=== PATIENT | female | born 1945 | race Caucasian/White ===

== ENCOUNTER 2016-03-03 | Inpatient (IN) | END 2017-03-02 23:59 | disposition other institution (70) | DRG 189 | DX: J96.10 Chronic respiratory failure, unspecified whether with hypoxia or hypercapnia (principal); G93.40 Encephalopathy, unspecified; R53.2 Functional quadriplegia; D68.59 Other primary thrombophilia; G20 Parkinson's disease; N39.0 Urinary tract infection, site not specified; D45 Polycythemia vera; Z93.0 Tracheostomy status; G93.81 Temporal sclerosis; I69.90 Unspecified sequelae of unspecified cerebrovascular disease; Z93.1 Gastrostomy status; M06.9 Rheumatoid arthritis, unspecified; E03.9 Hypothyroidism, unspecified; K21.9 Gastro-esophageal reflux disease without esophagitis; D63.8 Anemia in other chronic diseases classified elsewhere; Z86.11 Personal history of tuberculosis; Z90.89 Acquired absence of other organs; M81.0 Age-related osteoporosis without current pathological fracture; M65.30 Trigger finger, unspecified finger; E78.1 Pure hyperglyceridemia ==

== ENCOUNTER 2017-03-03 | Inpatient (IN) | END 2018-03-02 23:59 | disposition still patient (30) | DRG 189 | DX: J96.11 Chronic respiratory failure with hypoxia (principal); R53.2 Functional quadriplegia; J18.9 Pneumonia, unspecified organism; G93.40 Encephalopathy, unspecified; D68.59 Other primary thrombophilia; N39.0 Urinary tract infection, site not specified; G20 Parkinson's disease; D45 Polycythemia vera; Z93.0 Tracheostomy status; G93.81 Temporal sclerosis; Z93.1 Gastrostomy status; M06.9 Rheumatoid arthritis, unspecified; E03.9 Hypothyroidism, unspecified; K21.9 Gastro-esophageal reflux disease without esophagitis; D63.8 Anemia in other chronic diseases classified elsewhere; Z86.11 Personal history of tuberculosis; Z90.89 Acquired absence of other organs; Z51.5 Encounter for palliative care; M81.0 Age-related osteoporosis without current pathological fracture; M65.30 Trigger finger, unspecified finger; E78.1 Pure hyperglyceridemia; E11.9 Type 2 diabetes mellitus without complications; F09 Unspecified mental disorder due to known physiological condition; G89.4 Chronic pain syndrome; I27.20 Pulmonary hypertension, unspecified; I69.398 Other sequelae of cerebral infarction; K52.9 Noninfective gastroenteritis and colitis, unspecified; K80.20 Calculus of gallbladder without cholecystitis without obstruction; R47.02 Dysphasia; R13.10 Dysphagia, unspecified ==

== ENCOUNTER → 2017-12-10 | Outpatient (CLI) | payer OTHER ==
[~2017-12-10] MED LIST: ACET-2154 GT; ACID1TAB13 GT; ALBU2.5V13 NEB; ALEN70TA47 GT; AMIN30LI2 GT; ASCO500T10 GT; CALC-11 GT; CARB-93 GT; COD28PAS TP; DIPH12.56 GT; DIPH30CR2 TP; ENOX40DI SQ; FAMO20TA8 GT; IPRA0.2S6 NEB; LEVO50TA8 GT; MERO500V IV; MULT-1141 GT; NUT.237L30 GT; NYST15CR38 TP; OMEG1CAP GT; PETR368J TP; POLY15DR57 OP; TRIA15CR2 TP
== END | disposition home or self-care (01) ==
LOC: CT 10:24
PROVIDERS: ATTEND Nurse Practitioner Acute Care
DX: K80.20 Calculus of gallbladder without cholecystitis without obstruction (principal); I70.0 Atherosclerosis of aorta; K52.9 Noninfective gastroenteritis and colitis, unspecified; Z93.1 Gastrostomy status

== ENCOUNTER 2018-03-03 | Inpatient (IN) | END 2019-03-02 23:59 | disposition still patient (30) | DRG 189 | DX: J96.11 Chronic respiratory failure with hypoxia (principal); R53.2 Functional quadriplegia; G93.40 Encephalopathy, unspecified; D68.59 Other primary thrombophilia; G93.1 Anoxic brain damage, not elsewhere classified; G20 Parkinson's disease; D45 Polycythemia vera; Z93.0 Tracheostomy status; G93.81 Temporal sclerosis; Z93.1 Gastrostomy status; M06.9 Rheumatoid arthritis, unspecified; E03.9 Hypothyroidism, unspecified; K21.9 Gastro-esophageal reflux disease without esophagitis; D63.8 Anemia in other chronic diseases classified elsewhere; Z86.11 Personal history of tuberculosis; Z90.89 Acquired absence of other organs; Z51.5 Encounter for palliative care; M81.0 Age-related osteoporosis without current pathological fracture; M65.30 Trigger finger, unspecified finger; E78.1 Pure hyperglyceridemia; E11.9 Type 2 diabetes mellitus without complications; F09 Unspecified mental disorder due to known physiological condition; G89.4 Chronic pain syndrome; I27.20 Pulmonary hypertension, unspecified; I69.398 Other sequelae of cerebral infarction; R47.02 Dysphasia; R13.10 Dysphagia, unspecified; K52.9 Noninfective gastroenteritis and colitis, unspecified; K80.20 Calculus of gallbladder without cholecystitis without obstruction; R21 Rash and other nonspecific skin eruption; Z86.61 Personal history of infections of the central nervous system ==

== ENCOUNTER 2019-09-30 11:45 | Day surgery (SDC) | payer OTHER ==
[~2019-09-30 11:45] MED LIST changes: -ALEN70TA47 GT; +ALEN70TA78 GT; -MERO500V IV; +MERO500V21 IV; +POLY15DR31 OP; -POLY15DR57 OP
[2019-09-30] MEDS ORDERED: ETOMIDATE 20 MG/10 ML VIAL IV ONE (11:46)
[2019-09-30] MEDS ORDERED: ESMOLOL HCL 100 MG/10 ML VIAL IV ONE (11:46)
[2019-09-30] MEDS ORDERED: IV NORMAL SALINE 1000 ML BAG IV ONE (11:46)
== END 2019-09-30 14:05 | disposition still patient (30) ==
LOC: DS 11:45
PROVIDERS: ATTEND Internal Medicine
DX: Z43.1 Encounter for attention to gastrostomy (principal); I50.9 Heart failure, unspecified; F32.9 Major depressive disorder, single episode, unspecified; E11.9 Type 2 diabetes mellitus without complications; M10.9 Gout, unspecified; M06.9 Rheumatoid arthritis, unspecified; Z79.899 Other long term (current) drug therapy; Z87.440 Personal history of urinary (tract) infections; Z98.890 Other specified postprocedural states; Z88.1 Allergy status to other antibiotic agents; Z88.8 Allergy status to other drugs, medicaments and biological substances
CPT/HCPCS: 43246; J3490 ×2; 43761; A4217; J7030

== ENCOUNTER → 2020-03-02 23:59 | Inpatient (IN) | payer OTHER ==
[2019-03-04 08:00] VITALS: BP 138/50
--- NOTE | 2019-03-04 11:27 | NUR ---
SW notified patient's daughter Kimberlee and son Adalberto via email that the next IDT meeting for the patient has been scheduled for 03/09/2019 at 11am.
[2019-03-04] MEDS: diphenhydrAMINE 25 MG/10 ML UDC NG PRN (14:23)
--- NOTE | 2019-03-04 16:43 | NUR ---
SW sent patient's daughter Kimberlee and son Adalberto an email asking them to let this SW know when they can come in to meet with this SW in order to sign patient's annual admission paperwork. SW will wait to hear from them, and if not will follow-up again.
[2019-03-04] MEDS: POLYVINYL ALCOHOL OPHT DROPS 15 ML BOTTLE EACHEYE SCH ×2 (16:52→21:44)
[2019-03-04] MEDS: ALBUTEROL SULFATE 2.5 MG/3 ML NEBU NEB SCH (19:36)
[2019-03-04] MEDS: IPRATROPIUM BROMIDE 0.5 MG/2.5 ML NEBU NEB SCH (19:36)
[2019-03-04 20:00] VITALS: BP 123/58
[2019-03-04] MEDS: HYDROGEN PEROXIDE 3% 118 ML BOTTLE TP SCH (21:04)
[2019-03-04] MEDS: MINERAL OIL/PETROLAT OPHT OINT 3.5 GM TUBE EACHEYE SCH (21:44)
[2019-03-04] MEDS: SACCHAROMYCES BOULARDII GT SCH (21:45)
[2019-03-04] MEDS: COD LIVER OIL/ZINC OXIDE OINT 113 GM TUBE TP SCH (21:45)
[2019-03-04] MEDS: PROTEIN SUPPLEMENT (PROSTAT) 30 ML LIQUID GT SCH (21:45)
[2019-03-04] MEDS: CARBIDOPA/LEVODOPA 25-100MG TABLET GT SCH (21:45)
[2019-03-04] MEDS: CALCIUM CARB/VITAMIN D 600-400 MG TABLET GT SCH (21:56)
[2019-03-05] MEDS: POLYVINYL ALCOHOL OPHT DROPS 15 ML BOTTLE EACHEYE SCH ×6 (01:00→21:04)
[2019-03-05] MEDS: IPRATROPIUM BROMIDE 0.5 MG/2.5 ML NEBU NEB SCH ×4 (01:27→19:43)
[2019-03-05] MEDS: ALBUTEROL SULFATE 2.5 MG/3 ML NEBU NEB SCH ×4 (01:27→19:43)
[2019-03-05] MEDS: OSMOLITE 1.2 CAL 1,000 ML LIQUID GT PRN (01:45)
[2019-03-05] MEDS: LEVOTHYROXINE SODIUM 50 MCG TABLET GT SCH (05:19)
[2019-03-05] MEDS: CARBIDOPA/LEVODOPA 25-100MG TABLET GT SCH ×3 (05:19→21:04)
[2019-03-05] MEDS: FAMOTIDINE 20 MG TABLET GT SCH (06:34)
[2019-03-05 08:05] VITALS: BP 118/56
[2019-03-05] MEDS: CALCIUM CARB/VITAMIN D 600-400 MG TABLET GT SCH ×2 (08:27→21:04)
[2019-03-05] MEDS: COD LIVER OIL/ZINC OXIDE OINT 113 GM TUBE TP SCH ×2 (08:30→21:04)
[2019-03-05] MEDS: ENOXAPARIN SODIUM 30 MG/0.3 ML DISP.SYRIN SUBCUT SCH (08:30)
[2019-03-05] MEDS: HYDROGEN PEROXIDE 3% 118 ML BOTTLE TP SCH ×2 (09:54→20:18)
[2019-03-05 20:00] VITALS: BP 124/56
[2019-03-05] MEDS: MINERAL OIL/PETROLAT OPHT OINT 3.5 GM TUBE EACHEYE SCH (21:04)
[2019-03-05] MEDS: PROTEIN SUPPLEMENT (PROSTAT) 30 ML LIQUID GT SCH (21:04)
[2019-03-05] MEDS: SACCHAROMYCES BOULARDII GT SCH (21:04)
[2019-03-06] MEDS: POLYVINYL ALCOHOL OPHT DROPS 15 ML BOTTLE EACHEYE SCH ×6 (01:00→21:14)
[2019-03-06] MEDS: IPRATROPIUM BROMIDE 0.5 MG/2.5 ML NEBU NEB SCH ×4 (01:38→20:01)
[2019-03-06] MEDS: ALBUTEROL SULFATE 2.5 MG/3 ML NEBU NEB SCH ×4 (01:38→20:01)
[2019-03-06] MEDS: OSMOLITE 1.2 CAL 1,000 ML LIQUID GT PRN (03:00)
[2019-03-06] MEDS: CARBIDOPA/LEVODOPA 25-100MG TABLET GT SCH ×3 (05:10→21:15)
[2019-03-06] MEDS: LEVOTHYROXINE SODIUM 50 MCG TABLET GT SCH (05:10)
[2019-03-06] MEDS: FAMOTIDINE 20 MG TABLET GT SCH (06:31)
[2019-03-06] MEDS: CALCIUM CARB/VITAMIN D 600-400 MG TABLET GT SCH ×2 (08:04→21:14)
[2019-03-06] MEDS: COD LIVER OIL/ZINC OXIDE OINT 113 GM TUBE TP SCH ×2 (08:05→21:15)
[2019-03-06] MEDS: ENOXAPARIN SODIUM 30 MG/0.3 ML DISP.SYRIN SUBCUT SCH (08:05)
[2019-03-06 08:06] VITALS: BP 127/58
[2019-03-06] MEDS: HYDROGEN PEROXIDE 3% 118 ML BOTTLE TP SCH ×2 (09:00→20:01)
[2019-03-06 20:12] VITALS: BP 118/59
[2019-03-06] MEDS: MINERAL OIL/PETROLAT OPHT OINT 3.5 GM TUBE EACHEYE SCH (21:14)
[2019-03-06] MEDS: PROTEIN SUPPLEMENT (PROSTAT) 30 ML LIQUID GT SCH (21:14)
[2019-03-06] MEDS: SACCHAROMYCES BOULARDII GT SCH (21:14)
[2019-03-07] MEDS: POLYVINYL ALCOHOL OPHT DROPS 15 ML BOTTLE EACHEYE SCH ×6 (01:00→20:50)
[2019-03-07] MEDS: IPRATROPIUM BROMIDE 0.5 MG/2.5 ML NEBU NEB SCH ×4 (01:25→19:34)
[2019-03-07] MEDS: ALBUTEROL SULFATE 2.5 MG/3 ML NEBU NEB SCH ×4 (01:25→19:34)
[2019-03-07] MEDS: OSMOLITE 1.2 CAL 1,000 ML LIQUID GT PRN (02:30)
[2019-03-07] MEDS: CARBIDOPA/LEVODOPA 25-100MG TABLET GT SCH ×3 (05:59→22:11)
[2019-03-07] MEDS: LEVOTHYROXINE SODIUM 50 MCG TABLET GT SCH (05:59)
[2019-03-07] MEDS: FAMOTIDINE 20 MG TABLET GT SCH (05:59)
[2019-03-07 08:06] VITALS: BP 114/64
[2019-03-07] MEDS: HYDROGEN PEROXIDE 3% 118 ML BOTTLE TP SCH ×2 (09:00→20:05)
[2019-03-07] MEDS: COD LIVER OIL/ZINC OXIDE OINT 113 GM TUBE TP SCH ×2 (09:23→20:52)
[2019-03-07] MEDS: CALCIUM CARB/VITAMIN D 600-400 MG TABLET GT SCH ×2 (09:23→20:50)
[2019-03-07] MEDS: ENOXAPARIN SODIUM 30 MG/0.3 ML DISP.SYRIN SUBCUT SCH (09:23)
[2019-03-07 20:35] VITALS: BP 130/51
[2019-03-07] MEDS: MINERAL OIL/PETROLAT OPHT OINT 3.5 GM TUBE EACHEYE SCH (20:50)
[2019-03-07] MEDS: SACCHAROMYCES BOULARDII GT SCH (20:51)
[2019-03-07] MEDS: PROTEIN SUPPLEMENT (PROSTAT) 30 ML LIQUID GT SCH (20:52)
[2019-03-08] MEDS: POLYVINYL ALCOHOL OPHT DROPS 15 ML BOTTLE EACHEYE SCH ×6 (01:11→20:31)
[2019-03-08] MEDS: OSMOLITE 1.2 CAL 1,000 ML LIQUID GT PRN (01:12)
[2019-03-08] MEDS: ALBUTEROL SULFATE 2.5 MG/3 ML NEBU NEB SCH ×4 (01:21→19:12)
[2019-03-08] MEDS: IPRATROPIUM BROMIDE 0.5 MG/2.5 ML NEBU NEB SCH ×4 (01:21→19:12)
[2019-03-08] MEDS: FAMOTIDINE 20 MG TABLET GT SCH (05:49)
[2019-03-08] MEDS: LEVOTHYROXINE SODIUM 50 MCG TABLET GT SCH (05:49)
[2019-03-08] MEDS: CARBIDOPA/LEVODOPA 25-100MG TABLET GT SCH ×3 (05:49→21:00)
[2019-03-08 08:00] VITALS: BP 127/80
[2019-03-08] MEDS: CALCIUM CARB/VITAMIN D 600-400 MG TABLET GT SCH ×2 (08:22→20:31)
[2019-03-08] MEDS: COD LIVER OIL/ZINC OXIDE OINT 113 GM TUBE TP SCH ×2 (08:24→20:33)
[2019-03-08] MEDS: ENOXAPARIN SODIUM 30 MG/0.3 ML DISP.SYRIN SUBCUT SCH (08:24)
[2019-03-08] MEDS: HYDROGEN PEROXIDE 3% 118 ML BOTTLE TP SCH ×2 (08:54→21:21)
[2019-03-08 20:29] VITALS: BP 126/56
[2019-03-08] MEDS: MINERAL OIL/PETROLAT OPHT OINT 3.5 GM TUBE EACHEYE SCH (20:31)
[2019-03-08] MEDS: PROTEIN SUPPLEMENT (PROSTAT) 30 ML LIQUID GT SCH (20:33)
[2019-03-08] MEDS: SACCHAROMYCES BOULARDII GT SCH (20:33)
[2019-03-09] MEDS: POLYVINYL ALCOHOL OPHT DROPS 15 ML BOTTLE EACHEYE SCH ×6 (01:00→21:15)
[2019-03-09] MEDS: IPRATROPIUM BROMIDE 0.5 MG/2.5 ML NEBU NEB SCH ×4 (01:10→18:20)
[2019-03-09] MEDS: ALBUTEROL SULFATE 2.5 MG/3 ML NEBU NEB SCH ×4 (01:10→18:20)
[2019-03-09] MEDS: OSMOLITE 1.2 CAL 1,000 ML LIQUID GT PRN (03:30)
[2019-03-09] MEDS: FAMOTIDINE 20 MG TABLET GT SCH (05:35)
[2019-03-09] MEDS: CARBIDOPA/LEVODOPA 25-100MG TABLET GT SCH ×3 (05:35→21:10)
[2019-03-09] MEDS: LEVOTHYROXINE SODIUM 50 MCG TABLET GT SCH (05:35)
[2019-03-09 08:13] VITALS: BP 135/61
[2019-03-09] MEDS: CALCIUM CARB/VITAMIN D 600-400 MG TABLET GT SCH ×2 (08:54→21:15)
[2019-03-09] MEDS: ENOXAPARIN SODIUM 30 MG/0.3 ML DISP.SYRIN SUBCUT SCH (08:55)
[2019-03-09] MEDS: COD LIVER OIL/ZINC OXIDE OINT 113 GM TUBE TP SCH ×2 (08:55→21:10)
[2019-03-09] MEDS: HYDROGEN PEROXIDE 3% 118 ML BOTTLE TP SCH ×2 (09:25→20:25)
--- NOTE | 2019-03-09 13:45 | NUR ---
Pharmacy Update from Today's 03/09/19 IDT Meeting: VS: Temp 97.4 BP 135/61 HR 79 LABS: (from 01/18/19, no new labs) Wbc 6.5 H/H 14.4/43.5 Plt 193 Na 141 K 4.4 Cl 105 CO2 29 BUN/SCr 16/0.6 BS 98 Ca 8.7 MEDICATION USE REVIEWED: > Pt not on any anti-psych or anti-seizure medications > Lovenox 30mg daily for DVT Prophylaxis. No bleeding episodes reported. Last plt 172 > On Synthroid 50mcg daily, last TSH 2.215 (0.358-3.740) on 01/18/19. > Pt on famotidine 20mg daily since 04/07/18, ok per renal function > Pt on Binosto 70mg weekly for osteoporosis since 04/15/18. > PRN MED USAGE: (Dec) Tylenol for pain used x 1 Tylenol for temp used x 0 Artificial Tears used x0 (per Md, not to d/c despite lack of use as requested by pt family) Imodium used x 0 Benadryl used x 8 NEW ORDERS NOTED: > NA Pt was reviewed and discussed in depth, no medication issues at this time and all changes noted per staff. No further recs per rx at this time, remains stable on current regimen. Will continue to monitor.
--- NOTE | 2019-03-09 16:16 | NUR ---
INTERDISCIPLINARY PLAN OF CARE CONFERENCE was held today. Patient's son Adalberto stated he would attend the meeting, but was unable to attend. Dr. Yu and the Interdisciplinary Team reviewed the current plan of care in detail. RN reported on patient's current medical condition and current oral treatment. No major changes were reported at this time. See RN IDT conference notes. See also all other disciplines IDT notes and physician's progress notes for additional details.
--- NOTE | 2019-03-09 16:18 | NUR ---
12:15pm: Patient's son Adalberto arrived to the hospital, and met with this SW. SW reviewed all annual admission forms with Adalberto and obtained signatures on all the admission paperwork for patient's new chart. The paperwork included: Conditions of Admission, Patient Rights Acknowledgement, An Important Message from Medicare about your Rights, Documentation of Preferred Intensity of Care, Voluntary Prior Express Consent Form, Race and Ethnicity Patient Self-Identification, and the [facility] Agreement. MARINO offered Adalberto a copy of the signed forms, and Adalberto declined stating that they have copies from previous signing. For assessment/quarterly information, see patient's previous chart #[id number].
[2019-03-09 20:00] VITALS: BP 119/53
[2019-03-09] MEDS: PROTEIN SUPPLEMENT (PROSTAT) 30 ML LIQUID GT SCH (21:10)
[2019-03-09] MEDS: SACCHAROMYCES BOULARDII GT SCH (21:15)
[2019-03-09] MEDS: MINERAL OIL/PETROLAT OPHT OINT 3.5 GM TUBE EACHEYE SCH (21:15)
[2019-03-10] MEDS: POLYVINYL ALCOHOL OPHT DROPS 15 ML BOTTLE EACHEYE SCH ×6 (01:19→21:15)
[2019-03-10] MEDS: ALBUTEROL SULFATE 2.5 MG/3 ML NEBU NEB SCH ×4 (01:48→18:53)
[2019-03-10] MEDS: IPRATROPIUM BROMIDE 0.5 MG/2.5 ML NEBU NEB SCH ×4 (01:48→18:53)
[2019-03-10] MEDS: OSMOLITE 1.2 CAL 1,000 ML LIQUID GT PRN (02:30)
[2019-03-10] MEDS: FAMOTIDINE 20 MG TABLET GT SCH (05:11)
[2019-03-10] MEDS: LEVOTHYROXINE SODIUM 50 MCG TABLET GT SCH (05:11)
[2019-03-10] MEDS: ALENDRONATE GT SCH (05:11)
[2019-03-10] MEDS: CARBIDOPA/LEVODOPA 25-100MG TABLET GT SCH ×3 (05:11→21:17)
[2019-03-10 08:00] VITALS: BP 122/44
[2019-03-10] MEDS: CALCIUM CARB/VITAMIN D 600-400 MG TABLET GT SCH ×2 (08:13→21:15)
[2019-03-10] MEDS: COD LIVER OIL/ZINC OXIDE OINT 113 GM TUBE TP SCH ×2 (08:14→21:16)
[2019-03-10] MEDS: ENOXAPARIN SODIUM 30 MG/0.3 ML DISP.SYRIN SUBCUT SCH (08:14)
[2019-03-10] MEDS: HYDROGEN PEROXIDE 3% 118 ML BOTTLE TP SCH ×2 (09:00→18:53)
--- NOTE | 2019-03-10 14:58 | NUR ---
Seen and examined by Josi Rodriguez ,no new orders noted.
[2019-03-10] MEDS: MINERAL OIL/PETROLAT OPHT OINT 3.5 GM TUBE EACHEYE SCH (21:15)
[2019-03-10] MEDS: SACCHAROMYCES BOULARDII GT SCH (21:15)
[2019-03-10] MEDS: PROTEIN SUPPLEMENT (PROSTAT) 30 ML LIQUID GT SCH (21:16)
[2019-03-10] MEDS: diphenhydrAMINE 25 MG/10 ML UDC NG PRN (21:28)
[2019-03-10 22:58] VITALS: BP 121/60
[2019-03-11] MEDS: ALBUTEROL SULFATE 2.5 MG/3 ML NEBU NEB SCH ×4 (00:36→19:34)
[2019-03-11] MEDS: IPRATROPIUM BROMIDE 0.5 MG/2.5 ML NEBU NEB SCH ×4 (00:36→19:34)
[2019-03-11] MEDS: POLYVINYL ALCOHOL OPHT DROPS 15 ML BOTTLE EACHEYE SCH ×6 (00:56→20:41)
[2019-03-11] MEDS: OSMOLITE 1.2 CAL 1,000 ML LIQUID GT PRN (04:45)
[2019-03-11] MEDS: FAMOTIDINE 20 MG TABLET GT SCH (05:01)
[2019-03-11] MEDS: CARBIDOPA/LEVODOPA 25-100MG TABLET GT SCH ×3 (05:01→21:34)
[2019-03-11] MEDS: LEVOTHYROXINE SODIUM 50 MCG TABLET GT SCH (05:01)
[2019-03-11 08:00] VITALS: BP 129/60
[2019-03-11] MEDS: HYDROGEN PEROXIDE 3% 118 ML BOTTLE TP SCH ×2 (08:05→20:22)
[2019-03-11] MEDS: ENOXAPARIN SODIUM 30 MG/0.3 ML DISP.SYRIN SUBCUT SCH (08:20)
[2019-03-11] MEDS: COD LIVER OIL/ZINC OXIDE OINT 113 GM TUBE TP SCH ×2 (08:20→20:41)
[2019-03-11] MEDS: CALCIUM CARB/VITAMIN D 600-400 MG TABLET GT SCH ×2 (08:20→20:41)
--- NOTE | 2019-03-11 16:00 | NUR ---
SEEN AND EXAMINED BY DR. ZARATE AND WITH NNO.
[2019-03-11] MEDS: MINERAL OIL/PETROLAT OPHT OINT 3.5 GM TUBE EACHEYE SCH (20:41)
[2019-03-11] MEDS: SACCHAROMYCES BOULARDII GT SCH (20:41)
[2019-03-11] MEDS: PROTEIN SUPPLEMENT (PROSTAT) 30 ML LIQUID GT SCH (20:41)
[2019-03-11 22:23] VITALS: BP 119/64
[2019-03-12] MEDS: POLYVINYL ALCOHOL OPHT DROPS 15 ML BOTTLE EACHEYE SCH ×6 (01:07→20:41)
[2019-03-12] MEDS: IPRATROPIUM BROMIDE 0.5 MG/2.5 ML NEBU NEB SCH ×4 (01:22→20:25)
[2019-03-12] MEDS: ALBUTEROL SULFATE 2.5 MG/3 ML NEBU NEB SCH ×4 (01:22→20:25)
[2019-03-12] MEDS: OSMOLITE 1.2 CAL 1,000 ML LIQUID GT PRN (02:13)
[2019-03-12] MEDS: CARBIDOPA/LEVODOPA 25-100MG TABLET GT SCH ×3 (05:06→21:30)
[2019-03-12] MEDS: LEVOTHYROXINE SODIUM 50 MCG TABLET GT SCH (05:06)
[2019-03-12] MEDS: FAMOTIDINE 20 MG TABLET GT SCH (06:16)
[2019-03-12] MEDS: HYDROGEN PEROXIDE 3% 118 ML BOTTLE TP SCH ×2 (09:30→20:25)
[2019-03-12] MEDS: ENOXAPARIN SODIUM 30 MG/0.3 ML DISP.SYRIN SUBCUT SCH (09:49)
[2019-03-12] MEDS: CALCIUM CARB/VITAMIN D 600-400 MG TABLET GT SCH ×2 (09:49→20:41)
[2019-03-12] MEDS: COD LIVER OIL/ZINC OXIDE OINT 113 GM TUBE TP SCH ×2 (09:49→20:42)
[2019-03-12 11:11] VITALS: BP 119/53
[2019-03-12] MEDS: SACCHAROMYCES BOULARDII GT SCH (20:41)
[2019-03-12] MEDS: MINERAL OIL/PETROLAT OPHT OINT 3.5 GM TUBE EACHEYE SCH (20:41)
[2019-03-12] MEDS: PROTEIN SUPPLEMENT (PROSTAT) 30 ML LIQUID GT SCH (20:42)
[2019-03-12 22:08] VITALS: BP 121/54
[2019-03-13] MEDS: ALBUTEROL SULFATE 2.5 MG/3 ML NEBU NEB SCH ×4 (00:44→19:20)
[2019-03-13] MEDS: IPRATROPIUM BROMIDE 0.5 MG/2.5 ML NEBU NEB SCH ×4 (00:44→19:20)
[2019-03-13] MEDS: POLYVINYL ALCOHOL OPHT DROPS 15 ML BOTTLE EACHEYE SCH ×6 (01:06→21:00)
[2019-03-13] MEDS: OSMOLITE 1.2 CAL 1,000 ML LIQUID GT PRN (01:07)
[2019-03-13] MEDS: CARBIDOPA/LEVODOPA 25-100MG TABLET GT SCH ×3 (05:56→22:06)
[2019-03-13] MEDS: FAMOTIDINE 20 MG TABLET GT SCH (05:56)
[2019-03-13] MEDS: LEVOTHYROXINE SODIUM 50 MCG TABLET GT SCH (05:56)
[2019-03-13] MEDS: HYDROGEN PEROXIDE 3% 118 ML BOTTLE TP SCH ×2 (08:06→21:12)
[2019-03-13] MEDS: CALCIUM CARB/VITAMIN D 600-400 MG TABLET GT SCH ×2 (08:57→21:00)
[2019-03-13] MEDS: COD LIVER OIL/ZINC OXIDE OINT 113 GM TUBE TP SCH ×2 (08:57→21:00)
[2019-03-13] MEDS: ENOXAPARIN SODIUM 30 MG/0.3 ML DISP.SYRIN SUBCUT SCH (08:58)
--- NOTE | 2019-03-13 09:45 | NUR ---
SEEN BY DR. FLORES AND WITH NNO.
[2019-03-13 11:03] VITALS: BP 137/74
[2019-03-13] MEDS: PROTEIN SUPPLEMENT (PROSTAT) 30 ML LIQUID GT SCH (21:00)
[2019-03-13] MEDS: MINERAL OIL/PETROLAT OPHT OINT 3.5 GM TUBE EACHEYE SCH (21:00)
[2019-03-13] MEDS: SACCHAROMYCES BOULARDII GT SCH (21:00)
[2019-03-13 22:46] VITALS: BP 121/60
[2019-03-14] MEDS: OSMOLITE 1.2 CAL 1,000 ML LIQUID GT PRN (00:16)
[2019-03-14] MEDS: POLYVINYL ALCOHOL OPHT DROPS 15 ML BOTTLE EACHEYE SCH ×6 (00:16→21:19)
[2019-03-14] MEDS: ALBUTEROL SULFATE 2.5 MG/3 ML NEBU NEB SCH ×4 (00:53→19:48)
[2019-03-14] MEDS: IPRATROPIUM BROMIDE 0.5 MG/2.5 ML NEBU NEB SCH ×4 (00:53→19:48)
[2019-03-14] MEDS: FAMOTIDINE 20 MG TABLET GT SCH (05:30)
[2019-03-14] MEDS: LEVOTHYROXINE SODIUM 50 MCG TABLET GT SCH (05:30)
[2019-03-14] MEDS: CARBIDOPA/LEVODOPA 25-100MG TABLET GT SCH ×3 (05:30→21:22)
[2019-03-14 08:00] VITALS: BP 121/86
[2019-03-14] MEDS: HYDROGEN PEROXIDE 3% 118 ML BOTTLE TP SCH ×2 (09:00→20:29)
[2019-03-14] MEDS: CALCIUM CARB/VITAMIN D 600-400 MG TABLET GT SCH ×2 (09:15→21:20)
[2019-03-14] MEDS: COD LIVER OIL/ZINC OXIDE OINT 113 GM TUBE TP SCH ×2 (09:15→21:22)
[2019-03-14] MEDS: ENOXAPARIN SODIUM 30 MG/0.3 ML DISP.SYRIN SUBCUT SCH (09:16)
[2019-03-14] MEDS: MINERAL OIL/PETROLAT OPHT OINT 3.5 GM TUBE EACHEYE SCH (21:19)
[2019-03-14] MEDS: PROTEIN SUPPLEMENT (PROSTAT) 30 ML LIQUID GT SCH (21:22)
[2019-03-14] MEDS: SACCHAROMYCES BOULARDII GT SCH (21:23)
[2019-03-14 22:50] VITALS: BP 124/52
[2019-03-15] MEDS: POLYVINYL ALCOHOL OPHT DROPS 15 ML BOTTLE EACHEYE SCH ×6 (00:26→20:34)
[2019-03-15] MEDS: IPRATROPIUM BROMIDE 0.5 MG/2.5 ML NEBU NEB SCH ×4 (01:24→19:50)
[2019-03-15] MEDS: ALBUTEROL SULFATE 2.5 MG/3 ML NEBU NEB SCH ×4 (01:24→19:50)
[2019-03-15] MEDS: LEVOTHYROXINE SODIUM 50 MCG TABLET GT SCH (06:11)
[2019-03-15] MEDS: CARBIDOPA/LEVODOPA 25-100MG TABLET GT SCH ×3 (06:11→22:09)
[2019-03-15] MEDS: FAMOTIDINE 20 MG TABLET GT SCH (06:12)
[2019-03-15 08:00] VITALS: BP 125/56
[2019-03-15] MEDS: HYDROGEN PEROXIDE 3% 118 ML BOTTLE TP SCH ×2 (08:19→21:12)
[2019-03-15] MEDS: CALCIUM CARB/VITAMIN D 600-400 MG TABLET GT SCH ×2 (08:57→20:34)
[2019-03-15] MEDS: ENOXAPARIN SODIUM 30 MG/0.3 ML DISP.SYRIN SUBCUT SCH (08:57)
[2019-03-15] MEDS: COD LIVER OIL/ZINC OXIDE OINT 113 GM TUBE TP SCH ×2 (08:58→20:37)
[2019-03-15] MEDS: OSMOLITE 1.2 CAL 1,000 ML LIQUID GT PRN (18:07)
[2019-03-15] MEDS: MINERAL OIL/PETROLAT OPHT OINT 3.5 GM TUBE EACHEYE SCH (20:34)
[2019-03-15] MEDS: SACCHAROMYCES BOULARDII GT SCH (20:36)
[2019-03-15] MEDS: PROTEIN SUPPLEMENT (PROSTAT) 30 ML LIQUID GT SCH (20:36)
[2019-03-15 20:46] VITALS: BP 104/37
[2019-03-16] MEDS: POLYVINYL ALCOHOL OPHT DROPS 15 ML BOTTLE EACHEYE SCH ×6 (01:00→20:54)
[2019-03-16] MEDS: ALBUTEROL SULFATE 2.5 MG/3 ML NEBU NEB SCH ×4 (01:26→19:06)
[2019-03-16] MEDS: IPRATROPIUM BROMIDE 0.5 MG/2.5 ML NEBU NEB SCH ×4 (01:26→19:06)
[2019-03-16] MEDS: CARBIDOPA/LEVODOPA 25-100MG TABLET GT SCH ×3 (05:12→22:11)
[2019-03-16] MEDS: LEVOTHYROXINE SODIUM 50 MCG TABLET GT SCH (05:12)
[2019-03-16] MEDS: FAMOTIDINE 20 MG TABLET GT SCH (05:38)
[2019-03-16 08:00] VITALS: BP 148/58
[2019-03-16] MEDS: CALCIUM CARB/VITAMIN D 600-400 MG TABLET GT SCH ×2 (08:55→20:55)
[2019-03-16] MEDS: ENOXAPARIN SODIUM 30 MG/0.3 ML DISP.SYRIN SUBCUT SCH (08:56)
[2019-03-16] MEDS: COD LIVER OIL/ZINC OXIDE OINT 113 GM TUBE TP SCH ×2 (08:57→20:55)
[2019-03-16] MEDS: HYDROGEN PEROXIDE 3% 118 ML BOTTLE TP SCH ×2 (09:00→21:21)
[2019-03-16] MEDS: OSMOLITE 1.2 CAL 1,000 ML LIQUID GT PRN (14:20)
--- NOTE | 2019-03-16 14:41 | NUR ---
Seen and examined by Josi Rodriguez,no new orders noted.
[2019-03-16] MEDS: diphenhydrAMINE 25 MG/10 ML UDC NG PRN (15:05)
[2019-03-16 20:00] VITALS: BP 124/63
[2019-03-16] MEDS: MINERAL OIL/PETROLAT OPHT OINT 3.5 GM TUBE EACHEYE SCH (20:54)
[2019-03-16] MEDS: PROTEIN SUPPLEMENT (PROSTAT) 30 ML LIQUID GT SCH (20:55)
[2019-03-16] MEDS: SACCHAROMYCES BOULARDII GT SCH (20:55)
[2019-03-17] MEDS: ALBUTEROL SULFATE 2.5 MG/3 ML NEBU NEB SCH ×4 (00:49→19:47)
[2019-03-17] MEDS: IPRATROPIUM BROMIDE 0.5 MG/2.5 ML NEBU NEB SCH ×4 (00:49→19:47)
[2019-03-17] MEDS: POLYVINYL ALCOHOL OPHT DROPS 15 ML BOTTLE EACHEYE SCH ×6 (01:00→21:12)
[2019-03-17] MEDS: ALENDRONATE GT SCH (06:24)
[2019-03-17] MEDS: CARBIDOPA/LEVODOPA 25-100MG TABLET GT SCH ×3 (06:24→21:14)
[2019-03-17] MEDS: LEVOTHYROXINE SODIUM 50 MCG TABLET GT SCH (06:24)
[2019-03-17] MEDS: FAMOTIDINE 20 MG TABLET GT SCH (06:25)
[2019-03-17 08:00] VITALS: BP 125/55
[2019-03-17] MEDS: CALCIUM CARB/VITAMIN D 600-400 MG TABLET GT SCH ×2 (08:14→21:13)
[2019-03-17] MEDS: COD LIVER OIL/ZINC OXIDE OINT 113 GM TUBE TP SCH ×2 (08:15→21:14)
[2019-03-17] MEDS: ENOXAPARIN SODIUM 30 MG/0.3 ML DISP.SYRIN SUBCUT SCH (08:15)
[2019-03-17] MEDS: HYDROGEN PEROXIDE 3% 118 ML BOTTLE TP SCH ×2 (09:00→21:13)
[2019-03-17 20:00] VITALS: BP 98/65
[2019-03-17] MEDS: MINERAL OIL/PETROLAT OPHT OINT 3.5 GM TUBE EACHEYE SCH (21:13)
[2019-03-17] MEDS: PROTEIN SUPPLEMENT (PROSTAT) 30 ML LIQUID GT SCH (21:14)
[2019-03-17] MEDS: SACCHAROMYCES BOULARDII GT SCH (21:14)
[2019-03-18] MEDS: POLYVINYL ALCOHOL OPHT DROPS 15 ML BOTTLE EACHEYE SCH ×6 (01:00→20:35)
[2019-03-18] MEDS: IPRATROPIUM BROMIDE 0.5 MG/2.5 ML NEBU NEB SCH ×4 (01:24→19:48)
[2019-03-18] MEDS: ALBUTEROL SULFATE 2.5 MG/3 ML NEBU NEB SCH ×4 (01:24→19:49)
[2019-03-18] MEDS: FAMOTIDINE 20 MG TABLET GT SCH (05:34)
[2019-03-18] MEDS: CARBIDOPA/LEVODOPA 25-100MG TABLET GT SCH ×3 (05:34→21:00)
[2019-03-18] MEDS: LEVOTHYROXINE SODIUM 50 MCG TABLET GT SCH (05:34)
[2019-03-18] MEDS: OSMOLITE 1.2 CAL 1,000 ML LIQUID GT PRN (06:38)
[2019-03-18] MEDS: HYDROGEN PEROXIDE 3% 118 ML BOTTLE TP SCH ×2 (07:21→21:18)
[2019-03-18 08:30] VITALS: BP 111/43
[2019-03-18] MEDS: CALCIUM CARB/VITAMIN D 600-400 MG TABLET GT SCH ×2 (09:06→20:35)
[2019-03-18] MEDS: ENOXAPARIN SODIUM 30 MG/0.3 ML DISP.SYRIN SUBCUT SCH (09:08)
[2019-03-18] MEDS: COD LIVER OIL/ZINC OXIDE OINT 113 GM TUBE TP SCH ×2 (09:08→20:36)
[2019-03-18 20:00] VITALS: BP 125/64
[2019-03-18] MEDS: MINERAL OIL/PETROLAT OPHT OINT 3.5 GM TUBE EACHEYE SCH (20:35)
[2019-03-18] MEDS: SACCHAROMYCES BOULARDII GT SCH (20:35)
[2019-03-18] MEDS: PROTEIN SUPPLEMENT (PROSTAT) 30 ML LIQUID GT SCH (20:35)
[2019-03-19] MEDS: POLYVINYL ALCOHOL OPHT DROPS 15 ML BOTTLE EACHEYE SCH ×6 (01:00→20:42)
[2019-03-19] MEDS: IPRATROPIUM BROMIDE 0.5 MG/2.5 ML NEBU NEB SCH ×4 (01:24→19:02)
[2019-03-19] MEDS: ALBUTEROL SULFATE 2.5 MG/3 ML NEBU NEB SCH ×4 (01:24→19:02)
[2019-03-19] MEDS: OSMOLITE 1.2 CAL 1,000 ML LIQUID GT PRN ×2 (02:30→23:07)
[2019-03-19] MEDS: CARBIDOPA/LEVODOPA 25-100MG TABLET GT SCH ×3 (05:01→21:11)
[2019-03-19] MEDS: LEVOTHYROXINE SODIUM 50 MCG TABLET GT SCH (05:01)
[2019-03-19] MEDS: FAMOTIDINE 20 MG TABLET GT SCH (06:18)
[2019-03-19] MEDS: HYDROGEN PEROXIDE 3% 118 ML BOTTLE TP SCH ×2 (07:34→19:02)
[2019-03-19 08:30] VITALS: BP 139/57
[2019-03-19] MEDS: CALCIUM CARB/VITAMIN D 600-400 MG TABLET GT SCH ×2 (09:12→20:42)
[2019-03-19] MEDS: ENOXAPARIN SODIUM 30 MG/0.3 ML DISP.SYRIN SUBCUT SCH (09:14)
[2019-03-19] MEDS: COD LIVER OIL/ZINC OXIDE OINT 113 GM TUBE TP SCH ×2 (09:14→20:42)
[2019-03-19] MEDS: PROTEIN SUPPLEMENT (PROSTAT) 30 ML LIQUID GT SCH (20:42)
[2019-03-19] MEDS: SACCHAROMYCES BOULARDII GT SCH (20:42)
[2019-03-19] MEDS: MINERAL OIL/PETROLAT OPHT OINT 3.5 GM TUBE EACHEYE SCH (21:11)
[2019-03-19 22:23] VITALS: BP 123/58
[2019-03-20] MEDS: POLYVINYL ALCOHOL OPHT DROPS 15 ML BOTTLE EACHEYE SCH ×6 (00:10→20:41)
[2019-03-20] MEDS: IPRATROPIUM BROMIDE 0.5 MG/2.5 ML NEBU NEB SCH ×4 (00:33→19:40)
[2019-03-20] MEDS: ALBUTEROL SULFATE 2.5 MG/3 ML NEBU NEB SCH ×4 (00:33→19:40)
[2019-03-20] MEDS: CARBIDOPA/LEVODOPA 25-100MG TABLET GT SCH ×3 (05:49→21:19)
[2019-03-20] MEDS: LEVOTHYROXINE SODIUM 50 MCG TABLET GT SCH (05:49)
[2019-03-20] MEDS: FAMOTIDINE 20 MG TABLET GT SCH (05:49)
[2019-03-20 08:05] VITALS: BP 128/89
[2019-03-20] MEDS: ENOXAPARIN SODIUM 30 MG/0.3 ML DISP.SYRIN SUBCUT SCH (09:15)
[2019-03-20] MEDS: CALCIUM CARB/VITAMIN D 600-400 MG TABLET GT SCH ×2 (09:15→20:41)
[2019-03-20] MEDS: COD LIVER OIL/ZINC OXIDE OINT 113 GM TUBE TP SCH ×2 (09:16→20:41)
[2019-03-20] MEDS: HYDROGEN PEROXIDE 3% 118 ML BOTTLE TP SCH ×2 (09:20→20:50)
[2019-03-20] MEDS: SACCHAROMYCES BOULARDII GT SCH (20:41)
[2019-03-20] MEDS: PROTEIN SUPPLEMENT (PROSTAT) 30 ML LIQUID GT SCH (20:41)
[2019-03-20] MEDS: MINERAL OIL/PETROLAT OPHT OINT 3.5 GM TUBE EACHEYE SCH (21:19)
[2019-03-20 22:16] VITALS: BP 119/59
[2019-03-21] MEDS: POLYVINYL ALCOHOL OPHT DROPS 15 ML BOTTLE EACHEYE SCH ×6 (01:05→20:42)
[2019-03-21] MEDS: ALBUTEROL SULFATE 2.5 MG/3 ML NEBU NEB SCH ×4 (01:25→19:37)
[2019-03-21] MEDS: IPRATROPIUM BROMIDE 0.5 MG/2.5 ML NEBU NEB SCH ×4 (01:25→19:37)
[2019-03-21] MEDS: FAMOTIDINE 20 MG TABLET GT SCH (05:31)
[2019-03-21] MEDS: CARBIDOPA/LEVODOPA 25-100MG TABLET GT SCH ×3 (05:31→21:05)
[2019-03-21] MEDS: LEVOTHYROXINE SODIUM 50 MCG TABLET GT SCH (05:31)
[2019-03-21] MEDS: HYDROGEN PEROXIDE 3% 118 ML BOTTLE TP SCH ×2 (08:04→21:11)
[2019-03-21 08:05] VITALS: BP 134/52
[2019-03-21] MEDS: CALCIUM CARB/VITAMIN D 600-400 MG TABLET GT SCH ×2 (08:45→20:42)
[2019-03-21] MEDS: COD LIVER OIL/ZINC OXIDE OINT 113 GM TUBE TP SCH ×2 (08:46→20:42)
[2019-03-21] MEDS: ENOXAPARIN SODIUM 30 MG/0.3 ML DISP.SYRIN SUBCUT SCH (08:46)
[2019-03-21] MEDS: PROTEIN SUPPLEMENT (PROSTAT) 30 ML LIQUID GT SCH (20:42)
[2019-03-21] MEDS: SACCHAROMYCES BOULARDII GT SCH (20:42)
[2019-03-21] MEDS: MINERAL OIL/PETROLAT OPHT OINT 3.5 GM TUBE EACHEYE SCH (21:05)
[2019-03-21 22:57] VITALS: BP 122/61
[2019-03-22] MEDS: POLYVINYL ALCOHOL OPHT DROPS 15 ML BOTTLE EACHEYE SCH ×6 (01:08→20:27)
[2019-03-22] MEDS: IPRATROPIUM BROMIDE 0.5 MG/2.5 ML NEBU NEB SCH ×4 (01:25→19:03)
[2019-03-22] MEDS: ALBUTEROL SULFATE 2.5 MG/3 ML NEBU NEB SCH ×4 (01:25→19:03)
[2019-03-22] MEDS: CARBIDOPA/LEVODOPA 25-100MG TABLET GT SCH ×3 (05:30→21:49)
[2019-03-22] MEDS: LEVOTHYROXINE SODIUM 50 MCG TABLET GT SCH (05:30)
[2019-03-22] MEDS: FAMOTIDINE 20 MG TABLET GT SCH (05:30)
[2019-03-22 08:05] VITALS: BP 122/60
[2019-03-22] MEDS: CALCIUM CARB/VITAMIN D 600-400 MG TABLET GT SCH ×2 (08:22→20:27)
[2019-03-22] MEDS: ENOXAPARIN SODIUM 30 MG/0.3 ML DISP.SYRIN SUBCUT SCH (08:23)
[2019-03-22] MEDS: COD LIVER OIL/ZINC OXIDE OINT 113 GM TUBE TP SCH ×2 (08:23→20:27)
[2019-03-22] MEDS: HYDROGEN PEROXIDE 3% 118 ML BOTTLE TP SCH ×2 (09:30→19:03)
--- NOTE | 2019-03-22 11:17 | NUR ---
SEEN BY TORSTEN FERNANDEZ WITH NO NEW ORDER.
[2019-03-22] MEDS: OSMOLITE 1.2 CAL 1,000 ML LIQUID GT PRN (16:49)
[2019-03-22 20:26] VITALS: BP 119/64
[2019-03-22] MEDS: PROTEIN SUPPLEMENT (PROSTAT) 30 ML LIQUID GT SCH (20:27)
[2019-03-22] MEDS: SACCHAROMYCES BOULARDII GT SCH (20:27)
[2019-03-22] MEDS: MINERAL OIL/PETROLAT OPHT OINT 3.5 GM TUBE EACHEYE SCH (20:27)
[2019-03-23] MEDS: POLYVINYL ALCOHOL OPHT DROPS 15 ML BOTTLE EACHEYE SCH ×6 (00:07→21:11)
[2019-03-23] MEDS: ALBUTEROL SULFATE 2.5 MG/3 ML NEBU NEB SCH ×4 (00:37→19:38)
[2019-03-23] MEDS: IPRATROPIUM BROMIDE 0.5 MG/2.5 ML NEBU NEB SCH ×4 (00:37→19:38)
[2019-03-23] MEDS: LEVOTHYROXINE SODIUM 50 MCG TABLET GT SCH (05:25)
[2019-03-23] MEDS: CARBIDOPA/LEVODOPA 25-100MG TABLET GT SCH ×3 (05:25→21:15)
[2019-03-23] MEDS: FAMOTIDINE 20 MG TABLET GT SCH (05:35)
[2019-03-23 08:29] VITALS: BP 119/59
[2019-03-23] MEDS: CALCIUM CARB/VITAMIN D 600-400 MG TABLET GT SCH ×2 (08:39→21:12)
[2019-03-23] MEDS: ENOXAPARIN SODIUM 30 MG/0.3 ML DISP.SYRIN SUBCUT SCH (08:40)
[2019-03-23] MEDS: COD LIVER OIL/ZINC OXIDE OINT 113 GM TUBE TP SCH ×2 (08:53→21:15)
[2019-03-23] MEDS: HYDROGEN PEROXIDE 3% 118 ML BOTTLE TP SCH ×2 (09:14→21:02)
[2019-03-23] MEDS: OSMOLITE 1.2 CAL 1,000 ML LIQUID GT PRN (16:40)
[2019-03-23 20:00] VITALS: BP 90/68
[2019-03-23] MEDS: MINERAL OIL/PETROLAT OPHT OINT 3.5 GM TUBE EACHEYE SCH (21:12)
[2019-03-23] MEDS: PROTEIN SUPPLEMENT (PROSTAT) 30 ML LIQUID GT SCH (21:15)
[2019-03-23] MEDS: SACCHAROMYCES BOULARDII GT SCH (21:15)
[2019-03-24] MEDS: POLYVINYL ALCOHOL OPHT DROPS 15 ML BOTTLE EACHEYE SCH ×6 (01:00→21:18)
[2019-03-24] MEDS: ALBUTEROL SULFATE 2.5 MG/3 ML NEBU NEB SCH ×4 (01:24→18:46)
[2019-03-24] MEDS: IPRATROPIUM BROMIDE 0.5 MG/2.5 ML NEBU NEB SCH ×4 (01:24→18:45)
[2019-03-24] MEDS: LEVOTHYROXINE SODIUM 50 MCG TABLET GT SCH (06:07)
[2019-03-24] MEDS: FAMOTIDINE 20 MG TABLET GT SCH (06:07)
[2019-03-24] MEDS: CARBIDOPA/LEVODOPA 25-100MG TABLET GT SCH ×3 (06:07→21:19)
[2019-03-24] MEDS: ALENDRONATE GT SCH (06:07)
[2019-03-24 08:00] VITALS: BP 137/56
[2019-03-24] MEDS: HYDROGEN PEROXIDE 3% 118 ML BOTTLE TP SCH ×2 (09:00→18:46)
[2019-03-24] MEDS: COD LIVER OIL/ZINC OXIDE OINT 113 GM TUBE TP SCH ×2 (09:07→21:19)
[2019-03-24] MEDS: CALCIUM CARB/VITAMIN D 600-400 MG TABLET GT SCH ×2 (09:07→21:19)
[2019-03-24] MEDS: ENOXAPARIN SODIUM 30 MG/0.3 ML DISP.SYRIN SUBCUT SCH (09:09)
[2019-03-24] MEDS: OSMOLITE 1.2 CAL 1,000 ML LIQUID GT PRN (15:51)
[2019-03-24 20:50] VITALS: BP 124/56
[2019-03-24] MEDS: MINERAL OIL/PETROLAT OPHT OINT 3.5 GM TUBE EACHEYE SCH (21:18)
[2019-03-24] MEDS: SACCHAROMYCES BOULARDII GT SCH (21:19)
[2019-03-24] MEDS: PROTEIN SUPPLEMENT (PROSTAT) 30 ML LIQUID GT SCH (21:19)
[2019-03-25] MEDS: ALBUTEROL SULFATE 2.5 MG/3 ML NEBU NEB SCH ×4 (00:33→18:48)
[2019-03-25] MEDS: IPRATROPIUM BROMIDE 0.5 MG/2.5 ML NEBU NEB SCH ×4 (00:33→18:48)
[2019-03-25] MEDS: POLYVINYL ALCOHOL OPHT DROPS 15 ML BOTTLE EACHEYE SCH ×6 (01:00→20:57)
[2019-03-25] MEDS: LEVOTHYROXINE SODIUM 50 MCG TABLET GT SCH (06:03)
[2019-03-25] MEDS: CARBIDOPA/LEVODOPA 25-100MG TABLET GT SCH ×3 (06:03→21:01)
[2019-03-25] MEDS: FAMOTIDINE 20 MG TABLET GT SCH (06:04)
[2019-03-25] MEDS: HYDROGEN PEROXIDE 3% 118 ML BOTTLE TP SCH ×2 (07:38→21:00)
[2019-03-25 08:00] VITALS: BP 129/63
[2019-03-25] MEDS: CALCIUM CARB/VITAMIN D 600-400 MG TABLET GT SCH ×2 (08:53→20:57)
[2019-03-25] MEDS: COD LIVER OIL/ZINC OXIDE OINT 113 GM TUBE TP SCH ×2 (08:55→20:58)
[2019-03-25] MEDS: ENOXAPARIN SODIUM 30 MG/0.3 ML DISP.SYRIN SUBCUT SCH (08:55)
[2019-03-25] MEDS: OSMOLITE 1.2 CAL 1,000 ML LIQUID GT PRN (12:22)
[2019-03-25] MEDS: diphenhydrAMINE 25 MG/10 ML UDC NG PRN (15:19)
[2019-03-25 20:51] VITALS: BP 113/56
[2019-03-25] MEDS: SACCHAROMYCES BOULARDII GT SCH (20:57)
[2019-03-25] MEDS: MINERAL OIL/PETROLAT OPHT OINT 3.5 GM TUBE EACHEYE SCH (20:57)
[2019-03-25] MEDS: PROTEIN SUPPLEMENT (PROSTAT) 30 ML LIQUID GT SCH (20:58)
[2019-03-26] MEDS: ALBUTEROL SULFATE 2.5 MG/3 ML NEBU NEB SCH ×4 (00:40→19:29)
[2019-03-26] MEDS: IPRATROPIUM BROMIDE 0.5 MG/2.5 ML NEBU NEB SCH ×4 (00:41→19:29)
[2019-03-26] MEDS: POLYVINYL ALCOHOL OPHT DROPS 15 ML BOTTLE EACHEYE SCH ×6 (01:00→20:37)
[2019-03-26] MEDS: CARBIDOPA/LEVODOPA 25-100MG TABLET GT SCH ×3 (06:01→22:04)
[2019-03-26] MEDS: LEVOTHYROXINE SODIUM 50 MCG TABLET GT SCH (06:01)
[2019-03-26] MEDS: FAMOTIDINE 20 MG TABLET GT SCH (06:01)
[2019-03-26 08:00] VITALS: BP 135/53
[2019-03-26] MEDS: COD LIVER OIL/ZINC OXIDE OINT 113 GM TUBE TP SCH ×2 (08:33→20:37)
[2019-03-26] MEDS: CALCIUM CARB/VITAMIN D 600-400 MG TABLET GT SCH ×2 (08:33→20:37)
[2019-03-26] MEDS: ENOXAPARIN SODIUM 30 MG/0.3 ML DISP.SYRIN SUBCUT SCH (08:34)
[2019-03-26] MEDS: HYDROGEN PEROXIDE 3% 118 ML BOTTLE TP SCH ×2 (09:00→21:09)
[2019-03-26] MEDS: SACCHAROMYCES BOULARDII GT SCH (20:37)
[2019-03-26] MEDS: MINERAL OIL/PETROLAT OPHT OINT 3.5 GM TUBE EACHEYE SCH (20:37)
[2019-03-26] MEDS: PROTEIN SUPPLEMENT (PROSTAT) 30 ML LIQUID GT SCH (20:37)
[2019-03-27] MEDS: POLYVINYL ALCOHOL OPHT DROPS 15 ML BOTTLE EACHEYE SCH ×6 (01:00→21:16)
[2019-03-27] MEDS: ALBUTEROL SULFATE 2.5 MG/3 ML NEBU NEB SCH ×5 (01:40→19:08)
[2019-03-27] MEDS: IPRATROPIUM BROMIDE 0.5 MG/2.5 ML NEBU NEB SCH ×5 (01:40→19:08)
[2019-03-27 02:33] VITALS: BP 119/50
[2019-03-27] MEDS: OSMOLITE 1.2 CAL 1,000 ML LIQUID GT PRN (04:36)
[2019-03-27] MEDS: LEVOTHYROXINE SODIUM 50 MCG TABLET GT SCH (05:54)
[2019-03-27] MEDS: FAMOTIDINE 20 MG TABLET GT SCH (05:54)
[2019-03-27] MEDS: CARBIDOPA/LEVODOPA 25-100MG TABLET GT SCH ×3 (05:54→21:18)
[2019-03-27 08:00] VITALS: BP 130/62
[2019-03-27] MEDS: CALCIUM CARB/VITAMIN D 600-400 MG TABLET GT SCH ×2 (08:14→21:17)
[2019-03-27] MEDS: ENOXAPARIN SODIUM 30 MG/0.3 ML DISP.SYRIN SUBCUT SCH (08:15)
[2019-03-27] MEDS: COD LIVER OIL/ZINC OXIDE OINT 113 GM TUBE TP SCH ×2 (08:16→21:17)
[2019-03-27] MEDS: HYDROGEN PEROXIDE 3% 118 ML BOTTLE TP SCH ×2 (09:00→21:46)
[2019-03-27 20:21] VITALS: BP 132/59
[2019-03-27] MEDS: PROTEIN SUPPLEMENT (PROSTAT) 30 ML LIQUID GT SCH (21:17)
[2019-03-27] MEDS: SACCHAROMYCES BOULARDII GT SCH (21:17)
[2019-03-27] MEDS: MINERAL OIL/PETROLAT OPHT OINT 3.5 GM TUBE EACHEYE SCH (21:17)
[2019-03-28] MEDS: POLYVINYL ALCOHOL OPHT DROPS 15 ML BOTTLE EACHEYE SCH ×6 (01:00→20:48)
[2019-03-28] MEDS: ALBUTEROL SULFATE 2.5 MG/3 ML NEBU NEB SCH ×4 (01:40→19:57)
[2019-03-28] MEDS: IPRATROPIUM BROMIDE 0.5 MG/2.5 ML NEBU NEB SCH ×4 (01:40→19:57)
[2019-03-28] MEDS: LEVOTHYROXINE SODIUM 50 MCG TABLET GT SCH (06:04)
[2019-03-28] MEDS: CARBIDOPA/LEVODOPA 25-100MG TABLET GT SCH ×3 (06:04→22:01)
[2019-03-28] MEDS: FAMOTIDINE 20 MG TABLET GT SCH (06:04)
[2019-03-28 08:00] VITALS: BP 151/55
[2019-03-28] MEDS: ENOXAPARIN SODIUM 30 MG/0.3 ML DISP.SYRIN SUBCUT SCH (08:08)
[2019-03-28] MEDS: CALCIUM CARB/VITAMIN D 600-400 MG TABLET GT SCH ×2 (08:09→20:48)
[2019-03-28] MEDS: COD LIVER OIL/ZINC OXIDE OINT 113 GM TUBE TP SCH ×2 (08:09→20:48)
[2019-03-28] MEDS: HYDROGEN PEROXIDE 3% 118 ML BOTTLE TP SCH ×2 (08:48→20:48)
[2019-03-28] MEDS: diphenhydrAMINE 25 MG/10 ML UDC NG PRN ×2 (09:47→22:02)
[2019-03-28 20:23] VITALS: BP 127/71
[2019-03-28] MEDS: SACCHAROMYCES BOULARDII GT SCH (20:48)
[2019-03-28] MEDS: MINERAL OIL/PETROLAT OPHT OINT 3.5 GM TUBE EACHEYE SCH (20:48)
[2019-03-28] MEDS: PROTEIN SUPPLEMENT (PROSTAT) 30 ML LIQUID GT SCH (20:48)
[2019-03-29] MEDS: ALBUTEROL SULFATE 2.5 MG/3 ML NEBU NEB SCH ×4 (01:19→19:51)
[2019-03-29] MEDS: IPRATROPIUM BROMIDE 0.5 MG/2.5 ML NEBU NEB SCH ×4 (01:19→19:51)
[2019-03-29] MEDS: POLYVINYL ALCOHOL OPHT DROPS 15 ML BOTTLE EACHEYE SCH ×6 (01:32→21:19)
[2019-03-29] MEDS: LEVOTHYROXINE SODIUM 50 MCG TABLET GT SCH (05:19)
[2019-03-29] MEDS: CARBIDOPA/LEVODOPA 25-100MG TABLET GT SCH ×3 (05:19→21:22)
[2019-03-29] MEDS: FAMOTIDINE 20 MG TABLET GT SCH (05:19)
[2019-03-29] MEDS: OSMOLITE 1.2 CAL 1,000 ML LIQUID GT PRN (06:18)
[2019-03-29 08:00] VITALS: BP 104/58
[2019-03-29] MEDS: HYDROGEN PEROXIDE 3% 118 ML BOTTLE TP SCH ×2 (08:11→21:15)
[2019-03-29] MEDS: COD LIVER OIL/ZINC OXIDE OINT 113 GM TUBE TP SCH ×2 (08:29→21:22)
[2019-03-29] MEDS: CALCIUM CARB/VITAMIN D 600-400 MG TABLET GT SCH ×2 (08:29→21:19)
[2019-03-29] MEDS: ENOXAPARIN SODIUM 30 MG/0.3 ML DISP.SYRIN SUBCUT SCH (08:31)
--- NOTE | 2019-03-29 11:00 | NUR ---
SEEN BY DANNIE Bailey AND WITH NNO.
[2019-03-29 20:51] VITALS: BP 135/77
[2019-03-29] MEDS: MINERAL OIL/PETROLAT OPHT OINT 3.5 GM TUBE EACHEYE SCH (21:19)
[2019-03-29] MEDS: SACCHAROMYCES BOULARDII GT SCH (21:22)
[2019-03-29] MEDS: PROTEIN SUPPLEMENT (PROSTAT) 30 ML LIQUID GT SCH (21:22)
--- NOTE | 2019-03-29 23:13 | NUR ---
Seen and examined by Dr. Mayer with new orders for CBC, BMP, Mg and Po4 in am.
[2019-03-30] MEDS: POLYVINYL ALCOHOL OPHT DROPS 15 ML BOTTLE EACHEYE SCH ×6 (01:00→20:56)
[2019-03-30] MEDS: IPRATROPIUM BROMIDE 0.5 MG/2.5 ML NEBU NEB SCH ×4 (01:03→20:40)
[2019-03-30] MEDS: ALBUTEROL SULFATE 2.5 MG/3 ML NEBU NEB SCH ×4 (01:03→20:40)
[2019-03-30] MEDS: CARBIDOPA/LEVODOPA 25-100MG TABLET GT SCH ×3 (06:44→22:00)
[2019-03-30] MEDS: FAMOTIDINE 20 MG TABLET GT SCH (06:44)
[2019-03-30] MEDS: LEVOTHYROXINE SODIUM 50 MCG TABLET GT SCH (06:44)
[2019-03-30] MEDS: OSMOLITE 1.2 CAL 1,000 ML LIQUID GT PRN (07:28)
[2019-03-30 08:00] VITALS: BP 135/61
[2019-03-30 08:46] LABS: BASOPHILS % (AUTO) 0.8 % (0.0-2.0); EOSINOPHILS # (AUTO) 0.2 K/uL (0.0-0.7); EOSINOPHILS % (AUTO) 2.9 % (0.0-7.0); HEMOGLOBIN 14.4 g/dL (10.9-14.3); LYMPHOCYTES # (AUTO) 2.1 K/uL (20.0-40.0); LYMPHOCYTES % (AUTO) 33.2 % (20.5-51.5); MEAN CORPUSCULAR HEMOGLOBIN 30.5 uug (24.7-32.8); MEAN CORPUSCULAR HGB CONC 34 g/dL (32.3-35.6); MEAN CORPUSCULAR VOLUME 90.9 fL (75.5-95.3); MONOCYTES # (AUTO) 0.6 K/uL (2.0-10.0); MONOCYTES % (AUTO) 8.7 % (0.0-11.0); NEUTROPHILS # (AUTO) 3.5 K/uL (1.8-8.9); NEUTROPHILS % (AUTO) 54.4 % (38.5-71.5); PLATELET COUNT (AUTO) 185 K/uL (179-408); RED BLOOD CELL COUNT(AUTO) 4.73 MIL/uL (3.63-4.92); WHITE BLOOD COUNT (AUTO) 6.4 K/uL (3.8-11.8)
[2019-03-30] MEDS: CALCIUM CARB/VITAMIN D 600-400 MG TABLET GT SCH ×2 (08:47→20:58)
[2019-03-30] MEDS: COD LIVER OIL/ZINC OXIDE OINT 113 GM TUBE TP SCH ×2 (08:48→21:04)
[2019-03-30 08:54] LABS: CREATININE 0.7 mg/dL (0.6-1.3); MAGNESIUM 1.9 mg/dL (1.8-2.4); PHOSPHOROUS 3.7 mg/dL (2.5-4.9); POTASSIUM 4.2 mmol/L (3.5-5.1)
[2019-03-30] MEDS: ENOXAPARIN SODIUM 30 MG/0.3 ML DISP.SYRIN SUBCUT SCH (09:00)
[2019-03-30] MEDS: HYDROGEN PEROXIDE 3% 118 ML BOTTLE TP SCH ×2 (09:00→21:33)
--- NOTE | 2019-03-30 11:00 | NUR ---
Seen and examined by Josi Rodriguez,no new orders.
--- NOTE | 2019-03-30 11:15 | NUR ---
SW notified patient's daughter Kimberlee and son Adalberto via email that the next IDT meeting for the patient has been scheduled for 04/06/2019 at 11am.
[2019-03-30 20:19] VITALS: BP 121/70
[2019-03-30] MEDS: SACCHAROMYCES BOULARDII GT SCH (20:58)
[2019-03-30] MEDS: PROTEIN SUPPLEMENT (PROSTAT) 30 ML LIQUID GT SCH (20:58)
[2019-03-30] MEDS: MINERAL OIL/PETROLAT OPHT OINT 3.5 GM TUBE EACHEYE SCH (20:58)
[2019-03-31] MEDS: IPRATROPIUM BROMIDE 0.5 MG/2.5 ML NEBU NEB SCH ×4 (01:12→19:38)
[2019-03-31] MEDS: ALBUTEROL SULFATE 2.5 MG/3 ML NEBU NEB SCH ×4 (01:13→19:38)
[2019-03-31] MEDS: POLYVINYL ALCOHOL OPHT DROPS 15 ML BOTTLE EACHEYE SCH ×6 (01:33→20:43)
[2019-03-31] MEDS: OSMOLITE 1.2 CAL 1,000 ML LIQUID GT PRN (04:30)
[2019-03-31] MEDS: ALENDRONATE GT SCH (06:07)
[2019-03-31] MEDS: LEVOTHYROXINE SODIUM 50 MCG TABLET GT SCH (06:07)
[2019-03-31] MEDS: FAMOTIDINE 20 MG TABLET GT SCH (06:07)
[2019-03-31] MEDS: CARBIDOPA/LEVODOPA 25-100MG TABLET GT SCH ×3 (06:07→22:16)
[2019-03-31 08:00] VITALS: BP 125/62
[2019-03-31] MEDS: COD LIVER OIL/ZINC OXIDE OINT 113 GM TUBE TP SCH ×2 (09:00→20:46)
[2019-03-31] MEDS: HYDROGEN PEROXIDE 3% 118 ML BOTTLE TP SCH ×2 (09:00→21:51)
[2019-03-31] MEDS: CALCIUM CARB/VITAMIN D 600-400 MG TABLET GT SCH ×2 (09:00→20:43)
[2019-03-31] MEDS: ENOXAPARIN SODIUM 30 MG/0.3 ML DISP.SYRIN SUBCUT SCH (09:00)
--- NOTE | 2019-03-31 19:25 | NUR ---
Seen and examined by Dr Yu,no new orders noted.
[2019-03-31] MEDS: MINERAL OIL/PETROLAT OPHT OINT 3.5 GM TUBE EACHEYE SCH (20:43)
[2019-03-31] MEDS: SACCHAROMYCES BOULARDII GT SCH (20:46)
[2019-03-31] MEDS: PROTEIN SUPPLEMENT (PROSTAT) 30 ML LIQUID GT SCH (20:46)
[2019-04-01] MEDS: POLYVINYL ALCOHOL OPHT DROPS 15 ML BOTTLE EACHEYE SCH ×6 (01:00→20:45)
[2019-04-01] MEDS: IPRATROPIUM BROMIDE 0.5 MG/2.5 ML NEBU NEB SCH ×4 (01:15→19:31)
[2019-04-01] MEDS: ALBUTEROL SULFATE 2.5 MG/3 ML NEBU NEB SCH ×4 (01:15→19:31)
[2019-04-01] MEDS: OSMOLITE 1.2 CAL 1,000 ML LIQUID GT PRN (03:37)
[2019-04-01] MEDS: CARBIDOPA/LEVODOPA 25-100MG TABLET GT SCH ×3 (05:18→22:26)
[2019-04-01] MEDS: LEVOTHYROXINE SODIUM 50 MCG TABLET GT SCH (05:18)
[2019-04-01] MEDS: FAMOTIDINE 20 MG TABLET GT SCH (05:56)
[2019-04-01] MEDS: HYDROGEN PEROXIDE 3% 118 ML BOTTLE TP SCH ×2 (07:32→21:14)
[2019-04-01 08:00] VITALS: BP 129/49
[2019-04-01] MEDS: CALCIUM CARB/VITAMIN D 600-400 MG TABLET GT SCH ×2 (09:13→20:45)
[2019-04-01] MEDS: COD LIVER OIL/ZINC OXIDE OINT 113 GM TUBE TP SCH ×2 (09:14→20:46)
[2019-04-01] MEDS: ENOXAPARIN SODIUM 30 MG/0.3 ML DISP.SYRIN SUBCUT SCH (09:14)
[2019-04-01] MEDS: diphenhydrAMINE 25 MG/10 ML UDC NG PRN (17:38)
[2019-04-01 20:00] VITALS: BP 134/62
[2019-04-01] MEDS: MINERAL OIL/PETROLAT OPHT OINT 3.5 GM TUBE EACHEYE SCH (20:45)
[2019-04-01] MEDS: SACCHAROMYCES BOULARDII GT SCH (20:45)
[2019-04-01] MEDS: PROTEIN SUPPLEMENT (PROSTAT) 30 ML LIQUID GT SCH (20:45)
[2019-04-02] MEDS: POLYVINYL ALCOHOL OPHT DROPS 15 ML BOTTLE EACHEYE SCH ×6 (01:00→20:39)
[2019-04-02] MEDS: IPRATROPIUM BROMIDE 0.5 MG/2.5 ML NEBU NEB SCH ×4 (01:41→19:03)
[2019-04-02] MEDS: ALBUTEROL SULFATE 2.5 MG/3 ML NEBU NEB SCH ×4 (01:41→19:03)
[2019-04-02] MEDS: OSMOLITE 1.2 CAL 1,000 ML LIQUID GT PRN (03:48)
[2019-04-02] MEDS: LEVOTHYROXINE SODIUM 50 MCG TABLET GT SCH (05:51)
[2019-04-02] MEDS: CARBIDOPA/LEVODOPA 25-100MG TABLET GT SCH ×3 (05:51→21:02)
[2019-04-02] MEDS: FAMOTIDINE 20 MG TABLET GT SCH (05:51)
[2019-04-02] MEDS: ENOXAPARIN SODIUM 30 MG/0.3 ML DISP.SYRIN SUBCUT SCH (08:04)
[2019-04-02] MEDS: CALCIUM CARB/VITAMIN D 600-400 MG TABLET GT SCH ×2 (08:04→20:39)
[2019-04-02] MEDS: COD LIVER OIL/ZINC OXIDE OINT 113 GM TUBE TP SCH ×2 (08:05→20:39)
[2019-04-02] MEDS: HYDROGEN PEROXIDE 3% 118 ML BOTTLE TP SCH ×2 (09:00→19:03)
[2019-04-02 11:39] VITALS: BP 100/53
[2019-04-02 20:00] VITALS: BP 119/61
[2019-04-02] MEDS: SACCHAROMYCES BOULARDII GT SCH (20:39)
[2019-04-02] MEDS: PROTEIN SUPPLEMENT (PROSTAT) 30 ML LIQUID GT SCH (20:39)
[2019-04-02] MEDS: MINERAL OIL/PETROLAT OPHT OINT 3.5 GM TUBE EACHEYE SCH (21:02)
[2019-04-03] MEDS: IPRATROPIUM BROMIDE 0.5 MG/2.5 ML NEBU NEB SCH ×4 (00:35→21:13)
[2019-04-03] MEDS: ALBUTEROL SULFATE 2.5 MG/3 ML NEBU NEB SCH ×4 (00:35→21:13)
[2019-04-03] MEDS: POLYVINYL ALCOHOL OPHT DROPS 15 ML BOTTLE EACHEYE SCH ×6 (01:00→20:45)
[2019-04-03] MEDS: OSMOLITE 1.2 CAL 1,000 ML LIQUID GT PRN ×2 (01:38→21:11)
[2019-04-03] MEDS: CARBIDOPA/LEVODOPA 25-100MG TABLET GT SCH ×3 (05:31→21:05)
[2019-04-03] MEDS: FAMOTIDINE 20 MG TABLET GT SCH (05:31)
[2019-04-03] MEDS: LEVOTHYROXINE SODIUM 50 MCG TABLET GT SCH (05:31)
[2019-04-03] MEDS: COD LIVER OIL/ZINC OXIDE OINT 113 GM TUBE TP SCH ×2 (09:00→20:45)
[2019-04-03] MEDS: HYDROGEN PEROXIDE 3% 118 ML BOTTLE TP SCH ×2 (09:20→21:00)
[2019-04-03] MEDS: CALCIUM CARB/VITAMIN D 600-400 MG TABLET GT SCH ×2 (09:32→20:45)
[2019-04-03] MEDS: ENOXAPARIN SODIUM 30 MG/0.3 ML DISP.SYRIN SUBCUT SCH (09:33)
[2019-04-03 12:32] VITALS: BP 132/62
[2019-04-03 20:12] VITALS: BP 112/55
[2019-04-03] MEDS: SACCHAROMYCES BOULARDII GT SCH (20:45)
[2019-04-03] MEDS: PROTEIN SUPPLEMENT (PROSTAT) 30 ML LIQUID GT SCH (20:45)
[2019-04-03] MEDS: MINERAL OIL/PETROLAT OPHT OINT 3.5 GM TUBE EACHEYE SCH (21:11)
[2019-04-04] MEDS: POLYVINYL ALCOHOL OPHT DROPS 15 ML BOTTLE EACHEYE SCH ×6 (00:39→20:30)
[2019-04-04] MEDS: ALBUTEROL SULFATE 2.5 MG/3 ML NEBU NEB SCH ×4 (02:11→18:48)
[2019-04-04] MEDS: IPRATROPIUM BROMIDE 0.5 MG/2.5 ML NEBU NEB SCH ×4 (02:11→18:48)
[2019-04-04] MEDS: LEVOTHYROXINE SODIUM 50 MCG TABLET GT SCH (05:43)
[2019-04-04] MEDS: CARBIDOPA/LEVODOPA 25-100MG TABLET GT SCH ×3 (05:43→21:18)
[2019-04-04] MEDS: FAMOTIDINE 20 MG TABLET GT SCH (05:43)
[2019-04-04] MEDS: ENOXAPARIN SODIUM 30 MG/0.3 ML DISP.SYRIN SUBCUT SCH (08:07)
[2019-04-04] MEDS: CALCIUM CARB/VITAMIN D 600-400 MG TABLET GT SCH ×2 (08:07→20:30)
[2019-04-04] MEDS: COD LIVER OIL/ZINC OXIDE OINT 113 GM TUBE TP SCH ×2 (08:07→20:30)
[2019-04-04 08:09] VITALS: BP 105/66
[2019-04-04] MEDS: HYDROGEN PEROXIDE 3% 118 ML BOTTLE TP SCH ×2 (09:30→18:48)
[2019-04-04] MEDS: PROTEIN SUPPLEMENT (PROSTAT) 30 ML LIQUID GT SCH (20:30)
[2019-04-04] MEDS: SACCHAROMYCES BOULARDII GT SCH (20:30)
[2019-04-04 20:56] VITALS: BP 125/89
[2019-04-04] MEDS: MINERAL OIL/PETROLAT OPHT OINT 3.5 GM TUBE EACHEYE SCH (21:18)
[2019-04-04] MEDS: OSMOLITE 1.2 CAL 1,000 ML LIQUID GT PRN (21:58)
[2019-04-05] MEDS: IPRATROPIUM BROMIDE 0.5 MG/2.5 ML NEBU NEB SCH ×4 (00:33→19:43)
[2019-04-05] MEDS: ALBUTEROL SULFATE 2.5 MG/3 ML NEBU NEB SCH ×4 (00:33→19:43)
[2019-04-05] MEDS: POLYVINYL ALCOHOL OPHT DROPS 15 ML BOTTLE EACHEYE SCH ×6 (00:35→20:23)
[2019-04-05] MEDS: LEVOTHYROXINE SODIUM 50 MCG TABLET GT SCH (05:39)
[2019-04-05] MEDS: FAMOTIDINE 20 MG TABLET GT SCH (05:39)
[2019-04-05] MEDS: CARBIDOPA/LEVODOPA 25-100MG TABLET GT SCH ×3 (05:39→21:20)
[2019-04-05 08:00] VITALS: BP 135/54
[2019-04-05] MEDS: CALCIUM CARB/VITAMIN D 600-400 MG TABLET GT SCH ×2 (08:19→20:23)
[2019-04-05] MEDS: ENOXAPARIN SODIUM 30 MG/0.3 ML DISP.SYRIN SUBCUT SCH (08:20)
[2019-04-05] MEDS: COD LIVER OIL/ZINC OXIDE OINT 113 GM TUBE TP SCH ×2 (08:20→20:23)
[2019-04-05] MEDS: HYDROGEN PEROXIDE 3% 118 ML BOTTLE TP SCH ×2 (08:38→19:30)
[2019-04-05 20:19] VITALS: BP 129/63
[2019-04-05] MEDS: MINERAL OIL/PETROLAT OPHT OINT 3.5 GM TUBE EACHEYE SCH (20:23)
[2019-04-05] MEDS: PROTEIN SUPPLEMENT (PROSTAT) 30 ML LIQUID GT SCH (20:23)
[2019-04-05] MEDS: SACCHAROMYCES BOULARDII GT SCH (20:31)
[2019-04-06] MEDS: POLYVINYL ALCOHOL OPHT DROPS 15 ML BOTTLE EACHEYE SCH ×6 (00:34→20:54)
[2019-04-06] MEDS: OSMOLITE 1.2 CAL 1,000 ML LIQUID GT PRN ×2 (00:34→22:20)
[2019-04-06] MEDS: ALBUTEROL SULFATE 2.5 MG/3 ML NEBU NEB SCH ×4 (01:17→20:01)
[2019-04-06] MEDS: IPRATROPIUM BROMIDE 0.5 MG/2.5 ML NEBU NEB SCH ×4 (01:17→20:01)
[2019-04-06] MEDS: FAMOTIDINE 20 MG TABLET GT SCH (05:39)
[2019-04-06] MEDS: LEVOTHYROXINE SODIUM 50 MCG TABLET GT SCH (05:39)
[2019-04-06] MEDS: CARBIDOPA/LEVODOPA 25-100MG TABLET GT SCH ×3 (05:39→22:37)
[2019-04-06 08:00] VITALS: BP 143/50
[2019-04-06] MEDS: CALCIUM CARB/VITAMIN D 600-400 MG TABLET GT SCH ×2 (09:01→20:55)
[2019-04-06] MEDS: ENOXAPARIN SODIUM 30 MG/0.3 ML DISP.SYRIN SUBCUT SCH (09:02)
[2019-04-06] MEDS: COD LIVER OIL/ZINC OXIDE OINT 113 GM TUBE TP SCH ×2 (09:06→20:56)
[2019-04-06] MEDS: HYDROGEN PEROXIDE 3% 118 ML BOTTLE TP SCH ×2 (09:56→20:01)
[2019-04-06] MEDS: diphenhydrAMINE 25 MG/10 ML UDC NG PRN (13:23)
--- NOTE | 2019-04-06 14:40 | NUR ---
INTERDISCIPLINARY PLAN OF CARE CONFERENCE was held today. Patient's son Adalberto was present at the meeting. Dr. Yu and the Interdisciplinary Team reviewed the current plan of care in detail. RN reported on patient's medical condition. See RN IDT conference notes. No major changes in condition were reported. See also all other disciplines IDT notes and physician's progress notes for additional details. Adalberto's questions were addressed by the IDT team, and Adalberto expressed not having any concerns at this time.
--- NOTE | 2019-04-06 15:40 | NUR ---
Pharmacy Update from Today's 04/06/19 IDT Meeting: VS: Temp 98 BP 129/63 HR 87 LABS: (from 03/30/19) Wbc 6.4 H/H 14.4/43.0 Plt 185 Na 140 K 4.2 Cl 105 CO2 29 BUN/SCr 21/0.7 BS 112 Ca 8.7 phos 3.7 Mg 1.9 MEDICATION USE REVIEWED: > Pt not on any anti-psych or anti-seizure medications > Lovenox 30mg daily for DVT Prophylaxis. No bleeding episodes reported. Last plt 185 > On Synthroid 50mcg daily, last TSH 2.215 (0.358-3.740) on 01/18/19. > Pt on famotidine 20mg daily since 04/07/18, ok per renal function > Pt on Binosto 70mg weekly for osteoporosis since 04/15/18. > PRN MED USAGE: (Mar) Tylenol for pain used x 0 Tylenol for temp used x 0 Artificial Tears used x 1 (per Md, not to d/c despite lack of use as requested by pt family) Imodium used x 0 Benadryl used x 6 NEW ORDERS NOTED: > NA Pt was reviewed and discussed in depth, no medication issues at this time and all changes noted per staff. No further recs per rx at this time, remains stable on current regimen. Will continue to monitor.
[2019-04-06 20:31] VITALS: BP 140/67
[2019-04-06] MEDS: MINERAL OIL/PETROLAT OPHT OINT 3.5 GM TUBE EACHEYE SCH (20:54)
[2019-04-06] MEDS: SACCHAROMYCES BOULARDII GT SCH (20:55)
[2019-04-06] MEDS: PROTEIN SUPPLEMENT (PROSTAT) 30 ML LIQUID GT SCH (20:56)
[2019-04-07] MEDS: POLYVINYL ALCOHOL OPHT DROPS 15 ML BOTTLE EACHEYE SCH ×6 (01:00→20:50)
[2019-04-07] MEDS: ALBUTEROL SULFATE 2.5 MG/3 ML NEBU NEB SCH ×4 (01:01→18:48)
[2019-04-07] MEDS: IPRATROPIUM BROMIDE 0.5 MG/2.5 ML NEBU NEB SCH ×4 (01:01→18:48)
[2019-04-07] MEDS: LEVOTHYROXINE SODIUM 50 MCG TABLET GT SCH (05:29)
[2019-04-07] MEDS: FAMOTIDINE 20 MG TABLET GT SCH (05:29)
[2019-04-07] MEDS: CARBIDOPA/LEVODOPA 25-100MG TABLET GT SCH ×3 (05:29→22:56)
[2019-04-07] MEDS: ALENDRONATE GT SCH (05:29)
[2019-04-07] MEDS: CALCIUM CARB/VITAMIN D 600-400 MG TABLET GT SCH ×2 (08:10→20:50)
[2019-04-07] MEDS: COD LIVER OIL/ZINC OXIDE OINT 113 GM TUBE TP SCH ×2 (08:10→20:50)
[2019-04-07] MEDS: ENOXAPARIN SODIUM 30 MG/0.3 ML DISP.SYRIN SUBCUT SCH (08:11)
[2019-04-07] MEDS: HYDROGEN PEROXIDE 3% 118 ML BOTTLE TP SCH ×2 (09:25→18:48)
[2019-04-07] MEDS: PROTEIN SUPPLEMENT (PROSTAT) 30 ML LIQUID GT SCH (20:50)
[2019-04-07] MEDS: MINERAL OIL/PETROLAT OPHT OINT 3.5 GM TUBE EACHEYE SCH (20:50)
[2019-04-07] MEDS: SACCHAROMYCES BOULARDII GT SCH (20:50)
[2019-04-07 22:46] VITALS: BP 124/60
[2019-04-08] MEDS: IPRATROPIUM BROMIDE 0.5 MG/2.5 ML NEBU NEB SCH ×4 (00:33→19:30)
[2019-04-08] MEDS: ALBUTEROL SULFATE 2.5 MG/3 ML NEBU NEB SCH ×4 (00:33→19:30)
[2019-04-08] MEDS: OSMOLITE 1.2 CAL 1,000 ML LIQUID GT PRN (01:00)
[2019-04-08] MEDS: POLYVINYL ALCOHOL OPHT DROPS 15 ML BOTTLE EACHEYE SCH ×6 (01:59→21:09)
[2019-04-08] MEDS: CARBIDOPA/LEVODOPA 25-100MG TABLET GT SCH ×3 (06:07→21:09)
[2019-04-08] MEDS: LEVOTHYROXINE SODIUM 50 MCG TABLET GT SCH (06:07)
[2019-04-08] MEDS: FAMOTIDINE 20 MG TABLET GT SCH (06:07)
[2019-04-08] MEDS: HYDROGEN PEROXIDE 3% 118 ML BOTTLE TP SCH ×2 (07:30→21:09)
[2019-04-08 08:02] VITALS: BP 125/56
[2019-04-08] MEDS: CALCIUM CARB/VITAMIN D 600-400 MG TABLET GT SCH ×2 (09:08→21:09)
[2019-04-08] MEDS: ENOXAPARIN SODIUM 30 MG/0.3 ML DISP.SYRIN SUBCUT SCH (09:09)
[2019-04-08] MEDS: COD LIVER OIL/ZINC OXIDE OINT 113 GM TUBE TP SCH ×2 (09:10→21:09)
[2019-04-08 20:14] VITALS: BP 126/58
[2019-04-08] MEDS: SACCHAROMYCES BOULARDII GT SCH (21:09)
[2019-04-08] MEDS: PROTEIN SUPPLEMENT (PROSTAT) 30 ML LIQUID GT SCH (21:09)
[2019-04-08] MEDS: MINERAL OIL/PETROLAT OPHT OINT 3.5 GM TUBE EACHEYE SCH (21:09)
[2019-04-09] MEDS: POLYVINYL ALCOHOL OPHT DROPS 15 ML BOTTLE EACHEYE SCH ×6 (00:03→21:42)
[2019-04-09] MEDS: IPRATROPIUM BROMIDE 0.5 MG/2.5 ML NEBU NEB SCH ×4 (00:44→19:37)
[2019-04-09] MEDS: ALBUTEROL SULFATE 2.5 MG/3 ML NEBU NEB SCH ×4 (00:44→19:37)
[2019-04-09] MEDS: OSMOLITE 1.2 CAL 1,000 ML LIQUID GT PRN ×2 (03:00→22:44)
[2019-04-09] MEDS: LEVOTHYROXINE SODIUM 50 MCG TABLET GT SCH (06:21)
[2019-04-09] MEDS: FAMOTIDINE 20 MG TABLET GT SCH (06:21)
[2019-04-09] MEDS: CARBIDOPA/LEVODOPA 25-100MG TABLET GT SCH ×3 (06:21→21:45)
[2019-04-09 08:03] VITALS: BP 137/48
[2019-04-09] MEDS: CALCIUM CARB/VITAMIN D 600-400 MG TABLET GT SCH ×2 (08:36→21:43)
[2019-04-09] MEDS: COD LIVER OIL/ZINC OXIDE OINT 113 GM TUBE TP SCH ×2 (08:37→21:44)
[2019-04-09] MEDS: ENOXAPARIN SODIUM 30 MG/0.3 ML DISP.SYRIN SUBCUT SCH (08:37)
[2019-04-09] MEDS: HYDROGEN PEROXIDE 3% 118 ML BOTTLE TP SCH ×2 (09:00→21:31)
[2019-04-09] MEDS: MINERAL OIL/PETROLAT OPHT OINT 3.5 GM TUBE EACHEYE SCH (21:42)
[2019-04-09] MEDS: SACCHAROMYCES BOULARDII GT SCH (21:44)
[2019-04-09] MEDS: PROTEIN SUPPLEMENT (PROSTAT) 30 ML LIQUID GT SCH (21:44)
[2019-04-09 22:48] VITALS: BP 122/50
[2019-04-10] MEDS: POLYVINYL ALCOHOL OPHT DROPS 15 ML BOTTLE EACHEYE SCH ×6 (00:02→20:48)
[2019-04-10] MEDS: IPRATROPIUM BROMIDE 0.5 MG/2.5 ML NEBU NEB SCH ×4 (01:42→19:49)
[2019-04-10] MEDS: ALBUTEROL SULFATE 2.5 MG/3 ML NEBU NEB SCH ×4 (01:42→19:49)
[2019-04-10] MEDS: CARBIDOPA/LEVODOPA 25-100MG TABLET GT SCH ×3 (06:08→22:09)
[2019-04-10] MEDS: FAMOTIDINE 20 MG TABLET GT SCH (06:09)
[2019-04-10] MEDS: LEVOTHYROXINE SODIUM 50 MCG TABLET GT SCH (06:09)
[2019-04-10] MEDS: diphenhydrAMINE 25 MG/10 ML UDC NG PRN (06:47)
[2019-04-10] MEDS: HYDROGEN PEROXIDE 3% 118 ML BOTTLE TP SCH ×2 (08:52→21:14)
[2019-04-10] MEDS: CALCIUM CARB/VITAMIN D 600-400 MG TABLET GT SCH ×2 (09:27→20:48)
[2019-04-10] MEDS: COD LIVER OIL/ZINC OXIDE OINT 113 GM TUBE TP SCH ×2 (09:27→20:48)
[2019-04-10] MEDS: ENOXAPARIN SODIUM 30 MG/0.3 ML DISP.SYRIN SUBCUT SCH (09:28)
[2019-04-10 11:23] VITALS: BP 132/79
[2019-04-10] MEDS: SACCHAROMYCES BOULARDII GT SCH (20:48)
[2019-04-10] MEDS: MINERAL OIL/PETROLAT OPHT OINT 3.5 GM TUBE EACHEYE SCH (20:48)
[2019-04-10] MEDS: PROTEIN SUPPLEMENT (PROSTAT) 30 ML LIQUID GT SCH (20:48)
[2019-04-10 23:11] VITALS: BP 132/58
[2019-04-10] MEDS: OSMOLITE 1.2 CAL 1,000 ML LIQUID GT PRN (23:16)
[2019-04-11] MEDS: IPRATROPIUM BROMIDE 0.5 MG/2.5 ML NEBU NEB SCH ×4 (00:57→19:07)
[2019-04-11] MEDS: ALBUTEROL SULFATE 2.5 MG/3 ML NEBU NEB SCH ×4 (00:57→19:07)
[2019-04-11] MEDS: POLYVINYL ALCOHOL OPHT DROPS 15 ML BOTTLE EACHEYE SCH ×6 (01:07→20:50)
[2019-04-11] MEDS: FAMOTIDINE 20 MG TABLET GT SCH (05:55)
[2019-04-11] MEDS: CARBIDOPA/LEVODOPA 25-100MG TABLET GT SCH ×3 (05:55→22:13)
[2019-04-11] MEDS: LEVOTHYROXINE SODIUM 50 MCG TABLET GT SCH (05:55)
[2019-04-11 08:00] VITALS: BP 141/85
[2019-04-11] MEDS: HYDROGEN PEROXIDE 3% 118 ML BOTTLE TP SCH ×2 (08:29→20:59)
[2019-04-11] MEDS: CALCIUM CARB/VITAMIN D 600-400 MG TABLET GT SCH ×2 (09:18→20:51)
[2019-04-11] MEDS: COD LIVER OIL/ZINC OXIDE OINT 113 GM TUBE TP SCH ×2 (09:19→20:52)
[2019-04-11] MEDS: ENOXAPARIN SODIUM 30 MG/0.3 ML DISP.SYRIN SUBCUT SCH (09:24)
[2019-04-11] MEDS: MINERAL OIL/PETROLAT OPHT OINT 3.5 GM TUBE EACHEYE SCH (20:51)
[2019-04-11] MEDS: PROTEIN SUPPLEMENT (PROSTAT) 30 ML LIQUID GT SCH (20:52)
[2019-04-11] MEDS: SACCHAROMYCES BOULARDII GT SCH (20:52)
[2019-04-11 23:00] VITALS: BP 130/56
[2019-04-12] MEDS: POLYVINYL ALCOHOL OPHT DROPS 15 ML BOTTLE EACHEYE SCH ×6 (01:19→21:40)
[2019-04-12] MEDS: IPRATROPIUM BROMIDE 0.5 MG/2.5 ML NEBU NEB SCH ×4 (01:35→19:36)
[2019-04-12] MEDS: ALBUTEROL SULFATE 2.5 MG/3 ML NEBU NEB SCH ×4 (01:35→19:36)
[2019-04-12] MEDS: OSMOLITE 1.2 CAL 1,000 ML LIQUID GT PRN (01:39)
[2019-04-12] MEDS: CARBIDOPA/LEVODOPA 25-100MG TABLET GT SCH ×3 (05:15→21:41)
[2019-04-12] MEDS: LEVOTHYROXINE SODIUM 50 MCG TABLET GT SCH (05:16)
[2019-04-12] MEDS: FAMOTIDINE 20 MG TABLET GT SCH (06:30)
[2019-04-12] MEDS: HYDROGEN PEROXIDE 3% 118 ML BOTTLE TP SCH ×2 (08:16→20:55)
[2019-04-12] MEDS: COD LIVER OIL/ZINC OXIDE OINT 113 GM TUBE TP SCH ×2 (08:41→21:41)
[2019-04-12] MEDS: CALCIUM CARB/VITAMIN D 600-400 MG TABLET GT SCH ×2 (08:41→21:41)
[2019-04-12] MEDS: ENOXAPARIN SODIUM 30 MG/0.3 ML DISP.SYRIN SUBCUT SCH (08:42)
[2019-04-12 09:12] VITALS: BP 134/63
[2019-04-12 20:24] VITALS: BP 118/52
[2019-04-12] MEDS: MINERAL OIL/PETROLAT OPHT OINT 3.5 GM TUBE EACHEYE SCH (21:41)
[2019-04-12] MEDS: SACCHAROMYCES BOULARDII GT SCH (21:41)
[2019-04-12] MEDS: PROTEIN SUPPLEMENT (PROSTAT) 30 ML LIQUID GT SCH (21:41)
[2019-04-13] MEDS: POLYVINYL ALCOHOL OPHT DROPS 15 ML BOTTLE EACHEYE SCH ×6 (01:00→21:11)
[2019-04-13] MEDS: IPRATROPIUM BROMIDE 0.5 MG/2.5 ML NEBU NEB SCH ×4 (01:15→19:28)
[2019-04-13] MEDS: ALBUTEROL SULFATE 2.5 MG/3 ML NEBU NEB SCH ×4 (01:15→19:28)
[2019-04-13] MEDS: LEVOTHYROXINE SODIUM 50 MCG TABLET GT SCH (05:07)
[2019-04-13] MEDS: CARBIDOPA/LEVODOPA 25-100MG TABLET GT SCH ×3 (05:07→21:15)
[2019-04-13] MEDS: FAMOTIDINE 20 MG TABLET GT SCH (05:58)
[2019-04-13] MEDS: OSMOLITE 1.2 CAL 1,000 ML LIQUID GT PRN (07:07)
[2019-04-13] MEDS: HYDROGEN PEROXIDE 3% 118 ML BOTTLE TP SCH ×2 (09:25→21:09)
[2019-04-13] MEDS: CALCIUM CARB/VITAMIN D 600-400 MG TABLET GT SCH ×2 (09:26→21:11)
[2019-04-13] MEDS: COD LIVER OIL/ZINC OXIDE OINT 113 GM TUBE TP SCH ×2 (09:26→21:15)
[2019-04-13] MEDS: ENOXAPARIN SODIUM 30 MG/0.3 ML DISP.SYRIN SUBCUT SCH (09:27)
[2019-04-13 10:54] VITALS: BP 111/61
[2019-04-13 20:48] VITALS: BP 136/63
[2019-04-13] MEDS: MINERAL OIL/PETROLAT OPHT OINT 3.5 GM TUBE EACHEYE SCH (21:11)
[2019-04-13] MEDS: PROTEIN SUPPLEMENT (PROSTAT) 30 ML LIQUID GT SCH (21:14)
[2019-04-13] MEDS: SACCHAROMYCES BOULARDII GT SCH (21:15)
[2019-04-14] MEDS: ALBUTEROL SULFATE 2.5 MG/3 ML NEBU NEB SCH ×4 (00:50→20:04)
[2019-04-14] MEDS: IPRATROPIUM BROMIDE 0.5 MG/2.5 ML NEBU NEB SCH ×4 (00:50→20:04)
[2019-04-14] MEDS: POLYVINYL ALCOHOL OPHT DROPS 15 ML BOTTLE EACHEYE SCH ×6 (01:13→21:00)
[2019-04-14] MEDS: FAMOTIDINE 20 MG TABLET GT SCH (05:51)
[2019-04-14] MEDS: ALENDRONATE GT SCH (05:51)
[2019-04-14] MEDS: LEVOTHYROXINE SODIUM 50 MCG TABLET GT SCH (05:51)
[2019-04-14] MEDS: CARBIDOPA/LEVODOPA 25-100MG TABLET GT SCH ×3 (05:51→22:28)
[2019-04-14] MEDS: OSMOLITE 1.2 CAL 1,000 ML LIQUID GT PRN (07:06)
[2019-04-14] MEDS: CALCIUM CARB/VITAMIN D 600-400 MG TABLET GT SCH ×2 (08:36→21:00)
[2019-04-14] MEDS: COD LIVER OIL/ZINC OXIDE OINT 113 GM TUBE TP SCH ×2 (08:36→21:00)
[2019-04-14] MEDS: ENOXAPARIN SODIUM 30 MG/0.3 ML DISP.SYRIN SUBCUT SCH (08:37)
[2019-04-14] MEDS: HYDROGEN PEROXIDE 3% 118 ML BOTTLE TP SCH ×2 (09:47→21:42)
[2019-04-14 11:30] VITALS: BP 131/53
--- NOTE | 2019-04-14 20:00 | NUR ---
VSS 97.5-71-16 BP 141/54. SATS 98%. PATIENT TRACHED TO 28% MIST MASK. COLOR GOOD. PATIENT ALERT. LOOKS AT NURSE AND SEEMS TO MAKE EYE TO EYE CONTACT. ABDOMEN SOFT WITH INTACT AND PATENT GTUBE FOR OSMOLITE 1.2 @ 55CC/HOUR--RESIDUAL <10CC--FEEDING CONTINUES WITHOUT INTERRUPTION. REDNESS TO INTACT SACRUM AND PROTECTIVE MEPILEX IN PLACE. NO SIGNS OF ACUTE CARDIAC/RESPIRATORY DISTRESS OR SUPPRESSION.
[2019-04-14 20:55] VITALS: BP 141/54
[2019-04-14] MEDS: MINERAL OIL/PETROLAT OPHT OINT 3.5 GM TUBE EACHEYE SCH (21:00)
[2019-04-14] MEDS: SACCHAROMYCES BOULARDII GT SCH (21:00)
[2019-04-14] MEDS: PROTEIN SUPPLEMENT (PROSTAT) 30 ML LIQUID GT SCH (21:00)
[2019-04-15] MEDS: ALBUTEROL SULFATE 2.5 MG/3 ML NEBU NEB SCH ×4 (00:43→19:20)
[2019-04-15] MEDS: IPRATROPIUM BROMIDE 0.5 MG/2.5 ML NEBU NEB SCH ×4 (00:43→19:20)
[2019-04-15] MEDS: POLYVINYL ALCOHOL OPHT DROPS 15 ML BOTTLE EACHEYE SCH ×6 (01:13→20:40)
[2019-04-15] MEDS: CARBIDOPA/LEVODOPA 25-100MG TABLET GT SCH ×3 (06:47→22:03)
[2019-04-15] MEDS: FAMOTIDINE 20 MG TABLET GT SCH (06:49)
[2019-04-15] MEDS: LEVOTHYROXINE SODIUM 50 MCG TABLET GT SCH (06:49)
[2019-04-15] MEDS: CALCIUM CARB/VITAMIN D 600-400 MG TABLET GT SCH ×2 (08:13→20:40)
[2019-04-15] MEDS: COD LIVER OIL/ZINC OXIDE OINT 113 GM TUBE TP SCH ×2 (08:16→20:40)
[2019-04-15] MEDS: ENOXAPARIN SODIUM 30 MG/0.3 ML DISP.SYRIN SUBCUT SCH (08:16)
[2019-04-15 08:30] VITALS: BP 147/55
[2019-04-15] MEDS: HYDROGEN PEROXIDE 3% 118 ML BOTTLE TP SCH ×2 (09:54→21:14)
[2019-04-15 20:17] VITALS: BP 108/59
[2019-04-15] MEDS: PROTEIN SUPPLEMENT (PROSTAT) 30 ML LIQUID GT SCH (20:40)
[2019-04-15] MEDS: MINERAL OIL/PETROLAT OPHT OINT 3.5 GM TUBE EACHEYE SCH (20:40)
[2019-04-15] MEDS: SACCHAROMYCES BOULARDII GT SCH (20:40)
[2019-04-16] MEDS: ALBUTEROL SULFATE 2.5 MG/3 ML NEBU NEB SCH ×4 (00:55→19:38)
[2019-04-16] MEDS: IPRATROPIUM BROMIDE 0.5 MG/2.5 ML NEBU NEB SCH ×4 (00:55→19:38)
[2019-04-16] MEDS: POLYVINYL ALCOHOL OPHT DROPS 15 ML BOTTLE EACHEYE SCH ×6 (01:00→20:41)
[2019-04-16] MEDS: OSMOLITE 1.2 CAL 1,000 ML LIQUID GT PRN (04:11)
[2019-04-16] MEDS: FAMOTIDINE 20 MG TABLET GT SCH (05:44)
[2019-04-16] MEDS: CARBIDOPA/LEVODOPA 25-100MG TABLET GT SCH ×3 (05:44→22:00)
[2019-04-16] MEDS: LEVOTHYROXINE SODIUM 50 MCG TABLET GT SCH (05:44)
[2019-04-16 08:00] VITALS: BP 122/54
[2019-04-16] MEDS: HYDROGEN PEROXIDE 3% 118 ML BOTTLE TP SCH ×2 (08:09→21:00)
[2019-04-16] MEDS: ENOXAPARIN SODIUM 30 MG/0.3 ML DISP.SYRIN SUBCUT SCH (09:40)
[2019-04-16] MEDS: COD LIVER OIL/ZINC OXIDE OINT 113 GM TUBE TP SCH ×2 (09:40→20:41)
[2019-04-16] MEDS: CALCIUM CARB/VITAMIN D 600-400 MG TABLET GT SCH ×2 (09:40→20:41)
[2019-04-16 20:19] VITALS: BP 124/58
[2019-04-16] MEDS: SACCHAROMYCES BOULARDII GT SCH (20:41)
[2019-04-16] MEDS: MINERAL OIL/PETROLAT OPHT OINT 3.5 GM TUBE EACHEYE SCH (20:41)
[2019-04-16] MEDS: PROTEIN SUPPLEMENT (PROSTAT) 30 ML LIQUID GT SCH (20:41)
[2019-04-17] MEDS: POLYVINYL ALCOHOL OPHT DROPS 15 ML BOTTLE EACHEYE SCH ×6 (00:05→20:09)
[2019-04-17] MEDS: ALBUTEROL SULFATE 2.5 MG/3 ML NEBU NEB SCH ×4 (00:59→19:25)
[2019-04-17] MEDS: IPRATROPIUM BROMIDE 0.5 MG/2.5 ML NEBU NEB SCH ×4 (00:59→19:25)
[2019-04-17] MEDS: OSMOLITE 1.2 CAL 1,000 ML LIQUID GT PRN (04:13)
[2019-04-17] MEDS: CARBIDOPA/LEVODOPA 25-100MG TABLET GT SCH ×3 (05:15→21:31)
[2019-04-17] MEDS: LEVOTHYROXINE SODIUM 50 MCG TABLET GT SCH (05:15)
[2019-04-17] MEDS: FAMOTIDINE 20 MG TABLET GT SCH (06:16)
[2019-04-17] MEDS: HYDROGEN PEROXIDE 3% 118 ML BOTTLE TP SCH ×2 (07:39→21:16)
[2019-04-17 08:05] VITALS: BP 128/74
[2019-04-17] MEDS: CALCIUM CARB/VITAMIN D 600-400 MG TABLET GT SCH ×2 (08:08→20:09)
[2019-04-17] MEDS: COD LIVER OIL/ZINC OXIDE OINT 113 GM TUBE TP SCH ×2 (08:09→20:10)
[2019-04-17] MEDS: ENOXAPARIN SODIUM 30 MG/0.3 ML DISP.SYRIN SUBCUT SCH (08:09)
[2019-04-17] MEDS: diphenhydrAMINE 25 MG/10 ML UDC NG PRN (12:56)
[2019-04-17] MEDS: SACCHAROMYCES BOULARDII GT SCH (20:09)
[2019-04-17] MEDS: MINERAL OIL/PETROLAT OPHT OINT 3.5 GM TUBE EACHEYE SCH (20:09)
[2019-04-17] MEDS: PROTEIN SUPPLEMENT (PROSTAT) 30 ML LIQUID GT SCH (20:09)
[2019-04-17 20:25] VITALS: BP 138/69
[2019-04-18] MEDS: POLYVINYL ALCOHOL OPHT DROPS 15 ML BOTTLE EACHEYE SCH ×6 (00:34→20:24)
[2019-04-18] MEDS: ALBUTEROL SULFATE 2.5 MG/3 ML NEBU NEB SCH ×4 (01:20→18:57)
[2019-04-18] MEDS: IPRATROPIUM BROMIDE 0.5 MG/2.5 ML NEBU NEB SCH ×4 (01:20→18:57)
[2019-04-18] MEDS: OSMOLITE 1.2 CAL 1,000 ML LIQUID GT PRN (02:20)
[2019-04-18] MEDS: LEVOTHYROXINE SODIUM 50 MCG TABLET GT SCH (05:09)
[2019-04-18] MEDS: CARBIDOPA/LEVODOPA 25-100MG TABLET GT SCH ×3 (05:09→22:00)
[2019-04-18] MEDS: FAMOTIDINE 20 MG TABLET GT SCH (05:52)
[2019-04-18] MEDS: HYDROGEN PEROXIDE 3% 118 ML BOTTLE TP SCH ×2 (07:43→18:57)
[2019-04-18 08:05] VITALS: BP 114/58
[2019-04-18] MEDS: CALCIUM CARB/VITAMIN D 600-400 MG TABLET GT SCH ×2 (09:43→20:25)
[2019-04-18] MEDS: ENOXAPARIN SODIUM 30 MG/0.3 ML DISP.SYRIN SUBCUT SCH (09:44)
[2019-04-18] MEDS: COD LIVER OIL/ZINC OXIDE OINT 113 GM TUBE TP SCH ×2 (09:44→20:28)
[2019-04-18] MEDS: MINERAL OIL/PETROLAT OPHT OINT 3.5 GM TUBE EACHEYE SCH (20:25)
[2019-04-18] MEDS: SACCHAROMYCES BOULARDII GT SCH (20:26)
[2019-04-18] MEDS: PROTEIN SUPPLEMENT (PROSTAT) 30 ML LIQUID GT SCH (20:28)
[2019-04-18 20:49] VITALS: BP 127/64
[2019-04-19] MEDS: POLYVINYL ALCOHOL OPHT DROPS 15 ML BOTTLE EACHEYE SCH ×6 (01:25→20:49)
[2019-04-19] MEDS: IPRATROPIUM BROMIDE 0.5 MG/2.5 ML NEBU NEB SCH ×4 (02:01→19:26)
[2019-04-19] MEDS: ALBUTEROL SULFATE 2.5 MG/3 ML NEBU NEB SCH ×4 (02:01→19:26)
[2019-04-19] MEDS: CARBIDOPA/LEVODOPA 25-100MG TABLET GT SCH ×3 (05:24→22:00)
[2019-04-19] MEDS: LEVOTHYROXINE SODIUM 50 MCG TABLET GT SCH (05:24)
[2019-04-19] MEDS: OSMOLITE 1.2 CAL 1,000 ML LIQUID GT PRN (05:24)
[2019-04-19] MEDS: FAMOTIDINE 20 MG TABLET GT SCH (05:50)
[2019-04-19] MEDS: CALCIUM CARB/VITAMIN D 600-400 MG TABLET GT SCH ×2 (08:57→20:49)
[2019-04-19] MEDS: ENOXAPARIN SODIUM 30 MG/0.3 ML DISP.SYRIN SUBCUT SCH (08:58)
[2019-04-19] MEDS: COD LIVER OIL/ZINC OXIDE OINT 113 GM TUBE TP SCH ×2 (08:58→20:50)
[2019-04-19 09:15] VITALS: BP 129/78
[2019-04-19] MEDS: HYDROGEN PEROXIDE 3% 118 ML BOTTLE TP SCH ×2 (09:48→20:24)
[2019-04-19] MEDS: LOPERAMIDE HCL 2 MG/15 ML GT PRN (11:05)
[2019-04-19 19:50] VITALS: BP 131/55
[2019-04-19] MEDS: MINERAL OIL/PETROLAT OPHT OINT 3.5 GM TUBE EACHEYE SCH (20:49)
[2019-04-19] MEDS: SACCHAROMYCES BOULARDII GT SCH (20:49)
[2019-04-19] MEDS: PROTEIN SUPPLEMENT (PROSTAT) 30 ML LIQUID GT SCH (20:49)
[2019-04-20] MEDS: POLYVINYL ALCOHOL OPHT DROPS 15 ML BOTTLE EACHEYE SCH ×6 (01:15→20:38)
[2019-04-20] MEDS: ALBUTEROL SULFATE 2.5 MG/3 ML NEBU NEB SCH ×4 (01:18→19:04)
[2019-04-20] MEDS: IPRATROPIUM BROMIDE 0.5 MG/2.5 ML NEBU NEB SCH ×4 (01:18→19:04)
[2019-04-20] MEDS: LEVOTHYROXINE SODIUM 50 MCG TABLET GT SCH (05:46)
[2019-04-20] MEDS: CARBIDOPA/LEVODOPA 25-100MG TABLET GT SCH ×3 (05:46→22:12)
[2019-04-20] MEDS: OSMOLITE 1.2 CAL 1,000 ML LIQUID GT PRN (05:46)
[2019-04-20] MEDS: FAMOTIDINE 20 MG TABLET GT SCH (05:46)
[2019-04-20] MEDS: CALCIUM CARB/VITAMIN D 600-400 MG TABLET GT SCH ×2 (08:40→20:39)
[2019-04-20] MEDS: ENOXAPARIN SODIUM 30 MG/0.3 ML DISP.SYRIN SUBCUT SCH (08:41)
[2019-04-20] MEDS: COD LIVER OIL/ZINC OXIDE OINT 113 GM TUBE TP SCH ×2 (08:42→20:43)
[2019-04-20] MEDS: HYDROGEN PEROXIDE 3% 118 ML BOTTLE TP SCH ×2 (09:00→21:07)
[2019-04-20 09:03] VITALS: BP 120/68
[2019-04-20 19:56] VITALS: BP 131/65
[2019-04-20] MEDS: MINERAL OIL/PETROLAT OPHT OINT 3.5 GM TUBE EACHEYE SCH (20:38)
[2019-04-20] MEDS: SACCHAROMYCES BOULARDII GT SCH (20:39)
[2019-04-20] MEDS: PROTEIN SUPPLEMENT (PROSTAT) 30 ML LIQUID GT SCH (20:43)
[2019-04-21] MEDS: ALBUTEROL SULFATE 2.5 MG/3 ML NEBU NEB SCH ×4 (00:37→18:53)
[2019-04-21] MEDS: IPRATROPIUM BROMIDE 0.5 MG/2.5 ML NEBU NEB SCH ×4 (00:37→18:53)
[2019-04-21] MEDS: OSMOLITE 1.2 CAL 1,000 ML LIQUID GT PRN (00:55)
[2019-04-21] MEDS: POLYVINYL ALCOHOL OPHT DROPS 15 ML BOTTLE EACHEYE SCH ×6 (01:04→20:42)
[2019-04-21] MEDS: LEVOTHYROXINE SODIUM 50 MCG TABLET GT SCH (05:15)
[2019-04-21] MEDS: CARBIDOPA/LEVODOPA 25-100MG TABLET GT SCH ×3 (05:15→22:40)
[2019-04-21] MEDS: ALENDRONATE GT SCH (05:15)
[2019-04-21] MEDS: FAMOTIDINE 20 MG TABLET GT SCH (06:30)
[2019-04-21] MEDS: HYDROGEN PEROXIDE 3% 118 ML BOTTLE TP SCH ×2 (08:21→18:53)
[2019-04-21] MEDS: COD LIVER OIL/ZINC OXIDE OINT 113 GM TUBE TP SCH ×2 (08:48→20:45)
[2019-04-21] MEDS: CALCIUM CARB/VITAMIN D 600-400 MG TABLET GT SCH ×2 (08:49→20:42)
[2019-04-21] MEDS: ENOXAPARIN SODIUM 30 MG/0.3 ML DISP.SYRIN SUBCUT SCH (08:55)
[2019-04-21 11:08] VITALS: BP 130/50
[2019-04-21] MEDS: diphenhydrAMINE 25 MG/10 ML UDC NG PRN (14:40)
[2019-04-21 19:45] VITALS: BP 118/63
[2019-04-21] MEDS: MINERAL OIL/PETROLAT OPHT OINT 3.5 GM TUBE EACHEYE SCH (20:42)
[2019-04-21] MEDS: SACCHAROMYCES BOULARDII GT SCH (20:42)
[2019-04-21] MEDS: PROTEIN SUPPLEMENT (PROSTAT) 30 ML LIQUID GT SCH (20:44)
[2019-04-22] MEDS: ALBUTEROL SULFATE 2.5 MG/3 ML NEBU NEB SCH ×4 (00:33→19:37)
[2019-04-22] MEDS: IPRATROPIUM BROMIDE 0.5 MG/2.5 ML NEBU NEB SCH ×4 (00:33→19:37)
[2019-04-22] MEDS: POLYVINYL ALCOHOL OPHT DROPS 15 ML BOTTLE EACHEYE SCH ×6 (01:00→21:10)
[2019-04-22] MEDS: OSMOLITE 1.2 CAL 1,000 ML LIQUID GT PRN (04:51)
[2019-04-22] MEDS: CARBIDOPA/LEVODOPA 25-100MG TABLET GT SCH ×3 (06:03→22:11)
[2019-04-22] MEDS: LEVOTHYROXINE SODIUM 50 MCG TABLET GT SCH (06:03)
[2019-04-22] MEDS: FAMOTIDINE 20 MG TABLET GT SCH (06:03)
[2019-04-22 08:30] VITALS: BP 113/74
[2019-04-22] MEDS: CALCIUM CARB/VITAMIN D 600-400 MG TABLET GT SCH ×2 (08:53→21:11)
[2019-04-22] MEDS: COD LIVER OIL/ZINC OXIDE OINT 113 GM TUBE TP SCH ×2 (08:54→21:13)
[2019-04-22] MEDS: ENOXAPARIN SODIUM 30 MG/0.3 ML DISP.SYRIN SUBCUT SCH (08:54)
[2019-04-22] MEDS: HYDROGEN PEROXIDE 3% 118 ML BOTTLE TP SCH ×2 (09:47→21:04)
[2019-04-22 20:52] VITALS: BP 120/61
[2019-04-22] MEDS: MINERAL OIL/PETROLAT OPHT OINT 3.5 GM TUBE EACHEYE SCH (21:11)
[2019-04-22] MEDS: SACCHAROMYCES BOULARDII GT SCH (21:13)
[2019-04-22] MEDS: PROTEIN SUPPLEMENT (PROSTAT) 30 ML LIQUID GT SCH (21:13)
[2019-04-23] MEDS: POLYVINYL ALCOHOL OPHT DROPS 15 ML BOTTLE EACHEYE SCH ×6 (01:13→20:33)
[2019-04-23] MEDS: IPRATROPIUM BROMIDE 0.5 MG/2.5 ML NEBU NEB SCH ×4 (01:15→19:38)
[2019-04-23] MEDS: ALBUTEROL SULFATE 2.5 MG/3 ML NEBU NEB SCH ×4 (01:15→19:38)
[2019-04-23] MEDS: OSMOLITE 1.2 CAL 1,000 ML LIQUID GT PRN ×2 (01:23→22:46)
[2019-04-23] MEDS: CARBIDOPA/LEVODOPA 25-100MG TABLET GT SCH ×3 (06:07→21:03)
[2019-04-23] MEDS: FAMOTIDINE 20 MG TABLET GT SCH (06:07)
[2019-04-23] MEDS: LEVOTHYROXINE SODIUM 50 MCG TABLET GT SCH (06:07)
[2019-04-23 08:00] VITALS: BP 124/83
[2019-04-23] MEDS: HYDROGEN PEROXIDE 3% 118 ML BOTTLE TP SCH ×2 (08:05→21:32)
[2019-04-23] MEDS: CALCIUM CARB/VITAMIN D 600-400 MG TABLET GT SCH ×2 (08:53→20:33)
[2019-04-23] MEDS: COD LIVER OIL/ZINC OXIDE OINT 113 GM TUBE TP SCH ×2 (08:54→20:33)
[2019-04-23] MEDS: ENOXAPARIN SODIUM 30 MG/0.3 ML DISP.SYRIN SUBCUT SCH (08:54)
[2019-04-23] MEDS: diphenhydrAMINE 25 MG/10 ML UDC NG PRN (08:55)
[2019-04-23] MEDS: diphenhydrAMINE 1% CREAM 28.3 GM TUBE TP PRN (08:55)
[2019-04-23] MEDS: PROTEIN SUPPLEMENT (PROSTAT) 30 ML LIQUID GT SCH (20:33)
[2019-04-23] MEDS: SACCHAROMYCES BOULARDII GT SCH (20:33)
[2019-04-23 20:45] VITALS: BP 129/59
[2019-04-23] MEDS: MINERAL OIL/PETROLAT OPHT OINT 3.5 GM TUBE EACHEYE SCH (21:03)
[2019-04-24] MEDS: POLYVINYL ALCOHOL OPHT DROPS 15 ML BOTTLE EACHEYE SCH ×6 (01:14→20:40)
[2019-04-24] MEDS: IPRATROPIUM BROMIDE 0.5 MG/2.5 ML NEBU NEB SCH ×4 (01:24→19:16)
[2019-04-24] MEDS: ALBUTEROL SULFATE 2.5 MG/3 ML NEBU NEB SCH ×4 (01:24→19:17)
[2019-04-24] MEDS: LEVOTHYROXINE SODIUM 50 MCG TABLET GT SCH (05:53)
[2019-04-24] MEDS: FAMOTIDINE 20 MG TABLET GT SCH (05:53)
[2019-04-24] MEDS: CARBIDOPA/LEVODOPA 25-100MG TABLET GT SCH ×3 (05:53→21:20)
[2019-04-24 08:00] VITALS: BP 105/69
[2019-04-24] MEDS: HYDROGEN PEROXIDE 3% 118 ML BOTTLE TP SCH ×2 (09:00→20:59)
[2019-04-24] MEDS: CALCIUM CARB/VITAMIN D 600-400 MG TABLET GT SCH ×2 (09:47→20:40)
[2019-04-24] MEDS: ENOXAPARIN SODIUM 30 MG/0.3 ML DISP.SYRIN SUBCUT SCH (09:48)
[2019-04-24] MEDS: COD LIVER OIL/ZINC OXIDE OINT 113 GM TUBE TP SCH ×2 (09:48→20:40)
[2019-04-24] MEDS: PROTEIN SUPPLEMENT (PROSTAT) 30 ML LIQUID GT SCH (20:40)
[2019-04-24] MEDS: SACCHAROMYCES BOULARDII GT SCH (20:40)
[2019-04-24 20:53] VITALS: BP 123/63
[2019-04-24] MEDS: MINERAL OIL/PETROLAT OPHT OINT 3.5 GM TUBE EACHEYE SCH (21:20)
[2019-04-25] MEDS: POLYVINYL ALCOHOL OPHT DROPS 15 ML BOTTLE EACHEYE SCH ×6 (00:34→20:15)
[2019-04-25] MEDS: IPRATROPIUM BROMIDE 0.5 MG/2.5 ML NEBU NEB SCH ×4 (00:47→19:40)
[2019-04-25] MEDS: ALBUTEROL SULFATE 2.5 MG/3 ML NEBU NEB SCH ×4 (00:47→19:40)
[2019-04-25] MEDS: FAMOTIDINE 20 MG TABLET GT SCH (05:36)
[2019-04-25] MEDS: LEVOTHYROXINE SODIUM 50 MCG TABLET GT SCH (05:36)
[2019-04-25] MEDS: CARBIDOPA/LEVODOPA 25-100MG TABLET GT SCH ×3 (05:36→21:13)
[2019-04-25 08:00] VITALS: BP 135/53
[2019-04-25] MEDS: ENOXAPARIN SODIUM 30 MG/0.3 ML DISP.SYRIN SUBCUT SCH (08:55)
[2019-04-25] MEDS: CALCIUM CARB/VITAMIN D 600-400 MG TABLET GT SCH ×2 (08:55→20:15)
[2019-04-25] MEDS: COD LIVER OIL/ZINC OXIDE OINT 113 GM TUBE TP SCH ×2 (08:56→20:15)
[2019-04-25] MEDS: HYDROGEN PEROXIDE 3% 118 ML BOTTLE TP SCH ×2 (09:00→21:41)
[2019-04-25] MEDS: OSMOLITE 1.2 CAL 1,000 ML LIQUID GT PRN (16:45)
[2019-04-25] MEDS: SACCHAROMYCES BOULARDII GT SCH (20:15)
[2019-04-25] MEDS: PROTEIN SUPPLEMENT (PROSTAT) 30 ML LIQUID GT SCH (20:15)
[2019-04-25 20:37] VITALS: BP 132/44
[2019-04-25] MEDS: MINERAL OIL/PETROLAT OPHT OINT 3.5 GM TUBE EACHEYE SCH (20:51)
[2019-04-26] MEDS: POLYVINYL ALCOHOL OPHT DROPS 15 ML BOTTLE EACHEYE SCH ×6 (00:25→21:13)
[2019-04-26] MEDS: ALBUTEROL SULFATE 2.5 MG/3 ML NEBU NEB SCH ×4 (01:30→19:47)
[2019-04-26] MEDS: IPRATROPIUM BROMIDE 0.5 MG/2.5 ML NEBU NEB SCH ×4 (01:30→19:47)
[2019-04-26] MEDS: LEVOTHYROXINE SODIUM 50 MCG TABLET GT SCH (05:35)
[2019-04-26] MEDS: CARBIDOPA/LEVODOPA 25-100MG TABLET GT SCH ×3 (05:35→21:14)
[2019-04-26] MEDS: FAMOTIDINE 20 MG TABLET GT SCH (05:35)
[2019-04-26 07:35] VITALS: BP 127/68
[2019-04-26] MEDS: CALCIUM CARB/VITAMIN D 600-400 MG TABLET GT SCH ×2 (08:18→21:14)
[2019-04-26] MEDS: COD LIVER OIL/ZINC OXIDE OINT 113 GM TUBE TP SCH ×2 (08:19→21:14)
[2019-04-26] MEDS: ENOXAPARIN SODIUM 30 MG/0.3 ML DISP.SYRIN SUBCUT SCH (08:19)
[2019-04-26] MEDS: HYDROGEN PEROXIDE 3% 118 ML BOTTLE TP SCH ×2 (09:47→21:14)
--- NOTE | 2019-04-26 15:57 | NUR ---
SEEN AND EXAMINED BY DANNIE ALVA.
[2019-04-26 20:26] VITALS: BP 105/81
[2019-04-26] MEDS: MINERAL OIL/PETROLAT OPHT OINT 3.5 GM TUBE EACHEYE SCH (21:14)
[2019-04-26] MEDS: PROTEIN SUPPLEMENT (PROSTAT) 30 ML LIQUID GT SCH (21:14)
[2019-04-26] MEDS: SACCHAROMYCES BOULARDII GT SCH (21:14)
[2019-04-26] MEDS: OSMOLITE 1.2 CAL 1,000 ML LIQUID GT PRN (21:54)
--- NOTE | 2019-04-27 01:00 | NUR ---
Patient temp was at 99.9. Cooling measures started and tylenol given. Will continue to monitor.
[2019-04-27] MEDS: POLYVINYL ALCOHOL OPHT DROPS 15 ML BOTTLE EACHEYE SCH ×6 (01:02→21:10)
[2019-04-27] MEDS: ALBUTEROL SULFATE 2.5 MG/3 ML NEBU NEB SCH ×4 (01:29→19:16)
[2019-04-27] MEDS: IPRATROPIUM BROMIDE 0.5 MG/2.5 ML NEBU NEB SCH ×4 (01:29→19:16)
--- NOTE | 2019-04-27 02:22 | NUR ---
Temp is not 97.8. Will continue to monitor.
[2019-04-27] MEDS: CARBIDOPA/LEVODOPA 25-100MG TABLET GT SCH ×3 (05:41→21:12)
[2019-04-27] MEDS: FAMOTIDINE 20 MG TABLET GT SCH (05:41)
[2019-04-27] MEDS: LEVOTHYROXINE SODIUM 50 MCG TABLET GT SCH (05:41)
--- NOTE | 2019-04-27 07:30 | NUR ---
Seen and examined by Josi SARMIENTO ,with new orders noted.
[2019-04-27] MEDS: ENOXAPARIN SODIUM 30 MG/0.3 ML DISP.SYRIN SUBCUT SCH (08:54)
[2019-04-27] MEDS: CALCIUM CARB/VITAMIN D 600-400 MG TABLET GT SCH ×2 (08:54→21:11)
[2019-04-27] MEDS: COD LIVER OIL/ZINC OXIDE OINT 113 GM TUBE TP SCH ×2 (08:55→21:12)
[2019-04-27] MEDS: HYDROGEN PEROXIDE 3% 118 ML BOTTLE TP SCH ×2 (09:20→21:08)
[2019-04-27 09:32] LABS: BASOPHILS # (AUTO) 0.1 K/uL (0.0-8.0); BASOPHILS % (AUTO) 0.6 % (0.0-2.0); EOSINOPHILS # (AUTO) 0.1 K/uL (0.0-0.7); EOSINOPHILS % (AUTO) 1.1 % (0.0-7.0); HEMATOCRIT 43.4 % (31.2-41.9); HEMOGLOBIN 14.5 g/dL (10.9-14.3); LYMPHOCYTES # (AUTO) 2.4 K/uL (20.0-40.0); LYMPHOCYTES % (AUTO) 24.8 % (20.5-51.5); MEAN CORPUSCULAR HGB CONC 33 g/dL (32.3-35.6); MEAN CORPUSCULAR VOLUME 89.9 fL (75.5-95.3); MONOCYTES # (AUTO) 0.8 K/uL (2.0-10.0); MONOCYTES % (AUTO) 8.5 % (0.0-11.0); NEUTROPHILS # (AUTO) 6.2 K/uL (1.8-8.9); PLATELET COUNT (AUTO) 195 K/uL (179-408); RED BLOOD CELL COUNT(AUTO) 4.83 MIL/uL (3.63-4.92); WHITE BLOOD COUNT (AUTO) 9.6 K/uL (3.8-11.8)
[2019-04-27 09:39] LABS: CARBON DIOXIDE 29 mmol/L (21-32); CHLORIDE 106 mmol/L (98-107); CREATININE 0.6 mg/dL (0.6-1.3); GLUCOSE 123 mg/dL (74-106); POTASSIUM 3.9 mmol/L (3.5-5.1); UREA NITROGEN, BLOOD 20 mg/dL (7-18)
[2019-04-27 10:51] VITALS: BP 125/61
--- NOTE | 2019-04-27 12:21 | NUR ---
MARINO sent patient's daughter Venita an email informing them that the next IDT meeting for the patient has been scheduled for 05/04/2019 at 10am.
[2019-04-27] MEDS: OSMOLITE 1.2 CAL 1,000 ML LIQUID GT PRN (16:36)
[2019-04-27] MEDS: diphenhydrAMINE 25 MG/10 ML UDC NG PRN (17:00)
[2019-04-27 20:00] VITALS: BP 131/50
[2019-04-27] MEDS: PROTEIN SUPPLEMENT (PROSTAT) 30 ML LIQUID GT SCH (21:11)
[2019-04-27] MEDS: MINERAL OIL/PETROLAT OPHT OINT 3.5 GM TUBE EACHEYE SCH (21:11)
[2019-04-27] MEDS: SACCHAROMYCES BOULARDII GT SCH (21:11)
[2019-04-28] MEDS: IPRATROPIUM BROMIDE 0.5 MG/2.5 ML NEBU NEB SCH ×4 (00:31→19:50)
[2019-04-28] MEDS: ALBUTEROL SULFATE 2.5 MG/3 ML NEBU NEB SCH ×4 (00:31→19:50)
[2019-04-28] MEDS: POLYVINYL ALCOHOL OPHT DROPS 15 ML BOTTLE EACHEYE SCH ×6 (01:00→21:00)
[2019-04-28] MEDS: ALENDRONATE GT SCH (06:28)
[2019-04-28] MEDS: CARBIDOPA/LEVODOPA 25-100MG TABLET GT SCH ×3 (06:28→21:00)
[2019-04-28] MEDS: FAMOTIDINE 20 MG TABLET GT SCH (06:28)
[2019-04-28] MEDS: LEVOTHYROXINE SODIUM 50 MCG TABLET GT SCH (06:28)
[2019-04-28] MEDS: COD LIVER OIL/ZINC OXIDE OINT 113 GM TUBE TP SCH ×2 (08:23→21:00)
[2019-04-28] MEDS: ENOXAPARIN SODIUM 30 MG/0.3 ML DISP.SYRIN SUBCUT SCH (08:23)
[2019-04-28] MEDS: CALCIUM CARB/VITAMIN D 600-400 MG TABLET GT SCH ×2 (08:23→21:00)
[2019-04-28] MEDS: HYDROGEN PEROXIDE 3% 118 ML BOTTLE TP SCH ×2 (09:54→21:27)
[2019-04-28 10:46] VITALS: BP 121/74
[2019-04-28 10:49] VITALS: BP 97/55
--- NOTE | 2019-04-28 12:16 | NUR ---
SW received an email response back from patient's son Adalberto, who stated he would be attending the IDT meeting on 05/04/2019.
[2019-04-28 20:00] VITALS: BP 114/50
[2019-04-28] MEDS: SACCHAROMYCES BOULARDII GT SCH (21:00)
[2019-04-28] MEDS: PROTEIN SUPPLEMENT (PROSTAT) 30 ML LIQUID GT SCH (21:00)
[2019-04-28] MEDS: MINERAL OIL/PETROLAT OPHT OINT 3.5 GM TUBE EACHEYE SCH (21:00)
[2019-04-29] MEDS: POLYVINYL ALCOHOL OPHT DROPS 15 ML BOTTLE EACHEYE SCH ×6 (01:00→20:49)
[2019-04-29] MEDS: IPRATROPIUM BROMIDE 0.5 MG/2.5 ML NEBU NEB SCH ×4 (01:42→19:17)
[2019-04-29] MEDS: ALBUTEROL SULFATE 2.5 MG/3 ML NEBU NEB SCH ×4 (01:42→19:17)
[2019-04-29] MEDS: LEVOTHYROXINE SODIUM 50 MCG TABLET GT SCH (06:12)
[2019-04-29] MEDS: CARBIDOPA/LEVODOPA 25-100MG TABLET GT SCH ×3 (06:12→22:21)
[2019-04-29] MEDS: FAMOTIDINE 20 MG TABLET GT SCH (06:12)
[2019-04-29] MEDS: HYDROGEN PEROXIDE 3% 118 ML BOTTLE TP SCH ×2 (07:21→21:00)
[2019-04-29] MEDS: CALCIUM CARB/VITAMIN D 600-400 MG TABLET GT SCH ×2 (09:01→20:50)
[2019-04-29] MEDS: COD LIVER OIL/ZINC OXIDE OINT 113 GM TUBE TP SCH ×2 (09:01→20:50)
[2019-04-29] MEDS: ENOXAPARIN SODIUM 30 MG/0.3 ML DISP.SYRIN SUBCUT SCH (09:10)
[2019-04-29 11:46] VITALS: BP 115/51
--- NOTE | 2019-04-29 19:00 | NUR ---
SEEN BY DR. FLORES WITH NNO.
[2019-04-29 20:00] VITALS: BP 128/87
[2019-04-29] MEDS: PROTEIN SUPPLEMENT (PROSTAT) 30 ML LIQUID GT SCH (20:50)
[2019-04-29] MEDS: MINERAL OIL/PETROLAT OPHT OINT 3.5 GM TUBE EACHEYE SCH (20:50)
[2019-04-29] MEDS: SACCHAROMYCES BOULARDII GT SCH (20:50)
[2019-04-29] MEDS: diphenhydrAMINE 25 MG/10 ML UDC NG PRN (21:30)
[2019-04-30] MEDS: POLYVINYL ALCOHOL OPHT DROPS 15 ML BOTTLE EACHEYE SCH ×6 (01:00→20:40)
[2019-04-30] MEDS: IPRATROPIUM BROMIDE 0.5 MG/2.5 ML NEBU NEB SCH ×4 (01:03→19:48)
[2019-04-30] MEDS: ALBUTEROL SULFATE 2.5 MG/3 ML NEBU NEB SCH ×4 (01:03→19:48)
[2019-04-30] MEDS: FAMOTIDINE 20 MG TABLET GT SCH (06:12)
[2019-04-30] MEDS: LEVOTHYROXINE SODIUM 50 MCG TABLET GT SCH (06:12)
[2019-04-30] MEDS: CARBIDOPA/LEVODOPA 25-100MG TABLET GT SCH ×3 (06:12→22:08)
[2019-04-30] MEDS: CALCIUM CARB/VITAMIN D 600-400 MG TABLET GT SCH ×2 (09:04→20:40)
[2019-04-30] MEDS: ENOXAPARIN SODIUM 30 MG/0.3 ML DISP.SYRIN SUBCUT SCH (09:05)
[2019-04-30] MEDS: COD LIVER OIL/ZINC OXIDE OINT 113 GM TUBE TP SCH ×2 (09:05→20:40)
[2019-04-30] MEDS: HYDROGEN PEROXIDE 3% 118 ML BOTTLE TP SCH ×2 (09:25→21:39)
[2019-04-30 10:28] VITALS: BP 119/66
[2019-04-30 10:29] VITALS: BP 111/69
[2019-04-30 20:06] VITALS: BP 123/62
[2019-04-30] MEDS: SACCHAROMYCES BOULARDII GT SCH (20:40)
[2019-04-30] MEDS: MINERAL OIL/PETROLAT OPHT OINT 3.5 GM TUBE EACHEYE SCH (20:40)
[2019-04-30] MEDS: PROTEIN SUPPLEMENT (PROSTAT) 30 ML LIQUID GT SCH (20:40)
[2019-05-01] MEDS: ALBUTEROL SULFATE 2.5 MG/3 ML NEBU NEB SCH ×4 (00:41→19:03)
[2019-05-01] MEDS: IPRATROPIUM BROMIDE 0.5 MG/2.5 ML NEBU NEB SCH ×4 (00:41→19:03)
[2019-05-01] MEDS: POLYVINYL ALCOHOL OPHT DROPS 15 ML BOTTLE EACHEYE SCH ×6 (01:01→20:58)
[2019-05-01] MEDS: LEVOTHYROXINE SODIUM 50 MCG TABLET GT SCH (05:12)
[2019-05-01] MEDS: CARBIDOPA/LEVODOPA 25-100MG TABLET GT SCH ×3 (05:12→22:23)
[2019-05-01] MEDS: FAMOTIDINE 20 MG TABLET GT SCH (05:38)
[2019-05-01] MEDS: OSMOLITE 1.2 CAL 1,000 ML LIQUID GT PRN (05:39)
[2019-05-01 08:06] VITALS: BP 118/59
[2019-05-01] MEDS: CALCIUM CARB/VITAMIN D 600-400 MG TABLET GT SCH ×2 (08:34→20:58)
[2019-05-01] MEDS: COD LIVER OIL/ZINC OXIDE OINT 113 GM TUBE TP SCH ×2 (08:34→20:58)
[2019-05-01] MEDS: ENOXAPARIN SODIUM 30 MG/0.3 ML DISP.SYRIN SUBCUT SCH (08:37)
[2019-05-01] MEDS: HYDROGEN PEROXIDE 3% 118 ML BOTTLE TP SCH ×2 (09:45→19:03)
[2019-05-01 20:49] VITALS: BP 112/54
[2019-05-01] MEDS: SACCHAROMYCES BOULARDII GT SCH (20:58)
[2019-05-01] MEDS: PROTEIN SUPPLEMENT (PROSTAT) 30 ML LIQUID GT SCH (20:58)
[2019-05-01] MEDS: MINERAL OIL/PETROLAT OPHT OINT 3.5 GM TUBE EACHEYE SCH (20:58)
[2019-05-02] MEDS: POLYVINYL ALCOHOL OPHT DROPS 15 ML BOTTLE EACHEYE SCH ×6 (00:13→20:49)
[2019-05-02] MEDS: OSMOLITE 1.2 CAL 1,000 ML LIQUID GT PRN (00:13)
[2019-05-02] MEDS: ALBUTEROL SULFATE 2.5 MG/3 ML NEBU NEB SCH ×4 (00:33→19:38)
[2019-05-02] MEDS: IPRATROPIUM BROMIDE 0.5 MG/2.5 ML NEBU NEB SCH ×4 (00:33→19:38)
[2019-05-02] MEDS: CARBIDOPA/LEVODOPA 25-100MG TABLET GT SCH ×3 (05:02→22:04)
[2019-05-02] MEDS: LEVOTHYROXINE SODIUM 50 MCG TABLET GT SCH (05:03)
[2019-05-02] MEDS: FAMOTIDINE 20 MG TABLET GT SCH (05:58)
[2019-05-02 08:06] VITALS: BP 112/62
[2019-05-02] MEDS: CALCIUM CARB/VITAMIN D 600-400 MG TABLET GT SCH ×2 (08:53→20:49)
[2019-05-02] MEDS: COD LIVER OIL/ZINC OXIDE OINT 113 GM TUBE TP SCH ×2 (08:54→20:52)
[2019-05-02] MEDS: ENOXAPARIN SODIUM 30 MG/0.3 ML DISP.SYRIN SUBCUT SCH (08:54)
[2019-05-02] MEDS: HYDROGEN PEROXIDE 3% 118 ML BOTTLE TP SCH ×2 (09:17→21:11)
[2019-05-02] MEDS: MINERAL OIL/PETROLAT OPHT OINT 3.5 GM TUBE EACHEYE SCH (20:49)
[2019-05-02] MEDS: SACCHAROMYCES BOULARDII GT SCH (20:49)
[2019-05-02] MEDS: PROTEIN SUPPLEMENT (PROSTAT) 30 ML LIQUID GT SCH (20:51)
[2019-05-02 21:01] VITALS: BP 132/57
[2019-05-03] MEDS: POLYVINYL ALCOHOL OPHT DROPS 15 ML BOTTLE EACHEYE SCH ×6 (01:10→20:48)
[2019-05-03] MEDS: IPRATROPIUM BROMIDE 0.5 MG/2.5 ML NEBU NEB SCH ×4 (01:16→18:55)
[2019-05-03] MEDS: ALBUTEROL SULFATE 2.5 MG/3 ML NEBU NEB SCH ×4 (01:16→18:55)
[2019-05-03] MEDS: LEVOTHYROXINE SODIUM 50 MCG TABLET GT SCH (05:29)
[2019-05-03] MEDS: CARBIDOPA/LEVODOPA 25-100MG TABLET GT SCH ×3 (05:29→21:42)
[2019-05-03] MEDS: FAMOTIDINE 20 MG TABLET GT SCH (05:30)
[2019-05-03] MEDS: CALCIUM CARB/VITAMIN D 600-400 MG TABLET GT SCH ×2 (08:11→20:48)
[2019-05-03] MEDS: COD LIVER OIL/ZINC OXIDE OINT 113 GM TUBE TP SCH ×2 (08:12→20:50)
[2019-05-03] MEDS: ENOXAPARIN SODIUM 30 MG/0.3 ML DISP.SYRIN SUBCUT SCH (08:12)
[2019-05-03 09:16] VITALS: BP 126/60
[2019-05-03] MEDS: HYDROGEN PEROXIDE 3% 118 ML BOTTLE TP SCH ×2 (09:56→21:54)
[2019-05-03 20:40] VITALS: BP 120/57
[2019-05-03] MEDS: MINERAL OIL/PETROLAT OPHT OINT 3.5 GM TUBE EACHEYE SCH (20:48)
[2019-05-03] MEDS: SACCHAROMYCES BOULARDII GT SCH (20:50)
[2019-05-03] MEDS: PROTEIN SUPPLEMENT (PROSTAT) 30 ML LIQUID GT SCH (20:50)
[2019-05-04] MEDS: POLYVINYL ALCOHOL OPHT DROPS 15 ML BOTTLE EACHEYE SCH ×6 (01:10→20:25)
[2019-05-04] MEDS: ALBUTEROL SULFATE 2.5 MG/3 ML NEBU NEB SCH ×4 (01:39→19:21)
[2019-05-04] MEDS: IPRATROPIUM BROMIDE 0.5 MG/2.5 ML NEBU NEB SCH ×4 (01:39→19:21)
[2019-05-04] MEDS: FAMOTIDINE 20 MG TABLET GT SCH (05:46)
[2019-05-04] MEDS: LEVOTHYROXINE SODIUM 50 MCG TABLET GT SCH (05:46)
[2019-05-04] MEDS: CARBIDOPA/LEVODOPA 25-100MG TABLET GT SCH ×3 (05:46→21:59)
[2019-05-04] MEDS: OSMOLITE 1.2 CAL 1,000 ML LIQUID GT PRN (07:02)
[2019-05-04] MEDS: CALCIUM CARB/VITAMIN D 600-400 MG TABLET GT SCH ×2 (08:26→20:25)
[2019-05-04] MEDS: COD LIVER OIL/ZINC OXIDE OINT 113 GM TUBE TP SCH ×2 (08:27→20:26)
[2019-05-04] MEDS: ENOXAPARIN SODIUM 30 MG/0.3 ML DISP.SYRIN SUBCUT SCH (08:27)
[2019-05-04] MEDS: HYDROGEN PEROXIDE 3% 118 ML BOTTLE TP SCH ×2 (09:25→21:16)
[2019-05-04 10:22] VITALS: BP 128/71
--- NOTE | 2019-05-04 15:02 | NUR ---
INTERDISCIPLINARY PLAN OF CARE CONFERENCE was held today. Patient's son Adalberto was present at the meeting. Dr. Yu and the Interdisciplinary Team reviewed the current plan of care in detail. RN reported on patient's medical condition. See RN IDT conference notes. No major changes in condition were reported. See all disciplines IDT notes and physician's progress notes for additional details. Adalberto's questions were addressed by the interdisciplinary team and Adalberto expressed being content with the current plan of care.
--- NOTE | 2019-05-04 16:12 | NUR ---
Pharmacy Update from Today's 05/04/19 IDT Meeting: VS: Temp 97.7 BP 120/57 HR 80 LABS: (from 04/27/19) Wbc 9.6 H/H 14.5/43.4 Plt 195 Na 141 K 3.9 Cl 106 CO2 29 BUN/SCr 20/0.6 BS 123 Ca 8.6 MEDICATION USE REVIEWED: > Pt not on any anti-psych or anti-seizure medications > Lovenox 30mg daily for DVT Prophylaxis. No bleeding episodes reported. Last plt 195 > On Synthroid 50mcg daily, last TSH 2.215 (0.358-3.740) on 01/18/19. > Pt on famotidine 20mg daily since 04/07/18, ok per renal function > Pt on Binosto 70mg weekly for osteoporosis since 04/15/18. > PRN MED USAGE: (Apr) Tylenol for pain used x 0 Tylenol for temp used x 1 Artificial Tears used x 1 (per Md, not to d/c despite lack of use as requested by pt family) Imodium used x 1 Benadryl used x 5 NEW ORDERS NOTED: > NA Pt was reviewed and discussed in depth, no medication issues at this time and all changes noted per staff. Family in attendance with no issues as well. No further recs per rx at this time, remains stable on current regimen. Will continue to monitor.
[2019-05-04] MEDS: MINERAL OIL/PETROLAT OPHT OINT 3.5 GM TUBE EACHEYE SCH (20:25)
[2019-05-04] MEDS: SACCHAROMYCES BOULARDII GT SCH (20:25)
[2019-05-04] MEDS: PROTEIN SUPPLEMENT (PROSTAT) 30 ML LIQUID GT SCH (20:26)
[2019-05-04 21:23] VITALS: BP 132/60
[2019-05-05] MEDS: ALBUTEROL SULFATE 2.5 MG/3 ML NEBU NEB SCH ×4 (00:34→19:32)
[2019-05-05] MEDS: IPRATROPIUM BROMIDE 0.5 MG/2.5 ML NEBU NEB SCH ×4 (00:34→19:32)
[2019-05-05] MEDS: POLYVINYL ALCOHOL OPHT DROPS 15 ML BOTTLE EACHEYE SCH ×7 (01:00→21:21)
[2019-05-05] MEDS: OSMOLITE 1.2 CAL 1,000 ML LIQUID GT PRN (04:40)
[2019-05-05] MEDS: ALENDRONATE GT SCH (05:20)
[2019-05-05] MEDS: LEVOTHYROXINE SODIUM 50 MCG TABLET GT SCH (05:20)
[2019-05-05] MEDS: CARBIDOPA/LEVODOPA 25-100MG TABLET GT SCH ×3 (05:20→21:21)
[2019-05-05] MEDS: FAMOTIDINE 20 MG TABLET GT SCH (05:48)
[2019-05-05] MEDS: CALCIUM CARB/VITAMIN D 600-400 MG TABLET GT SCH ×2 (08:59→20:51)
[2019-05-05] MEDS: COD LIVER OIL/ZINC OXIDE OINT 113 GM TUBE TP SCH ×2 (08:59→20:53)
[2019-05-05] MEDS: ENOXAPARIN SODIUM 30 MG/0.3 ML DISP.SYRIN SUBCUT SCH (09:02)
[2019-05-05] MEDS: HYDROGEN PEROXIDE 3% 118 ML BOTTLE TP SCH ×2 (09:11→20:43)
[2019-05-05 10:50] VITALS: BP 141/61
[2019-05-05] MEDS: diphenhydrAMINE 25 MG/10 ML UDC NG PRN (18:09)
[2019-05-05 20:00] VITALS: BP 132/60
[2019-05-05] MEDS: MINERAL OIL/PETROLAT OPHT OINT 3.5 GM TUBE EACHEYE SCH (20:51)
[2019-05-05] MEDS: SACCHAROMYCES BOULARDII GT SCH (20:52)
[2019-05-05] MEDS: PROTEIN SUPPLEMENT (PROSTAT) 30 ML LIQUID GT SCH (20:53)
[2019-05-06] MEDS: IPRATROPIUM BROMIDE 0.5 MG/2.5 ML NEBU NEB SCH ×4 (01:49→19:10)
[2019-05-06] MEDS: ALBUTEROL SULFATE 2.5 MG/3 ML NEBU NEB SCH ×4 (01:50→19:10)
[2019-05-06] MEDS: LEVOTHYROXINE SODIUM 50 MCG TABLET GT SCH (05:11)
[2019-05-06] MEDS: POLYVINYL ALCOHOL OPHT DROPS 15 ML BOTTLE EACHEYE SCH ×5 (05:11→20:23)
[2019-05-06] MEDS: CARBIDOPA/LEVODOPA 25-100MG TABLET GT SCH ×3 (05:11→21:46)
[2019-05-06] MEDS: OSMOLITE 1.2 CAL 1,000 ML LIQUID GT PRN (05:12)
[2019-05-06] MEDS: FAMOTIDINE 20 MG TABLET GT SCH (05:36)
[2019-05-06 08:00] VITALS: BP 114/59
[2019-05-06] MEDS: CALCIUM CARB/VITAMIN D 600-400 MG TABLET GT SCH ×2 (09:11→20:23)
[2019-05-06] MEDS: COD LIVER OIL/ZINC OXIDE OINT 113 GM TUBE TP SCH ×2 (09:12→20:24)
[2019-05-06] MEDS: ENOXAPARIN SODIUM 30 MG/0.3 ML DISP.SYRIN SUBCUT SCH (09:14)
[2019-05-06] MEDS: HYDROGEN PEROXIDE 3% 118 ML BOTTLE TP SCH ×2 (09:48→21:00)
--- NOTE | 2019-05-06 14:17 | NUR ---
SEEN BY DR. VALDEZ AND WITH NNO.
[2019-05-06 20:00] VITALS: BP 125/64
[2019-05-06] MEDS: PROTEIN SUPPLEMENT (PROSTAT) 30 ML LIQUID GT SCH (20:23)
[2019-05-06] MEDS: SACCHAROMYCES BOULARDII GT SCH (20:23)
[2019-05-06] MEDS: MINERAL OIL/PETROLAT OPHT OINT 3.5 GM TUBE EACHEYE SCH (20:23)
[2019-05-07] MEDS: POLYVINYL ALCOHOL OPHT DROPS 15 ML BOTTLE EACHEYE SCH ×6 (01:13→20:35)
[2019-05-07] MEDS: ALBUTEROL SULFATE 2.5 MG/3 ML NEBU NEB SCH ×4 (01:16→19:26)
[2019-05-07] MEDS: IPRATROPIUM BROMIDE 0.5 MG/2.5 ML NEBU NEB SCH ×4 (01:16→19:26)
[2019-05-07] MEDS: OSMOLITE 1.2 CAL 1,000 ML LIQUID GT PRN (01:55)
[2019-05-07] MEDS: LEVOTHYROXINE SODIUM 50 MCG TABLET GT SCH (05:19)
[2019-05-07] MEDS: CARBIDOPA/LEVODOPA 25-100MG TABLET GT SCH ×3 (05:19→21:53)
[2019-05-07] MEDS: FAMOTIDINE 20 MG TABLET GT SCH (05:31)
[2019-05-07 08:00] VITALS: BP 110/64
[2019-05-07] MEDS: HYDROGEN PEROXIDE 3% 118 ML BOTTLE TP SCH ×2 (09:00→21:02)
[2019-05-07] MEDS: CALCIUM CARB/VITAMIN D 600-400 MG TABLET GT SCH ×2 (09:16→20:35)
[2019-05-07] MEDS: COD LIVER OIL/ZINC OXIDE OINT 113 GM TUBE TP SCH ×2 (09:16→20:35)
[2019-05-07] MEDS: ENOXAPARIN SODIUM 30 MG/0.3 ML DISP.SYRIN SUBCUT SCH (09:16)
[2019-05-07] MEDS: diphenhydrAMINE 25 MG/10 ML UDC NG PRN (19:13)
[2019-05-07 20:00] VITALS: BP 126/55
[2019-05-07] MEDS: PROTEIN SUPPLEMENT (PROSTAT) 30 ML LIQUID GT SCH (20:35)
[2019-05-07] MEDS: SACCHAROMYCES BOULARDII GT SCH (20:35)
[2019-05-07] MEDS: MINERAL OIL/PETROLAT OPHT OINT 3.5 GM TUBE EACHEYE SCH (20:35)
[2019-05-08] MEDS: ALBUTEROL SULFATE 2.5 MG/3 ML NEBU NEB SCH ×4 (01:00→19:50)
[2019-05-08] MEDS: IPRATROPIUM BROMIDE 0.5 MG/2.5 ML NEBU NEB SCH ×4 (01:00→19:50)
[2019-05-08] MEDS: POLYVINYL ALCOHOL OPHT DROPS 15 ML BOTTLE EACHEYE SCH ×6 (01:05→20:05)
[2019-05-08] MEDS: OSMOLITE 1.2 CAL 1,000 ML LIQUID GT PRN (01:46)
[2019-05-08] MEDS: LEVOTHYROXINE SODIUM 50 MCG TABLET GT SCH (05:18)
[2019-05-08] MEDS: CARBIDOPA/LEVODOPA 25-100MG TABLET GT SCH ×3 (05:18→21:33)
[2019-05-08] MEDS: FAMOTIDINE 20 MG TABLET GT SCH (05:32)
[2019-05-08 08:09] VITALS: BP 117/55
[2019-05-08] MEDS: HYDROGEN PEROXIDE 3% 118 ML BOTTLE TP SCH ×2 (09:00→21:43)
[2019-05-08] MEDS: CALCIUM CARB/VITAMIN D 600-400 MG TABLET GT SCH ×2 (09:37→20:05)
[2019-05-08] MEDS: ENOXAPARIN SODIUM 30 MG/0.3 ML DISP.SYRIN SUBCUT SCH (09:39)
[2019-05-08] MEDS: COD LIVER OIL/ZINC OXIDE OINT 113 GM TUBE TP SCH ×2 (09:39→20:05)
[2019-05-08] MEDS: SACCHAROMYCES BOULARDII GT SCH (20:05)
[2019-05-08] MEDS: PROTEIN SUPPLEMENT (PROSTAT) 30 ML LIQUID GT SCH (20:05)
[2019-05-08] MEDS: MINERAL OIL/PETROLAT OPHT OINT 3.5 GM TUBE EACHEYE SCH (20:05)
[2019-05-08 20:26] VITALS: BP 117/55
[2019-05-09] MEDS: POLYVINYL ALCOHOL OPHT DROPS 15 ML BOTTLE EACHEYE SCH ×6 (01:06→20:16)
[2019-05-09] MEDS: IPRATROPIUM BROMIDE 0.5 MG/2.5 ML NEBU NEB SCH ×4 (01:06→19:34)
[2019-05-09] MEDS: ALBUTEROL SULFATE 2.5 MG/3 ML NEBU NEB SCH ×4 (01:06→19:34)
[2019-05-09] MEDS: OSMOLITE 1.2 CAL 1,000 ML LIQUID GT PRN (04:35)
[2019-05-09] MEDS: CARBIDOPA/LEVODOPA 25-100MG TABLET GT SCH ×3 (05:33→21:18)
[2019-05-09] MEDS: LEVOTHYROXINE SODIUM 50 MCG TABLET GT SCH (05:33)
[2019-05-09] MEDS: FAMOTIDINE 20 MG TABLET GT SCH (05:33)
[2019-05-09] MEDS: HYDROGEN PEROXIDE 3% 118 ML BOTTLE TP SCH ×2 (07:47→20:38)
[2019-05-09 08:00] VITALS: BP 125/52
[2019-05-09] MEDS: CALCIUM CARB/VITAMIN D 600-400 MG TABLET GT SCH ×2 (09:10→20:17)
[2019-05-09] MEDS: COD LIVER OIL/ZINC OXIDE OINT 113 GM TUBE TP SCH ×2 (09:10→20:17)
[2019-05-09] MEDS: ENOXAPARIN SODIUM 30 MG/0.3 ML DISP.SYRIN SUBCUT SCH (09:13)
[2019-05-09 20:10] VITALS: BP 132/59
[2019-05-09] MEDS: MINERAL OIL/PETROLAT OPHT OINT 3.5 GM TUBE EACHEYE SCH (20:17)
[2019-05-09] MEDS: SACCHAROMYCES BOULARDII GT SCH (20:17)
[2019-05-09] MEDS: PROTEIN SUPPLEMENT (PROSTAT) 30 ML LIQUID GT SCH (20:17)
[2019-05-10] MEDS: ALBUTEROL SULFATE 2.5 MG/3 ML NEBU NEB SCH ×4 (01:17→19:35)
[2019-05-10] MEDS: IPRATROPIUM BROMIDE 0.5 MG/2.5 ML NEBU NEB SCH ×4 (01:17→19:35)
[2019-05-10] MEDS: POLYVINYL ALCOHOL OPHT DROPS 15 ML BOTTLE EACHEYE SCH ×6 (01:24→20:51)
[2019-05-10] MEDS: LEVOTHYROXINE SODIUM 50 MCG TABLET GT SCH (05:12)
[2019-05-10] MEDS: CARBIDOPA/LEVODOPA 25-100MG TABLET GT SCH ×3 (05:12→21:43)
[2019-05-10] MEDS: FAMOTIDINE 20 MG TABLET GT SCH (05:46)
[2019-05-10 08:30] VITALS: BP 111/57
[2019-05-10] MEDS: HYDROGEN PEROXIDE 3% 118 ML BOTTLE TP SCH ×2 (09:00→21:19)
[2019-05-10] MEDS: COD LIVER OIL/ZINC OXIDE OINT 113 GM TUBE TP SCH ×2 (09:32→20:51)
[2019-05-10] MEDS: CALCIUM CARB/VITAMIN D 600-400 MG TABLET GT SCH ×2 (09:32→20:51)
[2019-05-10] MEDS: ENOXAPARIN SODIUM 30 MG/0.3 ML DISP.SYRIN SUBCUT SCH (09:32)
--- NOTE | 2019-05-10 11:35 | NUR ---
SEEN BY DANNIE Bailey AND O.
[2019-05-10 20:18] VITALS: BP 123/97
[2019-05-10] MEDS: MINERAL OIL/PETROLAT OPHT OINT 3.5 GM TUBE EACHEYE SCH (20:51)
[2019-05-10] MEDS: SACCHAROMYCES BOULARDII GT SCH (20:51)
[2019-05-10] MEDS: PROTEIN SUPPLEMENT (PROSTAT) 30 ML LIQUID GT SCH (20:51)
[2019-05-11] MEDS: POLYVINYL ALCOHOL OPHT DROPS 15 ML BOTTLE EACHEYE SCH ×6 (01:00→21:46)
[2019-05-11] MEDS: ALBUTEROL SULFATE 2.5 MG/3 ML NEBU NEB SCH ×4 (01:29→19:12)
[2019-05-11] MEDS: IPRATROPIUM BROMIDE 0.5 MG/2.5 ML NEBU NEB SCH ×4 (01:29→19:12)
[2019-05-11] MEDS: LEVOTHYROXINE SODIUM 50 MCG TABLET GT SCH (05:23)
[2019-05-11] MEDS: CARBIDOPA/LEVODOPA 25-100MG TABLET GT SCH ×3 (05:23→21:45)
[2019-05-11] MEDS: OSMOLITE 1.2 CAL 1,000 ML LIQUID GT PRN ×2 (05:24→05:39)
[2019-05-11] MEDS: FAMOTIDINE 20 MG TABLET GT SCH (05:39)
[2019-05-11] MEDS: HYDROGEN PEROXIDE 3% 118 ML BOTTLE TP SCH ×2 (09:00→20:37)
[2019-05-11] MEDS: CALCIUM CARB/VITAMIN D 600-400 MG TABLET GT SCH ×2 (09:26→21:42)
[2019-05-11] MEDS: ENOXAPARIN SODIUM 30 MG/0.3 ML DISP.SYRIN SUBCUT SCH (09:27)
[2019-05-11] MEDS: COD LIVER OIL/ZINC OXIDE OINT 113 GM TUBE TP SCH ×2 (09:27→21:45)
[2019-05-11 10:56] VITALS: BP 114/44
[2019-05-11 20:00] VITALS: BP 110/66
[2019-05-11] MEDS: MINERAL OIL/PETROLAT OPHT OINT 3.5 GM TUBE EACHEYE SCH (21:42)
[2019-05-11] MEDS: SACCHAROMYCES BOULARDII GT SCH (21:42)
[2019-05-11] MEDS: PROTEIN SUPPLEMENT (PROSTAT) 30 ML LIQUID GT SCH (21:45)
[2019-05-12] MEDS: ALBUTEROL SULFATE 2.5 MG/3 ML NEBU NEB SCH ×4 (00:32→19:30)
[2019-05-12] MEDS: IPRATROPIUM BROMIDE 0.5 MG/2.5 ML NEBU NEB SCH ×4 (00:32→19:30)
[2019-05-12] MEDS: POLYVINYL ALCOHOL OPHT DROPS 15 ML BOTTLE EACHEYE SCH ×6 (01:00→21:25)
[2019-05-12] MEDS: OSMOLITE 1.2 CAL 1,000 ML LIQUID GT PRN (05:08)
[2019-05-12] MEDS: ALENDRONATE GT SCH (06:00)
[2019-05-12] MEDS: CARBIDOPA/LEVODOPA 25-100MG TABLET GT SCH ×3 (06:00→21:25)
[2019-05-12] MEDS: LEVOTHYROXINE SODIUM 50 MCG TABLET GT SCH (06:00)
[2019-05-12] MEDS: FAMOTIDINE 20 MG TABLET GT SCH (06:00)
[2019-05-12 08:00] VITALS: BP 110/64
[2019-05-12] MEDS: CALCIUM CARB/VITAMIN D 600-400 MG TABLET GT SCH ×2 (08:28→21:25)
[2019-05-12] MEDS: ENOXAPARIN SODIUM 30 MG/0.3 ML DISP.SYRIN SUBCUT SCH (08:30)
[2019-05-12] MEDS: COD LIVER OIL/ZINC OXIDE OINT 113 GM TUBE TP SCH ×2 (08:32→21:25)
[2019-05-12] MEDS: HYDROGEN PEROXIDE 3% 118 ML BOTTLE TP SCH ×2 (09:23→20:40)
[2019-05-12 20:00] VITALS: BP 125/50
[2019-05-12] MEDS: MINERAL OIL/PETROLAT OPHT OINT 3.5 GM TUBE EACHEYE SCH (21:25)
[2019-05-12] MEDS: PROTEIN SUPPLEMENT (PROSTAT) 30 ML LIQUID GT SCH (21:25)
[2019-05-12] MEDS: SACCHAROMYCES BOULARDII GT SCH (21:25)
[2019-05-13] MEDS: POLYVINYL ALCOHOL OPHT DROPS 15 ML BOTTLE EACHEYE SCH ×6 (01:00→20:24)
[2019-05-13] MEDS: ALBUTEROL SULFATE 2.5 MG/3 ML NEBU NEB SCH ×4 (01:26→19:37)
[2019-05-13] MEDS: IPRATROPIUM BROMIDE 0.5 MG/2.5 ML NEBU NEB SCH ×4 (01:26→19:37)
[2019-05-13] MEDS: OSMOLITE 1.2 CAL 1,000 ML LIQUID GT PRN (04:43)
[2019-05-13] MEDS: FAMOTIDINE 20 MG TABLET GT SCH (05:41)
[2019-05-13] MEDS: LEVOTHYROXINE SODIUM 50 MCG TABLET GT SCH (05:41)
[2019-05-13] MEDS: CARBIDOPA/LEVODOPA 25-100MG TABLET GT SCH ×3 (05:41→22:21)
[2019-05-13 08:00] VITALS: BP 120/60
[2019-05-13] MEDS: CALCIUM CARB/VITAMIN D 600-400 MG TABLET GT SCH ×2 (08:44→20:24)
[2019-05-13] MEDS: ENOXAPARIN SODIUM 30 MG/0.3 ML DISP.SYRIN SUBCUT SCH (08:46)
[2019-05-13] MEDS: COD LIVER OIL/ZINC OXIDE OINT 113 GM TUBE TP SCH ×2 (08:47→20:24)
[2019-05-13] MEDS: HYDROGEN PEROXIDE 3% 118 ML BOTTLE TP SCH ×2 (09:00→21:03)
[2019-05-13] MEDS: SACCHAROMYCES BOULARDII GT SCH (20:24)
[2019-05-13] MEDS: MINERAL OIL/PETROLAT OPHT OINT 3.5 GM TUBE EACHEYE SCH (20:24)
[2019-05-13] MEDS: PROTEIN SUPPLEMENT (PROSTAT) 30 ML LIQUID GT SCH (20:24)
[2019-05-13 20:44] VITALS: BP 126/57
[2019-05-14] MEDS: POLYVINYL ALCOHOL OPHT DROPS 15 ML BOTTLE EACHEYE SCH ×6 (01:00→20:33)
[2019-05-14] MEDS: IPRATROPIUM BROMIDE 0.5 MG/2.5 ML NEBU NEB SCH ×4 (02:02→19:39)
[2019-05-14] MEDS: ALBUTEROL SULFATE 2.5 MG/3 ML NEBU NEB SCH ×4 (02:02→19:39)
[2019-05-14] MEDS: OSMOLITE 1.2 CAL 1,000 ML LIQUID GT PRN (04:49)
[2019-05-14] MEDS: LEVOTHYROXINE SODIUM 50 MCG TABLET GT SCH (06:14)
[2019-05-14] MEDS: CARBIDOPA/LEVODOPA 25-100MG TABLET GT SCH ×3 (06:14→21:08)
[2019-05-14] MEDS: FAMOTIDINE 20 MG TABLET GT SCH (06:14)
[2019-05-14 08:01] VITALS: BP 128/57
[2019-05-14] MEDS: ENOXAPARIN SODIUM 30 MG/0.3 ML DISP.SYRIN SUBCUT SCH (09:00)
[2019-05-14] MEDS: COD LIVER OIL/ZINC OXIDE OINT 113 GM TUBE TP SCH ×2 (09:00→20:33)
[2019-05-14] MEDS: CALCIUM CARB/VITAMIN D 600-400 MG TABLET GT SCH ×2 (09:00→20:33)
[2019-05-14] MEDS: HYDROGEN PEROXIDE 3% 118 ML BOTTLE TP SCH ×2 (09:28→22:12)
--- NOTE | 2019-05-14 18:58 | NUR ---
This SW spoke with patient's daughter Kimberlee [phone] and informed him that per CDC and [facility] decision to minimize the risk of subacute residents becoming sick with the COVID-19 virus, visitation to [facility] will be suspended, effective immediately, and until further notice. Kimberlee expressed understanding.
[2019-05-14] MEDS: PROTEIN SUPPLEMENT (PROSTAT) 30 ML LIQUID GT SCH (20:33)
[2019-05-14] MEDS: SACCHAROMYCES BOULARDII GT SCH (20:33)
[2019-05-14 21:01] VITALS: BP 109/58
[2019-05-14] MEDS: MINERAL OIL/PETROLAT OPHT OINT 3.5 GM TUBE EACHEYE SCH (21:08)
[2019-05-15] MEDS: POLYVINYL ALCOHOL OPHT DROPS 15 ML BOTTLE EACHEYE SCH ×6 (00:03→20:37)
[2019-05-15] MEDS: ALBUTEROL SULFATE 2.5 MG/3 ML NEBU NEB SCH ×4 (01:47→19:08)
[2019-05-15] MEDS: IPRATROPIUM BROMIDE 0.5 MG/2.5 ML NEBU NEB SCH ×4 (01:47→19:08)
[2019-05-15] MEDS: OSMOLITE 1.2 CAL 1,000 ML LIQUID GT PRN ×2 (02:22→22:49)
[2019-05-15] MEDS: CARBIDOPA/LEVODOPA 25-100MG TABLET GT SCH ×3 (05:40→21:04)
[2019-05-15] MEDS: FAMOTIDINE 20 MG TABLET GT SCH (05:40)
[2019-05-15] MEDS: LEVOTHYROXINE SODIUM 50 MCG TABLET GT SCH (05:40)
[2019-05-15 08:00] VITALS: BP 118/60
--- NOTE | 2019-05-15 08:00 | NUR ---
Pt received awake,afebrile temp 97 and o2 sat 99%,no respiratory distress,no discomfort noted.
[2019-05-15] MEDS: CALCIUM CARB/VITAMIN D 600-400 MG TABLET GT SCH ×2 (08:03→20:37)
[2019-05-15] MEDS: ENOXAPARIN SODIUM 30 MG/0.3 ML DISP.SYRIN SUBCUT SCH (08:04)
[2019-05-15] MEDS: COD LIVER OIL/ZINC OXIDE OINT 113 GM TUBE TP SCH ×2 (08:04→20:37)
[2019-05-15] MEDS: HYDROGEN PEROXIDE 3% 118 ML BOTTLE TP SCH ×2 (09:02→19:08)
[2019-05-15] MEDS: SACCHAROMYCES BOULARDII GT SCH (20:37)
[2019-05-15] MEDS: PROTEIN SUPPLEMENT (PROSTAT) 30 ML LIQUID GT SCH (20:37)
[2019-05-15 20:47] VITALS: BP 113/60
[2019-05-15] MEDS: MINERAL OIL/PETROLAT OPHT OINT 3.5 GM TUBE EACHEYE SCH (21:04)
--- NOTE | 2019-05-15 21:35 | NUR ---
Temperature is 97.4 Fahrenheit, 02 sat is 98%, suctioned with pale yellow secretions,no respiratory distress noted, HOB elevated, kept clean and comfortable.
[2019-05-16] MEDS: ALBUTEROL SULFATE 2.5 MG/3 ML NEBU NEB SCH ×4 (00:35→19:00)
[2019-05-16] MEDS: IPRATROPIUM BROMIDE 0.5 MG/2.5 ML NEBU NEB SCH ×4 (00:35→19:00)
[2019-05-16] MEDS: POLYVINYL ALCOHOL OPHT DROPS 15 ML BOTTLE EACHEYE SCH ×6 (01:16→20:41)
[2019-05-16] MEDS: CARBIDOPA/LEVODOPA 25-100MG TABLET GT SCH ×3 (06:04→21:12)
[2019-05-16] MEDS: FAMOTIDINE 20 MG TABLET GT SCH (06:04)
[2019-05-16] MEDS: LEVOTHYROXINE SODIUM 50 MCG TABLET GT SCH (06:04)
[2019-05-16 08:00] VITALS: BP 104/41
[2019-05-16] MEDS: CALCIUM CARB/VITAMIN D 600-400 MG TABLET GT SCH ×2 (08:28→20:41)
[2019-05-16] MEDS: COD LIVER OIL/ZINC OXIDE OINT 113 GM TUBE TP SCH ×2 (08:29→20:41)
[2019-05-16] MEDS: ENOXAPARIN SODIUM 30 MG/0.3 ML DISP.SYRIN SUBCUT SCH (08:29)
[2019-05-16] MEDS: HYDROGEN PEROXIDE 3% 118 ML BOTTLE TP SCH ×2 (09:00→19:00)
[2019-05-16 09:33] VITALS: BP 127/49
--- NOTE | 2019-05-16 16:47 | NUR ---
Afebrile temperature 97.6,no respiratory distress noted suctioned as needed,enteral feeding tolerated well,no gastric residual.
[2019-05-16 20:41] VITALS: BP 122/62
[2019-05-16] MEDS: PROTEIN SUPPLEMENT (PROSTAT) 30 ML LIQUID GT SCH (20:41)
[2019-05-16] MEDS: SACCHAROMYCES BOULARDII GT SCH (20:41)
[2019-05-16] MEDS: MINERAL OIL/PETROLAT OPHT OINT 3.5 GM TUBE EACHEYE SCH (21:12)
--- NOTE | 2019-05-16 22:00 | NUR ---
Afebrile, temperature is 97.5 Fahrenheit, trach is intact and patent, 02 sat is 97% on 28% fi02, no respiratory distress noted, turned and repositioned, kept clean and comfortable.
[2019-05-17] MEDS: POLYVINYL ALCOHOL OPHT DROPS 15 ML BOTTLE EACHEYE SCH ×6 (00:06→20:50)
[2019-05-17] MEDS: IPRATROPIUM BROMIDE 0.5 MG/2.5 ML NEBU NEB SCH ×4 (00:30→19:50)
[2019-05-17] MEDS: ALBUTEROL SULFATE 2.5 MG/3 ML NEBU NEB SCH ×4 (00:30→19:50)
[2019-05-17] MEDS: CARBIDOPA/LEVODOPA 25-100MG TABLET GT SCH ×3 (05:30→21:02)
[2019-05-17] MEDS: LEVOTHYROXINE SODIUM 50 MCG TABLET GT SCH (05:31)
[2019-05-17] MEDS: FAMOTIDINE 20 MG TABLET GT SCH (05:31)
[2019-05-17 08:00] VITALS: BP 137/57
[2019-05-17] MEDS: CALCIUM CARB/VITAMIN D 600-400 MG TABLET GT SCH ×2 (08:38→20:50)
[2019-05-17] MEDS: ENOXAPARIN SODIUM 30 MG/0.3 ML DISP.SYRIN SUBCUT SCH (08:39)
[2019-05-17] MEDS: COD LIVER OIL/ZINC OXIDE OINT 113 GM TUBE TP SCH ×2 (08:39→20:54)
[2019-05-17] MEDS: HYDROGEN PEROXIDE 3% 118 ML BOTTLE TP SCH ×2 (09:00→20:44)
--- NOTE | 2019-05-17 14:39 | NUR ---
Patient stable, no acute respiratory distress noted, repositioned q2hrs for comfort.
[2019-05-17] MEDS: MINERAL OIL/PETROLAT OPHT OINT 3.5 GM TUBE EACHEYE SCH (20:50)
[2019-05-17] MEDS: SACCHAROMYCES BOULARDII GT SCH (20:51)
[2019-05-17] MEDS: PROTEIN SUPPLEMENT (PROSTAT) 30 ML LIQUID GT SCH (20:54)
[2019-05-17 21:05] VITALS: BP 116/60
--- NOTE | 2019-05-17 21:39 | NUR ---
Temperature is 97.7, no SOB, no signs of any respiratory distress noted,02 sat is 97% on 28%fi02, patient is stable, turned and repositioned, kept clean and comfortable.
[2019-05-17] MEDS: OSMOLITE 1.2 CAL 1,000 ML LIQUID GT PRN (22:15)
[2019-05-18] MEDS: POLYVINYL ALCOHOL OPHT DROPS 15 ML BOTTLE EACHEYE SCH ×6 (01:00→20:47)
[2019-05-18] MEDS: ALBUTEROL SULFATE 2.5 MG/3 ML NEBU NEB SCH ×4 (01:32→19:51)
[2019-05-18] MEDS: IPRATROPIUM BROMIDE 0.5 MG/2.5 ML NEBU NEB SCH ×4 (01:32→19:51)
[2019-05-18] MEDS: diphenhydrAMINE 25 MG/10 ML UDC NG PRN (02:39)
[2019-05-18] MEDS: CARBIDOPA/LEVODOPA 25-100MG TABLET GT SCH ×3 (05:59→22:04)
[2019-05-18] MEDS: FAMOTIDINE 20 MG TABLET GT SCH (05:59)
[2019-05-18] MEDS: LEVOTHYROXINE SODIUM 50 MCG TABLET GT SCH (05:59)
[2019-05-18 08:00] VITALS: BP 134/55
[2019-05-18] MEDS: CALCIUM CARB/VITAMIN D 600-400 MG TABLET GT SCH ×2 (08:31→20:48)
[2019-05-18] MEDS: ENOXAPARIN SODIUM 30 MG/0.3 ML DISP.SYRIN SUBCUT SCH (08:32)
[2019-05-18] MEDS: COD LIVER OIL/ZINC OXIDE OINT 113 GM TUBE TP SCH ×2 (08:32→20:49)
[2019-05-18] MEDS: HYDROGEN PEROXIDE 3% 118 ML BOTTLE TP SCH ×2 (09:56→21:01)
--- NOTE | 2019-05-18 18:17 | NUR ---
No acute respiratory distress ,no increase secretions,trach to p mist 28%,afebrile ,temperature 97.8.
[2019-05-18] MEDS: MINERAL OIL/PETROLAT OPHT OINT 3.5 GM TUBE EACHEYE SCH (20:48)
[2019-05-18] MEDS: PROTEIN SUPPLEMENT (PROSTAT) 30 ML LIQUID GT SCH (20:49)
[2019-05-18] MEDS: SACCHAROMYCES BOULARDII GT SCH (20:49)
[2019-05-18 20:51] VITALS: BP 117/97
[2019-05-19] MEDS: diphenhydrAMINE 25 MG/10 ML UDC NG PRN (01:00)
[2019-05-19] MEDS: POLYVINYL ALCOHOL OPHT DROPS 15 ML BOTTLE EACHEYE SCH ×6 (01:00→21:09)
[2019-05-19] MEDS: ALBUTEROL SULFATE 2.5 MG/3 ML NEBU NEB SCH ×4 (01:06→19:48)
[2019-05-19] MEDS: IPRATROPIUM BROMIDE 0.5 MG/2.5 ML NEBU NEB SCH ×4 (01:06→19:48)
[2019-05-19] MEDS: LEVOTHYROXINE SODIUM 50 MCG TABLET GT SCH (05:43)
[2019-05-19] MEDS: FAMOTIDINE 20 MG TABLET GT SCH (05:43)
[2019-05-19] MEDS: ALENDRONATE GT SCH (05:43)
[2019-05-19] MEDS: CARBIDOPA/LEVODOPA 25-100MG TABLET GT SCH ×3 (05:43→21:10)
[2019-05-19] MEDS: HYDROGEN PEROXIDE 3% 118 ML BOTTLE TP SCH ×2 (07:51→19:48)
[2019-05-19] MEDS: CALCIUM CARB/VITAMIN D 600-400 MG TABLET GT SCH ×2 (09:05→21:09)
[2019-05-19] MEDS: ENOXAPARIN SODIUM 30 MG/0.3 ML DISP.SYRIN SUBCUT SCH (09:06)
[2019-05-19] MEDS: COD LIVER OIL/ZINC OXIDE OINT 113 GM TUBE TP SCH ×2 (09:06→21:10)
[2019-05-19 09:13] VITALS: BP 137/57
--- NOTE | 2019-05-19 18:21 | NUR ---
In stable condition,no respiratory distress,trach connected to p mist ,afebrile temp 98.8.
[2019-05-19] MEDS: MINERAL OIL/PETROLAT OPHT OINT 3.5 GM TUBE EACHEYE SCH (21:09)
[2019-05-19] MEDS: PROTEIN SUPPLEMENT (PROSTAT) 30 ML LIQUID GT SCH (21:09)
[2019-05-19] MEDS: SACCHAROMYCES BOULARDII GT SCH (21:09)
[2019-05-19 23:27] VITALS: BP 128/65
[2019-05-20] MEDS: IPRATROPIUM BROMIDE 0.5 MG/2.5 ML NEBU NEB SCH ×4 (00:37→19:29)
[2019-05-20] MEDS: ALBUTEROL SULFATE 2.5 MG/3 ML NEBU NEB SCH ×4 (00:37→19:29)
[2019-05-20] MEDS: POLYVINYL ALCOHOL OPHT DROPS 15 ML BOTTLE EACHEYE SCH ×6 (01:00→20:48)
[2019-05-20] MEDS: OSMOLITE 1.2 CAL 1,000 ML LIQUID GT PRN (03:30)
[2019-05-20] MEDS: FAMOTIDINE 20 MG TABLET GT SCH (06:10)
[2019-05-20] MEDS: LEVOTHYROXINE SODIUM 50 MCG TABLET GT SCH (06:10)
[2019-05-20] MEDS: CARBIDOPA/LEVODOPA 25-100MG TABLET GT SCH ×3 (06:10→21:00)
[2019-05-20] MEDS: COD LIVER OIL/ZINC OXIDE OINT 113 GM TUBE TP SCH ×2 (08:16→20:48)
[2019-05-20] MEDS: CALCIUM CARB/VITAMIN D 600-400 MG TABLET GT SCH ×2 (08:16→20:48)
[2019-05-20] MEDS: ENOXAPARIN SODIUM 30 MG/0.3 ML DISP.SYRIN SUBCUT SCH (08:17)
[2019-05-20] MEDS: HYDROGEN PEROXIDE 3% 118 ML BOTTLE TP SCH ×2 (09:34→20:49)
[2019-05-20 11:28] VITALS: BP 138/78
[2019-05-20 20:20] VITALS: BP 133/89
[2019-05-20] MEDS: SACCHAROMYCES BOULARDII GT SCH (20:48)
[2019-05-20] MEDS: MINERAL OIL/PETROLAT OPHT OINT 3.5 GM TUBE EACHEYE SCH (20:48)
[2019-05-20] MEDS: PROTEIN SUPPLEMENT (PROSTAT) 30 ML LIQUID GT SCH (20:48)
[2019-05-21] MEDS: ALBUTEROL SULFATE 2.5 MG/3 ML NEBU NEB SCH ×4 (00:45→19:31)
[2019-05-21] MEDS: IPRATROPIUM BROMIDE 0.5 MG/2.5 ML NEBU NEB SCH ×4 (00:45→19:31)
[2019-05-21] MEDS: POLYVINYL ALCOHOL OPHT DROPS 15 ML BOTTLE EACHEYE SCH ×6 (01:00→20:48)
[2019-05-21] MEDS: OSMOLITE 1.2 CAL 1,000 ML LIQUID GT PRN (03:34)
[2019-05-21] MEDS: LEVOTHYROXINE SODIUM 50 MCG TABLET GT SCH (05:58)
[2019-05-21] MEDS: CARBIDOPA/LEVODOPA 25-100MG TABLET GT SCH ×3 (05:58→21:08)
[2019-05-21] MEDS: FAMOTIDINE 20 MG TABLET GT SCH (05:59)
[2019-05-21] MEDS: CALCIUM CARB/VITAMIN D 600-400 MG TABLET GT SCH ×2 (08:41→20:49)
[2019-05-21] MEDS: COD LIVER OIL/ZINC OXIDE OINT 113 GM TUBE TP SCH ×2 (08:41→20:48)
[2019-05-21] MEDS: ENOXAPARIN SODIUM 30 MG/0.3 ML DISP.SYRIN SUBCUT SCH (08:42)
[2019-05-21] MEDS: HYDROGEN PEROXIDE 3% 118 ML BOTTLE TP SCH ×2 (09:02→20:48)
[2019-05-21 10:39] VITALS: BP 103/61
[2019-05-21 20:38] VITALS: BP 137/62
[2019-05-21] MEDS: PROTEIN SUPPLEMENT (PROSTAT) 30 ML LIQUID GT SCH (20:48)
[2019-05-21] MEDS: MINERAL OIL/PETROLAT OPHT OINT 3.5 GM TUBE EACHEYE SCH (20:48)
[2019-05-21] MEDS: SACCHAROMYCES BOULARDII GT SCH (20:50)
[2019-05-22] MEDS: IPRATROPIUM BROMIDE 0.5 MG/2.5 ML NEBU NEB SCH ×4 (00:40→19:39)
[2019-05-22] MEDS: ALBUTEROL SULFATE 2.5 MG/3 ML NEBU NEB SCH ×4 (00:40→19:39)
[2019-05-22] MEDS: POLYVINYL ALCOHOL OPHT DROPS 15 ML BOTTLE EACHEYE SCH ×6 (01:00→20:57)
[2019-05-22] MEDS: OSMOLITE 1.2 CAL 1,000 ML LIQUID GT PRN ×3 (03:49→21:42)
[2019-05-22] MEDS: CARBIDOPA/LEVODOPA 25-100MG TABLET GT SCH ×3 (05:35→21:24)
[2019-05-22] MEDS: FAMOTIDINE 20 MG TABLET GT SCH (05:35)
[2019-05-22] MEDS: LEVOTHYROXINE SODIUM 50 MCG TABLET GT SCH (05:35)
[2019-05-22 08:00] VITALS: BP 111/61
[2019-05-22] MEDS: CALCIUM CARB/VITAMIN D 600-400 MG TABLET GT SCH ×2 (08:46→20:57)
[2019-05-22] MEDS: COD LIVER OIL/ZINC OXIDE OINT 113 GM TUBE TP SCH ×2 (08:46→20:57)
[2019-05-22] MEDS: ENOXAPARIN SODIUM 30 MG/0.3 ML DISP.SYRIN SUBCUT SCH (08:47)
[2019-05-22] MEDS: HYDROGEN PEROXIDE 3% 118 ML BOTTLE TP SCH ×2 (09:20→21:23)
[2019-05-22 20:16] VITALS: BP 116/53
[2019-05-22] MEDS: PROTEIN SUPPLEMENT (PROSTAT) 30 ML LIQUID GT SCH (20:57)
[2019-05-22] MEDS: SACCHAROMYCES BOULARDII GT SCH (20:57)
[2019-05-22] MEDS: MINERAL OIL/PETROLAT OPHT OINT 3.5 GM TUBE EACHEYE SCH (21:24)
[2019-05-23] MEDS: ALBUTEROL SULFATE 2.5 MG/3 ML NEBU NEB SCH ×4 (01:09→19:27)
[2019-05-23] MEDS: IPRATROPIUM BROMIDE 0.5 MG/2.5 ML NEBU NEB SCH ×4 (01:09→19:27)
[2019-05-23] MEDS: POLYVINYL ALCOHOL OPHT DROPS 15 ML BOTTLE EACHEYE SCH ×6 (01:15→20:51)
[2019-05-23] MEDS: FAMOTIDINE 20 MG TABLET GT SCH (05:34)
[2019-05-23] MEDS: LEVOTHYROXINE SODIUM 50 MCG TABLET GT SCH (05:34)
[2019-05-23] MEDS: CARBIDOPA/LEVODOPA 25-100MG TABLET GT SCH ×3 (05:34→21:12)
[2019-05-23 08:00] VITALS: BP 122/58
[2019-05-23] MEDS: HYDROGEN PEROXIDE 3% 118 ML BOTTLE TP SCH ×2 (09:00→21:38)
[2019-05-23] MEDS: CALCIUM CARB/VITAMIN D 600-400 MG TABLET GT SCH ×2 (09:08→20:51)
[2019-05-23] MEDS: ENOXAPARIN SODIUM 30 MG/0.3 ML DISP.SYRIN SUBCUT SCH (09:10)
[2019-05-23] MEDS: COD LIVER OIL/ZINC OXIDE OINT 113 GM TUBE TP SCH ×2 (09:10→20:51)
[2019-05-23] MEDS: PROTEIN SUPPLEMENT (PROSTAT) 30 ML LIQUID GT SCH (20:51)
[2019-05-23] MEDS: SACCHAROMYCES BOULARDII GT SCH (20:51)
[2019-05-23 21:01] VITALS: BP 123/64
[2019-05-23] MEDS: MINERAL OIL/PETROLAT OPHT OINT 3.5 GM TUBE EACHEYE SCH (21:12)
[2019-05-23] MEDS: OSMOLITE 1.2 CAL 1,000 ML LIQUID GT PRN (23:22)
[2019-05-24] MEDS: POLYVINYL ALCOHOL OPHT DROPS 15 ML BOTTLE EACHEYE SCH ×6 (00:15→20:46)
[2019-05-24] MEDS: ALBUTEROL SULFATE 2.5 MG/3 ML NEBU NEB SCH ×4 (00:39→19:30)
[2019-05-24] MEDS: IPRATROPIUM BROMIDE 0.5 MG/2.5 ML NEBU NEB SCH ×4 (00:39→19:30)
[2019-05-24] MEDS: FAMOTIDINE 20 MG TABLET GT SCH (05:33)
[2019-05-24] MEDS: LEVOTHYROXINE SODIUM 50 MCG TABLET GT SCH (05:33)
[2019-05-24] MEDS: CARBIDOPA/LEVODOPA 25-100MG TABLET GT SCH ×3 (05:33→21:01)
[2019-05-24] MEDS: HYDROGEN PEROXIDE 3% 118 ML BOTTLE TP SCH ×2 (07:58→20:46)
[2019-05-24 08:00] VITALS: BP 144/47
[2019-05-24] MEDS: CALCIUM CARB/VITAMIN D 600-400 MG TABLET GT SCH ×2 (09:43→20:46)
[2019-05-24] MEDS: ENOXAPARIN SODIUM 30 MG/0.3 ML DISP.SYRIN SUBCUT SCH (09:44)
[2019-05-24] MEDS: COD LIVER OIL/ZINC OXIDE OINT 113 GM TUBE TP SCH ×2 (09:44→20:46)
[2019-05-24] MEDS: diphenhydrAMINE 25 MG/10 ML UDC NG PRN (09:45)
[2019-05-24] MEDS: diphenhydrAMINE 1% CREAM 28.3 GM TUBE TP PRN (09:45)
[2019-05-24 20:18] VITALS: BP 122/79
[2019-05-24] MEDS: PROTEIN SUPPLEMENT (PROSTAT) 30 ML LIQUID GT SCH (20:46)
[2019-05-24] MEDS: MINERAL OIL/PETROLAT OPHT OINT 3.5 GM TUBE EACHEYE SCH (20:46)
[2019-05-24] MEDS: SACCHAROMYCES BOULARDII GT SCH (20:52)
[2019-05-25] MEDS: IPRATROPIUM BROMIDE 0.5 MG/2.5 ML NEBU NEB SCH ×4 (00:45→19:25)
[2019-05-25] MEDS: ALBUTEROL SULFATE 2.5 MG/3 ML NEBU NEB SCH ×4 (00:45→19:25)
[2019-05-25] MEDS: POLYVINYL ALCOHOL OPHT DROPS 15 ML BOTTLE EACHEYE SCH ×6 (01:06→21:06)
[2019-05-25] MEDS: OSMOLITE 1.2 CAL 1,000 ML LIQUID GT PRN (01:06)
[2019-05-25] MEDS: LEVOTHYROXINE SODIUM 50 MCG TABLET GT SCH (05:20)
[2019-05-25] MEDS: CARBIDOPA/LEVODOPA 25-100MG TABLET GT SCH ×3 (05:20→21:06)
[2019-05-25] MEDS: FAMOTIDINE 20 MG TABLET GT SCH (05:34)
[2019-05-25 08:00] VITALS: BP 127/64
[2019-05-25] MEDS: ENOXAPARIN SODIUM 30 MG/0.3 ML DISP.SYRIN SUBCUT SCH (08:21)
[2019-05-25] MEDS: CALCIUM CARB/VITAMIN D 600-400 MG TABLET GT SCH ×2 (08:21→21:06)
[2019-05-25] MEDS: COD LIVER OIL/ZINC OXIDE OINT 113 GM TUBE TP SCH ×2 (08:22→21:06)
[2019-05-25] MEDS: HYDROGEN PEROXIDE 3% 118 ML BOTTLE TP SCH ×2 (08:42→21:01)
[2019-05-25 20:00] VITALS: BP 115/56
[2019-05-25] MEDS: SACCHAROMYCES BOULARDII GT SCH (21:06)
[2019-05-25] MEDS: MINERAL OIL/PETROLAT OPHT OINT 3.5 GM TUBE EACHEYE SCH (21:06)
[2019-05-25] MEDS: PROTEIN SUPPLEMENT (PROSTAT) 30 ML LIQUID GT SCH (21:06)
[2019-05-26] MEDS: OSMOLITE 1.2 CAL 1,000 ML LIQUID GT PRN (01:27)
[2019-05-26] MEDS: POLYVINYL ALCOHOL OPHT DROPS 15 ML BOTTLE EACHEYE SCH ×6 (01:27→21:08)
[2019-05-26] MEDS: ALBUTEROL SULFATE 2.5 MG/3 ML NEBU NEB SCH ×4 (01:55→19:09)
[2019-05-26] MEDS: IPRATROPIUM BROMIDE 0.5 MG/2.5 ML NEBU NEB SCH ×4 (01:55→19:09)
[2019-05-26] MEDS: LEVOTHYROXINE SODIUM 50 MCG TABLET GT SCH (06:03)
[2019-05-26] MEDS: ALENDRONATE GT SCH (06:03)
[2019-05-26] MEDS: CARBIDOPA/LEVODOPA 25-100MG TABLET GT SCH ×3 (06:03→22:33)
[2019-05-26] MEDS: FAMOTIDINE 20 MG TABLET GT SCH (06:03)
[2019-05-26] MEDS: COD LIVER OIL/ZINC OXIDE OINT 113 GM TUBE TP SCH ×2 (08:11→21:15)
[2019-05-26] MEDS: CALCIUM CARB/VITAMIN D 600-400 MG TABLET GT SCH ×2 (08:11→21:09)
[2019-05-26] MEDS: ENOXAPARIN SODIUM 30 MG/0.3 ML DISP.SYRIN SUBCUT SCH (08:13)
[2019-05-26 08:30] VITALS: BP 104/54
[2019-05-26] MEDS: HYDROGEN PEROXIDE 3% 118 ML BOTTLE TP SCH ×2 (09:40→19:09)
--- NOTE | 2019-05-26 18:45 | NUR ---
Face time done with patient's son Adalberto at this time.
[2019-05-26 20:00] VITALS: BP 122/48
[2019-05-26] MEDS: MINERAL OIL/PETROLAT OPHT OINT 3.5 GM TUBE EACHEYE SCH (21:09)
[2019-05-26] MEDS: SACCHAROMYCES BOULARDII GT SCH (21:15)
[2019-05-26] MEDS: PROTEIN SUPPLEMENT (PROSTAT) 30 ML LIQUID GT SCH (21:15)
[2019-05-27] MEDS: ALBUTEROL SULFATE 2.5 MG/3 ML NEBU NEB SCH ×4 (00:35→19:49)
[2019-05-27] MEDS: IPRATROPIUM BROMIDE 0.5 MG/2.5 ML NEBU NEB SCH ×4 (00:35→19:49)
[2019-05-27] MEDS: OSMOLITE 1.2 CAL 1,000 ML LIQUID GT PRN (00:49)
[2019-05-27] MEDS: POLYVINYL ALCOHOL OPHT DROPS 15 ML BOTTLE EACHEYE SCH ×6 (01:28→21:18)
[2019-05-27] MEDS: diphenhydrAMINE 25 MG/10 ML UDC NG PRN (01:28)
[2019-05-27] MEDS: FAMOTIDINE 20 MG TABLET GT SCH (05:50)
[2019-05-27] MEDS: CARBIDOPA/LEVODOPA 25-100MG TABLET GT SCH ×3 (05:50→21:20)
[2019-05-27] MEDS: LEVOTHYROXINE SODIUM 50 MCG TABLET GT SCH (05:50)
[2019-05-27 08:30] VITALS: BP 125/62
[2019-05-27] MEDS: COD LIVER OIL/ZINC OXIDE OINT 113 GM TUBE TP SCH ×2 (08:44→21:20)
[2019-05-27] MEDS: ENOXAPARIN SODIUM 30 MG/0.3 ML DISP.SYRIN SUBCUT SCH (08:44)
[2019-05-27] MEDS: CALCIUM CARB/VITAMIN D 600-400 MG TABLET GT SCH ×2 (08:44→21:18)
[2019-05-27] MEDS: HYDROGEN PEROXIDE 3% 118 ML BOTTLE TP SCH ×2 (09:00→21:28)
[2019-05-27 20:47] VITALS: BP 108/53
[2019-05-27] MEDS: MINERAL OIL/PETROLAT OPHT OINT 3.5 GM TUBE EACHEYE SCH (21:18)
[2019-05-27] MEDS: SACCHAROMYCES BOULARDII GT SCH (21:18)
[2019-05-27] MEDS: PROTEIN SUPPLEMENT (PROSTAT) 30 ML LIQUID GT SCH (21:20)
[2019-05-28] MEDS: ALBUTEROL SULFATE 2.5 MG/3 ML NEBU NEB SCH ×4 (01:14→19:29)
[2019-05-28] MEDS: IPRATROPIUM BROMIDE 0.5 MG/2.5 ML NEBU NEB SCH ×4 (01:14→19:29)
[2019-05-28] MEDS: POLYVINYL ALCOHOL OPHT DROPS 15 ML BOTTLE EACHEYE SCH ×6 (01:17→21:01)
[2019-05-28] MEDS: OSMOLITE 1.2 CAL 1,000 ML LIQUID GT PRN ×2 (02:04→23:56)
[2019-05-28] MEDS: LEVOTHYROXINE SODIUM 50 MCG TABLET GT SCH (06:06)
[2019-05-28] MEDS: CARBIDOPA/LEVODOPA 25-100MG TABLET GT SCH ×3 (06:06→21:01)
[2019-05-28] MEDS: FAMOTIDINE 20 MG TABLET GT SCH (06:06)
[2019-05-28 08:00] VITALS: BP 114/57
[2019-05-28] MEDS: ENOXAPARIN SODIUM 30 MG/0.3 ML DISP.SYRIN SUBCUT SCH (08:41)
[2019-05-28] MEDS: COD LIVER OIL/ZINC OXIDE OINT 113 GM TUBE TP SCH ×2 (08:41→21:01)
[2019-05-28] MEDS: CALCIUM CARB/VITAMIN D 600-400 MG TABLET GT SCH ×2 (08:41→21:01)
[2019-05-28] MEDS: HYDROGEN PEROXIDE 3% 118 ML BOTTLE TP SCH ×2 (09:00→20:56)
--- NOTE | 2019-05-28 16:14 | NUR ---
This and Subacute Deck Scaler Bala Mane provided an update to patient's daughter Kimberlee and son Adalberto via email that per advisement from [facility], [facility], and CDC, visitation restrictions will continue to remain in place for all game manager care facilities in order to protect the health and safety of residents and staff. Therefore [facility] will continue to restrict all visitations, until further notice.
[2019-05-28] MEDS: diphenhydrAMINE 25 MG/10 ML UDC NG PRN (17:45)
[2019-05-28 20:51] VITALS: BP 126/68
[2019-05-28] MEDS: MINERAL OIL/PETROLAT OPHT OINT 3.5 GM TUBE EACHEYE SCH (21:01)
[2019-05-28] MEDS: SACCHAROMYCES BOULARDII GT SCH (21:01)
[2019-05-28] MEDS: PROTEIN SUPPLEMENT (PROSTAT) 30 ML LIQUID GT SCH (21:01)
[2019-05-29] MEDS: IPRATROPIUM BROMIDE 0.5 MG/2.5 ML NEBU NEB SCH ×4 (00:41→18:52)
[2019-05-29] MEDS: ALBUTEROL SULFATE 2.5 MG/3 ML NEBU NEB SCH ×4 (00:41→18:52)
[2019-05-29] MEDS: POLYVINYL ALCOHOL OPHT DROPS 15 ML BOTTLE EACHEYE SCH ×6 (01:08→20:33)
[2019-05-29] MEDS: CARBIDOPA/LEVODOPA 25-100MG TABLET GT SCH ×3 (05:17→21:51)
[2019-05-29] MEDS: LEVOTHYROXINE SODIUM 50 MCG TABLET GT SCH (05:17)
[2019-05-29] MEDS: FAMOTIDINE 20 MG TABLET GT SCH (06:00)
[2019-05-29] MEDS: HYDROGEN PEROXIDE 3% 118 ML BOTTLE TP SCH ×2 (08:29→18:52)
[2019-05-29] MEDS: CALCIUM CARB/VITAMIN D 600-400 MG TABLET GT SCH ×2 (09:00→20:33)
[2019-05-29] MEDS: ENOXAPARIN SODIUM 30 MG/0.3 ML DISP.SYRIN SUBCUT SCH (09:02)
[2019-05-29] MEDS: COD LIVER OIL/ZINC OXIDE OINT 113 GM TUBE TP SCH ×2 (09:02→20:33)
[2019-05-29 11:46] VITALS: BP 105/50
[2019-05-29] MEDS: SACCHAROMYCES BOULARDII GT SCH (20:33)
[2019-05-29] MEDS: MINERAL OIL/PETROLAT OPHT OINT 3.5 GM TUBE EACHEYE SCH (20:33)
[2019-05-29] MEDS: PROTEIN SUPPLEMENT (PROSTAT) 30 ML LIQUID GT SCH (20:33)
[2019-05-29 20:59] VITALS: BP 112/53
[2019-05-30] MEDS: IPRATROPIUM BROMIDE 0.5 MG/2.5 ML NEBU NEB SCH ×4 (00:33→19:56)
[2019-05-30] MEDS: ALBUTEROL SULFATE 2.5 MG/3 ML NEBU NEB SCH ×4 (00:33→19:56)
[2019-05-30] MEDS: OSMOLITE 1.2 CAL 1,000 ML LIQUID GT PRN (00:38)
[2019-05-30] MEDS: POLYVINYL ALCOHOL OPHT DROPS 15 ML BOTTLE EACHEYE SCH ×6 (00:38→21:34)
[2019-05-30] MEDS: CARBIDOPA/LEVODOPA 25-100MG TABLET GT SCH ×3 (05:47→21:35)
[2019-05-30] MEDS: FAMOTIDINE 20 MG TABLET GT SCH (05:47)
[2019-05-30] MEDS: LEVOTHYROXINE SODIUM 50 MCG TABLET GT SCH (05:47)
[2019-05-30 08:30] VITALS: BP 123/57
[2019-05-30] MEDS: CALCIUM CARB/VITAMIN D 600-400 MG TABLET GT SCH ×2 (08:50→21:34)
[2019-05-30] MEDS: COD LIVER OIL/ZINC OXIDE OINT 113 GM TUBE TP SCH ×2 (08:52→21:34)
[2019-05-30] MEDS: ENOXAPARIN SODIUM 30 MG/0.3 ML DISP.SYRIN SUBCUT SCH (08:52)
[2019-05-30] MEDS: HYDROGEN PEROXIDE 3% 118 ML BOTTLE TP SCH ×2 (09:00→21:52)
[2019-05-30 21:10] VITALS: BP 134/48
[2019-05-30] MEDS: PROTEIN SUPPLEMENT (PROSTAT) 30 ML LIQUID GT SCH (21:34)
[2019-05-30] MEDS: MINERAL OIL/PETROLAT OPHT OINT 3.5 GM TUBE EACHEYE SCH (21:34)
[2019-05-30] MEDS: SACCHAROMYCES BOULARDII GT SCH (21:34)
[2019-05-31] MEDS: POLYVINYL ALCOHOL OPHT DROPS 15 ML BOTTLE EACHEYE SCH ×6 (01:00→21:09)
[2019-05-31] MEDS: IPRATROPIUM BROMIDE 0.5 MG/2.5 ML NEBU NEB SCH ×4 (01:26→19:55)
[2019-05-31] MEDS: ALBUTEROL SULFATE 2.5 MG/3 ML NEBU NEB SCH ×4 (01:26→19:55)
[2019-05-31] MEDS: OSMOLITE 1.2 CAL 1,000 ML LIQUID GT PRN (02:58)
[2019-05-31] MEDS: CARBIDOPA/LEVODOPA 25-100MG TABLET GT SCH ×3 (05:39→21:12)
[2019-05-31] MEDS: FAMOTIDINE 20 MG TABLET GT SCH (05:50)
[2019-05-31] MEDS: LEVOTHYROXINE SODIUM 50 MCG TABLET GT SCH (05:50)
[2019-05-31 08:00] VITALS: BP 137/59
[2019-05-31] MEDS: ENOXAPARIN SODIUM 30 MG/0.3 ML DISP.SYRIN SUBCUT SCH (08:04)
[2019-05-31] MEDS: CALCIUM CARB/VITAMIN D 600-400 MG TABLET GT SCH ×2 (08:05→21:10)
[2019-05-31] MEDS: COD LIVER OIL/ZINC OXIDE OINT 113 GM TUBE TP SCH ×2 (08:05→21:12)
[2019-05-31] MEDS: HYDROGEN PEROXIDE 3% 118 ML BOTTLE TP SCH ×2 (09:00→21:28)
[2019-05-31] MEDS: MINERAL OIL/PETROLAT OPHT OINT 3.5 GM TUBE EACHEYE SCH (21:10)
[2019-05-31] MEDS: SACCHAROMYCES BOULARDII GT SCH (21:12)
[2019-05-31] MEDS: PROTEIN SUPPLEMENT (PROSTAT) 30 ML LIQUID GT SCH (21:12)
[2019-05-31 21:30] VITALS: BP_SYST 130; BP_SYST 138; BP_DIAS 60; BP_DIAS 89
[2019-06-01] MEDS: POLYVINYL ALCOHOL OPHT DROPS 15 ML BOTTLE EACHEYE SCH ×6 (01:00→21:07)
[2019-06-01] MEDS: ALBUTEROL SULFATE 2.5 MG/3 ML NEBU NEB SCH ×4 (01:29→19:14)
[2019-06-01] MEDS: IPRATROPIUM BROMIDE 0.5 MG/2.5 ML NEBU NEB SCH ×4 (01:29→19:14)
[2019-06-01] MEDS: CARBIDOPA/LEVODOPA 25-100MG TABLET GT SCH ×3 (05:57→21:07)
[2019-06-01] MEDS: FAMOTIDINE 20 MG TABLET GT SCH (05:57)
[2019-06-01] MEDS: LEVOTHYROXINE SODIUM 50 MCG TABLET GT SCH (05:57)
[2019-06-01] MEDS: OSMOLITE 1.2 CAL 1,000 ML LIQUID GT PRN (07:02)
[2019-06-01 08:00] VITALS: BP 134/48
[2019-06-01] MEDS: HYDROGEN PEROXIDE 3% 118 ML BOTTLE TP SCH ×2 (08:15→21:00)
[2019-06-01] MEDS: CALCIUM CARB/VITAMIN D 600-400 MG TABLET GT SCH ×2 (09:06→21:07)
[2019-06-01] MEDS: COD LIVER OIL/ZINC OXIDE OINT 113 GM TUBE TP SCH ×2 (09:08→21:07)
[2019-06-01] MEDS: ENOXAPARIN SODIUM 30 MG/0.3 ML DISP.SYRIN SUBCUT SCH (09:08)
[2019-06-01] MEDS: diphenhydrAMINE 25 MG/10 ML UDC GT PRN (15:44)
[2019-06-01 20:47] VITALS: BP 128/84
[2019-06-01] MEDS: SACCHAROMYCES BOULARDII GT SCH (21:07)
[2019-06-01] MEDS: MINERAL OIL/PETROLAT OPHT OINT 3.5 GM TUBE EACHEYE SCH (21:07)
[2019-06-01] MEDS: PROTEIN SUPPLEMENT (PROSTAT) 30 ML LIQUID GT SCH (21:07)
[2019-06-02] MEDS: ALBUTEROL SULFATE 2.5 MG/3 ML NEBU NEB SCH ×4 (00:58→19:36)
[2019-06-02] MEDS: IPRATROPIUM BROMIDE 0.5 MG/2.5 ML NEBU NEB SCH ×4 (00:58→19:36)
[2019-06-02] MEDS: POLYVINYL ALCOHOL OPHT DROPS 15 ML BOTTLE EACHEYE SCH ×6 (01:43→20:38)
[2019-06-02] MEDS: OSMOLITE 1.2 CAL 1,000 ML LIQUID GT PRN (04:01)
[2019-06-02] MEDS: FAMOTIDINE 20 MG TABLET GT SCH (05:51)
[2019-06-02] MEDS: CARBIDOPA/LEVODOPA 25-100MG TABLET GT SCH ×3 (05:51→22:04)
[2019-06-02] MEDS: ALENDRONATE GT SCH (05:51)
[2019-06-02] MEDS: LEVOTHYROXINE SODIUM 50 MCG TABLET GT SCH (05:51)
[2019-06-02 08:06] VITALS: BP 129/57
[2019-06-02] MEDS: CALCIUM CARB/VITAMIN D 600-400 MG TABLET GT SCH ×2 (08:07→20:36)
[2019-06-02] MEDS: COD LIVER OIL/ZINC OXIDE OINT 113 GM TUBE TP SCH ×2 (08:08→20:39)
[2019-06-02] MEDS: ENOXAPARIN SODIUM 30 MG/0.3 ML DISP.SYRIN SUBCUT SCH (08:08)
[2019-06-02] MEDS: HYDROGEN PEROXIDE 3% 118 ML BOTTLE TP SCH ×2 (09:41→21:36)
--- NOTE | 2019-06-02 14:00 | NUR ---
Rag Baler care done by Dr Dickerson.
[2019-06-02 20:00] VITALS: BP 116/60
[2019-06-02] MEDS: PROTEIN SUPPLEMENT (PROSTAT) 30 ML LIQUID GT SCH (20:39)
[2019-06-02] MEDS: MINERAL OIL/PETROLAT OPHT OINT 3.5 GM TUBE EACHEYE SCH (20:39)
[2019-06-02] MEDS: SACCHAROMYCES BOULARDII GT SCH (20:39)
[2019-06-03] MEDS: POLYVINYL ALCOHOL OPHT DROPS 15 ML BOTTLE EACHEYE SCH ×6 (01:17→20:45)
[2019-06-03] MEDS: ALBUTEROL SULFATE 2.5 MG/3 ML NEBU NEB SCH ×4 (01:32→19:40)
[2019-06-03] MEDS: IPRATROPIUM BROMIDE 0.5 MG/2.5 ML NEBU NEB SCH ×4 (01:32→19:40)
[2019-06-03] MEDS: CARBIDOPA/LEVODOPA 25-100MG TABLET GT SCH ×3 (05:51→22:16)
[2019-06-03] MEDS: FAMOTIDINE 20 MG TABLET GT SCH (05:51)
[2019-06-03] MEDS: LEVOTHYROXINE SODIUM 50 MCG TABLET GT SCH (05:51)
[2019-06-03 08:30] VITALS: BP 128/66
[2019-06-03] MEDS: HYDROGEN PEROXIDE 3% 118 ML BOTTLE TP SCH ×2 (09:12→21:26)
[2019-06-03] MEDS: COD LIVER OIL/ZINC OXIDE OINT 113 GM TUBE TP SCH ×2 (09:50→20:46)
[2019-06-03] MEDS: CALCIUM CARB/VITAMIN D 600-400 MG TABLET GT SCH ×2 (09:50→20:46)
[2019-06-03] MEDS: ENOXAPARIN SODIUM 30 MG/0.3 ML DISP.SYRIN SUBCUT SCH (09:50)
--- NOTE | 2019-06-03 13:57 | NUR ---
10:33am: This SW and Caul Fat Puller Bala Mane called patient's daughter Kimberlee [phone] to discuss a questions Kimberlee had asked this SW and Bala, via email. Unable to connect with Kimberlee, and therefore this SW left a voicemail message asking Kimberlee to call back. SW also emailed Kimberlee stated that an attempt was made to contact her via telephone, but a voicemail message was left. SW also asked Kimberlee via email to call this SW back.
--- NOTE | 2019-06-03 14:37 | NUR ---
SW notified patient's daughter Kimberlee and son Adalberto via email that the next IDT meeting for the patient has been scheduled for 06/08/2019 at 11am, and asked them to let this SW know if either one of them want to participate in meeting via speaker phone.
--- NOTE | 2019-06-03 16:56 | NUR ---
3:20pm: This SW and Accounts Receivable Specialist Bala Mane called patient's daughter Kimberlee back, , after SW received a voicemail message from patient's daughter Kimberlee, in response to the voicemail message this SW had left Kimberlee earlier today. Kimberlee wanted to discuss the option of patient's caregiver Armenta having some phone time (1 x week) with the patient, so patient can continue to have some cognitive stimulation in her [place] tongue ([place]ian) during this time of visitation restrictions. Accounts Receivable Specialist Bala and this SW were in agreement, and asked Kimberlee to maybe schedule a specific day during the week for Kathi to call that would not interfere with Kimberlee's and Adalberto's days that they want to FaceTime with the patient. Kimberlee expressed understanding and agreement, and stated she would coordinate a schedule and let this SW know. Kimberlee also stated that she received this SW's email regarding the IDT meeting for 06/07, and Kimberlee stated that she would like to be on speaker phone during the meeting. MARINO provided instructions to Kimberlee, stating for Kimberlee to be available between the hours of 11am--12pm on 06/07, in order to receive SW's call during the meeting. Kimberlee expressed understanding and agreement.
[2019-06-03] MEDS: diphenhydrAMINE 25 MG/10 ML UDC GT PRN (18:34)
[2019-06-03 20:00] VITALS: BP 128/90
[2019-06-03] MEDS: MINERAL OIL/PETROLAT OPHT OINT 3.5 GM TUBE EACHEYE SCH (20:46)
[2019-06-03] MEDS: PROTEIN SUPPLEMENT (PROSTAT) 30 ML LIQUID GT SCH (20:46)
[2019-06-03] MEDS: SACCHAROMYCES BOULARDII GT SCH (20:46)
[2019-06-04] MEDS: POLYVINYL ALCOHOL OPHT DROPS 15 ML BOTTLE EACHEYE SCH ×6 (01:13→20:01)
[2019-06-04] MEDS: IPRATROPIUM BROMIDE 0.5 MG/2.5 ML NEBU NEB SCH ×4 (01:21→19:23)
[2019-06-04] MEDS: ALBUTEROL SULFATE 2.5 MG/3 ML NEBU NEB SCH ×4 (01:21→19:23)
[2019-06-04] MEDS: OSMOLITE 1.2 CAL 1,000 ML LIQUID GT PRN (03:07)
[2019-06-04] MEDS: FAMOTIDINE 20 MG TABLET GT SCH (06:04)
[2019-06-04] MEDS: CARBIDOPA/LEVODOPA 25-100MG TABLET GT SCH ×3 (06:04→21:35)
[2019-06-04] MEDS: LEVOTHYROXINE SODIUM 50 MCG TABLET GT SCH (06:04)
[2019-06-04] MEDS: CALCIUM CARB/VITAMIN D 600-400 MG TABLET GT SCH ×2 (08:13→20:01)
[2019-06-04] MEDS: ENOXAPARIN SODIUM 30 MG/0.3 ML DISP.SYRIN SUBCUT SCH (08:14)
[2019-06-04] MEDS: COD LIVER OIL/ZINC OXIDE OINT 113 GM TUBE TP SCH ×2 (08:14→20:01)
[2019-06-04] MEDS: HYDROGEN PEROXIDE 3% 118 ML BOTTLE TP SCH ×2 (09:14→21:27)
[2019-06-04 11:14] VITALS: BP 127/61
[2019-06-04 20:00] VITALS: BP 118/61
[2019-06-04] MEDS: SACCHAROMYCES BOULARDII GT SCH (20:01)
[2019-06-04] MEDS: PROTEIN SUPPLEMENT (PROSTAT) 30 ML LIQUID GT SCH (20:01)
[2019-06-04] MEDS: MINERAL OIL/PETROLAT OPHT OINT 3.5 GM TUBE EACHEYE SCH (20:01)
[2019-06-05] MEDS: ALBUTEROL SULFATE 2.5 MG/3 ML NEBU NEB SCH ×4 (00:42→19:27)
[2019-06-05] MEDS: IPRATROPIUM BROMIDE 0.5 MG/2.5 ML NEBU NEB SCH ×4 (00:42→19:27)
[2019-06-05] MEDS: POLYVINYL ALCOHOL OPHT DROPS 15 ML BOTTLE EACHEYE SCH ×6 (01:09→21:00)
[2019-06-05] MEDS: OSMOLITE 1.2 CAL 1,000 ML LIQUID GT PRN (03:57)
[2019-06-05] MEDS: CARBIDOPA/LEVODOPA 25-100MG TABLET GT SCH ×3 (05:41→22:16)
[2019-06-05] MEDS: LEVOTHYROXINE SODIUM 50 MCG TABLET GT SCH (05:41)
[2019-06-05] MEDS: FAMOTIDINE 20 MG TABLET GT SCH (05:41)
[2019-06-05] MEDS: HYDROGEN PEROXIDE 3% 118 ML BOTTLE TP SCH ×2 (08:27→21:35)
[2019-06-05] MEDS: CALCIUM CARB/VITAMIN D 600-400 MG TABLET GT SCH ×2 (08:49→21:00)
[2019-06-05] MEDS: COD LIVER OIL/ZINC OXIDE OINT 113 GM TUBE TP SCH ×2 (08:50→21:00)
[2019-06-05] MEDS: ENOXAPARIN SODIUM 30 MG/0.3 ML DISP.SYRIN SUBCUT SCH (08:50)
[2019-06-05 11:34] VITALS: BP 125/72
[2019-06-05 20:49] VITALS: BP 123/50
[2019-06-05] MEDS: PROTEIN SUPPLEMENT (PROSTAT) 30 ML LIQUID GT SCH (21:00)
[2019-06-05] MEDS: MINERAL OIL/PETROLAT OPHT OINT 3.5 GM TUBE EACHEYE SCH (21:00)
[2019-06-05] MEDS: SACCHAROMYCES BOULARDII GT SCH (21:00)
[2019-06-06] MEDS: IPRATROPIUM BROMIDE 0.5 MG/2.5 ML NEBU NEB SCH ×4 (00:35→20:00)
[2019-06-06] MEDS: ALBUTEROL SULFATE 2.5 MG/3 ML NEBU NEB SCH ×4 (00:35→20:00)
[2019-06-06] MEDS: POLYVINYL ALCOHOL OPHT DROPS 15 ML BOTTLE EACHEYE SCH ×6 (01:05→21:51)
[2019-06-06] MEDS: OSMOLITE 1.2 CAL 1,000 ML LIQUID GT PRN (03:11)
[2019-06-06] MEDS: LEVOTHYROXINE SODIUM 50 MCG TABLET GT SCH (05:11)
[2019-06-06] MEDS: CARBIDOPA/LEVODOPA 25-100MG TABLET GT SCH ×3 (05:11→21:53)
[2019-06-06] MEDS: FAMOTIDINE 20 MG TABLET GT SCH (05:46)
[2019-06-06] MEDS: COD LIVER OIL/ZINC OXIDE OINT 113 GM TUBE TP SCH ×2 (09:04→21:53)
[2019-06-06] MEDS: CALCIUM CARB/VITAMIN D 600-400 MG TABLET GT SCH ×2 (09:04→21:53)
[2019-06-06] MEDS: ENOXAPARIN SODIUM 30 MG/0.3 ML DISP.SYRIN SUBCUT SCH (09:05)
[2019-06-06] MEDS: HYDROGEN PEROXIDE 3% 118 ML BOTTLE TP SCH ×2 (09:30→20:00)
[2019-06-06 10:08] VITALS: BP 127/49
[2019-06-06 21:13] VITALS: BP 113/49
[2019-06-06] MEDS: MINERAL OIL/PETROLAT OPHT OINT 3.5 GM TUBE EACHEYE SCH (21:51)
[2019-06-06] MEDS: SACCHAROMYCES BOULARDII GT SCH (21:53)
[2019-06-06] MEDS: PROTEIN SUPPLEMENT (PROSTAT) 30 ML LIQUID GT SCH (21:53)
[2019-06-07] MEDS: POLYVINYL ALCOHOL OPHT DROPS 15 ML BOTTLE EACHEYE SCH ×6 (01:51→20:35)
[2019-06-07] MEDS: IPRATROPIUM BROMIDE 0.5 MG/2.5 ML NEBU NEB SCH ×4 (02:08→19:36)
[2019-06-07] MEDS: ALBUTEROL SULFATE 2.5 MG/3 ML NEBU NEB SCH ×4 (02:08→19:36)
[2019-06-07] MEDS: diphenhydrAMINE 25 MG/10 ML UDC GT PRN (03:00)
[2019-06-07] MEDS: LEVOTHYROXINE SODIUM 50 MCG TABLET GT SCH (05:29)
[2019-06-07] MEDS: CARBIDOPA/LEVODOPA 25-100MG TABLET GT SCH ×3 (05:29→22:07)
[2019-06-07] MEDS: FAMOTIDINE 20 MG TABLET GT SCH (05:30)
[2019-06-07 08:00] VITALS: BP 128/51
[2019-06-07] MEDS: HYDROGEN PEROXIDE 3% 118 ML BOTTLE TP SCH ×2 (09:07→20:38)
[2019-06-07] MEDS: CALCIUM CARB/VITAMIN D 600-400 MG TABLET GT SCH ×2 (09:26→20:36)
[2019-06-07] MEDS: ENOXAPARIN SODIUM 30 MG/0.3 ML DISP.SYRIN SUBCUT SCH (09:27)
[2019-06-07] MEDS: COD LIVER OIL/ZINC OXIDE OINT 113 GM TUBE TP SCH ×2 (09:28→20:38)
[2019-06-07] MEDS: OSMOLITE 1.2 CAL 1,000 ML LIQUID GT PRN (09:38)
--- NOTE | 2019-06-07 12:45 | NUR ---
SEEN BY DANNIE Bailey AND WITH NNO.
[2019-06-07] MEDS: MINERAL OIL/PETROLAT OPHT OINT 3.5 GM TUBE EACHEYE SCH (20:35)
[2019-06-07] MEDS: SACCHAROMYCES BOULARDII GT SCH (20:37)
[2019-06-07] MEDS: PROTEIN SUPPLEMENT (PROSTAT) 30 ML LIQUID GT SCH (20:38)
[2019-06-07 22:05] VITALS: BP 119/64
[2019-06-08] MEDS: POLYVINYL ALCOHOL OPHT DROPS 15 ML BOTTLE EACHEYE SCH ×6 (00:07→21:30)
[2019-06-08] MEDS: ALBUTEROL SULFATE 2.5 MG/3 ML NEBU NEB SCH ×4 (01:31→19:22)
[2019-06-08] MEDS: IPRATROPIUM BROMIDE 0.5 MG/2.5 ML NEBU NEB SCH ×4 (01:31→19:22)
[2019-06-08] MEDS: FAMOTIDINE 20 MG TABLET GT SCH (04:22)
[2019-06-08] MEDS: LEVOTHYROXINE SODIUM 50 MCG TABLET GT SCH (04:22)
[2019-06-08] MEDS: CARBIDOPA/LEVODOPA 25-100MG TABLET GT SCH ×3 (04:22→21:41)
[2019-06-08] MEDS: OSMOLITE 1.2 CAL 1,000 ML LIQUID GT PRN (04:28)
[2019-06-08 07:54] VITALS: BP 144/61
[2019-06-08] MEDS: COD LIVER OIL/ZINC OXIDE OINT 113 GM TUBE TP SCH ×2 (09:00→21:33)
[2019-06-08] MEDS: CALCIUM CARB/VITAMIN D 600-400 MG TABLET GT SCH ×2 (09:00→21:30)
[2019-06-08] MEDS: ENOXAPARIN SODIUM 30 MG/0.3 ML DISP.SYRIN SUBCUT SCH (09:00)
[2019-06-08] MEDS: HYDROGEN PEROXIDE 3% 118 ML BOTTLE TP SCH ×2 (09:46→20:54)
--- NOTE | 2019-06-08 13:08 | NUR ---
Pharmacy Update from Today's 06/08/19 IDT Meeting: VS: Temp 97.6 BP 144/61 HR 72 LABS: (from 04/27/19, no new labs) Wbc 9.6 H/H 14.5/43.4 Plt 195 Na 141 K 3.9 Cl 106 CO2 29 BUN/SCr 20/0.6 BS 123 Ca 8.6 MEDICATION USE REVIEWED: > Pt not on any anti-psych or anti-seizure medications > Lovenox 30mg daily for DVT Prophylaxis. No bleeding episodes reported. Last plt 195 > On Synthroid 50mcg daily, last TSH 2.215 (0.358-3.740) on 01/18/19. > Pt on famotidine 20mg daily since 04/07/18, ok per renal function > Pt on Binosto 70mg weekly for osteoporosis since 04/15/18. > PRN MED USAGE: (May) Tylenol for pain used x 0 Tylenol for temp used x 0 Artificial Tears used x 0 (per Md, not to d/c despite lack of use as requested by pt family) Imodium used x 0 Benadryl used x 0 NEW ORDERS NOTED: > NA Pt was reviewed and discussed in depth, no medication issues at this time and all changes noted per staff. Family in attendance via phone conference (d/t current covid regulations). No medication concerns noted per family at this time as well. No further recs, will continue to monitor
--- NOTE | 2019-06-08 16:04 | NUR ---
INTERDISCIPLINARY PLAN OF CARE CONFERENCE was held today. Patient's daughter Kimberlee participated in the meeting via speaker phone. Dr. Yu and the Interdisciplinary Team reviewed the current plan of care in detail. RN reported on patient's current medical condition and skin condition. See RN IDT conference notes. No major changes in condition were reported. See all disciplines IDT notes and physician's progress notes for additional details. Kimberlee's questions were addressed by Dr. Yu and the IDT team, and Kimberlee expressed being content with the current plan of care.
[2019-06-08 21:29] VITALS: BP 120/60
[2019-06-08] MEDS: MINERAL OIL/PETROLAT OPHT OINT 3.5 GM TUBE EACHEYE SCH (21:30)
[2019-06-08] MEDS: SACCHAROMYCES BOULARDII GT SCH (21:31)
[2019-06-08] MEDS: PROTEIN SUPPLEMENT (PROSTAT) 30 ML LIQUID GT SCH (21:33)
[2019-06-09] MEDS: ALBUTEROL SULFATE 2.5 MG/3 ML NEBU NEB SCH ×4 (00:37→19:30)
[2019-06-09] MEDS: IPRATROPIUM BROMIDE 0.5 MG/2.5 ML NEBU NEB SCH ×4 (00:37→19:30)
[2019-06-09] MEDS: POLYVINYL ALCOHOL OPHT DROPS 15 ML BOTTLE EACHEYE SCH ×6 (01:00→21:41)
[2019-06-09] MEDS: CARBIDOPA/LEVODOPA 25-100MG TABLET GT SCH ×3 (06:09→21:45)
[2019-06-09] MEDS: ALENDRONATE GT SCH (06:09)
[2019-06-09] MEDS: LEVOTHYROXINE SODIUM 50 MCG TABLET GT SCH (06:09)
[2019-06-09] MEDS: FAMOTIDINE 20 MG TABLET GT SCH (06:10)
[2019-06-09] MEDS: HYDROGEN PEROXIDE 3% 118 ML BOTTLE TP SCH ×2 (08:20→21:21)
[2019-06-09] MEDS: CALCIUM CARB/VITAMIN D 600-400 MG TABLET GT SCH ×2 (09:14→21:41)
[2019-06-09] MEDS: COD LIVER OIL/ZINC OXIDE OINT 113 GM TUBE TP SCH ×2 (09:15→21:45)
[2019-06-09] MEDS: ENOXAPARIN SODIUM 30 MG/0.3 ML DISP.SYRIN SUBCUT SCH (09:17)
[2019-06-09 10:21] VITALS: BP 130/89
[2019-06-09] MEDS: OSMOLITE 1.2 CAL 1,000 ML LIQUID GT PRN (11:47)
[2019-06-09 20:00] VITALS: BP 119/54
[2019-06-09] MEDS: MINERAL OIL/PETROLAT OPHT OINT 3.5 GM TUBE EACHEYE SCH (21:41)
[2019-06-09] MEDS: PROTEIN SUPPLEMENT (PROSTAT) 30 ML LIQUID GT SCH (21:44)
[2019-06-09] MEDS: SACCHAROMYCES BOULARDII GT SCH (21:44)
[2019-06-10] MEDS: IPRATROPIUM BROMIDE 0.5 MG/2.5 ML NEBU NEB SCH ×4 (00:36→19:40)
[2019-06-10] MEDS: ALBUTEROL SULFATE 2.5 MG/3 ML NEBU NEB SCH ×4 (00:36→19:40)
[2019-06-10] MEDS: POLYVINYL ALCOHOL OPHT DROPS 15 ML BOTTLE EACHEYE SCH ×6 (01:13→21:30)
[2019-06-10] MEDS: FAMOTIDINE 20 MG TABLET GT SCH (05:59)
[2019-06-10] MEDS: LEVOTHYROXINE SODIUM 50 MCG TABLET GT SCH (05:59)
[2019-06-10] MEDS: CARBIDOPA/LEVODOPA 25-100MG TABLET GT SCH ×3 (05:59→21:31)
[2019-06-10] MEDS: CALCIUM CARB/VITAMIN D 600-400 MG TABLET GT SCH ×2 (09:09→21:30)
[2019-06-10] MEDS: HYDROGEN PEROXIDE 3% 118 ML BOTTLE TP SCH ×2 (09:12→20:36)
[2019-06-10] MEDS: COD LIVER OIL/ZINC OXIDE OINT 113 GM TUBE TP SCH ×2 (09:12→21:31)
[2019-06-10] MEDS: ENOXAPARIN SODIUM 30 MG/0.3 ML DISP.SYRIN SUBCUT SCH (09:12)
[2019-06-10 13:34] VITALS: BP 139/62
[2019-06-10] MEDS: diphenhydrAMINE 25 MG/10 ML UDC GT PRN (14:14)
[2019-06-10 20:17] VITALS: BP 123/61
[2019-06-10] MEDS: MINERAL OIL/PETROLAT OPHT OINT 3.5 GM TUBE EACHEYE SCH (21:30)
[2019-06-10] MEDS: SACCHAROMYCES BOULARDII GT SCH (21:31)
[2019-06-10] MEDS: PROTEIN SUPPLEMENT (PROSTAT) 30 ML LIQUID GT SCH (21:31)
[2019-06-11] MEDS: ALBUTEROL SULFATE 2.5 MG/3 ML NEBU NEB SCH ×4 (01:12→19:45)
[2019-06-11] MEDS: IPRATROPIUM BROMIDE 0.5 MG/2.5 ML NEBU NEB SCH ×4 (01:12→19:45)
[2019-06-11] MEDS: POLYVINYL ALCOHOL OPHT DROPS 15 ML BOTTLE EACHEYE SCH ×6 (01:15→20:31)
[2019-06-11] MEDS: FAMOTIDINE 20 MG TABLET GT SCH (06:14)
[2019-06-11] MEDS: LEVOTHYROXINE SODIUM 50 MCG TABLET GT SCH (06:14)
[2019-06-11] MEDS: CARBIDOPA/LEVODOPA 25-100MG TABLET GT SCH ×3 (06:14→21:12)
[2019-06-11] MEDS: HYDROGEN PEROXIDE 3% 118 ML BOTTLE TP SCH ×2 (09:39→21:31)
[2019-06-11] MEDS: COD LIVER OIL/ZINC OXIDE OINT 113 GM TUBE TP SCH ×2 (09:52→20:31)
[2019-06-11] MEDS: ENOXAPARIN SODIUM 30 MG/0.3 ML DISP.SYRIN SUBCUT SCH (09:52)
[2019-06-11] MEDS: CALCIUM CARB/VITAMIN D 600-400 MG TABLET GT SCH ×2 (09:52→20:31)
[2019-06-11 10:52] VITALS: BP 119/93
[2019-06-11] MEDS: OSMOLITE 1.2 CAL 1,000 ML LIQUID GT PRN (13:28)
[2019-06-11] MEDS: PROTEIN SUPPLEMENT (PROSTAT) 30 ML LIQUID GT SCH (20:31)
[2019-06-11] MEDS: SACCHAROMYCES BOULARDII GT SCH (20:31)
[2019-06-11 20:34] VITALS: BP 140/60
[2019-06-11] MEDS: MINERAL OIL/PETROLAT OPHT OINT 3.5 GM TUBE EACHEYE SCH (21:12)
[2019-06-12] MEDS: POLYVINYL ALCOHOL OPHT DROPS 15 ML BOTTLE EACHEYE SCH ×6 (00:04→20:23)
[2019-06-12] MEDS: ALBUTEROL SULFATE 2.5 MG/3 ML NEBU NEB SCH ×4 (01:17→19:27)
[2019-06-12] MEDS: IPRATROPIUM BROMIDE 0.5 MG/2.5 ML NEBU NEB SCH ×4 (01:17→19:27)
[2019-06-12] MEDS: LEVOTHYROXINE SODIUM 50 MCG TABLET GT SCH (05:45)
[2019-06-12] MEDS: CARBIDOPA/LEVODOPA 25-100MG TABLET GT SCH ×3 (05:45→21:09)
[2019-06-12] MEDS: FAMOTIDINE 20 MG TABLET GT SCH (05:45)
[2019-06-12 08:00] VITALS: BP 120/62
[2019-06-12] MEDS: HYDROGEN PEROXIDE 3% 118 ML BOTTLE TP SCH ×2 (08:18→20:35)
[2019-06-12] MEDS: CALCIUM CARB/VITAMIN D 600-400 MG TABLET GT SCH ×2 (08:59→20:23)
[2019-06-12] MEDS: COD LIVER OIL/ZINC OXIDE OINT 113 GM TUBE TP SCH ×2 (09:00→20:23)
[2019-06-12] MEDS: ENOXAPARIN SODIUM 30 MG/0.3 ML DISP.SYRIN SUBCUT SCH (09:00)
[2019-06-12 20:12] VITALS: BP 112/48
[2019-06-12] MEDS: SACCHAROMYCES BOULARDII GT SCH (20:23)
[2019-06-12] MEDS: PROTEIN SUPPLEMENT (PROSTAT) 30 ML LIQUID GT SCH (20:23)
[2019-06-12] MEDS: MINERAL OIL/PETROLAT OPHT OINT 3.5 GM TUBE EACHEYE SCH (21:09)
[2019-06-13] MEDS: POLYVINYL ALCOHOL OPHT DROPS 15 ML BOTTLE EACHEYE SCH ×6 (01:15→20:20)
[2019-06-13] MEDS: IPRATROPIUM BROMIDE 0.5 MG/2.5 ML NEBU NEB SCH ×4 (01:22→19:37)
[2019-06-13] MEDS: ALBUTEROL SULFATE 2.5 MG/3 ML NEBU NEB SCH ×4 (01:22→19:37)
[2019-06-13] MEDS: LEVOTHYROXINE SODIUM 50 MCG TABLET GT SCH (05:33)
[2019-06-13] MEDS: CARBIDOPA/LEVODOPA 25-100MG TABLET GT SCH ×3 (05:33→21:18)
[2019-06-13] MEDS: FAMOTIDINE 20 MG TABLET GT SCH (05:33)
[2019-06-13] MEDS: HYDROGEN PEROXIDE 3% 118 ML BOTTLE TP SCH ×2 (07:30→21:26)
[2019-06-13] MEDS: CALCIUM CARB/VITAMIN D 600-400 MG TABLET GT SCH ×2 (08:06→20:20)
[2019-06-13] MEDS: COD LIVER OIL/ZINC OXIDE OINT 113 GM TUBE TP SCH ×2 (08:07→20:21)
[2019-06-13] MEDS: ENOXAPARIN SODIUM 30 MG/0.3 ML DISP.SYRIN SUBCUT SCH (08:07)
[2019-06-13 08:30] VITALS: BP 141/58
[2019-06-13] MEDS: OSMOLITE 1.2 CAL 1,000 ML LIQUID GT PRN (13:07)
--- NOTE | 2019-06-13 14:00 | NUR ---
Seen and examined by Dr Vizcarra,no new orders noted.
[2019-06-13] MEDS: SACCHAROMYCES BOULARDII GT SCH (20:20)
[2019-06-13] MEDS: PROTEIN SUPPLEMENT (PROSTAT) 30 ML LIQUID GT SCH (20:20)
[2019-06-13 20:45] VITALS: BP 110/45
[2019-06-13] MEDS: MINERAL OIL/PETROLAT OPHT OINT 3.5 GM TUBE EACHEYE SCH (21:18)
[2019-06-14] MEDS: ALBUTEROL SULFATE 2.5 MG/3 ML NEBU NEB SCH ×4 (00:41→20:12)
[2019-06-14] MEDS: IPRATROPIUM BROMIDE 0.5 MG/2.5 ML NEBU NEB SCH ×4 (00:41→20:12)
[2019-06-14] MEDS: POLYVINYL ALCOHOL OPHT DROPS 15 ML BOTTLE EACHEYE SCH ×6 (01:11→21:20)
[2019-06-14] MEDS: CARBIDOPA/LEVODOPA 25-100MG TABLET GT SCH ×3 (05:30→21:44)
[2019-06-14] MEDS: LEVOTHYROXINE SODIUM 50 MCG TABLET GT SCH (05:30)
[2019-06-14] MEDS: FAMOTIDINE 20 MG TABLET GT SCH (05:30)
[2019-06-14] MEDS: HYDROGEN PEROXIDE 3% 118 ML BOTTLE TP SCH ×2 (08:18→20:12)
[2019-06-14 08:30] VITALS: BP 130/51
[2019-06-14] MEDS: CALCIUM CARB/VITAMIN D 600-400 MG TABLET GT SCH ×2 (09:18→21:21)
[2019-06-14] MEDS: ENOXAPARIN SODIUM 30 MG/0.3 ML DISP.SYRIN SUBCUT SCH (09:19)
[2019-06-14] MEDS: COD LIVER OIL/ZINC OXIDE OINT 113 GM TUBE TP SCH ×2 (09:20→21:23)
--- NOTE | 2019-06-14 11:00 | NUR ---
FaceTime done with daughter, Kimberlee.
[2019-06-14] MEDS: OSMOLITE 1.2 CAL 1,000 ML LIQUID GT PRN (12:08)
[2019-06-14 20:15] VITALS: BP 127/74
[2019-06-14] MEDS: MINERAL OIL/PETROLAT OPHT OINT 3.5 GM TUBE EACHEYE SCH (21:21)
[2019-06-14] MEDS: PROTEIN SUPPLEMENT (PROSTAT) 30 ML LIQUID GT SCH (21:23)
[2019-06-14] MEDS: SACCHAROMYCES BOULARDII GT SCH (21:23)
[2019-06-15] MEDS: POLYVINYL ALCOHOL OPHT DROPS 15 ML BOTTLE EACHEYE SCH ×6 (00:13→21:29)
[2019-06-15] MEDS: IPRATROPIUM BROMIDE 0.5 MG/2.5 ML NEBU NEB SCH ×4 (01:19→19:38)
[2019-06-15] MEDS: ALBUTEROL SULFATE 2.5 MG/3 ML NEBU NEB SCH ×4 (01:19→19:38)
[2019-06-15] MEDS: FAMOTIDINE 20 MG TABLET GT SCH (05:24)
[2019-06-15] MEDS: CARBIDOPA/LEVODOPA 25-100MG TABLET GT SCH ×3 (05:24→21:31)
[2019-06-15] MEDS: LEVOTHYROXINE SODIUM 50 MCG TABLET GT SCH (05:24)
[2019-06-15 08:00] VITALS: BP 114/60
[2019-06-15] MEDS: HYDROGEN PEROXIDE 3% 118 ML BOTTLE TP SCH ×2 (08:32→20:52)
[2019-06-15] MEDS: COD LIVER OIL/ZINC OXIDE OINT 113 GM TUBE TP SCH ×2 (08:44→21:31)
[2019-06-15] MEDS: CALCIUM CARB/VITAMIN D 600-400 MG TABLET GT SCH ×2 (08:44→21:29)
[2019-06-15] MEDS: ENOXAPARIN SODIUM 30 MG/0.3 ML DISP.SYRIN SUBCUT SCH (08:45)
[2019-06-15] MEDS: OSMOLITE 1.2 CAL 1,000 ML LIQUID GT PRN (12:20)
--- NOTE | 2019-06-15 19:10 | NUR ---
Seen and examined by Josi SARMIENTO ,no new orders noted.
[2019-06-15] MEDS: MINERAL OIL/PETROLAT OPHT OINT 3.5 GM TUBE EACHEYE SCH (21:29)
[2019-06-15] MEDS: SACCHAROMYCES BOULARDII GT SCH (21:30)
[2019-06-15] MEDS: PROTEIN SUPPLEMENT (PROSTAT) 30 ML LIQUID GT SCH (21:31)
[2019-06-16] MEDS: POLYVINYL ALCOHOL OPHT DROPS 15 ML BOTTLE EACHEYE SCH ×6 (01:16→21:15)
[2019-06-16] MEDS: ALBUTEROL SULFATE 2.5 MG/3 ML NEBU NEB SCH ×4 (01:19→20:55)
[2019-06-16] MEDS: IPRATROPIUM BROMIDE 0.5 MG/2.5 ML NEBU NEB SCH ×4 (01:19→20:55)
[2019-06-16] MEDS: ALENDRONATE GT SCH (05:05)
[2019-06-16] MEDS: LEVOTHYROXINE SODIUM 50 MCG TABLET GT SCH (05:06)
[2019-06-16] MEDS: CARBIDOPA/LEVODOPA 25-100MG TABLET GT SCH ×3 (05:06→21:16)
[2019-06-16] MEDS: FAMOTIDINE 20 MG TABLET GT SCH (06:03)
[2019-06-16] MEDS: ENOXAPARIN SODIUM 30 MG/0.3 ML DISP.SYRIN SUBCUT SCH (08:03)
[2019-06-16] MEDS: CALCIUM CARB/VITAMIN D 600-400 MG TABLET GT SCH ×2 (08:04→21:15)
[2019-06-16] MEDS: HYDROGEN PEROXIDE 3% 118 ML BOTTLE TP SCH ×2 (08:08→21:00)
[2019-06-16] MEDS: COD LIVER OIL/ZINC OXIDE OINT 113 GM TUBE TP SCH ×2 (08:08→21:16)
[2019-06-16 08:30] VITALS: BP 137/54
[2019-06-16 20:17] VITALS: BP 127/69
[2019-06-16] MEDS: MINERAL OIL/PETROLAT OPHT OINT 3.5 GM TUBE EACHEYE SCH (21:15)
[2019-06-16] MEDS: SACCHAROMYCES BOULARDII GT SCH (21:16)
[2019-06-16] MEDS: PROTEIN SUPPLEMENT (PROSTAT) 30 ML LIQUID GT SCH (21:16)
[2019-06-17] MEDS: POLYVINYL ALCOHOL OPHT DROPS 15 ML BOTTLE EACHEYE SCH ×6 (01:00→21:56)
[2019-06-17] MEDS: IPRATROPIUM BROMIDE 0.5 MG/2.5 ML NEBU NEB SCH ×4 (01:09→21:00)
[2019-06-17] MEDS: ALBUTEROL SULFATE 2.5 MG/3 ML NEBU NEB SCH ×4 (01:09→21:00)
[2019-06-17] MEDS: FAMOTIDINE 20 MG TABLET GT SCH (06:01)
[2019-06-17] MEDS: LEVOTHYROXINE SODIUM 50 MCG TABLET GT SCH (06:01)
[2019-06-17] MEDS: CARBIDOPA/LEVODOPA 25-100MG TABLET GT SCH ×3 (06:01→21:57)
[2019-06-17] MEDS: HYDROGEN PEROXIDE 3% 118 ML BOTTLE TP SCH ×2 (09:00→21:33)
[2019-06-17] MEDS: CALCIUM CARB/VITAMIN D 600-400 MG TABLET GT SCH ×2 (09:17→21:57)
[2019-06-17] MEDS: COD LIVER OIL/ZINC OXIDE OINT 113 GM TUBE TP SCH ×2 (09:18→21:57)
[2019-06-17] MEDS: ENOXAPARIN SODIUM 30 MG/0.3 ML DISP.SYRIN SUBCUT SCH (09:18)
[2019-06-17 11:11] VITALS: BP 117/69
[2019-06-17] MEDS: SACCHAROMYCES BOULARDII GT SCH (21:57)
[2019-06-17] MEDS: PROTEIN SUPPLEMENT (PROSTAT) 30 ML LIQUID GT SCH (21:57)
[2019-06-17] MEDS: MINERAL OIL/PETROLAT OPHT OINT 3.5 GM TUBE EACHEYE SCH (21:57)
[2019-06-17 23:30] VITALS: BP 117/63
[2019-06-18] MEDS: POLYVINYL ALCOHOL OPHT DROPS 15 ML BOTTLE EACHEYE SCH ×6 (01:00→20:35)
[2019-06-18] MEDS: ALBUTEROL SULFATE 2.5 MG/3 ML NEBU NEB SCH ×4 (01:08→19:30)
[2019-06-18] MEDS: IPRATROPIUM BROMIDE 0.5 MG/2.5 ML NEBU NEB SCH ×4 (01:08→19:30)
[2019-06-18] MEDS: CARBIDOPA/LEVODOPA 25-100MG TABLET GT SCH ×3 (05:15→21:29)
[2019-06-18] MEDS: LEVOTHYROXINE SODIUM 50 MCG TABLET GT SCH (05:16)
[2019-06-18] MEDS: FAMOTIDINE 20 MG TABLET GT SCH (06:02)
[2019-06-18] MEDS: CALCIUM CARB/VITAMIN D 600-400 MG TABLET GT SCH ×2 (08:49→20:36)
[2019-06-18] MEDS: ENOXAPARIN SODIUM 30 MG/0.3 ML DISP.SYRIN SUBCUT SCH (08:50)
[2019-06-18] MEDS: COD LIVER OIL/ZINC OXIDE OINT 113 GM TUBE TP SCH ×2 (08:50→20:39)
[2019-06-18] MEDS: HYDROGEN PEROXIDE 3% 118 ML BOTTLE TP SCH ×2 (09:58→21:16)
[2019-06-18 11:33] VITALS: BP 117/69
[2019-06-18] MEDS: MINERAL OIL/PETROLAT OPHT OINT 3.5 GM TUBE EACHEYE SCH (20:35)
[2019-06-18] MEDS: SACCHAROMYCES BOULARDII GT SCH (20:38)
[2019-06-18] MEDS: PROTEIN SUPPLEMENT (PROSTAT) 30 ML LIQUID GT SCH (20:39)
[2019-06-18 22:13] VITALS: BP 129/63
[2019-06-19] MEDS: IPRATROPIUM BROMIDE 0.5 MG/2.5 ML NEBU NEB SCH ×4 (00:38→19:25)
[2019-06-19] MEDS: ALBUTEROL SULFATE 2.5 MG/3 ML NEBU NEB SCH ×4 (00:38→19:25)
[2019-06-19] MEDS: POLYVINYL ALCOHOL OPHT DROPS 15 ML BOTTLE EACHEYE SCH ×6 (01:11→21:03)
[2019-06-19] MEDS: LEVOTHYROXINE SODIUM 50 MCG TABLET GT SCH (05:20)
[2019-06-19] MEDS: CARBIDOPA/LEVODOPA 25-100MG TABLET GT SCH ×3 (05:21→22:00)
[2019-06-19] MEDS: FAMOTIDINE 20 MG TABLET GT SCH (05:34)
[2019-06-19] MEDS: CALCIUM CARB/VITAMIN D 600-400 MG TABLET GT SCH ×2 (08:29→21:03)
[2019-06-19] MEDS: ENOXAPARIN SODIUM 30 MG/0.3 ML DISP.SYRIN SUBCUT SCH (08:30)
[2019-06-19] MEDS: COD LIVER OIL/ZINC OXIDE OINT 113 GM TUBE TP SCH ×2 (08:30→21:03)
[2019-06-19] MEDS: HYDROGEN PEROXIDE 3% 118 ML BOTTLE TP SCH ×2 (09:00→20:19)
[2019-06-19 10:56] VITALS: BP 101/53
[2019-06-19 20:13] VITALS: BP 123/68
[2019-06-19] MEDS: SACCHAROMYCES BOULARDII GT SCH (21:03)
[2019-06-19] MEDS: MINERAL OIL/PETROLAT OPHT OINT 3.5 GM TUBE EACHEYE SCH (21:03)
[2019-06-19] MEDS: PROTEIN SUPPLEMENT (PROSTAT) 30 ML LIQUID GT SCH (21:03)
[2019-06-20] MEDS: IPRATROPIUM BROMIDE 0.5 MG/2.5 ML NEBU NEB SCH ×4 (01:06→19:13)
[2019-06-20] MEDS: ALBUTEROL SULFATE 2.5 MG/3 ML NEBU NEB SCH ×4 (01:06→19:13)
[2019-06-20] MEDS: POLYVINYL ALCOHOL OPHT DROPS 15 ML BOTTLE EACHEYE SCH ×6 (01:24→20:59)
[2019-06-20] MEDS: OSMOLITE 1.2 CAL 1,000 ML LIQUID GT PRN (02:44)
[2019-06-20] MEDS: FAMOTIDINE 20 MG TABLET GT SCH (05:31)
[2019-06-20] MEDS: LEVOTHYROXINE SODIUM 50 MCG TABLET GT SCH (05:31)
[2019-06-20] MEDS: CARBIDOPA/LEVODOPA 25-100MG TABLET GT SCH ×3 (05:31→21:00)
[2019-06-20 08:00] VITALS: BP 159/56
[2019-06-20] MEDS: HYDROGEN PEROXIDE 3% 118 ML BOTTLE TP SCH ×2 (08:33→20:49)
[2019-06-20] MEDS: CALCIUM CARB/VITAMIN D 600-400 MG TABLET GT SCH ×2 (08:56→20:59)
[2019-06-20] MEDS: COD LIVER OIL/ZINC OXIDE OINT 113 GM TUBE TP SCH ×2 (08:57→20:59)
[2019-06-20] MEDS: ENOXAPARIN SODIUM 30 MG/0.3 ML DISP.SYRIN SUBCUT SCH (08:59)
--- NOTE | 2019-06-20 16:22 | NUR ---
Daughter, Kimberlee requested to call pt to her phone at bedside and assisted. Elevated bed to sitting positioned, suctioned pt small amt of clear secretions with PMV in-place. Kimberlee concerned because mother is not able to make a sounds. Noticed pt able to follow commands tried several events by moving mouth and face gesture but unable make sounds or hear voice. Nurse in Charge aware will follow up with MD for speech eval.
[2019-06-20] MEDS: diphenhydrAMINE 25 MG/10 ML UDC GT PRN (18:07)
[2019-06-20 20:12] VITALS: BP 133/55
[2019-06-20] MEDS: SACCHAROMYCES BOULARDII GT SCH (20:59)
[2019-06-20] MEDS: MINERAL OIL/PETROLAT OPHT OINT 3.5 GM TUBE EACHEYE SCH (20:59)
[2019-06-20] MEDS: PROTEIN SUPPLEMENT (PROSTAT) 30 ML LIQUID GT SCH (20:59)
[2019-06-21] MEDS: ALBUTEROL SULFATE 2.5 MG/3 ML NEBU NEB SCH ×4 (00:30→19:25)
[2019-06-21] MEDS: IPRATROPIUM BROMIDE 0.5 MG/2.5 ML NEBU NEB SCH ×4 (00:30→19:25)
[2019-06-21] MEDS: POLYVINYL ALCOHOL OPHT DROPS 15 ML BOTTLE EACHEYE SCH ×6 (00:41→21:32)
[2019-06-21] MEDS: OSMOLITE 1.2 CAL 1,000 ML LIQUID GT PRN (01:30)
[2019-06-21] MEDS: CARBIDOPA/LEVODOPA 25-100MG TABLET GT SCH ×3 (05:12→21:33)
[2019-06-21] MEDS: LEVOTHYROXINE SODIUM 50 MCG TABLET GT SCH (05:12)
[2019-06-21] MEDS: FAMOTIDINE 20 MG TABLET GT SCH (05:34)
[2019-06-21 08:30] VITALS: BP 137/41
[2019-06-21] MEDS: CALCIUM CARB/VITAMIN D 600-400 MG TABLET GT SCH ×2 (09:15→21:32)
[2019-06-21] MEDS: ENOXAPARIN SODIUM 30 MG/0.3 ML DISP.SYRIN SUBCUT SCH (09:17)
[2019-06-21] MEDS: COD LIVER OIL/ZINC OXIDE OINT 113 GM TUBE TP SCH ×2 (09:17→21:32)
[2019-06-21] MEDS: diphenhydrAMINE 1% CREAM 28.3 GM TUBE TP PRN (09:27)
[2019-06-21] MEDS: HYDROGEN PEROXIDE 3% 118 ML BOTTLE TP SCH ×2 (09:40→21:34)
[2019-06-21] MEDS: diphenhydrAMINE 25 MG/10 ML UDC GT PRN ×2 (13:41→23:00)
[2019-06-21] MEDS: MINERAL OIL/PETROLAT OPHT OINT 3.5 GM TUBE EACHEYE SCH (21:32)
[2019-06-21] MEDS: SACCHAROMYCES BOULARDII GT SCH (21:32)
[2019-06-21] MEDS: PROTEIN SUPPLEMENT (PROSTAT) 30 ML LIQUID GT SCH (21:32)
[2019-06-21 21:35] VITALS: BP 121/59
[2019-06-22] MEDS: POLYVINYL ALCOHOL OPHT DROPS 15 ML BOTTLE EACHEYE SCH ×6 (01:00→21:07)
[2019-06-22] MEDS: IPRATROPIUM BROMIDE 0.5 MG/2.5 ML NEBU NEB SCH ×4 (01:32→20:52)
[2019-06-22] MEDS: ALBUTEROL SULFATE 2.5 MG/3 ML NEBU NEB SCH ×4 (01:32→20:52)
[2019-06-22] MEDS: OSMOLITE 1.2 CAL 1,000 ML LIQUID GT PRN (05:00)
[2019-06-22] MEDS: CARBIDOPA/LEVODOPA 25-100MG TABLET GT SCH ×3 (05:46→21:10)
[2019-06-22] MEDS: LEVOTHYROXINE SODIUM 50 MCG TABLET GT SCH (05:46)
[2019-06-22] MEDS: FAMOTIDINE 20 MG TABLET GT SCH (05:47)
[2019-06-22 07:45] VITALS: BP 122/58
[2019-06-22] MEDS: HYDROGEN PEROXIDE 3% 118 ML BOTTLE TP SCH ×2 (09:03→21:00)
[2019-06-22] MEDS: COD LIVER OIL/ZINC OXIDE OINT 113 GM TUBE TP SCH ×2 (09:09→21:10)
[2019-06-22] MEDS: CALCIUM CARB/VITAMIN D 600-400 MG TABLET GT SCH ×2 (09:09→21:08)
[2019-06-22] MEDS: ENOXAPARIN SODIUM 30 MG/0.3 ML DISP.SYRIN SUBCUT SCH (09:11)
[2019-06-22 20:00] VITALS: BP 128/60
[2019-06-22] MEDS: MINERAL OIL/PETROLAT OPHT OINT 3.5 GM TUBE EACHEYE SCH (21:08)
[2019-06-22] MEDS: SACCHAROMYCES BOULARDII GT SCH (21:08)
[2019-06-22] MEDS: PROTEIN SUPPLEMENT (PROSTAT) 30 ML LIQUID GT SCH (21:10)
[2019-06-23] MEDS: POLYVINYL ALCOHOL OPHT DROPS 15 ML BOTTLE EACHEYE SCH ×6 (00:52→21:15)
[2019-06-23] MEDS: IPRATROPIUM BROMIDE 0.5 MG/2.5 ML NEBU NEB SCH ×4 (01:20→19:52)
[2019-06-23] MEDS: ALBUTEROL SULFATE 2.5 MG/3 ML NEBU NEB SCH ×4 (01:20→19:52)
[2019-06-23] MEDS: OSMOLITE 1.2 CAL 1,000 ML LIQUID GT PRN (04:52)
[2019-06-23] MEDS: ALENDRONATE GT SCH (06:15)
[2019-06-23] MEDS: FAMOTIDINE 20 MG TABLET GT SCH (06:15)
[2019-06-23] MEDS: LEVOTHYROXINE SODIUM 50 MCG TABLET GT SCH (06:15)
[2019-06-23] MEDS: CARBIDOPA/LEVODOPA 25-100MG TABLET GT SCH ×3 (06:15→21:18)
[2019-06-23 08:30] VITALS: BP 135/55
[2019-06-23] MEDS: COD LIVER OIL/ZINC OXIDE OINT 113 GM TUBE TP SCH ×2 (08:47→21:18)
[2019-06-23] MEDS: CALCIUM CARB/VITAMIN D 600-400 MG TABLET GT SCH ×2 (08:47→21:15)
[2019-06-23] MEDS: ENOXAPARIN SODIUM 30 MG/0.3 ML DISP.SYRIN SUBCUT SCH (08:49)
[2019-06-23] MEDS: HYDROGEN PEROXIDE 3% 118 ML BOTTLE TP SCH ×2 (09:00→21:50)
[2019-06-23 20:00] VITALS: BP 122/58
[2019-06-23] MEDS: MINERAL OIL/PETROLAT OPHT OINT 3.5 GM TUBE EACHEYE SCH (21:15)
[2019-06-23] MEDS: SACCHAROMYCES BOULARDII GT SCH (21:15)
[2019-06-23] MEDS: PROTEIN SUPPLEMENT (PROSTAT) 30 ML LIQUID GT SCH (21:18)
[2019-06-24] MEDS: POLYVINYL ALCOHOL OPHT DROPS 15 ML BOTTLE EACHEYE SCH ×6 (01:00→21:18)
[2019-06-24] MEDS: ALBUTEROL SULFATE 2.5 MG/3 ML NEBU NEB SCH ×4 (01:50→19:46)
[2019-06-24] MEDS: IPRATROPIUM BROMIDE 0.5 MG/2.5 ML NEBU NEB SCH ×4 (01:50→19:45)
[2019-06-24] MEDS: OSMOLITE 1.2 CAL 1,000 ML LIQUID GT PRN (04:42)
[2019-06-24] MEDS: LEVOTHYROXINE SODIUM 50 MCG TABLET GT SCH (05:58)
[2019-06-24] MEDS: FAMOTIDINE 20 MG TABLET GT SCH (05:58)
[2019-06-24] MEDS: CARBIDOPA/LEVODOPA 25-100MG TABLET GT SCH ×3 (05:58→21:22)
[2019-06-24 08:00] VITALS: BP 147/61
[2019-06-24] MEDS: CALCIUM CARB/VITAMIN D 600-400 MG TABLET GT SCH ×2 (09:17→21:18)
[2019-06-24] MEDS: COD LIVER OIL/ZINC OXIDE OINT 113 GM TUBE TP SCH ×2 (09:18→21:20)
[2019-06-24] MEDS: ENOXAPARIN SODIUM 30 MG/0.3 ML DISP.SYRIN SUBCUT SCH (09:22)
[2019-06-24] MEDS: diphenhydrAMINE 25 MG/10 ML UDC GT PRN (09:24)
[2019-06-24] MEDS: HYDROGEN PEROXIDE 3% 118 ML BOTTLE TP SCH ×2 (09:48→20:59)
--- NOTE | 2019-06-24 18:25 | NUR ---
EOS: No significant changes during this shift. Pt. remain non-verbal but responsive to tactile stimuli. Pt. remain stable with no acute distress. Skin care rendered. Pt. afebrile, no chills noted. Oral care rendered. Benadryl given as pt. scratching herself and effective. Safety measures in place. Will endorse to oncoming shift accordingly.
[2019-06-24 20:00] VITALS: BP 131/51
[2019-06-24] MEDS: MINERAL OIL/PETROLAT OPHT OINT 3.5 GM TUBE EACHEYE SCH (21:18)
[2019-06-24] MEDS: PROTEIN SUPPLEMENT (PROSTAT) 30 ML LIQUID GT SCH (21:20)
[2019-06-24] MEDS: SACCHAROMYCES BOULARDII GT SCH (21:20)
[2019-06-25] MEDS: POLYVINYL ALCOHOL OPHT DROPS 15 ML BOTTLE EACHEYE SCH ×6 (01:00→20:24)
[2019-06-25] MEDS: ALBUTEROL SULFATE 2.5 MG/3 ML NEBU NEB SCH ×4 (02:01→20:10)
[2019-06-25] MEDS: IPRATROPIUM BROMIDE 0.5 MG/2.5 ML NEBU NEB SCH ×4 (02:01→20:10)
[2019-06-25] MEDS: OSMOLITE 1.2 CAL 1,000 ML LIQUID GT PRN ×2 (04:43→21:35)
[2019-06-25] MEDS: LEVOTHYROXINE SODIUM 50 MCG TABLET GT SCH (06:01)
[2019-06-25] MEDS: CARBIDOPA/LEVODOPA 25-100MG TABLET GT SCH ×3 (06:01→21:10)
[2019-06-25] MEDS: FAMOTIDINE 20 MG TABLET GT SCH (06:01)
[2019-06-25] MEDS: HYDROGEN PEROXIDE 3% 118 ML BOTTLE TP SCH ×2 (07:28→21:37)
[2019-06-25 08:00] VITALS: BP 117/60
[2019-06-25] MEDS: ENOXAPARIN SODIUM 30 MG/0.3 ML DISP.SYRIN SUBCUT SCH (08:43)
[2019-06-25] MEDS: CALCIUM CARB/VITAMIN D 600-400 MG TABLET GT SCH ×2 (08:43→20:24)
[2019-06-25] MEDS: COD LIVER OIL/ZINC OXIDE OINT 113 GM TUBE TP SCH ×2 (08:44→20:24)
[2019-06-25] MEDS: SACCHAROMYCES BOULARDII GT SCH (20:24)
[2019-06-25] MEDS: PROTEIN SUPPLEMENT (PROSTAT) 30 ML LIQUID GT SCH (20:24)
[2019-06-25 20:25] VITALS: BP 123/69
[2019-06-25] MEDS: MINERAL OIL/PETROLAT OPHT OINT 3.5 GM TUBE EACHEYE SCH (21:10)
[2019-06-26] MEDS: POLYVINYL ALCOHOL OPHT DROPS 15 ML BOTTLE EACHEYE SCH ×6 (01:13→20:30)
[2019-06-26] MEDS: IPRATROPIUM BROMIDE 0.5 MG/2.5 ML NEBU NEB SCH ×4 (01:20→20:12)
[2019-06-26] MEDS: ALBUTEROL SULFATE 2.5 MG/3 ML NEBU NEB SCH ×4 (01:20→20:12)
[2019-06-26] MEDS: LEVOTHYROXINE SODIUM 50 MCG TABLET GT SCH (05:45)
[2019-06-26] MEDS: CARBIDOPA/LEVODOPA 25-100MG TABLET GT SCH ×3 (05:45→21:35)
[2019-06-26] MEDS: FAMOTIDINE 20 MG TABLET GT SCH (05:45)
[2019-06-26] MEDS: CALCIUM CARB/VITAMIN D 600-400 MG TABLET GT SCH ×2 (08:33→20:30)
[2019-06-26] MEDS: ENOXAPARIN SODIUM 30 MG/0.3 ML DISP.SYRIN SUBCUT SCH (08:35)
[2019-06-26] MEDS: COD LIVER OIL/ZINC OXIDE OINT 113 GM TUBE TP SCH ×2 (08:35→20:30)
[2019-06-26] MEDS: HYDROGEN PEROXIDE 3% 118 ML BOTTLE TP SCH ×2 (09:05→21:00)
[2019-06-26 14:56] VITALS: BP 125/52
[2019-06-26] MEDS: OSMOLITE 1.2 CAL 1,000 ML LIQUID GT PRN (19:31)
[2019-06-26 20:00] VITALS: BP_SYST 113; BP_DIAS 46; BP_DIAS 56
[2019-06-26] MEDS: PROTEIN SUPPLEMENT (PROSTAT) 30 ML LIQUID GT SCH (20:30)
[2019-06-26] MEDS: SACCHAROMYCES BOULARDII GT SCH (20:30)
[2019-06-26] MEDS: MINERAL OIL/PETROLAT OPHT OINT 3.5 GM TUBE EACHEYE SCH (21:35)
[2019-06-27] MEDS: POLYVINYL ALCOHOL OPHT DROPS 15 ML BOTTLE EACHEYE SCH ×6 (01:09→20:24)
[2019-06-27] MEDS: IPRATROPIUM BROMIDE 0.5 MG/2.5 ML NEBU NEB SCH ×4 (01:20→19:38)
[2019-06-27] MEDS: ALBUTEROL SULFATE 2.5 MG/3 ML NEBU NEB SCH ×4 (01:20→19:38)
[2019-06-27] MEDS: FAMOTIDINE 20 MG TABLET GT SCH (05:44)
[2019-06-27] MEDS: CARBIDOPA/LEVODOPA 25-100MG TABLET GT SCH ×3 (05:44→21:24)
[2019-06-27] MEDS: LEVOTHYROXINE SODIUM 50 MCG TABLET GT SCH (05:44)
[2019-06-27] MEDS: CALCIUM CARB/VITAMIN D 600-400 MG TABLET GT SCH ×2 (08:09→20:24)
[2019-06-27] MEDS: ENOXAPARIN SODIUM 30 MG/0.3 ML DISP.SYRIN SUBCUT SCH (08:09)
[2019-06-27] MEDS: COD LIVER OIL/ZINC OXIDE OINT 113 GM TUBE TP SCH ×2 (08:10→20:24)
[2019-06-27 08:30] VITALS: BP 144/59
[2019-06-27] MEDS: HYDROGEN PEROXIDE 3% 118 ML BOTTLE TP SCH ×2 (08:49→21:02)
[2019-06-27] MEDS: OSMOLITE 1.2 CAL 1,000 ML LIQUID GT PRN (19:53)
[2019-06-27 20:00] VITALS: BP 120/58
[2019-06-27] MEDS: SACCHAROMYCES BOULARDII GT SCH (20:24)
[2019-06-27] MEDS: PROTEIN SUPPLEMENT (PROSTAT) 30 ML LIQUID GT SCH (20:24)
[2019-06-27] MEDS: MINERAL OIL/PETROLAT OPHT OINT 3.5 GM TUBE EACHEYE SCH (21:24)
[2019-06-28] MEDS: POLYVINYL ALCOHOL OPHT DROPS 15 ML BOTTLE EACHEYE SCH ×6 (00:22→21:25)
[2019-06-28] MEDS: ALBUTEROL SULFATE 2.5 MG/3 ML NEBU NEB SCH ×4 (01:27→19:32)
[2019-06-28] MEDS: IPRATROPIUM BROMIDE 0.5 MG/2.5 ML NEBU NEB SCH ×4 (01:27→19:32)
[2019-06-28] MEDS: CARBIDOPA/LEVODOPA 25-100MG TABLET GT SCH ×3 (05:44→21:57)
[2019-06-28] MEDS: LEVOTHYROXINE SODIUM 50 MCG TABLET GT SCH (05:44)
[2019-06-28] MEDS: FAMOTIDINE 20 MG TABLET GT SCH (05:44)
[2019-06-28] MEDS: HYDROGEN PEROXIDE 3% 118 ML BOTTLE TP SCH ×2 (07:28→21:26)
[2019-06-28 08:00] VITALS: BP 125/52
[2019-06-28] MEDS: ENOXAPARIN SODIUM 30 MG/0.3 ML DISP.SYRIN SUBCUT SCH (09:43)
[2019-06-28] MEDS: COD LIVER OIL/ZINC OXIDE OINT 113 GM TUBE TP SCH ×2 (09:43→21:26)
[2019-06-28] MEDS: CALCIUM CARB/VITAMIN D 600-400 MG TABLET GT SCH ×2 (09:43→21:26)
[2019-06-28 20:15] VITALS: BP 124/67
[2019-06-28] MEDS: MINERAL OIL/PETROLAT OPHT OINT 3.5 GM TUBE EACHEYE SCH (21:24)
[2019-06-28] MEDS: SACCHAROMYCES BOULARDII GT SCH (21:26)
[2019-06-28] MEDS: PROTEIN SUPPLEMENT (PROSTAT) 30 ML LIQUID GT SCH (21:26)
[2019-06-28] MEDS: OSMOLITE 1.2 CAL 1,000 ML LIQUID GT PRN (21:34)
[2019-06-29] MEDS: ALBUTEROL SULFATE 2.5 MG/3 ML NEBU NEB SCH ×4 (00:35→20:09)
[2019-06-29] MEDS: IPRATROPIUM BROMIDE 0.5 MG/2.5 ML NEBU NEB SCH ×4 (00:35→20:09)
[2019-06-29] MEDS: POLYVINYL ALCOHOL OPHT DROPS 15 ML BOTTLE EACHEYE SCH ×6 (01:22→20:35)
[2019-06-29] MEDS: LEVOTHYROXINE SODIUM 50 MCG TABLET GT SCH (04:49)
[2019-06-29] MEDS: CARBIDOPA/LEVODOPA 25-100MG TABLET GT SCH ×3 (04:49→22:04)
[2019-06-29] MEDS: FAMOTIDINE 20 MG TABLET GT SCH (04:49)
[2019-06-29] MEDS: HYDROGEN PEROXIDE 3% 118 ML BOTTLE TP SCH ×2 (09:00→20:09)
[2019-06-29] MEDS: CALCIUM CARB/VITAMIN D 600-400 MG TABLET GT SCH ×2 (09:02→20:35)
[2019-06-29] MEDS: COD LIVER OIL/ZINC OXIDE OINT 113 GM TUBE TP SCH ×2 (09:02→20:35)
[2019-06-29] MEDS: ENOXAPARIN SODIUM 30 MG/0.3 ML DISP.SYRIN SUBCUT SCH (09:05)
[2019-06-29] MEDS: OSMOLITE 1.2 CAL 1,000 ML LIQUID GT PRN (17:44)
[2019-06-29 20:14] VITALS: BP 139/58
[2019-06-29] MEDS: PROTEIN SUPPLEMENT (PROSTAT) 30 ML LIQUID GT SCH (20:35)
[2019-06-29] MEDS: SACCHAROMYCES BOULARDII GT SCH (20:35)
[2019-06-29] MEDS: MINERAL OIL/PETROLAT OPHT OINT 3.5 GM TUBE EACHEYE SCH (20:35)
[2019-06-30] MEDS: POLYVINYL ALCOHOL OPHT DROPS 15 ML BOTTLE EACHEYE SCH ×6 (01:00→20:45)
[2019-06-30] MEDS: IPRATROPIUM BROMIDE 0.5 MG/2.5 ML NEBU NEB SCH ×4 (02:16→20:46)
[2019-06-30] MEDS: ALBUTEROL SULFATE 2.5 MG/3 ML NEBU NEB SCH ×4 (02:16→20:46)
[2019-06-30] MEDS: ALENDRONATE GT SCH (05:21)
[2019-06-30] MEDS: LEVOTHYROXINE SODIUM 50 MCG TABLET GT SCH (05:21)
[2019-06-30] MEDS: CARBIDOPA/LEVODOPA 25-100MG TABLET GT SCH ×3 (05:21→22:00)
[2019-06-30] MEDS: FAMOTIDINE 20 MG TABLET GT SCH (06:23)
[2019-06-30 08:00] VITALS: BP 124/67
[2019-06-30] MEDS: CALCIUM CARB/VITAMIN D 600-400 MG TABLET GT SCH ×2 (08:57→20:45)
[2019-06-30] MEDS: COD LIVER OIL/ZINC OXIDE OINT 113 GM TUBE TP SCH ×2 (09:00→20:47)
[2019-06-30] MEDS: HYDROGEN PEROXIDE 3% 118 ML BOTTLE TP SCH ×2 (09:01→21:00)
[2019-06-30] MEDS: ENOXAPARIN SODIUM 30 MG/0.3 ML DISP.SYRIN SUBCUT SCH (09:10)
--- NOTE | 2019-06-30 12:37 | NUR ---
MARINO sent patient's daughter Kimberlee and son Adalberto an email, notifying them that the next IDT meeting for the patient has been scheduled for 07/06/19 at 11am. In the same email, MARINO asked for Kimberlee and/or Adalberto to respond to this SW letting her know if either one of them wanted to participate in the meeting via speaker phone. SW waiting to hear back from Kimberlee and/or Adalberto.
[2019-06-30 19:56] VITALS: BP 130/82
[2019-06-30] MEDS: MINERAL OIL/PETROLAT OPHT OINT 3.5 GM TUBE EACHEYE SCH (20:45)
[2019-06-30] MEDS: SACCHAROMYCES BOULARDII GT SCH (20:46)
[2019-06-30] MEDS: PROTEIN SUPPLEMENT (PROSTAT) 30 ML LIQUID GT SCH (20:46)
[2019-07-01] MEDS: POLYVINYL ALCOHOL OPHT DROPS 15 ML BOTTLE EACHEYE SCH ×6 (01:00→20:55)
[2019-07-01] MEDS: ALBUTEROL SULFATE 2.5 MG/3 ML NEBU NEB SCH ×4 (02:05→20:06)
[2019-07-01] MEDS: IPRATROPIUM BROMIDE 0.5 MG/2.5 ML NEBU NEB SCH ×4 (02:05→20:06)
[2019-07-01] MEDS: LEVOTHYROXINE SODIUM 50 MCG TABLET GT SCH (06:16)
[2019-07-01] MEDS: CARBIDOPA/LEVODOPA 25-100MG TABLET GT SCH ×3 (06:16→21:00)
[2019-07-01] MEDS: FAMOTIDINE 20 MG TABLET GT SCH (06:16)
[2019-07-01 07:47] VITALS: BP 120/60
[2019-07-01] MEDS: ENOXAPARIN SODIUM 30 MG/0.3 ML DISP.SYRIN SUBCUT SCH (08:39)
[2019-07-01] MEDS: CALCIUM CARB/VITAMIN D 600-400 MG TABLET GT SCH ×2 (08:39→20:57)
[2019-07-01] MEDS: COD LIVER OIL/ZINC OXIDE OINT 113 GM TUBE TP SCH ×2 (08:40→20:59)
[2019-07-01] MEDS: HYDROGEN PEROXIDE 3% 118 ML BOTTLE TP SCH ×2 (09:00→21:26)
--- NOTE | 2019-07-01 11:45 | NUR ---
PROVIDED FACETIME FOR PATIENT WITH DAUGHTER MAURI. PATIENT IN STABLE CONDITION, WILL CONTINUE TO MONITOR.
--- NOTE | 2019-07-01 12:25 | NUR ---
Patient's daughter Kimberlee confirmed via email that she would like to participate in the IDT meeting on 07/06/19, via speaker phone. SW will call Kimberlee during the meeting.
[2019-07-01] MEDS: OSMOLITE 1.2 CAL 1,000 ML LIQUID GT PRN (18:34)
[2019-07-01 20:18] VITALS: BP 119/65
[2019-07-01] MEDS: MINERAL OIL/PETROLAT OPHT OINT 3.5 GM TUBE EACHEYE SCH (20:55)
[2019-07-01] MEDS: PROTEIN SUPPLEMENT (PROSTAT) 30 ML LIQUID GT SCH (20:59)
[2019-07-01] MEDS: SACCHAROMYCES BOULARDII GT SCH (20:59)
[2019-07-02] MEDS: POLYVINYL ALCOHOL OPHT DROPS 15 ML BOTTLE EACHEYE SCH ×6 (01:00→21:15)
[2019-07-02] MEDS: ALBUTEROL SULFATE 2.5 MG/3 ML NEBU NEB SCH ×4 (01:18→19:57)
[2019-07-02] MEDS: IPRATROPIUM BROMIDE 0.5 MG/2.5 ML NEBU NEB SCH ×4 (01:18→19:57)
[2019-07-02] MEDS: LEVOTHYROXINE SODIUM 50 MCG TABLET GT SCH (05:12)
[2019-07-02] MEDS: CARBIDOPA/LEVODOPA 25-100MG TABLET GT SCH ×3 (05:12→21:18)
[2019-07-02] MEDS: FAMOTIDINE 20 MG TABLET GT SCH (05:56)
[2019-07-02] MEDS: CALCIUM CARB/VITAMIN D 600-400 MG TABLET GT SCH ×2 (08:02→21:19)
[2019-07-02] MEDS: ENOXAPARIN SODIUM 30 MG/0.3 ML DISP.SYRIN SUBCUT SCH (08:02)
[2019-07-02] MEDS: COD LIVER OIL/ZINC OXIDE OINT 113 GM TUBE TP SCH ×2 (08:03→21:18)
[2019-07-02] MEDS: HYDROGEN PEROXIDE 3% 118 ML BOTTLE TP SCH ×2 (09:52→21:18)
[2019-07-02] MEDS: OSMOLITE 1.2 CAL 1,000 ML LIQUID GT PRN (17:05)
[2019-07-02 20:00] VITALS: BP 121/62
[2019-07-02] MEDS: MINERAL OIL/PETROLAT OPHT OINT 3.5 GM TUBE EACHEYE SCH (21:15)
[2019-07-02] MEDS: SACCHAROMYCES BOULARDII GT SCH (21:18)
[2019-07-02] MEDS: PROTEIN SUPPLEMENT (PROSTAT) 30 ML LIQUID GT SCH (21:18)
[2019-07-03] MEDS: POLYVINYL ALCOHOL OPHT DROPS 15 ML BOTTLE EACHEYE SCH ×6 (00:42→20:45)
[2019-07-03] MEDS: ALBUTEROL SULFATE 2.5 MG/3 ML NEBU NEB SCH ×4 (00:50→20:10)
[2019-07-03] MEDS: IPRATROPIUM BROMIDE 0.5 MG/2.5 ML NEBU NEB SCH ×4 (00:50→20:10)
[2019-07-03] MEDS: LEVOTHYROXINE SODIUM 50 MCG TABLET GT SCH (06:03)
[2019-07-03] MEDS: CARBIDOPA/LEVODOPA 25-100MG TABLET GT SCH ×3 (06:03→21:46)
[2019-07-03] MEDS: FAMOTIDINE 20 MG TABLET GT SCH (06:04)
[2019-07-03 07:48] VITALS: BP 110/63
[2019-07-03] MEDS: CALCIUM CARB/VITAMIN D 600-400 MG TABLET GT SCH ×2 (08:38→20:48)
[2019-07-03] MEDS: HYDROGEN PEROXIDE 3% 118 ML BOTTLE TP SCH ×2 (08:39→20:10)
[2019-07-03] MEDS: ENOXAPARIN SODIUM 30 MG/0.3 ML DISP.SYRIN SUBCUT SCH (08:41)
[2019-07-03] MEDS: COD LIVER OIL/ZINC OXIDE OINT 113 GM TUBE TP SCH ×2 (08:41→20:50)
[2019-07-03] MEDS: OSMOLITE 1.2 CAL 1,000 ML LIQUID GT PRN (15:59)
[2019-07-03 20:05] VITALS: BP 132/68
[2019-07-03] MEDS: MINERAL OIL/PETROLAT OPHT OINT 3.5 GM TUBE EACHEYE SCH (20:48)
[2019-07-03] MEDS: SACCHAROMYCES BOULARDII GT SCH (20:49)
[2019-07-03] MEDS: PROTEIN SUPPLEMENT (PROSTAT) 30 ML LIQUID GT SCH (20:50)
[2019-07-04] MEDS: POLYVINYL ALCOHOL OPHT DROPS 15 ML BOTTLE EACHEYE SCH ×6 (01:19→20:32)
[2019-07-04] MEDS: ALBUTEROL SULFATE 2.5 MG/3 ML NEBU NEB SCH ×4 (02:00→19:30)
[2019-07-04] MEDS: IPRATROPIUM BROMIDE 0.5 MG/2.5 ML NEBU NEB SCH ×4 (02:00→19:30)
[2019-07-04] MEDS: CARBIDOPA/LEVODOPA 25-100MG TABLET GT SCH ×3 (05:17→21:22)
[2019-07-04] MEDS: LEVOTHYROXINE SODIUM 50 MCG TABLET GT SCH (05:17)
[2019-07-04] MEDS: FAMOTIDINE 20 MG TABLET GT SCH (05:42)
[2019-07-04] MEDS: HYDROGEN PEROXIDE 3% 118 ML BOTTLE TP SCH ×2 (07:30→21:07)
[2019-07-04 08:02] VITALS: BP 137/45
[2019-07-04] MEDS: COD LIVER OIL/ZINC OXIDE OINT 113 GM TUBE TP SCH ×2 (09:13→20:32)
[2019-07-04] MEDS: CALCIUM CARB/VITAMIN D 600-400 MG TABLET GT SCH ×2 (09:13→20:32)
[2019-07-04] MEDS: ENOXAPARIN SODIUM 30 MG/0.3 ML DISP.SYRIN SUBCUT SCH (09:14)
[2019-07-04] MEDS: OSMOLITE 1.2 CAL 1,000 ML LIQUID GT PRN (18:12)
[2019-07-04 20:27] VITALS: BP 128/57
[2019-07-04] MEDS: MINERAL OIL/PETROLAT OPHT OINT 3.5 GM TUBE EACHEYE SCH (20:32)
[2019-07-04] MEDS: PROTEIN SUPPLEMENT (PROSTAT) 30 ML LIQUID GT SCH (20:32)
[2019-07-04] MEDS: SACCHAROMYCES BOULARDII GT SCH (20:32)
[2019-07-05] MEDS: ALBUTEROL SULFATE 2.5 MG/3 ML NEBU NEB SCH ×4 (00:37→19:40)
[2019-07-05] MEDS: IPRATROPIUM BROMIDE 0.5 MG/2.5 ML NEBU NEB SCH ×4 (00:37→19:40)
[2019-07-05] MEDS: POLYVINYL ALCOHOL OPHT DROPS 15 ML BOTTLE EACHEYE SCH ×6 (01:55→21:00)
[2019-07-05] MEDS: CARBIDOPA/LEVODOPA 25-100MG TABLET GT SCH ×3 (05:28→22:40)
[2019-07-05] MEDS: LEVOTHYROXINE SODIUM 50 MCG TABLET GT SCH (05:28)
[2019-07-05] MEDS: FAMOTIDINE 20 MG TABLET GT SCH (05:30)
[2019-07-05 07:58] VITALS: BP 106/50
[2019-07-05] MEDS: HYDROGEN PEROXIDE 3% 118 ML BOTTLE TP SCH ×2 (09:19→21:38)
[2019-07-05] MEDS: CALCIUM CARB/VITAMIN D 600-400 MG TABLET GT SCH ×2 (09:36→21:00)
[2019-07-05] MEDS: COD LIVER OIL/ZINC OXIDE OINT 113 GM TUBE TP SCH ×2 (09:36→21:00)
[2019-07-05] MEDS: ENOXAPARIN SODIUM 30 MG/0.3 ML DISP.SYRIN SUBCUT SCH (09:37)
[2019-07-05 20:41] VITALS: BP 127/62
[2019-07-05] MEDS: MINERAL OIL/PETROLAT OPHT OINT 3.5 GM TUBE EACHEYE SCH (21:00)
[2019-07-05] MEDS: SACCHAROMYCES BOULARDII GT SCH (21:00)
[2019-07-05] MEDS: PROTEIN SUPPLEMENT (PROSTAT) 30 ML LIQUID GT SCH (21:00)
[2019-07-05] MEDS: OSMOLITE 1.2 CAL 1,000 ML LIQUID GT PRN (23:00)
[2019-07-06] MEDS: POLYVINYL ALCOHOL OPHT DROPS 15 ML BOTTLE EACHEYE SCH ×6 (01:19→21:17)
[2019-07-06] MEDS: ALBUTEROL SULFATE 2.5 MG/3 ML NEBU NEB SCH ×4 (01:30→19:18)
[2019-07-06] MEDS: IPRATROPIUM BROMIDE 0.5 MG/2.5 ML NEBU NEB SCH ×4 (01:30→19:18)
[2019-07-06] MEDS: CARBIDOPA/LEVODOPA 25-100MG TABLET GT SCH ×3 (06:11→21:18)
[2019-07-06] MEDS: LEVOTHYROXINE SODIUM 50 MCG TABLET GT SCH (06:11)
[2019-07-06] MEDS: FAMOTIDINE 20 MG TABLET GT SCH (06:12)
[2019-07-06 07:26] VITALS: BP 105/54
[2019-07-06] MEDS: HYDROGEN PEROXIDE 3% 118 ML BOTTLE TP SCH ×2 (09:00→20:40)
[2019-07-06] MEDS: CALCIUM CARB/VITAMIN D 600-400 MG TABLET GT SCH ×2 (09:10→21:17)
[2019-07-06] MEDS: COD LIVER OIL/ZINC OXIDE OINT 113 GM TUBE TP SCH ×2 (09:10→21:18)
[2019-07-06] MEDS: ENOXAPARIN SODIUM 30 MG/0.3 ML DISP.SYRIN SUBCUT SCH (09:11)
--- NOTE | 2019-07-06 14:09 | NUR ---
INTERDISCIPLINARY PLAN OF CARE CONFERENCE was held today. Patient's daughter Kimberlee participated in the meeting thru speaker phone. Dr. Yu and the Interdisciplinary Team reviewed the current plan of care in detail. RN reported on patient's medical condition and recent ST evaluation. No major changes in condition were reported. See RN IDT conference notes. RD discussed patient's current feeding formula and the possibility of adjustments, and it was agreed by Dr. Yu, RN, and RD that patient's protein levels would be checked before making any changes. RN to follow-up on labs. See all disciplines IDT notes and physician's progress notes for additional details. Kimberlee's questions were addressed by Dr. Yu and the IDT team, and Kimberlee expressed agreement with the current plan of care.
--- NOTE | 2019-07-06 14:20 | NUR ---
Pharmacy Update from Today's 07/06/19 IDT Meeting: VS: Temp 98.3 BP 105/54 HR 69 LABS: (from 04/27/19, no new labs) Wbc 9.6 H/H 14.5/43.4 Plt 195 Na 141 K 3.9 Cl 106 CO2 29 BUN/SCr 20/0.6 BS 123 Ca 8.6 MEDICATION USE REVIEWED: > Pt not on any anti-psych or anti-seizure medications > Lovenox 30mg daily for DVT Prophylaxis. No bleeding episodes reported. Last plt 195 > On Synthroid 50mcg daily, last TSH 2.215 (0.358-3.740) on 01/18/19. > Pt on famotidine 20mg daily since 04/07/18, ok per renal function > Pt on Binosto 70mg weekly for osteoporosis since 04/15/18. > PRN MED USAGE: (June) Tylenol for pain used x 0 Tylenol for temp used x 0 Artificial Tears used x 0 (per Md, not to d/c despite lack of use as requested by pt family) Imodium used x 0 Benadryl used x 7 NEW ORDERS NOTED: > NA Pt was reviewed and discussed in depth, no medication issues at this time and all changes noted per staff. Family in attendance via phone conference (d/t current covid regulations). No medication concerns noted per family at this time as well, requested to start OTC supplement with MD approval. No further recs at this time, will continue to monitor
[2019-07-06 19:43] VITALS: BP 129/90
[2019-07-06] MEDS: MINERAL OIL/PETROLAT OPHT OINT 3.5 GM TUBE EACHEYE SCH (21:17)
[2019-07-06] MEDS: PROTEIN SUPPLEMENT (PROSTAT) 30 ML LIQUID GT SCH (21:17)
[2019-07-06] MEDS: SACCHAROMYCES BOULARDII GT SCH (21:17)
[2019-07-07] MEDS: IPRATROPIUM BROMIDE 0.5 MG/2.5 ML NEBU NEB SCH ×4 (00:36→20:00)
[2019-07-07] MEDS: ALBUTEROL SULFATE 2.5 MG/3 ML NEBU NEB SCH ×4 (00:37→20:00)
[2019-07-07] MEDS: POLYVINYL ALCOHOL OPHT DROPS 15 ML BOTTLE EACHEYE SCH ×6 (01:00→21:13)
[2019-07-07] MEDS: OSMOLITE 1.2 CAL 1,000 ML LIQUID GT PRN (02:15)
[2019-07-07] MEDS: LEVOTHYROXINE SODIUM 50 MCG TABLET GT SCH (06:11)
[2019-07-07] MEDS: ALENDRONATE GT SCH (06:11)
[2019-07-07] MEDS: FAMOTIDINE 20 MG TABLET GT SCH (06:11)
[2019-07-07] MEDS: CARBIDOPA/LEVODOPA 25-100MG TABLET GT SCH ×3 (06:11→21:16)
[2019-07-07] MEDS: COD LIVER OIL/ZINC OXIDE OINT 113 GM TUBE TP SCH ×2 (08:22→21:16)
[2019-07-07] MEDS: ENOXAPARIN SODIUM 30 MG/0.3 ML DISP.SYRIN SUBCUT SCH (08:22)
[2019-07-07] MEDS: CALCIUM CARB/VITAMIN D 600-400 MG TABLET GT SCH ×2 (08:22→21:13)
[2019-07-07] MEDS: HYDROGEN PEROXIDE 3% 118 ML BOTTLE TP SCH ×2 (09:00→20:00)
[2019-07-07 19:58] VITALS: BP 120/84
[2019-07-07] MEDS: MINERAL OIL/PETROLAT OPHT OINT 3.5 GM TUBE EACHEYE SCH (21:13)
[2019-07-07] MEDS: PROTEIN SUPPLEMENT (PROSTAT) 30 ML LIQUID GT SCH (21:16)
[2019-07-07] MEDS: SACCHAROMYCES BOULARDII GT SCH (21:16)
[2019-07-08] MEDS: POLYVINYL ALCOHOL OPHT DROPS 15 ML BOTTLE EACHEYE SCH ×6 (01:00→21:15)
[2019-07-08] MEDS: IPRATROPIUM BROMIDE 0.5 MG/2.5 ML NEBU NEB SCH ×4 (01:50→19:35)
[2019-07-08] MEDS: ALBUTEROL SULFATE 2.5 MG/3 ML NEBU NEB SCH ×4 (01:50→19:35)
[2019-07-08] MEDS: OSMOLITE 1.2 CAL 1,000 ML LIQUID GT PRN (01:50)
[2019-07-08] MEDS: CARBIDOPA/LEVODOPA 25-100MG TABLET GT SCH ×3 (05:40→21:15)
[2019-07-08] MEDS: FAMOTIDINE 20 MG TABLET GT SCH (05:40)
[2019-07-08] MEDS: LEVOTHYROXINE SODIUM 50 MCG TABLET GT SCH (05:40)
[2019-07-08 07:25] VITALS: BP 101/72
[2019-07-08] MEDS: CALCIUM CARB/VITAMIN D 600-400 MG TABLET GT SCH ×2 (08:57→21:15)
[2019-07-08] MEDS: COD LIVER OIL/ZINC OXIDE OINT 113 GM TUBE TP SCH ×2 (08:57→21:15)
[2019-07-08] MEDS: ENOXAPARIN SODIUM 30 MG/0.3 ML DISP.SYRIN SUBCUT SCH (08:58)
[2019-07-08] MEDS: HYDROGEN PEROXIDE 3% 118 ML BOTTLE TP SCH ×2 (09:00→21:24)
[2019-07-08 20:00] VITALS: BP 103/58
[2019-07-08] MEDS: MINERAL OIL/PETROLAT OPHT OINT 3.5 GM TUBE EACHEYE SCH (21:15)
[2019-07-08] MEDS: PROTEIN SUPPLEMENT (PROSTAT) 30 ML LIQUID GT SCH (21:15)
[2019-07-08] MEDS: SACCHAROMYCES BOULARDII GT SCH (21:15)
[2019-07-09] MEDS: POLYVINYL ALCOHOL OPHT DROPS 15 ML BOTTLE EACHEYE SCH ×6 (01:00→20:27)
[2019-07-09] MEDS: ALBUTEROL SULFATE 2.5 MG/3 ML NEBU NEB SCH ×4 (01:18→20:25)
[2019-07-09] MEDS: IPRATROPIUM BROMIDE 0.5 MG/2.5 ML NEBU NEB SCH ×4 (01:18→20:25)
[2019-07-09] MEDS: OSMOLITE 1.2 CAL 1,000 ML LIQUID GT PRN ×2 (04:31→22:30)
[2019-07-09] MEDS: FAMOTIDINE 20 MG TABLET GT SCH (06:00)
[2019-07-09] MEDS: LEVOTHYROXINE SODIUM 50 MCG TABLET GT SCH (06:00)
[2019-07-09] MEDS: CARBIDOPA/LEVODOPA 25-100MG TABLET GT SCH ×3 (06:00→21:09)
[2019-07-09 07:30] VITALS: BP 132/52
[2019-07-09] MEDS: HYDROGEN PEROXIDE 3% 118 ML BOTTLE TP SCH ×2 (08:16→21:00)
[2019-07-09] MEDS: CALCIUM CARB/VITAMIN D 600-400 MG TABLET GT SCH ×2 (08:51→20:27)
[2019-07-09] MEDS: COD LIVER OIL/ZINC OXIDE OINT 113 GM TUBE TP SCH ×2 (08:56→20:27)
[2019-07-09] MEDS: ENOXAPARIN SODIUM 30 MG/0.3 ML DISP.SYRIN SUBCUT SCH (08:56)
--- NOTE | 2019-07-09 11:50 | NUR ---
Positive Printer Operator Lucy [facility]. Spoke with Son Adalberto, per family request on Turmeric 3 capsules via gt daily.
--- NOTE | 2019-07-09 18:32 | NUR ---
Daughter requested to do FaceTime with mother. Nurse was able to provide time. Patient was happy.
[2019-07-09 20:00] VITALS: BP 108/59
[2019-07-09] MEDS: PROTEIN SUPPLEMENT (PROSTAT) 30 ML LIQUID GT SCH (20:27)
[2019-07-09] MEDS: SACCHAROMYCES BOULARDII GT SCH (20:27)
[2019-07-09] MEDS: MINERAL OIL/PETROLAT OPHT OINT 3.5 GM TUBE EACHEYE SCH (20:57)
[2019-07-10] MEDS: POLYVINYL ALCOHOL OPHT DROPS 15 ML BOTTLE EACHEYE SCH ×6 (01:12→20:13)
[2019-07-10] MEDS: ALBUTEROL SULFATE 2.5 MG/3 ML NEBU NEB SCH ×4 (01:25→19:29)
[2019-07-10] MEDS: IPRATROPIUM BROMIDE 0.5 MG/2.5 ML NEBU NEB SCH ×4 (01:25→19:29)
[2019-07-10] MEDS: CARBIDOPA/LEVODOPA 25-100MG TABLET GT SCH ×3 (05:42→21:07)
[2019-07-10] MEDS: FAMOTIDINE 20 MG TABLET GT SCH (05:42)
[2019-07-10] MEDS: LEVOTHYROXINE SODIUM 50 MCG TABLET GT SCH (05:42)
[2019-07-10 07:47] VITALS: BP 126/57
[2019-07-10] MEDS: CALCIUM CARB/VITAMIN D 600-400 MG TABLET GT SCH ×2 (08:52→20:13)
[2019-07-10] MEDS: COD LIVER OIL/ZINC OXIDE OINT 113 GM TUBE TP SCH ×2 (08:54→20:14)
[2019-07-10] MEDS: ENOXAPARIN SODIUM 30 MG/0.3 ML DISP.SYRIN SUBCUT SCH (08:54)
[2019-07-10] MEDS: HYDROGEN PEROXIDE 3% 118 ML BOTTLE TP SCH ×2 (09:00→19:29)
[2019-07-10 20:02] VITALS: BP 133/65
[2019-07-10] MEDS: SACCHAROMYCES BOULARDII GT SCH (20:13)
[2019-07-10] MEDS: [UNRECOGNIZED DRUG - OTHER] GT SCH (20:13)
[2019-07-10] MEDS: PROTEIN SUPPLEMENT (PROSTAT) 30 ML LIQUID GT SCH (20:14)
[2019-07-10] MEDS: OSMOLITE 1.2 CAL 1,000 ML LIQUID GT PRN (21:07)
[2019-07-10] MEDS: MINERAL OIL/PETROLAT OPHT OINT 3.5 GM TUBE EACHEYE SCH (21:07)
[2019-07-11] MEDS: POLYVINYL ALCOHOL OPHT DROPS 15 ML BOTTLE EACHEYE SCH ×6 (00:15→20:28)
[2019-07-11] MEDS: IPRATROPIUM BROMIDE 0.5 MG/2.5 ML NEBU NEB SCH ×4 (00:42→19:37)
[2019-07-11] MEDS: ALBUTEROL SULFATE 2.5 MG/3 ML NEBU NEB SCH ×4 (00:42→19:37)
[2019-07-11] MEDS: LEVOTHYROXINE SODIUM 50 MCG TABLET GT SCH (05:41)
[2019-07-11] MEDS: FAMOTIDINE 20 MG TABLET GT SCH (05:41)
[2019-07-11] MEDS: CARBIDOPA/LEVODOPA 25-100MG TABLET GT SCH ×3 (05:41→21:04)
[2019-07-11 07:53] VITALS: BP 125/56
[2019-07-11] MEDS: ENOXAPARIN SODIUM 30 MG/0.3 ML DISP.SYRIN SUBCUT SCH (08:15)
[2019-07-11] MEDS: CALCIUM CARB/VITAMIN D 600-400 MG TABLET GT SCH ×2 (08:15→20:28)
[2019-07-11] MEDS: COD LIVER OIL/ZINC OXIDE OINT 113 GM TUBE TP SCH ×2 (08:16→20:28)
[2019-07-11] MEDS: HYDROGEN PEROXIDE 3% 118 ML BOTTLE TP SCH ×2 (09:19→21:09)
[2019-07-11 20:18] VITALS: BP 134/58
[2019-07-11] MEDS: SACCHAROMYCES BOULARDII GT SCH (20:28)
[2019-07-11] MEDS: PROTEIN SUPPLEMENT (PROSTAT) 30 ML LIQUID GT SCH (20:28)
[2019-07-11] MEDS: [UNRECOGNIZED DRUG - OTHER] GT SCH (20:28)
[2019-07-11] MEDS: MINERAL OIL/PETROLAT OPHT OINT 3.5 GM TUBE EACHEYE SCH (20:49)
[2019-07-11] MEDS: OSMOLITE 1.2 CAL 1,000 ML LIQUID GT PRN (21:33)
[2019-07-12] MEDS: IPRATROPIUM BROMIDE 0.5 MG/2.5 ML NEBU NEB SCH ×4 (01:18→19:25)
[2019-07-12] MEDS: ALBUTEROL SULFATE 2.5 MG/3 ML NEBU NEB SCH ×4 (01:18→19:25)
[2019-07-12] MEDS: POLYVINYL ALCOHOL OPHT DROPS 15 ML BOTTLE EACHEYE SCH ×6 (01:34→21:04)
[2019-07-12] MEDS: CARBIDOPA/LEVODOPA 25-100MG TABLET GT SCH ×3 (05:36→21:11)
[2019-07-12] MEDS: FAMOTIDINE 20 MG TABLET GT SCH (05:36)
[2019-07-12] MEDS: LEVOTHYROXINE SODIUM 50 MCG TABLET GT SCH (05:36)
[2019-07-12 07:26] VITALS: BP 129/66
[2019-07-12] MEDS: HYDROGEN PEROXIDE 3% 118 ML BOTTLE TP SCH ×2 (08:57→21:34)
[2019-07-12] MEDS: COD LIVER OIL/ZINC OXIDE OINT 113 GM TUBE TP SCH ×2 (09:22→21:09)
[2019-07-12] MEDS: CALCIUM CARB/VITAMIN D 600-400 MG TABLET GT SCH ×2 (09:22→21:04)
[2019-07-12] MEDS: ENOXAPARIN SODIUM 30 MG/0.3 ML DISP.SYRIN SUBCUT SCH (09:23)
--- NOTE | 2019-07-12 11:30 | NUR ---
Seen by Josi DOWNING with no new order.
[2019-07-12 20:21] VITALS: BP 144/72
[2019-07-12] MEDS: MINERAL OIL/PETROLAT OPHT OINT 3.5 GM TUBE EACHEYE SCH (21:04)
[2019-07-12] MEDS: [UNRECOGNIZED DRUG - OTHER] GT SCH (21:06)
[2019-07-12] MEDS: SACCHAROMYCES BOULARDII GT SCH (21:06)
[2019-07-12] MEDS: PROTEIN SUPPLEMENT (PROSTAT) 30 ML LIQUID GT SCH (21:09)
[2019-07-13] MEDS: POLYVINYL ALCOHOL OPHT DROPS 15 ML BOTTLE EACHEYE SCH ×6 (01:00→20:37)
[2019-07-13] MEDS: IPRATROPIUM BROMIDE 0.5 MG/2.5 ML NEBU NEB SCH ×4 (01:05→19:26)
[2019-07-13] MEDS: ALBUTEROL SULFATE 2.5 MG/3 ML NEBU NEB SCH ×4 (01:05→19:26)
[2019-07-13] MEDS: CARBIDOPA/LEVODOPA 25-100MG TABLET GT SCH ×3 (05:26→21:58)
[2019-07-13] MEDS: LEVOTHYROXINE SODIUM 50 MCG TABLET GT SCH (05:27)
[2019-07-13] MEDS: FAMOTIDINE 20 MG TABLET GT SCH (05:44)
[2019-07-13 07:12] VITALS: BP 93/51
[2019-07-13] MEDS: HYDROGEN PEROXIDE 3% 118 ML BOTTLE TP SCH ×2 (08:28→21:10)
[2019-07-13] MEDS: ENOXAPARIN SODIUM 30 MG/0.3 ML DISP.SYRIN SUBCUT SCH (08:41)
[2019-07-13] MEDS: CALCIUM CARB/VITAMIN D 600-400 MG TABLET GT SCH ×2 (08:42→20:37)
[2019-07-13] MEDS: COD LIVER OIL/ZINC OXIDE OINT 113 GM TUBE TP SCH ×2 (08:42→20:44)
--- NOTE | 2019-07-13 11:15 | NUR ---
New orders noted to change turmeric to 1 caps via Gt daily at 2100,family will provide.
[2019-07-13 20:32] VITALS: BP 119/60
[2019-07-13] MEDS: MINERAL OIL/PETROLAT OPHT OINT 3.5 GM TUBE EACHEYE SCH (20:37)
[2019-07-13] MEDS: SACCHAROMYCES BOULARDII GT SCH (20:43)
[2019-07-13] MEDS: PROTEIN SUPPLEMENT (PROSTAT) 30 ML LIQUID GT SCH (20:43)
[2019-07-13] MEDS: [UNRECOGNIZED DRUG - OTHER] GT SCH (20:43)
[2019-07-14] MEDS: POLYVINYL ALCOHOL OPHT DROPS 15 ML BOTTLE EACHEYE SCH ×6 (01:00→20:51)
[2019-07-14] MEDS: IPRATROPIUM BROMIDE 0.5 MG/2.5 ML NEBU NEB SCH ×4 (01:15→19:04)
[2019-07-14] MEDS: ALBUTEROL SULFATE 2.5 MG/3 ML NEBU NEB SCH ×4 (01:15→19:04)
[2019-07-14] MEDS: ALENDRONATE GT SCH (05:23)
[2019-07-14] MEDS: CARBIDOPA/LEVODOPA 25-100MG TABLET GT SCH ×3 (05:23→21:16)
[2019-07-14] MEDS: LEVOTHYROXINE SODIUM 50 MCG TABLET GT SCH (05:23)
[2019-07-14] MEDS: FAMOTIDINE 20 MG TABLET GT SCH (06:18)
[2019-07-14 07:30] VITALS: BP 120/50
[2019-07-14] MEDS: HYDROGEN PEROXIDE 3% 118 ML BOTTLE TP SCH ×2 (07:30→19:04)
[2019-07-14] MEDS: CALCIUM CARB/VITAMIN D 600-400 MG TABLET GT SCH ×2 (08:49→20:51)
[2019-07-14] MEDS: ENOXAPARIN SODIUM 30 MG/0.3 ML DISP.SYRIN SUBCUT SCH (08:50)
[2019-07-14] MEDS: COD LIVER OIL/ZINC OXIDE OINT 113 GM TUBE TP SCH ×2 (08:50→20:52)
[2019-07-14 20:38] VITALS: BP 124/69
[2019-07-14] MEDS: PROTEIN SUPPLEMENT (PROSTAT) 30 ML LIQUID GT SCH (20:51)
[2019-07-14] MEDS: SACCHAROMYCES BOULARDII GT SCH (20:51)
[2019-07-14] MEDS: MINERAL OIL/PETROLAT OPHT OINT 3.5 GM TUBE EACHEYE SCH (20:51)
[2019-07-14] MEDS: [UNRECOGNIZED DRUG - OTHER] GT SCH (20:51)
[2019-07-15] MEDS: ALBUTEROL SULFATE 2.5 MG/3 ML NEBU NEB SCH ×4 (00:33→18:56)
[2019-07-15] MEDS: IPRATROPIUM BROMIDE 0.5 MG/2.5 ML NEBU NEB SCH ×4 (00:33→18:56)
[2019-07-15] MEDS: POLYVINYL ALCOHOL OPHT DROPS 15 ML BOTTLE EACHEYE SCH ×6 (01:00→20:43)
[2019-07-15] MEDS: LEVOTHYROXINE SODIUM 50 MCG TABLET GT SCH (05:51)
[2019-07-15] MEDS: FAMOTIDINE 20 MG TABLET GT SCH (05:51)
[2019-07-15] MEDS: CARBIDOPA/LEVODOPA 25-100MG TABLET GT SCH ×3 (05:51→22:16)
[2019-07-15 07:24] VITALS: BP 127/74
[2019-07-15] MEDS: COD LIVER OIL/ZINC OXIDE OINT 113 GM TUBE TP SCH ×2 (08:40→20:48)
[2019-07-15] MEDS: CALCIUM CARB/VITAMIN D 600-400 MG TABLET GT SCH ×2 (08:40→20:47)
[2019-07-15] MEDS: ENOXAPARIN SODIUM 30 MG/0.3 ML DISP.SYRIN SUBCUT SCH (08:40)
[2019-07-15] MEDS: HYDROGEN PEROXIDE 3% 118 ML BOTTLE TP SCH ×2 (09:30→18:56)
[2019-07-15] MEDS: OSMOLITE 1.2 CAL 1,000 ML LIQUID GT PRN (12:15)
--- NOTE | 2019-07-15 14:28 | NUR ---
MARINO sent patient's daughter Kimberlee and son Adalberto an email informing them that effective July 15, video chats with the patient will be done through [employer].
--- NOTE | 2019-07-15 15:15 | NUR ---
PT's son requested for FaceTime. PT was resting, calm and no distress. Son was content.
--- NOTE | 2019-07-15 18:49 | NUR ---
SEEN BY DR. FLORES WITH NEW ORDERS CARRIED OUT ALREADY DISCUSSED BETWEEN DAPHNE DICKENS PHARMACIST ,DR. FLORES AND PT'S STANLEYRRandall URRUTIA.
[2019-07-15 20:36] VITALS: BP 137/63
[2019-07-15] MEDS: MINERAL OIL/PETROLAT OPHT OINT 3.5 GM TUBE EACHEYE SCH (20:47)
[2019-07-15] MEDS: SACCHAROMYCES BOULARDII GT SCH (20:48)
[2019-07-15] MEDS: PROTEIN SUPPLEMENT (PROSTAT) 30 ML LIQUID GT SCH (20:48)
[2019-07-16] MEDS: ALBUTEROL SULFATE 2.5 MG/3 ML NEBU NEB SCH ×4 (00:35→18:57)
[2019-07-16] MEDS: IPRATROPIUM BROMIDE 0.5 MG/2.5 ML NEBU NEB SCH ×4 (00:35→18:57)
[2019-07-16] MEDS: POLYVINYL ALCOHOL OPHT DROPS 15 ML BOTTLE EACHEYE SCH ×6 (01:00→20:59)
[2019-07-16] MEDS: CARBIDOPA/LEVODOPA 25-100MG TABLET GT SCH ×3 (05:28→21:51)
[2019-07-16] MEDS: LEVOTHYROXINE SODIUM 50 MCG TABLET GT SCH (05:28)
[2019-07-16 07:27] VITALS: BP 122/56
[2019-07-16] MEDS: HYDROGEN PEROXIDE 3% 118 ML BOTTLE TP SCH ×2 (07:50→18:57)
[2019-07-16] MEDS: CALCIUM CARB/VITAMIN D 600-400 MG TABLET GT SCH ×2 (09:45→20:59)
[2019-07-16] MEDS: [UNRECOGNIZED DRUG - OTHER] GT SCH (09:46)
[2019-07-16] MEDS: [UNRECOGNIZED DRUG - OTHER] GT SCH (09:50)
[2019-07-16] MEDS: ENOXAPARIN SODIUM 30 MG/0.3 ML DISP.SYRIN SUBCUT SCH (09:51)
[2019-07-16] MEDS: COD LIVER OIL/ZINC OXIDE OINT 113 GM TUBE TP SCH ×2 (09:51→20:59)
[2019-07-16] MEDS: OSMOLITE 1.2 CAL 1,000 ML LIQUID GT PRN (13:47)
[2019-07-16] MEDS: MINERAL OIL/PETROLAT OPHT OINT 3.5 GM TUBE EACHEYE SCH (20:59)
[2019-07-16] MEDS: SACCHAROMYCES BOULARDII GT SCH (20:59)
[2019-07-16] MEDS: PROTEIN SUPPLEMENT (PROSTAT) 30 ML LIQUID GT SCH (20:59)
[2019-07-16 22:45] VITALS: BP 136/62
[2019-07-16 22:52] VITALS: BP 136/62
[2019-07-17] MEDS: ALBUTEROL SULFATE 2.5 MG/3 ML NEBU NEB SCH ×4 (01:05→19:23)
[2019-07-17] MEDS: IPRATROPIUM BROMIDE 0.5 MG/2.5 ML NEBU NEB SCH ×4 (01:05→19:23)
[2019-07-17] MEDS: POLYVINYL ALCOHOL OPHT DROPS 15 ML BOTTLE EACHEYE SCH ×6 (01:54→21:20)
[2019-07-17] MEDS: LEVOTHYROXINE SODIUM 50 MCG TABLET GT SCH (05:19)
[2019-07-17] MEDS: CARBIDOPA/LEVODOPA 25-100MG TABLET GT SCH ×3 (05:19→21:23)
[2019-07-17] MEDS: FAMOTIDINE 20 MG TABLET GT SCH (06:19)
[2019-07-17] MEDS: HYDROGEN PEROXIDE 3% 118 ML BOTTLE TP SCH ×2 (07:26→21:14)
[2019-07-17 07:48] VITALS: BP 126/55
[2019-07-17] MEDS: CALCIUM CARB/VITAMIN D 600-400 MG TABLET GT SCH ×2 (09:18→21:21)
[2019-07-17] MEDS: [UNRECOGNIZED DRUG - OTHER] GT SCH (09:19)
[2019-07-17] MEDS: [UNRECOGNIZED DRUG - OTHER] GT SCH (09:19)
[2019-07-17] MEDS: COD LIVER OIL/ZINC OXIDE OINT 113 GM TUBE TP SCH ×2 (09:20→21:23)
[2019-07-17] MEDS: ENOXAPARIN SODIUM 30 MG/0.3 ML DISP.SYRIN SUBCUT SCH (09:20)
[2019-07-17] MEDS: SACCHAROMYCES BOULARDII GT SCH (21:22)
[2019-07-17] MEDS: MINERAL OIL/PETROLAT OPHT OINT 3.5 GM TUBE EACHEYE SCH (21:22)
[2019-07-17] MEDS: PROTEIN SUPPLEMENT (PROSTAT) 30 ML LIQUID GT SCH (21:23)
[2019-07-17 22:09] VITALS: BP 132/62
[2019-07-18] MEDS: IPRATROPIUM BROMIDE 0.5 MG/2.5 ML NEBU NEB SCH ×4 (00:38→19:32)
[2019-07-18] MEDS: ALBUTEROL SULFATE 2.5 MG/3 ML NEBU NEB SCH ×4 (00:38→19:32)
[2019-07-18] MEDS: POLYVINYL ALCOHOL OPHT DROPS 15 ML BOTTLE EACHEYE SCH ×6 (00:41→20:52)
[2019-07-18] MEDS: CARBIDOPA/LEVODOPA 25-100MG TABLET GT SCH ×3 (05:37→21:11)
[2019-07-18] MEDS: FAMOTIDINE 20 MG TABLET GT SCH (05:37)
[2019-07-18] MEDS: LEVOTHYROXINE SODIUM 50 MCG TABLET GT SCH (05:37)
[2019-07-18] MEDS: OSMOLITE 1.2 CAL 1,000 ML LIQUID GT PRN (06:05)
[2019-07-18 07:45] VITALS: BP 127/61
[2019-07-18] MEDS: ENOXAPARIN SODIUM 30 MG/0.3 ML DISP.SYRIN SUBCUT SCH (08:18)
[2019-07-18] MEDS: CALCIUM CARB/VITAMIN D 600-400 MG TABLET GT SCH ×2 (08:22→20:53)
[2019-07-18] MEDS: [UNRECOGNIZED DRUG - OTHER] GT SCH (08:24)
[2019-07-18] MEDS: [UNRECOGNIZED DRUG - OTHER] GT SCH (08:24)
[2019-07-18] MEDS: COD LIVER OIL/ZINC OXIDE OINT 113 GM TUBE TP SCH ×2 (08:24→20:53)
[2019-07-18] MEDS: HYDROGEN PEROXIDE 3% 118 ML BOTTLE TP SCH ×2 (09:50→21:37)
--- NOTE | 2019-07-18 19:59 | NUR ---
Seen notes from Dr. Mayer with no new orders.
[2019-07-18] MEDS: PROTEIN SUPPLEMENT (PROSTAT) 30 ML LIQUID GT SCH (20:53)
[2019-07-18] MEDS: MINERAL OIL/PETROLAT OPHT OINT 3.5 GM TUBE EACHEYE SCH (20:53)
[2019-07-18] MEDS: SACCHAROMYCES BOULARDII GT SCH (20:53)
[2019-07-18 22:44] VITALS: BP 130/60
[2019-07-19] MEDS: ALBUTEROL SULFATE 2.5 MG/3 ML NEBU NEB SCH ×4 (01:12→19:09)
[2019-07-19] MEDS: IPRATROPIUM BROMIDE 0.5 MG/2.5 ML NEBU NEB SCH ×4 (01:12→19:09)
[2019-07-19] MEDS: POLYVINYL ALCOHOL OPHT DROPS 15 ML BOTTLE EACHEYE SCH ×6 (01:39→21:51)
[2019-07-19] MEDS: CARBIDOPA/LEVODOPA 25-100MG TABLET GT SCH ×3 (05:14→21:51)
[2019-07-19] MEDS: LEVOTHYROXINE SODIUM 50 MCG TABLET GT SCH (05:14)
[2019-07-19] MEDS: FAMOTIDINE 20 MG TABLET GT SCH (05:33)
[2019-07-19 07:57] VITALS: BP 139/51
[2019-07-19] MEDS: HYDROGEN PEROXIDE 3% 118 ML BOTTLE TP SCH ×2 (09:00→20:54)
[2019-07-19] MEDS: COD LIVER OIL/ZINC OXIDE OINT 113 GM TUBE TP SCH ×2 (09:27→21:51)
[2019-07-19] MEDS: [UNRECOGNIZED DRUG - OTHER] GT SCH (09:29)
[2019-07-19] MEDS: CALCIUM CARB/VITAMIN D 600-400 MG TABLET GT SCH ×2 (09:30→21:51)
[2019-07-19] MEDS: [UNRECOGNIZED DRUG - OTHER] GT SCH (09:31)
[2019-07-19] MEDS: ENOXAPARIN SODIUM 30 MG/0.3 ML DISP.SYRIN SUBCUT SCH (09:37)
--- NOTE | 2019-07-19 12:00 | NUR ---
Seen by Kristen sinclair and with nno.
--- NOTE | 2019-07-19 16:00 | NUR ---
MESSAGE LEFT TO PT'S DTR. RE:QUESTION ABOUT PROBIOTICS JUST DELIVERED TO [facility] AND AWAITING FOR CALL BACK.
[2019-07-19 20:00] VITALS: BP 143/98
[2019-07-19] MEDS: MINERAL OIL/PETROLAT OPHT OINT 3.5 GM TUBE EACHEYE SCH (21:51)
[2019-07-19] MEDS: PROTEIN SUPPLEMENT (PROSTAT) 30 ML LIQUID GT SCH (21:51)
[2019-07-19] MEDS: SACCHAROMYCES BOULARDII GT SCH (21:51)
[2019-07-20] MEDS: IPRATROPIUM BROMIDE 0.5 MG/2.5 ML NEBU NEB SCH ×4 (00:44→19:16)
[2019-07-20] MEDS: ALBUTEROL SULFATE 2.5 MG/3 ML NEBU NEB SCH ×4 (00:44→19:16)
[2019-07-20] MEDS: POLYVINYL ALCOHOL OPHT DROPS 15 ML BOTTLE EACHEYE SCH ×6 (01:16→21:06)
[2019-07-20] MEDS: CARBIDOPA/LEVODOPA 25-100MG TABLET GT SCH ×3 (05:18→21:07)
[2019-07-20] MEDS: LEVOTHYROXINE SODIUM 50 MCG TABLET GT SCH (05:18)
[2019-07-20] MEDS: FAMOTIDINE 20 MG TABLET GT SCH (05:50)
[2019-07-20] MEDS: OSMOLITE 1.2 CAL 1,000 ML LIQUID GT PRN (07:02)
[2019-07-20 07:28] VITALS: BP 108/51
[2019-07-20 07:30] VITALS: BP 131/53
[2019-07-20] MEDS: HYDROGEN PEROXIDE 3% 118 ML BOTTLE TP SCH ×2 (09:04→20:39)
[2019-07-20] MEDS: CALCIUM CARB/VITAMIN D 600-400 MG TABLET GT SCH ×2 (09:16→21:07)
[2019-07-20] MEDS: [UNRECOGNIZED DRUG - OTHER] GT SCH (09:17)
[2019-07-20] MEDS: COD LIVER OIL/ZINC OXIDE OINT 113 GM TUBE TP SCH ×2 (09:18→21:07)
[2019-07-20] MEDS: ENOXAPARIN SODIUM 30 MG/0.3 ML DISP.SYRIN SUBCUT SCH (09:26)
[2019-07-20] MEDS: [UNRECOGNIZED DRUG - OTHER] GT SCH (09:32)
[2019-07-20] MEDS: diphenhydrAMINE 1% CREAM 28.3 GM TUBE TP PRN (12:28)
--- NOTE | 2019-07-20 16:00 | NUR ---
VIDEO CHAT DONE WITH PT'S DAUGHTER MAURI.
[2019-07-20 20:00] VITALS: BP_SYST 106; BP_SYST 130; BP_DIAS 65
[2019-07-20] MEDS: PROTEIN SUPPLEMENT (PROSTAT) 30 ML LIQUID GT SCH (21:07)
[2019-07-20] MEDS: MINERAL OIL/PETROLAT OPHT OINT 3.5 GM TUBE EACHEYE SCH (21:07)
[2019-07-20] MEDS: SACCHAROMYCES BOULARDII GT SCH (21:07)
[2019-07-21] MEDS: IPRATROPIUM BROMIDE 0.5 MG/2.5 ML NEBU NEB SCH ×4 (00:37→19:48)
[2019-07-21] MEDS: ALBUTEROL SULFATE 2.5 MG/3 ML NEBU NEB SCH ×4 (00:37→19:48)
[2019-07-21] MEDS: POLYVINYL ALCOHOL OPHT DROPS 15 ML BOTTLE EACHEYE SCH ×6 (01:14→21:31)
[2019-07-21] MEDS: OSMOLITE 1.2 CAL 1,000 ML LIQUID GT PRN (01:52)
[2019-07-21] MEDS: FAMOTIDINE 20 MG TABLET GT SCH (05:45)
[2019-07-21] MEDS: CARBIDOPA/LEVODOPA 25-100MG TABLET GT SCH ×3 (05:45→21:36)
[2019-07-21] MEDS: ALENDRONATE GT SCH (05:45)
[2019-07-21] MEDS: LEVOTHYROXINE SODIUM 50 MCG TABLET GT SCH (05:45)
[2019-07-21 07:59] VITALS: BP 134/51
[2019-07-21] MEDS: HYDROGEN PEROXIDE 3% 118 ML BOTTLE TP SCH ×2 (08:17→21:35)
[2019-07-21] MEDS: ENOXAPARIN SODIUM 30 MG/0.3 ML DISP.SYRIN SUBCUT SCH (08:53)
[2019-07-21] MEDS: [UNRECOGNIZED DRUG - OTHER] GT SCH (08:54)
[2019-07-21] MEDS: COD LIVER OIL/ZINC OXIDE OINT 113 GM TUBE TP SCH ×2 (08:54→21:35)
[2019-07-21] MEDS: CALCIUM CARB/VITAMIN D 600-400 MG TABLET GT SCH ×2 (08:54→21:34)
[2019-07-21] MEDS: [UNRECOGNIZED DRUG - OTHER] GT SCH (08:54)
[2019-07-21] MEDS: diphenhydrAMINE 25 MG/10 ML UDC GT PRN (14:00)
[2019-07-21 20:00] VITALS: BP 119/81
[2019-07-21] MEDS: MINERAL OIL/PETROLAT OPHT OINT 3.5 GM TUBE EACHEYE SCH (21:34)
[2019-07-21] MEDS: PROTEIN SUPPLEMENT (PROSTAT) 30 ML LIQUID GT SCH (21:35)
[2019-07-21] MEDS: SACCHAROMYCES BOULARDII GT SCH (21:40)
[2019-07-22] MEDS: POLYVINYL ALCOHOL OPHT DROPS 15 ML BOTTLE EACHEYE SCH ×6 (00:13→20:54)
[2019-07-22] MEDS: ALBUTEROL SULFATE 2.5 MG/3 ML NEBU NEB SCH ×4 (02:02→19:26)
[2019-07-22] MEDS: IPRATROPIUM BROMIDE 0.5 MG/2.5 ML NEBU NEB SCH ×4 (02:02→19:26)
[2019-07-22] MEDS: LEVOTHYROXINE SODIUM 50 MCG TABLET GT SCH (06:31)
[2019-07-22] MEDS: FAMOTIDINE 20 MG TABLET GT SCH (06:31)
[2019-07-22] MEDS: CARBIDOPA/LEVODOPA 25-100MG TABLET GT SCH ×3 (06:31→21:03)
[2019-07-22 07:38] VITALS: BP 130/55
[2019-07-22] MEDS: CALCIUM CARB/VITAMIN D 600-400 MG TABLET GT SCH ×2 (08:56→20:54)
[2019-07-22] MEDS: COD LIVER OIL/ZINC OXIDE OINT 113 GM TUBE TP SCH ×2 (09:04→20:54)
[2019-07-22] MEDS: [UNRECOGNIZED DRUG - OTHER] GT SCH (09:04)
[2019-07-22] MEDS: ENOXAPARIN SODIUM 30 MG/0.3 ML DISP.SYRIN SUBCUT SCH (09:04)
[2019-07-22] MEDS: [UNRECOGNIZED DRUG - OTHER] GT SCH (09:04)
[2019-07-22] MEDS: OSMOLITE 1.2 CAL 1,000 ML LIQUID GT PRN (09:07)
[2019-07-22] MEDS: HYDROGEN PEROXIDE 3% 118 ML BOTTLE TP SCH ×2 (09:22→21:30)
[2019-07-22 20:05] VITALS: BP 137/72
[2019-07-22] MEDS: MINERAL OIL/PETROLAT OPHT OINT 3.5 GM TUBE EACHEYE SCH (20:54)
[2019-07-22] MEDS: PROTEIN SUPPLEMENT (PROSTAT) 30 ML LIQUID GT SCH (20:54)
[2019-07-22] MEDS: SACCHAROMYCES BOULARDII GT SCH (20:54)
[2019-07-23] MEDS: POLYVINYL ALCOHOL OPHT DROPS 15 ML BOTTLE EACHEYE SCH ×6 (01:13→21:01)
[2019-07-23] MEDS: ALBUTEROL SULFATE 2.5 MG/3 ML NEBU NEB SCH ×4 (01:14→19:18)
[2019-07-23] MEDS: IPRATROPIUM BROMIDE 0.5 MG/2.5 ML NEBU NEB SCH ×4 (01:14→19:18)
[2019-07-23] MEDS: LEVOTHYROXINE SODIUM 50 MCG TABLET GT SCH (05:11)
[2019-07-23] MEDS: CARBIDOPA/LEVODOPA 25-100MG TABLET GT SCH ×3 (05:11→21:12)
[2019-07-23] MEDS: FAMOTIDINE 20 MG TABLET GT SCH (06:30)
[2019-07-23 07:56] VITALS: BP 139/45
[2019-07-23] MEDS: HYDROGEN PEROXIDE 3% 118 ML BOTTLE TP SCH ×2 (09:00→21:06)
[2019-07-23] MEDS: [UNRECOGNIZED DRUG - OTHER] GT SCH (09:17)
[2019-07-23] MEDS: ENOXAPARIN SODIUM 30 MG/0.3 ML DISP.SYRIN SUBCUT SCH (09:17)
[2019-07-23] MEDS: CALCIUM CARB/VITAMIN D 600-400 MG TABLET GT SCH ×2 (09:17→21:01)
[2019-07-23] MEDS: [UNRECOGNIZED DRUG - OTHER] GT SCH (09:17)
[2019-07-23] MEDS: COD LIVER OIL/ZINC OXIDE OINT 113 GM TUBE TP SCH ×2 (09:18→21:01)
[2019-07-23] MEDS: OSMOLITE 1.2 CAL 1,000 ML LIQUID GT PRN (12:17)
[2019-07-23 20:17] VITALS: BP 130/62
[2019-07-23] MEDS: SACCHAROMYCES BOULARDII GT SCH (21:01)
[2019-07-23] MEDS: PROTEIN SUPPLEMENT (PROSTAT) 30 ML LIQUID GT SCH (21:01)
[2019-07-23] MEDS: MINERAL OIL/PETROLAT OPHT OINT 3.5 GM TUBE EACHEYE SCH (21:01)
[2019-07-24] MEDS: IPRATROPIUM BROMIDE 0.5 MG/2.5 ML NEBU NEB SCH ×4 (01:24→19:40)
[2019-07-24] MEDS: ALBUTEROL SULFATE 2.5 MG/3 ML NEBU NEB SCH ×4 (01:24→19:40)
[2019-07-24] MEDS: POLYVINYL ALCOHOL OPHT DROPS 15 ML BOTTLE EACHEYE SCH ×6 (01:26→20:54)
[2019-07-24] MEDS: CARBIDOPA/LEVODOPA 25-100MG TABLET GT SCH ×3 (05:15→22:08)
[2019-07-24] MEDS: LEVOTHYROXINE SODIUM 50 MCG TABLET GT SCH (05:15)
[2019-07-24] MEDS: FAMOTIDINE 20 MG TABLET GT SCH (05:36)
[2019-07-24] MEDS: HYDROGEN PEROXIDE 3% 118 ML BOTTLE TP SCH ×2 (07:13→21:29)
[2019-07-24 07:59] VITALS: BP 128/58
[2019-07-24] MEDS: [UNRECOGNIZED DRUG - OTHER] GT SCH (09:13)
[2019-07-24] MEDS: CALCIUM CARB/VITAMIN D 600-400 MG TABLET GT SCH ×2 (09:13→20:54)
[2019-07-24] MEDS: [UNRECOGNIZED DRUG - OTHER] GT SCH (09:13)
[2019-07-24] MEDS: ENOXAPARIN SODIUM 30 MG/0.3 ML DISP.SYRIN SUBCUT SCH (09:14)
[2019-07-24] MEDS: COD LIVER OIL/ZINC OXIDE OINT 113 GM TUBE TP SCH ×2 (09:14→20:55)
[2019-07-24] MEDS: OSMOLITE 1.2 CAL 1,000 ML LIQUID GT PRN (12:16)
[2019-07-24 19:44] VITALS: BP 138/66
[2019-07-24] MEDS: MINERAL OIL/PETROLAT OPHT OINT 3.5 GM TUBE EACHEYE SCH (20:54)
[2019-07-24] MEDS: SACCHAROMYCES BOULARDII GT SCH (20:54)
[2019-07-24] MEDS: PROTEIN SUPPLEMENT (PROSTAT) 30 ML LIQUID GT SCH (20:54)
[2019-07-25] MEDS: POLYVINYL ALCOHOL OPHT DROPS 15 ML BOTTLE EACHEYE SCH ×6 (00:56→21:29)
[2019-07-25] MEDS: IPRATROPIUM BROMIDE 0.5 MG/2.5 ML NEBU NEB SCH ×4 (01:21→19:32)
[2019-07-25] MEDS: ALBUTEROL SULFATE 2.5 MG/3 ML NEBU NEB SCH ×4 (01:21→19:32)
[2019-07-25] MEDS: LEVOTHYROXINE SODIUM 50 MCG TABLET GT SCH (05:11)
[2019-07-25] MEDS: CARBIDOPA/LEVODOPA 25-100MG TABLET GT SCH ×3 (05:11→21:30)
[2019-07-25] MEDS: FAMOTIDINE 20 MG TABLET GT SCH (05:42)
[2019-07-25 08:08] VITALS: BP 126/50
[2019-07-25] MEDS: CALCIUM CARB/VITAMIN D 600-400 MG TABLET GT SCH ×2 (08:40→21:30)
[2019-07-25] MEDS: COD LIVER OIL/ZINC OXIDE OINT 113 GM TUBE TP SCH ×2 (08:40→21:30)
[2019-07-25] MEDS: ENOXAPARIN SODIUM 30 MG/0.3 ML DISP.SYRIN SUBCUT SCH (08:40)
[2019-07-25] MEDS: [UNRECOGNIZED DRUG - OTHER] GT SCH (08:40)
[2019-07-25] MEDS: [UNRECOGNIZED DRUG - OTHER] GT SCH ×2 (08:40→21:30)
[2019-07-25] MEDS: HYDROGEN PEROXIDE 3% 118 ML BOTTLE TP SCH ×2 (09:20→21:05)
[2019-07-25] MEDS: OSMOLITE 1.2 CAL 1,000 ML LIQUID GT PRN (13:55)
[2019-07-25 20:11] VITALS: BP 130/53
[2019-07-25] MEDS: SACCHAROMYCES BOULARDII GT SCH (21:30)
[2019-07-25] MEDS: MINERAL OIL/PETROLAT OPHT OINT 3.5 GM TUBE EACHEYE SCH (21:30)
[2019-07-25] MEDS: PROTEIN SUPPLEMENT (PROSTAT) 30 ML LIQUID GT SCH (21:30)
[2019-07-26] MEDS: ALBUTEROL SULFATE 2.5 MG/3 ML NEBU NEB SCH ×4 (01:06→19:37)
[2019-07-26] MEDS: POLYVINYL ALCOHOL OPHT DROPS 15 ML BOTTLE EACHEYE SCH ×6 (01:06→21:11)
[2019-07-26] MEDS: IPRATROPIUM BROMIDE 0.5 MG/2.5 ML NEBU NEB SCH ×4 (01:06→19:37)
[2019-07-26] MEDS: CARBIDOPA/LEVODOPA 25-100MG TABLET GT SCH ×3 (05:52→21:12)
[2019-07-26] MEDS: LEVOTHYROXINE SODIUM 50 MCG TABLET GT SCH (05:52)
[2019-07-26] MEDS: FAMOTIDINE 20 MG TABLET GT SCH (05:52)
[2019-07-26 07:49] VITALS: BP 141/52
[2019-07-26] MEDS: HYDROGEN PEROXIDE 3% 118 ML BOTTLE TP SCH ×2 (08:25→21:43)
[2019-07-26] MEDS: ENOXAPARIN SODIUM 30 MG/0.3 ML DISP.SYRIN SUBCUT SCH (08:36)
[2019-07-26] MEDS: COD LIVER OIL/ZINC OXIDE OINT 113 GM TUBE TP SCH ×2 (08:36→21:12)
[2019-07-26] MEDS: CALCIUM CARB/VITAMIN D 600-400 MG TABLET GT SCH ×2 (08:36→21:11)
[2019-07-26] MEDS: [UNRECOGNIZED DRUG - OTHER] GT SCH (08:36)
[2019-07-26 20:01] VITALS: BP 132/63
[2019-07-26] MEDS: MINERAL OIL/PETROLAT OPHT OINT 3.5 GM TUBE EACHEYE SCH (21:11)
[2019-07-26] MEDS: SACCHAROMYCES BOULARDII GT SCH (21:11)
[2019-07-26] MEDS: [UNRECOGNIZED DRUG - OTHER] GT SCH (21:12)
[2019-07-26] MEDS: PROTEIN SUPPLEMENT (PROSTAT) 30 ML LIQUID GT SCH (21:12)
[2019-07-27] MEDS: POLYVINYL ALCOHOL OPHT DROPS 15 ML BOTTLE EACHEYE SCH ×6 (01:10→21:03)
[2019-07-27] MEDS: IPRATROPIUM BROMIDE 0.5 MG/2.5 ML NEBU NEB SCH ×4 (01:53→19:25)
[2019-07-27] MEDS: ALBUTEROL SULFATE 2.5 MG/3 ML NEBU NEB SCH ×4 (01:53→19:25)
[2019-07-27] MEDS: FAMOTIDINE 20 MG TABLET GT SCH (05:45)
[2019-07-27] MEDS: CARBIDOPA/LEVODOPA 25-100MG TABLET GT SCH ×3 (05:45→21:08)
[2019-07-27] MEDS: LEVOTHYROXINE SODIUM 50 MCG TABLET GT SCH (05:45)
[2019-07-27 07:44] VITALS: BP 131/50
[2019-07-27] MEDS: HYDROGEN PEROXIDE 3% 118 ML BOTTLE TP SCH ×2 (08:46→21:04)
[2019-07-27] MEDS: ENOXAPARIN SODIUM 30 MG/0.3 ML DISP.SYRIN SUBCUT SCH (09:17)
[2019-07-27] MEDS: CALCIUM CARB/VITAMIN D 600-400 MG TABLET GT SCH ×2 (09:18→21:03)
[2019-07-27] MEDS: [UNRECOGNIZED DRUG - OTHER] GT SCH (09:19)
[2019-07-27] MEDS: COD LIVER OIL/ZINC OXIDE OINT 113 GM TUBE TP SCH ×2 (09:19→21:08)
--- NOTE | 2019-07-27 12:30 | NUR ---
Assisted video chat with pt's son at this time.
[2019-07-27] MEDS: OSMOLITE 1.2 CAL 1,000 ML LIQUID GT PRN (12:48)
[2019-07-27 19:53] VITALS: BP 109/61
[2019-07-27] MEDS: MINERAL OIL/PETROLAT OPHT OINT 3.5 GM TUBE EACHEYE SCH (21:03)
[2019-07-27] MEDS: [UNRECOGNIZED DRUG - OTHER] GT SCH (21:05)
[2019-07-27] MEDS: [UNRECOGNIZED DRUG - OTHER] GT SCH (21:07)
[2019-07-27] MEDS: PROTEIN SUPPLEMENT (PROSTAT) 30 ML LIQUID GT SCH (21:08)
[2019-07-28] MEDS: IPRATROPIUM BROMIDE 0.5 MG/2.5 ML NEBU NEB SCH ×4 (00:40→19:39)
[2019-07-28] MEDS: ALBUTEROL SULFATE 2.5 MG/3 ML NEBU NEB SCH ×4 (00:40→19:39)
[2019-07-28] MEDS: POLYVINYL ALCOHOL OPHT DROPS 15 ML BOTTLE EACHEYE SCH ×6 (01:12→20:54)
[2019-07-28] MEDS: LEVOTHYROXINE SODIUM 50 MCG TABLET GT SCH (05:45)
[2019-07-28] MEDS: CARBIDOPA/LEVODOPA 25-100MG TABLET GT SCH ×3 (05:45→21:00)
[2019-07-28] MEDS: ALENDRONATE GT SCH (05:45)
[2019-07-28] MEDS: FAMOTIDINE 20 MG TABLET GT SCH (05:46)
[2019-07-28 08:00] VITALS: BP 102/35
[2019-07-28] MEDS: HYDROGEN PEROXIDE 3% 118 ML BOTTLE TP SCH ×2 (09:16→21:20)
[2019-07-28] MEDS: CALCIUM CARB/VITAMIN D 600-400 MG TABLET GT SCH ×2 (09:24→20:54)
[2019-07-28] MEDS: COD LIVER OIL/ZINC OXIDE OINT 113 GM TUBE TP SCH ×2 (09:25→20:59)
[2019-07-28] MEDS: [UNRECOGNIZED DRUG - OTHER] GT SCH (09:25)
[2019-07-28] MEDS: ENOXAPARIN SODIUM 30 MG/0.3 ML DISP.SYRIN SUBCUT SCH (09:27)
[2019-07-28] MEDS: OSMOLITE 1.2 CAL 1,000 ML LIQUID GT PRN (14:36)
--- NOTE | 2019-07-28 17:08 | NUR ---
New orders to do the Baseline [facility] Covid 19 test requirement.
[2019-07-28] MEDS: diphenhydrAMINE 1% CREAM 28.3 GM TUBE TP PRN (17:58)
[2019-07-28] MEDS: diphenhydrAMINE 25 MG/10 ML UDC GT PRN (17:58)
[2019-07-28 19:51] VITALS: BP 131/52
[2019-07-28] MEDS: MINERAL OIL/PETROLAT OPHT OINT 3.5 GM TUBE EACHEYE SCH (20:54)
[2019-07-28] MEDS: [UNRECOGNIZED DRUG - OTHER] GT SCH (20:54)
[2019-07-28] MEDS: [UNRECOGNIZED DRUG - OTHER] GT SCH (20:58)
[2019-07-28] MEDS: PROTEIN SUPPLEMENT (PROSTAT) 30 ML LIQUID GT SCH (20:59)
[2019-07-29] MEDS: POLYVINYL ALCOHOL OPHT DROPS 15 ML BOTTLE EACHEYE SCH ×6 (01:54→20:54)
[2019-07-29] MEDS: ALBUTEROL SULFATE 2.5 MG/3 ML NEBU NEB SCH ×4 (01:55→20:18)
[2019-07-29] MEDS: IPRATROPIUM BROMIDE 0.5 MG/2.5 ML NEBU NEB SCH ×4 (01:55→20:18)
[2019-07-29] MEDS: LEVOTHYROXINE SODIUM 50 MCG TABLET GT SCH (05:51)
[2019-07-29] MEDS: FAMOTIDINE 20 MG TABLET GT SCH (05:51)
[2019-07-29] MEDS: CARBIDOPA/LEVODOPA 25-100MG TABLET GT SCH ×3 (05:51→22:21)
[2019-07-29] MEDS: HYDROGEN PEROXIDE 3% 118 ML BOTTLE TP SCH ×2 (07:12→21:21)
[2019-07-29 07:39] VITALS: BP 123/74
[2019-07-29] MEDS: CALCIUM CARB/VITAMIN D 600-400 MG TABLET GT SCH ×2 (08:05→20:54)
[2019-07-29] MEDS: [UNRECOGNIZED DRUG - OTHER] GT SCH (08:05)
[2019-07-29] MEDS: COD LIVER OIL/ZINC OXIDE OINT 113 GM TUBE TP SCH ×2 (08:06→20:54)
[2019-07-29] MEDS: ENOXAPARIN SODIUM 30 MG/0.3 ML DISP.SYRIN SUBCUT SCH (08:06)
--- NOTE | 2019-07-29 10:08 | NUR ---
SEEN AND EXAMINED BY DR. GRIFFIN AND WITH NNO.
[2019-07-29] MEDS: OSMOLITE 1.2 CAL 1,000 ML LIQUID GT PRN (12:12)
[2019-07-29 20:00] VITALS: BP 117/57
[2019-07-29] MEDS: MINERAL OIL/PETROLAT OPHT OINT 3.5 GM TUBE EACHEYE SCH (20:54)
[2019-07-29] MEDS: [UNRECOGNIZED DRUG - OTHER] GT SCH (20:54)
[2019-07-29] MEDS: PROTEIN SUPPLEMENT (PROSTAT) 30 ML LIQUID GT SCH (20:54)
[2019-07-29] MEDS: [UNRECOGNIZED DRUG - OTHER] GT SCH (20:54)
[2019-07-30] MEDS: POLYVINYL ALCOHOL OPHT DROPS 15 ML BOTTLE EACHEYE SCH ×6 (01:00→20:37)
[2019-07-30] MEDS: ALBUTEROL SULFATE 2.5 MG/3 ML NEBU NEB SCH ×4 (01:51→19:37)
[2019-07-30] MEDS: IPRATROPIUM BROMIDE 0.5 MG/2.5 ML NEBU NEB SCH ×4 (01:51→19:37)
[2019-07-30] MEDS: CARBIDOPA/LEVODOPA 25-100MG TABLET GT SCH ×3 (05:56→21:32)
[2019-07-30] MEDS: LEVOTHYROXINE SODIUM 50 MCG TABLET GT SCH (05:56)
[2019-07-30] MEDS: FAMOTIDINE 20 MG TABLET GT SCH (05:56)
[2019-07-30 07:55] VITALS: BP 117/74
[2019-07-30] MEDS: ENOXAPARIN SODIUM 30 MG/0.3 ML DISP.SYRIN SUBCUT SCH (08:03)
[2019-07-30] MEDS: COD LIVER OIL/ZINC OXIDE OINT 113 GM TUBE TP SCH ×2 (08:03→20:37)
[2019-07-30] MEDS: CALCIUM CARB/VITAMIN D 600-400 MG TABLET GT SCH ×2 (08:03→20:37)
[2019-07-30] MEDS: [UNRECOGNIZED DRUG - OTHER] GT SCH (08:03)
[2019-07-30] MEDS: HYDROGEN PEROXIDE 3% 118 ML BOTTLE TP SCH ×2 (08:44→21:51)
[2019-07-30] MEDS: OSMOLITE 1.2 CAL 1,000 ML LIQUID GT PRN (12:03)
--- NOTE | 2019-07-30 18:00 | NUR ---
PT. NEGATIVE FOR COVID 19.
[2019-07-30] MEDS: diphenhydrAMINE 1% CREAM 28.3 GM TUBE TP PRN (18:03)
[2019-07-30] MEDS: [UNRECOGNIZED DRUG - OTHER] GT SCH (20:37)
[2019-07-30] MEDS: [UNRECOGNIZED DRUG - OTHER] GT SCH (20:37)
[2019-07-30] MEDS: PROTEIN SUPPLEMENT (PROSTAT) 30 ML LIQUID GT SCH (20:37)
[2019-07-30] MEDS: MINERAL OIL/PETROLAT OPHT OINT 3.5 GM TUBE EACHEYE SCH (21:32)
[2019-07-30 22:48] VITALS: BP 114/74
[2019-07-31] MEDS: POLYVINYL ALCOHOL OPHT DROPS 15 ML BOTTLE EACHEYE SCH ×6 (00:27→20:36)
[2019-07-31] MEDS: ALBUTEROL SULFATE 2.5 MG/3 ML NEBU NEB SCH ×4 (01:31→19:28)
[2019-07-31] MEDS: IPRATROPIUM BROMIDE 0.5 MG/2.5 ML NEBU NEB SCH ×4 (01:31→19:28)
[2019-07-31] MEDS: FAMOTIDINE 20 MG TABLET GT SCH (05:33)
[2019-07-31] MEDS: LEVOTHYROXINE SODIUM 50 MCG TABLET GT SCH (05:33)
[2019-07-31] MEDS: CARBIDOPA/LEVODOPA 25-100MG TABLET GT SCH ×3 (05:33→21:07)
[2019-07-31 07:42] VITALS: BP 131/71
[2019-07-31] MEDS: CALCIUM CARB/VITAMIN D 600-400 MG TABLET GT SCH ×2 (08:04→20:36)
[2019-07-31] MEDS: [UNRECOGNIZED DRUG - OTHER] GT SCH (08:04)
[2019-07-31] MEDS: ENOXAPARIN SODIUM 30 MG/0.3 ML DISP.SYRIN SUBCUT SCH (08:05)
[2019-07-31] MEDS: COD LIVER OIL/ZINC OXIDE OINT 113 GM TUBE TP SCH ×2 (08:05→20:36)
[2019-07-31] MEDS: HYDROGEN PEROXIDE 3% 118 ML BOTTLE TP SCH ×2 (09:47→21:26)
[2019-07-31] MEDS: OSMOLITE 1.2 CAL 1,000 ML LIQUID GT PRN (10:51)
[2019-07-31] MEDS: [UNRECOGNIZED DRUG - OTHER] GT SCH (20:36)
[2019-07-31] MEDS: [UNRECOGNIZED DRUG - OTHER] GT SCH (20:36)
[2019-07-31] MEDS: MINERAL OIL/PETROLAT OPHT OINT 3.5 GM TUBE EACHEYE SCH (20:36)
[2019-07-31] MEDS: PROTEIN SUPPLEMENT (PROSTAT) 30 ML LIQUID GT SCH (20:36)
[2019-07-31 22:00] VITALS: BP 126/62
[2019-08-01] MEDS: POLYVINYL ALCOHOL OPHT DROPS 15 ML BOTTLE EACHEYE SCH ×6 (01:13→20:33)
[2019-08-01] MEDS: ALBUTEROL SULFATE 2.5 MG/3 ML NEBU NEB SCH ×4 (01:42→19:16)
[2019-08-01] MEDS: IPRATROPIUM BROMIDE 0.5 MG/2.5 ML NEBU NEB SCH ×4 (01:42→19:16)
[2019-08-01] MEDS: OSMOLITE 1.2 CAL 1,000 ML LIQUID GT PRN (01:49)
[2019-08-01] MEDS: LEVOTHYROXINE SODIUM 50 MCG TABLET GT SCH (05:31)
[2019-08-01] MEDS: FAMOTIDINE 20 MG TABLET GT SCH (05:31)
[2019-08-01] MEDS: CARBIDOPA/LEVODOPA 25-100MG TABLET GT SCH ×3 (05:31→21:13)
[2019-08-01] MEDS: HYDROGEN PEROXIDE 3% 118 ML BOTTLE TP SCH ×2 (07:22→21:27)
[2019-08-01 07:49] VITALS: BP 139/67
[2019-08-01] MEDS: CALCIUM CARB/VITAMIN D 600-400 MG TABLET GT SCH ×2 (08:58→20:33)
[2019-08-01] MEDS: [UNRECOGNIZED DRUG - OTHER] GT SCH (08:58)
[2019-08-01] MEDS: ENOXAPARIN SODIUM 30 MG/0.3 ML DISP.SYRIN SUBCUT SCH (08:59)
[2019-08-01] MEDS: COD LIVER OIL/ZINC OXIDE OINT 113 GM TUBE TP SCH ×2 (08:59→20:34)
[2019-08-01] MEDS: [UNRECOGNIZED DRUG - OTHER] GT SCH (20:33)
[2019-08-01] MEDS: MINERAL OIL/PETROLAT OPHT OINT 3.5 GM TUBE EACHEYE SCH (20:33)
[2019-08-01] MEDS: [UNRECOGNIZED DRUG - OTHER] GT SCH (20:34)
[2019-08-01] MEDS: PROTEIN SUPPLEMENT (PROSTAT) 30 ML LIQUID GT SCH (20:34)
[2019-08-01 21:59] VITALS: BP 130/60
[2019-08-02] MEDS: POLYVINYL ALCOHOL OPHT DROPS 15 ML BOTTLE EACHEYE SCH ×6 (00:40→20:58)
[2019-08-02] MEDS: OSMOLITE 1.2 CAL 1,000 ML LIQUID GT PRN (01:21)
[2019-08-02] MEDS: ALBUTEROL SULFATE 2.5 MG/3 ML NEBU NEB SCH ×4 (01:40→19:36)
[2019-08-02] MEDS: IPRATROPIUM BROMIDE 0.5 MG/2.5 ML NEBU NEB SCH ×4 (01:40→19:36)
[2019-08-02] MEDS: LEVOTHYROXINE SODIUM 50 MCG TABLET GT SCH (05:31)
[2019-08-02] MEDS: FAMOTIDINE 20 MG TABLET GT SCH (05:31)
[2019-08-02] MEDS: CARBIDOPA/LEVODOPA 25-100MG TABLET GT SCH ×3 (05:31→21:00)
[2019-08-02] MEDS: HYDROGEN PEROXIDE 3% 118 ML BOTTLE TP SCH ×2 (07:11→21:43)
[2019-08-02 07:23] VITALS: BP 133/53
[2019-08-02] MEDS: CALCIUM CARB/VITAMIN D 600-400 MG TABLET GT SCH ×2 (08:11→20:58)
[2019-08-02] MEDS: [UNRECOGNIZED DRUG - OTHER] GT SCH (08:12)
[2019-08-02] MEDS: COD LIVER OIL/ZINC OXIDE OINT 113 GM TUBE TP SCH ×2 (08:12→20:59)
[2019-08-02] MEDS: ENOXAPARIN SODIUM 30 MG/0.3 ML DISP.SYRIN SUBCUT SCH (08:12)
--- NOTE | 2019-08-02 13:00 | NUR ---
SEEN BY DANNIE Bailey AND WITH NNO.
[2019-08-02 20:15] VITALS: BP 127/64
[2019-08-02] MEDS: MINERAL OIL/PETROLAT OPHT OINT 3.5 GM TUBE EACHEYE SCH (20:58)
[2019-08-02] MEDS: [UNRECOGNIZED DRUG - OTHER] GT SCH (20:59)
[2019-08-02] MEDS: [UNRECOGNIZED DRUG - OTHER] GT SCH (20:59)
[2019-08-02] MEDS: PROTEIN SUPPLEMENT (PROSTAT) 30 ML LIQUID GT SCH (20:59)
--- NOTE | 2019-08-02 23:12 | NUR ---
Seen by Dr. Foss with no new orders.
[2019-08-03] MEDS: POLYVINYL ALCOHOL OPHT DROPS 15 ML BOTTLE EACHEYE SCH ×6 (01:10→21:07)
[2019-08-03] MEDS: ALBUTEROL SULFATE 2.5 MG/3 ML NEBU NEB SCH ×4 (01:49→20:17)
[2019-08-03] MEDS: IPRATROPIUM BROMIDE 0.5 MG/2.5 ML NEBU NEB SCH ×4 (01:49→20:17)
[2019-08-03] MEDS: LEVOTHYROXINE SODIUM 50 MCG TABLET GT SCH (05:05)
[2019-08-03] MEDS: CARBIDOPA/LEVODOPA 25-100MG TABLET GT SCH ×3 (05:05→21:09)
[2019-08-03] MEDS: FAMOTIDINE 20 MG TABLET GT SCH (05:53)
[2019-08-03 08:18] VITALS: BP 112/56
[2019-08-03] MEDS: HYDROGEN PEROXIDE 3% 118 ML BOTTLE TP SCH ×2 (08:58→21:30)
[2019-08-03] MEDS: [UNRECOGNIZED DRUG - OTHER] GT SCH (09:02)
[2019-08-03] MEDS: CALCIUM CARB/VITAMIN D 600-400 MG TABLET GT SCH ×2 (09:02→21:07)
[2019-08-03] MEDS: COD LIVER OIL/ZINC OXIDE OINT 113 GM TUBE TP SCH ×2 (09:03→21:09)
[2019-08-03] MEDS: ENOXAPARIN SODIUM 30 MG/0.3 ML DISP.SYRIN SUBCUT SCH (09:04)
[2019-08-03] MEDS: OSMOLITE 1.2 CAL 1,000 ML LIQUID GT PRN (10:53)
--- NOTE | 2019-08-03 13:49 | NUR ---
MARINO sent patient's daughter Kimberlee and son Adalberto an email informing them that the next IDT meeting for the patient is scheduled for 08/10/2019 at 11am. MARINO asked Kimberlee and Adalberto to replay to this MARINO's email and let MARINO know if either one of them want to participate in the meeting via speaker phone.
--- NOTE | 2019-08-03 15:48 | NUR ---
MARINO received an email response back from patient's daughter Kimberlee stating that she would like to participate in the IDT meeting on 08/09 via speaker phone. MARINO will call Kimberlee during the meeting.
[2019-08-03] MEDS: diphenhydrAMINE 25 MG/10 ML UDC GT PRN (18:37)
[2019-08-03 20:29] VITALS: BP 106/50
[2019-08-03] MEDS: [UNRECOGNIZED DRUG - OTHER] GT SCH (21:07)
[2019-08-03] MEDS: MINERAL OIL/PETROLAT OPHT OINT 3.5 GM TUBE EACHEYE SCH (21:07)
[2019-08-03] MEDS: [UNRECOGNIZED DRUG - OTHER] GT SCH (21:08)
[2019-08-03] MEDS: PROTEIN SUPPLEMENT (PROSTAT) 30 ML LIQUID GT SCH (21:08)
[2019-08-04] MEDS: POLYVINYL ALCOHOL OPHT DROPS 15 ML BOTTLE EACHEYE SCH ×6 (01:00→21:06)
[2019-08-04] MEDS: ALBUTEROL SULFATE 2.5 MG/3 ML NEBU NEB SCH ×4 (01:25→19:31)
[2019-08-04] MEDS: IPRATROPIUM BROMIDE 0.5 MG/2.5 ML NEBU NEB SCH ×4 (01:25→19:31)
[2019-08-04] MEDS: ALENDRONATE GT SCH (06:10)
[2019-08-04] MEDS: CARBIDOPA/LEVODOPA 25-100MG TABLET GT SCH ×3 (06:10→21:07)
[2019-08-04] MEDS: LEVOTHYROXINE SODIUM 50 MCG TABLET GT SCH (06:11)
[2019-08-04] MEDS: FAMOTIDINE 20 MG TABLET GT SCH (06:11)
[2019-08-04 07:50] VITALS: BP 124/60
[2019-08-04] MEDS: HYDROGEN PEROXIDE 3% 118 ML BOTTLE TP SCH ×2 (09:00→21:47)
[2019-08-04] MEDS: CALCIUM CARB/VITAMIN D 600-400 MG TABLET GT SCH ×2 (09:10→21:06)
[2019-08-04] MEDS: ENOXAPARIN SODIUM 30 MG/0.3 ML DISP.SYRIN SUBCUT SCH (09:11)
[2019-08-04] MEDS: [UNRECOGNIZED DRUG - OTHER] GT SCH (09:11)
[2019-08-04] MEDS: COD LIVER OIL/ZINC OXIDE OINT 113 GM TUBE TP SCH ×2 (09:12→21:07)
[2019-08-04] MEDS: OSMOLITE 1.2 CAL 1,000 ML LIQUID GT PRN (12:03)
--- NOTE | 2019-08-04 16:30 | NUR ---
video chat done with Kimberlee patients daughter.
[2019-08-04 20:00] VITALS: BP 109/58
[2019-08-04] MEDS: [UNRECOGNIZED DRUG - OTHER] GT SCH (21:06)
[2019-08-04] MEDS: MINERAL OIL/PETROLAT OPHT OINT 3.5 GM TUBE EACHEYE SCH (21:06)
[2019-08-04] MEDS: [UNRECOGNIZED DRUG - OTHER] GT SCH (21:07)
[2019-08-04] MEDS: PROTEIN SUPPLEMENT (PROSTAT) 30 ML LIQUID GT SCH (21:07)
[2019-08-05] MEDS: POLYVINYL ALCOHOL OPHT DROPS 15 ML BOTTLE EACHEYE SCH ×6 (01:00→20:57)
[2019-08-05] MEDS: ALBUTEROL SULFATE 2.5 MG/3 ML NEBU NEB SCH ×4 (01:53→19:24)
[2019-08-05] MEDS: IPRATROPIUM BROMIDE 0.5 MG/2.5 ML NEBU NEB SCH ×4 (01:53→19:24)
[2019-08-05] MEDS: FAMOTIDINE 20 MG TABLET GT SCH (06:12)
[2019-08-05] MEDS: CARBIDOPA/LEVODOPA 25-100MG TABLET GT SCH ×3 (06:12→21:00)
[2019-08-05] MEDS: LEVOTHYROXINE SODIUM 50 MCG TABLET GT SCH (06:12)
[2019-08-05 07:48] VITALS: BP 137/74
[2019-08-05] MEDS: CALCIUM CARB/VITAMIN D 600-400 MG TABLET GT SCH ×2 (08:50→20:58)
[2019-08-05] MEDS: [UNRECOGNIZED DRUG - OTHER] GT SCH (08:51)
[2019-08-05] MEDS: COD LIVER OIL/ZINC OXIDE OINT 113 GM TUBE TP SCH ×2 (08:52→20:59)
[2019-08-05] MEDS: ENOXAPARIN SODIUM 30 MG/0.3 ML DISP.SYRIN SUBCUT SCH (08:52)
[2019-08-05] MEDS: HYDROGEN PEROXIDE 3% 118 ML BOTTLE TP SCH ×2 (09:00→21:17)
[2019-08-05] MEDS: OSMOLITE 1.2 CAL 1,000 ML LIQUID GT PRN (09:44)
[2019-08-05 20:10] VITALS: BP 137/53
[2019-08-05] MEDS: [UNRECOGNIZED DRUG - OTHER] GT SCH (20:58)
[2019-08-05] MEDS: MINERAL OIL/PETROLAT OPHT OINT 3.5 GM TUBE EACHEYE SCH (20:58)
[2019-08-05] MEDS: [UNRECOGNIZED DRUG - OTHER] GT SCH (20:58)
[2019-08-05] MEDS: PROTEIN SUPPLEMENT (PROSTAT) 30 ML LIQUID GT SCH (20:58)
[2019-08-06] MEDS: IPRATROPIUM BROMIDE 0.5 MG/2.5 ML NEBU NEB SCH ×4 (00:37→19:26)
[2019-08-06] MEDS: ALBUTEROL SULFATE 2.5 MG/3 ML NEBU NEB SCH ×4 (00:37→19:27)
[2019-08-06] MEDS: POLYVINYL ALCOHOL OPHT DROPS 15 ML BOTTLE EACHEYE SCH ×6 (01:00→21:25)
[2019-08-06] MEDS: OSMOLITE 1.2 CAL 1,000 ML LIQUID GT PRN (05:00)
[2019-08-06] MEDS: LEVOTHYROXINE SODIUM 50 MCG TABLET GT SCH (05:02)
[2019-08-06] MEDS: CARBIDOPA/LEVODOPA 25-100MG TABLET GT SCH ×3 (05:02→21:25)
[2019-08-06] MEDS: FAMOTIDINE 20 MG TABLET GT SCH (06:11)
[2019-08-06 07:49] VITALS: BP 120/62
[2019-08-06] MEDS: HYDROGEN PEROXIDE 3% 118 ML BOTTLE TP SCH ×2 (07:58→21:20)
[2019-08-06] MEDS: CALCIUM CARB/VITAMIN D 600-400 MG TABLET GT SCH ×2 (09:07→21:25)
[2019-08-06] MEDS: COD LIVER OIL/ZINC OXIDE OINT 113 GM TUBE TP SCH ×2 (09:08→21:25)
[2019-08-06] MEDS: ENOXAPARIN SODIUM 30 MG/0.3 ML DISP.SYRIN SUBCUT SCH (09:08)
[2019-08-06] MEDS: [UNRECOGNIZED DRUG - OTHER] GT SCH (09:08)
[2019-08-06 20:06] VITALS: BP 121/61
[2019-08-06] MEDS: MINERAL OIL/PETROLAT OPHT OINT 3.5 GM TUBE EACHEYE SCH (21:25)
[2019-08-06] MEDS: PROTEIN SUPPLEMENT (PROSTAT) 30 ML LIQUID GT SCH (21:25)
[2019-08-06] MEDS: [UNRECOGNIZED DRUG - OTHER] GT SCH (21:25)
[2019-08-06] MEDS: [UNRECOGNIZED DRUG - OTHER] GT SCH (21:25)
[2019-08-07] MEDS: ALBUTEROL SULFATE 2.5 MG/3 ML NEBU NEB SCH ×4 (00:52→20:25)
[2019-08-07] MEDS: POLYVINYL ALCOHOL OPHT DROPS 15 ML BOTTLE EACHEYE SCH ×6 (01:18→20:20)
[2019-08-07] MEDS: IPRATROPIUM BROMIDE 0.5 MG/2.5 ML NEBU NEB SCH ×4 (01:20→20:25)
[2019-08-07] MEDS: OSMOLITE 1.2 CAL 1,000 ML LIQUID GT PRN (03:29)
[2019-08-07] MEDS: CARBIDOPA/LEVODOPA 25-100MG TABLET GT SCH ×3 (05:44→21:11)
[2019-08-07] MEDS: LEVOTHYROXINE SODIUM 50 MCG TABLET GT SCH (05:44)
[2019-08-07] MEDS: FAMOTIDINE 20 MG TABLET GT SCH (05:44)
[2019-08-07 07:59] VITALS: BP 115/67
[2019-08-07] MEDS: CALCIUM CARB/VITAMIN D 600-400 MG TABLET GT SCH ×2 (09:20→20:21)
[2019-08-07] MEDS: HYDROGEN PEROXIDE 3% 118 ML BOTTLE TP SCH ×2 (09:20→21:18)
[2019-08-07] MEDS: [UNRECOGNIZED DRUG - OTHER] GT SCH (09:20)
[2019-08-07] MEDS: ENOXAPARIN SODIUM 30 MG/0.3 ML DISP.SYRIN SUBCUT SCH (09:22)
[2019-08-07] MEDS: COD LIVER OIL/ZINC OXIDE OINT 113 GM TUBE TP SCH ×2 (09:22→20:23)
[2019-08-07 19:49] VITALS: BP 115/58
[2019-08-07] MEDS: MINERAL OIL/PETROLAT OPHT OINT 3.5 GM TUBE EACHEYE SCH (20:21)
[2019-08-07] MEDS: PROTEIN SUPPLEMENT (PROSTAT) 30 ML LIQUID GT SCH (20:23)
[2019-08-07] MEDS: [UNRECOGNIZED DRUG - OTHER] GT SCH (20:23)
[2019-08-07] MEDS: [UNRECOGNIZED DRUG - OTHER] GT SCH (20:23)
[2019-08-08] MEDS: POLYVINYL ALCOHOL OPHT DROPS 15 ML BOTTLE EACHEYE SCH ×6 (01:00→21:13)
[2019-08-08] MEDS: IPRATROPIUM BROMIDE 0.5 MG/2.5 ML NEBU NEB SCH ×4 (01:45→20:28)
[2019-08-08] MEDS: ALBUTEROL SULFATE 2.5 MG/3 ML NEBU NEB SCH ×4 (01:45→20:28)
[2019-08-08] MEDS: OSMOLITE 1.2 CAL 1,000 ML LIQUID GT PRN (05:29)
[2019-08-08] MEDS: CARBIDOPA/LEVODOPA 25-100MG TABLET GT SCH ×3 (05:29→21:15)
[2019-08-08] MEDS: LEVOTHYROXINE SODIUM 50 MCG TABLET GT SCH (05:29)
[2019-08-08] MEDS: FAMOTIDINE 20 MG TABLET GT SCH (05:30)
[2019-08-08] MEDS: HYDROGEN PEROXIDE 3% 118 ML BOTTLE TP SCH ×2 (07:19→21:06)
[2019-08-08 07:46] VITALS: BP 130/58
[2019-08-08] MEDS: CALCIUM CARB/VITAMIN D 600-400 MG TABLET GT SCH ×2 (09:28→21:13)
[2019-08-08] MEDS: [UNRECOGNIZED DRUG - OTHER] GT SCH (09:28)
[2019-08-08] MEDS: ENOXAPARIN SODIUM 30 MG/0.3 ML DISP.SYRIN SUBCUT SCH (09:31)
[2019-08-08] MEDS: COD LIVER OIL/ZINC OXIDE OINT 113 GM TUBE TP SCH ×2 (09:31→21:15)
[2019-08-08] MEDS: diphenhydrAMINE 25 MG/10 ML UDC GT PRN (18:21)
[2019-08-08 20:01] VITALS: BP 134/60
[2019-08-08] MEDS: MINERAL OIL/PETROLAT OPHT OINT 3.5 GM TUBE EACHEYE SCH (21:13)
[2019-08-08] MEDS: [UNRECOGNIZED DRUG - OTHER] GT SCH (21:13)
[2019-08-08] MEDS: PROTEIN SUPPLEMENT (PROSTAT) 30 ML LIQUID GT SCH (21:15)
[2019-08-08] MEDS: [UNRECOGNIZED DRUG - OTHER] GT SCH (21:17)
[2019-08-09] MEDS: POLYVINYL ALCOHOL OPHT DROPS 15 ML BOTTLE EACHEYE SCH ×6 (01:19→21:45)
[2019-08-09] MEDS: ALBUTEROL SULFATE 2.5 MG/3 ML NEBU NEB SCH ×4 (01:25→19:31)
[2019-08-09] MEDS: IPRATROPIUM BROMIDE 0.5 MG/2.5 ML NEBU NEB SCH ×4 (01:25→19:31)
[2019-08-09] MEDS: LEVOTHYROXINE SODIUM 50 MCG TABLET GT SCH (05:47)
[2019-08-09] MEDS: CARBIDOPA/LEVODOPA 25-100MG TABLET GT SCH ×3 (05:47→21:47)
[2019-08-09] MEDS: FAMOTIDINE 20 MG TABLET GT SCH (05:47)
[2019-08-09 07:40] VITALS: BP 134/56
[2019-08-09] MEDS: HYDROGEN PEROXIDE 3% 118 ML BOTTLE TP SCH ×2 (08:01→21:18)
[2019-08-09] MEDS: CALCIUM CARB/VITAMIN D 600-400 MG TABLET GT SCH ×2 (08:43→21:45)
[2019-08-09] MEDS: [UNRECOGNIZED DRUG - OTHER] GT SCH (08:43)
[2019-08-09] MEDS: ENOXAPARIN SODIUM 30 MG/0.3 ML DISP.SYRIN SUBCUT SCH (08:44)
[2019-08-09] MEDS: COD LIVER OIL/ZINC OXIDE OINT 113 GM TUBE TP SCH ×2 (08:44→21:47)
[2019-08-09 20:39] VITALS: BP 115/61
[2019-08-09] MEDS: [UNRECOGNIZED DRUG - OTHER] GT SCH (21:45)
[2019-08-09] MEDS: [UNRECOGNIZED DRUG - OTHER] GT SCH (21:45)
[2019-08-09] MEDS: MINERAL OIL/PETROLAT OPHT OINT 3.5 GM TUBE EACHEYE SCH (21:45)
[2019-08-09] MEDS: PROTEIN SUPPLEMENT (PROSTAT) 30 ML LIQUID GT SCH (21:47)
[2019-08-10] MEDS: POLYVINYL ALCOHOL OPHT DROPS 15 ML BOTTLE EACHEYE SCH ×6 (01:00→20:22)
[2019-08-10] MEDS: IPRATROPIUM BROMIDE 0.5 MG/2.5 ML NEBU NEB SCH ×4 (01:51→19:35)
[2019-08-10] MEDS: ALBUTEROL SULFATE 2.5 MG/3 ML NEBU NEB SCH ×4 (01:51→19:35)
[2019-08-10] MEDS: LEVOTHYROXINE SODIUM 50 MCG TABLET GT SCH (05:04)
[2019-08-10] MEDS: CARBIDOPA/LEVODOPA 25-100MG TABLET GT SCH ×3 (05:04→21:29)
[2019-08-10] MEDS: FAMOTIDINE 20 MG TABLET GT SCH (05:55)
[2019-08-10 07:48] VITALS: BP 120/48
[2019-08-10] MEDS: CALCIUM CARB/VITAMIN D 600-400 MG TABLET GT SCH ×2 (08:34→20:22)
[2019-08-10] MEDS: ENOXAPARIN SODIUM 30 MG/0.3 ML DISP.SYRIN SUBCUT SCH (08:34)
[2019-08-10] MEDS: COD LIVER OIL/ZINC OXIDE OINT 113 GM TUBE TP SCH ×2 (08:35→20:22)
[2019-08-10] MEDS: [UNRECOGNIZED DRUG - OTHER] GT SCH (08:35)
[2019-08-10] MEDS: HYDROGEN PEROXIDE 3% 118 ML BOTTLE TP SCH ×2 (09:00→21:28)
--- NOTE | 2019-08-10 14:22 | NUR ---
INTERDISCIPLINARY PLAN OF CARE CONFERENCE was held today. Patient's daughter Kimberlee participated in the meeting through speaker phone. Dr. Yu and the Interdisciplinary Team reviewed the current plan of care in detail. RN reported on patient's medical condition. No major changes in condition were reported. See RN IDT conference notes. Pharmacy discussed patient's medications and supplements with Kimberlee. See all disciplines IDT notes and physician's progress notes for additional details. Kimberlee's questions were addressed by the IDT team and by Dr. Yu, and Kimberlee expressed understanding and contentment with the current plan of care.
--- NOTE | 2019-08-10 15:26 | NUR ---
Pharmacy Update from Today's 08/10/19 IDT Meeting: VS: Temp 98.2 BP 120/48 HR 73 LABS: (from 04/27/19, no new labs) Wbc 9.6 H/H 14.5/43.4 Plt 195 Na 141 K 3.9 Cl 106 CO2 29 BUN/SCr 20/0.6 BS 123 Ca 8.6 MEDICATION USE REVIEWED: > Pt not on any anti-psych or anti-seizure medications > Lovenox 30mg daily for DVT Prophylaxis. No bleeding episodes reported. Last plt 195 > On Synthroid 50mcg daily, last TSH 2.215 (0.358-3.740) on 01/18/19. > Pt on famotidine 20mg daily since 04/07/18, ok per renal function > Pt on Binosto 70mg weekly for osteoporosis since 04/15/18, ok per renal function. > PRN MED USAGE: (July) Tylenol for pain used x 0 Tylenol for temp used x 0 Artificial Tears used x 0 (per Md, not to d/c despite lack of use as requested by pt family) Imodium used x 0 Benadryl used x 1 NEW ORDERS NOTED: > Started pt own supplement, tumeric 1 capsule daily 07/24 > Started pt own supplement, 'Sharp Thought' supplement - 1 capsule daily 07/15 Pt was reviewed and discussed in depth, no medication issues at this time and all changes noted per staff. Family in attendance via phone conference (d/t current covCaseRev regulations). Family requested for increase of supplement Sharp Thought to twice a day dosing later down the road, possibly in another month's time. Per supplement labeling, general dosing may be up to 3 times a day as tolerated. No issues noted per staff, family will f/u when for increase next. Also requested for timing moved to morning schedule, now changed per request. No further recs per rx, pt otherwise stable and BMs continue to be formed and regular per production staff worker. Will follow
--- NOTE | 2019-08-10 15:29 | NUR ---
Gwen changed to the morning instead of assistant casino shift manager.
[2019-08-10 20:00] VITALS: BP 119/53
[2019-08-10] MEDS: PROTEIN SUPPLEMENT (PROSTAT) 30 ML LIQUID GT SCH (20:22)
[2019-08-10] MEDS: [UNRECOGNIZED DRUG - OTHER] GT SCH (20:22)
[2019-08-10] MEDS: MINERAL OIL/PETROLAT OPHT OINT 3.5 GM TUBE EACHEYE SCH (20:22)
[2019-08-10] MEDS: ACETAMINOPHEN 650 MG/20 ML UDC- SA PATIENTS-PAIN ONLY GT PRN (20:28)
[2019-08-11] MEDS: ALBUTEROL SULFATE 2.5 MG/3 ML NEBU NEB SCH ×4 (01:05→20:42)
[2019-08-11] MEDS: IPRATROPIUM BROMIDE 0.5 MG/2.5 ML NEBU NEB SCH ×4 (01:05→20:42)
[2019-08-11] MEDS: POLYVINYL ALCOHOL OPHT DROPS 15 ML BOTTLE EACHEYE SCH ×6 (01:10→20:43)
[2019-08-11] MEDS: CARBIDOPA/LEVODOPA 25-100MG TABLET GT SCH ×3 (05:11→22:59)
[2019-08-11] MEDS: LEVOTHYROXINE SODIUM 50 MCG TABLET GT SCH (05:11)
[2019-08-11] MEDS: ALENDRONATE GT SCH (05:11)
[2019-08-11] MEDS: FAMOTIDINE 20 MG TABLET GT SCH (05:31)
[2019-08-11 08:00] VITALS: BP 125/84
[2019-08-11] MEDS: CALCIUM CARB/VITAMIN D 600-400 MG TABLET GT SCH ×2 (09:16→20:44)
[2019-08-11] MEDS: [UNRECOGNIZED DRUG - OTHER] GT SCH (09:16)
[2019-08-11] MEDS: ENOXAPARIN SODIUM 30 MG/0.3 ML DISP.SYRIN SUBCUT SCH (09:18)
[2019-08-11] MEDS: [UNRECOGNIZED DRUG - OTHER] GT SCH (09:19)
[2019-08-11] MEDS: COD LIVER OIL/ZINC OXIDE OINT 113 GM TUBE TP SCH ×2 (09:19→20:44)
[2019-08-11] MEDS: HYDROGEN PEROXIDE 3% 118 ML BOTTLE TP SCH ×2 (09:20→21:34)
[2019-08-11 20:09] VITALS: BP 119/58
[2019-08-11] MEDS: PROTEIN SUPPLEMENT (PROSTAT) 30 ML LIQUID GT SCH (20:44)
[2019-08-11] MEDS: MINERAL OIL/PETROLAT OPHT OINT 3.5 GM TUBE EACHEYE SCH (20:44)
[2019-08-11] MEDS: [UNRECOGNIZED DRUG - OTHER] GT SCH (20:44)
[2019-08-11] MEDS: diphenhydrAMINE 25 MG/10 ML UDC GT PRN (21:04)
[2019-08-12] MEDS: ALBUTEROL SULFATE 2.5 MG/3 ML NEBU NEB SCH ×4 (01:27→20:35)
[2019-08-12] MEDS: IPRATROPIUM BROMIDE 0.5 MG/2.5 ML NEBU NEB SCH ×4 (01:27→20:35)
[2019-08-12] MEDS: POLYVINYL ALCOHOL OPHT DROPS 15 ML BOTTLE EACHEYE SCH ×6 (01:44→21:12)
[2019-08-12] MEDS: FAMOTIDINE 20 MG TABLET GT SCH (06:18)
[2019-08-12] MEDS: LEVOTHYROXINE SODIUM 50 MCG TABLET GT SCH (06:18)
[2019-08-12] MEDS: CARBIDOPA/LEVODOPA 25-100MG TABLET GT SCH ×3 (06:18→21:11)
[2019-08-12] MEDS: OSMOLITE 1.2 CAL 1,000 ML LIQUID GT PRN (06:41)
[2019-08-12 08:00] VITALS: BP 147/62
[2019-08-12] MEDS: [UNRECOGNIZED DRUG - OTHER] GT SCH (08:48)
[2019-08-12] MEDS: [UNRECOGNIZED DRUG - OTHER] GT SCH (08:48)
[2019-08-12] MEDS: CALCIUM CARB/VITAMIN D 600-400 MG TABLET GT SCH ×2 (08:48→21:11)
[2019-08-12] MEDS: COD LIVER OIL/ZINC OXIDE OINT 113 GM TUBE TP SCH ×2 (08:49→21:11)
[2019-08-12] MEDS: ENOXAPARIN SODIUM 30 MG/0.3 ML DISP.SYRIN SUBCUT SCH (08:50)
[2019-08-12] MEDS: HYDROGEN PEROXIDE 3% 118 ML BOTTLE TP SCH ×2 (09:47→21:15)
--- NOTE | 2019-08-12 16:00 | NUR ---
Assisted video chat with pts daughter Kimberlee, requested mother to be up on w/c as schedule on 08/14/19 for next zoom session. Nurse in charge aware.
[2019-08-12 20:15] VITALS: BP 120/65
[2019-08-12] MEDS: PROTEIN SUPPLEMENT (PROSTAT) 30 ML LIQUID GT SCH (21:11)
[2019-08-12] MEDS: MINERAL OIL/PETROLAT OPHT OINT 3.5 GM TUBE EACHEYE SCH (21:11)
[2019-08-12] MEDS: [UNRECOGNIZED DRUG - OTHER] GT SCH (21:11)
[2019-08-13] MEDS: POLYVINYL ALCOHOL OPHT DROPS 15 ML BOTTLE EACHEYE SCH ×6 (01:26→21:28)
[2019-08-13] MEDS: IPRATROPIUM BROMIDE 0.5 MG/2.5 ML NEBU NEB SCH ×4 (01:27→13:55)
[2019-08-13] MEDS: ALBUTEROL SULFATE 2.5 MG/3 ML NEBU NEB SCH ×4 (01:27→19:55)
[2019-08-13] MEDS: OSMOLITE 1.2 CAL 1,000 ML LIQUID GT PRN (04:39)
[2019-08-13] MEDS: CARBIDOPA/LEVODOPA 25-100MG TABLET GT SCH ×3 (05:29→21:28)
[2019-08-13] MEDS: LEVOTHYROXINE SODIUM 50 MCG TABLET GT SCH (05:29)
[2019-08-13] MEDS: FAMOTIDINE 20 MG TABLET GT SCH (06:30)
[2019-08-13 07:52] VITALS: BP 130/61
[2019-08-13] MEDS: HYDROGEN PEROXIDE 3% 118 ML BOTTLE TP SCH ×2 (09:00→21:25)
[2019-08-13] MEDS: CALCIUM CARB/VITAMIN D 600-400 MG TABLET GT SCH ×2 (09:27→21:28)
[2019-08-13] MEDS: [UNRECOGNIZED DRUG - OTHER] GT SCH (09:27)
[2019-08-13] MEDS: [UNRECOGNIZED DRUG - OTHER] GT SCH (09:27)
[2019-08-13] MEDS: COD LIVER OIL/ZINC OXIDE OINT 113 GM TUBE TP SCH ×2 (09:28→21:28)
[2019-08-13] MEDS: ENOXAPARIN SODIUM 30 MG/0.3 ML DISP.SYRIN SUBCUT SCH (09:28)
[2019-08-13] MEDS: diphenhydrAMINE 25 MG/10 ML UDC GT PRN (12:01)
[2019-08-13 20:02] VITALS: BP 118/40
[2019-08-13] MEDS: PROTEIN SUPPLEMENT (PROSTAT) 30 ML LIQUID GT SCH (21:28)
[2019-08-13] MEDS: [UNRECOGNIZED DRUG - OTHER] GT SCH (21:28)
[2019-08-13] MEDS: MINERAL OIL/PETROLAT OPHT OINT 3.5 GM TUBE EACHEYE SCH (21:28)
[2019-08-14] MEDS: POLYVINYL ALCOHOL OPHT DROPS 15 ML BOTTLE EACHEYE SCH ×6 (01:15→21:38)
[2019-08-14] MEDS: ALBUTEROL SULFATE 2.5 MG/3 ML NEBU NEB SCH ×4 (01:32→19:23)
[2019-08-14] MEDS: IPRATROPIUM BROMIDE 0.5 MG/2.5 ML NEBU NEB SCH ×4 (01:32→19:23)
[2019-08-14] MEDS: OSMOLITE 1.2 CAL 1,000 ML LIQUID GT PRN (01:58)
[2019-08-14] MEDS: CARBIDOPA/LEVODOPA 25-100MG TABLET GT SCH ×3 (05:41→21:39)
[2019-08-14] MEDS: LEVOTHYROXINE SODIUM 50 MCG TABLET GT SCH (05:41)
[2019-08-14] MEDS: FAMOTIDINE 20 MG TABLET GT SCH (05:41)
[2019-08-14 07:43] VITALS: BP 120/63
[2019-08-14] MEDS: HYDROGEN PEROXIDE 3% 118 ML BOTTLE TP SCH ×2 (08:44→21:36)
[2019-08-14] MEDS: COD LIVER OIL/ZINC OXIDE OINT 113 GM TUBE TP SCH ×2 (09:02→21:39)
[2019-08-14] MEDS: [UNRECOGNIZED DRUG - OTHER] GT SCH (09:02)
[2019-08-14] MEDS: ENOXAPARIN SODIUM 30 MG/0.3 ML DISP.SYRIN SUBCUT SCH (09:02)
[2019-08-14] MEDS: CALCIUM CARB/VITAMIN D 600-400 MG TABLET GT SCH ×2 (09:02→21:39)
[2019-08-14] MEDS: [UNRECOGNIZED DRUG - OTHER] GT SCH (09:02)
[2019-08-14 20:00] VITALS: BP 122/70
[2019-08-14] MEDS: [UNRECOGNIZED DRUG - OTHER] GT SCH (21:39)
[2019-08-14] MEDS: MINERAL OIL/PETROLAT OPHT OINT 3.5 GM TUBE EACHEYE SCH (21:39)
[2019-08-14] MEDS: PROTEIN SUPPLEMENT (PROSTAT) 30 ML LIQUID GT SCH (21:39)
[2019-08-15] MEDS: ALBUTEROL SULFATE 2.5 MG/3 ML NEBU NEB SCH ×4 (00:41→19:40)
[2019-08-15] MEDS: IPRATROPIUM BROMIDE 0.5 MG/2.5 ML NEBU NEB SCH ×4 (00:41→19:40)
[2019-08-15] MEDS: OSMOLITE 1.2 CAL 1,000 ML LIQUID GT PRN (00:45)
[2019-08-15] MEDS: POLYVINYL ALCOHOL OPHT DROPS 15 ML BOTTLE EACHEYE SCH ×6 (01:06→21:04)
--- NOTE | 2019-08-15 01:30 | NUR ---
Noted fungal rash which is on and off on the back of patient's neck, cleanse and kept skin clean and dry, treatment obtained and will start as soon as the medication arrives. no signs of any distress, kept clean and comfortable.
[2019-08-15] MEDS: LEVOTHYROXINE SODIUM 50 MCG TABLET GT SCH (05:36)
[2019-08-15] MEDS: FAMOTIDINE 20 MG TABLET GT SCH (05:36)
[2019-08-15] MEDS: CARBIDOPA/LEVODOPA 25-100MG TABLET GT SCH ×3 (05:36→21:04)
[2019-08-15 07:49] VITALS: BP 132/52
[2019-08-15] MEDS: [UNRECOGNIZED DRUG - OTHER] GT SCH (08:34)
[2019-08-15] MEDS: [UNRECOGNIZED DRUG - OTHER] GT SCH (08:34)
[2019-08-15] MEDS: COD LIVER OIL/ZINC OXIDE OINT 113 GM TUBE TP SCH ×2 (08:34→21:04)
[2019-08-15] MEDS: CALCIUM CARB/VITAMIN D 600-400 MG TABLET GT SCH ×2 (08:34→21:04)
[2019-08-15] MEDS: HYDROGEN PEROXIDE 3% 118 ML BOTTLE TP SCH ×2 (08:35→21:35)
[2019-08-15] MEDS: ENOXAPARIN SODIUM 30 MG/0.3 ML DISP.SYRIN SUBCUT SCH (08:35)
[2019-08-15 20:31] VITALS: BP 117/50
[2019-08-15] MEDS: MINERAL OIL/PETROLAT OPHT OINT 3.5 GM TUBE EACHEYE SCH (21:04)
[2019-08-15] MEDS: [UNRECOGNIZED DRUG - OTHER] GT SCH (21:04)
[2019-08-15] MEDS: PROTEIN SUPPLEMENT (PROSTAT) 30 ML LIQUID GT SCH (21:04)
[2019-08-15] MEDS: NYSTATIN/TRIAMCINOLONE CREAM 15 GM TUBE TOP SCH (21:04)
[2019-08-16] MEDS: IPRATROPIUM BROMIDE 0.5 MG/2.5 ML NEBU NEB SCH ×4 (00:53→19:39)
[2019-08-16] MEDS: ALBUTEROL SULFATE 2.5 MG/3 ML NEBU NEB SCH ×4 (00:53→19:39)
[2019-08-16] MEDS: POLYVINYL ALCOHOL OPHT DROPS 15 ML BOTTLE EACHEYE SCH ×6 (01:09→21:16)
[2019-08-16] MEDS: OSMOLITE 1.2 CAL 1,000 ML LIQUID GT PRN (02:03)
[2019-08-16] MEDS: diphenhydrAMINE 25 MG/10 ML UDC GT PRN (02:03)
[2019-08-16] MEDS: LEVOTHYROXINE SODIUM 50 MCG TABLET GT SCH (05:40)
[2019-08-16] MEDS: CARBIDOPA/LEVODOPA 25-100MG TABLET GT SCH ×3 (05:40→21:16)
[2019-08-16] MEDS: FAMOTIDINE 20 MG TABLET GT SCH (05:40)
[2019-08-16 07:49] VITALS: BP 132/48
[2019-08-16] MEDS: [UNRECOGNIZED DRUG - OTHER] GT SCH (08:49)
[2019-08-16] MEDS: CALCIUM CARB/VITAMIN D 600-400 MG TABLET GT SCH ×2 (08:49→21:16)
[2019-08-16] MEDS: [UNRECOGNIZED DRUG - OTHER] GT SCH (08:49)
[2019-08-16] MEDS: COD LIVER OIL/ZINC OXIDE OINT 113 GM TUBE TP SCH ×2 (08:52→21:16)
[2019-08-16] MEDS: NYSTATIN/TRIAMCINOLONE CREAM 15 GM TUBE TOP SCH ×2 (08:52→21:16)
[2019-08-16] MEDS: ENOXAPARIN SODIUM 30 MG/0.3 ML DISP.SYRIN SUBCUT SCH (08:52)
[2019-08-16] MEDS: HYDROGEN PEROXIDE 3% 118 ML BOTTLE TP SCH ×2 (09:27→21:47)
--- NOTE | 2019-08-16 18:23 | NUR ---
SEEN BY DANNIE Bailey AND WITH NNO.
[2019-08-16 20:22] VITALS: BP 132/90
[2019-08-16] MEDS: PROTEIN SUPPLEMENT (PROSTAT) 30 ML LIQUID GT SCH (21:16)
[2019-08-16] MEDS: MINERAL OIL/PETROLAT OPHT OINT 3.5 GM TUBE EACHEYE SCH (21:16)
[2019-08-16] MEDS: [UNRECOGNIZED DRUG - OTHER] GT SCH (21:16)
[2019-08-17] MEDS: POLYVINYL ALCOHOL OPHT DROPS 15 ML BOTTLE EACHEYE SCH ×6 (01:04→21:05)
[2019-08-17] MEDS: ALBUTEROL SULFATE 2.5 MG/3 ML NEBU NEB SCH ×4 (01:24→20:44)
[2019-08-17] MEDS: IPRATROPIUM BROMIDE 0.5 MG/2.5 ML NEBU NEB SCH ×4 (01:24→20:44)
[2019-08-17] MEDS: CARBIDOPA/LEVODOPA 25-100MG TABLET GT SCH ×3 (05:57→21:08)
[2019-08-17] MEDS: FAMOTIDINE 20 MG TABLET GT SCH (05:57)
[2019-08-17] MEDS: LEVOTHYROXINE SODIUM 50 MCG TABLET GT SCH (05:57)
[2019-08-17] MEDS: OSMOLITE 1.2 CAL 1,000 ML LIQUID GT PRN (06:49)
[2019-08-17 07:57] VITALS: BP 120/87
[2019-08-17] MEDS: [UNRECOGNIZED DRUG - OTHER] GT SCH (09:00)
[2019-08-17] MEDS: [UNRECOGNIZED DRUG - OTHER] GT SCH (09:00)
[2019-08-17] MEDS: CALCIUM CARB/VITAMIN D 600-400 MG TABLET GT SCH ×2 (09:00→21:06)
[2019-08-17] MEDS: COD LIVER OIL/ZINC OXIDE OINT 113 GM TUBE TP SCH ×2 (09:00→21:07)
[2019-08-17] MEDS: NYSTATIN/TRIAMCINOLONE CREAM 15 GM TUBE TOP SCH ×2 (09:00→21:07)
[2019-08-17] MEDS: ENOXAPARIN SODIUM 30 MG/0.3 ML DISP.SYRIN SUBCUT SCH (09:00)
[2019-08-17] MEDS: HYDROGEN PEROXIDE 3% 118 ML BOTTLE TP SCH ×2 (09:51→21:08)
[2019-08-17 20:21] VITALS: BP 120/62
[2019-08-17] MEDS: MINERAL OIL/PETROLAT OPHT OINT 3.5 GM TUBE EACHEYE SCH (21:06)
[2019-08-17] MEDS: PROTEIN SUPPLEMENT (PROSTAT) 30 ML LIQUID GT SCH (21:07)
[2019-08-17] MEDS: [UNRECOGNIZED DRUG - OTHER] GT SCH (21:07)
[2019-08-18] MEDS: POLYVINYL ALCOHOL OPHT DROPS 15 ML BOTTLE EACHEYE SCH ×6 (01:00→21:07)
[2019-08-18] MEDS: ALBUTEROL SULFATE 2.5 MG/3 ML NEBU NEB SCH ×4 (01:35→19:15)
[2019-08-18] MEDS: IPRATROPIUM BROMIDE 0.5 MG/2.5 ML NEBU NEB SCH ×4 (01:35→19:15)
[2019-08-18] MEDS: OSMOLITE 1.2 CAL 1,000 ML LIQUID GT PRN (05:23)
[2019-08-18] MEDS: FAMOTIDINE 20 MG TABLET GT SCH (06:25)
[2019-08-18] MEDS: CARBIDOPA/LEVODOPA 25-100MG TABLET GT SCH ×3 (06:25→21:12)
[2019-08-18] MEDS: ALENDRONATE GT SCH (06:25)
[2019-08-18] MEDS: LEVOTHYROXINE SODIUM 50 MCG TABLET GT SCH (06:25)
[2019-08-18 07:47] VITALS: BP 117/53
[2019-08-18] MEDS: COD LIVER OIL/ZINC OXIDE OINT 113 GM TUBE TP SCH ×2 (09:00→21:10)
[2019-08-18] MEDS: HYDROGEN PEROXIDE 3% 118 ML BOTTLE TP SCH ×2 (09:06→21:01)
[2019-08-18] MEDS: [UNRECOGNIZED DRUG - OTHER] GT SCH (09:50)
[2019-08-18] MEDS: CALCIUM CARB/VITAMIN D 600-400 MG TABLET GT SCH ×2 (09:50→21:07)
[2019-08-18] MEDS: [UNRECOGNIZED DRUG - OTHER] GT SCH (09:50)
[2019-08-18] MEDS: ENOXAPARIN SODIUM 30 MG/0.3 ML DISP.SYRIN SUBCUT SCH (09:51)
[2019-08-18] MEDS: NYSTATIN/TRIAMCINOLONE CREAM 15 GM TUBE TOP SCH ×2 (09:54→21:10)
[2019-08-18 20:00] VITALS: BP 118/74
[2019-08-18] MEDS: MINERAL OIL/PETROLAT OPHT OINT 3.5 GM TUBE EACHEYE SCH (21:07)
[2019-08-18] MEDS: [UNRECOGNIZED DRUG - OTHER] GT SCH (21:09)
[2019-08-18] MEDS: PROTEIN SUPPLEMENT (PROSTAT) 30 ML LIQUID GT SCH (21:10)
[2019-08-19] MEDS: IPRATROPIUM BROMIDE 0.5 MG/2.5 ML NEBU NEB SCH ×4 (00:31→19:22)
[2019-08-19] MEDS: ALBUTEROL SULFATE 2.5 MG/3 ML NEBU NEB SCH ×4 (00:32→19:22)
[2019-08-19] MEDS: POLYVINYL ALCOHOL OPHT DROPS 15 ML BOTTLE EACHEYE SCH ×6 (01:00→20:59)
[2019-08-19] MEDS: OSMOLITE 1.2 CAL 1,000 ML LIQUID GT PRN (04:24)
[2019-08-19] MEDS: FAMOTIDINE 20 MG TABLET GT SCH (05:55)
[2019-08-19] MEDS: CARBIDOPA/LEVODOPA 25-100MG TABLET GT SCH ×3 (05:55→21:01)
[2019-08-19] MEDS: LEVOTHYROXINE SODIUM 50 MCG TABLET GT SCH (05:55)
[2019-08-19 07:48] VITALS: BP 113/64
[2019-08-19] MEDS: diphenhydrAMINE 25 MG/10 ML UDC GT PRN (07:48)
[2019-08-19] MEDS: HYDROGEN PEROXIDE 3% 118 ML BOTTLE TP SCH ×2 (08:47→21:09)
[2019-08-19] MEDS: NYSTATIN/TRIAMCINOLONE CREAM 15 GM TUBE TOP SCH ×2 (08:54→21:01)
[2019-08-19] MEDS: ENOXAPARIN SODIUM 30 MG/0.3 ML DISP.SYRIN SUBCUT SCH (08:54)
[2019-08-19] MEDS: CALCIUM CARB/VITAMIN D 600-400 MG TABLET GT SCH ×2 (08:54→20:59)
[2019-08-19] MEDS: COD LIVER OIL/ZINC OXIDE OINT 113 GM TUBE TP SCH ×2 (08:54→21:01)
[2019-08-19] MEDS: [UNRECOGNIZED DRUG - OTHER] GT SCH (08:54)
[2019-08-19] MEDS: [UNRECOGNIZED DRUG - OTHER] GT SCH (08:54)
--- NOTE | 2019-08-19 12:45 | NUR ---
provided zoom for patient with daughter michael.
[2019-08-19 20:42] VITALS: BP 119/58
[2019-08-19] MEDS: MINERAL OIL/PETROLAT OPHT OINT 3.5 GM TUBE EACHEYE SCH (20:59)
[2019-08-19] MEDS: [UNRECOGNIZED DRUG - OTHER] GT SCH (21:00)
[2019-08-19] MEDS: PROTEIN SUPPLEMENT (PROSTAT) 30 ML LIQUID GT SCH (21:00)
[2019-08-20] MEDS: POLYVINYL ALCOHOL OPHT DROPS 15 ML BOTTLE EACHEYE SCH ×6 (01:00→20:40)
[2019-08-20] MEDS: IPRATROPIUM BROMIDE 0.5 MG/2.5 ML NEBU NEB SCH ×4 (01:04→20:15)
[2019-08-20] MEDS: ALBUTEROL SULFATE 2.5 MG/3 ML NEBU NEB SCH ×4 (01:04→20:15)
[2019-08-20] MEDS: CARBIDOPA/LEVODOPA 25-100MG TABLET GT SCH ×3 (06:21→21:16)
[2019-08-20] MEDS: FAMOTIDINE 20 MG TABLET GT SCH (06:21)
[2019-08-20] MEDS: LEVOTHYROXINE SODIUM 50 MCG TABLET GT SCH (06:21)
[2019-08-20 07:52] VITALS: BP 126/80
[2019-08-20] MEDS: CALCIUM CARB/VITAMIN D 600-400 MG TABLET GT SCH ×2 (08:04→20:40)
[2019-08-20] MEDS: [UNRECOGNIZED DRUG - OTHER] GT SCH (08:04)
[2019-08-20] MEDS: [UNRECOGNIZED DRUG - OTHER] GT SCH (08:04)
[2019-08-20] MEDS: ENOXAPARIN SODIUM 30 MG/0.3 ML DISP.SYRIN SUBCUT SCH (08:05)
[2019-08-20] MEDS: COD LIVER OIL/ZINC OXIDE OINT 113 GM TUBE TP SCH ×2 (08:05→20:40)
[2019-08-20] MEDS: NYSTATIN/TRIAMCINOLONE CREAM 15 GM TUBE TOP SCH ×2 (08:05→20:40)
[2019-08-20] MEDS: HYDROGEN PEROXIDE 3% 118 ML BOTTLE TP SCH ×2 (09:00→21:00)
[2019-08-20 19:56] VITALS: BP 150/66
[2019-08-20] MEDS: [UNRECOGNIZED DRUG - OTHER] GT SCH (20:40)
[2019-08-20] MEDS: PROTEIN SUPPLEMENT (PROSTAT) 30 ML LIQUID GT SCH (20:40)
[2019-08-20] MEDS: MINERAL OIL/PETROLAT OPHT OINT 3.5 GM TUBE EACHEYE SCH (21:16)
[2019-08-21] MEDS: POLYVINYL ALCOHOL OPHT DROPS 15 ML BOTTLE EACHEYE SCH ×6 (00:20→20:32)
[2019-08-21] MEDS: OSMOLITE 1.2 CAL 1,000 ML LIQUID GT PRN ×2 (01:27→21:48)
[2019-08-21] MEDS: ALBUTEROL SULFATE 2.5 MG/3 ML NEBU NEB SCH ×4 (01:44→19:19)
[2019-08-21] MEDS: IPRATROPIUM BROMIDE 0.5 MG/2.5 ML NEBU NEB SCH ×4 (01:44→19:19)
[2019-08-21] MEDS: LEVOTHYROXINE SODIUM 50 MCG TABLET GT SCH (05:37)
[2019-08-21] MEDS: FAMOTIDINE 20 MG TABLET GT SCH (05:37)
[2019-08-21] MEDS: CARBIDOPA/LEVODOPA 25-100MG TABLET GT SCH ×3 (05:37→21:13)
[2019-08-21 07:51] VITALS: BP 110/59
[2019-08-21] MEDS: CALCIUM CARB/VITAMIN D 600-400 MG TABLET GT SCH ×2 (08:23→20:32)
[2019-08-21] MEDS: [UNRECOGNIZED DRUG - OTHER] GT SCH (08:23)
[2019-08-21] MEDS: [UNRECOGNIZED DRUG - OTHER] GT SCH (08:23)
[2019-08-21] MEDS: NYSTATIN/TRIAMCINOLONE CREAM 15 GM TUBE TOP SCH ×2 (08:24→20:32)
[2019-08-21] MEDS: ENOXAPARIN SODIUM 30 MG/0.3 ML DISP.SYRIN SUBCUT SCH (08:24)
[2019-08-21] MEDS: COD LIVER OIL/ZINC OXIDE OINT 113 GM TUBE TP SCH ×2 (08:25→20:32)
[2019-08-21] MEDS: HYDROGEN PEROXIDE 3% 118 ML BOTTLE TP SCH ×2 (09:20→21:16)
[2019-08-21 20:15] VITALS: BP 121/59
[2019-08-21] MEDS: [UNRECOGNIZED DRUG - OTHER] GT SCH (20:32)
[2019-08-21] MEDS: PROTEIN SUPPLEMENT (PROSTAT) 30 ML LIQUID GT SCH (20:32)
[2019-08-21] MEDS: MINERAL OIL/PETROLAT OPHT OINT 3.5 GM TUBE EACHEYE SCH (21:13)
[2019-08-22] MEDS: ALBUTEROL SULFATE 2.5 MG/3 ML NEBU NEB SCH ×4 (00:54→20:41)
[2019-08-22] MEDS: IPRATROPIUM BROMIDE 0.5 MG/2.5 ML NEBU NEB SCH ×4 (00:54→20:41)
[2019-08-22] MEDS: POLYVINYL ALCOHOL OPHT DROPS 15 ML BOTTLE EACHEYE SCH ×6 (01:09→20:27)
[2019-08-22] MEDS: CARBIDOPA/LEVODOPA 25-100MG TABLET GT SCH ×3 (05:35→21:17)
[2019-08-22] MEDS: FAMOTIDINE 20 MG TABLET GT SCH (05:35)
[2019-08-22] MEDS: LEVOTHYROXINE SODIUM 50 MCG TABLET GT SCH (05:35)
[2019-08-22 07:36] VITALS: BP 136/62
[2019-08-22] MEDS: CALCIUM CARB/VITAMIN D 600-400 MG TABLET GT SCH ×2 (09:03→20:27)
[2019-08-22] MEDS: [UNRECOGNIZED DRUG - OTHER] GT SCH (09:04)
[2019-08-22] MEDS: [UNRECOGNIZED DRUG - OTHER] GT SCH (09:04)
[2019-08-22] MEDS: COD LIVER OIL/ZINC OXIDE OINT 113 GM TUBE TP SCH ×2 (09:05→20:27)
[2019-08-22] MEDS: NYSTATIN/TRIAMCINOLONE CREAM 15 GM TUBE TOP SCH ×2 (09:05→20:27)
[2019-08-22] MEDS: ENOXAPARIN SODIUM 30 MG/0.3 ML DISP.SYRIN SUBCUT SCH (09:05)
[2019-08-22] MEDS: HYDROGEN PEROXIDE 3% 118 ML BOTTLE TP SCH ×2 (09:29→21:30)
[2019-08-22] MEDS: PROTEIN SUPPLEMENT (PROSTAT) 30 ML LIQUID GT SCH (20:27)
[2019-08-22] MEDS: [UNRECOGNIZED DRUG - OTHER] GT SCH (20:27)
[2019-08-22 20:29] VITALS: BP 130/52
[2019-08-22] MEDS: MINERAL OIL/PETROLAT OPHT OINT 3.5 GM TUBE EACHEYE SCH (21:16)
[2019-08-22] MEDS: OSMOLITE 1.2 CAL 1,000 ML LIQUID GT PRN (22:45)
[2019-08-23] MEDS: POLYVINYL ALCOHOL OPHT DROPS 15 ML BOTTLE EACHEYE SCH ×6 (00:07→21:04)
[2019-08-23] MEDS: IPRATROPIUM BROMIDE 0.5 MG/2.5 ML NEBU NEB SCH ×4 (01:07→19:12)
[2019-08-23] MEDS: ALBUTEROL SULFATE 2.5 MG/3 ML NEBU NEB SCH ×4 (01:07→19:12)
[2019-08-23] MEDS: CARBIDOPA/LEVODOPA 25-100MG TABLET GT SCH ×3 (05:31→21:07)
[2019-08-23] MEDS: FAMOTIDINE 20 MG TABLET GT SCH (05:31)
[2019-08-23] MEDS: LEVOTHYROXINE SODIUM 50 MCG TABLET GT SCH (05:31)
[2019-08-23 07:29] VITALS: BP 130/56
[2019-08-23] MEDS: CALCIUM CARB/VITAMIN D 600-400 MG TABLET GT SCH ×2 (08:34→21:05)
[2019-08-23] MEDS: [UNRECOGNIZED DRUG - OTHER] GT SCH (08:35)
[2019-08-23] MEDS: [UNRECOGNIZED DRUG - OTHER] GT SCH (08:35)
[2019-08-23] MEDS: NYSTATIN/TRIAMCINOLONE CREAM 15 GM TUBE TOP SCH ×2 (08:37→21:06)
[2019-08-23] MEDS: COD LIVER OIL/ZINC OXIDE OINT 113 GM TUBE TP SCH ×2 (08:37→21:06)
[2019-08-23] MEDS: ENOXAPARIN SODIUM 30 MG/0.3 ML DISP.SYRIN SUBCUT SCH (08:37)
[2019-08-23] MEDS: HYDROGEN PEROXIDE 3% 118 ML BOTTLE TP SCH ×2 (09:30→20:57)
[2019-08-23 20:13] VITALS: BP 137/63
[2019-08-23] MEDS: MINERAL OIL/PETROLAT OPHT OINT 3.5 GM TUBE EACHEYE SCH (21:05)
[2019-08-23] MEDS: [UNRECOGNIZED DRUG - OTHER] GT SCH (21:06)
[2019-08-23] MEDS: PROTEIN SUPPLEMENT (PROSTAT) 30 ML LIQUID GT SCH (21:06)
[2019-08-23] MEDS: OSMOLITE 1.2 CAL 1,000 ML LIQUID GT PRN (23:40)
[2019-08-24] MEDS: IPRATROPIUM BROMIDE 0.5 MG/2.5 ML NEBU NEB SCH ×4 (00:39→19:22)
[2019-08-24] MEDS: ALBUTEROL SULFATE 2.5 MG/3 ML NEBU NEB SCH ×4 (00:39→19:22)
[2019-08-24] MEDS: POLYVINYL ALCOHOL OPHT DROPS 15 ML BOTTLE EACHEYE SCH ×6 (01:21→20:49)
[2019-08-24] MEDS: LEVOTHYROXINE SODIUM 50 MCG TABLET GT SCH (05:46)
[2019-08-24] MEDS: CARBIDOPA/LEVODOPA 25-100MG TABLET GT SCH ×3 (05:46→21:07)
[2019-08-24] MEDS: FAMOTIDINE 20 MG TABLET GT SCH (05:47)
[2019-08-24 07:47] VITALS: BP 130/48
[2019-08-24] MEDS: HYDROGEN PEROXIDE 3% 118 ML BOTTLE TP SCH ×2 (08:21→20:59)
[2019-08-24] MEDS: ENOXAPARIN SODIUM 30 MG/0.3 ML DISP.SYRIN SUBCUT SCH (08:49)
[2019-08-24] MEDS: CALCIUM CARB/VITAMIN D 600-400 MG TABLET GT SCH ×2 (08:49→20:49)
[2019-08-24] MEDS: [UNRECOGNIZED DRUG - OTHER] GT SCH (08:50)
[2019-08-24] MEDS: [UNRECOGNIZED DRUG - OTHER] GT SCH (08:50)
[2019-08-24] MEDS: NYSTATIN/TRIAMCINOLONE CREAM 15 GM TUBE TOP SCH ×2 (08:51→20:49)
[2019-08-24] MEDS: COD LIVER OIL/ZINC OXIDE OINT 113 GM TUBE TP SCH ×2 (09:18→20:50)
[2019-08-24] MEDS: diphenhydrAMINE 25 MG/10 ML UDC GT PRN (17:24)
[2019-08-24 19:55] VITALS: BP 131/59
[2019-08-24] MEDS: [UNRECOGNIZED DRUG - OTHER] GT SCH (20:49)
[2019-08-24] MEDS: MINERAL OIL/PETROLAT OPHT OINT 3.5 GM TUBE EACHEYE SCH (20:49)
[2019-08-24] MEDS: PROTEIN SUPPLEMENT (PROSTAT) 30 ML LIQUID GT SCH (20:49)
[2019-08-25] MEDS: OSMOLITE 1.2 CAL 1,000 ML LIQUID GT PRN (01:00)
[2019-08-25] MEDS: IPRATROPIUM BROMIDE 0.5 MG/2.5 ML NEBU NEB SCH ×4 (01:45→20:10)
[2019-08-25] MEDS: ALBUTEROL SULFATE 2.5 MG/3 ML NEBU NEB SCH ×4 (01:45→20:10)
[2019-08-25] MEDS: POLYVINYL ALCOHOL OPHT DROPS 15 ML BOTTLE EACHEYE SCH ×6 (01:58→20:55)
[2019-08-25] MEDS: CARBIDOPA/LEVODOPA 25-100MG TABLET GT SCH ×3 (06:11→21:02)
[2019-08-25] MEDS: FAMOTIDINE 20 MG TABLET GT SCH (06:11)
[2019-08-25] MEDS: LEVOTHYROXINE SODIUM 50 MCG TABLET GT SCH (06:11)
[2019-08-25] MEDS: ALENDRONATE GT SCH (06:11)
[2019-08-25 07:53] VITALS: BP 128/65
[2019-08-25] MEDS: CALCIUM CARB/VITAMIN D 600-400 MG TABLET GT SCH ×2 (08:54→20:55)
[2019-08-25] MEDS: ENOXAPARIN SODIUM 30 MG/0.3 ML DISP.SYRIN SUBCUT SCH (08:54)
[2019-08-25] MEDS: [UNRECOGNIZED DRUG - OTHER] GT SCH (08:56)
[2019-08-25] MEDS: NYSTATIN/TRIAMCINOLONE CREAM 15 GM TUBE TOP SCH ×2 (08:56→20:55)
[2019-08-25] MEDS: COD LIVER OIL/ZINC OXIDE OINT 113 GM TUBE TP SCH ×2 (08:56→20:55)
[2019-08-25] MEDS: [UNRECOGNIZED DRUG - OTHER] GT SCH (08:56)
[2019-08-25] MEDS: HYDROGEN PEROXIDE 3% 118 ML BOTTLE TP SCH ×2 (09:20→21:16)
[2019-08-25 20:00] VITALS: BP 127/63
[2019-08-25] MEDS: [UNRECOGNIZED DRUG - OTHER] GT SCH (20:55)
[2019-08-25] MEDS: PROTEIN SUPPLEMENT (PROSTAT) 30 ML LIQUID GT SCH (20:55)
[2019-08-25] MEDS: MINERAL OIL/PETROLAT OPHT OINT 3.5 GM TUBE EACHEYE SCH (20:55)
[2019-08-25] MEDS: diphenhydrAMINE 25 MG/10 ML UDC GT PRN (21:02)
[2019-08-25] MEDS: diphenhydrAMINE 1% CREAM 28.3 GM TUBE TP PRN (21:02)
[2019-08-26] MEDS: OSMOLITE 1.2 CAL 1,000 ML LIQUID GT PRN (01:00)
[2019-08-26] MEDS: ALBUTEROL SULFATE 2.5 MG/3 ML NEBU NEB SCH ×4 (01:03→19:07)
[2019-08-26] MEDS: IPRATROPIUM BROMIDE 0.5 MG/2.5 ML NEBU NEB SCH ×4 (01:03→19:07)
[2019-08-26] MEDS: POLYVINYL ALCOHOL OPHT DROPS 15 ML BOTTLE EACHEYE SCH ×6 (01:23→21:06)
[2019-08-26] MEDS: CARBIDOPA/LEVODOPA 25-100MG TABLET GT SCH ×3 (06:52→21:07)
[2019-08-26] MEDS: FAMOTIDINE 20 MG TABLET GT SCH (06:52)
[2019-08-26] MEDS: LEVOTHYROXINE SODIUM 50 MCG TABLET GT SCH (06:52)
[2019-08-26 08:00] VITALS: BP 108/57
[2019-08-26] MEDS: CALCIUM CARB/VITAMIN D 600-400 MG TABLET GT SCH ×2 (08:49→21:06)
[2019-08-26] MEDS: [UNRECOGNIZED DRUG - OTHER] GT SCH (08:50)
[2019-08-26] MEDS: [UNRECOGNIZED DRUG - OTHER] GT SCH (08:50)
[2019-08-26] MEDS: COD LIVER OIL/ZINC OXIDE OINT 113 GM TUBE TP SCH ×2 (08:51→21:07)
[2019-08-26] MEDS: NYSTATIN/TRIAMCINOLONE CREAM 15 GM TUBE TOP SCH ×2 (08:51→21:07)
[2019-08-26] MEDS: ENOXAPARIN SODIUM 30 MG/0.3 ML DISP.SYRIN SUBCUT SCH (08:52)
[2019-08-26] MEDS: HYDROGEN PEROXIDE 3% 118 ML BOTTLE TP SCH ×2 (09:00→21:00)
[2019-08-26 20:00] VITALS: BP 119/61
[2019-08-26] MEDS: MINERAL OIL/PETROLAT OPHT OINT 3.5 GM TUBE EACHEYE SCH (21:06)
[2019-08-26] MEDS: [UNRECOGNIZED DRUG - OTHER] GT SCH (21:07)
[2019-08-26] MEDS: PROTEIN SUPPLEMENT (PROSTAT) 30 ML LIQUID GT SCH (21:07)
[2019-08-27] MEDS: POLYVINYL ALCOHOL OPHT DROPS 15 ML BOTTLE EACHEYE SCH ×6 (01:00→21:53)
[2019-08-27] MEDS: IPRATROPIUM BROMIDE 0.5 MG/2.5 ML NEBU NEB SCH ×4 (01:04→19:10)
[2019-08-27] MEDS: ALBUTEROL SULFATE 2.5 MG/3 ML NEBU NEB SCH ×4 (01:04→19:10)
[2019-08-27] MEDS: OSMOLITE 1.2 CAL 1,000 ML LIQUID GT PRN (02:00)
[2019-08-27] MEDS: CARBIDOPA/LEVODOPA 25-100MG TABLET GT SCH ×3 (05:51→21:54)
[2019-08-27] MEDS: LEVOTHYROXINE SODIUM 50 MCG TABLET GT SCH (05:51)
[2019-08-27] MEDS: FAMOTIDINE 20 MG TABLET GT SCH (05:51)
[2019-08-27 08:06] VITALS: BP 110/62
[2019-08-27] MEDS: HYDROGEN PEROXIDE 3% 118 ML BOTTLE TP SCH ×2 (08:12→21:03)
[2019-08-27] MEDS: [UNRECOGNIZED DRUG - OTHER] GT SCH (09:24)
[2019-08-27] MEDS: CALCIUM CARB/VITAMIN D 600-400 MG TABLET GT SCH ×2 (09:24→21:53)
[2019-08-27] MEDS: [UNRECOGNIZED DRUG - OTHER] GT SCH (09:24)
[2019-08-27] MEDS: ENOXAPARIN SODIUM 30 MG/0.3 ML DISP.SYRIN SUBCUT SCH (09:25)
[2019-08-27] MEDS: NYSTATIN/TRIAMCINOLONE CREAM 15 GM TUBE TOP SCH ×2 (09:25→21:53)
[2019-08-27] MEDS: COD LIVER OIL/ZINC OXIDE OINT 113 GM TUBE TP SCH ×2 (09:25→21:54)
[2019-08-27 20:00] VITALS: BP 138/63
[2019-08-27] MEDS: [UNRECOGNIZED DRUG - OTHER] GT SCH (21:53)
[2019-08-27] MEDS: PROTEIN SUPPLEMENT (PROSTAT) 30 ML LIQUID GT SCH (21:53)
[2019-08-27] MEDS: MINERAL OIL/PETROLAT OPHT OINT 3.5 GM TUBE EACHEYE SCH (21:53)
[2019-08-28] MEDS: IPRATROPIUM BROMIDE 0.5 MG/2.5 ML NEBU NEB SCH ×4 (01:14→19:33)
[2019-08-28] MEDS: ALBUTEROL SULFATE 2.5 MG/3 ML NEBU NEB SCH ×4 (01:14→19:33)
[2019-08-28] MEDS: POLYVINYL ALCOHOL OPHT DROPS 15 ML BOTTLE EACHEYE SCH ×6 (01:43→20:40)
[2019-08-28] MEDS: OSMOLITE 1.2 CAL 1,000 ML LIQUID GT PRN (01:52)
[2019-08-28] MEDS: LEVOTHYROXINE SODIUM 50 MCG TABLET GT SCH (05:53)
[2019-08-28] MEDS: CARBIDOPA/LEVODOPA 25-100MG TABLET GT SCH ×3 (05:53→21:19)
[2019-08-28] MEDS: FAMOTIDINE 20 MG TABLET GT SCH (05:54)
[2019-08-28 07:55] VITALS: BP 123/53
[2019-08-28] MEDS: HYDROGEN PEROXIDE 3% 118 ML BOTTLE TP SCH ×2 (09:00→21:40)
[2019-08-28] MEDS: CALCIUM CARB/VITAMIN D 600-400 MG TABLET GT SCH ×2 (09:45→20:40)
[2019-08-28] MEDS: [UNRECOGNIZED DRUG - OTHER] GT SCH (09:45)
[2019-08-28] MEDS: [UNRECOGNIZED DRUG - OTHER] GT SCH (09:46)
[2019-08-28] MEDS: NYSTATIN/TRIAMCINOLONE CREAM 15 GM TUBE TOP SCH (09:51)
[2019-08-28] MEDS: ENOXAPARIN SODIUM 30 MG/0.3 ML DISP.SYRIN SUBCUT SCH (09:51)
[2019-08-28] MEDS: COD LIVER OIL/ZINC OXIDE OINT 113 GM TUBE TP SCH ×2 (09:51→20:41)
[2019-08-28] MEDS: diphenhydrAMINE 25 MG/10 ML UDC GT PRN (09:53)
[2019-08-28 20:00] VITALS: BP 125/50
[2019-08-28] MEDS: MINERAL OIL/PETROLAT OPHT OINT 3.5 GM TUBE EACHEYE SCH (20:40)
[2019-08-28] MEDS: [UNRECOGNIZED DRUG - OTHER] GT SCH (20:40)
[2019-08-28] MEDS: PROTEIN SUPPLEMENT (PROSTAT) 30 ML LIQUID GT SCH (20:41)
[2019-08-29] MEDS: POLYVINYL ALCOHOL OPHT DROPS 15 ML BOTTLE EACHEYE SCH ×6 (01:00→20:38)
[2019-08-29] MEDS: ALBUTEROL SULFATE 2.5 MG/3 ML NEBU NEB SCH ×4 (01:39→19:36)
[2019-08-29] MEDS: IPRATROPIUM BROMIDE 0.5 MG/2.5 ML NEBU NEB SCH ×4 (01:39→19:36)
[2019-08-29] MEDS: OSMOLITE 1.2 CAL 1,000 ML LIQUID GT PRN ×2 (05:26→05:37)
[2019-08-29] MEDS: CARBIDOPA/LEVODOPA 25-100MG TABLET GT SCH ×3 (05:26→22:12)
[2019-08-29] MEDS: LEVOTHYROXINE SODIUM 50 MCG TABLET GT SCH (05:26)
[2019-08-29] MEDS: FAMOTIDINE 20 MG TABLET GT SCH (05:36)
[2019-08-29 07:57] VITALS: BP 133/57
[2019-08-29] MEDS: HYDROGEN PEROXIDE 3% 118 ML BOTTLE TP SCH ×2 (09:00→21:25)
[2019-08-29] MEDS: [UNRECOGNIZED DRUG - OTHER] GT SCH (09:05)
[2019-08-29] MEDS: CALCIUM CARB/VITAMIN D 600-400 MG TABLET GT SCH ×2 (09:05→20:39)
[2019-08-29] MEDS: [UNRECOGNIZED DRUG - OTHER] GT SCH (09:05)
[2019-08-29] MEDS: COD LIVER OIL/ZINC OXIDE OINT 113 GM TUBE TP SCH ×2 (09:05→20:39)
[2019-08-29] MEDS: ENOXAPARIN SODIUM 30 MG/0.3 ML DISP.SYRIN SUBCUT SCH (09:06)
[2019-08-29 19:58] VITALS: BP 118/55
[2019-08-29] MEDS: PROTEIN SUPPLEMENT (PROSTAT) 30 ML LIQUID GT SCH (20:39)
[2019-08-29] MEDS: [UNRECOGNIZED DRUG - OTHER] GT SCH (20:39)
[2019-08-29] MEDS: MINERAL OIL/PETROLAT OPHT OINT 3.5 GM TUBE EACHEYE SCH (20:39)
[2019-08-30] MEDS: ALBUTEROL SULFATE 2.5 MG/3 ML NEBU NEB SCH ×4 (01:41→19:36)
[2019-08-30] MEDS: IPRATROPIUM BROMIDE 0.5 MG/2.5 ML NEBU NEB SCH ×4 (01:41→19:36)
[2019-08-30] MEDS: POLYVINYL ALCOHOL OPHT DROPS 15 ML BOTTLE EACHEYE SCH ×6 (01:54→20:33)
[2019-08-30] MEDS: CARBIDOPA/LEVODOPA 25-100MG TABLET GT SCH ×3 (06:10→22:29)
[2019-08-30] MEDS: FAMOTIDINE 20 MG TABLET GT SCH (06:11)
[2019-08-30] MEDS: LEVOTHYROXINE SODIUM 50 MCG TABLET GT SCH (06:11)
[2019-08-30] MEDS: OSMOLITE 1.2 CAL 1,000 ML LIQUID GT PRN (07:00)
[2019-08-30 07:43] VITALS: BP 137/62
[2019-08-30 07:55] VITALS: BP 137/62
[2019-08-30] MEDS: HYDROGEN PEROXIDE 3% 118 ML BOTTLE TP SCH ×2 (08:29→21:37)
[2019-08-30] MEDS: CALCIUM CARB/VITAMIN D 600-400 MG TABLET GT SCH ×2 (09:00→20:33)
[2019-08-30] MEDS: ENOXAPARIN SODIUM 30 MG/0.3 ML DISP.SYRIN SUBCUT SCH (09:00)
[2019-08-30] MEDS: [UNRECOGNIZED DRUG - OTHER] GT SCH (09:00)
[2019-08-30] MEDS: [UNRECOGNIZED DRUG - OTHER] GT SCH (09:00)
[2019-08-30] MEDS: COD LIVER OIL/ZINC OXIDE OINT 113 GM TUBE TP SCH ×2 (09:00→20:33)
[2019-08-30] MEDS: [UNRECOGNIZED DRUG - OTHER] GT SCH (20:33)
[2019-08-30] MEDS: MINERAL OIL/PETROLAT OPHT OINT 3.5 GM TUBE EACHEYE SCH (20:33)
[2019-08-30] MEDS: PROTEIN SUPPLEMENT (PROSTAT) 30 ML LIQUID GT SCH (20:33)
[2019-08-30 21:26] VITALS: BP 128/62
[2019-08-31] MEDS: POLYVINYL ALCOHOL OPHT DROPS 15 ML BOTTLE EACHEYE SCH ×6 (01:12→21:34)
[2019-08-31] MEDS: IPRATROPIUM BROMIDE 0.5 MG/2.5 ML NEBU NEB SCH ×4 (01:26→19:16)
[2019-08-31] MEDS: ALBUTEROL SULFATE 2.5 MG/3 ML NEBU NEB SCH ×4 (01:26→19:16)
[2019-08-31] MEDS: CARBIDOPA/LEVODOPA 25-100MG TABLET GT SCH ×3 (05:11→21:37)
[2019-08-31] MEDS: LEVOTHYROXINE SODIUM 50 MCG TABLET GT SCH (05:11)
[2019-08-31] MEDS: FAMOTIDINE 20 MG TABLET GT SCH (05:47)
[2019-08-31] MEDS: OSMOLITE 1.2 CAL 1,000 ML LIQUID GT PRN (07:00)
[2019-08-31] MEDS: [UNRECOGNIZED DRUG - OTHER] GT SCH (09:21)
[2019-08-31] MEDS: CALCIUM CARB/VITAMIN D 600-400 MG TABLET GT SCH ×2 (09:21→21:34)
[2019-08-31] MEDS: COD LIVER OIL/ZINC OXIDE OINT 113 GM TUBE TP SCH ×2 (09:22→21:37)
[2019-08-31] MEDS: [UNRECOGNIZED DRUG - OTHER] GT SCH (09:22)
[2019-08-31] MEDS: ENOXAPARIN SODIUM 30 MG/0.3 ML DISP.SYRIN SUBCUT SCH (09:23)
[2019-08-31] MEDS: HYDROGEN PEROXIDE 3% 118 ML BOTTLE TP SCH ×2 (09:54→21:22)
--- NOTE | 2019-08-31 12:00 | NUR ---
SEEN BY DANNIE Bailey AND WITH NNO.
[2019-08-31 20:08] VITALS: BP 123/60
[2019-08-31] MEDS: MINERAL OIL/PETROLAT OPHT OINT 3.5 GM TUBE EACHEYE SCH (21:34)
[2019-08-31] MEDS: [UNRECOGNIZED DRUG - OTHER] GT SCH (21:36)
[2019-08-31] MEDS: PROTEIN SUPPLEMENT (PROSTAT) 30 ML LIQUID GT SCH (21:36)
[2019-09-01] MEDS: IPRATROPIUM BROMIDE 0.5 MG/2.5 ML NEBU NEB SCH ×4 (00:41→19:28)
[2019-09-01] MEDS: ALBUTEROL SULFATE 2.5 MG/3 ML NEBU NEB SCH ×4 (00:41→19:28)
[2019-09-01] MEDS: POLYVINYL ALCOHOL OPHT DROPS 15 ML BOTTLE EACHEYE SCH ×6 (01:00→20:27)
[2019-09-01] MEDS: CARBIDOPA/LEVODOPA 25-100MG TABLET GT SCH ×3 (05:32→22:49)
[2019-09-01] MEDS: LEVOTHYROXINE SODIUM 50 MCG TABLET GT SCH (05:32)
[2019-09-01] MEDS: FAMOTIDINE 20 MG TABLET GT SCH (05:32)
[2019-09-01] MEDS: ALENDRONATE GT SCH (05:32)
[2019-09-01 07:48] VITALS: BP 113/58
[2019-09-01] MEDS: HYDROGEN PEROXIDE 3% 118 ML BOTTLE TP SCH ×2 (09:00→21:20)
[2019-09-01] MEDS: [UNRECOGNIZED DRUG - OTHER] GT SCH (09:37)
[2019-09-01] MEDS: [UNRECOGNIZED DRUG - OTHER] GT SCH (09:37)
[2019-09-01] MEDS: CALCIUM CARB/VITAMIN D 600-400 MG TABLET GT SCH ×2 (09:37→20:27)
[2019-09-01] MEDS: ENOXAPARIN SODIUM 30 MG/0.3 ML DISP.SYRIN SUBCUT SCH (09:38)
[2019-09-01] MEDS: COD LIVER OIL/ZINC OXIDE OINT 113 GM TUBE TP SCH ×2 (09:38→20:27)
--- NOTE | 2019-09-01 15:21 | NUR ---
MARINO sent patient's daughter Kimberlee and son Adalberto an email, letting them know that the next IDT meeting for the patient has been scheduled for 09/07/2019 at 11am. In this email, MARINO asked Kimberlee and Cosmo to respond to this SW and let her know if either one of them would like to participate in the IDT meeting via speaker phone.
[2019-09-01 20:04] VITALS: BP 138/73
[2019-09-01] MEDS: PROTEIN SUPPLEMENT (PROSTAT) 30 ML LIQUID GT SCH (20:27)
[2019-09-01] MEDS: MINERAL OIL/PETROLAT OPHT OINT 3.5 GM TUBE EACHEYE SCH (20:27)
[2019-09-01] MEDS: [UNRECOGNIZED DRUG - OTHER] GT SCH (20:27)
[2019-09-02] MEDS: IPRATROPIUM BROMIDE 0.5 MG/2.5 ML NEBU NEB SCH ×4 (00:47→19:35)
[2019-09-02] MEDS: ALBUTEROL SULFATE 2.5 MG/3 ML NEBU NEB SCH ×4 (00:47→19:35)
[2019-09-02] MEDS: POLYVINYL ALCOHOL OPHT DROPS 15 ML BOTTLE EACHEYE SCH ×6 (01:00→20:47)
[2019-09-02] MEDS: LEVOTHYROXINE SODIUM 50 MCG TABLET GT SCH (06:17)
[2019-09-02] MEDS: OSMOLITE 1.2 CAL 1,000 ML LIQUID GT PRN (06:17)
[2019-09-02] MEDS: CARBIDOPA/LEVODOPA 25-100MG TABLET GT SCH ×3 (06:17→22:18)
[2019-09-02] MEDS: FAMOTIDINE 20 MG TABLET GT SCH (06:17)
[2019-09-02 07:44] VITALS: BP 125/60
[2019-09-02] MEDS: [UNRECOGNIZED DRUG - OTHER] GT SCH (08:59)
[2019-09-02] MEDS: COD LIVER OIL/ZINC OXIDE OINT 113 GM TUBE TP SCH ×2 (08:59→20:49)
[2019-09-02] MEDS: ENOXAPARIN SODIUM 30 MG/0.3 ML DISP.SYRIN SUBCUT SCH (08:59)
[2019-09-02] MEDS: CALCIUM CARB/VITAMIN D 600-400 MG TABLET GT SCH ×2 (08:59→20:48)
[2019-09-02] MEDS: [UNRECOGNIZED DRUG - OTHER] GT SCH (08:59)
[2019-09-02] MEDS: HYDROGEN PEROXIDE 3% 118 ML BOTTLE TP SCH ×2 (09:25→21:59)
--- NOTE | 2019-09-02 10:15 | NUR ---
Provided video chat to pt. and her son with no problem note.Pt clean and comfortable all needs attended and anticipated.
[2019-09-02 20:21] VITALS: BP 119/72
[2019-09-02] MEDS: [UNRECOGNIZED DRUG - OTHER] GT SCH (20:48)
[2019-09-02] MEDS: MINERAL OIL/PETROLAT OPHT OINT 3.5 GM TUBE EACHEYE SCH (20:48)
[2019-09-02] MEDS: PROTEIN SUPPLEMENT (PROSTAT) 30 ML LIQUID GT SCH (20:49)
[2019-09-03] MEDS: POLYVINYL ALCOHOL OPHT DROPS 15 ML BOTTLE EACHEYE SCH ×6 (01:06→20:56)
[2019-09-03] MEDS: IPRATROPIUM BROMIDE 0.5 MG/2.5 ML NEBU NEB SCH ×4 (01:34→19:23)
[2019-09-03] MEDS: ALBUTEROL SULFATE 2.5 MG/3 ML NEBU NEB SCH ×4 (01:34→19:23)
[2019-09-03] MEDS: LEVOTHYROXINE SODIUM 50 MCG TABLET GT SCH (05:19)
[2019-09-03] MEDS: CARBIDOPA/LEVODOPA 25-100MG TABLET GT SCH ×3 (05:19→21:06)
[2019-09-03] MEDS: FAMOTIDINE 20 MG TABLET GT SCH (05:30)
[2019-09-03 07:42] VITALS: BP 116/57
[2019-09-03] MEDS: HYDROGEN PEROXIDE 3% 118 ML BOTTLE TP SCH ×2 (09:00→21:26)
[2019-09-03] MEDS: [UNRECOGNIZED DRUG - OTHER] GT SCH (09:42)
[2019-09-03] MEDS: CALCIUM CARB/VITAMIN D 600-400 MG TABLET GT SCH ×2 (09:42→20:56)
[2019-09-03] MEDS: [UNRECOGNIZED DRUG - OTHER] GT SCH (09:43)
[2019-09-03] MEDS: COD LIVER OIL/ZINC OXIDE OINT 113 GM TUBE TP SCH ×2 (09:43→20:57)
[2019-09-03] MEDS: ENOXAPARIN SODIUM 30 MG/0.3 ML DISP.SYRIN SUBCUT SCH (09:43)
[2019-09-03] MEDS: OSMOLITE 1.2 CAL 1,000 ML LIQUID GT PRN (09:54)
[2019-09-03 20:50] VITALS: BP 120/54
[2019-09-03] MEDS: [UNRECOGNIZED DRUG - OTHER] GT SCH (20:56)
[2019-09-03] MEDS: MINERAL OIL/PETROLAT OPHT OINT 3.5 GM TUBE EACHEYE SCH (20:56)
[2019-09-03] MEDS: PROTEIN SUPPLEMENT (PROSTAT) 30 ML LIQUID GT SCH (20:57)
[2019-09-04] MEDS: POLYVINYL ALCOHOL OPHT DROPS 15 ML BOTTLE EACHEYE SCH ×6 (00:05→20:36)
[2019-09-04] MEDS: IPRATROPIUM BROMIDE 0.5 MG/2.5 ML NEBU NEB SCH ×4 (00:41→19:47)
[2019-09-04] MEDS: ALBUTEROL SULFATE 2.5 MG/3 ML NEBU NEB SCH ×4 (00:41→19:47)
[2019-09-04] MEDS: CARBIDOPA/LEVODOPA 25-100MG TABLET GT SCH ×3 (06:02→21:44)
[2019-09-04] MEDS: LEVOTHYROXINE SODIUM 50 MCG TABLET GT SCH (06:03)
[2019-09-04] MEDS: FAMOTIDINE 20 MG TABLET GT SCH (06:03)
[2019-09-04 07:47] VITALS: BP 126/60
[2019-09-04] MEDS: [UNRECOGNIZED DRUG - OTHER] GT SCH (08:19)
[2019-09-04] MEDS: CALCIUM CARB/VITAMIN D 600-400 MG TABLET GT SCH ×2 (08:19→20:36)
[2019-09-04] MEDS: [UNRECOGNIZED DRUG - OTHER] GT SCH (08:19)
[2019-09-04] MEDS: COD LIVER OIL/ZINC OXIDE OINT 113 GM TUBE TP SCH ×2 (08:20→20:36)
[2019-09-04] MEDS: ENOXAPARIN SODIUM 30 MG/0.3 ML DISP.SYRIN SUBCUT SCH (08:20)
[2019-09-04] MEDS: HYDROGEN PEROXIDE 3% 118 ML BOTTLE TP SCH ×2 (09:00→21:26)
[2019-09-04 20:17] VITALS: BP 138/67
[2019-09-04] MEDS: TRIAMCINOLONE ACET 0.1% CREAM 15 GM TUBE TP SCH (20:36)
[2019-09-04] MEDS: [UNRECOGNIZED DRUG - OTHER] GT SCH (20:36)
[2019-09-04] MEDS: PROTEIN SUPPLEMENT (PROSTAT) 30 ML LIQUID GT SCH (20:36)
[2019-09-04] MEDS: NYSTATIN CREAM 30 GM TUBE TP SCH (20:36)
[2019-09-04] MEDS: MINERAL OIL/PETROLAT OPHT OINT 3.5 GM TUBE EACHEYE SCH (20:36)
[2019-09-05] MEDS: ALBUTEROL SULFATE 2.5 MG/3 ML NEBU NEB SCH ×4 (01:16→19:09)
[2019-09-05] MEDS: IPRATROPIUM BROMIDE 0.5 MG/2.5 ML NEBU NEB SCH ×4 (01:16→19:09)
[2019-09-05] MEDS: POLYVINYL ALCOHOL OPHT DROPS 15 ML BOTTLE EACHEYE SCH ×6 (01:38→20:59)
[2019-09-05] MEDS: FAMOTIDINE 20 MG TABLET GT SCH (05:49)
[2019-09-05] MEDS: CARBIDOPA/LEVODOPA 25-100MG TABLET GT SCH ×3 (05:49→21:00)
[2019-09-05] MEDS: LEVOTHYROXINE SODIUM 50 MCG TABLET GT SCH (05:49)
[2019-09-05 07:45] VITALS: BP 133/61
[2019-09-05] MEDS: CALCIUM CARB/VITAMIN D 600-400 MG TABLET GT SCH ×2 (08:29→20:59)
[2019-09-05] MEDS: [UNRECOGNIZED DRUG - OTHER] GT SCH (08:30)
[2019-09-05] MEDS: [UNRECOGNIZED DRUG - OTHER] GT SCH (08:30)
[2019-09-05] MEDS: COD LIVER OIL/ZINC OXIDE OINT 113 GM TUBE TP SCH ×2 (08:31→21:00)
[2019-09-05] MEDS: TRIAMCINOLONE ACET 0.1% CREAM 15 GM TUBE TP SCH ×2 (08:31→21:00)
[2019-09-05] MEDS: NYSTATIN CREAM 30 GM TUBE TP SCH ×2 (08:31→21:00)
[2019-09-05] MEDS: ENOXAPARIN SODIUM 30 MG/0.3 ML DISP.SYRIN SUBCUT SCH (08:33)
[2019-09-05] MEDS: HYDROGEN PEROXIDE 3% 118 ML BOTTLE TP SCH ×2 (08:58→19:09)
[2019-09-05] MEDS: OSMOLITE 1.2 CAL 1,000 ML LIQUID GT PRN (12:59)
[2019-09-05 20:36] VITALS: BP 113/63
[2019-09-05] MEDS: MINERAL OIL/PETROLAT OPHT OINT 3.5 GM TUBE EACHEYE SCH (20:59)
[2019-09-05] MEDS: [UNRECOGNIZED DRUG - OTHER] GT SCH (21:00)
[2019-09-05] MEDS: PROTEIN SUPPLEMENT (PROSTAT) 30 ML LIQUID GT SCH (21:00)
[2019-09-06] MEDS: ALBUTEROL SULFATE 2.5 MG/3 ML NEBU NEB SCH ×4 (00:34→19:44)
[2019-09-06] MEDS: IPRATROPIUM BROMIDE 0.5 MG/2.5 ML NEBU NEB SCH ×4 (00:34→19:44)
[2019-09-06] MEDS: POLYVINYL ALCOHOL OPHT DROPS 15 ML BOTTLE EACHEYE SCH ×6 (01:13→21:11)
[2019-09-06] MEDS: LEVOTHYROXINE SODIUM 50 MCG TABLET GT SCH (06:46)
[2019-09-06] MEDS: CARBIDOPA/LEVODOPA 25-100MG TABLET GT SCH ×3 (06:46→21:12)
[2019-09-06] MEDS: FAMOTIDINE 20 MG TABLET GT SCH (06:47)
[2019-09-06] MEDS: HYDROGEN PEROXIDE 3% 118 ML BOTTLE TP SCH ×2 (07:31→21:24)
[2019-09-06 08:14] VITALS: BP 139/59
[2019-09-06] MEDS: NYSTATIN CREAM 30 GM TUBE TP SCH ×2 (08:29→21:12)
[2019-09-06] MEDS: CALCIUM CARB/VITAMIN D 600-400 MG TABLET GT SCH ×2 (08:29→21:11)
[2019-09-06] MEDS: TRIAMCINOLONE ACET 0.1% CREAM 15 GM TUBE TP SCH ×2 (08:29→21:12)
[2019-09-06] MEDS: [UNRECOGNIZED DRUG - OTHER] GT SCH (08:29)
[2019-09-06] MEDS: COD LIVER OIL/ZINC OXIDE OINT 113 GM TUBE TP SCH ×2 (08:29→21:12)
[2019-09-06] MEDS: [UNRECOGNIZED DRUG - OTHER] GT SCH (08:29)
[2019-09-06] MEDS: ENOXAPARIN SODIUM 30 MG/0.3 ML DISP.SYRIN SUBCUT SCH (08:31)
--- NOTE | 2019-09-06 16:00 | NUR ---
DSD called Kimberlee Rodas (daughter) in order to address concerns e-mailed by her. Kimberlee was pleasant and grateful for the call.
[2019-09-06 20:05] VITALS: BP 130/57
[2019-09-06] MEDS: PROTEIN SUPPLEMENT (PROSTAT) 30 ML LIQUID GT SCH (21:11)
[2019-09-06] MEDS: [UNRECOGNIZED DRUG - OTHER] GT SCH (21:11)
[2019-09-06] MEDS: MINERAL OIL/PETROLAT OPHT OINT 3.5 GM TUBE EACHEYE SCH (21:11)
[2019-09-07] MEDS: IPRATROPIUM BROMIDE 0.5 MG/2.5 ML NEBU NEB SCH ×4 (00:52→19:30)
[2019-09-07] MEDS: ALBUTEROL SULFATE 2.5 MG/3 ML NEBU NEB SCH ×4 (00:52→19:30)
[2019-09-07] MEDS: POLYVINYL ALCOHOL OPHT DROPS 15 ML BOTTLE EACHEYE SCH ×6 (01:25→21:11)
[2019-09-07] MEDS: FAMOTIDINE 20 MG TABLET GT SCH (06:05)
[2019-09-07] MEDS: CARBIDOPA/LEVODOPA 25-100MG TABLET GT SCH ×3 (06:05→21:13)
[2019-09-07] MEDS: LEVOTHYROXINE SODIUM 50 MCG TABLET GT SCH (06:05)
[2019-09-07 07:28] VITALS: BP 120/51
[2019-09-07] MEDS: [UNRECOGNIZED DRUG - OTHER] GT SCH (08:23)
[2019-09-07] MEDS: [UNRECOGNIZED DRUG - OTHER] GT SCH (08:23)
[2019-09-07] MEDS: CALCIUM CARB/VITAMIN D 600-400 MG TABLET GT SCH ×2 (08:23→21:11)
[2019-09-07] MEDS: COD LIVER OIL/ZINC OXIDE OINT 113 GM TUBE TP SCH ×2 (08:24→21:13)
[2019-09-07] MEDS: TRIAMCINOLONE ACET 0.1% CREAM 15 GM TUBE TP SCH ×2 (08:24→21:13)
[2019-09-07] MEDS: ENOXAPARIN SODIUM 30 MG/0.3 ML DISP.SYRIN SUBCUT SCH (08:24)
[2019-09-07] MEDS: NYSTATIN CREAM 30 GM TUBE TP SCH ×2 (08:24→21:13)
[2019-09-07] MEDS: HYDROGEN PEROXIDE 3% 118 ML BOTTLE TP SCH ×2 (09:35→21:23)
--- NOTE | 2019-09-07 14:10 | NUR ---
INTERDISCIPLINARY PLAN OF CARE CONFERENCE was held today. Patient's daughter Kimberlee and son Adalberto participated in the meeting through speaker phone. Dr. Yu and the Interdisciplinary Team reviewed the current plan of care in detail. RN reported on patient's medical condition and ongoing skin condition and treatment. No major changes in condition were reported. See RN IDT conference notes. See also all other disciplines IDT notes and physician's progress notes for additional details. Family's questions were addressed by the IDT team, and both daughter and son expressed understanding and agreement with the current plan of care.
--- NOTE | 2019-09-07 15:00 | NUR ---
New orders noted for pt eval for w/c positioning.
[2019-09-07 20:27] VITALS: BP 119/80
[2019-09-07] MEDS: MINERAL OIL/PETROLAT OPHT OINT 3.5 GM TUBE EACHEYE SCH (21:11)
[2019-09-07] MEDS: PROTEIN SUPPLEMENT (PROSTAT) 30 ML LIQUID GT SCH (21:12)
[2019-09-07] MEDS: [UNRECOGNIZED DRUG - OTHER] GT SCH (21:14)
[2019-09-08] MEDS: POLYVINYL ALCOHOL OPHT DROPS 15 ML BOTTLE EACHEYE SCH ×6 (01:00→21:20)
[2019-09-08] MEDS: IPRATROPIUM BROMIDE 0.5 MG/2.5 ML NEBU NEB SCH ×4 (01:13→19:13)
[2019-09-08] MEDS: ALBUTEROL SULFATE 2.5 MG/3 ML NEBU NEB SCH ×4 (01:13→19:13)
[2019-09-08] MEDS: ALENDRONATE GT SCH (05:36)
[2019-09-08] MEDS: FAMOTIDINE 20 MG TABLET GT SCH (05:37)
[2019-09-08] MEDS: LEVOTHYROXINE SODIUM 50 MCG TABLET GT SCH (05:37)
[2019-09-08] MEDS: CARBIDOPA/LEVODOPA 25-100MG TABLET GT SCH ×3 (05:37→21:21)
[2019-09-08] MEDS: HYDROGEN PEROXIDE 3% 118 ML BOTTLE TP SCH ×2 (07:11→20:53)
[2019-09-08 07:27] VITALS: BP 124/47
[2019-09-08] MEDS: CALCIUM CARB/VITAMIN D 600-400 MG TABLET GT SCH ×2 (08:10→21:20)
[2019-09-08] MEDS: [UNRECOGNIZED DRUG - OTHER] GT SCH (08:13)
[2019-09-08] MEDS: COD LIVER OIL/ZINC OXIDE OINT 113 GM TUBE TP SCH ×2 (08:13→21:20)
[2019-09-08] MEDS: [UNRECOGNIZED DRUG - OTHER] GT SCH (08:13)
[2019-09-08] MEDS: NYSTATIN CREAM 30 GM TUBE TP SCH ×2 (08:14→21:21)
[2019-09-08] MEDS: TRIAMCINOLONE ACET 0.1% CREAM 15 GM TUBE TP SCH ×2 (08:14→21:21)
[2019-09-08] MEDS: ENOXAPARIN SODIUM 30 MG/0.3 ML DISP.SYRIN SUBCUT SCH (08:15)
[2019-09-08 19:58] VITALS: BP 117/75
[2019-09-08] MEDS: MINERAL OIL/PETROLAT OPHT OINT 3.5 GM TUBE EACHEYE SCH (21:20)
[2019-09-08] MEDS: [UNRECOGNIZED DRUG - OTHER] GT SCH (21:20)
[2019-09-08] MEDS: PROTEIN SUPPLEMENT (PROSTAT) 30 ML LIQUID GT SCH (21:20)
[2019-09-09] MEDS: ALBUTEROL SULFATE 2.5 MG/3 ML NEBU NEB SCH ×4 (00:37→19:02)
[2019-09-09] MEDS: IPRATROPIUM BROMIDE 0.5 MG/2.5 ML NEBU NEB SCH ×4 (00:37→19:02)
[2019-09-09] MEDS: POLYVINYL ALCOHOL OPHT DROPS 15 ML BOTTLE EACHEYE SCH ×6 (01:00→21:19)
[2019-09-09] MEDS: LEVOTHYROXINE SODIUM 50 MCG TABLET GT SCH (05:42)
[2019-09-09] MEDS: CARBIDOPA/LEVODOPA 25-100MG TABLET GT SCH ×3 (05:42→21:20)
[2019-09-09] MEDS: FAMOTIDINE 20 MG TABLET GT SCH (05:42)
[2019-09-09] MEDS: HYDROGEN PEROXIDE 3% 118 ML BOTTLE TP SCH ×2 (07:20→19:02)
[2019-09-09 07:40] VITALS: BP 109/48
[2019-09-09] MEDS: CALCIUM CARB/VITAMIN D 600-400 MG TABLET GT SCH ×2 (09:25→21:20)
[2019-09-09] MEDS: COD LIVER OIL/ZINC OXIDE OINT 113 GM TUBE TP SCH ×2 (09:26→21:20)
[2019-09-09] MEDS: [UNRECOGNIZED DRUG - OTHER] GT SCH (09:26)
[2019-09-09] MEDS: TRIAMCINOLONE ACET 0.1% CREAM 15 GM TUBE TP SCH ×2 (09:26→21:20)
[2019-09-09] MEDS: [UNRECOGNIZED DRUG - OTHER] GT SCH (09:26)
[2019-09-09] MEDS: NYSTATIN CREAM 30 GM TUBE TP SCH ×2 (09:27→21:20)
[2019-09-09] MEDS: ENOXAPARIN SODIUM 30 MG/0.3 ML DISP.SYRIN SUBCUT SCH (09:31)
--- NOTE | 2019-09-09 18:32 | NUR ---
No significant acute changes during this shift. All due medications given as ordered and tolerated well. No s/sx of respiratory distress. Skin care rendered. No new skin condition noted. Tolerating GT feeding well. Safety measures in place. Will endorse to oncoming shift accordingly.
[2019-09-09] MEDS: OSMOLITE 1.2 CAL 1,000 ML LIQUID GT PRN (18:39)
[2019-09-09 20:00] VITALS: BP 128/57
[2019-09-09] MEDS: [UNRECOGNIZED DRUG - OTHER] GT SCH (21:20)
[2019-09-09] MEDS: PROTEIN SUPPLEMENT (PROSTAT) 30 ML LIQUID GT SCH (21:20)
[2019-09-09] MEDS: MINERAL OIL/PETROLAT OPHT OINT 3.5 GM TUBE EACHEYE SCH (21:20)
[2019-09-10] MEDS: IPRATROPIUM BROMIDE 0.5 MG/2.5 ML NEBU NEB SCH ×4 (00:35→19:15)
[2019-09-10] MEDS: ALBUTEROL SULFATE 2.5 MG/3 ML NEBU NEB SCH ×4 (00:35→19:15)
[2019-09-10] MEDS: POLYVINYL ALCOHOL OPHT DROPS 15 ML BOTTLE EACHEYE SCH ×6 (01:00→20:30)
[2019-09-10] MEDS: LEVOTHYROXINE SODIUM 50 MCG TABLET GT SCH (06:17)
[2019-09-10] MEDS: FAMOTIDINE 20 MG TABLET GT SCH (06:17)
[2019-09-10] MEDS: CARBIDOPA/LEVODOPA 25-100MG TABLET GT SCH ×3 (06:17→21:11)
[2019-09-10 07:42] VITALS: BP 128/58
[2019-09-10] MEDS: HYDROGEN PEROXIDE 3% 118 ML BOTTLE TP SCH ×2 (08:11→21:21)
[2019-09-10] MEDS: CALCIUM CARB/VITAMIN D 600-400 MG TABLET GT SCH ×2 (08:26→20:30)
[2019-09-10] MEDS: [UNRECOGNIZED DRUG - OTHER] GT SCH (08:26)
[2019-09-10] MEDS: [UNRECOGNIZED DRUG - OTHER] GT SCH (08:27)
[2019-09-10] MEDS: COD LIVER OIL/ZINC OXIDE OINT 113 GM TUBE TP SCH ×2 (08:28→20:30)
[2019-09-10] MEDS: TRIAMCINOLONE ACET 0.1% CREAM 15 GM TUBE TP SCH ×2 (08:28→20:30)
[2019-09-10] MEDS: ENOXAPARIN SODIUM 30 MG/0.3 ML DISP.SYRIN SUBCUT SCH (08:28)
[2019-09-10] MEDS: NYSTATIN CREAM 30 GM TUBE TP SCH ×2 (08:28→20:30)
[2019-09-10] MEDS: OSMOLITE 1.2 CAL 1,000 ML LIQUID GT PRN (17:19)
[2019-09-10 20:00] VITALS: BP 119/59
[2019-09-10] MEDS: [UNRECOGNIZED DRUG - OTHER] GT SCH (20:30)
[2019-09-10] MEDS: PROTEIN SUPPLEMENT (PROSTAT) 30 ML LIQUID GT SCH (20:30)
[2019-09-10] MEDS: MINERAL OIL/PETROLAT OPHT OINT 3.5 GM TUBE EACHEYE SCH (21:11)
[2019-09-11] MEDS: ALBUTEROL SULFATE 2.5 MG/3 ML NEBU NEB SCH ×4 (00:39→19:32)
[2019-09-11] MEDS: IPRATROPIUM BROMIDE 0.5 MG/2.5 ML NEBU NEB SCH ×4 (00:39→19:32)
[2019-09-11] MEDS: POLYVINYL ALCOHOL OPHT DROPS 15 ML BOTTLE EACHEYE SCH ×6 (01:07→20:40)
[2019-09-11] MEDS: FAMOTIDINE 20 MG TABLET GT SCH (05:38)
[2019-09-11] MEDS: CARBIDOPA/LEVODOPA 25-100MG TABLET GT SCH ×3 (05:38→21:10)
[2019-09-11] MEDS: LEVOTHYROXINE SODIUM 50 MCG TABLET GT SCH (05:38)
[2019-09-11 07:57] VITALS: BP 120/57
[2019-09-11] MEDS: HYDROGEN PEROXIDE 3% 118 ML BOTTLE TP SCH ×2 (08:15→21:13)
[2019-09-11] MEDS: CALCIUM CARB/VITAMIN D 600-400 MG TABLET GT SCH ×2 (08:35→20:40)
[2019-09-11] MEDS: [UNRECOGNIZED DRUG - OTHER] GT SCH (08:35)
[2019-09-11] MEDS: [UNRECOGNIZED DRUG - OTHER] GT SCH (08:36)
[2019-09-11] MEDS: COD LIVER OIL/ZINC OXIDE OINT 113 GM TUBE TP SCH ×2 (08:36→20:40)
[2019-09-11] MEDS: ENOXAPARIN SODIUM 30 MG/0.3 ML DISP.SYRIN SUBCUT SCH (08:36)
[2019-09-11] MEDS: TRIAMCINOLONE ACET 0.1% CREAM 15 GM TUBE TP SCH ×2 (08:36→20:40)
[2019-09-11] MEDS: NYSTATIN CREAM 30 GM TUBE TP SCH ×2 (08:37→20:40)
[2019-09-11 20:10] VITALS: BP 121/67
[2019-09-11] MEDS: [UNRECOGNIZED DRUG - OTHER] GT SCH (20:40)
[2019-09-11] MEDS: PROTEIN SUPPLEMENT (PROSTAT) 30 ML LIQUID GT SCH (20:40)
[2019-09-11] MEDS: MINERAL OIL/PETROLAT OPHT OINT 3.5 GM TUBE EACHEYE SCH (21:10)
[2019-09-12] MEDS: POLYVINYL ALCOHOL OPHT DROPS 15 ML BOTTLE EACHEYE SCH ×6 (00:17→20:34)
[2019-09-12] MEDS: ALBUTEROL SULFATE 2.5 MG/3 ML NEBU NEB SCH ×4 (01:20→19:46)
[2019-09-12] MEDS: IPRATROPIUM BROMIDE 0.5 MG/2.5 ML NEBU NEB SCH ×4 (01:20→19:46)
[2019-09-12] MEDS: CARBIDOPA/LEVODOPA 25-100MG TABLET GT SCH ×3 (05:31→21:12)
[2019-09-12] MEDS: LEVOTHYROXINE SODIUM 50 MCG TABLET GT SCH (05:31)
[2019-09-12] MEDS: FAMOTIDINE 20 MG TABLET GT SCH (05:31)
[2019-09-12] MEDS: HYDROGEN PEROXIDE 3% 118 ML BOTTLE TP SCH ×2 (07:08→21:32)
[2019-09-12 07:55] VITALS: BP 123/54
[2019-09-12] MEDS: [UNRECOGNIZED DRUG - OTHER] GT SCH (08:37)
[2019-09-12] MEDS: [UNRECOGNIZED DRUG - OTHER] GT SCH (08:37)
[2019-09-12] MEDS: CALCIUM CARB/VITAMIN D 600-400 MG TABLET GT SCH ×2 (08:37→20:34)
[2019-09-12] MEDS: TRIAMCINOLONE ACET 0.1% CREAM 15 GM TUBE TP SCH ×2 (08:39→20:34)
[2019-09-12] MEDS: ENOXAPARIN SODIUM 30 MG/0.3 ML DISP.SYRIN SUBCUT SCH (08:39)
[2019-09-12] MEDS: COD LIVER OIL/ZINC OXIDE OINT 113 GM TUBE TP SCH ×2 (08:39→20:34)
[2019-09-12] MEDS: NYSTATIN CREAM 30 GM TUBE TP SCH ×2 (08:39→20:34)
[2019-09-12 20:33] VITALS: BP 127/60
[2019-09-12] MEDS: [UNRECOGNIZED DRUG - OTHER] GT SCH (20:34)
[2019-09-12] MEDS: PROTEIN SUPPLEMENT (PROSTAT) 30 ML LIQUID GT SCH (20:34)
[2019-09-12] MEDS: MINERAL OIL/PETROLAT OPHT OINT 3.5 GM TUBE EACHEYE SCH (21:12)
[2019-09-13] MEDS: POLYVINYL ALCOHOL OPHT DROPS 15 ML BOTTLE EACHEYE SCH ×6 (00:26→21:24)
[2019-09-13] MEDS: ALBUTEROL SULFATE 2.5 MG/3 ML NEBU NEB SCH ×4 (01:07→19:46)
[2019-09-13] MEDS: IPRATROPIUM BROMIDE 0.5 MG/2.5 ML NEBU NEB SCH ×4 (01:07→19:46)
[2019-09-13] MEDS: LEVOTHYROXINE SODIUM 50 MCG TABLET GT SCH (05:30)
[2019-09-13] MEDS: CARBIDOPA/LEVODOPA 25-100MG TABLET GT SCH ×3 (05:30→21:25)
[2019-09-13] MEDS: FAMOTIDINE 20 MG TABLET GT SCH (05:30)
[2019-09-13 07:27] VITALS: BP 130/59
[2019-09-13] MEDS: [UNRECOGNIZED DRUG - OTHER] GT SCH (08:54)
[2019-09-13] MEDS: CALCIUM CARB/VITAMIN D 600-400 MG TABLET GT SCH ×2 (08:54→21:24)
[2019-09-13] MEDS: TRIAMCINOLONE ACET 0.1% CREAM 15 GM TUBE TP SCH ×2 (08:58→21:25)
[2019-09-13] MEDS: COD LIVER OIL/ZINC OXIDE OINT 113 GM TUBE TP SCH ×2 (08:58→21:25)
[2019-09-13] MEDS: ENOXAPARIN SODIUM 30 MG/0.3 ML DISP.SYRIN SUBCUT SCH (08:58)
[2019-09-13] MEDS: NYSTATIN CREAM 30 GM TUBE TP SCH ×2 (08:58→21:25)
[2019-09-13] MEDS: [UNRECOGNIZED DRUG - OTHER] GT SCH (08:59)
[2019-09-13] MEDS: HYDROGEN PEROXIDE 3% 118 ML BOTTLE TP SCH ×2 (09:06→21:34)
[2019-09-13] MEDS: OSMOLITE 1.2 CAL 1,000 ML LIQUID GT PRN (11:49)
[2019-09-13 20:21] VITALS: BP 128/60
[2019-09-13] MEDS: MINERAL OIL/PETROLAT OPHT OINT 3.5 GM TUBE EACHEYE SCH (21:24)
[2019-09-13] MEDS: [UNRECOGNIZED DRUG - OTHER] GT SCH (21:24)
[2019-09-13] MEDS: PROTEIN SUPPLEMENT (PROSTAT) 30 ML LIQUID GT SCH (21:25)
[2019-09-14] MEDS: ALBUTEROL SULFATE 2.5 MG/3 ML NEBU NEB SCH ×4 (00:55→19:18)
[2019-09-14] MEDS: IPRATROPIUM BROMIDE 0.5 MG/2.5 ML NEBU NEB SCH ×4 (00:55→19:18)
[2019-09-14] MEDS: POLYVINYL ALCOHOL OPHT DROPS 15 ML BOTTLE EACHEYE SCH ×6 (01:00→20:59)
[2019-09-14] MEDS: CARBIDOPA/LEVODOPA 25-100MG TABLET GT SCH ×3 (06:22→21:03)
[2019-09-14] MEDS: FAMOTIDINE 20 MG TABLET GT SCH (06:22)
[2019-09-14] MEDS: LEVOTHYROXINE SODIUM 50 MCG TABLET GT SCH (06:22)
[2019-09-14 07:24] VITALS: BP 129/53
[2019-09-14] MEDS: [UNRECOGNIZED DRUG - OTHER] GT SCH (08:34)
[2019-09-14] MEDS: [UNRECOGNIZED DRUG - OTHER] GT SCH (08:35)
[2019-09-14] MEDS: ENOXAPARIN SODIUM 30 MG/0.3 ML DISP.SYRIN SUBCUT SCH (08:36)
[2019-09-14] MEDS: CALCIUM CARB/VITAMIN D 600-400 MG TABLET GT SCH ×2 (08:37→21:01)
[2019-09-14] MEDS: COD LIVER OIL/ZINC OXIDE OINT 113 GM TUBE TP SCH ×2 (08:37→21:03)
[2019-09-14] MEDS: TRIAMCINOLONE ACET 0.1% CREAM 15 GM TUBE TP SCH ×2 (08:38→21:03)
[2019-09-14] MEDS: NYSTATIN CREAM 30 GM TUBE TP SCH ×2 (08:41→21:03)
[2019-09-14] MEDS: HYDROGEN PEROXIDE 3% 118 ML BOTTLE TP SCH ×2 (09:17→21:03)
[2019-09-14] MEDS: OSMOLITE 1.2 CAL 1,000 ML LIQUID GT PRN (10:38)
--- NOTE | 2019-09-14 14:10 | NUR ---
video chat done with Kimberlee patients daughter. Patient in bed not in any distress patient clean and dry.
[2019-09-14 20:39] VITALS: BP 136/58
[2019-09-14] MEDS: MINERAL OIL/PETROLAT OPHT OINT 3.5 GM TUBE EACHEYE SCH (21:01)
[2019-09-14] MEDS: PROTEIN SUPPLEMENT (PROSTAT) 30 ML LIQUID GT SCH (21:01)
[2019-09-14] MEDS: [UNRECOGNIZED DRUG - OTHER] GT SCH (21:01)
[2019-09-15] MEDS: IPRATROPIUM BROMIDE 0.5 MG/2.5 ML NEBU NEB SCH ×4 (00:49→19:19)
[2019-09-15] MEDS: ALBUTEROL SULFATE 2.5 MG/3 ML NEBU NEB SCH ×4 (00:49→19:19)
[2019-09-15] MEDS: POLYVINYL ALCOHOL OPHT DROPS 15 ML BOTTLE EACHEYE SCH ×6 (01:47→20:53)
[2019-09-15] MEDS: FAMOTIDINE 20 MG TABLET GT SCH (05:58)
[2019-09-15] MEDS: LEVOTHYROXINE SODIUM 50 MCG TABLET GT SCH (05:58)
[2019-09-15] MEDS: CARBIDOPA/LEVODOPA 25-100MG TABLET GT SCH ×3 (05:58→22:50)
[2019-09-15] MEDS: ALENDRONATE GT SCH (05:58)
[2019-09-15 07:23] VITALS: BP 121/50
[2019-09-15] MEDS: TRIAMCINOLONE ACET 0.1% CREAM 15 GM TUBE TP SCH ×2 (09:00→20:53)
[2019-09-15] MEDS: CALCIUM CARB/VITAMIN D 600-400 MG TABLET GT SCH ×2 (09:00→20:53)
[2019-09-15] MEDS: ENOXAPARIN SODIUM 30 MG/0.3 ML DISP.SYRIN SUBCUT SCH (09:00)
[2019-09-15] MEDS: [UNRECOGNIZED DRUG - OTHER] GT SCH (09:00)
[2019-09-15] MEDS: COD LIVER OIL/ZINC OXIDE OINT 113 GM TUBE TP SCH ×2 (09:00→20:53)
[2019-09-15] MEDS: NYSTATIN CREAM 30 GM TUBE TP SCH ×2 (09:00→20:53)
[2019-09-15] MEDS: [UNRECOGNIZED DRUG - OTHER] GT SCH (09:00)
[2019-09-15] MEDS: HYDROGEN PEROXIDE 3% 118 ML BOTTLE TP SCH ×2 (09:18→21:52)
[2019-09-15] MEDS: OSMOLITE 1.2 CAL 1,000 ML LIQUID GT PRN (10:27)
[2019-09-15 19:48] VITALS: BP 113/80
[2019-09-15] MEDS: [UNRECOGNIZED DRUG - OTHER] GT SCH (20:53)
[2019-09-15] MEDS: PROTEIN SUPPLEMENT (PROSTAT) 30 ML LIQUID GT SCH (20:53)
[2019-09-15] MEDS: MINERAL OIL/PETROLAT OPHT OINT 3.5 GM TUBE EACHEYE SCH (20:53)
[2019-09-16] MEDS: IPRATROPIUM BROMIDE 0.5 MG/2.5 ML NEBU NEB SCH ×4 (00:44→19:49)
[2019-09-16] MEDS: ALBUTEROL SULFATE 2.5 MG/3 ML NEBU NEB SCH ×4 (00:44→19:49)
[2019-09-16] MEDS: POLYVINYL ALCOHOL OPHT DROPS 15 ML BOTTLE EACHEYE SCH ×6 (01:00→21:09)
[2019-09-16] MEDS: diphenhydrAMINE 25 MG/10 ML UDC GT PRN (04:53)
[2019-09-16] MEDS: OSMOLITE 1.2 CAL 1,000 ML LIQUID GT PRN (05:00)
[2019-09-16] MEDS: CARBIDOPA/LEVODOPA 25-100MG TABLET GT SCH ×3 (06:02→21:10)
[2019-09-16] MEDS: FAMOTIDINE 20 MG TABLET GT SCH (06:02)
[2019-09-16] MEDS: LEVOTHYROXINE SODIUM 50 MCG TABLET GT SCH (06:02)
[2019-09-16] MEDS: HYDROGEN PEROXIDE 3% 118 ML BOTTLE TP SCH ×2 (07:29→21:30)
[2019-09-16 07:41] VITALS: BP 121/71
[2019-09-16] MEDS: CALCIUM CARB/VITAMIN D 600-400 MG TABLET GT SCH ×2 (08:09→21:10)
[2019-09-16] MEDS: [UNRECOGNIZED DRUG - OTHER] GT SCH (08:09)
[2019-09-16] MEDS: [UNRECOGNIZED DRUG - OTHER] GT SCH (08:09)
[2019-09-16] MEDS: TRIAMCINOLONE ACET 0.1% CREAM 15 GM TUBE TP SCH ×2 (08:12→21:10)
[2019-09-16] MEDS: ENOXAPARIN SODIUM 30 MG/0.3 ML DISP.SYRIN SUBCUT SCH (08:12)
[2019-09-16] MEDS: NYSTATIN CREAM 30 GM TUBE TP SCH ×2 (08:12→21:10)
[2019-09-16] MEDS: COD LIVER OIL/ZINC OXIDE OINT 113 GM TUBE TP SCH ×2 (08:12→21:10)
[2019-09-16 20:23] VITALS: BP 119/60
--- NOTE | 2019-09-16 20:27 | NUR ---
NOTIFIED RESPONSIBLE DEMOCRAT, GHADA BARON, OF COVID-19 POSSIBLE EXPOSURE AND TESTING PLAN. RESPONSIBLE DEMOCRAT VERBALIZED UNDERSTANDING.
[2019-09-16] MEDS: PROTEIN SUPPLEMENT (PROSTAT) 30 ML LIQUID GT SCH (21:10)
[2019-09-16] MEDS: [UNRECOGNIZED DRUG - OTHER] GT SCH (21:10)
[2019-09-16] MEDS: MINERAL OIL/PETROLAT OPHT OINT 3.5 GM TUBE EACHEYE SCH (21:10)
[2019-09-17] MEDS: ALBUTEROL SULFATE 2.5 MG/3 ML NEBU NEB SCH ×4 (00:43→19:13)
[2019-09-17] MEDS: IPRATROPIUM BROMIDE 0.5 MG/2.5 ML NEBU NEB SCH ×4 (00:43→19:13)
[2019-09-17] MEDS: POLYVINYL ALCOHOL OPHT DROPS 15 ML BOTTLE EACHEYE SCH ×6 (01:00→21:18)
--- NOTE | 2019-09-17 02:00 | NUR ---
New order for COVID-19 test per [facility] COVID-19 requirement.
[2019-09-17] MEDS: OSMOLITE 1.2 CAL 1,000 ML LIQUID GT PRN (03:30)
[2019-09-17] MEDS: CARBIDOPA/LEVODOPA 25-100MG TABLET GT SCH ×3 (05:36→21:19)
[2019-09-17] MEDS: LEVOTHYROXINE SODIUM 50 MCG TABLET GT SCH (05:36)
[2019-09-17] MEDS: FAMOTIDINE 20 MG TABLET GT SCH (05:37)
[2019-09-17] MEDS: HYDROGEN PEROXIDE 3% 118 ML BOTTLE TP SCH ×2 (07:07→21:10)
[2019-09-17 07:53] VITALS: BP 138/48
[2019-09-17] MEDS: COD LIVER OIL/ZINC OXIDE OINT 113 GM TUBE TP SCH ×2 (08:56→21:19)
[2019-09-17] MEDS: [UNRECOGNIZED DRUG - OTHER] GT SCH (08:56)
[2019-09-17] MEDS: ENOXAPARIN SODIUM 30 MG/0.3 ML DISP.SYRIN SUBCUT SCH (08:56)
[2019-09-17] MEDS: TRIAMCINOLONE ACET 0.1% CREAM 15 GM TUBE TP SCH ×2 (08:56→21:19)
[2019-09-17] MEDS: CALCIUM CARB/VITAMIN D 600-400 MG TABLET GT SCH ×2 (08:56→21:18)
[2019-09-17] MEDS: [UNRECOGNIZED DRUG - OTHER] GT SCH (08:56)
[2019-09-17] MEDS: NYSTATIN CREAM 30 GM TUBE TP SCH ×2 (08:57→21:19)
[2019-09-17 19:47] VITALS: BP 125/55
[2019-09-17] MEDS: MINERAL OIL/PETROLAT OPHT OINT 3.5 GM TUBE EACHEYE SCH (21:18)
[2019-09-17] MEDS: [UNRECOGNIZED DRUG - OTHER] GT SCH (21:18)
[2019-09-17] MEDS: PROTEIN SUPPLEMENT (PROSTAT) 30 ML LIQUID GT SCH (21:19)
[2019-09-18] MEDS: ALBUTEROL SULFATE 2.5 MG/3 ML NEBU NEB SCH ×4 (00:35→19:30)
[2019-09-18] MEDS: IPRATROPIUM BROMIDE 0.5 MG/2.5 ML NEBU NEB SCH ×4 (00:35→19:30)
[2019-09-18] MEDS: POLYVINYL ALCOHOL OPHT DROPS 15 ML BOTTLE EACHEYE SCH ×6 (01:40→21:17)
[2019-09-18] MEDS: OSMOLITE 1.2 CAL 1,000 ML LIQUID GT PRN (02:49)
[2019-09-18] MEDS: FAMOTIDINE 20 MG TABLET GT SCH (05:58)
[2019-09-18] MEDS: CARBIDOPA/LEVODOPA 25-100MG TABLET GT SCH ×3 (05:58→21:24)
[2019-09-18] MEDS: LEVOTHYROXINE SODIUM 50 MCG TABLET GT SCH (05:58)
[2019-09-18 07:42] VITALS: BP 136/53
[2019-09-18] MEDS: [UNRECOGNIZED DRUG - OTHER] GT SCH (08:35)
[2019-09-18] MEDS: CALCIUM CARB/VITAMIN D 600-400 MG TABLET GT SCH ×2 (08:36→21:23)
[2019-09-18] MEDS: COD LIVER OIL/ZINC OXIDE OINT 113 GM TUBE TP SCH ×2 (08:36→21:24)
[2019-09-18] MEDS: [UNRECOGNIZED DRUG - OTHER] GT SCH (08:36)
[2019-09-18] MEDS: NYSTATIN CREAM 30 GM TUBE TP SCH ×2 (08:37→21:24)
[2019-09-18] MEDS: TRIAMCINOLONE ACET 0.1% CREAM 15 GM TUBE TP SCH ×2 (08:37→21:24)
[2019-09-18] MEDS: ENOXAPARIN SODIUM 30 MG/0.3 ML DISP.SYRIN SUBCUT SCH (08:39)
[2019-09-18] MEDS: HYDROGEN PEROXIDE 3% 118 ML BOTTLE TP SCH ×2 (09:00→21:42)
[2019-09-18 20:02] VITALS: BP 106/57
[2019-09-18] MEDS: MINERAL OIL/PETROLAT OPHT OINT 3.5 GM TUBE EACHEYE SCH (21:17)
[2019-09-18] MEDS: [UNRECOGNIZED DRUG - OTHER] GT SCH (21:23)
[2019-09-18] MEDS: PROTEIN SUPPLEMENT (PROSTAT) 30 ML LIQUID GT SCH (21:23)
[2019-09-19] MEDS: OSMOLITE 1.2 CAL 1,000 ML LIQUID GT PRN (00:45)
[2019-09-19] MEDS: ALBUTEROL SULFATE 2.5 MG/3 ML NEBU NEB SCH ×4 (00:45→19:11)
[2019-09-19] MEDS: IPRATROPIUM BROMIDE 0.5 MG/2.5 ML NEBU NEB SCH ×4 (00:45→19:11)
[2019-09-19] MEDS: POLYVINYL ALCOHOL OPHT DROPS 15 ML BOTTLE EACHEYE SCH ×6 (01:00→21:17)
[2019-09-19] MEDS: FAMOTIDINE 20 MG TABLET GT SCH (05:10)
[2019-09-19] MEDS: LEVOTHYROXINE SODIUM 50 MCG TABLET GT SCH (05:10)
[2019-09-19] MEDS: CARBIDOPA/LEVODOPA 25-100MG TABLET GT SCH ×3 (05:10→21:21)
[2019-09-19 07:58] VITALS: BP 129/54
[2019-09-19] MEDS: COD LIVER OIL/ZINC OXIDE OINT 113 GM TUBE TP SCH ×2 (08:19→21:19)
[2019-09-19] MEDS: CALCIUM CARB/VITAMIN D 600-400 MG TABLET GT SCH ×2 (08:19→21:17)
[2019-09-19] MEDS: [UNRECOGNIZED DRUG - OTHER] GT SCH (08:19)
[2019-09-19] MEDS: [UNRECOGNIZED DRUG - OTHER] GT SCH (08:19)
[2019-09-19] MEDS: TRIAMCINOLONE ACET 0.1% CREAM 15 GM TUBE TP SCH ×2 (08:21→21:24)
[2019-09-19] MEDS: NYSTATIN CREAM 30 GM TUBE TP SCH ×2 (08:21→21:21)
[2019-09-19] MEDS: ENOXAPARIN SODIUM 30 MG/0.3 ML DISP.SYRIN SUBCUT SCH (08:21)
[2019-09-19] MEDS: HYDROGEN PEROXIDE 3% 118 ML BOTTLE TP SCH ×2 (09:20→21:00)
[2019-09-19 20:45] VITALS: BP 123/60
[2019-09-19] MEDS: MINERAL OIL/PETROLAT OPHT OINT 3.5 GM TUBE EACHEYE SCH (21:17)
[2019-09-19] MEDS: [UNRECOGNIZED DRUG - OTHER] GT SCH (21:18)
[2019-09-19] MEDS: PROTEIN SUPPLEMENT (PROSTAT) 30 ML LIQUID GT SCH (21:19)
[2019-09-20] MEDS: ALBUTEROL SULFATE 2.5 MG/3 ML NEBU NEB SCH ×4 (00:40→19:33)
[2019-09-20] MEDS: IPRATROPIUM BROMIDE 0.5 MG/2.5 ML NEBU NEB SCH ×4 (00:40→19:33)
[2019-09-20] MEDS: POLYVINYL ALCOHOL OPHT DROPS 15 ML BOTTLE EACHEYE SCH ×6 (01:08→20:25)
[2019-09-20] MEDS: OSMOLITE 1.2 CAL 1,000 ML LIQUID GT PRN (01:51)
[2019-09-20] MEDS: LEVOTHYROXINE SODIUM 50 MCG TABLET GT SCH (05:01)
[2019-09-20] MEDS: [UNRECOGNIZED DRUG - OTHER] GT SCH (05:01)
[2019-09-20] MEDS: CARBIDOPA/LEVODOPA 25-100MG TABLET GT SCH ×3 (05:01→21:44)
[2019-09-20] MEDS: FAMOTIDINE 20 MG TABLET GT SCH (05:49)
[2019-09-20 07:37] VITALS: BP 130/57
[2019-09-20] MEDS: CALCIUM CARB/VITAMIN D 600-400 MG TABLET GT SCH ×2 (08:53→20:25)
[2019-09-20] MEDS: [UNRECOGNIZED DRUG - OTHER] GT SCH (08:53)
[2019-09-20] MEDS: COD LIVER OIL/ZINC OXIDE OINT 113 GM TUBE TP SCH ×2 (08:53→20:27)
[2019-09-20] MEDS: NYSTATIN CREAM 30 GM TUBE TP SCH ×2 (08:55→20:28)
[2019-09-20] MEDS: TRIAMCINOLONE ACET 0.1% CREAM 15 GM TUBE TP SCH ×2 (08:55→20:27)
[2019-09-20] MEDS: ENOXAPARIN SODIUM 30 MG/0.3 ML DISP.SYRIN SUBCUT SCH (09:00)
[2019-09-20] MEDS: HYDROGEN PEROXIDE 3% 118 ML BOTTLE TP SCH ×2 (09:30→21:18)
[2019-09-20 20:11] VITALS: BP 124/57
[2019-09-20] MEDS: MINERAL OIL/PETROLAT OPHT OINT 3.5 GM TUBE EACHEYE SCH (20:25)
[2019-09-20] MEDS: PROTEIN SUPPLEMENT (PROSTAT) 30 ML LIQUID GT SCH (20:27)
[2019-09-20] MEDS: [UNRECOGNIZED DRUG - OTHER] GT SCH (20:27)
[2019-09-21] MEDS: ALBUTEROL SULFATE 2.5 MG/3 ML NEBU NEB SCH ×4 (00:44→19:33)
[2019-09-21] MEDS: POLYVINYL ALCOHOL OPHT DROPS 15 ML BOTTLE EACHEYE SCH ×6 (00:54→21:10)
[2019-09-21] MEDS: IPRATROPIUM BROMIDE 0.5 MG/2.5 ML NEBU NEB SCH ×4 (02:17→19:33)
[2019-09-21] MEDS: [UNRECOGNIZED DRUG - OTHER] GT SCH (05:30)
[2019-09-21] MEDS: FAMOTIDINE 20 MG TABLET GT SCH (05:30)
[2019-09-21] MEDS: CARBIDOPA/LEVODOPA 25-100MG TABLET GT SCH ×3 (05:30→21:12)
[2019-09-21] MEDS: OSMOLITE 1.2 CAL 1,000 ML LIQUID GT PRN (05:30)
[2019-09-21] MEDS: LEVOTHYROXINE SODIUM 50 MCG TABLET GT SCH (05:30)
[2019-09-21] MEDS: HYDROGEN PEROXIDE 3% 118 ML BOTTLE TP SCH ×2 (07:22→21:25)
[2019-09-21 07:39] VITALS: BP 137/56
[2019-09-21] MEDS: [UNRECOGNIZED DRUG - OTHER] GT SCH (08:44)
[2019-09-21] MEDS: CALCIUM CARB/VITAMIN D 600-400 MG TABLET GT SCH ×2 (08:44→21:10)
[2019-09-21] MEDS: COD LIVER OIL/ZINC OXIDE OINT 113 GM TUBE TP SCH ×2 (08:44→21:12)
[2019-09-21] MEDS: ENOXAPARIN SODIUM 30 MG/0.3 ML DISP.SYRIN SUBCUT SCH (08:44)
[2019-09-21] MEDS: NYSTATIN CREAM 30 GM TUBE TP SCH ×2 (08:45→21:12)
[2019-09-21] MEDS: TRIAMCINOLONE ACET 0.1% CREAM 15 GM TUBE TP SCH ×2 (08:45→21:12)
[2019-09-21 20:00] VITALS: BP 135/60
[2019-09-21] MEDS: [UNRECOGNIZED DRUG - OTHER] GT SCH (21:00)
[2019-09-21] MEDS: MINERAL OIL/PETROLAT OPHT OINT 3.5 GM TUBE EACHEYE SCH (21:10)
[2019-09-21] MEDS: PROTEIN SUPPLEMENT (PROSTAT) 30 ML LIQUID GT SCH (21:12)
[2019-09-22] MEDS: IPRATROPIUM BROMIDE 0.5 MG/2.5 ML NEBU NEB SCH ×4 (00:44→19:07)
[2019-09-22] MEDS: ALBUTEROL SULFATE 2.5 MG/3 ML NEBU NEB SCH ×4 (00:44→19:07)
[2019-09-22] MEDS: OSMOLITE 1.2 CAL 1,000 ML LIQUID GT PRN (01:01)
[2019-09-22] MEDS: POLYVINYL ALCOHOL OPHT DROPS 15 ML BOTTLE EACHEYE SCH ×6 (01:18→21:54)
[2019-09-22] MEDS: ALENDRONATE GT SCH (05:42)
[2019-09-22] MEDS: LEVOTHYROXINE SODIUM 50 MCG TABLET GT SCH (05:43)
[2019-09-22] MEDS: [UNRECOGNIZED DRUG - OTHER] GT SCH (05:43)
[2019-09-22] MEDS: FAMOTIDINE 20 MG TABLET GT SCH (05:43)
[2019-09-22] MEDS: CARBIDOPA/LEVODOPA 25-100MG TABLET GT SCH ×3 (05:43→21:56)
[2019-09-22 07:43] VITALS: BP 94/53
[2019-09-22] MEDS: HYDROGEN PEROXIDE 3% 118 ML BOTTLE TP SCH ×2 (09:20→19:07)
[2019-09-22] MEDS: CALCIUM CARB/VITAMIN D 600-400 MG TABLET GT SCH ×2 (09:35→21:54)
[2019-09-22] MEDS: [UNRECOGNIZED DRUG - OTHER] GT SCH (09:37)
[2019-09-22] MEDS: NYSTATIN CREAM 30 GM TUBE TP SCH ×2 (09:38→21:56)
[2019-09-22] MEDS: TRIAMCINOLONE ACET 0.1% CREAM 15 GM TUBE TP SCH ×2 (09:38→21:55)
[2019-09-22] MEDS: COD LIVER OIL/ZINC OXIDE OINT 113 GM TUBE TP SCH ×2 (09:38→21:55)
[2019-09-22] MEDS: ENOXAPARIN SODIUM 30 MG/0.3 ML DISP.SYRIN SUBCUT SCH (09:39)
--- NOTE | 2019-09-22 12:29 | NUR ---
Informed Kimberlee Cardenas's daughter about the Covid 19 results was negative ,and we have orders to repeat Covid 19 test ([facility] requirement)
--- NOTE | 2019-09-22 16:48 | NUR ---
New order for COVID-19 test per [facility] COVID-19 requirement.
--- NOTE | 2019-09-22 17:30 | NUR ---
Seen and examined by Dr Yu no new orders.
[2019-09-22 20:00] VITALS: BP 133/65
[2019-09-22] MEDS: [UNRECOGNIZED DRUG - OTHER] GT SCH (21:00)
[2019-09-22] MEDS: MINERAL OIL/PETROLAT OPHT OINT 3.5 GM TUBE EACHEYE SCH (21:54)
[2019-09-22] MEDS: PROTEIN SUPPLEMENT (PROSTAT) 30 ML LIQUID GT SCH (21:55)
[2019-09-23] MEDS: IPRATROPIUM BROMIDE 0.5 MG/2.5 ML NEBU NEB SCH ×4 (00:38→19:12)
[2019-09-23] MEDS: ALBUTEROL SULFATE 2.5 MG/3 ML NEBU NEB SCH ×4 (00:38→19:12)
[2019-09-23] MEDS: POLYVINYL ALCOHOL OPHT DROPS 15 ML BOTTLE EACHEYE SCH ×6 (01:36→20:43)
[2019-09-23] MEDS: OSMOLITE 1.2 CAL 1,000 ML LIQUID GT PRN (02:00)
[2019-09-23] MEDS: [UNRECOGNIZED DRUG - OTHER] GT SCH (05:32)
[2019-09-23] MEDS: LEVOTHYROXINE SODIUM 50 MCG TABLET GT SCH (05:32)
[2019-09-23] MEDS: CARBIDOPA/LEVODOPA 25-100MG TABLET GT SCH ×3 (05:32→21:52)
[2019-09-23] MEDS: FAMOTIDINE 20 MG TABLET GT SCH (05:32)
[2019-09-23 07:48] VITALS: BP 113/71
[2019-09-23] MEDS: [UNRECOGNIZED DRUG - OTHER] GT SCH (08:30)
[2019-09-23] MEDS: CALCIUM CARB/VITAMIN D 600-400 MG TABLET GT SCH ×2 (08:30→20:43)
[2019-09-23] MEDS: TRIAMCINOLONE ACET 0.1% CREAM 15 GM TUBE TP SCH ×2 (08:31→20:46)
[2019-09-23] MEDS: COD LIVER OIL/ZINC OXIDE OINT 113 GM TUBE TP SCH ×2 (08:31→20:44)
[2019-09-23] MEDS: HYDROGEN PEROXIDE 3% 118 ML BOTTLE TP SCH ×2 (08:31→20:45)
[2019-09-23] MEDS: NYSTATIN CREAM 30 GM TUBE TP SCH ×2 (08:32→20:47)
[2019-09-23] MEDS: ENOXAPARIN SODIUM 30 MG/0.3 ML DISP.SYRIN SUBCUT SCH (08:33)
--- NOTE | 2019-09-23 12:00 | NUR ---
GASTROSTOMY TUBE RECEIVED WITH MISSING "Y" PORTS AND SHORTER THAN MELCHOR AND VERY OLD ,BROWN COLOR,STILL IN PLACE BUT UNABLE TO CHANGE FOR A NEW ONE D/T RESISTANCE OBSERVED WHEN ATTEMPT TO BE CHANGED. DANNIE Bailey WAS AWARE AND WITH NEW ORDER CARRIED OUT FOR GI CONSULT. DR. OGDEN(G.I) WAS CALLED TO HIS CELL PHONE AND AWARE OF CONSULT.DR. SUAREZ (G.I) NOT AVAILABLE HE WAS CALLED TO HIS CELL PHONE AND STATED TO F/U WITH DR. ODGEN BECAUSE HE WAS IN [place].
--- NOTE | 2019-09-23 18:31 | NUR ---
MESSAGE LEFT RE: COVID TESTING TOMORROW TO PT;'S DTR. GHADA.
[2019-09-23 20:00] VITALS: BP_SYST 123; BP_DIAS 65; BP_DIAS 74
[2019-09-23] MEDS: MINERAL OIL/PETROLAT OPHT OINT 3.5 GM TUBE EACHEYE SCH (20:43)
[2019-09-23] MEDS: [UNRECOGNIZED DRUG - OTHER] GT SCH (20:44)
[2019-09-23] MEDS: PROTEIN SUPPLEMENT (PROSTAT) 30 ML LIQUID GT SCH (20:44)
[2019-09-24] MEDS: IPRATROPIUM BROMIDE 0.5 MG/2.5 ML NEBU NEB SCH ×4 (00:35→19:12)
[2019-09-24] MEDS: ALBUTEROL SULFATE 2.5 MG/3 ML NEBU NEB SCH ×4 (00:36→19:12)
[2019-09-24] MEDS: POLYVINYL ALCOHOL OPHT DROPS 15 ML BOTTLE EACHEYE SCH ×6 (00:44→20:49)
[2019-09-24] MEDS: OSMOLITE 1.2 CAL 1,000 ML LIQUID GT PRN (02:54)
[2019-09-24] MEDS: [UNRECOGNIZED DRUG - OTHER] GT SCH (05:24)
[2019-09-24] MEDS: LEVOTHYROXINE SODIUM 50 MCG TABLET GT SCH (05:24)
[2019-09-24] MEDS: CARBIDOPA/LEVODOPA 25-100MG TABLET GT SCH ×3 (05:24→21:08)
[2019-09-24] MEDS: FAMOTIDINE 20 MG TABLET GT SCH (05:30)
[2019-09-24] MEDS: HYDROGEN PEROXIDE 3% 118 ML BOTTLE TP SCH ×2 (07:50→21:09)
[2019-09-24 07:59] VITALS: BP 125/63
[2019-09-24] MEDS: CALCIUM CARB/VITAMIN D 600-400 MG TABLET GT SCH ×2 (08:29→20:50)
[2019-09-24] MEDS: [UNRECOGNIZED DRUG - OTHER] GT SCH (08:29)
[2019-09-24] MEDS: ENOXAPARIN SODIUM 30 MG/0.3 ML DISP.SYRIN SUBCUT SCH (08:29)
[2019-09-24] MEDS: TRIAMCINOLONE ACET 0.1% CREAM 15 GM TUBE TP SCH ×2 (08:30→20:52)
[2019-09-24] MEDS: NYSTATIN CREAM 30 GM TUBE TP SCH ×2 (08:30→20:52)
[2019-09-24] MEDS: COD LIVER OIL/ZINC OXIDE OINT 113 GM TUBE TP SCH ×2 (08:30→20:52)
--- NOTE | 2019-09-24 16:42 | NUR ---
DR. CLEMENTS (G.I) WAS CALLED [place] MESSAGE LEFT IN HIS PERSONAL CELLPHONE RE: CONSULTATION.
[2019-09-24 20:00] VITALS: BP 127/66
[2019-09-24] MEDS: MINERAL OIL/PETROLAT OPHT OINT 3.5 GM TUBE EACHEYE SCH (20:49)
[2019-09-24] MEDS: [UNRECOGNIZED DRUG - OTHER] GT SCH (20:52)
[2019-09-24] MEDS: PROTEIN SUPPLEMENT (PROSTAT) 30 ML LIQUID GT SCH (20:52)
[2019-09-25] MEDS: ALBUTEROL SULFATE 2.5 MG/3 ML NEBU NEB SCH ×4 (00:37→19:20)
[2019-09-25] MEDS: IPRATROPIUM BROMIDE 0.5 MG/2.5 ML NEBU NEB SCH ×4 (00:37→19:20)
[2019-09-25] MEDS: POLYVINYL ALCOHOL OPHT DROPS 15 ML BOTTLE EACHEYE SCH ×6 (01:28→20:41)
[2019-09-25] MEDS: OSMOLITE 1.2 CAL 1,000 ML LIQUID GT PRN ×2 (01:30→23:17)
[2019-09-25] MEDS: CARBIDOPA/LEVODOPA 25-100MG TABLET GT SCH ×3 (05:13→21:48)
[2019-09-25] MEDS: [UNRECOGNIZED DRUG - OTHER] GT SCH (05:13)
[2019-09-25] MEDS: LEVOTHYROXINE SODIUM 50 MCG TABLET GT SCH (05:13)
[2019-09-25] MEDS: FAMOTIDINE 20 MG TABLET GT SCH (06:30)
[2019-09-25 07:37] VITALS: BP 127/69
[2019-09-25] MEDS: CALCIUM CARB/VITAMIN D 600-400 MG TABLET GT SCH ×2 (08:37→20:41)
[2019-09-25] MEDS: [UNRECOGNIZED DRUG - OTHER] GT SCH (08:37)
[2019-09-25] MEDS: ENOXAPARIN SODIUM 30 MG/0.3 ML DISP.SYRIN SUBCUT SCH (08:38)
[2019-09-25] MEDS: COD LIVER OIL/ZINC OXIDE OINT 113 GM TUBE TP SCH ×2 (08:45→20:41)
[2019-09-25] MEDS: TRIAMCINOLONE ACET 0.1% CREAM 15 GM TUBE TP SCH (08:45)
[2019-09-25] MEDS: NYSTATIN CREAM 30 GM TUBE TP SCH (08:45)
[2019-09-25] MEDS: HYDROGEN PEROXIDE 3% 118 ML BOTTLE TP SCH ×2 (08:49→21:14)
[2019-09-25] MEDS: PROTEIN SUPPLEMENT (PROSTAT) 30 ML LIQUID GT SCH (20:41)
[2019-09-25] MEDS: MINERAL OIL/PETROLAT OPHT OINT 3.5 GM TUBE EACHEYE SCH (20:41)
[2019-09-25] MEDS: [UNRECOGNIZED DRUG - OTHER] GT SCH (20:41)
[2019-09-25 22:44] VITALS: BP 128/54
[2019-09-26] MEDS: IPRATROPIUM BROMIDE 0.5 MG/2.5 ML NEBU NEB SCH ×4 (00:44→19:23)
[2019-09-26] MEDS: ALBUTEROL SULFATE 2.5 MG/3 ML NEBU NEB SCH ×4 (00:44→19:24)
[2019-09-26] MEDS: POLYVINYL ALCOHOL OPHT DROPS 15 ML BOTTLE EACHEYE SCH ×6 (01:08→20:59)
[2019-09-26] MEDS: diphenhydrAMINE 25 MG/10 ML UDC GT PRN (04:06)
[2019-09-26] MEDS: [UNRECOGNIZED DRUG - OTHER] GT SCH (05:19)
[2019-09-26] MEDS: LEVOTHYROXINE SODIUM 50 MCG TABLET GT SCH (05:19)
[2019-09-26] MEDS: CARBIDOPA/LEVODOPA 25-100MG TABLET GT SCH ×3 (05:19→21:00)
[2019-09-26] MEDS: FAMOTIDINE 20 MG TABLET GT SCH (05:56)
[2019-09-26] MEDS: HYDROGEN PEROXIDE 3% 118 ML BOTTLE TP SCH ×2 (07:23→21:17)
[2019-09-26 07:49] VITALS: BP 134/62
[2019-09-26] MEDS: CALCIUM CARB/VITAMIN D 600-400 MG TABLET GT SCH ×2 (08:19→20:59)
[2019-09-26] MEDS: [UNRECOGNIZED DRUG - OTHER] GT SCH (08:20)
[2019-09-26] MEDS: COD LIVER OIL/ZINC OXIDE OINT 113 GM TUBE TP SCH ×2 (08:23→20:59)
[2019-09-26] MEDS: ENOXAPARIN SODIUM 30 MG/0.3 ML DISP.SYRIN SUBCUT SCH (08:23)
--- NOTE | 2019-09-26 16:48 | NUR ---
PT'S DTR. GHADA WAS NOTIFIED PT. WAS NEGATIVE FOR COVID 19 TEST,AND SHE REQUESTED THATDOMINICK MurphyI COMES AND EVALUATE PT'S GT, TO PLS. LET HIM KNOW THAT SHE WANTS TO TALK TO HER.
[2019-09-26] MEDS: OSMOLITE 1.2 CAL 1,000 ML LIQUID GT PRN (18:26)
[2019-09-26 19:51] VITALS: BP 132/67
[2019-09-26] MEDS: MINERAL OIL/PETROLAT OPHT OINT 3.5 GM TUBE EACHEYE SCH (20:59)
[2019-09-26] MEDS: [UNRECOGNIZED DRUG - OTHER] GT SCH (20:59)
[2019-09-26] MEDS: PROTEIN SUPPLEMENT (PROSTAT) 30 ML LIQUID GT SCH (20:59)
[2019-09-27] MEDS: ALBUTEROL SULFATE 2.5 MG/3 ML NEBU NEB SCH ×4 (00:45→19:20)
[2019-09-27] MEDS: IPRATROPIUM BROMIDE 0.5 MG/2.5 ML NEBU NEB SCH ×4 (00:45→19:20)
[2019-09-27] MEDS: POLYVINYL ALCOHOL OPHT DROPS 15 ML BOTTLE EACHEYE SCH ×6 (01:04→21:18)
[2019-09-27] MEDS: FAMOTIDINE 20 MG TABLET GT SCH (05:52)
[2019-09-27] MEDS: [UNRECOGNIZED DRUG - OTHER] GT SCH (05:52)
[2019-09-27] MEDS: CARBIDOPA/LEVODOPA 25-100MG TABLET GT SCH ×3 (05:52→21:19)
[2019-09-27] MEDS: LEVOTHYROXINE SODIUM 50 MCG TABLET GT SCH (05:52)
[2019-09-27 07:35] VITALS: BP 118/62
[2019-09-27] MEDS: HYDROGEN PEROXIDE 3% 118 ML BOTTLE TP SCH ×2 (08:37→21:36)
[2019-09-27] MEDS: [UNRECOGNIZED DRUG - OTHER] GT SCH (08:46)
[2019-09-27] MEDS: CALCIUM CARB/VITAMIN D 600-400 MG TABLET GT SCH ×2 (08:46→21:18)
[2019-09-27] MEDS: ENOXAPARIN SODIUM 30 MG/0.3 ML DISP.SYRIN SUBCUT SCH (08:48)
[2019-09-27] MEDS: COD LIVER OIL/ZINC OXIDE OINT 113 GM TUBE TP SCH ×2 (08:48→21:19)
--- NOTE | 2019-09-27 10:57 | NUR ---
DR. VIRAMONTES PAGED TO F/U CONSULTATION TO REBECCA BALLARD DETERIORATED GT.
--- NOTE | 2019-09-27 12:00 | NUR ---
PT. WAS SEEN BY DANNIE FABIAN WITH NNO.
[2019-09-27 20:46] VITALS: BP 121/55
[2019-09-27] MEDS: [UNRECOGNIZED DRUG - OTHER] GT SCH (21:18)
[2019-09-27] MEDS: PROTEIN SUPPLEMENT (PROSTAT) 30 ML LIQUID GT SCH (21:18)
[2019-09-27] MEDS: MINERAL OIL/PETROLAT OPHT OINT 3.5 GM TUBE EACHEYE SCH (21:18)
[2019-09-28] MEDS: IPRATROPIUM BROMIDE 0.5 MG/2.5 ML NEBU NEB SCH ×4 (00:45→19:24)
[2019-09-28] MEDS: ALBUTEROL SULFATE 2.5 MG/3 ML NEBU NEB SCH ×4 (00:45→19:24)
[2019-09-28] MEDS: POLYVINYL ALCOHOL OPHT DROPS 15 ML BOTTLE EACHEYE SCH ×6 (01:59→20:57)
[2019-09-28] MEDS: [UNRECOGNIZED DRUG - OTHER] GT SCH (05:21)
[2019-09-28] MEDS: CARBIDOPA/LEVODOPA 25-100MG TABLET GT SCH ×3 (05:22→21:00)
[2019-09-28] MEDS: LEVOTHYROXINE SODIUM 50 MCG TABLET GT SCH (05:22)
[2019-09-28] MEDS: FAMOTIDINE 20 MG TABLET GT SCH (05:46)
[2019-09-28 07:19] VITALS: BP 125/55
[2019-09-28 07:20] VITALS: BP 99/55
[2019-09-28] MEDS: [UNRECOGNIZED DRUG - OTHER] GT SCH (09:00)
[2019-09-28] MEDS: COD LIVER OIL/ZINC OXIDE OINT 113 GM TUBE TP SCH ×2 (09:00→21:00)
[2019-09-28] MEDS: ENOXAPARIN SODIUM 30 MG/0.3 ML DISP.SYRIN SUBCUT SCH (09:00)
[2019-09-28] MEDS: HYDROGEN PEROXIDE 3% 118 ML BOTTLE TP SCH ×2 (09:36→20:56)
[2019-09-28] MEDS: CALCIUM CARB/VITAMIN D 600-400 MG TABLET GT SCH ×2 (09:59→20:57)
[2019-09-28] MEDS: OSMOLITE 1.2 CAL 1,000 ML LIQUID GT PRN (13:11)
--- NOTE | 2019-09-28 15:00 | NUR ---
Spoke to Dr Gomez regarding the consult for gt replacement ,he will came in am to change it.
--- NOTE | 2019-09-28 20:00 | NUR ---
WAS CALLED AND WILL COME TO SEE PT TOMORROW FOR GT REPLACEMENT NOTED.
[2019-09-28 20:32] VITALS: BP 124/70
[2019-09-28] MEDS: MINERAL OIL/PETROLAT OPHT OINT 3.5 GM TUBE EACHEYE SCH (20:57)
[2019-09-28] MEDS: [UNRECOGNIZED DRUG - OTHER] GT SCH (20:57)
[2019-09-28] MEDS: PROTEIN SUPPLEMENT (PROSTAT) 30 ML LIQUID GT SCH (20:59)
[2019-09-29] MEDS: ALBUTEROL SULFATE 2.5 MG/3 ML NEBU NEB SCH ×4 (00:37→19:20)
[2019-09-29] MEDS: IPRATROPIUM BROMIDE 0.5 MG/2.5 ML NEBU NEB SCH ×4 (00:37→19:20)
[2019-09-29] MEDS: POLYVINYL ALCOHOL OPHT DROPS 15 ML BOTTLE EACHEYE SCH ×6 (01:00→21:34)
[2019-09-29] MEDS: [UNRECOGNIZED DRUG - OTHER] GT SCH (05:52)
[2019-09-29] MEDS: LEVOTHYROXINE SODIUM 50 MCG TABLET GT SCH (05:52)
[2019-09-29] MEDS: CARBIDOPA/LEVODOPA 25-100MG TABLET GT SCH ×3 (05:52→21:35)
[2019-09-29] MEDS: ALENDRONATE GT SCH (05:52)
[2019-09-29] MEDS: FAMOTIDINE 20 MG TABLET GT SCH (05:52)
[2019-09-29 07:24] VITALS: BP 134/59
[2019-09-29] MEDS: COD LIVER OIL/ZINC OXIDE OINT 113 GM TUBE TP SCH ×2 (08:19→21:35)
[2019-09-29] MEDS: [UNRECOGNIZED DRUG - OTHER] GT SCH (08:19)
[2019-09-29] MEDS: CALCIUM CARB/VITAMIN D 600-400 MG TABLET GT SCH ×2 (08:19→21:34)
[2019-09-29] MEDS: ENOXAPARIN SODIUM 30 MG/0.3 ML DISP.SYRIN SUBCUT SCH (08:20)
[2019-09-29] MEDS: diphenhydrAMINE 25 MG/10 ML UDC GT PRN (08:24)
[2019-09-29] MEDS: HYDROGEN PEROXIDE 3% 118 ML BOTTLE TP SCH ×2 (08:24→21:11)
[2019-09-29] MEDS: OSMOLITE 1.2 CAL 1,000 ML LIQUID GT PRN (10:45)
--- NOTE | 2019-09-29 15:49 | NUR ---
Seen and examined by Dr Gomez ,unable to replace the GT at bedside,new orders to obtain consent for EGD for Gt replacement tomorrow at 1300.NPO post MN.Called Kimberlee PT"s daughter to get the consent ,but she wants to discuss the procedure with the engineering drafter first.Dr Gomez notified .
--- NOTE | 2019-09-29 16:56 | NUR ---
Per Kimberlee Rodas she spoke to Dr Gomez but now she wants to talk to Dr Yu,regarding the procedure.I Spoke to Dr Yu ,he wll contact Kimberlee later .
--- NOTE | 2019-09-29 17:40 | NUR ---
Pt's daughter Kimberlee spoke to Dr Yu,consent for EGD and Gt replacement obtained,Dr Gomez notified.
--- NOTE | 2019-09-29 18:00 | NUR ---
Seen and examined by Dr Yu with new orders noted.
[2019-09-29 20:04] VITALS: BP 139/65
[2019-09-29] MEDS: MINERAL OIL/PETROLAT OPHT OINT 3.5 GM TUBE EACHEYE SCH (21:34)
[2019-09-29] MEDS: [UNRECOGNIZED DRUG - OTHER] GT SCH (21:34)
[2019-09-29] MEDS: PROTEIN SUPPLEMENT (PROSTAT) 30 ML LIQUID GT SCH (21:34)
[2019-09-29 23:16] LABS: *BILIRUBIN,URIN NEGATIVE (NEGATIVE); *BLOOD, URINE 3+ (NEGATIVE); *CLARITY,URINE CLOUDY (CLEAR); *COLOR,URINE YELLOW (YELLOW); *KETONES,URINE NEGATIVE (NEGATIVE); *UROBILINOGEN,URINE 0.2 E.U./dl (NORMAL); LEUKOCYTE ESTERASE ,URINE 3+ (NEGATIVE); NITRITE, URINE POSITIVE (NEGATIVE); PH,URINE 8.5 (5.0-8.0); UGLUCOSE NEGATIVE (NEGATIVE)
[2019-09-29 23:26] LABS: RBC,URINE 50-80 /HPF (0-3); WBC,URINE 20-50 /HPF (0-3)
[2019-09-29 23:27] LABS: BACTERIA,URINE MODERATE /HPF (NONE SEEN); SQUAMOUS EPITHELIAL CELL,UR FEW /HPF (NONE SEEN)
--- NOTE | 2019-09-30 | NUR ---
NPO at midnight in preparation for EGD with peg placement tomorrow. no signs of any distress at this time, will continue monitor.
[2019-09-30] MEDS: IPRATROPIUM BROMIDE 0.5 MG/2.5 ML NEBU NEB SCH ×4 (00:39→19:30)
[2019-09-30] MEDS: ALBUTEROL SULFATE 2.5 MG/3 ML NEBU NEB SCH ×4 (00:39→19:30)
[2019-09-30] MEDS: POLYVINYL ALCOHOL OPHT DROPS 15 ML BOTTLE EACHEYE SCH ×6 (01:00→21:25)
[2019-09-30] MEDS: [UNRECOGNIZED DRUG - OTHER] GT SCH (05:34)
[2019-09-30] MEDS: CARBIDOPA/LEVODOPA 25-100MG TABLET GT SCH ×3 (05:34→21:28)
[2019-09-30] MEDS: FAMOTIDINE 20 MG TABLET GT SCH (05:34)
[2019-09-30] MEDS: LEVOTHYROXINE SODIUM 50 MCG TABLET GT SCH (05:34)
[2019-09-30 06:49] LABS: BASOPHILS # (AUTO) 0.1 K/uL (0.0-8.0); BASOPHILS % (AUTO) 0.9 % (0.0-2.0); EOSINOPHILS # (AUTO) 0.2 K/uL (0.0-0.7); EOSINOPHILS % (AUTO) 2.2 % (0.0-7.0); HEMATOCRIT 42.3 % (31.2-41.9); HEMOGLOBIN 14.3 g/dL (10.9-14.3); LYMPHOCYTES # (AUTO) 2.5 K/uL (20.0-40.0); LYMPHOCYTES % (AUTO) 37.1 % (20.5-51.5); MEAN CORPUSCULAR HEMOGLOBIN 30.6 uug (24.7-32.8); MEAN CORPUSCULAR HGB CONC 34 g/dL (32.3-35.6); MEAN CORPUSCULAR VOLUME 90.5 fL (75.5-95.3); MONOCYTES # (AUTO) 0.6 K/uL (2.0-10.0); MONOCYTES % (AUTO) 9.4 % (0.0-11.0); NEUTROPHILS # (AUTO) 3.4 K/uL (1.8-8.9); NEUTROPHILS % (AUTO) 50.4 % (38.5-71.5); PLATELET COUNT (AUTO) 186 K/uL (179-408); RED BLOOD CELL COUNT(AUTO) 4.68 MIL/uL (3.63-4.92); WHITE BLOOD COUNT (AUTO) 6.8 K/uL (3.8-11.8)
[2019-09-30 06:56] LABS: CREATININE 0.9 mg/dL (0.6-1.3); POTASSIUM 4.3 mmol/L (3.5-5.1)
[2019-09-30 07:11] LABS: THYROID STIMULATING HORMONE 2.218 mIU/mL (0.358-3.740)
[2019-09-30 08:00] VITALS: BP 138/53
[2019-09-30] MEDS: HYDROGEN PEROXIDE 3% 118 ML BOTTLE TP SCH ×2 (09:00→21:34)
[2019-09-30] MEDS: [UNRECOGNIZED DRUG - OTHER] GT SCH (09:00)
[2019-09-30] MEDS: CALCIUM CARB/VITAMIN D 600-400 MG TABLET GT SCH ×2 (09:00→21:25)
[2019-09-30] MEDS: COD LIVER OIL/ZINC OXIDE OINT 113 GM TUBE TP SCH ×2 (09:55→21:28)
[2019-09-30 14:17] VITALS: BP 128/55
[2019-09-30] MEDS: OSMOLITE 1.2 CAL 1,000 ML LIQUID GT PRN (14:44)
[2019-09-30 18:00] VITALS: BP 122/58
[2019-09-30 21:06] VITALS: BP 113/60
[2019-09-30] MEDS: MINERAL OIL/PETROLAT OPHT OINT 3.5 GM TUBE EACHEYE SCH (21:25)
[2019-09-30] MEDS: [UNRECOGNIZED DRUG - OTHER] GT SCH (21:28)
[2019-09-30] MEDS: PROTEIN SUPPLEMENT (PROSTAT) 30 ML LIQUID GT SCH (21:28)
--- NOTE | 2019-09-30 22:00 | NUR ---
S/p EGD with GT placement, GT is working well, GT site is clean, GT care done. Kept clean and comfortable.
[2019-10-01] MEDS: IPRATROPIUM BROMIDE 0.5 MG/2.5 ML NEBU NEB SCH ×4 (00:40→19:16)
[2019-10-01] MEDS: ALBUTEROL SULFATE 2.5 MG/3 ML NEBU NEB SCH ×4 (00:40→19:16)
[2019-10-01] MEDS: POLYVINYL ALCOHOL OPHT DROPS 15 ML BOTTLE EACHEYE SCH ×6 (01:00→20:17)
--- NOTE | 2019-10-01 03:00 | NUR ---
Will continue Lovenox 30mg subcutaneous daily for DVT prophylaxis.
[2019-10-01] MEDS: [UNRECOGNIZED DRUG - OTHER] GT SCH (06:23)
[2019-10-01] MEDS: LEVOTHYROXINE SODIUM 50 MCG TABLET GT SCH (06:23)
[2019-10-01] MEDS: CARBIDOPA/LEVODOPA 25-100MG TABLET GT SCH ×3 (06:23→21:06)
[2019-10-01] MEDS: FAMOTIDINE 20 MG TABLET GT SCH (06:24)
[2019-10-01 07:39] VITALS: BP 119/54
[2019-10-01] MEDS: [UNRECOGNIZED DRUG - OTHER] GT SCH (08:56)
[2019-10-01] MEDS: CALCIUM CARB/VITAMIN D 600-400 MG TABLET GT SCH ×2 (08:56→20:17)
[2019-10-01] MEDS: COD LIVER OIL/ZINC OXIDE OINT 113 GM TUBE TP SCH ×2 (08:57→20:17)
[2019-10-01] MEDS: ENOXAPARIN SODIUM 30 MG/0.3 ML DISP.SYRIN SUBCUT SCH (08:57)
[2019-10-01] MEDS: HYDROGEN PEROXIDE 3% 118 ML BOTTLE TP SCH ×2 (09:25→21:16)
--- NOTE | 2019-10-01 12:00 | NUR ---
ZOOM PROVIDED TO DAUGHTER, GHADA.
[2019-10-01] MEDS: OSMOLITE 1.2 CAL 1,000 ML LIQUID GT PRN (14:47)
[2019-10-01 20:13] VITALS: BP 126/61
[2019-10-01] MEDS: [UNRECOGNIZED DRUG - OTHER] GT SCH (20:17)
[2019-10-01] MEDS: PROTEIN SUPPLEMENT (PROSTAT) 30 ML LIQUID GT SCH (20:17)
[2019-10-01] MEDS: MINERAL OIL/PETROLAT OPHT OINT 3.5 GM TUBE EACHEYE SCH (21:06)
[2019-10-02] MEDS: POLYVINYL ALCOHOL OPHT DROPS 15 ML BOTTLE EACHEYE SCH ×6 (00:14→20:20)
[2019-10-02] MEDS: IPRATROPIUM BROMIDE 0.5 MG/2.5 ML NEBU NEB SCH ×4 (00:43→19:35)
[2019-10-02] MEDS: ALBUTEROL SULFATE 2.5 MG/3 ML NEBU NEB SCH ×4 (00:43→19:35)
[2019-10-02] MEDS: LEVOTHYROXINE SODIUM 50 MCG TABLET GT SCH (05:46)
[2019-10-02] MEDS: [UNRECOGNIZED DRUG - OTHER] GT SCH (05:46)
[2019-10-02] MEDS: CARBIDOPA/LEVODOPA 25-100MG TABLET GT SCH ×3 (05:46→21:09)
[2019-10-02] MEDS: FAMOTIDINE 20 MG TABLET GT SCH (05:47)
[2019-10-02 07:47] VITALS: BP 115/60
[2019-10-02] MEDS: ENOXAPARIN SODIUM 30 MG/0.3 ML DISP.SYRIN SUBCUT SCH (08:08)
[2019-10-02] MEDS: [UNRECOGNIZED DRUG - OTHER] GT SCH (08:09)
[2019-10-02] MEDS: CALCIUM CARB/VITAMIN D 600-400 MG TABLET GT SCH ×2 (08:09→20:20)
[2019-10-02] MEDS: COD LIVER OIL/ZINC OXIDE OINT 113 GM TUBE TP SCH ×2 (08:09→20:20)
[2019-10-02] MEDS: HYDROGEN PEROXIDE 3% 118 ML BOTTLE TP SCH ×2 (09:30→21:25)
[2019-10-02] MEDS: OSMOLITE 1.2 CAL 1,000 ML LIQUID GT PRN (12:50)
[2019-10-02 20:20] VITALS: BP 109/49
[2019-10-02] MEDS: [UNRECOGNIZED DRUG - OTHER] GT SCH (20:20)
[2019-10-02] MEDS: PROTEIN SUPPLEMENT (PROSTAT) 30 ML LIQUID GT SCH (20:20)
[2019-10-02] MEDS: MINERAL OIL/PETROLAT OPHT OINT 3.5 GM TUBE EACHEYE SCH (21:08)
[2019-10-03] MEDS: POLYVINYL ALCOHOL OPHT DROPS 15 ML BOTTLE EACHEYE SCH ×6 (00:50→20:18)
[2019-10-03] MEDS: ALBUTEROL SULFATE 2.5 MG/3 ML NEBU NEB SCH ×4 (01:51→19:32)
[2019-10-03] MEDS: IPRATROPIUM BROMIDE 0.5 MG/2.5 ML NEBU NEB SCH ×4 (01:51→19:32)
[2019-10-03] MEDS: CARBIDOPA/LEVODOPA 25-100MG TABLET GT SCH ×3 (05:33→21:11)
[2019-10-03] MEDS: FAMOTIDINE 20 MG TABLET GT SCH (05:33)
[2019-10-03] MEDS: [UNRECOGNIZED DRUG - OTHER] GT SCH (05:33)
[2019-10-03] MEDS: LEVOTHYROXINE SODIUM 50 MCG TABLET GT SCH (05:33)
[2019-10-03 07:42] VITALS: BP 131/78
[2019-10-03] MEDS: HYDROGEN PEROXIDE 3% 118 ML BOTTLE TP SCH ×2 (08:10→21:22)
[2019-10-03] MEDS: [UNRECOGNIZED DRUG - OTHER] GT SCH (08:13)
[2019-10-03] MEDS: CALCIUM CARB/VITAMIN D 600-400 MG TABLET GT SCH ×2 (08:13→20:18)
[2019-10-03] MEDS: COD LIVER OIL/ZINC OXIDE OINT 113 GM TUBE TP SCH ×2 (08:14→20:18)
[2019-10-03] MEDS: ENOXAPARIN SODIUM 30 MG/0.3 ML DISP.SYRIN SUBCUT SCH (08:14)
[2019-10-03] MEDS: OSMOLITE 1.2 CAL 1,000 ML LIQUID GT PRN (12:00)
[2019-10-03 20:12] VITALS: BP 123/60
[2019-10-03] MEDS: [UNRECOGNIZED DRUG - OTHER] GT SCH (20:18)
[2019-10-03] MEDS: PROTEIN SUPPLEMENT (PROSTAT) 30 ML LIQUID GT SCH (20:18)
[2019-10-03] MEDS: MINERAL OIL/PETROLAT OPHT OINT 3.5 GM TUBE EACHEYE SCH (21:11)
[2019-10-04] MEDS: POLYVINYL ALCOHOL OPHT DROPS 15 ML BOTTLE EACHEYE SCH ×6 (00:24→20:35)
[2019-10-04] MEDS: IPRATROPIUM BROMIDE 0.5 MG/2.5 ML NEBU NEB SCH ×4 (01:49→19:20)
[2019-10-04] MEDS: ALBUTEROL SULFATE 2.5 MG/3 ML NEBU NEB SCH ×4 (01:49→19:20)
[2019-10-04] MEDS: FAMOTIDINE 20 MG TABLET GT SCH (05:32)
[2019-10-04] MEDS: LEVOTHYROXINE SODIUM 50 MCG TABLET GT SCH (05:32)
[2019-10-04] MEDS: [UNRECOGNIZED DRUG - OTHER] GT SCH (05:32)
[2019-10-04] MEDS: CARBIDOPA/LEVODOPA 25-100MG TABLET GT SCH ×3 (05:32→21:08)
[2019-10-04 07:25] VITALS: BP 129/68
[2019-10-04] MEDS: HYDROGEN PEROXIDE 3% 118 ML BOTTLE TP SCH ×2 (08:16→21:49)
[2019-10-04] MEDS: COD LIVER OIL/ZINC OXIDE OINT 113 GM TUBE TP SCH ×2 (08:44→20:37)
[2019-10-04] MEDS: [UNRECOGNIZED DRUG - OTHER] GT SCH (08:44)
[2019-10-04] MEDS: CALCIUM CARB/VITAMIN D 600-400 MG TABLET GT SCH ×2 (08:44→20:35)
[2019-10-04] MEDS: ENOXAPARIN SODIUM 30 MG/0.3 ML DISP.SYRIN SUBCUT SCH (08:45)
--- NOTE | 2019-10-04 14:57 | NUR ---
Patient's daughter, Kimberlee, is aware of the COVID testing to be administered. Charge nurse aware.
--- NOTE | 2019-10-04 18:13 | NUR ---
Zoom provided to patient's daughter. Patient is calm, comfortable, and no signs of distress.
[2019-10-04 20:04] VITALS: BP 134/60
[2019-10-04] MEDS: MINERAL OIL/PETROLAT OPHT OINT 3.5 GM TUBE EACHEYE SCH (20:35)
[2019-10-04] MEDS: [UNRECOGNIZED DRUG - OTHER] GT SCH (20:37)
[2019-10-04] MEDS: PROTEIN SUPPLEMENT (PROSTAT) 30 ML LIQUID GT SCH (20:37)
[2019-10-05] MEDS: IPRATROPIUM BROMIDE 0.5 MG/2.5 ML NEBU NEB SCH ×4 (00:40→19:14)
[2019-10-05] MEDS: ALBUTEROL SULFATE 2.5 MG/3 ML NEBU NEB SCH ×4 (00:40→19:14)
[2019-10-05] MEDS: POLYVINYL ALCOHOL OPHT DROPS 15 ML BOTTLE EACHEYE SCH ×6 (01:03→20:40)
[2019-10-05] MEDS: CARBIDOPA/LEVODOPA 25-100MG TABLET GT SCH ×3 (05:16→22:05)
[2019-10-05] MEDS: LEVOTHYROXINE SODIUM 50 MCG TABLET GT SCH (05:16)
[2019-10-05] MEDS: [UNRECOGNIZED DRUG - OTHER] GT SCH (05:16)
[2019-10-05] MEDS: FAMOTIDINE 20 MG TABLET GT SCH (06:37)
[2019-10-05 07:38] VITALS: BP 123/60
[2019-10-05] MEDS: HYDROGEN PEROXIDE 3% 118 ML BOTTLE TP SCH ×2 (09:12→19:15)
[2019-10-05] MEDS: [UNRECOGNIZED DRUG - OTHER] GT SCH (09:13)
[2019-10-05] MEDS: CALCIUM CARB/VITAMIN D 600-400 MG TABLET GT SCH ×2 (09:13→20:41)
[2019-10-05] MEDS: COD LIVER OIL/ZINC OXIDE OINT 113 GM TUBE TP SCH ×2 (09:14→20:41)
[2019-10-05] MEDS: ENOXAPARIN SODIUM 30 MG/0.3 ML DISP.SYRIN SUBCUT SCH (09:15)
[2019-10-05] MEDS: OSMOLITE 1.2 CAL 1,000 ML LIQUID GT PRN (13:28)
[2019-10-05 19:57] VITALS: BP 129/60
[2019-10-05] MEDS: MINERAL OIL/PETROLAT OPHT OINT 3.5 GM TUBE EACHEYE SCH (20:40)
[2019-10-05] MEDS: PROTEIN SUPPLEMENT (PROSTAT) 30 ML LIQUID GT SCH (20:41)
[2019-10-05] MEDS: [UNRECOGNIZED DRUG - OTHER] GT SCH (20:41)
[2019-10-06] MEDS: ALBUTEROL SULFATE 2.5 MG/3 ML NEBU NEB SCH ×4 (00:27→19:29)
[2019-10-06] MEDS: IPRATROPIUM BROMIDE 0.5 MG/2.5 ML NEBU NEB SCH ×4 (00:27→19:29)
[2019-10-06] MEDS: POLYVINYL ALCOHOL OPHT DROPS 15 ML BOTTLE EACHEYE SCH ×6 (01:00→21:01)
[2019-10-06] MEDS: diphenhydrAMINE 25 MG/10 ML UDC GT PRN (04:00)
[2019-10-06] MEDS: ALENDRONATE GT SCH (05:34)
[2019-10-06] MEDS: [UNRECOGNIZED DRUG - OTHER] GT SCH (05:35)
[2019-10-06] MEDS: CARBIDOPA/LEVODOPA 25-100MG TABLET GT SCH ×3 (05:35→21:02)
[2019-10-06] MEDS: FAMOTIDINE 20 MG TABLET GT SCH (05:35)
[2019-10-06] MEDS: LEVOTHYROXINE SODIUM 50 MCG TABLET GT SCH (05:35)
[2019-10-06 07:32] VITALS: BP 110/63
[2019-10-06] MEDS: HYDROGEN PEROXIDE 3% 118 ML BOTTLE TP SCH ×2 (07:35→21:29)
[2019-10-06] MEDS: CALCIUM CARB/VITAMIN D 600-400 MG TABLET GT SCH ×2 (09:04→21:02)
[2019-10-06] MEDS: [UNRECOGNIZED DRUG - OTHER] GT SCH (09:04)
[2019-10-06] MEDS: COD LIVER OIL/ZINC OXIDE OINT 113 GM TUBE TP SCH ×2 (09:06→21:02)
[2019-10-06] MEDS: ENOXAPARIN SODIUM 30 MG/0.3 ML DISP.SYRIN SUBCUT SCH (09:06)
--- NOTE | 2019-10-06 14:31 | NUR ---
SW sent patient's daughter Kimberlee and son Adalberto an email, notifying them that the next IDT meeting for the patient is scheduled for 10/12/2019. In this email, MARINO asked Kimberlee and Adalberto to let this SW know if either one of them wanted to participate in the meeting through speaker phone.
[2019-10-06 19:56] VITALS: BP 134/60
[2019-10-06] MEDS: MINERAL OIL/PETROLAT OPHT OINT 3.5 GM TUBE EACHEYE SCH (21:01)
[2019-10-06] MEDS: [UNRECOGNIZED DRUG - OTHER] GT SCH (21:02)
[2019-10-06] MEDS: PROTEIN SUPPLEMENT (PROSTAT) 30 ML LIQUID GT SCH (21:02)
[2019-10-07] MEDS: POLYVINYL ALCOHOL OPHT DROPS 15 ML BOTTLE EACHEYE SCH ×6 (01:00→20:46)
[2019-10-07] MEDS: IPRATROPIUM BROMIDE 0.5 MG/2.5 ML NEBU NEB SCH ×4 (01:48→19:27)
[2019-10-07] MEDS: ALBUTEROL SULFATE 2.5 MG/3 ML NEBU NEB SCH ×4 (01:48→19:27)
[2019-10-07] MEDS: OSMOLITE 1.2 CAL 1,000 ML LIQUID GT PRN (05:00)
[2019-10-07] MEDS: FAMOTIDINE 20 MG TABLET GT SCH (06:08)
[2019-10-07] MEDS: LEVOTHYROXINE SODIUM 50 MCG TABLET GT SCH (06:08)
[2019-10-07] MEDS: CARBIDOPA/LEVODOPA 25-100MG TABLET GT SCH ×3 (06:08→21:07)
[2019-10-07] MEDS: [UNRECOGNIZED DRUG - OTHER] GT SCH (06:08)
[2019-10-07 07:41] VITALS: BP 117/74
[2019-10-07] MEDS: [UNRECOGNIZED DRUG - OTHER] GT SCH (08:48)
[2019-10-07] MEDS: CALCIUM CARB/VITAMIN D 600-400 MG TABLET GT SCH ×2 (08:48→20:47)
[2019-10-07] MEDS: COD LIVER OIL/ZINC OXIDE OINT 113 GM TUBE TP SCH ×2 (08:49→20:47)
[2019-10-07] MEDS: ENOXAPARIN SODIUM 30 MG/0.3 ML DISP.SYRIN SUBCUT SCH (08:50)
[2019-10-07] MEDS: HYDROGEN PEROXIDE 3% 118 ML BOTTLE TP SCH ×2 (09:34→21:40)
--- NOTE | 2019-10-07 11:21 | NUR ---
MARINO received an email back from the patient's daughter Kimberlee, who stated that both she and patient's son Adalberto, would be participating in the IDT meeting on 10/11 through speaker phone. MARINO informed Kimberlee to be available between 11am-12pm on 10/11 in order to receive this MARINO's call.
[2019-10-07] MEDS: PROTEIN SUPPLEMENT (PROSTAT) 30 ML LIQUID GT SCH (20:47)
[2019-10-07] MEDS: MINERAL OIL/PETROLAT OPHT OINT 3.5 GM TUBE EACHEYE SCH (20:47)
[2019-10-07] MEDS: [UNRECOGNIZED DRUG - OTHER] GT SCH (20:47)
[2019-10-07] MEDS: diphenhydrAMINE 25 MG/10 ML UDC GT PRN (22:00)
[2019-10-07 22:16] VITALS: BP 126/70
[2019-10-08] MEDS: POLYVINYL ALCOHOL OPHT DROPS 15 ML BOTTLE EACHEYE SCH ×6 (01:00→21:00)
[2019-10-08] MEDS: OSMOLITE 1.2 CAL 1,000 ML LIQUID GT PRN (01:30)
[2019-10-08] MEDS: ALBUTEROL SULFATE 2.5 MG/3 ML NEBU NEB SCH ×4 (01:40→19:53)
[2019-10-08] MEDS: IPRATROPIUM BROMIDE 0.5 MG/2.5 ML NEBU NEB SCH ×4 (01:40→19:53)
[2019-10-08] MEDS: FAMOTIDINE 20 MG TABLET GT SCH (05:51)
[2019-10-08] MEDS: LEVOTHYROXINE SODIUM 50 MCG TABLET GT SCH (05:51)
[2019-10-08] MEDS: CARBIDOPA/LEVODOPA 25-100MG TABLET GT SCH ×3 (05:51→21:00)
[2019-10-08] MEDS: [UNRECOGNIZED DRUG - OTHER] GT SCH (05:51)
[2019-10-08 07:44] VITALS: BP 117/59
--- NOTE | 2019-10-08 08:04 | NUR ---
NOTED BACK OF NECK AND RIGHT SIDE OF NECK WITH RASHES. MD NOTIFIED WITH NEW ORDERS NOTED AND CARRIED OUT. DAUGHTER MADE AWARE.
[2019-10-08] MEDS: CALCIUM CARB/VITAMIN D 600-400 MG TABLET GT SCH ×2 (08:11→21:00)
[2019-10-08] MEDS: [UNRECOGNIZED DRUG - OTHER] GT SCH (08:14)
[2019-10-08] MEDS: COD LIVER OIL/ZINC OXIDE OINT 113 GM TUBE TP SCH ×2 (08:15→21:00)
[2019-10-08] MEDS: ENOXAPARIN SODIUM 30 MG/0.3 ML DISP.SYRIN SUBCUT SCH (08:15)
[2019-10-08] MEDS: HYDROGEN PEROXIDE 3% 118 ML BOTTLE TP SCH ×2 (09:03→21:16)
[2019-10-08] MEDS: NYSTATIN/TRIAMCINOLONE CREAM 15 GM TUBE TP SCH ×2 (13:47→21:00)
[2019-10-08] MEDS: MINERAL OIL/PETROLAT OPHT OINT 3.5 GM TUBE EACHEYE SCH (21:00)
[2019-10-08] MEDS: [UNRECOGNIZED DRUG - OTHER] GT SCH (21:00)
[2019-10-08] MEDS: PROTEIN SUPPLEMENT (PROSTAT) 30 ML LIQUID GT SCH (21:00)
[2019-10-08 23:03] VITALS: BP 126/64
--- NOTE | 2019-10-09 00:30 | NUR ---
Change previous GT site care to wash with soap and water and cover with dry dressing daily.
[2019-10-09] MEDS: POLYVINYL ALCOHOL OPHT DROPS 15 ML BOTTLE EACHEYE SCH ×6 (01:21→20:11)
[2019-10-09] MEDS: ALBUTEROL SULFATE 2.5 MG/3 ML NEBU NEB SCH ×4 (01:39→19:18)
[2019-10-09] MEDS: IPRATROPIUM BROMIDE 0.5 MG/2.5 ML NEBU NEB SCH ×4 (01:39→19:18)
[2019-10-09] MEDS: LEVOTHYROXINE SODIUM 50 MCG TABLET GT SCH (05:33)
[2019-10-09] MEDS: CARBIDOPA/LEVODOPA 25-100MG TABLET GT SCH ×3 (05:33→22:59)
[2019-10-09] MEDS: [UNRECOGNIZED DRUG - OTHER] GT SCH (05:33)
[2019-10-09] MEDS: FAMOTIDINE 20 MG TABLET GT SCH (05:34)
[2019-10-09] MEDS: OSMOLITE 1.2 CAL 1,000 ML LIQUID GT PRN (07:06)
[2019-10-09 07:40] VITALS: BP 127/57
[2019-10-09] MEDS: ENOXAPARIN SODIUM 30 MG/0.3 ML DISP.SYRIN SUBCUT SCH (08:57)
[2019-10-09] MEDS: CALCIUM CARB/VITAMIN D 600-400 MG TABLET GT SCH ×2 (08:57→20:12)
[2019-10-09] MEDS: [UNRECOGNIZED DRUG - OTHER] GT SCH (08:57)
[2019-10-09] MEDS: NYSTATIN/TRIAMCINOLONE CREAM 15 GM TUBE TP SCH ×2 (08:58→20:12)
[2019-10-09] MEDS: COD LIVER OIL/ZINC OXIDE OINT 113 GM TUBE TP SCH ×2 (08:58→20:12)
[2019-10-09] MEDS: HYDROGEN PEROXIDE 3% 118 ML BOTTLE TP SCH ×2 (09:00→21:03)
[2019-10-09] MEDS: MINERAL OIL/PETROLAT OPHT OINT 3.5 GM TUBE EACHEYE SCH (20:11)
[2019-10-09] MEDS: [UNRECOGNIZED DRUG - OTHER] GT SCH (20:12)
[2019-10-09] MEDS: PROTEIN SUPPLEMENT (PROSTAT) 30 ML LIQUID GT SCH (20:12)
[2019-10-09 22:37] VITALS: BP 134/62
[2019-10-10] MEDS: ALBUTEROL SULFATE 2.5 MG/3 ML NEBU NEB SCH ×4 (00:38→19:24)
[2019-10-10] MEDS: IPRATROPIUM BROMIDE 0.5 MG/2.5 ML NEBU NEB SCH ×4 (00:38→19:24)
[2019-10-10] MEDS: POLYVINYL ALCOHOL OPHT DROPS 15 ML BOTTLE EACHEYE SCH ×6 (01:00→20:16)
[2019-10-10] MEDS: [UNRECOGNIZED DRUG - OTHER] GT SCH (05:23)
[2019-10-10] MEDS: CARBIDOPA/LEVODOPA 25-100MG TABLET GT SCH ×3 (05:23→22:42)
[2019-10-10] MEDS: OSMOLITE 1.2 CAL 1,000 ML LIQUID GT PRN (05:23)
[2019-10-10] MEDS: LEVOTHYROXINE SODIUM 50 MCG TABLET GT SCH (05:23)
[2019-10-10] MEDS: FAMOTIDINE 20 MG TABLET GT SCH (06:10)
[2019-10-10] MEDS: HYDROGEN PEROXIDE 3% 118 ML BOTTLE TP SCH ×2 (07:40→19:24)
[2019-10-10 07:48] VITALS: BP 155/70
[2019-10-10] MEDS: CALCIUM CARB/VITAMIN D 600-400 MG TABLET GT SCH ×2 (08:48→20:16)
[2019-10-10] MEDS: [UNRECOGNIZED DRUG - OTHER] GT SCH (08:48)
[2019-10-10] MEDS: ENOXAPARIN SODIUM 30 MG/0.3 ML DISP.SYRIN SUBCUT SCH (08:49)
[2019-10-10] MEDS: NYSTATIN/TRIAMCINOLONE CREAM 15 GM TUBE TP SCH ×2 (08:49→20:17)
[2019-10-10] MEDS: COD LIVER OIL/ZINC OXIDE OINT 113 GM TUBE TP SCH ×2 (08:49→20:16)
[2019-10-10] MEDS: MINERAL OIL/PETROLAT OPHT OINT 3.5 GM TUBE EACHEYE SCH (20:16)
[2019-10-10] MEDS: PROTEIN SUPPLEMENT (PROSTAT) 30 ML LIQUID GT SCH (20:16)
[2019-10-10] MEDS: [UNRECOGNIZED DRUG - OTHER] GT SCH (20:16)
[2019-10-10 22:54] VITALS: BP 123/63
[2019-10-11] MEDS: POLYVINYL ALCOHOL OPHT DROPS 15 ML BOTTLE EACHEYE SCH ×6 (01:29→20:41)
[2019-10-11] MEDS: IPRATROPIUM BROMIDE 0.5 MG/2.5 ML NEBU NEB SCH ×4 (01:54→19:48)
[2019-10-11] MEDS: ALBUTEROL SULFATE 2.5 MG/3 ML NEBU NEB SCH ×4 (01:54→19:48)
[2019-10-11] MEDS: [UNRECOGNIZED DRUG - OTHER] GT SCH (05:55)
[2019-10-11] MEDS: CARBIDOPA/LEVODOPA 25-100MG TABLET GT SCH ×3 (05:55→22:26)
[2019-10-11] MEDS: LEVOTHYROXINE SODIUM 50 MCG TABLET GT SCH (05:55)
[2019-10-11] MEDS: FAMOTIDINE 20 MG TABLET GT SCH (05:55)
[2019-10-11 07:38] VITALS: BP 125/59
[2019-10-11] MEDS: NYSTATIN/TRIAMCINOLONE CREAM 15 GM TUBE TP SCH ×2 (08:34→20:41)
[2019-10-11] MEDS: COD LIVER OIL/ZINC OXIDE OINT 113 GM TUBE TP SCH ×2 (08:34→20:41)
[2019-10-11] MEDS: CALCIUM CARB/VITAMIN D 600-400 MG TABLET GT SCH ×2 (08:34→20:41)
[2019-10-11] MEDS: [UNRECOGNIZED DRUG - OTHER] GT SCH (08:34)
[2019-10-11] MEDS: ENOXAPARIN SODIUM 30 MG/0.3 ML DISP.SYRIN SUBCUT SCH (08:35)
[2019-10-11] MEDS: HYDROGEN PEROXIDE 3% 118 ML BOTTLE TP SCH ×2 (09:17→21:25)
--- NOTE | 2019-10-11 11:45 | NUR ---
SEEN BY DANNIE Bailey AND WITH NNO.
[2019-10-11 20:11] VITALS: BP 131/41
[2019-10-11] MEDS: [UNRECOGNIZED DRUG - OTHER] GT SCH (20:41)
[2019-10-11] MEDS: PROTEIN SUPPLEMENT (PROSTAT) 30 ML LIQUID GT SCH (20:41)
[2019-10-11] MEDS: MINERAL OIL/PETROLAT OPHT OINT 3.5 GM TUBE EACHEYE SCH (20:41)
[2019-10-12] MEDS: POLYVINYL ALCOHOL OPHT DROPS 15 ML BOTTLE EACHEYE SCH ×6 (01:26→20:12)
[2019-10-12] MEDS: ALBUTEROL SULFATE 2.5 MG/3 ML NEBU NEB SCH ×4 (01:30→19:34)
[2019-10-12] MEDS: IPRATROPIUM BROMIDE 0.5 MG/2.5 ML NEBU NEB SCH ×4 (01:30→19:34)
[2019-10-12] MEDS: LEVOTHYROXINE SODIUM 50 MCG TABLET GT SCH (05:01)
[2019-10-12] MEDS: CARBIDOPA/LEVODOPA 25-100MG TABLET GT SCH ×3 (05:01→21:50)
[2019-10-12] MEDS: [UNRECOGNIZED DRUG - OTHER] GT SCH (05:01)
[2019-10-12] MEDS: FAMOTIDINE 20 MG TABLET GT SCH (05:43)
[2019-10-12 07:45] VITALS: BP 124/48
[2019-10-12] MEDS: ENOXAPARIN SODIUM 30 MG/0.3 ML DISP.SYRIN SUBCUT SCH (08:02)
[2019-10-12] MEDS: [UNRECOGNIZED DRUG - OTHER] GT SCH (08:05)
[2019-10-12] MEDS: COD LIVER OIL/ZINC OXIDE OINT 113 GM TUBE TP SCH ×2 (08:05→20:12)
[2019-10-12] MEDS: CALCIUM CARB/VITAMIN D 600-400 MG TABLET GT SCH ×2 (08:05→20:12)
[2019-10-12] MEDS: NYSTATIN/TRIAMCINOLONE CREAM 15 GM TUBE TP SCH ×2 (08:07→20:12)
[2019-10-12] MEDS: HYDROGEN PEROXIDE 3% 118 ML BOTTLE TP SCH ×2 (08:08→21:43)
[2019-10-12] MEDS: OSMOLITE 1.2 CAL 1,000 ML LIQUID GT PRN (15:24)
--- NOTE | 2019-10-12 16:19 | NUR ---
INTERDISCIPLINARY PLAN OF CARE CONFERENCE was held today. Patient's daughter Kimberlee and son Adalberto participated in the meeting by speaker phone. Dr. Yu and the Interdisciplinary Team reviewed the current plan of care in detail. RN reported on patient's medical condition, and findings of recent labs. See RN IDT conference notes. PT reported on patient's current treatment plan. No major changes in medical condition were reported by nursing or by the other disciplines. See all disciplines IDT notes and physician's progress notes for additional details. Kimberlee's and Adalberto's questions were addressed by the IDT team, and they both expressed understanding and being in content with the current plan of care.
[2019-10-12] MEDS: [UNRECOGNIZED DRUG - OTHER] GT SCH (20:12)
[2019-10-12] MEDS: PROTEIN SUPPLEMENT (PROSTAT) 30 ML LIQUID GT SCH (20:12)
[2019-10-12 20:18] VITALS: BP 116/69
[2019-10-12] MEDS: MINERAL OIL/PETROLAT OPHT OINT 3.5 GM TUBE EACHEYE SCH (21:50)
[2019-10-13] MEDS: ALBUTEROL SULFATE 2.5 MG/3 ML NEBU NEB SCH ×4 (00:45→19:44)
[2019-10-13] MEDS: IPRATROPIUM BROMIDE 0.5 MG/2.5 ML NEBU NEB SCH ×4 (00:45→19:44)
[2019-10-13] MEDS: POLYVINYL ALCOHOL OPHT DROPS 15 ML BOTTLE EACHEYE SCH ×6 (01:30→21:02)
[2019-10-13] MEDS: ALENDRONATE GT SCH (05:47)
[2019-10-13] MEDS: LEVOTHYROXINE SODIUM 50 MCG TABLET GT SCH (05:47)
[2019-10-13] MEDS: CARBIDOPA/LEVODOPA 25-100MG TABLET GT SCH ×3 (05:47→21:06)
[2019-10-13] MEDS: [UNRECOGNIZED DRUG - OTHER] GT SCH (05:47)
[2019-10-13] MEDS: FAMOTIDINE 20 MG TABLET GT SCH (05:47)
[2019-10-13 07:48] VITALS: BP 127/52
[2019-10-13] MEDS: HYDROGEN PEROXIDE 3% 118 ML BOTTLE TP SCH ×2 (08:06→21:06)
[2019-10-13] MEDS: COD LIVER OIL/ZINC OXIDE OINT 113 GM TUBE TP SCH ×2 (09:05→21:06)
[2019-10-13] MEDS: NYSTATIN/TRIAMCINOLONE CREAM 15 GM TUBE TP SCH ×2 (09:05→21:06)
[2019-10-13] MEDS: ENOXAPARIN SODIUM 30 MG/0.3 ML DISP.SYRIN SUBCUT SCH (09:07)
[2019-10-13] MEDS: [UNRECOGNIZED DRUG - OTHER] GT SCH (09:09)
[2019-10-13] MEDS: CALCIUM CARB/VITAMIN D 600-400 MG TABLET GT SCH ×2 (09:10→21:02)
[2019-10-13] MEDS: OSMOLITE 1.2 CAL 1,000 ML LIQUID GT PRN (12:56)
[2019-10-13 19:52] VITALS: BP 132/52
[2019-10-13] MEDS: MINERAL OIL/PETROLAT OPHT OINT 3.5 GM TUBE EACHEYE SCH (21:02)
[2019-10-13] MEDS: [UNRECOGNIZED DRUG - OTHER] GT SCH (21:06)
[2019-10-13] MEDS: PROTEIN SUPPLEMENT (PROSTAT) 30 ML LIQUID GT SCH (21:06)
[2019-10-14] MEDS: POLYVINYL ALCOHOL OPHT DROPS 15 ML BOTTLE EACHEYE SCH ×6 (00:01→20:27)
[2019-10-14] MEDS: ALBUTEROL SULFATE 2.5 MG/3 ML NEBU NEB SCH ×4 (00:47→19:30)
[2019-10-14] MEDS: IPRATROPIUM BROMIDE 0.5 MG/2.5 ML NEBU NEB SCH ×4 (00:47→19:30)
[2019-10-14] MEDS: CARBIDOPA/LEVODOPA 25-100MG TABLET GT SCH ×3 (05:02→22:11)
[2019-10-14] MEDS: LEVOTHYROXINE SODIUM 50 MCG TABLET GT SCH (05:02)
[2019-10-14] MEDS: [UNRECOGNIZED DRUG - OTHER] GT SCH (05:02)
[2019-10-14] MEDS: FAMOTIDINE 20 MG TABLET GT SCH (05:42)
[2019-10-14] MEDS: HYDROGEN PEROXIDE 3% 118 ML BOTTLE TP SCH ×2 (07:21→21:35)
[2019-10-14 07:53] VITALS: BP 104/77
[2019-10-14] MEDS: CALCIUM CARB/VITAMIN D 600-400 MG TABLET GT SCH ×2 (08:02→20:27)
[2019-10-14] MEDS: ENOXAPARIN SODIUM 30 MG/0.3 ML DISP.SYRIN SUBCUT SCH (08:02)
[2019-10-14] MEDS: [UNRECOGNIZED DRUG - OTHER] GT SCH (08:02)
[2019-10-14] MEDS: COD LIVER OIL/ZINC OXIDE OINT 113 GM TUBE TP SCH ×2 (08:02→20:27)
[2019-10-14] MEDS: NYSTATIN/TRIAMCINOLONE CREAM 15 GM TUBE TP SCH ×2 (08:03→20:28)
[2019-10-14] MEDS: OSMOLITE 1.2 CAL 1,000 ML LIQUID GT PRN (08:09)
--- NOTE | 2019-10-14 10:00 | NUR ---
nursing note: spoke to Carol Rodas (daughter) regarding need for another bottle of patients supplement Maureen Thought, daughter said she has ordered it and is waiting for it to be delivered so she can bring it in.
[2019-10-14 19:53] VITALS: BP 110/54
[2019-10-14 19:54] VITALS: BP 126/57
[2019-10-14 20:00] VITALS: BP 120/60
[2019-10-14] MEDS: [UNRECOGNIZED DRUG - OTHER] GT SCH (20:27)
[2019-10-14] MEDS: MINERAL OIL/PETROLAT OPHT OINT 3.5 GM TUBE EACHEYE SCH (20:27)
[2019-10-14] MEDS: PROTEIN SUPPLEMENT (PROSTAT) 30 ML LIQUID GT SCH (20:27)
[2019-10-15] MEDS: POLYVINYL ALCOHOL OPHT DROPS 15 ML BOTTLE EACHEYE SCH ×6 (00:39→20:31)
[2019-10-15] MEDS: ALBUTEROL SULFATE 2.5 MG/3 ML NEBU NEB SCH ×4 (01:43→19:21)
[2019-10-15] MEDS: IPRATROPIUM BROMIDE 0.5 MG/2.5 ML NEBU NEB SCH ×4 (01:43→19:21)
[2019-10-15] MEDS: OSMOLITE 1.2 CAL 1,000 ML LIQUID GT PRN ×2 (03:37→18:19)
[2019-10-15] MEDS: [UNRECOGNIZED DRUG - OTHER] GT SCH (05:29)
[2019-10-15] MEDS: CARBIDOPA/LEVODOPA 25-100MG TABLET GT SCH ×3 (05:29→21:48)
[2019-10-15] MEDS: LEVOTHYROXINE SODIUM 50 MCG TABLET GT SCH (05:29)
[2019-10-15] MEDS: FAMOTIDINE 20 MG TABLET GT SCH (05:31)
[2019-10-15 07:43] VITALS: BP 138/57
[2019-10-15] MEDS: CALCIUM CARB/VITAMIN D 600-400 MG TABLET GT SCH ×2 (08:45→20:31)
[2019-10-15] MEDS: [UNRECOGNIZED DRUG - OTHER] GT SCH (08:46)
[2019-10-15] MEDS: NYSTATIN/TRIAMCINOLONE CREAM 15 GM TUBE TP SCH ×2 (08:52→21:48)
[2019-10-15] MEDS: ENOXAPARIN SODIUM 30 MG/0.3 ML DISP.SYRIN SUBCUT SCH (08:52)
[2019-10-15] MEDS: COD LIVER OIL/ZINC OXIDE OINT 113 GM TUBE TP SCH ×2 (08:52→20:32)
[2019-10-15] MEDS: HYDROGEN PEROXIDE 3% 118 ML BOTTLE TP SCH ×2 (09:00→21:05)
[2019-10-15] MEDS: MINERAL OIL/PETROLAT OPHT OINT 3.5 GM TUBE EACHEYE SCH (20:31)
[2019-10-15] MEDS: [UNRECOGNIZED DRUG - OTHER] GT SCH (20:31)
[2019-10-15] MEDS: PROTEIN SUPPLEMENT (PROSTAT) 30 ML LIQUID GT SCH (20:32)
[2019-10-15 22:05] VITALS: BP 117/67
[2019-10-16] MEDS: IPRATROPIUM BROMIDE 0.5 MG/2.5 ML NEBU NEB SCH ×4 (00:39→19:20)
[2019-10-16] MEDS: ALBUTEROL SULFATE 2.5 MG/3 ML NEBU NEB SCH ×4 (00:39→19:20)
[2019-10-16] MEDS: POLYVINYL ALCOHOL OPHT DROPS 15 ML BOTTLE EACHEYE SCH ×6 (01:06→20:31)
[2019-10-16] MEDS: [UNRECOGNIZED DRUG - OTHER] GT SCH (05:23)
[2019-10-16] MEDS: LEVOTHYROXINE SODIUM 50 MCG TABLET GT SCH (05:23)
[2019-10-16] MEDS: CARBIDOPA/LEVODOPA 25-100MG TABLET GT SCH ×3 (05:23→22:00)
[2019-10-16] MEDS: FAMOTIDINE 20 MG TABLET GT SCH (05:31)
[2019-10-16 08:00] VITALS: BP 150/54
[2019-10-16] MEDS: CALCIUM CARB/VITAMIN D 600-400 MG TABLET GT SCH ×2 (08:35→20:32)
[2019-10-16] MEDS: [UNRECOGNIZED DRUG - OTHER] GT SCH (08:35)
[2019-10-16] MEDS: ENOXAPARIN SODIUM 30 MG/0.3 ML DISP.SYRIN SUBCUT SCH (08:36)
[2019-10-16] MEDS: NYSTATIN/TRIAMCINOLONE CREAM 15 GM TUBE TP SCH ×2 (09:31→20:32)
[2019-10-16] MEDS: COD LIVER OIL/ZINC OXIDE OINT 113 GM TUBE TP SCH ×2 (09:31→20:32)
[2019-10-16] MEDS: HYDROGEN PEROXIDE 3% 118 ML BOTTLE TP SCH ×2 (09:54→19:20)
[2019-10-16] MEDS: OSMOLITE 1.2 CAL 1,000 ML LIQUID GT PRN (18:13)
[2019-10-16 19:54] VITALS: BP 113/56
[2019-10-16] MEDS: MINERAL OIL/PETROLAT OPHT OINT 3.5 GM TUBE EACHEYE SCH (20:31)
[2019-10-16] MEDS: PROTEIN SUPPLEMENT (PROSTAT) 30 ML LIQUID GT SCH (20:32)
[2019-10-16] MEDS: [UNRECOGNIZED DRUG - OTHER] GT SCH (20:32)
[2019-10-17] MEDS: ALBUTEROL SULFATE 2.5 MG/3 ML NEBU NEB SCH ×4 (00:36→19:01)
[2019-10-17] MEDS: IPRATROPIUM BROMIDE 0.5 MG/2.5 ML NEBU NEB SCH ×4 (00:36→19:01)
[2019-10-17] MEDS: POLYVINYL ALCOHOL OPHT DROPS 15 ML BOTTLE EACHEYE SCH ×6 (01:35→21:02)
[2019-10-17] MEDS: [UNRECOGNIZED DRUG - OTHER] GT SCH (05:45)
[2019-10-17] MEDS: LEVOTHYROXINE SODIUM 50 MCG TABLET GT SCH (05:45)
[2019-10-17] MEDS: CARBIDOPA/LEVODOPA 25-100MG TABLET GT SCH ×3 (05:45→21:02)
[2019-10-17] MEDS: FAMOTIDINE 20 MG TABLET GT SCH (05:45)
[2019-10-17 07:46] VITALS: BP 141/60
[2019-10-17] MEDS: CALCIUM CARB/VITAMIN D 600-400 MG TABLET GT SCH ×2 (08:55→21:02)
[2019-10-17] MEDS: ENOXAPARIN SODIUM 30 MG/0.3 ML DISP.SYRIN SUBCUT SCH (08:55)
[2019-10-17] MEDS: [UNRECOGNIZED DRUG - OTHER] GT SCH (08:55)
[2019-10-17] MEDS: NYSTATIN/TRIAMCINOLONE CREAM 15 GM TUBE TP SCH ×2 (09:02→21:02)
[2019-10-17] MEDS: COD LIVER OIL/ZINC OXIDE OINT 113 GM TUBE TP SCH ×2 (09:10→21:02)
[2019-10-17] MEDS: HYDROGEN PEROXIDE 3% 118 ML BOTTLE TP SCH ×2 (09:35→19:01)
--- NOTE | 2019-10-17 16:24 | NUR ---
Covid19 test done.
[2019-10-17] MEDS: OSMOLITE 1.2 CAL 1,000 ML LIQUID GT PRN (17:26)
[2019-10-17 19:57] VITALS: BP 131/63
[2019-10-17] MEDS: PROTEIN SUPPLEMENT (PROSTAT) 30 ML LIQUID GT SCH (21:02)
[2019-10-17] MEDS: [UNRECOGNIZED DRUG - OTHER] GT SCH (21:02)
[2019-10-17] MEDS: MINERAL OIL/PETROLAT OPHT OINT 3.5 GM TUBE EACHEYE SCH (21:02)
[2019-10-18] MEDS: ALBUTEROL SULFATE 2.5 MG/3 ML NEBU NEB SCH ×4 (00:35→19:25)
[2019-10-18] MEDS: IPRATROPIUM BROMIDE 0.5 MG/2.5 ML NEBU NEB SCH ×4 (00:35→19:25)
[2019-10-18] MEDS: POLYVINYL ALCOHOL OPHT DROPS 15 ML BOTTLE EACHEYE SCH ×6 (01:28→21:10)
[2019-10-18] MEDS: LEVOTHYROXINE SODIUM 50 MCG TABLET GT SCH (06:52)
[2019-10-18] MEDS: FAMOTIDINE 20 MG TABLET GT SCH (06:52)
[2019-10-18] MEDS: [UNRECOGNIZED DRUG - OTHER] GT SCH (06:52)
[2019-10-18] MEDS: CARBIDOPA/LEVODOPA 25-100MG TABLET GT SCH ×3 (06:52→21:11)
[2019-10-18 07:50] VITALS: BP 130/52
[2019-10-18] MEDS: COD LIVER OIL/ZINC OXIDE OINT 113 GM TUBE TP SCH ×2 (08:38→21:11)
[2019-10-18] MEDS: diphenhydrAMINE 25 MG/10 ML UDC GT PRN (08:40)
[2019-10-18] MEDS: NYSTATIN/TRIAMCINOLONE CREAM 15 GM TUBE TP SCH ×2 (08:40→21:11)
[2019-10-18] MEDS: CALCIUM CARB/VITAMIN D 600-400 MG TABLET GT SCH ×2 (08:45→21:10)
[2019-10-18] MEDS: ENOXAPARIN SODIUM 30 MG/0.3 ML DISP.SYRIN SUBCUT SCH (08:46)
[2019-10-18] MEDS: [UNRECOGNIZED DRUG - OTHER] GT SCH (08:47)
[2019-10-18] MEDS: HYDROGEN PEROXIDE 3% 118 ML BOTTLE TP SCH ×2 (09:14→21:18)
--- NOTE | 2019-10-18 15:37 | NUR ---
NOTIFIED RESPONSIBLE LIBERTARIAN, GHADA BARON OF POSSIBLE COVID 19 EXPOSURE, AND TESTING PLAN FOR CURRENT AND NEXT WEEK MANDATED. RESPONSIBLE LIBERTARIAN VERBALIZED GOOD UNDERSTANDING.
[2019-10-18] MEDS: OSMOLITE 1.2 CAL 1,000 ML LIQUID GT PRN (15:58)
[2019-10-18 20:52] VITALS: BP 128/60
[2019-10-18] MEDS: [UNRECOGNIZED DRUG - OTHER] GT SCH (21:10)
[2019-10-18] MEDS: MINERAL OIL/PETROLAT OPHT OINT 3.5 GM TUBE EACHEYE SCH (21:10)
[2019-10-18] MEDS: PROTEIN SUPPLEMENT (PROSTAT) 30 ML LIQUID GT SCH (21:10)
[2019-10-19] MEDS: ALBUTEROL SULFATE 2.5 MG/3 ML NEBU NEB SCH ×4 (01:01→19:26)
[2019-10-19] MEDS: IPRATROPIUM BROMIDE 0.5 MG/2.5 ML NEBU NEB SCH ×4 (01:01→19:26)
[2019-10-19] MEDS: POLYVINYL ALCOHOL OPHT DROPS 15 ML BOTTLE EACHEYE SCH ×6 (01:53→21:07)
[2019-10-19] MEDS: [UNRECOGNIZED DRUG - OTHER] GT SCH (06:20)
[2019-10-19] MEDS: CARBIDOPA/LEVODOPA 25-100MG TABLET GT SCH ×3 (06:20→21:08)
[2019-10-19] MEDS: LEVOTHYROXINE SODIUM 50 MCG TABLET GT SCH (06:21)
[2019-10-19] MEDS: FAMOTIDINE 20 MG TABLET GT SCH (06:21)
[2019-10-19 07:28] VITALS: BP 130/65
[2019-10-19] MEDS: CALCIUM CARB/VITAMIN D 600-400 MG TABLET GT SCH ×2 (08:30→21:07)
[2019-10-19] MEDS: [UNRECOGNIZED DRUG - OTHER] GT SCH (08:31)
[2019-10-19] MEDS: ENOXAPARIN SODIUM 30 MG/0.3 ML DISP.SYRIN SUBCUT SCH (08:32)
[2019-10-19] MEDS: COD LIVER OIL/ZINC OXIDE OINT 113 GM TUBE TP SCH ×2 (08:34→21:08)
[2019-10-19] MEDS: NYSTATIN/TRIAMCINOLONE CREAM 15 GM TUBE TP SCH ×2 (08:36→21:07)
[2019-10-19] MEDS: HYDROGEN PEROXIDE 3% 118 ML BOTTLE TP SCH ×2 (09:35→21:44)
[2019-10-19] MEDS: OSMOLITE 1.2 CAL 1,000 ML LIQUID GT PRN (11:32)
[2019-10-19 20:25] VITALS: BP 106/59
[2019-10-19] MEDS: [UNRECOGNIZED DRUG - OTHER] GT SCH (21:07)
[2019-10-19] MEDS: MINERAL OIL/PETROLAT OPHT OINT 3.5 GM TUBE EACHEYE SCH (21:07)
[2019-10-19] MEDS: PROTEIN SUPPLEMENT (PROSTAT) 30 ML LIQUID GT SCH (21:08)
[2019-10-20] MEDS: POLYVINYL ALCOHOL OPHT DROPS 15 ML BOTTLE EACHEYE SCH ×6 (01:03→21:03)
[2019-10-20] MEDS: ALBUTEROL SULFATE 2.5 MG/3 ML NEBU NEB SCH ×4 (01:40→19:00)
[2019-10-20] MEDS: IPRATROPIUM BROMIDE 0.5 MG/2.5 ML NEBU NEB SCH ×4 (01:40→19:00)
[2019-10-20] MEDS: CARBIDOPA/LEVODOPA 25-100MG TABLET GT SCH ×3 (05:52→21:06)
[2019-10-20] MEDS: [UNRECOGNIZED DRUG - OTHER] GT SCH (05:52)
[2019-10-20] MEDS: LEVOTHYROXINE SODIUM 50 MCG TABLET GT SCH (05:52)
[2019-10-20] MEDS: FAMOTIDINE 20 MG TABLET GT SCH (05:52)
[2019-10-20] MEDS: ALENDRONATE GT SCH (05:52)
[2019-10-20 07:43] VITALS: BP 137/65
[2019-10-20] MEDS: [UNRECOGNIZED DRUG - OTHER] GT SCH (09:11)
[2019-10-20] MEDS: COD LIVER OIL/ZINC OXIDE OINT 113 GM TUBE TP SCH ×2 (09:11→21:05)
[2019-10-20] MEDS: NYSTATIN/TRIAMCINOLONE CREAM 15 GM TUBE TP SCH ×2 (09:11→21:06)
[2019-10-20] MEDS: CALCIUM CARB/VITAMIN D 600-400 MG TABLET GT SCH ×2 (09:11→21:03)
[2019-10-20] MEDS: ENOXAPARIN SODIUM 30 MG/0.3 ML DISP.SYRIN SUBCUT SCH (09:12)
[2019-10-20] MEDS: HYDROGEN PEROXIDE 3% 118 ML BOTTLE TP SCH ×2 (09:19→19:00)
[2019-10-20 20:00] VITALS: BP 124/69
[2019-10-20] MEDS: MINERAL OIL/PETROLAT OPHT OINT 3.5 GM TUBE EACHEYE SCH (21:03)
[2019-10-20] MEDS: [UNRECOGNIZED DRUG - OTHER] GT SCH (21:04)
[2019-10-20] MEDS: PROTEIN SUPPLEMENT (PROSTAT) 30 ML LIQUID GT SCH (21:05)
[2019-10-21] MEDS: IPRATROPIUM BROMIDE 0.5 MG/2.5 ML NEBU NEB SCH ×4 (00:35→18:55)
[2019-10-21] MEDS: ALBUTEROL SULFATE 2.5 MG/3 ML NEBU NEB SCH ×4 (00:35→18:55)
[2019-10-21] MEDS: POLYVINYL ALCOHOL OPHT DROPS 15 ML BOTTLE EACHEYE SCH ×6 (01:40→21:35)
[2019-10-21] MEDS: OSMOLITE 1.2 CAL 1,000 ML LIQUID GT PRN (04:18)
[2019-10-21] MEDS: CARBIDOPA/LEVODOPA 25-100MG TABLET GT SCH ×3 (05:15→21:35)
[2019-10-21] MEDS: [UNRECOGNIZED DRUG - OTHER] GT SCH (05:15)
[2019-10-21] MEDS: LEVOTHYROXINE SODIUM 50 MCG TABLET GT SCH (05:15)
[2019-10-21] MEDS: FAMOTIDINE 20 MG TABLET GT SCH (05:38)
[2019-10-21 07:47] VITALS: BP 126/54
[2019-10-21] MEDS: CALCIUM CARB/VITAMIN D 600-400 MG TABLET GT SCH ×2 (08:20→21:35)
[2019-10-21] MEDS: COD LIVER OIL/ZINC OXIDE OINT 113 GM TUBE TP SCH ×2 (08:21→21:35)
[2019-10-21] MEDS: [UNRECOGNIZED DRUG - OTHER] GT SCH (08:21)
[2019-10-21] MEDS: NYSTATIN/TRIAMCINOLONE CREAM 15 GM TUBE TP SCH ×2 (08:21→21:35)
[2019-10-21] MEDS: ENOXAPARIN SODIUM 30 MG/0.3 ML DISP.SYRIN SUBCUT SCH (08:27)
[2019-10-21] MEDS: HYDROGEN PEROXIDE 3% 118 ML BOTTLE TP SCH ×2 (09:30→18:55)
[2019-10-21 20:00] VITALS: BP 124/61
[2019-10-21] MEDS: PROTEIN SUPPLEMENT (PROSTAT) 30 ML LIQUID GT SCH (21:35)
[2019-10-21] MEDS: MINERAL OIL/PETROLAT OPHT OINT 3.5 GM TUBE EACHEYE SCH (21:35)
[2019-10-21] MEDS: [UNRECOGNIZED DRUG - OTHER] GT SCH (21:35)
[2019-10-22] MEDS: IPRATROPIUM BROMIDE 0.5 MG/2.5 ML NEBU NEB SCH ×4 (00:35→19:19)
[2019-10-22] MEDS: ALBUTEROL SULFATE 2.5 MG/3 ML NEBU NEB SCH ×4 (00:35→19:19)
[2019-10-22] MEDS: POLYVINYL ALCOHOL OPHT DROPS 15 ML BOTTLE EACHEYE SCH ×6 (01:00→20:13)
[2019-10-22] MEDS: OSMOLITE 1.2 CAL 1,000 ML LIQUID GT PRN ×2 (03:14→22:40)
[2019-10-22] MEDS: LEVOTHYROXINE SODIUM 50 MCG TABLET GT SCH (06:13)
[2019-10-22] MEDS: CARBIDOPA/LEVODOPA 25-100MG TABLET GT SCH ×3 (06:13→21:10)
[2019-10-22] MEDS: [UNRECOGNIZED DRUG - OTHER] GT SCH (06:13)
[2019-10-22] MEDS: FAMOTIDINE 20 MG TABLET GT SCH (06:13)
[2019-10-22 07:32] VITALS: BP 121/74
[2019-10-22] MEDS: CALCIUM CARB/VITAMIN D 600-400 MG TABLET GT SCH ×2 (08:48→20:13)
[2019-10-22] MEDS: [UNRECOGNIZED DRUG - OTHER] GT SCH (08:49)
[2019-10-22] MEDS: COD LIVER OIL/ZINC OXIDE OINT 113 GM TUBE TP SCH ×2 (08:49→20:13)
[2019-10-22] MEDS: ENOXAPARIN SODIUM 30 MG/0.3 ML DISP.SYRIN SUBCUT SCH (08:50)
[2019-10-22] MEDS: NYSTATIN/TRIAMCINOLONE CREAM 15 GM TUBE TP SCH ×2 (09:00→20:14)
[2019-10-22] MEDS: HYDROGEN PEROXIDE 3% 118 ML BOTTLE TP SCH ×2 (09:20→21:18)
[2019-10-22 20:00] VITALS: BP 128/66
[2019-10-22] MEDS: PROTEIN SUPPLEMENT (PROSTAT) 30 ML LIQUID GT SCH (20:13)
[2019-10-22] MEDS: [UNRECOGNIZED DRUG - OTHER] GT SCH (20:13)
[2019-10-22] MEDS: MINERAL OIL/PETROLAT OPHT OINT 3.5 GM TUBE EACHEYE SCH (21:09)
[2019-10-23] MEDS: POLYVINYL ALCOHOL OPHT DROPS 15 ML BOTTLE EACHEYE SCH ×6 (00:43→20:25)
[2019-10-23] MEDS: IPRATROPIUM BROMIDE 0.5 MG/2.5 ML NEBU NEB SCH ×4 (00:58→19:25)
[2019-10-23] MEDS: ALBUTEROL SULFATE 2.5 MG/3 ML NEBU NEB SCH ×4 (00:58→19:25)
[2019-10-23] MEDS: LEVOTHYROXINE SODIUM 50 MCG TABLET GT SCH (05:32)
[2019-10-23] MEDS: FAMOTIDINE 20 MG TABLET GT SCH (05:32)
[2019-10-23] MEDS: CARBIDOPA/LEVODOPA 25-100MG TABLET GT SCH ×3 (05:32→21:13)
[2019-10-23] MEDS: [UNRECOGNIZED DRUG - OTHER] GT SCH (05:32)
[2019-10-23 07:43] VITALS: BP 131/74
[2019-10-23] MEDS: HYDROGEN PEROXIDE 3% 118 ML BOTTLE TP SCH ×2 (08:36→21:40)
[2019-10-23] MEDS: CALCIUM CARB/VITAMIN D 600-400 MG TABLET GT SCH ×2 (08:55→20:25)
[2019-10-23] MEDS: [UNRECOGNIZED DRUG - OTHER] GT SCH (08:57)
[2019-10-23] MEDS: ENOXAPARIN SODIUM 30 MG/0.3 ML DISP.SYRIN SUBCUT SCH (08:58)
[2019-10-23] MEDS: COD LIVER OIL/ZINC OXIDE OINT 113 GM TUBE TP SCH ×2 (08:58→20:25)
[2019-10-23] MEDS: NYSTATIN/TRIAMCINOLONE CREAM 15 GM TUBE TP SCH ×2 (09:00→20:25)
--- NOTE | 2019-10-23 16:27 | NUR ---
Zoom meeting provided with daughter, Kimberlee.
[2019-10-23 20:15] VITALS: BP 127/64
[2019-10-23] MEDS: PROTEIN SUPPLEMENT (PROSTAT) 30 ML LIQUID GT SCH (20:25)
[2019-10-23] MEDS: [UNRECOGNIZED DRUG - OTHER] GT SCH (20:25)
[2019-10-23] MEDS: MINERAL OIL/PETROLAT OPHT OINT 3.5 GM TUBE EACHEYE SCH (21:13)
[2019-10-24] MEDS: POLYVINYL ALCOHOL OPHT DROPS 15 ML BOTTLE EACHEYE SCH ×6 (00:37→20:20)
[2019-10-24] MEDS: ALBUTEROL SULFATE 2.5 MG/3 ML NEBU NEB SCH ×4 (01:10→19:25)
[2019-10-24] MEDS: IPRATROPIUM BROMIDE 0.5 MG/2.5 ML NEBU NEB SCH ×4 (01:10→19:25)
[2019-10-24] MEDS: LEVOTHYROXINE SODIUM 50 MCG TABLET GT SCH (05:31)
[2019-10-24] MEDS: [UNRECOGNIZED DRUG - OTHER] GT SCH (05:31)
[2019-10-24] MEDS: FAMOTIDINE 20 MG TABLET GT SCH (05:31)
[2019-10-24] MEDS: CARBIDOPA/LEVODOPA 25-100MG TABLET GT SCH ×3 (05:31→21:05)
[2019-10-24 07:42] VITALS: BP 123/60
[2019-10-24] MEDS: HYDROGEN PEROXIDE 3% 118 ML BOTTLE TP SCH ×2 (08:45→20:29)
[2019-10-24] MEDS: CALCIUM CARB/VITAMIN D 600-400 MG TABLET GT SCH ×2 (08:54→20:20)
[2019-10-24] MEDS: [UNRECOGNIZED DRUG - OTHER] GT SCH (08:54)
[2019-10-24] MEDS: COD LIVER OIL/ZINC OXIDE OINT 113 GM TUBE TP SCH ×2 (08:57→20:20)
[2019-10-24] MEDS: ENOXAPARIN SODIUM 30 MG/0.3 ML DISP.SYRIN SUBCUT SCH (08:57)
[2019-10-24] MEDS: NYSTATIN/TRIAMCINOLONE CREAM 15 GM TUBE TP SCH ×2 (09:00→20:20)
[2019-10-24] MEDS: OSMOLITE 1.2 CAL 1,000 ML LIQUID GT PRN (17:46)
[2019-10-24 20:14] VITALS: BP 134/56
[2019-10-24] MEDS: PROTEIN SUPPLEMENT (PROSTAT) 30 ML LIQUID GT SCH (20:20)
[2019-10-24] MEDS: [UNRECOGNIZED DRUG - OTHER] GT SCH (20:20)
[2019-10-24] MEDS: MINERAL OIL/PETROLAT OPHT OINT 3.5 GM TUBE EACHEYE SCH (20:35)
[2019-10-25] MEDS: POLYVINYL ALCOHOL OPHT DROPS 15 ML BOTTLE EACHEYE SCH ×6 (00:05→21:21)
[2019-10-25] MEDS: ALBUTEROL SULFATE 2.5 MG/3 ML NEBU NEB SCH ×4 (01:08→19:19)
[2019-10-25] MEDS: IPRATROPIUM BROMIDE 0.5 MG/2.5 ML NEBU NEB SCH ×4 (01:08→19:19)
[2019-10-25] MEDS: LEVOTHYROXINE SODIUM 50 MCG TABLET GT SCH (05:34)
[2019-10-25] MEDS: [UNRECOGNIZED DRUG - OTHER] GT SCH (05:34)
[2019-10-25] MEDS: CARBIDOPA/LEVODOPA 25-100MG TABLET GT SCH ×3 (05:34→21:21)
[2019-10-25] MEDS: FAMOTIDINE 20 MG TABLET GT SCH (05:34)
[2019-10-25 07:55] VITALS: BP 116/59
[2019-10-25] MEDS: CALCIUM CARB/VITAMIN D 600-400 MG TABLET GT SCH ×2 (08:55→21:21)
[2019-10-25] MEDS: COD LIVER OIL/ZINC OXIDE OINT 113 GM TUBE TP SCH ×2 (08:56→21:21)
[2019-10-25] MEDS: [UNRECOGNIZED DRUG - OTHER] GT SCH (08:56)
[2019-10-25] MEDS: NYSTATIN/TRIAMCINOLONE CREAM 15 GM TUBE TP SCH ×2 (08:57→21:21)
[2019-10-25] MEDS: ENOXAPARIN SODIUM 30 MG/0.3 ML DISP.SYRIN SUBCUT SCH (09:07)
[2019-10-25] MEDS: HYDROGEN PEROXIDE 3% 118 ML BOTTLE TP SCH ×2 (09:20→19:19)
--- NOTE | 2019-10-25 09:34 | NUR ---
PT. ESCALANTE PROVIDED ROHO CUSHION FOR PTRandallTO PROTECT BOTTOM SKIN.
--- NOTE | 2019-10-25 15:30 | NUR ---
NEW ORDER FOR COVID 19 TEST CARRIED OUT.
--- NOTE | 2019-10-25 16:37 | NUR ---
Patient relative notified for covid test.
[2019-10-25 19:52] VITALS: BP 137/64
[2019-10-25] MEDS: PROTEIN SUPPLEMENT (PROSTAT) 30 ML LIQUID GT SCH (21:21)
[2019-10-25] MEDS: MINERAL OIL/PETROLAT OPHT OINT 3.5 GM TUBE EACHEYE SCH (21:21)
[2019-10-25] MEDS: [UNRECOGNIZED DRUG - OTHER] GT SCH (21:21)
[2019-10-26] MEDS: POLYVINYL ALCOHOL OPHT DROPS 15 ML BOTTLE EACHEYE SCH ×6 (01:00→21:07)
[2019-10-26] MEDS: ALBUTEROL SULFATE 2.5 MG/3 ML NEBU NEB SCH ×4 (01:30→19:15)
[2019-10-26] MEDS: IPRATROPIUM BROMIDE 0.5 MG/2.5 ML NEBU NEB SCH ×4 (01:30→19:15)
[2019-10-26] MEDS: LEVOTHYROXINE SODIUM 50 MCG TABLET GT SCH (05:55)
[2019-10-26] MEDS: CARBIDOPA/LEVODOPA 25-100MG TABLET GT SCH ×3 (05:55→21:09)
[2019-10-26] MEDS: [UNRECOGNIZED DRUG - OTHER] GT SCH (05:55)
[2019-10-26] MEDS: FAMOTIDINE 20 MG TABLET GT SCH (05:55)
[2019-10-26 07:31] VITALS: BP 124/61
[2019-10-26] MEDS: CALCIUM CARB/VITAMIN D 600-400 MG TABLET GT SCH ×2 (09:05→21:09)
[2019-10-26] MEDS: [UNRECOGNIZED DRUG - OTHER] GT SCH (09:05)
[2019-10-26] MEDS: COD LIVER OIL/ZINC OXIDE OINT 113 GM TUBE TP SCH ×2 (09:06→21:09)
[2019-10-26] MEDS: ENOXAPARIN SODIUM 30 MG/0.3 ML DISP.SYRIN SUBCUT SCH (09:06)
[2019-10-26] MEDS: NYSTATIN/TRIAMCINOLONE CREAM 15 GM TUBE TP SCH ×2 (09:06→21:09)
[2019-10-26] MEDS: HYDROGEN PEROXIDE 3% 118 ML BOTTLE TP SCH ×2 (09:36→20:57)
[2019-10-26 20:29] VITALS: BP 110/56
[2019-10-26] MEDS: [UNRECOGNIZED DRUG - OTHER] GT SCH (21:09)
[2019-10-26] MEDS: MINERAL OIL/PETROLAT OPHT OINT 3.5 GM TUBE EACHEYE SCH (21:09)
[2019-10-26] MEDS: PROTEIN SUPPLEMENT (PROSTAT) 30 ML LIQUID GT SCH (21:09)
[2019-10-27] MEDS: IPRATROPIUM BROMIDE 0.5 MG/2.5 ML NEBU NEB SCH ×4 (00:39→19:26)
[2019-10-27] MEDS: ALBUTEROL SULFATE 2.5 MG/3 ML NEBU NEB SCH ×4 (00:39→19:26)
[2019-10-27] MEDS: POLYVINYL ALCOHOL OPHT DROPS 15 ML BOTTLE EACHEYE SCH ×6 (01:00→21:41)
[2019-10-27] MEDS: ALENDRONATE GT SCH (06:18)
[2019-10-27] MEDS: [UNRECOGNIZED DRUG - OTHER] GT SCH (06:18)
[2019-10-27] MEDS: LEVOTHYROXINE SODIUM 50 MCG TABLET GT SCH (06:18)
[2019-10-27] MEDS: FAMOTIDINE 20 MG TABLET GT SCH (06:18)
[2019-10-27] MEDS: CARBIDOPA/LEVODOPA 25-100MG TABLET GT SCH ×3 (06:18→21:42)
[2019-10-27 07:30] VITALS: BP 140/59
[2019-10-27] MEDS: HYDROGEN PEROXIDE 3% 118 ML BOTTLE TP SCH ×2 (07:40→21:29)
[2019-10-27] MEDS: [UNRECOGNIZED DRUG - OTHER] GT SCH (08:34)
[2019-10-27] MEDS: CALCIUM CARB/VITAMIN D 600-400 MG TABLET GT SCH ×2 (08:34→21:42)
[2019-10-27] MEDS: NYSTATIN/TRIAMCINOLONE CREAM 15 GM TUBE TP SCH ×2 (08:34→21:42)
[2019-10-27] MEDS: COD LIVER OIL/ZINC OXIDE OINT 113 GM TUBE TP SCH ×2 (08:34→21:42)
[2019-10-27] MEDS: ENOXAPARIN SODIUM 30 MG/0.3 ML DISP.SYRIN SUBCUT SCH (08:38)
[2019-10-27] MEDS: OSMOLITE 1.2 CAL 1,000 ML LIQUID GT PRN (12:51)
--- NOTE | 2019-10-27 18:25 | NUR ---
Kimberlee Cardenas's daughter notified COVID 19 results is negative.
[2019-10-27 20:11] VITALS: BP 119/59
[2019-10-27] MEDS: MINERAL OIL/PETROLAT OPHT OINT 3.5 GM TUBE EACHEYE SCH (21:41)
[2019-10-27] MEDS: [UNRECOGNIZED DRUG - OTHER] GT SCH (21:42)
[2019-10-27] MEDS: PROTEIN SUPPLEMENT (PROSTAT) 30 ML LIQUID GT SCH (21:42)
[2019-10-28] MEDS: POLYVINYL ALCOHOL OPHT DROPS 15 ML BOTTLE EACHEYE SCH ×6 (01:00→20:45)
[2019-10-28] MEDS: IPRATROPIUM BROMIDE 0.5 MG/2.5 ML NEBU NEB SCH ×4 (01:19→19:35)
[2019-10-28] MEDS: ALBUTEROL SULFATE 2.5 MG/3 ML NEBU NEB SCH ×4 (01:19→19:35)
[2019-10-28] MEDS: FAMOTIDINE 20 MG TABLET GT SCH (06:05)
[2019-10-28] MEDS: [UNRECOGNIZED DRUG - OTHER] GT SCH (06:05)
[2019-10-28] MEDS: LEVOTHYROXINE SODIUM 50 MCG TABLET GT SCH (06:05)
[2019-10-28] MEDS: CARBIDOPA/LEVODOPA 25-100MG TABLET GT SCH ×3 (06:05→22:00)
[2019-10-28 07:48] VITALS: BP 143/65
[2019-10-28] MEDS: CALCIUM CARB/VITAMIN D 600-400 MG TABLET GT SCH ×2 (08:44→20:45)
[2019-10-28] MEDS: [UNRECOGNIZED DRUG - OTHER] GT SCH (08:44)
[2019-10-28] MEDS: COD LIVER OIL/ZINC OXIDE OINT 113 GM TUBE TP SCH ×2 (08:45→20:47)
[2019-10-28] MEDS: ENOXAPARIN SODIUM 30 MG/0.3 ML DISP.SYRIN SUBCUT SCH (08:45)
[2019-10-28] MEDS: NYSTATIN/TRIAMCINOLONE CREAM 15 GM TUBE TP SCH ×2 (08:46→20:47)
[2019-10-28] MEDS: HYDROGEN PEROXIDE 3% 118 ML BOTTLE TP SCH ×2 (09:25→20:40)
--- NOTE | 2019-10-28 13:00 | NUR ---
Zoom meeting provided to PT's daughter. PT was in bed awake, alert, calm and no signs of distress.
[2019-10-28 20:15] VITALS: BP 140/54
[2019-10-28] MEDS: [UNRECOGNIZED DRUG - OTHER] GT SCH (20:45)
[2019-10-28] MEDS: MINERAL OIL/PETROLAT OPHT OINT 3.5 GM TUBE EACHEYE SCH (20:45)
[2019-10-28] MEDS: PROTEIN SUPPLEMENT (PROSTAT) 30 ML LIQUID GT SCH (20:45)
[2019-10-29] MEDS: POLYVINYL ALCOHOL OPHT DROPS 15 ML BOTTLE EACHEYE SCH ×6 (01:00→21:16)
[2019-10-29] MEDS: ALBUTEROL SULFATE 2.5 MG/3 ML NEBU NEB SCH ×4 (01:08→19:16)
[2019-10-29] MEDS: IPRATROPIUM BROMIDE 0.5 MG/2.5 ML NEBU NEB SCH ×4 (01:08→19:16)
[2019-10-29] MEDS: CARBIDOPA/LEVODOPA 25-100MG TABLET GT SCH ×3 (06:00→21:16)
[2019-10-29] MEDS: FAMOTIDINE 20 MG TABLET GT SCH (06:00)
[2019-10-29] MEDS: [UNRECOGNIZED DRUG - OTHER] GT SCH (06:00)
[2019-10-29] MEDS: LEVOTHYROXINE SODIUM 50 MCG TABLET GT SCH (06:00)
[2019-10-29] MEDS: HYDROGEN PEROXIDE 3% 118 ML BOTTLE TP SCH ×2 (07:40→20:45)
[2019-10-29 07:55] VITALS: BP 147/50
[2019-10-29] MEDS: CALCIUM CARB/VITAMIN D 600-400 MG TABLET GT SCH ×2 (08:41→21:16)
[2019-10-29] MEDS: [UNRECOGNIZED DRUG - OTHER] GT SCH (08:41)
[2019-10-29] MEDS: COD LIVER OIL/ZINC OXIDE OINT 113 GM TUBE TP SCH ×2 (08:43→21:16)
[2019-10-29] MEDS: ENOXAPARIN SODIUM 30 MG/0.3 ML DISP.SYRIN SUBCUT SCH (08:43)
[2019-10-29 20:15] VITALS: BP 125/53
[2019-10-29] MEDS: MINERAL OIL/PETROLAT OPHT OINT 3.5 GM TUBE EACHEYE SCH (21:16)
[2019-10-29] MEDS: PROTEIN SUPPLEMENT (PROSTAT) 30 ML LIQUID GT SCH (21:16)
[2019-10-29] MEDS: [UNRECOGNIZED DRUG - OTHER] GT SCH (21:16)
[2019-10-30] MEDS: IPRATROPIUM BROMIDE 0.5 MG/2.5 ML NEBU NEB SCH ×4 (00:36→19:03)
[2019-10-30] MEDS: ALBUTEROL SULFATE 2.5 MG/3 ML NEBU NEB SCH ×4 (00:36→19:03)
[2019-10-30] MEDS: POLYVINYL ALCOHOL OPHT DROPS 15 ML BOTTLE EACHEYE SCH ×6 (01:07→20:46)
[2019-10-30] MEDS: OSMOLITE 1.2 CAL 1,000 ML LIQUID GT PRN (04:11)
[2019-10-30] MEDS: CARBIDOPA/LEVODOPA 25-100MG TABLET GT SCH ×3 (06:12→22:26)
[2019-10-30] MEDS: LEVOTHYROXINE SODIUM 50 MCG TABLET GT SCH (06:12)
[2019-10-30] MEDS: FAMOTIDINE 20 MG TABLET GT SCH (06:12)
[2019-10-30] MEDS: [UNRECOGNIZED DRUG - OTHER] GT SCH (06:12)
[2019-10-30 08:07] VITALS: BP 146/58
[2019-10-30] MEDS: HYDROGEN PEROXIDE 3% 118 ML BOTTLE TP SCH ×2 (09:02→21:03)
[2019-10-30] MEDS: ENOXAPARIN SODIUM 30 MG/0.3 ML DISP.SYRIN SUBCUT SCH (09:02)
[2019-10-30] MEDS: COD LIVER OIL/ZINC OXIDE OINT 113 GM TUBE TP SCH ×2 (09:04→20:47)
[2019-10-30] MEDS: CALCIUM CARB/VITAMIN D 600-400 MG TABLET GT SCH ×2 (09:06→20:46)
[2019-10-30] MEDS: [UNRECOGNIZED DRUG - OTHER] GT SCH (09:06)
[2019-10-30 20:00] VITALS: BP 136/60
[2019-10-30] MEDS: [UNRECOGNIZED DRUG - OTHER] GT SCH (20:46)
[2019-10-30] MEDS: MINERAL OIL/PETROLAT OPHT OINT 3.5 GM TUBE EACHEYE SCH (20:46)
[2019-10-30] MEDS: PROTEIN SUPPLEMENT (PROSTAT) 30 ML LIQUID GT SCH (20:47)
[2019-10-31] MEDS: IPRATROPIUM BROMIDE 0.5 MG/2.5 ML NEBU NEB SCH ×4 (01:06→19:35)
[2019-10-31] MEDS: ALBUTEROL SULFATE 2.5 MG/3 ML NEBU NEB SCH ×4 (01:06→19:35)
[2019-10-31] MEDS: POLYVINYL ALCOHOL OPHT DROPS 15 ML BOTTLE EACHEYE SCH ×6 (01:52→20:59)
[2019-10-31] MEDS: OSMOLITE 1.2 CAL 1,000 ML LIQUID GT PRN ×3 (03:30→23:10)
[2019-10-31] MEDS: CARBIDOPA/LEVODOPA 25-100MG TABLET GT SCH ×3 (06:33→21:01)
[2019-10-31] MEDS: LEVOTHYROXINE SODIUM 50 MCG TABLET GT SCH (06:33)
[2019-10-31] MEDS: FAMOTIDINE 20 MG TABLET GT SCH (06:33)
[2019-10-31] MEDS: [UNRECOGNIZED DRUG - OTHER] GT SCH (06:33)
[2019-10-31 08:00] VITALS: BP 139/64
[2019-10-31] MEDS: CALCIUM CARB/VITAMIN D 600-400 MG TABLET GT SCH ×2 (08:07→20:59)
[2019-10-31] MEDS: [UNRECOGNIZED DRUG - OTHER] GT SCH (08:08)
[2019-10-31] MEDS: COD LIVER OIL/ZINC OXIDE OINT 113 GM TUBE TP SCH ×2 (08:09→21:01)
[2019-10-31] MEDS: ENOXAPARIN SODIUM 30 MG/0.3 ML DISP.SYRIN SUBCUT SCH (08:09)
[2019-10-31] MEDS: HYDROGEN PEROXIDE 3% 118 ML BOTTLE TP SCH ×2 (09:22→20:17)
[2019-10-31 20:51] VITALS: BP 136/48
[2019-10-31] MEDS: MINERAL OIL/PETROLAT OPHT OINT 3.5 GM TUBE EACHEYE SCH (20:59)
[2019-10-31] MEDS: [UNRECOGNIZED DRUG - OTHER] GT SCH (21:00)
[2019-10-31] MEDS: PROTEIN SUPPLEMENT (PROSTAT) 30 ML LIQUID GT SCH (21:00)
[2019-11-01] MEDS: IPRATROPIUM BROMIDE 0.5 MG/2.5 ML NEBU NEB SCH ×4 (00:41→19:30)
[2019-11-01] MEDS: ALBUTEROL SULFATE 2.5 MG/3 ML NEBU NEB SCH ×4 (00:41→19:30)
[2019-11-01] MEDS: POLYVINYL ALCOHOL OPHT DROPS 15 ML BOTTLE EACHEYE SCH ×6 (01:57→20:50)
[2019-11-01] MEDS: LEVOTHYROXINE SODIUM 50 MCG TABLET GT SCH (05:33)
[2019-11-01] MEDS: FAMOTIDINE 20 MG TABLET GT SCH (05:33)
[2019-11-01] MEDS: [UNRECOGNIZED DRUG - OTHER] GT SCH (05:33)
[2019-11-01] MEDS: CARBIDOPA/LEVODOPA 25-100MG TABLET GT SCH ×3 (05:33→22:00)
[2019-11-01 07:54] VITALS: BP 151/80
[2019-11-01] MEDS: [UNRECOGNIZED DRUG - OTHER] GT SCH (08:13)
[2019-11-01] MEDS: CALCIUM CARB/VITAMIN D 600-400 MG TABLET GT SCH ×2 (08:13→20:50)
[2019-11-01] MEDS: ENOXAPARIN SODIUM 30 MG/0.3 ML DISP.SYRIN SUBCUT SCH (08:14)
[2019-11-01] MEDS: COD LIVER OIL/ZINC OXIDE OINT 113 GM TUBE TP SCH ×2 (08:14→20:51)
[2019-11-01] MEDS: HYDROGEN PEROXIDE 3% 118 ML BOTTLE TP SCH ×2 (09:35→20:37)
[2019-11-01] MEDS: OSMOLITE 1.2 CAL 1,000 ML LIQUID GT PRN (16:57)
[2019-11-01 20:31] VITALS: BP 133/60
[2019-11-01] MEDS: MINERAL OIL/PETROLAT OPHT OINT 3.5 GM TUBE EACHEYE SCH (20:50)
[2019-11-01] MEDS: [UNRECOGNIZED DRUG - OTHER] GT SCH (20:50)
[2019-11-01] MEDS: PROTEIN SUPPLEMENT (PROSTAT) 30 ML LIQUID GT SCH (20:50)
[2019-11-02] MEDS: POLYVINYL ALCOHOL OPHT DROPS 15 ML BOTTLE EACHEYE SCH ×6 (01:00→21:01)
[2019-11-02] MEDS: ALBUTEROL SULFATE 2.5 MG/3 ML NEBU NEB SCH ×4 (01:08→19:25)
[2019-11-02] MEDS: IPRATROPIUM BROMIDE 0.5 MG/2.5 ML NEBU NEB SCH ×4 (01:08→19:25)
[2019-11-02 05:35] LABS: BASOPHILS # (AUTO) 0.1 K/uL (0.0-8.0); EOSINOPHILS # (AUTO) 0.1 K/uL (0.0-0.7); EOSINOPHILS % (AUTO) 1.8 % (0.0-7.0); HEMATOCRIT 42.4 % (31.2-41.9); HEMOGLOBIN 14.4 g/dL (10.9-14.3); LYMPHOCYTES % (AUTO) 29.4 % (20.5-51.5); MEAN CORPUSCULAR HEMOGLOBIN 30.6 uug (24.7-32.8); MEAN CORPUSCULAR HGB CONC 34 g/dL (32.3-35.6); MEAN CORPUSCULAR VOLUME 90.3 fL (75.5-95.3); MONOCYTES # (AUTO) 0.5 K/uL (2.0-10.0); MONOCYTES % (AUTO) 7.9 % (0.0-11.0); NEUTROPHILS % (AUTO) 59.9 % (38.5-71.5); PLATELET COUNT (AUTO) 174 K/uL (179-408); WHITE BLOOD COUNT (AUTO) 6.7 K/uL (3.8-11.8)
[2019-11-02 05:53] LABS: BILIRUBIN,TOTAL 0.5 mg/dL (0.2-1.0); CREATININE 0.7 mg/dL (0.6-1.3); TOTAL PROTEIN, SERUM 7.3 g/dL (6.4-8.2)
[2019-11-02] MEDS: FAMOTIDINE 20 MG TABLET GT SCH (06:06)
[2019-11-02] MEDS: CARBIDOPA/LEVODOPA 25-100MG TABLET GT SCH ×3 (06:06→21:02)
[2019-11-02] MEDS: LEVOTHYROXINE SODIUM 50 MCG TABLET GT SCH (06:06)
[2019-11-02] MEDS: [UNRECOGNIZED DRUG - OTHER] GT SCH (06:06)
[2019-11-02 07:32] VITALS: BP 92/74
[2019-11-02] MEDS: HYDROGEN PEROXIDE 3% 118 ML BOTTLE TP SCH ×2 (07:35→21:13)
[2019-11-02] MEDS: CALCIUM CARB/VITAMIN D 600-400 MG TABLET GT SCH ×2 (09:00→21:02)
[2019-11-02] MEDS: [UNRECOGNIZED DRUG - OTHER] GT SCH (09:00)
[2019-11-02] MEDS: COD LIVER OIL/ZINC OXIDE OINT 113 GM TUBE TP SCH ×2 (09:02→21:02)
[2019-11-02] MEDS: ENOXAPARIN SODIUM 30 MG/0.3 ML DISP.SYRIN SUBCUT SCH (09:02)
--- NOTE | 2019-11-02 12:45 | NUR ---
Video chat provided with daughter Kimberlee at this time.
[2019-11-02] MEDS: diphenhydrAMINE 25 MG/10 ML UDC GT PRN (15:02)
--- NOTE | 2019-11-02 16:34 | NUR ---
Patient's daughter Kimberlee notified for covid test today.per [facility] requirements
[2019-11-02 20:15] VITALS: BP 122/83
[2019-11-02] MEDS: PROTEIN SUPPLEMENT (PROSTAT) 30 ML LIQUID GT SCH (21:02)
[2019-11-02] MEDS: [UNRECOGNIZED DRUG - OTHER] GT SCH (21:02)
[2019-11-02] MEDS: MINERAL OIL/PETROLAT OPHT OINT 3.5 GM TUBE EACHEYE SCH (21:02)
[2019-11-03] MEDS: POLYVINYL ALCOHOL OPHT DROPS 15 ML BOTTLE EACHEYE SCH ×6 (01:00→21:08)
[2019-11-03] MEDS: IPRATROPIUM BROMIDE 0.5 MG/2.5 ML NEBU NEB SCH ×4 (01:08→19:11)
[2019-11-03] MEDS: ALBUTEROL SULFATE 2.5 MG/3 ML NEBU NEB SCH ×4 (01:08→19:11)
[2019-11-03] MEDS: LEVOTHYROXINE SODIUM 50 MCG TABLET GT SCH (06:11)
[2019-11-03] MEDS: CARBIDOPA/LEVODOPA 25-100MG TABLET GT SCH ×3 (06:11→21:10)
[2019-11-03] MEDS: FAMOTIDINE 20 MG TABLET GT SCH (06:11)
[2019-11-03] MEDS: ALENDRONATE GT SCH (06:11)
[2019-11-03] MEDS: [UNRECOGNIZED DRUG - OTHER] GT SCH (06:11)
[2019-11-03 07:51] VITALS: BP 142/43
[2019-11-03] MEDS: HYDROGEN PEROXIDE 3% 118 ML BOTTLE TP SCH ×2 (08:18→20:32)
[2019-11-03] MEDS: ENOXAPARIN SODIUM 30 MG/0.3 ML DISP.SYRIN SUBCUT SCH (08:25)
[2019-11-03] MEDS: [UNRECOGNIZED DRUG - OTHER] GT SCH (08:26)
[2019-11-03] MEDS: CALCIUM CARB/VITAMIN D 600-400 MG TABLET GT SCH ×2 (08:26→21:08)
[2019-11-03] MEDS: COD LIVER OIL/ZINC OXIDE OINT 113 GM TUBE TP SCH ×2 (08:26→21:10)
--- NOTE | 2019-11-03 11:30 | NUR ---
This SW notified patient's daughter Kimberlee and son Adalberto via email that the next IDT meeting for the patient has been scheduled for 11/09/2019 at 11am. SW asked Kimberlee and Adalberto to let this SW know if they would like to participate in the meeting through speaker phone. SW waiting to hear back from patient's family.
[2019-11-03] MEDS: diphenhydrAMINE 25 MG/10 ML UDC GT PRN (15:48)
--- NOTE | 2019-11-03 19:30 | NUR ---
Patient daughter Kimberlee notified for covid 19 test results negative.
[2019-11-03 20:00] VITALS: BP 134/59
[2019-11-03] MEDS: MINERAL OIL/PETROLAT OPHT OINT 3.5 GM TUBE EACHEYE SCH (21:08)
[2019-11-03] MEDS: [UNRECOGNIZED DRUG - OTHER] GT SCH (21:09)
[2019-11-03] MEDS: PROTEIN SUPPLEMENT (PROSTAT) 30 ML LIQUID GT SCH (21:09)
[2019-11-04] MEDS: IPRATROPIUM BROMIDE 0.5 MG/2.5 ML NEBU NEB SCH ×4 (00:34→19:14)
[2019-11-04] MEDS: ALBUTEROL SULFATE 2.5 MG/3 ML NEBU NEB SCH ×4 (00:35→19:14)
[2019-11-04] MEDS: POLYVINYL ALCOHOL OPHT DROPS 15 ML BOTTLE EACHEYE SCH ×6 (01:00→20:51)
[2019-11-04] MEDS: CARBIDOPA/LEVODOPA 25-100MG TABLET GT SCH ×3 (05:14→21:09)
[2019-11-04] MEDS: LEVOTHYROXINE SODIUM 50 MCG TABLET GT SCH (05:14)
[2019-11-04] MEDS: [UNRECOGNIZED DRUG - OTHER] GT SCH (05:14)
[2019-11-04] MEDS: FAMOTIDINE 20 MG TABLET GT SCH (06:24)
[2019-11-04] MEDS: HYDROGEN PEROXIDE 3% 118 ML BOTTLE TP SCH ×2 (07:05→20:27)
[2019-11-04 07:46] VITALS: BP 132/66
[2019-11-04] MEDS: [UNRECOGNIZED DRUG - OTHER] GT SCH (08:59)
[2019-11-04] MEDS: CALCIUM CARB/VITAMIN D 600-400 MG TABLET GT SCH ×2 (08:59→20:52)
[2019-11-04] MEDS: ENOXAPARIN SODIUM 30 MG/0.3 ML DISP.SYRIN SUBCUT SCH (09:04)
[2019-11-04] MEDS: COD LIVER OIL/ZINC OXIDE OINT 113 GM TUBE TP SCH ×2 (09:05→20:53)
[2019-11-04 20:00] VITALS: BP 112/53
[2019-11-04] MEDS: PROTEIN SUPPLEMENT (PROSTAT) 30 ML LIQUID GT SCH (20:52)
[2019-11-04] MEDS: [UNRECOGNIZED DRUG - OTHER] GT SCH (20:52)
[2019-11-04] MEDS: MINERAL OIL/PETROLAT OPHT OINT 3.5 GM TUBE EACHEYE SCH (20:52)
[2019-11-05] MEDS: IPRATROPIUM BROMIDE 0.5 MG/2.5 ML NEBU NEB SCH ×4 (00:45→19:10)
[2019-11-05] MEDS: ALBUTEROL SULFATE 2.5 MG/3 ML NEBU NEB SCH ×4 (00:45→19:10)
[2019-11-05] MEDS: POLYVINYL ALCOHOL OPHT DROPS 15 ML BOTTLE EACHEYE SCH ×6 (01:00→21:22)
[2019-11-05] MEDS: OSMOLITE 1.2 CAL 1,000 ML LIQUID GT PRN (05:00)
[2019-11-05] MEDS: [UNRECOGNIZED DRUG - OTHER] GT SCH (05:13)
[2019-11-05] MEDS: CARBIDOPA/LEVODOPA 25-100MG TABLET GT SCH ×3 (05:13→21:23)
[2019-11-05] MEDS: LEVOTHYROXINE SODIUM 50 MCG TABLET GT SCH (05:13)
[2019-11-05] MEDS: FAMOTIDINE 20 MG TABLET GT SCH (06:18)
[2019-11-05] MEDS: HYDROGEN PEROXIDE 3% 118 ML BOTTLE TP SCH ×2 (07:10→20:54)
[2019-11-05 07:39] VITALS: BP 131/63
[2019-11-05] MEDS: CALCIUM CARB/VITAMIN D 600-400 MG TABLET GT SCH ×2 (09:10→21:22)
[2019-11-05] MEDS: [UNRECOGNIZED DRUG - OTHER] GT SCH (09:11)
[2019-11-05] MEDS: ENOXAPARIN SODIUM 30 MG/0.3 ML DISP.SYRIN SUBCUT SCH (09:13)
[2019-11-05] MEDS: COD LIVER OIL/ZINC OXIDE OINT 113 GM TUBE TP SCH ×2 (09:22→21:23)
[2019-11-05] MEDS: diphenhydrAMINE 25 MG/10 ML UDC GT PRN (09:25)
--- NOTE | 2019-11-05 11:26 | NUR ---
MARINO received an email from patient's daughter Kimberlee in response to this SW's email earlier this week, inviting patient's daughter and son to participate in the IDT meeting scheduled for 11/08. Kimberlee stated that she and patient's son Adalberto would like to participate in the meeting. MARINO instructed Kimberlee and Adalberto to be available on 11/08 between 11am-12pm in order to received this SW's call during the meeting.
[2019-11-05 20:00] VITALS: BP 129/67
[2019-11-05] MEDS: PROTEIN SUPPLEMENT (PROSTAT) 30 ML LIQUID GT SCH (21:22)
[2019-11-05] MEDS: [UNRECOGNIZED DRUG - OTHER] GT SCH (21:22)
[2019-11-05] MEDS: MINERAL OIL/PETROLAT OPHT OINT 3.5 GM TUBE EACHEYE SCH (21:22)
[2019-11-06] MEDS: ALBUTEROL SULFATE 2.5 MG/3 ML NEBU NEB SCH ×4 (00:41→19:25)
[2019-11-06] MEDS: IPRATROPIUM BROMIDE 0.5 MG/2.5 ML NEBU NEB SCH ×4 (00:41→19:25)
[2019-11-06] MEDS: POLYVINYL ALCOHOL OPHT DROPS 15 ML BOTTLE EACHEYE SCH ×6 (01:06→21:03)
[2019-11-06] MEDS: diphenhydrAMINE 25 MG/10 ML UDC GT PRN (04:45)
[2019-11-06] MEDS: OSMOLITE 1.2 CAL 1,000 ML LIQUID GT PRN (04:45)
[2019-11-06] MEDS: FAMOTIDINE 20 MG TABLET GT SCH (05:50)
[2019-11-06] MEDS: CARBIDOPA/LEVODOPA 25-100MG TABLET GT SCH ×3 (05:50→21:05)
[2019-11-06] MEDS: [UNRECOGNIZED DRUG - OTHER] GT SCH (05:50)
[2019-11-06] MEDS: LEVOTHYROXINE SODIUM 50 MCG TABLET GT SCH (05:50)
[2019-11-06] MEDS: HYDROGEN PEROXIDE 3% 118 ML BOTTLE TP SCH ×2 (07:30→21:31)
[2019-11-06 07:53] VITALS: BP 134/50
[2019-11-06] MEDS: [UNRECOGNIZED DRUG - OTHER] GT SCH (08:45)
[2019-11-06] MEDS: COD LIVER OIL/ZINC OXIDE OINT 113 GM TUBE TP SCH ×2 (08:45→21:04)
[2019-11-06] MEDS: CALCIUM CARB/VITAMIN D 600-400 MG TABLET GT SCH ×2 (08:45→21:09)
[2019-11-06] MEDS: ENOXAPARIN SODIUM 30 MG/0.3 ML DISP.SYRIN SUBCUT SCH (08:46)
--- NOTE | 2019-11-06 09:25 | NUR ---
SEEN BY DR. BECKETT AND WITH NNO.
[2019-11-06 20:09] VITALS: BP 134/64
[2019-11-06] MEDS: MINERAL OIL/PETROLAT OPHT OINT 3.5 GM TUBE EACHEYE SCH (21:03)
[2019-11-06] MEDS: PROTEIN SUPPLEMENT (PROSTAT) 30 ML LIQUID GT SCH (21:05)
[2019-11-06] MEDS: [UNRECOGNIZED DRUG - OTHER] GT SCH (21:09)
[2019-11-07] MEDS: IPRATROPIUM BROMIDE 0.5 MG/2.5 ML NEBU NEB SCH ×4 (01:35→19:28)
[2019-11-07] MEDS: ALBUTEROL SULFATE 2.5 MG/3 ML NEBU NEB SCH ×4 (01:35→19:28)
[2019-11-07] MEDS: OSMOLITE 1.2 CAL 1,000 ML LIQUID GT PRN ×2 (02:52→22:21)
[2019-11-07] MEDS: POLYVINYL ALCOHOL OPHT DROPS 15 ML BOTTLE EACHEYE SCH ×6 (05:37→20:42)
[2019-11-07] MEDS: [UNRECOGNIZED DRUG - OTHER] GT SCH (05:38)
[2019-11-07] MEDS: LEVOTHYROXINE SODIUM 50 MCG TABLET GT SCH (05:38)
[2019-11-07] MEDS: FAMOTIDINE 20 MG TABLET GT SCH (05:38)
[2019-11-07] MEDS: CARBIDOPA/LEVODOPA 25-100MG TABLET GT SCH ×3 (05:38→21:04)
[2019-11-07] MEDS: HYDROGEN PEROXIDE 3% 118 ML BOTTLE TP SCH ×2 (07:24→20:43)
[2019-11-07 08:00] VITALS: BP 129/51
[2019-11-07] MEDS: CALCIUM CARB/VITAMIN D 600-400 MG TABLET GT SCH ×2 (09:16→20:43)
[2019-11-07] MEDS: [UNRECOGNIZED DRUG - OTHER] GT SCH (09:16)
[2019-11-07] MEDS: COD LIVER OIL/ZINC OXIDE OINT 113 GM TUBE TP SCH ×2 (09:17→20:43)
[2019-11-07] MEDS: ENOXAPARIN SODIUM 30 MG/0.3 ML DISP.SYRIN SUBCUT SCH (09:18)
[2019-11-07 20:23] VITALS: BP 110/60
[2019-11-07] MEDS: MINERAL OIL/PETROLAT OPHT OINT 3.5 GM TUBE EACHEYE SCH (20:42)
[2019-11-07] MEDS: PROTEIN SUPPLEMENT (PROSTAT) 30 ML LIQUID GT SCH (20:43)
[2019-11-07] MEDS: [UNRECOGNIZED DRUG - OTHER] GT SCH (20:54)
--- NOTE | 2019-11-07 22:36 | NUR ---
Seen and examined by TORSTEN Seaman with No new orders.
[2019-11-08] MEDS: POLYVINYL ALCOHOL OPHT DROPS 15 ML BOTTLE EACHEYE SCH ×6 (00:49→20:47)
[2019-11-08] MEDS: ALBUTEROL SULFATE 2.5 MG/3 ML NEBU NEB SCH ×4 (01:10→19:21)
[2019-11-08] MEDS: IPRATROPIUM BROMIDE 0.5 MG/2.5 ML NEBU NEB SCH ×4 (01:10→19:21)
[2019-11-08] MEDS: [UNRECOGNIZED DRUG - OTHER] GT SCH (05:04)
[2019-11-08] MEDS: CARBIDOPA/LEVODOPA 25-100MG TABLET GT SCH ×3 (05:04→21:44)
[2019-11-08] MEDS: LEVOTHYROXINE SODIUM 50 MCG TABLET GT SCH (05:04)
[2019-11-08] MEDS: FAMOTIDINE 20 MG TABLET GT SCH (05:32)
[2019-11-08 07:46] VITALS: BP 138/55
[2019-11-08] MEDS: CALCIUM CARB/VITAMIN D 600-400 MG TABLET GT SCH ×2 (08:59→20:47)
[2019-11-08] MEDS: [UNRECOGNIZED DRUG - OTHER] GT SCH (08:59)
[2019-11-08] MEDS: COD LIVER OIL/ZINC OXIDE OINT 113 GM TUBE TP SCH ×2 (08:59→20:47)
[2019-11-08] MEDS: ENOXAPARIN SODIUM 30 MG/0.3 ML DISP.SYRIN SUBCUT SCH (09:00)
[2019-11-08] MEDS: HYDROGEN PEROXIDE 3% 118 ML BOTTLE TP SCH ×2 (09:00→21:25)
[2019-11-08 20:30] VITALS: BP 130/58
[2019-11-08] MEDS: PROTEIN SUPPLEMENT (PROSTAT) 30 ML LIQUID GT SCH (20:47)
[2019-11-08] MEDS: MINERAL OIL/PETROLAT OPHT OINT 3.5 GM TUBE EACHEYE SCH (20:47)
[2019-11-08] MEDS: [UNRECOGNIZED DRUG - OTHER] GT SCH (20:47)
[2019-11-09] MEDS: IPRATROPIUM BROMIDE 0.5 MG/2.5 ML NEBU NEB SCH ×4 (01:10→19:16)
[2019-11-09] MEDS: ALBUTEROL SULFATE 2.5 MG/3 ML NEBU NEB SCH ×4 (01:10→19:16)
[2019-11-09] MEDS: POLYVINYL ALCOHOL OPHT DROPS 15 ML BOTTLE EACHEYE SCH ×6 (01:13→21:38)
[2019-11-09] MEDS: [UNRECOGNIZED DRUG - OTHER] GT SCH (05:13)
[2019-11-09] MEDS: CARBIDOPA/LEVODOPA 25-100MG TABLET GT SCH ×3 (05:14→21:38)
[2019-11-09] MEDS: LEVOTHYROXINE SODIUM 50 MCG TABLET GT SCH (05:14)
[2019-11-09] MEDS: FAMOTIDINE 20 MG TABLET GT SCH (05:31)
[2019-11-09 07:21] VITALS: BP 110/56
[2019-11-09] MEDS: COD LIVER OIL/ZINC OXIDE OINT 113 GM TUBE TP SCH ×2 (08:59→21:38)
[2019-11-09] MEDS: CALCIUM CARB/VITAMIN D 600-400 MG TABLET GT SCH ×2 (08:59→21:38)
[2019-11-09] MEDS: [UNRECOGNIZED DRUG - OTHER] GT SCH (08:59)
[2019-11-09] MEDS: ENOXAPARIN SODIUM 30 MG/0.3 ML DISP.SYRIN SUBCUT SCH (09:00)
[2019-11-09] MEDS: HYDROGEN PEROXIDE 3% 118 ML BOTTLE TP SCH ×2 (09:43→21:03)
[2019-11-09] MEDS: OSMOLITE 1.2 CAL 1,000 ML LIQUID GT PRN (15:15)
--- NOTE | 2019-11-09 15:36 | NUR ---
INTERDISCIPLINARY PLAN OF CARE CONFERENCE was held today. Patient's daughter Kimberlee and son Adalberto were on speaker phone during today's meeting. Dr. Yu and the Interdisciplinary Team reviewed the current plan of care in detail. RN reported on patient's medical condition, findings of recent labs, and her ongoing skin condition and treatment. See RN IDT conference notes. No major changes in medical condition were reported by nursing or by other disciplines. Economics Professor informed Kimberlee and Adalberto that patient is due for her annual optometry appointment and asked Kimberlee and Adalberto if they were fine with patient receiving her annual eye exam. Both Kimberlee and Adalberto were in agreement for patient to have her annual eye exam. See all disciplines IDT notes and physician's progress notes for additional details. Kimberlee's and Adalberto's questions were addressed by the IDT team and by Dr. Yu, and both Kimberlee and Adalberto expressed being content with the current plan of care.
[2019-11-09 20:50] VITALS: BP 108/69
[2019-11-09] MEDS: MINERAL OIL/PETROLAT OPHT OINT 3.5 GM TUBE EACHEYE SCH (21:38)
[2019-11-09] MEDS: PROTEIN SUPPLEMENT (PROSTAT) 30 ML LIQUID GT SCH (21:38)
[2019-11-09] MEDS: [UNRECOGNIZED DRUG - OTHER] GT SCH (21:38)
[2019-11-10] MEDS: ALBUTEROL SULFATE 2.5 MG/3 ML NEBU NEB SCH ×4 (00:38→19:04)
[2019-11-10] MEDS: IPRATROPIUM BROMIDE 0.5 MG/2.5 ML NEBU NEB SCH ×4 (00:38→19:04)
[2019-11-10] MEDS: POLYVINYL ALCOHOL OPHT DROPS 15 ML BOTTLE EACHEYE SCH ×6 (01:06→20:45)
[2019-11-10] MEDS: LEVOTHYROXINE SODIUM 50 MCG TABLET GT SCH (05:11)
[2019-11-10] MEDS: CARBIDOPA/LEVODOPA 25-100MG TABLET GT SCH ×3 (05:11→21:21)
[2019-11-10] MEDS: [UNRECOGNIZED DRUG - OTHER] GT SCH (05:11)
[2019-11-10] MEDS: ALENDRONATE GT SCH (05:11)
[2019-11-10] MEDS: FAMOTIDINE 20 MG TABLET GT SCH (06:09)
[2019-11-10] MEDS: HYDROGEN PEROXIDE 3% 118 ML BOTTLE TP SCH ×2 (07:13→19:04)
[2019-11-10 07:44] VITALS: BP 132/60
[2019-11-10] MEDS: CALCIUM CARB/VITAMIN D 600-400 MG TABLET GT SCH ×2 (09:00→20:45)
[2019-11-10] MEDS: [UNRECOGNIZED DRUG - OTHER] GT SCH (09:01)
[2019-11-10] MEDS: COD LIVER OIL/ZINC OXIDE OINT 113 GM TUBE TP SCH ×2 (09:01→20:45)
[2019-11-10] MEDS: ENOXAPARIN SODIUM 40 MG/0.4 ML DISP.SYRIN SQ SCH (09:05)
[2019-11-10] MEDS: OSMOLITE 1.2 CAL 1,000 ML LIQUID GT PRN (12:19)
[2019-11-10 20:43] VITALS: BP 124/57
[2019-11-10] MEDS: [UNRECOGNIZED DRUG - OTHER] GT SCH (20:45)
[2019-11-10] MEDS: MINERAL OIL/PETROLAT OPHT OINT 3.5 GM TUBE EACHEYE SCH (20:45)
[2019-11-10] MEDS: PROTEIN SUPPLEMENT (PROSTAT) 30 ML LIQUID GT SCH (20:45)
[2019-11-11] MEDS: ALBUTEROL SULFATE 2.5 MG/3 ML NEBU NEB SCH ×4 (00:35→19:12)
[2019-11-11] MEDS: IPRATROPIUM BROMIDE 0.5 MG/2.5 ML NEBU NEB SCH ×4 (00:35→19:12)
[2019-11-11] MEDS: POLYVINYL ALCOHOL OPHT DROPS 15 ML BOTTLE EACHEYE SCH ×6 (01:00→20:21)
[2019-11-11] MEDS: CARBIDOPA/LEVODOPA 25-100MG TABLET GT SCH ×3 (05:10→21:48)
[2019-11-11] MEDS: [UNRECOGNIZED DRUG - OTHER] GT SCH (05:10)
[2019-11-11] MEDS: LEVOTHYROXINE SODIUM 50 MCG TABLET GT SCH (05:10)
[2019-11-11] MEDS: FAMOTIDINE 20 MG TABLET GT SCH (05:35)
[2019-11-11] MEDS: OSMOLITE 1.2 CAL 1,000 ML LIQUID GT PRN (05:36)
[2019-11-11 08:00] VITALS: BP 130/57
--- NOTE | 2019-11-11 08:15 | NUR ---
SEE RESPIRATORY PROGRESS NOTE.
[2019-11-11] MEDS: [UNRECOGNIZED DRUG - OTHER] GT SCH (09:00)
[2019-11-11] MEDS: CALCIUM CARB/VITAMIN D 600-400 MG TABLET GT SCH ×2 (09:00→20:21)
[2019-11-11] MEDS: COD LIVER OIL/ZINC OXIDE OINT 113 GM TUBE TP SCH ×2 (09:00→20:22)
[2019-11-11] MEDS: ENOXAPARIN SODIUM 40 MG/0.4 ML DISP.SYRIN SQ SCH (09:01)
[2019-11-11] MEDS: HYDROGEN PEROXIDE 3% 118 ML BOTTLE TP SCH ×2 (09:10→19:12)
[2019-11-11] MEDS: LOPERAMIDE HCL 2 MG/15 ML GT PRN (09:23)
[2019-11-11] MEDS: MINERAL OIL/PETROLAT OPHT OINT 3.5 GM TUBE EACHEYE SCH (20:21)
[2019-11-11] MEDS: PROTEIN SUPPLEMENT (PROSTAT) 30 ML LIQUID GT SCH (20:21)
[2019-11-11] MEDS: [UNRECOGNIZED DRUG - OTHER] GT SCH (20:21)
[2019-11-11 20:26] VITALS: BP 126/68
[2019-11-12] MEDS: POLYVINYL ALCOHOL OPHT DROPS 15 ML BOTTLE EACHEYE SCH ×6 (01:00→20:33)
[2019-11-12] MEDS: IPRATROPIUM BROMIDE 0.5 MG/2.5 ML NEBU NEB SCH ×4 (01:40→19:07)
[2019-11-12] MEDS: ALBUTEROL SULFATE 2.5 MG/3 ML NEBU NEB SCH ×4 (01:40→19:07)
[2019-11-12] MEDS: [UNRECOGNIZED DRUG - OTHER] GT SCH (05:14)
[2019-11-12] MEDS: OSMOLITE 1.2 CAL 1,000 ML LIQUID GT PRN ×3 (05:15→23:11)
[2019-11-12] MEDS: CARBIDOPA/LEVODOPA 25-100MG TABLET GT SCH ×3 (05:15→21:10)
[2019-11-12] MEDS: LEVOTHYROXINE SODIUM 50 MCG TABLET GT SCH (05:15)
[2019-11-12] MEDS: FAMOTIDINE 20 MG TABLET GT SCH (05:30)
[2019-11-12 07:49] VITALS: BP 127/52
[2019-11-12] MEDS: HYDROGEN PEROXIDE 3% 118 ML BOTTLE TP SCH ×2 (08:49→21:10)
[2019-11-12] MEDS: CALCIUM CARB/VITAMIN D 600-400 MG TABLET GT SCH ×2 (09:21→20:33)
[2019-11-12] MEDS: [UNRECOGNIZED DRUG - OTHER] GT SCH (09:22)
[2019-11-12] MEDS: COD LIVER OIL/ZINC OXIDE OINT 113 GM TUBE TP SCH ×2 (09:22→20:33)
[2019-11-12] MEDS: ENOXAPARIN SODIUM 40 MG/0.4 ML DISP.SYRIN SQ SCH (09:23)
[2019-11-12 20:20] VITALS: BP 136/64
[2019-11-12] MEDS: NYSTATIN CREAM 30 GM TUBE TP SCH (20:33)
[2019-11-12] MEDS: [UNRECOGNIZED DRUG - OTHER] GT SCH (20:33)
[2019-11-12] MEDS: TRIAMCINOLONE ACET 0.1% CREAM 15 GM TUBE TP SCH (20:33)
[2019-11-12] MEDS: PROTEIN SUPPLEMENT (PROSTAT) 30 ML LIQUID GT SCH (20:33)
[2019-11-12] MEDS: MINERAL OIL/PETROLAT OPHT OINT 3.5 GM TUBE EACHEYE SCH (21:10)
[2019-11-13] MEDS: POLYVINYL ALCOHOL OPHT DROPS 15 ML BOTTLE EACHEYE SCH ×6 (00:08→20:24)
[2019-11-13] MEDS: ALBUTEROL SULFATE 2.5 MG/3 ML NEBU NEB SCH ×4 (00:31→19:21)
[2019-11-13] MEDS: IPRATROPIUM BROMIDE 0.5 MG/2.5 ML NEBU NEB SCH ×4 (00:31→19:21)
[2019-11-13] MEDS: FAMOTIDINE 20 MG TABLET GT SCH (05:35)
[2019-11-13] MEDS: [UNRECOGNIZED DRUG - OTHER] GT SCH (05:35)
[2019-11-13] MEDS: CARBIDOPA/LEVODOPA 25-100MG TABLET GT SCH ×3 (05:35→21:00)
[2019-11-13] MEDS: LEVOTHYROXINE SODIUM 50 MCG TABLET GT SCH (05:35)
[2019-11-13 06:00] VITALS: BP 128/68
[2019-11-13 08:09] VITALS: BP 123/56
[2019-11-13] MEDS: ENOXAPARIN SODIUM 40 MG/0.4 ML DISP.SYRIN SQ SCH (09:00)
[2019-11-13] MEDS: HYDROGEN PEROXIDE 3% 118 ML BOTTLE TP SCH ×2 (09:33→20:51)
[2019-11-13] MEDS: CALCIUM CARB/VITAMIN D 600-400 MG TABLET GT SCH ×2 (09:40→20:24)
[2019-11-13] MEDS: [UNRECOGNIZED DRUG - OTHER] GT SCH (09:40)
[2019-11-13] MEDS: COD LIVER OIL/ZINC OXIDE OINT 113 GM TUBE TP SCH ×2 (09:42→20:24)
[2019-11-13] MEDS: NYSTATIN CREAM 30 GM TUBE TP SCH ×2 (09:43→20:24)
[2019-11-13] MEDS: TRIAMCINOLONE ACET 0.1% CREAM 15 GM TUBE TP SCH ×2 (09:43→20:24)
[2019-11-13] MEDS: OSMOLITE 1.2 CAL 1,000 ML LIQUID GT PRN (17:45)
[2019-11-13 20:20] VITALS: BP 122/56
[2019-11-13] MEDS: [UNRECOGNIZED DRUG - OTHER] GT SCH (20:24)
[2019-11-13] MEDS: PROTEIN SUPPLEMENT (PROSTAT) 30 ML LIQUID GT SCH (20:24)
[2019-11-13] MEDS: MINERAL OIL/PETROLAT OPHT OINT 3.5 GM TUBE EACHEYE SCH (20:59)
[2019-11-14] MEDS: POLYVINYL ALCOHOL OPHT DROPS 15 ML BOTTLE EACHEYE SCH ×6 (00:04→20:42)
[2019-11-14] MEDS: ALBUTEROL SULFATE 2.5 MG/3 ML NEBU NEB SCH ×4 (01:07→19:21)
[2019-11-14] MEDS: IPRATROPIUM BROMIDE 0.5 MG/2.5 ML NEBU NEB SCH ×4 (01:07→19:21)
[2019-11-14] MEDS: [UNRECOGNIZED DRUG - OTHER] GT SCH (05:31)
[2019-11-14] MEDS: CARBIDOPA/LEVODOPA 25-100MG TABLET GT SCH ×3 (05:31→21:21)
[2019-11-14] MEDS: LEVOTHYROXINE SODIUM 50 MCG TABLET GT SCH (05:31)
[2019-11-14] MEDS: FAMOTIDINE 20 MG TABLET GT SCH (05:31)
[2019-11-14] MEDS: HYDROGEN PEROXIDE 3% 118 ML BOTTLE TP SCH ×2 (07:34→21:26)
[2019-11-14 07:54] VITALS: BP 130/61
[2019-11-14] MEDS: CALCIUM CARB/VITAMIN D 600-400 MG TABLET GT SCH ×2 (09:05→20:42)
[2019-11-14] MEDS: ENOXAPARIN SODIUM 40 MG/0.4 ML DISP.SYRIN SQ SCH (09:06)
[2019-11-14] MEDS: [UNRECOGNIZED DRUG - OTHER] GT SCH (09:06)
[2019-11-14] MEDS: NYSTATIN CREAM 30 GM TUBE TP SCH ×2 (09:08→20:42)
[2019-11-14] MEDS: COD LIVER OIL/ZINC OXIDE OINT 113 GM TUBE TP SCH ×2 (09:08→20:42)
[2019-11-14] MEDS: TRIAMCINOLONE ACET 0.1% CREAM 15 GM TUBE TP SCH ×2 (09:08→20:42)
[2019-11-14] MEDS: OSMOLITE 1.2 CAL 1,000 ML LIQUID GT PRN (12:47)
[2019-11-14 20:12] VITALS: BP_SYST 101; BP_SYST 125; BP_DIAS 60; BP_DIAS 68
[2019-11-14] MEDS: PROTEIN SUPPLEMENT (PROSTAT) 30 ML LIQUID GT SCH (20:42)
[2019-11-14] MEDS: [UNRECOGNIZED DRUG - OTHER] GT SCH (20:42)
[2019-11-14] MEDS: MINERAL OIL/PETROLAT OPHT OINT 3.5 GM TUBE EACHEYE SCH (21:21)
[2019-11-15] MEDS: POLYVINYL ALCOHOL OPHT DROPS 15 ML BOTTLE EACHEYE SCH ×6 (01:08→21:45)
[2019-11-15] MEDS: IPRATROPIUM BROMIDE 0.5 MG/2.5 ML NEBU NEB SCH ×4 (01:10→19:25)
[2019-11-15] MEDS: ALBUTEROL SULFATE 2.5 MG/3 ML NEBU NEB SCH ×4 (01:10→19:25)
[2019-11-15] MEDS: LEVOTHYROXINE SODIUM 50 MCG TABLET GT SCH (05:41)
[2019-11-15] MEDS: CARBIDOPA/LEVODOPA 25-100MG TABLET GT SCH ×3 (05:41→21:48)
[2019-11-15] MEDS: [UNRECOGNIZED DRUG - OTHER] GT SCH (05:41)
[2019-11-15] MEDS: FAMOTIDINE 20 MG TABLET GT SCH (05:41)
[2019-11-15 07:36] VITALS: BP 135/54
[2019-11-15] MEDS: HYDROGEN PEROXIDE 3% 118 ML BOTTLE TP SCH ×2 (08:05→21:45)
[2019-11-15] MEDS: CALCIUM CARB/VITAMIN D 600-400 MG TABLET GT SCH ×2 (08:47→21:45)
[2019-11-15] MEDS: [UNRECOGNIZED DRUG - OTHER] GT SCH (08:48)
[2019-11-15] MEDS: COD LIVER OIL/ZINC OXIDE OINT 113 GM TUBE TP SCH ×2 (08:49→21:47)
[2019-11-15] MEDS: TRIAMCINOLONE ACET 0.1% CREAM 15 GM TUBE TP SCH ×2 (08:50→21:47)
[2019-11-15] MEDS: NYSTATIN CREAM 30 GM TUBE TP SCH ×2 (08:50→21:47)
[2019-11-15] MEDS: ENOXAPARIN SODIUM 40 MG/0.4 ML DISP.SYRIN SQ SCH (09:05)
[2019-11-15] MEDS: OSMOLITE 1.2 CAL 1,000 ML LIQUID GT PRN (10:21)
[2019-11-15 12:00] VITALS: BP 114/66
--- NOTE | 2019-11-15 15:00 | NUR ---
video chat done with pt's daughter and son.
[2019-11-15] MEDS: diphenhydrAMINE 25 MG/10 ML UDC GT PRN (15:07)
[2019-11-15 16:00] VITALS: BP 120/65
[2019-11-15 20:02] VITALS: BP 127/55
[2019-11-15] MEDS: MINERAL OIL/PETROLAT OPHT OINT 3.5 GM TUBE EACHEYE SCH (21:45)
[2019-11-15] MEDS: PROTEIN SUPPLEMENT (PROSTAT) 30 ML LIQUID GT SCH (21:47)
[2019-11-15] MEDS: [UNRECOGNIZED DRUG - OTHER] GT SCH (21:47)
[2019-11-16] MEDS: POLYVINYL ALCOHOL OPHT DROPS 15 ML BOTTLE EACHEYE SCH ×6 (01:00→20:57)
[2019-11-16] MEDS: IPRATROPIUM BROMIDE 0.5 MG/2.5 ML NEBU NEB SCH ×4 (01:10→19:10)
[2019-11-16] MEDS: ALBUTEROL SULFATE 2.5 MG/3 ML NEBU NEB SCH ×4 (01:10→19:10)
[2019-11-16] MEDS: OSMOLITE 1.2 CAL 1,000 ML LIQUID GT PRN (05:00)
[2019-11-16] MEDS: [UNRECOGNIZED DRUG - OTHER] GT SCH (05:02)
[2019-11-16] MEDS: FAMOTIDINE 20 MG TABLET GT SCH (05:03)
[2019-11-16] MEDS: LEVOTHYROXINE SODIUM 50 MCG TABLET GT SCH (05:03)
[2019-11-16] MEDS: CARBIDOPA/LEVODOPA 25-100MG TABLET GT SCH ×3 (05:03→21:01)
[2019-11-16 07:25] VITALS: BP 146/49
[2019-11-16] MEDS: HYDROGEN PEROXIDE 3% 118 ML BOTTLE TP SCH ×2 (08:37→20:55)
[2019-11-16] MEDS: CALCIUM CARB/VITAMIN D 600-400 MG TABLET GT SCH ×2 (08:52→20:59)
[2019-11-16] MEDS: [UNRECOGNIZED DRUG - OTHER] GT SCH (08:53)
[2019-11-16] MEDS: ENOXAPARIN SODIUM 40 MG/0.4 ML DISP.SYRIN SQ SCH (08:58)
[2019-11-16] MEDS: NYSTATIN CREAM 30 GM TUBE TP SCH ×2 (08:59→21:01)
[2019-11-16] MEDS: TRIAMCINOLONE ACET 0.1% CREAM 15 GM TUBE TP SCH ×2 (08:59→21:01)
[2019-11-16] MEDS: COD LIVER OIL/ZINC OXIDE OINT 113 GM TUBE TP SCH ×2 (08:59→21:01)
--- NOTE | 2019-11-16 16:43 | NUR ---
MARINO spoke with Marlyn at Dr. Raymond's office, , and scheduled patient's annual optometry appointment for 12/02/2019. MARINO informed patient's daughter Kimberlee and son Adalberto, via email, about the date for the optometry appointment.
[2019-11-16 20:10] VITALS: BP 130/59
[2019-11-16] MEDS: MINERAL OIL/PETROLAT OPHT OINT 3.5 GM TUBE EACHEYE SCH (20:59)
[2019-11-16] MEDS: PROTEIN SUPPLEMENT (PROSTAT) 30 ML LIQUID GT SCH (21:01)
[2019-11-16] MEDS: [UNRECOGNIZED DRUG - OTHER] GT SCH (21:01)
[2019-11-17] MEDS: ALBUTEROL SULFATE 2.5 MG/3 ML NEBU NEB SCH ×4 (00:44→19:15)
[2019-11-17] MEDS: IPRATROPIUM BROMIDE 0.5 MG/2.5 ML NEBU NEB SCH ×4 (00:44→19:15)
[2019-11-17] MEDS: POLYVINYL ALCOHOL OPHT DROPS 15 ML BOTTLE EACHEYE SCH ×6 (01:00→20:47)
[2019-11-17] MEDS: OSMOLITE 1.2 CAL 1,000 ML LIQUID GT PRN (04:43)
[2019-11-17] MEDS: FAMOTIDINE 20 MG TABLET GT SCH (06:09)
[2019-11-17] MEDS: LEVOTHYROXINE SODIUM 50 MCG TABLET GT SCH (06:09)
[2019-11-17] MEDS: ALENDRONATE GT SCH (06:09)
[2019-11-17] MEDS: CARBIDOPA/LEVODOPA 25-100MG TABLET GT SCH ×3 (06:09→22:12)
[2019-11-17] MEDS: [UNRECOGNIZED DRUG - OTHER] GT SCH (06:09)
[2019-11-17 07:22] VITALS: BP 122/56
[2019-11-17] MEDS: HYDROGEN PEROXIDE 3% 118 ML BOTTLE TP SCH ×2 (07:35→19:15)
[2019-11-17] MEDS: CALCIUM CARB/VITAMIN D 600-400 MG TABLET GT SCH ×2 (08:37→20:48)
[2019-11-17] MEDS: [UNRECOGNIZED DRUG - OTHER] GT SCH (08:37)
[2019-11-17] MEDS: COD LIVER OIL/ZINC OXIDE OINT 113 GM TUBE TP SCH ×2 (08:39→20:49)
[2019-11-17] MEDS: TRIAMCINOLONE ACET 0.1% CREAM 15 GM TUBE TP SCH ×2 (08:39→20:49)
[2019-11-17] MEDS: ENOXAPARIN SODIUM 40 MG/0.4 ML DISP.SYRIN SQ SCH (08:39)
[2019-11-17] MEDS: NYSTATIN CREAM 30 GM TUBE TP SCH ×2 (08:40→20:49)
[2019-11-17 20:12] VITALS: BP 127/60
[2019-11-17] MEDS: MINERAL OIL/PETROLAT OPHT OINT 3.5 GM TUBE EACHEYE SCH (20:48)
[2019-11-17] MEDS: [UNRECOGNIZED DRUG - OTHER] GT SCH (20:48)
[2019-11-17] MEDS: PROTEIN SUPPLEMENT (PROSTAT) 30 ML LIQUID GT SCH (20:48)
[2019-11-18] MEDS: IPRATROPIUM BROMIDE 0.5 MG/2.5 ML NEBU NEB SCH ×4 (00:48→19:23)
[2019-11-18] MEDS: ALBUTEROL SULFATE 2.5 MG/3 ML NEBU NEB SCH ×4 (00:48→19:23)
[2019-11-18] MEDS: POLYVINYL ALCOHOL OPHT DROPS 15 ML BOTTLE EACHEYE SCH ×6 (01:37→20:49)
[2019-11-18] MEDS: OSMOLITE 1.2 CAL 1,000 ML LIQUID GT PRN (01:50)
[2019-11-18] MEDS: FAMOTIDINE 20 MG TABLET GT SCH (05:52)
[2019-11-18] MEDS: CARBIDOPA/LEVODOPA 25-100MG TABLET GT SCH ×3 (05:52→21:09)
[2019-11-18] MEDS: [UNRECOGNIZED DRUG - OTHER] GT SCH (05:52)
[2019-11-18] MEDS: LEVOTHYROXINE SODIUM 50 MCG TABLET GT SCH (05:52)
[2019-11-18] MEDS: HYDROGEN PEROXIDE 3% 118 ML BOTTLE TP SCH ×2 (07:33→21:34)
[2019-11-18 07:36] VITALS: BP 133/64
[2019-11-18] MEDS: CALCIUM CARB/VITAMIN D 600-400 MG TABLET GT SCH ×2 (08:41→20:50)
[2019-11-18] MEDS: [UNRECOGNIZED DRUG - OTHER] GT SCH (08:41)
[2019-11-18] MEDS: COD LIVER OIL/ZINC OXIDE OINT 113 GM TUBE TP SCH ×2 (08:42→20:50)
[2019-11-18] MEDS: ENOXAPARIN SODIUM 40 MG/0.4 ML DISP.SYRIN SQ SCH (08:42)
[2019-11-18] MEDS: TRIAMCINOLONE ACET 0.1% CREAM 15 GM TUBE TP SCH ×2 (08:43→20:50)
[2019-11-18] MEDS: NYSTATIN CREAM 30 GM TUBE TP SCH ×2 (08:43→20:51)
[2019-11-18 20:11] VITALS: BP 112/65
[2019-11-18] MEDS: [UNRECOGNIZED DRUG - OTHER] GT SCH (20:50)
[2019-11-18] MEDS: MINERAL OIL/PETROLAT OPHT OINT 3.5 GM TUBE EACHEYE SCH (20:50)
[2019-11-18] MEDS: PROTEIN SUPPLEMENT (PROSTAT) 30 ML LIQUID GT SCH (20:50)
[2019-11-19] MEDS: IPRATROPIUM BROMIDE 0.5 MG/2.5 ML NEBU NEB SCH ×4 (00:38→19:41)
[2019-11-19] MEDS: ALBUTEROL SULFATE 2.5 MG/3 ML NEBU NEB SCH ×4 (00:38→19:41)
[2019-11-19] MEDS: POLYVINYL ALCOHOL OPHT DROPS 15 ML BOTTLE EACHEYE SCH ×6 (01:37→21:01)
[2019-11-19] MEDS: LEVOTHYROXINE SODIUM 50 MCG TABLET GT SCH (05:43)
[2019-11-19] MEDS: [UNRECOGNIZED DRUG - OTHER] GT SCH (05:43)
[2019-11-19] MEDS: CARBIDOPA/LEVODOPA 25-100MG TABLET GT SCH ×3 (05:43→21:02)
[2019-11-19] MEDS: FAMOTIDINE 20 MG TABLET GT SCH (05:43)
[2019-11-19 07:37] VITALS: BP 129/65
[2019-11-19] MEDS: CALCIUM CARB/VITAMIN D 600-400 MG TABLET GT SCH ×2 (08:52→21:01)
[2019-11-19] MEDS: [UNRECOGNIZED DRUG - OTHER] GT SCH (08:52)
[2019-11-19] MEDS: ENOXAPARIN SODIUM 40 MG/0.4 ML DISP.SYRIN SQ SCH (08:52)
[2019-11-19] MEDS: NYSTATIN CREAM 30 GM TUBE TP SCH ×2 (08:53→21:02)
[2019-11-19] MEDS: COD LIVER OIL/ZINC OXIDE OINT 113 GM TUBE TP SCH ×2 (08:53→21:02)
[2019-11-19] MEDS: TRIAMCINOLONE ACET 0.1% CREAM 15 GM TUBE TP SCH ×2 (08:53→21:02)
[2019-11-19] MEDS: HYDROGEN PEROXIDE 3% 118 ML BOTTLE TP SCH ×2 (09:32→21:30)
--- NOTE | 2019-11-19 16:15 | NUR ---
SW spoke with patient's daughter Kimberlee today [phone]. SW checked in with Kimberlee to see how she was feeling. Kimberlee discussed some of the psychosocial stressors she and her family were experiencing associated with the ongoing visitation restrictions and the pandemic. SW allowed time for Kimberlee to express her thoughts and feelings. SW validated Kimberlee's feelings, and provided supportive counseling along with education on the emotional impact a pandemic can have on individuals. Education was provided about coping with anxiety, stress, fear, and worry related to the pandemic. Coping strategies were explored and identified by Kimberlee. SW provided support and encouragement. SW to continue to remain available to patient and patient's family, as needed.
[2019-11-19] MEDS: MINERAL OIL/PETROLAT OPHT OINT 3.5 GM TUBE EACHEYE SCH (21:01)
[2019-11-19] MEDS: PROTEIN SUPPLEMENT (PROSTAT) 30 ML LIQUID GT SCH (21:01)
[2019-11-19] MEDS: [UNRECOGNIZED DRUG - OTHER] GT SCH (21:01)
[2019-11-19 22:24] VITALS: BP 127/61
[2019-11-20] MEDS: POLYVINYL ALCOHOL OPHT DROPS 15 ML BOTTLE EACHEYE SCH ×6 (01:10→21:12)
[2019-11-20] MEDS: ALBUTEROL SULFATE 2.5 MG/3 ML NEBU NEB SCH ×4 (01:30→19:20)
[2019-11-20] MEDS: IPRATROPIUM BROMIDE 0.5 MG/2.5 ML NEBU NEB SCH ×4 (01:30→19:20)
[2019-11-20] MEDS: LEVOTHYROXINE SODIUM 50 MCG TABLET GT SCH (06:00)
[2019-11-20] MEDS: [UNRECOGNIZED DRUG - OTHER] GT SCH (06:00)
[2019-11-20] MEDS: CARBIDOPA/LEVODOPA 25-100MG TABLET GT SCH ×3 (06:00→21:13)
[2019-11-20] MEDS: FAMOTIDINE 20 MG TABLET GT SCH (07:16)
[2019-11-20 07:37] VITALS: BP 116/64
[2019-11-20] MEDS: [UNRECOGNIZED DRUG - OTHER] GT SCH (08:47)
[2019-11-20] MEDS: CALCIUM CARB/VITAMIN D 600-400 MG TABLET GT SCH ×2 (08:47→21:13)
[2019-11-20] MEDS: TRIAMCINOLONE ACET 0.1% CREAM 15 GM TUBE TP SCH ×2 (08:48→21:13)
[2019-11-20] MEDS: NYSTATIN CREAM 30 GM TUBE TP SCH ×2 (08:48→21:13)
[2019-11-20] MEDS: ENOXAPARIN SODIUM 40 MG/0.4 ML DISP.SYRIN SQ SCH (08:48)
[2019-11-20] MEDS: COD LIVER OIL/ZINC OXIDE OINT 113 GM TUBE TP SCH ×2 (08:48→21:13)
[2019-11-20] MEDS: HYDROGEN PEROXIDE 3% 118 ML BOTTLE TP SCH ×2 (09:00→21:13)
[2019-11-20] MEDS: OSMOLITE 1.2 CAL 1,000 ML LIQUID GT PRN (18:21)
[2019-11-20] MEDS: MINERAL OIL/PETROLAT OPHT OINT 3.5 GM TUBE EACHEYE SCH (21:12)
[2019-11-20] MEDS: [UNRECOGNIZED DRUG - OTHER] GT SCH (21:13)
[2019-11-20] MEDS: PROTEIN SUPPLEMENT (PROSTAT) 30 ML LIQUID GT SCH (21:13)
[2019-11-20 22:20] VITALS: BP 120/48
[2019-11-21] MEDS: POLYVINYL ALCOHOL OPHT DROPS 15 ML BOTTLE EACHEYE SCH ×6 (01:00→21:23)
[2019-11-21] MEDS: ALBUTEROL SULFATE 2.5 MG/3 ML NEBU NEB SCH ×4 (01:10→19:20)
[2019-11-21] MEDS: IPRATROPIUM BROMIDE 0.5 MG/2.5 ML NEBU NEB SCH ×4 (01:10→19:20)
[2019-11-21] MEDS: [UNRECOGNIZED DRUG - OTHER] GT SCH (05:38)
[2019-11-21] MEDS: CARBIDOPA/LEVODOPA 25-100MG TABLET GT SCH ×3 (05:38→21:26)
[2019-11-21] MEDS: LEVOTHYROXINE SODIUM 50 MCG TABLET GT SCH (05:38)
[2019-11-21] MEDS: FAMOTIDINE 20 MG TABLET GT SCH (05:38)
[2019-11-21 07:30] VITALS: BP 138/54
[2019-11-21] MEDS: HYDROGEN PEROXIDE 3% 118 ML BOTTLE TP SCH ×2 (08:11→21:11)
[2019-11-21] MEDS: [UNRECOGNIZED DRUG - OTHER] GT SCH (08:32)
[2019-11-21] MEDS: CALCIUM CARB/VITAMIN D 600-400 MG TABLET GT SCH ×2 (08:32→21:23)
[2019-11-21] MEDS: ENOXAPARIN SODIUM 40 MG/0.4 ML DISP.SYRIN SQ SCH (08:34)
[2019-11-21] MEDS: COD LIVER OIL/ZINC OXIDE OINT 113 GM TUBE TP SCH ×2 (08:35→21:25)
[2019-11-21] MEDS: NYSTATIN CREAM 30 GM TUBE TP SCH ×2 (08:35→21:26)
[2019-11-21] MEDS: TRIAMCINOLONE ACET 0.1% CREAM 15 GM TUBE TP SCH ×2 (08:35→21:26)
[2019-11-21] MEDS: OSMOLITE 1.2 CAL 1,000 ML LIQUID GT PRN (19:35)
[2019-11-21 20:12] VITALS: BP 124/49
[2019-11-21] MEDS: MINERAL OIL/PETROLAT OPHT OINT 3.5 GM TUBE EACHEYE SCH (21:23)
[2019-11-21] MEDS: [UNRECOGNIZED DRUG - OTHER] GT SCH (21:23)
[2019-11-21] MEDS: PROTEIN SUPPLEMENT (PROSTAT) 30 ML LIQUID GT SCH (21:24)
[2019-11-22] MEDS: ALBUTEROL SULFATE 2.5 MG/3 ML NEBU NEB SCH ×4 (01:10→19:20)
[2019-11-22] MEDS: IPRATROPIUM BROMIDE 0.5 MG/2.5 ML NEBU NEB SCH ×4 (01:10→19:20)
[2019-11-22] MEDS: POLYVINYL ALCOHOL OPHT DROPS 15 ML BOTTLE EACHEYE SCH ×6 (01:20→20:54)
[2019-11-22] MEDS: FAMOTIDINE 20 MG TABLET GT SCH (05:31)
[2019-11-22] MEDS: LEVOTHYROXINE SODIUM 50 MCG TABLET GT SCH (05:31)
[2019-11-22] MEDS: [UNRECOGNIZED DRUG - OTHER] GT SCH (05:31)
[2019-11-22] MEDS: CARBIDOPA/LEVODOPA 25-100MG TABLET GT SCH ×3 (05:31→22:15)
[2019-11-22 07:40] VITALS: BP 138/58
[2019-11-22] MEDS: HYDROGEN PEROXIDE 3% 118 ML BOTTLE TP SCH ×2 (07:59→21:33)
[2019-11-22] MEDS: CALCIUM CARB/VITAMIN D 600-400 MG TABLET GT SCH ×2 (08:20→20:54)
[2019-11-22] MEDS: [UNRECOGNIZED DRUG - OTHER] GT SCH (08:21)
[2019-11-22] MEDS: ENOXAPARIN SODIUM 40 MG/0.4 ML DISP.SYRIN SQ SCH (08:21)
[2019-11-22] MEDS: COD LIVER OIL/ZINC OXIDE OINT 113 GM TUBE TP SCH ×2 (08:22→20:58)
[2019-11-22] MEDS: TRIAMCINOLONE ACET 0.1% CREAM 15 GM TUBE TP SCH ×2 (08:22→20:58)
[2019-11-22] MEDS: NYSTATIN CREAM 30 GM TUBE TP SCH ×2 (08:22→20:58)
[2019-11-22] MEDS: OSMOLITE 1.2 CAL 1,000 ML LIQUID GT PRN (17:02)
[2019-11-22 20:01] VITALS: BP 135/64
[2019-11-22 20:40] VITALS: BP 122/80
[2019-11-22] MEDS: MINERAL OIL/PETROLAT OPHT OINT 3.5 GM TUBE EACHEYE SCH (20:54)
[2019-11-22] MEDS: [UNRECOGNIZED DRUG - OTHER] GT SCH (20:58)
[2019-11-22] MEDS: PROTEIN SUPPLEMENT (PROSTAT) 30 ML LIQUID GT SCH (20:58)
[2019-11-23] MEDS: POLYVINYL ALCOHOL OPHT DROPS 15 ML BOTTLE EACHEYE SCH ×6 (01:00→21:36)
[2019-11-23] MEDS: IPRATROPIUM BROMIDE 0.5 MG/2.5 ML NEBU NEB SCH ×4 (01:10→19:37)
[2019-11-23] MEDS: ALBUTEROL SULFATE 2.5 MG/3 ML NEBU NEB SCH ×4 (01:10→19:37)
[2019-11-23] MEDS: [UNRECOGNIZED DRUG - OTHER] GT SCH (05:40)
[2019-11-23] MEDS: CARBIDOPA/LEVODOPA 25-100MG TABLET GT SCH ×3 (05:40→21:37)
[2019-11-23] MEDS: LEVOTHYROXINE SODIUM 50 MCG TABLET GT SCH (05:40)
[2019-11-23] MEDS: FAMOTIDINE 20 MG TABLET GT SCH (05:40)
[2019-11-23] MEDS: HYDROGEN PEROXIDE 3% 118 ML BOTTLE TP SCH ×2 (07:15→20:49)
[2019-11-23 07:42] VITALS: BP 135/55
[2019-11-23] MEDS: [UNRECOGNIZED DRUG - OTHER] GT SCH (09:00)
[2019-11-23] MEDS: NYSTATIN CREAM 30 GM TUBE TP SCH ×2 (09:11→21:37)
[2019-11-23] MEDS: TRIAMCINOLONE ACET 0.1% CREAM 15 GM TUBE TP SCH ×2 (09:11→21:37)
[2019-11-23] MEDS: CALCIUM CARB/VITAMIN D 600-400 MG TABLET GT SCH ×2 (09:11→21:36)
[2019-11-23] MEDS: COD LIVER OIL/ZINC OXIDE OINT 113 GM TUBE TP SCH ×2 (09:11→21:37)
[2019-11-23] MEDS: ENOXAPARIN SODIUM 40 MG/0.4 ML DISP.SYRIN SQ SCH (09:21)
[2019-11-23 20:26] VITALS: BP 131/56
[2019-11-23] MEDS: MINERAL OIL/PETROLAT OPHT OINT 3.5 GM TUBE EACHEYE SCH (21:36)
[2019-11-23] MEDS: [UNRECOGNIZED DRUG - OTHER] GT SCH (21:37)
[2019-11-23] MEDS: PROTEIN SUPPLEMENT (PROSTAT) 30 ML LIQUID GT SCH (21:37)
[2019-11-24] MEDS: IPRATROPIUM BROMIDE 0.5 MG/2.5 ML NEBU NEB SCH ×4 (00:49→19:00)
[2019-11-24] MEDS: ALBUTEROL SULFATE 2.5 MG/3 ML NEBU NEB SCH ×4 (00:49→19:00)
[2019-11-24] MEDS: POLYVINYL ALCOHOL OPHT DROPS 15 ML BOTTLE EACHEYE SCH ×6 (01:51→21:37)
[2019-11-24] MEDS: CARBIDOPA/LEVODOPA 25-100MG TABLET GT SCH ×3 (06:26→21:42)
[2019-11-24] MEDS: ALENDRONATE GT SCH (06:26)
[2019-11-24] MEDS: FAMOTIDINE 20 MG TABLET GT SCH (06:26)
[2019-11-24] MEDS: LEVOTHYROXINE SODIUM 50 MCG TABLET GT SCH (06:26)
[2019-11-24] MEDS: [UNRECOGNIZED DRUG - OTHER] GT SCH (06:26)
[2019-11-24] MEDS: OSMOLITE 1.2 CAL 1,000 ML LIQUID GT PRN (07:22)
[2019-11-24 07:26] VITALS: BP 110/64
[2019-11-24] MEDS: ENOXAPARIN SODIUM 40 MG/0.4 ML DISP.SYRIN SQ SCH (08:34)
[2019-11-24] MEDS: CALCIUM CARB/VITAMIN D 600-400 MG TABLET GT SCH ×2 (08:41→21:39)
[2019-11-24] MEDS: [UNRECOGNIZED DRUG - OTHER] GT SCH (08:41)
[2019-11-24] MEDS: COD LIVER OIL/ZINC OXIDE OINT 113 GM TUBE TP SCH ×2 (08:41→21:39)
[2019-11-24] MEDS: NYSTATIN CREAM 30 GM TUBE TP SCH ×2 (08:42→21:40)
[2019-11-24] MEDS: TRIAMCINOLONE ACET 0.1% CREAM 15 GM TUBE TP SCH ×2 (08:42→21:39)
[2019-11-24] MEDS: HYDROGEN PEROXIDE 3% 118 ML BOTTLE TP SCH ×2 (09:29→20:59)
[2019-11-24 20:00] VITALS: BP 127/58
[2019-11-24] MEDS: MINERAL OIL/PETROLAT OPHT OINT 3.5 GM TUBE EACHEYE SCH (21:37)
[2019-11-24] MEDS: PROTEIN SUPPLEMENT (PROSTAT) 30 ML LIQUID GT SCH (21:42)
[2019-11-24] MEDS: [UNRECOGNIZED DRUG - OTHER] GT SCH (21:50)
[2019-11-25] MEDS: ALBUTEROL SULFATE 2.5 MG/3 ML NEBU NEB SCH ×4 (00:30→18:59)
[2019-11-25] MEDS: IPRATROPIUM BROMIDE 0.5 MG/2.5 ML NEBU NEB SCH ×4 (00:30→18:59)
[2019-11-25] MEDS: POLYVINYL ALCOHOL OPHT DROPS 15 ML BOTTLE EACHEYE SCH ×6 (01:07→20:16)
[2019-11-25] MEDS: OSMOLITE 1.2 CAL 1,000 ML LIQUID GT PRN (03:36)
[2019-11-25] MEDS: LEVOTHYROXINE SODIUM 50 MCG TABLET GT SCH (05:15)
[2019-11-25] MEDS: [UNRECOGNIZED DRUG - OTHER] GT SCH (05:15)
[2019-11-25] MEDS: CARBIDOPA/LEVODOPA 25-100MG TABLET GT SCH ×3 (05:15→22:24)
[2019-11-25] MEDS: FAMOTIDINE 20 MG TABLET GT SCH (05:33)
[2019-11-25 07:22] VITALS: BP 110/62
[2019-11-25] MEDS: CALCIUM CARB/VITAMIN D 600-400 MG TABLET GT SCH ×2 (08:35→20:16)
[2019-11-25] MEDS: [UNRECOGNIZED DRUG - OTHER] GT SCH (08:36)
[2019-11-25] MEDS: NYSTATIN CREAM 30 GM TUBE TP SCH ×2 (08:37→21:00)
[2019-11-25] MEDS: COD LIVER OIL/ZINC OXIDE OINT 113 GM TUBE TP SCH ×2 (08:37→20:16)
[2019-11-25] MEDS: TRIAMCINOLONE ACET 0.1% CREAM 15 GM TUBE TP SCH ×2 (08:37→21:00)
[2019-11-25] MEDS: ENOXAPARIN SODIUM 40 MG/0.4 ML DISP.SYRIN SQ SCH (08:39)
[2019-11-25] MEDS: HYDROGEN PEROXIDE 3% 118 ML BOTTLE TP SCH ×2 (09:29→20:47)
[2019-11-25 20:00] VITALS: BP 123/59
[2019-11-25] MEDS: PROTEIN SUPPLEMENT (PROSTAT) 30 ML LIQUID GT SCH (20:16)
[2019-11-25] MEDS: MINERAL OIL/PETROLAT OPHT OINT 3.5 GM TUBE EACHEYE SCH (20:16)
[2019-11-25] MEDS: [UNRECOGNIZED DRUG - OTHER] GT SCH (20:16)
[2019-11-26] MEDS: OSMOLITE 1.2 CAL 1,000 ML LIQUID GT PRN ×2 (00:18→18:17)
[2019-11-26] MEDS: IPRATROPIUM BROMIDE 0.5 MG/2.5 ML NEBU NEB SCH ×4 (00:49→19:20)
[2019-11-26] MEDS: POLYVINYL ALCOHOL OPHT DROPS 15 ML BOTTLE EACHEYE SCH ×6 (00:49→21:26)
[2019-11-26] MEDS: ALBUTEROL SULFATE 2.5 MG/3 ML NEBU NEB SCH ×4 (00:49→19:20)
[2019-11-26] MEDS: [UNRECOGNIZED DRUG - OTHER] GT SCH (05:09)
[2019-11-26] MEDS: LEVOTHYROXINE SODIUM 50 MCG TABLET GT SCH (05:09)
[2019-11-26] MEDS: CARBIDOPA/LEVODOPA 25-100MG TABLET GT SCH ×3 (05:09→21:28)
[2019-11-26] MEDS: FAMOTIDINE 20 MG TABLET GT SCH (05:55)
[2019-11-26 07:27] VITALS: BP 120/62
[2019-11-26] MEDS: [UNRECOGNIZED DRUG - OTHER] GT SCH (08:24)
[2019-11-26] MEDS: CALCIUM CARB/VITAMIN D 600-400 MG TABLET GT SCH ×2 (08:24→21:27)
[2019-11-26] MEDS: NYSTATIN CREAM 30 GM TUBE TP SCH (08:29)
[2019-11-26] MEDS: TRIAMCINOLONE ACET 0.1% CREAM 15 GM TUBE TP SCH (08:29)
[2019-11-26] MEDS: COD LIVER OIL/ZINC OXIDE OINT 113 GM TUBE TP SCH ×2 (08:29→21:28)
[2019-11-26] MEDS: ENOXAPARIN SODIUM 40 MG/0.4 ML DISP.SYRIN SQ SCH (08:29)
[2019-11-26] MEDS: HYDROGEN PEROXIDE 3% 118 ML BOTTLE TP SCH ×2 (09:50→21:13)
[2019-11-26] MEDS: diphenhydrAMINE 25 MG/10 ML UDC GT PRN (15:05)
[2019-11-26 20:31] VITALS: BP 130/62
[2019-11-26] MEDS: MINERAL OIL/PETROLAT OPHT OINT 3.5 GM TUBE EACHEYE SCH (21:26)
[2019-11-26] MEDS: [UNRECOGNIZED DRUG - OTHER] GT SCH (21:27)
[2019-11-26] MEDS: PROTEIN SUPPLEMENT (PROSTAT) 30 ML LIQUID GT SCH (21:28)
[2019-11-27] MEDS: IPRATROPIUM BROMIDE 0.5 MG/2.5 ML NEBU NEB SCH ×4 (00:35→19:40)
[2019-11-27] MEDS: ALBUTEROL SULFATE 2.5 MG/3 ML NEBU NEB SCH ×4 (00:35→19:40)
[2019-11-27] MEDS: POLYVINYL ALCOHOL OPHT DROPS 15 ML BOTTLE EACHEYE SCH ×6 (01:21→20:57)
[2019-11-27] MEDS: [UNRECOGNIZED DRUG - OTHER] GT SCH (05:29)
[2019-11-27] MEDS: CARBIDOPA/LEVODOPA 25-100MG TABLET GT SCH ×3 (05:29→21:02)
[2019-11-27] MEDS: LEVOTHYROXINE SODIUM 50 MCG TABLET GT SCH (05:29)
[2019-11-27] MEDS: FAMOTIDINE 20 MG TABLET GT SCH (05:30)
[2019-11-27 08:22] VITALS: BP 140/56
[2019-11-27] MEDS: CALCIUM CARB/VITAMIN D 600-400 MG TABLET GT SCH ×2 (08:26→20:57)
[2019-11-27] MEDS: [UNRECOGNIZED DRUG - OTHER] GT SCH (08:27)
[2019-11-27] MEDS: ENOXAPARIN SODIUM 40 MG/0.4 ML DISP.SYRIN SQ SCH (08:28)
[2019-11-27] MEDS: COD LIVER OIL/ZINC OXIDE OINT 113 GM TUBE TP SCH ×2 (08:28→20:58)
[2019-11-27] MEDS: HYDROGEN PEROXIDE 3% 118 ML BOTTLE TP SCH ×2 (09:00→21:40)
[2019-11-27] MEDS: diphenhydrAMINE 25 MG/10 ML UDC GT PRN (13:38)
[2019-11-27] MEDS: OSMOLITE 1.2 CAL 1,000 ML LIQUID GT PRN (17:59)
[2019-11-27 20:10] VITALS: BP 130/54
[2019-11-27] MEDS: MINERAL OIL/PETROLAT OPHT OINT 3.5 GM TUBE EACHEYE SCH (20:57)
[2019-11-27] MEDS: PROTEIN SUPPLEMENT (PROSTAT) 30 ML LIQUID GT SCH (20:58)
[2019-11-27] MEDS: [UNRECOGNIZED DRUG - OTHER] GT SCH (20:58)
[2019-11-28] MEDS: IPRATROPIUM BROMIDE 0.5 MG/2.5 ML NEBU NEB SCH ×4 (01:10→19:20)
[2019-11-28] MEDS: ALBUTEROL SULFATE 2.5 MG/3 ML NEBU NEB SCH ×4 (01:10→19:20)
[2019-11-28] MEDS: POLYVINYL ALCOHOL OPHT DROPS 15 ML BOTTLE EACHEYE SCH ×6 (01:13→21:45)
[2019-11-28] MEDS: CARBIDOPA/LEVODOPA 25-100MG TABLET GT SCH ×3 (05:50→21:46)
[2019-11-28] MEDS: FAMOTIDINE 20 MG TABLET GT SCH (05:50)
[2019-11-28] MEDS: LEVOTHYROXINE SODIUM 50 MCG TABLET GT SCH (05:50)
[2019-11-28] MEDS: [UNRECOGNIZED DRUG - OTHER] GT SCH (05:50)
[2019-11-28 07:38] VITALS: BP 118/62
[2019-11-28 08:04] VITALS: BP 126/64
[2019-11-28] MEDS: COD LIVER OIL/ZINC OXIDE OINT 113 GM TUBE TP SCH ×2 (09:04→21:46)
[2019-11-28] MEDS: CALCIUM CARB/VITAMIN D 600-400 MG TABLET GT SCH ×2 (09:04→21:46)
[2019-11-28] MEDS: [UNRECOGNIZED DRUG - OTHER] GT SCH (09:04)
[2019-11-28] MEDS: ENOXAPARIN SODIUM 40 MG/0.4 ML DISP.SYRIN SQ SCH (09:08)
[2019-11-28] MEDS: HYDROGEN PEROXIDE 3% 118 ML BOTTLE TP SCH ×2 (09:40→21:22)
[2019-11-28] MEDS: OSMOLITE 1.2 CAL 1,000 ML LIQUID GT PRN (14:55)
[2019-11-28 20:22] VITALS: BP 125/60
[2019-11-28] MEDS: MINERAL OIL/PETROLAT OPHT OINT 3.5 GM TUBE EACHEYE SCH (21:45)
[2019-11-28] MEDS: PROTEIN SUPPLEMENT (PROSTAT) 30 ML LIQUID GT SCH (21:46)
[2019-11-28] MEDS: [UNRECOGNIZED DRUG - OTHER] GT SCH (21:46)
[2019-11-29] MEDS: IPRATROPIUM BROMIDE 0.5 MG/2.5 ML NEBU NEB SCH ×4 (01:10→19:20)
[2019-11-29] MEDS: ALBUTEROL SULFATE 2.5 MG/3 ML NEBU NEB SCH ×4 (01:10→19:20)
[2019-11-29] MEDS: POLYVINYL ALCOHOL OPHT DROPS 15 ML BOTTLE EACHEYE SCH ×6 (01:54→20:42)
--- NOTE | 2019-11-29 02:58 | NUR ---
Renewed treatment to back of neck rash X14 more days. Rash still noted at the patient's back of the neck, no bleeding , kept area clean and dry.
[2019-11-29] MEDS: CARBIDOPA/LEVODOPA 25-100MG TABLET GT SCH ×3 (05:59→21:19)
[2019-11-29] MEDS: [UNRECOGNIZED DRUG - OTHER] GT SCH (05:59)
[2019-11-29] MEDS: LEVOTHYROXINE SODIUM 50 MCG TABLET GT SCH (05:59)
[2019-11-29] MEDS: FAMOTIDINE 20 MG TABLET GT SCH (05:59)
[2019-11-29 07:37] VITALS: BP 135/53
[2019-11-29] MEDS: TRIAMCINOLONE ACET 0.1% CREAM 15 GM TUBE TP SCH ×2 (09:06→20:43)
[2019-11-29] MEDS: COD LIVER OIL/ZINC OXIDE OINT 113 GM TUBE TP SCH ×2 (09:06→20:43)
[2019-11-29] MEDS: CALCIUM CARB/VITAMIN D 600-400 MG TABLET GT SCH ×2 (09:06→20:42)
[2019-11-29] MEDS: [UNRECOGNIZED DRUG - OTHER] GT SCH (09:06)
[2019-11-29] MEDS: NYSTATIN CREAM 30 GM TUBE TOP SCH ×2 (09:06→20:43)
[2019-11-29] MEDS: ENOXAPARIN SODIUM 40 MG/0.4 ML DISP.SYRIN SQ SCH (09:07)
[2019-11-29] MEDS: HYDROGEN PEROXIDE 3% 118 ML BOTTLE TP SCH ×2 (09:15→21:39)
[2019-11-29 20:31] VITALS: BP 118/51
[2019-11-29] MEDS: MINERAL OIL/PETROLAT OPHT OINT 3.5 GM TUBE EACHEYE SCH (20:42)
[2019-11-29] MEDS: [UNRECOGNIZED DRUG - OTHER] GT SCH (20:42)
[2019-11-29] MEDS: PROTEIN SUPPLEMENT (PROSTAT) 30 ML LIQUID GT SCH (20:43)
[2019-11-30] MEDS: POLYVINYL ALCOHOL OPHT DROPS 15 ML BOTTLE EACHEYE SCH ×6 (00:38→20:49)
[2019-11-30] MEDS: ALBUTEROL SULFATE 2.5 MG/3 ML NEBU NEB SCH ×4 (01:05→19:20)
[2019-11-30] MEDS: IPRATROPIUM BROMIDE 0.5 MG/2.5 ML NEBU NEB SCH ×4 (01:05→19:20)
[2019-11-30] MEDS: OSMOLITE 1.2 CAL 1,000 ML LIQUID GT PRN (06:14)
[2019-11-30] MEDS: LEVOTHYROXINE SODIUM 50 MCG TABLET GT SCH (06:14)
[2019-11-30] MEDS: CARBIDOPA/LEVODOPA 25-100MG TABLET GT SCH ×3 (06:14→22:10)
[2019-11-30] MEDS: [UNRECOGNIZED DRUG - OTHER] GT SCH (06:14)
[2019-11-30] MEDS: FAMOTIDINE 20 MG TABLET GT SCH (06:14)
[2019-11-30 07:31] VITALS: BP 134/74
[2019-11-30] MEDS: HYDROGEN PEROXIDE 3% 118 ML BOTTLE TP SCH ×2 (08:27→21:03)
[2019-11-30] MEDS: [UNRECOGNIZED DRUG - OTHER] GT SCH (08:34)
[2019-11-30] MEDS: CALCIUM CARB/VITAMIN D 600-400 MG TABLET GT SCH ×2 (08:34→20:49)
[2019-11-30] MEDS: NYSTATIN CREAM 30 GM TUBE TOP SCH ×2 (08:40→20:50)
[2019-11-30] MEDS: ENOXAPARIN SODIUM 40 MG/0.4 ML DISP.SYRIN SQ SCH (08:40)
[2019-11-30] MEDS: COD LIVER OIL/ZINC OXIDE OINT 113 GM TUBE TP SCH ×2 (08:40→20:50)
[2019-11-30] MEDS: TRIAMCINOLONE ACET 0.1% CREAM 15 GM TUBE TP SCH ×2 (08:41→20:50)
--- NOTE | 2019-11-30 20:07 | NUR ---
Pt's Daughter Kimberlee notified Covid 19 test,was done today,Per daughter is okay to give Flu shot to her mother.
[2019-11-30] MEDS: PROTEIN SUPPLEMENT (PROSTAT) 30 ML LIQUID GT SCH (20:49)
[2019-11-30] MEDS: MINERAL OIL/PETROLAT OPHT OINT 3.5 GM TUBE EACHEYE SCH (20:49)
[2019-11-30] MEDS: [UNRECOGNIZED DRUG - OTHER] GT SCH (20:49)
[2019-11-30 20:52] VITALS: BP 142/46
[2019-12-01] MEDS: ALBUTEROL SULFATE 2.5 MG/3 ML NEBU NEB SCH ×4 (00:48→19:27)
[2019-12-01] MEDS: IPRATROPIUM BROMIDE 0.5 MG/2.5 ML NEBU NEB SCH ×4 (00:48→19:27)
[2019-12-01] MEDS: POLYVINYL ALCOHOL OPHT DROPS 15 ML BOTTLE EACHEYE SCH ×6 (01:00→20:53)
[2019-12-01] MEDS: OSMOLITE 1.2 CAL 1,000 ML LIQUID GT PRN (05:00)
[2019-12-01] MEDS: CARBIDOPA/LEVODOPA 25-100MG TABLET GT SCH ×3 (06:05→21:01)
[2019-12-01] MEDS: [UNRECOGNIZED DRUG - OTHER] GT SCH (06:05)
[2019-12-01] MEDS: ALENDRONATE GT SCH (06:05)
[2019-12-01] MEDS: LEVOTHYROXINE SODIUM 50 MCG TABLET GT SCH (06:05)
[2019-12-01] MEDS: FAMOTIDINE 20 MG TABLET GT SCH (06:05)
[2019-12-01 07:33] VITALS: BP 121/54
[2019-12-01] MEDS: HYDROGEN PEROXIDE 3% 118 ML BOTTLE TP SCH ×2 (08:40→19:27)
[2019-12-01] MEDS: CALCIUM CARB/VITAMIN D 600-400 MG TABLET GT SCH ×2 (08:44→20:59)
[2019-12-01] MEDS: NYSTATIN CREAM 30 GM TUBE TOP SCH ×2 (08:44→21:01)
[2019-12-01] MEDS: [UNRECOGNIZED DRUG - OTHER] GT SCH (08:44)
[2019-12-01] MEDS: COD LIVER OIL/ZINC OXIDE OINT 113 GM TUBE TP SCH ×2 (08:45→21:01)
[2019-12-01] MEDS: TRIAMCINOLONE ACET 0.1% CREAM 15 GM TUBE TP SCH ×2 (08:45→21:01)
[2019-12-01] MEDS: ENOXAPARIN SODIUM 40 MG/0.4 ML DISP.SYRIN SQ SCH (08:46)
--- NOTE | 2019-12-01 12:19 | NUR ---
SW emailed patient's daughter Kimberlee and son Adalberto to let them know that the next IDT meeting for the patient is scheduled for 12/07/2019 at 11am. SW asked Kimberlee and Adalberto to let this SW know if they would like to participate in the meeting through speaker phone.
--- NOTE | 2019-12-01 18:45 | NUR ---
Pt's daughter Kimberlee was notified about the result for Covid19 test was negative.
[2019-12-01 20:27] VITALS: BP 120/53
[2019-12-01] MEDS: MINERAL OIL/PETROLAT OPHT OINT 3.5 GM TUBE EACHEYE SCH (20:59)
[2019-12-01] MEDS: PROTEIN SUPPLEMENT (PROSTAT) 30 ML LIQUID GT SCH (21:01)
[2019-12-01] MEDS: [UNRECOGNIZED DRUG - OTHER] GT SCH (21:01)
[2019-12-02] MEDS: ALBUTEROL SULFATE 2.5 MG/3 ML NEBU NEB SCH ×4 (00:35→19:45)
[2019-12-02] MEDS: IPRATROPIUM BROMIDE 0.5 MG/2.5 ML NEBU NEB SCH ×4 (00:35→19:45)
[2019-12-02] MEDS: POLYVINYL ALCOHOL OPHT DROPS 15 ML BOTTLE EACHEYE SCH ×6 (01:14→21:29)
[2019-12-02] MEDS: OSMOLITE 1.2 CAL 1,000 ML LIQUID GT PRN (02:00)
[2019-12-02] MEDS: diphenhydrAMINE 25 MG/10 ML UDC GT PRN (04:00)
[2019-12-02] MEDS: [UNRECOGNIZED DRUG - OTHER] GT SCH (06:07)
[2019-12-02] MEDS: FAMOTIDINE 20 MG TABLET GT SCH (06:07)
[2019-12-02] MEDS: LEVOTHYROXINE SODIUM 50 MCG TABLET GT SCH (06:07)
[2019-12-02] MEDS: CARBIDOPA/LEVODOPA 25-100MG TABLET GT SCH ×3 (06:07→21:33)
[2019-12-02] MEDS: HYDROGEN PEROXIDE 3% 118 ML BOTTLE TP SCH ×2 (07:19→21:29)
[2019-12-02 07:39] VITALS: BP 121/61
[2019-12-02] MEDS: ENOXAPARIN SODIUM 40 MG/0.4 ML DISP.SYRIN SQ SCH (08:23)
[2019-12-02] MEDS: COD LIVER OIL/ZINC OXIDE OINT 113 GM TUBE TP SCH ×2 (08:32→21:32)
[2019-12-02] MEDS: NYSTATIN CREAM 30 GM TUBE TOP SCH ×2 (08:32→21:32)
[2019-12-02] MEDS: TRIAMCINOLONE ACET 0.1% CREAM 15 GM TUBE TP SCH ×2 (08:32→21:32)
[2019-12-02] MEDS: CALCIUM CARB/VITAMIN D 600-400 MG TABLET GT SCH ×2 (08:33→21:29)
[2019-12-02] MEDS: [UNRECOGNIZED DRUG - OTHER] GT SCH (08:33)
--- NOTE | 2019-12-02 13:34 | NUR ---
SW received an email response from patient's daughter Kimberlee regarding the IDT meeting on 12/06. Kimberlee stated that she would not be able to participate, however maybe patient's son Adalberto would be able. MARINO waiting to hear back from Adalberto.
--- NOTE | 2019-12-02 19:20 | NUR ---
NEW ORDER FROM DANNIE العلي OBTAINED FOR FLU VACCINE.
[2019-12-02 20:44] VITALS: BP 127/55
[2019-12-02] MEDS: PROTEIN SUPPLEMENT (PROSTAT) 30 ML LIQUID GT SCH (21:29)
[2019-12-02] MEDS: [UNRECOGNIZED DRUG - OTHER] GT SCH (21:29)
[2019-12-02] MEDS: MINERAL OIL/PETROLAT OPHT OINT 3.5 GM TUBE EACHEYE SCH (21:29)
[2019-12-03] MEDS: POLYVINYL ALCOHOL OPHT DROPS 15 ML BOTTLE EACHEYE SCH ×6 (01:00→20:28)
[2019-12-03] MEDS: IPRATROPIUM BROMIDE 0.5 MG/2.5 ML NEBU NEB SCH ×4 (01:11→19:12)
[2019-12-03] MEDS: ALBUTEROL SULFATE 2.5 MG/3 ML NEBU NEB SCH ×4 (01:11→19:12)
[2019-12-03] MEDS: OSMOLITE 1.2 CAL 1,000 ML LIQUID GT PRN (01:30)
[2019-12-03] MEDS: FAMOTIDINE 20 MG TABLET GT SCH (05:32)
[2019-12-03] MEDS: CARBIDOPA/LEVODOPA 25-100MG TABLET GT SCH ×3 (05:32→22:26)
[2019-12-03] MEDS: LEVOTHYROXINE SODIUM 50 MCG TABLET GT SCH (05:32)
[2019-12-03] MEDS: [UNRECOGNIZED DRUG - OTHER] GT SCH (05:32)
[2019-12-03] MEDS: ACETAMINOPHEN 650 MG/20 ML UDC- SA PATIENTS-PAIN ONLY GT PRN (05:33)
[2019-12-03 07:38] VITALS: BP 123/58
[2019-12-03] MEDS: CALCIUM CARB/VITAMIN D 600-400 MG TABLET GT SCH ×2 (08:09→20:28)
[2019-12-03] MEDS: NYSTATIN CREAM 30 GM TUBE TOP SCH ×2 (08:10→20:32)
[2019-12-03] MEDS: [UNRECOGNIZED DRUG - OTHER] GT SCH (08:10)
[2019-12-03] MEDS: ENOXAPARIN SODIUM 40 MG/0.4 ML DISP.SYRIN SQ SCH (08:10)
[2019-12-03] MEDS: HYDROGEN PEROXIDE 3% 118 ML BOTTLE TP SCH ×2 (08:11→21:09)
[2019-12-03] MEDS: COD LIVER OIL/ZINC OXIDE OINT 113 GM TUBE TP SCH ×2 (08:11→20:32)
[2019-12-03] MEDS: TRIAMCINOLONE ACET 0.1% CREAM 15 GM TUBE TP SCH ×2 (08:11→20:32)
--- NOTE | 2019-12-03 15:28 | NUR ---
Patient seen by Dr. Raymond on 12/02/2019 for her routine annual eye exam. Please see optometry notes in patient's chart for details.
--- NOTE | 2019-12-03 18:51 | NUR ---
NO A/R TO FLU VACCVINE ,AFEBRILE.
[2019-12-03] MEDS: PROTEIN SUPPLEMENT (PROSTAT) 30 ML LIQUID GT SCH (20:28)
[2019-12-03] MEDS: MINERAL OIL/PETROLAT OPHT OINT 3.5 GM TUBE EACHEYE SCH (20:28)
[2019-12-03] MEDS: [UNRECOGNIZED DRUG - OTHER] GT SCH (20:28)
[2019-12-03 20:48] VITALS: BP 121/51
--- NOTE | 2019-12-03 22:50 | NUR ---
Afebrile, no adverse reactions noted from the flu vaccine.
[2019-12-04] MEDS: IPRATROPIUM BROMIDE 0.5 MG/2.5 ML NEBU NEB SCH ×4 (00:40→19:09)
[2019-12-04] MEDS: ALBUTEROL SULFATE 2.5 MG/3 ML NEBU NEB SCH ×4 (00:40→19:09)
[2019-12-04] MEDS: POLYVINYL ALCOHOL OPHT DROPS 15 ML BOTTLE EACHEYE SCH ×6 (01:24→20:11)
[2019-12-04] MEDS: LEVOTHYROXINE SODIUM 50 MCG TABLET GT SCH (06:32)
[2019-12-04] MEDS: [UNRECOGNIZED DRUG - OTHER] GT SCH (06:32)
[2019-12-04] MEDS: FAMOTIDINE 20 MG TABLET GT SCH (06:32)
[2019-12-04] MEDS: OSMOLITE 1.2 CAL 1,000 ML LIQUID GT PRN (06:32)
[2019-12-04] MEDS: CARBIDOPA/LEVODOPA 25-100MG TABLET GT SCH ×3 (06:32→21:32)
[2019-12-04] MEDS: HYDROGEN PEROXIDE 3% 118 ML BOTTLE TP SCH ×2 (07:31→19:09)
[2019-12-04 07:47] VITALS: BP 130/61
[2019-12-04] MEDS: [UNRECOGNIZED DRUG - OTHER] GT SCH (08:20)
[2019-12-04] MEDS: CALCIUM CARB/VITAMIN D 600-400 MG TABLET GT SCH ×2 (08:20→20:12)
[2019-12-04] MEDS: ENOXAPARIN SODIUM 40 MG/0.4 ML DISP.SYRIN SQ SCH (08:24)
[2019-12-04] MEDS: COD LIVER OIL/ZINC OXIDE OINT 113 GM TUBE TP SCH ×2 (08:25→20:12)
[2019-12-04] MEDS: NYSTATIN CREAM 30 GM TUBE TOP SCH ×2 (08:25→20:12)
[2019-12-04] MEDS: TRIAMCINOLONE ACET 0.1% CREAM 15 GM TUBE TP SCH ×2 (08:25→20:12)
--- NOTE | 2019-12-04 18:16 | NUR ---
NO A/R TO FLU VACCINE ,AFEBRILE.
[2019-12-04] MEDS: PROTEIN SUPPLEMENT (PROSTAT) 30 ML LIQUID GT SCH (20:12)
[2019-12-04] MEDS: MINERAL OIL/PETROLAT OPHT OINT 3.5 GM TUBE EACHEYE SCH (20:12)
[2019-12-04] MEDS: [UNRECOGNIZED DRUG - OTHER] GT SCH (20:12)
[2019-12-04 20:53] VITALS: BP 117/65
--- NOTE | 2019-12-04 21:49 | NUR ---
Afebrile, no adverse reactions from flu vaccine, no redness on injection site.
[2019-12-05] MEDS: IPRATROPIUM BROMIDE 0.5 MG/2.5 ML NEBU NEB SCH ×4 (01:18→19:15)
[2019-12-05] MEDS: ALBUTEROL SULFATE 2.5 MG/3 ML NEBU NEB SCH ×4 (01:18→19:15)
[2019-12-05] MEDS: POLYVINYL ALCOHOL OPHT DROPS 15 ML BOTTLE EACHEYE SCH ×6 (01:47→21:24)
[2019-12-05] MEDS: LEVOTHYROXINE SODIUM 50 MCG TABLET GT SCH (05:44)
[2019-12-05] MEDS: FAMOTIDINE 20 MG TABLET GT SCH (05:44)
[2019-12-05] MEDS: [UNRECOGNIZED DRUG - OTHER] GT SCH (05:44)
[2019-12-05] MEDS: CARBIDOPA/LEVODOPA 25-100MG TABLET GT SCH ×3 (05:44→21:26)
[2019-12-05] MEDS: OSMOLITE 1.2 CAL 1,000 ML LIQUID GT PRN (05:45)
[2019-12-05 07:49] VITALS: BP 130/60
[2019-12-05] MEDS: HYDROGEN PEROXIDE 3% 118 ML BOTTLE TP SCH ×2 (07:49→21:02)
[2019-12-05] MEDS: CALCIUM CARB/VITAMIN D 600-400 MG TABLET GT SCH ×2 (09:07→21:24)
[2019-12-05] MEDS: NYSTATIN CREAM 30 GM TUBE TOP SCH ×2 (09:08→21:24)
[2019-12-05] MEDS: TRIAMCINOLONE ACET 0.1% CREAM 15 GM TUBE TP SCH ×2 (09:08→21:25)
[2019-12-05] MEDS: COD LIVER OIL/ZINC OXIDE OINT 113 GM TUBE TP SCH ×2 (09:08→21:25)
[2019-12-05] MEDS: [UNRECOGNIZED DRUG - OTHER] GT SCH (09:08)
[2019-12-05] MEDS: ENOXAPARIN SODIUM 40 MG/0.4 ML DISP.SYRIN SQ SCH (09:09)
--- NOTE | 2019-12-05 13:54 | NUR ---
NO A/R TO FLU VACCINE ,AFEBRILE.
[2019-12-05 20:26] VITALS: BP 135/55
[2019-12-05] MEDS: [UNRECOGNIZED DRUG - OTHER] GT SCH (21:24)
[2019-12-05] MEDS: MINERAL OIL/PETROLAT OPHT OINT 3.5 GM TUBE EACHEYE SCH (21:24)
[2019-12-05] MEDS: PROTEIN SUPPLEMENT (PROSTAT) 30 ML LIQUID GT SCH (21:24)
[2019-12-06] MEDS: ALBUTEROL SULFATE 2.5 MG/3 ML NEBU NEB SCH ×4 (00:37→19:30)
[2019-12-06] MEDS: IPRATROPIUM BROMIDE 0.5 MG/2.5 ML NEBU NEB SCH ×4 (00:37→19:30)
[2019-12-06] MEDS: OSMOLITE 1.2 CAL 1,000 ML LIQUID GT PRN ×2 (00:53→17:39)
[2019-12-06] MEDS: diphenhydrAMINE 25 MG/10 ML UDC GT PRN ×2 (00:53→17:39)
[2019-12-06] MEDS: POLYVINYL ALCOHOL OPHT DROPS 15 ML BOTTLE EACHEYE SCH ×6 (01:16→20:46)
[2019-12-06] MEDS: FAMOTIDINE 20 MG TABLET GT SCH (05:34)
[2019-12-06] MEDS: [UNRECOGNIZED DRUG - OTHER] GT SCH (05:34)
[2019-12-06] MEDS: LEVOTHYROXINE SODIUM 50 MCG TABLET GT SCH (05:34)
[2019-12-06] MEDS: CARBIDOPA/LEVODOPA 25-100MG TABLET GT SCH ×3 (05:34→21:46)
--- NOTE | 2019-12-06 06:57 | NUR ---
No A/R to flu vaccine, afebrile.
[2019-12-06 07:33] VITALS: BP 159/60
[2019-12-06] MEDS: CALCIUM CARB/VITAMIN D 600-400 MG TABLET GT SCH ×2 (08:58→20:46)
[2019-12-06] MEDS: [UNRECOGNIZED DRUG - OTHER] GT SCH (08:59)
[2019-12-06] MEDS: COD LIVER OIL/ZINC OXIDE OINT 113 GM TUBE TP SCH ×2 (09:00→20:46)
[2019-12-06] MEDS: ENOXAPARIN SODIUM 40 MG/0.4 ML DISP.SYRIN SQ SCH (09:00)
[2019-12-06] MEDS: NYSTATIN CREAM 30 GM TUBE TOP SCH ×2 (09:30→20:46)
[2019-12-06] MEDS: TRIAMCINOLONE ACET 0.1% CREAM 15 GM TUBE TP SCH ×2 (09:30→20:46)
[2019-12-06] MEDS: HYDROGEN PEROXIDE 3% 118 ML BOTTLE TP SCH ×2 (09:45→21:38)
--- NOTE | 2019-12-06 13:30 | NUR ---
SEEN BY DANNIE Bailey AND WITH NNO.
--- NOTE | 2019-12-06 16:00 | NUR ---
SEEN BY DR. DEMARCO AND WITH NNO.
[2019-12-06] MEDS: [UNRECOGNIZED DRUG - OTHER] GT SCH (20:46)
[2019-12-06] MEDS: MINERAL OIL/PETROLAT OPHT OINT 3.5 GM TUBE EACHEYE SCH (20:46)
[2019-12-06] MEDS: PROTEIN SUPPLEMENT (PROSTAT) 30 ML LIQUID GT SCH (20:46)
[2019-12-06 20:49] VITALS: BP 115/62
[2019-12-07] MEDS: ALBUTEROL SULFATE 2.5 MG/3 ML NEBU NEB SCH ×4 (01:10→19:20)
[2019-12-07] MEDS: IPRATROPIUM BROMIDE 0.5 MG/2.5 ML NEBU NEB SCH ×4 (01:10→19:20)
[2019-12-07] MEDS: POLYVINYL ALCOHOL OPHT DROPS 15 ML BOTTLE EACHEYE SCH ×6 (01:25→21:15)
[2019-12-07] MEDS: LEVOTHYROXINE SODIUM 50 MCG TABLET GT SCH (05:04)
[2019-12-07] MEDS: [UNRECOGNIZED DRUG - OTHER] GT SCH (05:04)
[2019-12-07] MEDS: CARBIDOPA/LEVODOPA 25-100MG TABLET GT SCH ×3 (05:04→21:19)
[2019-12-07] MEDS: FAMOTIDINE 20 MG TABLET GT SCH (05:33)
[2019-12-07 07:39] VITALS: BP 132/67
[2019-12-07] MEDS: CALCIUM CARB/VITAMIN D 600-400 MG TABLET GT SCH ×2 (08:02→21:15)
[2019-12-07] MEDS: NYSTATIN CREAM 30 GM TUBE TOP SCH ×2 (08:03→21:18)
[2019-12-07] MEDS: TRIAMCINOLONE ACET 0.1% CREAM 15 GM TUBE TP SCH ×2 (08:03→21:18)
[2019-12-07] MEDS: COD LIVER OIL/ZINC OXIDE OINT 113 GM TUBE TP SCH ×2 (08:03→21:18)
[2019-12-07] MEDS: [UNRECOGNIZED DRUG - OTHER] GT SCH (08:03)
[2019-12-07] MEDS: ENOXAPARIN SODIUM 40 MG/0.4 ML DISP.SYRIN SQ SCH (08:03)
[2019-12-07] MEDS: HYDROGEN PEROXIDE 3% 118 ML BOTTLE TP SCH ×2 (08:08→21:37)
--- NOTE | 2019-12-07 16:17 | NUR ---
INTERDISCIPLINARY PLAN OF CARE CONFERENCE was held today. Patient's daughter Kimberlee and son Adalberto participated in the meeting through speaker phone. Dr. Yu and the Interdisciplinary Team reviewed the current plan of care in detail. RN reported on patient's medical condition, and current treatment for a rash on the back of the patient's neck. See RN IDT conference notes. No major changes in medical condition were reported by nursing or by the other disciplines. See all other disciplines IDT notes and physician's progress notes for additional details. Kimberlee's and Adalberto's questions were addressed by the IDT team and by Dr. Yu, and Kimberlee and Adalberto expressed agreement with the current plan of care.
[2019-12-07 20:00] VITALS: BP 125/64
[2019-12-07] MEDS: MINERAL OIL/PETROLAT OPHT OINT 3.5 GM TUBE EACHEYE SCH (21:15)
[2019-12-07] MEDS: [UNRECOGNIZED DRUG - OTHER] GT SCH (21:16)
[2019-12-07] MEDS: PROTEIN SUPPLEMENT (PROSTAT) 30 ML LIQUID GT SCH (21:16)
[2019-12-08] MEDS: IPRATROPIUM BROMIDE 0.5 MG/2.5 ML NEBU NEB SCH ×4 (01:10→19:10)
[2019-12-08] MEDS: ALBUTEROL SULFATE 2.5 MG/3 ML NEBU NEB SCH ×4 (01:10→19:10)
[2019-12-08] MEDS: POLYVINYL ALCOHOL OPHT DROPS 15 ML BOTTLE EACHEYE SCH ×6 (01:22→20:49)
[2019-12-08] MEDS: LEVOTHYROXINE SODIUM 50 MCG TABLET GT SCH (05:55)
[2019-12-08] MEDS: ALENDRONATE GT SCH (05:55)
[2019-12-08] MEDS: CARBIDOPA/LEVODOPA 25-100MG TABLET GT SCH ×3 (05:55→22:03)
[2019-12-08] MEDS: [UNRECOGNIZED DRUG - OTHER] GT SCH (05:55)
[2019-12-08] MEDS: FAMOTIDINE 20 MG TABLET GT SCH (05:55)
[2019-12-08] MEDS: HYDROGEN PEROXIDE 3% 118 ML BOTTLE TP SCH ×2 (07:14→21:02)
[2019-12-08 07:46] VITALS: BP 130/63
[2019-12-08] MEDS: CALCIUM CARB/VITAMIN D 600-400 MG TABLET GT SCH ×2 (08:47→20:50)
[2019-12-08] MEDS: [UNRECOGNIZED DRUG - OTHER] GT SCH (08:48)
[2019-12-08] MEDS: ENOXAPARIN SODIUM 40 MG/0.4 ML DISP.SYRIN SQ SCH (08:51)
[2019-12-08] MEDS: NYSTATIN CREAM 30 GM TUBE TOP SCH ×2 (08:51→20:50)
[2019-12-08] MEDS: COD LIVER OIL/ZINC OXIDE OINT 113 GM TUBE TP SCH ×2 (08:51→20:50)
[2019-12-08] MEDS: TRIAMCINOLONE ACET 0.1% CREAM 15 GM TUBE TP SCH ×2 (08:51→20:50)
[2019-12-08] MEDS: OSMOLITE 1.2 CAL 1,000 ML LIQUID GT PRN (11:02)
--- NOTE | 2019-12-08 14:12 | NUR ---
Order for a makayla herreraion submitted to [facility], fax [phone]
--- NOTE | 2019-12-08 17:30 | NUR ---
Seen and examined by Dr Yu ,with no new orders noted.
[2019-12-08 20:10] VITALS: BP 126/51
[2019-12-08] MEDS: PROTEIN SUPPLEMENT (PROSTAT) 30 ML LIQUID GT SCH (20:50)
[2019-12-08] MEDS: MINERAL OIL/PETROLAT OPHT OINT 3.5 GM TUBE EACHEYE SCH (20:50)
[2019-12-08] MEDS: [UNRECOGNIZED DRUG - OTHER] GT SCH (20:50)
[2019-12-09] MEDS: ALBUTEROL SULFATE 2.5 MG/3 ML NEBU NEB SCH ×4 (00:50→19:10)
[2019-12-09] MEDS: IPRATROPIUM BROMIDE 0.5 MG/2.5 ML NEBU NEB SCH ×4 (00:50→19:10)
[2019-12-09] MEDS: POLYVINYL ALCOHOL OPHT DROPS 15 ML BOTTLE EACHEYE SCH ×6 (01:48→21:24)
[2019-12-09] MEDS: OSMOLITE 1.2 CAL 1,000 ML LIQUID GT PRN (04:52)
[2019-12-09] MEDS: CARBIDOPA/LEVODOPA 25-100MG TABLET GT SCH ×3 (06:09→21:30)
[2019-12-09] MEDS: FAMOTIDINE 20 MG TABLET GT SCH (06:09)
[2019-12-09] MEDS: [UNRECOGNIZED DRUG - OTHER] GT SCH (06:09)
[2019-12-09] MEDS: LEVOTHYROXINE SODIUM 50 MCG TABLET GT SCH (06:09)
[2019-12-09 07:24] VITALS: BP 133/42
[2019-12-09] MEDS: HYDROGEN PEROXIDE 3% 118 ML BOTTLE TP SCH ×2 (09:00→21:21)
[2019-12-09] MEDS: NYSTATIN CREAM 30 GM TUBE TOP SCH ×2 (09:52→21:27)
[2019-12-09] MEDS: TRIAMCINOLONE ACET 0.1% CREAM 15 GM TUBE TP SCH ×2 (09:53→21:30)
[2019-12-09] MEDS: COD LIVER OIL/ZINC OXIDE OINT 113 GM TUBE TP SCH ×2 (09:53→21:30)
[2019-12-09] MEDS: CALCIUM CARB/VITAMIN D 600-400 MG TABLET GT SCH ×2 (09:54→21:25)
[2019-12-09] MEDS: [UNRECOGNIZED DRUG - OTHER] GT SCH (09:54)
[2019-12-09] MEDS: ENOXAPARIN SODIUM 40 MG/0.4 ML DISP.SYRIN SQ SCH (09:57)
--- NOTE | 2019-12-09 15:11 | NUR ---
MARINO called patient's daughter Kimberlee [phone] and informed her of possible COVID-19 exposure on the subacute unit. MARINO also informed iKmberlee of the testing plan for the next 14 days, as mandated by [facility] regulations. MARINO stated that Kimberlee would be notified by nursing after each test result. Kimberlee expressed understanding and thanked this SW for the information provided.
[2019-12-09 20:34] VITALS: BP 105/77
[2019-12-09] MEDS: MINERAL OIL/PETROLAT OPHT OINT 3.5 GM TUBE EACHEYE SCH (21:24)
[2019-12-09] MEDS: [UNRECOGNIZED DRUG - OTHER] GT SCH (21:26)
[2019-12-09] MEDS: PROTEIN SUPPLEMENT (PROSTAT) 30 ML LIQUID GT SCH (21:26)
[2019-12-10] MEDS: IPRATROPIUM BROMIDE 0.5 MG/2.5 ML NEBU NEB SCH ×4 (00:34→21:20)
[2019-12-10] MEDS: ALBUTEROL SULFATE 2.5 MG/3 ML NEBU NEB SCH ×4 (00:34→21:20)
[2019-12-10] MEDS: POLYVINYL ALCOHOL OPHT DROPS 15 ML BOTTLE EACHEYE SCH ×6 (01:00→20:21)
--- NOTE | 2019-12-10 01:17 | NUR ---
Patient is afebrile, No respiratory distress noted, 02 sat is 100%, will continue monitor.
[2019-12-10] MEDS: OSMOLITE 1.2 CAL 1,000 ML LIQUID GT PRN ×2 (04:12→21:15)
[2019-12-10] MEDS: [UNRECOGNIZED DRUG - OTHER] GT SCH (05:55)
[2019-12-10] MEDS: CARBIDOPA/LEVODOPA 25-100MG TABLET GT SCH ×3 (05:55→21:19)
[2019-12-10] MEDS: LEVOTHYROXINE SODIUM 50 MCG TABLET GT SCH (05:56)
[2019-12-10] MEDS: FAMOTIDINE 20 MG TABLET GT SCH (05:56)
[2019-12-10 07:36] VITALS: BP 136/63
[2019-12-10] MEDS: CALCIUM CARB/VITAMIN D 600-400 MG TABLET GT SCH ×2 (08:39→20:21)
[2019-12-10] MEDS: [UNRECOGNIZED DRUG - OTHER] GT SCH (08:39)
[2019-12-10] MEDS: TRIAMCINOLONE ACET 0.1% CREAM 15 GM TUBE TP SCH ×2 (08:40→20:21)
[2019-12-10] MEDS: COD LIVER OIL/ZINC OXIDE OINT 113 GM TUBE TP SCH ×2 (08:40→20:21)
[2019-12-10] MEDS: ENOXAPARIN SODIUM 40 MG/0.4 ML DISP.SYRIN SQ SCH (08:40)
[2019-12-10] MEDS: NYSTATIN CREAM 30 GM TUBE TOP SCH ×2 (08:40→20:21)
[2019-12-10] MEDS: HYDROGEN PEROXIDE 3% 118 ML BOTTLE TP SCH ×2 (09:20→21:00)
[2019-12-10] MEDS: [UNRECOGNIZED DRUG - OTHER] GT SCH (20:21)
[2019-12-10] MEDS: PROTEIN SUPPLEMENT (PROSTAT) 30 ML LIQUID GT SCH (20:21)
[2019-12-10] MEDS: MINERAL OIL/PETROLAT OPHT OINT 3.5 GM TUBE EACHEYE SCH (21:19)
[2019-12-10 22:48] VITALS: BP 110/71
[2019-12-11] MEDS: POLYVINYL ALCOHOL OPHT DROPS 15 ML BOTTLE EACHEYE SCH ×6 (00:16→20:26)
[2019-12-11] MEDS: IPRATROPIUM BROMIDE 0.5 MG/2.5 ML NEBU NEB SCH ×4 (01:35→19:20)
[2019-12-11] MEDS: ALBUTEROL SULFATE 2.5 MG/3 ML NEBU NEB SCH ×4 (01:35→19:20)
[2019-12-11] MEDS: LEVOTHYROXINE SODIUM 50 MCG TABLET GT SCH (05:31)
[2019-12-11] MEDS: CARBIDOPA/LEVODOPA 25-100MG TABLET GT SCH ×3 (05:31→21:08)
[2019-12-11] MEDS: FAMOTIDINE 20 MG TABLET GT SCH (05:31)
[2019-12-11] MEDS: [UNRECOGNIZED DRUG - OTHER] GT SCH (05:31)
[2019-12-11] MEDS: HYDROGEN PEROXIDE 3% 118 ML BOTTLE TP SCH ×2 (07:12→21:01)
[2019-12-11 07:58] VITALS: BP 123/81
[2019-12-11] MEDS: TRIAMCINOLONE ACET 0.1% CREAM 15 GM TUBE TP SCH ×2 (08:11→20:27)
[2019-12-11] MEDS: COD LIVER OIL/ZINC OXIDE OINT 113 GM TUBE TP SCH ×2 (08:11→20:27)
[2019-12-11] MEDS: [UNRECOGNIZED DRUG - OTHER] GT SCH (08:11)
[2019-12-11] MEDS: ENOXAPARIN SODIUM 40 MG/0.4 ML DISP.SYRIN SQ SCH (08:11)
[2019-12-11] MEDS: NYSTATIN CREAM 30 GM TUBE TOP SCH ×2 (08:11→20:27)
[2019-12-11] MEDS: CALCIUM CARB/VITAMIN D 600-400 MG TABLET GT SCH ×2 (08:11→20:26)
[2019-12-11] MEDS: OSMOLITE 1.2 CAL 1,000 ML LIQUID GT PRN (17:24)
[2019-12-11] MEDS: [UNRECOGNIZED DRUG - OTHER] GT SCH (20:26)
[2019-12-11] MEDS: PROTEIN SUPPLEMENT (PROSTAT) 30 ML LIQUID GT SCH (20:27)
[2019-12-11] MEDS: MINERAL OIL/PETROLAT OPHT OINT 3.5 GM TUBE EACHEYE SCH (21:08)
[2019-12-11 23:05] VITALS: BP 122/54
[2019-12-12] MEDS: POLYVINYL ALCOHOL OPHT DROPS 15 ML BOTTLE EACHEYE SCH ×6 (00:31→20:20)
[2019-12-12] MEDS: ALBUTEROL SULFATE 2.5 MG/3 ML NEBU NEB SCH ×4 (01:05→20:20)
[2019-12-12] MEDS: IPRATROPIUM BROMIDE 0.5 MG/2.5 ML NEBU NEB SCH ×4 (01:05→20:20)
[2019-12-12] MEDS: FAMOTIDINE 20 MG TABLET GT SCH (05:32)
[2019-12-12] MEDS: CARBIDOPA/LEVODOPA 25-100MG TABLET GT SCH ×3 (05:32→21:09)
[2019-12-12] MEDS: LEVOTHYROXINE SODIUM 50 MCG TABLET GT SCH (05:32)
[2019-12-12] MEDS: [UNRECOGNIZED DRUG - OTHER] GT SCH (05:32)
[2019-12-12 07:46] VITALS: BP 125/58
[2019-12-12] MEDS: [UNRECOGNIZED DRUG - OTHER] GT SCH (08:14)
[2019-12-12] MEDS: CALCIUM CARB/VITAMIN D 600-400 MG TABLET GT SCH ×2 (08:14→20:20)
[2019-12-12] MEDS: COD LIVER OIL/ZINC OXIDE OINT 113 GM TUBE TP SCH ×2 (08:14→20:20)
[2019-12-12] MEDS: NYSTATIN CREAM 30 GM TUBE TOP SCH ×2 (08:14→20:20)
[2019-12-12] MEDS: TRIAMCINOLONE ACET 0.1% CREAM 15 GM TUBE TP SCH ×2 (08:14→20:20)
[2019-12-12] MEDS: ENOXAPARIN SODIUM 40 MG/0.4 ML DISP.SYRIN SQ SCH (08:15)
[2019-12-12] MEDS: HYDROGEN PEROXIDE 3% 118 ML BOTTLE TP SCH ×2 (09:15→21:29)
--- NOTE | 2019-12-12 11:46 | NUR ---
New orders for Covid 19 today.carried out.
[2019-12-12] MEDS: OSMOLITE 1.2 CAL 1,000 ML LIQUID GT PRN (17:39)
[2019-12-12] MEDS: PROTEIN SUPPLEMENT (PROSTAT) 30 ML LIQUID GT SCH (20:20)
[2019-12-12] MEDS: [UNRECOGNIZED DRUG - OTHER] GT SCH (20:20)
[2019-12-12] MEDS: MINERAL OIL/PETROLAT OPHT OINT 3.5 GM TUBE EACHEYE SCH (21:09)
[2019-12-12 22:48] VITALS: BP 125/58
[2019-12-13] MEDS: POLYVINYL ALCOHOL OPHT DROPS 15 ML BOTTLE EACHEYE SCH ×6 (01:12→20:31)
[2019-12-13] MEDS: IPRATROPIUM BROMIDE 0.5 MG/2.5 ML NEBU NEB SCH ×4 (01:49→19:10)
[2019-12-13] MEDS: ALBUTEROL SULFATE 2.5 MG/3 ML NEBU NEB SCH ×4 (01:49→19:10)
[2019-12-13] MEDS: LEVOTHYROXINE SODIUM 50 MCG TABLET GT SCH (05:38)
[2019-12-13] MEDS: [UNRECOGNIZED DRUG - OTHER] GT SCH (05:38)
[2019-12-13] MEDS: FAMOTIDINE 20 MG TABLET GT SCH (05:38)
[2019-12-13] MEDS: CARBIDOPA/LEVODOPA 25-100MG TABLET GT SCH ×3 (05:38→22:47)
[2019-12-13 06:28] LABS: BASOPHILS # (AUTO) 0.1 K/uL (0.0-8.0); EOSINOPHILS # (AUTO) 0.1 K/uL (0.0-0.7); EOSINOPHILS % (AUTO) 2.1 % (0.0-7.0); HEMATOCRIT 39.6 % (31.2-41.9); HEMOGLOBIN 13.3 g/dL (10.9-14.3); LYMPHOCYTES # (AUTO) 1.9 K/uL (20.0-40.0); LYMPHOCYTES % (AUTO) 34.1 % (20.5-51.5); MEAN CORPUSCULAR HEMOGLOBIN 30.3 uug (24.7-32.8); MEAN CORPUSCULAR HGB CONC 34 g/dL (32.3-35.6); MEAN CORPUSCULAR VOLUME 89.9 fL (75.5-95.3); MONOCYTES # (AUTO) 0.7 K/uL (2.0-10.0); MONOCYTES % (AUTO) 13.1 % (0.0-11.0); NEUTROPHILS # (AUTO) 2.8 K/uL (1.8-8.9); NEUTROPHILS % (AUTO) 49.7 % (38.5-71.5); PLATELET COUNT (AUTO) 213 K/uL (179-408); WHITE BLOOD COUNT (AUTO) 5.5 K/uL (3.8-11.8)
[2019-12-13 06:46] LABS: BILIRUBIN,TOTAL 0.2 mg/dL (0.2-1.0); CREATININE 0.7 mg/dL (0.6-1.3); POTASSIUM 4.2 mmol/L (3.5-5.1); TOTAL PROTEIN, SERUM 7.2 g/dL (6.4-8.2)
[2019-12-13] MEDS: HYDROGEN PEROXIDE 3% 118 ML BOTTLE TP SCH ×2 (07:31→21:26)
[2019-12-13 07:53] VITALS: BP 127/58
[2019-12-13] MEDS: CALCIUM CARB/VITAMIN D 600-400 MG TABLET GT SCH ×2 (08:41→20:31)
[2019-12-13] MEDS: [UNRECOGNIZED DRUG - OTHER] GT SCH (08:42)
[2019-12-13] MEDS: COD LIVER OIL/ZINC OXIDE OINT 113 GM TUBE TP SCH ×2 (08:43→20:32)
[2019-12-13] MEDS: ENOXAPARIN SODIUM 40 MG/0.4 ML DISP.SYRIN SQ SCH (08:43)
[2019-12-13] MEDS: diphenhydrAMINE 25 MG/10 ML UDC GT PRN (16:00)
[2019-12-13] MEDS: [UNRECOGNIZED DRUG - OTHER] GT SCH (20:31)
[2019-12-13] MEDS: MINERAL OIL/PETROLAT OPHT OINT 3.5 GM TUBE EACHEYE SCH (20:31)
[2019-12-13] MEDS: PROTEIN SUPPLEMENT (PROSTAT) 30 ML LIQUID GT SCH (20:32)
[2019-12-13] MEDS: ACETAMINOPHEN 650 MG/20 ML UDC- SA PATIENTS-PAIN ONLY GT PRN (20:33)
[2019-12-13 20:35] VITALS: BP 124/69
[2019-12-13 23:35] VITALS: BP 124/69
[2019-12-14] MEDS: IPRATROPIUM BROMIDE 0.5 MG/2.5 ML NEBU NEB SCH ×4 (00:40→19:16)
[2019-12-14] MEDS: ALBUTEROL SULFATE 2.5 MG/3 ML NEBU NEB SCH ×4 (00:40→19:16)
[2019-12-14] MEDS: POLYVINYL ALCOHOL OPHT DROPS 15 ML BOTTLE EACHEYE SCH ×6 (01:10→20:35)
[2019-12-14] MEDS: FAMOTIDINE 20 MG TABLET GT SCH (06:35)
[2019-12-14] MEDS: LEVOTHYROXINE SODIUM 50 MCG TABLET GT SCH (06:35)
[2019-12-14] MEDS: [UNRECOGNIZED DRUG - OTHER] GT SCH (06:35)
[2019-12-14] MEDS: CARBIDOPA/LEVODOPA 25-100MG TABLET GT SCH ×3 (06:35→22:34)
[2019-12-14 07:20] VITALS: BP 127/51
[2019-12-14] MEDS: HYDROGEN PEROXIDE 3% 118 ML BOTTLE TP SCH ×2 (07:45→20:53)
[2019-12-14] MEDS: [UNRECOGNIZED DRUG - OTHER] GT SCH (09:03)
[2019-12-14] MEDS: CALCIUM CARB/VITAMIN D 600-400 MG TABLET GT SCH ×2 (09:03→20:36)
[2019-12-14] MEDS: COD LIVER OIL/ZINC OXIDE OINT 113 GM TUBE TP SCH ×2 (09:03→20:37)
[2019-12-14] MEDS: ENOXAPARIN SODIUM 40 MG/0.4 ML DISP.SYRIN SQ SCH (09:08)
[2019-12-14] MEDS: OSMOLITE 1.2 CAL 1,000 ML LIQUID GT PRN (14:10)
[2019-12-14] MEDS: diphenhydrAMINE 25 MG/10 ML UDC GT PRN (17:43)
--- NOTE | 2019-12-14 18:29 | NUR ---
Adalberto garay's son notified COVID-19 test result was negative.
[2019-12-14 20:19] VITALS: BP 136/51
[2019-12-14] MEDS: [UNRECOGNIZED DRUG - OTHER] GT SCH (20:36)
[2019-12-14] MEDS: MINERAL OIL/PETROLAT OPHT OINT 3.5 GM TUBE EACHEYE SCH (20:36)
[2019-12-14] MEDS: PROTEIN SUPPLEMENT (PROSTAT) 30 ML LIQUID GT SCH (20:37)
[2019-12-15] MEDS: IPRATROPIUM BROMIDE 0.5 MG/2.5 ML NEBU NEB SCH ×4 (00:43→19:30)
[2019-12-15] MEDS: ALBUTEROL SULFATE 2.5 MG/3 ML NEBU NEB SCH ×4 (00:43→19:30)
[2019-12-15] MEDS: POLYVINYL ALCOHOL OPHT DROPS 15 ML BOTTLE EACHEYE SCH ×6 (01:00→20:43)
[2019-12-15] MEDS: FAMOTIDINE 20 MG TABLET GT SCH (06:04)
[2019-12-15] MEDS: [UNRECOGNIZED DRUG - OTHER] GT SCH (06:04)
[2019-12-15] MEDS: LEVOTHYROXINE SODIUM 50 MCG TABLET GT SCH (06:04)
[2019-12-15] MEDS: ALENDRONATE GT SCH (06:04)
[2019-12-15] MEDS: CARBIDOPA/LEVODOPA 25-100MG TABLET GT SCH ×3 (06:04→21:04)
[2019-12-15] MEDS: OSMOLITE 1.2 CAL 1,000 ML LIQUID GT PRN (06:04)
[2019-12-15 07:33] VITALS: BP 130/61
[2019-12-15] MEDS: HYDROGEN PEROXIDE 3% 118 ML BOTTLE TP SCH ×2 (07:54→21:31)
[2019-12-15] MEDS: [UNRECOGNIZED DRUG - OTHER] GT SCH (08:37)
[2019-12-15] MEDS: CALCIUM CARB/VITAMIN D 600-400 MG TABLET GT SCH ×2 (08:37→20:43)
[2019-12-15] MEDS: COD LIVER OIL/ZINC OXIDE OINT 113 GM TUBE TP SCH ×2 (08:38→20:43)
[2019-12-15] MEDS: ENOXAPARIN SODIUM 40 MG/0.4 ML DISP.SYRIN SQ SCH (08:38)
--- NOTE | 2019-12-15 18:51 | NUR ---
Seen and examined by Dr Yu,no new orders.
[2019-12-15 20:29] VITALS: BP 119/72
[2019-12-15] MEDS: [UNRECOGNIZED DRUG - OTHER] GT SCH (20:43)
[2019-12-15] MEDS: MINERAL OIL/PETROLAT OPHT OINT 3.5 GM TUBE EACHEYE SCH (20:43)
[2019-12-15] MEDS: PROTEIN SUPPLEMENT (PROSTAT) 30 ML LIQUID GT SCH (20:43)
[2019-12-15] MEDS: diphenhydrAMINE 25 MG/10 ML UDC GT PRN (20:49)
[2019-12-16] MEDS: ALBUTEROL SULFATE 2.5 MG/3 ML NEBU NEB SCH ×4 (00:55→19:20)
[2019-12-16] MEDS: IPRATROPIUM BROMIDE 0.5 MG/2.5 ML NEBU NEB SCH ×4 (00:55→19:20)
[2019-12-16] MEDS: POLYVINYL ALCOHOL OPHT DROPS 15 ML BOTTLE EACHEYE SCH ×6 (01:00→20:43)
[2019-12-16] MEDS: OSMOLITE 1.2 CAL 1,000 ML LIQUID GT PRN (02:30)
[2019-12-16] MEDS: [UNRECOGNIZED DRUG - OTHER] GT SCH (05:29)
[2019-12-16] MEDS: CARBIDOPA/LEVODOPA 25-100MG TABLET GT SCH ×3 (05:30→21:03)
[2019-12-16] MEDS: LEVOTHYROXINE SODIUM 50 MCG TABLET GT SCH (05:30)
[2019-12-16] MEDS: FAMOTIDINE 20 MG TABLET GT SCH (05:30)
[2019-12-16 07:25] VITALS: BP 120/77
[2019-12-16] MEDS: COD LIVER OIL/ZINC OXIDE OINT 113 GM TUBE TP SCH ×2 (09:01→20:44)
[2019-12-16] MEDS: [UNRECOGNIZED DRUG - OTHER] GT SCH (09:01)
[2019-12-16] MEDS: ENOXAPARIN SODIUM 40 MG/0.4 ML DISP.SYRIN SQ SCH (09:01)
[2019-12-16] MEDS: CALCIUM CARB/VITAMIN D 600-400 MG TABLET GT SCH ×2 (09:01→20:44)
[2019-12-16] MEDS: HYDROGEN PEROXIDE 3% 118 ML BOTTLE TP SCH ×2 (09:51→21:43)
[2019-12-16 20:00] VITALS: BP 123/65
[2019-12-16] MEDS: MINERAL OIL/PETROLAT OPHT OINT 3.5 GM TUBE EACHEYE SCH (20:44)
[2019-12-16] MEDS: [UNRECOGNIZED DRUG - OTHER] GT SCH (20:44)
[2019-12-16] MEDS: PROTEIN SUPPLEMENT (PROSTAT) 30 ML LIQUID GT SCH (20:44)
[2019-12-17] MEDS: OSMOLITE 1.2 CAL 1,000 ML LIQUID GT PRN (01:00)
[2019-12-17] MEDS: IPRATROPIUM BROMIDE 0.5 MG/2.5 ML NEBU NEB SCH ×4 (01:10→19:35)
[2019-12-17] MEDS: ALBUTEROL SULFATE 2.5 MG/3 ML NEBU NEB SCH ×4 (01:10→19:35)
[2019-12-17] MEDS: POLYVINYL ALCOHOL OPHT DROPS 15 ML BOTTLE EACHEYE SCH ×6 (01:21→20:40)
[2019-12-17] MEDS: [UNRECOGNIZED DRUG - OTHER] GT SCH (06:06)
[2019-12-17] MEDS: FAMOTIDINE 20 MG TABLET GT SCH (06:07)
[2019-12-17] MEDS: LEVOTHYROXINE SODIUM 50 MCG TABLET GT SCH (06:07)
[2019-12-17] MEDS: CARBIDOPA/LEVODOPA 25-100MG TABLET GT SCH ×3 (06:07→21:42)
[2019-12-17 07:41] VITALS: BP 127/53
[2019-12-17] MEDS: CALCIUM CARB/VITAMIN D 600-400 MG TABLET GT SCH ×2 (08:29→20:41)
[2019-12-17] MEDS: [UNRECOGNIZED DRUG - OTHER] GT SCH (08:29)
[2019-12-17] MEDS: COD LIVER OIL/ZINC OXIDE OINT 113 GM TUBE TP SCH ×2 (08:30→20:43)
[2019-12-17] MEDS: ENOXAPARIN SODIUM 40 MG/0.4 ML DISP.SYRIN SQ SCH (08:32)
[2019-12-17] MEDS: HYDROGEN PEROXIDE 3% 118 ML BOTTLE TP SCH ×2 (09:05→20:27)
[2019-12-17] MEDS: diphenhydrAMINE 25 MG/10 ML UDC GT PRN (17:13)
[2019-12-17 20:18] VITALS: BP 124/66
[2019-12-17] MEDS: MINERAL OIL/PETROLAT OPHT OINT 3.5 GM TUBE EACHEYE SCH (20:40)
[2019-12-17] MEDS: PROTEIN SUPPLEMENT (PROSTAT) 30 ML LIQUID GT SCH (20:41)
[2019-12-17] MEDS: [UNRECOGNIZED DRUG - OTHER] GT SCH (20:41)
[2019-12-18] MEDS: ALBUTEROL SULFATE 2.5 MG/3 ML NEBU NEB SCH ×4 (00:40→19:02)
[2019-12-18] MEDS: IPRATROPIUM BROMIDE 0.5 MG/2.5 ML NEBU NEB SCH ×4 (00:40→19:02)
[2019-12-18] MEDS: POLYVINYL ALCOHOL OPHT DROPS 15 ML BOTTLE EACHEYE SCH ×6 (01:46→20:32)
[2019-12-18] MEDS: LEVOTHYROXINE SODIUM 50 MCG TABLET GT SCH (05:05)
[2019-12-18] MEDS: OSMOLITE 1.2 CAL 1,000 ML LIQUID GT PRN ×2 (05:05→17:49)
[2019-12-18] MEDS: [UNRECOGNIZED DRUG - OTHER] GT SCH (05:05)
[2019-12-18] MEDS: CARBIDOPA/LEVODOPA 25-100MG TABLET GT SCH ×3 (05:05→21:26)
[2019-12-18] MEDS: FAMOTIDINE 20 MG TABLET GT SCH (05:54)
[2019-12-18] MEDS: HYDROGEN PEROXIDE 3% 118 ML BOTTLE TP SCH ×2 (07:35→21:47)
[2019-12-18 08:00] VITALS: BP 136/58
[2019-12-18] MEDS: [UNRECOGNIZED DRUG - OTHER] GT SCH (08:19)
[2019-12-18] MEDS: CALCIUM CARB/VITAMIN D 600-400 MG TABLET GT SCH ×2 (08:19→20:32)
[2019-12-18] MEDS: ENOXAPARIN SODIUM 40 MG/0.4 ML DISP.SYRIN SQ SCH (08:20)
[2019-12-18] MEDS: COD LIVER OIL/ZINC OXIDE OINT 113 GM TUBE TP SCH ×2 (08:21→20:33)
[2019-12-18 20:16] VITALS: BP 124/60
[2019-12-18] MEDS: MINERAL OIL/PETROLAT OPHT OINT 3.5 GM TUBE EACHEYE SCH (20:32)
[2019-12-18] MEDS: [UNRECOGNIZED DRUG - OTHER] GT SCH (20:33)
[2019-12-18] MEDS: PROTEIN SUPPLEMENT (PROSTAT) 30 ML LIQUID GT SCH (20:33)
[2019-12-19] MEDS: ALBUTEROL SULFATE 2.5 MG/3 ML NEBU NEB SCH ×4 (01:16→19:03)
[2019-12-19] MEDS: IPRATROPIUM BROMIDE 0.5 MG/2.5 ML NEBU NEB SCH ×4 (01:16→19:03)
[2019-12-19] MEDS: POLYVINYL ALCOHOL OPHT DROPS 15 ML BOTTLE EACHEYE SCH ×6 (01:30→20:34)
[2019-12-19] MEDS: CARBIDOPA/LEVODOPA 25-100MG TABLET GT SCH ×3 (05:16→22:09)
[2019-12-19] MEDS: LEVOTHYROXINE SODIUM 50 MCG TABLET GT SCH (05:16)
[2019-12-19] MEDS: [UNRECOGNIZED DRUG - OTHER] GT SCH (05:16)
[2019-12-19] MEDS: FAMOTIDINE 20 MG TABLET GT SCH (05:36)
[2019-12-19] MEDS: HYDROGEN PEROXIDE 3% 118 ML BOTTLE TP SCH ×2 (07:35→21:19)
[2019-12-19 08:06] VITALS: BP 128/56
[2019-12-19] MEDS: CALCIUM CARB/VITAMIN D 600-400 MG TABLET GT SCH ×2 (09:05→20:35)
[2019-12-19] MEDS: [UNRECOGNIZED DRUG - OTHER] GT SCH (09:05)
[2019-12-19] MEDS: ENOXAPARIN SODIUM 40 MG/0.4 ML DISP.SYRIN SQ SCH (09:06)
[2019-12-19] MEDS: COD LIVER OIL/ZINC OXIDE OINT 113 GM TUBE TP SCH ×2 (09:07→20:36)
--- NOTE | 2019-12-19 14:00 | NUR ---
VIDEO CHAT PROVIDED WITH DAUGHTER, GHADA.
[2019-12-19] MEDS: OSMOLITE 1.2 CAL 1,000 ML LIQUID GT PRN (15:08)
[2019-12-19] MEDS: diphenhydrAMINE 25 MG/10 ML UDC GT PRN (17:47)
[2019-12-19] MEDS: MINERAL OIL/PETROLAT OPHT OINT 3.5 GM TUBE EACHEYE SCH (20:34)
[2019-12-19] MEDS: [UNRECOGNIZED DRUG - OTHER] GT SCH (20:35)
[2019-12-19] MEDS: PROTEIN SUPPLEMENT (PROSTAT) 30 ML LIQUID GT SCH (20:35)
[2019-12-19 20:59] VITALS: BP 137/60
[2019-12-20] MEDS: POLYVINYL ALCOHOL OPHT DROPS 15 ML BOTTLE EACHEYE SCH ×6 (01:00→21:16)
[2019-12-20] MEDS: ALBUTEROL SULFATE 2.5 MG/3 ML NEBU NEB SCH ×4 (01:02→19:10)
[2019-12-20] MEDS: IPRATROPIUM BROMIDE 0.5 MG/2.5 ML NEBU NEB SCH ×4 (01:02→19:10)
[2019-12-20] MEDS: CARBIDOPA/LEVODOPA 25-100MG TABLET GT SCH ×3 (05:49→21:17)
[2019-12-20] MEDS: LEVOTHYROXINE SODIUM 50 MCG TABLET GT SCH (05:49)
[2019-12-20] MEDS: [UNRECOGNIZED DRUG - OTHER] GT SCH (05:49)
[2019-12-20] MEDS: FAMOTIDINE 20 MG TABLET GT SCH (05:49)
[2019-12-20 07:25] VITALS: BP 137/55
[2019-12-20] MEDS: HYDROGEN PEROXIDE 3% 118 ML BOTTLE TP SCH ×2 (09:20→21:30)
[2019-12-20] MEDS: COD LIVER OIL/ZINC OXIDE OINT 113 GM TUBE TP SCH ×2 (09:42→21:16)
[2019-12-20] MEDS: [UNRECOGNIZED DRUG - OTHER] GT SCH (09:42)
[2019-12-20] MEDS: CALCIUM CARB/VITAMIN D 600-400 MG TABLET GT SCH ×2 (09:42→21:16)
[2019-12-20] MEDS: ENOXAPARIN SODIUM 40 MG/0.4 ML DISP.SYRIN SQ SCH (09:42)
[2019-12-20] MEDS: OSMOLITE 1.2 CAL 1,000 ML LIQUID GT PRN (13:11)
--- NOTE | 2019-12-20 16:00 | NUR ---
SEEN BY DANNIE Bailey AND WITH NNO.
[2019-12-20 20:37] VITALS: BP 136/86
[2019-12-20] MEDS: [UNRECOGNIZED DRUG - OTHER] GT SCH (21:16)
[2019-12-20] MEDS: PROTEIN SUPPLEMENT (PROSTAT) 30 ML LIQUID GT SCH (21:16)
[2019-12-20] MEDS: MINERAL OIL/PETROLAT OPHT OINT 3.5 GM TUBE EACHEYE SCH (21:16)
[2019-12-21] MEDS: ALBUTEROL SULFATE 2.5 MG/3 ML NEBU NEB SCH ×4 (01:00→19:15)
[2019-12-21] MEDS: IPRATROPIUM BROMIDE 0.5 MG/2.5 ML NEBU NEB SCH ×4 (01:00→19:15)
[2019-12-21] MEDS: POLYVINYL ALCOHOL OPHT DROPS 15 ML BOTTLE EACHEYE SCH ×6 (01:43→20:46)
[2019-12-21] MEDS: FAMOTIDINE 20 MG TABLET GT SCH (06:04)
[2019-12-21] MEDS: CARBIDOPA/LEVODOPA 25-100MG TABLET GT SCH ×3 (06:04→22:04)
[2019-12-21] MEDS: LEVOTHYROXINE SODIUM 50 MCG TABLET GT SCH (06:04)
[2019-12-21] MEDS: [UNRECOGNIZED DRUG - OTHER] GT SCH (06:04)
[2019-12-21] MEDS: HYDROGEN PEROXIDE 3% 118 ML BOTTLE TP SCH ×2 (07:25→21:13)
[2019-12-21 07:58] VITALS: BP 140/84
[2019-12-21] MEDS: CALCIUM CARB/VITAMIN D 600-400 MG TABLET GT SCH ×2 (09:10→20:47)
[2019-12-21] MEDS: COD LIVER OIL/ZINC OXIDE OINT 113 GM TUBE TP SCH ×2 (09:11→20:47)
[2019-12-21] MEDS: [UNRECOGNIZED DRUG - OTHER] GT SCH (09:11)
[2019-12-21] MEDS: ENOXAPARIN SODIUM 40 MG/0.4 ML DISP.SYRIN SQ SCH (09:34)
[2019-12-21] MEDS: OSMOLITE 1.2 CAL 1,000 ML LIQUID GT PRN (11:37)
[2019-12-21 20:00] VITALS: BP 123/59
[2019-12-21] MEDS: MINERAL OIL/PETROLAT OPHT OINT 3.5 GM TUBE EACHEYE SCH (20:47)
[2019-12-21] MEDS: PROTEIN SUPPLEMENT (PROSTAT) 30 ML LIQUID GT SCH (20:47)
[2019-12-21] MEDS: [UNRECOGNIZED DRUG - OTHER] GT SCH (20:47)
[2019-12-22] MEDS: ALBUTEROL SULFATE 2.5 MG/3 ML NEBU NEB SCH ×4 (00:55→19:02)
[2019-12-22] MEDS: IPRATROPIUM BROMIDE 0.5 MG/2.5 ML NEBU NEB SCH ×4 (00:55→19:02)
[2019-12-22] MEDS: POLYVINYL ALCOHOL OPHT DROPS 15 ML BOTTLE EACHEYE SCH ×6 (01:22→20:57)
[2019-12-22] MEDS: [UNRECOGNIZED DRUG - OTHER] GT SCH (05:56)
[2019-12-22] MEDS: ALENDRONATE GT SCH (05:56)
[2019-12-22] MEDS: LEVOTHYROXINE SODIUM 50 MCG TABLET GT SCH (05:56)
[2019-12-22] MEDS: FAMOTIDINE 20 MG TABLET GT SCH (05:56)
[2019-12-22] MEDS: CARBIDOPA/LEVODOPA 25-100MG TABLET GT SCH ×3 (05:56→21:01)
[2019-12-22 07:29] VITALS: BP 145/52
[2019-12-22] MEDS: HYDROGEN PEROXIDE 3% 118 ML BOTTLE TP SCH ×2 (08:21→21:46)
[2019-12-22] MEDS: CALCIUM CARB/VITAMIN D 600-400 MG TABLET GT SCH ×2 (08:50→20:58)
[2019-12-22] MEDS: [UNRECOGNIZED DRUG - OTHER] GT SCH (08:50)
[2019-12-22] MEDS: COD LIVER OIL/ZINC OXIDE OINT 113 GM TUBE TP SCH ×2 (08:51→20:58)
[2019-12-22] MEDS: ENOXAPARIN SODIUM 40 MG/0.4 ML DISP.SYRIN SQ SCH (08:51)
--- NOTE | 2019-12-22 19:00 | NUR ---
Covid 19 results negative.
[2019-12-22 20:57] VITALS: BP 129/56
[2019-12-22] MEDS: MINERAL OIL/PETROLAT OPHT OINT 3.5 GM TUBE EACHEYE SCH (20:57)
[2019-12-22] MEDS: [UNRECOGNIZED DRUG - OTHER] GT SCH (20:58)
[2019-12-22] MEDS: PROTEIN SUPPLEMENT (PROSTAT) 30 ML LIQUID GT SCH (20:58)
[2019-12-23] MEDS: ALBUTEROL SULFATE 2.5 MG/3 ML NEBU NEB SCH ×4 (01:05→19:03)
[2019-12-23] MEDS: IPRATROPIUM BROMIDE 0.5 MG/2.5 ML NEBU NEB SCH ×4 (01:05→19:03)
[2019-12-23] MEDS: POLYVINYL ALCOHOL OPHT DROPS 15 ML BOTTLE EACHEYE SCH ×6 (01:28→21:40)
[2019-12-23] MEDS: [UNRECOGNIZED DRUG - OTHER] GT SCH (06:50)
[2019-12-23] MEDS: OSMOLITE 1.2 CAL 1,000 ML LIQUID GT PRN (06:50)
[2019-12-23] MEDS: CARBIDOPA/LEVODOPA 25-100MG TABLET GT SCH ×3 (06:50→21:41)
[2019-12-23] MEDS: LEVOTHYROXINE SODIUM 50 MCG TABLET GT SCH (06:50)
[2019-12-23] MEDS: FAMOTIDINE 20 MG TABLET GT SCH (06:50)
[2019-12-23 07:32] VITALS: BP 120/64
[2019-12-23] MEDS: CALCIUM CARB/VITAMIN D 600-400 MG TABLET GT SCH ×2 (08:56→21:40)
[2019-12-23] MEDS: ENOXAPARIN SODIUM 40 MG/0.4 ML DISP.SYRIN SQ SCH (08:56)
[2019-12-23] MEDS: COD LIVER OIL/ZINC OXIDE OINT 113 GM TUBE TP SCH ×2 (08:56→21:41)
[2019-12-23] MEDS: [UNRECOGNIZED DRUG - OTHER] GT SCH (08:56)
[2019-12-23] MEDS: HYDROGEN PEROXIDE 3% 118 ML BOTTLE TP SCH ×2 (09:16→20:53)
[2019-12-23] MEDS: MINERAL OIL/PETROLAT OPHT OINT 3.5 GM TUBE EACHEYE SCH (21:40)
[2019-12-23] MEDS: PROTEIN SUPPLEMENT (PROSTAT) 30 ML LIQUID GT SCH (21:41)
[2019-12-23] MEDS: [UNRECOGNIZED DRUG - OTHER] GT SCH (21:41)
[2019-12-23 22:18] VITALS: BP 150/64
[2019-12-24] MEDS: POLYVINYL ALCOHOL OPHT DROPS 15 ML BOTTLE EACHEYE SCH ×6 (01:01→21:46)
[2019-12-24] MEDS: IPRATROPIUM BROMIDE 0.5 MG/2.5 ML NEBU NEB SCH ×4 (01:02→19:06)
[2019-12-24] MEDS: ALBUTEROL SULFATE 2.5 MG/3 ML NEBU NEB SCH ×4 (01:02→19:06)
[2019-12-24] MEDS: OSMOLITE 1.2 CAL 1,000 ML LIQUID GT PRN (01:46)
[2019-12-24] MEDS: [UNRECOGNIZED DRUG - OTHER] GT SCH (05:17)
[2019-12-24] MEDS: LEVOTHYROXINE SODIUM 50 MCG TABLET GT SCH (05:17)
[2019-12-24] MEDS: CARBIDOPA/LEVODOPA 25-100MG TABLET GT SCH ×3 (05:17→21:47)
[2019-12-24] MEDS: FAMOTIDINE 20 MG TABLET GT SCH (05:32)
[2019-12-24 07:33] VITALS: BP 125/60
[2019-12-24] MEDS: CALCIUM CARB/VITAMIN D 600-400 MG TABLET GT SCH ×2 (08:46→21:46)
[2019-12-24] MEDS: [UNRECOGNIZED DRUG - OTHER] GT SCH (08:46)
[2019-12-24] MEDS: ENOXAPARIN SODIUM 40 MG/0.4 ML DISP.SYRIN SQ SCH (08:47)
[2019-12-24] MEDS: COD LIVER OIL/ZINC OXIDE OINT 113 GM TUBE TP SCH ×2 (08:47→21:47)
[2019-12-24] MEDS: HYDROGEN PEROXIDE 3% 118 ML BOTTLE TP SCH ×2 (09:00→21:02)
--- NOTE | 2019-12-24 14:21 | NUR ---
zoom provided to daughter.
[2019-12-24] MEDS: MINERAL OIL/PETROLAT OPHT OINT 3.5 GM TUBE EACHEYE SCH (21:46)
[2019-12-24] MEDS: [UNRECOGNIZED DRUG - OTHER] GT SCH (21:46)
[2019-12-24] MEDS: PROTEIN SUPPLEMENT (PROSTAT) 30 ML LIQUID GT SCH (21:47)
[2019-12-24 22:25] VITALS: BP 110/56
[2019-12-25] MEDS: ALBUTEROL SULFATE 2.5 MG/3 ML NEBU NEB SCH ×4 (00:32→19:10)
[2019-12-25] MEDS: IPRATROPIUM BROMIDE 0.5 MG/2.5 ML NEBU NEB SCH ×4 (00:32→19:10)
[2019-12-25] MEDS: POLYVINYL ALCOHOL OPHT DROPS 15 ML BOTTLE EACHEYE SCH ×6 (01:03→20:57)
[2019-12-25] MEDS: OSMOLITE 1.2 CAL 1,000 ML LIQUID GT PRN (01:28)
[2019-12-25] MEDS: [UNRECOGNIZED DRUG - OTHER] GT SCH (05:06)
[2019-12-25] MEDS: CARBIDOPA/LEVODOPA 25-100MG TABLET GT SCH ×3 (05:06→21:05)
[2019-12-25] MEDS: LEVOTHYROXINE SODIUM 50 MCG TABLET GT SCH (05:06)
[2019-12-25] MEDS: FAMOTIDINE 20 MG TABLET GT SCH (05:34)
[2019-12-25 07:37] VITALS: BP 131/65
[2019-12-25] MEDS: CALCIUM CARB/VITAMIN D 600-400 MG TABLET GT SCH ×2 (08:37→20:57)
[2019-12-25] MEDS: [UNRECOGNIZED DRUG - OTHER] GT SCH (08:38)
[2019-12-25] MEDS: COD LIVER OIL/ZINC OXIDE OINT 113 GM TUBE TP SCH ×2 (08:39→20:57)
[2019-12-25] MEDS: ENOXAPARIN SODIUM 40 MG/0.4 ML DISP.SYRIN SQ SCH (08:40)
[2019-12-25] MEDS: HYDROGEN PEROXIDE 3% 118 ML BOTTLE TP SCH ×2 (09:10→20:28)
[2019-12-25] MEDS: [UNRECOGNIZED DRUG - OTHER] GT SCH (20:57)
[2019-12-25] MEDS: MINERAL OIL/PETROLAT OPHT OINT 3.5 GM TUBE EACHEYE SCH (20:57)
[2019-12-25] MEDS: PROTEIN SUPPLEMENT (PROSTAT) 30 ML LIQUID GT SCH (20:57)
[2019-12-25 22:37] VITALS: BP 137/61
[2019-12-26] MEDS: OSMOLITE 1.2 CAL 1,000 ML LIQUID GT PRN (00:13)
[2019-12-26] MEDS: diphenhydrAMINE 25 MG/10 ML UDC GT PRN (00:13)
[2019-12-26] MEDS: POLYVINYL ALCOHOL OPHT DROPS 15 ML BOTTLE EACHEYE SCH ×6 (00:14→21:25)
[2019-12-26] MEDS: ALBUTEROL SULFATE 2.5 MG/3 ML NEBU NEB SCH ×4 (00:57→19:15)
[2019-12-26] MEDS: IPRATROPIUM BROMIDE 0.5 MG/2.5 ML NEBU NEB SCH ×4 (00:57→19:15)
[2019-12-26] MEDS: CARBIDOPA/LEVODOPA 25-100MG TABLET GT SCH ×3 (05:22→21:26)
[2019-12-26] MEDS: LEVOTHYROXINE SODIUM 50 MCG TABLET GT SCH (05:22)
[2019-12-26] MEDS: [UNRECOGNIZED DRUG - OTHER] GT SCH (05:22)
[2019-12-26] MEDS: FAMOTIDINE 20 MG TABLET GT SCH (05:35)
[2019-12-26 07:51] VITALS: BP 132/62
[2019-12-26] MEDS: COD LIVER OIL/ZINC OXIDE OINT 113 GM TUBE TP SCH ×2 (09:10→21:26)
[2019-12-26] MEDS: ENOXAPARIN SODIUM 40 MG/0.4 ML DISP.SYRIN SQ SCH (09:10)
[2019-12-26] MEDS: [UNRECOGNIZED DRUG - OTHER] GT SCH (09:10)
[2019-12-26] MEDS: CALCIUM CARB/VITAMIN D 600-400 MG TABLET GT SCH ×2 (09:10→21:25)
[2019-12-26] MEDS: HYDROGEN PEROXIDE 3% 118 ML BOTTLE TP SCH ×2 (09:21→21:15)
--- NOTE | 2019-12-26 13:00 | NUR ---
Seen and examined by Dr Nichols, no orders orders. Addendum: 12/26/19 at 2014 by SORAYA CABALLERO RN no new orders noted.
[2019-12-26] MEDS: [UNRECOGNIZED DRUG - OTHER] GT SCH (21:25)
[2019-12-26] MEDS: PROTEIN SUPPLEMENT (PROSTAT) 30 ML LIQUID GT SCH (21:25)
[2019-12-26] MEDS: MINERAL OIL/PETROLAT OPHT OINT 3.5 GM TUBE EACHEYE SCH (21:25)
[2019-12-26 22:57] VITALS: BP 127/62
[2019-12-27] MEDS: ALBUTEROL SULFATE 2.5 MG/3 ML NEBU NEB SCH ×4 (00:56→19:14)
[2019-12-27] MEDS: IPRATROPIUM BROMIDE 0.5 MG/2.5 ML NEBU NEB SCH ×4 (00:56→19:14)
[2019-12-27] MEDS: POLYVINYL ALCOHOL OPHT DROPS 15 ML BOTTLE EACHEYE SCH ×6 (01:08→21:36)
[2019-12-27] MEDS: OSMOLITE 1.2 CAL 1,000 ML LIQUID GT PRN (01:46)
[2019-12-27] MEDS: diphenhydrAMINE 25 MG/10 ML UDC GT PRN (01:46)
[2019-12-27] MEDS: LEVOTHYROXINE SODIUM 50 MCG TABLET GT SCH (05:49)
[2019-12-27] MEDS: FAMOTIDINE 20 MG TABLET GT SCH (05:49)
[2019-12-27] MEDS: [UNRECOGNIZED DRUG - OTHER] GT SCH (05:49)
[2019-12-27] MEDS: CARBIDOPA/LEVODOPA 25-100MG TABLET GT SCH ×3 (05:49→21:37)
[2019-12-27 07:38] VITALS: BP 139/62
--- NOTE | 2019-12-27 08:30 | NUR ---
PATIENT FAMILY WAS CALLED FOLLOWUP ON MEDICATION [facility] WILL SEND PER FAMILY
[2019-12-27] MEDS: CALCIUM CARB/VITAMIN D 600-400 MG TABLET GT SCH ×2 (08:44→21:36)
[2019-12-27] MEDS: ENOXAPARIN SODIUM 40 MG/0.4 ML DISP.SYRIN SQ SCH (08:45)
[2019-12-27] MEDS: COD LIVER OIL/ZINC OXIDE OINT 113 GM TUBE TP SCH ×2 (08:45→21:37)
[2019-12-27] MEDS: [UNRECOGNIZED DRUG - OTHER] GT SCH (09:00)
[2019-12-27] MEDS: HYDROGEN PEROXIDE 3% 118 ML BOTTLE TP SCH ×2 (09:25→21:29)
[2019-12-27 20:26] VITALS: BP 115/54
[2019-12-27] MEDS: [UNRECOGNIZED DRUG - OTHER] GT SCH (21:00)
[2019-12-27] MEDS: MINERAL OIL/PETROLAT OPHT OINT 3.5 GM TUBE EACHEYE SCH (21:36)
[2019-12-27] MEDS: PROTEIN SUPPLEMENT (PROSTAT) 30 ML LIQUID GT SCH (21:37)
[2019-12-28] MEDS: ALBUTEROL SULFATE 2.5 MG/3 ML NEBU NEB SCH ×4 (00:32→19:08)
[2019-12-28] MEDS: IPRATROPIUM BROMIDE 0.5 MG/2.5 ML NEBU NEB SCH ×4 (00:32→19:08)
[2019-12-28] MEDS: POLYVINYL ALCOHOL OPHT DROPS 15 ML BOTTLE EACHEYE SCH ×6 (01:07→21:13)
[2019-12-28] MEDS: LEVOTHYROXINE SODIUM 50 MCG TABLET GT SCH (05:20)
[2019-12-28] MEDS: [UNRECOGNIZED DRUG - OTHER] GT SCH (05:20)
[2019-12-28] MEDS: CARBIDOPA/LEVODOPA 25-100MG TABLET GT SCH ×3 (05:20→21:17)
[2019-12-28] MEDS: FAMOTIDINE 20 MG TABLET GT SCH (05:43)
[2019-12-28] MEDS: OSMOLITE 1.2 CAL 1,000 ML LIQUID GT PRN ×2 (05:44→19:20)
[2019-12-28 07:38] VITALS: BP 138/47
[2019-12-28] MEDS: CALCIUM CARB/VITAMIN D 600-400 MG TABLET GT SCH ×2 (08:23→21:13)
[2019-12-28] MEDS: COD LIVER OIL/ZINC OXIDE OINT 113 GM TUBE TP SCH ×2 (08:24→21:17)
[2019-12-28] MEDS: ENOXAPARIN SODIUM 40 MG/0.4 ML DISP.SYRIN SQ SCH (08:25)
[2019-12-28] MEDS: HYDROGEN PEROXIDE 3% 118 ML BOTTLE TP SCH ×2 (08:43→20:52)
[2019-12-28] MEDS: [UNRECOGNIZED DRUG - OTHER] GT SCH (09:00)
--- NOTE | 2019-12-28 09:00 | NUR ---
PATIENT FAMILY WAS CALLED TO FOLLOWUP ON MEDICATION [employer] WILL SEND PER DAUGHTER.
[2019-12-28 20:20] VITALS: BP 126/60
[2019-12-28] MEDS: [UNRECOGNIZED DRUG - OTHER] GT SCH (21:00)
[2019-12-28] MEDS: MINERAL OIL/PETROLAT OPHT OINT 3.5 GM TUBE EACHEYE SCH (21:13)
[2019-12-28] MEDS: PROTEIN SUPPLEMENT (PROSTAT) 30 ML LIQUID GT SCH (21:17)
[2019-12-29] MEDS: ALBUTEROL SULFATE 2.5 MG/3 ML NEBU NEB SCH ×4 (00:34→19:15)
[2019-12-29] MEDS: IPRATROPIUM BROMIDE 0.5 MG/2.5 ML NEBU NEB SCH ×4 (00:34→19:15)
[2019-12-29] MEDS: POLYVINYL ALCOHOL OPHT DROPS 15 ML BOTTLE EACHEYE SCH ×6 (01:20→21:36)
[2019-12-29] MEDS: FAMOTIDINE 20 MG TABLET GT SCH (05:55)
[2019-12-29] MEDS: CARBIDOPA/LEVODOPA 25-100MG TABLET GT SCH ×3 (05:55→21:38)
[2019-12-29] MEDS: ALENDRONATE GT SCH (05:55)
[2019-12-29] MEDS: [UNRECOGNIZED DRUG - OTHER] GT SCH (05:55)
[2019-12-29] MEDS: LEVOTHYROXINE SODIUM 50 MCG TABLET GT SCH (05:55)
[2019-12-29 07:31] VITALS: BP 132/47
[2019-12-29] MEDS: HYDROGEN PEROXIDE 3% 118 ML BOTTLE TP SCH ×2 (07:31→19:15)
[2019-12-29] MEDS: CALCIUM CARB/VITAMIN D 600-400 MG TABLET GT SCH ×2 (08:59→21:36)
[2019-12-29] MEDS: ENOXAPARIN SODIUM 40 MG/0.4 ML DISP.SYRIN SQ SCH (09:00)
[2019-12-29] MEDS: COD LIVER OIL/ZINC OXIDE OINT 113 GM TUBE TP SCH ×2 (09:00→21:37)
[2019-12-29] MEDS: [UNRECOGNIZED DRUG - OTHER] GT SCH (09:00)
--- NOTE | 2019-12-29 09:17 | NUR ---
MEDICATION NOT AVAILABLE. PATIENT FAMILY WAS CALLED TO FOLLOWUP ON MEDICATION [employer] WILL SEND PER DAUGHTER.
[2019-12-29] MEDS: OSMOLITE 1.2 CAL 1,000 ML LIQUID GT PRN (18:13)
[2019-12-29 19:57] VITALS: BP 138/68
[2019-12-29] MEDS: [UNRECOGNIZED DRUG - OTHER] GT SCH (21:00)
[2019-12-29] MEDS: MINERAL OIL/PETROLAT OPHT OINT 3.5 GM TUBE EACHEYE SCH (21:36)
[2019-12-29] MEDS: PROTEIN SUPPLEMENT (PROSTAT) 30 ML LIQUID GT SCH (21:37)
[2019-12-30] MEDS: IPRATROPIUM BROMIDE 0.5 MG/2.5 ML NEBU NEB SCH ×4 (00:59→19:10)
[2019-12-30] MEDS: ALBUTEROL SULFATE 2.5 MG/3 ML NEBU NEB SCH ×4 (01:00→19:10)
[2019-12-30] MEDS: POLYVINYL ALCOHOL OPHT DROPS 15 ML BOTTLE EACHEYE SCH ×6 (01:20→21:44)
[2019-12-30] MEDS: LEVOTHYROXINE SODIUM 50 MCG TABLET GT SCH (06:20)
[2019-12-30] MEDS: [UNRECOGNIZED DRUG - OTHER] GT SCH (06:20)
[2019-12-30] MEDS: FAMOTIDINE 20 MG TABLET GT SCH (06:20)
[2019-12-30] MEDS: CARBIDOPA/LEVODOPA 25-100MG TABLET GT SCH ×3 (06:20→21:44)
[2019-12-30] MEDS: HYDROGEN PEROXIDE 3% 118 ML BOTTLE TP SCH ×2 (07:50→21:24)
[2019-12-30] MEDS: CALCIUM CARB/VITAMIN D 600-400 MG TABLET GT SCH ×2 (08:58→21:44)
[2019-12-30] MEDS: COD LIVER OIL/ZINC OXIDE OINT 113 GM TUBE TP SCH ×2 (08:59→21:44)
[2019-12-30] MEDS: ENOXAPARIN SODIUM 40 MG/0.4 ML DISP.SYRIN SQ SCH (08:59)
[2019-12-30] MEDS: [UNRECOGNIZED DRUG - OTHER] GT SCH (09:00)
--- NOTE | 2019-12-30 09:00 | NUR ---
MEDICATION NOT AVAILABLE. PATIENT FAMILY WAS CALLED TO FOLLOWUP ON MEDICATION [employer] WILL SEND PER DAUGHTER.
[2019-12-30 16:00] VITALS: BP 142/62
[2019-12-30] MEDS: OSMOLITE 1.2 CAL 1,000 ML LIQUID GT PRN (17:34)
[2019-12-30 20:03] VITALS: BP 117/56
[2019-12-30] MEDS: [UNRECOGNIZED DRUG - OTHER] GT SCH (21:44)
[2019-12-30] MEDS: PROTEIN SUPPLEMENT (PROSTAT) 30 ML LIQUID GT SCH (21:44)
[2019-12-30] MEDS: MINERAL OIL/PETROLAT OPHT OINT 3.5 GM TUBE EACHEYE SCH (21:44)
[2019-12-31] MEDS: IPRATROPIUM BROMIDE 0.5 MG/2.5 ML NEBU NEB SCH ×4 (00:55→19:04)
[2019-12-31] MEDS: ALBUTEROL SULFATE 2.5 MG/3 ML NEBU NEB SCH ×4 (00:56→19:04)
[2019-12-31] MEDS: POLYVINYL ALCOHOL OPHT DROPS 15 ML BOTTLE EACHEYE SCH ×6 (01:00→20:06)
[2019-12-31] MEDS: [UNRECOGNIZED DRUG - OTHER] GT SCH (06:23)
[2019-12-31] MEDS: LEVOTHYROXINE SODIUM 50 MCG TABLET GT SCH (06:23)
[2019-12-31] MEDS: CARBIDOPA/LEVODOPA 25-100MG TABLET GT SCH ×3 (06:23→21:25)
[2019-12-31] MEDS: FAMOTIDINE 20 MG TABLET GT SCH (06:23)
[2019-12-31] MEDS: HYDROGEN PEROXIDE 3% 118 ML BOTTLE TP SCH ×2 (07:18→19:04)
[2019-12-31 07:29] VITALS: BP 127/64
[2019-12-31 07:32] VITALS: BP 138/62
[2019-12-31] MEDS: [UNRECOGNIZED DRUG - OTHER] GT SCH (08:41)
[2019-12-31] MEDS: CALCIUM CARB/VITAMIN D 600-400 MG TABLET GT SCH ×2 (08:41→20:07)
[2019-12-31] MEDS: ENOXAPARIN SODIUM 40 MG/0.4 ML DISP.SYRIN SQ SCH (08:41)
[2019-12-31] MEDS: COD LIVER OIL/ZINC OXIDE OINT 113 GM TUBE TP SCH ×2 (08:41→20:07)
[2019-12-31] MEDS: OSMOLITE 1.2 CAL 1,000 ML LIQUID GT PRN (12:14)
[2019-12-31] MEDS: [UNRECOGNIZED DRUG - OTHER] GT SCH (20:07)
[2019-12-31] MEDS: PROTEIN SUPPLEMENT (PROSTAT) 30 ML LIQUID GT SCH (20:07)
[2019-12-31 20:44] VITALS: BP 118/57
[2019-12-31] MEDS: MINERAL OIL/PETROLAT OPHT OINT 3.5 GM TUBE EACHEYE SCH (21:25)
[2020-01-01] MEDS: POLYVINYL ALCOHOL OPHT DROPS 15 ML BOTTLE EACHEYE SCH ×6 (00:07→20:28)
[2020-01-01] MEDS: IPRATROPIUM BROMIDE 0.5 MG/2.5 ML NEBU NEB SCH ×4 (00:35→19:10)
[2020-01-01] MEDS: ALBUTEROL SULFATE 2.5 MG/3 ML NEBU NEB SCH ×4 (00:35→19:10)
[2020-01-01] MEDS: FAMOTIDINE 20 MG TABLET GT SCH (05:47)
[2020-01-01] MEDS: LEVOTHYROXINE SODIUM 50 MCG TABLET GT SCH (05:47)
[2020-01-01] MEDS: [UNRECOGNIZED DRUG - OTHER] GT SCH (05:47)
[2020-01-01] MEDS: CARBIDOPA/LEVODOPA 25-100MG TABLET GT SCH ×3 (05:47→21:18)
[2020-01-01] MEDS: HYDROGEN PEROXIDE 3% 118 ML BOTTLE TP SCH ×2 (07:24→21:29)
[2020-01-01 07:29] VITALS: BP 141/61
[2020-01-01] MEDS: CALCIUM CARB/VITAMIN D 600-400 MG TABLET GT SCH ×2 (09:25→20:28)
[2020-01-01] MEDS: [UNRECOGNIZED DRUG - OTHER] GT SCH (09:25)
[2020-01-01] MEDS: COD LIVER OIL/ZINC OXIDE OINT 113 GM TUBE TP SCH ×2 (09:25→20:28)
[2020-01-01] MEDS: ENOXAPARIN SODIUM 40 MG/0.4 ML DISP.SYRIN SQ SCH (09:49)
[2020-01-01 20:00] VITALS: BP 102/57
[2020-01-01] MEDS: [UNRECOGNIZED DRUG - OTHER] GT SCH (20:28)
[2020-01-01] MEDS: PROTEIN SUPPLEMENT (PROSTAT) 30 ML LIQUID GT SCH (20:28)
[2020-01-01] MEDS: MINERAL OIL/PETROLAT OPHT OINT 3.5 GM TUBE EACHEYE SCH (20:28)
[2020-01-02] MEDS: POLYVINYL ALCOHOL OPHT DROPS 15 ML BOTTLE EACHEYE SCH ×6 (00:41→20:28)
[2020-01-02] MEDS: IPRATROPIUM BROMIDE 0.5 MG/2.5 ML NEBU NEB SCH ×4 (00:43→19:10)
[2020-01-02] MEDS: ALBUTEROL SULFATE 2.5 MG/3 ML NEBU NEB SCH ×4 (00:43→19:10)
[2020-01-02] MEDS: [UNRECOGNIZED DRUG - OTHER] GT SCH (05:31)
[2020-01-02] MEDS: LEVOTHYROXINE SODIUM 50 MCG TABLET GT SCH (05:31)
[2020-01-02] MEDS: FAMOTIDINE 20 MG TABLET GT SCH (05:31)
[2020-01-02] MEDS: CARBIDOPA/LEVODOPA 25-100MG TABLET GT SCH ×3 (05:31→21:10)
[2020-01-02] MEDS: HYDROGEN PEROXIDE 3% 118 ML BOTTLE TP SCH ×2 (07:22→21:22)
[2020-01-02 07:27] VITALS: BP 143/52
[2020-01-02] MEDS: CALCIUM CARB/VITAMIN D 600-400 MG TABLET GT SCH ×2 (08:40→20:28)
[2020-01-02] MEDS: [UNRECOGNIZED DRUG - OTHER] GT SCH (08:40)
[2020-01-02] MEDS: ENOXAPARIN SODIUM 40 MG/0.4 ML DISP.SYRIN SQ SCH (08:41)
[2020-01-02] MEDS: COD LIVER OIL/ZINC OXIDE OINT 113 GM TUBE TP SCH ×2 (08:41→20:28)
--- NOTE | 2020-01-02 16:07 | NUR ---
NEW ORDER WAS CARRIED OUT FROMDR. JASON FOR COVID 19 TEST PER [facility] REQUIREMENT ,PT'S DTR. GHADA IN AGREEMENT
[2020-01-02 20:27] VITALS: BP 124/60
[2020-01-02] MEDS: PROTEIN SUPPLEMENT (PROSTAT) 30 ML LIQUID GT SCH (20:28)
[2020-01-02] MEDS: [UNRECOGNIZED DRUG - OTHER] GT SCH (20:28)
[2020-01-02] MEDS: MINERAL OIL/PETROLAT OPHT OINT 3.5 GM TUBE EACHEYE SCH (21:10)
[2020-01-02] MEDS: OSMOLITE 1.2 CAL 1,000 ML LIQUID GT PRN (23:43)
[2020-01-03] MEDS: POLYVINYL ALCOHOL OPHT DROPS 15 ML BOTTLE EACHEYE SCH ×6 (00:13→20:32)
[2020-01-03] MEDS: IPRATROPIUM BROMIDE 0.5 MG/2.5 ML NEBU NEB SCH ×4 (00:34→19:10)
[2020-01-03] MEDS: ALBUTEROL SULFATE 2.5 MG/3 ML NEBU NEB SCH ×4 (00:34→19:10)
[2020-01-03] MEDS: LEVOTHYROXINE SODIUM 50 MCG TABLET GT SCH (05:36)
[2020-01-03] MEDS: [UNRECOGNIZED DRUG - OTHER] GT SCH (05:36)
[2020-01-03] MEDS: FAMOTIDINE 20 MG TABLET GT SCH (05:36)
[2020-01-03] MEDS: CARBIDOPA/LEVODOPA 25-100MG TABLET GT SCH ×3 (05:36→21:13)
[2020-01-03] MEDS: HYDROGEN PEROXIDE 3% 118 ML BOTTLE TP SCH ×2 (07:39→21:05)
[2020-01-03 07:51] VITALS: BP 142/56
[2020-01-03] MEDS: [UNRECOGNIZED DRUG - OTHER] GT SCH (08:29)
[2020-01-03] MEDS: CALCIUM CARB/VITAMIN D 600-400 MG TABLET GT SCH ×2 (08:29→20:32)
[2020-01-03] MEDS: COD LIVER OIL/ZINC OXIDE OINT 113 GM TUBE TP SCH ×2 (08:30→20:33)
[2020-01-03] MEDS: ENOXAPARIN SODIUM 40 MG/0.4 ML DISP.SYRIN SQ SCH (08:30)
--- NOTE | 2020-01-03 14:09 | NUR ---
PT'S DTR. AWARE THAT PT. IS NEGATIVE FOR COVID 19 TEST FROM YESTERDAY.
[2020-01-03] MEDS: MINERAL OIL/PETROLAT OPHT OINT 3.5 GM TUBE EACHEYE SCH (20:32)
[2020-01-03] MEDS: PROTEIN SUPPLEMENT (PROSTAT) 30 ML LIQUID GT SCH (20:33)
[2020-01-03 20:37] VITALS: BP 130/62
[2020-01-03] MEDS: [UNRECOGNIZED DRUG - OTHER] GT SCH (21:13)
[2020-01-04] MEDS: IPRATROPIUM BROMIDE 0.5 MG/2.5 ML NEBU NEB SCH ×4 (00:55→19:01)
[2020-01-04] MEDS: ALBUTEROL SULFATE 2.5 MG/3 ML NEBU NEB SCH ×4 (00:55→19:01)
[2020-01-04] MEDS: POLYVINYL ALCOHOL OPHT DROPS 15 ML BOTTLE EACHEYE SCH ×6 (01:45→21:17)
[2020-01-04] MEDS: OSMOLITE 1.2 CAL 1,000 ML LIQUID GT PRN (01:46)
[2020-01-04] MEDS: [UNRECOGNIZED DRUG - OTHER] GT SCH (05:16)
[2020-01-04] MEDS: CARBIDOPA/LEVODOPA 25-100MG TABLET GT SCH ×3 (05:16→21:17)
[2020-01-04] MEDS: LEVOTHYROXINE SODIUM 50 MCG TABLET GT SCH (05:16)
[2020-01-04] MEDS: FAMOTIDINE 20 MG TABLET GT SCH (05:32)
[2020-01-04 07:35] VITALS: BP 142/60
[2020-01-04] MEDS: HYDROGEN PEROXIDE 3% 118 ML BOTTLE TP SCH ×2 (08:24→19:01)
[2020-01-04] MEDS: [UNRECOGNIZED DRUG - OTHER] GT SCH (08:55)
[2020-01-04] MEDS: CALCIUM CARB/VITAMIN D 600-400 MG TABLET GT SCH ×2 (08:55→21:17)
[2020-01-04] MEDS: COD LIVER OIL/ZINC OXIDE OINT 113 GM TUBE TP SCH ×2 (08:56→21:17)
[2020-01-04] MEDS: ENOXAPARIN SODIUM 40 MG/0.4 ML DISP.SYRIN SQ SCH (08:56)
[2020-01-04 19:46] VITALS: BP 123/59
[2020-01-04] MEDS: MINERAL OIL/PETROLAT OPHT OINT 3.5 GM TUBE EACHEYE SCH (21:17)
[2020-01-04] MEDS: [UNRECOGNIZED DRUG - OTHER] GT SCH (21:17)
[2020-01-04] MEDS: PROTEIN SUPPLEMENT (PROSTAT) 30 ML LIQUID GT SCH (21:17)
[2020-01-05] MEDS: IPRATROPIUM BROMIDE 0.5 MG/2.5 ML NEBU NEB SCH ×4 (00:31→19:20)
[2020-01-05] MEDS: ALBUTEROL SULFATE 2.5 MG/3 ML NEBU NEB SCH ×4 (00:31→19:20)
[2020-01-05] MEDS: POLYVINYL ALCOHOL OPHT DROPS 15 ML BOTTLE EACHEYE SCH ×6 (01:38→20:37)
[2020-01-05] MEDS: [UNRECOGNIZED DRUG - OTHER] GT SCH (05:36)
[2020-01-05] MEDS: CARBIDOPA/LEVODOPA 25-100MG TABLET GT SCH ×3 (05:36→22:00)
[2020-01-05] MEDS: ALENDRONATE GT SCH (05:36)
[2020-01-05] MEDS: LEVOTHYROXINE SODIUM 50 MCG TABLET GT SCH (05:37)
[2020-01-05] MEDS: FAMOTIDINE 20 MG TABLET GT SCH (05:37)
[2020-01-05] MEDS: OSMOLITE 1.2 CAL 1,000 ML LIQUID GT PRN (05:37)
[2020-01-05 07:30] VITALS: BP 136/57
[2020-01-05] MEDS: CALCIUM CARB/VITAMIN D 600-400 MG TABLET GT SCH ×2 (08:56→20:38)
[2020-01-05] MEDS: [UNRECOGNIZED DRUG - OTHER] GT SCH (08:57)
[2020-01-05] MEDS: COD LIVER OIL/ZINC OXIDE OINT 113 GM TUBE TP SCH ×2 (08:57→20:38)
[2020-01-05] MEDS: ENOXAPARIN SODIUM 40 MG/0.4 ML DISP.SYRIN SQ SCH (08:58)
[2020-01-05] MEDS: HYDROGEN PEROXIDE 3% 118 ML BOTTLE TP SCH ×2 (09:20→21:32)
--- NOTE | 2020-01-05 17:06 | NUR ---
This SW notified patient's daughter Kimberlee and son Adalberto via email that the next IDT meeting for the patient has been scheduled for 01/11/2020 at 11am. SW asked Kimberlee and Adalberto to let this SW know if they would like to participate in the meeting through speaker phone.
[2020-01-05] MEDS: diphenhydrAMINE 25 MG/10 ML UDC GT PRN (17:41)
[2020-01-05 19:53] VITALS: BP 138/65
[2020-01-05] MEDS: [UNRECOGNIZED DRUG - OTHER] GT SCH (20:38)
[2020-01-05] MEDS: PROTEIN SUPPLEMENT (PROSTAT) 30 ML LIQUID GT SCH (20:38)
[2020-01-05] MEDS: MINERAL OIL/PETROLAT OPHT OINT 3.5 GM TUBE EACHEYE SCH (20:38)
[2020-01-06] MEDS: POLYVINYL ALCOHOL OPHT DROPS 15 ML BOTTLE EACHEYE SCH ×6 (01:00→21:00)
[2020-01-06] MEDS: ALBUTEROL SULFATE 2.5 MG/3 ML NEBU NEB SCH ×4 (02:00→19:27)
[2020-01-06] MEDS: IPRATROPIUM BROMIDE 0.5 MG/2.5 ML NEBU NEB SCH ×4 (02:00→19:27)
[2020-01-06] MEDS: LEVOTHYROXINE SODIUM 50 MCG TABLET GT SCH (05:22)
[2020-01-06] MEDS: CARBIDOPA/LEVODOPA 25-100MG TABLET GT SCH ×3 (05:22→22:07)
[2020-01-06] MEDS: [UNRECOGNIZED DRUG - OTHER] GT SCH (05:22)
[2020-01-06] MEDS: FAMOTIDINE 20 MG TABLET GT SCH (05:32)
[2020-01-06 07:27] VITALS: BP 110/61
[2020-01-06] MEDS: HYDROGEN PEROXIDE 3% 118 ML BOTTLE TP SCH ×2 (07:34→21:22)
[2020-01-06] MEDS: ENOXAPARIN SODIUM 40 MG/0.4 ML DISP.SYRIN SQ SCH (08:54)
[2020-01-06] MEDS: [UNRECOGNIZED DRUG - OTHER] GT SCH (08:54)
[2020-01-06] MEDS: CALCIUM CARB/VITAMIN D 600-400 MG TABLET GT SCH ×2 (08:54→21:00)
[2020-01-06] MEDS: COD LIVER OIL/ZINC OXIDE OINT 113 GM TUBE TP SCH ×2 (08:54→21:00)
[2020-01-06] MEDS: OSMOLITE 1.2 CAL 1,000 ML LIQUID GT PRN (10:17)
[2020-01-06 20:32] VITALS: BP 138/67
[2020-01-06] MEDS: MINERAL OIL/PETROLAT OPHT OINT 3.5 GM TUBE EACHEYE SCH (21:00)
[2020-01-06] MEDS: PROTEIN SUPPLEMENT (PROSTAT) 30 ML LIQUID GT SCH (21:00)
[2020-01-06] MEDS: [UNRECOGNIZED DRUG - OTHER] GT SCH (21:00)
[2020-01-06] MEDS: diphenhydrAMINE 25 MG/10 ML UDC GT PRN (21:30)
[2020-01-07] MEDS: IPRATROPIUM BROMIDE 0.5 MG/2.5 ML NEBU NEB SCH ×4 (00:30→19:04)
[2020-01-07] MEDS: ALBUTEROL SULFATE 2.5 MG/3 ML NEBU NEB SCH ×4 (00:30→19:04)
[2020-01-07] MEDS: POLYVINYL ALCOHOL OPHT DROPS 15 ML BOTTLE EACHEYE SCH ×6 (01:00→22:05)
[2020-01-07] MEDS: OSMOLITE 1.2 CAL 1,000 ML LIQUID GT PRN (05:00)
[2020-01-07] MEDS: LEVOTHYROXINE SODIUM 50 MCG TABLET GT SCH (05:22)
[2020-01-07] MEDS: [UNRECOGNIZED DRUG - OTHER] GT SCH (05:22)
[2020-01-07] MEDS: CARBIDOPA/LEVODOPA 25-100MG TABLET GT SCH ×3 (05:22→22:10)
[2020-01-07] MEDS: FAMOTIDINE 20 MG TABLET GT SCH (05:31)
[2020-01-07 07:32] VITALS: BP 119/51
[2020-01-07] MEDS: ENOXAPARIN SODIUM 40 MG/0.4 ML DISP.SYRIN SQ SCH (08:07)
[2020-01-07] MEDS: CALCIUM CARB/VITAMIN D 600-400 MG TABLET GT SCH ×2 (08:07→22:07)
[2020-01-07] MEDS: [UNRECOGNIZED DRUG - OTHER] GT SCH (08:07)
[2020-01-07] MEDS: COD LIVER OIL/ZINC OXIDE OINT 113 GM TUBE TP SCH ×2 (08:07→22:10)
[2020-01-07] MEDS: HYDROGEN PEROXIDE 3% 118 ML BOTTLE TP SCH ×2 (08:36→19:04)
[2020-01-07] MEDS: MINERAL OIL/PETROLAT OPHT OINT 3.5 GM TUBE EACHEYE SCH (22:05)
[2020-01-07] MEDS: PROTEIN SUPPLEMENT (PROSTAT) 30 ML LIQUID GT SCH (22:08)
[2020-01-07] MEDS: [UNRECOGNIZED DRUG - OTHER] GT SCH (22:09)
[2020-01-07 22:23] VITALS: BP 121/58
[2020-01-08] MEDS: IPRATROPIUM BROMIDE 0.5 MG/2.5 ML NEBU NEB SCH ×4 (00:36→19:20)
[2020-01-08] MEDS: ALBUTEROL SULFATE 2.5 MG/3 ML NEBU NEB SCH ×4 (00:36→19:20)
[2020-01-08] MEDS: POLYVINYL ALCOHOL OPHT DROPS 15 ML BOTTLE EACHEYE SCH ×6 (02:34→20:10)
[2020-01-08] MEDS: OSMOLITE 1.2 CAL 1,000 ML LIQUID GT PRN (02:39)
[2020-01-08] MEDS: [UNRECOGNIZED DRUG - OTHER] GT SCH (06:26)
[2020-01-08] MEDS: CARBIDOPA/LEVODOPA 25-100MG TABLET GT SCH ×3 (06:31→21:45)
[2020-01-08] MEDS: LEVOTHYROXINE SODIUM 50 MCG TABLET GT SCH (06:31)
[2020-01-08] MEDS: FAMOTIDINE 20 MG TABLET GT SCH (06:31)
[2020-01-08 07:28] VITALS: BP 120/64
[2020-01-08] MEDS: [UNRECOGNIZED DRUG - OTHER] GT SCH (08:01)
[2020-01-08] MEDS: CALCIUM CARB/VITAMIN D 600-400 MG TABLET GT SCH ×2 (08:01→20:10)
[2020-01-08] MEDS: COD LIVER OIL/ZINC OXIDE OINT 113 GM TUBE TP SCH ×2 (08:02→20:10)
[2020-01-08] MEDS: ENOXAPARIN SODIUM 40 MG/0.4 ML DISP.SYRIN SQ SCH (08:02)
[2020-01-08] MEDS: HYDROGEN PEROXIDE 3% 118 ML BOTTLE TP SCH ×2 (09:00→21:24)
[2020-01-08] MEDS: MINERAL OIL/PETROLAT OPHT OINT 3.5 GM TUBE EACHEYE SCH (20:10)
[2020-01-08] MEDS: [UNRECOGNIZED DRUG - OTHER] GT SCH (20:10)
[2020-01-08] MEDS: PROTEIN SUPPLEMENT (PROSTAT) 30 ML LIQUID GT SCH (20:10)
[2020-01-08 22:33] VITALS: BP 119/59
[2020-01-09] MEDS: IPRATROPIUM BROMIDE 0.5 MG/2.5 ML NEBU NEB SCH ×4 (00:58→19:10)
[2020-01-09] MEDS: ALBUTEROL SULFATE 2.5 MG/3 ML NEBU NEB SCH ×4 (00:58→19:10)
[2020-01-09] MEDS: POLYVINYL ALCOHOL OPHT DROPS 15 ML BOTTLE EACHEYE SCH ×6 (01:00→21:01)
[2020-01-09] MEDS: [UNRECOGNIZED DRUG - OTHER] GT SCH (05:16)
[2020-01-09] MEDS: CARBIDOPA/LEVODOPA 25-100MG TABLET GT SCH ×3 (05:16→21:04)
[2020-01-09] MEDS: LEVOTHYROXINE SODIUM 50 MCG TABLET GT SCH (05:16)
[2020-01-09 07:54] VITALS: BP 122/61
[2020-01-09] MEDS: CALCIUM CARB/VITAMIN D 600-400 MG TABLET GT SCH ×2 (08:48→21:01)
[2020-01-09] MEDS: [UNRECOGNIZED DRUG - OTHER] GT SCH (08:48)
[2020-01-09] MEDS: ENOXAPARIN SODIUM 40 MG/0.4 ML DISP.SYRIN SQ SCH (08:49)
[2020-01-09] MEDS: COD LIVER OIL/ZINC OXIDE OINT 113 GM TUBE TP SCH ×2 (08:49→21:04)
[2020-01-09] MEDS: HYDROGEN PEROXIDE 3% 118 ML BOTTLE TP SCH ×2 (09:21→21:04)
--- NOTE | 2020-01-09 18:38 | NUR ---
Covid 19 test done today.per [facility] requirement.Responsible libertarian notified.
[2020-01-09] MEDS: MINERAL OIL/PETROLAT OPHT OINT 3.5 GM TUBE EACHEYE SCH (21:01)
[2020-01-09] MEDS: PROTEIN SUPPLEMENT (PROSTAT) 30 ML LIQUID GT SCH (21:04)
[2020-01-09] MEDS: [UNRECOGNIZED DRUG - OTHER] GT SCH (21:04)
[2020-01-09 22:29] VITALS: BP 124/58
[2020-01-09] MEDS: OSMOLITE 1.2 CAL 1,000 ML LIQUID GT PRN (23:31)
[2020-01-10] MEDS: IPRATROPIUM BROMIDE 0.5 MG/2.5 ML NEBU NEB SCH ×4 (00:40→19:10)
[2020-01-10] MEDS: ALBUTEROL SULFATE 2.5 MG/3 ML NEBU NEB SCH ×4 (00:40→19:10)
[2020-01-10] MEDS: POLYVINYL ALCOHOL OPHT DROPS 15 ML BOTTLE EACHEYE SCH ×6 (01:00→20:43)
[2020-01-10] MEDS: LEVOTHYROXINE SODIUM 50 MCG TABLET GT SCH (05:45)
[2020-01-10] MEDS: CARBIDOPA/LEVODOPA 25-100MG TABLET GT SCH ×3 (05:45→22:20)
[2020-01-10] MEDS: FAMOTIDINE 20 MG TABLET GT SCH (05:45)
[2020-01-10] MEDS: [UNRECOGNIZED DRUG - OTHER] GT SCH (05:45)
[2020-01-10 07:33] VITALS: BP 149/67
[2020-01-10] MEDS: CALCIUM CARB/VITAMIN D 600-400 MG TABLET GT SCH ×2 (08:02→20:43)
[2020-01-10] MEDS: [UNRECOGNIZED DRUG - OTHER] GT SCH (08:02)
[2020-01-10] MEDS: ENOXAPARIN SODIUM 40 MG/0.4 ML DISP.SYRIN SQ SCH (08:03)
[2020-01-10] MEDS: COD LIVER OIL/ZINC OXIDE OINT 113 GM TUBE TP SCH ×2 (08:03→20:43)
[2020-01-10] MEDS: HYDROGEN PEROXIDE 3% 118 ML BOTTLE TP SCH ×2 (08:27→21:20)
--- NOTE | 2020-01-10 12:00 | NUR ---
SEEN Jeramy Bailey AND WITH NNO.
[2020-01-10 20:11] VITALS: BP 124/65
[2020-01-10] MEDS: PROTEIN SUPPLEMENT (PROSTAT) 30 ML LIQUID GT SCH (20:43)
[2020-01-10] MEDS: [UNRECOGNIZED DRUG - OTHER] GT SCH (20:43)
[2020-01-10] MEDS: MINERAL OIL/PETROLAT OPHT OINT 3.5 GM TUBE EACHEYE SCH (20:43)
[2020-01-10] MEDS: OSMOLITE 1.2 CAL 1,000 ML LIQUID GT PRN (22:22)
[2020-01-11] MEDS: ALBUTEROL SULFATE 2.5 MG/3 ML NEBU NEB SCH ×4 (00:55→19:14)
[2020-01-11] MEDS: IPRATROPIUM BROMIDE 0.5 MG/2.5 ML NEBU NEB SCH ×4 (00:55→19:14)
[2020-01-11] MEDS: POLYVINYL ALCOHOL OPHT DROPS 15 ML BOTTLE EACHEYE SCH ×6 (01:07→21:00)
[2020-01-11] MEDS: [UNRECOGNIZED DRUG - OTHER] GT SCH (05:36)
[2020-01-11] MEDS: CARBIDOPA/LEVODOPA 25-100MG TABLET GT SCH ×3 (05:36→22:34)
[2020-01-11] MEDS: FAMOTIDINE 20 MG TABLET GT SCH (05:37)
[2020-01-11] MEDS: LEVOTHYROXINE SODIUM 50 MCG TABLET GT SCH (05:37)
[2020-01-11 07:21] VITALS: BP 140/55
[2020-01-11] MEDS: HYDROGEN PEROXIDE 3% 118 ML BOTTLE TP SCH ×2 (08:37→21:12)
[2020-01-11] MEDS: [UNRECOGNIZED DRUG - OTHER] GT SCH (08:42)
[2020-01-11] MEDS: CALCIUM CARB/VITAMIN D 600-400 MG TABLET GT SCH ×2 (08:42→21:00)
[2020-01-11] MEDS: ENOXAPARIN SODIUM 40 MG/0.4 ML DISP.SYRIN SQ SCH (08:43)
[2020-01-11] MEDS: COD LIVER OIL/ZINC OXIDE OINT 113 GM TUBE TP SCH ×2 (08:43→21:00)
--- NOTE | 2020-01-11 16:33 | NUR ---
INTERDISCIPLINARY PLAN OF CARE CONFERENCE was held today. Patient's daughter and son were not available to participate in the meeting. Dr. Yu and the Interdisciplinary Team reviewed the current plan of care in detail. RN reported on patient's medical condition. See RN IDT conference notes. No major changes in medical condition were reported by nursing or by other disciplines. See all disciplines IDT notes and physician's progress notes for additional details.
[2020-01-11 20:05] VITALS: BP 126/84
[2020-01-11] MEDS: PROTEIN SUPPLEMENT (PROSTAT) 30 ML LIQUID GT SCH (21:00)
[2020-01-11] MEDS: [UNRECOGNIZED DRUG - OTHER] GT SCH (21:00)
[2020-01-11] MEDS: MINERAL OIL/PETROLAT OPHT OINT 3.5 GM TUBE EACHEYE SCH (21:00)
[2020-01-12] MEDS: OSMOLITE 1.2 CAL 1,000 ML LIQUID GT PRN (00:30)
[2020-01-12] MEDS: IPRATROPIUM BROMIDE 0.5 MG/2.5 ML NEBU NEB SCH ×4 (00:39→18:57)
[2020-01-12] MEDS: ALBUTEROL SULFATE 2.5 MG/3 ML NEBU NEB SCH ×4 (00:39→18:57)
[2020-01-12] MEDS: POLYVINYL ALCOHOL OPHT DROPS 15 ML BOTTLE EACHEYE SCH ×6 (01:00→21:13)
[2020-01-12] MEDS: LEVOTHYROXINE SODIUM 50 MCG TABLET GT SCH (05:05)
[2020-01-12] MEDS: CARBIDOPA/LEVODOPA 25-100MG TABLET GT SCH ×3 (05:05→21:16)
[2020-01-12] MEDS: [UNRECOGNIZED DRUG - OTHER] GT SCH (05:05)
[2020-01-12] MEDS: ALENDRONATE GT SCH (05:05)
[2020-01-12] MEDS: FAMOTIDINE 20 MG TABLET GT SCH (06:20)
[2020-01-12] MEDS: HYDROGEN PEROXIDE 3% 118 ML BOTTLE TP SCH ×2 (07:25→18:57)
[2020-01-12] MEDS: CALCIUM CARB/VITAMIN D 600-400 MG TABLET GT SCH ×2 (08:21→21:13)
[2020-01-12] MEDS: ENOXAPARIN SODIUM 40 MG/0.4 ML DISP.SYRIN SQ SCH (08:22)
[2020-01-12] MEDS: [UNRECOGNIZED DRUG - OTHER] GT SCH (08:22)
[2020-01-12] MEDS: COD LIVER OIL/ZINC OXIDE OINT 113 GM TUBE TP SCH ×2 (08:22→21:13)
[2020-01-12 11:00] VITALS: BP 110/60
--- NOTE | 2020-01-12 18:00 | NUR ---
Covid 19 results negative.Kimberlee pt's daughter aware.
[2020-01-12 19:51] VITALS: BP 132/59
[2020-01-12] MEDS: MINERAL OIL/PETROLAT OPHT OINT 3.5 GM TUBE EACHEYE SCH (21:13)
[2020-01-12] MEDS: [UNRECOGNIZED DRUG - OTHER] GT SCH (21:13)
[2020-01-12] MEDS: PROTEIN SUPPLEMENT (PROSTAT) 30 ML LIQUID GT SCH (21:13)
[2020-01-13] MEDS: IPRATROPIUM BROMIDE 0.5 MG/2.5 ML NEBU NEB SCH ×4 (00:31→19:01)
[2020-01-13] MEDS: ALBUTEROL SULFATE 2.5 MG/3 ML NEBU NEB SCH ×4 (00:32→19:01)
[2020-01-13] MEDS: POLYVINYL ALCOHOL OPHT DROPS 15 ML BOTTLE EACHEYE SCH ×6 (01:14→21:54)
[2020-01-13] MEDS: LEVOTHYROXINE SODIUM 50 MCG TABLET GT SCH (05:04)
[2020-01-13] MEDS: [UNRECOGNIZED DRUG - OTHER] GT SCH (05:04)
[2020-01-13] MEDS: CARBIDOPA/LEVODOPA 25-100MG TABLET GT SCH ×3 (05:04→21:55)
[2020-01-13] MEDS: FAMOTIDINE 20 MG TABLET GT SCH (06:23)
[2020-01-13] MEDS: HYDROGEN PEROXIDE 3% 118 ML BOTTLE TP SCH ×2 (07:11→19:01)
[2020-01-13 07:53] VITALS: BP 117/62
[2020-01-13] MEDS: CALCIUM CARB/VITAMIN D 600-400 MG TABLET GT SCH ×2 (08:48→21:54)
[2020-01-13] MEDS: ENOXAPARIN SODIUM 40 MG/0.4 ML DISP.SYRIN SQ SCH (08:48)
[2020-01-13] MEDS: COD LIVER OIL/ZINC OXIDE OINT 113 GM TUBE TP SCH ×2 (08:48→21:55)
[2020-01-13] MEDS: [UNRECOGNIZED DRUG - OTHER] GT SCH (08:48)
[2020-01-13] MEDS: OSMOLITE 1.2 CAL 1,000 ML LIQUID GT PRN (11:54)
[2020-01-13 19:49] VITALS: BP 122/51
[2020-01-13] MEDS: [UNRECOGNIZED DRUG - OTHER] GT SCH (21:54)
[2020-01-13] MEDS: PROTEIN SUPPLEMENT (PROSTAT) 30 ML LIQUID GT SCH (21:54)
[2020-01-13] MEDS: MINERAL OIL/PETROLAT OPHT OINT 3.5 GM TUBE EACHEYE SCH (21:54)
[2020-01-14] MEDS: IPRATROPIUM BROMIDE 0.5 MG/2.5 ML NEBU NEB SCH ×4 (00:30→19:12)
[2020-01-14] MEDS: ALBUTEROL SULFATE 2.5 MG/3 ML NEBU NEB SCH ×4 (00:30→19:12)
[2020-01-14] MEDS: POLYVINYL ALCOHOL OPHT DROPS 15 ML BOTTLE EACHEYE SCH ×6 (01:00→21:00)
[2020-01-14] MEDS: CARBIDOPA/LEVODOPA 25-100MG TABLET GT SCH ×3 (05:40→22:10)
[2020-01-14] MEDS: [UNRECOGNIZED DRUG - OTHER] GT SCH (05:40)
[2020-01-14] MEDS: FAMOTIDINE 20 MG TABLET GT SCH (05:41)
[2020-01-14] MEDS: LEVOTHYROXINE SODIUM 50 MCG TABLET GT SCH (05:41)
[2020-01-14] MEDS: OSMOLITE 1.2 CAL 1,000 ML LIQUID GT PRN (05:41)
[2020-01-14 07:34] VITALS: BP 113/74
[2020-01-14] MEDS: HYDROGEN PEROXIDE 3% 118 ML BOTTLE TP SCH ×2 (09:08→21:13)
[2020-01-14] MEDS: CALCIUM CARB/VITAMIN D 600-400 MG TABLET GT SCH ×2 (09:34→21:00)
[2020-01-14] MEDS: [UNRECOGNIZED DRUG - OTHER] GT SCH (09:34)
[2020-01-14] MEDS: ENOXAPARIN SODIUM 40 MG/0.4 ML DISP.SYRIN SQ SCH (09:35)
[2020-01-14] MEDS: COD LIVER OIL/ZINC OXIDE OINT 113 GM TUBE TP SCH ×2 (09:35→21:00)
--- NOTE | 2020-01-14 15:38 | NUR ---
SEEN BY DR. ZARATE AND WITH NNO.
[2020-01-14 20:31] VITALS: BP 123/51
[2020-01-14] MEDS: [UNRECOGNIZED DRUG - OTHER] GT SCH (21:00)
[2020-01-14] MEDS: MINERAL OIL/PETROLAT OPHT OINT 3.5 GM TUBE EACHEYE SCH (21:00)
[2020-01-14] MEDS: PROTEIN SUPPLEMENT (PROSTAT) 30 ML LIQUID GT SCH (21:00)
[2020-01-15] MEDS: ALBUTEROL SULFATE 2.5 MG/3 ML NEBU NEB SCH ×4 (00:30→19:10)
[2020-01-15] MEDS: IPRATROPIUM BROMIDE 0.5 MG/2.5 ML NEBU NEB SCH ×4 (00:30→19:10)
[2020-01-15] MEDS: POLYVINYL ALCOHOL OPHT DROPS 15 ML BOTTLE EACHEYE SCH ×6 (00:42→21:14)
[2020-01-15] MEDS: OSMOLITE 1.2 CAL 1,000 ML LIQUID GT PRN ×2 (00:43→17:40)
[2020-01-15] MEDS: [UNRECOGNIZED DRUG - OTHER] GT SCH (05:38)
[2020-01-15] MEDS: FAMOTIDINE 20 MG TABLET GT SCH (05:38)
[2020-01-15] MEDS: CARBIDOPA/LEVODOPA 25-100MG TABLET GT SCH ×3 (05:38→21:14)
[2020-01-15] MEDS: LEVOTHYROXINE SODIUM 50 MCG TABLET GT SCH (05:38)
[2020-01-15 07:36] VITALS: BP 121/64
[2020-01-15] MEDS: HYDROGEN PEROXIDE 3% 118 ML BOTTLE TP SCH ×2 (08:57→21:20)
[2020-01-15] MEDS: CALCIUM CARB/VITAMIN D 600-400 MG TABLET GT SCH ×2 (09:06→21:14)
[2020-01-15] MEDS: [UNRECOGNIZED DRUG - OTHER] GT SCH (09:06)
[2020-01-15] MEDS: COD LIVER OIL/ZINC OXIDE OINT 113 GM TUBE TP SCH ×2 (09:07→21:14)
[2020-01-15] MEDS: ENOXAPARIN SODIUM 40 MG/0.4 ML DISP.SYRIN SQ SCH (09:07)
[2020-01-15 20:32] VITALS: BP 124/52
[2020-01-15] MEDS: PROTEIN SUPPLEMENT (PROSTAT) 30 ML LIQUID GT SCH (21:14)
[2020-01-15] MEDS: [UNRECOGNIZED DRUG - OTHER] GT SCH (21:14)
[2020-01-15] MEDS: MINERAL OIL/PETROLAT OPHT OINT 3.5 GM TUBE EACHEYE SCH (21:14)
[2020-01-16] MEDS: ALBUTEROL SULFATE 2.5 MG/3 ML NEBU NEB SCH ×4 (00:54→19:15)
[2020-01-16] MEDS: IPRATROPIUM BROMIDE 0.5 MG/2.5 ML NEBU NEB SCH ×4 (00:54→19:15)
[2020-01-16] MEDS: POLYVINYL ALCOHOL OPHT DROPS 15 ML BOTTLE EACHEYE SCH ×6 (01:05→21:20)
[2020-01-16] MEDS: CARBIDOPA/LEVODOPA 25-100MG TABLET GT SCH ×3 (05:10→21:21)
[2020-01-16] MEDS: LEVOTHYROXINE SODIUM 50 MCG TABLET GT SCH (05:10)
[2020-01-16] MEDS: [UNRECOGNIZED DRUG - OTHER] GT SCH (05:10)
[2020-01-16] MEDS: FAMOTIDINE 20 MG TABLET GT SCH (05:36)
[2020-01-16] MEDS: HYDROGEN PEROXIDE 3% 118 ML BOTTLE TP SCH ×2 (07:15→20:50)
[2020-01-16 07:49] VITALS: BP 142/71
[2020-01-16] MEDS: CALCIUM CARB/VITAMIN D 600-400 MG TABLET GT SCH ×2 (08:47→21:32)
[2020-01-16] MEDS: [UNRECOGNIZED DRUG - OTHER] GT SCH (08:47)
[2020-01-16] MEDS: COD LIVER OIL/ZINC OXIDE OINT 113 GM TUBE TP SCH ×2 (08:49→21:21)
[2020-01-16] MEDS: ENOXAPARIN SODIUM 40 MG/0.4 ML DISP.SYRIN SQ SCH (08:49)
[2020-01-16 20:37] VITALS: BP 121/60
[2020-01-16] MEDS: [UNRECOGNIZED DRUG - OTHER] GT SCH (21:20)
[2020-01-16] MEDS: MINERAL OIL/PETROLAT OPHT OINT 3.5 GM TUBE EACHEYE SCH (21:20)
[2020-01-16] MEDS: PROTEIN SUPPLEMENT (PROSTAT) 30 ML LIQUID GT SCH (21:21)
[2020-01-16] MEDS: diphenhydrAMINE 25 MG/10 ML UDC GT PRN (21:32)
[2020-01-17] MEDS: IPRATROPIUM BROMIDE 0.5 MG/2.5 ML NEBU NEB SCH ×4 (00:55→19:15)
[2020-01-17] MEDS: ALBUTEROL SULFATE 2.5 MG/3 ML NEBU NEB SCH ×4 (00:55→19:15)
[2020-01-17] MEDS: POLYVINYL ALCOHOL OPHT DROPS 15 ML BOTTLE EACHEYE SCH ×6 (01:00→21:32)
[2020-01-17] MEDS: FAMOTIDINE 20 MG TABLET GT SCH (06:27)
[2020-01-17] MEDS: [UNRECOGNIZED DRUG - OTHER] GT SCH (06:27)
[2020-01-17] MEDS: LEVOTHYROXINE SODIUM 50 MCG TABLET GT SCH (06:27)
[2020-01-17] MEDS: CARBIDOPA/LEVODOPA 25-100MG TABLET GT SCH ×3 (06:27→21:33)
--- NOTE | 2020-01-17 07:03 | NUR ---
Will test patient for COVID-19 today.
[2020-01-17 07:28] VITALS: BP 136/43
[2020-01-17] MEDS: CALCIUM CARB/VITAMIN D 600-400 MG TABLET GT SCH ×2 (08:23→21:32)
[2020-01-17] MEDS: ENOXAPARIN SODIUM 40 MG/0.4 ML DISP.SYRIN SQ SCH (08:24)
[2020-01-17] MEDS: COD LIVER OIL/ZINC OXIDE OINT 113 GM TUBE TP SCH ×2 (08:24→21:33)
[2020-01-17] MEDS: [UNRECOGNIZED DRUG - OTHER] GT SCH (08:24)
[2020-01-17] MEDS: HYDROGEN PEROXIDE 3% 118 ML BOTTLE TP SCH ×2 (09:21→19:15)
--- NOTE | 2020-01-17 10:23 | NUR ---
PT'S DTR. GHADA AWARE AND IN AGREEMENT OF COVID 19 TEST TODAY.
[2020-01-17] MEDS: OSMOLITE 1.2 CAL 1,000 ML LIQUID GT PRN (11:50)
--- NOTE | 2020-01-17 12:00 | NUR ---
SEEN BY DANNIE Bailey AND WITH NNO.
[2020-01-17 20:17] VITALS: BP 129/57
[2020-01-17] MEDS: MINERAL OIL/PETROLAT OPHT OINT 3.5 GM TUBE EACHEYE SCH (21:32)
[2020-01-17] MEDS: PROTEIN SUPPLEMENT (PROSTAT) 30 ML LIQUID GT SCH (21:32)
[2020-01-17] MEDS: [UNRECOGNIZED DRUG - OTHER] GT SCH (21:32)
[2020-01-18] MEDS: IPRATROPIUM BROMIDE 0.5 MG/2.5 ML NEBU NEB SCH ×4 (01:04→19:10)
[2020-01-18] MEDS: ALBUTEROL SULFATE 2.5 MG/3 ML NEBU NEB SCH ×4 (01:04→19:10)
[2020-01-18] MEDS: POLYVINYL ALCOHOL OPHT DROPS 15 ML BOTTLE EACHEYE SCH ×6 (01:05→21:11)
[2020-01-18] MEDS: LEVOTHYROXINE SODIUM 50 MCG TABLET GT SCH (05:08)
[2020-01-18] MEDS: CARBIDOPA/LEVODOPA 25-100MG TABLET GT SCH ×3 (05:08→21:13)
[2020-01-18] MEDS: [UNRECOGNIZED DRUG - OTHER] GT SCH (05:08)
[2020-01-18] MEDS: FAMOTIDINE 20 MG TABLET GT SCH (06:25)
[2020-01-18] MEDS: HYDROGEN PEROXIDE 3% 118 ML BOTTLE TP SCH ×2 (07:23→21:11)
[2020-01-18] MEDS: OSMOLITE 1.2 CAL 1,000 ML LIQUID GT PRN (07:27)
[2020-01-18 07:36] VITALS: BP 147/60
[2020-01-18] MEDS: ENOXAPARIN SODIUM 40 MG/0.4 ML DISP.SYRIN SQ SCH (08:39)
[2020-01-18] MEDS: CALCIUM CARB/VITAMIN D 600-400 MG TABLET GT SCH ×2 (08:40→21:13)
[2020-01-18] MEDS: [UNRECOGNIZED DRUG - OTHER] GT SCH (08:40)
[2020-01-18] MEDS: COD LIVER OIL/ZINC OXIDE OINT 113 GM TUBE TP SCH ×2 (08:40→21:13)
[2020-01-18] MEDS: diphenhydrAMINE 25 MG/10 ML UDC GT PRN (16:30)
[2020-01-18 20:10] VITALS: BP 127/60
[2020-01-18] MEDS: MINERAL OIL/PETROLAT OPHT OINT 3.5 GM TUBE EACHEYE SCH (21:11)
[2020-01-18] MEDS: PROTEIN SUPPLEMENT (PROSTAT) 30 ML LIQUID GT SCH (21:13)
[2020-01-18] MEDS: [UNRECOGNIZED DRUG - OTHER] GT SCH (21:13)
--- NOTE | 2020-01-18 22:35 | NUR ---
Cipriano from Lab called and stated that patient's Covid-19 test resulted negative.
[2020-01-19] MEDS: IPRATROPIUM BROMIDE 0.5 MG/2.5 ML NEBU NEB SCH ×4 (00:32→19:11)
[2020-01-19] MEDS: ALBUTEROL SULFATE 2.5 MG/3 ML NEBU NEB SCH ×4 (00:32→19:11)
[2020-01-19] MEDS: POLYVINYL ALCOHOL OPHT DROPS 15 ML BOTTLE EACHEYE SCH ×6 (01:00→21:59)
[2020-01-19] MEDS: OSMOLITE 1.2 CAL 1,000 ML LIQUID GT PRN ×2 (01:58→22:04)
[2020-01-19] MEDS: ALENDRONATE GT SCH (06:02)
[2020-01-19] MEDS: FAMOTIDINE 20 MG TABLET GT SCH (06:02)
[2020-01-19] MEDS: LEVOTHYROXINE SODIUM 50 MCG TABLET GT SCH (06:02)
[2020-01-19] MEDS: CARBIDOPA/LEVODOPA 25-100MG TABLET GT SCH ×3 (06:02→22:00)
[2020-01-19] MEDS: [UNRECOGNIZED DRUG - OTHER] GT SCH (06:02)
[2020-01-19 07:23] VITALS: BP 135/48
[2020-01-19] MEDS: ENOXAPARIN SODIUM 40 MG/0.4 ML DISP.SYRIN SQ SCH (09:03)
[2020-01-19] MEDS: [UNRECOGNIZED DRUG - OTHER] GT SCH (09:04)
[2020-01-19] MEDS: CALCIUM CARB/VITAMIN D 600-400 MG TABLET GT SCH ×2 (09:04→21:00)
[2020-01-19] MEDS: COD LIVER OIL/ZINC OXIDE OINT 113 GM TUBE TP SCH ×2 (09:04→21:00)
[2020-01-19] MEDS: HYDROGEN PEROXIDE 3% 118 ML BOTTLE TP SCH ×2 (09:08→20:47)
--- NOTE | 2020-01-19 11:00 | NUR ---
Covid 19 results negative.Kimberlee garay's daughter notified.
[2020-01-19] MEDS: diphenhydrAMINE 25 MG/10 ML UDC GT PRN (15:56)
[2020-01-19] MEDS: [UNRECOGNIZED DRUG - OTHER] GT SCH (21:00)
[2020-01-19] MEDS: PROTEIN SUPPLEMENT (PROSTAT) 30 ML LIQUID GT SCH (21:00)
[2020-01-19] MEDS: MINERAL OIL/PETROLAT OPHT OINT 3.5 GM TUBE EACHEYE SCH (22:00)
[2020-01-19 22:29] VITALS: BP 130/56
[2020-01-20] MEDS: ALBUTEROL SULFATE 2.5 MG/3 ML NEBU NEB SCH ×4 (00:57→19:04)
[2020-01-20] MEDS: IPRATROPIUM BROMIDE 0.5 MG/2.5 ML NEBU NEB SCH ×4 (00:57→19:04)
[2020-01-20] MEDS: POLYVINYL ALCOHOL OPHT DROPS 15 ML BOTTLE EACHEYE SCH ×6 (01:00→21:19)
[2020-01-20] MEDS: [UNRECOGNIZED DRUG - OTHER] GT SCH (05:59)
[2020-01-20] MEDS: CARBIDOPA/LEVODOPA 25-100MG TABLET GT SCH ×3 (05:59→21:21)
[2020-01-20] MEDS: FAMOTIDINE 20 MG TABLET GT SCH (05:59)
[2020-01-20] MEDS: LEVOTHYROXINE SODIUM 50 MCG TABLET GT SCH (05:59)
[2020-01-20] MEDS: HYDROGEN PEROXIDE 3% 118 ML BOTTLE TP SCH ×2 (07:21→19:04)
[2020-01-20 07:28] VITALS: BP 129/57
[2020-01-20] MEDS: CALCIUM CARB/VITAMIN D 600-400 MG TABLET GT SCH ×2 (09:10→21:19)
[2020-01-20] MEDS: COD LIVER OIL/ZINC OXIDE OINT 113 GM TUBE TP SCH ×2 (09:10→21:21)
[2020-01-20] MEDS: ENOXAPARIN SODIUM 40 MG/0.4 ML DISP.SYRIN SQ SCH (09:10)
[2020-01-20] MEDS: [UNRECOGNIZED DRUG - OTHER] GT SCH (09:10)
[2020-01-20 20:06] VITALS: BP 128/65
[2020-01-20] MEDS: MINERAL OIL/PETROLAT OPHT OINT 3.5 GM TUBE EACHEYE SCH (21:19)
[2020-01-20] MEDS: PROTEIN SUPPLEMENT (PROSTAT) 30 ML LIQUID GT SCH (21:20)
[2020-01-20] MEDS: [UNRECOGNIZED DRUG - OTHER] GT SCH (21:20)
[2020-01-21] MEDS: IPRATROPIUM BROMIDE 0.5 MG/2.5 ML NEBU NEB SCH ×4 (00:30→19:19)
[2020-01-21] MEDS: ALBUTEROL SULFATE 2.5 MG/3 ML NEBU NEB SCH ×4 (00:30→19:19)
[2020-01-21] MEDS: POLYVINYL ALCOHOL OPHT DROPS 15 ML BOTTLE EACHEYE SCH ×6 (01:00→20:38)
[2020-01-21] MEDS: [UNRECOGNIZED DRUG - OTHER] GT SCH (06:21)
[2020-01-21] MEDS: CARBIDOPA/LEVODOPA 25-100MG TABLET GT SCH ×3 (06:21→21:38)
[2020-01-21] MEDS: FAMOTIDINE 20 MG TABLET GT SCH (06:21)
[2020-01-21] MEDS: LEVOTHYROXINE SODIUM 50 MCG TABLET GT SCH (06:21)
[2020-01-21 07:35] VITALS: BP 137/67
[2020-01-21] MEDS: HYDROGEN PEROXIDE 3% 118 ML BOTTLE TP SCH ×2 (08:56→21:12)
[2020-01-21] MEDS: [UNRECOGNIZED DRUG - OTHER] GT SCH (09:36)
[2020-01-21] MEDS: CALCIUM CARB/VITAMIN D 600-400 MG TABLET GT SCH ×2 (09:36→20:38)
[2020-01-21] MEDS: COD LIVER OIL/ZINC OXIDE OINT 113 GM TUBE TP SCH ×2 (09:37→20:39)
[2020-01-21] MEDS: ENOXAPARIN SODIUM 40 MG/0.4 ML DISP.SYRIN SQ SCH (09:37)
[2020-01-21 19:40] VITALS: BP 127/59
[2020-01-21] MEDS: [UNRECOGNIZED DRUG - OTHER] GT SCH (20:38)
[2020-01-21] MEDS: PROTEIN SUPPLEMENT (PROSTAT) 30 ML LIQUID GT SCH (20:38)
[2020-01-21] MEDS: MINERAL OIL/PETROLAT OPHT OINT 3.5 GM TUBE EACHEYE SCH (21:38)
[2020-01-22] MEDS: IPRATROPIUM BROMIDE 0.5 MG/2.5 ML NEBU NEB SCH ×4 (00:37→18:56)
[2020-01-22] MEDS: ALBUTEROL SULFATE 2.5 MG/3 ML NEBU NEB SCH ×4 (00:37→18:56)
[2020-01-22] MEDS: POLYVINYL ALCOHOL OPHT DROPS 15 ML BOTTLE EACHEYE SCH ×6 (01:09→20:43)
[2020-01-22] MEDS: CARBIDOPA/LEVODOPA 25-100MG TABLET GT SCH ×3 (05:37→21:39)
[2020-01-22] MEDS: [UNRECOGNIZED DRUG - OTHER] GT SCH (05:37)
[2020-01-22] MEDS: LEVOTHYROXINE SODIUM 50 MCG TABLET GT SCH (05:37)
[2020-01-22] MEDS: FAMOTIDINE 20 MG TABLET GT SCH (05:37)
[2020-01-22] MEDS: OSMOLITE 1.2 CAL 1,000 ML LIQUID GT PRN ×2 (05:37→23:01)
[2020-01-22 07:31] VITALS: BP 134/64
[2020-01-22] MEDS: ENOXAPARIN SODIUM 40 MG/0.4 ML DISP.SYRIN SQ SCH (08:31)
[2020-01-22] MEDS: [UNRECOGNIZED DRUG - OTHER] GT SCH (08:32)
[2020-01-22] MEDS: COD LIVER OIL/ZINC OXIDE OINT 113 GM TUBE TP SCH ×2 (08:32→20:43)
[2020-01-22] MEDS: CALCIUM CARB/VITAMIN D 600-400 MG TABLET GT SCH ×2 (08:32→20:43)
[2020-01-22] MEDS: HYDROGEN PEROXIDE 3% 118 ML BOTTLE TP SCH ×2 (08:58→18:56)
[2020-01-22] MEDS: diphenhydrAMINE 25 MG/10 ML UDC GT PRN (12:53)
[2020-01-22] MEDS: diphenhydrAMINE 1% CREAM 28.3 GM TUBE TP PRN (17:19)
[2020-01-22 19:38] VITALS: BP 152/70
[2020-01-22] MEDS: PROTEIN SUPPLEMENT (PROSTAT) 30 ML LIQUID GT SCH (20:43)
[2020-01-22] MEDS: [UNRECOGNIZED DRUG - OTHER] GT SCH (20:43)
[2020-01-22] MEDS: MINERAL OIL/PETROLAT OPHT OINT 3.5 GM TUBE EACHEYE SCH (21:39)
[2020-01-23] MEDS: IPRATROPIUM BROMIDE 0.5 MG/2.5 ML NEBU NEB SCH ×4 (00:30→19:12)
[2020-01-23] MEDS: ALBUTEROL SULFATE 2.5 MG/3 ML NEBU NEB SCH ×4 (00:30→19:12)
[2020-01-23] MEDS: POLYVINYL ALCOHOL OPHT DROPS 15 ML BOTTLE EACHEYE SCH ×6 (01:10→20:36)
[2020-01-23] MEDS: FAMOTIDINE 20 MG TABLET GT SCH (05:31)
[2020-01-23] MEDS: CARBIDOPA/LEVODOPA 25-100MG TABLET GT SCH ×3 (05:31→21:16)
[2020-01-23] MEDS: LEVOTHYROXINE SODIUM 50 MCG TABLET GT SCH (05:31)
[2020-01-23] MEDS: [UNRECOGNIZED DRUG - OTHER] GT SCH (05:31)
[2020-01-23 07:28] VITALS: BP 128/67
[2020-01-23] MEDS: HYDROGEN PEROXIDE 3% 118 ML BOTTLE TP SCH ×2 (09:00→20:29)
[2020-01-23] MEDS: [UNRECOGNIZED DRUG - OTHER] GT SCH (09:17)
[2020-01-23] MEDS: CALCIUM CARB/VITAMIN D 600-400 MG TABLET GT SCH ×2 (09:17→20:36)
[2020-01-23] MEDS: COD LIVER OIL/ZINC OXIDE OINT 113 GM TUBE TP SCH ×2 (09:18→20:36)
[2020-01-23] MEDS: ENOXAPARIN SODIUM 40 MG/0.4 ML DISP.SYRIN SQ SCH (09:24)
[2020-01-23] MEDS: OSMOLITE 1.2 CAL 1,000 ML LIQUID GT PRN (17:24)
[2020-01-23] MEDS: diphenhydrAMINE 25 MG/10 ML UDC GT PRN (17:31)
[2020-01-23 19:40] VITALS: BP 107/59
[2020-01-23] MEDS: [UNRECOGNIZED DRUG - OTHER] GT SCH (20:36)
[2020-01-23] MEDS: NEOMY/BACITRA/POLYMYXIN B OINT UD PACKET TP SCH (20:36)
[2020-01-23] MEDS: PROTEIN SUPPLEMENT (PROSTAT) 30 ML LIQUID GT SCH (20:36)
[2020-01-23] MEDS: MINERAL OIL/PETROLAT OPHT OINT 3.5 GM TUBE EACHEYE SCH (21:15)
[2020-01-24] MEDS: IPRATROPIUM BROMIDE 0.5 MG/2.5 ML NEBU NEB SCH ×4 (00:41→19:07)
[2020-01-24] MEDS: POLYVINYL ALCOHOL OPHT DROPS 15 ML BOTTLE EACHEYE SCH ×6 (00:41→21:03)
[2020-01-24] MEDS: ALBUTEROL SULFATE 2.5 MG/3 ML NEBU NEB SCH ×4 (00:41→19:07)
[2020-01-24] MEDS: diphenhydrAMINE 25 MG/10 ML UDC GT PRN (05:39)
[2020-01-24] MEDS: CARBIDOPA/LEVODOPA 25-100MG TABLET GT SCH ×3 (05:39→21:03)
[2020-01-24] MEDS: [UNRECOGNIZED DRUG - OTHER] GT SCH (05:39)
[2020-01-24] MEDS: FAMOTIDINE 20 MG TABLET GT SCH (05:39)
[2020-01-24] MEDS: LEVOTHYROXINE SODIUM 50 MCG TABLET GT SCH (05:39)
[2020-01-24] MEDS: HYDROGEN PEROXIDE 3% 118 ML BOTTLE TP SCH ×2 (07:14→21:11)
[2020-01-24 07:36] VITALS: BP 133/65
[2020-01-24] MEDS: NEOMY/BACITRA/POLYMYXIN B OINT UD PACKET TP SCH ×2 (09:10→21:03)
[2020-01-24] MEDS: CALCIUM CARB/VITAMIN D 600-400 MG TABLET GT SCH ×2 (09:10→21:03)
[2020-01-24] MEDS: COD LIVER OIL/ZINC OXIDE OINT 113 GM TUBE TP SCH ×2 (09:10→21:03)
[2020-01-24] MEDS: [UNRECOGNIZED DRUG - OTHER] GT SCH (09:10)
[2020-01-24] MEDS: ENOXAPARIN SODIUM 40 MG/0.4 ML DISP.SYRIN SQ SCH (09:11)
[2020-01-24] MEDS: OSMOLITE 1.2 CAL 1,000 ML LIQUID GT PRN (13:32)
[2020-01-24 20:30] VITALS: BP 127/53
[2020-01-24] MEDS: PROTEIN SUPPLEMENT (PROSTAT) 30 ML LIQUID GT SCH (21:03)
[2020-01-24] MEDS: MINERAL OIL/PETROLAT OPHT OINT 3.5 GM TUBE EACHEYE SCH (21:03)
[2020-01-24] MEDS: [UNRECOGNIZED DRUG - OTHER] GT SCH (21:03)
[2020-01-25] MEDS: ALBUTEROL SULFATE 2.5 MG/3 ML NEBU NEB SCH ×4 (00:37→19:13)
[2020-01-25] MEDS: IPRATROPIUM BROMIDE 0.5 MG/2.5 ML NEBU NEB SCH ×4 (00:37→19:13)
[2020-01-25] MEDS: POLYVINYL ALCOHOL OPHT DROPS 15 ML BOTTLE EACHEYE SCH ×6 (01:25→20:41)
[2020-01-25] MEDS: LEVOTHYROXINE SODIUM 50 MCG TABLET GT SCH (05:03)
[2020-01-25] MEDS: CARBIDOPA/LEVODOPA 25-100MG TABLET GT SCH ×3 (05:03→21:00)
[2020-01-25] MEDS: [UNRECOGNIZED DRUG - OTHER] GT SCH (05:03)
[2020-01-25] MEDS: FAMOTIDINE 20 MG TABLET GT SCH (06:05)
[2020-01-25 07:31] VITALS: BP 145/68
[2020-01-25] MEDS: CALCIUM CARB/VITAMIN D 600-400 MG TABLET GT SCH ×2 (09:27→20:41)
[2020-01-25] MEDS: [UNRECOGNIZED DRUG - OTHER] GT SCH (09:27)
[2020-01-25] MEDS: COD LIVER OIL/ZINC OXIDE OINT 113 GM TUBE TP SCH ×2 (09:28→20:43)
[2020-01-25] MEDS: NEOMY/BACITRA/POLYMYXIN B OINT UD PACKET TP SCH ×2 (09:28→20:43)
[2020-01-25] MEDS: ENOXAPARIN SODIUM 40 MG/0.4 ML DISP.SYRIN SQ SCH (09:31)
[2020-01-25] MEDS: HYDROGEN PEROXIDE 3% 118 ML BOTTLE TP SCH ×2 (09:36→20:50)
[2020-01-25] MEDS: OSMOLITE 1.2 CAL 1,000 ML LIQUID GT PRN (12:23)
[2020-01-25 20:22] VITALS: BP 99/55
[2020-01-25 20:28] VITALS: BP 138/65
[2020-01-25] MEDS: MINERAL OIL/PETROLAT OPHT OINT 3.5 GM TUBE EACHEYE SCH (20:41)
[2020-01-25] MEDS: [UNRECOGNIZED DRUG - OTHER] GT SCH (20:42)
[2020-01-25] MEDS: PROTEIN SUPPLEMENT (PROSTAT) 30 ML LIQUID GT SCH (20:43)
[2020-01-25] MEDS: diphenhydrAMINE 25 MG/10 ML UDC GT PRN (20:44)
[2020-01-26] MEDS: IPRATROPIUM BROMIDE 0.5 MG/2.5 ML NEBU NEB SCH ×4 (00:43→19:10)
[2020-01-26] MEDS: ALBUTEROL SULFATE 2.5 MG/3 ML NEBU NEB SCH ×4 (00:43→19:10)
[2020-01-26] MEDS: POLYVINYL ALCOHOL OPHT DROPS 15 ML BOTTLE EACHEYE SCH ×6 (01:00→20:54)
[2020-01-26] MEDS: LEVOTHYROXINE SODIUM 50 MCG TABLET GT SCH (05:26)
[2020-01-26] MEDS: [UNRECOGNIZED DRUG - OTHER] GT SCH (05:26)
[2020-01-26] MEDS: ALENDRONATE GT SCH (05:26)
[2020-01-26] MEDS: CARBIDOPA/LEVODOPA 25-100MG TABLET GT SCH ×3 (05:26→21:00)
[2020-01-26] MEDS: OSMOLITE 1.2 CAL 1,000 ML LIQUID GT PRN (05:27)
[2020-01-26] MEDS: FAMOTIDINE 20 MG TABLET GT SCH (05:35)
[2020-01-26 08:03] VITALS: BP 113/43
[2020-01-26] MEDS: HYDROGEN PEROXIDE 3% 118 ML BOTTLE TP SCH ×2 (08:51→21:01)
[2020-01-26] MEDS: CALCIUM CARB/VITAMIN D 600-400 MG TABLET GT SCH ×2 (09:35→20:54)
[2020-01-26] MEDS: [UNRECOGNIZED DRUG - OTHER] GT SCH (09:36)
[2020-01-26] MEDS: ENOXAPARIN SODIUM 40 MG/0.4 ML DISP.SYRIN SQ SCH (09:37)
[2020-01-26] MEDS: NEOMY/BACITRA/POLYMYXIN B OINT UD PACKET TP SCH ×2 (09:37→20:55)
[2020-01-26] MEDS: COD LIVER OIL/ZINC OXIDE OINT 113 GM TUBE TP SCH ×2 (09:37→20:55)
[2020-01-26] MEDS: MINERAL OIL/PETROLAT OPHT OINT 3.5 GM TUBE EACHEYE SCH (20:54)
[2020-01-26] MEDS: PROTEIN SUPPLEMENT (PROSTAT) 30 ML LIQUID GT SCH (20:55)
[2020-01-26] MEDS: [UNRECOGNIZED DRUG - OTHER] GT SCH (20:55)
[2020-01-26 22:48] VITALS: BP 118/58
[2020-01-27] MEDS: OSMOLITE 1.2 CAL 1,000 ML LIQUID GT PRN ×2 (00:20→22:00)
[2020-01-27] MEDS: IPRATROPIUM BROMIDE 0.5 MG/2.5 ML NEBU NEB SCH ×4 (00:33→19:10)
[2020-01-27] MEDS: ALBUTEROL SULFATE 2.5 MG/3 ML NEBU NEB SCH ×4 (00:33→19:10)
[2020-01-27] MEDS: POLYVINYL ALCOHOL OPHT DROPS 15 ML BOTTLE EACHEYE SCH ×7 (01:00→21:09)
[2020-01-27] MEDS: FAMOTIDINE 20 MG TABLET GT SCH (05:43)
[2020-01-27] MEDS: LEVOTHYROXINE SODIUM 50 MCG TABLET GT SCH (05:43)
[2020-01-27] MEDS: CARBIDOPA/LEVODOPA 25-100MG TABLET GT SCH ×3 (05:43→21:01)
[2020-01-27] MEDS: [UNRECOGNIZED DRUG - OTHER] GT SCH (05:43)
[2020-01-27] MEDS: HYDROGEN PEROXIDE 3% 118 ML BOTTLE TP SCH ×2 (07:32→20:54)
[2020-01-27 07:47] VITALS: BP 131/72
[2020-01-27] MEDS: [UNRECOGNIZED DRUG - OTHER] GT SCH (08:32)
[2020-01-27] MEDS: CALCIUM CARB/VITAMIN D 600-400 MG TABLET GT SCH ×2 (08:32→21:00)
[2020-01-27] MEDS: COD LIVER OIL/ZINC OXIDE OINT 113 GM TUBE TP SCH ×2 (08:33→21:01)
[2020-01-27] MEDS: ENOXAPARIN SODIUM 40 MG/0.4 ML DISP.SYRIN SQ SCH (08:33)
[2020-01-27] MEDS: NEOMY/BACITRA/POLYMYXIN B OINT UD PACKET TP SCH ×2 (08:33→21:01)
[2020-01-27] MEDS: diphenhydrAMINE 25 MG/10 ML UDC GT PRN (14:28)
--- NOTE | 2020-01-27 19:15 | NUR ---
SEEN AND EXAMINED BY DR. FLORES AND WITH NNO.
[2020-01-27 20:00] VITALS: BP 128/60
[2020-01-27] MEDS: MINERAL OIL/PETROLAT OPHT OINT 3.5 GM TUBE EACHEYE SCH (21:00)
[2020-01-27] MEDS: PROTEIN SUPPLEMENT (PROSTAT) 30 ML LIQUID GT SCH (21:00)
[2020-01-27] MEDS: [UNRECOGNIZED DRUG - OTHER] GT SCH (21:00)
[2020-01-27 22:00] VITALS: BP 128/60
[2020-01-28] MEDS: ALBUTEROL SULFATE 2.5 MG/3 ML NEBU NEB SCH ×4 (01:03→19:16)
[2020-01-28] MEDS: IPRATROPIUM BROMIDE 0.5 MG/2.5 ML NEBU NEB SCH ×4 (01:03→19:16)
[2020-01-28] MEDS: POLYVINYL ALCOHOL OPHT DROPS 15 ML BOTTLE EACHEYE SCH ×5 (04:39→21:00)
[2020-01-28] MEDS: CARBIDOPA/LEVODOPA 25-100MG TABLET GT SCH ×3 (05:27→22:05)
[2020-01-28] MEDS: [UNRECOGNIZED DRUG - OTHER] GT SCH (05:27)
[2020-01-28] MEDS: LEVOTHYROXINE SODIUM 50 MCG TABLET GT SCH (05:27)
[2020-01-28] MEDS: FAMOTIDINE 20 MG TABLET GT SCH (05:40)
[2020-01-28 07:50] VITALS: BP 131/72
[2020-01-28] MEDS: COD LIVER OIL/ZINC OXIDE OINT 113 GM TUBE TP SCH ×2 (08:59→21:00)
[2020-01-28] MEDS: CALCIUM CARB/VITAMIN D 600-400 MG TABLET GT SCH ×2 (08:59→21:00)
[2020-01-28] MEDS: NEOMY/BACITRA/POLYMYXIN B OINT UD PACKET TP SCH ×2 (08:59→21:00)
[2020-01-28] MEDS: [UNRECOGNIZED DRUG - OTHER] GT SCH (08:59)
[2020-01-28] MEDS: ENOXAPARIN SODIUM 40 MG/0.4 ML DISP.SYRIN SQ SCH (08:59)
[2020-01-28] MEDS: HYDROGEN PEROXIDE 3% 118 ML BOTTLE TP SCH ×2 (09:22→21:21)
--- NOTE | 2020-01-28 14:00 | NUR ---
Provided video chat to pt. and her daughter with no problem noted, pt remains comfortable all needs attended and anticipated.
[2020-01-28] MEDS: MINERAL OIL/PETROLAT OPHT OINT 3.5 GM TUBE EACHEYE SCH (21:00)
[2020-01-28] MEDS: [UNRECOGNIZED DRUG - OTHER] GT SCH (21:00)
[2020-01-28] MEDS: PROTEIN SUPPLEMENT (PROSTAT) 30 ML LIQUID GT SCH (21:00)
[2020-01-28 22:26] VITALS: BP 131/65
[2020-01-29] MEDS: IPRATROPIUM BROMIDE 0.5 MG/2.5 ML NEBU NEB SCH ×4 (00:30→19:10)
[2020-01-29] MEDS: ALBUTEROL SULFATE 2.5 MG/3 ML NEBU NEB SCH ×4 (00:30→19:10)
[2020-01-29] MEDS: POLYVINYL ALCOHOL OPHT DROPS 15 ML BOTTLE EACHEYE SCH ×6 (01:24→20:11)
[2020-01-29] MEDS: LEVOTHYROXINE SODIUM 50 MCG TABLET GT SCH (05:54)
[2020-01-29] MEDS: CARBIDOPA/LEVODOPA 25-100MG TABLET GT SCH ×3 (05:54→22:19)
[2020-01-29] MEDS: FAMOTIDINE 20 MG TABLET GT SCH (05:54)
[2020-01-29] MEDS: [UNRECOGNIZED DRUG - OTHER] GT SCH (05:54)
[2020-01-29 07:38] VITALS: BP 117/74
[2020-01-29] MEDS: CALCIUM CARB/VITAMIN D 600-400 MG TABLET GT SCH ×2 (08:37→20:11)
[2020-01-29] MEDS: [UNRECOGNIZED DRUG - OTHER] GT SCH (08:37)
[2020-01-29] MEDS: COD LIVER OIL/ZINC OXIDE OINT 113 GM TUBE TP SCH ×2 (08:37→20:12)
[2020-01-29] MEDS: NEOMY/BACITRA/POLYMYXIN B OINT UD PACKET TP SCH ×2 (08:37→20:12)
[2020-01-29] MEDS: ENOXAPARIN SODIUM 40 MG/0.4 ML DISP.SYRIN SQ SCH (08:38)
[2020-01-29] MEDS: HYDROGEN PEROXIDE 3% 118 ML BOTTLE TP SCH ×2 (09:09→20:12)
[2020-01-29] MEDS: OSMOLITE 1.2 CAL 1,000 ML LIQUID GT PRN (13:29)
[2020-01-29] MEDS: [UNRECOGNIZED DRUG - OTHER] GT SCH (20:11)
[2020-01-29] MEDS: MINERAL OIL/PETROLAT OPHT OINT 3.5 GM TUBE EACHEYE SCH (20:11)
[2020-01-29] MEDS: PROTEIN SUPPLEMENT (PROSTAT) 30 ML LIQUID GT SCH (20:12)
[2020-01-29 22:21] VITALS: BP 118/58
[2020-01-30] MEDS: POLYVINYL ALCOHOL OPHT DROPS 15 ML BOTTLE EACHEYE SCH ×6 (00:04→21:11)
[2020-01-30] MEDS: IPRATROPIUM BROMIDE 0.5 MG/2.5 ML NEBU NEB SCH ×4 (00:58→19:10)
[2020-01-30] MEDS: ALBUTEROL SULFATE 2.5 MG/3 ML NEBU NEB SCH ×4 (00:58→19:10)
[2020-01-30] MEDS: LEVOTHYROXINE SODIUM 50 MCG TABLET GT SCH (05:34)
[2020-01-30] MEDS: FAMOTIDINE 20 MG TABLET GT SCH (05:34)
[2020-01-30] MEDS: CARBIDOPA/LEVODOPA 25-100MG TABLET GT SCH ×3 (05:34→21:11)
[2020-01-30] MEDS: [UNRECOGNIZED DRUG - OTHER] GT SCH (05:34)
[2020-01-30 07:37] VITALS: BP 149/55
[2020-01-30] MEDS: HYDROGEN PEROXIDE 3% 118 ML BOTTLE TP SCH ×2 (07:50→21:14)
[2020-01-30] MEDS: [UNRECOGNIZED DRUG - OTHER] GT SCH (09:09)
[2020-01-30] MEDS: CALCIUM CARB/VITAMIN D 600-400 MG TABLET GT SCH ×2 (09:09→21:11)
[2020-01-30] MEDS: COD LIVER OIL/ZINC OXIDE OINT 113 GM TUBE TP SCH ×2 (09:10→21:11)
[2020-01-30] MEDS: ENOXAPARIN SODIUM 40 MG/0.4 ML DISP.SYRIN SQ SCH (09:10)
[2020-01-30] MEDS: NEOMY/BACITRA/POLYMYXIN B OINT UD PACKET TP SCH ×2 (09:10→21:11)
[2020-01-30] MEDS: [UNRECOGNIZED DRUG - OTHER] GT SCH (21:11)
[2020-01-30] MEDS: PROTEIN SUPPLEMENT (PROSTAT) 30 ML LIQUID GT SCH (21:11)
[2020-01-30] MEDS: MINERAL OIL/PETROLAT OPHT OINT 3.5 GM TUBE EACHEYE SCH (21:11)
[2020-01-30 21:33] VITALS: BP 136/50
[2020-01-31] MEDS: IPRATROPIUM BROMIDE 0.5 MG/2.5 ML NEBU NEB SCH ×4 (00:34→19:20)
[2020-01-31] MEDS: ALBUTEROL SULFATE 2.5 MG/3 ML NEBU NEB SCH ×4 (00:34→19:20)
[2020-01-31] MEDS: POLYVINYL ALCOHOL OPHT DROPS 15 ML BOTTLE EACHEYE SCH ×6 (01:06→21:32)
[2020-01-31] MEDS: LEVOTHYROXINE SODIUM 50 MCG TABLET GT SCH (05:22)
[2020-01-31] MEDS: [UNRECOGNIZED DRUG - OTHER] GT SCH (05:22)
[2020-01-31] MEDS: CARBIDOPA/LEVODOPA 25-100MG TABLET GT SCH ×3 (05:22→21:33)
[2020-01-31] MEDS: FAMOTIDINE 20 MG TABLET GT SCH (05:47)
[2020-01-31] MEDS: HYDROGEN PEROXIDE 3% 118 ML BOTTLE TP SCH ×2 (07:27→19:20)
[2020-01-31 07:28] VITALS: BP 150/64
[2020-01-31] MEDS: [UNRECOGNIZED DRUG - OTHER] GT SCH (08:23)
[2020-01-31] MEDS: CALCIUM CARB/VITAMIN D 600-400 MG TABLET GT SCH ×2 (08:23→21:33)
[2020-01-31] MEDS: NEOMY/BACITRA/POLYMYXIN B OINT UD PACKET TP SCH ×2 (08:24→21:33)
[2020-01-31] MEDS: COD LIVER OIL/ZINC OXIDE OINT 113 GM TUBE TP SCH ×2 (08:24→21:33)
[2020-01-31] MEDS: ENOXAPARIN SODIUM 40 MG/0.4 ML DISP.SYRIN SQ SCH (08:24)
[2020-01-31] MEDS: OSMOLITE 1.2 CAL 1,000 ML LIQUID GT PRN (12:33)
[2020-01-31 20:18] VITALS: BP 141/69
[2020-01-31] MEDS: PROTEIN SUPPLEMENT (PROSTAT) 30 ML LIQUID GT SCH (21:33)
[2020-01-31] MEDS: [UNRECOGNIZED DRUG - OTHER] GT SCH (21:33)
[2020-01-31] MEDS: MINERAL OIL/PETROLAT OPHT OINT 3.5 GM TUBE EACHEYE SCH (21:33)
[2020-02-01] MEDS: ALBUTEROL SULFATE 2.5 MG/3 ML NEBU NEB SCH ×4 (00:30→19:24)
[2020-02-01] MEDS: IPRATROPIUM BROMIDE 0.5 MG/2.5 ML NEBU NEB SCH ×4 (00:30→19:24)
[2020-02-01] MEDS: POLYVINYL ALCOHOL OPHT DROPS 15 ML BOTTLE EACHEYE SCH ×6 (01:40→21:00)
[2020-02-01] MEDS: CARBIDOPA/LEVODOPA 25-100MG TABLET GT SCH ×3 (05:36→22:03)
[2020-02-01] MEDS: FAMOTIDINE 20 MG TABLET GT SCH (05:36)
[2020-02-01] MEDS: [UNRECOGNIZED DRUG - OTHER] GT SCH (05:36)
[2020-02-01] MEDS: LEVOTHYROXINE SODIUM 50 MCG TABLET GT SCH (05:36)
[2020-02-01 07:35] VITALS: BP 135/75
[2020-02-01] MEDS: [UNRECOGNIZED DRUG - OTHER] GT SCH (09:45)
[2020-02-01] MEDS: CALCIUM CARB/VITAMIN D 600-400 MG TABLET GT SCH ×2 (09:45→21:00)
[2020-02-01] MEDS: ENOXAPARIN SODIUM 40 MG/0.4 ML DISP.SYRIN SQ SCH (09:47)
[2020-02-01] MEDS: NEOMY/BACITRA/POLYMYXIN B OINT UD PACKET TP SCH ×2 (09:47→21:00)
[2020-02-01] MEDS: COD LIVER OIL/ZINC OXIDE OINT 113 GM TUBE TP SCH ×2 (09:47→21:00)
[2020-02-01] MEDS: HYDROGEN PEROXIDE 3% 118 ML BOTTLE TP SCH ×2 (09:49→20:52)
[2020-02-01] MEDS: OSMOLITE 1.2 CAL 1,000 ML LIQUID GT PRN (10:20)
[2020-02-01] MEDS: diphenhydrAMINE 25 MG/10 ML UDC GT PRN (15:55)
[2020-02-01 20:04] VITALS: BP 134/57
[2020-02-01] MEDS: [UNRECOGNIZED DRUG - OTHER] GT SCH (21:00)
[2020-02-01] MEDS: PROTEIN SUPPLEMENT (PROSTAT) 30 ML LIQUID GT SCH (21:00)
[2020-02-01] MEDS: MINERAL OIL/PETROLAT OPHT OINT 3.5 GM TUBE EACHEYE SCH (21:00)
[2020-02-02] MEDS: IPRATROPIUM BROMIDE 0.5 MG/2.5 ML NEBU NEB SCH ×4 (00:40→19:15)
[2020-02-02] MEDS: ALBUTEROL SULFATE 2.5 MG/3 ML NEBU NEB SCH ×4 (00:40→19:15)
[2020-02-02] MEDS: POLYVINYL ALCOHOL OPHT DROPS 15 ML BOTTLE EACHEYE SCH ×6 (01:18→20:53)
[2020-02-02] MEDS: OSMOLITE 1.2 CAL 1,000 ML LIQUID GT PRN (04:42)
[2020-02-02] MEDS: [UNRECOGNIZED DRUG - OTHER] GT SCH (05:30)
[2020-02-02] MEDS: CARBIDOPA/LEVODOPA 25-100MG TABLET GT SCH ×3 (05:30→21:00)
[2020-02-02] MEDS: FAMOTIDINE 20 MG TABLET GT SCH (05:30)
[2020-02-02] MEDS: LEVOTHYROXINE SODIUM 50 MCG TABLET GT SCH (05:30)
[2020-02-02] MEDS: ALENDRONATE GT SCH (05:30)
[2020-02-02] MEDS: diphenhydrAMINE 1% CREAM 28.3 GM TUBE TP PRN (05:56)
[2020-02-02 07:25] VITALS: BP 122/61
[2020-02-02] MEDS: HYDROGEN PEROXIDE 3% 118 ML BOTTLE TP SCH ×2 (09:00→21:27)
[2020-02-02] MEDS: CALCIUM CARB/VITAMIN D 600-400 MG TABLET GT SCH ×2 (09:36→20:53)
[2020-02-02] MEDS: [UNRECOGNIZED DRUG - OTHER] GT SCH (09:37)
[2020-02-02] MEDS: ENOXAPARIN SODIUM 40 MG/0.4 ML DISP.SYRIN SQ SCH (09:38)
[2020-02-02] MEDS: COD LIVER OIL/ZINC OXIDE OINT 113 GM TUBE TP SCH ×2 (09:39→20:53)
[2020-02-02] MEDS: NEOMY/BACITRA/POLYMYXIN B OINT UD PACKET TP SCH ×2 (09:39→20:53)
[2020-02-02] MEDS: diphenhydrAMINE 25 MG/10 ML UDC GT PRN (10:20)
--- NOTE | 2020-02-02 14:17 | NUR ---
SW informed patient's daughter Kimberlee and son Adalberto, via email, that the next team meeting for the patient is scheduled for 02/08/2020 at 11am. SW asked Kimberlee and Tanya to let this SW know if they would like to participate in the meeting by speaker phone.
[2020-02-02 20:05] VITALS: BP 102/63
[2020-02-02 20:07] VITALS: BP 102/63
[2020-02-02 20:10] VITALS: BP 127/58
[2020-02-02] MEDS: PROTEIN SUPPLEMENT (PROSTAT) 30 ML LIQUID GT SCH (20:53)
[2020-02-02] MEDS: MINERAL OIL/PETROLAT OPHT OINT 3.5 GM TUBE EACHEYE SCH (20:53)
[2020-02-02] MEDS: [UNRECOGNIZED DRUG - OTHER] GT SCH (20:53)
[2020-02-03] MEDS: ALBUTEROL SULFATE 2.5 MG/3 ML NEBU NEB SCH ×4 (00:54→19:11)
[2020-02-03] MEDS: IPRATROPIUM BROMIDE 0.5 MG/2.5 ML NEBU NEB SCH ×4 (00:54→19:11)
[2020-02-03] MEDS: POLYVINYL ALCOHOL OPHT DROPS 15 ML BOTTLE EACHEYE SCH ×6 (01:27→21:00)
[2020-02-03] MEDS: FAMOTIDINE 20 MG TABLET GT SCH (05:55)
[2020-02-03] MEDS: OSMOLITE 1.2 CAL 1,000 ML LIQUID GT PRN (05:55)
[2020-02-03] MEDS: [UNRECOGNIZED DRUG - OTHER] GT SCH (05:55)
[2020-02-03] MEDS: CARBIDOPA/LEVODOPA 25-100MG TABLET GT SCH ×3 (05:55→22:22)
[2020-02-03] MEDS: LEVOTHYROXINE SODIUM 50 MCG TABLET GT SCH (05:55)
[2020-02-03 07:45] VITALS: BP 141/63
[2020-02-03] MEDS: ENOXAPARIN SODIUM 40 MG/0.4 ML DISP.SYRIN SQ SCH (08:13)
[2020-02-03] MEDS: CALCIUM CARB/VITAMIN D 600-400 MG TABLET GT SCH ×2 (08:14→21:00)
[2020-02-03] MEDS: NEOMY/BACITRA/POLYMYXIN B OINT UD PACKET TP SCH ×2 (08:14→21:00)
[2020-02-03] MEDS: [UNRECOGNIZED DRUG - OTHER] GT SCH (08:14)
[2020-02-03] MEDS: COD LIVER OIL/ZINC OXIDE OINT 113 GM TUBE TP SCH ×2 (08:14→21:00)
[2020-02-03] MEDS: HYDROGEN PEROXIDE 3% 118 ML BOTTLE TP SCH ×2 (09:00→21:07)
[2020-02-03 20:00] VITALS: BP 122/50
[2020-02-03] MEDS: [UNRECOGNIZED DRUG - OTHER] GT SCH (21:00)
[2020-02-03] MEDS: PROTEIN SUPPLEMENT (PROSTAT) 30 ML LIQUID GT SCH (21:00)
[2020-02-03] MEDS: MINERAL OIL/PETROLAT OPHT OINT 3.5 GM TUBE EACHEYE SCH (21:00)
[2020-02-04] MEDS: IPRATROPIUM BROMIDE 0.5 MG/2.5 ML NEBU NEB SCH ×4 (00:31→19:37)
[2020-02-04] MEDS: ALBUTEROL SULFATE 2.5 MG/3 ML NEBU NEB SCH ×4 (00:31→19:37)
[2020-02-04] MEDS: OSMOLITE 1.2 CAL 1,000 ML LIQUID GT PRN ×2 (00:49→21:39)
[2020-02-04] MEDS: POLYVINYL ALCOHOL OPHT DROPS 15 ML BOTTLE EACHEYE SCH ×6 (00:49→21:37)
[2020-02-04] MEDS: LEVOTHYROXINE SODIUM 50 MCG TABLET GT SCH (05:19)
[2020-02-04] MEDS: CARBIDOPA/LEVODOPA 25-100MG TABLET GT SCH ×3 (05:19→21:37)
[2020-02-04] MEDS: [UNRECOGNIZED DRUG - OTHER] GT SCH (05:19)
[2020-02-04] MEDS: FAMOTIDINE 20 MG TABLET GT SCH (05:31)
[2020-02-04 07:32] VITALS: BP 127/60
[2020-02-04] MEDS: [UNRECOGNIZED DRUG - OTHER] GT SCH (09:00)
--- NOTE | 2020-02-04 09:00 | NUR ---
MONIKA THOUGHT NOT GIVEN. MED NOT AVAILABLE. LEFT A MESSAGE TO DAUGHTER,GHADA.
[2020-02-04] MEDS: HYDROGEN PEROXIDE 3% 118 ML BOTTLE TP SCH ×2 (09:20→21:23)
[2020-02-04] MEDS: CALCIUM CARB/VITAMIN D 600-400 MG TABLET GT SCH ×2 (09:21→21:37)
[2020-02-04] MEDS: ENOXAPARIN SODIUM 40 MG/0.4 ML DISP.SYRIN SQ SCH (09:22)
[2020-02-04] MEDS: COD LIVER OIL/ZINC OXIDE OINT 113 GM TUBE TP SCH ×2 (09:22→21:37)
[2020-02-04] MEDS: NEOMY/BACITRA/POLYMYXIN B OINT UD PACKET TP SCH ×2 (09:22→21:37)
--- NOTE | 2020-02-04 09:23 | NUR ---
SW received an email from patient's daughter Kimberlee, stating that she and patient's son Adalberto would like to participate in the IDT meeting scheduled for 02/07. MARINO emailed Kimberlee and Adalberto back asking them to be available between 11am-12pm to receive the IDT team's call.
[2020-02-04 20:00] VITALS: BP 125/64
[2020-02-04] MEDS: PROTEIN SUPPLEMENT (PROSTAT) 30 ML LIQUID GT SCH (21:37)
[2020-02-04] MEDS: MINERAL OIL/PETROLAT OPHT OINT 3.5 GM TUBE EACHEYE SCH (21:37)
[2020-02-04] MEDS: [UNRECOGNIZED DRUG - OTHER] GT SCH (21:37)
[2020-02-05] MEDS: ALBUTEROL SULFATE 2.5 MG/3 ML NEBU NEB SCH ×4 (00:39→19:10)
[2020-02-05] MEDS: IPRATROPIUM BROMIDE 0.5 MG/2.5 ML NEBU NEB SCH ×4 (00:39→19:10)
[2020-02-05] MEDS: POLYVINYL ALCOHOL OPHT DROPS 15 ML BOTTLE EACHEYE SCH ×6 (01:02→20:06)
[2020-02-05] MEDS: CARBIDOPA/LEVODOPA 25-100MG TABLET GT SCH ×3 (05:16→21:57)
[2020-02-05] MEDS: [UNRECOGNIZED DRUG - OTHER] GT SCH (05:16)
[2020-02-05] MEDS: LEVOTHYROXINE SODIUM 50 MCG TABLET GT SCH (05:16)
[2020-02-05] MEDS: FAMOTIDINE 20 MG TABLET GT SCH (05:37)
[2020-02-05 07:48] VITALS: BP 129/67
[2020-02-05] MEDS: HYDROGEN PEROXIDE 3% 118 ML BOTTLE TP SCH ×2 (09:00→21:31)
[2020-02-05] MEDS: CALCIUM CARB/VITAMIN D 600-400 MG TABLET GT SCH ×2 (09:05→20:06)
[2020-02-05] MEDS: [UNRECOGNIZED DRUG - OTHER] GT SCH (09:06)
[2020-02-05] MEDS: ENOXAPARIN SODIUM 40 MG/0.4 ML DISP.SYRIN SQ SCH (09:07)
[2020-02-05] MEDS: COD LIVER OIL/ZINC OXIDE OINT 113 GM TUBE TP SCH ×2 (09:08→20:06)
[2020-02-05] MEDS: NEOMY/BACITRA/POLYMYXIN B OINT UD PACKET TP SCH ×2 (09:08→20:07)
[2020-02-05] MEDS: OSMOLITE 1.2 CAL 1,000 ML LIQUID GT PRN (19:49)
[2020-02-05] MEDS: PROTEIN SUPPLEMENT (PROSTAT) 30 ML LIQUID GT SCH (20:06)
[2020-02-05] MEDS: [UNRECOGNIZED DRUG - OTHER] GT SCH (20:06)
[2020-02-05] MEDS: MINERAL OIL/PETROLAT OPHT OINT 3.5 GM TUBE EACHEYE SCH (20:06)
[2020-02-05 22:08] VITALS: BP 136/67
[2020-02-06] MEDS: IPRATROPIUM BROMIDE 0.5 MG/2.5 ML NEBU NEB SCH ×4 (00:50→19:18)
[2020-02-06] MEDS: ALBUTEROL SULFATE 2.5 MG/3 ML NEBU NEB SCH ×4 (00:50→19:18)
[2020-02-06] MEDS: POLYVINYL ALCOHOL OPHT DROPS 15 ML BOTTLE EACHEYE SCH ×6 (01:07→20:26)
[2020-02-06] MEDS: ACETAMINOPHEN 650 MG/20 ML UDC- SA PATIENTS-PAIN ONLY GT PRN (01:12)
[2020-02-06] MEDS: [UNRECOGNIZED DRUG - OTHER] GT SCH (05:14)
[2020-02-06] MEDS: LEVOTHYROXINE SODIUM 50 MCG TABLET GT SCH (05:14)
[2020-02-06] MEDS: CARBIDOPA/LEVODOPA 25-100MG TABLET GT SCH ×3 (05:14→22:00)
[2020-02-06] MEDS: FAMOTIDINE 20 MG TABLET GT SCH (05:31)
[2020-02-06 07:36] VITALS: BP 132/65
[2020-02-06] MEDS: [UNRECOGNIZED DRUG - OTHER] GT SCH (08:41)
[2020-02-06] MEDS: CALCIUM CARB/VITAMIN D 600-400 MG TABLET GT SCH ×2 (08:41→20:26)
[2020-02-06] MEDS: ENOXAPARIN SODIUM 40 MG/0.4 ML DISP.SYRIN SQ SCH (08:42)
[2020-02-06] MEDS: NEOMY/BACITRA/POLYMYXIN B OINT UD PACKET TP SCH (08:42)
[2020-02-06] MEDS: COD LIVER OIL/ZINC OXIDE OINT 113 GM TUBE TP SCH ×2 (08:42→20:26)
[2020-02-06] MEDS: HYDROGEN PEROXIDE 3% 118 ML BOTTLE TP SCH ×2 (09:54→19:18)
[2020-02-06 20:24] VITALS: BP 116/67
[2020-02-06] MEDS: PROTEIN SUPPLEMENT (PROSTAT) 30 ML LIQUID GT SCH (20:26)
[2020-02-06] MEDS: [UNRECOGNIZED DRUG - OTHER] GT SCH (20:26)
[2020-02-06] MEDS: MINERAL OIL/PETROLAT OPHT OINT 3.5 GM TUBE EACHEYE SCH (20:26)
[2020-02-07] MEDS: IPRATROPIUM BROMIDE 0.5 MG/2.5 ML NEBU NEB SCH ×4 (00:35→19:26)
[2020-02-07] MEDS: ALBUTEROL SULFATE 2.5 MG/3 ML NEBU NEB SCH ×4 (00:35→19:26)
[2020-02-07] MEDS: POLYVINYL ALCOHOL OPHT DROPS 15 ML BOTTLE EACHEYE SCH ×6 (01:00→20:28)
[2020-02-07] MEDS: [UNRECOGNIZED DRUG - OTHER] GT SCH (05:38)
[2020-02-07] MEDS: FAMOTIDINE 20 MG TABLET GT SCH (05:38)
[2020-02-07] MEDS: OSMOLITE 1.2 CAL 1,000 ML LIQUID GT PRN (05:38)
[2020-02-07] MEDS: LEVOTHYROXINE SODIUM 50 MCG TABLET GT SCH (05:38)
[2020-02-07] MEDS: CARBIDOPA/LEVODOPA 25-100MG TABLET GT SCH ×3 (05:38→22:00)
[2020-02-07 07:43] VITALS: BP 132/70
[2020-02-07] MEDS: CALCIUM CARB/VITAMIN D 600-400 MG TABLET GT SCH ×2 (09:26→20:28)
[2020-02-07] MEDS: [UNRECOGNIZED DRUG - OTHER] GT SCH (09:26)
[2020-02-07] MEDS: COD LIVER OIL/ZINC OXIDE OINT 113 GM TUBE TP SCH ×2 (09:28→20:29)
[2020-02-07] MEDS: ENOXAPARIN SODIUM 40 MG/0.4 ML DISP.SYRIN SQ SCH (09:28)
--- NOTE | 2020-02-07 12:30 | NUR ---
Provided video chat to pt. and her son and daughter with no problem noted, pt remains comfortable with no signs of pain noted.
[2020-02-07] MEDS: HYDROGEN PEROXIDE 3% 118 ML BOTTLE TP SCH ×2 (12:49→21:59)
--- NOTE | 2020-02-07 15:12 | NUR ---
Daughter Kimberlee notified covid19 test will be done today, and in agreement.
[2020-02-07 20:19] VITALS: BP 125/58
[2020-02-07] MEDS: MINERAL OIL/PETROLAT OPHT OINT 3.5 GM TUBE EACHEYE SCH (20:28)
[2020-02-07] MEDS: [UNRECOGNIZED DRUG - OTHER] GT SCH (20:29)
[2020-02-07] MEDS: PROTEIN SUPPLEMENT (PROSTAT) 30 ML LIQUID GT SCH (20:29)
[2020-02-08] MEDS: IPRATROPIUM BROMIDE 0.5 MG/2.5 ML NEBU NEB SCH ×5 (00:39→19:51)
[2020-02-08] MEDS: ALBUTEROL SULFATE 2.5 MG/3 ML NEBU NEB SCH ×5 (00:39→19:51)
[2020-02-08] MEDS: POLYVINYL ALCOHOL OPHT DROPS 15 ML BOTTLE EACHEYE SCH ×6 (01:14→21:52)
[2020-02-08] MEDS: FAMOTIDINE 20 MG TABLET GT SCH (05:35)
[2020-02-08] MEDS: [UNRECOGNIZED DRUG - OTHER] GT SCH (05:35)
[2020-02-08] MEDS: CARBIDOPA/LEVODOPA 25-100MG TABLET GT SCH ×3 (05:35→21:53)
[2020-02-08] MEDS: LEVOTHYROXINE SODIUM 50 MCG TABLET GT SCH (05:35)
[2020-02-08 07:27] VITALS: BP 118/63
[2020-02-08] MEDS: HYDROGEN PEROXIDE 3% 118 ML BOTTLE TP SCH ×2 (07:30→21:25)
[2020-02-08] MEDS: COD LIVER OIL/ZINC OXIDE OINT 113 GM TUBE TP SCH ×2 (09:20→21:53)
[2020-02-08] MEDS: ENOXAPARIN SODIUM 40 MG/0.4 ML DISP.SYRIN SQ SCH (09:20)
[2020-02-08] MEDS: [UNRECOGNIZED DRUG - OTHER] GT SCH (09:20)
[2020-02-08] MEDS: CALCIUM CARB/VITAMIN D 600-400 MG TABLET GT SCH ×2 (09:20→21:52)
--- NOTE | 2020-02-08 15:24 | NUR ---
INTERDISCIPLINARY PLAN OF CARE CONFERENCE was held today. Patient daughter Kimberlee and son Adalberto participated in the IDT meeting through speaker phone. Dr. Yu and the Interdisciplinary Team reviewed the current plan of care in detail. Nursing reported on patient's medical condition, and current skin condition and treatment. See nursing IDT conference notes. No major changes in medical condition were reported by nursing or by other disciplines. See all other disciplines IDT notes and physician's progress notes for additional details. Kimberlee's and Adalberto's questions were addressed by the IDT team and by Dr. Yu, and both Kimberlee and Adalberto expressed being content with the current plan of care.
[2020-02-08 20:10] VITALS: BP 147/62
[2020-02-08] MEDS: [UNRECOGNIZED DRUG - OTHER] GT SCH (21:52)
[2020-02-08] MEDS: MINERAL OIL/PETROLAT OPHT OINT 3.5 GM TUBE EACHEYE SCH (21:52)
[2020-02-08] MEDS: PROTEIN SUPPLEMENT (PROSTAT) 30 ML LIQUID GT SCH (21:53)
[2020-02-09] MEDS: POLYVINYL ALCOHOL OPHT DROPS 15 ML BOTTLE EACHEYE SCH ×6 (01:00→21:54)
[2020-02-09] MEDS: IPRATROPIUM BROMIDE 0.5 MG/2.5 ML NEBU NEB SCH ×4 (01:22→19:22)
[2020-02-09] MEDS: ALBUTEROL SULFATE 2.5 MG/3 ML NEBU NEB SCH ×4 (01:22→19:22)
[2020-02-09] MEDS: OSMOLITE 1.2 CAL 1,000 ML LIQUID GT PRN (04:09)
[2020-02-09] MEDS: ALENDRONATE GT SCH (05:26)
[2020-02-09] MEDS: [UNRECOGNIZED DRUG - OTHER] GT SCH (05:26)
[2020-02-09] MEDS: CARBIDOPA/LEVODOPA 25-100MG TABLET GT SCH ×3 (05:26→21:56)
[2020-02-09] MEDS: LEVOTHYROXINE SODIUM 50 MCG TABLET GT SCH (05:27)
[2020-02-09] MEDS: FAMOTIDINE 20 MG TABLET GT SCH (06:31)
[2020-02-09 07:31] VITALS: BP 124/58
[2020-02-09] MEDS: COD LIVER OIL/ZINC OXIDE OINT 113 GM TUBE TP SCH ×2 (09:00→21:55)
[2020-02-09] MEDS: [UNRECOGNIZED DRUG - OTHER] GT SCH (09:00)
[2020-02-09] MEDS: ENOXAPARIN SODIUM 40 MG/0.4 ML DISP.SYRIN SQ SCH (09:00)
[2020-02-09] MEDS: HYDROGEN PEROXIDE 3% 118 ML BOTTLE TP SCH ×2 (09:00→20:55)
[2020-02-09] MEDS: CALCIUM CARB/VITAMIN D 600-400 MG TABLET GT SCH ×2 (09:00→21:54)
[2020-02-09 20:16] VITALS: BP 148/58
[2020-02-09] MEDS: PROTEIN SUPPLEMENT (PROSTAT) 30 ML LIQUID GT SCH (21:54)
[2020-02-09] MEDS: MINERAL OIL/PETROLAT OPHT OINT 3.5 GM TUBE EACHEYE SCH (21:54)
[2020-02-09] MEDS: [UNRECOGNIZED DRUG - OTHER] GT SCH (21:54)
--- NOTE | 2020-02-09 22:18 | NUR ---
called son,kush notified covid 19-negative.
[2020-02-10] MEDS: IPRATROPIUM BROMIDE 0.5 MG/2.5 ML NEBU NEB SCH ×4 (00:32→19:16)
[2020-02-10] MEDS: ALBUTEROL SULFATE 2.5 MG/3 ML NEBU NEB SCH ×4 (00:32→19:16)
[2020-02-10] MEDS: OSMOLITE 1.2 CAL 1,000 ML LIQUID GT PRN ×2 (01:17→22:35)
[2020-02-10] MEDS: POLYVINYL ALCOHOL OPHT DROPS 15 ML BOTTLE EACHEYE SCH ×6 (01:17→21:37)
[2020-02-10] MEDS: FAMOTIDINE 20 MG TABLET GT SCH (05:56)
[2020-02-10] MEDS: CARBIDOPA/LEVODOPA 25-100MG TABLET GT SCH ×3 (05:56→21:38)
[2020-02-10] MEDS: LEVOTHYROXINE SODIUM 50 MCG TABLET GT SCH (05:56)
[2020-02-10] MEDS: [UNRECOGNIZED DRUG - OTHER] GT SCH (05:56)
[2020-02-10] MEDS: HYDROGEN PEROXIDE 3% 118 ML BOTTLE TP SCH ×2 (07:21→21:08)
[2020-02-10 07:38] VITALS: BP 116/74
[2020-02-10] MEDS: [UNRECOGNIZED DRUG - OTHER] GT SCH (08:04)
[2020-02-10] MEDS: CALCIUM CARB/VITAMIN D 600-400 MG TABLET GT SCH ×2 (08:04→21:37)
[2020-02-10] MEDS: COD LIVER OIL/ZINC OXIDE OINT 113 GM TUBE TP SCH ×2 (08:05→21:38)
[2020-02-10] MEDS: ENOXAPARIN SODIUM 40 MG/0.4 ML DISP.SYRIN SQ SCH (08:05)
[2020-02-10] MEDS: MINERAL OIL/PETROLAT OPHT OINT 3.5 GM TUBE EACHEYE SCH (21:37)
[2020-02-10] MEDS: [UNRECOGNIZED DRUG - OTHER] GT SCH (21:38)
[2020-02-10] MEDS: PROTEIN SUPPLEMENT (PROSTAT) 30 ML LIQUID GT SCH (21:38)
[2020-02-10 22:48] VITALS: BP 108/57
[2020-02-11] MEDS: ALBUTEROL SULFATE 2.5 MG/3 ML NEBU NEB SCH ×4 (00:30→19:32)
[2020-02-11] MEDS: IPRATROPIUM BROMIDE 0.5 MG/2.5 ML NEBU NEB SCH ×4 (00:30→19:32)
[2020-02-11] MEDS: POLYVINYL ALCOHOL OPHT DROPS 15 ML BOTTLE EACHEYE SCH ×6 (01:00→20:33)
[2020-02-11] MEDS: LEVOTHYROXINE SODIUM 50 MCG TABLET GT SCH (05:38)
[2020-02-11] MEDS: CARBIDOPA/LEVODOPA 25-100MG TABLET GT SCH ×3 (05:38→21:08)
[2020-02-11] MEDS: [UNRECOGNIZED DRUG - OTHER] GT SCH (05:38)
[2020-02-11] MEDS: FAMOTIDINE 20 MG TABLET GT SCH (05:38)
[2020-02-11 07:32] VITALS: BP 111/61
[2020-02-11] MEDS: [UNRECOGNIZED DRUG - OTHER] GT SCH (08:04)
[2020-02-11] MEDS: CALCIUM CARB/VITAMIN D 600-400 MG TABLET GT SCH ×2 (08:04→20:33)
[2020-02-11] MEDS: ENOXAPARIN SODIUM 40 MG/0.4 ML DISP.SYRIN SQ SCH (08:05)
[2020-02-11] MEDS: COD LIVER OIL/ZINC OXIDE OINT 113 GM TUBE TP SCH ×2 (08:05→20:33)
[2020-02-11] MEDS: HYDROGEN PEROXIDE 3% 118 ML BOTTLE TP SCH ×2 (09:20→21:25)
[2020-02-11] MEDS: OSMOLITE 1.2 CAL 1,000 ML LIQUID GT PRN (18:10)
[2020-02-11] MEDS: PROTEIN SUPPLEMENT (PROSTAT) 30 ML LIQUID GT SCH (20:33)
[2020-02-11] MEDS: [UNRECOGNIZED DRUG - OTHER] GT SCH (20:33)
[2020-02-11] MEDS: MINERAL OIL/PETROLAT OPHT OINT 3.5 GM TUBE EACHEYE SCH (21:08)
[2020-02-11 22:13] VITALS: BP 112/58
--- NOTE | 2020-02-12 00:25 | NUR ---
For COVID-19 testing as per [facility] requirement.
[2020-02-12] MEDS: POLYVINYL ALCOHOL OPHT DROPS 15 ML BOTTLE EACHEYE SCH ×6 (00:40→20:38)
[2020-02-12] MEDS: IPRATROPIUM BROMIDE 0.5 MG/2.5 ML NEBU NEB SCH ×4 (01:29→19:31)
[2020-02-12] MEDS: ALBUTEROL SULFATE 2.5 MG/3 ML NEBU NEB SCH ×4 (01:30→19:31)
[2020-02-12] MEDS: CARBIDOPA/LEVODOPA 25-100MG TABLET GT SCH ×3 (05:33→21:25)
[2020-02-12] MEDS: FAMOTIDINE 20 MG TABLET GT SCH (05:33)
[2020-02-12] MEDS: [UNRECOGNIZED DRUG - OTHER] GT SCH (05:33)
[2020-02-12] MEDS: LEVOTHYROXINE SODIUM 50 MCG TABLET GT SCH (05:33)
[2020-02-12 07:36] VITALS: BP 113/72
[2020-02-12] MEDS: CALCIUM CARB/VITAMIN D 600-400 MG TABLET GT SCH ×2 (08:58→20:38)
[2020-02-12] MEDS: [UNRECOGNIZED DRUG - OTHER] GT SCH (08:58)
[2020-02-12] MEDS: HYDROGEN PEROXIDE 3% 118 ML BOTTLE TP SCH ×2 (08:58→21:20)
[2020-02-12] MEDS: ENOXAPARIN SODIUM 40 MG/0.4 ML DISP.SYRIN SQ SCH (08:59)
[2020-02-12] MEDS: COD LIVER OIL/ZINC OXIDE OINT 113 GM TUBE TP SCH ×2 (09:11→20:38)
--- NOTE | 2020-02-12 12:37 | NUR ---
PT'S DTR. GHADA WAS CALLED AND MESSAGE LEFT RE: COVID 19 TEST TODAY
[2020-02-12] MEDS: PROTEIN SUPPLEMENT (PROSTAT) 30 ML LIQUID GT SCH (20:38)
[2020-02-12] MEDS: [UNRECOGNIZED DRUG - OTHER] GT SCH (20:38)
[2020-02-12] MEDS: MINERAL OIL/PETROLAT OPHT OINT 3.5 GM TUBE EACHEYE SCH (21:25)
[2020-02-12 22:09] VITALS: BP 120/56
[2020-02-13] MEDS: POLYVINYL ALCOHOL OPHT DROPS 15 ML BOTTLE EACHEYE SCH ×6 (00:47→20:44)
[2020-02-13] MEDS: ALBUTEROL SULFATE 2.5 MG/3 ML NEBU NEB SCH ×4 (01:08→19:22)
[2020-02-13] MEDS: IPRATROPIUM BROMIDE 0.5 MG/2.5 ML NEBU NEB SCH ×4 (01:08→19:22)
[2020-02-13] MEDS: [UNRECOGNIZED DRUG - OTHER] GT SCH (05:39)
[2020-02-13] MEDS: LEVOTHYROXINE SODIUM 50 MCG TABLET GT SCH (05:40)
[2020-02-13] MEDS: FAMOTIDINE 20 MG TABLET GT SCH (05:40)
[2020-02-13] MEDS: CARBIDOPA/LEVODOPA 25-100MG TABLET GT SCH ×3 (05:40→21:29)
[2020-02-13 07:28] VITALS: BP 103/58
[2020-02-13] MEDS: [UNRECOGNIZED DRUG - OTHER] GT SCH (08:29)
[2020-02-13] MEDS: COD LIVER OIL/ZINC OXIDE OINT 113 GM TUBE TP SCH ×2 (08:29→20:44)
[2020-02-13] MEDS: CALCIUM CARB/VITAMIN D 600-400 MG TABLET GT SCH ×2 (08:29→20:44)
[2020-02-13] MEDS: ENOXAPARIN SODIUM 40 MG/0.4 ML DISP.SYRIN SQ SCH (08:30)
[2020-02-13] MEDS: HYDROGEN PEROXIDE 3% 118 ML BOTTLE TP SCH ×2 (08:37→21:38)
--- NOTE | 2020-02-13 18:30 | NUR ---
MESSAGE LEFT TO PT'S DTR. GHADA RE: NEGATIVE COVID 19 TEST.
[2020-02-13] MEDS: [UNRECOGNIZED DRUG - OTHER] GT SCH (20:44)
[2020-02-13] MEDS: PROTEIN SUPPLEMENT (PROSTAT) 30 ML LIQUID GT SCH (20:44)
[2020-02-13] MEDS: MINERAL OIL/PETROLAT OPHT OINT 3.5 GM TUBE EACHEYE SCH (21:29)
[2020-02-13 22:12] VITALS: BP 123/54
[2020-02-14] MEDS: POLYVINYL ALCOHOL OPHT DROPS 15 ML BOTTLE EACHEYE SCH ×6 (00:27→20:53)
[2020-02-14] MEDS: IPRATROPIUM BROMIDE 0.5 MG/2.5 ML NEBU NEB SCH ×4 (01:16→19:18)
[2020-02-14] MEDS: ALBUTEROL SULFATE 2.5 MG/3 ML NEBU NEB SCH ×4 (01:16→19:18)
[2020-02-14] MEDS: OSMOLITE 1.2 CAL 1,000 ML LIQUID GT PRN (02:08)
[2020-02-14] MEDS: [UNRECOGNIZED DRUG - OTHER] GT SCH (06:06)
[2020-02-14] MEDS: LEVOTHYROXINE SODIUM 50 MCG TABLET GT SCH (06:07)
[2020-02-14] MEDS: CARBIDOPA/LEVODOPA 25-100MG TABLET GT SCH ×3 (06:07→22:00)
[2020-02-14] MEDS: FAMOTIDINE 20 MG TABLET GT SCH (06:07)
[2020-02-14 07:35] VITALS: BP 123/61
[2020-02-14] MEDS: HYDROGEN PEROXIDE 3% 118 ML BOTTLE TP SCH ×2 (07:53→21:21)
[2020-02-14] MEDS: COD LIVER OIL/ZINC OXIDE OINT 113 GM TUBE TP SCH ×2 (08:20→20:54)
[2020-02-14] MEDS: CALCIUM CARB/VITAMIN D 600-400 MG TABLET GT SCH ×2 (08:20→20:54)
[2020-02-14] MEDS: [UNRECOGNIZED DRUG - OTHER] GT SCH (08:20)
[2020-02-14] MEDS: ENOXAPARIN SODIUM 40 MG/0.4 ML DISP.SYRIN SQ SCH (09:00)
--- NOTE | 2020-02-14 13:48 | NUR ---
SEEN AND EXAMINED BY DANNIE Bailey AND WITH BOBBYO.
[2020-02-14 20:00] VITALS: BP 126/53
[2020-02-14] MEDS: MINERAL OIL/PETROLAT OPHT OINT 3.5 GM TUBE EACHEYE SCH (20:53)
[2020-02-14] MEDS: [UNRECOGNIZED DRUG - OTHER] GT SCH (20:54)
[2020-02-14] MEDS: PROTEIN SUPPLEMENT (PROSTAT) 30 ML LIQUID GT SCH (20:54)
[2020-02-15] MEDS: IPRATROPIUM BROMIDE 0.5 MG/2.5 ML NEBU NEB SCH ×4 (00:32→19:20)
[2020-02-15] MEDS: ALBUTEROL SULFATE 2.5 MG/3 ML NEBU NEB SCH ×4 (00:32→19:20)
[2020-02-15] MEDS: POLYVINYL ALCOHOL OPHT DROPS 15 ML BOTTLE EACHEYE SCH ×6 (01:02→20:54)
[2020-02-15] MEDS: [UNRECOGNIZED DRUG - OTHER] GT SCH (06:49)
[2020-02-15] MEDS: FAMOTIDINE 20 MG TABLET GT SCH (06:49)
[2020-02-15] MEDS: CARBIDOPA/LEVODOPA 25-100MG TABLET GT SCH ×3 (06:49→21:03)
[2020-02-15] MEDS: OSMOLITE 1.2 CAL 1,000 ML LIQUID GT PRN (06:49)
[2020-02-15] MEDS: LEVOTHYROXINE SODIUM 50 MCG TABLET GT SCH (06:49)
[2020-02-15 07:27] VITALS: BP 132/60
[2020-02-15] MEDS: HYDROGEN PEROXIDE 3% 118 ML BOTTLE TP SCH ×2 (08:53→21:02)
[2020-02-15] MEDS: [UNRECOGNIZED DRUG - OTHER] GT SCH (09:14)
[2020-02-15] MEDS: CALCIUM CARB/VITAMIN D 600-400 MG TABLET GT SCH ×2 (09:14→20:54)
[2020-02-15] MEDS: ENOXAPARIN SODIUM 40 MG/0.4 ML DISP.SYRIN SQ SCH (09:17)
[2020-02-15] MEDS: COD LIVER OIL/ZINC OXIDE OINT 113 GM TUBE TP SCH ×2 (09:19→20:55)
[2020-02-15] MEDS: diphenhydrAMINE 1% CREAM 28.3 GM TUBE TP PRN (14:16)
[2020-02-15] MEDS: diphenhydrAMINE 25 MG/10 ML UDC GT PRN (14:16)
--- NOTE | 2020-02-15 14:21 | NUR ---
Seen and examined by Josi Rodriguez,no new orders.
[2020-02-15 20:00] VITALS: BP 134/59
[2020-02-15] MEDS: MINERAL OIL/PETROLAT OPHT OINT 3.5 GM TUBE EACHEYE SCH (20:54)
[2020-02-15] MEDS: [UNRECOGNIZED DRUG - OTHER] GT SCH (20:55)
[2020-02-15] MEDS: PROTEIN SUPPLEMENT (PROSTAT) 30 ML LIQUID GT SCH (20:55)
[2020-02-16] MEDS: IPRATROPIUM BROMIDE 0.5 MG/2.5 ML NEBU NEB SCH ×4 (00:32→19:15)
[2020-02-16] MEDS: ALBUTEROL SULFATE 2.5 MG/3 ML NEBU NEB SCH ×4 (00:32→19:15)
[2020-02-16] MEDS: OSMOLITE 1.2 CAL 1,000 ML LIQUID GT PRN (00:45)
[2020-02-16] MEDS: POLYVINYL ALCOHOL OPHT DROPS 15 ML BOTTLE EACHEYE SCH ×6 (01:15→20:37)
[2020-02-16] MEDS: ALENDRONATE GT SCH (06:10)
[2020-02-16] MEDS: LEVOTHYROXINE SODIUM 50 MCG TABLET GT SCH (06:10)
[2020-02-16] MEDS: [UNRECOGNIZED DRUG - OTHER] GT SCH (06:10)
[2020-02-16] MEDS: CARBIDOPA/LEVODOPA 25-100MG TABLET GT SCH ×3 (06:10→22:09)
[2020-02-16] MEDS: FAMOTIDINE 20 MG TABLET GT SCH (06:10)
[2020-02-16 07:35] VITALS: BP 120/61
[2020-02-16] MEDS: HYDROGEN PEROXIDE 3% 118 ML BOTTLE TP SCH ×2 (07:45→21:40)
[2020-02-16] MEDS: COD LIVER OIL/ZINC OXIDE OINT 113 GM TUBE TP SCH ×2 (08:23→20:37)
[2020-02-16] MEDS: ENOXAPARIN SODIUM 40 MG/0.4 ML DISP.SYRIN SQ SCH (08:23)
[2020-02-16] MEDS: CALCIUM CARB/VITAMIN D 600-400 MG TABLET GT SCH ×2 (08:31→20:37)
[2020-02-16] MEDS: [UNRECOGNIZED DRUG - OTHER] GT SCH (08:31)
[2020-02-16] MEDS: diphenhydrAMINE 25 MG/10 ML UDC GT PRN (16:00)
[2020-02-16] MEDS: diphenhydrAMINE 1% CREAM 28.3 GM TUBE TP PRN (16:40)
--- NOTE | 2020-02-16 17:14 | NUR ---
new orders for neck rashes with triamcinolone and nystatin cream x 21 days ,Kimberlee garay's daughter notified regarding the new orders.
[2020-02-16 20:00] VITALS: BP 110/61
[2020-02-16] MEDS: NYSTATIN CREAM 30 GM TUBE TOP SCH (20:37)
[2020-02-16] MEDS: PROTEIN SUPPLEMENT (PROSTAT) 30 ML LIQUID GT SCH (20:37)
[2020-02-16] MEDS: TRIAMCINOLONE ACET 0.1% CREAM 15 GM TUBE TP SCH (20:37)
[2020-02-16] MEDS: MINERAL OIL/PETROLAT OPHT OINT 3.5 GM TUBE EACHEYE SCH (20:37)
[2020-02-16] MEDS: [UNRECOGNIZED DRUG - OTHER] GT SCH (20:37)
[2020-02-17] MEDS: OSMOLITE 1.2 CAL 1,000 ML LIQUID GT PRN ×2 (00:30→17:10)
[2020-02-17] MEDS: ALBUTEROL SULFATE 2.5 MG/3 ML NEBU NEB SCH ×4 (00:47→18:30)
[2020-02-17] MEDS: IPRATROPIUM BROMIDE 0.5 MG/2.5 ML NEBU NEB SCH ×4 (00:47→18:30)
[2020-02-17] MEDS: POLYVINYL ALCOHOL OPHT DROPS 15 ML BOTTLE EACHEYE SCH ×6 (01:00→20:51)
[2020-02-17] MEDS: LEVOTHYROXINE SODIUM 50 MCG TABLET GT SCH (05:26)
[2020-02-17] MEDS: CARBIDOPA/LEVODOPA 25-100MG TABLET GT SCH ×3 (05:26→21:03)
[2020-02-17] MEDS: [UNRECOGNIZED DRUG - OTHER] GT SCH (05:26)
[2020-02-17] MEDS: FAMOTIDINE 20 MG TABLET GT SCH (05:30)
[2020-02-17 07:21] VITALS: BP 119/60
[2020-02-17] MEDS: HYDROGEN PEROXIDE 3% 118 ML BOTTLE TP SCH ×2 (07:26→21:38)
[2020-02-17] MEDS: CALCIUM CARB/VITAMIN D 600-400 MG TABLET GT SCH ×2 (08:11→20:52)
[2020-02-17] MEDS: [UNRECOGNIZED DRUG - OTHER] GT SCH (08:11)
[2020-02-17] MEDS: TRIAMCINOLONE ACET 0.1% CREAM 15 GM TUBE TP SCH ×2 (08:13→20:54)
[2020-02-17] MEDS: COD LIVER OIL/ZINC OXIDE OINT 113 GM TUBE TP SCH ×2 (08:13→20:53)
[2020-02-17] MEDS: NYSTATIN CREAM 30 GM TUBE TOP SCH ×2 (08:13→20:53)
[2020-02-17] MEDS: ENOXAPARIN SODIUM 40 MG/0.4 ML DISP.SYRIN SQ SCH (08:13)
[2020-02-17 20:00] VITALS: BP 136/60
[2020-02-17] MEDS: MINERAL OIL/PETROLAT OPHT OINT 3.5 GM TUBE EACHEYE SCH (20:52)
[2020-02-17] MEDS: PROTEIN SUPPLEMENT (PROSTAT) 30 ML LIQUID GT SCH (20:53)
[2020-02-17] MEDS: [UNRECOGNIZED DRUG - OTHER] GT SCH (20:53)
[2020-02-18] MEDS: IPRATROPIUM BROMIDE 0.5 MG/2.5 ML NEBU NEB SCH ×4 (00:30→19:27)
[2020-02-18] MEDS: ALBUTEROL SULFATE 2.5 MG/3 ML NEBU NEB SCH ×4 (00:30→19:27)
[2020-02-18] MEDS: POLYVINYL ALCOHOL OPHT DROPS 15 ML BOTTLE EACHEYE SCH ×6 (01:00→21:39)
[2020-02-18] MEDS: CARBIDOPA/LEVODOPA 25-100MG TABLET GT SCH ×3 (05:41→21:40)
[2020-02-18] MEDS: FAMOTIDINE 20 MG TABLET GT SCH (05:41)
[2020-02-18] MEDS: [UNRECOGNIZED DRUG - OTHER] GT SCH (05:41)
[2020-02-18] MEDS: LEVOTHYROXINE SODIUM 50 MCG TABLET GT SCH (05:41)
[2020-02-18 07:27] VITALS: BP 124/60
[2020-02-18] MEDS: [UNRECOGNIZED DRUG - OTHER] GT SCH (08:09)
[2020-02-18] MEDS: CALCIUM CARB/VITAMIN D 600-400 MG TABLET GT SCH ×2 (08:09→21:39)
[2020-02-18] MEDS: ENOXAPARIN SODIUM 40 MG/0.4 ML DISP.SYRIN SQ SCH (08:10)
[2020-02-18] MEDS: NYSTATIN CREAM 30 GM TUBE TOP SCH ×2 (08:11→21:40)
[2020-02-18] MEDS: COD LIVER OIL/ZINC OXIDE OINT 113 GM TUBE TP SCH ×2 (08:11→21:40)
[2020-02-18] MEDS: TRIAMCINOLONE ACET 0.1% CREAM 15 GM TUBE TP SCH ×2 (08:11→21:41)
[2020-02-18] MEDS: HYDROGEN PEROXIDE 3% 118 ML BOTTLE TP SCH ×2 (09:29→21:38)
--- NOTE | 2020-02-18 11:57 | NUR ---
Daughter Kimberlee notified covic19 test will be done later today.
[2020-02-18] MEDS: OSMOLITE 1.2 CAL 1,000 ML LIQUID GT PRN (14:26)
[2020-02-18] MEDS: diphenhydrAMINE 25 MG/10 ML UDC GT PRN (15:28)
[2020-02-18 20:00] VITALS: BP 135/57
[2020-02-18] MEDS: [UNRECOGNIZED DRUG - OTHER] GT SCH (21:39)
[2020-02-18] MEDS: PROTEIN SUPPLEMENT (PROSTAT) 30 ML LIQUID GT SCH (21:39)
[2020-02-18] MEDS: MINERAL OIL/PETROLAT OPHT OINT 3.5 GM TUBE EACHEYE SCH (21:39)
[2020-02-19] MEDS: ALBUTEROL SULFATE 2.5 MG/3 ML NEBU NEB SCH ×4 (00:30→19:39)
[2020-02-19] MEDS: IPRATROPIUM BROMIDE 0.5 MG/2.5 ML NEBU NEB SCH ×4 (00:30→19:39)
[2020-02-19] MEDS: POLYVINYL ALCOHOL OPHT DROPS 15 ML BOTTLE EACHEYE SCH ×6 (01:31→20:49)
[2020-02-19] MEDS: [UNRECOGNIZED DRUG - OTHER] GT SCH (06:05)
[2020-02-19] MEDS: LEVOTHYROXINE SODIUM 50 MCG TABLET GT SCH (06:05)
[2020-02-19] MEDS: FAMOTIDINE 20 MG TABLET GT SCH (06:05)
[2020-02-19] MEDS: CARBIDOPA/LEVODOPA 25-100MG TABLET GT SCH ×3 (06:05→22:31)
[2020-02-19 07:50] VITALS: BP 110/53
[2020-02-19] MEDS: [UNRECOGNIZED DRUG - OTHER] GT SCH (09:03)
[2020-02-19] MEDS: CALCIUM CARB/VITAMIN D 600-400 MG TABLET GT SCH ×2 (09:03→20:49)
[2020-02-19] MEDS: ENOXAPARIN SODIUM 40 MG/0.4 ML DISP.SYRIN SQ SCH (09:04)
[2020-02-19] MEDS: COD LIVER OIL/ZINC OXIDE OINT 113 GM TUBE TP SCH ×2 (09:07→20:50)
[2020-02-19] MEDS: NYSTATIN CREAM 30 GM TUBE TOP SCH ×2 (09:07→20:50)
[2020-02-19] MEDS: TRIAMCINOLONE ACET 0.1% CREAM 15 GM TUBE TP SCH ×2 (09:07→20:50)
[2020-02-19] MEDS: HYDROGEN PEROXIDE 3% 118 ML BOTTLE TP SCH ×2 (09:30→19:39)
[2020-02-19] MEDS: OSMOLITE 1.2 CAL 1,000 ML LIQUID GT PRN (15:20)
[2020-02-19 20:29] VITALS: BP 116/51
[2020-02-19] MEDS: MINERAL OIL/PETROLAT OPHT OINT 3.5 GM TUBE EACHEYE SCH (20:49)
[2020-02-19] MEDS: PROTEIN SUPPLEMENT (PROSTAT) 30 ML LIQUID GT SCH (20:50)
[2020-02-19] MEDS: [UNRECOGNIZED DRUG - OTHER] GT SCH (20:50)
[2020-02-20] MEDS: IPRATROPIUM BROMIDE 0.5 MG/2.5 ML NEBU NEB SCH ×4 (01:13→19:16)
[2020-02-20] MEDS: ALBUTEROL SULFATE 2.5 MG/3 ML NEBU NEB SCH ×4 (01:14→19:16)
[2020-02-20] MEDS: POLYVINYL ALCOHOL OPHT DROPS 15 ML BOTTLE EACHEYE SCH ×6 (01:24→21:39)
[2020-02-20] MEDS: CARBIDOPA/LEVODOPA 25-100MG TABLET GT SCH ×3 (06:05→21:41)
[2020-02-20] MEDS: [UNRECOGNIZED DRUG - OTHER] GT SCH (06:05)
[2020-02-20] MEDS: LEVOTHYROXINE SODIUM 50 MCG TABLET GT SCH (06:05)
[2020-02-20] MEDS: FAMOTIDINE 20 MG TABLET GT SCH (06:37)
[2020-02-20 07:33] VITALS: BP 122/67
[2020-02-20] MEDS: HYDROGEN PEROXIDE 3% 118 ML BOTTLE TP SCH ×2 (09:00→21:10)
[2020-02-20] MEDS: CALCIUM CARB/VITAMIN D 600-400 MG TABLET GT SCH ×2 (09:01→21:40)
[2020-02-20] MEDS: [UNRECOGNIZED DRUG - OTHER] GT SCH (09:01)
[2020-02-20] MEDS: COD LIVER OIL/ZINC OXIDE OINT 113 GM TUBE TP SCH ×2 (09:03→21:40)
[2020-02-20] MEDS: TRIAMCINOLONE ACET 0.1% CREAM 15 GM TUBE TP SCH ×2 (09:03→21:41)
[2020-02-20] MEDS: NYSTATIN CREAM 30 GM TUBE TOP SCH ×2 (09:03→21:40)
[2020-02-20] MEDS: ENOXAPARIN SODIUM 40 MG/0.4 ML DISP.SYRIN SQ SCH (09:03)
[2020-02-20] MEDS: OSMOLITE 1.2 CAL 1,000 ML LIQUID GT PRN (12:12)
[2020-02-20 20:09] VITALS: BP 125/63
[2020-02-20] MEDS: MINERAL OIL/PETROLAT OPHT OINT 3.5 GM TUBE EACHEYE SCH (21:39)
[2020-02-20] MEDS: [UNRECOGNIZED DRUG - OTHER] GT SCH (21:40)
[2020-02-20] MEDS: PROTEIN SUPPLEMENT (PROSTAT) 30 ML LIQUID GT SCH (21:40)
[2020-02-21] MEDS: ALBUTEROL SULFATE 2.5 MG/3 ML NEBU NEB SCH ×4 (00:30→19:35)
[2020-02-21] MEDS: IPRATROPIUM BROMIDE 0.5 MG/2.5 ML NEBU NEB SCH ×4 (00:30→19:35)
[2020-02-21] MEDS: POLYVINYL ALCOHOL OPHT DROPS 15 ML BOTTLE EACHEYE SCH ×6 (01:42→21:10)
[2020-02-21] MEDS: [UNRECOGNIZED DRUG - OTHER] GT SCH (05:14)
[2020-02-21] MEDS: LEVOTHYROXINE SODIUM 50 MCG TABLET GT SCH (05:14)
[2020-02-21] MEDS: OSMOLITE 1.2 CAL 1,000 ML LIQUID GT PRN ×2 (05:14→05:31)
[2020-02-21] MEDS: CARBIDOPA/LEVODOPA 25-100MG TABLET GT SCH ×3 (05:14→21:13)
[2020-02-21] MEDS: FAMOTIDINE 20 MG TABLET GT SCH (05:31)
[2020-02-21 07:35] VITALS: BP 148/59
[2020-02-21] MEDS: NYSTATIN CREAM 30 GM TUBE TOP SCH ×2 (08:58→21:12)
[2020-02-21] MEDS: TRIAMCINOLONE ACET 0.1% CREAM 15 GM TUBE TP SCH ×2 (08:58→21:13)
[2020-02-21] MEDS: CALCIUM CARB/VITAMIN D 600-400 MG TABLET GT SCH ×2 (08:58→21:08)
[2020-02-21] MEDS: [UNRECOGNIZED DRUG - OTHER] GT SCH (08:58)
[2020-02-21] MEDS: COD LIVER OIL/ZINC OXIDE OINT 113 GM TUBE TP SCH ×2 (08:58→21:13)
[2020-02-21] MEDS: ENOXAPARIN SODIUM 40 MG/0.4 ML DISP.SYRIN SQ SCH (08:59)
[2020-02-21] MEDS: HYDROGEN PEROXIDE 3% 118 ML BOTTLE TP SCH ×2 (09:11→21:30)
--- NOTE | 2020-02-21 16:43 | NUR ---
Adalberto notified latest result for covid19 test is negative, left message to daughter Kimberlee this morning to call back regarding covid19 test result.
[2020-02-21 20:24] VITALS: BP 136/60
[2020-02-21] MEDS: [UNRECOGNIZED DRUG - OTHER] GT SCH (21:10)
[2020-02-21] MEDS: MINERAL OIL/PETROLAT OPHT OINT 3.5 GM TUBE EACHEYE SCH (21:10)
[2020-02-21] MEDS: PROTEIN SUPPLEMENT (PROSTAT) 30 ML LIQUID GT SCH (21:12)
[2020-02-22] MEDS: OSMOLITE 1.2 CAL 1,000 ML LIQUID GT PRN (01:23)
[2020-02-22] MEDS: POLYVINYL ALCOHOL OPHT DROPS 15 ML BOTTLE EACHEYE SCH ×6 (01:23→20:13)
[2020-02-22] MEDS: ALBUTEROL SULFATE 2.5 MG/3 ML NEBU NEB SCH ×4 (01:37→19:10)
[2020-02-22] MEDS: IPRATROPIUM BROMIDE 0.5 MG/2.5 ML NEBU NEB SCH ×4 (01:37→19:10)
[2020-02-22] MEDS: LEVOTHYROXINE SODIUM 50 MCG TABLET GT SCH (05:49)
[2020-02-22] MEDS: [UNRECOGNIZED DRUG - OTHER] GT SCH (05:49)
[2020-02-22] MEDS: CARBIDOPA/LEVODOPA 25-100MG TABLET GT SCH ×3 (05:49→22:00)
[2020-02-22] MEDS: FAMOTIDINE 20 MG TABLET GT SCH (05:49)
[2020-02-22 07:32] VITALS: BP 117/54
[2020-02-22] MEDS: HYDROGEN PEROXIDE 3% 118 ML BOTTLE TP SCH ×2 (07:35→21:00)
[2020-02-22] MEDS: CALCIUM CARB/VITAMIN D 600-400 MG TABLET GT SCH ×2 (09:00→20:14)
[2020-02-22] MEDS: COD LIVER OIL/ZINC OXIDE OINT 113 GM TUBE TP SCH ×2 (09:00→20:15)
[2020-02-22] MEDS: [UNRECOGNIZED DRUG - OTHER] GT SCH (09:00)
[2020-02-22] MEDS: NYSTATIN CREAM 30 GM TUBE TOP SCH ×2 (09:00→20:15)
[2020-02-22] MEDS: TRIAMCINOLONE ACET 0.1% CREAM 15 GM TUBE TP SCH ×2 (09:00→20:15)
[2020-02-22] MEDS: ENOXAPARIN SODIUM 40 MG/0.4 ML DISP.SYRIN SQ SCH (09:00)
--- NOTE | 2020-02-22 13:00 | NUR ---
Seen and examined by Josi Rodriguez,no new orders noted.
[2020-02-22 20:00] VITALS: BP 111/64
[2020-02-22] MEDS: MINERAL OIL/PETROLAT OPHT OINT 3.5 GM TUBE EACHEYE SCH (20:14)
[2020-02-22] MEDS: PROTEIN SUPPLEMENT (PROSTAT) 30 ML LIQUID GT SCH (20:14)
[2020-02-22] MEDS: [UNRECOGNIZED DRUG - OTHER] GT SCH (20:14)
[2020-02-23] MEDS: IPRATROPIUM BROMIDE 0.5 MG/2.5 ML NEBU NEB SCH ×4 (00:33→19:22)
[2020-02-23] MEDS: ALBUTEROL SULFATE 2.5 MG/3 ML NEBU NEB SCH ×4 (00:33→19:22)
[2020-02-23] MEDS: POLYVINYL ALCOHOL OPHT DROPS 15 ML BOTTLE EACHEYE SCH ×6 (01:39→20:49)
[2020-02-23] MEDS: OSMOLITE 1.2 CAL 1,000 ML LIQUID GT PRN (01:40)
[2020-02-23] MEDS: [UNRECOGNIZED DRUG - OTHER] GT SCH (05:49)
[2020-02-23] MEDS: ALENDRONATE GT SCH (05:49)
[2020-02-23] MEDS: LEVOTHYROXINE SODIUM 50 MCG TABLET GT SCH (05:50)
[2020-02-23] MEDS: CARBIDOPA/LEVODOPA 25-100MG TABLET GT SCH ×3 (05:50→22:18)
[2020-02-23] MEDS: FAMOTIDINE 20 MG TABLET GT SCH (05:50)
[2020-02-23 07:36] VITALS: BP 124/61
[2020-02-23] MEDS: CALCIUM CARB/VITAMIN D 600-400 MG TABLET GT SCH ×2 (09:00→20:49)
[2020-02-23] MEDS: NYSTATIN CREAM 30 GM TUBE TOP SCH ×2 (09:00→20:50)
[2020-02-23] MEDS: TRIAMCINOLONE ACET 0.1% CREAM 15 GM TUBE TP SCH ×2 (09:00→20:50)
[2020-02-23] MEDS: [UNRECOGNIZED DRUG - OTHER] GT SCH (09:00)
[2020-02-23] MEDS: ENOXAPARIN SODIUM 40 MG/0.4 ML DISP.SYRIN SQ SCH (09:00)
[2020-02-23] MEDS: COD LIVER OIL/ZINC OXIDE OINT 113 GM TUBE TP SCH ×2 (09:00→20:50)
[2020-02-23] MEDS: HYDROGEN PEROXIDE 3% 118 ML BOTTLE TP SCH ×2 (09:32→21:23)
[2020-02-23 20:00] VITALS: BP 122/62
[2020-02-23] MEDS: PROTEIN SUPPLEMENT (PROSTAT) 30 ML LIQUID GT SCH (20:49)
[2020-02-23] MEDS: MINERAL OIL/PETROLAT OPHT OINT 3.5 GM TUBE EACHEYE SCH (20:49)
[2020-02-23] MEDS: [UNRECOGNIZED DRUG - OTHER] GT SCH (20:49)
[2020-02-24] MEDS: ALBUTEROL SULFATE 2.5 MG/3 ML NEBU NEB SCH ×4 (00:34→19:10)
[2020-02-24] MEDS: IPRATROPIUM BROMIDE 0.5 MG/2.5 ML NEBU NEB SCH ×4 (00:34→19:10)
[2020-02-24] MEDS: POLYVINYL ALCOHOL OPHT DROPS 15 ML BOTTLE EACHEYE SCH ×6 (00:52→20:29)
[2020-02-24] MEDS: OSMOLITE 1.2 CAL 1,000 ML LIQUID GT PRN ×2 (01:17→23:00)
[2020-02-24] MEDS: [UNRECOGNIZED DRUG - OTHER] GT SCH (05:24)
[2020-02-24] MEDS: CARBIDOPA/LEVODOPA 25-100MG TABLET GT SCH ×3 (05:24→22:28)
[2020-02-24] MEDS: LEVOTHYROXINE SODIUM 50 MCG TABLET GT SCH (05:24)
[2020-02-24] MEDS: FAMOTIDINE 20 MG TABLET GT SCH (06:30)
[2020-02-24 07:52] VITALS: BP 117/74
[2020-02-24] MEDS: CALCIUM CARB/VITAMIN D 600-400 MG TABLET GT SCH ×2 (08:32→20:29)
[2020-02-24] MEDS: [UNRECOGNIZED DRUG - OTHER] GT SCH (08:33)
[2020-02-24] MEDS: ENOXAPARIN SODIUM 40 MG/0.4 ML DISP.SYRIN SQ SCH (08:33)
[2020-02-24] MEDS: NYSTATIN CREAM 30 GM TUBE TOP SCH ×2 (08:34→20:30)
[2020-02-24] MEDS: COD LIVER OIL/ZINC OXIDE OINT 113 GM TUBE TP SCH ×2 (08:34→20:30)
[2020-02-24] MEDS: TRIAMCINOLONE ACET 0.1% CREAM 15 GM TUBE TP SCH ×2 (08:34→20:30)
[2020-02-24] MEDS: HYDROGEN PEROXIDE 3% 118 ML BOTTLE TP SCH ×2 (09:00→21:37)
--- NOTE | 2020-02-24 13:04 | NUR ---
SPOKE WITH RESPONSIBLE LIBERTARIAN, MAURI BARON, REGARDING COVID-19 VACCINE ADMINISTRATION. VERBAL CONSENT GIVEN BY MAURI BARON FOR PATIENT TO RECEIVE COVID-19 VACCINE.
[2020-02-24 20:00] VITALS: BP 131/60
[2020-02-24] MEDS: MINERAL OIL/PETROLAT OPHT OINT 3.5 GM TUBE EACHEYE SCH (20:29)
[2020-02-24] MEDS: PROTEIN SUPPLEMENT (PROSTAT) 30 ML LIQUID GT SCH (20:30)
[2020-02-24] MEDS: [UNRECOGNIZED DRUG - OTHER] GT SCH (20:30)
[2020-02-25] MEDS: IPRATROPIUM BROMIDE 0.5 MG/2.5 ML NEBU NEB SCH ×4 (00:40→19:11)
[2020-02-25] MEDS: ALBUTEROL SULFATE 2.5 MG/3 ML NEBU NEB SCH ×4 (00:40→19:11)
[2020-02-25] MEDS: POLYVINYL ALCOHOL OPHT DROPS 15 ML BOTTLE EACHEYE SCH ×6 (01:06→21:56)
[2020-02-25] MEDS: [UNRECOGNIZED DRUG - OTHER] GT SCH (05:04)
[2020-02-25] MEDS: CARBIDOPA/LEVODOPA 25-100MG TABLET GT SCH ×3 (05:04→21:59)
[2020-02-25] MEDS: LEVOTHYROXINE SODIUM 50 MCG TABLET GT SCH (05:04)
[2020-02-25] MEDS: FAMOTIDINE 20 MG TABLET GT SCH (05:57)
[2020-02-25 08:09] VITALS: BP 133/60
[2020-02-25] MEDS: CALCIUM CARB/VITAMIN D 600-400 MG TABLET GT SCH ×2 (08:58→21:56)
[2020-02-25] MEDS: [UNRECOGNIZED DRUG - OTHER] GT SCH (08:58)
[2020-02-25] MEDS: ENOXAPARIN SODIUM 40 MG/0.4 ML DISP.SYRIN SQ SCH (08:59)
[2020-02-25] MEDS: NYSTATIN CREAM 30 GM TUBE TOP SCH ×2 (08:59→21:58)
[2020-02-25] MEDS: TRIAMCINOLONE ACET 0.1% CREAM 15 GM TUBE TP SCH ×2 (08:59→21:58)
[2020-02-25] MEDS: COD LIVER OIL/ZINC OXIDE OINT 113 GM TUBE TP SCH ×2 (08:59→21:58)
[2020-02-25] MEDS: HYDROGEN PEROXIDE 3% 118 ML BOTTLE TP SCH ×2 (09:00→21:35)
[2020-02-25] MEDS: OSMOLITE 1.2 CAL 1,000 ML LIQUID GT PRN (18:49)
[2020-02-25 20:00] VITALS: BP 138/63
[2020-02-25] MEDS: MINERAL OIL/PETROLAT OPHT OINT 3.5 GM TUBE EACHEYE SCH (21:56)
[2020-02-25] MEDS: PROTEIN SUPPLEMENT (PROSTAT) 30 ML LIQUID GT SCH (21:57)
[2020-02-25] MEDS: [UNRECOGNIZED DRUG - OTHER] GT SCH (21:57)
[2020-02-26] MEDS: POLYVINYL ALCOHOL OPHT DROPS 15 ML BOTTLE EACHEYE SCH ×6 (00:42→21:00)
[2020-02-26] MEDS: ALBUTEROL SULFATE 2.5 MG/3 ML NEBU NEB SCH ×4 (00:52→18:07)
[2020-02-26] MEDS: IPRATROPIUM BROMIDE 0.5 MG/2.5 ML NEBU NEB SCH ×4 (00:52→18:07)
[2020-02-26] MEDS: FAMOTIDINE 20 MG TABLET GT SCH (05:41)
[2020-02-26] MEDS: CARBIDOPA/LEVODOPA 25-100MG TABLET GT SCH ×3 (05:41→22:03)
[2020-02-26] MEDS: LEVOTHYROXINE SODIUM 50 MCG TABLET GT SCH (05:41)
[2020-02-26] MEDS: [UNRECOGNIZED DRUG - OTHER] GT SCH (05:41)
[2020-02-26] MEDS: HYDROGEN PEROXIDE 3% 118 ML BOTTLE TP SCH ×2 (07:35→21:10)
[2020-02-26 08:05] VITALS: BP 143/63
[2020-02-26] MEDS: [UNRECOGNIZED DRUG - OTHER] GT SCH (08:38)
[2020-02-26] MEDS: CALCIUM CARB/VITAMIN D 600-400 MG TABLET GT SCH ×2 (08:38→21:00)
[2020-02-26] MEDS: TRIAMCINOLONE ACET 0.1% CREAM 15 GM TUBE TP SCH ×2 (08:39→21:00)
[2020-02-26] MEDS: NYSTATIN CREAM 30 GM TUBE TOP SCH ×2 (08:39→21:00)
[2020-02-26] MEDS: COD LIVER OIL/ZINC OXIDE OINT 113 GM TUBE TP SCH ×2 (08:39→21:00)
[2020-02-26] MEDS: ENOXAPARIN SODIUM 40 MG/0.4 ML DISP.SYRIN SQ SCH (08:43)
[2020-02-26] MEDS: MINERAL OIL/PETROLAT OPHT OINT 3.5 GM TUBE EACHEYE SCH (21:00)
[2020-02-26] MEDS: [UNRECOGNIZED DRUG - OTHER] GT SCH (21:00)
[2020-02-26] MEDS: PROTEIN SUPPLEMENT (PROSTAT) 30 ML LIQUID GT SCH (21:00)
[2020-02-26 22:04] VITALS: BP 127/58
[2020-02-27] MEDS: IPRATROPIUM BROMIDE 0.5 MG/2.5 ML NEBU NEB SCH ×4 (01:05→18:51)
[2020-02-27] MEDS: ALBUTEROL SULFATE 2.5 MG/3 ML NEBU NEB SCH ×4 (01:05→18:51)
[2020-02-27] MEDS: POLYVINYL ALCOHOL OPHT DROPS 15 ML BOTTLE EACHEYE SCH ×6 (01:10→21:19)
[2020-02-27] MEDS: [UNRECOGNIZED DRUG - OTHER] GT SCH (05:03)
[2020-02-27] MEDS: CARBIDOPA/LEVODOPA 25-100MG TABLET GT SCH ×3 (05:03→21:20)
[2020-02-27] MEDS: LEVOTHYROXINE SODIUM 50 MCG TABLET GT SCH (05:03)
[2020-02-27] MEDS: FAMOTIDINE 20 MG TABLET GT SCH (05:56)
[2020-02-27] MEDS: HYDROGEN PEROXIDE 3% 118 ML BOTTLE TP SCH ×2 (07:42→21:36)
[2020-02-27 07:47] VITALS: BP 138/61
[2020-02-27] MEDS: [UNRECOGNIZED DRUG - OTHER] GT SCH (09:07)
[2020-02-27] MEDS: CALCIUM CARB/VITAMIN D 600-400 MG TABLET GT SCH ×2 (09:07→21:19)
[2020-02-27] MEDS: TRIAMCINOLONE ACET 0.1% CREAM 15 GM TUBE TP SCH ×2 (09:08→21:00)
[2020-02-27] MEDS: COD LIVER OIL/ZINC OXIDE OINT 113 GM TUBE TP SCH ×2 (09:08→21:20)
[2020-02-27] MEDS: NYSTATIN CREAM 30 GM TUBE TOP SCH ×2 (09:08→21:20)
[2020-02-27] MEDS: ENOXAPARIN SODIUM 40 MG/0.4 ML DISP.SYRIN SQ SCH (09:13)
[2020-02-27] MEDS: OSMOLITE 1.2 CAL 1,000 ML LIQUID GT PRN (16:02)
--- NOTE | 2020-02-27 16:04 | NUR ---
PT'S DTR. GHADA WAS AWARE OG NEGATIVE COVID19 TEST,AND SHE ASKED CH. NURSE ABOUT MORE INFORMATION FOR COVID19 VACCINE DUE TO SHE IS INTERESTED IN GETTING IT FOR HERSELF AND SHE WAS DIRECTED TO [facility] .
[2020-02-27] MEDS: MINERAL OIL/PETROLAT OPHT OINT 3.5 GM TUBE EACHEYE SCH (21:19)
[2020-02-27] MEDS: PROTEIN SUPPLEMENT (PROSTAT) 30 ML LIQUID GT SCH (21:19)
[2020-02-27] MEDS: [UNRECOGNIZED DRUG - OTHER] GT SCH (21:19)
[2020-02-27 22:30] VITALS: BP 130/61
[2020-02-28] MEDS: IPRATROPIUM BROMIDE 0.5 MG/2.5 ML NEBU NEB SCH ×4 (00:56→19:34)
[2020-02-28] MEDS: ALBUTEROL SULFATE 2.5 MG/3 ML NEBU NEB SCH ×4 (00:56→19:35)
[2020-02-28] MEDS: POLYVINYL ALCOHOL OPHT DROPS 15 ML BOTTLE EACHEYE SCH ×6 (01:15→21:06)
[2020-02-28] MEDS: CARBIDOPA/LEVODOPA 25-100MG TABLET GT SCH ×3 (05:50→21:07)
[2020-02-28] MEDS: FAMOTIDINE 20 MG TABLET GT SCH (05:50)
[2020-02-28] MEDS: LEVOTHYROXINE SODIUM 50 MCG TABLET GT SCH (05:50)
[2020-02-28] MEDS: [UNRECOGNIZED DRUG - OTHER] GT SCH (05:50)
[2020-02-28 07:34] VITALS: BP 149/57
[2020-02-28] MEDS: [UNRECOGNIZED DRUG - OTHER] GT SCH (09:07)
[2020-02-28] MEDS: CALCIUM CARB/VITAMIN D 600-400 MG TABLET GT SCH ×2 (09:07→21:07)
[2020-02-28] MEDS: ENOXAPARIN SODIUM 40 MG/0.4 ML DISP.SYRIN SQ SCH (09:08)
[2020-02-28] MEDS: TRIAMCINOLONE ACET 0.1% CREAM 15 GM TUBE TP SCH ×2 (09:08→21:07)
[2020-02-28] MEDS: COD LIVER OIL/ZINC OXIDE OINT 113 GM TUBE TP SCH ×2 (09:08→21:07)
[2020-02-28] MEDS: NYSTATIN CREAM 30 GM TUBE TOP SCH ×2 (09:08→21:07)
[2020-02-28] MEDS: HYDROGEN PEROXIDE 3% 118 ML BOTTLE TP SCH ×2 (09:58→21:20)
--- NOTE | 2020-02-28 13:03 | NUR ---
SEEN BY DANNIE Bailey AND WITH NNO.
[2020-02-28] MEDS: OSMOLITE 1.2 CAL 1,000 ML LIQUID GT PRN (15:30)
[2020-02-28 20:50] VITALS: BP 126/61
[2020-02-28] MEDS: MINERAL OIL/PETROLAT OPHT OINT 3.5 GM TUBE EACHEYE SCH (21:06)
[2020-02-28] MEDS: [UNRECOGNIZED DRUG - OTHER] GT SCH (21:07)
[2020-02-28] MEDS: PROTEIN SUPPLEMENT (PROSTAT) 30 ML LIQUID GT SCH (21:07)
[2020-02-29] MEDS: IPRATROPIUM BROMIDE 0.5 MG/2.5 ML NEBU NEB SCH ×4 (01:05→18:51)
[2020-02-29] MEDS: ALBUTEROL SULFATE 2.5 MG/3 ML NEBU NEB SCH ×4 (01:05→18:51)
[2020-02-29] MEDS: POLYVINYL ALCOHOL OPHT DROPS 15 ML BOTTLE EACHEYE SCH ×6 (01:16→20:46)
[2020-02-29] MEDS: [UNRECOGNIZED DRUG - OTHER] GT SCH (05:52)
[2020-02-29] MEDS: LEVOTHYROXINE SODIUM 50 MCG TABLET GT SCH (05:52)
[2020-02-29] MEDS: FAMOTIDINE 20 MG TABLET GT SCH (05:52)
[2020-02-29] MEDS: CARBIDOPA/LEVODOPA 25-100MG TABLET GT SCH ×3 (05:52→21:39)
[2020-02-29] MEDS: HYDROGEN PEROXIDE 3% 118 ML BOTTLE TP SCH ×2 (07:25→21:47)
[2020-02-29 07:35] VITALS: BP 135/58
[2020-02-29] MEDS: [UNRECOGNIZED DRUG - OTHER] GT SCH (08:46)
[2020-02-29] MEDS: CALCIUM CARB/VITAMIN D 600-400 MG TABLET GT SCH ×2 (08:46→20:47)
[2020-02-29] MEDS: COD LIVER OIL/ZINC OXIDE OINT 113 GM TUBE TP SCH ×2 (08:48→20:48)
[2020-02-29] MEDS: NYSTATIN CREAM 30 GM TUBE TOP SCH ×2 (08:48→20:48)
[2020-02-29] MEDS: TRIAMCINOLONE ACET 0.1% CREAM 15 GM TUBE TP SCH ×2 (08:48→21:39)
[2020-02-29] MEDS: ENOXAPARIN SODIUM 40 MG/0.4 ML DISP.SYRIN SQ SCH (08:48)
[2020-02-29] MEDS: diphenhydrAMINE 25 MG/10 ML UDC GT PRN (08:49)
[2020-02-29] MEDS: OSMOLITE 1.2 CAL 1,000 ML LIQUID GT PRN (11:22)
[2020-02-29] MEDS: LOPERAMIDE HCL 2 MG/15 ML GT PRN (11:22)
--- NOTE | 2020-02-29 19:48 | NUR ---
New orders to Give COVID vaccine x 1 carried out.
[2020-02-29 20:33] VITALS: BP 130/66
[2020-02-29] MEDS: MINERAL OIL/PETROLAT OPHT OINT 3.5 GM TUBE EACHEYE SCH (20:47)
[2020-02-29] MEDS: [UNRECOGNIZED DRUG - OTHER] GT SCH (20:47)
[2020-02-29] MEDS: PROTEIN SUPPLEMENT (PROSTAT) 30 ML LIQUID GT SCH (20:47)
[2020-03-01] MEDS: IPRATROPIUM BROMIDE 0.5 MG/2.5 ML NEBU NEB SCH ×4 (00:53→19:01)
[2020-03-01] MEDS: ALBUTEROL SULFATE 2.5 MG/3 ML NEBU NEB SCH ×4 (00:53→19:01)
[2020-03-01] MEDS: POLYVINYL ALCOHOL OPHT DROPS 15 ML BOTTLE EACHEYE SCH ×6 (01:31→21:33)
[2020-03-01] MEDS: ALENDRONATE GT SCH (05:09)
[2020-03-01] MEDS: CARBIDOPA/LEVODOPA 25-100MG TABLET GT SCH ×3 (05:09→21:37)
[2020-03-01] MEDS: [UNRECOGNIZED DRUG - OTHER] GT SCH (05:09)
[2020-03-01] MEDS: LEVOTHYROXINE SODIUM 50 MCG TABLET GT SCH (05:09)
[2020-03-01] MEDS: FAMOTIDINE 20 MG TABLET GT SCH (06:00)
[2020-03-01] MEDS: OSMOLITE 1.2 CAL 1,000 ML LIQUID GT PRN (07:16)
[2020-03-01 07:33] VITALS: BP 138/60
[2020-03-01] MEDS: HYDROGEN PEROXIDE 3% 118 ML BOTTLE TP SCH ×2 (07:35→21:27)
[2020-03-01] MEDS: CALCIUM CARB/VITAMIN D 600-400 MG TABLET GT SCH ×2 (09:39→21:36)
[2020-03-01] MEDS: [UNRECOGNIZED DRUG - OTHER] GT SCH (09:39)
[2020-03-01] MEDS: ENOXAPARIN SODIUM 40 MG/0.4 ML DISP.SYRIN SQ SCH (09:42)
[2020-03-01] MEDS: NYSTATIN CREAM 30 GM TUBE TOP SCH ×2 (09:42→21:37)
[2020-03-01] MEDS: COD LIVER OIL/ZINC OXIDE OINT 113 GM TUBE TP SCH ×2 (09:43→21:37)
[2020-03-01] MEDS: TRIAMCINOLONE ACET 0.1% CREAM 15 GM TUBE TP SCH ×2 (09:43→21:37)
--- NOTE | 2020-03-01 18:09 | NUR ---
PT. HAD COVID 19 VACCINE ON RT. DELTOID AND HAD NO A/R ,PT'S DTR.GHADA AWARE,WILL CONT. MONITORING.
[2020-03-01 20:37] VITALS: BP 124/57
[2020-03-01] MEDS: MINERAL OIL/PETROLAT OPHT OINT 3.5 GM TUBE EACHEYE SCH (21:34)
[2020-03-01] MEDS: [UNRECOGNIZED DRUG - OTHER] GT SCH (21:36)
[2020-03-01] MEDS: PROTEIN SUPPLEMENT (PROSTAT) 30 ML LIQUID GT SCH (21:36)
[~2020-03-02] VITALS: Ht 162.6 cm; Wt 56.2 kg
[2020-03-02] MEDS: POLYVINYL ALCOHOL OPHT DROPS 15 ML BOTTLE EACHEYE SCH ×6 (01:00→21:00)
[2020-03-02] MEDS: ALBUTEROL SULFATE 2.5 MG/3 ML NEBU NEB SCH ×4 (01:28→18:04)
[2020-03-02] MEDS: IPRATROPIUM BROMIDE 0.5 MG/2.5 ML NEBU NEB SCH ×4 (01:28→18:04)
[2020-03-02] MEDS: OSMOLITE 1.2 CAL 1,000 ML LIQUID GT PRN (04:41)
[2020-03-02] MEDS: FAMOTIDINE 20 MG TABLET GT SCH (06:08)
[2020-03-02] MEDS: LEVOTHYROXINE SODIUM 50 MCG TABLET GT SCH (06:08)
[2020-03-02] MEDS: CARBIDOPA/LEVODOPA 25-100MG TABLET GT SCH ×3 (06:08→22:16)
[2020-03-02] MEDS: [UNRECOGNIZED DRUG - OTHER] GT SCH (06:08)
[2020-03-02 08:33] VITALS: BP 130/45
[2020-03-02] MEDS: CALCIUM CARB/VITAMIN D 600-400 MG TABLET GT SCH ×2 (08:53→21:00)
[2020-03-02] MEDS: [UNRECOGNIZED DRUG - OTHER] GT SCH (08:56)
[2020-03-02] MEDS: COD LIVER OIL/ZINC OXIDE OINT 113 GM TUBE TP SCH ×2 (08:59→21:00)
[2020-03-02] MEDS: ENOXAPARIN SODIUM 40 MG/0.4 ML DISP.SYRIN SQ SCH (08:59)
[2020-03-02] MEDS: NYSTATIN CREAM 30 GM TUBE TOP SCH ×2 (08:59→21:00)
[2020-03-02] MEDS: TRIAMCINOLONE ACET 0.1% CREAM 15 GM TUBE TP SCH ×2 (08:59→21:00)
[2020-03-02] MEDS: HYDROGEN PEROXIDE 3% 118 ML BOTTLE TP SCH ×2 (09:22→21:00)
--- NOTE | 2020-03-02 18:32 | NUR ---
No a/r noted from covid19 vaccine.
[2020-03-02] MEDS: [UNRECOGNIZED DRUG - OTHER] GT SCH (21:00)
[2020-03-02] MEDS: PROTEIN SUPPLEMENT (PROSTAT) 30 ML LIQUID GT SCH (21:00)
[2020-03-02] MEDS: MINERAL OIL/PETROLAT OPHT OINT 3.5 GM TUBE EACHEYE SCH (21:00)
[2020-03-02 23:01] VITALS: BP 125/60
--- NOTE | 2020-03-02 23:31 | NUR ---
Patient is afebrile, no signs of any adverse reactions noted from the COVID-19 vaccine.
[~2020-03-02 23:59] MED LIST changes: +ACETAMINOPHEN 650 MG/20 ML UDC- SA PATIENTS-FEVER ONLY GT PRN; +ALBUTEROL SULFATE 2.5 MG/3 ML NEBU NEB PRN; +COD LIVER OIL/ZINC OXIDE OINT 113 GM TUBE TP PRN; +COVID-19 VACC,MRNA(MODERNA)/PF 100 MCG/0.5 ML VIAL IM ONE; +HYDROGEN PEROXIDE 3% 118 ML BOTTLE TP PRN; +INFLUENZA VACCINE 2020-2021 0.5 ML DISP.SYRIN IM ONE; +IPRATROPIUM BROMIDE 0.5 MG/2.5 ML NEBU NEB PRN; +NYSTATIN CREAM 30 GM TUBE TP PRN; +NYSTATIN/TRIAMCINOLONE CREAM 15 GM TUBE TOP SCH; +PATIENT MAY USE OWN MED- MD OK GT PRN; +POLYVINYL ALCOHOL OPHT DROPS 15 ML BOTTLE EACHEYE PRN; +TRIAMCINOLONE ACET 0.1% CREAM 15 GM TUBE TP PRN; +[UNRECOGNIZED DRUG - OTHER] GT SCH
[2020-03-03] MEDS: IPRATROPIUM BROMIDE 0.5 MG/2.5 ML NEBU NEB SCH ×4 (00:07→19:30)
[2020-03-03] MEDS: ALBUTEROL SULFATE 2.5 MG/3 ML NEBU NEB SCH ×4 (00:07→19:30)
[2020-03-03] MEDS: POLYVINYL ALCOHOL OPHT DROPS 15 ML BOTTLE EACHEYE SCH ×6 (01:00→21:17)
[2020-03-03] MEDS: FAMOTIDINE 20 MG TABLET GT SCH (06:19)
[2020-03-03] MEDS: LEVOTHYROXINE SODIUM 50 MCG TABLET GT SCH (06:19)
[2020-03-03] MEDS: CARBIDOPA/LEVODOPA 25-100MG TABLET GT SCH ×3 (06:19→21:19)
[2020-03-03] MEDS: [UNRECOGNIZED DRUG - OTHER] GT SCH (06:19)
[2020-03-03] MEDS: HYDROGEN PEROXIDE 3% 118 ML BOTTLE TP SCH ×2 (07:31→21:30)
[2020-03-03 07:49] VITALS: BP 130/65
[2020-03-03] MEDS: COD LIVER OIL/ZINC OXIDE OINT 113 GM TUBE TP SCH ×2 (08:34→21:19)
[2020-03-03] MEDS: CALCIUM CARB/VITAMIN D 600-400 MG TABLET GT SCH ×2 (08:34→21:18)
[2020-03-03] MEDS: ENOXAPARIN SODIUM 40 MG/0.4 ML DISP.SYRIN SQ SCH (08:34)
[2020-03-03] MEDS: [UNRECOGNIZED DRUG - OTHER] GT SCH (08:34)
[2020-03-03] MEDS: TRIAMCINOLONE ACET 0.1% CREAM 15 GM TUBE TP SCH ×2 (08:34→21:19)
[2020-03-03] MEDS: NYSTATIN CREAM 30 GM TUBE TOP SCH ×2 (08:34→21:19)
--- NOTE | 2020-03-03 17:52 | NUR ---
No a/r noted from covid19 vaccine.
--- NOTE | 2020-03-03 19:00 | NUR ---
Seen by Dr. Yu with no new orders.
[2020-03-03 20:30] VITALS: BP 132/60
[2020-03-03] MEDS: MINERAL OIL/PETROLAT OPHT OINT 3.5 GM TUBE EACHEYE SCH (21:17)
[2020-03-03] MEDS: PROTEIN SUPPLEMENT (PROSTAT) 30 ML LIQUID GT SCH (21:18)
[2020-03-03] MEDS: [UNRECOGNIZED DRUG - OTHER] GT SCH (21:18)
--- NOTE | 2020-03-03 23:09 | NUR ---
Patient is afebrile, no signs of adverse effects from Covid-19 vaccine.
[2020-03-04] MEDS: ALBUTEROL SULFATE 2.5 MG/3 ML NEBU NEB SCH ×4 (01:08→19:20)
[2020-03-04] MEDS: IPRATROPIUM BROMIDE 0.5 MG/2.5 ML NEBU NEB SCH ×4 (01:08→19:20)
[2020-03-04] MEDS: POLYVINYL ALCOHOL OPHT DROPS 15 ML BOTTLE EACHEYE SCH ×6 (01:13→20:24)
[2020-03-04] MEDS: CARBIDOPA/LEVODOPA 25-100MG TABLET GT SCH ×3 (05:44→22:50)
[2020-03-04] MEDS: OSMOLITE 1.2 CAL 1,000 ML LIQUID GT PRN ×2 (05:44→19:11)
[2020-03-04] MEDS: [UNRECOGNIZED DRUG - OTHER] GT SCH (05:44)
[2020-03-04] MEDS: FAMOTIDINE 20 MG TABLET GT SCH (05:44)
[2020-03-04] MEDS: LEVOTHYROXINE SODIUM 50 MCG TABLET GT SCH (05:44)
[2020-03-04 07:43] VITALS: BP 128/61
[2020-03-04] MEDS: COD LIVER OIL/ZINC OXIDE OINT 113 GM TUBE TP SCH ×2 (09:15→20:26)
[2020-03-04] MEDS: ENOXAPARIN SODIUM 40 MG/0.4 ML DISP.SYRIN SQ SCH (09:15)
[2020-03-04] MEDS: NYSTATIN CREAM 30 GM TUBE TOP SCH ×2 (09:15→20:25)
[2020-03-04] MEDS: TRIAMCINOLONE ACET 0.1% CREAM 15 GM TUBE TP SCH ×2 (09:15→20:26)
[2020-03-04] MEDS: CALCIUM CARB/VITAMIN D 600-400 MG TABLET GT SCH ×2 (09:16→20:25)
[2020-03-04] MEDS: [UNRECOGNIZED DRUG - OTHER] GT SCH (09:16)
[2020-03-04] MEDS: HYDROGEN PEROXIDE 3% 118 ML BOTTLE TP SCH ×2 (09:30→20:35)
--- NOTE | 2020-03-04 18:10 | NUR ---
V/S STABLE, NO A/R TO COVID 19 VACCINE NOTED. WILL CONTINUE MONITORING.
[2020-03-04] MEDS: MINERAL OIL/PETROLAT OPHT OINT 3.5 GM TUBE EACHEYE SCH (20:24)
[2020-03-04] MEDS: PROTEIN SUPPLEMENT (PROSTAT) 30 ML LIQUID GT SCH (20:25)
[2020-03-04] MEDS: [UNRECOGNIZED DRUG - OTHER] GT SCH (20:25)
[2020-03-04 22:06] VITALS: BP 117/69
[2020-03-05] MEDS: IPRATROPIUM BROMIDE 0.5 MG/2.5 ML NEBU NEB SCH ×4 (01:02→19:32)
[2020-03-05] MEDS: ALBUTEROL SULFATE 2.5 MG/3 ML NEBU NEB SCH ×4 (01:02→19:32)
[2020-03-05] MEDS: POLYVINYL ALCOHOL OPHT DROPS 15 ML BOTTLE EACHEYE SCH ×6 (01:48→20:54)
[2020-03-05] MEDS: CARBIDOPA/LEVODOPA 25-100MG TABLET GT SCH ×3 (05:30→21:03)
[2020-03-05] MEDS: [UNRECOGNIZED DRUG - OTHER] GT SCH (05:30)
[2020-03-05] MEDS: FAMOTIDINE 20 MG TABLET GT SCH (05:30)
[2020-03-05] MEDS: LEVOTHYROXINE SODIUM 50 MCG TABLET GT SCH (05:30)
[2020-03-05 07:45] VITALS: BP 117/66
[2020-03-05] MEDS: HYDROGEN PEROXIDE 3% 118 ML BOTTLE TP SCH ×2 (09:00→20:39)
[2020-03-05] MEDS: [UNRECOGNIZED DRUG - OTHER] GT SCH (09:42)
[2020-03-05] MEDS: CALCIUM CARB/VITAMIN D 600-400 MG TABLET GT SCH ×2 (09:42→20:54)
[2020-03-05] MEDS: NYSTATIN CREAM 30 GM TUBE TOP SCH ×2 (09:43→20:55)
[2020-03-05] MEDS: ENOXAPARIN SODIUM 40 MG/0.4 ML DISP.SYRIN SQ SCH (09:43)
[2020-03-05] MEDS: COD LIVER OIL/ZINC OXIDE OINT 113 GM TUBE TP SCH ×2 (09:43→20:55)
[2020-03-05] MEDS: TRIAMCINOLONE ACET 0.1% CREAM 15 GM TUBE TP SCH ×2 (09:44→20:55)
[2020-03-05 20:05] VITALS: BP 133/67
[2020-03-05] MEDS: MINERAL OIL/PETROLAT OPHT OINT 3.5 GM TUBE EACHEYE SCH (20:54)
[2020-03-05] MEDS: [UNRECOGNIZED DRUG - OTHER] GT SCH (20:55)
[2020-03-05] MEDS: PROTEIN SUPPLEMENT (PROSTAT) 30 ML LIQUID GT SCH (20:55)
[2020-03-06] MEDS: POLYVINYL ALCOHOL OPHT DROPS 15 ML BOTTLE EACHEYE SCH ×2 (01:00→05:51)
[2020-03-06] MEDS: ALBUTEROL SULFATE 2.5 MG/3 ML NEBU NEB SCH (01:30)
[2020-03-06] MEDS: IPRATROPIUM BROMIDE 0.5 MG/2.5 ML NEBU NEB SCH (01:30)
[2020-03-06] MEDS: [UNRECOGNIZED DRUG - OTHER] GT SCH (05:51)
[2020-03-06] MEDS: FAMOTIDINE 20 MG TABLET GT SCH (05:51)
[2020-03-06] MEDS: CARBIDOPA/LEVODOPA 25-100MG TABLET GT SCH (05:51)
[2020-03-06] MEDS: LEVOTHYROXINE SODIUM 50 MCG TABLET GT SCH (05:51)
== END | disposition still patient (30) | DRG 189 ==
LOC: SA 03-03
PROVIDERS: ADMIT Internal Medicine; ATTEND Internal Medicine
DX: J96.11 Chronic respiratory failure with hypoxia (principal); R53.2 Functional quadriplegia; G93.40 Encephalopathy, unspecified; D68.59 Other primary thrombophilia; G93.1 Anoxic brain damage, not elsewhere classified; K94.23 Gastrostomy malfunction; G20 Parkinson's disease; D45 Polycythemia vera; Z93.0 Tracheostomy status; G93.81 Temporal sclerosis; M06.9 Rheumatoid arthritis, unspecified; E03.9 Hypothyroidism, unspecified; K21.9 Gastro-esophageal reflux disease without esophagitis; D63.8 Anemia in other chronic diseases classified elsewhere; Z86.11 Personal history of tuberculosis; Z90.89 Acquired absence of other organs; Z51.5 Encounter for palliative care; M18.0 Bilateral primary osteoarthritis of first carpometacarpal joints; M65.30 Trigger finger, unspecified finger; E78.1 Pure hyperglyceridemia; E11.9 Type 2 diabetes mellitus without complications; F09 Unspecified mental disorder due to known physiological condition; G89.4 Chronic pain syndrome; I27.20 Pulmonary hypertension, unspecified; I69.398 Other sequelae of cerebral infarction; R13.10 Dysphagia, unspecified; Z86.61 Personal history of infections of the central nervous system; M81.0 Age-related osteoporosis without current pathological fracture; Z11.59 Encounter for screening for other viral diseases
CPT/HCPCS: 36415; 71045; 83735; 84100; 84443; 84480; 85025; 85730; 87086; 90686; 94640; 94664; A4217; A4663; C1758; G0008; J1650; J3590; Q0163; U0003

== ENCOUNTER 2020-03-30 07:35 | Outpatient (CLI) | payer OTHER ==
[~2020-03-30 07:35] MED LIST changes: -ACETAMINOPHEN 650 MG/20 ML UDC- SA PATIENTS-FEVER ONLY GT PRN; -ALBUTEROL SULFATE 2.5 MG/3 ML NEBU NEB PRN; -COD LIVER OIL/ZINC OXIDE OINT 113 GM TUBE TP PRN; -COVID-19 VACC,MRNA(MODERNA)/PF 100 MCG/0.5 ML VIAL IM ONE; -HYDROGEN PEROXIDE 3% 118 ML BOTTLE TP PRN; -INFLUENZA VACCINE 2020-2021 0.5 ML DISP.SYRIN IM ONE; -IPRATROPIUM BROMIDE 0.5 MG/2.5 ML NEBU NEB PRN; -NYSTATIN CREAM 30 GM TUBE TP PRN; -NYSTATIN/TRIAMCINOLONE CREAM 15 GM TUBE TOP SCH; -PATIENT MAY USE OWN MED- MD OK GT PRN; -POLYVINYL ALCOHOL OPHT DROPS 15 ML BOTTLE EACHEYE PRN; -TRIAMCINOLONE ACET 0.1% CREAM 15 GM TUBE TP PRN; -[UNRECOGNIZED DRUG - OTHER] GT SCH
== END 2020-03-30 23:59 | disposition home or self-care (01) ==
LOC: CT 07:35
PROVIDERS: ATTEND Specialist
DX: K80.20 Calculus of gallbladder without cholecystitis without obstruction (principal); N13.2 Hydronephrosis with renal and ureteral calculous obstruction; K76.0 Fatty (change of) liver, not elsewhere classified; I70.0 Atherosclerosis of aorta; M47.816 Spondylosis without myelopathy or radiculopathy, lumbar region; M85.88 Other specified disorders of bone density and structure, other site

== ENCOUNTER 2020-10-24 15:23 | Outpatient (CLI) | payer OTHER ==
[~2020-10-24 15:23] MED LIST changes: +CARB-300 GT; -CARB-93 GT
== END 2020-10-24 23:59 | disposition home or self-care (01) ==
LOC: CT 15:23
PROVIDERS: ATTEND Internal Medicine Pulmonary Disease
DX: M19.022 Primary osteoarthritis, left elbow (principal); R60.0 Localized edema; M79.89 Other specified soft tissue disorders
CPT/HCPCS: 73200

== ENCOUNTER 2021-06-07 07:49 | Outpatient (CLI) | payer OTHER ==
[2021-06-07] MEDS ORDERED: SWABABLE VALVE TRANSFER SET EA MC ONE (10:51)
[2021-06-07] MEDS ORDERED: IOHEXOL 300MG/ML 100 ML INFUS..BTL ONE (10:51)
== END 2021-06-07 23:59 | disposition home or self-care (01) ==
LOC: CT 07:49
PROVIDERS: ATTEND Internal Medicine Pulmonary Disease
DX: N20.0 Calculus of kidney (principal); K80.20 Calculus of gallbladder without cholecystitis without obstruction; R31.9 Hematuria, unspecified; I51.7 Cardiomegaly; J98.11 Atelectasis; N13.30 Unspecified hydronephrosis; M85.88 Other specified disorders of bone density and structure, other site
CPT/HCPCS: 74178; Q9967

== ENCOUNTER 2022-03-03 | Inpatient (IN) | payer OTHER, MEDICAID ==
[~2022-03-03] VITALS: Ht 162.6 cm; Wt 52.2 kg
[2022-03-05] VITALS (8 sets, daily range): TEMP 97.5; O2SAT 98
[2022-03-05] MEDS ORDERED: ALBUTEROL SULFATE 2.5 MG/3 ML NEBU NEB PRN (07:30)
[2022-03-05] MEDS ORDERED: HYDROGEN PEROXIDE 3% 118 ML BOTTLE TP PRN (07:30)
[2022-03-05] MEDS ORDERED: POLYVINYL ALCOHOL OPHT DROPS 15 ML BOTTLE EACHEYE PRN (07:30)
[2022-03-05] MEDS ORDERED: IPRATROPIUM BROMIDE 0.5 MG/2.5 ML NEBU NEB PRN (07:30)
[2022-03-05] MEDS: POLYVINYL ALCOHOL OPHT DROPS 15 ML BOTTLE EACHEYE SCH ×4 (07:30→19:30)
[2022-03-05] MEDS: ALBUTEROL SULFATE 2.5 MG/3 ML NEBU NEB SCH ×3 (07:35→19:18)
[2022-03-05] MEDS: [UNRECOGNIZED DRUG - OTHER] GT SCH ×2 (08:52→20:53)
[2022-03-05] MEDS: COD LIVER OIL/ZINC OXIDE OINT 113 GM TUBE TP SCH ×2 (08:52→20:53)
[2022-03-05] MEDS: [UNRECOGNIZED DRUG - OTHER] GT SCH (08:52)
[2022-03-05] MEDS: VITAMINS A AND D OINT 42 GM TUBE TP SCH (08:52)
[2022-03-05] MEDS: HYDROGEN PEROXIDE 3% 118 ML BOTTLE TP SCH ×2 (09:41→21:08)
[2022-03-05] MEDS: CARBIDOPA/LEVODOPA 25-100MG TABLET GT SCH ×2 (13:22→21:51)
[2022-03-05] MEDS: CALCIUM CARB/VITAMIN D 600-400 MG TABLET GT SCH (17:42)
[2022-03-05] MEDS: OSMOLITE 1.2 CAL 1,000 ML LIQUID GT PRN (18:19)
[2022-03-05] MEDS: PROTEIN SUPPLEMENT (PROSTAT) 30 ML LIQUID GT SCH (20:53)
[2022-03-05] MEDS: MINERAL OIL/PETROLAT OPHT OINT 3.5 GM TUBE EACHEYE SCH (20:53)
[2022-03-06] VITALS (10 sets, daily range): TEMP 98.4–98.8; O2SAT 98
[2022-03-06] MEDS: POLYVINYL ALCOHOL OPHT DROPS 15 ML BOTTLE EACHEYE SCH ×7 (00:13→23:30)
[2022-03-06] MEDS: ALBUTEROL SULFATE 2.5 MG/3 ML NEBU NEB SCH ×4 (01:30→19:30)
[2022-03-06] MEDS: [UNRECOGNIZED DRUG - OTHER] GT SCH (05:38)
[2022-03-06] MEDS: ALENDRONATE SODIUM 70 MG GT SCH (05:38)
[2022-03-06] MEDS: CARBIDOPA/LEVODOPA 25-100MG TABLET GT SCH ×3 (05:38→22:28)
[2022-03-06] MEDS: LEVOTHYROXINE SODIUM 125 MCG TABLET PO SCH (05:38)
[2022-03-06] MEDS: CALCIUM CARB/VITAMIN D 600-400 MG TABLET GT SCH ×2 (05:38→17:20)
[2022-03-06] MEDS: FAMOTIDINE 20 MG TABLET GT SCH (05:38)
[2022-03-06] MEDS: HYDROGEN PEROXIDE 3% 118 ML BOTTLE TP SCH ×2 (07:37→20:38)
[2022-03-06] MEDS: [UNRECOGNIZED DRUG - OTHER] GT SCH ×2 (08:17→20:25)
[2022-03-06] MEDS: [UNRECOGNIZED DRUG - OTHER] GT SCH (08:17)
[2022-03-06] MEDS: VITAMINS A AND D OINT 42 GM TUBE TP SCH (09:00)
[2022-03-06] MEDS: COD LIVER OIL/ZINC OXIDE OINT 113 GM TUBE TP SCH ×2 (09:00→20:25)
[2022-03-06] MEDS: PROTEIN SUPPLEMENT (PROSTAT) 30 ML LIQUID GT SCH (20:25)
[2022-03-06] MEDS: MINERAL OIL/PETROLAT OPHT OINT 3.5 GM TUBE EACHEYE SCH (20:25)
[2022-03-06] MEDS: OSMOLITE 1.2 CAL 1,000 ML LIQUID GT PRN (20:27)
[2022-03-07] VITALS (8 sets, daily range): TEMP 97.1–98.2; O2SAT 98–99
[2022-03-07] MEDS: ALBUTEROL SULFATE 2.5 MG/3 ML NEBU NEB SCH ×4 (01:32→19:09)
[2022-03-07] MEDS: POLYVINYL ALCOHOL OPHT DROPS 15 ML BOTTLE EACHEYE SCH ×6 (04:17→23:59)
[2022-03-07] MEDS: CALCIUM CARB/VITAMIN D 600-400 MG TABLET GT SCH ×2 (05:42→17:49)
[2022-03-07] MEDS: CARBIDOPA/LEVODOPA 25-100MG TABLET GT SCH ×3 (05:42→21:31)
[2022-03-07] MEDS: LEVOTHYROXINE SODIUM 125 MCG TABLET PO SCH (05:42)
[2022-03-07] MEDS: [UNRECOGNIZED DRUG - OTHER] GT SCH (05:42)
[2022-03-07] MEDS: FAMOTIDINE 20 MG TABLET GT SCH (05:42)
[2022-03-07] MEDS: HYDROGEN PEROXIDE 3% 118 ML BOTTLE TP SCH ×2 (07:16→21:16)
[2022-03-07] MEDS: [UNRECOGNIZED DRUG - OTHER] GT SCH (09:49)
[2022-03-07] MEDS: VITAMINS A AND D OINT 42 GM TUBE TP SCH (09:49)
[2022-03-07] MEDS: [UNRECOGNIZED DRUG - OTHER] GT SCH ×2 (09:49→21:31)
[2022-03-07] MEDS: COD LIVER OIL/ZINC OXIDE OINT 113 GM TUBE TP SCH ×2 (09:49→21:31)
[2022-03-07] MEDS: MINERAL OIL/PETROLAT OPHT OINT 3.5 GM TUBE EACHEYE SCH (21:30)
[2022-03-07] MEDS: PROTEIN SUPPLEMENT (PROSTAT) 30 ML LIQUID GT SCH (21:31)
[2022-03-08] VITALS (8 sets, daily range): TEMP 98–98.4; O2SAT 98
[2022-03-08] MEDS: ALBUTEROL SULFATE 2.5 MG/3 ML NEBU NEB SCH ×4 (00:31→19:20)
[2022-03-08] MEDS: POLYVINYL ALCOHOL OPHT DROPS 15 ML BOTTLE EACHEYE SCH ×6 (03:30→23:30)
[2022-03-08] MEDS: CALCIUM CARB/VITAMIN D 600-400 MG TABLET GT SCH ×2 (05:52→17:26)
[2022-03-08] MEDS: [UNRECOGNIZED DRUG - OTHER] GT SCH (05:52)
[2022-03-08] MEDS: CARBIDOPA/LEVODOPA 25-100MG TABLET GT SCH ×3 (05:52→21:47)
[2022-03-08] MEDS: LEVOTHYROXINE SODIUM 125 MCG TABLET PO SCH (05:52)
[2022-03-08] MEDS: FAMOTIDINE 20 MG TABLET GT SCH (05:52)
[2022-03-08] MEDS: HYDROGEN PEROXIDE 3% 118 ML BOTTLE TP SCH ×2 (07:36→21:00)
[2022-03-08] MEDS: VITAMINS A AND D OINT 42 GM TUBE TP SCH (08:40)
[2022-03-08] MEDS: [UNRECOGNIZED DRUG - OTHER] GT SCH ×2 (08:40→21:47)
[2022-03-08] MEDS: [UNRECOGNIZED DRUG - OTHER] GT SCH (08:40)
[2022-03-08] MEDS: COD LIVER OIL/ZINC OXIDE OINT 113 GM TUBE TP SCH ×2 (08:40→21:47)
[2022-03-08] MEDS: PROTEIN SUPPLEMENT (PROSTAT) 30 ML LIQUID GT SCH (21:47)
[2022-03-08] MEDS: MINERAL OIL/PETROLAT OPHT OINT 3.5 GM TUBE EACHEYE SCH (21:47)
[2022-03-09] VITALS (9 sets, daily range): TEMP 97.6–97.8; O2SAT 98
[2022-03-09] MEDS: ALBUTEROL SULFATE 2.5 MG/3 ML NEBU NEB SCH ×2 (01:35→07:35)
[2022-03-09] MEDS: POLYVINYL ALCOHOL OPHT DROPS 15 ML BOTTLE EACHEYE SCH ×6 (04:09→23:30)
[2022-03-09] MEDS: [UNRECOGNIZED DRUG - OTHER] GT SCH (05:40)
[2022-03-09] MEDS: FAMOTIDINE 20 MG TABLET GT SCH (05:40)
[2022-03-09] MEDS: LEVOTHYROXINE SODIUM 125 MCG TABLET PO SCH (05:40)
[2022-03-09] MEDS: CARBIDOPA/LEVODOPA 25-100MG TABLET GT SCH ×3 (05:40→22:29)
[2022-03-09] MEDS: CALCIUM CARB/VITAMIN D 600-400 MG TABLET GT SCH ×2 (05:40→17:44)
[2022-03-09] MEDS: OSMOLITE 1.2 CAL 1,000 ML LIQUID GT PRN (07:17)
[2022-03-09] MEDS: HYDROGEN PEROXIDE 3% 118 ML BOTTLE TP SCH ×2 (08:38→21:10)
[2022-03-09] MEDS: [UNRECOGNIZED DRUG - OTHER] GT SCH ×2 (09:00→20:52)
[2022-03-09] MEDS: VITAMINS A AND D OINT 42 GM TUBE TP SCH (09:00)
[2022-03-09] MEDS: COD LIVER OIL/ZINC OXIDE OINT 113 GM TUBE TP SCH ×2 (09:00→20:52)
[2022-03-09] MEDS: [UNRECOGNIZED DRUG - OTHER] GT SCH (09:00)
[2022-03-09] MEDS: LOPERAMIDE HCL 2 MG/15 ML GT PRN (10:26)
[2022-03-09] MEDS: PROTEIN SUPPLEMENT (PROSTAT) 30 ML LIQUID GT SCH (20:52)
[2022-03-09] MEDS: MINERAL OIL/PETROLAT OPHT OINT 3.5 GM TUBE EACHEYE SCH (20:52)
[2022-03-10 01:35] VITALS: O2SAT 98
[2022-03-10 01:45] VITALS: O2SAT 98
[2022-03-10] MEDS: POLYVINYL ALCOHOL OPHT DROPS 15 ML BOTTLE EACHEYE SCH ×6 (03:30→23:30)
[2022-03-10] MEDS: OSMOLITE 1.2 CAL 1,000 ML LIQUID GT PRN (04:45)
[2022-03-10] MEDS: CARBIDOPA/LEVODOPA 25-100MG TABLET GT SCH ×3 (05:01→21:30)
[2022-03-10] MEDS: CALCIUM CARB/VITAMIN D 600-400 MG TABLET GT SCH ×2 (05:01→17:08)
[2022-03-10] MEDS: [UNRECOGNIZED DRUG - OTHER] GT SCH (05:01)
[2022-03-10] MEDS: FAMOTIDINE 20 MG TABLET GT SCH (05:02)
[2022-03-10] MEDS: LEVOTHYROXINE SODIUM 125 MCG TABLET PO SCH (05:02)
[2022-03-10 08:00] VITALS: TEMP 97.8
[2022-03-10] MEDS: HYDROGEN PEROXIDE 3% 118 ML BOTTLE TP SCH ×2 (08:12→21:30)
[2022-03-10] MEDS: COD LIVER OIL/ZINC OXIDE OINT 113 GM TUBE TP SCH ×2 (08:53→21:30)
[2022-03-10] MEDS: [UNRECOGNIZED DRUG - OTHER] GT SCH (08:53)
[2022-03-10] MEDS: VITAMINS A AND D OINT 42 GM TUBE TP SCH (08:54)
[2022-03-10] MEDS: [UNRECOGNIZED DRUG - OTHER] GT SCH ×2 (09:00→21:30)
[2022-03-10 15:32] VITALS: O2SAT 98
[2022-03-10 19:00] VITALS: TEMP 98.4
[2022-03-10 19:36] VITALS: O2SAT 98
[2022-03-10] MEDS: PROTEIN SUPPLEMENT (PROSTAT) 30 ML LIQUID GT SCH (21:30)
[2022-03-10] MEDS: MINERAL OIL/PETROLAT OPHT OINT 3.5 GM TUBE EACHEYE SCH (21:30)
[2022-03-11] MEDS: POLYVINYL ALCOHOL OPHT DROPS 15 ML BOTTLE EACHEYE SCH ×6 (03:30→23:45)
[2022-03-11] MEDS: FAMOTIDINE 20 MG TABLET GT SCH (05:40)
[2022-03-11] MEDS: [UNRECOGNIZED DRUG - OTHER] GT SCH (05:40)
[2022-03-11] MEDS: CALCIUM CARB/VITAMIN D 600-400 MG TABLET GT SCH ×2 (05:40→17:03)
[2022-03-11] MEDS: LEVOTHYROXINE SODIUM 125 MCG TABLET PO SCH (05:40)
[2022-03-11] MEDS: CARBIDOPA/LEVODOPA 25-100MG TABLET GT SCH ×3 (05:40→22:43)
[2022-03-11 07:29] VITALS: TEMP 98.4
[2022-03-11] MEDS: HYDROGEN PEROXIDE 3% 118 ML BOTTLE TP SCH ×2 (08:30→20:57)
[2022-03-11] MEDS: [UNRECOGNIZED DRUG - OTHER] GT SCH ×2 (09:00→21:00)
[2022-03-11] MEDS: VITAMINS A AND D OINT 42 GM TUBE TP SCH (09:41)
[2022-03-11] MEDS: [UNRECOGNIZED DRUG - OTHER] GT SCH (09:41)
[2022-03-11] MEDS: COD LIVER OIL/ZINC OXIDE OINT 113 GM TUBE TP SCH ×2 (09:41→21:00)
[2022-03-11 14:02] VITALS: O2SAT 98
[2022-03-11 20:00] VITALS: TEMP 98.4
[2022-03-11] MEDS: MINERAL OIL/PETROLAT OPHT OINT 3.5 GM TUBE EACHEYE SCH (21:00)
[2022-03-11] MEDS: PROTEIN SUPPLEMENT (PROSTAT) 30 ML LIQUID GT SCH (21:00)
[2022-03-12] MEDS: VITAMINS A AND D OINT 42 GM TUBE TP SCH (02:01)
[2022-03-12] MEDS: POLYVINYL ALCOHOL OPHT DROPS 15 ML BOTTLE EACHEYE SCH ×6 (03:55→23:30)
[2022-03-12] MEDS: LEVOTHYROXINE SODIUM 125 MCG TABLET PO SCH (05:54)
[2022-03-12] MEDS: FAMOTIDINE 20 MG TABLET GT SCH (05:54)
[2022-03-12] MEDS: [UNRECOGNIZED DRUG - OTHER] GT SCH (05:54)
[2022-03-12] MEDS: CARBIDOPA/LEVODOPA 25-100MG TABLET GT SCH ×3 (05:54→21:04)
[2022-03-12] MEDS: CALCIUM CARB/VITAMIN D 600-400 MG TABLET GT SCH ×2 (05:54→17:23)
[2022-03-12 07:24] VITALS: TEMP 98.4
[2022-03-12] MEDS: [UNRECOGNIZED DRUG - OTHER] GT SCH (08:38)
[2022-03-12] MEDS: COD LIVER OIL/ZINC OXIDE OINT 113 GM TUBE TP SCH ×2 (08:39→21:04)
[2022-03-12] MEDS: [UNRECOGNIZED DRUG - OTHER] GT SCH ×2 (09:00→21:00)
[2022-03-12] MEDS: HYDROGEN PEROXIDE 3% 118 ML BOTTLE TP SCH ×2 (09:00→21:54)
[2022-03-12 10:35] VITALS: O2SAT 98
[2022-03-12] MEDS: OSMOLITE 1.2 CAL 1,000 ML LIQUID GT PRN (12:30)
[2022-03-12 20:00] VITALS: TEMP 98.6
[2022-03-12] MEDS: PROTEIN SUPPLEMENT (PROSTAT) 30 ML LIQUID GT SCH (21:04)
[2022-03-12] MEDS: MINERAL OIL/PETROLAT OPHT OINT 3.5 GM TUBE EACHEYE SCH (21:04)
[2022-03-12 22:09] VITALS: O2SAT 98
[2022-03-13] MEDS: POLYVINYL ALCOHOL OPHT DROPS 15 ML BOTTLE EACHEYE SCH ×6 (03:30→23:16)
[2022-03-13] MEDS: CALCIUM CARB/VITAMIN D 600-400 MG TABLET GT SCH ×2 (06:22→17:23)
[2022-03-13] MEDS: FAMOTIDINE 20 MG TABLET GT SCH (06:22)
[2022-03-13] MEDS: CARBIDOPA/LEVODOPA 25-100MG TABLET GT SCH ×3 (06:22→21:57)
[2022-03-13] MEDS: [UNRECOGNIZED DRUG - OTHER] GT SCH (06:22)
[2022-03-13] MEDS: ALENDRONATE SODIUM 70 MG GT SCH (06:22)
[2022-03-13] MEDS: LEVOTHYROXINE SODIUM 125 MCG TABLET PO SCH (06:22)
[2022-03-13 08:21] VITALS: TEMP 97
[2022-03-13] MEDS: HYDROGEN PEROXIDE 3% 118 ML BOTTLE TP SCH ×2 (08:42→20:57)
[2022-03-13 09:00] VITALS: BP 138/71; O2SAT 97
[2022-03-13] MEDS: [UNRECOGNIZED DRUG - OTHER] GT SCH ×2 (09:00→20:54)
[2022-03-13] MEDS: COD LIVER OIL/ZINC OXIDE OINT 113 GM TUBE TP SCH ×2 (09:09→20:54)
[2022-03-13] MEDS: [UNRECOGNIZED DRUG - OTHER] GT SCH (09:09)
[2022-03-13] MEDS: VITAMINS A AND D OINT 42 GM TUBE TP SCH (09:10)
[2022-03-13] MEDS: LOPERAMIDE HCL 2 MG/15 ML GT PRN (09:12)
[2022-03-13] MEDS: OSMOLITE 1.2 CAL 1,000 ML LIQUID GT PRN (12:37)
[2022-03-13 15:03] VITALS: O2SAT 98
[2022-03-13 20:00] VITALS: TEMP 97.6
[2022-03-13] MEDS: PROTEIN SUPPLEMENT (PROSTAT) 30 ML LIQUID GT SCH (20:54)
[2022-03-13] MEDS: MINERAL OIL/PETROLAT OPHT OINT 3.5 GM TUBE EACHEYE SCH (20:54)
[2022-03-13 22:02] VITALS: O2SAT 98
[2022-03-14] MEDS: POLYVINYL ALCOHOL OPHT DROPS 15 ML BOTTLE EACHEYE SCH ×6 (03:30→23:18)
[2022-03-14] MEDS: [UNRECOGNIZED DRUG - OTHER] GT SCH (05:16)
[2022-03-14] MEDS: CALCIUM CARB/VITAMIN D 600-400 MG TABLET GT SCH ×2 (05:16→17:31)
[2022-03-14] MEDS: LEVOTHYROXINE SODIUM 125 MCG TABLET PO SCH (05:16)
[2022-03-14] MEDS: CARBIDOPA/LEVODOPA 25-100MG TABLET GT SCH ×3 (05:16→22:00)
[2022-03-14] MEDS: FAMOTIDINE 20 MG TABLET GT SCH (05:31)
[2022-03-14 07:48] VITALS: TEMP 97.8
[2022-03-14] MEDS: VITAMINS A AND D OINT 42 GM TUBE TP SCH (09:00)
[2022-03-14] MEDS: [UNRECOGNIZED DRUG - OTHER] GT SCH ×2 (09:00→20:50)
[2022-03-14] MEDS: [UNRECOGNIZED DRUG - OTHER] GT SCH (09:00)
[2022-03-14] MEDS: COD LIVER OIL/ZINC OXIDE OINT 113 GM TUBE TP SCH ×2 (09:00→20:50)
[2022-03-14 09:32] VITALS: O2SAT 98
[2022-03-14] MEDS: HYDROGEN PEROXIDE 3% 118 ML BOTTLE TP SCH ×2 (09:32→21:01)
[2022-03-14] MEDS: LOPERAMIDE HCL 2 MG/15 ML GT PRN (10:06)
[2022-03-14] MEDS: OSMOLITE 1.2 CAL 1,000 ML LIQUID GT PRN (13:54)
[2022-03-14 20:00] VITALS: TEMP 97.8
[2022-03-14] MEDS: MINERAL OIL/PETROLAT OPHT OINT 3.5 GM TUBE EACHEYE SCH (20:50)
[2022-03-14] MEDS: PROTEIN SUPPLEMENT (PROSTAT) 30 ML LIQUID GT SCH (20:50)
[2022-03-15] MEDS: POLYVINYL ALCOHOL OPHT DROPS 15 ML BOTTLE EACHEYE SCH ×6 (03:30→21:30)
[2022-03-15] MEDS: FAMOTIDINE 20 MG TABLET GT SCH (05:52)
[2022-03-15] MEDS: [UNRECOGNIZED DRUG - OTHER] GT SCH (05:52)
[2022-03-15] MEDS: CARBIDOPA/LEVODOPA 25-100MG TABLET GT SCH ×3 (05:52→21:30)
[2022-03-15] MEDS: LEVOTHYROXINE SODIUM 125 MCG TABLET PO SCH (05:52)
[2022-03-15] MEDS: CALCIUM CARB/VITAMIN D 600-400 MG TABLET GT SCH ×2 (05:52→17:08)
[2022-03-15 07:40] VITALS: O2SAT 98
[2022-03-15 07:42] VITALS: TEMP 98.1
[2022-03-15] MEDS: [UNRECOGNIZED DRUG - OTHER] GT SCH (09:48)
[2022-03-15] MEDS: VITAMINS A AND D OINT 42 GM TUBE TP SCH (09:48)
[2022-03-15] MEDS: diphenhydrAMINE 25 MG/10 ML UDC GT PRN (09:48)
[2022-03-15] MEDS: COD LIVER OIL/ZINC OXIDE OINT 113 GM TUBE TP SCH ×2 (09:48→21:25)
[2022-03-15] MEDS: [UNRECOGNIZED DRUG - OTHER] GT SCH ×2 (09:48→21:30)
[2022-03-15] MEDS: HYDROGEN PEROXIDE 3% 118 ML BOTTLE TP SCH ×2 (09:56→20:14)
[2022-03-15 20:30] VITALS: O2SAT 98
[2022-03-15] MEDS: MINERAL OIL/PETROLAT OPHT OINT 3.5 GM TUBE EACHEYE SCH (21:23)
[2022-03-15] MEDS: PROTEIN SUPPLEMENT (PROSTAT) 30 ML LIQUID GT SCH (21:25)
[2022-03-15 22:32] VITALS: TEMP 98.5
[2022-03-16] MEDS: POLYVINYL ALCOHOL OPHT DROPS 15 ML BOTTLE EACHEYE SCH ×6 (03:30→22:05)
[2022-03-16] MEDS: CALCIUM CARB/VITAMIN D 600-400 MG TABLET GT SCH ×2 (05:23→17:44)
[2022-03-16] MEDS: [UNRECOGNIZED DRUG - OTHER] GT SCH (05:23)
[2022-03-16] MEDS: CARBIDOPA/LEVODOPA 25-100MG TABLET GT SCH ×3 (05:30→21:04)
[2022-03-16] MEDS: LEVOTHYROXINE SODIUM 125 MCG TABLET PO SCH (05:30)
[2022-03-16] MEDS: FAMOTIDINE 20 MG TABLET GT SCH (05:30)
[2022-03-16] MEDS: HYDROGEN PEROXIDE 3% 118 ML BOTTLE TP SCH ×2 (07:45→20:32)
[2022-03-16 08:00] VITALS: TEMP 97
[2022-03-16] MEDS: [UNRECOGNIZED DRUG - OTHER] GT SCH ×2 (09:46→21:04)
[2022-03-16] MEDS: [UNRECOGNIZED DRUG - OTHER] GT SCH (09:46)
[2022-03-16] MEDS: COD LIVER OIL/ZINC OXIDE OINT 113 GM TUBE TP SCH ×2 (09:46→21:00)
[2022-03-16] MEDS: VITAMINS A AND D OINT 42 GM TUBE TP SCH (09:46)
[2022-03-16 10:40] VITALS: O2SAT 98
[2022-03-16] MEDS: OSMOLITE 1.2 CAL 1,000 ML LIQUID GT PRN (17:54)
[2022-03-16 20:30] VITALS: O2SAT 98
[2022-03-16 20:44] VITALS: TEMP 97.8
[2022-03-16] MEDS: MINERAL OIL/PETROLAT OPHT OINT 3.5 GM TUBE EACHEYE SCH (20:59)
[2022-03-16] MEDS: PROTEIN SUPPLEMENT (PROSTAT) 30 ML LIQUID GT SCH (21:00)
[2022-03-17] MEDS: POLYVINYL ALCOHOL OPHT DROPS 15 ML BOTTLE EACHEYE SCH ×6 (03:30→23:30)
[2022-03-17] MEDS: CALCIUM CARB/VITAMIN D 600-400 MG TABLET GT SCH ×2 (05:39→17:07)
[2022-03-17] MEDS: CARBIDOPA/LEVODOPA 25-100MG TABLET GT SCH ×3 (05:40→21:35)
[2022-03-17] MEDS: FAMOTIDINE 20 MG TABLET GT SCH (05:40)
[2022-03-17] MEDS: LEVOTHYROXINE SODIUM 125 MCG TABLET PO SCH (05:40)
[2022-03-17] MEDS: [UNRECOGNIZED DRUG - OTHER] GT SCH (05:40)
[2022-03-17 07:44] VITALS: TEMP 97.6
[2022-03-17 08:34] VITALS: O2SAT 98
[2022-03-17] MEDS: HYDROGEN PEROXIDE 3% 118 ML BOTTLE TP SCH ×2 (08:34→20:17)
[2022-03-17] MEDS: [UNRECOGNIZED DRUG - OTHER] GT SCH ×2 (09:32→21:35)
[2022-03-17] MEDS: VITAMINS A AND D OINT 42 GM TUBE TP SCH (09:33)
[2022-03-17] MEDS: [UNRECOGNIZED DRUG - OTHER] GT SCH (09:33)
[2022-03-17] MEDS: COD LIVER OIL/ZINC OXIDE OINT 113 GM TUBE TP SCH ×2 (09:33→21:35)
[2022-03-17] MEDS: diphenhydrAMINE 25 MG/10 ML UDC GT PRN (16:51)
[2022-03-17] MEDS: OSMOLITE 1.2 CAL 1,000 ML LIQUID GT PRN (19:14)
[2022-03-17 20:40] VITALS: O2SAT 98
[2022-03-17] MEDS: PROTEIN SUPPLEMENT (PROSTAT) 30 ML LIQUID GT SCH (21:35)
[2022-03-17] MEDS: MINERAL OIL/PETROLAT OPHT OINT 3.5 GM TUBE EACHEYE SCH (21:35)
[2022-03-17 22:30] VITALS: TEMP 98.3
[2022-03-18] MEDS: POLYVINYL ALCOHOL OPHT DROPS 15 ML BOTTLE EACHEYE SCH ×6 (03:30→23:30)
[2022-03-18] MEDS: CALCIUM CARB/VITAMIN D 600-400 MG TABLET GT SCH ×2 (05:49→17:24)
[2022-03-18] MEDS: [UNRECOGNIZED DRUG - OTHER] GT SCH (05:49)
[2022-03-18] MEDS: CARBIDOPA/LEVODOPA 25-100MG TABLET GT SCH ×3 (05:49→22:34)
[2022-03-18] MEDS: FAMOTIDINE 20 MG TABLET GT SCH (05:49)
[2022-03-18] MEDS: LEVOTHYROXINE SODIUM 125 MCG TABLET PO SCH (05:49)
[2022-03-18] MEDS: HYDROGEN PEROXIDE 3% 118 ML BOTTLE TP SCH ×2 (07:18→21:00)
[2022-03-18 07:23] VITALS: TEMP 98.9
[2022-03-18] MEDS: [UNRECOGNIZED DRUG - OTHER] GT SCH (09:25)
[2022-03-18] MEDS: COD LIVER OIL/ZINC OXIDE OINT 113 GM TUBE TP SCH ×2 (09:25→21:00)
[2022-03-18] MEDS: [UNRECOGNIZED DRUG - OTHER] GT SCH ×2 (09:25→21:00)
[2022-03-18] MEDS: VITAMINS A AND D OINT 42 GM TUBE TP SCH (09:25)
[2022-03-18 13:31] VITALS: O2SAT 98
[2022-03-18 20:00] VITALS: TEMP 98.7
[2022-03-18] MEDS: MINERAL OIL/PETROLAT OPHT OINT 3.5 GM TUBE EACHEYE SCH (21:00)
[2022-03-18] MEDS: PROTEIN SUPPLEMENT (PROSTAT) 30 ML LIQUID GT SCH (21:00)
[2022-03-19] MEDS: POLYVINYL ALCOHOL OPHT DROPS 15 ML BOTTLE EACHEYE SCH ×6 (03:37→23:30)
[2022-03-19] MEDS: CALCIUM CARB/VITAMIN D 600-400 MG TABLET GT SCH ×2 (05:26→17:17)
[2022-03-19] MEDS: LEVOTHYROXINE SODIUM 125 MCG TABLET PO SCH (05:26)
[2022-03-19] MEDS: CARBIDOPA/LEVODOPA 25-100MG TABLET GT SCH ×3 (05:26→21:50)
[2022-03-19] MEDS: [UNRECOGNIZED DRUG - OTHER] GT SCH (05:26)
[2022-03-19] MEDS: FAMOTIDINE 20 MG TABLET GT SCH (05:27)
[2022-03-19 07:23] VITALS: TEMP 98.6
[2022-03-19 07:26] VITALS: O2SAT 98
[2022-03-19] MEDS: HYDROGEN PEROXIDE 3% 118 ML BOTTLE TP SCH ×2 (07:26→20:37)
[2022-03-19] MEDS: [UNRECOGNIZED DRUG - OTHER] GT SCH ×2 (08:29→20:13)
[2022-03-19] MEDS: [UNRECOGNIZED DRUG - OTHER] GT SCH (08:30)
[2022-03-19] MEDS: COD LIVER OIL/ZINC OXIDE OINT 113 GM TUBE TP SCH ×2 (08:30→20:14)
[2022-03-19] MEDS: VITAMINS A AND D OINT 42 GM TUBE TP SCH (08:30)
[2022-03-19 13:30] VITALS: O2SAT 98
[2022-03-19] MEDS: PROTEIN SUPPLEMENT (PROSTAT) 30 ML LIQUID GT SCH (20:13)
[2022-03-19] MEDS: MINERAL OIL/PETROLAT OPHT OINT 3.5 GM TUBE EACHEYE SCH (20:13)
[2022-03-19 20:24] VITALS: TEMP 97.4
[2022-03-19 20:38] VITALS: O2SAT 98; O2SAT 99
[2022-03-20] MEDS: POLYVINYL ALCOHOL OPHT DROPS 15 ML BOTTLE EACHEYE SCH ×6 (03:53→23:30)
[2022-03-20] MEDS: OSMOLITE 1.2 CAL 1,000 ML LIQUID GT PRN (04:01)
[2022-03-20] MEDS: FAMOTIDINE 20 MG TABLET GT SCH (05:50)
[2022-03-20] MEDS: CALCIUM CARB/VITAMIN D 600-400 MG TABLET GT SCH ×2 (05:50→17:08)
[2022-03-20] MEDS: LEVOTHYROXINE SODIUM 125 MCG TABLET PO SCH (05:50)
[2022-03-20] MEDS: [UNRECOGNIZED DRUG - OTHER] GT SCH (05:50)
[2022-03-20] MEDS: ALENDRONATE SODIUM 70 MG GT SCH (05:50)
[2022-03-20] MEDS: CARBIDOPA/LEVODOPA 25-100MG TABLET GT SCH ×3 (05:50→22:01)
[2022-03-20 07:23] VITALS: O2SAT 98
[2022-03-20] MEDS: HYDROGEN PEROXIDE 3% 118 ML BOTTLE TP SCH ×2 (07:23→20:50)
[2022-03-20 07:31] VITALS: TEMP 98.2
[2022-03-20] MEDS: VITAMINS A AND D OINT 42 GM TUBE TP SCH (09:11)
[2022-03-20] MEDS: COD LIVER OIL/ZINC OXIDE OINT 113 GM TUBE TP SCH ×2 (09:11→20:46)
[2022-03-20] MEDS: [UNRECOGNIZED DRUG - OTHER] GT SCH (09:11)
[2022-03-20] MEDS: [UNRECOGNIZED DRUG - OTHER] GT SCH ×2 (09:11→20:46)
[2022-03-20 20:00] VITALS: TEMP 98
[2022-03-20] MEDS: PROTEIN SUPPLEMENT (PROSTAT) 30 ML LIQUID GT SCH (20:46)
[2022-03-20] MEDS: MINERAL OIL/PETROLAT OPHT OINT 3.5 GM TUBE EACHEYE SCH (20:46)
[2022-03-20 20:57] VITALS: O2SAT 99
[2022-03-21] MEDS: POLYVINYL ALCOHOL OPHT DROPS 15 ML BOTTLE EACHEYE SCH ×6 (03:30→23:30)
[2022-03-21] MEDS: LEVOTHYROXINE SODIUM 125 MCG TABLET PO SCH (05:01)
[2022-03-21] MEDS: CALCIUM CARB/VITAMIN D 600-400 MG TABLET GT SCH ×2 (05:01→18:37)
[2022-03-21] MEDS: [UNRECOGNIZED DRUG - OTHER] GT SCH (05:01)
[2022-03-21] MEDS: OSMOLITE 1.2 CAL 1,000 ML LIQUID GT PRN (05:01)
[2022-03-21] MEDS: CARBIDOPA/LEVODOPA 25-100MG TABLET GT SCH ×3 (05:01→21:36)
[2022-03-21] MEDS: FAMOTIDINE 20 MG TABLET GT SCH (05:51)
[2022-03-21] MEDS: HYDROGEN PEROXIDE 3% 118 ML BOTTLE TP SCH ×2 (07:33→19:20)
[2022-03-21 07:34] VITALS: O2SAT 98
[2022-03-21 07:57] VITALS: TEMP 98.3
[2022-03-21] MEDS: VITAMINS A AND D OINT 42 GM TUBE TP SCH (09:24)
[2022-03-21] MEDS: [UNRECOGNIZED DRUG - OTHER] GT SCH (09:24)
[2022-03-21] MEDS: [UNRECOGNIZED DRUG - OTHER] GT SCH ×2 (09:24→21:36)
[2022-03-21] MEDS: COD LIVER OIL/ZINC OXIDE OINT 113 GM TUBE TP SCH ×2 (09:24→21:36)
[2022-03-21 11:52] VITALS: O2SAT 98
[2022-03-21 20:00] VITALS: TEMP 98
[2022-03-21 20:20] VITALS: O2SAT 99
[2022-03-21] MEDS: PROTEIN SUPPLEMENT (PROSTAT) 30 ML LIQUID GT SCH (21:36)
[2022-03-21] MEDS: MINERAL OIL/PETROLAT OPHT OINT 3.5 GM TUBE EACHEYE SCH (21:36)
[2022-03-22] MEDS: OSMOLITE 1.2 CAL 1,000 ML LIQUID GT PRN (02:00)
[2022-03-22] MEDS: POLYVINYL ALCOHOL OPHT DROPS 15 ML BOTTLE EACHEYE SCH ×6 (03:30→23:30)
[2022-03-22] MEDS: [UNRECOGNIZED DRUG - OTHER] GT SCH (05:57)
[2022-03-22] MEDS: CARBIDOPA/LEVODOPA 25-100MG TABLET GT SCH ×3 (05:57→21:11)
[2022-03-22] MEDS: FAMOTIDINE 20 MG TABLET GT SCH (05:57)
[2022-03-22] MEDS: LEVOTHYROXINE SODIUM 125 MCG TABLET PO SCH (05:57)
[2022-03-22] MEDS: CALCIUM CARB/VITAMIN D 600-400 MG TABLET GT SCH ×2 (05:57→17:24)
[2022-03-22] MEDS: HYDROGEN PEROXIDE 3% 118 ML BOTTLE TP SCH ×2 (07:16→21:00)
[2022-03-22 07:54] VITALS: TEMP 97.5
[2022-03-22] MEDS: VITAMINS A AND D OINT 42 GM TUBE TP SCH (09:01)
[2022-03-22] MEDS: COD LIVER OIL/ZINC OXIDE OINT 113 GM TUBE TP SCH ×2 (09:01→21:11)
[2022-03-22] MEDS: [UNRECOGNIZED DRUG - OTHER] GT SCH (09:01)
[2022-03-22] MEDS: [UNRECOGNIZED DRUG - OTHER] GT SCH ×2 (09:01→21:10)
[2022-03-22 10:50] VITALS: O2SAT 98
[2022-03-22 20:39] VITALS: TEMP 97.4
[2022-03-22 20:45] VITALS: O2SAT 99
[2022-03-22] MEDS: MINERAL OIL/PETROLAT OPHT OINT 3.5 GM TUBE EACHEYE SCH (21:10)
[2022-03-22] MEDS: PROTEIN SUPPLEMENT (PROSTAT) 30 ML LIQUID GT SCH (21:11)
[2022-03-23] MEDS: POLYVINYL ALCOHOL OPHT DROPS 15 ML BOTTLE EACHEYE SCH ×6 (03:30→23:49)
[2022-03-23] MEDS: OSMOLITE 1.2 CAL 1,000 ML LIQUID GT PRN (04:33)
[2022-03-23] MEDS: CALCIUM CARB/VITAMIN D 600-400 MG TABLET GT SCH ×2 (06:21→17:01)
[2022-03-23] MEDS: CARBIDOPA/LEVODOPA 25-100MG TABLET GT SCH ×3 (06:21→21:56)
[2022-03-23] MEDS: FAMOTIDINE 20 MG TABLET GT SCH (06:21)
[2022-03-23] MEDS: LEVOTHYROXINE SODIUM 125 MCG TABLET PO SCH (06:21)
[2022-03-23] MEDS: [UNRECOGNIZED DRUG - OTHER] GT SCH (06:21)
[2022-03-23 07:37] VITALS: TEMP 97.6
[2022-03-23] MEDS: VITAMINS A AND D OINT 42 GM TUBE TP SCH (08:18)
[2022-03-23] MEDS: COD LIVER OIL/ZINC OXIDE OINT 113 GM TUBE TP SCH ×2 (08:18→21:44)
[2022-03-23] MEDS: [UNRECOGNIZED DRUG - OTHER] GT SCH ×2 (08:18→21:00)
[2022-03-23] MEDS: [UNRECOGNIZED DRUG - OTHER] GT SCH (08:18)
[2022-03-23] MEDS: HYDROGEN PEROXIDE 3% 118 ML BOTTLE TP SCH ×2 (08:22→19:15)
[2022-03-23 10:30] VITALS: O2SAT 98
[2022-03-23 19:40] VITALS: O2SAT 99
[2022-03-23 20:23] VITALS: TEMP 97.8
[2022-03-23] MEDS: MINERAL OIL/PETROLAT OPHT OINT 3.5 GM TUBE EACHEYE SCH (21:44)
[2022-03-23] MEDS: PROTEIN SUPPLEMENT (PROSTAT) 30 ML LIQUID GT SCH (21:44)
[2022-03-24] MEDS: OSMOLITE 1.2 CAL 1,000 ML LIQUID GT PRN (02:46)
[2022-03-24] MEDS: POLYVINYL ALCOHOL OPHT DROPS 15 ML BOTTLE EACHEYE SCH ×6 (02:46→23:30)
[2022-03-24] MEDS: FAMOTIDINE 20 MG TABLET GT SCH (06:06)
[2022-03-24] MEDS: CARBIDOPA/LEVODOPA 25-100MG TABLET GT SCH ×3 (06:06→22:12)
[2022-03-24] MEDS: LEVOTHYROXINE SODIUM 125 MCG TABLET PO SCH (06:06)
[2022-03-24] MEDS: [UNRECOGNIZED DRUG - OTHER] GT SCH (06:06)
[2022-03-24] MEDS: CALCIUM CARB/VITAMIN D 600-400 MG TABLET GT SCH ×2 (06:06→17:34)
[2022-03-24 07:15] VITALS: O2SAT 98
[2022-03-24 08:00] VITALS: TEMP 98.8
[2022-03-24] MEDS: [UNRECOGNIZED DRUG - OTHER] GT SCH ×2 (08:31→20:56)
[2022-03-24] MEDS: [UNRECOGNIZED DRUG - OTHER] GT SCH (08:31)
[2022-03-24] MEDS: VITAMINS A AND D OINT 42 GM TUBE TP SCH (08:31)
[2022-03-24] MEDS: COD LIVER OIL/ZINC OXIDE OINT 113 GM TUBE TP SCH ×2 (08:31→20:57)
[2022-03-24] MEDS: HYDROGEN PEROXIDE 3% 118 ML BOTTLE TP SCH ×2 (09:14→21:00)
[2022-03-24 19:30] VITALS: O2SAT 99
[2022-03-24 20:15] VITALS: TEMP 98.3
[2022-03-24] MEDS: MINERAL OIL/PETROLAT OPHT OINT 3.5 GM TUBE EACHEYE SCH (20:56)
[2022-03-24] MEDS: PROTEIN SUPPLEMENT (PROSTAT) 30 ML LIQUID GT SCH (20:57)
[2022-03-25] MEDS: POLYVINYL ALCOHOL OPHT DROPS 15 ML BOTTLE EACHEYE SCH ×6 (03:51→23:30)
[2022-03-25] MEDS: CALCIUM CARB/VITAMIN D 600-400 MG TABLET GT SCH ×2 (05:11→17:26)
[2022-03-25] MEDS: [UNRECOGNIZED DRUG - OTHER] GT SCH (05:11)
[2022-03-25] MEDS: LEVOTHYROXINE SODIUM 125 MCG TABLET PO SCH (05:11)
[2022-03-25] MEDS: CARBIDOPA/LEVODOPA 25-100MG TABLET GT SCH ×3 (05:11→21:57)
[2022-03-25] MEDS: FAMOTIDINE 20 MG TABLET GT SCH (05:42)
[2022-03-25 07:29] VITALS: TEMP 98.9
[2022-03-25] MEDS: HYDROGEN PEROXIDE 3% 118 ML BOTTLE TP SCH ×2 (08:20→21:35)
[2022-03-25] MEDS: [UNRECOGNIZED DRUG - OTHER] GT SCH ×2 (09:57→20:29)
[2022-03-25] MEDS: [UNRECOGNIZED DRUG - OTHER] GT SCH (09:58)
[2022-03-25] MEDS: COD LIVER OIL/ZINC OXIDE OINT 113 GM TUBE TP SCH ×2 (09:58→20:29)
[2022-03-25] MEDS: VITAMINS A AND D OINT 42 GM TUBE TP SCH (09:58)
[2022-03-25] MEDS: diphenhydrAMINE 25 MG/10 ML UDC GT PRN (10:01)
[2022-03-25 10:40] VITALS: O2SAT 97
[2022-03-25 19:54] VITALS: TEMP 99
[2022-03-25] MEDS: MINERAL OIL/PETROLAT OPHT OINT 3.5 GM TUBE EACHEYE SCH (20:29)
[2022-03-25] MEDS: PROTEIN SUPPLEMENT (PROSTAT) 30 ML LIQUID GT SCH (20:29)
[2022-03-25 21:35] VITALS: O2SAT 97
[2022-03-26] MEDS: POLYVINYL ALCOHOL OPHT DROPS 15 ML BOTTLE EACHEYE SCH ×6 (03:30→23:06)
[2022-03-26] MEDS: FAMOTIDINE 20 MG TABLET GT SCH (05:30)
[2022-03-26] MEDS: [UNRECOGNIZED DRUG - OTHER] GT SCH (05:30)
[2022-03-26] MEDS: CALCIUM CARB/VITAMIN D 600-400 MG TABLET GT SCH ×2 (05:30→17:14)
[2022-03-26] MEDS: CARBIDOPA/LEVODOPA 25-100MG TABLET GT SCH ×3 (05:30→21:26)
[2022-03-26] MEDS: LEVOTHYROXINE SODIUM 125 MCG TABLET PO SCH (05:30)
[2022-03-26 07:19] VITALS: TEMP 98.9
[2022-03-26 07:27] VITALS: O2SAT 98
[2022-03-26] MEDS: HYDROGEN PEROXIDE 3% 118 ML BOTTLE TP SCH ×2 (07:27→21:18)
[2022-03-26] MEDS: COD LIVER OIL/ZINC OXIDE OINT 113 GM TUBE TP SCH ×2 (09:21→20:45)
[2022-03-26] MEDS: [UNRECOGNIZED DRUG - OTHER] GT SCH ×2 (09:21→20:44)
[2022-03-26] MEDS: VITAMINS A AND D OINT 42 GM TUBE TP SCH (09:21)
[2022-03-26] MEDS: [UNRECOGNIZED DRUG - OTHER] GT SCH (09:21)
[2022-03-26] MEDS: LOPERAMIDE HCL 2 MG/15 ML GT PRN (10:32)
[2022-03-26 15:00] VITALS: O2SAT 98
[2022-03-26] MEDS: OSMOLITE 1.2 CAL 1,000 ML LIQUID GT PRN (17:18)
[2022-03-26 20:09] VITALS: TEMP 98.5
[2022-03-26] MEDS: MINERAL OIL/PETROLAT OPHT OINT 3.5 GM TUBE EACHEYE SCH (20:44)
[2022-03-26] MEDS: PROTEIN SUPPLEMENT (PROSTAT) 30 ML LIQUID GT SCH (20:45)
[2022-03-26 21:18] VITALS: O2SAT 99
[2022-03-27] MEDS: POLYVINYL ALCOHOL OPHT DROPS 15 ML BOTTLE EACHEYE SCH ×6 (03:30→23:12)
[2022-03-27] MEDS: [UNRECOGNIZED DRUG - OTHER] GT SCH (06:11)
[2022-03-27] MEDS: CARBIDOPA/LEVODOPA 25-100MG TABLET GT SCH ×3 (06:11→21:11)
[2022-03-27] MEDS: LEVOTHYROXINE SODIUM 125 MCG TABLET PO SCH (06:11)
[2022-03-27] MEDS: ALENDRONATE SODIUM 70 MG GT SCH (06:11)
[2022-03-27] MEDS: FAMOTIDINE 20 MG TABLET GT SCH (06:11)
[2022-03-27] MEDS: CALCIUM CARB/VITAMIN D 600-400 MG TABLET GT SCH ×2 (06:11→18:00)
[2022-03-27 07:34] VITALS: TEMP 97.1
[2022-03-27] MEDS: HYDROGEN PEROXIDE 3% 118 ML BOTTLE TP SCH ×2 (08:53→20:57)
[2022-03-27] MEDS: COD LIVER OIL/ZINC OXIDE OINT 113 GM TUBE TP SCH ×2 (09:22→21:11)
[2022-03-27] MEDS: [UNRECOGNIZED DRUG - OTHER] GT SCH ×2 (09:22→21:01)
[2022-03-27] MEDS: [UNRECOGNIZED DRUG - OTHER] GT SCH (09:22)
[2022-03-27] MEDS: VITAMINS A AND D OINT 42 GM TUBE TP SCH (09:22)
[2022-03-27 10:30] VITALS: O2SAT 97
[2022-03-27 19:00] VITALS: O2SAT 99
[2022-03-27 19:57] VITALS: TEMP 97.9
[2022-03-27] MEDS: MINERAL OIL/PETROLAT OPHT OINT 3.5 GM TUBE EACHEYE SCH (21:00)
[2022-03-27] MEDS: PROTEIN SUPPLEMENT (PROSTAT) 30 ML LIQUID GT SCH (21:00)
[2022-03-27] MEDS: OSMOLITE 1.2 CAL 1,000 ML LIQUID GT PRN (21:16)
[2022-03-28] MEDS: POLYVINYL ALCOHOL OPHT DROPS 15 ML BOTTLE EACHEYE SCH ×6 (03:30→23:30)
[2022-03-28] MEDS: LEVOTHYROXINE SODIUM 125 MCG TABLET PO SCH (06:02)
[2022-03-28] MEDS: CALCIUM CARB/VITAMIN D 600-400 MG TABLET GT SCH ×2 (06:02→18:28)
[2022-03-28] MEDS: [UNRECOGNIZED DRUG - OTHER] GT SCH (06:02)
[2022-03-28] MEDS: FAMOTIDINE 20 MG TABLET GT SCH (06:02)
[2022-03-28] MEDS: CARBIDOPA/LEVODOPA 25-100MG TABLET GT SCH ×3 (06:02→21:05)
[2022-03-28 07:46] VITALS: TEMP 97.9
[2022-03-28] MEDS: [UNRECOGNIZED DRUG - OTHER] GT SCH (08:49)
[2022-03-28] MEDS: [UNRECOGNIZED DRUG - OTHER] GT SCH ×2 (08:49→21:04)
[2022-03-28] MEDS: VITAMINS A AND D OINT 42 GM TUBE TP SCH (08:51)
[2022-03-28] MEDS: COD LIVER OIL/ZINC OXIDE OINT 113 GM TUBE TP SCH ×2 (08:51→21:05)
[2022-03-28] MEDS: HYDROGEN PEROXIDE 3% 118 ML BOTTLE TP SCH ×2 (09:10→20:57)
[2022-03-28 20:00] VITALS: TEMP 97.8
[2022-03-28 20:35] VITALS: O2SAT 99
[2022-03-28] MEDS: PROTEIN SUPPLEMENT (PROSTAT) 30 ML LIQUID GT SCH (21:00)
[2022-03-28] MEDS: MINERAL OIL/PETROLAT OPHT OINT 3.5 GM TUBE EACHEYE SCH (21:04)
[2022-03-29] MEDS: OSMOLITE 1.2 CAL 1,000 ML LIQUID GT PRN (01:04)
[2022-03-29] MEDS: POLYVINYL ALCOHOL OPHT DROPS 15 ML BOTTLE EACHEYE SCH ×6 (03:30→23:30)
[2022-03-29] MEDS: [UNRECOGNIZED DRUG - OTHER] GT SCH (05:31)
[2022-03-29] MEDS: LEVOTHYROXINE SODIUM 125 MCG TABLET PO SCH (05:31)
[2022-03-29] MEDS: FAMOTIDINE 20 MG TABLET GT SCH (05:31)
[2022-03-29] MEDS: CALCIUM CARB/VITAMIN D 600-400 MG TABLET GT SCH ×2 (05:31→18:22)
[2022-03-29] MEDS: CARBIDOPA/LEVODOPA 25-100MG TABLET GT SCH ×3 (05:31→21:41)
[2022-03-29 07:27] VITALS: O2SAT 98
[2022-03-29 07:38] VITALS: TEMP 97.1
[2022-03-29] MEDS: [UNRECOGNIZED DRUG - OTHER] GT SCH (08:22)
[2022-03-29] MEDS: [UNRECOGNIZED DRUG - OTHER] GT SCH ×2 (08:22→21:00)
[2022-03-29] MEDS: VITAMINS A AND D OINT 42 GM TUBE TP SCH (08:23)
[2022-03-29] MEDS: COD LIVER OIL/ZINC OXIDE OINT 113 GM TUBE TP SCH ×2 (08:23→21:00)
[2022-03-29] MEDS: HYDROGEN PEROXIDE 3% 118 ML BOTTLE TP SCH ×2 (09:19→20:43)
[2022-03-29 20:00] VITALS: TEMP 97.9
[2022-03-29 20:35] VITALS: O2SAT 99
[2022-03-29] MEDS: PROTEIN SUPPLEMENT (PROSTAT) 30 ML LIQUID GT SCH (21:00)
[2022-03-29] MEDS: MINERAL OIL/PETROLAT OPHT OINT 3.5 GM TUBE EACHEYE SCH (21:00)
[2022-03-30] MEDS: POLYVINYL ALCOHOL OPHT DROPS 15 ML BOTTLE EACHEYE SCH ×6 (03:30→23:30)
[2022-03-30] MEDS: CALCIUM CARB/VITAMIN D 600-400 MG TABLET GT SCH ×2 (05:27→18:06)
[2022-03-30] MEDS: LEVOTHYROXINE SODIUM 125 MCG TABLET PO SCH (05:27)
[2022-03-30] MEDS: CARBIDOPA/LEVODOPA 25-100MG TABLET GT SCH ×3 (05:27→21:14)
[2022-03-30] MEDS: [UNRECOGNIZED DRUG - OTHER] GT SCH (05:27)
[2022-03-30] MEDS: FAMOTIDINE 20 MG TABLET GT SCH (05:32)
[2022-03-30] MEDS: OSMOLITE 1.2 CAL 1,000 ML LIQUID GT PRN (07:24)
[2022-03-30 07:59] VITALS: TEMP 97.7
[2022-03-30 08:50] VITALS: O2SAT 99
[2022-03-30] MEDS: [UNRECOGNIZED DRUG - OTHER] GT SCH ×2 (09:03→21:14)
[2022-03-30] MEDS: [UNRECOGNIZED DRUG - OTHER] GT SCH (09:03)
[2022-03-30] MEDS: VITAMINS A AND D OINT 42 GM TUBE TP SCH (09:04)
[2022-03-30] MEDS: COD LIVER OIL/ZINC OXIDE OINT 113 GM TUBE TP SCH ×2 (09:04→21:14)
[2022-03-30] MEDS: HYDROGEN PEROXIDE 3% 118 ML BOTTLE TP SCH ×2 (09:07→19:27)
[2022-03-30 20:00] VITALS: TEMP 98.3
[2022-03-30 20:40] VITALS: O2SAT 99
[2022-03-30] MEDS: MINERAL OIL/PETROLAT OPHT OINT 3.5 GM TUBE EACHEYE SCH (21:13)
[2022-03-30] MEDS: PROTEIN SUPPLEMENT (PROSTAT) 30 ML LIQUID GT SCH (21:14)
[2022-03-31] MEDS: POLYVINYL ALCOHOL OPHT DROPS 15 ML BOTTLE EACHEYE SCH ×6 (03:30→23:30)
[2022-03-31] MEDS: CALCIUM CARB/VITAMIN D 600-400 MG TABLET GT SCH ×2 (05:41→17:16)
[2022-03-31] MEDS: LEVOTHYROXINE SODIUM 125 MCG TABLET PO SCH (05:41)
[2022-03-31] MEDS: [UNRECOGNIZED DRUG - OTHER] GT SCH (05:41)
[2022-03-31] MEDS: FAMOTIDINE 20 MG TABLET GT SCH (05:41)
[2022-03-31] MEDS: CARBIDOPA/LEVODOPA 25-100MG TABLET GT SCH ×3 (05:41→22:29)
[2022-03-31] MEDS: HYDROGEN PEROXIDE 3% 118 ML BOTTLE TP SCH ×2 (06:30→19:12)
[2022-03-31 06:35] VITALS: O2SAT 99
[2022-03-31 08:01] VITALS: TEMP 98.5
[2022-03-31] MEDS: [UNRECOGNIZED DRUG - OTHER] GT SCH (08:33)
[2022-03-31] MEDS: [UNRECOGNIZED DRUG - OTHER] GT SCH ×2 (08:33→20:39)
[2022-03-31] MEDS: COD LIVER OIL/ZINC OXIDE OINT 113 GM TUBE TP SCH ×2 (08:34→20:40)
[2022-03-31] MEDS: VITAMINS A AND D OINT 42 GM TUBE TP SCH (08:34)
[2022-03-31] MEDS: OSMOLITE 1.2 CAL 1,000 ML LIQUID GT PRN (12:26)
[2022-03-31 20:20] VITALS: TEMP 98.6; O2SAT 99
[2022-03-31] MEDS: MINERAL OIL/PETROLAT OPHT OINT 3.5 GM TUBE EACHEYE SCH (20:39)
[2022-03-31] MEDS: PROTEIN SUPPLEMENT (PROSTAT) 30 ML LIQUID GT SCH (20:39)
[2022-04-01] MEDS: POLYVINYL ALCOHOL OPHT DROPS 15 ML BOTTLE EACHEYE SCH ×6 (04:12→23:30)
[2022-04-01] MEDS: CALCIUM CARB/VITAMIN D 600-400 MG TABLET GT SCH ×2 (05:25→18:53)
[2022-04-01] MEDS: [UNRECOGNIZED DRUG - OTHER] GT SCH (05:25)
[2022-04-01] MEDS: LEVOTHYROXINE SODIUM 125 MCG TABLET PO SCH (05:25)
[2022-04-01] MEDS: CARBIDOPA/LEVODOPA 25-100MG TABLET GT SCH ×3 (05:25→21:17)
[2022-04-01] MEDS: FAMOTIDINE 20 MG TABLET GT SCH (05:33)
[2022-04-01 07:28] VITALS: TEMP 98
[2022-04-01] MEDS: [UNRECOGNIZED DRUG - OTHER] GT SCH (08:38)
[2022-04-01] MEDS: [UNRECOGNIZED DRUG - OTHER] GT SCH ×2 (08:38→21:16)
[2022-04-01] MEDS: VITAMINS A AND D OINT 42 GM TUBE TP SCH (08:38)
[2022-04-01] MEDS: COD LIVER OIL/ZINC OXIDE OINT 113 GM TUBE TP SCH ×2 (08:38→21:17)
[2022-04-01] MEDS: HYDROGEN PEROXIDE 3% 118 ML BOTTLE TP SCH ×2 (09:00→21:24)
[2022-04-01] MEDS: OSMOLITE 1.2 CAL 1,000 ML LIQUID GT PRN (09:46)
[2022-04-01 10:35] VITALS: O2SAT 97
[2022-04-01 19:59] VITALS: TEMP 97.9
[2022-04-01] MEDS: PROTEIN SUPPLEMENT (PROSTAT) 30 ML LIQUID GT SCH (21:00)
[2022-04-01 21:12] VITALS: O2SAT 99
[2022-04-01] MEDS: MINERAL OIL/PETROLAT OPHT OINT 3.5 GM TUBE EACHEYE SCH (21:16)
[2022-04-02] MEDS: POLYVINYL ALCOHOL OPHT DROPS 15 ML BOTTLE EACHEYE SCH ×6 (04:13→23:30)
[2022-04-02] MEDS: CALCIUM CARB/VITAMIN D 600-400 MG TABLET GT SCH ×2 (05:14→17:18)
[2022-04-02] MEDS: [UNRECOGNIZED DRUG - OTHER] GT SCH (05:14)
[2022-04-02] MEDS: LEVOTHYROXINE SODIUM 125 MCG TABLET PO SCH (05:15)
[2022-04-02] MEDS: CARBIDOPA/LEVODOPA 25-100MG TABLET GT SCH ×3 (05:15→22:02)
[2022-04-02] MEDS: FAMOTIDINE 20 MG TABLET GT SCH (05:52)
[2022-04-02 07:14] VITALS: TEMP 97.6
[2022-04-02 07:26] VITALS: O2SAT 98
[2022-04-02] MEDS: HYDROGEN PEROXIDE 3% 118 ML BOTTLE TP SCH ×2 (07:26→20:30)
[2022-04-02] MEDS: [UNRECOGNIZED DRUG - OTHER] GT SCH ×2 (09:35→20:34)
[2022-04-02] MEDS: VITAMINS A AND D OINT 42 GM TUBE TP SCH (09:36)
[2022-04-02] MEDS: [UNRECOGNIZED DRUG - OTHER] GT SCH (09:36)
[2022-04-02] MEDS: COD LIVER OIL/ZINC OXIDE OINT 113 GM TUBE TP SCH ×2 (09:36→20:35)
[2022-04-02] MEDS: OSMOLITE 1.2 CAL 1,000 ML LIQUID GT PRN (13:39)
[2022-04-02 15:27] VITALS: O2SAT 98
[2022-04-02] MEDS: diphenhydrAMINE 25 MG/10 ML UDC GT PRN (17:42)
[2022-04-02 19:52] VITALS: TEMP 98
[2022-04-02 20:30] VITALS: O2SAT 99
[2022-04-02] MEDS: MINERAL OIL/PETROLAT OPHT OINT 3.5 GM TUBE EACHEYE SCH (20:34)
[2022-04-02] MEDS: PROTEIN SUPPLEMENT (PROSTAT) 30 ML LIQUID GT SCH (20:35)
[2022-04-03] MEDS: POLYVINYL ALCOHOL OPHT DROPS 15 ML BOTTLE EACHEYE SCH ×6 (03:30→23:30)
[2022-04-03] MEDS: LEVOTHYROXINE SODIUM 125 MCG TABLET PO SCH (05:01)
[2022-04-03] MEDS: CARBIDOPA/LEVODOPA 25-100MG TABLET GT SCH ×3 (05:01→21:03)
[2022-04-03] MEDS: [UNRECOGNIZED DRUG - OTHER] GT SCH (05:01)
[2022-04-03] MEDS: CALCIUM CARB/VITAMIN D 600-400 MG TABLET GT SCH ×2 (05:01→18:05)
[2022-04-03] MEDS: ALENDRONATE SODIUM 70 MG GT SCH (05:57)
[2022-04-03] MEDS: FAMOTIDINE 20 MG TABLET GT SCH (05:58)
[2022-04-03 07:25] VITALS: TEMP 98.8
[2022-04-03] MEDS: [UNRECOGNIZED DRUG - OTHER] GT SCH (08:00)
[2022-04-03] MEDS: [UNRECOGNIZED DRUG - OTHER] GT SCH ×2 (08:00→21:02)
[2022-04-03] MEDS: VITAMINS A AND D OINT 42 GM TUBE TP SCH (08:01)
[2022-04-03] MEDS: COD LIVER OIL/ZINC OXIDE OINT 113 GM TUBE TP SCH ×2 (08:01→21:03)
[2022-04-03] MEDS: HYDROGEN PEROXIDE 3% 118 ML BOTTLE TP SCH ×2 (08:12→21:36)
[2022-04-03 08:13] VITALS: O2SAT 98
[2022-04-03] MEDS: LOPERAMIDE HCL 2 MG/15 ML GT PRN (09:30)
[2022-04-03 20:00] VITALS: TEMP 98.7
[2022-04-03] MEDS: MINERAL OIL/PETROLAT OPHT OINT 3.5 GM TUBE EACHEYE SCH (21:02)
[2022-04-03] MEDS: PROTEIN SUPPLEMENT (PROSTAT) 30 ML LIQUID GT SCH (21:02)
[2022-04-03 22:13] VITALS: O2SAT 99
[2022-04-04] MEDS: OSMOLITE 1.2 CAL 1,000 ML LIQUID GT PRN (02:00)
[2022-04-04] MEDS: POLYVINYL ALCOHOL OPHT DROPS 15 ML BOTTLE EACHEYE SCH ×5 (03:34→20:01)
[2022-04-04] MEDS: CARBIDOPA/LEVODOPA 25-100MG TABLET GT SCH ×3 (05:56→21:34)
[2022-04-04] MEDS: [UNRECOGNIZED DRUG - OTHER] GT SCH (05:56)
[2022-04-04] MEDS: FAMOTIDINE 20 MG TABLET GT SCH (05:56)
[2022-04-04] MEDS: LEVOTHYROXINE SODIUM 125 MCG TABLET PO SCH (05:56)
[2022-04-04] MEDS: CALCIUM CARB/VITAMIN D 600-400 MG TABLET GT SCH ×2 (05:56→17:10)
[2022-04-04 07:21] VITALS: TEMP 98.7
[2022-04-04] MEDS: HYDROGEN PEROXIDE 3% 118 ML BOTTLE TP SCH ×2 (07:36→19:47)
[2022-04-04 07:39] VITALS: O2SAT 98
[2022-04-04] MEDS: VITAMINS A AND D OINT 42 GM TUBE TP SCH (08:52)
[2022-04-04] MEDS: [UNRECOGNIZED DRUG - OTHER] GT SCH (08:52)
[2022-04-04] MEDS: [UNRECOGNIZED DRUG - OTHER] GT SCH ×2 (08:52→20:01)
[2022-04-04] MEDS: COD LIVER OIL/ZINC OXIDE OINT 113 GM TUBE TP SCH ×2 (08:52→20:02)
[2022-04-04] MEDS: LOPERAMIDE HCL 2 MG/15 ML GT PRN (08:53)
[2022-04-04 20:00] VITALS: TEMP 97.5
[2022-04-04] MEDS: MINERAL OIL/PETROLAT OPHT OINT 3.5 GM TUBE EACHEYE SCH (20:01)
[2022-04-04] MEDS: PROTEIN SUPPLEMENT (PROSTAT) 30 ML LIQUID GT SCH (20:02)
[2022-04-04 20:50] VITALS: O2SAT 99
[2022-04-05] MEDS: POLYVINYL ALCOHOL OPHT DROPS 15 ML BOTTLE EACHEYE SCH ×6 (00:27→20:16)
[2022-04-05] MEDS: OSMOLITE 1.2 CAL 1,000 ML LIQUID GT PRN (00:33)
[2022-04-05] MEDS: LEVOTHYROXINE SODIUM 125 MCG TABLET PO SCH (05:14)
[2022-04-05] MEDS: CALCIUM CARB/VITAMIN D 600-400 MG TABLET GT SCH ×2 (05:14→17:14)
[2022-04-05] MEDS: CARBIDOPA/LEVODOPA 25-100MG TABLET GT SCH ×3 (05:14→21:36)
[2022-04-05] MEDS: [UNRECOGNIZED DRUG - OTHER] GT SCH (05:14)
[2022-04-05] MEDS: FAMOTIDINE 20 MG TABLET GT SCH (05:40)
[2022-04-05 07:50] VITALS: TEMP 98.7
[2022-04-05] MEDS: [UNRECOGNIZED DRUG - OTHER] GT SCH (08:57)
[2022-04-05] MEDS: VITAMINS A AND D OINT 42 GM TUBE TP SCH (08:57)
[2022-04-05] MEDS: [UNRECOGNIZED DRUG - OTHER] GT SCH ×2 (08:57→20:16)
[2022-04-05] MEDS: LOPERAMIDE HCL 2 MG/15 ML GT PRN (08:57)
[2022-04-05] MEDS: COD LIVER OIL/ZINC OXIDE OINT 113 GM TUBE TP SCH ×2 (08:57→20:17)
[2022-04-05] MEDS: HYDROGEN PEROXIDE 3% 118 ML BOTTLE TP SCH ×2 (09:00→21:22)
[2022-04-05 14:56] VITALS: O2SAT 98
[2022-04-05 19:59] VITALS: TEMP 98.2
[2022-04-05] MEDS: MINERAL OIL/PETROLAT OPHT OINT 3.5 GM TUBE EACHEYE SCH (20:16)
[2022-04-05] MEDS: PROTEIN SUPPLEMENT (PROSTAT) 30 ML LIQUID GT SCH (20:17)
[2022-04-05 22:10] VITALS: O2SAT 99
[2022-04-06] MEDS: POLYVINYL ALCOHOL OPHT DROPS 15 ML BOTTLE EACHEYE SCH ×7 (00:24→23:46)
[2022-04-06] MEDS: OSMOLITE 1.2 CAL 1,000 ML LIQUID GT PRN (02:01)
[2022-04-06] MEDS: LEVOTHYROXINE SODIUM 125 MCG TABLET PO SCH (05:32)
[2022-04-06] MEDS: FAMOTIDINE 20 MG TABLET GT SCH (05:32)
[2022-04-06] MEDS: CALCIUM CARB/VITAMIN D 600-400 MG TABLET GT SCH ×2 (05:32→17:17)
[2022-04-06] MEDS: CARBIDOPA/LEVODOPA 25-100MG TABLET GT SCH ×3 (05:32→22:01)
[2022-04-06] MEDS: [UNRECOGNIZED DRUG - OTHER] GT SCH (05:32)
[2022-04-06 07:50] VITALS: TEMP 97.6
[2022-04-06] MEDS: [UNRECOGNIZED DRUG - OTHER] GT SCH (08:06)
[2022-04-06] MEDS: VITAMINS A AND D OINT 42 GM TUBE TP SCH (08:06)
[2022-04-06] MEDS: [UNRECOGNIZED DRUG - OTHER] GT SCH ×2 (08:06→20:10)
[2022-04-06] MEDS: COD LIVER OIL/ZINC OXIDE OINT 113 GM TUBE TP SCH ×2 (08:06→20:10)
[2022-04-06] MEDS: HYDROGEN PEROXIDE 3% 118 ML BOTTLE TP SCH ×2 (08:22→19:00)
[2022-04-06 10:30] VITALS: O2SAT 98
[2022-04-06 19:25] VITALS: O2SAT 98
[2022-04-06 20:00] VITALS: TEMP 97.9
[2022-04-06] MEDS: PROTEIN SUPPLEMENT (PROSTAT) 30 ML LIQUID GT SCH (20:10)
[2022-04-06] MEDS: MINERAL OIL/PETROLAT OPHT OINT 3.5 GM TUBE EACHEYE SCH (20:10)
[2022-04-07] MEDS: OSMOLITE 1.2 CAL 1,000 ML LIQUID GT PRN (02:57)
[2022-04-07] MEDS: POLYVINYL ALCOHOL OPHT DROPS 15 ML BOTTLE EACHEYE SCH ×6 (03:30→23:30)
[2022-04-07] MEDS: LEVOTHYROXINE SODIUM 125 MCG TABLET PO SCH (05:02)
[2022-04-07] MEDS: CARBIDOPA/LEVODOPA 25-100MG TABLET GT SCH ×3 (05:02→22:21)
[2022-04-07] MEDS: [UNRECOGNIZED DRUG - OTHER] GT SCH (05:02)
[2022-04-07] MEDS: CALCIUM CARB/VITAMIN D 600-400 MG TABLET GT SCH ×2 (05:02→17:58)
[2022-04-07] MEDS: FAMOTIDINE 20 MG TABLET GT SCH (06:11)
[2022-04-07 07:33] VITALS: TEMP 98.6
[2022-04-07] MEDS: HYDROGEN PEROXIDE 3% 118 ML BOTTLE TP SCH ×2 (08:28→21:05)
[2022-04-07] MEDS: [UNRECOGNIZED DRUG - OTHER] GT SCH ×2 (08:47→20:49)
[2022-04-07] MEDS: [UNRECOGNIZED DRUG - OTHER] GT SCH (08:47)
[2022-04-07] MEDS: COD LIVER OIL/ZINC OXIDE OINT 113 GM TUBE TP SCH ×2 (08:47→20:50)
[2022-04-07] MEDS: VITAMINS A AND D OINT 42 GM TUBE TP SCH (08:48)
[2022-04-07 14:08] VITALS: O2SAT 98
[2022-04-07 18:47] VITALS: TEMP 98.6
[2022-04-07 19:35] VITALS: O2SAT 98
[2022-04-07 19:57] VITALS: TEMP 98.7
[2022-04-07 20:00] VITALS: TEMP 97.6
[2022-04-07] MEDS: MINERAL OIL/PETROLAT OPHT OINT 3.5 GM TUBE EACHEYE SCH (20:49)
[2022-04-07] MEDS: PROTEIN SUPPLEMENT (PROSTAT) 30 ML LIQUID GT SCH (20:50)
[2022-04-08] MEDS: POLYVINYL ALCOHOL OPHT DROPS 15 ML BOTTLE EACHEYE SCH ×6 (03:36→21:59)
[2022-04-08] MEDS: LEVOTHYROXINE SODIUM 125 MCG TABLET PO SCH (05:00)
[2022-04-08] MEDS: [UNRECOGNIZED DRUG - OTHER] GT SCH (05:00)
[2022-04-08] MEDS: CALCIUM CARB/VITAMIN D 600-400 MG TABLET GT SCH ×2 (05:00→17:07)
[2022-04-08] MEDS: CARBIDOPA/LEVODOPA 25-100MG TABLET GT SCH ×3 (05:00→21:58)
[2022-04-08] MEDS: FAMOTIDINE 20 MG TABLET GT SCH (05:48)
[2022-04-08 07:26] VITALS: TEMP 98.5
[2022-04-08] MEDS: HYDROGEN PEROXIDE 3% 118 ML BOTTLE TP SCH ×2 (08:03→21:30)
[2022-04-08] MEDS: [UNRECOGNIZED DRUG - OTHER] GT SCH ×2 (08:55→21:56)
[2022-04-08] MEDS: COD LIVER OIL/ZINC OXIDE OINT 113 GM TUBE TP SCH ×2 (08:56→21:56)
[2022-04-08] MEDS: VITAMINS A AND D OINT 42 GM TUBE TP SCH (08:56)
[2022-04-08] MEDS: [UNRECOGNIZED DRUG - OTHER] GT SCH (08:56)
[2022-04-08] MEDS: OSMOLITE 1.2 CAL 1,000 ML LIQUID GT PRN (08:57)
[2022-04-08] MEDS: diphenhydrAMINE 25 MG/10 ML UDC GT PRN (08:57)
[2022-04-08 15:04] VITALS: O2SAT 98
[2022-04-08 20:00] VITALS: TEMP 97.6
[2022-04-08] MEDS: MINERAL OIL/PETROLAT OPHT OINT 3.5 GM TUBE EACHEYE SCH (21:56)
[2022-04-08] MEDS: PROTEIN SUPPLEMENT (PROSTAT) 30 ML LIQUID GT SCH (21:56)
[2022-04-08 22:00] VITALS: TEMP 97.6
[2022-04-08 23:00] VITALS: O2SAT 98
[2022-04-09 02:00] VITALS: BP 141/50; TEMP 97.6; O2SAT 99
[2022-04-09] MEDS: POLYVINYL ALCOHOL OPHT DROPS 15 ML BOTTLE EACHEYE SCH ×6 (03:30→23:34)
[2022-04-09] MEDS: LEVOTHYROXINE SODIUM 125 MCG TABLET PO SCH (05:34)
[2022-04-09] MEDS: CALCIUM CARB/VITAMIN D 600-400 MG TABLET GT SCH ×2 (05:34→18:01)
[2022-04-09] MEDS: CARBIDOPA/LEVODOPA 25-100MG TABLET GT SCH ×3 (05:34→21:40)
[2022-04-09] MEDS: FAMOTIDINE 20 MG TABLET GT SCH (05:35)
[2022-04-09] MEDS: [UNRECOGNIZED DRUG - OTHER] GT SCH (05:36)
[2022-04-09 07:27] VITALS: TEMP 98.8
[2022-04-09] MEDS: HYDROGEN PEROXIDE 3% 118 ML BOTTLE TP SCH ×2 (08:22→20:22)
[2022-04-09] MEDS: [UNRECOGNIZED DRUG - OTHER] GT SCH (09:53)
[2022-04-09] MEDS: COD LIVER OIL/ZINC OXIDE OINT 113 GM TUBE TP SCH ×2 (09:53→21:39)
[2022-04-09] MEDS: [UNRECOGNIZED DRUG - OTHER] GT SCH ×2 (09:53→21:39)
[2022-04-09] MEDS: VITAMINS A AND D OINT 42 GM TUBE TP SCH (09:53)
[2022-04-09] MEDS: OSMOLITE 1.2 CAL 1,000 ML LIQUID GT PRN (11:20)
[2022-04-09 17:48] VITALS: O2SAT 98
[2022-04-09 20:25] VITALS: TEMP 98.2
[2022-04-09 20:45] VITALS: O2SAT 98
[2022-04-09] MEDS: PROTEIN SUPPLEMENT (PROSTAT) 30 ML LIQUID GT SCH (21:00)
[2022-04-09] MEDS: MINERAL OIL/PETROLAT OPHT OINT 3.5 GM TUBE EACHEYE SCH (21:37)
[2022-04-10] MEDS: POLYVINYL ALCOHOL OPHT DROPS 15 ML BOTTLE EACHEYE SCH ×6 (03:30→23:30)
[2022-04-10] MEDS: ALENDRONATE SODIUM 70 MG GT SCH (05:29)
[2022-04-10] MEDS: CALCIUM CARB/VITAMIN D 600-400 MG TABLET GT SCH ×2 (05:29→17:09)
[2022-04-10] MEDS: CARBIDOPA/LEVODOPA 25-100MG TABLET GT SCH ×3 (05:30→21:26)
[2022-04-10] MEDS: [UNRECOGNIZED DRUG - OTHER] GT SCH (05:30)
[2022-04-10] MEDS: FAMOTIDINE 20 MG TABLET GT SCH (05:30)
[2022-04-10] MEDS: LEVOTHYROXINE SODIUM 125 MCG TABLET PO SCH (05:30)
[2022-04-10 07:10] VITALS: O2SAT 98
[2022-04-10 07:24] VITALS: TEMP 97.7
[2022-04-10] MEDS: HYDROGEN PEROXIDE 3% 118 ML BOTTLE TP SCH ×2 (07:27→19:22)
[2022-04-10] MEDS: VITAMINS A AND D OINT 42 GM TUBE TP SCH (08:47)
[2022-04-10] MEDS: [UNRECOGNIZED DRUG - OTHER] GT SCH ×2 (08:47→20:40)
[2022-04-10] MEDS: [UNRECOGNIZED DRUG - OTHER] GT SCH (08:47)
[2022-04-10] MEDS: COD LIVER OIL/ZINC OXIDE OINT 113 GM TUBE TP SCH ×2 (08:47→20:40)
[2022-04-10] MEDS: LOPERAMIDE HCL 2 MG/15 ML GT PRN (08:48)
[2022-04-10] MEDS: diphenhydrAMINE 25 MG/10 ML UDC GT PRN (13:08)
[2022-04-10] MEDS: OSMOLITE 1.2 CAL 1,000 ML LIQUID GT PRN (17:10)
[2022-04-10 19:34] VITALS: O2SAT 98
[2022-04-10 20:10] VITALS: TEMP 97.2
[2022-04-10] MEDS: PROTEIN SUPPLEMENT (PROSTAT) 30 ML LIQUID GT SCH (20:39)
[2022-04-10] MEDS: MINERAL OIL/PETROLAT OPHT OINT 3.5 GM TUBE EACHEYE SCH (20:54)
[2022-04-11] MEDS: POLYVINYL ALCOHOL OPHT DROPS 15 ML BOTTLE EACHEYE SCH ×6 (03:34→23:12)
[2022-04-11] MEDS: CALCIUM CARB/VITAMIN D 600-400 MG TABLET GT SCH ×2 (05:13→17:15)
[2022-04-11] MEDS: CARBIDOPA/LEVODOPA 25-100MG TABLET GT SCH ×3 (05:13→21:32)
[2022-04-11] MEDS: LEVOTHYROXINE SODIUM 125 MCG TABLET PO SCH (05:13)
[2022-04-11] MEDS: [UNRECOGNIZED DRUG - OTHER] GT SCH (05:13)
[2022-04-11] MEDS: FAMOTIDINE 20 MG TABLET GT SCH (06:04)
[2022-04-11 07:31] VITALS: O2SAT 98
[2022-04-11] MEDS: HYDROGEN PEROXIDE 3% 118 ML BOTTLE TP SCH ×2 (07:31→20:51)
[2022-04-11 07:39] VITALS: TEMP 97.2
[2022-04-11] MEDS: COD LIVER OIL/ZINC OXIDE OINT 113 GM TUBE TP SCH ×2 (08:51→20:24)
[2022-04-11] MEDS: VITAMINS A AND D OINT 42 GM TUBE TP SCH (08:51)
[2022-04-11] MEDS: [UNRECOGNIZED DRUG - OTHER] GT SCH (08:51)
[2022-04-11] MEDS: [UNRECOGNIZED DRUG - OTHER] GT SCH ×2 (08:51→20:24)
[2022-04-11] MEDS: OSMOLITE 1.2 CAL 1,000 ML LIQUID GT PRN (17:15)
[2022-04-11] MEDS: MINERAL OIL/PETROLAT OPHT OINT 3.5 GM TUBE EACHEYE SCH (20:24)
[2022-04-11] MEDS: PROTEIN SUPPLEMENT (PROSTAT) 30 ML LIQUID GT SCH (20:25)
[2022-04-11 20:33] VITALS: TEMP 98.2
[2022-04-11 21:01] VITALS: O2SAT 98
[2022-04-12] MEDS: POLYVINYL ALCOHOL OPHT DROPS 15 ML BOTTLE EACHEYE SCH ×6 (04:23→23:30)
[2022-04-12] MEDS: CALCIUM CARB/VITAMIN D 600-400 MG TABLET GT SCH ×2 (05:42→17:15)
[2022-04-12] MEDS: FAMOTIDINE 20 MG TABLET GT SCH (05:42)
[2022-04-12] MEDS: CARBIDOPA/LEVODOPA 25-100MG TABLET GT SCH ×3 (05:42→21:17)
[2022-04-12] MEDS: [UNRECOGNIZED DRUG - OTHER] GT SCH (05:42)
[2022-04-12] MEDS: LEVOTHYROXINE SODIUM 125 MCG TABLET PO SCH (05:42)
[2022-04-12 07:34] VITALS: TEMP 98.3
[2022-04-12] MEDS: [UNRECOGNIZED DRUG - OTHER] GT SCH ×2 (09:04→21:00)
[2022-04-12] MEDS: [UNRECOGNIZED DRUG - OTHER] GT SCH (09:05)
[2022-04-12] MEDS: COD LIVER OIL/ZINC OXIDE OINT 113 GM TUBE TP SCH ×2 (09:05→21:00)
[2022-04-12] MEDS: VITAMINS A AND D OINT 42 GM TUBE TP SCH (09:05)
[2022-04-12] MEDS: diphenhydrAMINE 25 MG/10 ML UDC GT PRN (09:05)
[2022-04-12 09:10] VITALS: O2SAT 98
[2022-04-12] MEDS: HYDROGEN PEROXIDE 3% 118 ML BOTTLE TP SCH ×2 (09:10→19:24)
[2022-04-12] MEDS: OSMOLITE 1.2 CAL 1,000 ML LIQUID GT PRN (17:15)
[2022-04-12 20:36] VITALS: TEMP 98.4
[2022-04-12 20:50] VITALS: O2SAT 98
[2022-04-12] MEDS: MINERAL OIL/PETROLAT OPHT OINT 3.5 GM TUBE EACHEYE SCH (21:00)
[2022-04-12] MEDS: PROTEIN SUPPLEMENT (PROSTAT) 30 ML LIQUID GT SCH (21:00)
[2022-04-13] MEDS: POLYVINYL ALCOHOL OPHT DROPS 15 ML BOTTLE EACHEYE SCH ×6 (03:30→23:30)
[2022-04-13] MEDS: CARBIDOPA/LEVODOPA 25-100MG TABLET GT SCH ×3 (05:07→21:37)
[2022-04-13] MEDS: LEVOTHYROXINE SODIUM 125 MCG TABLET PO SCH (05:07)
[2022-04-13] MEDS: [UNRECOGNIZED DRUG - OTHER] GT SCH (05:07)
[2022-04-13] MEDS: CALCIUM CARB/VITAMIN D 600-400 MG TABLET GT SCH ×2 (05:07→17:03)
[2022-04-13] MEDS: FAMOTIDINE 20 MG TABLET GT SCH (06:30)
[2022-04-13 07:38] VITALS: TEMP 98.5
[2022-04-13 08:30] VITALS: O2SAT 98
[2022-04-13] MEDS: [UNRECOGNIZED DRUG - OTHER] GT SCH (08:49)
[2022-04-13] MEDS: [UNRECOGNIZED DRUG - OTHER] GT SCH ×2 (08:49→21:00)
[2022-04-13] MEDS: COD LIVER OIL/ZINC OXIDE OINT 113 GM TUBE TP SCH ×2 (08:51→21:00)
[2022-04-13] MEDS: VITAMINS A AND D OINT 42 GM TUBE TP SCH (08:51)
[2022-04-13] MEDS: HYDROGEN PEROXIDE 3% 118 ML BOTTLE TP SCH ×2 (09:00→19:10)
[2022-04-13 11:00] VITALS: O2SAT 98
[2022-04-13] MEDS: OSMOLITE 1.2 CAL 1,000 ML LIQUID GT PRN (14:43)
[2022-04-13] MEDS: diphenhydrAMINE 25 MG/10 ML UDC GT PRN (14:43)
[2022-04-13 20:50] VITALS: O2SAT 98
[2022-04-13] MEDS: MINERAL OIL/PETROLAT OPHT OINT 3.5 GM TUBE EACHEYE SCH (21:00)
[2022-04-13] MEDS: PROTEIN SUPPLEMENT (PROSTAT) 30 ML LIQUID GT SCH (21:00)
[2022-04-13 22:39] VITALS: TEMP 98.7
[2022-04-14] MEDS: POLYVINYL ALCOHOL OPHT DROPS 15 ML BOTTLE EACHEYE SCH ×6 (03:30→23:27)
[2022-04-14] MEDS: CARBIDOPA/LEVODOPA 25-100MG TABLET GT SCH ×3 (05:54→22:04)
[2022-04-14] MEDS: CALCIUM CARB/VITAMIN D 600-400 MG TABLET GT SCH ×2 (05:54→17:21)
[2022-04-14] MEDS: FAMOTIDINE 20 MG TABLET GT SCH (05:54)
[2022-04-14] MEDS: LEVOTHYROXINE SODIUM 125 MCG TABLET PO SCH (05:54)
[2022-04-14] MEDS: [UNRECOGNIZED DRUG - OTHER] GT SCH (05:54)
[2022-04-14] MEDS: diphenhydrAMINE 25 MG/10 ML UDC GT PRN (06:07)
[2022-04-14 07:30] VITALS: O2SAT 98
[2022-04-14 07:59] VITALS: TEMP 98.9
[2022-04-14] MEDS: [UNRECOGNIZED DRUG - OTHER] GT SCH ×2 (08:34→21:13)
[2022-04-14] MEDS: COD LIVER OIL/ZINC OXIDE OINT 113 GM TUBE TP SCH ×2 (08:36→21:13)
[2022-04-14] MEDS: VITAMINS A AND D OINT 42 GM TUBE TP SCH (08:36)
[2022-04-14] MEDS: [UNRECOGNIZED DRUG - OTHER] GT SCH (08:36)
[2022-04-14] MEDS: HYDROGEN PEROXIDE 3% 118 ML BOTTLE TP SCH ×2 (09:35→19:17)
[2022-04-14 20:30] VITALS: O2SAT 98
[2022-04-14] MEDS: PROTEIN SUPPLEMENT (PROSTAT) 30 ML LIQUID GT SCH (21:13)
[2022-04-14] MEDS: MINERAL OIL/PETROLAT OPHT OINT 3.5 GM TUBE EACHEYE SCH (21:13)
[2022-04-14 23:27] VITALS: TEMP 98.9
[2022-04-15] MEDS: POLYVINYL ALCOHOL OPHT DROPS 15 ML BOTTLE EACHEYE SCH ×6 (03:30→23:36)
[2022-04-15] MEDS: [UNRECOGNIZED DRUG - OTHER] GT SCH (06:42)
[2022-04-15] MEDS: CALCIUM CARB/VITAMIN D 600-400 MG TABLET GT SCH ×2 (06:42→17:04)
[2022-04-15] MEDS: LEVOTHYROXINE SODIUM 125 MCG TABLET PO SCH (06:42)
[2022-04-15] MEDS: CARBIDOPA/LEVODOPA 25-100MG TABLET GT SCH ×3 (06:42→21:02)
[2022-04-15] MEDS: FAMOTIDINE 20 MG TABLET GT SCH (06:44)
[2022-04-15 07:30] VITALS: TEMP 98.5
[2022-04-15] MEDS: HYDROGEN PEROXIDE 3% 118 ML BOTTLE TP SCH ×2 (08:09→20:57)
[2022-04-15] MEDS: [UNRECOGNIZED DRUG - OTHER] GT SCH ×2 (08:21→21:02)
[2022-04-15] MEDS: [UNRECOGNIZED DRUG - OTHER] GT SCH (08:22)
[2022-04-15] MEDS: VITAMINS A AND D OINT 42 GM TUBE TP SCH (08:23)
[2022-04-15] MEDS: COD LIVER OIL/ZINC OXIDE OINT 113 GM TUBE TP SCH ×2 (08:23→21:02)
[2022-04-15 13:21] VITALS: O2SAT 98
[2022-04-15 19:35] VITALS: O2SAT 98
[2022-04-15 20:13] VITALS: TEMP 98
[2022-04-15] MEDS: PROTEIN SUPPLEMENT (PROSTAT) 30 ML LIQUID GT SCH (21:00)
[2022-04-15] MEDS: MINERAL OIL/PETROLAT OPHT OINT 3.5 GM TUBE EACHEYE SCH (21:02)
[2022-04-15] MEDS: OSMOLITE 1.2 CAL 1,000 ML LIQUID GT PRN (23:36)
[2022-04-16] MEDS: POLYVINYL ALCOHOL OPHT DROPS 15 ML BOTTLE EACHEYE SCH ×6 (04:03→23:30)
[2022-04-16] MEDS: CARBIDOPA/LEVODOPA 25-100MG TABLET GT SCH ×3 (05:18→21:04)
[2022-04-16] MEDS: CALCIUM CARB/VITAMIN D 600-400 MG TABLET GT SCH ×2 (05:18→17:10)
[2022-04-16] MEDS: [UNRECOGNIZED DRUG - OTHER] GT SCH (05:18)
[2022-04-16] MEDS: LEVOTHYROXINE SODIUM 125 MCG TABLET PO SCH (05:19)
[2022-04-16] MEDS: FAMOTIDINE 20 MG TABLET GT SCH (05:32)
[2022-04-16 07:19] VITALS: TEMP 98.9
[2022-04-16] MEDS: HYDROGEN PEROXIDE 3% 118 ML BOTTLE TP SCH ×2 (08:18→19:20)
[2022-04-16] MEDS: [UNRECOGNIZED DRUG - OTHER] GT SCH (09:00)
[2022-04-16] MEDS: COD LIVER OIL/ZINC OXIDE OINT 113 GM TUBE TP SCH ×2 (09:27→20:24)
[2022-04-16] MEDS: VITAMINS A AND D OINT 42 GM TUBE TP SCH (09:27)
[2022-04-16] MEDS: [UNRECOGNIZED DRUG - OTHER] GT SCH ×2 (09:27→20:24)
[2022-04-16 10:30] VITALS: O2SAT 98
[2022-04-16 20:03] VITALS: TEMP 99
[2022-04-16] MEDS: MINERAL OIL/PETROLAT OPHT OINT 3.5 GM TUBE EACHEYE SCH (20:24)
[2022-04-16] MEDS: PROTEIN SUPPLEMENT (PROSTAT) 30 ML LIQUID GT SCH (20:24)
[2022-04-16 20:46] VITALS: O2SAT 98
[2022-04-17] MEDS: POLYVINYL ALCOHOL OPHT DROPS 15 ML BOTTLE EACHEYE SCH ×6 (04:12→23:30)
[2022-04-17] MEDS: [UNRECOGNIZED DRUG - OTHER] GT SCH (05:15)
[2022-04-17] MEDS: LEVOTHYROXINE SODIUM 125 MCG TABLET PO SCH (05:15)
[2022-04-17] MEDS: CALCIUM CARB/VITAMIN D 600-400 MG TABLET GT SCH ×2 (05:15→17:22)
[2022-04-17] MEDS: CARBIDOPA/LEVODOPA 25-100MG TABLET GT SCH ×3 (05:15→21:02)
[2022-04-17] MEDS: ALENDRONATE SODIUM 70 MG GT SCH (05:15)
[2022-04-17] MEDS: FAMOTIDINE 20 MG TABLET GT SCH (05:36)
[2022-04-17 07:26] VITALS: TEMP 97.4
[2022-04-17] MEDS: HYDROGEN PEROXIDE 3% 118 ML BOTTLE TP SCH ×2 (08:15→20:39)
[2022-04-17 08:30] VITALS: BP 148/59; O2SAT 99
[2022-04-17] MEDS: COD LIVER OIL/ZINC OXIDE OINT 113 GM TUBE TP SCH ×2 (08:50→20:51)
[2022-04-17] MEDS: VITAMINS A AND D OINT 42 GM TUBE TP SCH (08:50)
[2022-04-17] MEDS: [UNRECOGNIZED DRUG - OTHER] GT SCH (08:50)
[2022-04-17] MEDS: [UNRECOGNIZED DRUG - OTHER] GT SCH ×2 (08:50→20:51)
[2022-04-17 12:00] VITALS: BP 116/62; O2SAT 98
[2022-04-17 17:26] VITALS: O2SAT 98
[2022-04-17 20:00] VITALS: TEMP 98.4
[2022-04-17 20:40] VITALS: O2SAT 98
[2022-04-17] MEDS: MINERAL OIL/PETROLAT OPHT OINT 3.5 GM TUBE EACHEYE SCH (20:51)
[2022-04-17] MEDS: PROTEIN SUPPLEMENT (PROSTAT) 30 ML LIQUID GT SCH (20:51)
[2022-04-17] MEDS: diphenhydrAMINE 25 MG/10 ML UDC GT PRN (20:53)
[2022-04-18] MEDS: POLYVINYL ALCOHOL OPHT DROPS 15 ML BOTTLE EACHEYE SCH ×6 (03:43→23:30)
[2022-04-18] MEDS: OSMOLITE 1.2 CAL 1,000 ML LIQUID GT PRN (06:00)
[2022-04-18] MEDS: CALCIUM CARB/VITAMIN D 600-400 MG TABLET GT SCH ×2 (06:06→17:30)
[2022-04-18] MEDS: FAMOTIDINE 20 MG TABLET GT SCH (06:06)
[2022-04-18] MEDS: [UNRECOGNIZED DRUG - OTHER] GT SCH (06:06)
[2022-04-18] MEDS: LEVOTHYROXINE SODIUM 125 MCG TABLET PO SCH (06:06)
[2022-04-18] MEDS: CARBIDOPA/LEVODOPA 25-100MG TABLET GT SCH ×3 (06:06→21:26)
[2022-04-18 07:20] VITALS: O2SAT 98
[2022-04-18] MEDS: HYDROGEN PEROXIDE 3% 118 ML BOTTLE TP SCH ×2 (07:20→19:53)
[2022-04-18 07:42] VITALS: TEMP 97.3
[2022-04-18] MEDS: VITAMINS A AND D OINT 42 GM TUBE TP SCH (08:20)
[2022-04-18] MEDS: COD LIVER OIL/ZINC OXIDE OINT 113 GM TUBE TP SCH ×2 (08:20→20:36)
[2022-04-18] MEDS: [UNRECOGNIZED DRUG - OTHER] GT SCH ×2 (08:20→20:35)
[2022-04-18] MEDS: [UNRECOGNIZED DRUG - OTHER] GT SCH (08:29)
[2022-04-18 20:13] VITALS: TEMP 97.4
[2022-04-18] MEDS: MINERAL OIL/PETROLAT OPHT OINT 3.5 GM TUBE EACHEYE SCH (20:35)
[2022-04-18] MEDS: PROTEIN SUPPLEMENT (PROSTAT) 30 ML LIQUID GT SCH (20:36)
[2022-04-18 20:50] VITALS: O2SAT 98
[2022-04-19] MEDS: OSMOLITE 1.2 CAL 1,000 ML LIQUID GT PRN (01:50)
[2022-04-19] MEDS: POLYVINYL ALCOHOL OPHT DROPS 15 ML BOTTLE EACHEYE SCH ×6 (04:05→23:30)
[2022-04-19] MEDS: CARBIDOPA/LEVODOPA 25-100MG TABLET GT SCH ×3 (05:11→21:23)
[2022-04-19] MEDS: CALCIUM CARB/VITAMIN D 600-400 MG TABLET GT SCH ×2 (05:11→17:00)
[2022-04-19] MEDS: LEVOTHYROXINE SODIUM 125 MCG TABLET PO SCH (05:11)
[2022-04-19] MEDS: [UNRECOGNIZED DRUG - OTHER] GT SCH (05:11)
[2022-04-19] MEDS: FAMOTIDINE 20 MG TABLET GT SCH (05:32)
[2022-04-19 07:36] VITALS: TEMP 98.4
[2022-04-19 07:40] VITALS: O2SAT 98
[2022-04-19] MEDS: COD LIVER OIL/ZINC OXIDE OINT 113 GM TUBE TP SCH ×2 (08:22→21:19)
[2022-04-19] MEDS: VITAMINS A AND D OINT 42 GM TUBE TP SCH (08:22)
[2022-04-19] MEDS: [UNRECOGNIZED DRUG - OTHER] GT SCH (08:22)
[2022-04-19] MEDS: [UNRECOGNIZED DRUG - OTHER] GT SCH ×2 (09:00→21:18)
[2022-04-19] MEDS: HYDROGEN PEROXIDE 3% 118 ML BOTTLE TP SCH ×2 (09:08→20:18)
[2022-04-19 20:00] VITALS: TEMP 97.2
[2022-04-19 21:00] VITALS: O2SAT 98
[2022-04-19] MEDS: PROTEIN SUPPLEMENT (PROSTAT) 30 ML LIQUID GT SCH (21:00)
[2022-04-19] MEDS: MINERAL OIL/PETROLAT OPHT OINT 3.5 GM TUBE EACHEYE SCH (21:17)
[2022-04-20] MEDS: POLYVINYL ALCOHOL OPHT DROPS 15 ML BOTTLE EACHEYE SCH ×5 (04:11→19:30)
[2022-04-20] MEDS: CALCIUM CARB/VITAMIN D 600-400 MG TABLET GT SCH ×2 (05:15→17:16)
[2022-04-20] MEDS: CARBIDOPA/LEVODOPA 25-100MG TABLET GT SCH ×3 (05:18→22:00)
[2022-04-20] MEDS: [UNRECOGNIZED DRUG - OTHER] GT SCH (05:18)
[2022-04-20] MEDS: LEVOTHYROXINE SODIUM 125 MCG TABLET PO SCH (05:18)
[2022-04-20] MEDS: FAMOTIDINE 20 MG TABLET GT SCH (06:41)
[2022-04-20 07:36] VITALS: TEMP 98.3
[2022-04-20] MEDS: HYDROGEN PEROXIDE 3% 118 ML BOTTLE TP SCH ×2 (08:18→20:50)
[2022-04-20] MEDS: [UNRECOGNIZED DRUG - OTHER] GT SCH ×2 (08:23→20:57)
[2022-04-20] MEDS: [UNRECOGNIZED DRUG - OTHER] GT SCH (08:23)
[2022-04-20] MEDS: COD LIVER OIL/ZINC OXIDE OINT 113 GM TUBE TP SCH ×2 (08:24→20:58)
[2022-04-20] MEDS: VITAMINS A AND D OINT 42 GM TUBE TP SCH (08:24)
[2022-04-20] MEDS: diphenhydrAMINE 25 MG/10 ML UDC GT PRN (08:25)
[2022-04-20 13:31] VITALS: O2SAT 98
[2022-04-20 20:00] VITALS: TEMP 97.9
[2022-04-20] MEDS: MINERAL OIL/PETROLAT OPHT OINT 3.5 GM TUBE EACHEYE SCH (20:57)
[2022-04-20] MEDS: PROTEIN SUPPLEMENT (PROSTAT) 30 ML LIQUID GT SCH (20:58)
[2022-04-20 21:30] VITALS: O2SAT 98
[2022-04-21] MEDS: POLYVINYL ALCOHOL OPHT DROPS 15 ML BOTTLE EACHEYE SCH ×7 (00:04→23:05)
[2022-04-21] MEDS: diphenhydrAMINE 25 MG/10 ML UDC GT PRN (00:07)
[2022-04-21] MEDS: OSMOLITE 1.2 CAL 1,000 ML LIQUID GT PRN (04:20)
[2022-04-21] MEDS: FAMOTIDINE 20 MG TABLET GT SCH (06:04)
[2022-04-21] MEDS: CARBIDOPA/LEVODOPA 25-100MG TABLET GT SCH ×3 (06:04→22:04)
[2022-04-21] MEDS: [UNRECOGNIZED DRUG - OTHER] GT SCH (06:04)
[2022-04-21] MEDS: CALCIUM CARB/VITAMIN D 600-400 MG TABLET GT SCH ×2 (06:04→18:21)
[2022-04-21] MEDS: LEVOTHYROXINE SODIUM 125 MCG TABLET PO SCH (06:04)
[2022-04-21 07:27] VITALS: TEMP 98.3
[2022-04-21] MEDS: HYDROGEN PEROXIDE 3% 118 ML BOTTLE TP SCH ×2 (08:24→19:15)
[2022-04-21] MEDS: [UNRECOGNIZED DRUG - OTHER] GT SCH (09:00)
[2022-04-21] MEDS: [UNRECOGNIZED DRUG - OTHER] GT SCH ×2 (09:00→21:00)
[2022-04-21] MEDS: VITAMINS A AND D OINT 42 GM TUBE TP SCH (09:37)
[2022-04-21] MEDS: COD LIVER OIL/ZINC OXIDE OINT 113 GM TUBE TP SCH ×2 (09:37→21:00)
[2022-04-21 13:31] VITALS: O2SAT 98
[2022-04-21 20:41] VITALS: TEMP 98.5
[2022-04-21] MEDS: MINERAL OIL/PETROLAT OPHT OINT 3.5 GM TUBE EACHEYE SCH (21:00)
[2022-04-21] MEDS: PROTEIN SUPPLEMENT (PROSTAT) 30 ML LIQUID GT SCH (21:00)
[2022-04-21 22:19] VITALS: O2SAT 98
[2022-04-22] MEDS: POLYVINYL ALCOHOL OPHT DROPS 15 ML BOTTLE EACHEYE SCH ×6 (03:30→22:42)
[2022-04-22] MEDS: CALCIUM CARB/VITAMIN D 600-400 MG TABLET GT SCH ×2 (06:36→17:40)
[2022-04-22] MEDS: CARBIDOPA/LEVODOPA 25-100MG TABLET GT SCH ×3 (06:36→22:41)
[2022-04-22] MEDS: [UNRECOGNIZED DRUG - OTHER] GT SCH (06:36)
[2022-04-22] MEDS: LEVOTHYROXINE SODIUM 125 MCG TABLET PO SCH (06:37)
[2022-04-22] MEDS: FAMOTIDINE 20 MG TABLET GT SCH (06:37)
[2022-04-22 07:23] VITALS: TEMP 97.4
[2022-04-22] MEDS: HYDROGEN PEROXIDE 3% 118 ML BOTTLE TP SCH ×2 (07:52→19:18)
[2022-04-22] MEDS: [UNRECOGNIZED DRUG - OTHER] GT SCH (09:00)
[2022-04-22] MEDS: [UNRECOGNIZED DRUG - OTHER] GT SCH ×2 (09:00→21:00)
[2022-04-22] MEDS: COD LIVER OIL/ZINC OXIDE OINT 113 GM TUBE TP SCH ×2 (09:37→21:00)
[2022-04-22] MEDS: VITAMINS A AND D OINT 42 GM TUBE TP SCH (09:38)
[2022-04-22 10:10] VITALS: O2SAT 98
[2022-04-22 19:52] VITALS: TEMP 98.2
[2022-04-22] MEDS: MINERAL OIL/PETROLAT OPHT OINT 3.5 GM TUBE EACHEYE SCH (21:00)
[2022-04-22 21:02] VITALS: O2SAT 98
[2022-04-23] MEDS: POLYVINYL ALCOHOL OPHT DROPS 15 ML BOTTLE EACHEYE SCH ×6 (03:30→23:30)
[2022-04-23] MEDS: CALCIUM CARB/VITAMIN D 600-400 MG TABLET GT SCH ×2 (06:11→18:06)
[2022-04-23] MEDS: [UNRECOGNIZED DRUG - OTHER] GT SCH (06:11)
[2022-04-23] MEDS: CARBIDOPA/LEVODOPA 25-100MG TABLET GT SCH ×3 (06:12→21:58)
[2022-04-23] MEDS: FAMOTIDINE 20 MG TABLET GT SCH (06:12)
[2022-04-23] MEDS: LEVOTHYROXINE SODIUM 125 MCG TABLET PO SCH (06:12)
[2022-04-23 07:21] VITALS: TEMP 97.8
[2022-04-23] MEDS: [UNRECOGNIZED DRUG - OTHER] GT SCH (09:00)
[2022-04-23] MEDS: HYDROGEN PEROXIDE 3% 118 ML BOTTLE TP SCH ×2 (09:00→19:24)
[2022-04-23] MEDS: COD LIVER OIL/ZINC OXIDE OINT 113 GM TUBE TP SCH ×2 (09:25→20:47)
[2022-04-23] MEDS: [UNRECOGNIZED DRUG - OTHER] GT SCH ×2 (09:25→20:46)
[2022-04-23] MEDS: VITAMINS A AND D OINT 42 GM TUBE TP SCH (09:25)
[2022-04-23] MEDS: OSMOLITE 1.2 CAL 1,000 ML LIQUID GT PRN (12:12)
[2022-04-23 13:43] VITALS: O2SAT 98
[2022-04-23 20:13] VITALS: TEMP 98.3
[2022-04-23 20:14] VITALS: TEMP 98.3
[2022-04-23 20:30] VITALS: O2SAT 98
[2022-04-23] MEDS: MINERAL OIL/PETROLAT OPHT OINT 3.5 GM TUBE EACHEYE SCH (20:46)
[2022-04-23] MEDS: PROTEIN SUPPLEMENT (PROSTAT) 30 ML LIQUID GT SCH (20:46)
[2022-04-24] MEDS: POLYVINYL ALCOHOL OPHT DROPS 15 ML BOTTLE EACHEYE SCH ×6 (03:30→23:10)
[2022-04-24] MEDS: [UNRECOGNIZED DRUG - OTHER] GT SCH (06:04)
[2022-04-24] MEDS: LEVOTHYROXINE SODIUM 125 MCG TABLET PO SCH (06:04)
[2022-04-24] MEDS: CARBIDOPA/LEVODOPA 25-100MG TABLET GT SCH ×3 (06:04→21:41)
[2022-04-24] MEDS: CALCIUM CARB/VITAMIN D 600-400 MG TABLET GT SCH ×2 (06:04→17:27)
[2022-04-24] MEDS: ALENDRONATE SODIUM 70 MG GT SCH (06:04)
[2022-04-24] MEDS: FAMOTIDINE 20 MG TABLET GT SCH (06:04)
[2022-04-24] MEDS: HYDROGEN PEROXIDE 3% 118 ML BOTTLE TP SCH ×2 (07:30→21:02)
[2022-04-24 08:00] VITALS: TEMP 97.4
[2022-04-24] MEDS: [UNRECOGNIZED DRUG - OTHER] GT SCH (09:00)
[2022-04-24] MEDS: [UNRECOGNIZED DRUG - OTHER] GT SCH ×2 (09:22→20:56)
[2022-04-24] MEDS: COD LIVER OIL/ZINC OXIDE OINT 113 GM TUBE TP SCH ×2 (09:24→20:56)
[2022-04-24] MEDS: VITAMINS A AND D OINT 42 GM TUBE TP SCH (09:25)
[2022-04-24 12:10] VITALS: O2SAT 98
[2022-04-24] MEDS: OSMOLITE 1.2 CAL 1,000 ML LIQUID GT PRN (16:54)
[2022-04-24] MEDS: MINERAL OIL/PETROLAT OPHT OINT 3.5 GM TUBE EACHEYE SCH (20:56)
[2022-04-24] MEDS: PROTEIN SUPPLEMENT (PROSTAT) 30 ML LIQUID GT SCH (20:56)
[2022-04-24 21:00] VITALS: O2SAT 98
[2022-04-24 21:04] VITALS: TEMP 97.6
[2022-04-25] MEDS: POLYVINYL ALCOHOL OPHT DROPS 15 ML BOTTLE EACHEYE SCH ×6 (03:30→23:32)
[2022-04-25] MEDS: CALCIUM CARB/VITAMIN D 600-400 MG TABLET GT SCH ×2 (05:27→17:59)
[2022-04-25] MEDS: LEVOTHYROXINE SODIUM 125 MCG TABLET PO SCH (05:27)
[2022-04-25] MEDS: CARBIDOPA/LEVODOPA 25-100MG TABLET GT SCH ×3 (05:27→22:45)
[2022-04-25] MEDS: [UNRECOGNIZED DRUG - OTHER] GT SCH (05:27)
[2022-04-25] MEDS: FAMOTIDINE 20 MG TABLET GT SCH (05:45)
[2022-04-25 08:00] VITALS: TEMP 97
[2022-04-25 08:05] VITALS: O2SAT 98
[2022-04-25] MEDS: [UNRECOGNIZED DRUG - OTHER] GT SCH ×2 (09:15→20:35)
[2022-04-25] MEDS: COD LIVER OIL/ZINC OXIDE OINT 113 GM TUBE TP SCH ×2 (09:16→20:36)
[2022-04-25] MEDS: [UNRECOGNIZED DRUG - OTHER] GT SCH (09:16)
[2022-04-25] MEDS: VITAMINS A AND D OINT 42 GM TUBE TP SCH (09:16)
[2022-04-25] MEDS: HYDROGEN PEROXIDE 3% 118 ML BOTTLE TP SCH ×2 (09:40→20:33)
[2022-04-25] MEDS: diphenhydrAMINE 25 MG/10 ML UDC GT PRN (14:19)
[2022-04-25 20:00] VITALS: TEMP 99.8
[2022-04-25 20:33] VITALS: O2SAT 99
[2022-04-25] MEDS: MINERAL OIL/PETROLAT OPHT OINT 3.5 GM TUBE EACHEYE SCH (20:35)
[2022-04-25] MEDS: PROTEIN SUPPLEMENT (PROSTAT) 30 ML LIQUID GT SCH (20:35)
[2022-04-25] MEDS: OSMOLITE 1.2 CAL 1,000 ML LIQUID GT PRN (23:32)
[2022-04-26] MEDS: POLYVINYL ALCOHOL OPHT DROPS 15 ML BOTTLE EACHEYE SCH ×5 (03:57→19:30)
[2022-04-26] MEDS: CALCIUM CARB/VITAMIN D 600-400 MG TABLET GT SCH ×2 (05:13→17:51)
[2022-04-26] MEDS: LEVOTHYROXINE SODIUM 125 MCG TABLET PO SCH (05:13)
[2022-04-26] MEDS: CARBIDOPA/LEVODOPA 25-100MG TABLET GT SCH ×3 (05:13→21:14)
[2022-04-26] MEDS: [UNRECOGNIZED DRUG - OTHER] GT SCH (05:13)
[2022-04-26] MEDS: FAMOTIDINE 20 MG TABLET GT SCH (06:29)
[2022-04-26 07:50] VITALS: TEMP 96.9
[2022-04-26] MEDS: [UNRECOGNIZED DRUG - OTHER] GT SCH (09:00)
[2022-04-26] MEDS: [UNRECOGNIZED DRUG - OTHER] GT SCH ×2 (09:23→21:07)
[2022-04-26] MEDS: COD LIVER OIL/ZINC OXIDE OINT 113 GM TUBE TP SCH ×2 (09:24→21:04)
[2022-04-26] MEDS: VITAMINS A AND D OINT 42 GM TUBE TP SCH (09:24)
[2022-04-26] MEDS: HYDROGEN PEROXIDE 3% 118 ML BOTTLE TP SCH ×2 (10:00→21:09)
[2022-04-26 19:50] VITALS: O2SAT 99
[2022-04-26 20:41] VITALS: TEMP 98.3
[2022-04-26] MEDS: PROTEIN SUPPLEMENT (PROSTAT) 30 ML LIQUID GT SCH (21:00)
[2022-04-26] MEDS: MINERAL OIL/PETROLAT OPHT OINT 3.5 GM TUBE EACHEYE SCH (21:04)
[2022-04-27] MEDS: POLYVINYL ALCOHOL OPHT DROPS 15 ML BOTTLE EACHEYE SCH ×7 (00:24→23:30)
[2022-04-27] MEDS: [UNRECOGNIZED DRUG - OTHER] GT SCH (05:15)
[2022-04-27] MEDS: CALCIUM CARB/VITAMIN D 600-400 MG TABLET GT SCH ×2 (05:15→17:32)
[2022-04-27] MEDS: LEVOTHYROXINE SODIUM 125 MCG TABLET PO SCH (05:15)
[2022-04-27] MEDS: CARBIDOPA/LEVODOPA 25-100MG TABLET GT SCH ×3 (05:15→21:01)
[2022-04-27] MEDS: FAMOTIDINE 20 MG TABLET GT SCH (05:16)
[2022-04-27] MEDS: OSMOLITE 1.2 CAL 1,000 ML LIQUID GT PRN (05:31)
[2022-04-27 07:39] VITALS: TEMP 97.3
[2022-04-27] MEDS: HYDROGEN PEROXIDE 3% 118 ML BOTTLE TP SCH ×2 (08:03→17:24)
[2022-04-27] MEDS: [UNRECOGNIZED DRUG - OTHER] GT SCH (08:51)
[2022-04-27] MEDS: COD LIVER OIL/ZINC OXIDE OINT 113 GM TUBE TP SCH ×2 (08:51→21:01)
[2022-04-27] MEDS: [UNRECOGNIZED DRUG - OTHER] GT SCH ×2 (08:51→21:01)
[2022-04-27] MEDS: VITAMINS A AND D OINT 42 GM TUBE TP SCH (09:28)
[2022-04-27] MEDS: diphenhydrAMINE 25 MG/10 ML UDC GT PRN (09:28)
[2022-04-27 09:45] VITALS: O2SAT 99
[2022-04-27 17:55] VITALS: O2SAT 99
[2022-04-27 20:23] VITALS: TEMP 99.1
[2022-04-27] MEDS: PROTEIN SUPPLEMENT (PROSTAT) 30 ML LIQUID GT SCH (21:00)
[2022-04-27] MEDS: MINERAL OIL/PETROLAT OPHT OINT 3.5 GM TUBE EACHEYE SCH (21:01)
[2022-04-27 23:45] VITALS: O2SAT 98
[2022-04-28] MEDS: POLYVINYL ALCOHOL OPHT DROPS 15 ML BOTTLE EACHEYE SCH ×6 (03:30→23:30)
[2022-04-28] MEDS: CALCIUM CARB/VITAMIN D 600-400 MG TABLET GT SCH ×2 (06:08→17:15)
[2022-04-28] MEDS: CARBIDOPA/LEVODOPA 25-100MG TABLET GT SCH ×3 (06:08→21:19)
[2022-04-28] MEDS: FAMOTIDINE 20 MG TABLET GT SCH (06:08)
[2022-04-28] MEDS: LEVOTHYROXINE SODIUM 125 MCG TABLET PO SCH (06:08)
[2022-04-28] MEDS: [UNRECOGNIZED DRUG - OTHER] GT SCH (06:08)
[2022-04-28 08:05] VITALS: TEMP 98.6
[2022-04-28] MEDS: HYDROGEN PEROXIDE 3% 118 ML BOTTLE TP SCH ×2 (08:10→20:46)
[2022-04-28] MEDS: [UNRECOGNIZED DRUG - OTHER] GT SCH ×2 (09:04→20:54)
[2022-04-28] MEDS: [UNRECOGNIZED DRUG - OTHER] GT SCH (09:04)
[2022-04-28] MEDS: VITAMINS A AND D OINT 42 GM TUBE TP SCH (09:05)
[2022-04-28] MEDS: COD LIVER OIL/ZINC OXIDE OINT 113 GM TUBE TP SCH ×2 (09:05→20:54)
[2022-04-28 10:35] VITALS: O2SAT 99
[2022-04-28] MEDS: OSMOLITE 1.2 CAL 1,000 ML LIQUID GT PRN (14:20)
[2022-04-28 20:00] VITALS: TEMP 97.2
[2022-04-28] MEDS: MINERAL OIL/PETROLAT OPHT OINT 3.5 GM TUBE EACHEYE SCH (20:54)
[2022-04-28] MEDS: PROTEIN SUPPLEMENT (PROSTAT) 30 ML LIQUID GT SCH (20:54)
[2022-04-29] MEDS: POLYVINYL ALCOHOL OPHT DROPS 15 ML BOTTLE EACHEYE SCH ×6 (03:30→23:30)
[2022-04-29] MEDS: CALCIUM CARB/VITAMIN D 600-400 MG TABLET GT SCH ×2 (05:05→17:12)
[2022-04-29] MEDS: LEVOTHYROXINE SODIUM 125 MCG TABLET PO SCH (05:05)
[2022-04-29] MEDS: [UNRECOGNIZED DRUG - OTHER] GT SCH (05:05)
[2022-04-29] MEDS: CARBIDOPA/LEVODOPA 25-100MG TABLET GT SCH ×3 (05:05→21:10)
[2022-04-29] MEDS: FAMOTIDINE 20 MG TABLET GT SCH (05:32)
[2022-04-29 07:33] VITALS: TEMP 98.4
[2022-04-29] MEDS: HYDROGEN PEROXIDE 3% 118 ML BOTTLE TP SCH ×2 (08:08→19:14)
[2022-04-29] MEDS: [UNRECOGNIZED DRUG - OTHER] GT SCH ×2 (08:22→21:10)
[2022-04-29] MEDS: VITAMINS A AND D OINT 42 GM TUBE TP SCH (08:22)
[2022-04-29] MEDS: diphenhydrAMINE 25 MG/10 ML UDC GT PRN (08:22)
[2022-04-29] MEDS: [UNRECOGNIZED DRUG - OTHER] GT SCH (08:22)
[2022-04-29] MEDS: COD LIVER OIL/ZINC OXIDE OINT 113 GM TUBE TP SCH ×2 (08:22→21:10)
[2022-04-29 13:25] VITALS: O2SAT 98
[2022-04-29] MEDS: OSMOLITE 1.2 CAL 1,000 ML LIQUID GT PRN (16:20)
[2022-04-29 20:21] VITALS: TEMP 98.6
[2022-04-29] MEDS: PROTEIN SUPPLEMENT (PROSTAT) 30 ML LIQUID GT SCH (21:00)
[2022-04-29] MEDS: MINERAL OIL/PETROLAT OPHT OINT 3.5 GM TUBE EACHEYE SCH (21:10)
[2022-04-30] MEDS: POLYVINYL ALCOHOL OPHT DROPS 15 ML BOTTLE EACHEYE SCH ×6 (03:30→23:26)
[2022-04-30] MEDS: LEVOTHYROXINE SODIUM 125 MCG TABLET PO SCH (05:05)
[2022-04-30] MEDS: CALCIUM CARB/VITAMIN D 600-400 MG TABLET GT SCH ×2 (05:05→17:19)
[2022-04-30] MEDS: [UNRECOGNIZED DRUG - OTHER] GT SCH (05:05)
[2022-04-30] MEDS: CARBIDOPA/LEVODOPA 25-100MG TABLET GT SCH ×3 (05:05→21:19)
[2022-04-30] MEDS: FAMOTIDINE 20 MG TABLET GT SCH (06:01)
[2022-04-30 07:27] VITALS: TEMP 98.7
[2022-04-30] MEDS: [UNRECOGNIZED DRUG - OTHER] GT SCH (08:47)
[2022-04-30] MEDS: COD LIVER OIL/ZINC OXIDE OINT 113 GM TUBE TP SCH ×2 (08:47→21:19)
[2022-04-30] MEDS: [UNRECOGNIZED DRUG - OTHER] GT SCH ×2 (08:47→21:19)
[2022-04-30] MEDS: VITAMINS A AND D OINT 42 GM TUBE TP SCH (08:47)
[2022-04-30 09:20] VITALS: O2SAT 99
[2022-04-30] MEDS: HYDROGEN PEROXIDE 3% 118 ML BOTTLE TP SCH ×2 (09:27→21:25)
[2022-04-30] MEDS: PROTEIN SUPPLEMENT (PROSTAT) 30 ML LIQUID GT SCH (21:00)
[2022-04-30 21:14] VITALS: TEMP 98.1
[2022-04-30] MEDS: OSMOLITE 1.2 CAL 1,000 ML LIQUID GT PRN (21:19)
[2022-04-30] MEDS: MINERAL OIL/PETROLAT OPHT OINT 3.5 GM TUBE EACHEYE SCH (21:19)
[2022-05-01] MEDS: POLYVINYL ALCOHOL OPHT DROPS 15 ML BOTTLE EACHEYE SCH ×6 (03:30→23:30)
[2022-05-01] MEDS: LEVOTHYROXINE SODIUM 125 MCG TABLET PO SCH ×2 (06:00→06:07)
[2022-05-01] MEDS: CALCIUM CARB/VITAMIN D 600-400 MG TABLET GT SCH ×2 (06:07→17:29)
[2022-05-01] MEDS: ALENDRONATE SODIUM 70 MG GT SCH (06:07)
[2022-05-01] MEDS: CARBIDOPA/LEVODOPA 25-100MG TABLET GT SCH ×3 (06:07→21:30)
[2022-05-01] MEDS: [UNRECOGNIZED DRUG - OTHER] GT SCH (06:07)
[2022-05-01] MEDS: FAMOTIDINE 20 MG TABLET GT SCH (06:07)
[2022-05-01 07:23] VITALS: TEMP 98.2
[2022-05-01] MEDS: HYDROGEN PEROXIDE 3% 118 ML BOTTLE TP SCH ×2 (07:25→19:21)
[2022-05-01] MEDS: [UNRECOGNIZED DRUG - OTHER] GT SCH (08:19)
[2022-05-01] MEDS: [UNRECOGNIZED DRUG - OTHER] GT SCH ×2 (08:19→21:30)
[2022-05-01] MEDS: COD LIVER OIL/ZINC OXIDE OINT 113 GM TUBE TP SCH ×2 (08:19→21:30)
[2022-05-01] MEDS: VITAMINS A AND D OINT 42 GM TUBE TP SCH (08:20)
[2022-05-01 10:15] VITALS: O2SAT 97
[2022-05-01 20:00] VITALS: TEMP 97.9
[2022-05-01 20:30] VITALS: O2SAT 97
[2022-05-01] MEDS: PROTEIN SUPPLEMENT (PROSTAT) 30 ML LIQUID GT SCH (21:00)
[2022-05-01] MEDS: MINERAL OIL/PETROLAT OPHT OINT 3.5 GM TUBE EACHEYE SCH (21:30)
[2022-05-02] MEDS: POLYVINYL ALCOHOL OPHT DROPS 15 ML BOTTLE EACHEYE SCH ×6 (03:30→23:30)
[2022-05-02] MEDS: OSMOLITE 1.2 CAL 1,000 ML LIQUID GT PRN (03:55)
[2022-05-02] MEDS: CARBIDOPA/LEVODOPA 25-100MG TABLET GT SCH ×3 (06:00→21:20)
[2022-05-02] MEDS: [UNRECOGNIZED DRUG - OTHER] GT SCH (06:00)
[2022-05-02] MEDS: LEVOTHYROXINE SODIUM 125 MCG TABLET PO SCH (06:00)
[2022-05-02] MEDS: CALCIUM CARB/VITAMIN D 600-400 MG TABLET GT SCH ×2 (06:00→17:35)
[2022-05-02] MEDS: FAMOTIDINE 20 MG TABLET GT SCH (06:00)
[2022-05-02 07:05] VITALS: O2SAT 98
[2022-05-02 07:30] VITALS: TEMP 97.6
[2022-05-02] MEDS: [UNRECOGNIZED DRUG - OTHER] GT SCH ×2 (08:39→21:19)
[2022-05-02] MEDS: [UNRECOGNIZED DRUG - OTHER] GT SCH (08:39)
[2022-05-02] MEDS: VITAMINS A AND D OINT 42 GM TUBE TP SCH (08:39)
[2022-05-02] MEDS: COD LIVER OIL/ZINC OXIDE OINT 113 GM TUBE TP SCH ×2 (08:39→21:19)
[2022-05-02] MEDS: HYDROGEN PEROXIDE 3% 118 ML BOTTLE TP SCH ×2 (09:00→19:48)
[2022-05-02 15:30] VITALS: O2SAT 98
[2022-05-02 20:12] VITALS: TEMP 99.1
[2022-05-02 20:30] VITALS: O2SAT 97
[2022-05-02] MEDS: PROTEIN SUPPLEMENT (PROSTAT) 30 ML LIQUID GT SCH (21:00)
[2022-05-02] MEDS: MINERAL OIL/PETROLAT OPHT OINT 3.5 GM TUBE EACHEYE SCH (21:19)
[2022-05-03] MEDS: POLYVINYL ALCOHOL OPHT DROPS 15 ML BOTTLE EACHEYE SCH ×6 (03:30→23:11)
[2022-05-03] MEDS: LEVOTHYROXINE SODIUM 125 MCG TABLET PO SCH (05:32)
[2022-05-03] MEDS: [UNRECOGNIZED DRUG - OTHER] GT SCH (05:32)
[2022-05-03] MEDS: CALCIUM CARB/VITAMIN D 600-400 MG TABLET GT SCH ×2 (05:32→17:11)
[2022-05-03] MEDS: CARBIDOPA/LEVODOPA 25-100MG TABLET GT SCH ×3 (05:32→21:24)
[2022-05-03] MEDS: FAMOTIDINE 20 MG TABLET GT SCH (05:33)
[2022-05-03 07:28] VITALS: O2SAT 98
[2022-05-03 07:53] VITALS: TEMP 97.8
[2022-05-03] MEDS: COD LIVER OIL/ZINC OXIDE OINT 113 GM TUBE TP SCH ×2 (08:33→21:24)
[2022-05-03] MEDS: [UNRECOGNIZED DRUG - OTHER] GT SCH (08:33)
[2022-05-03] MEDS: [UNRECOGNIZED DRUG - OTHER] GT SCH ×2 (08:33→21:24)
[2022-05-03] MEDS: VITAMINS A AND D OINT 42 GM TUBE TP SCH (08:34)
[2022-05-03] MEDS: diphenhydrAMINE 25 MG/10 ML UDC GT PRN (08:35)
[2022-05-03] MEDS: OSMOLITE 1.2 CAL 1,000 ML LIQUID GT PRN (08:40)
[2022-05-03] MEDS: HYDROGEN PEROXIDE 3% 118 ML BOTTLE TP SCH ×2 (09:09→21:00)
[2022-05-03 20:01] VITALS: TEMP 97.2
[2022-05-03] MEDS: PROTEIN SUPPLEMENT (PROSTAT) 30 ML LIQUID GT SCH (21:00)
[2022-05-03] MEDS: MINERAL OIL/PETROLAT OPHT OINT 3.5 GM TUBE EACHEYE SCH (21:24)
[2022-05-04] MEDS: POLYVINYL ALCOHOL OPHT DROPS 15 ML BOTTLE EACHEYE SCH ×6 (03:30→22:58)
[2022-05-04] MEDS: [UNRECOGNIZED DRUG - OTHER] GT SCH (05:31)
[2022-05-04] MEDS: CARBIDOPA/LEVODOPA 25-100MG TABLET GT SCH ×3 (05:31→21:46)
[2022-05-04] MEDS: CALCIUM CARB/VITAMIN D 600-400 MG TABLET GT SCH ×2 (05:31→17:26)
[2022-05-04] MEDS: LEVOTHYROXINE SODIUM 125 MCG TABLET PO SCH (05:32)
[2022-05-04] MEDS: FAMOTIDINE 20 MG TABLET GT SCH (05:32)
[2022-05-04 07:55] VITALS: TEMP 98
[2022-05-04] MEDS: HYDROGEN PEROXIDE 3% 118 ML BOTTLE TP SCH ×2 (08:04→19:16)
[2022-05-04] MEDS: OSMOLITE 1.2 CAL 1,000 ML LIQUID GT PRN ×2 (08:51→09:57)
[2022-05-04] MEDS: [UNRECOGNIZED DRUG - OTHER] GT SCH ×2 (08:51→21:46)
[2022-05-04] MEDS: COD LIVER OIL/ZINC OXIDE OINT 113 GM TUBE TP SCH ×2 (08:51→21:45)
[2022-05-04] MEDS: VITAMINS A AND D OINT 42 GM TUBE TP SCH (08:51)
[2022-05-04] MEDS: [UNRECOGNIZED DRUG - OTHER] GT SCH (08:51)
[2022-05-04 10:50] VITALS: O2SAT 97
[2022-05-04 19:48] VITALS: TEMP 97.4
[2022-05-04 21:15] VITALS: O2SAT 98
[2022-05-04] MEDS: PROTEIN SUPPLEMENT (PROSTAT) 30 ML LIQUID GT SCH (21:45)
[2022-05-04] MEDS: MINERAL OIL/PETROLAT OPHT OINT 3.5 GM TUBE EACHEYE SCH (21:45)
[2022-05-05] MEDS: POLYVINYL ALCOHOL OPHT DROPS 15 ML BOTTLE EACHEYE SCH ×6 (03:30→23:30)
[2022-05-05] MEDS: [UNRECOGNIZED DRUG - OTHER] GT SCH (05:00)
[2022-05-05] MEDS: CARBIDOPA/LEVODOPA 25-100MG TABLET GT SCH ×3 (05:00→21:38)
[2022-05-05] MEDS: LEVOTHYROXINE SODIUM 125 MCG TABLET PO SCH (05:00)
[2022-05-05] MEDS: CALCIUM CARB/VITAMIN D 600-400 MG TABLET GT SCH ×2 (05:00→18:15)
[2022-05-05] MEDS: FAMOTIDINE 20 MG TABLET GT SCH (05:17)
[2022-05-05 07:30] VITALS: TEMP 98.1
[2022-05-05] MEDS: HYDROGEN PEROXIDE 3% 118 ML BOTTLE TP SCH ×2 (08:02→21:33)
[2022-05-05] MEDS: [UNRECOGNIZED DRUG - OTHER] GT SCH ×2 (08:31→20:46)
[2022-05-05] MEDS: COD LIVER OIL/ZINC OXIDE OINT 113 GM TUBE TP SCH ×2 (08:32→20:47)
[2022-05-05] MEDS: VITAMINS A AND D OINT 42 GM TUBE TP SCH (08:32)
[2022-05-05] MEDS: [UNRECOGNIZED DRUG - OTHER] GT SCH (08:32)
[2022-05-05] MEDS: OSMOLITE 1.2 CAL 1,000 ML LIQUID GT PRN (12:53)
[2022-05-05 16:03] VITALS: O2SAT 98
[2022-05-05 19:10] VITALS: O2SAT 98
[2022-05-05 20:13] VITALS: TEMP 97.2
[2022-05-05] MEDS: MINERAL OIL/PETROLAT OPHT OINT 3.5 GM TUBE EACHEYE SCH (20:45)
[2022-05-05] MEDS: PROTEIN SUPPLEMENT (PROSTAT) 30 ML LIQUID GT SCH (20:47)
[2022-05-06] MEDS: diphenhydrAMINE 25 MG/10 ML UDC GT PRN (01:59)
[2022-05-06] MEDS: POLYVINYL ALCOHOL OPHT DROPS 15 ML BOTTLE EACHEYE SCH ×6 (03:30→23:30)
[2022-05-06] MEDS: [UNRECOGNIZED DRUG - OTHER] GT SCH (05:22)
[2022-05-06] MEDS: LEVOTHYROXINE SODIUM 125 MCG TABLET PO SCH (05:22)
[2022-05-06] MEDS: FAMOTIDINE 20 MG TABLET GT SCH (05:22)
[2022-05-06] MEDS: CALCIUM CARB/VITAMIN D 600-400 MG TABLET GT SCH ×2 (05:22→17:22)
[2022-05-06] MEDS: CARBIDOPA/LEVODOPA 25-100MG TABLET GT SCH ×3 (05:22→21:25)
[2022-05-06 07:29] VITALS: TEMP 98.5
[2022-05-06] MEDS: VITAMINS A AND D OINT 42 GM TUBE TP SCH (08:49)
[2022-05-06] MEDS: [UNRECOGNIZED DRUG - OTHER] GT SCH (08:49)
[2022-05-06] MEDS: [UNRECOGNIZED DRUG - OTHER] GT SCH ×2 (08:49→21:19)
[2022-05-06] MEDS: COD LIVER OIL/ZINC OXIDE OINT 113 GM TUBE TP SCH ×2 (08:49→21:19)
[2022-05-06] MEDS: HYDROGEN PEROXIDE 3% 118 ML BOTTLE TP SCH ×2 (09:00→19:18)
[2022-05-06 17:55] VITALS: O2SAT 98
[2022-05-06 20:00] VITALS: TEMP 98
[2022-05-06 20:50] VITALS: O2SAT 98
[2022-05-06] MEDS: PROTEIN SUPPLEMENT (PROSTAT) 30 ML LIQUID GT SCH (21:00)
[2022-05-06] MEDS: MINERAL OIL/PETROLAT OPHT OINT 3.5 GM TUBE EACHEYE SCH (21:19)
[2022-05-07] MEDS: POLYVINYL ALCOHOL OPHT DROPS 15 ML BOTTLE EACHEYE SCH ×6 (03:30→23:30)
[2022-05-07] MEDS: CARBIDOPA/LEVODOPA 25-100MG TABLET GT SCH ×3 (05:28→21:37)
[2022-05-07] MEDS: LEVOTHYROXINE SODIUM 125 MCG TABLET PO SCH (05:28)
[2022-05-07] MEDS: CALCIUM CARB/VITAMIN D 600-400 MG TABLET GT SCH ×2 (05:28→18:03)
[2022-05-07] MEDS: [UNRECOGNIZED DRUG - OTHER] GT SCH (05:28)
[2022-05-07] MEDS: FAMOTIDINE 20 MG TABLET GT SCH (06:32)
[2022-05-07 07:24] VITALS: TEMP 97.9
[2022-05-07] MEDS: [UNRECOGNIZED DRUG - OTHER] GT SCH ×2 (09:00→21:00)
[2022-05-07] MEDS: COD LIVER OIL/ZINC OXIDE OINT 113 GM TUBE TP SCH ×2 (09:00→21:37)
[2022-05-07] MEDS: VITAMINS A AND D OINT 42 GM TUBE TP SCH (09:00)
[2022-05-07] MEDS: HYDROGEN PEROXIDE 3% 118 ML BOTTLE TP SCH ×2 (09:00→19:18)
[2022-05-07 09:30] VITALS: BP 138/69; O2SAT 98
[2022-05-07] MEDS: [UNRECOGNIZED DRUG - OTHER] GT SCH (10:00)
[2022-05-07 13:22] VITALS: O2SAT 98
[2022-05-07 20:00] VITALS: TEMP 98
[2022-05-07 20:50] VITALS: O2SAT 98
[2022-05-07] MEDS: PROTEIN SUPPLEMENT (PROSTAT) 30 ML LIQUID GT SCH (21:37)
[2022-05-07] MEDS: MINERAL OIL/PETROLAT OPHT OINT 3.5 GM TUBE EACHEYE SCH (21:37)
[2022-05-07] MEDS: OSMOLITE 1.2 CAL 1,000 ML LIQUID GT PRN (21:37)
[2022-05-08] MEDS: POLYVINYL ALCOHOL OPHT DROPS 15 ML BOTTLE EACHEYE SCH ×6 (03:30→23:34)
[2022-05-08] MEDS: [UNRECOGNIZED DRUG - OTHER] GT SCH (05:22)
[2022-05-08] MEDS: LEVOTHYROXINE SODIUM 125 MCG TABLET PO SCH (05:22)
[2022-05-08] MEDS: CARBIDOPA/LEVODOPA 25-100MG TABLET GT SCH ×3 (05:22→21:48)
[2022-05-08] MEDS: CALCIUM CARB/VITAMIN D 600-400 MG TABLET GT SCH ×2 (05:22→17:39)
[2022-05-08] MEDS: ALENDRONATE SODIUM 70 MG GT SCH (05:42)
[2022-05-08] MEDS: FAMOTIDINE 20 MG TABLET GT SCH (05:42)
[2022-05-08 08:07] VITALS: TEMP 97.7
[2022-05-08] MEDS: HYDROGEN PEROXIDE 3% 118 ML BOTTLE TP SCH ×2 (09:00→19:20)
[2022-05-08] MEDS: [UNRECOGNIZED DRUG - OTHER] GT SCH ×2 (09:00→21:11)
[2022-05-08] MEDS: COD LIVER OIL/ZINC OXIDE OINT 113 GM TUBE TP SCH ×2 (09:15→21:11)
[2022-05-08] MEDS: VITAMINS A AND D OINT 42 GM TUBE TP SCH (09:15)
[2022-05-08] MEDS: [UNRECOGNIZED DRUG - OTHER] GT SCH (09:15)
[2022-05-08 11:20] VITALS: O2SAT 98
[2022-05-08 20:32] VITALS: TEMP 98.1
[2022-05-08 21:05] VITALS: O2SAT 98
[2022-05-08] MEDS: MINERAL OIL/PETROLAT OPHT OINT 3.5 GM TUBE EACHEYE SCH (21:11)
[2022-05-08] MEDS: PROTEIN SUPPLEMENT (PROSTAT) 30 ML LIQUID GT SCH (21:11)
[2022-05-08] MEDS: diphenhydrAMINE 25 MG/10 ML UDC GT PRN (21:48)
[2022-05-09] MEDS: POLYVINYL ALCOHOL OPHT DROPS 15 ML BOTTLE EACHEYE SCH ×5 (03:37→19:30)
[2022-05-09] MEDS: LEVOTHYROXINE SODIUM 125 MCG TABLET PO SCH (05:18)
[2022-05-09] MEDS: CALCIUM CARB/VITAMIN D 600-400 MG TABLET GT SCH ×2 (05:18→17:04)
[2022-05-09] MEDS: [UNRECOGNIZED DRUG - OTHER] GT SCH (05:18)
[2022-05-09] MEDS: CARBIDOPA/LEVODOPA 25-100MG TABLET GT SCH ×3 (05:18→21:48)
[2022-05-09] MEDS: FAMOTIDINE 20 MG TABLET GT SCH (07:11)
[2022-05-09 07:52] VITALS: TEMP 98.3
[2022-05-09] MEDS: HYDROGEN PEROXIDE 3% 118 ML BOTTLE TP SCH ×2 (08:38→21:09)
[2022-05-09] MEDS: [UNRECOGNIZED DRUG - OTHER] GT SCH ×2 (09:00→20:40)
[2022-05-09] MEDS: VITAMINS A AND D OINT 42 GM TUBE TP SCH (09:42)
[2022-05-09] MEDS: [UNRECOGNIZED DRUG - OTHER] GT SCH (09:42)
[2022-05-09] MEDS: COD LIVER OIL/ZINC OXIDE OINT 113 GM TUBE TP SCH ×2 (09:42→20:40)
[2022-05-09 11:13] VITALS: O2SAT 98
[2022-05-09 19:57] VITALS: TEMP 94.3
[2022-05-09 20:30] VITALS: O2SAT 98
[2022-05-09] MEDS: MINERAL OIL/PETROLAT OPHT OINT 3.5 GM TUBE EACHEYE SCH (20:40)
[2022-05-09] MEDS: PROTEIN SUPPLEMENT (PROSTAT) 30 ML LIQUID GT SCH (20:40)
[2022-05-10] MEDS: POLYVINYL ALCOHOL OPHT DROPS 15 ML BOTTLE EACHEYE SCH ×7 (00:19→23:30)
[2022-05-10] MEDS: LOPERAMIDE HCL 2 MG/15 ML GT PRN (04:57)
[2022-05-10] MEDS: CARBIDOPA/LEVODOPA 25-100MG TABLET GT SCH ×3 (05:02→22:05)
[2022-05-10] MEDS: CALCIUM CARB/VITAMIN D 600-400 MG TABLET GT SCH ×2 (05:02→17:08)
[2022-05-10] MEDS: LEVOTHYROXINE SODIUM 125 MCG TABLET PO SCH (05:02)
[2022-05-10] MEDS: [UNRECOGNIZED DRUG - OTHER] GT SCH (05:02)
[2022-05-10] MEDS: FAMOTIDINE 20 MG TABLET GT SCH (05:31)
[2022-05-10 07:52] VITALS: TEMP 97.2
[2022-05-10] MEDS: HYDROGEN PEROXIDE 3% 118 ML BOTTLE TP SCH ×2 (08:02→19:53)
[2022-05-10] MEDS: [UNRECOGNIZED DRUG - OTHER] GT SCH ×2 (08:15→20:41)
[2022-05-10] MEDS: [UNRECOGNIZED DRUG - OTHER] GT SCH (08:15)
[2022-05-10] MEDS: COD LIVER OIL/ZINC OXIDE OINT 113 GM TUBE TP SCH ×2 (08:16→20:41)
[2022-05-10] MEDS: VITAMINS A AND D OINT 42 GM TUBE TP SCH (08:16)
[2022-05-10 10:30] VITALS: O2SAT 97
[2022-05-10] MEDS: OSMOLITE 1.2 CAL 1,000 ML LIQUID GT PRN (11:55)
[2022-05-10] MEDS: diphenhydrAMINE 25 MG/10 ML UDC GT PRN (14:33)
[2022-05-10 20:17] VITALS: TEMP 97.1
[2022-05-10 20:18] VITALS: TEMP 97.4
[2022-05-10 20:35] VITALS: O2SAT 98
[2022-05-10] MEDS: MINERAL OIL/PETROLAT OPHT OINT 3.5 GM TUBE EACHEYE SCH (20:40)
[2022-05-10] MEDS: PROTEIN SUPPLEMENT (PROSTAT) 30 ML LIQUID GT SCH (20:41)
[2022-05-11] MEDS: POLYVINYL ALCOHOL OPHT DROPS 15 ML BOTTLE EACHEYE SCH ×6 (04:11→23:30)
[2022-05-11] MEDS: [UNRECOGNIZED DRUG - OTHER] GT SCH (05:15)
[2022-05-11] MEDS: CALCIUM CARB/VITAMIN D 600-400 MG TABLET GT SCH ×2 (05:15→17:49)
[2022-05-11] MEDS: LEVOTHYROXINE SODIUM 125 MCG TABLET PO SCH (05:16)
[2022-05-11] MEDS: CARBIDOPA/LEVODOPA 25-100MG TABLET GT SCH ×3 (05:16→21:15)
[2022-05-11] MEDS: FAMOTIDINE 20 MG TABLET GT SCH (05:39)
[2022-05-11 07:41] VITALS: TEMP 97.4
[2022-05-11 07:53] VITALS: O2SAT 97
[2022-05-11] MEDS: VITAMINS A AND D OINT 42 GM TUBE TP SCH (08:41)
[2022-05-11] MEDS: [UNRECOGNIZED DRUG - OTHER] GT SCH (08:41)
[2022-05-11] MEDS: COD LIVER OIL/ZINC OXIDE OINT 113 GM TUBE TP SCH ×2 (08:41→21:15)
[2022-05-11] MEDS: [UNRECOGNIZED DRUG - OTHER] GT SCH ×2 (08:41→21:00)
[2022-05-11] MEDS: HYDROGEN PEROXIDE 3% 118 ML BOTTLE TP SCH ×2 (09:38→19:26)
[2022-05-11 11:30] VITALS: O2SAT 98
[2022-05-11] MEDS: OSMOLITE 1.2 CAL 1,000 ML LIQUID GT PRN (16:42)
[2022-05-11 20:19] VITALS: TEMP 97.7
[2022-05-11 20:30] VITALS: O2SAT 98
[2022-05-11] MEDS: PROTEIN SUPPLEMENT (PROSTAT) 30 ML LIQUID GT SCH (21:15)
[2022-05-11] MEDS: MINERAL OIL/PETROLAT OPHT OINT 3.5 GM TUBE EACHEYE SCH (21:15)
[2022-05-12] MEDS: POLYVINYL ALCOHOL OPHT DROPS 15 ML BOTTLE EACHEYE SCH ×6 (03:30→23:30)
[2022-05-12] MEDS: CALCIUM CARB/VITAMIN D 600-400 MG TABLET GT SCH ×2 (05:38→17:00)
[2022-05-12] MEDS: LEVOTHYROXINE SODIUM 125 MCG TABLET PO SCH (05:38)
[2022-05-12] MEDS: FAMOTIDINE 20 MG TABLET GT SCH (05:38)
[2022-05-12] MEDS: [UNRECOGNIZED DRUG - OTHER] GT SCH (05:38)
[2022-05-12] MEDS: CARBIDOPA/LEVODOPA 25-100MG TABLET GT SCH ×3 (05:38→21:08)
[2022-05-12] MEDS: HYDROGEN PEROXIDE 3% 118 ML BOTTLE TP SCH ×2 (07:13→20:43)
[2022-05-12 07:37] VITALS: TEMP 98.8
[2022-05-12] MEDS: [UNRECOGNIZED DRUG - OTHER] GT SCH ×2 (08:30→20:56)
[2022-05-12] MEDS: [UNRECOGNIZED DRUG - OTHER] GT SCH (08:30)
[2022-05-12] MEDS: COD LIVER OIL/ZINC OXIDE OINT 113 GM TUBE TP SCH ×2 (08:31→20:56)
[2022-05-12] MEDS: VITAMINS A AND D OINT 42 GM TUBE TP SCH (08:31)
[2022-05-12 10:00] VITALS: O2SAT 97
[2022-05-12 20:15] VITALS: O2SAT 98
[2022-05-12 20:26] VITALS: TEMP 98.6
[2022-05-12] MEDS: MINERAL OIL/PETROLAT OPHT OINT 3.5 GM TUBE EACHEYE SCH (20:56)
[2022-05-12] MEDS: PROTEIN SUPPLEMENT (PROSTAT) 30 ML LIQUID GT SCH (20:56)
[2022-05-12] MEDS: OSMOLITE 1.2 CAL 1,000 ML LIQUID GT PRN (21:08)
[2022-05-13] MEDS: POLYVINYL ALCOHOL OPHT DROPS 15 ML BOTTLE EACHEYE SCH ×6 (03:38→23:30)
[2022-05-13] MEDS: CALCIUM CARB/VITAMIN D 600-400 MG TABLET GT SCH ×2 (05:12→17:06)
[2022-05-13] MEDS: [UNRECOGNIZED DRUG - OTHER] GT SCH (05:12)
[2022-05-13] MEDS: LEVOTHYROXINE SODIUM 125 MCG TABLET PO SCH (05:12)
[2022-05-13] MEDS: CARBIDOPA/LEVODOPA 25-100MG TABLET GT SCH ×3 (05:12→21:31)
[2022-05-13] MEDS: FAMOTIDINE 20 MG TABLET GT SCH (05:43)
[2022-05-13 07:24] VITALS: TEMP 98
[2022-05-13] MEDS: HYDROGEN PEROXIDE 3% 118 ML BOTTLE TP SCH ×2 (08:18→21:00)
[2022-05-13] MEDS: [UNRECOGNIZED DRUG - OTHER] GT SCH (08:31)
[2022-05-13] MEDS: COD LIVER OIL/ZINC OXIDE OINT 113 GM TUBE TP SCH ×2 (08:31→21:31)
[2022-05-13] MEDS: VITAMINS A AND D OINT 42 GM TUBE TP SCH (08:32)
[2022-05-13] MEDS: LOPERAMIDE HCL 2 MG/15 ML GT PRN (08:36)
[2022-05-13] MEDS: [UNRECOGNIZED DRUG - OTHER] GT SCH ×3 (08:36→21:31)
[2022-05-13 10:34] VITALS: O2SAT 98
[2022-05-13] MEDS: diphenhydrAMINE 25 MG/10 ML UDC GT PRN (14:34)
[2022-05-13 19:17] VITALS: O2SAT 98
[2022-05-13 19:59] VITALS: TEMP 98.3
[2022-05-13] MEDS: MINERAL OIL/PETROLAT OPHT OINT 3.5 GM TUBE EACHEYE SCH (21:30)
[2022-05-13] MEDS: PROTEIN SUPPLEMENT (PROSTAT) 30 ML LIQUID GT SCH (21:31)
[2022-05-13] MEDS: OSMOLITE 1.2 CAL 1,000 ML LIQUID GT PRN (22:00)
[2022-05-14] MEDS: POLYVINYL ALCOHOL OPHT DROPS 15 ML BOTTLE EACHEYE SCH ×6 (03:30→23:30)
[2022-05-14] MEDS: LEVOTHYROXINE SODIUM 125 MCG TABLET PO SCH (05:54)
[2022-05-14] MEDS: [UNRECOGNIZED DRUG - OTHER] GT SCH (05:54)
[2022-05-14] MEDS: FAMOTIDINE 20 MG TABLET GT SCH (05:54)
[2022-05-14] MEDS: CARBIDOPA/LEVODOPA 25-100MG TABLET GT SCH ×3 (05:54→21:10)
[2022-05-14] MEDS: CALCIUM CARB/VITAMIN D 600-400 MG TABLET GT SCH ×2 (05:54→17:02)
[2022-05-14 07:20] VITALS: TEMP 98.3
[2022-05-14] MEDS: COD LIVER OIL/ZINC OXIDE OINT 113 GM TUBE TP SCH ×2 (08:08→20:59)
[2022-05-14] MEDS: [UNRECOGNIZED DRUG - OTHER] GT SCH ×2 (08:08→20:59)
[2022-05-14] MEDS: VITAMINS A AND D OINT 42 GM TUBE TP SCH (08:08)
[2022-05-14] MEDS: [UNRECOGNIZED DRUG - OTHER] GT SCH (08:08)
[2022-05-14] MEDS: HYDROGEN PEROXIDE 3% 118 ML BOTTLE TP SCH ×2 (08:24→21:13)
[2022-05-14 10:00] VITALS: O2SAT 97
[2022-05-14] MEDS: diphenhydrAMINE 25 MG/10 ML UDC GT PRN (14:01)
[2022-05-14 19:54] VITALS: TEMP 98.4
[2022-05-14] MEDS: PROTEIN SUPPLEMENT (PROSTAT) 30 ML LIQUID GT SCH (20:59)
[2022-05-14] MEDS: MINERAL OIL/PETROLAT OPHT OINT 3.5 GM TUBE EACHEYE SCH (20:59)
[2022-05-15] MEDS: OSMOLITE 1.2 CAL 1,000 ML LIQUID GT PRN (03:42)
[2022-05-15] MEDS: POLYVINYL ALCOHOL OPHT DROPS 15 ML BOTTLE EACHEYE SCH ×6 (03:57→23:30)
[2022-05-15] MEDS: LEVOTHYROXINE SODIUM 125 MCG TABLET PO SCH (05:55)
[2022-05-15] MEDS: CALCIUM CARB/VITAMIN D 600-400 MG TABLET GT SCH ×2 (05:55→17:02)
[2022-05-15] MEDS: FAMOTIDINE 20 MG TABLET GT SCH (05:55)
[2022-05-15] MEDS: ALENDRONATE SODIUM 70 MG GT SCH (05:55)
[2022-05-15] MEDS: [UNRECOGNIZED DRUG - OTHER] GT SCH (05:55)
[2022-05-15] MEDS: CARBIDOPA/LEVODOPA 25-100MG TABLET GT SCH ×3 (05:55→21:08)
[2022-05-15 07:23] VITALS: TEMP 98
[2022-05-15] MEDS: COD LIVER OIL/ZINC OXIDE OINT 113 GM TUBE TP SCH ×2 (08:10→21:08)
[2022-05-15] MEDS: [UNRECOGNIZED DRUG - OTHER] GT SCH (08:10)
[2022-05-15] MEDS: [UNRECOGNIZED DRUG - OTHER] GT SCH ×2 (08:10→21:16)
[2022-05-15] MEDS: VITAMINS A AND D OINT 42 GM TUBE TP SCH (08:10)
[2022-05-15] MEDS: HYDROGEN PEROXIDE 3% 118 ML BOTTLE TP SCH ×2 (09:16→19:09)
[2022-05-15 13:49] VITALS: O2SAT 98
[2022-05-15 20:30] VITALS: O2SAT 98
[2022-05-15 20:56] VITALS: TEMP 97.8
[2022-05-15] MEDS: MINERAL OIL/PETROLAT OPHT OINT 3.5 GM TUBE EACHEYE SCH (21:07)
[2022-05-15] MEDS: PROTEIN SUPPLEMENT (PROSTAT) 30 ML LIQUID GT SCH (21:08)
[2022-05-15 22:00] VITALS: TEMP 97.8
[2022-05-16] MEDS: POLYVINYL ALCOHOL OPHT DROPS 15 ML BOTTLE EACHEYE SCH ×6 (03:30→23:30)
[2022-05-16] MEDS: CALCIUM CARB/VITAMIN D 600-400 MG TABLET GT SCH ×2 (05:27→17:12)
[2022-05-16] MEDS: [UNRECOGNIZED DRUG - OTHER] GT SCH (05:27)
[2022-05-16] MEDS: CARBIDOPA/LEVODOPA 25-100MG TABLET GT SCH ×3 (05:28→21:07)
[2022-05-16] MEDS: LEVOTHYROXINE SODIUM 125 MCG TABLET PO SCH (05:28)
[2022-05-16] MEDS: FAMOTIDINE 20 MG TABLET GT SCH (05:32)
[2022-05-16 07:51] VITALS: TEMP 97.6
[2022-05-16] MEDS: COD LIVER OIL/ZINC OXIDE OINT 113 GM TUBE TP SCH ×2 (08:50→21:07)
[2022-05-16] MEDS: VITAMINS A AND D OINT 42 GM TUBE TP SCH (08:50)
[2022-05-16] MEDS: [UNRECOGNIZED DRUG - OTHER] GT SCH (08:50)
[2022-05-16] MEDS: [UNRECOGNIZED DRUG - OTHER] GT SCH ×2 (08:52→21:07)
[2022-05-16] MEDS: HYDROGEN PEROXIDE 3% 118 ML BOTTLE TP SCH ×2 (09:00→20:53)
[2022-05-16 10:38] VITALS: O2SAT 98
[2022-05-16] MEDS: OSMOLITE 1.2 CAL 1,000 ML LIQUID GT PRN (13:47)
[2022-05-16 19:59] VITALS: TEMP 97.8
[2022-05-16 21:00] VITALS: O2SAT 98
[2022-05-16] MEDS: MINERAL OIL/PETROLAT OPHT OINT 3.5 GM TUBE EACHEYE SCH (21:07)
[2022-05-16] MEDS: PROTEIN SUPPLEMENT (PROSTAT) 30 ML LIQUID GT SCH (21:07)
[2022-05-17] MEDS: POLYVINYL ALCOHOL OPHT DROPS 15 ML BOTTLE EACHEYE SCH ×6 (03:30→23:30)
[2022-05-17] MEDS: LEVOTHYROXINE SODIUM 125 MCG TABLET PO SCH (05:46)
[2022-05-17] MEDS: CALCIUM CARB/VITAMIN D 600-400 MG TABLET GT SCH ×2 (05:46→17:38)
[2022-05-17] MEDS: FAMOTIDINE 20 MG TABLET GT SCH (05:46)
[2022-05-17] MEDS: [UNRECOGNIZED DRUG - OTHER] GT SCH (05:46)
[2022-05-17] MEDS: CARBIDOPA/LEVODOPA 25-100MG TABLET GT SCH ×3 (05:46→21:06)
[2022-05-17 07:12] VITALS: O2SAT 98
[2022-05-17 07:44] VITALS: TEMP 97.6
[2022-05-17] MEDS: [UNRECOGNIZED DRUG - OTHER] GT SCH (08:50)
[2022-05-17] MEDS: [UNRECOGNIZED DRUG - OTHER] GT SCH ×2 (08:50→20:55)
[2022-05-17] MEDS: COD LIVER OIL/ZINC OXIDE OINT 113 GM TUBE TP SCH ×2 (08:50→21:06)
[2022-05-17] MEDS: VITAMINS A AND D OINT 42 GM TUBE TP SCH (08:51)
[2022-05-17] MEDS: HYDROGEN PEROXIDE 3% 118 ML BOTTLE TP SCH ×2 (09:00→21:04)
[2022-05-17] MEDS: OSMOLITE 1.2 CAL 1,000 ML LIQUID GT PRN (16:18)
[2022-05-17 17:19] VITALS: O2SAT 98
[2022-05-17 20:00] VITALS: TEMP 97.9
[2022-05-17] MEDS: MINERAL OIL/PETROLAT OPHT OINT 3.5 GM TUBE EACHEYE SCH (20:55)
[2022-05-17 21:00] VITALS: O2SAT 98
[2022-05-17] MEDS: PROTEIN SUPPLEMENT (PROSTAT) 30 ML LIQUID GT SCH (21:04)
[2022-05-18] MEDS: POLYVINYL ALCOHOL OPHT DROPS 15 ML BOTTLE EACHEYE SCH ×6 (03:30→23:30)
[2022-05-18] MEDS: CALCIUM CARB/VITAMIN D 600-400 MG TABLET GT SCH ×2 (05:49→17:13)
[2022-05-18] MEDS: [UNRECOGNIZED DRUG - OTHER] GT SCH (05:50)
[2022-05-18] MEDS: CARBIDOPA/LEVODOPA 25-100MG TABLET GT SCH ×3 (05:50→21:01)
[2022-05-18] MEDS: LEVOTHYROXINE SODIUM 125 MCG TABLET PO SCH (05:50)
[2022-05-18] MEDS: FAMOTIDINE 20 MG TABLET GT SCH (05:50)
[2022-05-18 07:32] VITALS: TEMP 97.3
[2022-05-18] MEDS: HYDROGEN PEROXIDE 3% 118 ML BOTTLE TP SCH ×2 (08:37→21:03)
[2022-05-18] MEDS: [UNRECOGNIZED DRUG - OTHER] GT SCH (09:00)
[2022-05-18] MEDS: [UNRECOGNIZED DRUG - OTHER] GT SCH ×2 (09:00→21:01)
[2022-05-18] MEDS: VITAMINS A AND D OINT 42 GM TUBE TP SCH (09:00)
[2022-05-18] MEDS: COD LIVER OIL/ZINC OXIDE OINT 113 GM TUBE TP SCH ×2 (09:00→21:01)
[2022-05-18 16:10] VITALS: O2SAT 98
[2022-05-18] MEDS: OSMOLITE 1.2 CAL 1,000 ML LIQUID GT PRN (17:55)
[2022-05-18] MEDS: diphenhydrAMINE 25 MG/10 ML UDC GT PRN (18:49)
[2022-05-18 20:00] VITALS: TEMP 97.8
[2022-05-18] MEDS: MINERAL OIL/PETROLAT OPHT OINT 3.5 GM TUBE EACHEYE SCH (20:17)
[2022-05-18] MEDS: PROTEIN SUPPLEMENT (PROSTAT) 30 ML LIQUID GT SCH (21:01)
[2022-05-18 21:19] VITALS: O2SAT 98
[2022-05-19] MEDS: POLYVINYL ALCOHOL OPHT DROPS 15 ML BOTTLE EACHEYE SCH ×6 (03:30→23:30)
[2022-05-19] MEDS: CALCIUM CARB/VITAMIN D 600-400 MG TABLET GT SCH ×2 (05:36→17:15)
[2022-05-19] MEDS: FAMOTIDINE 20 MG TABLET GT SCH (05:37)
[2022-05-19] MEDS: CARBIDOPA/LEVODOPA 25-100MG TABLET GT SCH ×3 (05:37→21:37)
[2022-05-19] MEDS: [UNRECOGNIZED DRUG - OTHER] GT SCH (05:37)
[2022-05-19] MEDS: LEVOTHYROXINE SODIUM 125 MCG TABLET PO SCH (05:37)
[2022-05-19 07:29] VITALS: TEMP 98.5
[2022-05-19] MEDS: HYDROGEN PEROXIDE 3% 118 ML BOTTLE TP SCH ×2 (08:21→21:43)
[2022-05-19] MEDS: [UNRECOGNIZED DRUG - OTHER] GT SCH ×2 (09:58→20:10)
[2022-05-19] MEDS: [UNRECOGNIZED DRUG - OTHER] GT SCH (09:58)
[2022-05-19] MEDS: COD LIVER OIL/ZINC OXIDE OINT 113 GM TUBE TP SCH ×2 (09:58→20:10)
[2022-05-19] MEDS: VITAMINS A AND D OINT 42 GM TUBE TP SCH (09:58)
[2022-05-19 14:58] VITALS: O2SAT 98
[2022-05-19 19:25] VITALS: O2SAT 98
[2022-05-19 20:00] VITALS: BP 140/65; TEMP 99.3; O2SAT 96
[2022-05-19] MEDS: PROTEIN SUPPLEMENT (PROSTAT) 30 ML LIQUID GT SCH (20:10)
[2022-05-19] MEDS: MINERAL OIL/PETROLAT OPHT OINT 3.5 GM TUBE EACHEYE SCH (20:10)
[2022-05-20] MEDS: POLYVINYL ALCOHOL OPHT DROPS 15 ML BOTTLE EACHEYE SCH ×6 (03:30→23:30)
[2022-05-20] MEDS: CARBIDOPA/LEVODOPA 25-100MG TABLET GT SCH ×3 (05:04→21:41)
[2022-05-20] MEDS: [UNRECOGNIZED DRUG - OTHER] GT SCH (05:04)
[2022-05-20] MEDS: CALCIUM CARB/VITAMIN D 600-400 MG TABLET GT SCH ×2 (05:04→17:32)
[2022-05-20] MEDS: LEVOTHYROXINE SODIUM 125 MCG TABLET PO SCH (05:05)
[2022-05-20] MEDS: FAMOTIDINE 20 MG TABLET GT SCH (05:36)
[2022-05-20 07:23] VITALS: TEMP 98.8
[2022-05-20] MEDS: HYDROGEN PEROXIDE 3% 118 ML BOTTLE TP SCH ×2 (08:41→21:00)
[2022-05-20] MEDS: [UNRECOGNIZED DRUG - OTHER] GT SCH ×2 (08:58→20:17)
[2022-05-20] MEDS: COD LIVER OIL/ZINC OXIDE OINT 113 GM TUBE TP SCH ×2 (08:58→20:17)
[2022-05-20] MEDS: VITAMINS A AND D OINT 42 GM TUBE TP SCH (08:58)
[2022-05-20] MEDS: [UNRECOGNIZED DRUG - OTHER] GT SCH (08:58)
[2022-05-20 12:29] VITALS: O2SAT 98
[2022-05-20 19:25] VITALS: O2SAT 98
[2022-05-20] MEDS: MINERAL OIL/PETROLAT OPHT OINT 3.5 GM TUBE EACHEYE SCH (20:17)
[2022-05-20] MEDS: PROTEIN SUPPLEMENT (PROSTAT) 30 ML LIQUID GT SCH (20:17)
[2022-05-20 20:24] VITALS: TEMP 98.4
[2022-05-21] MEDS: OSMOLITE 1.2 CAL 1,000 ML LIQUID GT PRN (03:27)
[2022-05-21] MEDS: POLYVINYL ALCOHOL OPHT DROPS 15 ML BOTTLE EACHEYE SCH ×6 (03:38→23:30)
[2022-05-21] MEDS: FAMOTIDINE 20 MG TABLET GT SCH (05:30)
[2022-05-21] MEDS: LEVOTHYROXINE SODIUM 125 MCG TABLET PO SCH (05:30)
[2022-05-21] MEDS: CARBIDOPA/LEVODOPA 25-100MG TABLET GT SCH ×3 (05:30→21:10)
[2022-05-21] MEDS: [UNRECOGNIZED DRUG - OTHER] GT SCH (05:30)
[2022-05-21] MEDS: CALCIUM CARB/VITAMIN D 600-400 MG TABLET GT SCH ×2 (05:30→17:12)
[2022-05-21 07:30] VITALS: TEMP 98.3
[2022-05-21] MEDS: HYDROGEN PEROXIDE 3% 118 ML BOTTLE TP SCH ×2 (08:05→19:11)
[2022-05-21 08:20] LABS: BASOPHILS % (AUTO) 0.9 % (0.0-2.0); EOSINOPHILS # (AUTO) 0.2 K/uL (0.0-0.7); EOSINOPHILS % (AUTO) 4.1 % (0.0-7.0); HEMATOCRIT 36.2 % (31.2-41.9); LYMPHOCYTES # (AUTO) 1.8 K/uL (0.8-4.8); MEAN CORPUSCULAR HEMOGLOBIN 28.9 uug (24.7-32.8); MEAN CORPUSCULAR HGB CONC 33 g/dL (32.3-35.6); MEAN CORPUSCULAR VOLUME 86.9 fL (75.5-95.3); MONOCYTES # (AUTO) 0.5 K/uL (0.1-1.30); MONOCYTES % (AUTO) 9.4 % (0.0-11.0); NEUTROPHILS # (AUTO) 2.7 K/uL (1.8-8.9); NEUTROPHILS % (AUTO) 51.6 % (38.5-71.5); PLATELET COUNT (AUTO) 226 K/uL (179-408); RED BLOOD CELL COUNT(AUTO) 4.16 MIL/uL (3.63-4.92); RED CELL DISTRIBUTION WIDTH 15.8 % (12.3-17.7); WHITE BLOOD COUNT (AUTO) 5.3 K/uL (3.8-11.8)
[2022-05-21 08:36] LABS: DIFFERENTIAL COMMENT 1
[2022-05-21] MEDS: [UNRECOGNIZED DRUG - OTHER] GT SCH ×2 (08:52→21:10)
[2022-05-21] MEDS: VITAMINS A AND D OINT 42 GM TUBE TP SCH (08:52)
[2022-05-21] MEDS: [UNRECOGNIZED DRUG - OTHER] GT SCH (08:52)
[2022-05-21] MEDS: COD LIVER OIL/ZINC OXIDE OINT 113 GM TUBE TP SCH ×2 (08:52→21:10)
[2022-05-21 08:54] LABS: CALCIUM 8.8 mg/dL (8.5-10.1); CARBON DIOXIDE 29 mmol/L (21-32); CHLORIDE 104 mmol/L (98-107); CREATININE 0.8 mg/dL (0.6-1.3); GLUCOSE 110 mg/dL (74-106); MAGNESIUM 2.1 mg/dL (1.8-2.4); PHOSPHOROUS 3.7 mg/dL (2.5-4.9); POTASSIUM 4.5 mmol/L (3.5-5.1); SODIUM SERUM 141 mmol/L (136-145); UREA NITROGEN, BLOOD 24 mg/dL (7-18)
[2022-05-21 10:30] VITALS: O2SAT 98
[2022-05-21 19:40] VITALS: O2SAT 98
[2022-05-21 20:02] VITALS: TEMP 98.5
[2022-05-21] MEDS: MINERAL OIL/PETROLAT OPHT OINT 3.5 GM TUBE EACHEYE SCH (21:10)
[2022-05-21] MEDS: PROTEIN SUPPLEMENT (PROSTAT) 30 ML LIQUID GT SCH (21:10)
[2022-05-22] MEDS: POLYVINYL ALCOHOL OPHT DROPS 15 ML BOTTLE EACHEYE SCH ×6 (03:30→23:17)
[2022-05-22] MEDS: CALCIUM CARB/VITAMIN D 600-400 MG TABLET GT SCH ×2 (06:12→17:49)
[2022-05-22] MEDS: LEVOTHYROXINE SODIUM 125 MCG TABLET PO SCH (06:12)
[2022-05-22] MEDS: ALENDRONATE SODIUM 70 MG GT SCH (06:12)
[2022-05-22] MEDS: [UNRECOGNIZED DRUG - OTHER] GT SCH (06:12)
[2022-05-22] MEDS: FAMOTIDINE 20 MG TABLET GT SCH (06:12)
[2022-05-22] MEDS: CARBIDOPA/LEVODOPA 25-100MG TABLET GT SCH ×3 (06:12→21:13)
[2022-05-22 07:32] VITALS: O2SAT 98
[2022-05-22] MEDS: HYDROGEN PEROXIDE 3% 118 ML BOTTLE TP SCH ×2 (07:32→20:02)
[2022-05-22 07:36] VITALS: TEMP 97.3
[2022-05-22] MEDS: [UNRECOGNIZED DRUG - OTHER] GT SCH (09:12)
[2022-05-22] MEDS: VITAMINS A AND D OINT 42 GM TUBE TP SCH (09:12)
[2022-05-22] MEDS: [UNRECOGNIZED DRUG - OTHER] GT SCH ×2 (09:12→21:12)
[2022-05-22] MEDS: COD LIVER OIL/ZINC OXIDE OINT 113 GM TUBE TP SCH ×2 (09:12→21:13)
[2022-05-22] MEDS: OSMOLITE 1.2 CAL 1,000 ML LIQUID GT PRN ×2 (18:14→18:22)
[2022-05-22 20:00] VITALS: TEMP 97.8
[2022-05-22 21:02] VITALS: O2SAT 98
[2022-05-22] MEDS: MINERAL OIL/PETROLAT OPHT OINT 3.5 GM TUBE EACHEYE SCH (21:12)
[2022-05-22] MEDS: PROTEIN SUPPLEMENT (PROSTAT) 30 ML LIQUID GT SCH (21:12)
[2022-05-23] MEDS: POLYVINYL ALCOHOL OPHT DROPS 15 ML BOTTLE EACHEYE SCH ×6 (03:30→23:23)
[2022-05-23] MEDS: CALCIUM CARB/VITAMIN D 600-400 MG TABLET GT SCH ×2 (06:17→18:15)
[2022-05-23] MEDS: [UNRECOGNIZED DRUG - OTHER] GT SCH (06:18)
[2022-05-23] MEDS: FAMOTIDINE 20 MG TABLET GT SCH (06:18)
[2022-05-23] MEDS: CARBIDOPA/LEVODOPA 25-100MG TABLET GT SCH ×3 (06:18→22:00)
[2022-05-23] MEDS: LEVOTHYROXINE SODIUM 125 MCG TABLET PO SCH (06:18)
[2022-05-23 07:40] VITALS: TEMP 97.8
[2022-05-23] MEDS: HYDROGEN PEROXIDE 3% 118 ML BOTTLE TP SCH ×2 (08:32→20:31)
[2022-05-23] MEDS: COD LIVER OIL/ZINC OXIDE OINT 113 GM TUBE TP SCH ×2 (09:00→20:35)
[2022-05-23] MEDS: VITAMINS A AND D OINT 42 GM TUBE TP SCH (09:26)
[2022-05-23] MEDS: [UNRECOGNIZED DRUG - OTHER] GT SCH (09:26)
[2022-05-23] MEDS: [UNRECOGNIZED DRUG - OTHER] GT SCH ×2 (09:28→20:35)
[2022-05-23 12:52] VITALS: O2SAT 98
[2022-05-23 20:00] VITALS: TEMP 97.6
[2022-05-23 20:20] VITALS: O2SAT 98
[2022-05-23] MEDS: PROTEIN SUPPLEMENT (PROSTAT) 30 ML LIQUID GT SCH (20:35)
[2022-05-23] MEDS: MINERAL OIL/PETROLAT OPHT OINT 3.5 GM TUBE EACHEYE SCH (20:35)
[2022-05-23] MEDS: OSMOLITE 1.2 CAL 1,000 ML LIQUID GT PRN (23:27)
[2022-05-24] MEDS: POLYVINYL ALCOHOL OPHT DROPS 15 ML BOTTLE EACHEYE SCH ×5 (03:30→19:30)
[2022-05-24] MEDS: LEVOTHYROXINE SODIUM 125 MCG TABLET PO SCH (06:05)
[2022-05-24] MEDS: CALCIUM CARB/VITAMIN D 600-400 MG TABLET GT SCH ×2 (06:05→17:09)
[2022-05-24] MEDS: [UNRECOGNIZED DRUG - OTHER] GT SCH (06:05)
[2022-05-24] MEDS: CARBIDOPA/LEVODOPA 25-100MG TABLET GT SCH ×3 (06:06→21:28)
[2022-05-24] MEDS: FAMOTIDINE 20 MG TABLET GT SCH (06:06)
[2022-05-24 07:52] VITALS: TEMP 97.9
[2022-05-24] MEDS: HYDROGEN PEROXIDE 3% 118 ML BOTTLE TP SCH ×2 (08:05→21:21)
[2022-05-24] MEDS: [UNRECOGNIZED DRUG - OTHER] GT SCH ×2 (09:09→21:28)
[2022-05-24] MEDS: COD LIVER OIL/ZINC OXIDE OINT 113 GM TUBE TP SCH ×2 (09:10→21:28)
[2022-05-24] MEDS: VITAMINS A AND D OINT 42 GM TUBE TP SCH (09:10)
[2022-05-24] MEDS: [UNRECOGNIZED DRUG - OTHER] GT SCH (09:10)
[2022-05-24 10:30] VITALS: O2SAT 98
[2022-05-24 19:17] VITALS: O2SAT 98
[2022-05-24 20:00] VITALS: TEMP 97.6
[2022-05-24] MEDS: MINERAL OIL/PETROLAT OPHT OINT 3.5 GM TUBE EACHEYE SCH (21:26)
[2022-05-24] MEDS: PROTEIN SUPPLEMENT (PROSTAT) 30 ML LIQUID GT SCH (21:28)
[2022-05-25] MEDS: POLYVINYL ALCOHOL OPHT DROPS 15 ML BOTTLE EACHEYE SCH ×7 (00:16→23:30)
[2022-05-25] MEDS: OSMOLITE 1.2 CAL 1,000 ML LIQUID GT PRN (01:46)
[2022-05-25] MEDS: CALCIUM CARB/VITAMIN D 600-400 MG TABLET GT SCH ×3 (05:22→21:10)
[2022-05-25] MEDS: [UNRECOGNIZED DRUG - OTHER] GT SCH (05:22)
[2022-05-25] MEDS: CARBIDOPA/LEVODOPA 25-100MG TABLET GT SCH ×3 (05:22→21:16)
[2022-05-25] MEDS: LEVOTHYROXINE SODIUM 125 MCG TABLET PO SCH (05:23)
[2022-05-25] MEDS: FAMOTIDINE 20 MG TABLET GT SCH (05:23)
[2022-05-25 07:59] VITALS: TEMP 97.4
[2022-05-25] MEDS: HYDROGEN PEROXIDE 3% 118 ML BOTTLE TP SCH ×2 (08:32→20:55)
[2022-05-25] MEDS: COD LIVER OIL/ZINC OXIDE OINT 113 GM TUBE TP SCH ×2 (08:43→21:14)
[2022-05-25] MEDS: [UNRECOGNIZED DRUG - OTHER] GT SCH ×2 (08:43→21:14)
[2022-05-25] MEDS: VITAMINS A AND D OINT 42 GM TUBE TP SCH (08:43)
[2022-05-25] MEDS: [UNRECOGNIZED DRUG - OTHER] GT SCH (08:43)
[2022-05-25 09:00] VITALS: O2SAT 98
[2022-05-25 20:00] VITALS: TEMP 97.4
[2022-05-25 20:45] VITALS: O2SAT 98
[2022-05-25] MEDS: MINERAL OIL/PETROLAT OPHT OINT 3.5 GM TUBE EACHEYE SCH (21:08)
[2022-05-25] MEDS: PROTEIN SUPPLEMENT (PROSTAT) 30 ML LIQUID GT SCH (21:09)
[2022-05-26] MEDS: POLYVINYL ALCOHOL OPHT DROPS 15 ML BOTTLE EACHEYE SCH ×5 (03:30→19:30)
[2022-05-26] MEDS: FAMOTIDINE 20 MG TABLET GT SCH (05:41)
[2022-05-26] MEDS: CARBIDOPA/LEVODOPA 25-100MG TABLET GT SCH ×3 (05:41→22:08)
[2022-05-26] MEDS: [UNRECOGNIZED DRUG - OTHER] GT SCH (05:42)
[2022-05-26] MEDS: LEVOTHYROXINE SODIUM 125 MCG TABLET PO SCH (05:42)
[2022-05-26] MEDS: OSMOLITE 1.2 CAL 1,000 ML LIQUID GT PRN (06:15)
[2022-05-26 07:33] VITALS: TEMP 98.3
[2022-05-26] MEDS: HYDROGEN PEROXIDE 3% 118 ML BOTTLE TP SCH ×2 (07:35→20:52)
[2022-05-26] MEDS: [UNRECOGNIZED DRUG - OTHER] GT SCH (08:41)
[2022-05-26] MEDS: COD LIVER OIL/ZINC OXIDE OINT 113 GM TUBE TP SCH ×2 (08:41→20:41)
[2022-05-26] MEDS: VITAMINS A AND D OINT 42 GM TUBE TP SCH (08:41)
[2022-05-26] MEDS: [UNRECOGNIZED DRUG - OTHER] GT SCH ×2 (08:41→20:41)
[2022-05-26 10:20] VITALS: O2SAT 97
[2022-05-26] MEDS: diphenhydrAMINE 25 MG/10 ML UDC GT PRN (17:53)
[2022-05-26] MEDS: CALCIUM CARB/VITAMIN D 600-400 MG TABLET GT SCH (17:53)
[2022-05-26 20:05] VITALS: TEMP 97.7
[2022-05-26 20:40] VITALS: O2SAT 99
[2022-05-26] MEDS: MINERAL OIL/PETROLAT OPHT OINT 3.5 GM TUBE EACHEYE SCH (20:41)
[2022-05-26] MEDS: PROTEIN SUPPLEMENT (PROSTAT) 30 ML LIQUID GT SCH (20:41)
[2022-05-27] MEDS: POLYVINYL ALCOHOL OPHT DROPS 15 ML BOTTLE EACHEYE SCH ×7 (00:13→23:30)
[2022-05-27] MEDS: LEVOTHYROXINE SODIUM 125 MCG TABLET PO SCH (05:01)
[2022-05-27] MEDS: [UNRECOGNIZED DRUG - OTHER] GT SCH (05:01)
[2022-05-27] MEDS: CALCIUM CARB/VITAMIN D 600-400 MG TABLET GT SCH ×2 (05:01→17:14)
[2022-05-27] MEDS: CARBIDOPA/LEVODOPA 25-100MG TABLET GT SCH ×3 (05:01→22:09)
[2022-05-27] MEDS: FAMOTIDINE 20 MG TABLET GT SCH (05:49)
[2022-05-27 08:00] VITALS: TEMP 98
[2022-05-27] MEDS: HYDROGEN PEROXIDE 3% 118 ML BOTTLE TP SCH ×2 (08:20→21:02)
[2022-05-27] MEDS: [UNRECOGNIZED DRUG - OTHER] GT SCH ×2 (09:01→21:00)
[2022-05-27] MEDS: COD LIVER OIL/ZINC OXIDE OINT 113 GM TUBE TP SCH ×2 (09:02→21:01)
[2022-05-27] MEDS: [UNRECOGNIZED DRUG - OTHER] GT SCH (09:02)
[2022-05-27] MEDS: VITAMINS A AND D OINT 42 GM TUBE TP SCH (09:02)
[2022-05-27 09:35] VITALS: O2SAT 98
[2022-05-27 20:31] VITALS: TEMP 98.4
[2022-05-27 20:40] VITALS: O2SAT 99
[2022-05-27] MEDS: MINERAL OIL/PETROLAT OPHT OINT 3.5 GM TUBE EACHEYE SCH (21:00)
[2022-05-27] MEDS: PROTEIN SUPPLEMENT (PROSTAT) 30 ML LIQUID GT SCH (21:01)
[2022-05-28] MEDS: POLYVINYL ALCOHOL OPHT DROPS 15 ML BOTTLE EACHEYE SCH ×6 (03:30→23:45)
[2022-05-28] MEDS: diphenhydrAMINE 25 MG/10 ML UDC GT PRN (04:39)
[2022-05-28] MEDS: CALCIUM CARB/VITAMIN D 600-400 MG TABLET GT SCH ×2 (05:27→17:39)
[2022-05-28] MEDS: LEVOTHYROXINE SODIUM 125 MCG TABLET PO SCH (05:27)
[2022-05-28] MEDS: [UNRECOGNIZED DRUG - OTHER] GT SCH (05:27)
[2022-05-28] MEDS: CARBIDOPA/LEVODOPA 25-100MG TABLET GT SCH ×3 (05:27→22:25)
[2022-05-28] MEDS: FAMOTIDINE 20 MG TABLET GT SCH (05:31)
[2022-05-28 07:14] VITALS: O2SAT 97
[2022-05-28 07:21] VITALS: TEMP 98.4
[2022-05-28] MEDS: HYDROGEN PEROXIDE 3% 118 ML BOTTLE TP SCH ×2 (09:15→19:18)
[2022-05-28] MEDS: [UNRECOGNIZED DRUG - OTHER] GT SCH ×2 (09:34→20:52)
[2022-05-28] MEDS: VITAMINS A AND D OINT 42 GM TUBE TP SCH (09:34)
[2022-05-28] MEDS: [UNRECOGNIZED DRUG - OTHER] GT SCH (09:34)
[2022-05-28] MEDS: COD LIVER OIL/ZINC OXIDE OINT 113 GM TUBE TP SCH ×2 (09:34→20:55)
[2022-05-28 20:00] VITALS: TEMP 97.9
[2022-05-28] MEDS: MINERAL OIL/PETROLAT OPHT OINT 3.5 GM TUBE EACHEYE SCH (20:52)
[2022-05-28] MEDS: PROTEIN SUPPLEMENT (PROSTAT) 30 ML LIQUID GT SCH (20:52)
[2022-05-28 21:12] VITALS: O2SAT 99
[2022-05-29] MEDS: POLYVINYL ALCOHOL OPHT DROPS 15 ML BOTTLE EACHEYE SCH ×6 (03:30→23:57)
[2022-05-29] MEDS: CALCIUM CARB/VITAMIN D 600-400 MG TABLET GT SCH ×2 (05:19→17:08)
[2022-05-29] MEDS: ALENDRONATE SODIUM 70 MG GT SCH (05:19)
[2022-05-29] MEDS: [UNRECOGNIZED DRUG - OTHER] GT SCH (05:19)
[2022-05-29] MEDS: LEVOTHYROXINE SODIUM 125 MCG TABLET PO SCH (05:20)
[2022-05-29] MEDS: CARBIDOPA/LEVODOPA 25-100MG TABLET GT SCH ×3 (05:20→21:25)
[2022-05-29] MEDS: FAMOTIDINE 20 MG TABLET GT SCH (05:31)
[2022-05-29 08:00] VITALS: TEMP 98.1
[2022-05-29] MEDS: HYDROGEN PEROXIDE 3% 118 ML BOTTLE TP SCH ×2 (08:09→19:17)
[2022-05-29] MEDS: COD LIVER OIL/ZINC OXIDE OINT 113 GM TUBE TP SCH ×2 (08:46→20:35)
[2022-05-29] MEDS: VITAMINS A AND D OINT 42 GM TUBE TP SCH (08:46)
[2022-05-29] MEDS: [UNRECOGNIZED DRUG - OTHER] GT SCH ×2 (08:46→20:35)
[2022-05-29] MEDS: [UNRECOGNIZED DRUG - OTHER] GT SCH (08:46)
[2022-05-29 12:34] VITALS: O2SAT 98
[2022-05-29] MEDS: OSMOLITE 1.2 CAL 1,000 ML LIQUID GT PRN (13:02)
[2022-05-29 19:35] VITALS: O2SAT 99
[2022-05-29 20:00] VITALS: TEMP 97.8
[2022-05-29] MEDS: MINERAL OIL/PETROLAT OPHT OINT 3.5 GM TUBE EACHEYE SCH (20:35)
[2022-05-29] MEDS: PROTEIN SUPPLEMENT (PROSTAT) 30 ML LIQUID GT SCH (20:35)
[2022-05-30] MEDS: POLYVINYL ALCOHOL OPHT DROPS 15 ML BOTTLE EACHEYE SCH ×6 (03:48→23:30)
[2022-05-30] MEDS: CARBIDOPA/LEVODOPA 25-100MG TABLET GT SCH ×3 (05:36→21:46)
[2022-05-30] MEDS: FAMOTIDINE 20 MG TABLET GT SCH (05:36)
[2022-05-30] MEDS: [UNRECOGNIZED DRUG - OTHER] GT SCH (05:36)
[2022-05-30] MEDS: LEVOTHYROXINE SODIUM 125 MCG TABLET PO SCH (05:36)
[2022-05-30] MEDS: CALCIUM CARB/VITAMIN D 600-400 MG TABLET GT SCH ×2 (05:36→18:17)
[2022-05-30] MEDS: diphenhydrAMINE 25 MG/10 ML UDC GT PRN (05:46)
[2022-05-30 07:53] VITALS: O2SAT 98
[2022-05-30] MEDS: HYDROGEN PEROXIDE 3% 118 ML BOTTLE TP SCH ×2 (07:53→19:13)
[2022-05-30 08:00] VITALS: TEMP 97.6
[2022-05-30] MEDS: [UNRECOGNIZED DRUG - OTHER] GT SCH ×2 (09:05→20:33)
[2022-05-30] MEDS: [UNRECOGNIZED DRUG - OTHER] GT SCH (09:05)
[2022-05-30] MEDS: COD LIVER OIL/ZINC OXIDE OINT 113 GM TUBE TP SCH ×2 (09:07→20:33)
[2022-05-30] MEDS: VITAMINS A AND D OINT 42 GM TUBE TP SCH (09:07)
[2022-05-30] MEDS: OSMOLITE 1.2 CAL 1,000 ML LIQUID GT PRN (18:17)
[2022-05-30 19:05] VITALS: O2SAT 99
[2022-05-30 20:00] VITALS: TEMP 97.8
[2022-05-30] MEDS: PROTEIN SUPPLEMENT (PROSTAT) 30 ML LIQUID GT SCH (20:33)
[2022-05-30] MEDS: MINERAL OIL/PETROLAT OPHT OINT 3.5 GM TUBE EACHEYE SCH (20:33)
[2022-05-31] MEDS: POLYVINYL ALCOHOL OPHT DROPS 15 ML BOTTLE EACHEYE SCH ×6 (04:18→23:30)
[2022-05-31] MEDS: CALCIUM CARB/VITAMIN D 600-400 MG TABLET GT SCH ×2 (05:13→18:07)
[2022-05-31] MEDS: LEVOTHYROXINE SODIUM 125 MCG TABLET PO SCH (05:13)
[2022-05-31] MEDS: CARBIDOPA/LEVODOPA 25-100MG TABLET GT SCH ×3 (05:13→21:59)
[2022-05-31] MEDS: [UNRECOGNIZED DRUG - OTHER] GT SCH (05:13)
[2022-05-31] MEDS: FAMOTIDINE 20 MG TABLET GT SCH (05:51)
[2022-05-31 07:38] VITALS: TEMP 98.1
[2022-05-31 07:53] VITALS: O2SAT 98
[2022-05-31] MEDS: HYDROGEN PEROXIDE 3% 118 ML BOTTLE TP SCH ×2 (07:53→19:16)
[2022-05-31] MEDS: [UNRECOGNIZED DRUG - OTHER] GT SCH ×2 (08:57→20:24)
[2022-05-31] MEDS: [UNRECOGNIZED DRUG - OTHER] GT SCH (08:57)
[2022-05-31] MEDS: COD LIVER OIL/ZINC OXIDE OINT 113 GM TUBE TP SCH ×2 (08:58→20:24)
[2022-05-31] MEDS: VITAMINS A AND D OINT 42 GM TUBE TP SCH (08:58)
[2022-05-31 19:42] VITALS: O2SAT 98
[2022-05-31 20:00] VITALS: TEMP 97.8
[2022-05-31] MEDS: PROTEIN SUPPLEMENT (PROSTAT) 30 ML LIQUID GT SCH (20:24)
[2022-05-31] MEDS: MINERAL OIL/PETROLAT OPHT OINT 3.5 GM TUBE EACHEYE SCH (20:24)
[2022-05-31] MEDS: OSMOLITE 1.2 CAL 1,000 ML LIQUID GT PRN (20:25)
[2022-05-31] MEDS: diphenhydrAMINE 25 MG/10 ML UDC GT PRN (20:25)
[2022-06-01] MEDS: POLYVINYL ALCOHOL OPHT DROPS 15 ML BOTTLE EACHEYE SCH ×6 (03:30→23:30)
[2022-06-01] MEDS: CARBIDOPA/LEVODOPA 25-100MG TABLET GT SCH ×3 (05:29→22:02)
[2022-06-01] MEDS: [UNRECOGNIZED DRUG - OTHER] GT SCH (05:29)
[2022-06-01] MEDS: LEVOTHYROXINE SODIUM 125 MCG TABLET PO SCH (05:29)
[2022-06-01] MEDS: CALCIUM CARB/VITAMIN D 600-400 MG TABLET GT SCH ×2 (05:29→17:21)
[2022-06-01] MEDS: FAMOTIDINE 20 MG TABLET GT SCH (05:30)
[2022-06-01 07:48] VITALS: TEMP 97.8
[2022-06-01] MEDS: [UNRECOGNIZED DRUG - OTHER] GT SCH (08:43)
[2022-06-01] MEDS: COD LIVER OIL/ZINC OXIDE OINT 113 GM TUBE TP SCH ×2 (08:43→20:50)
[2022-06-01] MEDS: [UNRECOGNIZED DRUG - OTHER] GT SCH ×2 (08:43→20:50)
[2022-06-01] MEDS: VITAMINS A AND D OINT 42 GM TUBE TP SCH (08:43)
[2022-06-01] MEDS: HYDROGEN PEROXIDE 3% 118 ML BOTTLE TP SCH ×2 (09:00→19:17)
[2022-06-01 12:09] VITALS: O2SAT 98
[2022-06-01 20:00] VITALS: TEMP 97.8
[2022-06-01] MEDS: PROTEIN SUPPLEMENT (PROSTAT) 30 ML LIQUID GT SCH (20:50)
[2022-06-01] MEDS: MINERAL OIL/PETROLAT OPHT OINT 3.5 GM TUBE EACHEYE SCH (20:50)
[2022-06-01 22:23] VITALS: O2SAT 98
[2022-06-02] MEDS: OSMOLITE 1.2 CAL 1,000 ML LIQUID GT PRN (00:42)
[2022-06-02] MEDS: POLYVINYL ALCOHOL OPHT DROPS 15 ML BOTTLE EACHEYE SCH ×6 (03:30→23:30)
[2022-06-02] MEDS: [UNRECOGNIZED DRUG - OTHER] GT SCH (05:50)
[2022-06-02] MEDS: FAMOTIDINE 20 MG TABLET GT SCH (05:50)
[2022-06-02] MEDS: CALCIUM CARB/VITAMIN D 600-400 MG TABLET GT SCH ×2 (05:50→17:33)
[2022-06-02] MEDS: CARBIDOPA/LEVODOPA 25-100MG TABLET GT SCH ×3 (05:50→21:04)
[2022-06-02] MEDS: LEVOTHYROXINE SODIUM 125 MCG TABLET PO SCH (05:50)
[2022-06-02 07:05] VITALS: O2SAT 98
[2022-06-02] MEDS: HYDROGEN PEROXIDE 3% 118 ML BOTTLE TP SCH ×2 (07:42→20:49)
[2022-06-02 08:03] VITALS: TEMP 98.3
[2022-06-02] MEDS: [UNRECOGNIZED DRUG - OTHER] GT SCH ×2 (08:12→20:54)
[2022-06-02] MEDS: [UNRECOGNIZED DRUG - OTHER] GT SCH (08:12)
[2022-06-02] MEDS: COD LIVER OIL/ZINC OXIDE OINT 113 GM TUBE TP SCH ×2 (08:14→20:55)
[2022-06-02] MEDS: VITAMINS A AND D OINT 42 GM TUBE TP SCH (08:14)
[2022-06-02 20:38] VITALS: TEMP 98.3
[2022-06-02] MEDS: MINERAL OIL/PETROLAT OPHT OINT 3.5 GM TUBE EACHEYE SCH (20:54)
[2022-06-02] MEDS: PROTEIN SUPPLEMENT (PROSTAT) 30 ML LIQUID GT SCH (20:55)
[2022-06-03] MEDS: POLYVINYL ALCOHOL OPHT DROPS 15 ML BOTTLE EACHEYE SCH ×6 (03:30→23:30)
[2022-06-03] MEDS: [UNRECOGNIZED DRUG - OTHER] GT SCH (05:00)
[2022-06-03] MEDS: CARBIDOPA/LEVODOPA 25-100MG TABLET GT SCH ×3 (05:00→21:22)
[2022-06-03] MEDS: LEVOTHYROXINE SODIUM 125 MCG TABLET PO SCH (05:00)
[2022-06-03] MEDS: CALCIUM CARB/VITAMIN D 600-400 MG TABLET GT SCH ×2 (05:00→18:33)
[2022-06-03] MEDS: FAMOTIDINE 20 MG TABLET GT SCH (05:34)
[2022-06-03 08:00] VITALS: TEMP 97.5
[2022-06-03] MEDS: HYDROGEN PEROXIDE 3% 118 ML BOTTLE TP SCH ×2 (09:21→21:15)
[2022-06-03] MEDS: [UNRECOGNIZED DRUG - OTHER] GT SCH (09:26)
[2022-06-03] MEDS: [UNRECOGNIZED DRUG - OTHER] GT SCH ×2 (09:26→21:21)
[2022-06-03] MEDS: COD LIVER OIL/ZINC OXIDE OINT 113 GM TUBE TP SCH ×2 (09:27→21:22)
[2022-06-03] MEDS: VITAMINS A AND D OINT 42 GM TUBE TP SCH (09:27)
[2022-06-03 10:19] VITALS: O2SAT 98
[2022-06-03 20:14] VITALS: TEMP 98.6
[2022-06-03 21:15] VITALS: O2SAT 99
[2022-06-03] MEDS: MINERAL OIL/PETROLAT OPHT OINT 3.5 GM TUBE EACHEYE SCH (21:21)
[2022-06-03] MEDS: PROTEIN SUPPLEMENT (PROSTAT) 30 ML LIQUID GT SCH (21:22)
[2022-06-04] MEDS: POLYVINYL ALCOHOL OPHT DROPS 15 ML BOTTLE EACHEYE SCH ×6 (03:30→23:30)
[2022-06-04] MEDS: FAMOTIDINE 20 MG TABLET GT SCH (05:43)
[2022-06-04] MEDS: CALCIUM CARB/VITAMIN D 600-400 MG TABLET GT SCH ×2 (05:43→17:25)
[2022-06-04] MEDS: LEVOTHYROXINE SODIUM 125 MCG TABLET PO SCH (05:43)
[2022-06-04] MEDS: CARBIDOPA/LEVODOPA 25-100MG TABLET GT SCH ×3 (05:43→21:41)
[2022-06-04] MEDS: [UNRECOGNIZED DRUG - OTHER] GT SCH (05:43)
[2022-06-04] MEDS: HYDROGEN PEROXIDE 3% 118 ML BOTTLE TP SCH ×2 (07:24→19:21)
[2022-06-04] MEDS: [UNRECOGNIZED DRUG - OTHER] GT SCH ×2 (08:32→20:28)
[2022-06-04] MEDS: VITAMINS A AND D OINT 42 GM TUBE TP SCH (08:32)
[2022-06-04] MEDS: COD LIVER OIL/ZINC OXIDE OINT 113 GM TUBE TP SCH ×2 (08:32→20:29)
[2022-06-04] MEDS: [UNRECOGNIZED DRUG - OTHER] GT SCH (08:32)
[2022-06-04 09:17] VITALS: TEMP 98.5
[2022-06-04 10:25] VITALS: O2SAT 98
[2022-06-04] MEDS: OSMOLITE 1.2 CAL 1,000 ML LIQUID GT PRN (15:31)
[2022-06-04 19:20] VITALS: O2SAT 99
[2022-06-04 19:52] VITALS: TEMP 98.6
[2022-06-04] MEDS: MINERAL OIL/PETROLAT OPHT OINT 3.5 GM TUBE EACHEYE SCH (20:27)
[2022-06-04] MEDS: PROTEIN SUPPLEMENT (PROSTAT) 30 ML LIQUID GT SCH (20:28)
[2022-06-05] MEDS: POLYVINYL ALCOHOL OPHT DROPS 15 ML BOTTLE EACHEYE SCH ×6 (03:30→23:30)
[2022-06-05] MEDS: [UNRECOGNIZED DRUG - OTHER] GT SCH (06:23)
[2022-06-05] MEDS: ALENDRONATE SODIUM 70 MG GT SCH (06:23)
[2022-06-05] MEDS: CALCIUM CARB/VITAMIN D 600-400 MG TABLET GT SCH ×2 (06:23→17:34)
[2022-06-05] MEDS: LEVOTHYROXINE SODIUM 125 MCG TABLET PO SCH (06:24)
[2022-06-05] MEDS: CARBIDOPA/LEVODOPA 25-100MG TABLET GT SCH ×3 (06:24→21:14)
[2022-06-05] MEDS: FAMOTIDINE 20 MG TABLET GT SCH (06:25)
[2022-06-05 07:41] VITALS: TEMP 97.6
[2022-06-05] MEDS: HYDROGEN PEROXIDE 3% 118 ML BOTTLE TP SCH ×2 (07:45→19:08)
[2022-06-05 07:54] VITALS: O2SAT 98
[2022-06-05] MEDS: [UNRECOGNIZED DRUG - OTHER] GT SCH (08:31)
[2022-06-05] MEDS: [UNRECOGNIZED DRUG - OTHER] GT SCH ×2 (08:31→21:09)
[2022-06-05] MEDS: COD LIVER OIL/ZINC OXIDE OINT 113 GM TUBE TP SCH ×2 (08:32→21:14)
[2022-06-05] MEDS: VITAMINS A AND D OINT 42 GM TUBE TP SCH (08:35)
[2022-06-05] MEDS: OSMOLITE 1.2 CAL 1,000 ML LIQUID GT PRN (18:32)
[2022-06-05 20:00] VITALS: TEMP 97.8
[2022-06-05] MEDS: MINERAL OIL/PETROLAT OPHT OINT 3.5 GM TUBE EACHEYE SCH (21:08)
[2022-06-05] MEDS: PROTEIN SUPPLEMENT (PROSTAT) 30 ML LIQUID GT SCH (21:09)
[2022-06-05 21:58] VITALS: O2SAT 99
[2022-06-06] MEDS: POLYVINYL ALCOHOL OPHT DROPS 15 ML BOTTLE EACHEYE SCH ×6 (03:30→23:30)
[2022-06-06] MEDS: FAMOTIDINE 20 MG TABLET GT SCH (06:23)
[2022-06-06] MEDS: [UNRECOGNIZED DRUG - OTHER] GT SCH (06:23)
[2022-06-06] MEDS: CARBIDOPA/LEVODOPA 25-100MG TABLET GT SCH ×3 (06:23→21:07)
[2022-06-06] MEDS: LEVOTHYROXINE SODIUM 125 MCG TABLET PO SCH (06:23)
[2022-06-06] MEDS: CALCIUM CARB/VITAMIN D 600-400 MG TABLET GT SCH ×2 (06:23→17:16)
[2022-06-06 07:53] VITALS: TEMP 98
[2022-06-06] MEDS: HYDROGEN PEROXIDE 3% 118 ML BOTTLE TP SCH ×2 (08:02→21:20)
[2022-06-06] MEDS: [UNRECOGNIZED DRUG - OTHER] GT SCH (09:01)
[2022-06-06] MEDS: COD LIVER OIL/ZINC OXIDE OINT 113 GM TUBE TP SCH ×2 (09:01→21:07)
[2022-06-06] MEDS: VITAMINS A AND D OINT 42 GM TUBE TP SCH (09:01)
[2022-06-06] MEDS: [UNRECOGNIZED DRUG - OTHER] GT SCH ×2 (09:02→21:06)
[2022-06-06 12:33] VITALS: O2SAT 98
[2022-06-06 19:10] VITALS: O2SAT 99
[2022-06-06 20:00] VITALS: TEMP 97.4
[2022-06-06] MEDS: MINERAL OIL/PETROLAT OPHT OINT 3.5 GM TUBE EACHEYE SCH (21:06)
[2022-06-06] MEDS: PROTEIN SUPPLEMENT (PROSTAT) 30 ML LIQUID GT SCH (21:07)
[2022-06-07] MEDS: OSMOLITE 1.2 CAL 1,000 ML LIQUID GT PRN (01:35)
[2022-06-07] MEDS: POLYVINYL ALCOHOL OPHT DROPS 15 ML BOTTLE EACHEYE SCH ×6 (03:30→23:30)
[2022-06-07] MEDS: [UNRECOGNIZED DRUG - OTHER] GT SCH (05:52)
[2022-06-07] MEDS: CALCIUM CARB/VITAMIN D 600-400 MG TABLET GT SCH ×2 (05:52→17:16)
[2022-06-07] MEDS: FAMOTIDINE 20 MG TABLET GT SCH (05:53)
[2022-06-07] MEDS: CARBIDOPA/LEVODOPA 25-100MG TABLET GT SCH ×3 (05:53→21:06)
[2022-06-07] MEDS: LEVOTHYROXINE SODIUM 125 MCG TABLET PO SCH (05:53)
[2022-06-07 07:32] VITALS: TEMP 97
[2022-06-07] MEDS: HYDROGEN PEROXIDE 3% 118 ML BOTTLE TP SCH ×2 (08:27→20:57)
[2022-06-07] MEDS: COD LIVER OIL/ZINC OXIDE OINT 113 GM TUBE TP SCH ×2 (08:40→21:05)
[2022-06-07] MEDS: VITAMINS A AND D OINT 42 GM TUBE TP SCH (08:40)
[2022-06-07] MEDS: [UNRECOGNIZED DRUG - OTHER] GT SCH (08:45)
[2022-06-07] MEDS: [UNRECOGNIZED DRUG - OTHER] GT SCH ×2 (08:46→21:05)
[2022-06-07 10:30] VITALS: O2SAT 99
[2022-06-07 20:00] VITALS: TEMP 97.8
[2022-06-07] MEDS: PROTEIN SUPPLEMENT (PROSTAT) 30 ML LIQUID GT SCH (21:05)
[2022-06-07] MEDS: MINERAL OIL/PETROLAT OPHT OINT 3.5 GM TUBE EACHEYE SCH (21:05)
[2022-06-08] MEDS: POLYVINYL ALCOHOL OPHT DROPS 15 ML BOTTLE EACHEYE SCH ×6 (03:30→23:30)
[2022-06-08] MEDS: CARBIDOPA/LEVODOPA 25-100MG TABLET GT SCH ×3 (06:08→21:18)
[2022-06-08] MEDS: [UNRECOGNIZED DRUG - OTHER] GT SCH (06:08)
[2022-06-08] MEDS: LEVOTHYROXINE SODIUM 125 MCG TABLET PO SCH (06:08)
[2022-06-08] MEDS: CALCIUM CARB/VITAMIN D 600-400 MG TABLET GT SCH ×2 (06:08→17:26)
[2022-06-08] MEDS: FAMOTIDINE 20 MG TABLET GT SCH (06:35)
[2022-06-08 07:51] VITALS: TEMP 97.6
[2022-06-08] MEDS: [UNRECOGNIZED DRUG - OTHER] GT SCH (08:56)
[2022-06-08] MEDS: [UNRECOGNIZED DRUG - OTHER] GT SCH ×2 (08:56→21:16)
[2022-06-08] MEDS: VITAMINS A AND D OINT 42 GM TUBE TP SCH (08:57)
[2022-06-08] MEDS: COD LIVER OIL/ZINC OXIDE OINT 113 GM TUBE TP SCH ×2 (08:57→21:17)
[2022-06-08] MEDS: HYDROGEN PEROXIDE 3% 118 ML BOTTLE TP SCH ×2 (09:00→21:02)
[2022-06-08 10:56] VITALS: O2SAT 98
[2022-06-08 15:19] VITALS: O2SAT 98
[2022-06-08 19:20] VITALS: O2SAT 99
[2022-06-08 20:00] VITALS: TEMP 97.9
[2022-06-08] MEDS: MINERAL OIL/PETROLAT OPHT OINT 3.5 GM TUBE EACHEYE SCH (21:16)
[2022-06-08] MEDS: PROTEIN SUPPLEMENT (PROSTAT) 30 ML LIQUID GT SCH (21:17)
[2022-06-09] MEDS: POLYVINYL ALCOHOL OPHT DROPS 15 ML BOTTLE EACHEYE SCH ×6 (03:30→23:30)
[2022-06-09] MEDS: OSMOLITE 1.2 CAL 1,000 ML LIQUID GT PRN (05:04)
[2022-06-09] MEDS: FAMOTIDINE 20 MG TABLET GT SCH (05:40)
[2022-06-09] MEDS: CALCIUM CARB/VITAMIN D 600-400 MG TABLET GT SCH ×2 (05:40→17:44)
[2022-06-09] MEDS: CARBIDOPA/LEVODOPA 25-100MG TABLET GT SCH ×3 (05:40→22:00)
[2022-06-09] MEDS: LEVOTHYROXINE SODIUM 125 MCG TABLET PO SCH (05:40)
[2022-06-09] MEDS: [UNRECOGNIZED DRUG - OTHER] GT SCH (05:40)
[2022-06-09 06:30] VITALS: O2SAT 99
[2022-06-09] MEDS: HYDROGEN PEROXIDE 3% 118 ML BOTTLE TP SCH ×2 (07:41→20:54)
[2022-06-09] MEDS: COD LIVER OIL/ZINC OXIDE OINT 113 GM TUBE TP SCH ×2 (09:49→21:00)
[2022-06-09] MEDS: VITAMINS A AND D OINT 42 GM TUBE TP SCH (09:49)
[2022-06-09] MEDS: [UNRECOGNIZED DRUG - OTHER] GT SCH ×2 (09:49→21:00)
[2022-06-09] MEDS: [UNRECOGNIZED DRUG - OTHER] GT SCH (09:49)
[2022-06-09 10:35] VITALS: O2SAT 98
[2022-06-09 20:37] VITALS: TEMP 97
[2022-06-09] MEDS: PROTEIN SUPPLEMENT (PROSTAT) 30 ML LIQUID GT SCH (21:00)
[2022-06-09] MEDS: MINERAL OIL/PETROLAT OPHT OINT 3.5 GM TUBE EACHEYE SCH (21:00)
[2022-06-09 21:35] VITALS: O2SAT 98
[2022-06-10] MEDS: POLYVINYL ALCOHOL OPHT DROPS 15 ML BOTTLE EACHEYE SCH ×6 (03:30→23:30)
[2022-06-10] MEDS: CALCIUM CARB/VITAMIN D 600-400 MG TABLET GT SCH ×2 (05:26→17:10)
[2022-06-10] MEDS: CARBIDOPA/LEVODOPA 25-100MG TABLET GT SCH ×3 (05:26→22:15)
[2022-06-10] MEDS: FAMOTIDINE 20 MG TABLET GT SCH (05:35)
[2022-06-10] MEDS: [UNRECOGNIZED DRUG - OTHER] GT SCH (05:35)
[2022-06-10] MEDS: LEVOTHYROXINE SODIUM 125 MCG TABLET PO SCH (05:35)
[2022-06-10 08:00] VITALS: TEMP 97.8
[2022-06-10] MEDS: [UNRECOGNIZED DRUG - OTHER] GT SCH ×2 (09:20→20:48)
[2022-06-10] MEDS: COD LIVER OIL/ZINC OXIDE OINT 113 GM TUBE TP SCH ×2 (09:21→20:48)
[2022-06-10] MEDS: VITAMINS A AND D OINT 42 GM TUBE TP SCH (09:21)
[2022-06-10] MEDS: [UNRECOGNIZED DRUG - OTHER] GT SCH (09:21)
[2022-06-10] MEDS: HYDROGEN PEROXIDE 3% 118 ML BOTTLE TP SCH ×2 (09:48→19:28)
[2022-06-10 12:48] VITALS: O2SAT 98
[2022-06-10 20:00] VITALS: TEMP 97.3; TEMP 97.6
[2022-06-10] MEDS: MINERAL OIL/PETROLAT OPHT OINT 3.5 GM TUBE EACHEYE SCH (20:48)
[2022-06-10] MEDS: PROTEIN SUPPLEMENT (PROSTAT) 30 ML LIQUID GT SCH (20:48)
[2022-06-10 21:22] VITALS: O2SAT 98
[2022-06-11] MEDS: OSMOLITE 1.2 CAL 1,000 ML LIQUID GT PRN (03:37)
[2022-06-11] MEDS: POLYVINYL ALCOHOL OPHT DROPS 15 ML BOTTLE EACHEYE SCH ×6 (03:37→23:30)
[2022-06-11] MEDS: LEVOTHYROXINE SODIUM 125 MCG TABLET PO SCH (05:28)
[2022-06-11] MEDS: [UNRECOGNIZED DRUG - OTHER] GT SCH (05:28)
[2022-06-11] MEDS: CALCIUM CARB/VITAMIN D 600-400 MG TABLET GT SCH ×2 (05:28→17:19)
[2022-06-11] MEDS: CARBIDOPA/LEVODOPA 25-100MG TABLET GT SCH ×3 (05:28→21:31)
[2022-06-11] MEDS: FAMOTIDINE 20 MG TABLET GT SCH (05:31)
[2022-06-11 08:00] VITALS: TEMP 97.8
[2022-06-11] MEDS: HYDROGEN PEROXIDE 3% 118 ML BOTTLE TP SCH ×2 (08:06→20:44)
[2022-06-11] MEDS: [UNRECOGNIZED DRUG - OTHER] GT SCH ×2 (08:14→21:31)
[2022-06-11] MEDS: VITAMINS A AND D OINT 42 GM TUBE TP SCH (08:15)
[2022-06-11] MEDS: COD LIVER OIL/ZINC OXIDE OINT 113 GM TUBE TP SCH ×2 (08:15→21:31)
[2022-06-11] MEDS: [UNRECOGNIZED DRUG - OTHER] GT SCH (08:15)
[2022-06-11 10:30] VITALS: O2SAT 97
[2022-06-11 19:05] VITALS: O2SAT 98
[2022-06-11 20:00] VITALS: TEMP 97.6
[2022-06-11] MEDS: MINERAL OIL/PETROLAT OPHT OINT 3.5 GM TUBE EACHEYE SCH (21:31)
[2022-06-11] MEDS: PROTEIN SUPPLEMENT (PROSTAT) 30 ML LIQUID GT SCH (21:31)
[2022-06-12] MEDS: POLYVINYL ALCOHOL OPHT DROPS 15 ML BOTTLE EACHEYE SCH ×6 (03:30→23:30)
[2022-06-12] MEDS: CARBIDOPA/LEVODOPA 25-100MG TABLET GT SCH ×3 (05:31→21:24)
[2022-06-12] MEDS: FAMOTIDINE 20 MG TABLET GT SCH (05:31)
[2022-06-12] MEDS: CALCIUM CARB/VITAMIN D 600-400 MG TABLET GT SCH ×2 (05:31→17:54)
[2022-06-12] MEDS: LEVOTHYROXINE SODIUM 125 MCG TABLET PO SCH (05:31)
[2022-06-12] MEDS: [UNRECOGNIZED DRUG - OTHER] GT SCH (05:31)
[2022-06-12] MEDS: ALENDRONATE SODIUM 70 MG GT SCH (05:48)
[2022-06-12 07:31] VITALS: TEMP 97.7
[2022-06-12] MEDS: HYDROGEN PEROXIDE 3% 118 ML BOTTLE TP SCH ×2 (08:04→19:07)
[2022-06-12] MEDS: VITAMINS A AND D OINT 42 GM TUBE TP SCH (09:00)
[2022-06-12] MEDS: [UNRECOGNIZED DRUG - OTHER] GT SCH (09:00)
[2022-06-12] MEDS: [UNRECOGNIZED DRUG - OTHER] GT SCH ×2 (09:00→21:24)
[2022-06-12] MEDS: COD LIVER OIL/ZINC OXIDE OINT 113 GM TUBE TP SCH ×2 (09:00→21:24)
[2022-06-12] MEDS: diphenhydrAMINE 25 MG/10 ML UDC GT PRN (10:33)
[2022-06-12 11:13] VITALS: O2SAT 98
[2022-06-12] MEDS: OSMOLITE 1.2 CAL 1,000 ML LIQUID GT PRN (15:15)
[2022-06-12 20:00] VITALS: TEMP 97.8
[2022-06-12] MEDS: PROTEIN SUPPLEMENT (PROSTAT) 30 ML LIQUID GT SCH (21:24)
[2022-06-12] MEDS: MINERAL OIL/PETROLAT OPHT OINT 3.5 GM TUBE EACHEYE SCH (21:24)
[2022-06-12 22:43] VITALS: O2SAT 98
[2022-06-13] MEDS: POLYVINYL ALCOHOL OPHT DROPS 15 ML BOTTLE EACHEYE SCH ×6 (04:12→23:30)
[2022-06-13] MEDS: LEVOTHYROXINE SODIUM 125 MCG TABLET PO SCH (05:09)
[2022-06-13] MEDS: [UNRECOGNIZED DRUG - OTHER] GT SCH (05:09)
[2022-06-13] MEDS: CALCIUM CARB/VITAMIN D 600-400 MG TABLET GT SCH ×2 (05:09→17:29)
[2022-06-13] MEDS: CARBIDOPA/LEVODOPA 25-100MG TABLET GT SCH ×3 (05:09→22:28)
[2022-06-13] MEDS: FAMOTIDINE 20 MG TABLET GT SCH (05:49)
[2022-06-13 08:09] VITALS: TEMP 97.3; O2SAT 98
[2022-06-13] MEDS: HYDROGEN PEROXIDE 3% 118 ML BOTTLE TP SCH ×2 (08:16→19:15)
[2022-06-13] MEDS: [UNRECOGNIZED DRUG - OTHER] GT SCH ×2 (09:34→20:38)
[2022-06-13] MEDS: VITAMINS A AND D OINT 42 GM TUBE TP SCH (09:34)
[2022-06-13] MEDS: [UNRECOGNIZED DRUG - OTHER] GT SCH (09:34)
[2022-06-13] MEDS: COD LIVER OIL/ZINC OXIDE OINT 113 GM TUBE TP SCH ×2 (09:34→20:38)
[2022-06-13 19:10] VITALS: O2SAT 98
[2022-06-13 20:00] VITALS: TEMP 98.2
[2022-06-13] MEDS: PROTEIN SUPPLEMENT (PROSTAT) 30 ML LIQUID GT SCH (20:38)
[2022-06-13] MEDS: MINERAL OIL/PETROLAT OPHT OINT 3.5 GM TUBE EACHEYE SCH (20:38)
[2022-06-14] MEDS: POLYVINYL ALCOHOL OPHT DROPS 15 ML BOTTLE EACHEYE SCH ×6 (03:30→23:47)
[2022-06-14] MEDS: CARBIDOPA/LEVODOPA 25-100MG TABLET GT SCH ×3 (05:49→21:58)
[2022-06-14] MEDS: [UNRECOGNIZED DRUG - OTHER] GT SCH (05:49)
[2022-06-14] MEDS: FAMOTIDINE 20 MG TABLET GT SCH (05:49)
[2022-06-14] MEDS: CALCIUM CARB/VITAMIN D 600-400 MG TABLET GT SCH ×2 (05:49→17:10)
[2022-06-14] MEDS: LEVOTHYROXINE SODIUM 125 MCG TABLET PO SCH (05:49)
[2022-06-14] MEDS: HYDROGEN PEROXIDE 3% 118 ML BOTTLE TP SCH ×2 (07:05→19:19)
[2022-06-14 08:03] VITALS: TEMP 98.2
[2022-06-14] MEDS: [UNRECOGNIZED DRUG - OTHER] GT SCH (08:32)
[2022-06-14] MEDS: COD LIVER OIL/ZINC OXIDE OINT 113 GM TUBE TP SCH ×2 (08:32→20:33)
[2022-06-14] MEDS: [UNRECOGNIZED DRUG - OTHER] GT SCH ×2 (08:32→20:33)
[2022-06-14] MEDS: VITAMINS A AND D OINT 42 GM TUBE TP SCH (08:33)
[2022-06-14 10:20] VITALS: O2SAT 97
[2022-06-14] MEDS: OSMOLITE 1.2 CAL 1,000 ML LIQUID GT PRN (18:00)
[2022-06-14 20:00] VITALS: TEMP 97.8
[2022-06-14] MEDS: PROTEIN SUPPLEMENT (PROSTAT) 30 ML LIQUID GT SCH (20:33)
[2022-06-14] MEDS: MINERAL OIL/PETROLAT OPHT OINT 3.5 GM TUBE EACHEYE SCH (20:33)
[2022-06-14 22:28] VITALS: O2SAT 98
[2022-06-15] MEDS: POLYVINYL ALCOHOL OPHT DROPS 15 ML BOTTLE EACHEYE SCH ×6 (03:45→23:30)
[2022-06-15] MEDS: FAMOTIDINE 20 MG TABLET GT SCH (05:59)
[2022-06-15] MEDS: CALCIUM CARB/VITAMIN D 600-400 MG TABLET GT SCH ×2 (05:59→17:35)
[2022-06-15] MEDS: LEVOTHYROXINE SODIUM 125 MCG TABLET PO SCH (05:59)
[2022-06-15] MEDS: [UNRECOGNIZED DRUG - OTHER] GT SCH (05:59)
[2022-06-15] MEDS: CARBIDOPA/LEVODOPA 25-100MG TABLET GT SCH ×3 (05:59→22:42)
[2022-06-15 07:35] VITALS: TEMP 98.3
[2022-06-15] MEDS: [UNRECOGNIZED DRUG - OTHER] GT SCH (09:07)
[2022-06-15] MEDS: [UNRECOGNIZED DRUG - OTHER] GT SCH ×2 (09:07→20:47)
[2022-06-15] MEDS: VITAMINS A AND D OINT 42 GM TUBE TP SCH (09:08)
[2022-06-15] MEDS: COD LIVER OIL/ZINC OXIDE OINT 113 GM TUBE TP SCH ×2 (09:08→20:47)
[2022-06-15] MEDS: HYDROGEN PEROXIDE 3% 118 ML BOTTLE TP SCH ×2 (09:36→19:15)
[2022-06-15 10:40] VITALS: O2SAT 98
[2022-06-15] MEDS: diphenhydrAMINE 25 MG/10 ML UDC GT PRN (17:36)
[2022-06-15] MEDS: OSMOLITE 1.2 CAL 1,000 ML LIQUID GT PRN (18:40)
[2022-06-15 20:00] VITALS: TEMP 97.4
[2022-06-15] MEDS: MINERAL OIL/PETROLAT OPHT OINT 3.5 GM TUBE EACHEYE SCH (20:47)
[2022-06-15] MEDS: PROTEIN SUPPLEMENT (PROSTAT) 30 ML LIQUID GT SCH (20:47)
[2022-06-15 21:23] VITALS: O2SAT 98
[2022-06-16] MEDS: POLYVINYL ALCOHOL OPHT DROPS 15 ML BOTTLE EACHEYE SCH ×6 (04:19→23:30)
[2022-06-16] MEDS: FAMOTIDINE 20 MG TABLET GT SCH (05:33)
[2022-06-16] MEDS: CARBIDOPA/LEVODOPA 25-100MG TABLET GT SCH ×3 (05:33→21:20)
[2022-06-16] MEDS: LEVOTHYROXINE SODIUM 125 MCG TABLET PO SCH (05:33)
[2022-06-16] MEDS: [UNRECOGNIZED DRUG - OTHER] GT SCH (05:33)
[2022-06-16] MEDS: CALCIUM CARB/VITAMIN D 600-400 MG TABLET GT SCH ×2 (05:33→17:06)
[2022-06-16 07:41] VITALS: TEMP 97.6
[2022-06-16] MEDS: [UNRECOGNIZED DRUG - OTHER] GT SCH ×2 (08:33→20:39)
[2022-06-16] MEDS: VITAMINS A AND D OINT 42 GM TUBE TP SCH (08:38)
[2022-06-16] MEDS: COD LIVER OIL/ZINC OXIDE OINT 113 GM TUBE TP SCH ×2 (08:38→20:39)
[2022-06-16] MEDS: [UNRECOGNIZED DRUG - OTHER] GT SCH (08:38)
[2022-06-16] MEDS: HYDROGEN PEROXIDE 3% 118 ML BOTTLE TP SCH ×2 (09:20→19:15)
[2022-06-16 10:25] VITALS: O2SAT 98
[2022-06-16 19:15] VITALS: O2SAT 99
[2022-06-16 20:00] VITALS: TEMP 98.6
[2022-06-16] MEDS: MINERAL OIL/PETROLAT OPHT OINT 3.5 GM TUBE EACHEYE SCH (20:39)
[2022-06-16] MEDS: PROTEIN SUPPLEMENT (PROSTAT) 30 ML LIQUID GT SCH (20:39)
[2022-06-17] MEDS: POLYVINYL ALCOHOL OPHT DROPS 15 ML BOTTLE EACHEYE SCH ×6 (04:04→23:32)
[2022-06-17] MEDS: CARBIDOPA/LEVODOPA 25-100MG TABLET GT SCH ×3 (05:14→22:20)
[2022-06-17] MEDS: LEVOTHYROXINE SODIUM 125 MCG TABLET PO SCH (05:14)
[2022-06-17] MEDS: CALCIUM CARB/VITAMIN D 600-400 MG TABLET GT SCH ×2 (05:14→17:48)
[2022-06-17] MEDS: [UNRECOGNIZED DRUG - OTHER] GT SCH (05:14)
[2022-06-17] MEDS: FAMOTIDINE 20 MG TABLET GT SCH (05:37)
[2022-06-17] MEDS: HYDROGEN PEROXIDE 3% 118 ML BOTTLE TP SCH ×2 (07:29→20:39)
[2022-06-17 07:31] VITALS: TEMP 97.8
[2022-06-17] MEDS: [UNRECOGNIZED DRUG - OTHER] GT SCH (09:00)
[2022-06-17] MEDS: [UNRECOGNIZED DRUG - OTHER] GT SCH ×2 (09:00→21:00)
[2022-06-17] MEDS: VITAMINS A AND D OINT 42 GM TUBE TP SCH (09:50)
[2022-06-17] MEDS: COD LIVER OIL/ZINC OXIDE OINT 113 GM TUBE TP SCH ×2 (09:50→21:00)
[2022-06-17 10:00] VITALS: TEMP 98.3
[2022-06-17 10:10] VITALS: O2SAT 99
[2022-06-17 20:00] VITALS: TEMP 97.7
[2022-06-17 20:35] VITALS: O2SAT 99
[2022-06-17] MEDS: MINERAL OIL/PETROLAT OPHT OINT 3.5 GM TUBE EACHEYE SCH (21:00)
[2022-06-17] MEDS: PROTEIN SUPPLEMENT (PROSTAT) 30 ML LIQUID GT SCH (21:00)
[2022-06-18] MEDS: POLYVINYL ALCOHOL OPHT DROPS 15 ML BOTTLE EACHEYE SCH ×6 (04:14→23:30)
[2022-06-18] MEDS: [UNRECOGNIZED DRUG - OTHER] GT SCH (06:07)
[2022-06-18] MEDS: CALCIUM CARB/VITAMIN D 600-400 MG TABLET GT SCH ×2 (06:07→18:21)
[2022-06-18] MEDS: CARBIDOPA/LEVODOPA 25-100MG TABLET GT SCH ×3 (06:09→21:16)
[2022-06-18] MEDS: LEVOTHYROXINE SODIUM 125 MCG TABLET PO SCH (06:11)
[2022-06-18] MEDS: FAMOTIDINE 20 MG TABLET GT SCH (06:11)
[2022-06-18] MEDS: HYDROGEN PEROXIDE 3% 118 ML BOTTLE TP SCH ×2 (08:50→19:25)
[2022-06-18 09:26] VITALS: TEMP 97.8
[2022-06-18] MEDS: COD LIVER OIL/ZINC OXIDE OINT 113 GM TUBE TP SCH ×2 (09:55→21:16)
[2022-06-18] MEDS: VITAMINS A AND D OINT 42 GM TUBE TP SCH (09:55)
[2022-06-18] MEDS: [UNRECOGNIZED DRUG - OTHER] GT SCH (09:55)
[2022-06-18] MEDS: [UNRECOGNIZED DRUG - OTHER] GT SCH ×2 (09:55→21:16)
[2022-06-18 10:30] VITALS: O2SAT 97
[2022-06-18 19:25] VITALS: O2SAT 99
[2022-06-18 20:38] VITALS: TEMP 97.6
[2022-06-18] MEDS: PROTEIN SUPPLEMENT (PROSTAT) 30 ML LIQUID GT SCH (21:16)
[2022-06-18] MEDS: MINERAL OIL/PETROLAT OPHT OINT 3.5 GM TUBE EACHEYE SCH (21:16)
[2022-06-19] MEDS: POLYVINYL ALCOHOL OPHT DROPS 15 ML BOTTLE EACHEYE SCH ×5 (03:26→19:30)
[2022-06-19] MEDS: CARBIDOPA/LEVODOPA 25-100MG TABLET GT SCH ×3 (05:18→21:14)
[2022-06-19] MEDS: ALENDRONATE SODIUM 70 MG GT SCH (05:18)
[2022-06-19] MEDS: LEVOTHYROXINE SODIUM 125 MCG TABLET PO SCH (05:18)
[2022-06-19] MEDS: [UNRECOGNIZED DRUG - OTHER] GT SCH (05:18)
[2022-06-19] MEDS: CALCIUM CARB/VITAMIN D 600-400 MG TABLET GT SCH ×2 (05:18→17:25)
[2022-06-19] MEDS: FAMOTIDINE 20 MG TABLET GT SCH (05:48)
[2022-06-19 07:51] VITALS: O2SAT 98
[2022-06-19] MEDS: HYDROGEN PEROXIDE 3% 118 ML BOTTLE TP SCH ×2 (07:51→19:18)
[2022-06-19 08:00] VITALS: TEMP 97.2
[2022-06-19] MEDS: COD LIVER OIL/ZINC OXIDE OINT 113 GM TUBE TP SCH ×2 (09:12→21:14)
[2022-06-19] MEDS: [UNRECOGNIZED DRUG - OTHER] GT SCH ×2 (09:12→21:13)
[2022-06-19] MEDS: VITAMINS A AND D OINT 42 GM TUBE TP SCH (09:12)
[2022-06-19] MEDS: [UNRECOGNIZED DRUG - OTHER] GT SCH (09:12)
[2022-06-19] MEDS: OSMOLITE 1.2 CAL 1,000 ML LIQUID GT PRN (17:25)
[2022-06-19 20:00] VITALS: TEMP 98.4
[2022-06-19] MEDS: MINERAL OIL/PETROLAT OPHT OINT 3.5 GM TUBE EACHEYE SCH (21:13)
[2022-06-19] MEDS: PROTEIN SUPPLEMENT (PROSTAT) 30 ML LIQUID GT SCH (21:13)
[2022-06-19 21:36] VITALS: O2SAT 99
[2022-06-20] MEDS: POLYVINYL ALCOHOL OPHT DROPS 15 ML BOTTLE EACHEYE SCH ×6 (00:01→19:30)
[2022-06-20] MEDS: CALCIUM CARB/VITAMIN D 600-400 MG TABLET GT SCH ×2 (05:49→17:15)
[2022-06-20] MEDS: CARBIDOPA/LEVODOPA 25-100MG TABLET GT SCH ×3 (05:49→21:30)
[2022-06-20] MEDS: FAMOTIDINE 20 MG TABLET GT SCH (05:49)
[2022-06-20] MEDS: LEVOTHYROXINE SODIUM 125 MCG TABLET PO SCH (05:49)
[2022-06-20] MEDS: [UNRECOGNIZED DRUG - OTHER] GT SCH (05:49)
[2022-06-20 08:00] VITALS: TEMP 98.3
[2022-06-20] MEDS: [UNRECOGNIZED DRUG - OTHER] GT SCH (08:00)
[2022-06-20] MEDS: COD LIVER OIL/ZINC OXIDE OINT 113 GM TUBE TP SCH ×2 (08:00→21:30)
[2022-06-20] MEDS: [UNRECOGNIZED DRUG - OTHER] GT SCH ×2 (08:00→21:30)
[2022-06-20] MEDS: VITAMINS A AND D OINT 42 GM TUBE TP SCH (08:00)
[2022-06-20] MEDS: HYDROGEN PEROXIDE 3% 118 ML BOTTLE TP SCH ×2 (09:00→19:13)
[2022-06-20 10:00] VITALS: TEMP 98.3
[2022-06-20 10:09] VITALS: O2SAT 98
[2022-06-20 20:18] VITALS: TEMP 98
[2022-06-20] MEDS: PROTEIN SUPPLEMENT (PROSTAT) 30 ML LIQUID GT SCH (21:30)
[2022-06-20] MEDS: OSMOLITE 1.2 CAL 1,000 ML LIQUID GT PRN (21:30)
[2022-06-20] MEDS: MINERAL OIL/PETROLAT OPHT OINT 3.5 GM TUBE EACHEYE SCH (21:30)
[2022-06-20 21:32] VITALS: O2SAT 99
[2022-06-21] MEDS: POLYVINYL ALCOHOL OPHT DROPS 15 ML BOTTLE EACHEYE SCH ×7 (00:17→23:30)
[2022-06-21] MEDS: CARBIDOPA/LEVODOPA 25-100MG TABLET GT SCH ×3 (06:01→21:29)
[2022-06-21] MEDS: [UNRECOGNIZED DRUG - OTHER] GT SCH (06:01)
[2022-06-21] MEDS: CALCIUM CARB/VITAMIN D 600-400 MG TABLET GT SCH ×2 (06:01→18:00)
[2022-06-21] MEDS: FAMOTIDINE 20 MG TABLET GT SCH (06:01)
[2022-06-21] MEDS: LEVOTHYROXINE SODIUM 125 MCG TABLET PO SCH (06:01)
[2022-06-21 07:35] VITALS: TEMP 97.6
[2022-06-21 07:55] VITALS: O2SAT 98
[2022-06-21] MEDS: [UNRECOGNIZED DRUG - OTHER] GT SCH ×2 (08:44→21:28)
[2022-06-21] MEDS: [UNRECOGNIZED DRUG - OTHER] GT SCH (08:44)
[2022-06-21] MEDS: COD LIVER OIL/ZINC OXIDE OINT 113 GM TUBE TP SCH ×2 (08:44→21:29)
[2022-06-21] MEDS: VITAMINS A AND D OINT 42 GM TUBE TP SCH (08:44)
[2022-06-21] MEDS: HYDROGEN PEROXIDE 3% 118 ML BOTTLE TP SCH ×2 (09:25→19:59)
[2022-06-21 19:05] VITALS: O2SAT 99
[2022-06-21 20:00] VITALS: TEMP 97.4
[2022-06-21] MEDS: PROTEIN SUPPLEMENT (PROSTAT) 30 ML LIQUID GT SCH (21:28)
[2022-06-21] MEDS: MINERAL OIL/PETROLAT OPHT OINT 3.5 GM TUBE EACHEYE SCH (21:28)
[2022-06-22] MEDS: POLYVINYL ALCOHOL OPHT DROPS 15 ML BOTTLE EACHEYE SCH ×6 (03:30→23:30)
[2022-06-22] MEDS: OSMOLITE 1.2 CAL 1,000 ML LIQUID GT PRN (04:15)
[2022-06-22] MEDS: [UNRECOGNIZED DRUG - OTHER] GT SCH (05:46)
[2022-06-22] MEDS: FAMOTIDINE 20 MG TABLET GT SCH (05:46)
[2022-06-22] MEDS: CALCIUM CARB/VITAMIN D 600-400 MG TABLET GT SCH ×2 (05:46→17:05)
[2022-06-22] MEDS: CARBIDOPA/LEVODOPA 25-100MG TABLET GT SCH ×3 (05:46→22:02)
[2022-06-22] MEDS: LEVOTHYROXINE SODIUM 125 MCG TABLET PO SCH (05:46)
[2022-06-22 07:21] VITALS: O2SAT 98
[2022-06-22 07:44] VITALS: TEMP 98.1
[2022-06-22] MEDS: [UNRECOGNIZED DRUG - OTHER] GT SCH (09:00)
[2022-06-22] MEDS: VITAMINS A AND D OINT 42 GM TUBE TP SCH (09:00)
[2022-06-22] MEDS: HYDROGEN PEROXIDE 3% 118 ML BOTTLE TP SCH ×2 (09:00→20:56)
[2022-06-22] MEDS: COD LIVER OIL/ZINC OXIDE OINT 113 GM TUBE TP SCH ×2 (09:00→20:49)
[2022-06-22] MEDS: [UNRECOGNIZED DRUG - OTHER] GT SCH ×2 (09:00→20:49)
[2022-06-22] MEDS: NYSTATIN CREAM 30 GM TUBE TOP SCH ×2 (09:00→20:49)
[2022-06-22 20:00] VITALS: TEMP 97.8
[2022-06-22] MEDS: MINERAL OIL/PETROLAT OPHT OINT 3.5 GM TUBE EACHEYE SCH (20:49)
[2022-06-22] MEDS: PROTEIN SUPPLEMENT (PROSTAT) 30 ML LIQUID GT SCH (20:49)
[2022-06-22 21:10] VITALS: O2SAT 98
[2022-06-23] MEDS: POLYVINYL ALCOHOL OPHT DROPS 15 ML BOTTLE EACHEYE SCH ×6 (03:30→23:30)
[2022-06-23] MEDS: CALCIUM CARB/VITAMIN D 600-400 MG TABLET GT SCH ×2 (05:39→17:15)
[2022-06-23] MEDS: FAMOTIDINE 20 MG TABLET GT SCH (05:39)
[2022-06-23] MEDS: [UNRECOGNIZED DRUG - OTHER] GT SCH (05:39)
[2022-06-23] MEDS: LEVOTHYROXINE SODIUM 125 MCG TABLET PO SCH (05:39)
[2022-06-23] MEDS: CARBIDOPA/LEVODOPA 25-100MG TABLET GT SCH ×3 (05:39→21:42)
[2022-06-23] MEDS: OSMOLITE 1.2 CAL 1,000 ML LIQUID GT PRN (05:39)
[2022-06-23 07:56] VITALS: O2SAT 98
[2022-06-23 08:00] VITALS: TEMP 97.8
[2022-06-23] MEDS: NYSTATIN CREAM 30 GM TUBE TOP SCH ×2 (08:01→21:42)
[2022-06-23] MEDS: [UNRECOGNIZED DRUG - OTHER] GT SCH ×2 (08:01→21:41)
[2022-06-23] MEDS: COD LIVER OIL/ZINC OXIDE OINT 113 GM TUBE TP SCH ×2 (08:01→21:42)
[2022-06-23] MEDS: [UNRECOGNIZED DRUG - OTHER] GT SCH (08:01)
[2022-06-23] MEDS: VITAMINS A AND D OINT 42 GM TUBE TP SCH (08:01)
[2022-06-23] MEDS: HYDROGEN PEROXIDE 3% 118 ML BOTTLE TP SCH ×2 (09:00→21:53)
[2022-06-23 11:02] VITALS: TEMP 97.8
[2022-06-23 13:26] VITALS: O2SAT 98
[2022-06-23 20:05] VITALS: O2SAT 99
[2022-06-23 20:57] VITALS: TEMP 98
[2022-06-23] MEDS: PROTEIN SUPPLEMENT (PROSTAT) 30 ML LIQUID GT SCH (21:41)
[2022-06-23] MEDS: MINERAL OIL/PETROLAT OPHT OINT 3.5 GM TUBE EACHEYE SCH (21:41)
[2022-06-24] MEDS: POLYVINYL ALCOHOL OPHT DROPS 15 ML BOTTLE EACHEYE SCH ×6 (04:00→23:30)
[2022-06-24] MEDS: CALCIUM CARB/VITAMIN D 600-400 MG TABLET GT SCH ×2 (05:15→17:27)
[2022-06-24] MEDS: LEVOTHYROXINE SODIUM 125 MCG TABLET PO SCH (05:15)
[2022-06-24] MEDS: CARBIDOPA/LEVODOPA 25-100MG TABLET GT SCH ×3 (05:15→21:45)
[2022-06-24] MEDS: [UNRECOGNIZED DRUG - OTHER] GT SCH (05:15)
[2022-06-24] MEDS: FAMOTIDINE 20 MG TABLET GT SCH (05:45)
[2022-06-24 08:00] VITALS: TEMP 97.5
[2022-06-24] MEDS: HYDROGEN PEROXIDE 3% 118 ML BOTTLE TP SCH ×2 (08:02→21:04)
[2022-06-24] MEDS: [UNRECOGNIZED DRUG - OTHER] GT SCH (08:16)
[2022-06-24] MEDS: NYSTATIN CREAM 30 GM TUBE TOP SCH ×2 (08:16→20:13)
[2022-06-24] MEDS: [UNRECOGNIZED DRUG - OTHER] GT SCH ×2 (08:16→20:12)
[2022-06-24] MEDS: COD LIVER OIL/ZINC OXIDE OINT 113 GM TUBE TP SCH ×2 (08:16→20:13)
[2022-06-24] MEDS: VITAMINS A AND D OINT 42 GM TUBE TP SCH (08:16)
[2022-06-24] MEDS: diphenhydrAMINE 25 MG/10 ML UDC GT PRN ×2 (08:17→17:28)
[2022-06-24 14:03] VITALS: O2SAT 98
[2022-06-24] MEDS: OSMOLITE 1.2 CAL 1,000 ML LIQUID GT PRN (16:21)
[2022-06-24 19:25] VITALS: O2SAT 98
[2022-06-24 19:56] VITALS: TEMP 98.3
[2022-06-24] MEDS: MINERAL OIL/PETROLAT OPHT OINT 3.5 GM TUBE EACHEYE SCH (20:12)
[2022-06-24] MEDS: PROTEIN SUPPLEMENT (PROSTAT) 30 ML LIQUID GT SCH (20:12)
[2022-06-25] MEDS: POLYVINYL ALCOHOL OPHT DROPS 15 ML BOTTLE EACHEYE SCH ×5 (04:09→19:30)
[2022-06-25] MEDS: CARBIDOPA/LEVODOPA 25-100MG TABLET GT SCH ×3 (05:10→21:17)
[2022-06-25] MEDS: CALCIUM CARB/VITAMIN D 600-400 MG TABLET GT SCH ×2 (05:10→17:29)
[2022-06-25] MEDS: [UNRECOGNIZED DRUG - OTHER] GT SCH (05:10)
[2022-06-25] MEDS: LEVOTHYROXINE SODIUM 125 MCG TABLET PO SCH (05:10)
[2022-06-25] MEDS: FAMOTIDINE 20 MG TABLET GT SCH (05:32)
[2022-06-25 07:26] VITALS: O2SAT 98
[2022-06-25 08:00] VITALS: TEMP 97.3
[2022-06-25] MEDS: [UNRECOGNIZED DRUG - OTHER] GT SCH (08:55)
[2022-06-25] MEDS: NYSTATIN CREAM 30 GM TUBE TOP SCH ×2 (09:00→21:17)
[2022-06-25] MEDS: COD LIVER OIL/ZINC OXIDE OINT 113 GM TUBE TP SCH ×2 (09:02→21:17)
[2022-06-25] MEDS: VITAMINS A AND D OINT 42 GM TUBE TP SCH (09:02)
[2022-06-25] MEDS: [UNRECOGNIZED DRUG - OTHER] GT SCH ×2 (09:02→21:15)
[2022-06-25] MEDS: HYDROGEN PEROXIDE 3% 118 ML BOTTLE TP SCH ×2 (09:15→20:16)
[2022-06-25 19:55] VITALS: TEMP 98
[2022-06-25 20:40] VITALS: O2SAT 99
[2022-06-25] MEDS: MINERAL OIL/PETROLAT OPHT OINT 3.5 GM TUBE EACHEYE SCH (21:15)
[2022-06-25] MEDS: PROTEIN SUPPLEMENT (PROSTAT) 30 ML LIQUID GT SCH (21:16)
[2022-06-26] MEDS: POLYVINYL ALCOHOL OPHT DROPS 15 ML BOTTLE EACHEYE SCH ×7 (00:10→23:30)
[2022-06-26] MEDS: OSMOLITE 1.2 CAL 1,000 ML LIQUID GT PRN (00:11)
[2022-06-26] MEDS: CALCIUM CARB/VITAMIN D 600-400 MG TABLET GT SCH ×2 (05:20→17:07)
[2022-06-26] MEDS: CARBIDOPA/LEVODOPA 25-100MG TABLET GT SCH ×3 (05:20→21:25)
[2022-06-26] MEDS: ALENDRONATE SODIUM 70 MG GT SCH (05:20)
[2022-06-26] MEDS: [UNRECOGNIZED DRUG - OTHER] GT SCH (05:20)
[2022-06-26] MEDS: LEVOTHYROXINE SODIUM 125 MCG TABLET PO SCH (05:20)
[2022-06-26] MEDS: FAMOTIDINE 20 MG TABLET GT SCH (05:35)
[2022-06-26 07:43] VITALS: TEMP 98.2
[2022-06-26] MEDS: HYDROGEN PEROXIDE 3% 118 ML BOTTLE TP SCH ×2 (08:03→21:46)
[2022-06-26] MEDS: [UNRECOGNIZED DRUG - OTHER] GT SCH ×2 (08:28→21:24)
[2022-06-26] MEDS: [UNRECOGNIZED DRUG - OTHER] GT SCH (08:28)
[2022-06-26] MEDS: VITAMINS A AND D OINT 42 GM TUBE TP SCH (08:29)
[2022-06-26] MEDS: NYSTATIN CREAM 30 GM TUBE TOP SCH ×2 (08:29→21:25)
[2022-06-26] MEDS: COD LIVER OIL/ZINC OXIDE OINT 113 GM TUBE TP SCH ×2 (08:29→21:25)
[2022-06-26 13:17] VITALS: O2SAT 98
[2022-06-26] MEDS ORDERED: [UNRECOGNIZED DRUG - OTHER] IM ONE (15:30)
[2022-06-26 16:00] VITALS: BP 118/66; TEMP 97.8; O2SAT 98
[2022-06-26 21:00] VITALS: O2SAT 99
[2022-06-26] MEDS: MINERAL OIL/PETROLAT OPHT OINT 3.5 GM TUBE EACHEYE SCH (21:24)
[2022-06-26] MEDS: PROTEIN SUPPLEMENT (PROSTAT) 30 ML LIQUID GT SCH (21:24)
[2022-06-26 21:38] VITALS: TEMP 97.6
[2022-06-27] MEDS: POLYVINYL ALCOHOL OPHT DROPS 15 ML BOTTLE EACHEYE SCH ×6 (03:30→23:30)
[2022-06-27] MEDS: OSMOLITE 1.2 CAL 1,000 ML LIQUID GT PRN (05:50)
[2022-06-27] MEDS: CALCIUM CARB/VITAMIN D 600-400 MG TABLET GT SCH ×2 (05:50→17:11)
[2022-06-27] MEDS: FAMOTIDINE 20 MG TABLET GT SCH (05:50)
[2022-06-27] MEDS: LEVOTHYROXINE SODIUM 125 MCG TABLET PO SCH (05:50)
[2022-06-27] MEDS: CARBIDOPA/LEVODOPA 25-100MG TABLET GT SCH ×3 (05:50→21:12)
[2022-06-27] MEDS: [UNRECOGNIZED DRUG - OTHER] GT SCH (05:50)
[2022-06-27 07:55] VITALS: TEMP 97.4
[2022-06-27] MEDS: VITAMINS A AND D OINT 42 GM TUBE TP SCH (08:05)
[2022-06-27] MEDS: COD LIVER OIL/ZINC OXIDE OINT 113 GM TUBE TP SCH ×2 (08:05→21:12)
[2022-06-27] MEDS: [UNRECOGNIZED DRUG - OTHER] GT SCH ×2 (08:05→21:11)
[2022-06-27] MEDS: [UNRECOGNIZED DRUG - OTHER] GT SCH (08:05)
[2022-06-27] MEDS: NYSTATIN CREAM 30 GM TUBE TOP SCH ×2 (08:05→21:12)
[2022-06-27] MEDS: HYDROGEN PEROXIDE 3% 118 ML BOTTLE TP SCH ×2 (09:00→19:15)
[2022-06-27 10:44] VITALS: O2SAT 98
[2022-06-27] MEDS: LOPERAMIDE HCL 2 MG/15 ML GT PRN (12:39)
[2022-06-27 19:40] VITALS: O2SAT 99
[2022-06-27 20:00] VITALS: TEMP 97.9
[2022-06-27] MEDS: MINERAL OIL/PETROLAT OPHT OINT 3.5 GM TUBE EACHEYE SCH (21:11)
[2022-06-27] MEDS: PROTEIN SUPPLEMENT (PROSTAT) 30 ML LIQUID GT SCH (21:12)
[2022-06-28] MEDS: POLYVINYL ALCOHOL OPHT DROPS 15 ML BOTTLE EACHEYE SCH ×6 (03:30→23:30)
[2022-06-28] MEDS: OSMOLITE 1.2 CAL 1,000 ML LIQUID GT PRN (04:15)
[2022-06-28] MEDS: FAMOTIDINE 20 MG TABLET GT SCH (05:41)
[2022-06-28] MEDS: [UNRECOGNIZED DRUG - OTHER] GT SCH (05:41)
[2022-06-28] MEDS: CARBIDOPA/LEVODOPA 25-100MG TABLET GT SCH ×3 (05:41→21:03)
[2022-06-28] MEDS: LEVOTHYROXINE SODIUM 125 MCG TABLET PO SCH (05:41)
[2022-06-28] MEDS: CALCIUM CARB/VITAMIN D 600-400 MG TABLET GT SCH ×2 (05:41→17:35)
[2022-06-28] MEDS: HYDROGEN PEROXIDE 3% 118 ML BOTTLE TP SCH ×2 (07:12→21:00)
[2022-06-28 08:06] VITALS: TEMP 97.5
[2022-06-28] MEDS: [UNRECOGNIZED DRUG - OTHER] GT SCH (08:44)
[2022-06-28] MEDS: [UNRECOGNIZED DRUG - OTHER] GT SCH ×2 (08:44→21:02)
[2022-06-28] MEDS: NYSTATIN CREAM 30 GM TUBE TOP SCH ×2 (08:45→21:03)
[2022-06-28] MEDS: COD LIVER OIL/ZINC OXIDE OINT 113 GM TUBE TP SCH ×2 (08:45→21:03)
[2022-06-28] MEDS: VITAMINS A AND D OINT 42 GM TUBE TP SCH (08:45)
[2022-06-28 10:30] VITALS: O2SAT 99
[2022-06-28 20:00] VITALS: TEMP 97.7
[2022-06-28 20:30] VITALS: O2SAT 99
[2022-06-28] MEDS: MINERAL OIL/PETROLAT OPHT OINT 3.5 GM TUBE EACHEYE SCH (20:58)
[2022-06-28] MEDS: PROTEIN SUPPLEMENT (PROSTAT) 30 ML LIQUID GT SCH (21:03)
[2022-06-29] MEDS: POLYVINYL ALCOHOL OPHT DROPS 15 ML BOTTLE EACHEYE SCH ×6 (03:30→23:30)
[2022-06-29] MEDS: OSMOLITE 1.2 CAL 1,000 ML LIQUID GT PRN (05:00)
[2022-06-29] MEDS: [UNRECOGNIZED DRUG - OTHER] GT SCH (05:36)
[2022-06-29] MEDS: CARBIDOPA/LEVODOPA 25-100MG TABLET GT SCH ×3 (05:36→21:23)
[2022-06-29] MEDS: LEVOTHYROXINE SODIUM 125 MCG TABLET PO SCH (05:36)
[2022-06-29] MEDS: FAMOTIDINE 20 MG TABLET GT SCH (05:36)
[2022-06-29] MEDS: CALCIUM CARB/VITAMIN D 600-400 MG TABLET GT SCH ×2 (05:36→17:21)
[2022-06-29 08:00] VITALS: TEMP 97.8
[2022-06-29] MEDS: HYDROGEN PEROXIDE 3% 118 ML BOTTLE TP SCH ×2 (08:09→21:08)
[2022-06-29] MEDS: [UNRECOGNIZED DRUG - OTHER] GT SCH ×2 (08:27→21:22)
[2022-06-29] MEDS: [UNRECOGNIZED DRUG - OTHER] GT SCH (08:27)
[2022-06-29] MEDS: VITAMINS A AND D OINT 42 GM TUBE TP SCH (08:28)
[2022-06-29] MEDS: NYSTATIN CREAM 30 GM TUBE TOP SCH ×2 (08:28→21:22)
[2022-06-29] MEDS: COD LIVER OIL/ZINC OXIDE OINT 113 GM TUBE TP SCH ×2 (08:28→21:23)
[2022-06-29 13:07] VITALS: O2SAT 98
[2022-06-29 20:00] VITALS: TEMP 98.5
[2022-06-29 20:45] VITALS: O2SAT 99
[2022-06-29] MEDS: MINERAL OIL/PETROLAT OPHT OINT 3.5 GM TUBE EACHEYE SCH (21:22)
[2022-06-29] MEDS: PROTEIN SUPPLEMENT (PROSTAT) 30 ML LIQUID GT SCH (21:22)
[2022-06-30] MEDS: POLYVINYL ALCOHOL OPHT DROPS 15 ML BOTTLE EACHEYE SCH ×5 (03:30→19:43)
[2022-06-30] MEDS: [UNRECOGNIZED DRUG - OTHER] GT SCH (06:17)
[2022-06-30] MEDS: LEVOTHYROXINE SODIUM 125 MCG TABLET PO SCH (06:17)
[2022-06-30] MEDS: CALCIUM CARB/VITAMIN D 600-400 MG TABLET GT SCH ×2 (06:17→17:38)
[2022-06-30] MEDS: CARBIDOPA/LEVODOPA 25-100MG TABLET GT SCH ×3 (06:17→21:20)
[2022-06-30] MEDS: FAMOTIDINE 20 MG TABLET GT SCH (06:17)
[2022-06-30 07:30] VITALS: TEMP 98.8
[2022-06-30] MEDS: [UNRECOGNIZED DRUG - OTHER] GT SCH (08:17)
[2022-06-30] MEDS: HYDROGEN PEROXIDE 3% 118 ML BOTTLE TP SCH ×2 (08:17→19:23)
[2022-06-30] MEDS: [UNRECOGNIZED DRUG - OTHER] GT SCH ×2 (08:17→20:33)
[2022-06-30] MEDS: NYSTATIN CREAM 30 GM TUBE TOP SCH ×2 (08:18→20:33)
[2022-06-30] MEDS: COD LIVER OIL/ZINC OXIDE OINT 113 GM TUBE TP SCH ×2 (08:19→20:34)
[2022-06-30] MEDS: VITAMINS A AND D OINT 42 GM TUBE TP SCH (08:20)
[2022-06-30] MEDS: LOPERAMIDE HCL 2 MG/15 ML GT PRN (09:15)
[2022-06-30] MEDS ORDERED: OLOPATADINE 0.1% OPHT DROP 5 ML BOTTLE ONE (12:00)
[2022-06-30] MEDS: OSMOLITE 1.2 CAL 1,000 ML LIQUID GT PRN (13:16)
[2022-06-30 16:20] VITALS: O2SAT 98
[2022-06-30 20:00] VITALS: BP 139/61; TEMP 97.4; O2SAT 97
[2022-06-30] MEDS: MINERAL OIL/PETROLAT OPHT OINT 3.5 GM TUBE EACHEYE SCH (20:31)
[2022-06-30] MEDS: PROTEIN SUPPLEMENT (PROSTAT) 30 ML LIQUID GT SCH (20:33)
[2022-07-01] MEDS: POLYVINYL ALCOHOL OPHT DROPS 15 ML BOTTLE EACHEYE SCH ×7 (00:19→23:30)
[2022-07-01] MEDS: LEVOTHYROXINE SODIUM 125 MCG TABLET PO SCH (05:22)
[2022-07-01] MEDS: CALCIUM CARB/VITAMIN D 600-400 MG TABLET GT SCH ×2 (05:22→17:22)
[2022-07-01] MEDS: [UNRECOGNIZED DRUG - OTHER] GT SCH (05:22)
[2022-07-01] MEDS: CARBIDOPA/LEVODOPA 25-100MG TABLET GT SCH ×3 (05:22→22:14)
[2022-07-01] MEDS: FAMOTIDINE 20 MG TABLET GT SCH (05:32)
[2022-07-01 07:22] VITALS: TEMP 97.7
[2022-07-01] MEDS: [UNRECOGNIZED DRUG - OTHER] GT SCH ×2 (08:03→20:15)
[2022-07-01] MEDS: [UNRECOGNIZED DRUG - OTHER] GT SCH (08:04)
[2022-07-01] MEDS: COD LIVER OIL/ZINC OXIDE OINT 113 GM TUBE TP SCH ×2 (08:05→20:17)
[2022-07-01] MEDS: VITAMINS A AND D OINT 42 GM TUBE TP SCH (08:05)
[2022-07-01] MEDS: NYSTATIN CREAM 30 GM TUBE TOP SCH ×2 (08:05→20:17)
[2022-07-01] MEDS: HYDROGEN PEROXIDE 3% 118 ML BOTTLE TP SCH ×2 (08:46→21:22)
[2022-07-01 13:21] VITALS: O2SAT 98
[2022-07-01] MEDS: OSMOLITE 1.2 CAL 1,000 ML LIQUID GT PRN (17:37)
[2022-07-01 20:00] VITALS: TEMP 98.2
[2022-07-01] MEDS: PROTEIN SUPPLEMENT (PROSTAT) 30 ML LIQUID GT SCH (20:15)
[2022-07-01] MEDS: MINERAL OIL/PETROLAT OPHT OINT 3.5 GM TUBE EACHEYE SCH (20:15)
[2022-07-01 21:22] VITALS: O2SAT 99
[2022-07-02] MEDS: POLYVINYL ALCOHOL OPHT DROPS 15 ML BOTTLE EACHEYE SCH ×5 (04:06→19:30)
[2022-07-02] MEDS: CALCIUM CARB/VITAMIN D 600-400 MG TABLET GT SCH ×2 (05:06→17:15)
[2022-07-02] MEDS: LEVOTHYROXINE SODIUM 125 MCG TABLET PO SCH (05:06)
[2022-07-02] MEDS: [UNRECOGNIZED DRUG - OTHER] GT SCH (05:06)
[2022-07-02] MEDS: CARBIDOPA/LEVODOPA 25-100MG TABLET GT SCH ×3 (05:06→22:39)
[2022-07-02] MEDS: FAMOTIDINE 20 MG TABLET GT SCH (05:40)
[2022-07-02 08:00] VITALS: TEMP 98.4
[2022-07-02 08:20] VITALS: O2SAT 98
[2022-07-02] MEDS: HYDROGEN PEROXIDE 3% 118 ML BOTTLE TP SCH ×2 (09:00→18:51)
[2022-07-02] MEDS: [UNRECOGNIZED DRUG - OTHER] GT SCH (09:28)
[2022-07-02] MEDS: [UNRECOGNIZED DRUG - OTHER] GT SCH ×2 (09:28→20:37)
[2022-07-02] MEDS: NYSTATIN CREAM 30 GM TUBE TOP SCH ×2 (09:29→20:38)
[2022-07-02] MEDS: VITAMINS A AND D OINT 42 GM TUBE TP SCH (09:29)
[2022-07-02] MEDS: COD LIVER OIL/ZINC OXIDE OINT 113 GM TUBE TP SCH ×2 (09:29→20:38)
[2022-07-02] MEDS: LOPERAMIDE HCL 2 MG/15 ML GT PRN (09:32)
[2022-07-02 20:17] VITALS: BP 127/54; TEMP 98.7; O2SAT 95
[2022-07-02 20:28] VITALS: O2SAT 99
[2022-07-02] MEDS: PROTEIN SUPPLEMENT (PROSTAT) 30 ML LIQUID GT SCH (20:37)
[2022-07-02] MEDS: MINERAL OIL/PETROLAT OPHT OINT 3.5 GM TUBE EACHEYE SCH (20:37)
[2022-07-03] MEDS: POLYVINYL ALCOHOL OPHT DROPS 15 ML BOTTLE EACHEYE SCH ×7 (00:08→23:30)
[2022-07-03] MEDS: CARBIDOPA/LEVODOPA 25-100MG TABLET GT SCH ×3 (05:33→21:03)
[2022-07-03] MEDS: LEVOTHYROXINE SODIUM 125 MCG TABLET PO SCH (05:33)
[2022-07-03] MEDS: ALENDRONATE SODIUM 70 MG GT SCH (05:33)
[2022-07-03] MEDS: [UNRECOGNIZED DRUG - OTHER] GT SCH (05:33)
[2022-07-03] MEDS: CALCIUM CARB/VITAMIN D 600-400 MG TABLET GT SCH ×2 (05:33→17:20)
[2022-07-03] MEDS: FAMOTIDINE 20 MG TABLET GT SCH (05:33)
[2022-07-03 07:49] VITALS: TEMP 98.3
[2022-07-03 08:03] VITALS: O2SAT 98
[2022-07-03] MEDS: [UNRECOGNIZED DRUG - OTHER] GT SCH (08:10)
[2022-07-03] MEDS: VITAMINS A AND D OINT 42 GM TUBE TP SCH (08:10)
[2022-07-03] MEDS: COD LIVER OIL/ZINC OXIDE OINT 113 GM TUBE TP SCH ×2 (08:10→21:03)
[2022-07-03] MEDS: NYSTATIN CREAM 30 GM TUBE TOP SCH ×2 (08:10→21:03)
[2022-07-03] MEDS: [UNRECOGNIZED DRUG - OTHER] GT SCH ×2 (08:10→21:03)
[2022-07-03] MEDS: HYDROGEN PEROXIDE 3% 118 ML BOTTLE TP SCH ×2 (09:02→19:05)
[2022-07-03 20:00] VITALS: TEMP 98.4
[2022-07-03] MEDS: MINERAL OIL/PETROLAT OPHT OINT 3.5 GM TUBE EACHEYE SCH (21:03)
[2022-07-03] MEDS: PROTEIN SUPPLEMENT (PROSTAT) 30 ML LIQUID GT SCH (21:03)
[2022-07-03 22:41] VITALS: O2SAT 99
[2022-07-04] MEDS: POLYVINYL ALCOHOL OPHT DROPS 15 ML BOTTLE EACHEYE SCH ×6 (03:38→23:30)
[2022-07-04] MEDS: OSMOLITE 1.2 CAL 1,000 ML LIQUID GT PRN (03:44)
[2022-07-04] MEDS: LEVOTHYROXINE SODIUM 125 MCG TABLET PO SCH (05:16)
[2022-07-04] MEDS: [UNRECOGNIZED DRUG - OTHER] GT SCH (05:16)
[2022-07-04] MEDS: CALCIUM CARB/VITAMIN D 600-400 MG TABLET GT SCH ×2 (05:16→17:24)
[2022-07-04] MEDS: CARBIDOPA/LEVODOPA 25-100MG TABLET GT SCH ×3 (05:16→21:58)
[2022-07-04] MEDS: FAMOTIDINE 20 MG TABLET GT SCH (05:31)
[2022-07-04 07:57] VITALS: TEMP 98.7
[2022-07-04] MEDS: HYDROGEN PEROXIDE 3% 118 ML BOTTLE TP SCH ×2 (09:00→19:08)
[2022-07-04] MEDS: [UNRECOGNIZED DRUG - OTHER] GT SCH ×2 (09:02→20:28)
[2022-07-04] MEDS: [UNRECOGNIZED DRUG - OTHER] GT SCH (09:03)
[2022-07-04] MEDS: COD LIVER OIL/ZINC OXIDE OINT 113 GM TUBE TP SCH ×2 (09:06→20:28)
[2022-07-04] MEDS: VITAMINS A AND D OINT 42 GM TUBE TP SCH (09:07)
[2022-07-04] MEDS: NYSTATIN CREAM 30 GM TUBE TOP SCH ×2 (09:08→20:28)
[2022-07-04 10:34] VITALS: O2SAT 98
[2022-07-04 14:50] VITALS: O2SAT 98
[2022-07-04 19:40] VITALS: O2SAT 99
[2022-07-04 20:00] VITALS: TEMP 97.9
[2022-07-04] MEDS: PROTEIN SUPPLEMENT (PROSTAT) 30 ML LIQUID GT SCH (20:28)
[2022-07-04] MEDS: MINERAL OIL/PETROLAT OPHT OINT 3.5 GM TUBE EACHEYE SCH (20:28)
[2022-07-05] MEDS: OSMOLITE 1.2 CAL 1,000 ML LIQUID GT PRN (04:15)
[2022-07-05] MEDS: POLYVINYL ALCOHOL OPHT DROPS 15 ML BOTTLE EACHEYE SCH ×6 (04:15→23:04)
[2022-07-05] MEDS: LEVOTHYROXINE SODIUM 125 MCG TABLET PO SCH (05:56)
[2022-07-05] MEDS: FAMOTIDINE 20 MG TABLET GT SCH (05:56)
[2022-07-05] MEDS: CALCIUM CARB/VITAMIN D 600-400 MG TABLET GT SCH ×2 (05:56→17:04)
[2022-07-05] MEDS: [UNRECOGNIZED DRUG - OTHER] GT SCH (05:56)
[2022-07-05] MEDS: CARBIDOPA/LEVODOPA 25-100MG TABLET GT SCH ×3 (05:56→22:06)
[2022-07-05] MEDS: HYDROGEN PEROXIDE 3% 118 ML BOTTLE TP SCH ×2 (07:20→19:17)
[2022-07-05 07:35] VITALS: TEMP 97.3
[2022-07-05 08:50] VITALS: O2SAT 98
[2022-07-05] MEDS: NYSTATIN CREAM 30 GM TUBE TOP SCH ×2 (09:00→20:46)
[2022-07-05] MEDS: [UNRECOGNIZED DRUG - OTHER] GT SCH ×2 (09:07→20:46)
[2022-07-05] MEDS: COD LIVER OIL/ZINC OXIDE OINT 113 GM TUBE TP SCH ×2 (09:07→20:46)
[2022-07-05] MEDS: VITAMINS A AND D OINT 42 GM TUBE TP SCH (09:07)
[2022-07-05] MEDS: [UNRECOGNIZED DRUG - OTHER] GT SCH (09:07)
[2022-07-05 19:50] VITALS: O2SAT 99
[2022-07-05 20:00] VITALS: TEMP 98
[2022-07-05] MEDS: PROTEIN SUPPLEMENT (PROSTAT) 30 ML LIQUID GT SCH (20:46)
[2022-07-05] MEDS: MINERAL OIL/PETROLAT OPHT OINT 3.5 GM TUBE EACHEYE SCH (20:46)
[2022-07-06] MEDS: POLYVINYL ALCOHOL OPHT DROPS 15 ML BOTTLE EACHEYE SCH ×5 (04:26→19:56)
[2022-07-06] MEDS: [UNRECOGNIZED DRUG - OTHER] GT SCH (05:12)
[2022-07-06] MEDS: CARBIDOPA/LEVODOPA 25-100MG TABLET GT SCH ×3 (05:12→22:01)
[2022-07-06] MEDS: CALCIUM CARB/VITAMIN D 600-400 MG TABLET GT SCH ×2 (05:12→17:28)
[2022-07-06] MEDS: LEVOTHYROXINE SODIUM 125 MCG TABLET PO SCH (05:13)
[2022-07-06] MEDS: FAMOTIDINE 20 MG TABLET GT SCH (05:42)
[2022-07-06 07:44] VITALS: TEMP 97.3
[2022-07-06] MEDS: [UNRECOGNIZED DRUG - OTHER] GT SCH (08:50)
[2022-07-06] MEDS: COD LIVER OIL/ZINC OXIDE OINT 113 GM TUBE TP SCH ×2 (08:50→20:39)
[2022-07-06] MEDS: [UNRECOGNIZED DRUG - OTHER] GT SCH ×2 (08:50→20:39)
[2022-07-06] MEDS: VITAMINS A AND D OINT 42 GM TUBE TP SCH (08:50)
[2022-07-06] MEDS: HYDROGEN PEROXIDE 3% 118 ML BOTTLE TP SCH ×2 (08:53→19:02)
[2022-07-06 10:30] VITALS: O2SAT 98
[2022-07-06] MEDS: diphenhydrAMINE 25 MG/10 ML UDC GT PRN (10:56)
[2022-07-06] MEDS: OSMOLITE 1.2 CAL 1,000 ML LIQUID GT PRN (14:08)
[2022-07-06 19:55] VITALS: O2SAT 99
[2022-07-06] MEDS: MINERAL OIL/PETROLAT OPHT OINT 3.5 GM TUBE EACHEYE SCH (20:39)
[2022-07-06] MEDS: PROTEIN SUPPLEMENT (PROSTAT) 30 ML LIQUID GT SCH (20:39)
[2022-07-06 22:09] VITALS: TEMP 98.4
[2022-07-07] MEDS: POLYVINYL ALCOHOL OPHT DROPS 15 ML BOTTLE EACHEYE SCH ×7 (00:18→23:30)
[2022-07-07] MEDS: CARBIDOPA/LEVODOPA 25-100MG TABLET GT SCH ×3 (05:26→22:16)
[2022-07-07] MEDS: [UNRECOGNIZED DRUG - OTHER] GT SCH (05:26)
[2022-07-07] MEDS: LEVOTHYROXINE SODIUM 125 MCG TABLET PO SCH (05:26)
[2022-07-07] MEDS: CALCIUM CARB/VITAMIN D 600-400 MG TABLET GT SCH ×2 (05:26→17:39)
[2022-07-07] MEDS: FAMOTIDINE 20 MG TABLET GT SCH (05:34)
[2022-07-07] MEDS: HYDROGEN PEROXIDE 3% 118 ML BOTTLE TP SCH ×2 (07:26→21:01)
[2022-07-07 08:00] VITALS: TEMP 97.7
[2022-07-07] MEDS: COD LIVER OIL/ZINC OXIDE OINT 113 GM TUBE TP SCH ×2 (08:51→20:20)
[2022-07-07] MEDS: VITAMINS A AND D OINT 42 GM TUBE TP SCH (08:51)
[2022-07-07] MEDS: [UNRECOGNIZED DRUG - OTHER] GT SCH (08:51)
[2022-07-07] MEDS: [UNRECOGNIZED DRUG - OTHER] GT SCH ×2 (08:51→20:20)
[2022-07-07 10:30] VITALS: O2SAT 97
[2022-07-07] MEDS: OSMOLITE 1.2 CAL 1,000 ML LIQUID GT PRN (15:45)
[2022-07-07 20:10] VITALS: O2SAT 97
[2022-07-07] MEDS: PROTEIN SUPPLEMENT (PROSTAT) 30 ML LIQUID GT SCH (20:20)
[2022-07-07] MEDS: MINERAL OIL/PETROLAT OPHT OINT 3.5 GM TUBE EACHEYE SCH (20:20)
[2022-07-07 22:00] VITALS: TEMP 98.4
[2022-07-08] MEDS: POLYVINYL ALCOHOL OPHT DROPS 15 ML BOTTLE EACHEYE SCH ×6 (03:30→23:30)
[2022-07-08] MEDS: CARBIDOPA/LEVODOPA 25-100MG TABLET GT SCH ×3 (05:20→21:48)
[2022-07-08] MEDS: LEVOTHYROXINE SODIUM 125 MCG TABLET PO SCH (05:20)
[2022-07-08] MEDS: [UNRECOGNIZED DRUG - OTHER] GT SCH (05:20)
[2022-07-08] MEDS: CALCIUM CARB/VITAMIN D 600-400 MG TABLET GT SCH ×2 (05:20→17:05)
[2022-07-08] MEDS: FAMOTIDINE 20 MG TABLET GT SCH (06:15)
[2022-07-08 07:31] VITALS: TEMP 97.8
[2022-07-08] MEDS: HYDROGEN PEROXIDE 3% 118 ML BOTTLE TP SCH ×2 (09:00→19:03)
[2022-07-08] MEDS: COD LIVER OIL/ZINC OXIDE OINT 113 GM TUBE TP SCH ×2 (09:53→20:56)
[2022-07-08] MEDS: [UNRECOGNIZED DRUG - OTHER] GT SCH ×2 (09:53→20:56)
[2022-07-08] MEDS: VITAMINS A AND D OINT 42 GM TUBE TP SCH (09:53)
[2022-07-08] MEDS: [UNRECOGNIZED DRUG - OTHER] GT SCH (09:53)
[2022-07-08 14:49] VITALS: O2SAT 98
[2022-07-08] MEDS: OSMOLITE 1.2 CAL 1,000 ML LIQUID GT PRN (16:48)
[2022-07-08] MEDS: PROTEIN SUPPLEMENT (PROSTAT) 30 ML LIQUID GT SCH (20:56)
[2022-07-08] MEDS: MINERAL OIL/PETROLAT OPHT OINT 3.5 GM TUBE EACHEYE SCH (20:56)
[2022-07-08 21:19] VITALS: O2SAT 97
[2022-07-08 21:32] VITALS: TEMP 97.7
[2022-07-09] MEDS: POLYVINYL ALCOHOL OPHT DROPS 15 ML BOTTLE EACHEYE SCH ×6 (03:54→23:30)
[2022-07-09] MEDS: CALCIUM CARB/VITAMIN D 600-400 MG TABLET GT SCH ×2 (05:59→17:13)
[2022-07-09] MEDS: LEVOTHYROXINE SODIUM 125 MCG TABLET PO SCH (05:59)
[2022-07-09] MEDS: CARBIDOPA/LEVODOPA 25-100MG TABLET GT SCH ×3 (05:59→21:01)
[2022-07-09] MEDS: [UNRECOGNIZED DRUG - OTHER] GT SCH (05:59)
[2022-07-09] MEDS: FAMOTIDINE 20 MG TABLET GT SCH (05:59)
[2022-07-09 07:23] VITALS: TEMP 98.3
[2022-07-09] MEDS: [UNRECOGNIZED DRUG - OTHER] GT SCH (08:22)
[2022-07-09] MEDS: [UNRECOGNIZED DRUG - OTHER] GT SCH ×2 (08:22→20:44)
[2022-07-09] MEDS: VITAMINS A AND D OINT 42 GM TUBE TP SCH (08:22)
[2022-07-09] MEDS: COD LIVER OIL/ZINC OXIDE OINT 113 GM TUBE TP SCH ×2 (08:22→20:45)
[2022-07-09] MEDS: HYDROGEN PEROXIDE 3% 118 ML BOTTLE TP SCH ×2 (09:00→21:00)
[2022-07-09 10:39] VITALS: O2SAT 98
[2022-07-09 13:57] VITALS: O2SAT 98
[2022-07-09 19:51] VITALS: TEMP 98.5
[2022-07-09] MEDS: MINERAL OIL/PETROLAT OPHT OINT 3.5 GM TUBE EACHEYE SCH (20:44)
[2022-07-09] MEDS: PROTEIN SUPPLEMENT (PROSTAT) 30 ML LIQUID GT SCH (20:44)
[2022-07-09 21:00] VITALS: O2SAT 97
[2022-07-09] MEDS: OSMOLITE 1.2 CAL 1,000 ML LIQUID GT PRN (21:23)
[2022-07-10] MEDS: POLYVINYL ALCOHOL OPHT DROPS 15 ML BOTTLE EACHEYE SCH ×6 (04:15→23:30)
[2022-07-10] MEDS: LEVOTHYROXINE SODIUM 125 MCG TABLET PO SCH (05:12)
[2022-07-10] MEDS: CALCIUM CARB/VITAMIN D 600-400 MG TABLET GT SCH ×2 (05:12→17:38)
[2022-07-10] MEDS: [UNRECOGNIZED DRUG - OTHER] GT SCH (05:12)
[2022-07-10] MEDS: CARBIDOPA/LEVODOPA 25-100MG TABLET GT SCH ×3 (05:12→21:37)
[2022-07-10] MEDS: ALENDRONATE SODIUM 70 MG GT SCH (05:12)
[2022-07-10] MEDS: FAMOTIDINE 20 MG TABLET GT SCH (05:44)
[2022-07-10 07:49] VITALS: TEMP 98.2
[2022-07-10] MEDS: HYDROGEN PEROXIDE 3% 118 ML BOTTLE TP SCH ×2 (08:09→19:27)
[2022-07-10] MEDS: [UNRECOGNIZED DRUG - OTHER] GT SCH ×2 (08:31→21:37)
[2022-07-10] MEDS: [UNRECOGNIZED DRUG - OTHER] GT SCH (08:31)
[2022-07-10] MEDS: COD LIVER OIL/ZINC OXIDE OINT 113 GM TUBE TP SCH ×2 (08:32→21:37)
[2022-07-10] MEDS: VITAMINS A AND D OINT 42 GM TUBE TP SCH (08:32)
[2022-07-10 13:23] VITALS: O2SAT 98
[2022-07-10 19:28] VITALS: O2SAT 99
[2022-07-10 20:00] VITALS: TEMP 97.8
[2022-07-10] MEDS: PROTEIN SUPPLEMENT (PROSTAT) 30 ML LIQUID GT SCH (21:37)
[2022-07-10] MEDS: MINERAL OIL/PETROLAT OPHT OINT 3.5 GM TUBE EACHEYE SCH (21:37)
[2022-07-11] MEDS: OSMOLITE 1.2 CAL 1,000 ML LIQUID GT PRN (03:25)
[2022-07-11] MEDS: POLYVINYL ALCOHOL OPHT DROPS 15 ML BOTTLE EACHEYE SCH ×6 (03:30→23:30)
[2022-07-11] MEDS: CARBIDOPA/LEVODOPA 25-100MG TABLET GT SCH ×3 (05:36→22:00)
[2022-07-11] MEDS: LEVOTHYROXINE SODIUM 125 MCG TABLET PO SCH (05:36)
[2022-07-11] MEDS: [UNRECOGNIZED DRUG - OTHER] GT SCH (05:36)
[2022-07-11] MEDS: CALCIUM CARB/VITAMIN D 600-400 MG TABLET GT SCH ×2 (05:37→17:57)
[2022-07-11] MEDS: FAMOTIDINE 20 MG TABLET GT SCH (05:37)
[2022-07-11 07:26] VITALS: O2SAT 98
[2022-07-11 08:00] VITALS: TEMP 98.9
[2022-07-11] MEDS: HYDROGEN PEROXIDE 3% 118 ML BOTTLE TP SCH ×2 (09:00→20:09)
[2022-07-11] MEDS: [UNRECOGNIZED DRUG - OTHER] GT SCH ×2 (09:14→21:30)
[2022-07-11] MEDS: VITAMINS A AND D OINT 42 GM TUBE TP SCH (09:15)
[2022-07-11] MEDS: COD LIVER OIL/ZINC OXIDE OINT 113 GM TUBE TP SCH ×2 (09:15→21:30)
[2022-07-11] MEDS: [UNRECOGNIZED DRUG - OTHER] GT SCH (09:15)
[2022-07-11 12:23] VITALS: O2SAT 98
[2022-07-11 14:02] VITALS: O2SAT 98
[2022-07-11 20:09] VITALS: O2SAT 99
[2022-07-11] MEDS: MINERAL OIL/PETROLAT OPHT OINT 3.5 GM TUBE EACHEYE SCH ×2 (21:00→21:30)
[2022-07-11] MEDS: PROTEIN SUPPLEMENT (PROSTAT) 30 ML LIQUID GT SCH (21:30)
[2022-07-11 21:41] VITALS: TEMP 98.1
[2022-07-12] MEDS: POLYVINYL ALCOHOL OPHT DROPS 15 ML BOTTLE EACHEYE SCH ×2 (03:30→07:30)
[2022-07-12] MEDS: [UNRECOGNIZED DRUG - OTHER] GT SCH (06:17)
[2022-07-12] MEDS: CALCIUM CARB/VITAMIN D 600-400 MG TABLET GT SCH ×2 (06:17→17:31)
[2022-07-12] MEDS: FAMOTIDINE 20 MG TABLET GT SCH (06:18)
[2022-07-12] MEDS: LEVOTHYROXINE SODIUM 125 MCG TABLET PO SCH (06:18)
[2022-07-12] MEDS: CARBIDOPA/LEVODOPA 25-100MG TABLET GT SCH ×3 (06:18→21:44)
[2022-07-12 07:57] VITALS: TEMP 97.5
[2022-07-12] MEDS: HYDROGEN PEROXIDE 3% 118 ML BOTTLE TP SCH ×2 (08:26→19:00)
[2022-07-12] MEDS: VITAMINS A AND D OINT 42 GM TUBE TP SCH (09:21)
[2022-07-12] MEDS: COD LIVER OIL/ZINC OXIDE OINT 113 GM TUBE TP SCH ×2 (09:21→21:43)
[2022-07-12] MEDS: [UNRECOGNIZED DRUG - OTHER] GT SCH ×2 (09:21→21:42)
[2022-07-12] MEDS: [UNRECOGNIZED DRUG - OTHER] GT SCH (09:21)
[2022-07-12 10:40] VITALS: O2SAT 98
[2022-07-12 20:00] VITALS: TEMP 97.8
[2022-07-12] MEDS: MINERAL OIL/PETROLAT OPHT OINT 3.5 GM TUBE EACHEYE SCH (21:42)
[2022-07-12] MEDS: PROTEIN SUPPLEMENT (PROSTAT) 30 ML LIQUID GT SCH (21:43)
[2022-07-13] MEDS: LEVOTHYROXINE SODIUM 125 MCG TABLET PO SCH (05:17)
[2022-07-13] MEDS: CARBIDOPA/LEVODOPA 25-100MG TABLET GT SCH ×3 (05:17→21:17)
[2022-07-13] MEDS: CALCIUM CARB/VITAMIN D 600-400 MG TABLET GT SCH ×2 (05:17→17:04)
[2022-07-13] MEDS: [UNRECOGNIZED DRUG - OTHER] GT SCH (05:17)
[2022-07-13] MEDS: FAMOTIDINE 20 MG TABLET GT SCH (06:16)
[2022-07-13] MEDS: POLYVINYL ALCOHOL OPHT DROPS 15 ML BOTTLE EACHEYE SCH ×5 (07:30→23:30)
[2022-07-13 07:47] VITALS: TEMP 98.3
[2022-07-13] MEDS: HYDROGEN PEROXIDE 3% 118 ML BOTTLE TP SCH ×2 (08:22→19:15)
[2022-07-13] MEDS: [UNRECOGNIZED DRUG - OTHER] GT SCH ×2 (09:45→21:17)
[2022-07-13] MEDS: [UNRECOGNIZED DRUG - OTHER] GT SCH (09:46)
[2022-07-13] MEDS: VITAMINS A AND D OINT 42 GM TUBE TP SCH (09:46)
[2022-07-13] MEDS: COD LIVER OIL/ZINC OXIDE OINT 113 GM TUBE TP SCH ×2 (09:46→21:16)
[2022-07-13] MEDS: diphenhydrAMINE 25 MG/10 ML UDC GT PRN (11:31)
[2022-07-13] MEDS: LOPERAMIDE HCL 2 MG/15 ML GT PRN (11:31)
[2022-07-13 13:39] VITALS: O2SAT 98
[2022-07-13 20:00] VITALS: TEMP 97.9
[2022-07-13 21:10] VITALS: O2SAT 98
[2022-07-13] MEDS: PROTEIN SUPPLEMENT (PROSTAT) 30 ML LIQUID GT SCH (21:16)
[2022-07-13] MEDS: MINERAL OIL/PETROLAT OPHT OINT 3.5 GM TUBE EACHEYE SCH (21:16)
[2022-07-14] VITALS (7 sets, daily range): TEMP 97.5–102; O2SAT 98
[2022-07-14] MEDS: POLYVINYL ALCOHOL OPHT DROPS 15 ML BOTTLE EACHEYE SCH ×5 (03:30→19:30)
[2022-07-14] MEDS: [UNRECOGNIZED DRUG - OTHER] GT SCH (05:06)
[2022-07-14] MEDS: CALCIUM CARB/VITAMIN D 600-400 MG TABLET GT SCH ×2 (05:06→17:36)
[2022-07-14] MEDS: LEVOTHYROXINE SODIUM 125 MCG TABLET PO SCH (05:07)
[2022-07-14] MEDS: CARBIDOPA/LEVODOPA 25-100MG TABLET GT SCH ×3 (05:07→21:54)
[2022-07-14] MEDS: FAMOTIDINE 20 MG TABLET GT SCH (05:07)
[2022-07-14] MEDS: ACETAMINOPHEN 650 MG/20 ML UDC- SA PATIENTS-FEVER ONLY GT PRN (08:20)
[2022-07-14] MEDS: COD LIVER OIL/ZINC OXIDE OINT 113 GM TUBE TP SCH ×2 (08:27→20:39)
[2022-07-14] MEDS: VITAMINS A AND D OINT 42 GM TUBE TP SCH (08:27)
[2022-07-14] MEDS: [UNRECOGNIZED DRUG - OTHER] GT SCH ×2 (08:27→20:39)
[2022-07-14] MEDS: [UNRECOGNIZED DRUG - OTHER] GT SCH (08:27)
[2022-07-14] MEDS: HYDROGEN PEROXIDE 3% 118 ML BOTTLE TP SCH ×2 (11:16→21:00)
[2022-07-14 11:44] LABS: BASOPHILS # (AUTO) 0.1 K/UL (0.0-0.2); BASOPHILS % (AUTO) 0.5 % (0.0-2.0); EOSINOPHILS # (AUTO) 0.2 K/uL (0.0-0.7); HEMOGLOBIN 12.3 g/dL (10.9-14.3); LYMPHOCYTES # (AUTO) 2.5 K/uL (0.8-4.8); LYMPHOCYTES % (AUTO) 25.6 % (20.5-51.5); MEAN CORPUSCULAR HEMOGLOBIN 28.8 uug (24.7-32.8); MEAN CORPUSCULAR HGB CONC 33 g/dL (32.3-35.6); MEAN CORPUSCULAR VOLUME 86.9 fL (75.5-95.3); MONOCYTES # (AUTO) 0.9 K/uL (0.1-1.30); MONOCYTES % (AUTO) 9.2 % (0.0-11.0); NEUTROPHILS # (AUTO) 6.1 K/uL (1.8-8.9); NEUTROPHILS % (AUTO) 62.7 % (38.5-71.5); PLATELET COUNT (AUTO) 225 K/uL (179-408); RED BLOOD CELL COUNT(AUTO) 4.26 MIL/uL (3.63-4.92); RED CELL DISTRIBUTION WIDTH 15.7 % (12.3-17.7); WHITE BLOOD COUNT (AUTO) 9.8 K/uL (3.8-11.8)
[2022-07-14 11:45] LABS: DIFFERENTIAL COMMENT 1
[2022-07-14 12:06] LABS: ALBUMIN 2.9 g/dL (3.4-5.0); ALKALINE PHOSPHATASE 60 U/L (50-136); ASPARTATE AMINOTRANSFERASE 9 U/L (15-37); BILIRUBIN,TOTAL 0.5 mg/dL (0.2-1.0); CALCIUM 8.6 mg/dL (8.5-10.1); CARBON DIOXIDE 29 mmol/L (21-32); CHLORIDE 105 mmol/L (98-107); CREATININE 1.1 mg/dL (0.6-1.3); GLUCOSE 132 mg/dL (74-106); MAGNESIUM 1.9 mg/dL (1.8-2.4); PHOSPHOROUS 3.3 mg/dL (2.5-4.9); POTASSIUM 4.3 mmol/L (3.5-5.1); SODIUM SERUM 141 mmol/L (136-145); TOTAL PROTEIN, SERUM 7.6 g/dL (6.4-8.2); UREA NITROGEN, BLOOD 26 mg/dL (7-18)
[2022-07-14 12:09] LABS: ALANINE AMINOTRANSFERASE < 6 U/L (14-59)
[2022-07-14 12:15] LABS: *CLARITY,URINE HAZY (CLEAR)
[2022-07-14 12:16] LABS: *COLOR,URINE YELLOW (YELLOW)
[2022-07-14 12:17] LABS: *PROTEIN,URINE 2+ (NEGATIVE); UGLUCOSE NEGATIVE (NEGATIVE)
[2022-07-14 12:18] LABS: *BILIRUBIN,URIN 1+ (NEGATIVE); *BLOOD, URINE 3+ (NEGATIVE)
[2022-07-14 12:19] LABS: *KETONES,URINE NEGATIVE (NEGATIVE); *UROBILINOGEN,URINE NORMAL (NORMAL); LEUKOCYTE ESTERASE ,URINE 2+ (NEGATIVE); NITRITE, URINE NEGATIVE (NEGATIVE)
[2022-07-14 12:29] LABS: BACTERIA,URINE MANY /HPF (NONE SEEN); RBC,URINE 50-80 /HPF (0-3); WBC,URINE 50-80 /HPF (0-3)
[2022-07-14 12:30] LABS: CALCIUM CARBONATE CRYSTALS,UR NONE SEEN /HPF (NONE SEEN); CALCIUM OXALATE CRYSTALS,UR NONE SEEN /HPF (NONE SEEN); CALCIUM PHOSPHATE CRYSTALS,UR NONE SEEN /HPF (NONE SEEN); COARSE GRANULAR CASTS,URINE NONE SEEN /LPF; CYSTINE CRYSTALS,URINE NONE SEEN /HPF (NONE SEEN); FATTY CASTS,URINE NONE SEEN /LPF (NONE SEEN); MUCUS,URINE NONE SEEN /LPF (0-FEW); OTHER CASTS, URINE None Seen /LPF (None Seen); RED BLOOD CELL CASTS,URINE NONE SEEN /LPF (NONE SEEN); SPERM,URINE NONE SEEN /HPF (NONE SEEN); SQUAMOUS EPITHELIAL CELL,UR NONE SEEN /HPF (NONE SEEN); TRICHOMONAS,URINE NONE SEEN /HPF (NONE SEEN); TRIPLE PHOSPHATE CRYSTAL,UR NONE SEEN /HPF (NONE SEEN); TYROSINE CRYSTAL,URINE NONE SEEN /HPF (NONE SEEN); URIC ACID CRYSTALS,URINE NONE SEEN /HPF (NONE SEEN); URINE AMORPHOUS PHOSPHATES NONE SEEN /HPF; URINE AMORPHOUS URATE NONE SEEN /HPF; WAXY CASTS,URINE NONE SEEN /LPF (NONE SEEN); YEAST,URINE NONE SEEN /HPF (NONE SEEN)
[2022-07-14] MEDS: PROTEIN SUPPLEMENT (PROSTAT) 30 ML LIQUID GT SCH (20:39)
[2022-07-14] MEDS: MINERAL OIL/PETROLAT OPHT OINT 3.5 GM TUBE EACHEYE SCH (20:39)
[2022-07-14] MEDS: OSMOLITE 1.2 CAL 1,000 ML LIQUID GT PRN (21:02)
[2022-07-15] MEDS: POLYVINYL ALCOHOL OPHT DROPS 15 ML BOTTLE EACHEYE SCH ×7 (00:21→23:30)
[2022-07-15] MEDS: CARBIDOPA/LEVODOPA 25-100MG TABLET GT SCH ×3 (05:27→21:04)
[2022-07-15] MEDS: [UNRECOGNIZED DRUG - OTHER] GT SCH (05:27)
[2022-07-15] MEDS: LEVOTHYROXINE SODIUM 125 MCG TABLET PO SCH (05:27)
[2022-07-15] MEDS: CALCIUM CARB/VITAMIN D 600-400 MG TABLET GT SCH ×2 (05:27→18:31)
[2022-07-15] MEDS: FAMOTIDINE 20 MG TABLET GT SCH (05:30)
[2022-07-15] MEDS: HYDROGEN PEROXIDE 3% 118 ML BOTTLE TP SCH ×2 (07:24→21:13)
[2022-07-15 07:27] VITALS: TEMP 98.3
[2022-07-15 07:38] LABS: BASOPHILS # (AUTO) 0.1 K/UL (0.0-0.2); BASOPHILS % (AUTO) 0.8 % (0.0-2.0); EOSINOPHILS # (AUTO) 0.2 K/uL (0.0-0.7); EOSINOPHILS % (AUTO) 3.1 % (0.0-7.0); HEMATOCRIT 35.6 % (31.2-41.9); HEMOGLOBIN 11.8 g/dL (10.9-14.3); LYMPHOCYTES # (AUTO) 1.9 K/uL (0.8-4.8); LYMPHOCYTES % (AUTO) 24.9 % (20.5-51.5); MEAN CORPUSCULAR HGB CONC 33 g/dL (32.3-35.6); MEAN CORPUSCULAR VOLUME 87.3 fL (75.5-95.3); MONOCYTES # (AUTO) 0.6 K/uL (0.1-1.30); MONOCYTES % (AUTO) 7.2 % (0.0-11.0); NEUTROPHILS # (AUTO) 4.9 K/uL (1.8-8.9); PLATELET COUNT (AUTO) 241 K/uL (179-408); RED BLOOD CELL COUNT(AUTO) 4.08 MIL/uL (3.63-4.92); RED CELL DISTRIBUTION WIDTH 15.7 % (12.3-17.7); WHITE BLOOD COUNT (AUTO) 7.7 K/uL (3.8-11.8)
[2022-07-15 07:55] LABS: DIFFERENTIAL COMMENT 1
[2022-07-15 07:58] LABS: ALKALINE PHOSPHATASE 58 U/L (50-136); ASPARTATE AMINOTRANSFERASE 13 U/L (15-37); BILIRUBIN,TOTAL 0.6 mg/dL (0.2-1.0); CALCIUM 8.8 mg/dL (8.5-10.1); CARBON DIOXIDE 31 mmol/L (21-32); CHLORIDE 106 mmol/L (98-107); CREATININE 0.9 mg/dL (0.6-1.3); GLUCOSE 114 mg/dL (74-106); PHOSPHOROUS 3.6 mg/dL (2.5-4.9); POTASSIUM 4.6 mmol/L (3.5-5.1); SODIUM SERUM 143 mmol/L (136-145); TOTAL PROTEIN, SERUM 7.8 g/dL (6.4-8.2); UREA NITROGEN, BLOOD 25 mg/dL (7-18)
[2022-07-15 08:13] LABS: ALANINE AMINOTRANSFERASE < 6 U/L (14-59)
[2022-07-15] MEDS: [UNRECOGNIZED DRUG - OTHER] GT SCH ×2 (08:47→21:03)
[2022-07-15] MEDS: [UNRECOGNIZED DRUG - OTHER] GT SCH (08:47)
[2022-07-15] MEDS: VITAMINS A AND D OINT 42 GM TUBE TP SCH (08:48)
[2022-07-15] MEDS: COD LIVER OIL/ZINC OXIDE OINT 113 GM TUBE TP SCH ×2 (08:48→21:03)
[2022-07-15 08:59] LABS: THYROID STIMULATING HORMONE 1.057 mIU/mL (0.358-3.740)
[2022-07-15] MEDS ORDERED: MEROPENEM 1 G in IV NORMAL SALINE 100 ML IV SCH (09:00)
[2022-07-15 10:30] VITALS: O2SAT 98
[2022-07-15 20:00] VITALS: TEMP 98.2
[2022-07-15] MEDS: MEROPENEM 1 G in IV NORMAL SALINE 100 ML IV SCH (20:53)
[2022-07-15] MEDS: PROTEIN SUPPLEMENT (PROSTAT) 30 ML LIQUID GT SCH (21:03)
[2022-07-15] MEDS: MINERAL OIL/PETROLAT OPHT OINT 3.5 GM TUBE EACHEYE SCH (21:03)
[2022-07-15 21:12] VITALS: O2SAT 99
[2022-07-16] MEDS: POLYVINYL ALCOHOL OPHT DROPS 15 ML BOTTLE EACHEYE SCH ×6 (03:30→23:30)
[2022-07-16] MEDS: [UNRECOGNIZED DRUG - OTHER] GT SCH (05:13)
[2022-07-16] MEDS: CARBIDOPA/LEVODOPA 25-100MG TABLET GT SCH ×3 (05:13→21:17)
[2022-07-16] MEDS: OSMOLITE 1.2 CAL 1,000 ML LIQUID GT PRN (05:13)
[2022-07-16] MEDS: CALCIUM CARB/VITAMIN D 600-400 MG TABLET GT SCH ×2 (05:13→18:02)
[2022-07-16] MEDS: LEVOTHYROXINE SODIUM 125 MCG TABLET PO SCH (05:13)
[2022-07-16] MEDS: FAMOTIDINE 20 MG TABLET GT SCH (05:36)
[2022-07-16 07:26] VITALS: TEMP 98.5
[2022-07-16 07:57] VITALS: O2SAT 98
[2022-07-16] MEDS: HYDROGEN PEROXIDE 3% 118 ML BOTTLE TP SCH ×2 (07:57→19:10)
[2022-07-16] MEDS: COD LIVER OIL/ZINC OXIDE OINT 113 GM TUBE TP SCH ×2 (09:00→20:22)
[2022-07-16] MEDS: VITAMINS A AND D OINT 42 GM TUBE TP SCH (09:00)
[2022-07-16] MEDS: [UNRECOGNIZED DRUG - OTHER] GT SCH ×2 (09:00→20:22)
[2022-07-16] MEDS: MEROPENEM 1 G in IV NORMAL SALINE 100 ML IV SCH ×2 (09:00→21:11)
[2022-07-16] MEDS: [UNRECOGNIZED DRUG - OTHER] GT SCH (09:00)
[2022-07-16 19:10] VITALS: O2SAT 99
[2022-07-16 20:00] VITALS: TEMP 99.2
[2022-07-16] MEDS: MINERAL OIL/PETROLAT OPHT OINT 3.5 GM TUBE EACHEYE SCH (20:22)
[2022-07-16] MEDS: PROTEIN SUPPLEMENT (PROSTAT) 30 ML LIQUID GT SCH (20:22)
[2022-07-16] MEDS: ACETAMINOPHEN 650 MG/20 ML UDC- SA PATIENTS-PAIN ONLY GT PRN (20:23)
[2022-07-17] MEDS: OSMOLITE 1.2 CAL 1,000 ML LIQUID GT PRN (01:40)
[2022-07-17] MEDS: POLYVINYL ALCOHOL OPHT DROPS 15 ML BOTTLE EACHEYE SCH ×6 (03:54→23:30)
[2022-07-17] MEDS: CALCIUM CARB/VITAMIN D 600-400 MG TABLET GT SCH ×2 (05:46→16:57)
[2022-07-17] MEDS: [UNRECOGNIZED DRUG - OTHER] GT SCH (05:46)
[2022-07-17] MEDS: CARBIDOPA/LEVODOPA 25-100MG TABLET GT SCH ×3 (05:46→21:26)
[2022-07-17] MEDS: LEVOTHYROXINE SODIUM 125 MCG TABLET PO SCH (05:46)
[2022-07-17] MEDS: ALENDRONATE SODIUM 70 MG GT SCH (05:46)
[2022-07-17] MEDS: FAMOTIDINE 20 MG TABLET GT SCH (05:46)
[2022-07-17 07:38] VITALS: TEMP 97.3
[2022-07-17 07:59] VITALS: O2SAT 98
[2022-07-17] MEDS: [UNRECOGNIZED DRUG - OTHER] GT SCH ×2 (09:00→21:20)
[2022-07-17] MEDS: COD LIVER OIL/ZINC OXIDE OINT 113 GM TUBE TP SCH ×2 (09:00→21:26)
[2022-07-17] MEDS: [UNRECOGNIZED DRUG - OTHER] GT SCH (09:00)
[2022-07-17] MEDS: VITAMINS A AND D OINT 42 GM TUBE TP SCH (09:00)
[2022-07-17] MEDS: MEROPENEM 1 G in IV NORMAL SALINE 100 ML IV SCH (09:00)
[2022-07-17] MEDS: HYDROGEN PEROXIDE 3% 118 ML BOTTLE TP SCH ×2 (09:27→19:15)
[2022-07-17 19:15] VITALS: O2SAT 99
[2022-07-17 20:00] VITALS: TEMP 97.6
[2022-07-17] MEDS: PROTEIN SUPPLEMENT (PROSTAT) 30 ML LIQUID GT SCH (21:20)
[2022-07-17] MEDS: MINERAL OIL/PETROLAT OPHT OINT 3.5 GM TUBE EACHEYE SCH (21:20)
[2022-07-17] MEDS: CEFTRIAXONE 1 G in IV DEXTROSE 5% 50 ML IV SCH (22:00)
[2022-07-18] MEDS: OSMOLITE 1.2 CAL 1,000 ML LIQUID GT PRN (01:13)
[2022-07-18] MEDS: diphenhydrAMINE 25 MG/10 ML UDC GT PRN ×2 (01:15→17:47)
[2022-07-18] MEDS: POLYVINYL ALCOHOL OPHT DROPS 15 ML BOTTLE EACHEYE SCH ×5 (04:17→20:19)
[2022-07-18] MEDS: CARBIDOPA/LEVODOPA 25-100MG TABLET GT SCH ×3 (05:52→22:16)
[2022-07-18] MEDS: LEVOTHYROXINE SODIUM 125 MCG TABLET PO SCH (05:52)
[2022-07-18] MEDS: [UNRECOGNIZED DRUG - OTHER] GT SCH (05:52)
[2022-07-18] MEDS: CALCIUM CARB/VITAMIN D 600-400 MG TABLET GT SCH ×2 (05:52→17:38)
[2022-07-18] MEDS: FAMOTIDINE 20 MG TABLET GT SCH (05:52)
[2022-07-18 07:21] VITALS: O2SAT 98
[2022-07-18 07:48] VITALS: TEMP 97.3
[2022-07-18] MEDS: [UNRECOGNIZED DRUG - OTHER] GT SCH ×2 (08:45→20:19)
[2022-07-18] MEDS: [UNRECOGNIZED DRUG - OTHER] GT SCH (08:45)
[2022-07-18] MEDS: COD LIVER OIL/ZINC OXIDE OINT 113 GM TUBE TP SCH ×2 (08:45→20:20)
[2022-07-18] MEDS: VITAMINS A AND D OINT 42 GM TUBE TP SCH (08:46)
[2022-07-18] MEDS: HYDROGEN PEROXIDE 3% 118 ML BOTTLE TP SCH ×2 (09:00→19:13)
[2022-07-18 15:23] VITALS: O2SAT 98
[2022-07-18 19:45] VITALS: O2SAT 99
[2022-07-18 20:00] VITALS: TEMP 98.2
[2022-07-18] MEDS: PROTEIN SUPPLEMENT (PROSTAT) 30 ML LIQUID GT SCH (20:19)
[2022-07-18] MEDS: MINERAL OIL/PETROLAT OPHT OINT 3.5 GM TUBE EACHEYE SCH (20:19)
[2022-07-18] MEDS: CEFTRIAXONE 1 G in IV DEXTROSE 5% 50 ML IV SCH (21:13)
[2022-07-19] MEDS: POLYVINYL ALCOHOL OPHT DROPS 15 ML BOTTLE EACHEYE SCH ×6 (00:23→19:30)
[2022-07-19] MEDS: OSMOLITE 1.2 CAL 1,000 ML LIQUID GT PRN (01:42)
[2022-07-19] MEDS: CARBIDOPA/LEVODOPA 25-100MG TABLET GT SCH ×3 (06:12→21:39)
[2022-07-19] MEDS: FAMOTIDINE 20 MG TABLET GT SCH (06:12)
[2022-07-19] MEDS: LEVOTHYROXINE SODIUM 125 MCG TABLET PO SCH (06:12)
[2022-07-19] MEDS: [UNRECOGNIZED DRUG - OTHER] GT SCH (06:12)
[2022-07-19] MEDS: CALCIUM CARB/VITAMIN D 600-400 MG TABLET GT SCH ×2 (06:12→17:41)
[2022-07-19 07:42] VITALS: TEMP 98.3
[2022-07-19] MEDS: [UNRECOGNIZED DRUG - OTHER] GT SCH ×2 (08:40→21:38)
[2022-07-19] MEDS: COD LIVER OIL/ZINC OXIDE OINT 113 GM TUBE TP SCH ×2 (08:40→21:39)
[2022-07-19] MEDS: [UNRECOGNIZED DRUG - OTHER] GT SCH (08:40)
[2022-07-19] MEDS: VITAMINS A AND D OINT 42 GM TUBE TP SCH (08:41)
[2022-07-19] MEDS: HYDROGEN PEROXIDE 3% 118 ML BOTTLE TP SCH ×2 (09:00→18:22)
[2022-07-19 10:30] VITALS: O2SAT 98
[2022-07-19 18:23] VITALS: O2SAT 99
[2022-07-19 21:00] VITALS: TEMP 97.4
[2022-07-19] MEDS: MINERAL OIL/PETROLAT OPHT OINT 3.5 GM TUBE EACHEYE SCH (21:00)
[2022-07-19] MEDS: PROTEIN SUPPLEMENT (PROSTAT) 30 ML LIQUID GT SCH (21:38)
[2022-07-19] MEDS: CEFTRIAXONE 1 G in IV DEXTROSE 5% 50 ML IV SCH (22:00)
[2022-07-20] MEDS: POLYVINYL ALCOHOL OPHT DROPS 15 ML BOTTLE EACHEYE SCH ×7 (00:13→22:54)
[2022-07-20] MEDS: CALCIUM CARB/VITAMIN D 600-400 MG TABLET GT SCH ×2 (05:26→18:03)
[2022-07-20] MEDS: [UNRECOGNIZED DRUG - OTHER] GT SCH (05:26)
[2022-07-20] MEDS: LEVOTHYROXINE SODIUM 125 MCG TABLET PO SCH (05:26)
[2022-07-20] MEDS: CARBIDOPA/LEVODOPA 25-100MG TABLET GT SCH ×3 (05:26→21:25)
[2022-07-20] MEDS: FAMOTIDINE 20 MG TABLET GT SCH (06:50)
[2022-07-20 07:39] VITALS: TEMP 98.7
[2022-07-20] MEDS: COD LIVER OIL/ZINC OXIDE OINT 113 GM TUBE TP SCH ×2 (08:00→21:25)
[2022-07-20] MEDS: [UNRECOGNIZED DRUG - OTHER] GT SCH (08:00)
[2022-07-20] MEDS: VITAMINS A AND D OINT 42 GM TUBE TP SCH (08:00)
[2022-07-20] MEDS: HYDROGEN PEROXIDE 3% 118 ML BOTTLE TP SCH ×2 (08:46→21:25)
[2022-07-20] MEDS: [UNRECOGNIZED DRUG - OTHER] GT SCH ×2 (09:08→21:25)
[2022-07-20 14:17] VITALS: O2SAT 98
[2022-07-20 20:30] VITALS: O2SAT 99
[2022-07-20] MEDS: MINERAL OIL/PETROLAT OPHT OINT 3.5 GM TUBE EACHEYE SCH (21:00)
[2022-07-20] MEDS: PROTEIN SUPPLEMENT (PROSTAT) 30 ML LIQUID GT SCH (21:25)
[2022-07-20] MEDS: CEFTRIAXONE 1 G in IV DEXTROSE 5% 50 ML IV SCH (22:00)
[2022-07-20 22:47] VITALS: TEMP 98.4
[2022-07-21] MEDS: POLYVINYL ALCOHOL OPHT DROPS 15 ML BOTTLE EACHEYE SCH ×6 (04:12→23:48)
[2022-07-21] MEDS: LEVOTHYROXINE SODIUM 125 MCG TABLET PO SCH (06:49)
[2022-07-21] MEDS: CALCIUM CARB/VITAMIN D 600-400 MG TABLET GT SCH ×2 (06:49→17:05)
[2022-07-21] MEDS: FAMOTIDINE 20 MG TABLET GT SCH (06:49)
[2022-07-21] MEDS: CARBIDOPA/LEVODOPA 25-100MG TABLET GT SCH ×3 (06:49→21:03)
[2022-07-21] MEDS: [UNRECOGNIZED DRUG - OTHER] GT SCH (06:49)
[2022-07-21 08:00] VITALS: TEMP 97.6
[2022-07-21] MEDS: [UNRECOGNIZED DRUG - OTHER] GT SCH ×2 (08:29→21:03)
[2022-07-21] MEDS: [UNRECOGNIZED DRUG - OTHER] GT SCH (08:30)
[2022-07-21] MEDS: COD LIVER OIL/ZINC OXIDE OINT 113 GM TUBE TP SCH ×2 (08:30→21:03)
[2022-07-21] MEDS: VITAMINS A AND D OINT 42 GM TUBE TP SCH (08:30)
[2022-07-21 10:00] VITALS: O2SAT 98
[2022-07-21] MEDS: HYDROGEN PEROXIDE 3% 118 ML BOTTLE TP SCH ×2 (10:02→20:18)
[2022-07-21 20:05] VITALS: O2SAT 99
[2022-07-21 20:35] VITALS: TEMP 100
[2022-07-21] MEDS: MINERAL OIL/PETROLAT OPHT OINT 3.5 GM TUBE EACHEYE SCH (21:03)
[2022-07-21] MEDS: PROTEIN SUPPLEMENT (PROSTAT) 30 ML LIQUID GT SCH (21:03)
[2022-07-21] MEDS: CEFTRIAXONE 1 G in IV DEXTROSE 5% 50 ML IV SCH (21:59)
[2022-07-22] MEDS: OSMOLITE 1.2 CAL 1,000 ML LIQUID GT PRN (01:47)
[2022-07-22] MEDS: POLYVINYL ALCOHOL OPHT DROPS 15 ML BOTTLE EACHEYE SCH ×6 (03:30→23:30)
[2022-07-22] MEDS: CALCIUM CARB/VITAMIN D 600-400 MG TABLET GT SCH ×2 (05:47→17:37)
[2022-07-22] MEDS: CARBIDOPA/LEVODOPA 25-100MG TABLET GT SCH ×3 (05:47→21:09)
[2022-07-22] MEDS: LEVOTHYROXINE SODIUM 125 MCG TABLET PO SCH (05:47)
[2022-07-22] MEDS: [UNRECOGNIZED DRUG - OTHER] GT SCH (05:47)
[2022-07-22] MEDS: FAMOTIDINE 20 MG TABLET GT SCH (05:48)
[2022-07-22 07:03] LABS: BASOPHILS # (AUTO) 0.1 K/UL (0.0-0.2); BASOPHILS % (AUTO) 1.1 % (0.0-2.0); EOSINOPHILS # (AUTO) 0.3 K/uL (0.0-0.7); EOSINOPHILS % (AUTO) 3.5 % (0.0-7.0); HEMATOCRIT 33.8 % (31.2-41.9); HEMOGLOBIN 11.3 g/dL (10.9-14.3); LYMPHOCYTES # (AUTO) 2.4 K/uL (0.8-4.8); LYMPHOCYTES % (AUTO) 27.8 % (20.5-51.5); MEAN CORPUSCULAR HEMOGLOBIN 29.3 uug (24.7-32.8); MEAN CORPUSCULAR HGB CONC 34 g/dL (32.3-35.6); MEAN CORPUSCULAR VOLUME 87.5 fL (75.5-95.3); MONOCYTES # (AUTO) 0.9 K/uL (0.1-1.30); MONOCYTES % (AUTO) 10.3 % (0.0-11.0); NEUTROPHILS # (AUTO) 4.8 K/uL (1.8-8.9); NEUTROPHILS % (AUTO) 57.3 % (38.5-71.5); PLATELET COUNT (AUTO) 262 K/uL (179-408); RED BLOOD CELL COUNT(AUTO) 3.86 MIL/uL (3.63-4.92); RED CELL DISTRIBUTION WIDTH 15.8 % (12.3-17.7); WHITE BLOOD COUNT (AUTO) 8.5 K/uL (3.8-11.8)
[2022-07-22 07:31] VITALS: TEMP 98
[2022-07-22 07:31] LABS: ALANINE AMINOTRANSFERASE < 6 U/L (14-59); ALBUMIN 2.8 g/dL (3.4-5.0); ALKALINE PHOSPHATASE 78 U/L (50-136); ASPARTATE AMINOTRANSFERASE 21 U/L (15-37); BILIRUBIN,TOTAL 0.4 mg/dL (0.2-1.0); C-REACTIVE PROTEIN 1.2 mg/dL (0.0-0.9); CALCIUM 8.7 mg/dL (8.5-10.1); CARBON DIOXIDE 31 mmol/L (21-32); CHLORIDE 105 mmol/L (98-107); CREATININE 0.8 mg/dL (0.6-1.3); GLUCOSE 98 mg/dL (74-106); POTASSIUM 4.5 mmol/L (3.5-5.1); SODIUM SERUM 140 mmol/L (136-145); TOTAL PROTEIN, SERUM 7.5 g/dL (6.4-8.2); UREA NITROGEN, BLOOD 24 mg/dL (7-18)
[2022-07-22 07:53] LABS: DIFFERENTIAL COMMENT 1
[2022-07-22] MEDS: HYDROGEN PEROXIDE 3% 118 ML BOTTLE TP SCH ×2 (08:33→19:10)
[2022-07-22] MEDS: [UNRECOGNIZED DRUG - OTHER] GT SCH ×2 (09:00→21:07)
[2022-07-22] MEDS: COD LIVER OIL/ZINC OXIDE OINT 113 GM TUBE TP SCH ×2 (09:04→21:09)
[2022-07-22] MEDS: VITAMINS A AND D OINT 42 GM TUBE TP SCH (09:04)
[2022-07-22] MEDS: [UNRECOGNIZED DRUG - OTHER] GT SCH (09:04)
[2022-07-22 17:59] VITALS: O2SAT 98
[2022-07-22 19:40] VITALS: O2SAT 99
[2022-07-22 19:52] VITALS: TEMP 97.9
[2022-07-22] MEDS: PROTEIN SUPPLEMENT (PROSTAT) 30 ML LIQUID GT SCH (21:07)
[2022-07-22] MEDS: MINERAL OIL/PETROLAT OPHT OINT 3.5 GM TUBE EACHEYE SCH (21:07)
[2022-07-23] MEDS: OSMOLITE 1.2 CAL 1,000 ML LIQUID GT PRN (01:00)
[2022-07-23] MEDS: POLYVINYL ALCOHOL OPHT DROPS 15 ML BOTTLE EACHEYE SCH ×6 (03:30→23:27)
[2022-07-23] MEDS: [UNRECOGNIZED DRUG - OTHER] GT SCH (05:23)
[2022-07-23] MEDS: CARBIDOPA/LEVODOPA 25-100MG TABLET GT SCH ×3 (05:23→21:09)
[2022-07-23] MEDS: LEVOTHYROXINE SODIUM 125 MCG TABLET PO SCH (05:23)
[2022-07-23] MEDS: CALCIUM CARB/VITAMIN D 600-400 MG TABLET GT SCH ×2 (05:23→17:51)
[2022-07-23] MEDS: FAMOTIDINE 20 MG TABLET GT SCH (05:48)
[2022-07-23 07:25] VITALS: TEMP 98.4
[2022-07-23] MEDS: [UNRECOGNIZED DRUG - OTHER] GT SCH ×2 (09:19→21:09)
[2022-07-23] MEDS: [UNRECOGNIZED DRUG - OTHER] GT SCH (09:19)
[2022-07-23] MEDS: COD LIVER OIL/ZINC OXIDE OINT 113 GM TUBE TP SCH ×2 (09:19→21:09)
[2022-07-23] MEDS: VITAMINS A AND D OINT 42 GM TUBE TP SCH (09:19)
[2022-07-23] MEDS: LOPERAMIDE HCL 2 MG/15 ML GT PRN (09:20)
[2022-07-23 10:00] VITALS: O2SAT 98
[2022-07-23] MEDS: HYDROGEN PEROXIDE 3% 118 ML BOTTLE TP SCH ×2 (10:00→19:08)
[2022-07-23 20:00] VITALS: TEMP 98.1
[2022-07-23] MEDS: MINERAL OIL/PETROLAT OPHT OINT 3.5 GM TUBE EACHEYE SCH (21:09)
[2022-07-23] MEDS: PROTEIN SUPPLEMENT (PROSTAT) 30 ML LIQUID GT SCH (21:09)
[2022-07-23 22:47] VITALS: O2SAT 99
[2022-07-24] MEDS: POLYVINYL ALCOHOL OPHT DROPS 15 ML BOTTLE EACHEYE SCH ×6 (03:30→23:30)
[2022-07-24] MEDS: LEVOTHYROXINE SODIUM 125 MCG TABLET PO SCH (06:12)
[2022-07-24] MEDS: FAMOTIDINE 20 MG TABLET GT SCH (06:12)
[2022-07-24] MEDS: ALENDRONATE SODIUM 70 MG GT SCH (06:12)
[2022-07-24] MEDS: [UNRECOGNIZED DRUG - OTHER] GT SCH (06:12)
[2022-07-24] MEDS: CALCIUM CARB/VITAMIN D 600-400 MG TABLET GT SCH ×2 (06:12→17:58)
[2022-07-24] MEDS: CARBIDOPA/LEVODOPA 25-100MG TABLET GT SCH ×3 (06:12→21:20)
[2022-07-24] MEDS: HYDROGEN PEROXIDE 3% 118 ML BOTTLE TP SCH ×2 (07:13→19:15)
[2022-07-24 07:22] VITALS: TEMP 97.6
[2022-07-24] MEDS: [UNRECOGNIZED DRUG - OTHER] GT SCH (09:00)
[2022-07-24] MEDS: [UNRECOGNIZED DRUG - OTHER] GT SCH ×2 (09:52→21:20)
[2022-07-24] MEDS: COD LIVER OIL/ZINC OXIDE OINT 113 GM TUBE TP SCH ×2 (09:57→21:20)
[2022-07-24] MEDS: VITAMINS A AND D OINT 42 GM TUBE TP SCH (09:57)
[2022-07-24 10:55] VITALS: O2SAT 97
[2022-07-24] MEDS: LOPERAMIDE HCL 2 MG/15 ML GT PRN (11:10)
[2022-07-24 19:15] VITALS: O2SAT 99
[2022-07-24 20:00] VITALS: TEMP 98
[2022-07-24] MEDS: MINERAL OIL/PETROLAT OPHT OINT 3.5 GM TUBE EACHEYE SCH (21:00)
[2022-07-24] MEDS: PROTEIN SUPPLEMENT (PROSTAT) 30 ML LIQUID GT SCH (21:20)
[2022-07-25] MEDS: POLYVINYL ALCOHOL OPHT DROPS 15 ML BOTTLE EACHEYE SCH ×6 (03:30→23:30)
[2022-07-25] MEDS: CARBIDOPA/LEVODOPA 25-100MG TABLET GT SCH ×3 (05:38→22:16)
[2022-07-25] MEDS: FAMOTIDINE 20 MG TABLET GT SCH (05:38)
[2022-07-25] MEDS: [UNRECOGNIZED DRUG - OTHER] GT SCH (05:38)
[2022-07-25] MEDS: CALCIUM CARB/VITAMIN D 600-400 MG TABLET GT SCH ×2 (05:38→17:59)
[2022-07-25] MEDS: LEVOTHYROXINE SODIUM 125 MCG TABLET PO SCH (05:38)
[2022-07-25 07:05] VITALS: O2SAT 98
[2022-07-25 07:26] VITALS: TEMP 98.5
[2022-07-25] MEDS: HYDROGEN PEROXIDE 3% 118 ML BOTTLE TP SCH ×2 (09:00→19:08)
[2022-07-25] MEDS: COD LIVER OIL/ZINC OXIDE OINT 113 GM TUBE TP SCH ×2 (09:30→20:52)
[2022-07-25] MEDS: [UNRECOGNIZED DRUG - OTHER] GT SCH (09:30)
[2022-07-25] MEDS: VITAMINS A AND D OINT 42 GM TUBE TP SCH (09:30)
[2022-07-25] MEDS: [UNRECOGNIZED DRUG - OTHER] GT SCH ×2 (09:30→20:52)
[2022-07-25 16:01] VITALS: O2SAT 98
[2022-07-25 19:58] VITALS: TEMP 97.9
[2022-07-25] MEDS: MINERAL OIL/PETROLAT OPHT OINT 3.5 GM TUBE EACHEYE SCH (20:52)
[2022-07-25] MEDS: PROTEIN SUPPLEMENT (PROSTAT) 30 ML LIQUID GT SCH (20:52)
[2022-07-25 21:22] VITALS: O2SAT 99
[2022-07-26] MEDS: POLYVINYL ALCOHOL OPHT DROPS 15 ML BOTTLE EACHEYE SCH ×6 (03:30→23:30)
[2022-07-26] MEDS: CALCIUM CARB/VITAMIN D 600-400 MG TABLET GT SCH ×2 (06:29→18:40)
[2022-07-26] MEDS: [UNRECOGNIZED DRUG - OTHER] GT SCH (06:29)
[2022-07-26] MEDS: LEVOTHYROXINE SODIUM 125 MCG TABLET PO SCH (06:29)
[2022-07-26] MEDS: FAMOTIDINE 20 MG TABLET GT SCH (06:29)
[2022-07-26] MEDS: CARBIDOPA/LEVODOPA 25-100MG TABLET GT SCH ×3 (06:29→22:19)
[2022-07-26 07:12] VITALS: O2SAT 98
[2022-07-26 07:42] VITALS: TEMP 97.7
[2022-07-26] MEDS: HYDROGEN PEROXIDE 3% 118 ML BOTTLE TP SCH ×2 (09:00→19:07)
[2022-07-26] MEDS: VITAMINS A AND D OINT 42 GM TUBE TP SCH (09:00)
[2022-07-26] MEDS: [UNRECOGNIZED DRUG - OTHER] GT SCH ×2 (09:02→21:00)
[2022-07-26] MEDS: COD LIVER OIL/ZINC OXIDE OINT 113 GM TUBE TP SCH ×2 (09:03→21:00)
[2022-07-26] MEDS: [UNRECOGNIZED DRUG - OTHER] GT SCH (09:03)
[2022-07-26] MEDS: OSMOLITE 1.2 CAL 1,000 ML LIQUID GT PRN (13:19)
[2022-07-26 16:21] VITALS: O2SAT 98
[2022-07-26 19:40] VITALS: O2SAT 99
[2022-07-26 20:00] VITALS: TEMP 97.8
[2022-07-26] MEDS: MINERAL OIL/PETROLAT OPHT OINT 3.5 GM TUBE EACHEYE SCH (21:00)
[2022-07-26] MEDS: PROTEIN SUPPLEMENT (PROSTAT) 30 ML LIQUID GT SCH (21:00)
[2022-07-27] MEDS: POLYVINYL ALCOHOL OPHT DROPS 15 ML BOTTLE EACHEYE SCH ×6 (03:30→23:27)
[2022-07-27] MEDS: [UNRECOGNIZED DRUG - OTHER] GT SCH (05:27)
[2022-07-27] MEDS: LEVOTHYROXINE SODIUM 125 MCG TABLET PO SCH (05:27)
[2022-07-27] MEDS: FAMOTIDINE 20 MG TABLET GT SCH (05:27)
[2022-07-27] MEDS: CALCIUM CARB/VITAMIN D 600-400 MG TABLET GT SCH ×2 (05:27→18:17)
[2022-07-27] MEDS: CARBIDOPA/LEVODOPA 25-100MG TABLET GT SCH ×3 (05:27→21:22)
[2022-07-27 08:00] VITALS: TEMP 98.6
[2022-07-27] MEDS: [UNRECOGNIZED DRUG - OTHER] GT SCH ×2 (08:08→21:22)
[2022-07-27] MEDS: COD LIVER OIL/ZINC OXIDE OINT 113 GM TUBE TP SCH ×2 (08:08→21:22)
[2022-07-27] MEDS: [UNRECOGNIZED DRUG - OTHER] GT SCH (08:08)
[2022-07-27] MEDS: diphenhydrAMINE 25 MG/10 ML UDC GT PRN (08:12)
[2022-07-27] MEDS: VITAMINS A AND D OINT 42 GM TUBE TP SCH (09:00)
[2022-07-27] MEDS: LOPERAMIDE HCL 2 MG/15 ML GT PRN (09:30)
[2022-07-27 09:50] VITALS: O2SAT 98
[2022-07-27] MEDS: HYDROGEN PEROXIDE 3% 118 ML BOTTLE TP SCH ×2 (09:50→19:17)
[2022-07-27] MEDS: OSMOLITE 1.2 CAL 1,000 ML LIQUID GT PRN (12:34)
[2022-07-27 20:00] VITALS: TEMP 97.6
[2022-07-27] MEDS: PROTEIN SUPPLEMENT (PROSTAT) 30 ML LIQUID GT SCH (21:22)
[2022-07-27] MEDS: MINERAL OIL/PETROLAT OPHT OINT 3.5 GM TUBE EACHEYE SCH (21:22)
[2022-07-27 22:38] VITALS: O2SAT 99
[2022-07-28] MEDS: POLYVINYL ALCOHOL OPHT DROPS 15 ML BOTTLE EACHEYE SCH ×6 (03:30→23:30)
[2022-07-28] MEDS: FAMOTIDINE 20 MG TABLET GT SCH (06:04)
[2022-07-28] MEDS: CARBIDOPA/LEVODOPA 25-100MG TABLET GT SCH ×3 (06:04→21:40)
[2022-07-28] MEDS: LEVOTHYROXINE SODIUM 125 MCG TABLET PO SCH (06:04)
[2022-07-28] MEDS: [UNRECOGNIZED DRUG - OTHER] GT SCH (06:04)
[2022-07-28] MEDS: CALCIUM CARB/VITAMIN D 600-400 MG TABLET GT SCH ×2 (06:04→17:35)
[2022-07-28 07:33] VITALS: TEMP 97.4
[2022-07-28] MEDS: HYDROGEN PEROXIDE 3% 118 ML BOTTLE TP SCH ×2 (08:08→19:19)
[2022-07-28] MEDS: [UNRECOGNIZED DRUG - OTHER] GT SCH ×2 (09:00→21:40)
[2022-07-28] MEDS: COD LIVER OIL/ZINC OXIDE OINT 113 GM TUBE TP SCH ×2 (09:06→21:40)
[2022-07-28] MEDS: [UNRECOGNIZED DRUG - OTHER] GT SCH (09:06)
[2022-07-28] MEDS: VITAMINS A AND D OINT 42 GM TUBE TP SCH (09:06)
[2022-07-28 11:35] VITALS: O2SAT 98
[2022-07-28 20:34] VITALS: TEMP 98
[2022-07-28] MEDS: MINERAL OIL/PETROLAT OPHT OINT 3.5 GM TUBE EACHEYE SCH (21:40)
[2022-07-28] MEDS: PROTEIN SUPPLEMENT (PROSTAT) 30 ML LIQUID GT SCH (21:40)
[2022-07-28 22:18] VITALS: O2SAT 99
[2022-07-29] MEDS: POLYVINYL ALCOHOL OPHT DROPS 15 ML BOTTLE EACHEYE SCH ×5 (03:30→19:51)
[2022-07-29] MEDS: CARBIDOPA/LEVODOPA 25-100MG TABLET GT SCH ×3 (06:05→21:45)
[2022-07-29] MEDS: [UNRECOGNIZED DRUG - OTHER] GT SCH (06:05)
[2022-07-29] MEDS: CALCIUM CARB/VITAMIN D 600-400 MG TABLET GT SCH ×2 (06:05→17:32)
[2022-07-29] MEDS: LEVOTHYROXINE SODIUM 125 MCG TABLET PO SCH (06:05)
[2022-07-29] MEDS: FAMOTIDINE 20 MG TABLET GT SCH (06:05)
[2022-07-29 07:27] VITALS: TEMP 98.6
[2022-07-29] MEDS: HYDROGEN PEROXIDE 3% 118 ML BOTTLE TP SCH ×2 (08:09→19:29)
[2022-07-29] MEDS: COD LIVER OIL/ZINC OXIDE OINT 113 GM TUBE TP SCH ×2 (09:33→20:00)
[2022-07-29] MEDS: VITAMINS A AND D OINT 42 GM TUBE TP SCH (09:33)
[2022-07-29] MEDS: [UNRECOGNIZED DRUG - OTHER] GT SCH (09:34)
[2022-07-29] MEDS: [UNRECOGNIZED DRUG - OTHER] GT SCH ×2 (09:35→21:00)
[2022-07-29] MEDS: LOPERAMIDE HCL 2 MG/15 ML GT PRN (11:21)
[2022-07-29 12:32] VITALS: O2SAT 98
[2022-07-29] MEDS: OSMOLITE 1.2 CAL 1,000 ML LIQUID GT PRN (12:56)
[2022-07-29 19:25] VITALS: O2SAT 99
[2022-07-29] MEDS: PROTEIN SUPPLEMENT (PROSTAT) 30 ML LIQUID GT SCH (20:00)
[2022-07-29] MEDS: MINERAL OIL/PETROLAT OPHT OINT 3.5 GM TUBE EACHEYE SCH (20:00)
[2022-07-29 20:23] VITALS: TEMP 98.5
[2022-07-30] MEDS: POLYVINYL ALCOHOL OPHT DROPS 15 ML BOTTLE EACHEYE SCH ×7 (00:08→23:58)
[2022-07-30] MEDS: [UNRECOGNIZED DRUG - OTHER] GT SCH (05:27)
[2022-07-30] MEDS: CALCIUM CARB/VITAMIN D 600-400 MG TABLET GT SCH ×2 (05:27→18:11)
[2022-07-30] MEDS: CARBIDOPA/LEVODOPA 25-100MG TABLET GT SCH ×3 (05:27→21:06)
[2022-07-30] MEDS: LEVOTHYROXINE SODIUM 125 MCG TABLET PO SCH (05:27)
[2022-07-30] MEDS: FAMOTIDINE 20 MG TABLET GT SCH (05:38)
[2022-07-30 07:10] VITALS: O2SAT 98
[2022-07-30 07:34] VITALS: TEMP 98.9
[2022-07-30] MEDS: HYDROGEN PEROXIDE 3% 118 ML BOTTLE TP SCH ×2 (09:00→19:25)
[2022-07-30] MEDS: [UNRECOGNIZED DRUG - OTHER] GT SCH (09:00)
[2022-07-30] MEDS: [UNRECOGNIZED DRUG - OTHER] GT SCH (09:48)
[2022-07-30] MEDS: COD LIVER OIL/ZINC OXIDE OINT 113 GM TUBE TP SCH ×2 (09:49→21:06)
[2022-07-30] MEDS: VITAMINS A AND D OINT 42 GM TUBE TP SCH (09:51)
[2022-07-30 13:31] VITALS: O2SAT 98
[2022-07-30] MEDS: OSMOLITE 1.2 CAL 1,000 ML LIQUID GT PRN (14:32)
[2022-07-30 19:15] VITALS: O2SAT 99
[2022-07-30 20:00] VITALS: TEMP 82.2
[2022-07-30] MEDS: PROTEIN SUPPLEMENT (PROSTAT) 30 ML LIQUID GT SCH (21:06)
[2022-07-30] MEDS: [UNRECOGNIZED DRUG - OTHER] GT SCH (21:06)
[2022-07-30] MEDS: MINERAL OIL/PETROLAT OPHT OINT 3.5 GM TUBE EACHEYE SCH (21:06)
[2022-07-31] MEDS: POLYVINYL ALCOHOL OPHT DROPS 15 ML BOTTLE EACHEYE SCH ×5 (04:23→20:11)
[2022-07-31] MEDS: CARBIDOPA/LEVODOPA 25-100MG TABLET GT SCH ×3 (05:08→21:39)
[2022-07-31] MEDS: [UNRECOGNIZED DRUG - OTHER] GT SCH (05:08)
[2022-07-31] MEDS: LEVOTHYROXINE SODIUM 125 MCG TABLET PO SCH (05:08)
[2022-07-31] MEDS: ALENDRONATE SODIUM 70 MG GT SCH (05:08)
[2022-07-31] MEDS: CALCIUM CARB/VITAMIN D 600-400 MG TABLET GT SCH ×2 (05:08→18:12)
[2022-07-31] MEDS: FAMOTIDINE 20 MG TABLET GT SCH (05:47)
[2022-07-31 07:13] VITALS: O2SAT 98
[2022-07-31] MEDS: HYDROGEN PEROXIDE 3% 118 ML BOTTLE TP SCH ×2 (07:24→21:12)
[2022-07-31 08:00] VITALS: TEMP 97.2
[2022-07-31] MEDS: COD LIVER OIL/ZINC OXIDE OINT 113 GM TUBE TP SCH ×2 (09:00→20:11)
[2022-07-31] MEDS: [UNRECOGNIZED DRUG - OTHER] GT SCH (09:00)
[2022-07-31] MEDS: [UNRECOGNIZED DRUG - OTHER] GT SCH ×2 (09:00→20:11)
[2022-07-31] MEDS: VITAMINS A AND D OINT 42 GM TUBE TP SCH (09:00)
[2022-07-31] MEDS: OSMOLITE 1.2 CAL 1,000 ML LIQUID GT PRN (10:59)
[2022-07-31 14:52] VITALS: O2SAT 98
[2022-07-31] MEDS: MINERAL OIL/PETROLAT OPHT OINT 3.5 GM TUBE EACHEYE SCH (20:11)
[2022-07-31] MEDS: PROTEIN SUPPLEMENT (PROSTAT) 30 ML LIQUID GT SCH (20:11)
[2022-07-31 21:00] VITALS: TEMP 97.4
[2022-07-31 21:12] VITALS: O2SAT 99
[2022-08-01] MEDS: POLYVINYL ALCOHOL OPHT DROPS 15 ML BOTTLE EACHEYE SCH ×7 (00:11→23:30)
[2022-08-01] MEDS: CARBIDOPA/LEVODOPA 25-100MG TABLET GT SCH ×3 (05:51→22:15)
[2022-08-01] MEDS: [UNRECOGNIZED DRUG - OTHER] GT SCH (05:51)
[2022-08-01] MEDS: FAMOTIDINE 20 MG TABLET GT SCH (05:51)
[2022-08-01] MEDS: LEVOTHYROXINE SODIUM 125 MCG TABLET PO SCH (05:51)
[2022-08-01] MEDS: CALCIUM CARB/VITAMIN D 600-400 MG TABLET GT SCH ×2 (05:51→17:10)
[2022-08-01] MEDS: OSMOLITE 1.2 CAL 1,000 ML LIQUID GT PRN (06:15)
[2022-08-01 08:00] VITALS: TEMP 97.6
[2022-08-01] MEDS: [UNRECOGNIZED DRUG - OTHER] GT SCH (09:40)
[2022-08-01] MEDS: COD LIVER OIL/ZINC OXIDE OINT 113 GM TUBE TP SCH ×2 (09:40→20:50)
[2022-08-01] MEDS: [UNRECOGNIZED DRUG - OTHER] GT SCH ×2 (09:40→20:50)
[2022-08-01] MEDS: VITAMINS A AND D OINT 42 GM TUBE TP SCH (09:41)
[2022-08-01] MEDS: HYDROGEN PEROXIDE 3% 118 ML BOTTLE TP SCH ×2 (09:42→19:27)
[2022-08-01 12:55] VITALS: O2SAT 98
[2022-08-01 19:10] VITALS: O2SAT 99
[2022-08-01] MEDS: PROTEIN SUPPLEMENT (PROSTAT) 30 ML LIQUID GT SCH (20:50)
[2022-08-01] MEDS: MINERAL OIL/PETROLAT OPHT OINT 3.5 GM TUBE EACHEYE SCH (20:50)
[2022-08-01 21:00] VITALS: TEMP 97.5
[2022-08-02] MEDS: OSMOLITE 1.2 CAL 1,000 ML LIQUID GT PRN (03:21)
[2022-08-02] MEDS: POLYVINYL ALCOHOL OPHT DROPS 15 ML BOTTLE EACHEYE SCH ×6 (03:53→23:30)
[2022-08-02] MEDS: CALCIUM CARB/VITAMIN D 600-400 MG TABLET GT SCH ×2 (05:34→18:20)
[2022-08-02] MEDS: FAMOTIDINE 20 MG TABLET GT SCH (05:34)
[2022-08-02] MEDS: CARBIDOPA/LEVODOPA 25-100MG TABLET GT SCH ×3 (05:34→21:58)
[2022-08-02] MEDS: LEVOTHYROXINE SODIUM 125 MCG TABLET PO SCH (05:34)
[2022-08-02] MEDS: [UNRECOGNIZED DRUG - OTHER] GT SCH (05:34)
[2022-08-02 07:47] VITALS: TEMP 98.5
[2022-08-02] MEDS: [UNRECOGNIZED DRUG - OTHER] GT SCH ×2 (09:00→20:54)
[2022-08-02] MEDS: [UNRECOGNIZED DRUG - OTHER] GT SCH (09:00)
[2022-08-02] MEDS: VITAMINS A AND D OINT 42 GM TUBE TP SCH (09:00)
[2022-08-02] MEDS: COD LIVER OIL/ZINC OXIDE OINT 113 GM TUBE TP SCH ×2 (09:00→20:54)
[2022-08-02 09:20] VITALS: O2SAT 98
[2022-08-02] MEDS: HYDROGEN PEROXIDE 3% 118 ML BOTTLE TP SCH ×2 (09:20→19:14)
[2022-08-02 20:16] VITALS: TEMP 97.4
[2022-08-02 20:35] VITALS: O2SAT 99
[2022-08-02] MEDS: PROTEIN SUPPLEMENT (PROSTAT) 30 ML LIQUID GT SCH (20:54)
[2022-08-02] MEDS: MINERAL OIL/PETROLAT OPHT OINT 3.5 GM TUBE EACHEYE SCH (20:54)
[2022-08-03] MEDS: OSMOLITE 1.2 CAL 1,000 ML LIQUID GT PRN (04:22)
[2022-08-03] MEDS: POLYVINYL ALCOHOL OPHT DROPS 15 ML BOTTLE EACHEYE SCH ×6 (04:22→23:30)
[2022-08-03] MEDS: CARBIDOPA/LEVODOPA 25-100MG TABLET GT SCH ×3 (05:37→22:20)
[2022-08-03] MEDS: FAMOTIDINE 20 MG TABLET GT SCH (05:37)
[2022-08-03] MEDS: [UNRECOGNIZED DRUG - OTHER] GT SCH (05:37)
[2022-08-03] MEDS: CALCIUM CARB/VITAMIN D 600-400 MG TABLET GT SCH ×2 (05:37→18:12)
[2022-08-03] MEDS: LEVOTHYROXINE SODIUM 125 MCG TABLET PO SCH (05:37)
[2022-08-03 07:59] VITALS: O2SAT 98
[2022-08-03 08:00] VITALS: TEMP 97.4
[2022-08-03] MEDS: [UNRECOGNIZED DRUG - OTHER] GT SCH ×2 (08:18→20:43)
[2022-08-03] MEDS: [UNRECOGNIZED DRUG - OTHER] GT SCH (08:18)
[2022-08-03] MEDS: VITAMINS A AND D OINT 42 GM TUBE TP SCH (08:18)
[2022-08-03] MEDS: COD LIVER OIL/ZINC OXIDE OINT 113 GM TUBE TP SCH ×2 (08:18→20:43)
[2022-08-03] MEDS: HYDROGEN PEROXIDE 3% 118 ML BOTTLE TP SCH ×2 (09:00→19:05)
[2022-08-03 15:03] VITALS: O2SAT 98
[2022-08-03 20:40] VITALS: O2SAT 99
[2022-08-03] MEDS: MINERAL OIL/PETROLAT OPHT OINT 3.5 GM TUBE EACHEYE SCH (20:43)
[2022-08-03] MEDS: PROTEIN SUPPLEMENT (PROSTAT) 30 ML LIQUID GT SCH (20:43)
[2022-08-03 23:00] VITALS: TEMP 99.1
[2022-08-04] MEDS: POLYVINYL ALCOHOL OPHT DROPS 15 ML BOTTLE EACHEYE SCH ×6 (03:30→23:30)
[2022-08-04] MEDS: [UNRECOGNIZED DRUG - OTHER] GT SCH (05:09)
[2022-08-04] MEDS: CALCIUM CARB/VITAMIN D 600-400 MG TABLET GT SCH ×2 (05:09→17:38)
[2022-08-04] MEDS: CARBIDOPA/LEVODOPA 25-100MG TABLET GT SCH ×3 (05:09→21:12)
[2022-08-04] MEDS: LEVOTHYROXINE SODIUM 125 MCG TABLET PO SCH (05:09)
[2022-08-04] MEDS: FAMOTIDINE 20 MG TABLET GT SCH (05:58)
[2022-08-04 08:00] VITALS: TEMP 98.1
[2022-08-04] MEDS: [UNRECOGNIZED DRUG - OTHER] GT SCH ×2 (09:00→21:11)
[2022-08-04] MEDS: VITAMINS A AND D OINT 42 GM TUBE TP SCH (09:00)
[2022-08-04] MEDS: COD LIVER OIL/ZINC OXIDE OINT 113 GM TUBE TP SCH ×2 (09:00→21:11)
[2022-08-04] MEDS: HYDROGEN PEROXIDE 3% 118 ML BOTTLE TP SCH ×2 (09:00→19:36)
[2022-08-04] MEDS: [UNRECOGNIZED DRUG - OTHER] GT SCH (09:00)
[2022-08-04] MEDS: OSMOLITE 1.2 CAL 1,000 ML LIQUID GT PRN (11:34)
[2022-08-04 11:49] VITALS: O2SAT 98
[2022-08-04 20:12] VITALS: TEMP 98.2
[2022-08-04 21:05] VITALS: O2SAT 99
[2022-08-04] MEDS: MINERAL OIL/PETROLAT OPHT OINT 3.5 GM TUBE EACHEYE SCH (21:11)
[2022-08-04] MEDS: PROTEIN SUPPLEMENT (PROSTAT) 30 ML LIQUID GT SCH (21:11)
[2022-08-05] MEDS: POLYVINYL ALCOHOL OPHT DROPS 15 ML BOTTLE EACHEYE SCH ×6 (04:08→23:30)
[2022-08-05] MEDS: FAMOTIDINE 20 MG TABLET GT SCH (05:43)
[2022-08-05] MEDS: [UNRECOGNIZED DRUG - OTHER] GT SCH (05:43)
[2022-08-05] MEDS: LEVOTHYROXINE SODIUM 125 MCG TABLET PO SCH (05:43)
[2022-08-05] MEDS: CALCIUM CARB/VITAMIN D 600-400 MG TABLET GT SCH ×2 (05:43→17:31)
[2022-08-05] MEDS: CARBIDOPA/LEVODOPA 25-100MG TABLET GT SCH ×3 (05:43→21:56)
[2022-08-05 07:27] VITALS: TEMP 98.7
[2022-08-05] MEDS: [UNRECOGNIZED DRUG - OTHER] GT SCH ×2 (08:04→20:31)
[2022-08-05] MEDS: [UNRECOGNIZED DRUG - OTHER] GT SCH (08:06)
[2022-08-05] MEDS: VITAMINS A AND D OINT 42 GM TUBE TP SCH (08:08)
[2022-08-05] MEDS: LOPERAMIDE HCL 2 MG/15 ML GT PRN (08:09)
[2022-08-05] MEDS: COD LIVER OIL/ZINC OXIDE OINT 113 GM TUBE TP SCH ×2 (08:09→20:31)
[2022-08-05] MEDS: HYDROGEN PEROXIDE 3% 118 ML BOTTLE TP SCH ×2 (08:11→19:13)
[2022-08-05] MEDS: OSMOLITE 1.2 CAL 1,000 ML LIQUID GT PRN (11:22)
[2022-08-05 14:32] VITALS: O2SAT 98
[2022-08-05 20:00] VITALS: TEMP 98
[2022-08-05] MEDS: MINERAL OIL/PETROLAT OPHT OINT 3.5 GM TUBE EACHEYE SCH (20:31)
[2022-08-05] MEDS: PROTEIN SUPPLEMENT (PROSTAT) 30 ML LIQUID GT SCH (20:31)
[2022-08-05 21:31] VITALS: O2SAT 99
[2022-08-06] MEDS: POLYVINYL ALCOHOL OPHT DROPS 15 ML BOTTLE EACHEYE SCH ×6 (03:30→23:30)
[2022-08-06] MEDS: CALCIUM CARB/VITAMIN D 600-400 MG TABLET GT SCH ×2 (05:09→18:11)
[2022-08-06] MEDS: CARBIDOPA/LEVODOPA 25-100MG TABLET GT SCH ×3 (05:09→21:31)
[2022-08-06] MEDS: LEVOTHYROXINE SODIUM 125 MCG TABLET PO SCH (05:09)
[2022-08-06] MEDS: [UNRECOGNIZED DRUG - OTHER] GT SCH (05:09)
[2022-08-06] MEDS: FAMOTIDINE 20 MG TABLET GT SCH (05:35)
[2022-08-06 07:15] VITALS: O2SAT 98
[2022-08-06 07:18] VITALS: TEMP 98.3
[2022-08-06] MEDS: [UNRECOGNIZED DRUG - OTHER] GT SCH (08:04)
[2022-08-06] MEDS: COD LIVER OIL/ZINC OXIDE OINT 113 GM TUBE TP SCH ×2 (08:04→21:31)
[2022-08-06] MEDS: [UNRECOGNIZED DRUG - OTHER] GT SCH ×2 (08:04→21:31)
[2022-08-06] MEDS: VITAMINS A AND D OINT 42 GM TUBE TP SCH (08:08)
[2022-08-06] MEDS: HYDROGEN PEROXIDE 3% 118 ML BOTTLE TP SCH ×2 (08:15→19:27)
[2022-08-06] MEDS: OSMOLITE 1.2 CAL 1,000 ML LIQUID GT PRN (11:57)
[2022-08-06 17:41] VITALS: O2SAT 98
[2022-08-06 19:25] VITALS: O2SAT 99
[2022-08-06 20:00] VITALS: TEMP 98.1
[2022-08-06] MEDS: MINERAL OIL/PETROLAT OPHT OINT 3.5 GM TUBE EACHEYE SCH (21:31)
[2022-08-06] MEDS: PROTEIN SUPPLEMENT (PROSTAT) 30 ML LIQUID GT SCH (21:31)
[2022-08-07] MEDS: POLYVINYL ALCOHOL OPHT DROPS 15 ML BOTTLE EACHEYE SCH ×6 (03:30→23:30)
[2022-08-07] MEDS: ALENDRONATE SODIUM 70 MG GT SCH (05:51)
[2022-08-07] MEDS: CALCIUM CARB/VITAMIN D 600-400 MG TABLET GT SCH ×2 (05:51→17:47)
[2022-08-07] MEDS: [UNRECOGNIZED DRUG - OTHER] GT SCH (05:52)
[2022-08-07] MEDS: FAMOTIDINE 20 MG TABLET GT SCH (05:52)
[2022-08-07] MEDS: LEVOTHYROXINE SODIUM 125 MCG TABLET PO SCH (05:52)
[2022-08-07] MEDS: CARBIDOPA/LEVODOPA 25-100MG TABLET GT SCH ×3 (05:52→21:29)
[2022-08-07 07:22] VITALS: TEMP 97.9
[2022-08-07] MEDS: HYDROGEN PEROXIDE 3% 118 ML BOTTLE TP SCH ×2 (08:13→19:06)
[2022-08-07] MEDS: VITAMINS A AND D OINT 42 GM TUBE TP SCH (08:22)
[2022-08-07] MEDS: [UNRECOGNIZED DRUG - OTHER] GT SCH ×2 (08:22→21:29)
[2022-08-07] MEDS: COD LIVER OIL/ZINC OXIDE OINT 113 GM TUBE TP SCH ×2 (08:22→21:29)
[2022-08-07] MEDS: [UNRECOGNIZED DRUG - OTHER] GT SCH (08:22)
[2022-08-07] MEDS: LOPERAMIDE HCL 2 MG/15 ML GT PRN (09:20)
[2022-08-07 12:33] VITALS: O2SAT 98
[2022-08-07] MEDS: OSMOLITE 1.2 CAL 1,000 ML LIQUID GT PRN (13:58)
[2022-08-07 19:05] VITALS: O2SAT 99
[2022-08-07 20:36] VITALS: TEMP 98.4
[2022-08-07] MEDS: MINERAL OIL/PETROLAT OPHT OINT 3.5 GM TUBE EACHEYE SCH (21:29)
[2022-08-07] MEDS: PROTEIN SUPPLEMENT (PROSTAT) 30 ML LIQUID GT SCH (21:29)
[2022-08-08] MEDS: POLYVINYL ALCOHOL OPHT DROPS 15 ML BOTTLE EACHEYE SCH ×6 (03:30→23:30)
[2022-08-08] MEDS: LEVOTHYROXINE SODIUM 125 MCG TABLET PO SCH (05:53)
[2022-08-08] MEDS: FAMOTIDINE 20 MG TABLET GT SCH (05:53)
[2022-08-08] MEDS: CALCIUM CARB/VITAMIN D 600-400 MG TABLET GT SCH ×2 (05:53→17:35)
[2022-08-08] MEDS: CARBIDOPA/LEVODOPA 25-100MG TABLET GT SCH ×3 (05:53→21:07)
[2022-08-08] MEDS: [UNRECOGNIZED DRUG - OTHER] GT SCH (05:53)
[2022-08-08 07:15] VITALS: O2SAT 98
[2022-08-08 07:22] VITALS: TEMP 98.5
[2022-08-08] MEDS: [UNRECOGNIZED DRUG - OTHER] GT SCH (08:39)
[2022-08-08] MEDS: [UNRECOGNIZED DRUG - OTHER] GT SCH ×2 (08:39→21:07)
[2022-08-08] MEDS: COD LIVER OIL/ZINC OXIDE OINT 113 GM TUBE TP SCH ×2 (08:43→21:07)
[2022-08-08] MEDS: HYDROGEN PEROXIDE 3% 118 ML BOTTLE TP SCH ×2 (09:00→21:22)
[2022-08-08] MEDS: VITAMINS A AND D OINT 42 GM TUBE TP SCH (09:00)
[2022-08-08 14:40] VITALS: O2SAT 98
[2022-08-08 19:30] VITALS: O2SAT 99
[2022-08-08 20:00] VITALS: TEMP 98
[2022-08-08] MEDS: PROTEIN SUPPLEMENT (PROSTAT) 30 ML LIQUID GT SCH (21:07)
[2022-08-08] MEDS: MINERAL OIL/PETROLAT OPHT OINT 3.5 GM TUBE EACHEYE SCH (21:07)
[2022-08-09] MEDS: POLYVINYL ALCOHOL OPHT DROPS 15 ML BOTTLE EACHEYE SCH ×6 (03:30→23:30)
[2022-08-09] MEDS: CARBIDOPA/LEVODOPA 25-100MG TABLET GT SCH ×3 (05:43→21:38)
[2022-08-09] MEDS: [UNRECOGNIZED DRUG - OTHER] GT SCH (05:43)
[2022-08-09] MEDS: CALCIUM CARB/VITAMIN D 600-400 MG TABLET GT SCH ×2 (05:43→17:12)
[2022-08-09] MEDS: FAMOTIDINE 20 MG TABLET GT SCH (05:43)
[2022-08-09] MEDS: LEVOTHYROXINE SODIUM 125 MCG TABLET PO SCH (05:43)
[2022-08-09] MEDS: HYDROGEN PEROXIDE 3% 118 ML BOTTLE TP SCH ×2 (07:45→20:26)
[2022-08-09 07:53] VITALS: TEMP 98.3
[2022-08-09] MEDS: [UNRECOGNIZED DRUG - OTHER] GT SCH ×2 (09:10→21:31)
[2022-08-09] MEDS: COD LIVER OIL/ZINC OXIDE OINT 113 GM TUBE TP SCH ×2 (09:11→21:37)
[2022-08-09] MEDS: [UNRECOGNIZED DRUG - OTHER] GT SCH (09:11)
[2022-08-09] MEDS: VITAMINS A AND D OINT 42 GM TUBE TP SCH (09:11)
[2022-08-09 10:30] VITALS: O2SAT 98
[2022-08-09 19:50] VITALS: O2SAT 99
[2022-08-09 20:00] VITALS: TEMP 98
[2022-08-09] MEDS: MINERAL OIL/PETROLAT OPHT OINT 3.5 GM TUBE EACHEYE SCH (21:31)
[2022-08-09] MEDS: PROTEIN SUPPLEMENT (PROSTAT) 30 ML LIQUID GT SCH (21:37)
[2022-08-10] MEDS: POLYVINYL ALCOHOL OPHT DROPS 15 ML BOTTLE EACHEYE SCH ×6 (03:40→23:30)
[2022-08-10] MEDS: MINERAL OIL/PETROLAT OPHT OINT 3.5 GM TUBE EACHEYE SCH (04:34)
[2022-08-10] MEDS: CALCIUM CARB/VITAMIN D 600-400 MG TABLET GT SCH ×2 (04:42→17:41)
[2022-08-10] MEDS: [UNRECOGNIZED DRUG - OTHER] GT SCH (04:42)
[2022-08-10] MEDS: FAMOTIDINE 20 MG TABLET GT SCH (04:43)
[2022-08-10] MEDS: LEVOTHYROXINE SODIUM 125 MCG TABLET PO SCH (04:43)
[2022-08-10] MEDS: CARBIDOPA/LEVODOPA 25-100MG TABLET GT SCH ×3 (04:43→21:25)
[2022-08-10] MEDS: HYDROGEN PEROXIDE 3% 118 ML BOTTLE TP SCH ×2 (07:31→19:17)
[2022-08-10 08:03] VITALS: TEMP 97.9
[2022-08-10] MEDS: [UNRECOGNIZED DRUG - OTHER] GT SCH (08:46)
[2022-08-10] MEDS: [UNRECOGNIZED DRUG - OTHER] GT SCH ×2 (08:46→21:24)
[2022-08-10] MEDS: COD LIVER OIL/ZINC OXIDE OINT 113 GM TUBE TP SCH ×2 (08:46→21:25)
[2022-08-10] MEDS: VITAMINS A AND D OINT 42 GM TUBE TP SCH (08:47)
[2022-08-10 10:30] VITALS: O2SAT 98
[2022-08-10] MEDS: OSMOLITE 1.2 CAL 1,000 ML LIQUID GT PRN (15:10)
[2022-08-10 20:53] VITALS: TEMP 98
[2022-08-10] MEDS: PROTEIN SUPPLEMENT (PROSTAT) 30 ML LIQUID GT SCH (21:24)
[2022-08-10 22:28] VITALS: O2SAT 99
[2022-08-11] MEDS: POLYVINYL ALCOHOL OPHT DROPS 15 ML BOTTLE EACHEYE SCH ×5 (03:30→19:30)
[2022-08-11] MEDS: [UNRECOGNIZED DRUG - OTHER] GT SCH (06:35)
[2022-08-11] MEDS: LEVOTHYROXINE SODIUM 125 MCG TABLET PO SCH (06:35)
[2022-08-11] MEDS: CARBIDOPA/LEVODOPA 25-100MG TABLET GT SCH ×3 (06:35→21:19)
[2022-08-11] MEDS: FAMOTIDINE 20 MG TABLET GT SCH (06:35)
[2022-08-11] MEDS: CALCIUM CARB/VITAMIN D 600-400 MG TABLET GT SCH ×2 (06:35→17:31)
[2022-08-11 07:31] VITALS: TEMP 98
[2022-08-11] MEDS: HYDROGEN PEROXIDE 3% 118 ML BOTTLE TP SCH ×2 (08:04→19:31)
[2022-08-11] MEDS: [UNRECOGNIZED DRUG - OTHER] GT SCH ×2 (09:04→20:49)
[2022-08-11] MEDS: COD LIVER OIL/ZINC OXIDE OINT 113 GM TUBE TP SCH ×2 (09:04→20:49)
[2022-08-11] MEDS: [UNRECOGNIZED DRUG - OTHER] GT SCH (09:04)
[2022-08-11] MEDS: VITAMINS A AND D OINT 42 GM TUBE TP SCH (09:04)
[2022-08-11 10:00] VITALS: O2SAT 98
[2022-08-11] MEDS: LOPERAMIDE HCL 2 MG/15 ML GT PRN (10:10)
[2022-08-11 13:45] VITALS: O2SAT 98
[2022-08-11] MEDS: OSMOLITE 1.2 CAL 1,000 ML LIQUID GT PRN (14:39)
[2022-08-11] MEDS: diphenhydrAMINE 25 MG/10 ML UDC GT PRN (17:32)
[2022-08-11 19:00] VITALS: TEMP 98
[2022-08-11 19:30] VITALS: O2SAT 97; O2SAT 99
[2022-08-11] MEDS: MINERAL OIL/PETROLAT OPHT OINT 3.5 GM TUBE EACHEYE SCH (20:49)
[2022-08-11] MEDS: PROTEIN SUPPLEMENT (PROSTAT) 30 ML LIQUID GT SCH (20:49)
[2022-08-12] MEDS: POLYVINYL ALCOHOL OPHT DROPS 15 ML BOTTLE EACHEYE SCH ×7 (00:14→23:30)
[2022-08-12] MEDS: CARBIDOPA/LEVODOPA 25-100MG TABLET GT SCH ×3 (05:16→22:58)
[2022-08-12] MEDS: CALCIUM CARB/VITAMIN D 600-400 MG TABLET GT SCH ×2 (05:16→17:04)
[2022-08-12] MEDS: [UNRECOGNIZED DRUG - OTHER] GT SCH (05:16)
[2022-08-12] MEDS: LEVOTHYROXINE SODIUM 125 MCG TABLET PO SCH (05:16)
[2022-08-12] MEDS: FAMOTIDINE 20 MG TABLET GT SCH (05:32)
[2022-08-12] MEDS: HYDROGEN PEROXIDE 3% 118 ML BOTTLE TP SCH ×2 (07:21→19:36)
[2022-08-12 07:25] VITALS: TEMP 98.9
[2022-08-12] MEDS: [UNRECOGNIZED DRUG - OTHER] GT SCH ×2 (08:58→20:29)
[2022-08-12] MEDS: [UNRECOGNIZED DRUG - OTHER] GT SCH (08:58)
[2022-08-12] MEDS: VITAMINS A AND D OINT 42 GM TUBE TP SCH (08:59)
[2022-08-12] MEDS: COD LIVER OIL/ZINC OXIDE OINT 113 GM TUBE TP SCH ×2 (08:59→20:29)
[2022-08-12 10:20] VITALS: O2SAT 98
[2022-08-12] MEDS: LOPERAMIDE HCL 2 MG/15 ML GT PRN (13:26)
[2022-08-12] MEDS: diphenhydrAMINE 25 MG/10 ML UDC GT PRN (14:49)
[2022-08-12 20:00] VITALS: TEMP 98.1; O2SAT 99
[2022-08-12] MEDS: PROTEIN SUPPLEMENT (PROSTAT) 30 ML LIQUID GT SCH (20:29)
[2022-08-12] MEDS: MINERAL OIL/PETROLAT OPHT OINT 3.5 GM TUBE EACHEYE SCH (20:29)
[2022-08-13] MEDS: POLYVINYL ALCOHOL OPHT DROPS 15 ML BOTTLE EACHEYE SCH ×6 (04:17→23:42)
[2022-08-13] MEDS: LEVOTHYROXINE SODIUM 125 MCG TABLET PO SCH (05:13)
[2022-08-13] MEDS: [UNRECOGNIZED DRUG - OTHER] GT SCH (05:13)
[2022-08-13] MEDS: CARBIDOPA/LEVODOPA 25-100MG TABLET GT SCH ×3 (05:13→21:15)
[2022-08-13] MEDS: CALCIUM CARB/VITAMIN D 600-400 MG TABLET GT SCH ×2 (05:13→17:57)
[2022-08-13] MEDS: FAMOTIDINE 20 MG TABLET GT SCH (05:50)
[2022-08-13 07:28] VITALS: TEMP 98.3
[2022-08-13 08:07] VITALS: O2SAT 98
[2022-08-13] MEDS: HYDROGEN PEROXIDE 3% 118 ML BOTTLE TP SCH ×2 (08:07→19:17)
[2022-08-13] MEDS: [UNRECOGNIZED DRUG - OTHER] GT SCH (09:00)
[2022-08-13] MEDS: VITAMINS A AND D OINT 42 GM TUBE TP SCH (09:00)
[2022-08-13] MEDS: [UNRECOGNIZED DRUG - OTHER] GT SCH ×2 (09:00→21:15)
[2022-08-13] MEDS: COD LIVER OIL/ZINC OXIDE OINT 113 GM TUBE TP SCH ×2 (09:00→21:15)
[2022-08-13 17:34] VITALS: O2SAT 98
[2022-08-13 20:00] VITALS: TEMP 98.2
[2022-08-13 20:50] VITALS: O2SAT 99
[2022-08-13] MEDS: PROTEIN SUPPLEMENT (PROSTAT) 30 ML LIQUID GT SCH (21:15)
[2022-08-13] MEDS: MINERAL OIL/PETROLAT OPHT OINT 3.5 GM TUBE EACHEYE SCH (21:15)
[2022-08-14] MEDS: POLYVINYL ALCOHOL OPHT DROPS 15 ML BOTTLE EACHEYE SCH ×5 (03:13→19:30)
[2022-08-14] MEDS: [UNRECOGNIZED DRUG - OTHER] GT SCH (05:30)
[2022-08-14] MEDS: ALENDRONATE SODIUM 70 MG GT SCH (05:30)
[2022-08-14] MEDS: CARBIDOPA/LEVODOPA 25-100MG TABLET GT SCH ×3 (05:30→21:08)
[2022-08-14] MEDS: LEVOTHYROXINE SODIUM 125 MCG TABLET PO SCH (05:30)
[2022-08-14] MEDS: CALCIUM CARB/VITAMIN D 600-400 MG TABLET GT SCH ×2 (05:30→17:11)
[2022-08-14] MEDS: FAMOTIDINE 20 MG TABLET GT SCH (05:31)
[2022-08-14] MEDS: HYDROGEN PEROXIDE 3% 118 ML BOTTLE TP SCH ×2 (08:00→20:05)
[2022-08-14] MEDS: VITAMINS A AND D OINT 42 GM TUBE TP SCH (09:01)
[2022-08-14] MEDS: COD LIVER OIL/ZINC OXIDE OINT 113 GM TUBE TP SCH ×2 (09:01→21:05)
[2022-08-14] MEDS: [UNRECOGNIZED DRUG - OTHER] GT SCH ×2 (09:01→21:04)
[2022-08-14] MEDS: [UNRECOGNIZED DRUG - OTHER] GT SCH (09:01)
[2022-08-14 10:50] VITALS: O2SAT 98
[2022-08-14 20:24] VITALS: TEMP 98.7
[2022-08-14] MEDS: MINERAL OIL/PETROLAT OPHT OINT 3.5 GM TUBE EACHEYE SCH (21:04)
[2022-08-14 21:05] VITALS: O2SAT 99
[2022-08-14] MEDS: PROTEIN SUPPLEMENT (PROSTAT) 30 ML LIQUID GT SCH (21:05)
[2022-08-15] MEDS: POLYVINYL ALCOHOL OPHT DROPS 15 ML BOTTLE EACHEYE SCH ×7 (00:25→23:30)
[2022-08-15] MEDS: [UNRECOGNIZED DRUG - OTHER] GT SCH (05:10)
[2022-08-15] MEDS: LEVOTHYROXINE SODIUM 125 MCG TABLET PO SCH (05:10)
[2022-08-15] MEDS: CALCIUM CARB/VITAMIN D 600-400 MG TABLET GT SCH ×2 (05:10→17:16)
[2022-08-15] MEDS: CARBIDOPA/LEVODOPA 25-100MG TABLET GT SCH ×3 (05:10→22:37)
[2022-08-15] MEDS: FAMOTIDINE 20 MG TABLET GT SCH (06:30)
[2022-08-15 08:00] VITALS: TEMP 97.8
[2022-08-15 08:15] VITALS: O2SAT 98
[2022-08-15] MEDS: COD LIVER OIL/ZINC OXIDE OINT 113 GM TUBE TP SCH ×2 (09:00→20:56)
[2022-08-15] MEDS: [UNRECOGNIZED DRUG - OTHER] GT SCH (09:00)
[2022-08-15] MEDS: VITAMINS A AND D OINT 42 GM TUBE TP SCH (09:00)
[2022-08-15] MEDS: HYDROGEN PEROXIDE 3% 118 ML BOTTLE TP SCH ×2 (09:29→20:26)
[2022-08-15] MEDS: [UNRECOGNIZED DRUG - OTHER] GT SCH ×2 (09:58→20:56)
[2022-08-15] MEDS: OSMOLITE 1.2 CAL 1,000 ML LIQUID GT PRN (12:42)
[2022-08-15 20:00] VITALS: O2SAT 99
[2022-08-15 20:50] VITALS: TEMP 97.9
[2022-08-15] MEDS: PROTEIN SUPPLEMENT (PROSTAT) 30 ML LIQUID GT SCH (20:56)
[2022-08-15] MEDS: MINERAL OIL/PETROLAT OPHT OINT 3.5 GM TUBE EACHEYE SCH (20:56)
[2022-08-16] MEDS: POLYVINYL ALCOHOL OPHT DROPS 15 ML BOTTLE EACHEYE SCH ×6 (03:30→23:31)
[2022-08-16] MEDS: CALCIUM CARB/VITAMIN D 600-400 MG TABLET GT SCH ×2 (05:54→18:45)
[2022-08-16] MEDS: CARBIDOPA/LEVODOPA 25-100MG TABLET GT SCH ×3 (05:54→21:50)
[2022-08-16] MEDS: [UNRECOGNIZED DRUG - OTHER] GT SCH (05:54)
[2022-08-16] MEDS: LEVOTHYROXINE SODIUM 125 MCG TABLET PO SCH (05:54)
[2022-08-16] MEDS: FAMOTIDINE 20 MG TABLET GT SCH (05:54)
[2022-08-16 07:59] VITALS: O2SAT 98
[2022-08-16 08:00] VITALS: TEMP 97.4
[2022-08-16] MEDS: [UNRECOGNIZED DRUG - OTHER] GT SCH ×2 (09:00→21:50)
[2022-08-16] MEDS: COD LIVER OIL/ZINC OXIDE OINT 113 GM TUBE TP SCH ×2 (09:00→21:50)
[2022-08-16] MEDS: HYDROGEN PEROXIDE 3% 118 ML BOTTLE TP SCH ×2 (09:00→19:19)
[2022-08-16] MEDS: VITAMINS A AND D OINT 42 GM TUBE TP SCH (09:00)
[2022-08-16] MEDS: [UNRECOGNIZED DRUG - OTHER] GT SCH (09:00)
[2022-08-16] MEDS: OSMOLITE 1.2 CAL 1,000 ML LIQUID GT PRN (14:10)
[2022-08-16 20:10] VITALS: O2SAT 99
[2022-08-16 20:33] VITALS: TEMP 98.3
[2022-08-16] MEDS: MINERAL OIL/PETROLAT OPHT OINT 3.5 GM TUBE EACHEYE SCH (21:50)
[2022-08-16] MEDS: PROTEIN SUPPLEMENT (PROSTAT) 30 ML LIQUID GT SCH (21:50)
[2022-08-17] MEDS: POLYVINYL ALCOHOL OPHT DROPS 15 ML BOTTLE EACHEYE SCH ×6 (03:30→22:56)
[2022-08-17] MEDS: diphenhydrAMINE 25 MG/10 ML UDC GT PRN (04:31)
[2022-08-17] MEDS: [UNRECOGNIZED DRUG - OTHER] GT SCH (05:34)
[2022-08-17] MEDS: CALCIUM CARB/VITAMIN D 600-400 MG TABLET GT SCH ×2 (05:34→18:13)
[2022-08-17] MEDS: CARBIDOPA/LEVODOPA 25-100MG TABLET GT SCH ×3 (05:35→22:54)
[2022-08-17] MEDS: LEVOTHYROXINE SODIUM 125 MCG TABLET PO SCH (05:35)
[2022-08-17] MEDS: FAMOTIDINE 20 MG TABLET GT SCH (05:35)
[2022-08-17 07:36] VITALS: O2SAT 98
[2022-08-17 08:00] VITALS: TEMP 97.6
[2022-08-17] MEDS: HYDROGEN PEROXIDE 3% 118 ML BOTTLE TP SCH ×3 (08:59→20:40)
[2022-08-17] MEDS: [UNRECOGNIZED DRUG - OTHER] GT SCH (09:20)
[2022-08-17] MEDS: [UNRECOGNIZED DRUG - OTHER] GT SCH ×2 (09:20→20:49)
[2022-08-17] MEDS: COD LIVER OIL/ZINC OXIDE OINT 113 GM TUBE TP SCH ×2 (09:21→20:49)
[2022-08-17] MEDS: VITAMINS A AND D OINT 42 GM TUBE TP SCH (09:22)
[2022-08-17 14:35] VITALS: O2SAT 98
[2022-08-17] MEDS: PROTEIN SUPPLEMENT (PROSTAT) 30 ML LIQUID GT SCH (20:49)
[2022-08-17] MEDS: MINERAL OIL/PETROLAT OPHT OINT 3.5 GM TUBE EACHEYE SCH (20:49)
[2022-08-17 20:51] VITALS: TEMP 98.6
[2022-08-17 21:00] VITALS: O2SAT 99
[2022-08-18] MEDS: POLYVINYL ALCOHOL OPHT DROPS 15 ML BOTTLE EACHEYE SCH ×6 (03:54→23:30)
[2022-08-18] MEDS: CALCIUM CARB/VITAMIN D 600-400 MG TABLET GT SCH ×2 (05:36→17:32)
[2022-08-18] MEDS: LEVOTHYROXINE SODIUM 125 MCG TABLET PO SCH (05:36)
[2022-08-18] MEDS: FAMOTIDINE 20 MG TABLET GT SCH (05:36)
[2022-08-18] MEDS: CARBIDOPA/LEVODOPA 25-100MG TABLET GT SCH ×3 (05:36→21:29)
[2022-08-18] MEDS: [UNRECOGNIZED DRUG - OTHER] GT SCH (05:36)
[2022-08-18 07:26] VITALS: TEMP 97.4
[2022-08-18] MEDS: [UNRECOGNIZED DRUG - OTHER] GT SCH ×2 (08:37→21:29)
[2022-08-18] MEDS: [UNRECOGNIZED DRUG - OTHER] GT SCH (08:37)
[2022-08-18] MEDS: COD LIVER OIL/ZINC OXIDE OINT 113 GM TUBE TP SCH ×2 (08:37→21:29)
[2022-08-18] MEDS: VITAMINS A AND D OINT 42 GM TUBE TP SCH (08:37)
[2022-08-18 08:55] VITALS: O2SAT 98
[2022-08-18] MEDS: HYDROGEN PEROXIDE 3% 118 ML BOTTLE TP SCH ×2 (09:00→19:15)
[2022-08-18 11:24] VITALS: O2SAT 98
[2022-08-18] MEDS: OSMOLITE 1.2 CAL 1,000 ML LIQUID GT PRN (13:32)
[2022-08-18 20:29] VITALS: O2SAT 99
[2022-08-18] MEDS: MINERAL OIL/PETROLAT OPHT OINT 3.5 GM TUBE EACHEYE SCH (21:29)
[2022-08-18] MEDS: PROTEIN SUPPLEMENT (PROSTAT) 30 ML LIQUID GT SCH (21:29)
[2022-08-18 21:32] VITALS: TEMP 98.1
[2022-08-19] MEDS: POLYVINYL ALCOHOL OPHT DROPS 15 ML BOTTLE EACHEYE SCH ×6 (03:30→23:30)
[2022-08-19] MEDS: CARBIDOPA/LEVODOPA 25-100MG TABLET GT SCH ×3 (05:27→22:28)
[2022-08-19] MEDS: [UNRECOGNIZED DRUG - OTHER] GT SCH (05:27)
[2022-08-19] MEDS: CALCIUM CARB/VITAMIN D 600-400 MG TABLET GT SCH ×2 (05:27→17:34)
[2022-08-19] MEDS: LEVOTHYROXINE SODIUM 125 MCG TABLET PO SCH (05:27)
[2022-08-19] MEDS: FAMOTIDINE 20 MG TABLET GT SCH (05:32)
[2022-08-19 07:28] VITALS: TEMP 98.1
[2022-08-19] MEDS: HYDROGEN PEROXIDE 3% 118 ML BOTTLE TP SCH ×2 (08:09→19:26)
[2022-08-19] MEDS: [UNRECOGNIZED DRUG - OTHER] GT SCH (09:09)
[2022-08-19] MEDS: COD LIVER OIL/ZINC OXIDE OINT 113 GM TUBE TP SCH ×2 (09:09→20:43)
[2022-08-19] MEDS: [UNRECOGNIZED DRUG - OTHER] GT SCH ×2 (09:09→20:43)
[2022-08-19] MEDS: VITAMINS A AND D OINT 42 GM TUBE TP SCH (09:09)
[2022-08-19 10:30] VITALS: O2SAT 98
[2022-08-19 20:00] VITALS: TEMP 97.9
[2022-08-19] MEDS: PROTEIN SUPPLEMENT (PROSTAT) 30 ML LIQUID GT SCH (20:43)
[2022-08-19] MEDS: MINERAL OIL/PETROLAT OPHT OINT 3.5 GM TUBE EACHEYE SCH (20:43)
[2022-08-19] MEDS: diphenhydrAMINE 25 MG/10 ML UDC GT PRN (22:00)
[2022-08-19 22:51] VITALS: O2SAT 99
[2022-08-20] MEDS: POLYVINYL ALCOHOL OPHT DROPS 15 ML BOTTLE EACHEYE SCH ×6 (03:37→23:30)
[2022-08-20] MEDS: CALCIUM CARB/VITAMIN D 600-400 MG TABLET GT SCH ×2 (05:45→17:45)
[2022-08-20] MEDS: LEVOTHYROXINE SODIUM 125 MCG TABLET PO SCH (05:45)
[2022-08-20] MEDS: [UNRECOGNIZED DRUG - OTHER] GT SCH (05:45)
[2022-08-20] MEDS: FAMOTIDINE 20 MG TABLET GT SCH (05:45)
[2022-08-20] MEDS: CARBIDOPA/LEVODOPA 25-100MG TABLET GT SCH ×3 (05:45→21:24)
[2022-08-20 07:32] VITALS: TEMP 98.1
[2022-08-20] MEDS: HYDROGEN PEROXIDE 3% 118 ML BOTTLE TP SCH ×2 (08:28→21:00)
[2022-08-20] MEDS: VITAMINS A AND D OINT 42 GM TUBE TP SCH (08:47)
[2022-08-20] MEDS: [UNRECOGNIZED DRUG - OTHER] GT SCH (08:47)
[2022-08-20] MEDS: COD LIVER OIL/ZINC OXIDE OINT 113 GM TUBE TP SCH ×2 (08:47→21:23)
[2022-08-20] MEDS: [UNRECOGNIZED DRUG - OTHER] GT SCH ×2 (08:47→21:23)
[2022-08-20 10:35] VITALS: O2SAT 97
[2022-08-20] MEDS: LOPERAMIDE HCL 2 MG/15 ML GT PRN (13:36)
[2022-08-20] MEDS: OSMOLITE 1.2 CAL 1,000 ML LIQUID GT PRN (13:36)
[2022-08-20 20:00] VITALS: TEMP 98.5
[2022-08-20] MEDS: PROTEIN SUPPLEMENT (PROSTAT) 30 ML LIQUID GT SCH (21:23)
[2022-08-20] MEDS: MINERAL OIL/PETROLAT OPHT OINT 3.5 GM TUBE EACHEYE SCH (21:23)
[2022-08-21] MEDS: POLYVINYL ALCOHOL OPHT DROPS 15 ML BOTTLE EACHEYE SCH ×6 (03:30→23:30)
[2022-08-21] MEDS: [UNRECOGNIZED DRUG - OTHER] GT SCH (06:00)
[2022-08-21] MEDS: ALENDRONATE SODIUM 70 MG GT SCH (06:10)
[2022-08-21] MEDS: CALCIUM CARB/VITAMIN D 600-400 MG TABLET GT SCH ×2 (06:11→17:22)
[2022-08-21] MEDS: LEVOTHYROXINE SODIUM 125 MCG TABLET PO SCH (06:11)
[2022-08-21] MEDS: CARBIDOPA/LEVODOPA 25-100MG TABLET GT SCH ×3 (06:11→21:31)
[2022-08-21] MEDS: FAMOTIDINE 20 MG TABLET GT SCH (06:11)
[2022-08-21 07:25] VITALS: TEMP 98.9
[2022-08-21] MEDS: HYDROGEN PEROXIDE 3% 118 ML BOTTLE TP SCH ×2 (08:09→20:26)
[2022-08-21] MEDS: [UNRECOGNIZED DRUG - OTHER] GT SCH ×2 (09:31→21:31)
[2022-08-21] MEDS: VITAMINS A AND D OINT 42 GM TUBE TP SCH (09:32)
[2022-08-21] MEDS: [UNRECOGNIZED DRUG - OTHER] GT SCH (09:32)
[2022-08-21] MEDS: COD LIVER OIL/ZINC OXIDE OINT 113 GM TUBE TP SCH ×2 (09:32→21:31)
[2022-08-21 10:30] VITALS: O2SAT 98
[2022-08-21] MEDS: OSMOLITE 1.2 CAL 1,000 ML LIQUID GT PRN (16:15)
[2022-08-21 19:52] VITALS: TEMP 98
[2022-08-21 20:10] VITALS: O2SAT 99
[2022-08-21] MEDS: PROTEIN SUPPLEMENT (PROSTAT) 30 ML LIQUID GT SCH (21:31)
[2022-08-21] MEDS: MINERAL OIL/PETROLAT OPHT OINT 3.5 GM TUBE EACHEYE SCH (21:31)
[2022-08-22] MEDS: POLYVINYL ALCOHOL OPHT DROPS 15 ML BOTTLE EACHEYE SCH ×6 (03:30→23:30)
[2022-08-22] MEDS: CALCIUM CARB/VITAMIN D 600-400 MG TABLET GT SCH ×2 (05:38→17:10)
[2022-08-22] MEDS: FAMOTIDINE 20 MG TABLET GT SCH (05:38)
[2022-08-22] MEDS: CARBIDOPA/LEVODOPA 25-100MG TABLET GT SCH ×3 (05:38→21:20)
[2022-08-22] MEDS: [UNRECOGNIZED DRUG - OTHER] GT SCH (05:38)
[2022-08-22] MEDS: LEVOTHYROXINE SODIUM 125 MCG TABLET PO SCH (05:38)
[2022-08-22] MEDS: ALENDRONATE SODIUM 70 MG GT SCH (05:45)
[2022-08-22] MEDS: HYDROGEN PEROXIDE 3% 118 ML BOTTLE TP SCH ×2 (07:07→19:14)
[2022-08-22 08:01] VITALS: TEMP 98.6
[2022-08-22] MEDS: [UNRECOGNIZED DRUG - OTHER] GT SCH ×2 (08:58→21:19)
[2022-08-22] MEDS: [UNRECOGNIZED DRUG - OTHER] GT SCH (08:58)
[2022-08-22] MEDS: COD LIVER OIL/ZINC OXIDE OINT 113 GM TUBE TP SCH ×2 (08:59→21:20)
[2022-08-22] MEDS: VITAMINS A AND D OINT 42 GM TUBE TP SCH (08:59)
[2022-08-22 10:40] VITALS: O2SAT 96
[2022-08-22 19:48] VITALS: TEMP 97.9
[2022-08-22 20:50] VITALS: O2SAT 99
[2022-08-22] MEDS: MINERAL OIL/PETROLAT OPHT OINT 3.5 GM TUBE EACHEYE SCH (21:19)
[2022-08-22] MEDS: PROTEIN SUPPLEMENT (PROSTAT) 30 ML LIQUID GT SCH (21:20)
[2022-08-23] MEDS: POLYVINYL ALCOHOL OPHT DROPS 15 ML BOTTLE EACHEYE SCH ×6 (03:30→22:44)
[2022-08-23] MEDS: [UNRECOGNIZED DRUG - OTHER] GT SCH (06:08)
[2022-08-23] MEDS: CALCIUM CARB/VITAMIN D 600-400 MG TABLET GT SCH ×2 (06:08→18:23)
[2022-08-23] MEDS: CARBIDOPA/LEVODOPA 25-100MG TABLET GT SCH ×3 (06:08→22:42)
[2022-08-23] MEDS: FAMOTIDINE 20 MG TABLET GT SCH (06:08)
[2022-08-23] MEDS: LEVOTHYROXINE SODIUM 125 MCG TABLET PO SCH (06:08)
[2022-08-23 07:30] VITALS: O2SAT 96
[2022-08-23] MEDS: HYDROGEN PEROXIDE 3% 118 ML BOTTLE TP SCH ×2 (07:30→19:04)
[2022-08-23 07:45] VITALS: TEMP 98.3
[2022-08-23] MEDS: [UNRECOGNIZED DRUG - OTHER] GT SCH ×2 (09:53→21:00)
[2022-08-23] MEDS: [UNRECOGNIZED DRUG - OTHER] GT SCH (09:53)
[2022-08-23] MEDS: COD LIVER OIL/ZINC OXIDE OINT 113 GM TUBE TP SCH ×2 (09:53→20:42)
[2022-08-23] MEDS: VITAMINS A AND D OINT 42 GM TUBE TP SCH (09:53)
[2022-08-23 20:00] VITALS: TEMP 97.9
[2022-08-23 20:30] VITALS: O2SAT 99
[2022-08-23] MEDS: PROTEIN SUPPLEMENT (PROSTAT) 30 ML LIQUID GT SCH (20:42)
[2022-08-23] MEDS: MINERAL OIL/PETROLAT OPHT OINT 3.5 GM TUBE EACHEYE SCH (20:44)
[2022-08-24] MEDS: POLYVINYL ALCOHOL OPHT DROPS 15 ML BOTTLE EACHEYE SCH ×6 (04:00→19:30)
[2022-08-24] MEDS: [UNRECOGNIZED DRUG - OTHER] GT SCH (05:05)
[2022-08-24] MEDS: CALCIUM CARB/VITAMIN D 600-400 MG TABLET GT SCH ×2 (05:05→17:10)
[2022-08-24] MEDS: CARBIDOPA/LEVODOPA 25-100MG TABLET GT SCH ×3 (05:05→21:24)
[2022-08-24] MEDS: LEVOTHYROXINE SODIUM 125 MCG TABLET PO SCH (05:05)
[2022-08-24] MEDS: FAMOTIDINE 20 MG TABLET GT SCH (05:05)
[2022-08-24 07:48] VITALS: TEMP 98.2
[2022-08-24] MEDS: [UNRECOGNIZED DRUG - OTHER] GT SCH ×2 (09:55→21:24)
[2022-08-24] MEDS: COD LIVER OIL/ZINC OXIDE OINT 113 GM TUBE TP SCH ×2 (09:56→21:21)
[2022-08-24] MEDS: VITAMINS A AND D OINT 42 GM TUBE TP SCH (09:56)
[2022-08-24] MEDS: [UNRECOGNIZED DRUG - OTHER] GT SCH (09:56)
[2022-08-24 10:00] VITALS: O2SAT 98
[2022-08-24] MEDS: HYDROGEN PEROXIDE 3% 118 ML BOTTLE TP SCH ×2 (10:00→21:31)
[2022-08-24] MEDS: OSMOLITE 1.2 CAL 1,000 ML LIQUID GT PRN (12:40)
[2022-08-24 20:00] VITALS: TEMP 98
[2022-08-24] MEDS: PROTEIN SUPPLEMENT (PROSTAT) 30 ML LIQUID GT SCH (21:21)
[2022-08-24] MEDS: MINERAL OIL/PETROLAT OPHT OINT 3.5 GM TUBE EACHEYE SCH (21:24)
[2022-08-24 21:32] VITALS: O2SAT 99
[2022-08-25] MEDS: POLYVINYL ALCOHOL OPHT DROPS 15 ML BOTTLE EACHEYE SCH ×6 (03:30→23:30)
[2022-08-25] MEDS: CARBIDOPA/LEVODOPA 25-100MG TABLET GT SCH ×3 (05:37→21:15)
[2022-08-25] MEDS: [UNRECOGNIZED DRUG - OTHER] GT SCH (05:37)
[2022-08-25] MEDS: FAMOTIDINE 20 MG TABLET GT SCH (05:38)
[2022-08-25] MEDS: LEVOTHYROXINE SODIUM 125 MCG TABLET PO SCH (05:38)
[2022-08-25] MEDS: CALCIUM CARB/VITAMIN D 600-400 MG TABLET GT SCH ×2 (05:38→17:48)
[2022-08-25] MEDS: HYDROGEN PEROXIDE 3% 118 ML BOTTLE TP SCH ×2 (07:23→21:00)
[2022-08-25 07:36] VITALS: TEMP 98.8
[2022-08-25] MEDS: VITAMINS A AND D OINT 42 GM TUBE TP SCH (09:16)
[2022-08-25] MEDS: [UNRECOGNIZED DRUG - OTHER] GT SCH (09:16)
[2022-08-25] MEDS: [UNRECOGNIZED DRUG - OTHER] GT SCH ×2 (09:16→21:15)
[2022-08-25] MEDS: COD LIVER OIL/ZINC OXIDE OINT 113 GM TUBE TP SCH ×2 (09:16→21:15)
[2022-08-25 10:30] VITALS: O2SAT 98
[2022-08-25] MEDS: OSMOLITE 1.2 CAL 1,000 ML LIQUID GT PRN (13:26)
[2022-08-25 20:34] VITALS: TEMP 98.4
[2022-08-25] MEDS: MINERAL OIL/PETROLAT OPHT OINT 3.5 GM TUBE EACHEYE SCH (21:13)
[2022-08-25] MEDS: PROTEIN SUPPLEMENT (PROSTAT) 30 ML LIQUID GT SCH (21:15)
[2022-08-25 21:40] VITALS: O2SAT 99
[2022-08-26] MEDS: POLYVINYL ALCOHOL OPHT DROPS 15 ML BOTTLE EACHEYE SCH ×6 (03:55→23:30)
[2022-08-26] MEDS: CALCIUM CARB/VITAMIN D 600-400 MG TABLET GT SCH ×2 (05:16→17:26)
[2022-08-26] MEDS: [UNRECOGNIZED DRUG - OTHER] GT SCH (05:16)
[2022-08-26] MEDS: CARBIDOPA/LEVODOPA 25-100MG TABLET GT SCH ×3 (05:16→21:21)
[2022-08-26] MEDS: LEVOTHYROXINE SODIUM 125 MCG TABLET PO SCH (05:16)
[2022-08-26] MEDS: FAMOTIDINE 20 MG TABLET GT SCH (05:46)
[2022-08-26 07:30] VITALS: TEMP 98.2
[2022-08-26] MEDS: HYDROGEN PEROXIDE 3% 118 ML BOTTLE TP SCH ×2 (08:17→19:05)
[2022-08-26] MEDS: [UNRECOGNIZED DRUG - OTHER] GT SCH ×2 (08:37→21:20)
[2022-08-26] MEDS: [UNRECOGNIZED DRUG - OTHER] GT SCH (08:38)
[2022-08-26] MEDS: VITAMINS A AND D OINT 42 GM TUBE TP SCH (08:39)
[2022-08-26] MEDS: COD LIVER OIL/ZINC OXIDE OINT 113 GM TUBE TP SCH ×2 (08:39→21:21)
[2022-08-26] MEDS: diphenhydrAMINE 25 MG/10 ML UDC GT PRN ×2 (08:40→17:27)
[2022-08-26] MEDS: OSMOLITE 1.2 CAL 1,000 ML LIQUID GT PRN (12:47)
[2022-08-26 13:19] VITALS: O2SAT 98
[2022-08-26 19:40] VITALS: O2SAT 99
[2022-08-26] MEDS: MINERAL OIL/PETROLAT OPHT OINT 3.5 GM TUBE EACHEYE SCH (21:20)
[2022-08-26] MEDS: PROTEIN SUPPLEMENT (PROSTAT) 30 ML LIQUID GT SCH (21:20)
[2022-08-26 21:46] VITALS: TEMP 97.9
[2022-08-27] MEDS: POLYVINYL ALCOHOL OPHT DROPS 15 ML BOTTLE EACHEYE SCH ×6 (03:30→23:30)
[2022-08-27] MEDS: FAMOTIDINE 20 MG TABLET GT SCH (05:52)
[2022-08-27] MEDS: CARBIDOPA/LEVODOPA 25-100MG TABLET GT SCH ×3 (05:52→21:48)
[2022-08-27] MEDS: [UNRECOGNIZED DRUG - OTHER] GT SCH (05:52)
[2022-08-27] MEDS: CALCIUM CARB/VITAMIN D 600-400 MG TABLET GT SCH ×2 (05:52→17:15)
[2022-08-27] MEDS: LEVOTHYROXINE SODIUM 125 MCG TABLET PO SCH (05:52)
[2022-08-27 07:28] VITALS: TEMP 98.3
[2022-08-27] MEDS: HYDROGEN PEROXIDE 3% 118 ML BOTTLE TP SCH ×2 (09:00→19:26)
[2022-08-27] MEDS: [UNRECOGNIZED DRUG - OTHER] GT SCH (09:12)
[2022-08-27] MEDS: COD LIVER OIL/ZINC OXIDE OINT 113 GM TUBE TP SCH ×2 (09:12→21:48)
[2022-08-27] MEDS: VITAMINS A AND D OINT 42 GM TUBE TP SCH (09:12)
[2022-08-27] MEDS: [UNRECOGNIZED DRUG - OTHER] GT SCH ×2 (09:12→21:48)
[2022-08-27 10:20] VITALS: O2SAT 98
[2022-08-27 15:53] VITALS: O2SAT 98
[2022-08-27 19:25] VITALS: O2SAT 99
[2022-08-27 20:00] VITALS: TEMP 98
[2022-08-27] MEDS: MINERAL OIL/PETROLAT OPHT OINT 3.5 GM TUBE EACHEYE SCH (21:47)
[2022-08-27] MEDS: PROTEIN SUPPLEMENT (PROSTAT) 30 ML LIQUID GT SCH (21:48)
[2022-08-28] MEDS: POLYVINYL ALCOHOL OPHT DROPS 15 ML BOTTLE EACHEYE SCH ×6 (03:30→23:30)
[2022-08-28] MEDS: CARBIDOPA/LEVODOPA 25-100MG TABLET GT SCH ×3 (06:05→21:16)
[2022-08-28] MEDS: LEVOTHYROXINE SODIUM 125 MCG TABLET PO SCH (06:05)
[2022-08-28] MEDS: ALENDRONATE SODIUM 70 MG GT SCH (06:05)
[2022-08-28] MEDS: [UNRECOGNIZED DRUG - OTHER] GT SCH (06:05)
[2022-08-28] MEDS: CALCIUM CARB/VITAMIN D 600-400 MG TABLET GT SCH ×2 (06:05→18:16)
[2022-08-28] MEDS: FAMOTIDINE 20 MG TABLET GT SCH (06:05)
[2022-08-28 08:00] VITALS: TEMP 98.4
[2022-08-28] MEDS: HYDROGEN PEROXIDE 3% 118 ML BOTTLE TP SCH ×2 (08:27→19:13)
[2022-08-28] MEDS: [UNRECOGNIZED DRUG - OTHER] GT SCH ×2 (09:26→21:15)
[2022-08-28] MEDS: [UNRECOGNIZED DRUG - OTHER] GT SCH (09:27)
[2022-08-28] MEDS: VITAMINS A AND D OINT 42 GM TUBE TP SCH (09:28)
[2022-08-28] MEDS: COD LIVER OIL/ZINC OXIDE OINT 113 GM TUBE TP SCH ×2 (09:28→21:16)
[2022-08-28 13:16] VITALS: O2SAT 98
[2022-08-28] MEDS: OSMOLITE 1.2 CAL 1,000 ML LIQUID GT PRN (19:00)
[2022-08-28 20:03] VITALS: TEMP 97.9
[2022-08-28] MEDS: MINERAL OIL/PETROLAT OPHT OINT 3.5 GM TUBE EACHEYE SCH (21:15)
[2022-08-28] MEDS: PROTEIN SUPPLEMENT (PROSTAT) 30 ML LIQUID GT SCH (21:15)
[2022-08-28 21:47] VITALS: O2SAT 99
[2022-08-29] MEDS: POLYVINYL ALCOHOL OPHT DROPS 15 ML BOTTLE EACHEYE SCH ×6 (03:30→23:30)
[2022-08-29] MEDS: LEVOTHYROXINE SODIUM 125 MCG TABLET PO SCH (05:23)
[2022-08-29] MEDS: [UNRECOGNIZED DRUG - OTHER] GT SCH (05:23)
[2022-08-29] MEDS: CALCIUM CARB/VITAMIN D 600-400 MG TABLET GT SCH ×2 (05:23→18:19)
[2022-08-29] MEDS: CARBIDOPA/LEVODOPA 25-100MG TABLET GT SCH ×3 (05:23→21:38)
[2022-08-29] MEDS: FAMOTIDINE 20 MG TABLET GT SCH (05:47)
[2022-08-29 08:00] VITALS: TEMP 98.5
[2022-08-29 08:19] VITALS: O2SAT 98
[2022-08-29] MEDS: HYDROGEN PEROXIDE 3% 118 ML BOTTLE TP SCH ×2 (08:19→19:18)
[2022-08-29] MEDS: [UNRECOGNIZED DRUG - OTHER] GT SCH ×2 (09:34→21:37)
[2022-08-29] MEDS: VITAMINS A AND D OINT 42 GM TUBE TP SCH (09:34)
[2022-08-29] MEDS: [UNRECOGNIZED DRUG - OTHER] GT SCH (09:34)
[2022-08-29] MEDS: COD LIVER OIL/ZINC OXIDE OINT 113 GM TUBE TP SCH ×2 (09:34→21:38)
[2022-08-29 14:20] VITALS: O2SAT 98
[2022-08-29] MEDS: OSMOLITE 1.2 CAL 1,000 ML LIQUID GT PRN (18:20)
[2022-08-29 20:03] VITALS: TEMP 98.7
[2022-08-29 21:00] VITALS: O2SAT 99
[2022-08-29] MEDS: MINERAL OIL/PETROLAT OPHT OINT 3.5 GM TUBE EACHEYE SCH (21:37)
[2022-08-29] MEDS: PROTEIN SUPPLEMENT (PROSTAT) 30 ML LIQUID GT SCH (21:38)
[2022-08-30] MEDS: POLYVINYL ALCOHOL OPHT DROPS 15 ML BOTTLE EACHEYE SCH ×6 (03:30→23:30)
[2022-08-30] MEDS: LEVOTHYROXINE SODIUM 125 MCG TABLET PO SCH (05:26)
[2022-08-30] MEDS: [UNRECOGNIZED DRUG - OTHER] GT SCH (05:26)
[2022-08-30] MEDS: CALCIUM CARB/VITAMIN D 600-400 MG TABLET GT SCH ×2 (05:26→17:33)
[2022-08-30] MEDS: CARBIDOPA/LEVODOPA 25-100MG TABLET GT SCH ×3 (05:26→21:02)
[2022-08-30] MEDS: FAMOTIDINE 20 MG TABLET GT SCH (06:04)
[2022-08-30 07:23] VITALS: TEMP 98.7
[2022-08-30] MEDS: HYDROGEN PEROXIDE 3% 118 ML BOTTLE TP SCH ×2 (07:33→19:03)
[2022-08-30] MEDS: [UNRECOGNIZED DRUG - OTHER] GT SCH (09:28)
[2022-08-30] MEDS: COD LIVER OIL/ZINC OXIDE OINT 113 GM TUBE TP SCH ×2 (09:28→21:02)
[2022-08-30] MEDS: VITAMINS A AND D OINT 42 GM TUBE TP SCH (09:28)
[2022-08-30] MEDS: [UNRECOGNIZED DRUG - OTHER] GT SCH ×2 (09:28→21:02)
[2022-08-30 10:40] VITALS: O2SAT 98
[2022-08-30 20:01] VITALS: TEMP 98.5
[2022-08-30 20:20] VITALS: O2SAT 99
[2022-08-30] MEDS: MINERAL OIL/PETROLAT OPHT OINT 3.5 GM TUBE EACHEYE SCH (20:59)
[2022-08-30] MEDS: PROTEIN SUPPLEMENT (PROSTAT) 30 ML LIQUID GT SCH (21:02)
[2022-08-30] MEDS: OSMOLITE 1.2 CAL 1,000 ML LIQUID GT PRN (21:12)
[2022-08-31] MEDS: POLYVINYL ALCOHOL OPHT DROPS 15 ML BOTTLE EACHEYE SCH ×6 (03:30→23:30)
[2022-08-31] MEDS: CALCIUM CARB/VITAMIN D 600-400 MG TABLET GT SCH ×2 (06:09→17:04)
[2022-08-31] MEDS: FAMOTIDINE 20 MG TABLET GT SCH (06:09)
[2022-08-31] MEDS: CARBIDOPA/LEVODOPA 25-100MG TABLET GT SCH ×3 (06:09→21:10)
[2022-08-31] MEDS: LEVOTHYROXINE SODIUM 125 MCG TABLET PO SCH (06:09)
[2022-08-31] MEDS: [UNRECOGNIZED DRUG - OTHER] GT SCH (06:09)
[2022-08-31] MEDS: HYDROGEN PEROXIDE 3% 118 ML BOTTLE TP SCH ×2 (07:30→19:15)
[2022-08-31] MEDS: VITAMINS A AND D OINT 42 GM TUBE TP SCH (09:36)
[2022-08-31] MEDS: [UNRECOGNIZED DRUG - OTHER] GT SCH (09:36)
[2022-08-31] MEDS: [UNRECOGNIZED DRUG - OTHER] GT SCH ×2 (09:36→21:07)
[2022-08-31] MEDS: COD LIVER OIL/ZINC OXIDE OINT 113 GM TUBE TP SCH ×2 (09:36→21:10)
[2022-08-31 10:45] VITALS: O2SAT 97
[2022-08-31 12:08] VITALS: TEMP 98.7
[2022-08-31] MEDS: OSMOLITE 1.2 CAL 1,000 ML LIQUID GT PRN (19:02)
[2022-08-31 20:00] VITALS: TEMP 98.2
[2022-08-31 20:50] VITALS: O2SAT 99
[2022-08-31] MEDS: MINERAL OIL/PETROLAT OPHT OINT 3.5 GM TUBE EACHEYE SCH (21:07)
[2022-08-31] MEDS: PROTEIN SUPPLEMENT (PROSTAT) 30 ML LIQUID GT SCH (21:10)
[2022-08-31] MEDS: diphenhydrAMINE 25 MG/10 ML UDC GT PRN (21:13)
[2022-09-01] MEDS: POLYVINYL ALCOHOL OPHT DROPS 15 ML BOTTLE EACHEYE SCH ×6 (03:30→23:30)
[2022-09-01] MEDS: CARBIDOPA/LEVODOPA 25-100MG TABLET GT SCH ×3 (05:05→22:30)
[2022-09-01] MEDS: CALCIUM CARB/VITAMIN D 600-400 MG TABLET GT SCH ×2 (05:05→17:32)
[2022-09-01] MEDS: FAMOTIDINE 20 MG TABLET GT SCH (05:05)
[2022-09-01] MEDS: [UNRECOGNIZED DRUG - OTHER] GT SCH (05:05)
[2022-09-01] MEDS: LEVOTHYROXINE SODIUM 125 MCG TABLET PO SCH (05:05)
[2022-09-01] MEDS: diphenhydrAMINE 25 MG/10 ML UDC GT PRN (06:16)
[2022-09-01] MEDS: LOPERAMIDE HCL 2 MG/15 ML GT PRN (06:44)
[2022-09-01 07:56] VITALS: TEMP 98.1
[2022-09-01] MEDS: [UNRECOGNIZED DRUG - OTHER] GT SCH ×2 (08:40→21:56)
[2022-09-01] MEDS: VITAMINS A AND D OINT 42 GM TUBE TP SCH (08:40)
[2022-09-01] MEDS: COD LIVER OIL/ZINC OXIDE OINT 113 GM TUBE TP SCH ×3 (08:40→21:57)
[2022-09-01] MEDS: [UNRECOGNIZED DRUG - OTHER] GT SCH (08:40)
[2022-09-01 09:54] VITALS: O2SAT 98
[2022-09-01] MEDS: HYDROGEN PEROXIDE 3% 118 ML BOTTLE TP SCH ×2 (09:54→19:15)
[2022-09-01] MEDS: OSMOLITE 1.2 CAL 1,000 ML LIQUID GT PRN (17:33)
[2022-09-01 19:48] VITALS: O2SAT 99
[2022-09-01 20:00] VITALS: TEMP 98.4
[2022-09-01] MEDS: PROTEIN SUPPLEMENT (PROSTAT) 30 ML LIQUID GT SCH (21:56)
[2022-09-01] MEDS: MINERAL OIL/PETROLAT OPHT OINT 3.5 GM TUBE EACHEYE SCH (21:56)
[2022-09-01] MEDS: NYSTATIN CREAM 30 GM TUBE TP SCH (21:57)
[2022-09-02] MEDS: POLYVINYL ALCOHOL OPHT DROPS 15 ML BOTTLE EACHEYE SCH ×6 (03:45→23:06)
[2022-09-02] MEDS: LEVOTHYROXINE SODIUM 125 MCG TABLET PO SCH (05:09)
[2022-09-02] MEDS: CALCIUM CARB/VITAMIN D 600-400 MG TABLET GT SCH ×2 (05:09→17:47)
[2022-09-02] MEDS: CARBIDOPA/LEVODOPA 25-100MG TABLET GT SCH ×3 (05:09→22:00)
[2022-09-02] MEDS: [UNRECOGNIZED DRUG - OTHER] GT SCH (05:09)
[2022-09-02] MEDS: FAMOTIDINE 20 MG TABLET GT SCH (05:37)
[2022-09-02 07:22] VITALS: TEMP 98.6
[2022-09-02] MEDS: HYDROGEN PEROXIDE 3% 118 ML BOTTLE TP SCH ×2 (08:07→20:33)
[2022-09-02] MEDS: NYSTATIN CREAM 30 GM TUBE TP SCH ×2 (08:14→20:33)
[2022-09-02] MEDS: COD LIVER OIL/ZINC OXIDE OINT 113 GM TUBE TP SCH ×4 (08:14→20:32)
[2022-09-02] MEDS: [UNRECOGNIZED DRUG - OTHER] GT SCH ×2 (08:14→20:32)
[2022-09-02] MEDS: [UNRECOGNIZED DRUG - OTHER] GT SCH (08:14)
[2022-09-02] MEDS: VITAMINS A AND D OINT 42 GM TUBE TP SCH (08:14)
[2022-09-02 16:03] VITALS: O2SAT 98
[2022-09-02] MEDS: OSMOLITE 1.2 CAL 1,000 ML LIQUID GT PRN (17:47)
[2022-09-02 20:00] VITALS: O2SAT 99
[2022-09-02 20:07] VITALS: TEMP 98.3
[2022-09-02] MEDS: PROTEIN SUPPLEMENT (PROSTAT) 30 ML LIQUID GT SCH (20:32)
[2022-09-02] MEDS: MINERAL OIL/PETROLAT OPHT OINT 3.5 GM TUBE EACHEYE SCH (20:32)
[2022-09-03] MEDS: POLYVINYL ALCOHOL OPHT DROPS 15 ML BOTTLE EACHEYE SCH ×6 (04:29→23:30)
[2022-09-03] MEDS: CARBIDOPA/LEVODOPA 25-100MG TABLET GT SCH ×3 (05:11→22:41)
[2022-09-03] MEDS: [UNRECOGNIZED DRUG - OTHER] GT SCH (05:11)
[2022-09-03] MEDS: LEVOTHYROXINE SODIUM 125 MCG TABLET PO SCH (05:11)
[2022-09-03] MEDS: CALCIUM CARB/VITAMIN D 600-400 MG TABLET GT SCH ×2 (05:11→17:13)
[2022-09-03] MEDS: FAMOTIDINE 20 MG TABLET GT SCH (05:41)
[2022-09-03 07:28] VITALS: TEMP 98.7
[2022-09-03] MEDS: HYDROGEN PEROXIDE 3% 118 ML BOTTLE TP SCH ×2 (08:08→19:05)
[2022-09-03] MEDS: [UNRECOGNIZED DRUG - OTHER] GT SCH (08:15)
[2022-09-03] MEDS: [UNRECOGNIZED DRUG - OTHER] GT SCH ×2 (08:15→20:38)
[2022-09-03] MEDS: COD LIVER OIL/ZINC OXIDE OINT 113 GM TUBE TP SCH ×4 (08:15→20:39)
[2022-09-03] MEDS: VITAMINS A AND D OINT 42 GM TUBE TP SCH (08:16)
[2022-09-03] MEDS: NYSTATIN CREAM 30 GM TUBE TP SCH ×2 (08:16→20:39)
[2022-09-03 09:45] VITALS: O2SAT 98
[2022-09-03] MEDS: LOPERAMIDE HCL 2 MG/15 ML GT PRN (09:48)
[2022-09-03 20:00] VITALS: TEMP 98
[2022-09-03] MEDS: MINERAL OIL/PETROLAT OPHT OINT 3.5 GM TUBE EACHEYE SCH (20:38)
[2022-09-03] MEDS: PROTEIN SUPPLEMENT (PROSTAT) 30 ML LIQUID GT SCH (20:39)
[2022-09-03 20:40] VITALS: O2SAT 99
[2022-09-04] MEDS: POLYVINYL ALCOHOL OPHT DROPS 15 ML BOTTLE EACHEYE SCH ×6 (03:30→23:52)
[2022-09-04] MEDS: [UNRECOGNIZED DRUG - OTHER] GT SCH (06:51)
[2022-09-04] MEDS: ALENDRONATE SODIUM 70 MG GT SCH (06:51)
[2022-09-04] MEDS: CARBIDOPA/LEVODOPA 25-100MG TABLET GT SCH ×3 (06:51→21:35)
[2022-09-04] MEDS: CALCIUM CARB/VITAMIN D 600-400 MG TABLET GT SCH ×2 (06:51→18:30)
[2022-09-04] MEDS: LEVOTHYROXINE SODIUM 125 MCG TABLET PO SCH (06:51)
[2022-09-04] MEDS: FAMOTIDINE 20 MG TABLET GT SCH (06:51)
[2022-09-04 07:35] VITALS: TEMP 98.6
[2022-09-04] MEDS: HYDROGEN PEROXIDE 3% 118 ML BOTTLE TP SCH ×2 (08:08→19:06)
[2022-09-04] MEDS: VITAMINS A AND D OINT 42 GM TUBE TP SCH (09:00)
[2022-09-04] MEDS: NYSTATIN CREAM 30 GM TUBE TP SCH ×2 (09:00→20:29)
[2022-09-04] MEDS: [UNRECOGNIZED DRUG - OTHER] GT SCH ×2 (09:35→20:28)
[2022-09-04] MEDS: COD LIVER OIL/ZINC OXIDE OINT 113 GM TUBE TP SCH ×4 (09:35→20:28)
[2022-09-04] MEDS: [UNRECOGNIZED DRUG - OTHER] GT SCH (09:35)
[2022-09-04 10:00] VITALS: O2SAT 99
[2022-09-04] MEDS: OSMOLITE 1.2 CAL 1,000 ML LIQUID GT PRN (16:38)
[2022-09-04 19:00] VITALS: O2SAT 99
[2022-09-04 19:25] VITALS: TEMP 98
[2022-09-04 20:00] VITALS: TEMP 97.9
[2022-09-04] MEDS: MINERAL OIL/PETROLAT OPHT OINT 3.5 GM TUBE EACHEYE SCH (20:27)
[2022-09-04] MEDS: PROTEIN SUPPLEMENT (PROSTAT) 30 ML LIQUID GT SCH (20:28)
[2022-09-05] MEDS: POLYVINYL ALCOHOL OPHT DROPS 15 ML BOTTLE EACHEYE SCH ×6 (03:40→23:30)
[2022-09-05] MEDS: CARBIDOPA/LEVODOPA 25-100MG TABLET GT SCH ×3 (05:33→21:05)
[2022-09-05] MEDS: FAMOTIDINE 20 MG TABLET GT SCH (05:33)
[2022-09-05] MEDS: CALCIUM CARB/VITAMIN D 600-400 MG TABLET GT SCH ×2 (05:33→18:05)
[2022-09-05] MEDS: LEVOTHYROXINE SODIUM 125 MCG TABLET PO SCH (05:33)
[2022-09-05] MEDS: [UNRECOGNIZED DRUG - OTHER] GT SCH (05:33)
[2022-09-05 07:55] VITALS: TEMP 98.4
[2022-09-05 08:02] VITALS: O2SAT 98
[2022-09-05] MEDS: HYDROGEN PEROXIDE 3% 118 ML BOTTLE TP SCH ×2 (08:02→21:43)
[2022-09-05] MEDS: VITAMINS A AND D OINT 42 GM TUBE TP SCH (09:00)
[2022-09-05] MEDS: [UNRECOGNIZED DRUG - OTHER] GT SCH ×2 (09:28→21:05)
[2022-09-05] MEDS: COD LIVER OIL/ZINC OXIDE OINT 113 GM TUBE TP SCH ×4 (09:28→21:05)
[2022-09-05] MEDS: [UNRECOGNIZED DRUG - OTHER] GT SCH (09:28)
[2022-09-05] MEDS: NYSTATIN CREAM 30 GM TUBE TP SCH ×2 (09:30→21:05)
[2022-09-05] MEDS: OSMOLITE 1.2 CAL 1,000 ML LIQUID GT PRN (12:39)
[2022-09-05 19:50] VITALS: O2SAT 99
[2022-09-05 19:57] VITALS: TEMP 97.9
[2022-09-05] MEDS: MINERAL OIL/PETROLAT OPHT OINT 3.5 GM TUBE EACHEYE SCH (21:05)
[2022-09-05] MEDS: PROTEIN SUPPLEMENT (PROSTAT) 30 ML LIQUID GT SCH (21:05)
[2022-09-06] MEDS: POLYVINYL ALCOHOL OPHT DROPS 15 ML BOTTLE EACHEYE SCH ×6 (03:30→23:30)
[2022-09-06] MEDS: CALCIUM CARB/VITAMIN D 600-400 MG TABLET GT SCH ×2 (05:21→17:02)
[2022-09-06] MEDS: CARBIDOPA/LEVODOPA 25-100MG TABLET GT SCH ×3 (05:21→21:45)
[2022-09-06] MEDS: LEVOTHYROXINE SODIUM 125 MCG TABLET PO SCH (05:21)
[2022-09-06] MEDS: [UNRECOGNIZED DRUG - OTHER] GT SCH (05:21)
[2022-09-06] MEDS: FAMOTIDINE 20 MG TABLET GT SCH (05:48)
[2022-09-06] MEDS: HYDROGEN PEROXIDE 3% 118 ML BOTTLE TP SCH ×2 (07:38→19:41)
[2022-09-06 07:48] VITALS: TEMP 97.8
[2022-09-06] MEDS: COD LIVER OIL/ZINC OXIDE OINT 113 GM TUBE TP SCH ×4 (08:30→21:45)
[2022-09-06] MEDS: [UNRECOGNIZED DRUG - OTHER] GT SCH (08:30)
[2022-09-06] MEDS: [UNRECOGNIZED DRUG - OTHER] GT SCH ×2 (08:30→21:45)
[2022-09-06] MEDS: NYSTATIN CREAM 30 GM TUBE TP SCH ×2 (08:31→21:45)
[2022-09-06] MEDS: VITAMINS A AND D OINT 42 GM TUBE TP SCH (08:31)
[2022-09-06 10:30] VITALS: O2SAT 98
[2022-09-06] MEDS: OSMOLITE 1.2 CAL 1,000 ML LIQUID GT PRN (14:13)
[2022-09-06 20:00] VITALS: TEMP 98.4
[2022-09-06] MEDS: PROTEIN SUPPLEMENT (PROSTAT) 30 ML LIQUID GT SCH (21:45)
[2022-09-06] MEDS: MINERAL OIL/PETROLAT OPHT OINT 3.5 GM TUBE EACHEYE SCH (21:45)
[2022-09-06 22:28] VITALS: O2SAT 99
[2022-09-07] MEDS: POLYVINYL ALCOHOL OPHT DROPS 15 ML BOTTLE EACHEYE SCH ×6 (03:30→23:30)
[2022-09-07] MEDS: CARBIDOPA/LEVODOPA 25-100MG TABLET GT SCH ×3 (05:06→21:44)
[2022-09-07] MEDS: LEVOTHYROXINE SODIUM 125 MCG TABLET PO SCH (05:06)
[2022-09-07] MEDS: CALCIUM CARB/VITAMIN D 600-400 MG TABLET GT SCH ×2 (05:06→17:07)
[2022-09-07] MEDS: [UNRECOGNIZED DRUG - OTHER] GT SCH (05:06)
[2022-09-07] MEDS: FAMOTIDINE 20 MG TABLET GT SCH (05:53)
[2022-09-07 07:41] VITALS: TEMP 97.4
[2022-09-07] MEDS: HYDROGEN PEROXIDE 3% 118 ML BOTTLE TP SCH ×2 (08:14→19:18)
[2022-09-07] MEDS: [UNRECOGNIZED DRUG - OTHER] GT SCH ×2 (08:56→21:44)
[2022-09-07] MEDS: [UNRECOGNIZED DRUG - OTHER] GT SCH (08:56)
[2022-09-07] MEDS: VITAMINS A AND D OINT 42 GM TUBE TP SCH (08:57)
[2022-09-07] MEDS: NYSTATIN CREAM 30 GM TUBE TP SCH ×2 (08:57→21:44)
[2022-09-07] MEDS: COD LIVER OIL/ZINC OXIDE OINT 113 GM TUBE TP SCH ×4 (08:57→21:44)
[2022-09-07] MEDS: diphenhydrAMINE 25 MG/10 ML UDC GT PRN (08:58)
[2022-09-07 12:39] VITALS: O2SAT 98
[2022-09-07] MEDS: OSMOLITE 1.2 CAL 1,000 ML LIQUID GT PRN (13:20)
[2022-09-07 20:00] VITALS: TEMP 98
[2022-09-07] MEDS: PROTEIN SUPPLEMENT (PROSTAT) 30 ML LIQUID GT SCH (21:44)
[2022-09-07] MEDS: MINERAL OIL/PETROLAT OPHT OINT 3.5 GM TUBE EACHEYE SCH (21:44)
[2022-09-07 22:15] VITALS: O2SAT 99
[2022-09-08] MEDS: POLYVINYL ALCOHOL OPHT DROPS 15 ML BOTTLE EACHEYE SCH ×6 (04:20→23:30)
[2022-09-08] MEDS: CALCIUM CARB/VITAMIN D 600-400 MG TABLET GT SCH ×2 (05:32→17:10)
[2022-09-08] MEDS: CARBIDOPA/LEVODOPA 25-100MG TABLET GT SCH ×3 (05:33→22:01)
[2022-09-08] MEDS: LEVOTHYROXINE SODIUM 125 MCG TABLET PO SCH (05:33)
[2022-09-08] MEDS: FAMOTIDINE 20 MG TABLET GT SCH (05:33)
[2022-09-08] MEDS: [UNRECOGNIZED DRUG - OTHER] GT SCH (05:33)
[2022-09-08 07:28] VITALS: TEMP 98.6
[2022-09-08] MEDS: HYDROGEN PEROXIDE 3% 118 ML BOTTLE TP SCH ×2 (08:33→20:00)
[2022-09-08] MEDS: [UNRECOGNIZED DRUG - OTHER] GT SCH (08:34)
[2022-09-08] MEDS: COD LIVER OIL/ZINC OXIDE OINT 113 GM TUBE TP SCH ×4 (08:34→20:28)
[2022-09-08] MEDS: [UNRECOGNIZED DRUG - OTHER] GT SCH ×2 (08:34→20:28)
[2022-09-08] MEDS: NYSTATIN CREAM 30 GM TUBE TP SCH ×2 (08:35→20:28)
[2022-09-08] MEDS: VITAMINS A AND D OINT 42 GM TUBE TP SCH (08:36)
[2022-09-08] MEDS: LOPERAMIDE HCL 2 MG/15 ML GT PRN (10:13)
[2022-09-08 12:27] VITALS: O2SAT 98
[2022-09-08] MEDS: OSMOLITE 1.2 CAL 1,000 ML LIQUID GT PRN (12:38)
[2022-09-08 19:45] VITALS: TEMP 98.4
[2022-09-08] MEDS: PROTEIN SUPPLEMENT (PROSTAT) 30 ML LIQUID GT SCH (20:28)
[2022-09-08] MEDS: MINERAL OIL/PETROLAT OPHT OINT 3.5 GM TUBE EACHEYE SCH (20:28)
[2022-09-08 21:15] VITALS: O2SAT 99
[2022-09-09] MEDS: POLYVINYL ALCOHOL OPHT DROPS 15 ML BOTTLE EACHEYE SCH ×6 (03:30→23:30)
[2022-09-09] MEDS: diphenhydrAMINE 25 MG/10 ML UDC GT PRN (04:32)
[2022-09-09] MEDS: CALCIUM CARB/VITAMIN D 600-400 MG TABLET GT SCH ×2 (06:10→18:20)
[2022-09-09] MEDS: FAMOTIDINE 20 MG TABLET GT SCH (06:10)
[2022-09-09] MEDS: CARBIDOPA/LEVODOPA 25-100MG TABLET GT SCH ×3 (06:10→21:45)
[2022-09-09] MEDS: LEVOTHYROXINE SODIUM 125 MCG TABLET PO SCH (06:10)
[2022-09-09] MEDS: [UNRECOGNIZED DRUG - OTHER] GT SCH (06:10)
[2022-09-09] MEDS: HYDROGEN PEROXIDE 3% 118 ML BOTTLE TP SCH ×2 (07:21→20:50)
[2022-09-09 07:23] VITALS: TEMP 98.6
[2022-09-09] MEDS: [UNRECOGNIZED DRUG - OTHER] GT SCH (08:00)
[2022-09-09] MEDS: VITAMINS A AND D OINT 42 GM TUBE TP SCH (08:00)
[2022-09-09] MEDS: COD LIVER OIL/ZINC OXIDE OINT 113 GM TUBE TP SCH ×4 (08:00→20:13)
[2022-09-09] MEDS: NYSTATIN CREAM 30 GM TUBE TP SCH ×2 (08:00→20:13)
[2022-09-09] MEDS: [UNRECOGNIZED DRUG - OTHER] GT SCH ×2 (08:00→20:12)
[2022-09-09 10:50] VITALS: O2SAT 97
[2022-09-09] MEDS: LOPERAMIDE HCL 2 MG/15 ML GT PRN (12:15)
[2022-09-09] MEDS: OSMOLITE 1.2 CAL 1,000 ML LIQUID GT PRN (12:15)
[2022-09-09 19:57] VITALS: O2SAT 99
[2022-09-09] MEDS: MINERAL OIL/PETROLAT OPHT OINT 3.5 GM TUBE EACHEYE SCH (20:12)
[2022-09-09] MEDS: PROTEIN SUPPLEMENT (PROSTAT) 30 ML LIQUID GT SCH (20:12)
[2022-09-09 20:33] VITALS: TEMP 98.2
[2022-09-10] MEDS: POLYVINYL ALCOHOL OPHT DROPS 15 ML BOTTLE EACHEYE SCH ×6 (03:55→23:30)
[2022-09-10] MEDS: CARBIDOPA/LEVODOPA 25-100MG TABLET GT SCH ×3 (06:33→21:20)
[2022-09-10] MEDS: FAMOTIDINE 20 MG TABLET GT SCH (06:33)
[2022-09-10] MEDS: CALCIUM CARB/VITAMIN D 600-400 MG TABLET GT SCH ×2 (06:33→17:23)
[2022-09-10] MEDS: [UNRECOGNIZED DRUG - OTHER] GT SCH (06:33)
[2022-09-10] MEDS: LEVOTHYROXINE SODIUM 125 MCG TABLET PO SCH (06:33)
[2022-09-10 07:24] VITALS: TEMP 98.1
[2022-09-10] MEDS: LOPERAMIDE HCL 2 MG/15 ML GT PRN (07:58)
[2022-09-10] MEDS: COD LIVER OIL/ZINC OXIDE OINT 113 GM TUBE TP SCH ×4 (08:00→21:19)
[2022-09-10] MEDS: [UNRECOGNIZED DRUG - OTHER] GT SCH ×2 (08:00→21:19)
[2022-09-10] MEDS: VITAMINS A AND D OINT 42 GM TUBE TP SCH (08:00)
[2022-09-10] MEDS: NYSTATIN CREAM 30 GM TUBE TP SCH ×2 (08:00→21:20)
[2022-09-10] MEDS: [UNRECOGNIZED DRUG - OTHER] GT SCH (08:00)
[2022-09-10 09:48] VITALS: O2SAT 98
[2022-09-10] MEDS: HYDROGEN PEROXIDE 3% 118 ML BOTTLE TP SCH ×2 (09:48→19:05)
[2022-09-10] MEDS: OSMOLITE 1.2 CAL 1,000 ML LIQUID GT PRN (12:37)
[2022-09-10 20:18] VITALS: TEMP 97.6
[2022-09-10 20:32] VITALS: O2SAT 99
[2022-09-10] MEDS: PROTEIN SUPPLEMENT (PROSTAT) 30 ML LIQUID GT SCH (21:19)
[2022-09-10] MEDS: MINERAL OIL/PETROLAT OPHT OINT 3.5 GM TUBE EACHEYE SCH (21:19)
[2022-09-11] MEDS: POLYVINYL ALCOHOL OPHT DROPS 15 ML BOTTLE EACHEYE SCH ×6 (03:30→23:30)
[2022-09-11] MEDS: LEVOTHYROXINE SODIUM 125 MCG TABLET PO SCH (06:26)
[2022-09-11] MEDS: FAMOTIDINE 20 MG TABLET GT SCH (06:26)
[2022-09-11] MEDS: CALCIUM CARB/VITAMIN D 600-400 MG TABLET GT SCH ×2 (06:26→17:07)
[2022-09-11] MEDS: ALENDRONATE SODIUM 70 MG GT SCH (06:26)
[2022-09-11] MEDS: CARBIDOPA/LEVODOPA 25-100MG TABLET GT SCH ×3 (06:26→21:00)
[2022-09-11] MEDS: [UNRECOGNIZED DRUG - OTHER] GT SCH (06:26)
[2022-09-11 08:00] VITALS: TEMP 98.6
[2022-09-11] MEDS: HYDROGEN PEROXIDE 3% 118 ML BOTTLE TP SCH ×2 (08:31→19:09)
[2022-09-11] MEDS: [UNRECOGNIZED DRUG - OTHER] GT SCH (09:25)
[2022-09-11] MEDS: [UNRECOGNIZED DRUG - OTHER] GT SCH ×2 (09:25→20:59)
[2022-09-11] MEDS: COD LIVER OIL/ZINC OXIDE OINT 113 GM TUBE TP SCH ×4 (09:25→21:00)
[2022-09-11] MEDS: VITAMINS A AND D OINT 42 GM TUBE TP SCH (09:26)
[2022-09-11] MEDS: NYSTATIN CREAM 30 GM TUBE TP SCH ×2 (09:26→21:00)
[2022-09-11 10:15] VITALS: O2SAT 98
[2022-09-11] MEDS: OSMOLITE 1.2 CAL 1,000 ML LIQUID GT PRN (11:46)
[2022-09-11] MEDS: LOPERAMIDE HCL 2 MG/15 ML GT PRN (12:09)
[2022-09-11 19:40] VITALS: O2SAT 99
[2022-09-11 20:35] VITALS: TEMP 99.6
[2022-09-11] MEDS: PROTEIN SUPPLEMENT (PROSTAT) 30 ML LIQUID GT SCH (20:59)
[2022-09-11] MEDS: MINERAL OIL/PETROLAT OPHT OINT 3.5 GM TUBE EACHEYE SCH (20:59)
[2022-09-12] MEDS: POLYVINYL ALCOHOL OPHT DROPS 15 ML BOTTLE EACHEYE SCH ×6 (04:00→23:30)
[2022-09-12] MEDS: FAMOTIDINE 20 MG TABLET GT SCH (06:16)
[2022-09-12] MEDS: [UNRECOGNIZED DRUG - OTHER] GT SCH (06:16)
[2022-09-12] MEDS: LEVOTHYROXINE SODIUM 125 MCG TABLET PO SCH (06:16)
[2022-09-12] MEDS: CALCIUM CARB/VITAMIN D 600-400 MG TABLET GT SCH ×2 (06:16→17:19)
[2022-09-12] MEDS: CARBIDOPA/LEVODOPA 25-100MG TABLET GT SCH ×3 (06:16→21:12)
[2022-09-12 08:00] VITALS: TEMP 98.8
[2022-09-12 08:18] VITALS: O2SAT 98
[2022-09-12] MEDS: [UNRECOGNIZED DRUG - OTHER] GT SCH (08:44)
[2022-09-12] MEDS: NYSTATIN CREAM 30 GM TUBE TP SCH ×2 (08:44→21:12)
[2022-09-12] MEDS: [UNRECOGNIZED DRUG - OTHER] GT SCH ×2 (08:44→21:11)
[2022-09-12] MEDS: COD LIVER OIL/ZINC OXIDE OINT 113 GM TUBE TP SCH ×4 (08:44→21:11)
[2022-09-12] MEDS: VITAMINS A AND D OINT 42 GM TUBE TP SCH (08:45)
[2022-09-12] MEDS: HYDROGEN PEROXIDE 3% 118 ML BOTTLE TP SCH ×2 (09:00→19:10)
[2022-09-12] MEDS: OSMOLITE 1.2 CAL 1,000 ML LIQUID GT PRN (10:55)
[2022-09-12 20:00] VITALS: TEMP 98
[2022-09-12] MEDS: PROTEIN SUPPLEMENT (PROSTAT) 30 ML LIQUID GT SCH (21:11)
[2022-09-12] MEDS: MINERAL OIL/PETROLAT OPHT OINT 3.5 GM TUBE EACHEYE SCH (21:11)
[2022-09-13] MEDS: POLYVINYL ALCOHOL OPHT DROPS 15 ML BOTTLE EACHEYE SCH ×5 (03:30→19:30)
[2022-09-13] MEDS: [UNRECOGNIZED DRUG - OTHER] GT SCH (05:45)
[2022-09-13] MEDS: CARBIDOPA/LEVODOPA 25-100MG TABLET GT SCH ×3 (05:45→21:00)
[2022-09-13] MEDS: CALCIUM CARB/VITAMIN D 600-400 MG TABLET GT SCH ×2 (05:45→18:22)
[2022-09-13] MEDS: LEVOTHYROXINE SODIUM 125 MCG TABLET PO SCH (05:46)
[2022-09-13] MEDS: FAMOTIDINE 20 MG TABLET GT SCH (05:46)
[2022-09-13] MEDS: HYDROGEN PEROXIDE 3% 118 ML BOTTLE TP SCH ×2 (07:21→19:12)
[2022-09-13 08:00] VITALS: TEMP 98.4
[2022-09-13] MEDS: [UNRECOGNIZED DRUG - OTHER] GT SCH ×2 (09:49→20:59)
[2022-09-13] MEDS: COD LIVER OIL/ZINC OXIDE OINT 113 GM TUBE TP SCH ×4 (09:49→21:00)
[2022-09-13] MEDS: [UNRECOGNIZED DRUG - OTHER] GT SCH (09:49)
[2022-09-13] MEDS: NYSTATIN CREAM 30 GM TUBE TP SCH ×2 (09:50→21:00)
[2022-09-13] MEDS: VITAMINS A AND D OINT 42 GM TUBE TP SCH (09:50)
[2022-09-13] MEDS: diphenhydrAMINE 25 MG/10 ML UDC GT PRN (09:50)
[2022-09-13] MEDS: OSMOLITE 1.2 CAL 1,000 ML LIQUID GT PRN (09:58)
[2022-09-13 10:30] VITALS: O2SAT 98
[2022-09-13 19:56] VITALS: O2SAT 99
[2022-09-13 20:00] VITALS: TEMP 98.2
[2022-09-13] MEDS: MINERAL OIL/PETROLAT OPHT OINT 3.5 GM TUBE EACHEYE SCH (20:59)
[2022-09-13] MEDS: PROTEIN SUPPLEMENT (PROSTAT) 30 ML LIQUID GT SCH (21:00)
[2022-09-14] MEDS: POLYVINYL ALCOHOL OPHT DROPS 15 ML BOTTLE EACHEYE SCH ×7 (00:29→23:34)
[2022-09-14] MEDS: LEVOTHYROXINE SODIUM 125 MCG TABLET PO SCH (05:19)
[2022-09-14] MEDS: CARBIDOPA/LEVODOPA 25-100MG TABLET GT SCH ×3 (05:19→22:49)
[2022-09-14] MEDS: CALCIUM CARB/VITAMIN D 600-400 MG TABLET GT SCH ×2 (05:19→17:45)
[2022-09-14] MEDS: [UNRECOGNIZED DRUG - OTHER] GT SCH (05:19)
[2022-09-14] MEDS: FAMOTIDINE 20 MG TABLET GT SCH (05:41)
[2022-09-14 07:34] VITALS: TEMP 98.4
[2022-09-14] MEDS: HYDROGEN PEROXIDE 3% 118 ML BOTTLE TP SCH ×2 (08:22→19:06)
[2022-09-14] MEDS: [UNRECOGNIZED DRUG - OTHER] GT SCH ×2 (08:37→20:41)
[2022-09-14] MEDS: [UNRECOGNIZED DRUG - OTHER] GT SCH (08:38)
[2022-09-14] MEDS: NYSTATIN CREAM 30 GM TUBE TP SCH ×2 (08:38→20:41)
[2022-09-14] MEDS: COD LIVER OIL/ZINC OXIDE OINT 113 GM TUBE TP SCH ×4 (08:38→20:41)
[2022-09-14] MEDS: VITAMINS A AND D OINT 42 GM TUBE TP SCH (08:39)
[2022-09-14] MEDS: diphenhydrAMINE 25 MG/10 ML UDC GT PRN ×2 (08:40→17:45)
[2022-09-14] MEDS: OSMOLITE 1.2 CAL 1,000 ML LIQUID GT PRN (08:41)
[2022-09-14 10:50] VITALS: O2SAT 97
[2022-09-14 20:25] VITALS: O2SAT 99
[2022-09-14] MEDS: MINERAL OIL/PETROLAT OPHT OINT 3.5 GM TUBE EACHEYE SCH (20:37)
[2022-09-14] MEDS: PROTEIN SUPPLEMENT (PROSTAT) 30 ML LIQUID GT SCH (20:41)
[2022-09-15] MEDS: POLYVINYL ALCOHOL OPHT DROPS 15 ML BOTTLE EACHEYE SCH ×6 (03:30→23:30)
[2022-09-15] MEDS: OSMOLITE 1.2 CAL 1,000 ML LIQUID GT PRN ×2 (04:57→04:58)
[2022-09-15] MEDS: LEVOTHYROXINE SODIUM 125 MCG TABLET PO SCH (05:01)
[2022-09-15] MEDS: FAMOTIDINE 20 MG TABLET GT SCH (05:01)
[2022-09-15] MEDS: CALCIUM CARB/VITAMIN D 600-400 MG TABLET GT SCH ×2 (05:01→17:03)
[2022-09-15] MEDS: CARBIDOPA/LEVODOPA 25-100MG TABLET GT SCH ×3 (05:01→21:25)
[2022-09-15] MEDS: [UNRECOGNIZED DRUG - OTHER] GT SCH (05:01)
[2022-09-15 07:19] VITALS: TEMP 97.8
[2022-09-15] MEDS: [UNRECOGNIZED DRUG - OTHER] GT SCH (08:16)
[2022-09-15] MEDS: [UNRECOGNIZED DRUG - OTHER] GT SCH ×2 (08:16→20:31)
[2022-09-15] MEDS: NYSTATIN CREAM 30 GM TUBE TP SCH (08:16)
[2022-09-15] MEDS: COD LIVER OIL/ZINC OXIDE OINT 113 GM TUBE TP SCH ×3 (08:16→20:32)
[2022-09-15] MEDS: VITAMINS A AND D OINT 42 GM TUBE TP SCH (08:16)
[2022-09-15] MEDS: LOPERAMIDE HCL 2 MG/15 ML GT PRN (08:19)
[2022-09-15] MEDS: HYDROGEN PEROXIDE 3% 118 ML BOTTLE TP SCH ×2 (09:20→19:03)
[2022-09-15 10:45] VITALS: O2SAT 98
[2022-09-15 20:00] VITALS: TEMP 98.5
[2022-09-15 20:24] VITALS: O2SAT 99
[2022-09-15] MEDS: MINERAL OIL/PETROLAT OPHT OINT 3.5 GM TUBE EACHEYE SCH (20:31)
[2022-09-15] MEDS: NYSTATIN CREAM 30 GM TUBE TOP SCH (20:31)
[2022-09-15] MEDS: COD LIVER OIL/ZINC OXIDE OINT 113 GM TUBE TOP SCH (20:31)
[2022-09-15] MEDS: PROTEIN SUPPLEMENT (PROSTAT) 30 ML LIQUID GT SCH (20:31)
[2022-09-16] MEDS: POLYVINYL ALCOHOL OPHT DROPS 15 ML BOTTLE EACHEYE SCH ×5 (03:52→20:25)
[2022-09-16] MEDS: OSMOLITE 1.2 CAL 1,000 ML LIQUID GT PRN (03:52)
[2022-09-16] MEDS: CALCIUM CARB/VITAMIN D 600-400 MG TABLET GT SCH ×2 (05:05→17:03)
[2022-09-16] MEDS: LEVOTHYROXINE SODIUM 125 MCG TABLET PO SCH (05:05)
[2022-09-16] MEDS: CARBIDOPA/LEVODOPA 25-100MG TABLET GT SCH ×3 (05:05→22:18)
[2022-09-16] MEDS: [UNRECOGNIZED DRUG - OTHER] GT SCH (05:05)
[2022-09-16] MEDS: FAMOTIDINE 20 MG TABLET GT SCH (05:38)
[2022-09-16] MEDS: HYDROGEN PEROXIDE 3% 118 ML BOTTLE TP SCH ×2 (07:18→21:52)
[2022-09-16 07:21] VITALS: TEMP 98.7
[2022-09-16] MEDS: COD LIVER OIL/ZINC OXIDE OINT 113 GM TUBE TOP SCH ×2 (09:00→20:26)
[2022-09-16] MEDS: COD LIVER OIL/ZINC OXIDE OINT 113 GM TUBE TP SCH ×2 (09:00→20:27)
[2022-09-16] MEDS: VITAMINS A AND D OINT 42 GM TUBE TP SCH (09:00)
[2022-09-16] MEDS: NYSTATIN CREAM 30 GM TUBE TOP SCH ×2 (09:00→20:26)
[2022-09-16] MEDS: [UNRECOGNIZED DRUG - OTHER] GT SCH (09:00)
[2022-09-16] MEDS: [UNRECOGNIZED DRUG - OTHER] GT SCH ×2 (09:00→20:26)
[2022-09-16 10:30] VITALS: O2SAT 98
[2022-09-16 20:00] VITALS: TEMP 98.6
[2022-09-16] MEDS: MINERAL OIL/PETROLAT OPHT OINT 3.5 GM TUBE EACHEYE SCH (20:25)
[2022-09-16] MEDS: PROTEIN SUPPLEMENT (PROSTAT) 30 ML LIQUID GT SCH (20:26)
[2022-09-16 21:31] VITALS: O2SAT 98
[2022-09-17] MEDS: POLYVINYL ALCOHOL OPHT DROPS 15 ML BOTTLE EACHEYE SCH ×7 (00:08→23:52)
[2022-09-17] MEDS: CALCIUM CARB/VITAMIN D 600-400 MG TABLET GT SCH ×2 (05:15→17:01)
[2022-09-17] MEDS: CARBIDOPA/LEVODOPA 25-100MG TABLET GT SCH ×3 (05:15→22:00)
[2022-09-17] MEDS: OSMOLITE 1.2 CAL 1,000 ML LIQUID GT PRN (05:15)
[2022-09-17] MEDS: LEVOTHYROXINE SODIUM 125 MCG TABLET PO SCH (05:15)
[2022-09-17] MEDS: [UNRECOGNIZED DRUG - OTHER] GT SCH (05:15)
[2022-09-17] MEDS: FAMOTIDINE 20 MG TABLET GT SCH (06:38)
[2022-09-17 07:25] VITALS: TEMP 98.5
[2022-09-17] MEDS: HYDROGEN PEROXIDE 3% 118 ML BOTTLE TP SCH ×2 (07:51→20:44)
[2022-09-17] MEDS: VITAMINS A AND D OINT 42 GM TUBE TP SCH (09:51)
[2022-09-17] MEDS: COD LIVER OIL/ZINC OXIDE OINT 113 GM TUBE TP SCH ×2 (09:51→21:00)
[2022-09-17] MEDS: [UNRECOGNIZED DRUG - OTHER] GT SCH ×2 (09:51→21:00)
[2022-09-17] MEDS: NYSTATIN CREAM 30 GM TUBE TOP SCH ×2 (09:51→21:00)
[2022-09-17] MEDS: [UNRECOGNIZED DRUG - OTHER] GT SCH (09:51)
[2022-09-17] MEDS: COD LIVER OIL/ZINC OXIDE OINT 113 GM TUBE TOP SCH ×2 (09:51→21:00)
[2022-09-17 10:10] VITALS: O2SAT 98
[2022-09-17 20:00] VITALS: TEMP 97.9
[2022-09-17] MEDS: PROTEIN SUPPLEMENT (PROSTAT) 30 ML LIQUID GT SCH (21:00)
[2022-09-17] MEDS: MINERAL OIL/PETROLAT OPHT OINT 3.5 GM TUBE EACHEYE SCH (21:00)
[2022-09-17 22:00] VITALS: O2SAT 99
[2022-09-18] MEDS: POLYVINYL ALCOHOL OPHT DROPS 15 ML BOTTLE EACHEYE SCH ×5 (03:30→19:30)
[2022-09-18] MEDS: LEVOTHYROXINE SODIUM 125 MCG TABLET PO SCH (05:48)
[2022-09-18] MEDS: FAMOTIDINE 20 MG TABLET GT SCH (05:48)
[2022-09-18] MEDS: CARBIDOPA/LEVODOPA 25-100MG TABLET GT SCH ×3 (05:48→21:31)
[2022-09-18] MEDS: CALCIUM CARB/VITAMIN D 600-400 MG TABLET GT SCH ×2 (05:48→18:02)
[2022-09-18] MEDS: ALENDRONATE SODIUM 70 MG GT SCH (05:48)
[2022-09-18] MEDS: [UNRECOGNIZED DRUG - OTHER] GT SCH (05:48)
[2022-09-18 07:26] VITALS: TEMP 98.5
[2022-09-18] MEDS: [UNRECOGNIZED DRUG - OTHER] GT SCH ×2 (09:39→21:28)
[2022-09-18] MEDS: COD LIVER OIL/ZINC OXIDE OINT 113 GM TUBE TOP SCH ×2 (09:40→21:30)
[2022-09-18] MEDS: [UNRECOGNIZED DRUG - OTHER] GT SCH (09:40)
[2022-09-18] MEDS: NYSTATIN CREAM 30 GM TUBE TOP SCH ×2 (09:40→21:30)
[2022-09-18] MEDS: COD LIVER OIL/ZINC OXIDE OINT 113 GM TUBE TP SCH ×2 (09:41→21:30)
[2022-09-18] MEDS: VITAMINS A AND D OINT 42 GM TUBE TP SCH (09:41)
[2022-09-18] MEDS: HYDROGEN PEROXIDE 3% 118 ML BOTTLE TP SCH ×2 (09:43→19:14)
[2022-09-18 20:00] VITALS: TEMP 98.4
[2022-09-18 20:31] VITALS: O2SAT 99
[2022-09-18] MEDS: MINERAL OIL/PETROLAT OPHT OINT 3.5 GM TUBE EACHEYE SCH (21:27)
[2022-09-18] MEDS: PROTEIN SUPPLEMENT (PROSTAT) 30 ML LIQUID GT SCH (21:30)
[2022-09-19] MEDS: POLYVINYL ALCOHOL OPHT DROPS 15 ML BOTTLE EACHEYE SCH ×7 (00:17→23:30)
[2022-09-19] MEDS: OSMOLITE 1.2 CAL 1,000 ML LIQUID GT PRN (05:00)
[2022-09-19] MEDS: CALCIUM CARB/VITAMIN D 600-400 MG TABLET GT SCH ×2 (05:57→17:16)
[2022-09-19] MEDS: [UNRECOGNIZED DRUG - OTHER] GT SCH (05:57)
[2022-09-19] MEDS: LEVOTHYROXINE SODIUM 125 MCG TABLET PO SCH (05:57)
[2022-09-19] MEDS: CARBIDOPA/LEVODOPA 25-100MG TABLET GT SCH ×3 (05:57→21:31)
[2022-09-19] MEDS: FAMOTIDINE 20 MG TABLET GT SCH (05:57)
[2022-09-19] MEDS: HYDROGEN PEROXIDE 3% 118 ML BOTTLE TP SCH ×2 (07:20→19:22)
[2022-09-19 08:00] VITALS: TEMP 98
[2022-09-19] MEDS: COD LIVER OIL/ZINC OXIDE OINT 113 GM TUBE TOP SCH ×2 (08:20→21:31)
[2022-09-19] MEDS: NYSTATIN CREAM 30 GM TUBE TOP SCH ×2 (08:20→21:31)
[2022-09-19] MEDS: COD LIVER OIL/ZINC OXIDE OINT 113 GM TUBE TP SCH ×2 (08:20→21:31)
[2022-09-19] MEDS: [UNRECOGNIZED DRUG - OTHER] GT SCH ×2 (08:20→21:30)
[2022-09-19] MEDS: VITAMINS A AND D OINT 42 GM TUBE TP SCH (08:20)
[2022-09-19] MEDS: [UNRECOGNIZED DRUG - OTHER] GT SCH (08:20)
[2022-09-19 10:50] VITALS: O2SAT 99
[2022-09-19 20:00] VITALS: TEMP 98.8
[2022-09-19 20:23] VITALS: O2SAT 99
[2022-09-19] MEDS: MINERAL OIL/PETROLAT OPHT OINT 3.5 GM TUBE EACHEYE SCH (21:30)
[2022-09-19] MEDS: PROTEIN SUPPLEMENT (PROSTAT) 30 ML LIQUID GT SCH (21:31)
[2022-09-20] MEDS: POLYVINYL ALCOHOL OPHT DROPS 15 ML BOTTLE EACHEYE SCH ×5 (03:30→19:30)
[2022-09-20] MEDS: CARBIDOPA/LEVODOPA 25-100MG TABLET GT SCH ×3 (05:34→21:57)
[2022-09-20] MEDS: [UNRECOGNIZED DRUG - OTHER] GT SCH (05:34)
[2022-09-20] MEDS: FAMOTIDINE 20 MG TABLET GT SCH (05:34)
[2022-09-20] MEDS: LEVOTHYROXINE SODIUM 125 MCG TABLET PO SCH (05:34)
[2022-09-20] MEDS: CALCIUM CARB/VITAMIN D 600-400 MG TABLET GT SCH ×2 (05:34→16:40)
[2022-09-20] MEDS: OSMOLITE 1.2 CAL 1,000 ML LIQUID GT PRN (05:51)
[2022-09-20 08:00] VITALS: TEMP 98
[2022-09-20] MEDS: COD LIVER OIL/ZINC OXIDE OINT 113 GM TUBE TOP SCH ×2 (09:00→21:56)
[2022-09-20] MEDS: COD LIVER OIL/ZINC OXIDE OINT 113 GM TUBE TP SCH ×2 (09:00→21:56)
[2022-09-20] MEDS: [UNRECOGNIZED DRUG - OTHER] GT SCH (09:00)
[2022-09-20] MEDS: [UNRECOGNIZED DRUG - OTHER] GT SCH ×2 (09:00→21:56)
[2022-09-20] MEDS: VITAMINS A AND D OINT 42 GM TUBE TP SCH (09:00)
[2022-09-20] MEDS: NYSTATIN CREAM 30 GM TUBE TOP SCH ×2 (09:00→21:56)
[2022-09-20] MEDS: HYDROGEN PEROXIDE 3% 118 ML BOTTLE TP SCH ×2 (09:00→19:22)
[2022-09-20 10:35] VITALS: O2SAT 99
[2022-09-20 19:45] VITALS: O2SAT 99
[2022-09-20 20:00] VITALS: TEMP 97.4
[2022-09-20] MEDS: PROTEIN SUPPLEMENT (PROSTAT) 30 ML LIQUID GT SCH (21:00)
[2022-09-20] MEDS: MINERAL OIL/PETROLAT OPHT OINT 3.5 GM TUBE EACHEYE SCH (21:56)
[2022-09-21] MEDS: POLYVINYL ALCOHOL OPHT DROPS 15 ML BOTTLE EACHEYE SCH ×7 (00:29→23:30)
[2022-09-21] MEDS: CARBIDOPA/LEVODOPA 25-100MG TABLET GT SCH ×3 (05:10→22:09)
[2022-09-21] MEDS: [UNRECOGNIZED DRUG - OTHER] GT SCH (05:11)
[2022-09-21] MEDS: LEVOTHYROXINE SODIUM 125 MCG TABLET PO SCH (05:11)
[2022-09-21] MEDS: CALCIUM CARB/VITAMIN D 600-400 MG TABLET GT SCH ×2 (05:15→18:17)
[2022-09-21] MEDS: FAMOTIDINE 20 MG TABLET GT SCH (06:07)
[2022-09-21] MEDS: OSMOLITE 1.2 CAL 1,000 ML LIQUID GT PRN (06:17)
[2022-09-21] MEDS: NYSTATIN CREAM 30 GM TUBE TOP SCH ×2 (08:22→20:41)
[2022-09-21] MEDS: [UNRECOGNIZED DRUG - OTHER] GT SCH ×2 (08:22→20:41)
[2022-09-21] MEDS: COD LIVER OIL/ZINC OXIDE OINT 113 GM TUBE TP SCH ×2 (08:22→20:41)
[2022-09-21] MEDS: VITAMINS A AND D OINT 42 GM TUBE TP SCH (08:22)
[2022-09-21] MEDS: COD LIVER OIL/ZINC OXIDE OINT 113 GM TUBE TOP SCH ×2 (08:22→20:41)
[2022-09-21 08:24] VITALS: TEMP 97.5
[2022-09-21] MEDS: [UNRECOGNIZED DRUG - OTHER] GT SCH (09:11)
[2022-09-21 09:30] VITALS: O2SAT 99
[2022-09-21] MEDS: HYDROGEN PEROXIDE 3% 118 ML BOTTLE TP SCH ×2 (09:30→19:10)
[2022-09-21 20:00] VITALS: TEMP 98.3
[2022-09-21] MEDS: PROTEIN SUPPLEMENT (PROSTAT) 30 ML LIQUID GT SCH (20:41)
[2022-09-21] MEDS: MINERAL OIL/PETROLAT OPHT OINT 3.5 GM TUBE EACHEYE SCH (20:41)
[2022-09-21 21:29] VITALS: TEMP 98.3
[2022-09-21 22:45] VITALS: O2SAT 99
[2022-09-22] MEDS: POLYVINYL ALCOHOL OPHT DROPS 15 ML BOTTLE EACHEYE SCH ×6 (03:30→23:50)
[2022-09-22] MEDS: CALCIUM CARB/VITAMIN D 600-400 MG TABLET GT SCH ×2 (05:49→17:09)
[2022-09-22] MEDS: [UNRECOGNIZED DRUG - OTHER] GT SCH (05:49)
[2022-09-22] MEDS: LEVOTHYROXINE SODIUM 125 MCG TABLET PO SCH (05:50)
[2022-09-22] MEDS: CARBIDOPA/LEVODOPA 25-100MG TABLET GT SCH ×3 (05:50→22:48)
[2022-09-22] MEDS: FAMOTIDINE 20 MG TABLET GT SCH (05:50)
[2022-09-22 07:30] VITALS: TEMP 97.2
[2022-09-22] MEDS: COD LIVER OIL/ZINC OXIDE OINT 113 GM TUBE TOP SCH ×2 (08:19→20:43)
[2022-09-22] MEDS: [UNRECOGNIZED DRUG - OTHER] GT SCH (08:19)
[2022-09-22] MEDS: COD LIVER OIL/ZINC OXIDE OINT 113 GM TUBE TP SCH ×2 (08:19→20:43)
[2022-09-22] MEDS: [UNRECOGNIZED DRUG - OTHER] GT SCH ×2 (08:19→20:42)
[2022-09-22] MEDS: VITAMINS A AND D OINT 42 GM TUBE TP SCH (08:19)
[2022-09-22] MEDS: NYSTATIN CREAM 30 GM TUBE TOP SCH ×2 (08:19→20:43)
[2022-09-22 08:40] VITALS: O2SAT 99
[2022-09-22] MEDS: HYDROGEN PEROXIDE 3% 118 ML BOTTLE TP SCH ×2 (08:43→20:21)
[2022-09-22 19:40] VITALS: O2SAT 99
[2022-09-22 20:00] VITALS: TEMP 98.6
[2022-09-22] MEDS: MINERAL OIL/PETROLAT OPHT OINT 3.5 GM TUBE EACHEYE SCH (20:42)
[2022-09-22] MEDS: PROTEIN SUPPLEMENT (PROSTAT) 30 ML LIQUID GT SCH (20:42)
[2022-09-23] MEDS: POLYVINYL ALCOHOL OPHT DROPS 15 ML BOTTLE EACHEYE SCH ×5 (03:58→19:30)
[2022-09-23] MEDS: CALCIUM CARB/VITAMIN D 600-400 MG TABLET GT SCH ×2 (05:48→17:10)
[2022-09-23] MEDS: LEVOTHYROXINE SODIUM 125 MCG TABLET PO SCH (05:48)
[2022-09-23] MEDS: CARBIDOPA/LEVODOPA 25-100MG TABLET GT SCH ×3 (05:48→21:38)
[2022-09-23] MEDS: [UNRECOGNIZED DRUG - OTHER] GT SCH (05:48)
[2022-09-23] MEDS: FAMOTIDINE 20 MG TABLET GT SCH (05:48)
[2022-09-23] MEDS: OSMOLITE 1.2 CAL 1,000 ML LIQUID GT PRN (05:48)
[2022-09-23 07:23] VITALS: TEMP 98.8
[2022-09-23] MEDS: HYDROGEN PEROXIDE 3% 118 ML BOTTLE TP SCH ×2 (08:21→19:13)
[2022-09-23] MEDS: [UNRECOGNIZED DRUG - OTHER] GT SCH (09:00)
[2022-09-23] MEDS: COD LIVER OIL/ZINC OXIDE OINT 113 GM TUBE TP SCH ×2 (09:00→21:35)
[2022-09-23] MEDS: [UNRECOGNIZED DRUG - OTHER] GT SCH ×2 (09:00→21:50)
[2022-09-23] MEDS: VITAMINS A AND D OINT 42 GM TUBE TP SCH (09:00)
[2022-09-23] MEDS: NYSTATIN CREAM 30 GM TUBE TOP SCH ×2 (09:00→21:34)
[2022-09-23] MEDS: COD LIVER OIL/ZINC OXIDE OINT 113 GM TUBE TOP SCH ×2 (09:00→21:34)
[2022-09-23] MEDS: LOPERAMIDE HCL 2 MG/15 ML GT PRN (10:18)
[2022-09-23 20:00] VITALS: TEMP 98.8
[2022-09-23 21:05] VITALS: O2SAT 99
[2022-09-23] MEDS: PROTEIN SUPPLEMENT (PROSTAT) 30 ML LIQUID GT SCH (21:34)
[2022-09-23] MEDS: MINERAL OIL/PETROLAT OPHT OINT 3.5 GM TUBE EACHEYE SCH (21:36)
[2022-09-24] MEDS: POLYVINYL ALCOHOL OPHT DROPS 15 ML BOTTLE EACHEYE SCH ×7 (00:03→23:30)
[2022-09-24] MEDS: [UNRECOGNIZED DRUG - OTHER] GT SCH (06:01)
[2022-09-24] MEDS: LEVOTHYROXINE SODIUM 125 MCG TABLET PO SCH (06:02)
[2022-09-24] MEDS: CARBIDOPA/LEVODOPA 25-100MG TABLET GT SCH ×3 (06:02→21:12)
[2022-09-24] MEDS: FAMOTIDINE 20 MG TABLET GT SCH (06:02)
[2022-09-24] MEDS: CALCIUM CARB/VITAMIN D 600-400 MG TABLET GT SCH ×2 (06:04→17:20)
[2022-09-24 07:23] VITALS: TEMP 98.5
[2022-09-24 07:41] VITALS: O2SAT 98
[2022-09-24] MEDS: LOPERAMIDE HCL 2 MG/15 ML GT PRN (07:57)
[2022-09-24] MEDS: NYSTATIN CREAM 30 GM TUBE TOP SCH ×2 (08:17→21:12)
[2022-09-24] MEDS: [UNRECOGNIZED DRUG - OTHER] GT SCH (08:17)
[2022-09-24] MEDS: COD LIVER OIL/ZINC OXIDE OINT 113 GM TUBE TP SCH ×2 (08:17→21:12)
[2022-09-24] MEDS: [UNRECOGNIZED DRUG - OTHER] GT SCH ×2 (08:17→21:11)
[2022-09-24] MEDS: VITAMINS A AND D OINT 42 GM TUBE TP SCH (08:17)
[2022-09-24] MEDS: COD LIVER OIL/ZINC OXIDE OINT 113 GM TUBE TOP SCH ×2 (08:17→21:11)
[2022-09-24] MEDS: HYDROGEN PEROXIDE 3% 118 ML BOTTLE TP SCH ×2 (09:00→19:26)
[2022-09-24 15:10] VITALS: O2SAT 98
[2022-09-24 19:25] VITALS: O2SAT 99
[2022-09-24 20:00] VITALS: TEMP 98.8
[2022-09-24] MEDS: MINERAL OIL/PETROLAT OPHT OINT 3.5 GM TUBE EACHEYE SCH (21:10)
[2022-09-24] MEDS: PROTEIN SUPPLEMENT (PROSTAT) 30 ML LIQUID GT SCH (21:11)
[2022-09-25] MEDS: POLYVINYL ALCOHOL OPHT DROPS 15 ML BOTTLE EACHEYE SCH ×6 (03:30→23:30)
[2022-09-25] MEDS: CARBIDOPA/LEVODOPA 25-100MG TABLET GT SCH ×3 (05:42→21:12)
[2022-09-25] MEDS: [UNRECOGNIZED DRUG - OTHER] GT SCH (05:42)
[2022-09-25] MEDS: LEVOTHYROXINE SODIUM 125 MCG TABLET PO SCH (05:42)
[2022-09-25] MEDS: FAMOTIDINE 20 MG TABLET GT SCH (05:42)
[2022-09-25] MEDS: OSMOLITE 1.2 CAL 1,000 ML LIQUID GT PRN (05:42)
[2022-09-25] MEDS: ALENDRONATE SODIUM 70 MG GT SCH (05:42)
[2022-09-25] MEDS: CALCIUM CARB/VITAMIN D 600-400 MG TABLET GT SCH ×2 (05:42→10:14)
[2022-09-25] MEDS: HYDROGEN PEROXIDE 3% 118 ML BOTTLE TP SCH ×2 (07:27→21:00)
[2022-09-25 07:52] VITALS: O2SAT 98
[2022-09-25 08:00] VITALS: TEMP 98.2
[2022-09-25] MEDS: COD LIVER OIL/ZINC OXIDE OINT 113 GM TUBE TOP SCH ×2 (09:00→21:11)
[2022-09-25] MEDS: NYSTATIN CREAM 30 GM TUBE TOP SCH ×2 (09:00→21:11)
[2022-09-25] MEDS: [UNRECOGNIZED DRUG - OTHER] GT SCH (09:00)
[2022-09-25] MEDS: COD LIVER OIL/ZINC OXIDE OINT 113 GM TUBE TP SCH ×2 (09:00→21:12)
[2022-09-25] MEDS: [UNRECOGNIZED DRUG - OTHER] GT SCH ×2 (09:00→21:11)
[2022-09-25] MEDS: VITAMINS A AND D OINT 42 GM TUBE TP SCH (09:00)
[2022-09-25 20:00] VITALS: TEMP 98.4
[2022-09-25 20:20] VITALS: O2SAT 98
[2022-09-25] MEDS: MINERAL OIL/PETROLAT OPHT OINT 3.5 GM TUBE EACHEYE SCH (21:11)
[2022-09-25] MEDS: PROTEIN SUPPLEMENT (PROSTAT) 30 ML LIQUID GT SCH (21:11)
[2022-09-26] MEDS: POLYVINYL ALCOHOL OPHT DROPS 15 ML BOTTLE EACHEYE SCH ×6 (03:30→23:30)
[2022-09-26] MEDS: [UNRECOGNIZED DRUG - OTHER] GT SCH (05:51)
[2022-09-26] MEDS: CALCIUM CARB/VITAMIN D 600-400 MG TABLET GT SCH ×2 (05:51→17:11)
[2022-09-26] MEDS: FAMOTIDINE 20 MG TABLET GT SCH (05:52)
[2022-09-26] MEDS: CARBIDOPA/LEVODOPA 25-100MG TABLET GT SCH ×3 (05:52→22:05)
[2022-09-26] MEDS: LEVOTHYROXINE SODIUM 125 MCG TABLET PO SCH (05:52)
[2022-09-26 07:15] VITALS: O2SAT 98
[2022-09-26 08:00] VITALS: TEMP 98.2
[2022-09-26] MEDS: COD LIVER OIL/ZINC OXIDE OINT 113 GM TUBE TP SCH ×2 (09:00→21:00)
[2022-09-26] MEDS: VITAMINS A AND D OINT 42 GM TUBE TP SCH (09:00)
[2022-09-26] MEDS: COD LIVER OIL/ZINC OXIDE OINT 113 GM TUBE TOP SCH ×2 (09:00→21:00)
[2022-09-26] MEDS: [UNRECOGNIZED DRUG - OTHER] GT SCH (09:00)
[2022-09-26] MEDS: HYDROGEN PEROXIDE 3% 118 ML BOTTLE TP SCH ×2 (09:00→21:00)
[2022-09-26] MEDS: NYSTATIN CREAM 30 GM TUBE TOP SCH ×2 (09:00→21:00)
[2022-09-26] MEDS: [UNRECOGNIZED DRUG - OTHER] GT SCH ×2 (09:00→21:00)
[2022-09-26] MEDS: OSMOLITE 1.2 CAL 1,000 ML LIQUID GT PRN (16:21)
[2022-09-26 17:42] VITALS: O2SAT 98
[2022-09-26 19:55] VITALS: O2SAT 99
[2022-09-26 20:00] VITALS: TEMP 97.4
[2022-09-26] MEDS: PROTEIN SUPPLEMENT (PROSTAT) 30 ML LIQUID GT SCH (21:00)
[2022-09-26] MEDS: MINERAL OIL/PETROLAT OPHT OINT 3.5 GM TUBE EACHEYE SCH (21:00)
[2022-09-27] MEDS: POLYVINYL ALCOHOL OPHT DROPS 15 ML BOTTLE EACHEYE SCH ×6 (03:30→23:30)
[2022-09-27] MEDS: LEVOTHYROXINE SODIUM 125 MCG TABLET PO SCH (06:32)
[2022-09-27] MEDS: CALCIUM CARB/VITAMIN D 600-400 MG TABLET GT SCH ×2 (06:32→18:54)
[2022-09-27] MEDS: CARBIDOPA/LEVODOPA 25-100MG TABLET GT SCH ×3 (06:32→21:50)
[2022-09-27] MEDS: [UNRECOGNIZED DRUG - OTHER] GT SCH (06:32)
[2022-09-27] MEDS: FAMOTIDINE 20 MG TABLET GT SCH (06:32)
[2022-09-27 06:47] VITALS: TEMP 98.5
[2022-09-27 08:00] VITALS: TEMP 98.4
[2022-09-27] MEDS: VITAMINS A AND D OINT 42 GM TUBE TP SCH (09:00)
[2022-09-27] MEDS: [UNRECOGNIZED DRUG - OTHER] GT SCH (09:00)
[2022-09-27] MEDS: COD LIVER OIL/ZINC OXIDE OINT 113 GM TUBE TOP SCH ×2 (09:00→21:50)
[2022-09-27] MEDS: [UNRECOGNIZED DRUG - OTHER] GT SCH ×2 (09:00→21:49)
[2022-09-27] MEDS: NYSTATIN CREAM 30 GM TUBE TOP SCH ×2 (09:00→21:50)
[2022-09-27] MEDS: COD LIVER OIL/ZINC OXIDE OINT 113 GM TUBE TP SCH ×2 (09:00→21:50)
[2022-09-27 09:22] VITALS: O2SAT 98
[2022-09-27] MEDS: HYDROGEN PEROXIDE 3% 118 ML BOTTLE TP SCH ×2 (09:22→19:24)
[2022-09-27 19:30] VITALS: O2SAT 99
[2022-09-27] MEDS: OSMOLITE 1.2 CAL 1,000 ML LIQUID GT PRN (19:34)
[2022-09-27 20:00] VITALS: TEMP 97.7
[2022-09-27] MEDS: MINERAL OIL/PETROLAT OPHT OINT 3.5 GM TUBE EACHEYE SCH (21:49)
[2022-09-27] MEDS: PROTEIN SUPPLEMENT (PROSTAT) 30 ML LIQUID GT SCH (21:49)
[2022-09-28] MEDS: POLYVINYL ALCOHOL OPHT DROPS 15 ML BOTTLE EACHEYE SCH ×6 (03:30→23:30)
[2022-09-28] MEDS: LEVOTHYROXINE SODIUM 125 MCG TABLET PO SCH (06:00)
[2022-09-28] MEDS: CARBIDOPA/LEVODOPA 25-100MG TABLET GT SCH ×3 (06:00→22:00)
[2022-09-28] MEDS: CALCIUM CARB/VITAMIN D 600-400 MG TABLET GT SCH ×2 (06:00→17:23)
[2022-09-28] MEDS: [UNRECOGNIZED DRUG - OTHER] GT SCH (06:00)
[2022-09-28] MEDS: FAMOTIDINE 20 MG TABLET GT SCH (06:27)
[2022-09-28 07:38] VITALS: O2SAT 98
[2022-09-28 08:31] VITALS: TEMP 98.4
[2022-09-28] MEDS: HYDROGEN PEROXIDE 3% 118 ML BOTTLE TP SCH ×2 (09:00→20:41)
[2022-09-28] MEDS: [UNRECOGNIZED DRUG - OTHER] GT SCH (09:00)
[2022-09-28] MEDS: COD LIVER OIL/ZINC OXIDE OINT 113 GM TUBE TOP SCH ×2 (09:42→21:00)
[2022-09-28] MEDS: NYSTATIN CREAM 30 GM TUBE TOP SCH ×2 (09:42→21:00)
[2022-09-28] MEDS: VITAMINS A AND D OINT 42 GM TUBE TP SCH (09:42)
[2022-09-28] MEDS: COD LIVER OIL/ZINC OXIDE OINT 113 GM TUBE TP SCH ×2 (09:42→21:00)
[2022-09-28] MEDS: [UNRECOGNIZED DRUG - OTHER] GT SCH ×2 (09:42→21:00)
[2022-09-28 15:40] VITALS: O2SAT 98
[2022-09-28] MEDS: OSMOLITE 1.2 CAL 1,000 ML LIQUID GT PRN (18:10)
[2022-09-28 20:00] VITALS: TEMP 98.9
[2022-09-28] MEDS: MINERAL OIL/PETROLAT OPHT OINT 3.5 GM TUBE EACHEYE SCH (21:00)
[2022-09-28] MEDS: PROTEIN SUPPLEMENT (PROSTAT) 30 ML LIQUID GT SCH (21:00)
[2022-09-28 21:28] VITALS: O2SAT 99
[2022-09-29] MEDS: POLYVINYL ALCOHOL OPHT DROPS 15 ML BOTTLE EACHEYE SCH ×6 (03:30→23:30)
[2022-09-29] MEDS: [UNRECOGNIZED DRUG - OTHER] GT SCH (05:50)
[2022-09-29] MEDS: CALCIUM CARB/VITAMIN D 600-400 MG TABLET GT SCH ×2 (05:50→17:06)
[2022-09-29] MEDS: CARBIDOPA/LEVODOPA 25-100MG TABLET GT SCH ×3 (05:53→22:39)
[2022-09-29] MEDS: LEVOTHYROXINE SODIUM 125 MCG TABLET PO SCH (05:55)
[2022-09-29] MEDS: FAMOTIDINE 20 MG TABLET GT SCH (05:55)
[2022-09-29 08:02] VITALS: TEMP 98
[2022-09-29] MEDS: HYDROGEN PEROXIDE 3% 118 ML BOTTLE TP SCH ×2 (08:38→20:03)
[2022-09-29] MEDS: [UNRECOGNIZED DRUG - OTHER] GT SCH (09:00)
[2022-09-29] MEDS: NYSTATIN CREAM 30 GM TUBE TOP SCH (09:00)
[2022-09-29] MEDS: COD LIVER OIL/ZINC OXIDE OINT 113 GM TUBE TOP SCH (09:00)
[2022-09-29] MEDS: [UNRECOGNIZED DRUG - OTHER] GT SCH ×2 (09:00→21:00)
[2022-09-29] MEDS: VITAMINS A AND D OINT 42 GM TUBE TP SCH (09:00)
[2022-09-29] MEDS: COD LIVER OIL/ZINC OXIDE OINT 113 GM TUBE TP SCH ×2 (09:00→21:00)
[2022-09-29 20:00] VITALS: TEMP 97.3; TEMP 98.3
[2022-09-29] MEDS: MINERAL OIL/PETROLAT OPHT OINT 3.5 GM TUBE EACHEYE SCH (21:00)
[2022-09-29] MEDS: PROTEIN SUPPLEMENT (PROSTAT) 30 ML LIQUID GT SCH (21:00)
[2022-09-29 21:30] VITALS: O2SAT 99
[2022-09-30] MEDS: POLYVINYL ALCOHOL OPHT DROPS 15 ML BOTTLE EACHEYE SCH ×6 (03:21→23:30)
[2022-09-30] MEDS: FAMOTIDINE 20 MG TABLET GT SCH (06:07)
[2022-09-30] MEDS: LEVOTHYROXINE SODIUM 125 MCG TABLET PO SCH (06:07)
[2022-09-30] MEDS: [UNRECOGNIZED DRUG - OTHER] GT SCH (06:07)
[2022-09-30] MEDS: CARBIDOPA/LEVODOPA 25-100MG TABLET GT SCH ×3 (06:07→21:49)
[2022-09-30] MEDS: CALCIUM CARB/VITAMIN D 600-400 MG TABLET GT SCH ×2 (06:07→17:28)
[2022-09-30 07:34] VITALS: TEMP 98.5
[2022-09-30] MEDS: [UNRECOGNIZED DRUG - OTHER] GT SCH (08:31)
[2022-09-30] MEDS: COD LIVER OIL/ZINC OXIDE OINT 113 GM TUBE TP SCH ×2 (08:31→21:49)
[2022-09-30] MEDS: [UNRECOGNIZED DRUG - OTHER] GT SCH ×2 (08:31→21:47)
[2022-09-30] MEDS: VITAMINS A AND D OINT 42 GM TUBE TP SCH (08:31)
[2022-09-30] MEDS: HYDROGEN PEROXIDE 3% 118 ML BOTTLE TP SCH ×2 (09:00→23:24)
[2022-09-30 10:51] VITALS: O2SAT 98
[2022-09-30 20:00] VITALS: TEMP 97.9
[2022-09-30] MEDS: MINERAL OIL/PETROLAT OPHT OINT 3.5 GM TUBE EACHEYE SCH (21:47)
[2022-09-30] MEDS: PROTEIN SUPPLEMENT (PROSTAT) 30 ML LIQUID GT SCH (21:48)
[2022-10-01] MEDS: OSMOLITE 1.2 CAL 1,000 ML LIQUID GT PRN ×2 (00:15→23:00)
[2022-10-01] MEDS: POLYVINYL ALCOHOL OPHT DROPS 15 ML BOTTLE EACHEYE SCH ×6 (04:17→23:30)
[2022-10-01] MEDS: CALCIUM CARB/VITAMIN D 600-400 MG TABLET GT SCH ×2 (06:13→17:19)
[2022-10-01] MEDS: CARBIDOPA/LEVODOPA 25-100MG TABLET GT SCH ×3 (06:13→21:02)
[2022-10-01] MEDS: FAMOTIDINE 20 MG TABLET GT SCH (06:13)
[2022-10-01] MEDS: LEVOTHYROXINE SODIUM 125 MCG TABLET PO SCH (06:13)
[2022-10-01] MEDS: [UNRECOGNIZED DRUG - OTHER] GT SCH (06:13)
[2022-10-01 07:26] VITALS: TEMP 98.4
[2022-10-01] MEDS: HYDROGEN PEROXIDE 3% 118 ML BOTTLE TP SCH ×2 (07:29→20:48)
[2022-10-01] MEDS: [UNRECOGNIZED DRUG - OTHER] GT SCH ×2 (09:00→20:50)
[2022-10-01] MEDS: VITAMINS A AND D OINT 42 GM TUBE TP SCH (09:00)
[2022-10-01] MEDS: [UNRECOGNIZED DRUG - OTHER] GT SCH (09:00)
[2022-10-01] MEDS: COD LIVER OIL/ZINC OXIDE OINT 113 GM TUBE TP SCH ×2 (09:00→20:51)
[2022-10-01 10:30] VITALS: O2SAT 98
[2022-10-01 20:14] VITALS: TEMP 98
[2022-10-01 20:48] VITALS: O2SAT 99
[2022-10-01] MEDS: MINERAL OIL/PETROLAT OPHT OINT 3.5 GM TUBE EACHEYE SCH (20:50)
[2022-10-01] MEDS: PROTEIN SUPPLEMENT (PROSTAT) 30 ML LIQUID GT SCH (20:50)
[2022-10-02] MEDS: POLYVINYL ALCOHOL OPHT DROPS 15 ML BOTTLE EACHEYE SCH ×6 (04:24→23:30)
[2022-10-02] MEDS: LEVOTHYROXINE SODIUM 125 MCG TABLET PO SCH (06:19)
[2022-10-02] MEDS: FAMOTIDINE 20 MG TABLET GT SCH (06:19)
[2022-10-02] MEDS: CALCIUM CARB/VITAMIN D 600-400 MG TABLET GT SCH ×2 (06:19→17:40)
[2022-10-02] MEDS: CARBIDOPA/LEVODOPA 25-100MG TABLET GT SCH ×3 (06:19→21:35)
[2022-10-02] MEDS: ALENDRONATE SODIUM 70 MG GT SCH (06:19)
[2022-10-02] MEDS: [UNRECOGNIZED DRUG - OTHER] GT SCH (06:19)
[2022-10-02 07:28] VITALS: TEMP 98.9
[2022-10-02 07:52] VITALS: O2SAT 98
[2022-10-02] MEDS: [UNRECOGNIZED DRUG - OTHER] GT SCH ×2 (09:52→21:34)
[2022-10-02] MEDS: VITAMINS A AND D OINT 42 GM TUBE TP SCH (09:53)
[2022-10-02] MEDS: COD LIVER OIL/ZINC OXIDE OINT 113 GM TUBE TP SCH ×2 (09:53→21:35)
[2022-10-02] MEDS: [UNRECOGNIZED DRUG - OTHER] GT SCH (09:53)
[2022-10-02] MEDS: HYDROGEN PEROXIDE 3% 118 ML BOTTLE TP SCH ×2 (10:36→19:10)
[2022-10-02 19:53] VITALS: TEMP 97.5
[2022-10-02 20:40] VITALS: O2SAT 99
[2022-10-02] MEDS: PROTEIN SUPPLEMENT (PROSTAT) 30 ML LIQUID GT SCH (21:34)
[2022-10-02] MEDS: MINERAL OIL/PETROLAT OPHT OINT 3.5 GM TUBE EACHEYE SCH (21:34)
[2022-10-03] MEDS: OSMOLITE 1.2 CAL 1,000 ML LIQUID GT PRN (00:59)
[2022-10-03] MEDS: POLYVINYL ALCOHOL OPHT DROPS 15 ML BOTTLE EACHEYE SCH ×6 (04:24→23:30)
[2022-10-03] MEDS: FAMOTIDINE 20 MG TABLET GT SCH (05:57)
[2022-10-03] MEDS: CALCIUM CARB/VITAMIN D 600-400 MG TABLET GT SCH ×2 (05:57→17:25)
[2022-10-03] MEDS: CARBIDOPA/LEVODOPA 25-100MG TABLET GT SCH ×3 (05:57→21:01)
[2022-10-03] MEDS: LEVOTHYROXINE SODIUM 125 MCG TABLET PO SCH (05:57)
[2022-10-03] MEDS: [UNRECOGNIZED DRUG - OTHER] GT SCH (05:57)
[2022-10-03 07:24] VITALS: TEMP 98.8
[2022-10-03 08:10] VITALS: O2SAT 98
[2022-10-03] MEDS: [UNRECOGNIZED DRUG - OTHER] GT SCH (09:00)
[2022-10-03] MEDS: HYDROGEN PEROXIDE 3% 118 ML BOTTLE TP SCH ×2 (09:00→19:19)
[2022-10-03] MEDS: VITAMINS A AND D OINT 42 GM TUBE TP SCH (09:00)
[2022-10-03] MEDS: COD LIVER OIL/ZINC OXIDE OINT 113 GM TUBE TP SCH ×2 (09:00→21:01)
[2022-10-03] MEDS: [UNRECOGNIZED DRUG - OTHER] GT SCH ×2 (09:00→20:59)
[2022-10-03 20:00] VITALS: TEMP 97.8
[2022-10-03 20:40] VITALS: O2SAT 99
[2022-10-03] MEDS: MINERAL OIL/PETROLAT OPHT OINT 3.5 GM TUBE EACHEYE SCH (20:59)
[2022-10-03] MEDS: PROTEIN SUPPLEMENT (PROSTAT) 30 ML LIQUID GT SCH (21:01)
[2022-10-04] MEDS: OSMOLITE 1.2 CAL 1,000 ML LIQUID GT PRN ×2 (01:12→22:54)
[2022-10-04] MEDS: POLYVINYL ALCOHOL OPHT DROPS 15 ML BOTTLE EACHEYE SCH ×6 (03:30→23:31)
[2022-10-04] MEDS: LEVOTHYROXINE SODIUM 125 MCG TABLET PO SCH (05:11)
[2022-10-04] MEDS: [UNRECOGNIZED DRUG - OTHER] GT SCH (05:11)
[2022-10-04] MEDS: CALCIUM CARB/VITAMIN D 600-400 MG TABLET GT SCH ×2 (05:11→17:18)
[2022-10-04] MEDS: CARBIDOPA/LEVODOPA 25-100MG TABLET GT SCH ×3 (05:11→22:01)
[2022-10-04] MEDS: FAMOTIDINE 20 MG TABLET GT SCH (06:04)
[2022-10-04] MEDS: HYDROGEN PEROXIDE 3% 118 ML BOTTLE TP SCH ×2 (07:46→21:04)
[2022-10-04 07:48] VITALS: TEMP 97.6
[2022-10-04] MEDS: [UNRECOGNIZED DRUG - OTHER] GT SCH ×2 (09:23→20:49)
[2022-10-04] MEDS: [UNRECOGNIZED DRUG - OTHER] GT SCH (09:23)
[2022-10-04] MEDS: COD LIVER OIL/ZINC OXIDE OINT 113 GM TUBE TP SCH ×2 (09:24→20:49)
[2022-10-04] MEDS: VITAMINS A AND D OINT 42 GM TUBE TP SCH (09:24)
[2022-10-04 10:10] VITALS: O2SAT 99
[2022-10-04 20:00] VITALS: TEMP 98
[2022-10-04] MEDS: PROTEIN SUPPLEMENT (PROSTAT) 30 ML LIQUID GT SCH (20:49)
[2022-10-04] MEDS: MINERAL OIL/PETROLAT OPHT OINT 3.5 GM TUBE EACHEYE SCH (20:49)
[2022-10-04 21:04] VITALS: O2SAT 99
[2022-10-05] MEDS: POLYVINYL ALCOHOL OPHT DROPS 15 ML BOTTLE EACHEYE SCH ×6 (04:25→23:35)
[2022-10-05] MEDS: [UNRECOGNIZED DRUG - OTHER] GT SCH (05:23)
[2022-10-05] MEDS: CALCIUM CARB/VITAMIN D 600-400 MG TABLET GT SCH ×2 (05:23→17:56)
[2022-10-05] MEDS: CARBIDOPA/LEVODOPA 25-100MG TABLET GT SCH ×3 (05:23→21:05)
[2022-10-05] MEDS: LEVOTHYROXINE SODIUM 125 MCG TABLET PO SCH (05:23)
[2022-10-05] MEDS: FAMOTIDINE 20 MG TABLET GT SCH (05:43)
[2022-10-05 07:40] VITALS: O2SAT 99
[2022-10-05 07:43] VITALS: TEMP 97.3
[2022-10-05] MEDS: HYDROGEN PEROXIDE 3% 118 ML BOTTLE TP SCH ×2 (08:55→19:12)
[2022-10-05] MEDS: VITAMINS A AND D OINT 42 GM TUBE TP SCH (09:00)
[2022-10-05] MEDS: [UNRECOGNIZED DRUG - OTHER] GT SCH (09:00)
[2022-10-05] MEDS: COD LIVER OIL/ZINC OXIDE OINT 113 GM TUBE TP SCH ×2 (09:00→21:04)
[2022-10-05] MEDS: [UNRECOGNIZED DRUG - OTHER] GT SCH ×2 (09:00→21:04)
[2022-10-05 19:15] VITALS: O2SAT 99
[2022-10-05 20:00] VITALS: TEMP 97.4
[2022-10-05] MEDS: MINERAL OIL/PETROLAT OPHT OINT 3.5 GM TUBE EACHEYE SCH (21:03)
[2022-10-05] MEDS: PROTEIN SUPPLEMENT (PROSTAT) 30 ML LIQUID GT SCH (21:04)
[2022-10-05] MEDS: diphenhydrAMINE 25 MG/10 ML UDC GT PRN (22:30)
[2022-10-06] MEDS: POLYVINYL ALCOHOL OPHT DROPS 15 ML BOTTLE EACHEYE SCH ×6 (03:30→23:30)
[2022-10-06] MEDS: LEVOTHYROXINE SODIUM 125 MCG TABLET PO SCH (05:01)
[2022-10-06] MEDS: FAMOTIDINE 20 MG TABLET GT SCH (05:01)
[2022-10-06] MEDS: CARBIDOPA/LEVODOPA 25-100MG TABLET GT SCH ×3 (05:01→21:27)
[2022-10-06] MEDS: CALCIUM CARB/VITAMIN D 600-400 MG TABLET GT SCH ×2 (05:01→17:53)
[2022-10-06] MEDS: [UNRECOGNIZED DRUG - OTHER] GT SCH (05:01)
[2022-10-06 08:07] VITALS: TEMP 98.4
[2022-10-06] MEDS: HYDROGEN PEROXIDE 3% 118 ML BOTTLE TP SCH ×2 (08:56→19:23)
[2022-10-06] MEDS ORDERED: VITAMINS A AND D OINT 42 GM TUBE TP SCH (09:00)
[2022-10-06] MEDS: [UNRECOGNIZED DRUG - OTHER] GT SCH ×2 (09:27→20:04)
[2022-10-06] MEDS: COD LIVER OIL/ZINC OXIDE OINT 113 GM TUBE TP SCH ×2 (09:27→20:04)
[2022-10-06] MEDS: [UNRECOGNIZED DRUG - OTHER] GT SCH (09:27)
[2022-10-06] MEDS: VITAMINS A AND D OINT 42 GM TUBE TP SCH (09:27)
[2022-10-06 17:26] VITALS: O2SAT 98
[2022-10-06] MEDS: OSMOLITE 1.2 CAL 1,000 ML LIQUID GT PRN (18:03)
[2022-10-06 19:38] VITALS: O2SAT 98
[2022-10-06 20:00] VITALS: TEMP 98.2
[2022-10-06] MEDS: PROTEIN SUPPLEMENT (PROSTAT) 30 ML LIQUID GT SCH (20:04)
[2022-10-06] MEDS: MINERAL OIL/PETROLAT OPHT OINT 3.5 GM TUBE EACHEYE SCH (20:04)
[2022-10-07] MEDS: POLYVINYL ALCOHOL OPHT DROPS 15 ML BOTTLE EACHEYE SCH ×6 (03:30→23:31)
[2022-10-07] MEDS: diphenhydrAMINE 25 MG/10 ML UDC GT PRN ×2 (04:57→14:19)
[2022-10-07] MEDS: CALCIUM CARB/VITAMIN D 600-400 MG TABLET GT SCH ×2 (05:46→17:52)
[2022-10-07] MEDS: [UNRECOGNIZED DRUG - OTHER] GT SCH (05:46)
[2022-10-07] MEDS: LEVOTHYROXINE SODIUM 125 MCG TABLET PO SCH (05:47)
[2022-10-07] MEDS: FAMOTIDINE 20 MG TABLET GT SCH (05:47)
[2022-10-07] MEDS: CARBIDOPA/LEVODOPA 25-100MG TABLET GT SCH ×3 (05:47→22:44)
[2022-10-07 07:32] VITALS: TEMP 98
[2022-10-07] MEDS: HYDROGEN PEROXIDE 3% 118 ML BOTTLE TP SCH ×2 (08:07→21:34)
[2022-10-07] MEDS: [UNRECOGNIZED DRUG - OTHER] GT SCH (09:13)
[2022-10-07] MEDS: VITAMINS A AND D OINT 42 GM TUBE TP SCH (09:13)
[2022-10-07] MEDS: COD LIVER OIL/ZINC OXIDE OINT 113 GM TUBE TP SCH ×2 (09:13→20:10)
[2022-10-07] MEDS: [UNRECOGNIZED DRUG - OTHER] GT SCH ×2 (09:13→20:10)
[2022-10-07 10:20] VITALS: O2SAT 97
[2022-10-07 20:00] VITALS: TEMP 98.1
[2022-10-07] MEDS: PROTEIN SUPPLEMENT (PROSTAT) 30 ML LIQUID GT SCH (20:10)
[2022-10-07] MEDS: OSMOLITE 1.2 CAL 1,000 ML LIQUID GT PRN (20:10)
[2022-10-07] MEDS: MINERAL OIL/PETROLAT OPHT OINT 3.5 GM TUBE EACHEYE SCH (20:10)
[2022-10-08] MEDS: POLYVINYL ALCOHOL OPHT DROPS 15 ML BOTTLE EACHEYE SCH ×6 (03:30→23:30)
[2022-10-08] MEDS: [UNRECOGNIZED DRUG - OTHER] GT SCH (05:30)
[2022-10-08] MEDS: FAMOTIDINE 20 MG TABLET GT SCH (05:30)
[2022-10-08] MEDS: CARBIDOPA/LEVODOPA 25-100MG TABLET GT SCH ×3 (05:30→21:29)
[2022-10-08] MEDS: CALCIUM CARB/VITAMIN D 600-400 MG TABLET GT SCH ×2 (05:30→17:56)
[2022-10-08] MEDS: LEVOTHYROXINE SODIUM 125 MCG TABLET PO SCH (05:30)
[2022-10-08 07:13] VITALS: O2SAT 98
[2022-10-08 07:31] VITALS: TEMP 98.5
[2022-10-08] MEDS: [UNRECOGNIZED DRUG - OTHER] GT SCH ×2 (08:43→21:28)
[2022-10-08] MEDS: COD LIVER OIL/ZINC OXIDE OINT 113 GM TUBE TP SCH ×2 (08:43→21:29)
[2022-10-08] MEDS: VITAMINS A AND D OINT 42 GM TUBE TP SCH (08:43)
[2022-10-08] MEDS: [UNRECOGNIZED DRUG - OTHER] GT SCH (08:43)
[2022-10-08] MEDS: HYDROGEN PEROXIDE 3% 118 ML BOTTLE TP SCH ×2 (09:00→19:05)
[2022-10-08 17:17] VITALS: O2SAT 98
[2022-10-08] MEDS: OSMOLITE 1.2 CAL 1,000 ML LIQUID GT PRN (19:24)
[2022-10-08 20:07] VITALS: TEMP 98.7
[2022-10-08 20:20] VITALS: O2SAT 97
[2022-10-08] MEDS: MINERAL OIL/PETROLAT OPHT OINT 3.5 GM TUBE EACHEYE SCH (21:28)
[2022-10-08] MEDS: PROTEIN SUPPLEMENT (PROSTAT) 30 ML LIQUID GT SCH (21:29)
[2022-10-09] MEDS: POLYVINYL ALCOHOL OPHT DROPS 15 ML BOTTLE EACHEYE SCH ×6 (03:58→23:14)
[2022-10-09] MEDS: [UNRECOGNIZED DRUG - OTHER] GT SCH (05:25)
[2022-10-09] MEDS: CALCIUM CARB/VITAMIN D 600-400 MG TABLET GT SCH ×2 (05:25→17:13)
[2022-10-09] MEDS: LEVOTHYROXINE SODIUM 125 MCG TABLET PO SCH (05:25)
[2022-10-09] MEDS: CARBIDOPA/LEVODOPA 25-100MG TABLET GT SCH ×3 (05:25→21:36)
[2022-10-09] MEDS: ALENDRONATE SODIUM 70 MG GT SCH (05:25)
[2022-10-09] MEDS: FAMOTIDINE 20 MG TABLET GT SCH (05:48)
[2022-10-09 07:26] VITALS: TEMP 98
[2022-10-09] MEDS: HYDROGEN PEROXIDE 3% 118 ML BOTTLE TP SCH ×2 (08:48→20:46)
[2022-10-09] MEDS: [UNRECOGNIZED DRUG - OTHER] GT SCH ×2 (08:58→21:36)
[2022-10-09] MEDS: [UNRECOGNIZED DRUG - OTHER] GT SCH (08:59)
[2022-10-09 09:00] VITALS: O2SAT 98
[2022-10-09] MEDS: COD LIVER OIL/ZINC OXIDE OINT 113 GM TUBE TP SCH ×2 (09:00→21:36)
[2022-10-09] MEDS: VITAMINS A AND D OINT 42 GM TUBE TP SCH (09:00)
[2022-10-09] MEDS: diphenhydrAMINE 25 MG/10 ML UDC GT PRN (17:20)
[2022-10-09 20:00] VITALS: TEMP 98.6
[2022-10-09 20:10] VITALS: O2SAT 99
[2022-10-09] MEDS: MINERAL OIL/PETROLAT OPHT OINT 3.5 GM TUBE EACHEYE SCH (21:36)
[2022-10-09] MEDS: PROTEIN SUPPLEMENT (PROSTAT) 30 ML LIQUID GT SCH (21:36)
[2022-10-10] MEDS: POLYVINYL ALCOHOL OPHT DROPS 15 ML BOTTLE EACHEYE SCH ×6 (03:30→23:30)
[2022-10-10] MEDS: CALCIUM CARB/VITAMIN D 600-400 MG TABLET GT SCH ×2 (05:59→17:04)
[2022-10-10] MEDS: [UNRECOGNIZED DRUG - OTHER] GT SCH (05:59)
[2022-10-10] MEDS: LEVOTHYROXINE SODIUM 125 MCG TABLET PO SCH (05:59)
[2022-10-10] MEDS: CARBIDOPA/LEVODOPA 25-100MG TABLET GT SCH ×3 (05:59→21:34)
[2022-10-10] MEDS: FAMOTIDINE 20 MG TABLET GT SCH (06:00)
[2022-10-10 07:48] VITALS: TEMP 97.6
[2022-10-10] MEDS: [UNRECOGNIZED DRUG - OTHER] GT SCH (09:56)
[2022-10-10] MEDS: [UNRECOGNIZED DRUG - OTHER] GT SCH ×2 (09:56→21:33)
[2022-10-10] MEDS: COD LIVER OIL/ZINC OXIDE OINT 113 GM TUBE TP SCH ×2 (09:57→21:34)
[2022-10-10] MEDS: VITAMINS A AND D OINT 42 GM TUBE TP SCH (09:57)
[2022-10-10 10:50] VITALS: O2SAT 98
[2022-10-10] MEDS: HYDROGEN PEROXIDE 3% 118 ML BOTTLE TP SCH ×2 (13:14→21:07)
[2022-10-10] MEDS: OSMOLITE 1.2 CAL 1,000 ML LIQUID GT PRN (16:59)
[2022-10-10 20:15] VITALS: O2SAT 98
[2022-10-10] MEDS: MINERAL OIL/PETROLAT OPHT OINT 3.5 GM TUBE EACHEYE SCH (21:33)
[2022-10-10] MEDS: PROTEIN SUPPLEMENT (PROSTAT) 30 ML LIQUID GT SCH (21:33)
[2022-10-10 21:37] VITALS: TEMP 98
[2022-10-11] MEDS: POLYVINYL ALCOHOL OPHT DROPS 15 ML BOTTLE EACHEYE SCH ×6 (03:30→23:14)
[2022-10-11] MEDS: FAMOTIDINE 20 MG TABLET GT SCH (06:04)
[2022-10-11] MEDS: CARBIDOPA/LEVODOPA 25-100MG TABLET GT SCH ×3 (06:04→22:00)
[2022-10-11] MEDS: [UNRECOGNIZED DRUG - OTHER] GT SCH (06:04)
[2022-10-11] MEDS: LEVOTHYROXINE SODIUM 125 MCG TABLET PO SCH (06:04)
[2022-10-11] MEDS: CALCIUM CARB/VITAMIN D 600-400 MG TABLET GT SCH ×2 (06:04→17:31)
[2022-10-11] MEDS: HYDROGEN PEROXIDE 3% 118 ML BOTTLE TP SCH ×2 (07:29→19:19)
[2022-10-11 07:35] VITALS: O2SAT 98
[2022-10-11 07:50] VITALS: TEMP 97
[2022-10-11] MEDS: [UNRECOGNIZED DRUG - OTHER] GT SCH ×2 (08:57→20:17)
[2022-10-11] MEDS: VITAMINS A AND D OINT 42 GM TUBE TP SCH (08:58)
[2022-10-11] MEDS: COD LIVER OIL/ZINC OXIDE OINT 113 GM TUBE TP SCH ×2 (08:58→20:17)
[2022-10-11] MEDS: [UNRECOGNIZED DRUG - OTHER] GT SCH (08:58)
[2022-10-11 11:30] VITALS: O2SAT 98
[2022-10-11] MEDS: OSMOLITE 1.2 CAL 1,000 ML LIQUID GT PRN (17:35)
[2022-10-11 19:16] VITALS: O2SAT 98
[2022-10-11 20:00] VITALS: TEMP 98
[2022-10-11] MEDS: PROTEIN SUPPLEMENT (PROSTAT) 30 ML LIQUID GT SCH (20:17)
[2022-10-11] MEDS: MINERAL OIL/PETROLAT OPHT OINT 3.5 GM TUBE EACHEYE SCH (20:17)
[2022-10-12] MEDS: POLYVINYL ALCOHOL OPHT DROPS 15 ML BOTTLE EACHEYE SCH ×6 (04:23→23:30)
[2022-10-12] MEDS: CALCIUM CARB/VITAMIN D 600-400 MG TABLET GT SCH ×2 (05:37→17:06)
[2022-10-12] MEDS: [UNRECOGNIZED DRUG - OTHER] GT SCH (05:37)
[2022-10-12] MEDS: FAMOTIDINE 20 MG TABLET GT SCH (05:38)
[2022-10-12] MEDS: CARBIDOPA/LEVODOPA 25-100MG TABLET GT SCH ×3 (05:38→22:26)
[2022-10-12] MEDS: LEVOTHYROXINE SODIUM 125 MCG TABLET PO SCH (05:38)
[2022-10-12] MEDS: HYDROGEN PEROXIDE 3% 118 ML BOTTLE TP SCH ×2 (07:13→19:17)
[2022-10-12 07:40] VITALS: O2SAT 98
[2022-10-12 08:00] VITALS: TEMP 97
[2022-10-12] MEDS: [UNRECOGNIZED DRUG - OTHER] GT SCH (09:36)
[2022-10-12] MEDS: COD LIVER OIL/ZINC OXIDE OINT 113 GM TUBE TP SCH ×2 (09:36→20:19)
[2022-10-12] MEDS: VITAMINS A AND D OINT 42 GM TUBE TP SCH (09:36)
[2022-10-12] MEDS: [UNRECOGNIZED DRUG - OTHER] GT SCH ×2 (09:36→20:19)
[2022-10-12] MEDS: OSMOLITE 1.2 CAL 1,000 ML LIQUID GT PRN (17:26)
[2022-10-12 19:05] VITALS: O2SAT 98
[2022-10-12 20:00] VITALS: TEMP 98
[2022-10-12] MEDS: PROTEIN SUPPLEMENT (PROSTAT) 30 ML LIQUID GT SCH (20:19)
[2022-10-12] MEDS: MINERAL OIL/PETROLAT OPHT OINT 3.5 GM TUBE EACHEYE SCH (20:19)
[2022-10-13] MEDS: POLYVINYL ALCOHOL OPHT DROPS 15 ML BOTTLE EACHEYE SCH ×6 (03:30→23:36)
[2022-10-13] MEDS: CALCIUM CARB/VITAMIN D 600-400 MG TABLET GT SCH ×2 (05:31→17:02)
[2022-10-13] MEDS: [UNRECOGNIZED DRUG - OTHER] GT SCH (05:31)
[2022-10-13] MEDS: CARBIDOPA/LEVODOPA 25-100MG TABLET GT SCH ×3 (05:31→21:55)
[2022-10-13] MEDS: LEVOTHYROXINE SODIUM 125 MCG TABLET PO SCH (05:32)
[2022-10-13] MEDS: FAMOTIDINE 20 MG TABLET GT SCH (05:32)
[2022-10-13] MEDS: HYDROGEN PEROXIDE 3% 118 ML BOTTLE TP SCH ×2 (07:42→19:24)
[2022-10-13] MEDS: [UNRECOGNIZED DRUG - OTHER] GT SCH ×2 (08:51→21:54)
[2022-10-13] MEDS: COD LIVER OIL/ZINC OXIDE OINT 113 GM TUBE TP SCH ×2 (08:51→21:54)
[2022-10-13] MEDS: [UNRECOGNIZED DRUG - OTHER] GT SCH (08:51)
[2022-10-13] MEDS: VITAMINS A AND D OINT 42 GM TUBE TP SCH (08:52)
[2022-10-13 10:50] VITALS: O2SAT 98
[2022-10-13] MEDS: diphenhydrAMINE 25 MG/10 ML UDC GT PRN (17:17)
[2022-10-13] MEDS: OSMOLITE 1.2 CAL 1,000 ML LIQUID GT PRN (17:23)
[2022-10-13 19:17] VITALS: O2SAT 98
[2022-10-13 20:00] VITALS: TEMP 98
[2022-10-13] MEDS: MINERAL OIL/PETROLAT OPHT OINT 3.5 GM TUBE EACHEYE SCH (21:54)
[2022-10-13] MEDS: PROTEIN SUPPLEMENT (PROSTAT) 30 ML LIQUID GT SCH (21:54)
[2022-10-14] MEDS: POLYVINYL ALCOHOL OPHT DROPS 15 ML BOTTLE EACHEYE SCH ×6 (03:30→23:30)
[2022-10-14] MEDS: [UNRECOGNIZED DRUG - OTHER] GT SCH (06:06)
[2022-10-14] MEDS: CALCIUM CARB/VITAMIN D 600-400 MG TABLET GT SCH ×2 (06:06→18:36)
[2022-10-14] MEDS: LEVOTHYROXINE SODIUM 125 MCG TABLET PO SCH (06:07)
[2022-10-14] MEDS: CARBIDOPA/LEVODOPA 25-100MG TABLET GT SCH ×3 (06:07→21:06)
[2022-10-14] MEDS: FAMOTIDINE 20 MG TABLET GT SCH (06:52)
[2022-10-14 07:35] VITALS: TEMP 98.8
[2022-10-14] MEDS: HYDROGEN PEROXIDE 3% 118 ML BOTTLE TP SCH ×2 (08:08→19:20)
[2022-10-14] MEDS: [UNRECOGNIZED DRUG - OTHER] GT SCH ×2 (09:00→21:06)
[2022-10-14] MEDS: [UNRECOGNIZED DRUG - OTHER] GT SCH (09:00)
[2022-10-14] MEDS: COD LIVER OIL/ZINC OXIDE OINT 113 GM TUBE TP SCH ×2 (10:00→21:06)
[2022-10-14] MEDS: VITAMINS A AND D OINT 42 GM TUBE TP SCH (10:00)
[2022-10-14 13:48] VITALS: O2SAT 98
[2022-10-14 19:40] VITALS: O2SAT 98
[2022-10-14 20:00] VITALS: TEMP 98
[2022-10-14] MEDS: MINERAL OIL/PETROLAT OPHT OINT 3.5 GM TUBE EACHEYE SCH (21:06)
[2022-10-14] MEDS: PROTEIN SUPPLEMENT (PROSTAT) 30 ML LIQUID GT SCH (21:06)
[2022-10-15] MEDS: POLYVINYL ALCOHOL OPHT DROPS 15 ML BOTTLE EACHEYE SCH ×6 (04:08→23:24)
[2022-10-15] MEDS: diphenhydrAMINE 25 MG/10 ML UDC GT PRN (05:45)
[2022-10-15] MEDS: LEVOTHYROXINE SODIUM 125 MCG TABLET PO SCH (06:42)
[2022-10-15] MEDS: CARBIDOPA/LEVODOPA 25-100MG TABLET GT SCH ×3 (06:42→21:32)
[2022-10-15] MEDS: CALCIUM CARB/VITAMIN D 600-400 MG TABLET GT SCH ×2 (06:42→17:22)
[2022-10-15] MEDS: FAMOTIDINE 20 MG TABLET GT SCH (06:42)
[2022-10-15] MEDS: [UNRECOGNIZED DRUG - OTHER] GT SCH (06:42)
[2022-10-15 07:10] VITALS: O2SAT 98
[2022-10-15] MEDS: HYDROGEN PEROXIDE 3% 118 ML BOTTLE TP SCH ×2 (07:16→19:38)
[2022-10-15 07:26] VITALS: TEMP 98.1
[2022-10-15] MEDS: COD LIVER OIL/ZINC OXIDE OINT 113 GM TUBE TP SCH ×2 (09:00→21:32)
[2022-10-15] MEDS: [UNRECOGNIZED DRUG - OTHER] GT SCH ×2 (09:00→21:32)
[2022-10-15] MEDS: [UNRECOGNIZED DRUG - OTHER] GT SCH (09:00)
[2022-10-15] MEDS: VITAMINS A AND D OINT 42 GM TUBE TP SCH (09:00)
[2022-10-15 17:27] VITALS: O2SAT 98
[2022-10-15 20:00] VITALS: TEMP 98
[2022-10-15] MEDS: PROTEIN SUPPLEMENT (PROSTAT) 30 ML LIQUID GT SCH (21:32)
[2022-10-15] MEDS: MINERAL OIL/PETROLAT OPHT OINT 3.5 GM TUBE EACHEYE SCH (21:32)
[2022-10-15 22:26] VITALS: O2SAT 98
[2022-10-16] MEDS: POLYVINYL ALCOHOL OPHT DROPS 15 ML BOTTLE EACHEYE SCH ×6 (03:30→23:07)
[2022-10-16] MEDS: CALCIUM CARB/VITAMIN D 600-400 MG TABLET GT SCH ×2 (06:15→17:15)
[2022-10-16] MEDS: CARBIDOPA/LEVODOPA 25-100MG TABLET GT SCH ×3 (06:15→22:16)
[2022-10-16] MEDS: LEVOTHYROXINE SODIUM 125 MCG TABLET PO SCH (06:15)
[2022-10-16] MEDS: ALENDRONATE SODIUM 70 MG GT SCH (06:15)
[2022-10-16] MEDS: FAMOTIDINE 20 MG TABLET GT SCH (06:15)
[2022-10-16] MEDS: [UNRECOGNIZED DRUG - OTHER] GT SCH (06:15)
[2022-10-16 08:00] VITALS: TEMP 99
[2022-10-16] MEDS: COD LIVER OIL/ZINC OXIDE OINT 113 GM TUBE TP SCH ×2 (08:52→20:21)
[2022-10-16] MEDS: VITAMINS A AND D OINT 42 GM TUBE TP SCH (08:52)
[2022-10-16] MEDS: [UNRECOGNIZED DRUG - OTHER] GT SCH ×2 (08:52→20:21)
[2022-10-16] MEDS: [UNRECOGNIZED DRUG - OTHER] GT SCH (08:52)
[2022-10-16] MEDS: HYDROGEN PEROXIDE 3% 118 ML BOTTLE TP SCH ×2 (09:00→19:15)
[2022-10-16 13:32] VITALS: O2SAT 98
[2022-10-16 19:00] VITALS: O2SAT 98
[2022-10-16 20:00] VITALS: TEMP 98
[2022-10-16] MEDS: MINERAL OIL/PETROLAT OPHT OINT 3.5 GM TUBE EACHEYE SCH (20:21)
[2022-10-16] MEDS: PROTEIN SUPPLEMENT (PROSTAT) 30 ML LIQUID GT SCH (20:21)
[2022-10-17] MEDS: POLYVINYL ALCOHOL OPHT DROPS 15 ML BOTTLE EACHEYE SCH ×6 (03:53→23:42)
[2022-10-17] MEDS: [UNRECOGNIZED DRUG - OTHER] GT SCH (05:51)
[2022-10-17] MEDS: FAMOTIDINE 20 MG TABLET GT SCH (05:51)
[2022-10-17] MEDS: LEVOTHYROXINE SODIUM 125 MCG TABLET PO SCH (05:51)
[2022-10-17] MEDS: CALCIUM CARB/VITAMIN D 600-400 MG TABLET GT SCH ×2 (05:51→17:27)
[2022-10-17] MEDS: CARBIDOPA/LEVODOPA 25-100MG TABLET GT SCH ×3 (05:51→21:10)
[2022-10-17 07:54] VITALS: TEMP 97.2
[2022-10-17] MEDS: HYDROGEN PEROXIDE 3% 118 ML BOTTLE TP SCH ×2 (09:00→19:13)
[2022-10-17] MEDS: [UNRECOGNIZED DRUG - OTHER] GT SCH ×2 (09:20→21:10)
[2022-10-17] MEDS: [UNRECOGNIZED DRUG - OTHER] GT SCH (09:20)
[2022-10-17] MEDS: VITAMINS A AND D OINT 42 GM TUBE TP SCH (09:22)
[2022-10-17] MEDS: COD LIVER OIL/ZINC OXIDE OINT 113 GM TUBE TP SCH ×2 (09:22→21:10)
[2022-10-17 10:50] VITALS: O2SAT 98
[2022-10-17 15:46] VITALS: O2SAT 98
[2022-10-17] MEDS: OSMOLITE 1.2 CAL 1,000 ML LIQUID GT PRN (17:29)
[2022-10-17 19:45] VITALS: O2SAT 98
[2022-10-17 20:00] VITALS: TEMP 98
[2022-10-17] MEDS: PROTEIN SUPPLEMENT (PROSTAT) 30 ML LIQUID GT SCH (21:10)
[2022-10-17] MEDS: MINERAL OIL/PETROLAT OPHT OINT 3.5 GM TUBE EACHEYE SCH (21:10)
[2022-10-18] MEDS: POLYVINYL ALCOHOL OPHT DROPS 15 ML BOTTLE EACHEYE SCH ×6 (04:29→23:30)
[2022-10-18] MEDS: CARBIDOPA/LEVODOPA 25-100MG TABLET GT SCH ×3 (05:17→22:07)
[2022-10-18] MEDS: [UNRECOGNIZED DRUG - OTHER] GT SCH (05:17)
[2022-10-18] MEDS: LEVOTHYROXINE SODIUM 125 MCG TABLET PO SCH (05:17)
[2022-10-18] MEDS: CALCIUM CARB/VITAMIN D 600-400 MG TABLET GT SCH ×2 (05:17→18:19)
[2022-10-18] MEDS: FAMOTIDINE 20 MG TABLET GT SCH (05:31)
[2022-10-18 07:48] VITALS: TEMP 97.4
[2022-10-18] MEDS: VITAMINS A AND D OINT 42 GM TUBE TP SCH (09:00)
[2022-10-18] MEDS: HYDROGEN PEROXIDE 3% 118 ML BOTTLE TP SCH ×2 (09:00→19:15)
[2022-10-18] MEDS: COD LIVER OIL/ZINC OXIDE OINT 113 GM TUBE TP SCH ×2 (09:00→20:17)
[2022-10-18] MEDS: [UNRECOGNIZED DRUG - OTHER] GT SCH ×2 (09:27→20:17)
[2022-10-18] MEDS: [UNRECOGNIZED DRUG - OTHER] GT SCH (09:27)
[2022-10-18 10:25] VITALS: O2SAT 98
[2022-10-18] MEDS: OSMOLITE 1.2 CAL 1,000 ML LIQUID GT PRN (16:44)
[2022-10-18 19:00] VITALS: O2SAT 98
[2022-10-18 20:00] VITALS: TEMP 98
[2022-10-18] MEDS: MINERAL OIL/PETROLAT OPHT OINT 3.5 GM TUBE EACHEYE SCH (20:17)
[2022-10-18] MEDS: PROTEIN SUPPLEMENT (PROSTAT) 30 ML LIQUID GT SCH (20:17)
[2022-10-19] MEDS: POLYVINYL ALCOHOL OPHT DROPS 15 ML BOTTLE EACHEYE SCH ×6 (04:24→23:30)
[2022-10-19] MEDS: CARBIDOPA/LEVODOPA 25-100MG TABLET GT SCH ×3 (05:36→22:05)
[2022-10-19] MEDS: LEVOTHYROXINE SODIUM 125 MCG TABLET PO SCH (05:36)
[2022-10-19] MEDS: CALCIUM CARB/VITAMIN D 600-400 MG TABLET GT SCH ×2 (05:36→17:58)
[2022-10-19] MEDS: FAMOTIDINE 20 MG TABLET GT SCH (05:36)
[2022-10-19] MEDS: [UNRECOGNIZED DRUG - OTHER] GT SCH (05:36)
[2022-10-19] MEDS: HYDROGEN PEROXIDE 3% 118 ML BOTTLE TP SCH ×2 (07:13→19:10)
[2022-10-19 07:30] VITALS: TEMP 98.1
[2022-10-19 07:40] VITALS: O2SAT 98
[2022-10-19] MEDS: [UNRECOGNIZED DRUG - OTHER] GT SCH (09:33)
[2022-10-19] MEDS: VITAMINS A AND D OINT 42 GM TUBE TP SCH (09:33)
[2022-10-19] MEDS: COD LIVER OIL/ZINC OXIDE OINT 113 GM TUBE TP SCH ×2 (09:33→20:34)
[2022-10-19] MEDS: [UNRECOGNIZED DRUG - OTHER] GT SCH ×2 (09:33→20:34)
[2022-10-19] MEDS: OSMOLITE 1.2 CAL 1,000 ML LIQUID GT PRN (18:09)
[2022-10-19 19:50] VITALS: O2SAT 98
[2022-10-19 20:00] VITALS: TEMP 97.1
[2022-10-19] MEDS: MINERAL OIL/PETROLAT OPHT OINT 3.5 GM TUBE EACHEYE SCH (20:34)
[2022-10-19] MEDS: PROTEIN SUPPLEMENT (PROSTAT) 30 ML LIQUID GT SCH (20:34)
[2022-10-20] MEDS: POLYVINYL ALCOHOL OPHT DROPS 15 ML BOTTLE EACHEYE SCH ×6 (03:30→23:30)
[2022-10-20] MEDS: CALCIUM CARB/VITAMIN D 600-400 MG TABLET GT SCH ×2 (05:15→17:35)
[2022-10-20] MEDS: LEVOTHYROXINE SODIUM 125 MCG TABLET PO SCH (05:15)
[2022-10-20] MEDS: CARBIDOPA/LEVODOPA 25-100MG TABLET GT SCH ×3 (05:15→21:17)
[2022-10-20] MEDS: [UNRECOGNIZED DRUG - OTHER] GT SCH (05:15)
[2022-10-20] MEDS: FAMOTIDINE 20 MG TABLET GT SCH (05:38)
[2022-10-20 07:23] VITALS: TEMP 98.3
[2022-10-20] MEDS: HYDROGEN PEROXIDE 3% 118 ML BOTTLE TP SCH ×2 (08:19→21:25)
[2022-10-20] MEDS: VITAMINS A AND D OINT 42 GM TUBE TP SCH (09:14)
[2022-10-20] MEDS: COD LIVER OIL/ZINC OXIDE OINT 113 GM TUBE TP SCH ×2 (09:14→21:17)
[2022-10-20] MEDS: [UNRECOGNIZED DRUG - OTHER] GT SCH (09:14)
[2022-10-20] MEDS: [UNRECOGNIZED DRUG - OTHER] GT SCH ×2 (09:14→21:17)
[2022-10-20 14:05] VITALS: O2SAT 98
[2022-10-20 19:40] VITALS: O2SAT 97
[2022-10-20 20:37] VITALS: TEMP 97.8
[2022-10-20] MEDS: MINERAL OIL/PETROLAT OPHT OINT 3.5 GM TUBE EACHEYE SCH (21:17)
[2022-10-20] MEDS: PROTEIN SUPPLEMENT (PROSTAT) 30 ML LIQUID GT SCH (21:17)
[2022-10-21] MEDS: POLYVINYL ALCOHOL OPHT DROPS 15 ML BOTTLE EACHEYE SCH ×6 (04:06→23:55)
[2022-10-21] MEDS: [UNRECOGNIZED DRUG - OTHER] GT SCH (05:47)
[2022-10-21] MEDS: CALCIUM CARB/VITAMIN D 600-400 MG TABLET GT SCH ×2 (05:47→17:06)
[2022-10-21] MEDS: FAMOTIDINE 20 MG TABLET GT SCH (05:47)
[2022-10-21] MEDS: CARBIDOPA/LEVODOPA 25-100MG TABLET GT SCH ×3 (05:47→22:11)
[2022-10-21] MEDS: LEVOTHYROXINE SODIUM 125 MCG TABLET PO SCH (05:47)
[2022-10-21] MEDS: HYDROGEN PEROXIDE 3% 118 ML BOTTLE TP SCH ×2 (07:50→19:06)
[2022-10-21 08:00] VITALS: TEMP 98.1
[2022-10-21] MEDS: [UNRECOGNIZED DRUG - OTHER] GT SCH (08:19)
[2022-10-21] MEDS: [UNRECOGNIZED DRUG - OTHER] GT SCH ×2 (08:19→20:35)
[2022-10-21] MEDS: COD LIVER OIL/ZINC OXIDE OINT 113 GM TUBE TP SCH ×2 (08:19→20:36)
[2022-10-21] MEDS: VITAMINS A AND D OINT 42 GM TUBE TP SCH (08:19)
[2022-10-21 10:25] VITALS: O2SAT 97
[2022-10-21] MEDS: diphenhydrAMINE 25 MG/10 ML UDC GT PRN (14:33)
[2022-10-21] MEDS: OSMOLITE 1.2 CAL 1,000 ML LIQUID GT PRN (14:40)
[2022-10-21 19:40] VITALS: O2SAT 97
[2022-10-21 19:57] VITALS: TEMP 98.5
[2022-10-21] MEDS: PROTEIN SUPPLEMENT (PROSTAT) 30 ML LIQUID GT SCH (20:35)
[2022-10-21] MEDS: MINERAL OIL/PETROLAT OPHT OINT 3.5 GM TUBE EACHEYE SCH (20:35)
[2022-10-22] MEDS: POLYVINYL ALCOHOL OPHT DROPS 15 ML BOTTLE EACHEYE SCH ×6 (03:50→23:30)
[2022-10-22] MEDS: CARBIDOPA/LEVODOPA 25-100MG TABLET GT SCH ×3 (05:14→21:21)
[2022-10-22] MEDS: CALCIUM CARB/VITAMIN D 600-400 MG TABLET GT SCH ×2 (05:14→17:22)
[2022-10-22] MEDS: [UNRECOGNIZED DRUG - OTHER] GT SCH (05:14)
[2022-10-22] MEDS: LEVOTHYROXINE SODIUM 125 MCG TABLET PO SCH (05:14)
[2022-10-22] MEDS: FAMOTIDINE 20 MG TABLET GT SCH (05:32)
[2022-10-22 07:24] VITALS: TEMP 98.3
[2022-10-22 08:15] VITALS: O2SAT 98
[2022-10-22] MEDS: HYDROGEN PEROXIDE 3% 118 ML BOTTLE TP SCH ×2 (09:00→19:15)
[2022-10-22] MEDS: COD LIVER OIL/ZINC OXIDE OINT 113 GM TUBE TP SCH ×2 (09:43→21:21)
[2022-10-22] MEDS: [UNRECOGNIZED DRUG - OTHER] GT SCH ×2 (09:43→21:25)
[2022-10-22] MEDS: [UNRECOGNIZED DRUG - OTHER] GT SCH (09:43)
[2022-10-22] MEDS: VITAMINS A AND D OINT 42 GM TUBE TP SCH (09:43)
[2022-10-22] MEDS: OSMOLITE 1.2 CAL 1,000 ML LIQUID GT PRN (12:21)
[2022-10-22 15:26] VITALS: O2SAT 98
[2022-10-22 19:49] VITALS: TEMP 98.5
[2022-10-22 19:50] VITALS: O2SAT 97
[2022-10-22] MEDS: MINERAL OIL/PETROLAT OPHT OINT 3.5 GM TUBE EACHEYE SCH (21:19)
[2022-10-22] MEDS: PROTEIN SUPPLEMENT (PROSTAT) 30 ML LIQUID GT SCH (21:19)
[2022-10-22] MEDS: diphenhydrAMINE 25 MG/10 ML UDC GT PRN (21:25)
[2022-10-23] MEDS: POLYVINYL ALCOHOL OPHT DROPS 15 ML BOTTLE EACHEYE SCH ×6 (03:30→23:30)
[2022-10-23] MEDS: CARBIDOPA/LEVODOPA 25-100MG TABLET GT SCH ×3 (05:53→21:30)
[2022-10-23] MEDS: FAMOTIDINE 20 MG TABLET GT SCH (05:53)
[2022-10-23] MEDS: ALENDRONATE SODIUM 70 MG GT SCH (05:53)
[2022-10-23] MEDS: LEVOTHYROXINE SODIUM 125 MCG TABLET PO SCH (05:53)
[2022-10-23] MEDS: [UNRECOGNIZED DRUG - OTHER] GT SCH (05:53)
[2022-10-23] MEDS: CALCIUM CARB/VITAMIN D 600-400 MG TABLET GT SCH ×2 (05:53→17:47)
[2022-10-23 07:26] VITALS: TEMP 97.9
[2022-10-23] MEDS: HYDROGEN PEROXIDE 3% 118 ML BOTTLE TP SCH ×2 (08:13→21:42)
[2022-10-23 09:00] VITALS: O2SAT 97
[2022-10-23] MEDS: [UNRECOGNIZED DRUG - OTHER] GT SCH ×2 (09:30→21:29)
[2022-10-23] MEDS: [UNRECOGNIZED DRUG - OTHER] GT SCH (09:30)
[2022-10-23] MEDS: VITAMINS A AND D OINT 42 GM TUBE TP SCH (09:30)
[2022-10-23] MEDS: COD LIVER OIL/ZINC OXIDE OINT 113 GM TUBE TP SCH ×2 (09:30→21:30)
[2022-10-23] MEDS: OSMOLITE 1.2 CAL 1,000 ML LIQUID GT PRN (13:40)
[2022-10-23 20:00] VITALS: TEMP 97.4
[2022-10-23] MEDS: MINERAL OIL/PETROLAT OPHT OINT 3.5 GM TUBE EACHEYE SCH (21:29)
[2022-10-23] MEDS: PROTEIN SUPPLEMENT (PROSTAT) 30 ML LIQUID GT SCH (21:29)
[2022-10-24 00:12] VITALS: O2SAT 96
[2022-10-24] MEDS: POLYVINYL ALCOHOL OPHT DROPS 15 ML BOTTLE EACHEYE SCH ×6 (03:30→23:30)
[2022-10-24] MEDS: [UNRECOGNIZED DRUG - OTHER] GT SCH (05:13)
[2022-10-24] MEDS: CALCIUM CARB/VITAMIN D 600-400 MG TABLET GT SCH ×2 (05:13→18:02)
[2022-10-24] MEDS: CARBIDOPA/LEVODOPA 25-100MG TABLET GT SCH ×3 (05:14→21:26)
[2022-10-24] MEDS: LEVOTHYROXINE SODIUM 125 MCG TABLET PO SCH (05:14)
[2022-10-24] MEDS: FAMOTIDINE 20 MG TABLET GT SCH (05:30)
[2022-10-24 07:34] VITALS: TEMP 97.6
[2022-10-24] MEDS: HYDROGEN PEROXIDE 3% 118 ML BOTTLE TP SCH ×2 (09:00→19:11)
[2022-10-24] MEDS: COD LIVER OIL/ZINC OXIDE OINT 113 GM TUBE TP SCH ×2 (09:07→21:26)
[2022-10-24] MEDS: [UNRECOGNIZED DRUG - OTHER] GT SCH ×2 (09:07→21:25)
[2022-10-24] MEDS: [UNRECOGNIZED DRUG - OTHER] GT SCH (09:07)
[2022-10-24] MEDS: VITAMINS A AND D OINT 42 GM TUBE TP SCH (09:08)
[2022-10-24 11:15] VITALS: O2SAT 98
[2022-10-24 19:45] VITALS: O2SAT 97
[2022-10-24] MEDS: PROTEIN SUPPLEMENT (PROSTAT) 30 ML LIQUID GT SCH (21:25)
[2022-10-24] MEDS: MINERAL OIL/PETROLAT OPHT OINT 3.5 GM TUBE EACHEYE SCH (21:25)
[2022-10-24 22:17] VITALS: TEMP 97.4
[2022-10-25] MEDS: POLYVINYL ALCOHOL OPHT DROPS 15 ML BOTTLE EACHEYE SCH ×6 (03:30→22:46)
[2022-10-25] MEDS: CALCIUM CARB/VITAMIN D 600-400 MG TABLET GT SCH ×2 (06:21→17:05)
[2022-10-25] MEDS: LEVOTHYROXINE SODIUM 125 MCG TABLET PO SCH (06:21)
[2022-10-25] MEDS: [UNRECOGNIZED DRUG - OTHER] GT SCH (06:21)
[2022-10-25] MEDS: CARBIDOPA/LEVODOPA 25-100MG TABLET GT SCH ×3 (06:21→22:42)
[2022-10-25] MEDS: FAMOTIDINE 20 MG TABLET GT SCH (06:21)
[2022-10-25 08:00] VITALS: TEMP 97.6
[2022-10-25] MEDS: HYDROGEN PEROXIDE 3% 118 ML BOTTLE TP SCH ×2 (08:19→19:20)
[2022-10-25] MEDS: [UNRECOGNIZED DRUG - OTHER] GT SCH (08:41)
[2022-10-25] MEDS: COD LIVER OIL/ZINC OXIDE OINT 113 GM TUBE TP SCH ×2 (08:41→21:00)
[2022-10-25] MEDS: [UNRECOGNIZED DRUG - OTHER] GT SCH ×2 (08:41→21:00)
[2022-10-25] MEDS: VITAMINS A AND D OINT 42 GM TUBE TP SCH (08:42)
[2022-10-25 10:50] VITALS: O2SAT 98
[2022-10-25] MEDS: OSMOLITE 1.2 CAL 1,000 ML LIQUID GT PRN (12:23)
[2022-10-25 19:40] VITALS: O2SAT 97
[2022-10-25 20:00] VITALS: TEMP 97.6
[2022-10-25] MEDS: PROTEIN SUPPLEMENT (PROSTAT) 30 ML LIQUID GT SCH (21:00)
[2022-10-25] MEDS: MINERAL OIL/PETROLAT OPHT OINT 3.5 GM TUBE EACHEYE SCH (21:00)
[2022-10-26] MEDS: POLYVINYL ALCOHOL OPHT DROPS 15 ML BOTTLE EACHEYE SCH ×6 (03:57→23:52)
[2022-10-26] MEDS: CALCIUM CARB/VITAMIN D 600-400 MG TABLET GT SCH ×2 (05:05→17:24)
[2022-10-26] MEDS: [UNRECOGNIZED DRUG - OTHER] GT SCH (05:05)
[2022-10-26] MEDS: CARBIDOPA/LEVODOPA 25-100MG TABLET GT SCH ×3 (05:05→21:28)
[2022-10-26] MEDS: LEVOTHYROXINE SODIUM 125 MCG TABLET PO SCH (05:05)
[2022-10-26] MEDS: FAMOTIDINE 20 MG TABLET GT SCH (05:05)
[2022-10-26] MEDS: OSMOLITE 1.2 CAL 1,000 ML LIQUID GT PRN ×2 (05:26→11:16)
[2022-10-26 08:14] VITALS: TEMP 99.4
[2022-10-26 08:20] VITALS: O2SAT 98
[2022-10-26] MEDS: HYDROGEN PEROXIDE 3% 118 ML BOTTLE TP SCH ×2 (09:00→19:08)
[2022-10-26] MEDS: [UNRECOGNIZED DRUG - OTHER] GT SCH ×2 (09:56→21:28)
[2022-10-26] MEDS: [UNRECOGNIZED DRUG - OTHER] GT SCH (09:58)
[2022-10-26] MEDS: VITAMINS A AND D OINT 42 GM TUBE TP SCH (09:58)
[2022-10-26] MEDS: COD LIVER OIL/ZINC OXIDE OINT 113 GM TUBE TP SCH ×2 (09:58→21:28)
[2022-10-26 15:11] VITALS: O2SAT 98
[2022-10-26 20:00] VITALS: TEMP 97.4
[2022-10-26 20:16] VITALS: O2SAT 97
[2022-10-26] MEDS: PROTEIN SUPPLEMENT (PROSTAT) 30 ML LIQUID GT SCH (21:00)
[2022-10-26] MEDS: MINERAL OIL/PETROLAT OPHT OINT 3.5 GM TUBE EACHEYE SCH (21:27)
[2022-10-27] MEDS: POLYVINYL ALCOHOL OPHT DROPS 15 ML BOTTLE EACHEYE SCH ×6 (03:30→23:00)
[2022-10-27] MEDS: LEVOTHYROXINE SODIUM 125 MCG TABLET PO SCH (05:38)
[2022-10-27] MEDS: FAMOTIDINE 20 MG TABLET GT SCH (05:38)
[2022-10-27] MEDS: CARBIDOPA/LEVODOPA 25-100MG TABLET GT SCH ×3 (05:38→21:07)
[2022-10-27] MEDS: [UNRECOGNIZED DRUG - OTHER] GT SCH (05:40)
[2022-10-27] MEDS: CALCIUM CARB/VITAMIN D 600-400 MG TABLET GT SCH ×2 (05:47→17:09)
[2022-10-27] MEDS: HYDROGEN PEROXIDE 3% 118 ML BOTTLE TP SCH ×2 (07:31→19:04)
[2022-10-27 07:59] VITALS: TEMP 97.9
[2022-10-27] MEDS: VITAMINS A AND D OINT 42 GM TUBE TP SCH (08:49)
[2022-10-27] MEDS: COD LIVER OIL/ZINC OXIDE OINT 113 GM TUBE TP SCH ×2 (08:49→20:55)
[2022-10-27] MEDS: [UNRECOGNIZED DRUG - OTHER] GT SCH ×2 (08:49→20:55)
[2022-10-27] MEDS: [UNRECOGNIZED DRUG - OTHER] GT SCH (08:49)
[2022-10-27 09:13] VITALS: O2SAT 98
[2022-10-27] MEDS: OSMOLITE 1.2 CAL 1,000 ML LIQUID GT PRN (11:46)
[2022-10-27 20:00] VITALS: TEMP 98.8
[2022-10-27 20:20] VITALS: O2SAT 97
[2022-10-27] MEDS: PROTEIN SUPPLEMENT (PROSTAT) 30 ML LIQUID GT SCH (20:55)
[2022-10-27] MEDS: MINERAL OIL/PETROLAT OPHT OINT 3.5 GM TUBE EACHEYE SCH (20:56)
[2022-10-28] MEDS: POLYVINYL ALCOHOL OPHT DROPS 15 ML BOTTLE EACHEYE SCH ×6 (03:30→23:30)
[2022-10-28] MEDS: [UNRECOGNIZED DRUG - OTHER] GT SCH (05:27)
[2022-10-28] MEDS: FAMOTIDINE 20 MG TABLET GT SCH (05:27)
[2022-10-28] MEDS: LEVOTHYROXINE SODIUM 125 MCG TABLET PO SCH (05:27)
[2022-10-28] MEDS: CALCIUM CARB/VITAMIN D 600-400 MG TABLET GT SCH ×2 (05:27→17:08)
[2022-10-28] MEDS: CARBIDOPA/LEVODOPA 25-100MG TABLET GT SCH ×3 (05:27→21:00)
[2022-10-28] MEDS: HYDROGEN PEROXIDE 3% 118 ML BOTTLE TP SCH ×2 (07:05→19:05)
[2022-10-28 07:31] VITALS: TEMP 97.8
[2022-10-28 07:40] VITALS: O2SAT 98
[2022-10-28] MEDS: [UNRECOGNIZED DRUG - OTHER] GT SCH ×2 (09:27→21:00)
[2022-10-28] MEDS: VITAMINS A AND D OINT 42 GM TUBE TP SCH (09:27)
[2022-10-28] MEDS: COD LIVER OIL/ZINC OXIDE OINT 113 GM TUBE TP SCH ×2 (09:27→21:00)
[2022-10-28] MEDS: [UNRECOGNIZED DRUG - OTHER] GT SCH (09:27)
[2022-10-28] MEDS: OSMOLITE 1.2 CAL 1,000 ML LIQUID GT PRN (09:29)
[2022-10-28] MEDS: diphenhydrAMINE 25 MG/10 ML UDC GT PRN (16:56)
[2022-10-28 19:35] VITALS: O2SAT 97
[2022-10-28 20:00] VITALS: TEMP 98.3
[2022-10-28] MEDS: PROTEIN SUPPLEMENT (PROSTAT) 30 ML LIQUID GT SCH (21:00)
[2022-10-28] MEDS: MINERAL OIL/PETROLAT OPHT OINT 3.5 GM TUBE EACHEYE SCH (21:00)
[2022-10-29] MEDS: POLYVINYL ALCOHOL OPHT DROPS 15 ML BOTTLE EACHEYE SCH ×6 (03:30→23:39)
[2022-10-29] MEDS: OSMOLITE 1.2 CAL 1,000 ML LIQUID GT PRN (04:42)
[2022-10-29] MEDS: diphenhydrAMINE 25 MG/10 ML UDC GT PRN (04:58)
[2022-10-29] MEDS: LOPERAMIDE HCL 2 MG/15 ML GT PRN (04:58)
[2022-10-29] MEDS: LEVOTHYROXINE SODIUM 125 MCG TABLET PO SCH (05:07)
[2022-10-29] MEDS: CARBIDOPA/LEVODOPA 25-100MG TABLET GT SCH ×3 (05:07→21:26)
[2022-10-29] MEDS: [UNRECOGNIZED DRUG - OTHER] GT SCH (05:07)
[2022-10-29] MEDS: CALCIUM CARB/VITAMIN D 600-400 MG TABLET GT SCH ×2 (05:07→17:54)
[2022-10-29] MEDS: FAMOTIDINE 20 MG TABLET GT SCH (06:04)
[2022-10-29 07:24] VITALS: TEMP 97.6
[2022-10-29] MEDS: [UNRECOGNIZED DRUG - OTHER] GT SCH ×2 (08:13→21:26)
[2022-10-29] MEDS: [UNRECOGNIZED DRUG - OTHER] GT SCH (08:14)
[2022-10-29] MEDS: COD LIVER OIL/ZINC OXIDE OINT 113 GM TUBE TP SCH ×2 (08:15→21:26)
[2022-10-29] MEDS: VITAMINS A AND D OINT 42 GM TUBE TP SCH (08:15)
[2022-10-29] MEDS: HYDROGEN PEROXIDE 3% 118 ML BOTTLE TP SCH ×2 (09:00→19:09)
[2022-10-29 10:50] VITALS: O2SAT 98
[2022-10-29 19:40] VITALS: O2SAT 97
[2022-10-29 20:18] VITALS: TEMP 98
[2022-10-29] MEDS: PROTEIN SUPPLEMENT (PROSTAT) 30 ML LIQUID GT SCH (21:26)
[2022-10-29] MEDS: MINERAL OIL/PETROLAT OPHT OINT 3.5 GM TUBE EACHEYE SCH (21:26)
[2022-10-30] MEDS: POLYVINYL ALCOHOL OPHT DROPS 15 ML BOTTLE EACHEYE SCH ×6 (03:30→23:30)
[2022-10-30] MEDS: OSMOLITE 1.2 CAL 1,000 ML LIQUID GT PRN (04:30)
[2022-10-30] MEDS: CARBIDOPA/LEVODOPA 25-100MG TABLET GT SCH ×3 (06:17→21:33)
[2022-10-30] MEDS: CALCIUM CARB/VITAMIN D 600-400 MG TABLET GT SCH ×2 (06:17→18:05)
[2022-10-30] MEDS: ALENDRONATE SODIUM 70 MG GT SCH (06:17)
[2022-10-30] MEDS: LEVOTHYROXINE SODIUM 125 MCG TABLET PO SCH (06:17)
[2022-10-30] MEDS: [UNRECOGNIZED DRUG - OTHER] GT SCH (06:17)
[2022-10-30] MEDS: FAMOTIDINE 20 MG TABLET GT SCH (06:17)
[2022-10-30 07:24] VITALS: TEMP 98.4
[2022-10-30] MEDS: HYDROGEN PEROXIDE 3% 118 ML BOTTLE TP SCH ×2 (08:50→21:12)
[2022-10-30] MEDS: [UNRECOGNIZED DRUG - OTHER] GT SCH ×2 (09:21→21:33)
[2022-10-30] MEDS: [UNRECOGNIZED DRUG - OTHER] GT SCH (09:25)
[2022-10-30] MEDS: VITAMINS A AND D OINT 42 GM TUBE TP SCH (09:25)
[2022-10-30] MEDS: COD LIVER OIL/ZINC OXIDE OINT 113 GM TUBE TP SCH ×2 (09:25→21:33)
[2022-10-30 14:13] VITALS: O2SAT 98
[2022-10-30] MEDS: diphenhydrAMINE 25 MG/10 ML UDC GT PRN (18:13)
[2022-10-30 19:55] VITALS: TEMP 98
[2022-10-30 20:10] VITALS: O2SAT 98
[2022-10-30] MEDS: MINERAL OIL/PETROLAT OPHT OINT 3.5 GM TUBE EACHEYE SCH (21:33)
[2022-10-30] MEDS: PROTEIN SUPPLEMENT (PROSTAT) 30 ML LIQUID GT SCH (21:33)
[2022-10-31] MEDS: POLYVINYL ALCOHOL OPHT DROPS 15 ML BOTTLE EACHEYE SCH ×6 (03:30→23:28)
[2022-10-31] MEDS: OSMOLITE 1.2 CAL 1,000 ML LIQUID GT PRN (04:19)
[2022-10-31] MEDS: CALCIUM CARB/VITAMIN D 600-400 MG TABLET GT SCH ×2 (06:00→17:06)
[2022-10-31] MEDS: LEVOTHYROXINE SODIUM 125 MCG TABLET PO SCH (06:00)
[2022-10-31] MEDS: CARBIDOPA/LEVODOPA 25-100MG TABLET GT SCH ×3 (06:00→21:24)
[2022-10-31] MEDS: [UNRECOGNIZED DRUG - OTHER] GT SCH (06:00)
[2022-10-31] MEDS: FAMOTIDINE 20 MG TABLET GT SCH (06:30)
[2022-10-31 07:49] VITALS: BP 135/62; TEMP 98.2; O2SAT 96
[2022-10-31 08:05] VITALS: O2SAT 98
[2022-10-31] MEDS: COD LIVER OIL/ZINC OXIDE OINT 113 GM TUBE TP SCH ×2 (08:53→21:24)
[2022-10-31] MEDS: VITAMINS A AND D OINT 42 GM TUBE TP SCH (08:53)
[2022-10-31] MEDS: [UNRECOGNIZED DRUG - OTHER] GT SCH (08:53)
[2022-10-31] MEDS: [UNRECOGNIZED DRUG - OTHER] GT SCH ×2 (08:53→21:23)
[2022-10-31] MEDS: HYDROGEN PEROXIDE 3% 118 ML BOTTLE TP SCH ×2 (09:00→19:15)
[2022-10-31 14:23] VITALS: O2SAT 98
[2022-10-31 19:40] VITALS: O2SAT 98
[2022-10-31 21:07] VITALS: TEMP 98.8
[2022-10-31] MEDS: MINERAL OIL/PETROLAT OPHT OINT 3.5 GM TUBE EACHEYE SCH (21:23)
[2022-10-31] MEDS: PROTEIN SUPPLEMENT (PROSTAT) 30 ML LIQUID GT SCH (21:23)
[2022-11-01] MEDS: OSMOLITE 1.2 CAL 1,000 ML LIQUID GT PRN (02:44)
[2022-11-01] MEDS: POLYVINYL ALCOHOL OPHT DROPS 15 ML BOTTLE EACHEYE SCH ×6 (03:30→23:18)
[2022-11-01] MEDS: [UNRECOGNIZED DRUG - OTHER] GT SCH (05:26)
[2022-11-01] MEDS: CALCIUM CARB/VITAMIN D 600-400 MG TABLET GT SCH ×2 (05:26→17:09)
[2022-11-01] MEDS: LEVOTHYROXINE SODIUM 125 MCG TABLET PO SCH (05:26)
[2022-11-01] MEDS: CARBIDOPA/LEVODOPA 25-100MG TABLET GT SCH ×3 (05:26→21:06)
[2022-11-01] MEDS: FAMOTIDINE 20 MG TABLET GT SCH (05:54)
[2022-11-01 07:53] VITALS: TEMP 97.6
[2022-11-01] MEDS: HYDROGEN PEROXIDE 3% 118 ML BOTTLE TP SCH ×2 (08:37→19:28)
[2022-11-01] MEDS: VITAMINS A AND D OINT 42 GM TUBE TP SCH (09:46)
[2022-11-01] MEDS: [UNRECOGNIZED DRUG - OTHER] GT SCH (09:46)
[2022-11-01] MEDS: COD LIVER OIL/ZINC OXIDE OINT 113 GM TUBE TP SCH ×2 (09:46→20:50)
[2022-11-01] MEDS: [UNRECOGNIZED DRUG - OTHER] GT SCH ×2 (09:46→20:50)
[2022-11-01 10:50] VITALS: O2SAT 98
[2022-11-01 19:45] VITALS: O2SAT 98
[2022-11-01 20:00] VITALS: TEMP 98.8
[2022-11-01] MEDS: MINERAL OIL/PETROLAT OPHT OINT 3.5 GM TUBE EACHEYE SCH (20:46)
[2022-11-01] MEDS: PROTEIN SUPPLEMENT (PROSTAT) 30 ML LIQUID GT SCH (20:50)
[2022-11-02] MEDS: OSMOLITE 1.2 CAL 1,000 ML LIQUID GT PRN (00:32)
[2022-11-02] MEDS: POLYVINYL ALCOHOL OPHT DROPS 15 ML BOTTLE EACHEYE SCH ×6 (03:30→23:59)
[2022-11-02] MEDS: CALCIUM CARB/VITAMIN D 600-400 MG TABLET GT SCH ×2 (06:07→18:45)
[2022-11-02] MEDS: CARBIDOPA/LEVODOPA 25-100MG TABLET GT SCH ×3 (06:07→22:00)
[2022-11-02] MEDS: FAMOTIDINE 20 MG TABLET GT SCH (06:07)
[2022-11-02] MEDS: LEVOTHYROXINE SODIUM 125 MCG TABLET PO SCH (06:07)
[2022-11-02] MEDS: [UNRECOGNIZED DRUG - OTHER] GT SCH (06:07)
[2022-11-02] MEDS: HYDROGEN PEROXIDE 3% 118 ML BOTTLE TP SCH ×2 (07:18→19:40)
[2022-11-02 07:36] VITALS: TEMP 97.3
[2022-11-02 07:40] VITALS: O2SAT 98
[2022-11-02] MEDS: COD LIVER OIL/ZINC OXIDE OINT 113 GM TUBE TP SCH ×2 (08:31→20:05)
[2022-11-02] MEDS: VITAMINS A AND D OINT 42 GM TUBE TP SCH (08:31)
[2022-11-02] MEDS: [UNRECOGNIZED DRUG - OTHER] GT SCH ×2 (08:31→20:05)
[2022-11-02] MEDS: [UNRECOGNIZED DRUG - OTHER] GT SCH (08:31)
[2022-11-02 20:00] VITALS: TEMP 98.7
[2022-11-02] MEDS: MINERAL OIL/PETROLAT OPHT OINT 3.5 GM TUBE EACHEYE SCH (20:05)
[2022-11-02] MEDS: PROTEIN SUPPLEMENT (PROSTAT) 30 ML LIQUID GT SCH (20:05)
[2022-11-02 20:20] VITALS: O2SAT 98
[2022-11-03] MEDS: POLYVINYL ALCOHOL OPHT DROPS 15 ML BOTTLE EACHEYE SCH ×6 (03:30→23:30)
[2022-11-03] MEDS: CARBIDOPA/LEVODOPA 25-100MG TABLET GT SCH ×3 (05:24→21:07)
[2022-11-03] MEDS: LEVOTHYROXINE SODIUM 125 MCG TABLET PO SCH (05:24)
[2022-11-03] MEDS: CALCIUM CARB/VITAMIN D 600-400 MG TABLET GT SCH ×2 (05:25→17:42)
[2022-11-03] MEDS: FAMOTIDINE 20 MG TABLET GT SCH (05:25)
[2022-11-03] MEDS: [UNRECOGNIZED DRUG - OTHER] GT SCH (05:32)
[2022-11-03 07:29] VITALS: TEMP 98.9
[2022-11-03] MEDS: HYDROGEN PEROXIDE 3% 118 ML BOTTLE TP SCH ×2 (08:03→19:09)
[2022-11-03] MEDS: VITAMINS A AND D OINT 42 GM TUBE TP SCH (08:36)
[2022-11-03] MEDS: COD LIVER OIL/ZINC OXIDE OINT 113 GM TUBE TP SCH ×2 (08:36→20:33)
[2022-11-03] MEDS: [UNRECOGNIZED DRUG - OTHER] GT SCH (08:36)
[2022-11-03] MEDS: [UNRECOGNIZED DRUG - OTHER] GT SCH ×2 (08:36→20:33)
[2022-11-03 12:02] VITALS: O2SAT 98
[2022-11-03 19:30] VITALS: O2SAT 98
[2022-11-03] MEDS: MINERAL OIL/PETROLAT OPHT OINT 3.5 GM TUBE EACHEYE SCH (20:33)
[2022-11-03] MEDS: PROTEIN SUPPLEMENT (PROSTAT) 30 ML LIQUID GT SCH (20:33)
[2022-11-03] MEDS: OSMOLITE 1.2 CAL 1,000 ML LIQUID GT PRN (20:35)
[2022-11-03 20:38] VITALS: TEMP 98.2
[2022-11-04] MEDS: POLYVINYL ALCOHOL OPHT DROPS 15 ML BOTTLE EACHEYE SCH ×6 (03:49→23:18)
[2022-11-04] MEDS: CALCIUM CARB/VITAMIN D 600-400 MG TABLET GT SCH ×2 (05:14→18:17)
[2022-11-04] MEDS: LEVOTHYROXINE SODIUM 125 MCG TABLET PO SCH (05:14)
[2022-11-04] MEDS: [UNRECOGNIZED DRUG - OTHER] GT SCH (05:14)
[2022-11-04] MEDS: CARBIDOPA/LEVODOPA 25-100MG TABLET GT SCH ×3 (05:14→22:28)
[2022-11-04] MEDS: FAMOTIDINE 20 MG TABLET GT SCH (06:01)
[2022-11-04] MEDS: HYDROGEN PEROXIDE 3% 118 ML BOTTLE TP SCH ×2 (07:09→19:04)
[2022-11-04 07:25] VITALS: TEMP 97.6
[2022-11-04] MEDS: [UNRECOGNIZED DRUG - OTHER] GT SCH ×2 (09:38→20:22)
[2022-11-04] MEDS: VITAMINS A AND D OINT 42 GM TUBE TP SCH (09:39)
[2022-11-04] MEDS: [UNRECOGNIZED DRUG - OTHER] GT SCH (09:39)
[2022-11-04] MEDS: COD LIVER OIL/ZINC OXIDE OINT 113 GM TUBE TP SCH ×2 (09:39→20:22)
[2022-11-04 10:40] VITALS: O2SAT 98
[2022-11-04 19:10] VITALS: O2SAT 98
[2022-11-04 20:02] VITALS: TEMP 98
[2022-11-04] MEDS: MINERAL OIL/PETROLAT OPHT OINT 3.5 GM TUBE EACHEYE SCH (20:22)
[2022-11-04] MEDS: PROTEIN SUPPLEMENT (PROSTAT) 30 ML LIQUID GT SCH (20:22)
[2022-11-04] MEDS: OSMOLITE 1.2 CAL 1,000 ML LIQUID GT PRN (22:29)
[2022-11-04 22:52] VITALS: TEMP 98.8
[2022-11-05] MEDS: POLYVINYL ALCOHOL OPHT DROPS 15 ML BOTTLE EACHEYE SCH ×6 (03:30→23:51)
[2022-11-05] MEDS: [UNRECOGNIZED DRUG - OTHER] GT SCH (05:05)
[2022-11-05] MEDS: CALCIUM CARB/VITAMIN D 600-400 MG TABLET GT SCH ×2 (05:05→18:09)
[2022-11-05] MEDS: CARBIDOPA/LEVODOPA 25-100MG TABLET GT SCH ×3 (05:06→22:00)
[2022-11-05] MEDS: LEVOTHYROXINE SODIUM 125 MCG TABLET PO SCH (05:06)
[2022-11-05] MEDS: FAMOTIDINE 20 MG TABLET GT SCH (05:41)
[2022-11-05 07:23] VITALS: TEMP 98.1
[2022-11-05 07:32] VITALS: O2SAT 98
[2022-11-05] MEDS: COD LIVER OIL/ZINC OXIDE OINT 113 GM TUBE TP SCH ×2 (08:15→20:11)
[2022-11-05] MEDS: [UNRECOGNIZED DRUG - OTHER] GT SCH ×2 (08:15→20:11)
[2022-11-05] MEDS: VITAMINS A AND D OINT 42 GM TUBE TP SCH (08:15)
[2022-11-05] MEDS: [UNRECOGNIZED DRUG - OTHER] GT SCH (08:15)
[2022-11-05] MEDS: HYDROGEN PEROXIDE 3% 118 ML BOTTLE TP SCH ×2 (09:14→19:11)
[2022-11-05 15:36] VITALS: O2SAT 98
[2022-11-05] MEDS: diphenhydrAMINE 25 MG/10 ML UDC GT PRN (18:10)
[2022-11-05 20:00] VITALS: TEMP 98.8
[2022-11-05] MEDS: MINERAL OIL/PETROLAT OPHT OINT 3.5 GM TUBE EACHEYE SCH (20:10)
[2022-11-05] MEDS: PROTEIN SUPPLEMENT (PROSTAT) 30 ML LIQUID GT SCH (20:11)
[2022-11-05 20:25] VITALS: O2SAT 98
[2022-11-05] MEDS: OSMOLITE 1.2 CAL 1,000 ML LIQUID GT PRN (23:07)
[2022-11-06] MEDS: POLYVINYL ALCOHOL OPHT DROPS 15 ML BOTTLE EACHEYE SCH ×6 (03:30→23:30)
[2022-11-06] MEDS: ALENDRONATE SODIUM 70 MG GT SCH (06:39)
[2022-11-06] MEDS: CALCIUM CARB/VITAMIN D 600-400 MG TABLET GT SCH ×2 (06:39→17:21)
[2022-11-06] MEDS: FAMOTIDINE 20 MG TABLET GT SCH (06:39)
[2022-11-06] MEDS: CARBIDOPA/LEVODOPA 25-100MG TABLET GT SCH ×3 (06:39→22:38)
[2022-11-06] MEDS: [UNRECOGNIZED DRUG - OTHER] GT SCH (06:39)
[2022-11-06] MEDS: LEVOTHYROXINE SODIUM 125 MCG TABLET PO SCH (06:39)
[2022-11-06] MEDS: HYDROGEN PEROXIDE 3% 118 ML BOTTLE TP SCH ×2 (07:19→19:22)
[2022-11-06 07:29] VITALS: TEMP 98.2
[2022-11-06] MEDS: COD LIVER OIL/ZINC OXIDE OINT 113 GM TUBE TP SCH ×2 (09:07→21:00)
[2022-11-06] MEDS: [UNRECOGNIZED DRUG - OTHER] GT SCH ×2 (09:07→21:00)
[2022-11-06] MEDS: VITAMINS A AND D OINT 42 GM TUBE TP SCH (09:07)
[2022-11-06] MEDS: [UNRECOGNIZED DRUG - OTHER] GT SCH (09:08)
[2022-11-06 10:28] VITALS: O2SAT 98
[2022-11-06 15:40] VITALS: O2SAT 98
[2022-11-06] MEDS: PROTEIN SUPPLEMENT (PROSTAT) 30 ML LIQUID GT SCH (21:00)
[2022-11-06] MEDS: MINERAL OIL/PETROLAT OPHT OINT 3.5 GM TUBE EACHEYE SCH (21:00)
[2022-11-06 23:40] VITALS: TEMP 98.8
[2022-11-07 02:00] VITALS: O2SAT 97
[2022-11-07] MEDS: POLYVINYL ALCOHOL OPHT DROPS 15 ML BOTTLE EACHEYE SCH ×6 (03:59→23:15)
[2022-11-07] MEDS: CALCIUM CARB/VITAMIN D 600-400 MG TABLET GT SCH ×2 (05:07→18:00)
[2022-11-07] MEDS: CARBIDOPA/LEVODOPA 25-100MG TABLET GT SCH ×3 (05:07→21:58)
[2022-11-07] MEDS: [UNRECOGNIZED DRUG - OTHER] GT SCH (05:07)
[2022-11-07] MEDS: LEVOTHYROXINE SODIUM 125 MCG TABLET PO SCH (05:07)
[2022-11-07] MEDS: FAMOTIDINE 20 MG TABLET GT SCH (06:05)
[2022-11-07 07:47] VITALS: TEMP 97.2
[2022-11-07 08:25] VITALS: O2SAT 98
[2022-11-07] MEDS: [UNRECOGNIZED DRUG - OTHER] GT SCH ×2 (08:46→20:23)
[2022-11-07] MEDS: [UNRECOGNIZED DRUG - OTHER] GT SCH (08:46)
[2022-11-07] MEDS: HYDROGEN PEROXIDE 3% 118 ML BOTTLE TP SCH ×2 (09:00→19:26)
[2022-11-07] MEDS: VITAMINS A AND D OINT 42 GM TUBE TP SCH (09:30)
[2022-11-07] MEDS: COD LIVER OIL/ZINC OXIDE OINT 113 GM TUBE TP SCH ×2 (09:30→20:24)
[2022-11-07 16:20] VITALS: O2SAT 98
[2022-11-07 19:20] VITALS: O2SAT 97
[2022-11-07] MEDS: MINERAL OIL/PETROLAT OPHT OINT 3.5 GM TUBE EACHEYE SCH (20:23)
[2022-11-07] MEDS: PROTEIN SUPPLEMENT (PROSTAT) 30 ML LIQUID GT SCH (20:24)
[2022-11-07 21:41] VITALS: TEMP 98.7
[2022-11-07] MEDS: OSMOLITE 1.2 CAL 1,000 ML LIQUID GT PRN (23:15)
[2022-11-07] MEDS: diphenhydrAMINE 25 MG/10 ML UDC GT PRN (23:15)
[2022-11-08] MEDS: POLYVINYL ALCOHOL OPHT DROPS 15 ML BOTTLE EACHEYE SCH ×6 (03:30→23:30)
[2022-11-08] MEDS: [UNRECOGNIZED DRUG - OTHER] GT SCH (05:25)
[2022-11-08] MEDS: LEVOTHYROXINE SODIUM 125 MCG TABLET PO SCH (05:25)
[2022-11-08] MEDS: CARBIDOPA/LEVODOPA 25-100MG TABLET GT SCH ×3 (05:25→22:07)
[2022-11-08] MEDS: CALCIUM CARB/VITAMIN D 600-400 MG TABLET GT SCH ×2 (05:25→18:02)
[2022-11-08] MEDS: FAMOTIDINE 20 MG TABLET GT SCH (05:35)
[2022-11-08 07:32] VITALS: TEMP 97.6
[2022-11-08] MEDS: [UNRECOGNIZED DRUG - OTHER] GT SCH (08:46)
[2022-11-08] MEDS: COD LIVER OIL/ZINC OXIDE OINT 113 GM TUBE TP SCH ×2 (08:46→20:30)
[2022-11-08] MEDS: [UNRECOGNIZED DRUG - OTHER] GT SCH ×2 (08:46→20:30)
[2022-11-08] MEDS: VITAMINS A AND D OINT 42 GM TUBE TP SCH (08:46)
[2022-11-08] MEDS: HYDROGEN PEROXIDE 3% 118 ML BOTTLE TP SCH ×2 (09:00→21:21)
[2022-11-08 10:30] VITALS: O2SAT 98
[2022-11-08 20:00] VITALS: TEMP 98.3
[2022-11-08 20:15] VITALS: O2SAT 99
[2022-11-08] MEDS: MINERAL OIL/PETROLAT OPHT OINT 3.5 GM TUBE EACHEYE SCH (20:30)
[2022-11-08] MEDS: PROTEIN SUPPLEMENT (PROSTAT) 30 ML LIQUID GT SCH (20:30)
[2022-11-09] MEDS: OSMOLITE 1.2 CAL 1,000 ML LIQUID GT PRN (02:45)
[2022-11-09] MEDS: POLYVINYL ALCOHOL OPHT DROPS 15 ML BOTTLE EACHEYE SCH ×6 (03:30→23:30)
[2022-11-09] MEDS: [UNRECOGNIZED DRUG - OTHER] GT SCH (05:32)
[2022-11-09] MEDS: CALCIUM CARB/VITAMIN D 600-400 MG TABLET GT SCH ×2 (05:32→18:40)
[2022-11-09] MEDS: CARBIDOPA/LEVODOPA 25-100MG TABLET GT SCH ×3 (05:32→22:04)
[2022-11-09] MEDS: FAMOTIDINE 20 MG TABLET GT SCH (05:32)
[2022-11-09] MEDS: LEVOTHYROXINE SODIUM 125 MCG TABLET PO SCH (05:32)
[2022-11-09 07:34] VITALS: TEMP 98.3
[2022-11-09] MEDS: HYDROGEN PEROXIDE 3% 118 ML BOTTLE TP SCH ×2 (07:36→21:48)
[2022-11-09] MEDS: [UNRECOGNIZED DRUG - OTHER] GT SCH ×2 (08:35→20:27)
[2022-11-09] MEDS: COD LIVER OIL/ZINC OXIDE OINT 113 GM TUBE TP SCH ×2 (08:36→20:27)
[2022-11-09] MEDS: [UNRECOGNIZED DRUG - OTHER] GT SCH (08:36)
[2022-11-09] MEDS: VITAMINS A AND D OINT 42 GM TUBE TP SCH (08:36)
[2022-11-09] MEDS: diphenhydrAMINE 25 MG/10 ML UDC GT PRN (08:37)
[2022-11-09] MEDS: NYSTATIN CREAM 30 GM TUBE TP SCH ×2 (09:00→20:28)
[2022-11-09] MEDS: TRIAMCINOLONE ACET 0.1% CREAM 15 GM TUBE TP SCH ×2 (09:00→20:28)
[2022-11-09 10:35] VITALS: O2SAT 98
[2022-11-09 20:00] VITALS: TEMP 98.4
[2022-11-09] MEDS: PROTEIN SUPPLEMENT (PROSTAT) 30 ML LIQUID GT SCH (20:27)
[2022-11-09] MEDS: MINERAL OIL/PETROLAT OPHT OINT 3.5 GM TUBE EACHEYE SCH (20:27)
[2022-11-10 00:30] VITALS: O2SAT 99
[2022-11-10] MEDS: OSMOLITE 1.2 CAL 1,000 ML LIQUID GT PRN (01:10)
[2022-11-10] MEDS: POLYVINYL ALCOHOL OPHT DROPS 15 ML BOTTLE EACHEYE SCH ×6 (04:29→23:30)
[2022-11-10] MEDS: LEVOTHYROXINE SODIUM 125 MCG TABLET PO SCH (05:29)
[2022-11-10] MEDS: [UNRECOGNIZED DRUG - OTHER] GT SCH (05:29)
[2022-11-10] MEDS: CARBIDOPA/LEVODOPA 25-100MG TABLET GT SCH ×3 (05:29→21:12)
[2022-11-10] MEDS: CALCIUM CARB/VITAMIN D 600-400 MG TABLET GT SCH ×2 (05:29→17:46)
[2022-11-10] MEDS: FAMOTIDINE 20 MG TABLET GT SCH (05:30)
[2022-11-10 07:41] VITALS: TEMP 98.2
[2022-11-10 08:30] VITALS: O2SAT 98
[2022-11-10] MEDS: [UNRECOGNIZED DRUG - OTHER] GT SCH (08:34)
[2022-11-10] MEDS: [UNRECOGNIZED DRUG - OTHER] GT SCH ×2 (08:34→20:12)
[2022-11-10] MEDS: COD LIVER OIL/ZINC OXIDE OINT 113 GM TUBE TP SCH ×2 (08:34→20:12)
[2022-11-10] MEDS: VITAMINS A AND D OINT 42 GM TUBE TP SCH (08:35)
[2022-11-10] MEDS: NYSTATIN CREAM 30 GM TUBE TP SCH ×2 (08:35→20:25)
[2022-11-10] MEDS: TRIAMCINOLONE ACET 0.1% CREAM 15 GM TUBE TP SCH ×2 (08:35→20:25)
[2022-11-10] MEDS: HYDROGEN PEROXIDE 3% 118 ML BOTTLE TP SCH ×2 (09:21→19:09)
[2022-11-10 20:00] VITALS: TEMP 100.3
[2022-11-10] MEDS: PROTEIN SUPPLEMENT (PROSTAT) 30 ML LIQUID GT SCH (20:12)
[2022-11-10] MEDS: MINERAL OIL/PETROLAT OPHT OINT 3.5 GM TUBE EACHEYE SCH (20:12)
[2022-11-10 20:28] VITALS: O2SAT 97
[2022-11-11] MEDS: OSMOLITE 1.2 CAL 1,000 ML LIQUID GT PRN (02:09)
[2022-11-11] MEDS: POLYVINYL ALCOHOL OPHT DROPS 15 ML BOTTLE EACHEYE SCH ×6 (03:30→23:02)
[2022-11-11] MEDS: [UNRECOGNIZED DRUG - OTHER] GT SCH (05:24)
[2022-11-11] MEDS: CALCIUM CARB/VITAMIN D 600-400 MG TABLET GT SCH ×2 (05:24→17:24)
[2022-11-11] MEDS: CARBIDOPA/LEVODOPA 25-100MG TABLET GT SCH ×3 (05:24→21:40)
[2022-11-11] MEDS: LEVOTHYROXINE SODIUM 125 MCG TABLET PO SCH (05:24)
[2022-11-11] MEDS: FAMOTIDINE 20 MG TABLET GT SCH (05:36)
[2022-11-11 07:12] LABS: BASOPHILS % (AUTO) 0.7 % (0.0-2.0); EOSINOPHILS # (AUTO) 0.2 K/uL (0.0-0.7); EOSINOPHILS % (AUTO) 2.7 % (0.0-7.0); HEMATOCRIT 35.8 % (31.2-41.9); LYMPHOCYTES # (AUTO) 2.2 K/uL (0.8-4.8); LYMPHOCYTES % (AUTO) 33.8 % (20.5-51.5); MEAN CORPUSCULAR HEMOGLOBIN 28.8 uug (24.7-32.8); MEAN CORPUSCULAR HGB CONC 34 g/dL (32.3-35.6); MEAN CORPUSCULAR VOLUME 85.8 fL (75.5-95.3); MONOCYTES # (AUTO) 0.8 K/uL (0.1-1.30); MONOCYTES % (AUTO) 12.2 % (0.0-11.0); NEUTROPHILS # (AUTO) 3.3 K/uL (1.8-8.9); NEUTROPHILS % (AUTO) 50.6 % (38.5-71.5); PLATELET COUNT (AUTO) 259 K/uL (179-408); RED BLOOD CELL COUNT(AUTO) 4.17 MIL/uL (3.63-4.92); RED CELL DISTRIBUTION WIDTH 16.2 % (12.3-17.7); WHITE BLOOD COUNT (AUTO) 6.5 K/uL (3.8-11.8)
[2022-11-11 07:23] VITALS: TEMP 98.4
[2022-11-11 07:26] LABS: DIFFERENTIAL COMMENT 1
[2022-11-11 07:50] LABS: ALANINE AMINOTRANSFERASE < 6 U/L (14-59); ALBUMIN 2.9 g/dL (3.4-5.0); ALKALINE PHOSPHATASE 69 U/L (50-136); ASPARTATE AMINOTRANSFERASE 17 U/L (15-37); BILIRUBIN,TOTAL 0.3 mg/dL (0.2-1.0); CALCIUM 8.7 mg/dL (8.5-10.1); CARBON DIOXIDE 35 mmol/L (21-32); CHLORIDE 102 mmol/L (98-107); GLUCOSE 101 mg/dL (74-106); MAGNESIUM 2.1 mg/dL (1.8-2.4); PHOSPHOROUS 4.3 mg/dL (2.5-4.9); POTASSIUM 4.3 mmol/L (3.5-5.1); SODIUM SERUM 140 mmol/L (136-145); TOTAL PROTEIN, SERUM 7.8 g/dL (6.4-8.2); UREA NITROGEN, BLOOD 25 mg/dL (7-18)
[2022-11-11] MEDS: HYDROGEN PEROXIDE 3% 118 ML BOTTLE TP SCH ×2 (07:54→18:49)
[2022-11-11 07:55] VITALS: O2SAT 98
[2022-11-11] MEDS: NYSTATIN CREAM 30 GM TUBE TP SCH ×2 (09:00→20:26)
[2022-11-11] MEDS: VITAMINS A AND D OINT 42 GM TUBE TP SCH (09:00)
[2022-11-11] MEDS: COD LIVER OIL/ZINC OXIDE OINT 113 GM TUBE TP SCH ×2 (09:00→20:26)
[2022-11-11] MEDS: [UNRECOGNIZED DRUG - OTHER] GT SCH ×2 (09:00→20:26)
[2022-11-11] MEDS: [UNRECOGNIZED DRUG - OTHER] GT SCH (09:00)
[2022-11-11] MEDS: TRIAMCINOLONE ACET 0.1% CREAM 15 GM TUBE TP SCH ×2 (09:00→20:26)
[2022-11-11 15:17] VITALS: O2SAT 98
[2022-11-11] MEDS: CICLOPIROX 0.77% CREAM 30 GM TUBE TP SCH (17:27)
[2022-11-11 20:00] VITALS: TEMP 98.7; O2SAT 99
[2022-11-11] MEDS: MINERAL OIL/PETROLAT OPHT OINT 3.5 GM TUBE EACHEYE SCH (20:26)
[2022-11-11] MEDS: PROTEIN SUPPLEMENT (PROSTAT) 30 ML LIQUID GT SCH (20:26)
[2022-11-12] MEDS: OSMOLITE 1.2 CAL 1,000 ML LIQUID GT PRN (01:18)
[2022-11-12] MEDS: POLYVINYL ALCOHOL OPHT DROPS 15 ML BOTTLE EACHEYE SCH ×6 (03:30→23:30)
[2022-11-12] MEDS: CALCIUM CARB/VITAMIN D 600-400 MG TABLET GT SCH ×2 (05:08→18:46)
[2022-11-12] MEDS: CARBIDOPA/LEVODOPA 25-100MG TABLET GT SCH ×3 (05:09→21:12)
[2022-11-12] MEDS: LEVOTHYROXINE SODIUM 125 MCG TABLET PO SCH (05:09)
[2022-11-12] MEDS: [UNRECOGNIZED DRUG - OTHER] GT SCH (05:09)
[2022-11-12] MEDS: FAMOTIDINE 20 MG TABLET GT SCH (05:43)
[2022-11-12 07:24] VITALS: TEMP 98.6
[2022-11-12] MEDS: HYDROGEN PEROXIDE 3% 118 ML BOTTLE TP SCH ×2 (07:31→21:22)
[2022-11-12] MEDS: COD LIVER OIL/ZINC OXIDE OINT 113 GM TUBE TP SCH ×2 (08:59→21:11)
[2022-11-12] MEDS: [UNRECOGNIZED DRUG - OTHER] GT SCH ×2 (08:59→21:10)
[2022-11-12] MEDS: [UNRECOGNIZED DRUG - OTHER] GT SCH (08:59)
[2022-11-12] MEDS: TRIAMCINOLONE ACET 0.1% CREAM 15 GM TUBE TP SCH ×2 (08:59→21:11)
[2022-11-12] MEDS: NYSTATIN CREAM 30 GM TUBE TP SCH ×2 (09:00→21:12)
[2022-11-12] MEDS: CICLOPIROX 0.77% CREAM 30 GM TUBE TP SCH ×2 (09:00→17:00)
[2022-11-12] MEDS: VITAMINS A AND D OINT 42 GM TUBE TP SCH (09:00)
[2022-11-12 10:30] VITALS: O2SAT 98
[2022-11-12 20:00] VITALS: TEMP 98.5
[2022-11-12] MEDS: MINERAL OIL/PETROLAT OPHT OINT 3.5 GM TUBE EACHEYE SCH (21:09)
[2022-11-12] MEDS: PROTEIN SUPPLEMENT (PROSTAT) 30 ML LIQUID GT SCH (21:10)
[2022-11-12 21:30] VITALS: O2SAT 99
[2022-11-13] MEDS: OSMOLITE 1.2 CAL 1,000 ML LIQUID GT PRN (01:39)
[2022-11-13] MEDS: POLYVINYL ALCOHOL OPHT DROPS 15 ML BOTTLE EACHEYE SCH ×6 (03:30→23:30)
[2022-11-13] MEDS: [UNRECOGNIZED DRUG - OTHER] GT SCH (06:06)
[2022-11-13] MEDS: CARBIDOPA/LEVODOPA 25-100MG TABLET GT SCH ×3 (06:06→21:00)
[2022-11-13] MEDS: FAMOTIDINE 20 MG TABLET GT SCH (06:06)
[2022-11-13] MEDS: CALCIUM CARB/VITAMIN D 600-400 MG TABLET GT SCH ×2 (06:06→18:05)
[2022-11-13] MEDS: LEVOTHYROXINE SODIUM 125 MCG TABLET PO SCH (06:06)
[2022-11-13] MEDS: ALENDRONATE SODIUM 70 MG GT SCH (06:06)
[2022-11-13 07:30] VITALS: TEMP 98.5
[2022-11-13] MEDS: HYDROGEN PEROXIDE 3% 118 ML BOTTLE TP SCH ×2 (08:18→19:10)
[2022-11-13] MEDS: [UNRECOGNIZED DRUG - OTHER] GT SCH ×2 (09:06→20:56)
[2022-11-13] MEDS: COD LIVER OIL/ZINC OXIDE OINT 113 GM TUBE TP SCH ×2 (09:06→20:56)
[2022-11-13] MEDS: [UNRECOGNIZED DRUG - OTHER] GT SCH (09:06)
[2022-11-13] MEDS: TRIAMCINOLONE ACET 0.1% CREAM 15 GM TUBE TP SCH ×2 (09:07→20:56)
[2022-11-13] MEDS: CICLOPIROX 0.77% CREAM 30 GM TUBE TP SCH ×2 (09:07→17:00)
[2022-11-13] MEDS: NYSTATIN CREAM 30 GM TUBE TP SCH ×2 (09:08→20:56)
[2022-11-13] MEDS: VITAMINS A AND D OINT 42 GM TUBE TP SCH (09:08)
[2022-11-13] MEDS: LOPERAMIDE HCL 2 MG/15 ML GT PRN (10:19)
[2022-11-13 16:31] VITALS: O2SAT 98
[2022-11-13] MEDS: diphenhydrAMINE 25 MG/10 ML UDC GT PRN (18:20)
[2022-11-13 20:00] VITALS: TEMP 98.3
[2022-11-13 20:06] VITALS: O2SAT 99
[2022-11-13] MEDS: PROTEIN SUPPLEMENT (PROSTAT) 30 ML LIQUID GT SCH (20:56)
[2022-11-13] MEDS: MINERAL OIL/PETROLAT OPHT OINT 3.5 GM TUBE EACHEYE SCH (20:56)
[2022-11-14] MEDS: POLYVINYL ALCOHOL OPHT DROPS 15 ML BOTTLE EACHEYE SCH ×6 (03:30→23:30)
[2022-11-14] MEDS: CALCIUM CARB/VITAMIN D 600-400 MG TABLET GT SCH ×2 (06:05→17:21)
[2022-11-14] MEDS: [UNRECOGNIZED DRUG - OTHER] GT SCH (06:05)
[2022-11-14] MEDS: FAMOTIDINE 20 MG TABLET GT SCH (06:05)
[2022-11-14] MEDS: CARBIDOPA/LEVODOPA 25-100MG TABLET GT SCH ×3 (06:05→21:05)
[2022-11-14] MEDS: LEVOTHYROXINE SODIUM 125 MCG TABLET PO SCH (06:05)
[2022-11-14] MEDS: OSMOLITE 1.2 CAL 1,000 ML LIQUID GT PRN (06:05)
[2022-11-14 08:00] VITALS: TEMP 99.6
[2022-11-14] MEDS: HYDROGEN PEROXIDE 3% 118 ML BOTTLE TP SCH ×2 (09:00→19:11)
[2022-11-14] MEDS: COD LIVER OIL/ZINC OXIDE OINT 113 GM TUBE TP SCH ×2 (09:44→21:05)
[2022-11-14] MEDS: [UNRECOGNIZED DRUG - OTHER] GT SCH ×2 (09:44→21:05)
[2022-11-14] MEDS: TRIAMCINOLONE ACET 0.1% CREAM 15 GM TUBE TP SCH ×2 (09:44→21:05)
[2022-11-14] MEDS: [UNRECOGNIZED DRUG - OTHER] GT SCH (09:44)
[2022-11-14] MEDS: CICLOPIROX 0.77% CREAM 30 GM TUBE TP SCH ×2 (09:45→16:36)
[2022-11-14] MEDS: VITAMINS A AND D OINT 42 GM TUBE TP SCH (09:45)
[2022-11-14] MEDS: NYSTATIN CREAM 30 GM TUBE TP SCH ×2 (09:45→21:05)
[2022-11-14 10:00] VITALS: O2SAT 98
[2022-11-14 20:00] VITALS: TEMP 98.8
[2022-11-14 20:40] VITALS: O2SAT 99
[2022-11-14] MEDS: MINERAL OIL/PETROLAT OPHT OINT 3.5 GM TUBE EACHEYE SCH (21:04)
[2022-11-14] MEDS: PROTEIN SUPPLEMENT (PROSTAT) 30 ML LIQUID GT SCH (21:05)
[2022-11-14] MEDS: diphenhydrAMINE 25 MG/10 ML UDC GT PRN (22:00)
[2022-11-15] MEDS: POLYVINYL ALCOHOL OPHT DROPS 15 ML BOTTLE EACHEYE SCH ×6 (04:22→23:16)
[2022-11-15] MEDS: OSMOLITE 1.2 CAL 1,000 ML LIQUID GT PRN (05:00)
[2022-11-15] MEDS: CARBIDOPA/LEVODOPA 25-100MG TABLET GT SCH ×3 (05:35→21:35)
[2022-11-15] MEDS: CALCIUM CARB/VITAMIN D 600-400 MG TABLET GT SCH ×2 (05:35→18:21)
[2022-11-15] MEDS: FAMOTIDINE 20 MG TABLET GT SCH (05:35)
[2022-11-15] MEDS: [UNRECOGNIZED DRUG - OTHER] GT SCH (05:35)
[2022-11-15] MEDS: LEVOTHYROXINE SODIUM 125 MCG TABLET PO SCH (05:35)
[2022-11-15] MEDS: HYDROGEN PEROXIDE 3% 118 ML BOTTLE TP SCH ×2 (07:57→19:10)
[2022-11-15 08:00] VITALS: TEMP 99.6
[2022-11-15] MEDS: [UNRECOGNIZED DRUG - OTHER] GT SCH ×2 (08:22→20:39)
[2022-11-15] MEDS: [UNRECOGNIZED DRUG - OTHER] GT SCH (08:23)
[2022-11-15] MEDS: COD LIVER OIL/ZINC OXIDE OINT 113 GM TUBE TP SCH ×2 (08:23→20:39)
[2022-11-15] MEDS: CICLOPIROX 0.77% CREAM 30 GM TUBE TP SCH ×2 (08:24→17:19)
[2022-11-15] MEDS: VITAMINS A AND D OINT 42 GM TUBE TP SCH (08:24)
[2022-11-15] MEDS: NYSTATIN CREAM 30 GM TUBE TP SCH ×2 (08:24→20:39)
[2022-11-15] MEDS: TRIAMCINOLONE ACET 0.1% CREAM 15 GM TUBE TP SCH ×2 (08:24→20:39)
[2022-11-15 10:32] VITALS: O2SAT 98
[2022-11-15 19:55] VITALS: O2SAT 99
[2022-11-15 20:00] VITALS: TEMP 97.8
[2022-11-15] MEDS: MINERAL OIL/PETROLAT OPHT OINT 3.5 GM TUBE EACHEYE SCH (20:37)
[2022-11-15] MEDS: PROTEIN SUPPLEMENT (PROSTAT) 30 ML LIQUID GT SCH (20:39)
[2022-11-16] MEDS: POLYVINYL ALCOHOL OPHT DROPS 15 ML BOTTLE EACHEYE SCH ×6 (03:30→23:30)
[2022-11-16] MEDS: CALCIUM CARB/VITAMIN D 600-400 MG TABLET GT SCH ×2 (05:28→18:36)
[2022-11-16] MEDS: LEVOTHYROXINE SODIUM 125 MCG TABLET PO SCH (05:28)
[2022-11-16] MEDS: [UNRECOGNIZED DRUG - OTHER] GT SCH (05:28)
[2022-11-16] MEDS: FAMOTIDINE 20 MG TABLET GT SCH (05:28)
[2022-11-16] MEDS: CARBIDOPA/LEVODOPA 25-100MG TABLET GT SCH ×3 (05:28→22:42)
[2022-11-16] MEDS: HYDROGEN PEROXIDE 3% 118 ML BOTTLE TP SCH ×2 (07:09→23:02)
[2022-11-16 08:00] VITALS: TEMP 97.5
[2022-11-16] MEDS: VITAMINS A AND D OINT 42 GM TUBE TP SCH (09:00)
[2022-11-16] MEDS: NYSTATIN CREAM 30 GM TUBE TP SCH ×2 (09:00→20:43)
[2022-11-16] MEDS: CICLOPIROX 0.77% CREAM 30 GM TUBE TP SCH ×2 (09:00→17:00)
[2022-11-16] MEDS: [UNRECOGNIZED DRUG - OTHER] GT SCH ×2 (09:37→20:41)
[2022-11-16] MEDS: TRIAMCINOLONE ACET 0.1% CREAM 15 GM TUBE TP SCH ×2 (09:38→20:43)
[2022-11-16] MEDS: COD LIVER OIL/ZINC OXIDE OINT 113 GM TUBE TP SCH ×2 (09:38→20:42)
[2022-11-16] MEDS: [UNRECOGNIZED DRUG - OTHER] GT SCH (09:38)
[2022-11-16 10:33] VITALS: O2SAT 98
[2022-11-16 20:00] VITALS: TEMP 98.4
[2022-11-16] MEDS: PROTEIN SUPPLEMENT (PROSTAT) 30 ML LIQUID GT SCH (20:41)
[2022-11-16] MEDS: MINERAL OIL/PETROLAT OPHT OINT 3.5 GM TUBE EACHEYE SCH (20:41)
[2022-11-17] MEDS: OSMOLITE 1.2 CAL 1,000 ML LIQUID GT PRN
[2022-11-17] MEDS: POLYVINYL ALCOHOL OPHT DROPS 15 ML BOTTLE EACHEYE SCH ×6 (03:43→23:50)
[2022-11-17 03:47] VITALS: O2SAT 99
[2022-11-17] MEDS: CARBIDOPA/LEVODOPA 25-100MG TABLET GT SCH ×3 (06:43→21:48)
[2022-11-17] MEDS: CALCIUM CARB/VITAMIN D 600-400 MG TABLET GT SCH ×2 (06:43→18:12)
[2022-11-17] MEDS: LEVOTHYROXINE SODIUM 125 MCG TABLET PO SCH (06:43)
[2022-11-17] MEDS: [UNRECOGNIZED DRUG - OTHER] GT SCH (06:43)
[2022-11-17] MEDS: FAMOTIDINE 20 MG TABLET GT SCH (06:43)
[2022-11-17] MEDS: HYDROGEN PEROXIDE 3% 118 ML BOTTLE TP SCH ×2 (07:13→21:07)
[2022-11-17] MEDS: [UNRECOGNIZED DRUG - OTHER] GT SCH ×2 (08:39→21:48)
[2022-11-17] MEDS: [UNRECOGNIZED DRUG - OTHER] GT SCH (08:39)
[2022-11-17] MEDS: COD LIVER OIL/ZINC OXIDE OINT 113 GM TUBE TP SCH ×2 (08:40→21:48)
[2022-11-17] MEDS: VITAMINS A AND D OINT 42 GM TUBE TP SCH (08:40)
[2022-11-17] MEDS: TRIAMCINOLONE ACET 0.1% CREAM 15 GM TUBE TP SCH ×2 (08:40→21:48)
[2022-11-17] MEDS: CICLOPIROX 0.77% CREAM 30 GM TUBE TP SCH ×2 (08:40→17:00)
[2022-11-17] MEDS: NYSTATIN CREAM 30 GM TUBE TP SCH ×2 (08:40→21:48)
[2022-11-17 10:37] VITALS: O2SAT 98
[2022-11-17 12:10] VITALS: TEMP 98.1
[2022-11-17 21:40] VITALS: TEMP 98.9
[2022-11-17] MEDS: MINERAL OIL/PETROLAT OPHT OINT 3.5 GM TUBE EACHEYE SCH (21:48)
[2022-11-17] MEDS: PROTEIN SUPPLEMENT (PROSTAT) 30 ML LIQUID GT SCH (21:48)
[2022-11-17] MEDS: diphenhydrAMINE 25 MG/10 ML UDC GT PRN (21:51)
[2022-11-18] MEDS: POLYVINYL ALCOHOL OPHT DROPS 15 ML BOTTLE EACHEYE SCH ×6 (03:42→23:30)
[2022-11-18 04:04] VITALS: O2SAT 99
[2022-11-18] MEDS: CARBIDOPA/LEVODOPA 25-100MG TABLET GT SCH ×3 (06:38→21:22)
[2022-11-18] MEDS: [UNRECOGNIZED DRUG - OTHER] GT SCH (06:38)
[2022-11-18] MEDS: CALCIUM CARB/VITAMIN D 600-400 MG TABLET GT SCH ×2 (06:38→17:54)
[2022-11-18] MEDS: LEVOTHYROXINE SODIUM 125 MCG TABLET PO SCH (06:39)
[2022-11-18] MEDS: FAMOTIDINE 20 MG TABLET GT SCH (06:39)
[2022-11-18 07:31] VITALS: TEMP 98
[2022-11-18] MEDS: HYDROGEN PEROXIDE 3% 118 ML BOTTLE TP SCH ×2 (08:03→19:09)
[2022-11-18] MEDS: [UNRECOGNIZED DRUG - OTHER] GT SCH ×2 (09:17→21:21)
[2022-11-18] MEDS: [UNRECOGNIZED DRUG - OTHER] GT SCH (09:17)
[2022-11-18] MEDS: NYSTATIN CREAM 30 GM TUBE TP SCH ×2 (09:18→21:22)
[2022-11-18] MEDS: COD LIVER OIL/ZINC OXIDE OINT 113 GM TUBE TP SCH ×2 (09:18→21:22)
[2022-11-18] MEDS: CICLOPIROX 0.77% CREAM 30 GM TUBE TP SCH ×2 (09:18→16:47)
[2022-11-18] MEDS: TRIAMCINOLONE ACET 0.1% CREAM 15 GM TUBE TP SCH ×2 (09:18→21:22)
[2022-11-18] MEDS: VITAMINS A AND D OINT 42 GM TUBE TP SCH (09:18)
[2022-11-18] MEDS: OSMOLITE 1.2 CAL 1,000 ML LIQUID GT PRN (09:20)
[2022-11-18] MEDS: diphenhydrAMINE 25 MG/10 ML UDC GT PRN (09:20)
[2022-11-18 14:16] VITALS: O2SAT 98
[2022-11-18 20:48] VITALS: TEMP 97.5
[2022-11-18 21:05] VITALS: O2SAT 99
[2022-11-18] MEDS: MINERAL OIL/PETROLAT OPHT OINT 3.5 GM TUBE EACHEYE SCH (21:21)
[2022-11-18] MEDS: PROTEIN SUPPLEMENT (PROSTAT) 30 ML LIQUID GT SCH (21:21)
[2022-11-19] MEDS: POLYVINYL ALCOHOL OPHT DROPS 15 ML BOTTLE EACHEYE SCH ×6 (03:30→23:30)
[2022-11-19] MEDS: CARBIDOPA/LEVODOPA 25-100MG TABLET GT SCH ×3 (05:52→21:38)
[2022-11-19] MEDS: FAMOTIDINE 20 MG TABLET GT SCH (05:52)
[2022-11-19] MEDS: [UNRECOGNIZED DRUG - OTHER] GT SCH (05:52)
[2022-11-19] MEDS: CALCIUM CARB/VITAMIN D 600-400 MG TABLET GT SCH ×2 (05:52→17:12)
[2022-11-19] MEDS: LEVOTHYROXINE SODIUM 125 MCG TABLET PO SCH (05:52)
[2022-11-19] MEDS: OSMOLITE 1.2 CAL 1,000 ML LIQUID GT PRN (05:53)
[2022-11-19] MEDS: HYDROGEN PEROXIDE 3% 118 ML BOTTLE TP SCH ×2 (07:11→19:10)
[2022-11-19 07:21] VITALS: TEMP 97.8
[2022-11-19] MEDS: [UNRECOGNIZED DRUG - OTHER] GT SCH ×2 (08:32→21:38)
[2022-11-19] MEDS: [UNRECOGNIZED DRUG - OTHER] GT SCH (08:33)
[2022-11-19] MEDS: COD LIVER OIL/ZINC OXIDE OINT 113 GM TUBE TP SCH ×2 (08:33→21:38)
[2022-11-19] MEDS: CICLOPIROX 0.77% CREAM 30 GM TUBE TP SCH ×2 (08:33→16:40)
[2022-11-19] MEDS: NYSTATIN CREAM 30 GM TUBE TP SCH ×2 (08:33→21:38)
[2022-11-19] MEDS: VITAMINS A AND D OINT 42 GM TUBE TP SCH (08:33)
[2022-11-19] MEDS: TRIAMCINOLONE ACET 0.1% CREAM 15 GM TUBE TP SCH ×2 (09:00→21:38)
[2022-11-19 10:40] VITALS: O2SAT 98
[2022-11-19] MEDS: LOPERAMIDE HCL 2 MG/15 ML GT PRN (14:21)
[2022-11-19 19:45] VITALS: O2SAT 99
[2022-11-19 20:47] VITALS: TEMP 98.1
[2022-11-19] MEDS: PROTEIN SUPPLEMENT (PROSTAT) 30 ML LIQUID GT SCH (21:38)
[2022-11-19] MEDS: MINERAL OIL/PETROLAT OPHT OINT 3.5 GM TUBE EACHEYE SCH (21:38)
[2022-11-20] MEDS: POLYVINYL ALCOHOL OPHT DROPS 15 ML BOTTLE EACHEYE SCH ×6 (03:30→23:30)
[2022-11-20] MEDS: OSMOLITE 1.2 CAL 1,000 ML LIQUID GT PRN (04:10)
[2022-11-20] MEDS: CARBIDOPA/LEVODOPA 25-100MG TABLET GT SCH ×3 (06:27→21:22)
[2022-11-20] MEDS: ALENDRONATE SODIUM 70 MG GT SCH (06:27)
[2022-11-20] MEDS: FAMOTIDINE 20 MG TABLET GT SCH (06:27)
[2022-11-20] MEDS: [UNRECOGNIZED DRUG - OTHER] GT SCH (06:27)
[2022-11-20] MEDS: CALCIUM CARB/VITAMIN D 600-400 MG TABLET GT SCH ×2 (06:27→18:13)
[2022-11-20] MEDS: LEVOTHYROXINE SODIUM 125 MCG TABLET PO SCH (06:27)
[2022-11-20 08:00] VITALS: TEMP 97.5
[2022-11-20] MEDS: [UNRECOGNIZED DRUG - OTHER] GT SCH (08:31)
[2022-11-20] MEDS: [UNRECOGNIZED DRUG - OTHER] GT SCH ×2 (08:31→21:21)
[2022-11-20] MEDS: COD LIVER OIL/ZINC OXIDE OINT 113 GM TUBE TP SCH ×2 (08:31→21:22)
[2022-11-20 09:00] VITALS: O2SAT 98
[2022-11-20] MEDS: HYDROGEN PEROXIDE 3% 118 ML BOTTLE TP SCH ×2 (09:00→19:05)
[2022-11-20] MEDS: CICLOPIROX 0.77% CREAM 30 GM TUBE TP SCH ×2 (09:35→17:00)
[2022-11-20] MEDS: TRIAMCINOLONE ACET 0.1% CREAM 15 GM TUBE TP SCH ×2 (09:35→21:22)
[2022-11-20] MEDS: VITAMINS A AND D OINT 42 GM TUBE TP SCH (09:36)
[2022-11-20] MEDS: NYSTATIN CREAM 30 GM TUBE TP SCH ×2 (09:36→21:22)
[2022-11-20 20:55] VITALS: O2SAT 99
[2022-11-20] MEDS: MINERAL OIL/PETROLAT OPHT OINT 3.5 GM TUBE EACHEYE SCH (21:21)
[2022-11-20] MEDS: PROTEIN SUPPLEMENT (PROSTAT) 30 ML LIQUID GT SCH (21:22)
[2022-11-20 21:50] VITALS: TEMP 98.5
[2022-11-21] MEDS: POLYVINYL ALCOHOL OPHT DROPS 15 ML BOTTLE EACHEYE SCH ×6 (03:30→23:30)
[2022-11-21] MEDS: OSMOLITE 1.2 CAL 1,000 ML LIQUID GT PRN (03:44)
[2022-11-21] MEDS: CALCIUM CARB/VITAMIN D 600-400 MG TABLET GT SCH ×2 (05:48→17:51)
[2022-11-21] MEDS: LEVOTHYROXINE SODIUM 125 MCG TABLET PO SCH (05:48)
[2022-11-21] MEDS: FAMOTIDINE 20 MG TABLET GT SCH (05:48)
[2022-11-21] MEDS: CARBIDOPA/LEVODOPA 25-100MG TABLET GT SCH ×3 (05:48→21:47)
[2022-11-21] MEDS: [UNRECOGNIZED DRUG - OTHER] GT SCH (05:48)
[2022-11-21] MEDS: HYDROGEN PEROXIDE 3% 118 ML BOTTLE TP SCH ×2 (07:14→19:25)
[2022-11-21 08:00] VITALS: TEMP 99.3
[2022-11-21] MEDS: [UNRECOGNIZED DRUG - OTHER] GT SCH ×2 (09:17→21:47)
[2022-11-21] MEDS: CICLOPIROX 0.77% CREAM 30 GM TUBE TP SCH ×2 (09:18→17:51)
[2022-11-21] MEDS: TRIAMCINOLONE ACET 0.1% CREAM 15 GM TUBE TP SCH ×2 (09:18→21:47)
[2022-11-21] MEDS: COD LIVER OIL/ZINC OXIDE OINT 113 GM TUBE TP SCH ×2 (09:18→21:47)
[2022-11-21] MEDS: [UNRECOGNIZED DRUG - OTHER] GT SCH (09:18)
[2022-11-21] MEDS: NYSTATIN CREAM 30 GM TUBE TP SCH ×2 (09:18→21:47)
[2022-11-21] MEDS: VITAMINS A AND D OINT 42 GM TUBE TP SCH (09:18)
[2022-11-21 12:28] VITALS: O2SAT 98
[2022-11-21 19:45] VITALS: O2SAT 99
[2022-11-21 20:00] VITALS: TEMP 97.5
[2022-11-21] MEDS: MINERAL OIL/PETROLAT OPHT OINT 3.5 GM TUBE EACHEYE SCH (21:38)
[2022-11-21] MEDS: PROTEIN SUPPLEMENT (PROSTAT) 30 ML LIQUID GT SCH (21:47)
[2022-11-22] MEDS: POLYVINYL ALCOHOL OPHT DROPS 15 ML BOTTLE EACHEYE SCH ×6 (03:30→23:30)
[2022-11-22] MEDS: OSMOLITE 1.2 CAL 1,000 ML LIQUID GT PRN (04:02)
[2022-11-22] MEDS: LEVOTHYROXINE SODIUM 125 MCG TABLET PO SCH (06:00)
[2022-11-22] MEDS: FAMOTIDINE 20 MG TABLET GT SCH (06:00)
[2022-11-22] MEDS: [UNRECOGNIZED DRUG - OTHER] GT SCH (06:00)
[2022-11-22] MEDS: CALCIUM CARB/VITAMIN D 600-400 MG TABLET GT SCH ×2 (06:00→17:15)
[2022-11-22] MEDS: CARBIDOPA/LEVODOPA 25-100MG TABLET GT SCH ×3 (06:00→22:10)
[2022-11-22] MEDS: HYDROGEN PEROXIDE 3% 118 ML BOTTLE TP SCH ×2 (07:07→19:11)
[2022-11-22 08:00] VITALS: TEMP 98.2
[2022-11-22] MEDS: [UNRECOGNIZED DRUG - OTHER] GT SCH (09:00)
[2022-11-22] MEDS: VITAMINS A AND D OINT 42 GM TUBE TP SCH (09:01)
[2022-11-22] MEDS: COD LIVER OIL/ZINC OXIDE OINT 113 GM TUBE TP SCH ×2 (09:01→21:00)
[2022-11-22] MEDS: [UNRECOGNIZED DRUG - OTHER] GT SCH ×2 (09:02→21:00)
[2022-11-22] MEDS: TRIAMCINOLONE ACET 0.1% CREAM 15 GM TUBE TP SCH (09:02)
[2022-11-22] MEDS: NYSTATIN CREAM 30 GM TUBE TP SCH (09:03)
[2022-11-22] MEDS: CICLOPIROX 0.77% CREAM 30 GM TUBE TP SCH ×2 (09:03→17:15)
[2022-11-22 09:48] VITALS: O2SAT 98
[2022-11-22 20:00] VITALS: TEMP 97.6
[2022-11-22 20:40] VITALS: O2SAT 99
[2022-11-22] MEDS: PROTEIN SUPPLEMENT (PROSTAT) 30 ML LIQUID GT SCH (21:00)
[2022-11-22] MEDS: MINERAL OIL/PETROLAT OPHT OINT 3.5 GM TUBE EACHEYE SCH (21:00)
[2022-11-23] MEDS: POLYVINYL ALCOHOL OPHT DROPS 15 ML BOTTLE EACHEYE SCH ×6 (03:30→23:32)
[2022-11-23] MEDS: CALCIUM CARB/VITAMIN D 600-400 MG TABLET GT SCH ×2 (06:00→17:30)
[2022-11-23] MEDS: LEVOTHYROXINE SODIUM 125 MCG TABLET PO SCH (06:00)
[2022-11-23] MEDS: [UNRECOGNIZED DRUG - OTHER] GT SCH (06:00)
[2022-11-23] MEDS: CARBIDOPA/LEVODOPA 25-100MG TABLET GT SCH ×3 (06:00→22:21)
[2022-11-23] MEDS: FAMOTIDINE 20 MG TABLET GT SCH (07:23)
[2022-11-23 07:50] VITALS: TEMP 98.1
[2022-11-23 08:23] VITALS: O2SAT 98
[2022-11-23] MEDS: HYDROGEN PEROXIDE 3% 118 ML BOTTLE TP SCH ×2 (09:00→19:08)
[2022-11-23] MEDS: [UNRECOGNIZED DRUG - OTHER] GT SCH (09:57)
[2022-11-23] MEDS: [UNRECOGNIZED DRUG - OTHER] GT SCH ×2 (09:57→20:49)
[2022-11-23] MEDS: CICLOPIROX 0.77% CREAM 30 GM TUBE TP SCH ×2 (09:57→17:30)
[2022-11-23] MEDS: COD LIVER OIL/ZINC OXIDE OINT 113 GM TUBE TP SCH ×2 (09:57→20:49)
[2022-11-23] MEDS: VITAMINS A AND D OINT 42 GM TUBE TP SCH (09:58)
[2022-11-23 13:53] VITALS: O2SAT 98
[2022-11-23 20:00] VITALS: TEMP 98.2
[2022-11-23 20:35] VITALS: O2SAT 99
[2022-11-23] MEDS: PROTEIN SUPPLEMENT (PROSTAT) 30 ML LIQUID GT SCH (20:49)
[2022-11-23] MEDS: MINERAL OIL/PETROLAT OPHT OINT 3.5 GM TUBE EACHEYE SCH (20:49)
[2022-11-24] MEDS: POLYVINYL ALCOHOL OPHT DROPS 15 ML BOTTLE EACHEYE SCH ×5 (04:09→20:27)
[2022-11-24] MEDS: LEVOTHYROXINE SODIUM 125 MCG TABLET PO SCH (05:04)
[2022-11-24] MEDS: CALCIUM CARB/VITAMIN D 600-400 MG TABLET GT SCH ×2 (05:04→17:33)
[2022-11-24] MEDS: [UNRECOGNIZED DRUG - OTHER] GT SCH (05:04)
[2022-11-24] MEDS: CARBIDOPA/LEVODOPA 25-100MG TABLET GT SCH ×3 (05:04→22:09)
[2022-11-24] MEDS: OSMOLITE 1.2 CAL 1,000 ML LIQUID GT PRN (05:05)
[2022-11-24] MEDS: FAMOTIDINE 20 MG TABLET GT SCH (05:43)
[2022-11-24 07:56] VITALS: TEMP 98.5
[2022-11-24] MEDS: [UNRECOGNIZED DRUG - OTHER] GT SCH (08:09)
[2022-11-24] MEDS: [UNRECOGNIZED DRUG - OTHER] GT SCH ×2 (08:09→20:27)
[2022-11-24] MEDS: CICLOPIROX 0.77% CREAM 30 GM TUBE TP SCH ×2 (08:10→17:33)
[2022-11-24] MEDS: COD LIVER OIL/ZINC OXIDE OINT 113 GM TUBE TP SCH ×2 (08:10→20:27)
[2022-11-24] MEDS: VITAMINS A AND D OINT 42 GM TUBE TP SCH (08:10)
[2022-11-24 08:29] VITALS: O2SAT 98
[2022-11-24] MEDS: HYDROGEN PEROXIDE 3% 118 ML BOTTLE TP SCH ×2 (08:29→19:05)
[2022-11-24 15:13] VITALS: O2SAT 98
[2022-11-24] MEDS: MINERAL OIL/PETROLAT OPHT OINT 3.5 GM TUBE EACHEYE SCH (20:27)
[2022-11-24] MEDS: PROTEIN SUPPLEMENT (PROSTAT) 30 ML LIQUID GT SCH (20:27)
[2022-11-24 20:35] VITALS: O2SAT 99
[2022-11-24 21:13] VITALS: TEMP 98.9
[2022-11-25] MEDS: POLYVINYL ALCOHOL OPHT DROPS 15 ML BOTTLE EACHEYE SCH ×6 (00:10→19:30)
[2022-11-25] MEDS: OSMOLITE 1.2 CAL 1,000 ML LIQUID GT PRN (00:10)
[2022-11-25] MEDS: LEVOTHYROXINE SODIUM 125 MCG TABLET PO SCH (05:27)
[2022-11-25] MEDS: CARBIDOPA/LEVODOPA 25-100MG TABLET GT SCH ×3 (05:27→22:23)
[2022-11-25] MEDS: CALCIUM CARB/VITAMIN D 600-400 MG TABLET GT SCH ×2 (05:27→17:37)
[2022-11-25] MEDS: [UNRECOGNIZED DRUG - OTHER] GT SCH (05:27)
[2022-11-25] MEDS: FAMOTIDINE 20 MG TABLET GT SCH (05:30)
[2022-11-25 07:28] VITALS: TEMP 98.8
[2022-11-25] MEDS ORDERED: DIATR MEGLU/DIATRIZOATE SODIUM 30 ML BOTTLE ONE (08:28)
[2022-11-25] MEDS: HYDROGEN PEROXIDE 3% 118 ML BOTTLE TP SCH ×2 (09:00→19:17)
[2022-11-25] MEDS: [UNRECOGNIZED DRUG - OTHER] GT SCH (09:00)
[2022-11-25] MEDS: CICLOPIROX 0.77% CREAM 30 GM TUBE TP SCH (09:00)
[2022-11-25] MEDS: COD LIVER OIL/ZINC OXIDE OINT 113 GM TUBE TP SCH ×2 (09:00→20:54)
[2022-11-25] MEDS: VITAMINS A AND D OINT 42 GM TUBE TP SCH (09:00)
[2022-11-25] MEDS: [UNRECOGNIZED DRUG - OTHER] GT SCH ×2 (09:00→20:54)
[2022-11-25 16:32] VITALS: O2SAT 98
[2022-11-25 19:45] VITALS: O2SAT 99
[2022-11-25 19:53] VITALS: TEMP 98.9
[2022-11-25] MEDS: MINERAL OIL/PETROLAT OPHT OINT 3.5 GM TUBE EACHEYE SCH (20:51)
[2022-11-25] MEDS: PROTEIN SUPPLEMENT (PROSTAT) 30 ML LIQUID GT SCH (20:54)
[2022-11-26] MEDS: POLYVINYL ALCOHOL OPHT DROPS 15 ML BOTTLE EACHEYE SCH ×7 (00:15→23:30)
[2022-11-26] MEDS: LOPERAMIDE HCL 2 MG/15 ML GT PRN (01:47)
[2022-11-26] MEDS: OSMOLITE 1.2 CAL 1,000 ML LIQUID GT PRN (01:47)
[2022-11-26] MEDS: CALCIUM CARB/VITAMIN D 600-400 MG TABLET GT SCH ×2 (05:17→17:55)
[2022-11-26] MEDS: LEVOTHYROXINE SODIUM 125 MCG TABLET PO SCH (05:17)
[2022-11-26] MEDS: CARBIDOPA/LEVODOPA 25-100MG TABLET GT SCH ×3 (05:17→22:10)
[2022-11-26] MEDS: [UNRECOGNIZED DRUG - OTHER] GT SCH (05:17)
[2022-11-26] MEDS: FAMOTIDINE 20 MG TABLET GT SCH (05:34)
[2022-11-26 07:28] VITALS: TEMP 98.6
[2022-11-26 08:30] VITALS: O2SAT 98
[2022-11-26] MEDS: COD LIVER OIL/ZINC OXIDE OINT 113 GM TUBE TP SCH ×2 (09:49→20:23)
[2022-11-26] MEDS: [UNRECOGNIZED DRUG - OTHER] GT SCH (09:49)
[2022-11-26] MEDS: [UNRECOGNIZED DRUG - OTHER] GT SCH ×2 (09:49→20:23)
[2022-11-26] MEDS: VITAMINS A AND D OINT 42 GM TUBE TP SCH (09:50)
[2022-11-26] MEDS: HYDROGEN PEROXIDE 3% 118 ML BOTTLE TP SCH ×2 (09:56→22:26)
[2022-11-26 15:45] VITALS: O2SAT 98
[2022-11-26] MEDS: PROTEIN SUPPLEMENT (PROSTAT) 30 ML LIQUID GT SCH (20:23)
[2022-11-26] MEDS: MINERAL OIL/PETROLAT OPHT OINT 3.5 GM TUBE EACHEYE SCH (20:23)
[2022-11-26 21:16] VITALS: TEMP 98.2
[2022-11-27] MEDS: OSMOLITE 1.2 CAL 1,000 ML LIQUID GT PRN (01:05)
[2022-11-27] MEDS: POLYVINYL ALCOHOL OPHT DROPS 15 ML BOTTLE EACHEYE SCH ×6 (03:30→23:18)
[2022-11-27 04:03] VITALS: O2SAT 99
[2022-11-27] MEDS: [UNRECOGNIZED DRUG - OTHER] GT SCH (05:15)
[2022-11-27] MEDS: LEVOTHYROXINE SODIUM 125 MCG TABLET PO SCH (05:15)
[2022-11-27] MEDS: CALCIUM CARB/VITAMIN D 600-400 MG TABLET GT SCH ×2 (05:15→18:02)
[2022-11-27] MEDS: CARBIDOPA/LEVODOPA 25-100MG TABLET GT SCH ×3 (05:15→21:17)
[2022-11-27] MEDS: FAMOTIDINE 20 MG TABLET GT SCH (05:46)
[2022-11-27] MEDS: ALENDRONATE SODIUM 70 MG GT SCH (06:28)
[2022-11-27 07:29] VITALS: TEMP 98.8
[2022-11-27] MEDS: HYDROGEN PEROXIDE 3% 118 ML BOTTLE TP SCH ×2 (08:03→19:13)
[2022-11-27] MEDS: VITAMINS A AND D OINT 42 GM TUBE TP SCH (09:00)
[2022-11-27] MEDS: COD LIVER OIL/ZINC OXIDE OINT 113 GM TUBE TP SCH ×2 (09:00→20:43)
[2022-11-27] MEDS: [UNRECOGNIZED DRUG - OTHER] GT SCH (09:00)
[2022-11-27] MEDS: [UNRECOGNIZED DRUG - OTHER] GT SCH ×2 (09:00→20:44)
[2022-11-27 14:24] VITALS: O2SAT 98
[2022-11-27 20:26] VITALS: O2SAT 99
[2022-11-27 20:39] VITALS: TEMP 98.5
[2022-11-27] MEDS: MINERAL OIL/PETROLAT OPHT OINT 3.5 GM TUBE EACHEYE SCH (20:43)
[2022-11-27] MEDS: PROTEIN SUPPLEMENT (PROSTAT) 30 ML LIQUID GT SCH (20:44)
[2022-11-28] MEDS: POLYVINYL ALCOHOL OPHT DROPS 15 ML BOTTLE EACHEYE SCH ×6 (03:40→23:43)
[2022-11-28] MEDS: OSMOLITE 1.2 CAL 1,000 ML LIQUID GT PRN (04:21)
[2022-11-28] MEDS: CALCIUM CARB/VITAMIN D 600-400 MG TABLET GT SCH ×2 (05:13→17:11)
[2022-11-28] MEDS: CARBIDOPA/LEVODOPA 25-100MG TABLET GT SCH ×3 (05:13→21:07)
[2022-11-28] MEDS: LEVOTHYROXINE SODIUM 125 MCG TABLET PO SCH (05:13)
[2022-11-28] MEDS: [UNRECOGNIZED DRUG - OTHER] GT SCH (05:13)
[2022-11-28] MEDS: FAMOTIDINE 20 MG TABLET GT SCH (05:59)
[2022-11-28 07:31] VITALS: TEMP 98.7
[2022-11-28 08:15] VITALS: O2SAT 98
[2022-11-28] MEDS: [UNRECOGNIZED DRUG - OTHER] GT SCH ×2 (08:48→20:04)
[2022-11-28] MEDS: [UNRECOGNIZED DRUG - OTHER] GT SCH (08:49)
[2022-11-28] MEDS: COD LIVER OIL/ZINC OXIDE OINT 113 GM TUBE TP SCH ×2 (08:49→20:04)
[2022-11-28] MEDS: VITAMINS A AND D OINT 42 GM TUBE TP SCH (08:50)
[2022-11-28] MEDS: LOPERAMIDE HCL 2 MG/15 ML GT PRN (08:54)
[2022-11-28] MEDS: HYDROGEN PEROXIDE 3% 118 ML BOTTLE TP SCH ×2 (09:00→19:32)
[2022-11-28 13:00] VITALS: O2SAT 98
[2022-11-28] MEDS ORDERED: INFLUENZA VACCINE 2023-2024 0.5 ML DISP.SYRIN IM ONE (13:00)
[2022-11-28 19:45] VITALS: O2SAT 99
[2022-11-28 20:00] VITALS: TEMP 99.2
[2022-11-28] MEDS: ACETAMINOPHEN 650 MG/20 ML UDC- SA PATIENTS-PAIN ONLY GT PRN (20:04)
[2022-11-28] MEDS: MINERAL OIL/PETROLAT OPHT OINT 3.5 GM TUBE EACHEYE SCH (20:04)
[2022-11-28] MEDS: PROTEIN SUPPLEMENT (PROSTAT) 30 ML LIQUID GT SCH (20:04)
[2022-11-29] VITALS (7 sets, daily range): TEMP 97.6–101.2; O2SAT 98–99
[2022-11-29] MEDS: OSMOLITE 1.2 CAL 1,000 ML LIQUID GT PRN (01:29)
[2022-11-29] MEDS: ACETAMINOPHEN 650 MG/20 ML UDC- SA PATIENTS-FEVER ONLY GT PRN (01:42)
[2022-11-29] MEDS: POLYVINYL ALCOHOL OPHT DROPS 15 ML BOTTLE EACHEYE SCH ×6 (03:42→23:53)
[2022-11-29] MEDS: CALCIUM CARB/VITAMIN D 600-400 MG TABLET GT SCH ×2 (05:17→17:36)
[2022-11-29] MEDS: [UNRECOGNIZED DRUG - OTHER] GT SCH (05:17)
[2022-11-29] MEDS: CARBIDOPA/LEVODOPA 25-100MG TABLET GT SCH ×3 (05:17→22:36)
[2022-11-29] MEDS: LEVOTHYROXINE SODIUM 125 MCG TABLET PO SCH (05:18)
[2022-11-29] MEDS: FAMOTIDINE 20 MG TABLET GT SCH (05:36)
[2022-11-29] MEDS: HYDROGEN PEROXIDE 3% 118 ML BOTTLE TP SCH ×2 (08:55→19:12)
[2022-11-29] MEDS: COD LIVER OIL/ZINC OXIDE OINT 113 GM TUBE TP SCH ×2 (09:54→20:12)
[2022-11-29] MEDS: [UNRECOGNIZED DRUG - OTHER] GT SCH ×2 (09:54→20:12)
[2022-11-29] MEDS: VITAMINS A AND D OINT 42 GM TUBE TP SCH (09:54)
[2022-11-29] MEDS: [UNRECOGNIZED DRUG - OTHER] GT SCH (09:54)
[2022-11-29] MEDS: LOPERAMIDE HCL 2 MG/15 ML GT PRN (09:57)
[2022-11-29] MEDS: PROTEIN SUPPLEMENT (PROSTAT) 30 ML LIQUID GT SCH (20:12)
[2022-11-29] MEDS: MINERAL OIL/PETROLAT OPHT OINT 3.5 GM TUBE EACHEYE SCH (20:12)
[2022-11-30] MEDS: OSMOLITE 1.2 CAL 1,000 ML LIQUID GT PRN (01:33)
[2022-11-30] MEDS: POLYVINYL ALCOHOL OPHT DROPS 15 ML BOTTLE EACHEYE SCH ×6 (03:30→23:30)
[2022-11-30] MEDS: FAMOTIDINE 20 MG TABLET GT SCH (05:51)
[2022-11-30] MEDS: [UNRECOGNIZED DRUG - OTHER] GT SCH (05:51)
[2022-11-30] MEDS: LEVOTHYROXINE SODIUM 125 MCG TABLET PO SCH (05:51)
[2022-11-30] MEDS: CALCIUM CARB/VITAMIN D 600-400 MG TABLET GT SCH ×2 (05:51→18:07)
[2022-11-30] MEDS: CARBIDOPA/LEVODOPA 25-100MG TABLET GT SCH ×3 (05:51→21:55)
[2022-11-30 08:00] VITALS: TEMP 97.5
[2022-11-30] MEDS: [UNRECOGNIZED DRUG - OTHER] GT SCH ×2 (08:04→20:38)
[2022-11-30] MEDS: COD LIVER OIL/ZINC OXIDE OINT 113 GM TUBE TP SCH ×2 (08:04→20:38)
[2022-11-30] MEDS: [UNRECOGNIZED DRUG - OTHER] GT SCH (08:04)
[2022-11-30] MEDS: VITAMINS A AND D OINT 42 GM TUBE TP SCH (08:05)
[2022-11-30] MEDS: HYDROGEN PEROXIDE 3% 118 ML BOTTLE TP SCH ×2 (09:00→21:17)
[2022-11-30] MEDS: diphenhydrAMINE 25 MG/10 ML UDC GT PRN (16:36)
[2022-11-30 18:08] VITALS: O2SAT 98
[2022-11-30 20:00] VITALS: TEMP 97.6
[2022-11-30] MEDS: MINERAL OIL/PETROLAT OPHT OINT 3.5 GM TUBE EACHEYE SCH (20:38)
[2022-11-30] MEDS: PROTEIN SUPPLEMENT (PROSTAT) 30 ML LIQUID GT SCH (20:38)
[2022-11-30 21:22] VITALS: O2SAT 99
[2022-12-01] MEDS: OSMOLITE 1.2 CAL 1,000 ML LIQUID GT PRN (01:46)
[2022-12-01] MEDS: LOPERAMIDE HCL 2 MG/15 ML GT PRN ×2 (02:30→08:34)
[2022-12-01] MEDS: POLYVINYL ALCOHOL OPHT DROPS 15 ML BOTTLE EACHEYE SCH ×5 (03:30→19:51)
[2022-12-01] MEDS: CALCIUM CARB/VITAMIN D 600-400 MG TABLET GT SCH ×2 (05:17→17:13)
[2022-12-01] MEDS: [UNRECOGNIZED DRUG - OTHER] GT SCH (05:17)
[2022-12-01] MEDS: LEVOTHYROXINE SODIUM 125 MCG TABLET PO SCH (05:17)
[2022-12-01] MEDS: CARBIDOPA/LEVODOPA 25-100MG TABLET GT SCH ×3 (05:17→21:06)
[2022-12-01] MEDS: FAMOTIDINE 20 MG TABLET GT SCH (05:38)
[2022-12-01] MEDS: HYDROGEN PEROXIDE 3% 118 ML BOTTLE TP SCH ×2 (07:20→19:18)
[2022-12-01 07:26] VITALS: TEMP 97.8
[2022-12-01] MEDS: [UNRECOGNIZED DRUG - OTHER] GT SCH (08:33)
[2022-12-01] MEDS: [UNRECOGNIZED DRUG - OTHER] GT SCH ×2 (08:33→20:24)
[2022-12-01] MEDS: VITAMINS A AND D OINT 42 GM TUBE TP SCH (08:34)
[2022-12-01] MEDS: COD LIVER OIL/ZINC OXIDE OINT 113 GM TUBE TP SCH ×2 (08:34→20:24)
[2022-12-01 09:05] VITALS: O2SAT 98
[2022-12-01 19:45] VITALS: O2SAT 99
[2022-12-01 20:00] VITALS: TEMP 98.2
[2022-12-01] MEDS: MINERAL OIL/PETROLAT OPHT OINT 3.5 GM TUBE EACHEYE SCH (20:24)
[2022-12-01] MEDS: PROTEIN SUPPLEMENT (PROSTAT) 30 ML LIQUID GT SCH (20:24)
[2022-12-02] MEDS: POLYVINYL ALCOHOL OPHT DROPS 15 ML BOTTLE EACHEYE SCH ×7 (00:21→23:30)
[2022-12-02] MEDS: OSMOLITE 1.2 CAL 1,000 ML LIQUID GT PRN ×2 (01:32→21:55)
[2022-12-02] MEDS: [UNRECOGNIZED DRUG - OTHER] GT SCH (05:27)
[2022-12-02] MEDS: LEVOTHYROXINE SODIUM 125 MCG TABLET PO SCH (05:27)
[2022-12-02] MEDS: CARBIDOPA/LEVODOPA 25-100MG TABLET GT SCH ×3 (05:27→21:53)
[2022-12-02] MEDS: CALCIUM CARB/VITAMIN D 600-400 MG TABLET GT SCH ×2 (05:27→18:01)
[2022-12-02] MEDS: FAMOTIDINE 20 MG TABLET GT SCH (05:35)
[2022-12-02 07:32] VITALS: TEMP 98.7
[2022-12-02] MEDS: COD LIVER OIL/ZINC OXIDE OINT 113 GM TUBE TP SCH ×2 (08:45→20:49)
[2022-12-02] MEDS: VITAMINS A AND D OINT 42 GM TUBE TP SCH (08:45)
[2022-12-02] MEDS: [UNRECOGNIZED DRUG - OTHER] GT SCH ×2 (08:45→20:49)
[2022-12-02] MEDS: [UNRECOGNIZED DRUG - OTHER] GT SCH (08:45)
[2022-12-02] MEDS: HYDROGEN PEROXIDE 3% 118 ML BOTTLE TP SCH ×2 (08:56→19:32)
[2022-12-02 14:08] VITALS: O2SAT 98
[2022-12-02 20:00] VITALS: TEMP 97.6
[2022-12-02 20:10] VITALS: O2SAT 99
[2022-12-02] MEDS: PROTEIN SUPPLEMENT (PROSTAT) 30 ML LIQUID GT SCH (20:49)
[2022-12-02] MEDS: MINERAL OIL/PETROLAT OPHT OINT 3.5 GM TUBE EACHEYE SCH (20:49)
[2022-12-02] MEDS: LOPERAMIDE HCL 2 MG/15 ML GT PRN (21:55)
[2022-12-03] MEDS: POLYVINYL ALCOHOL OPHT DROPS 15 ML BOTTLE EACHEYE SCH ×6 (04:17→23:30)
[2022-12-03] MEDS: LEVOTHYROXINE SODIUM 125 MCG TABLET PO SCH (05:18)
[2022-12-03] MEDS: [UNRECOGNIZED DRUG - OTHER] GT SCH (05:18)
[2022-12-03] MEDS: CARBIDOPA/LEVODOPA 25-100MG TABLET GT SCH ×3 (05:18→21:25)
[2022-12-03] MEDS: CALCIUM CARB/VITAMIN D 600-400 MG TABLET GT SCH ×2 (05:18→17:07)
[2022-12-03] MEDS: FAMOTIDINE 20 MG TABLET GT SCH (05:41)
[2022-12-03 07:13] LABS: BASOPHILS % (AUTO) 0.7 % (0.0-2.0); EOSINOPHILS # (AUTO) 0.1 K/uL (0.0-0.7); EOSINOPHILS % (AUTO) 2.2 % (0.0-7.0); HEMATOCRIT 32.9 % (31.2-41.9); HEMOGLOBIN 11.1 g/dL (10.9-14.3); LYMPHOCYTES # (AUTO) 2.1 K/uL (0.8-4.8); LYMPHOCYTES % (AUTO) 34.6 % (20.5-51.5); MEAN CORPUSCULAR HEMOGLOBIN 28.6 uug (24.7-32.8); MEAN CORPUSCULAR HGB CONC 34 g/dL (32.3-35.6); MEAN CORPUSCULAR VOLUME 84.9 fL (75.5-95.3); MONOCYTES # (AUTO) 0.6 K/uL (0.1-1.30); MONOCYTES % (AUTO) 10.6 % (0.0-11.0); NEUTROPHILS # (AUTO) 3.1 K/uL (1.8-8.9); NEUTROPHILS % (AUTO) 51.9 % (38.5-71.5); PLATELET COUNT (AUTO) 212 K/uL (179-408); RED BLOOD CELL COUNT(AUTO) 3.87 MIL/uL (3.63-4.92); RED CELL DISTRIBUTION WIDTH 15.8 % (12.3-17.7); WHITE BLOOD COUNT (AUTO) 5.9 K/uL (3.8-11.8)
[2022-12-03 07:19] LABS: DIFFERENTIAL COMMENT 1
[2022-12-03 07:33] VITALS: TEMP 98.6
[2022-12-03 07:33] LABS: ALANINE AMINOTRANSFERASE < 6 U/L (14-59); ALBUMIN 2.7 g/dL (3.4-5.0); ALKALINE PHOSPHATASE 57 U/L (50-136); ASPARTATE AMINOTRANSFERASE 8 U/L (15-37); BILIRUBIN,TOTAL 0.3 mg/dL (0.2-1.0); CARBON DIOXIDE 32 mmol/L (21-32); CHLORIDE 102 mmol/L (98-107); CREATININE 0.9 mg/dL (0.6-1.3); GLUCOSE 109 mg/dL (74-106); POTASSIUM 4.5 mmol/L (3.5-5.1); SODIUM SERUM 136 mmol/L (136-145); TOTAL PROTEIN, SERUM 7.5 g/dL (6.4-8.2); UREA NITROGEN, BLOOD 23 mg/dL (7-18)
[2022-12-03 08:30] VITALS: O2SAT 98
[2022-12-03] MEDS: [UNRECOGNIZED DRUG - OTHER] GT SCH ×2 (08:47→21:25)
[2022-12-03] MEDS: COD LIVER OIL/ZINC OXIDE OINT 113 GM TUBE TP SCH ×2 (08:48→21:25)
[2022-12-03] MEDS: [UNRECOGNIZED DRUG - OTHER] GT SCH (08:48)
[2022-12-03] MEDS: VITAMINS A AND D OINT 42 GM TUBE TP SCH (08:48)
[2022-12-03] MEDS: HYDROGEN PEROXIDE 3% 118 ML BOTTLE TP SCH ×2 (09:00→19:18)
[2022-12-03 15:30] VITALS: O2SAT 98
[2022-12-03 20:00] VITALS: TEMP 98.4
[2022-12-03 20:20] VITALS: O2SAT 99
[2022-12-03] MEDS: PROTEIN SUPPLEMENT (PROSTAT) 30 ML LIQUID GT SCH (21:25)
[2022-12-03] MEDS: MINERAL OIL/PETROLAT OPHT OINT 3.5 GM TUBE EACHEYE SCH (21:25)
[2022-12-03] MEDS: diphenhydrAMINE 25 MG/10 ML UDC GT PRN (21:29)
[2022-12-03] MEDS: OSMOLITE 1.2 CAL 1,000 ML LIQUID GT PRN (21:30)
[2022-12-04] MEDS: POLYVINYL ALCOHOL OPHT DROPS 15 ML BOTTLE EACHEYE SCH ×6 (03:30→23:30)
[2022-12-04] MEDS: CALCIUM CARB/VITAMIN D 600-400 MG TABLET GT SCH ×2 (06:09→17:47)
[2022-12-04] MEDS: ALENDRONATE SODIUM 70 MG GT SCH (06:09)
[2022-12-04] MEDS: CARBIDOPA/LEVODOPA 25-100MG TABLET GT SCH ×3 (06:09→21:14)
[2022-12-04] MEDS: [UNRECOGNIZED DRUG - OTHER] GT SCH (06:09)
[2022-12-04] MEDS: FAMOTIDINE 20 MG TABLET GT SCH (06:09)
[2022-12-04] MEDS: LEVOTHYROXINE SODIUM 125 MCG TABLET PO SCH (06:09)
[2022-12-04 08:00] VITALS: TEMP 98.2
[2022-12-04] MEDS: VITAMINS A AND D OINT 42 GM TUBE TP SCH (08:12)
[2022-12-04] MEDS: [UNRECOGNIZED DRUG - OTHER] GT SCH (08:12)
[2022-12-04] MEDS: COD LIVER OIL/ZINC OXIDE OINT 113 GM TUBE TP SCH ×2 (08:12→21:14)
[2022-12-04] MEDS: [UNRECOGNIZED DRUG - OTHER] GT SCH ×2 (08:12→21:13)
[2022-12-04] MEDS: HYDROGEN PEROXIDE 3% 118 ML BOTTLE TP SCH ×2 (09:00→21:00)
[2022-12-04 09:15] VITALS: O2SAT 98
[2022-12-04] MEDS: OSMOLITE 1.2 CAL 1,000 ML LIQUID GT PRN (18:46)
[2022-12-04 20:00] VITALS: TEMP 98.5
[2022-12-04] MEDS: MINERAL OIL/PETROLAT OPHT OINT 3.5 GM TUBE EACHEYE SCH (21:10)
[2022-12-04] MEDS: PROTEIN SUPPLEMENT (PROSTAT) 30 ML LIQUID GT SCH (21:13)
[2022-12-05 00:45] VITALS: O2SAT 97
[2022-12-05] MEDS: POLYVINYL ALCOHOL OPHT DROPS 15 ML BOTTLE EACHEYE SCH ×6 (04:21→23:30)
[2022-12-05] MEDS: CARBIDOPA/LEVODOPA 25-100MG TABLET GT SCH ×3 (05:42→22:05)
[2022-12-05] MEDS: [UNRECOGNIZED DRUG - OTHER] GT SCH (05:42)
[2022-12-05] MEDS: LEVOTHYROXINE SODIUM 125 MCG TABLET PO SCH (05:42)
[2022-12-05] MEDS: FAMOTIDINE 20 MG TABLET GT SCH (05:42)
[2022-12-05] MEDS: CALCIUM CARB/VITAMIN D 600-400 MG TABLET GT SCH ×2 (05:42→18:08)
[2022-12-05 07:25] VITALS: O2SAT 98
[2022-12-05 08:00] VITALS: TEMP 97.1
[2022-12-05] MEDS: HYDROGEN PEROXIDE 3% 118 ML BOTTLE TP SCH ×2 (09:00→19:12)
[2022-12-05] MEDS: [UNRECOGNIZED DRUG - OTHER] GT SCH (09:24)
[2022-12-05] MEDS: [UNRECOGNIZED DRUG - OTHER] GT SCH ×2 (09:24→21:00)
[2022-12-05] MEDS: COD LIVER OIL/ZINC OXIDE OINT 113 GM TUBE TP SCH ×2 (09:24→21:00)
[2022-12-05] MEDS: VITAMINS A AND D OINT 42 GM TUBE TP SCH (09:38)
[2022-12-05 15:46] VITALS: O2SAT 98
[2022-12-05] MEDS: OSMOLITE 1.2 CAL 1,000 ML LIQUID GT PRN (18:41)
[2022-12-05 20:03] VITALS: TEMP 98.4
[2022-12-05] MEDS: PROTEIN SUPPLEMENT (PROSTAT) 30 ML LIQUID GT SCH (21:00)
[2022-12-05] MEDS: MINERAL OIL/PETROLAT OPHT OINT 3.5 GM TUBE EACHEYE SCH (21:00)
[2022-12-06 00:19] VITALS: O2SAT 97
[2022-12-06] MEDS: POLYVINYL ALCOHOL OPHT DROPS 15 ML BOTTLE EACHEYE SCH ×6 (03:40→23:30)
[2022-12-06] MEDS: CALCIUM CARB/VITAMIN D 600-400 MG TABLET GT SCH ×2 (06:00→18:39)
[2022-12-06] MEDS: [UNRECOGNIZED DRUG - OTHER] GT SCH (06:47)
[2022-12-06] MEDS: FAMOTIDINE 20 MG TABLET GT SCH (06:48)
[2022-12-06] MEDS: CARBIDOPA/LEVODOPA 25-100MG TABLET GT SCH ×3 (06:48→22:00)
[2022-12-06] MEDS: LEVOTHYROXINE SODIUM 125 MCG TABLET PO SCH (06:49)
[2022-12-06] MEDS: HYDROGEN PEROXIDE 3% 118 ML BOTTLE TP SCH ×2 (07:23→19:11)
[2022-12-06 08:11] VITALS: TEMP 97.9
[2022-12-06] MEDS: [UNRECOGNIZED DRUG - OTHER] GT SCH ×2 (08:33→20:14)
[2022-12-06] MEDS: COD LIVER OIL/ZINC OXIDE OINT 113 GM TUBE TP SCH ×2 (08:33→20:11)
[2022-12-06] MEDS: VITAMINS A AND D OINT 42 GM TUBE TP SCH (08:33)
[2022-12-06] MEDS: [UNRECOGNIZED DRUG - OTHER] GT SCH (08:33)
[2022-12-06 10:31] VITALS: O2SAT 98
[2022-12-06] MEDS: OSMOLITE 1.2 CAL 1,000 ML LIQUID GT PRN (18:39)
[2022-12-06 20:00] VITALS: TEMP 97.2
[2022-12-06] MEDS: PROTEIN SUPPLEMENT (PROSTAT) 30 ML LIQUID GT SCH (20:11)
[2022-12-06] MEDS: MINERAL OIL/PETROLAT OPHT OINT 3.5 GM TUBE EACHEYE SCH (20:16)
[2022-12-06 20:35] VITALS: O2SAT 99
[2022-12-07] MEDS: POLYVINYL ALCOHOL OPHT DROPS 15 ML BOTTLE EACHEYE SCH ×6 (03:30→23:30)
[2022-12-07] MEDS: FAMOTIDINE 20 MG TABLET GT SCH (05:28)
[2022-12-07] MEDS: LEVOTHYROXINE SODIUM 125 MCG TABLET PO SCH (05:28)
[2022-12-07] MEDS: CARBIDOPA/LEVODOPA 25-100MG TABLET GT SCH ×3 (05:28→22:00)
[2022-12-07] MEDS: [UNRECOGNIZED DRUG - OTHER] GT SCH (05:30)
[2022-12-07] MEDS: CALCIUM CARB/VITAMIN D 600-400 MG TABLET GT SCH ×2 (05:30→17:26)
[2022-12-07] MEDS: HYDROGEN PEROXIDE 3% 118 ML BOTTLE TP SCH ×2 (07:29→19:13)
[2022-12-07 08:07] VITALS: TEMP 97.8
[2022-12-07] MEDS: [UNRECOGNIZED DRUG - OTHER] GT SCH (09:12)
[2022-12-07] MEDS: COD LIVER OIL/ZINC OXIDE OINT 113 GM TUBE TP SCH ×2 (09:12→20:47)
[2022-12-07] MEDS: [UNRECOGNIZED DRUG - OTHER] GT SCH ×2 (09:12→20:47)
[2022-12-07] MEDS: VITAMINS A AND D OINT 42 GM TUBE TP SCH (09:12)
[2022-12-07 13:26] VITALS: O2SAT 98
[2022-12-07 20:00] VITALS: TEMP 97.6
[2022-12-07] MEDS: OSMOLITE 1.2 CAL 1,000 ML LIQUID GT PRN (20:42)
[2022-12-07 20:45] VITALS: O2SAT 99
[2022-12-07] MEDS: MINERAL OIL/PETROLAT OPHT OINT 3.5 GM TUBE EACHEYE SCH (20:46)
[2022-12-07] MEDS: PROTEIN SUPPLEMENT (PROSTAT) 30 ML LIQUID GT SCH (20:47)
[2022-12-08] MEDS: diphenhydrAMINE 25 MG/10 ML UDC GT PRN (02:31)
[2022-12-08] MEDS: POLYVINYL ALCOHOL OPHT DROPS 15 ML BOTTLE EACHEYE SCH ×6 (03:30→23:56)
[2022-12-08] MEDS: LEVOTHYROXINE SODIUM 125 MCG TABLET PO SCH (06:21)
[2022-12-08] MEDS: FAMOTIDINE 20 MG TABLET GT SCH (06:21)
[2022-12-08] MEDS: CARBIDOPA/LEVODOPA 25-100MG TABLET GT SCH ×3 (06:21→21:52)
[2022-12-08] MEDS: [UNRECOGNIZED DRUG - OTHER] GT SCH (06:21)
[2022-12-08] MEDS: CALCIUM CARB/VITAMIN D 600-400 MG TABLET GT SCH ×2 (06:21→18:24)
[2022-12-08 07:40] VITALS: O2SAT 98
[2022-12-08 07:58] VITALS: TEMP 98
[2022-12-08] MEDS: HYDROGEN PEROXIDE 3% 118 ML BOTTLE TP SCH ×2 (09:00→20:16)
[2022-12-08] MEDS: [UNRECOGNIZED DRUG - OTHER] GT SCH (09:04)
[2022-12-08] MEDS: VITAMINS A AND D OINT 42 GM TUBE TP SCH (09:04)
[2022-12-08] MEDS: [UNRECOGNIZED DRUG - OTHER] GT SCH ×2 (09:04→20:05)
[2022-12-08] MEDS: COD LIVER OIL/ZINC OXIDE OINT 113 GM TUBE TP SCH ×2 (09:04→20:09)
[2022-12-08 16:00] VITALS: O2SAT 98
[2022-12-08] MEDS: OSMOLITE 1.2 CAL 1,000 ML LIQUID GT PRN (19:25)
[2022-12-08 20:00] VITALS: TEMP 98.6
[2022-12-08] MEDS: MINERAL OIL/PETROLAT OPHT OINT 3.5 GM TUBE EACHEYE SCH (20:05)
[2022-12-08] MEDS: PROTEIN SUPPLEMENT (PROSTAT) 30 ML LIQUID GT SCH (20:06)
[2022-12-08 20:30] VITALS: O2SAT 99
[2022-12-09] MEDS: POLYVINYL ALCOHOL OPHT DROPS 15 ML BOTTLE EACHEYE SCH ×6 (03:50→23:35)
[2022-12-09] MEDS: CALCIUM CARB/VITAMIN D 600-400 MG TABLET GT SCH ×2 (05:30→18:08)
[2022-12-09] MEDS: FAMOTIDINE 20 MG TABLET GT SCH (05:30)
[2022-12-09] MEDS: CARBIDOPA/LEVODOPA 25-100MG TABLET GT SCH ×3 (05:30→22:23)
[2022-12-09] MEDS: LEVOTHYROXINE SODIUM 125 MCG TABLET PO SCH (05:30)
[2022-12-09] MEDS: [UNRECOGNIZED DRUG - OTHER] GT SCH (05:30)
[2022-12-09 07:49] VITALS: O2SAT 99
[2022-12-09 08:00] VITALS: TEMP 97.4
[2022-12-09] MEDS: HYDROGEN PEROXIDE 3% 118 ML BOTTLE TP SCH ×2 (09:26→21:53)
[2022-12-09] MEDS: [UNRECOGNIZED DRUG - OTHER] GT SCH (09:29)
[2022-12-09] MEDS: [UNRECOGNIZED DRUG - OTHER] GT SCH ×2 (09:29→21:00)
[2022-12-09] MEDS: COD LIVER OIL/ZINC OXIDE OINT 113 GM TUBE TP SCH ×2 (09:29→21:00)
[2022-12-09] MEDS: VITAMINS A AND D OINT 42 GM TUBE TP SCH (09:30)
[2022-12-09 20:00] VITALS: TEMP 98.8
[2022-12-09] MEDS: PROTEIN SUPPLEMENT (PROSTAT) 30 ML LIQUID GT SCH (21:00)
[2022-12-09] MEDS: MINERAL OIL/PETROLAT OPHT OINT 3.5 GM TUBE EACHEYE SCH (21:00)
[2022-12-09] MEDS: OSMOLITE 1.2 CAL 1,000 ML LIQUID GT PRN (22:23)
[2022-12-10 03:35] VITALS: O2SAT 98
[2022-12-10] MEDS: POLYVINYL ALCOHOL OPHT DROPS 15 ML BOTTLE EACHEYE SCH ×5 (04:02→19:30)
[2022-12-10] MEDS: CALCIUM CARB/VITAMIN D 600-400 MG TABLET GT SCH ×2 (05:49→17:08)
[2022-12-10] MEDS: [UNRECOGNIZED DRUG - OTHER] GT SCH (05:49)
[2022-12-10] MEDS: FAMOTIDINE 20 MG TABLET GT SCH (05:49)
[2022-12-10] MEDS: CARBIDOPA/LEVODOPA 25-100MG TABLET GT SCH ×3 (05:49→21:25)
[2022-12-10] MEDS: LEVOTHYROXINE SODIUM 125 MCG TABLET PO SCH (05:49)
[2022-12-10 07:10] VITALS: O2SAT 98
[2022-12-10] MEDS: [UNRECOGNIZED DRUG - OTHER] GT SCH (09:00)
[2022-12-10] MEDS: [UNRECOGNIZED DRUG - OTHER] GT SCH ×2 (09:13→21:24)
[2022-12-10] MEDS: HYDROGEN PEROXIDE 3% 118 ML BOTTLE TP SCH ×2 (09:14→19:12)
[2022-12-10] MEDS: COD LIVER OIL/ZINC OXIDE OINT 113 GM TUBE TP SCH ×2 (09:14→21:24)
[2022-12-10] MEDS: VITAMINS A AND D OINT 42 GM TUBE TP SCH (09:14)
[2022-12-10 15:10] VITALS: O2SAT 98
[2022-12-10 20:00] VITALS: TEMP 99.8
[2022-12-10] MEDS: MINERAL OIL/PETROLAT OPHT OINT 3.5 GM TUBE EACHEYE SCH (21:24)
[2022-12-10] MEDS: PROTEIN SUPPLEMENT (PROSTAT) 30 ML LIQUID GT SCH (21:24)
[2022-12-10] MEDS: OSMOLITE 1.2 CAL 1,000 ML LIQUID GT PRN (21:25)
[2022-12-11] MEDS: POLYVINYL ALCOHOL OPHT DROPS 15 ML BOTTLE EACHEYE SCH ×7 (00:25→23:30)
[2022-12-11 01:57] VITALS: O2SAT 97
[2022-12-11] MEDS: ALENDRONATE SODIUM 70 MG GT SCH (05:36)
[2022-12-11] MEDS: [UNRECOGNIZED DRUG - OTHER] GT SCH (06:26)
[2022-12-11] MEDS: CARBIDOPA/LEVODOPA 25-100MG TABLET GT SCH ×3 (06:26→22:00)
[2022-12-11] MEDS: FAMOTIDINE 20 MG TABLET GT SCH (06:26)
[2022-12-11] MEDS: LEVOTHYROXINE SODIUM 125 MCG TABLET PO SCH (06:26)
[2022-12-11] MEDS: CALCIUM CARB/VITAMIN D 600-400 MG TABLET GT SCH ×2 (06:26→18:04)
[2022-12-11 08:00] VITALS: TEMP 98.7
[2022-12-11] MEDS: HYDROGEN PEROXIDE 3% 118 ML BOTTLE TP SCH ×2 (08:58→20:44)
[2022-12-11] MEDS: [UNRECOGNIZED DRUG - OTHER] GT SCH ×2 (09:00→21:00)
[2022-12-11] MEDS: VITAMINS A AND D OINT 42 GM TUBE TP SCH (09:00)
[2022-12-11] MEDS: COD LIVER OIL/ZINC OXIDE OINT 113 GM TUBE TP SCH ×2 (09:00→21:00)
[2022-12-11] MEDS: [UNRECOGNIZED DRUG - OTHER] GT SCH (09:00)
[2022-12-11 10:00] VITALS: O2SAT 98
[2022-12-11 12:43] VITALS: O2SAT 98
[2022-12-11 19:50] VITALS: O2SAT 98
[2022-12-11 20:00] VITALS: TEMP 97.7
[2022-12-11] MEDS: MINERAL OIL/PETROLAT OPHT OINT 3.5 GM TUBE EACHEYE SCH (21:00)
[2022-12-11] MEDS: PROTEIN SUPPLEMENT (PROSTAT) 30 ML LIQUID GT SCH (21:00)
[2022-12-11] MEDS: OSMOLITE 1.2 CAL 1,000 ML LIQUID GT PRN (23:30)
[2022-12-12] MEDS: POLYVINYL ALCOHOL OPHT DROPS 15 ML BOTTLE EACHEYE SCH ×6 (03:30→23:30)
[2022-12-12] MEDS: [UNRECOGNIZED DRUG - OTHER] GT SCH (06:18)
[2022-12-12] MEDS: CARBIDOPA/LEVODOPA 25-100MG TABLET GT SCH ×3 (06:18→21:44)
[2022-12-12] MEDS: CALCIUM CARB/VITAMIN D 600-400 MG TABLET GT SCH ×2 (06:18→17:09)
[2022-12-12] MEDS: LEVOTHYROXINE SODIUM 125 MCG TABLET PO SCH (06:18)
[2022-12-12] MEDS: FAMOTIDINE 20 MG TABLET GT SCH (06:19)
[2022-12-12 08:00] VITALS: TEMP 97.7
[2022-12-12] MEDS: [UNRECOGNIZED DRUG - OTHER] GT SCH ×2 (08:47→21:43)
[2022-12-12] MEDS: VITAMINS A AND D OINT 42 GM TUBE TP SCH (08:48)
[2022-12-12] MEDS: COD LIVER OIL/ZINC OXIDE OINT 113 GM TUBE TP SCH ×2 (08:48→21:43)
[2022-12-12] MEDS: [UNRECOGNIZED DRUG - OTHER] GT SCH (09:00)
[2022-12-12] MEDS: HYDROGEN PEROXIDE 3% 118 ML BOTTLE TP SCH ×2 (09:00→23:37)
[2022-12-12 09:40] VITALS: O2SAT 98
[2022-12-12 20:00] VITALS: TEMP 98.3
[2022-12-12] MEDS: MINERAL OIL/PETROLAT OPHT OINT 3.5 GM TUBE EACHEYE SCH (21:43)
[2022-12-12] MEDS: PROTEIN SUPPLEMENT (PROSTAT) 30 ML LIQUID GT SCH (21:43)
[2022-12-13 01:57] VITALS: O2SAT 97
[2022-12-13] MEDS: POLYVINYL ALCOHOL OPHT DROPS 15 ML BOTTLE EACHEYE SCH ×6 (03:47→23:32)
[2022-12-13] MEDS: CALCIUM CARB/VITAMIN D 600-400 MG TABLET GT SCH ×3 (05:49→22:59)
[2022-12-13] MEDS: [UNRECOGNIZED DRUG - OTHER] GT SCH (05:51)
[2022-12-13] MEDS: CARBIDOPA/LEVODOPA 25-100MG TABLET GT SCH ×3 (05:52→22:59)
[2022-12-13] MEDS: FAMOTIDINE 20 MG TABLET GT SCH (05:52)
[2022-12-13] MEDS: LEVOTHYROXINE SODIUM 125 MCG TABLET PO SCH (05:52)
[2022-12-13 07:58] VITALS: TEMP 98.2
[2022-12-13] MEDS: HYDROGEN PEROXIDE 3% 118 ML BOTTLE TP SCH ×2 (09:00→21:26)
[2022-12-13] MEDS: VITAMINS A AND D OINT 42 GM TUBE TP SCH (09:35)
[2022-12-13] MEDS: COD LIVER OIL/ZINC OXIDE OINT 113 GM TUBE TP SCH ×2 (09:35→21:00)
[2022-12-13] MEDS: [UNRECOGNIZED DRUG - OTHER] GT SCH ×2 (09:35→21:00)
[2022-12-13] MEDS: [UNRECOGNIZED DRUG - OTHER] GT SCH (09:52)
[2022-12-13 10:40] VITALS: O2SAT 97
[2022-12-13] MEDS: OSMOLITE 1.2 CAL 1,000 ML LIQUID GT PRN (19:16)
[2022-12-13 20:15] VITALS: O2SAT 98
[2022-12-13] MEDS: PROTEIN SUPPLEMENT (PROSTAT) 30 ML LIQUID GT SCH (21:00)
[2022-12-13] MEDS: MINERAL OIL/PETROLAT OPHT OINT 3.5 GM TUBE EACHEYE SCH (21:00)
[2022-12-14] MEDS: POLYVINYL ALCOHOL OPHT DROPS 15 ML BOTTLE EACHEYE SCH ×6 (04:06→23:30)
[2022-12-14] MEDS: CARBIDOPA/LEVODOPA 25-100MG TABLET GT SCH ×3 (05:28→21:38)
[2022-12-14] MEDS: [UNRECOGNIZED DRUG - OTHER] GT SCH (05:28)
[2022-12-14] MEDS: FAMOTIDINE 20 MG TABLET GT SCH (05:29)
[2022-12-14] MEDS: LEVOTHYROXINE SODIUM 125 MCG TABLET PO SCH (05:29)
[2022-12-14 08:00] VITALS: TEMP 98.6
[2022-12-14] MEDS: HYDROGEN PEROXIDE 3% 118 ML BOTTLE TP SCH ×2 (08:49→19:11)
[2022-12-14] MEDS: COD LIVER OIL/ZINC OXIDE OINT 113 GM TUBE TP SCH ×2 (09:33→21:36)
[2022-12-14] MEDS: [UNRECOGNIZED DRUG - OTHER] GT SCH (09:33)
[2022-12-14] MEDS: [UNRECOGNIZED DRUG - OTHER] GT SCH ×2 (09:33→21:36)
[2022-12-14] MEDS: VITAMINS A AND D OINT 42 GM TUBE TP SCH (09:34)
[2022-12-14 16:46] VITALS: O2SAT 98
[2022-12-14] MEDS: CALCIUM CARB/VITAMIN D 600-400 MG TABLET GT SCH (17:31)
[2022-12-14 19:45] VITALS: O2SAT 98
[2022-12-14 20:00] VITALS: TEMP 96.8
[2022-12-14] MEDS: MINERAL OIL/PETROLAT OPHT OINT 3.5 GM TUBE EACHEYE SCH (21:29)
[2022-12-14] MEDS: PROTEIN SUPPLEMENT (PROSTAT) 30 ML LIQUID GT SCH (21:36)
[2022-12-15] MEDS: POLYVINYL ALCOHOL OPHT DROPS 15 ML BOTTLE EACHEYE SCH ×6 (03:30→23:48)
[2022-12-15] MEDS: LEVOTHYROXINE SODIUM 125 MCG TABLET PO SCH (05:55)
[2022-12-15] MEDS: CARBIDOPA/LEVODOPA 25-100MG TABLET GT SCH ×3 (05:55→20:36)
[2022-12-15] MEDS: CALCIUM CARB/VITAMIN D 600-400 MG TABLET GT SCH ×2 (05:55→17:01)
[2022-12-15] MEDS: [UNRECOGNIZED DRUG - OTHER] GT SCH (05:55)
[2022-12-15] MEDS: FAMOTIDINE 20 MG TABLET GT SCH (05:56)
[2022-12-15 07:30] VITALS: TEMP 97.9
[2022-12-15] MEDS: HYDROGEN PEROXIDE 3% 118 ML BOTTLE TP SCH ×2 (08:15→19:18)
[2022-12-15] MEDS: [UNRECOGNIZED DRUG - OTHER] GT SCH ×2 (09:00→20:22)
[2022-12-15] MEDS: [UNRECOGNIZED DRUG - OTHER] GT SCH (09:01)
[2022-12-15] MEDS: COD LIVER OIL/ZINC OXIDE OINT 113 GM TUBE TP SCH ×2 (09:02→20:22)
[2022-12-15] MEDS: VITAMINS A AND D OINT 42 GM TUBE TP SCH (09:02)
[2022-12-15] MEDS: diphenhydrAMINE 25 MG/10 ML UDC GT PRN (09:03)
[2022-12-15] MEDS: LOPERAMIDE HCL 2 MG/15 ML GT PRN (09:03)
[2022-12-15 13:49] VITALS: O2SAT 98
[2022-12-15 19:55] VITALS: TEMP 97.1
[2022-12-15] MEDS: MINERAL OIL/PETROLAT OPHT OINT 3.5 GM TUBE EACHEYE SCH (20:22)
[2022-12-15] MEDS: PROTEIN SUPPLEMENT (PROSTAT) 30 ML LIQUID GT SCH (20:36)
[2022-12-15 20:41] VITALS: O2SAT 98
[2022-12-15] MEDS: OSMOLITE 1.2 CAL 1,000 ML LIQUID GT PRN (23:49)
[2022-12-16] MEDS: POLYVINYL ALCOHOL OPHT DROPS 15 ML BOTTLE EACHEYE SCH ×5 (04:03→19:30)
[2022-12-16] MEDS: [UNRECOGNIZED DRUG - OTHER] GT SCH (05:52)
[2022-12-16] MEDS: LEVOTHYROXINE SODIUM 125 MCG TABLET PO SCH (05:52)
[2022-12-16] MEDS: FAMOTIDINE 20 MG TABLET GT SCH (05:52)
[2022-12-16] MEDS: CARBIDOPA/LEVODOPA 25-100MG TABLET GT SCH ×3 (05:52→22:36)
[2022-12-16] MEDS: CALCIUM CARB/VITAMIN D 600-400 MG TABLET GT SCH ×2 (05:52→17:06)
[2022-12-16 07:35] VITALS: TEMP 98.6
[2022-12-16] MEDS: diphenhydrAMINE 25 MG/10 ML UDC GT PRN (08:40)
[2022-12-16] MEDS: [UNRECOGNIZED DRUG - OTHER] GT SCH ×2 (09:17→20:34)
[2022-12-16] MEDS: COD LIVER OIL/ZINC OXIDE OINT 113 GM TUBE TP SCH ×2 (09:18→20:34)
[2022-12-16] MEDS: VITAMINS A AND D OINT 42 GM TUBE TP SCH (09:18)
[2022-12-16] MEDS: [UNRECOGNIZED DRUG - OTHER] GT SCH (09:18)
[2022-12-16] MEDS: ACETAMINOPHEN 650 MG/20 ML UDC- SA PATIENTS-PAIN ONLY GT PRN (09:52)
[2022-12-16] MEDS: HYDROGEN PEROXIDE 3% 118 ML BOTTLE TP SCH ×2 (09:56→19:08)
[2022-12-16 10:55] VITALS: O2SAT 97
[2022-12-16] MEDS: PROTEIN SUPPLEMENT (PROSTAT) 30 ML LIQUID GT SCH (20:34)
[2022-12-16] MEDS: MINERAL OIL/PETROLAT OPHT OINT 3.5 GM TUBE EACHEYE SCH (20:34)
[2022-12-16 20:55] VITALS: TEMP 97.6
[2022-12-16 21:39] VITALS: O2SAT 98
[2022-12-17] MEDS: POLYVINYL ALCOHOL OPHT DROPS 15 ML BOTTLE EACHEYE SCH ×7 (00:25→23:10)
[2022-12-17] MEDS: CALCIUM CARB/VITAMIN D 600-400 MG TABLET GT SCH ×2 (05:36→17:12)
[2022-12-17] MEDS: [UNRECOGNIZED DRUG - OTHER] GT SCH (05:36)
[2022-12-17] MEDS: CARBIDOPA/LEVODOPA 25-100MG TABLET GT SCH ×3 (05:36→21:05)
[2022-12-17] MEDS: FAMOTIDINE 20 MG TABLET GT SCH (05:36)
[2022-12-17] MEDS: LEVOTHYROXINE SODIUM 125 MCG TABLET PO SCH (05:36)
[2022-12-17] MEDS: OSMOLITE 1.2 CAL 1,000 ML LIQUID GT PRN (05:37)
[2022-12-17 07:25] VITALS: O2SAT 98
[2022-12-17 07:26] VITALS: TEMP 98.4
[2022-12-17] MEDS: COD LIVER OIL/ZINC OXIDE OINT 113 GM TUBE TP SCH ×2 (09:20→20:56)
[2022-12-17] MEDS: [UNRECOGNIZED DRUG - OTHER] GT SCH ×2 (09:20→20:57)
[2022-12-17] MEDS: [UNRECOGNIZED DRUG - OTHER] GT SCH (09:20)
[2022-12-17] MEDS: VITAMINS A AND D OINT 42 GM TUBE TP SCH (09:20)
[2022-12-17] MEDS: HYDROGEN PEROXIDE 3% 118 ML BOTTLE TP SCH ×2 (09:58→19:12)
[2022-12-17 15:25] VITALS: O2SAT 98
[2022-12-17 20:00] VITALS: TEMP 96.4
[2022-12-17 20:15] VITALS: O2SAT 98
[2022-12-17] MEDS: PROTEIN SUPPLEMENT (PROSTAT) 30 ML LIQUID GT SCH (20:56)
[2022-12-17] MEDS: MINERAL OIL/PETROLAT OPHT OINT 3.5 GM TUBE EACHEYE SCH (20:56)
[2022-12-18] MEDS: POLYVINYL ALCOHOL OPHT DROPS 15 ML BOTTLE EACHEYE SCH ×6 (03:30→23:30)
[2022-12-18] MEDS: ALENDRONATE SODIUM 70 MG GT SCH (05:30)
[2022-12-18] MEDS: [UNRECOGNIZED DRUG - OTHER] GT SCH (06:13)
[2022-12-18] MEDS: LEVOTHYROXINE SODIUM 125 MCG TABLET PO SCH (06:13)
[2022-12-18] MEDS: FAMOTIDINE 20 MG TABLET GT SCH (06:13)
[2022-12-18] MEDS: CALCIUM CARB/VITAMIN D 600-400 MG TABLET GT SCH ×2 (06:13→17:32)
[2022-12-18] MEDS: CARBIDOPA/LEVODOPA 25-100MG TABLET GT SCH ×3 (06:13→21:19)
[2022-12-18 07:24] VITALS: TEMP 98.8
[2022-12-18 07:40] VITALS: O2SAT 97
[2022-12-18] MEDS: HYDROGEN PEROXIDE 3% 118 ML BOTTLE TP SCH ×2 (08:13→19:15)
[2022-12-18] MEDS: [UNRECOGNIZED DRUG - OTHER] GT SCH ×2 (09:01→21:19)
[2022-12-18] MEDS: VITAMINS A AND D OINT 42 GM TUBE TP SCH (09:01)
[2022-12-18] MEDS: COD LIVER OIL/ZINC OXIDE OINT 113 GM TUBE TP SCH ×2 (09:01→21:19)
[2022-12-18] MEDS: [UNRECOGNIZED DRUG - OTHER] GT SCH (09:01)
[2022-12-18] MEDS: diphenhydrAMINE 25 MG/10 ML UDC GT PRN (10:35)
[2022-12-18] MEDS: OSMOLITE 1.2 CAL 1,000 ML LIQUID GT PRN (13:06)
[2022-12-18 19:45] VITALS: O2SAT 98
[2022-12-18 20:00] VITALS: TEMP 96.7
[2022-12-18] MEDS: PROTEIN SUPPLEMENT (PROSTAT) 30 ML LIQUID GT SCH (21:19)
[2022-12-18] MEDS: MINERAL OIL/PETROLAT OPHT OINT 3.5 GM TUBE EACHEYE SCH (21:19)
[2022-12-19] MEDS: POLYVINYL ALCOHOL OPHT DROPS 15 ML BOTTLE EACHEYE SCH ×6 (03:53→23:30)
[2022-12-19] MEDS: CALCIUM CARB/VITAMIN D 600-400 MG TABLET GT SCH ×2 (05:57→17:11)
[2022-12-19] MEDS: [UNRECOGNIZED DRUG - OTHER] GT SCH (05:57)
[2022-12-19] MEDS: FAMOTIDINE 20 MG TABLET GT SCH (05:57)
[2022-12-19] MEDS: LEVOTHYROXINE SODIUM 125 MCG TABLET PO SCH (05:57)
[2022-12-19] MEDS: CARBIDOPA/LEVODOPA 25-100MG TABLET GT SCH ×3 (05:57→21:11)
[2022-12-19 08:00] VITALS: TEMP 98.6
[2022-12-19 08:35] VITALS: O2SAT 98
[2022-12-19] MEDS: VITAMINS A AND D OINT 42 GM TUBE TP SCH (09:25)
[2022-12-19] MEDS: [UNRECOGNIZED DRUG - OTHER] GT SCH (09:25)
[2022-12-19] MEDS: [UNRECOGNIZED DRUG - OTHER] GT SCH ×2 (09:25→20:53)
[2022-12-19] MEDS: COD LIVER OIL/ZINC OXIDE OINT 113 GM TUBE TP SCH ×2 (09:25→20:53)
[2022-12-19] MEDS: HYDROGEN PEROXIDE 3% 118 ML BOTTLE TP SCH ×2 (09:42→19:26)
[2022-12-19 19:45] VITALS: O2SAT 98
[2022-12-19 19:52] VITALS: TEMP 97.8
[2022-12-19] MEDS: MINERAL OIL/PETROLAT OPHT OINT 3.5 GM TUBE EACHEYE SCH (20:53)
[2022-12-19] MEDS: PROTEIN SUPPLEMENT (PROSTAT) 30 ML LIQUID GT SCH (20:53)
[2022-12-20] MEDS: POLYVINYL ALCOHOL OPHT DROPS 15 ML BOTTLE EACHEYE SCH ×6 (04:26→23:30)
[2022-12-20] MEDS: CALCIUM CARB/VITAMIN D 600-400 MG TABLET GT SCH ×2 (05:40→17:11)
[2022-12-20] MEDS: CARBIDOPA/LEVODOPA 25-100MG TABLET GT SCH ×3 (05:40→21:02)
[2022-12-20] MEDS: [UNRECOGNIZED DRUG - OTHER] GT SCH (05:40)
[2022-12-20] MEDS: LEVOTHYROXINE SODIUM 125 MCG TABLET PO SCH (05:40)
[2022-12-20] MEDS: FAMOTIDINE 20 MG TABLET GT SCH (05:40)
[2022-12-20] MEDS: HYDROGEN PEROXIDE 3% 118 ML BOTTLE TP SCH ×2 (07:22→19:08)
[2022-12-20 07:56] VITALS: TEMP 98.5
[2022-12-20] MEDS: [UNRECOGNIZED DRUG - OTHER] GT SCH (08:05)
[2022-12-20] MEDS: VITAMINS A AND D OINT 42 GM TUBE TP SCH (08:05)
[2022-12-20] MEDS: COD LIVER OIL/ZINC OXIDE OINT 113 GM TUBE TP SCH ×2 (08:05→20:53)
[2022-12-20] MEDS: [UNRECOGNIZED DRUG - OTHER] GT SCH ×2 (08:05→20:53)
[2022-12-20 10:37] VITALS: O2SAT 98
[2022-12-20] MEDS: OSMOLITE 1.2 CAL 1,000 ML LIQUID GT PRN (15:04)
[2022-12-20 20:00] VITALS: TEMP 97.8
[2022-12-20 20:15] VITALS: O2SAT 98
[2022-12-20] MEDS: MINERAL OIL/PETROLAT OPHT OINT 3.5 GM TUBE EACHEYE SCH (20:53)
[2022-12-20] MEDS: PROTEIN SUPPLEMENT (PROSTAT) 30 ML LIQUID GT SCH (20:53)
[2022-12-21] MEDS: POLYVINYL ALCOHOL OPHT DROPS 15 ML BOTTLE EACHEYE SCH ×6 (03:30→23:59)
[2022-12-21] MEDS: LEVOTHYROXINE SODIUM 125 MCG TABLET PO SCH (05:07)
[2022-12-21] MEDS: CARBIDOPA/LEVODOPA 25-100MG TABLET GT SCH ×3 (05:07→21:45)
[2022-12-21] MEDS: [UNRECOGNIZED DRUG - OTHER] GT SCH (05:07)
[2022-12-21] MEDS: CALCIUM CARB/VITAMIN D 600-400 MG TABLET GT SCH ×2 (05:07→17:36)
[2022-12-21] MEDS: FAMOTIDINE 20 MG TABLET GT SCH (05:58)
[2022-12-21 07:53] VITALS: TEMP 97.7
[2022-12-21] MEDS: [UNRECOGNIZED DRUG - OTHER] GT SCH ×2 (08:19→20:06)
[2022-12-21] MEDS: [UNRECOGNIZED DRUG - OTHER] GT SCH (08:19)
[2022-12-21] MEDS: COD LIVER OIL/ZINC OXIDE OINT 113 GM TUBE TP SCH ×2 (08:20→20:06)
[2022-12-21] MEDS: VITAMINS A AND D OINT 42 GM TUBE TP SCH (08:20)
[2022-12-21] MEDS: HYDROGEN PEROXIDE 3% 118 ML BOTTLE TP SCH ×2 (09:00→19:36)
[2022-12-21] MEDS: diphenhydrAMINE 25 MG/10 ML UDC GT PRN (09:38)
[2022-12-21] MEDS: OSMOLITE 1.2 CAL 1,000 ML LIQUID GT PRN (12:24)
[2022-12-21 13:47] VITALS: O2SAT 98
[2022-12-21 20:00] VITALS: TEMP 96.7
[2022-12-21] MEDS: MINERAL OIL/PETROLAT OPHT OINT 3.5 GM TUBE EACHEYE SCH (20:05)
[2022-12-21] MEDS: PROTEIN SUPPLEMENT (PROSTAT) 30 ML LIQUID GT SCH (20:06)
[2022-12-21 20:40] VITALS: O2SAT 98
[2022-12-22] MEDS: POLYVINYL ALCOHOL OPHT DROPS 15 ML BOTTLE EACHEYE SCH ×5 (03:30→20:08)
[2022-12-22] MEDS: CARBIDOPA/LEVODOPA 25-100MG TABLET GT SCH ×3 (05:46→21:26)
[2022-12-22] MEDS: FAMOTIDINE 20 MG TABLET GT SCH (05:46)
[2022-12-22] MEDS: [UNRECOGNIZED DRUG - OTHER] GT SCH (05:46)
[2022-12-22] MEDS: CALCIUM CARB/VITAMIN D 600-400 MG TABLET GT SCH ×2 (05:46→17:13)
[2022-12-22] MEDS: LEVOTHYROXINE SODIUM 125 MCG TABLET PO SCH (05:46)
[2022-12-22 07:54] VITALS: TEMP 97.6
[2022-12-22] MEDS: [UNRECOGNIZED DRUG - OTHER] GT SCH (09:10)
[2022-12-22] MEDS: [UNRECOGNIZED DRUG - OTHER] GT SCH ×2 (09:10→20:08)
[2022-12-22] MEDS: COD LIVER OIL/ZINC OXIDE OINT 113 GM TUBE TP SCH ×2 (09:11→20:08)
[2022-12-22] MEDS: VITAMINS A AND D OINT 42 GM TUBE TP SCH (09:11)
[2022-12-22] MEDS: HYDROGEN PEROXIDE 3% 118 ML BOTTLE TP SCH ×2 (09:30→19:14)
[2022-12-22 10:40] VITALS: O2SAT 97
[2022-12-22 19:49] VITALS: TEMP 97.1
[2022-12-22 20:00] VITALS: O2SAT 98
[2022-12-22] MEDS: PROTEIN SUPPLEMENT (PROSTAT) 30 ML LIQUID GT SCH (20:08)
[2022-12-22] MEDS: MINERAL OIL/PETROLAT OPHT OINT 3.5 GM TUBE EACHEYE SCH (20:08)
[2022-12-22] MEDS: diphenhydrAMINE 25 MG/10 ML UDC GT PRN (20:08)
[2022-12-23] MEDS: POLYVINYL ALCOHOL OPHT DROPS 15 ML BOTTLE EACHEYE SCH ×7 (00:12→23:30)
[2022-12-23] MEDS: [UNRECOGNIZED DRUG - OTHER] GT SCH (05:38)
[2022-12-23] MEDS: CARBIDOPA/LEVODOPA 25-100MG TABLET GT SCH ×3 (05:38→21:52)
[2022-12-23] MEDS: LEVOTHYROXINE SODIUM 125 MCG TABLET PO SCH (05:38)
[2022-12-23] MEDS: FAMOTIDINE 20 MG TABLET GT SCH (05:38)
[2022-12-23] MEDS: CALCIUM CARB/VITAMIN D 600-400 MG TABLET GT SCH ×2 (05:38→17:54)
[2022-12-23 07:37] VITALS: TEMP 98.7
[2022-12-23] MEDS: VITAMINS A AND D OINT 42 GM TUBE TP SCH (09:00)
[2022-12-23] MEDS: COD LIVER OIL/ZINC OXIDE OINT 113 GM TUBE TP SCH ×2 (09:00→21:52)
[2022-12-23] MEDS: HYDROGEN PEROXIDE 3% 118 ML BOTTLE TP SCH ×2 (09:00→19:00)
[2022-12-23] MEDS: [UNRECOGNIZED DRUG - OTHER] GT SCH ×2 (09:00→21:52)
[2022-12-23] MEDS: [UNRECOGNIZED DRUG - OTHER] GT SCH (09:00)
[2022-12-23 09:01] VITALS: O2SAT 97
[2022-12-23] MEDS: OSMOLITE 1.2 CAL 1,000 ML LIQUID GT PRN (14:43)
[2022-12-23 19:35] VITALS: O2SAT 98
[2022-12-23 19:48] VITALS: TEMP 98.6
[2022-12-23] MEDS: PROTEIN SUPPLEMENT (PROSTAT) 30 ML LIQUID GT SCH (21:52)
[2022-12-23] MEDS: MINERAL OIL/PETROLAT OPHT OINT 3.5 GM TUBE EACHEYE SCH (21:52)
[2022-12-24] MEDS: POLYVINYL ALCOHOL OPHT DROPS 15 ML BOTTLE EACHEYE SCH ×6 (03:30→23:30)
[2022-12-24] MEDS: CARBIDOPA/LEVODOPA 25-100MG TABLET GT SCH ×3 (05:18→21:40)
[2022-12-24] MEDS: [UNRECOGNIZED DRUG - OTHER] GT SCH (05:18)
[2022-12-24] MEDS: LEVOTHYROXINE SODIUM 125 MCG TABLET PO SCH (05:18)
[2022-12-24] MEDS: CALCIUM CARB/VITAMIN D 600-400 MG TABLET GT SCH ×2 (05:18→17:23)
[2022-12-24] MEDS: FAMOTIDINE 20 MG TABLET GT SCH (05:31)
[2022-12-24 07:17] VITALS: O2SAT 98
[2022-12-24 07:27] VITALS: TEMP 98.6
[2022-12-24] MEDS: HYDROGEN PEROXIDE 3% 118 ML BOTTLE TP SCH ×2 (09:00→19:20)
[2022-12-24] MEDS: [UNRECOGNIZED DRUG - OTHER] GT SCH ×2 (09:40→21:40)
[2022-12-24] MEDS: COD LIVER OIL/ZINC OXIDE OINT 113 GM TUBE TP SCH ×2 (09:41→21:40)
[2022-12-24] MEDS: [UNRECOGNIZED DRUG - OTHER] GT SCH (09:41)
[2022-12-24] MEDS: VITAMINS A AND D OINT 42 GM TUBE TP SCH (09:41)
[2022-12-24] MEDS: LOPERAMIDE HCL 2 MG/15 ML GT PRN (09:42)
[2022-12-24] MEDS ORDERED: COVID-19 VACC, SPIKEVAX (PHA) 50 MCG/0.5 ML VIAL IM ONE (14:00)
[2022-12-24 14:18] VITALS: O2SAT 98
[2022-12-24 19:45] VITALS: O2SAT 98
[2022-12-24 20:00] VITALS: TEMP 99.4
[2022-12-24] MEDS: MINERAL OIL/PETROLAT OPHT OINT 3.5 GM TUBE EACHEYE SCH (21:40)
[2022-12-24] MEDS: PROTEIN SUPPLEMENT (PROSTAT) 30 ML LIQUID GT SCH (21:40)
[2022-12-24] MEDS: ACETAMINOPHEN 650 MG/20 ML UDC- SA PATIENTS-PAIN ONLY GT PRN (23:11)
[2022-12-25] VITALS (8 sets, daily range): TEMP 97–98.8; O2SAT 98
[2022-12-25] MEDS: POLYVINYL ALCOHOL OPHT DROPS 15 ML BOTTLE EACHEYE SCH ×6 (04:28→23:32)
[2022-12-25] MEDS: CARBIDOPA/LEVODOPA 25-100MG TABLET GT SCH ×3 (05:07→21:03)
[2022-12-25] MEDS: CALCIUM CARB/VITAMIN D 600-400 MG TABLET GT SCH ×2 (05:07→17:44)
[2022-12-25] MEDS: [UNRECOGNIZED DRUG - OTHER] GT SCH (05:07)
[2022-12-25] MEDS: ALENDRONATE SODIUM 70 MG GT SCH (05:07)
[2022-12-25] MEDS: FAMOTIDINE 20 MG TABLET GT SCH (05:52)
[2022-12-25] MEDS: LEVOTHYROXINE SODIUM 125 MCG TABLET PO SCH (05:52)
[2022-12-25] MEDS: HYDROGEN PEROXIDE 3% 118 ML BOTTLE TP SCH ×2 (09:00→19:17)
[2022-12-25] MEDS: [UNRECOGNIZED DRUG - OTHER] GT SCH (09:53)
[2022-12-25] MEDS: COD LIVER OIL/ZINC OXIDE OINT 113 GM TUBE TP SCH ×2 (09:53→20:57)
[2022-12-25] MEDS: [UNRECOGNIZED DRUG - OTHER] GT SCH ×2 (09:53→20:57)
[2022-12-25] MEDS: VITAMINS A AND D OINT 42 GM TUBE TP SCH (09:53)
[2022-12-25] MEDS: OSMOLITE 1.2 CAL 1,000 ML LIQUID GT PRN (19:25)
[2022-12-25] MEDS: MINERAL OIL/PETROLAT OPHT OINT 3.5 GM TUBE EACHEYE SCH (20:55)
[2022-12-25] MEDS: PROTEIN SUPPLEMENT (PROSTAT) 30 ML LIQUID GT SCH (20:57)
[2022-12-26] VITALS (8 sets, daily range): TEMP 97.7–99.9; O2SAT 98
[2022-12-26] MEDS: POLYVINYL ALCOHOL OPHT DROPS 15 ML BOTTLE EACHEYE SCH ×6 (03:30→23:30)
[2022-12-26] MEDS: LEVOTHYROXINE SODIUM 125 MCG TABLET PO SCH (06:04)
[2022-12-26] MEDS: [UNRECOGNIZED DRUG - OTHER] GT SCH (06:04)
[2022-12-26] MEDS: CALCIUM CARB/VITAMIN D 600-400 MG TABLET GT SCH ×2 (06:04→18:51)
[2022-12-26] MEDS: FAMOTIDINE 20 MG TABLET GT SCH (06:04)
[2022-12-26] MEDS: CARBIDOPA/LEVODOPA 25-100MG TABLET GT SCH ×3 (06:04→22:03)
[2022-12-26] MEDS: VITAMINS A AND D OINT 42 GM TUBE TP SCH (09:00)
[2022-12-26] MEDS: COD LIVER OIL/ZINC OXIDE OINT 113 GM TUBE TP SCH ×2 (09:00→20:29)
[2022-12-26] MEDS: HYDROGEN PEROXIDE 3% 118 ML BOTTLE TP SCH ×2 (09:00→19:11)
[2022-12-26] MEDS: [UNRECOGNIZED DRUG - OTHER] GT SCH (09:00)
[2022-12-26] MEDS: [UNRECOGNIZED DRUG - OTHER] GT SCH ×2 (09:00→20:28)
[2022-12-26] MEDS: MINERAL OIL/PETROLAT OPHT OINT 3.5 GM TUBE EACHEYE SCH (20:28)
[2022-12-26] MEDS: PROTEIN SUPPLEMENT (PROSTAT) 30 ML LIQUID GT SCH (20:28)
[2022-12-26] MEDS: OSMOLITE 1.2 CAL 1,000 ML LIQUID GT PRN (20:29)
[2022-12-27] VITALS (7 sets, daily range): BP systolic 128; BP diastolic 70; TEMP 98–98.8; O2SAT 98
[2022-12-27] MEDS: POLYVINYL ALCOHOL OPHT DROPS 15 ML BOTTLE EACHEYE SCH ×6 (03:32→23:30)
[2022-12-27] MEDS: CARBIDOPA/LEVODOPA 25-100MG TABLET GT SCH ×3 (05:27→21:20)
[2022-12-27] MEDS: CALCIUM CARB/VITAMIN D 600-400 MG TABLET GT SCH ×2 (05:27→18:00)
[2022-12-27] MEDS: LEVOTHYROXINE SODIUM 125 MCG TABLET PO SCH (05:27)
[2022-12-27] MEDS: [UNRECOGNIZED DRUG - OTHER] GT SCH (05:27)
[2022-12-27] MEDS: FAMOTIDINE 20 MG TABLET GT SCH (05:33)
[2022-12-27] MEDS: HYDROGEN PEROXIDE 3% 118 ML BOTTLE TP SCH ×2 (08:39→19:11)
[2022-12-27] MEDS: COD LIVER OIL/ZINC OXIDE OINT 113 GM TUBE TP SCH ×2 (09:00→21:20)
[2022-12-27] MEDS: VITAMINS A AND D OINT 42 GM TUBE TP SCH (09:00)
[2022-12-27] MEDS: [UNRECOGNIZED DRUG - OTHER] GT SCH ×2 (09:00→21:19)
[2022-12-27] MEDS: [UNRECOGNIZED DRUG - OTHER] GT SCH (09:00)
[2022-12-27] MEDS: MINERAL OIL/PETROLAT OPHT OINT 3.5 GM TUBE EACHEYE SCH (21:18)
[2022-12-27] MEDS: PROTEIN SUPPLEMENT (PROSTAT) 30 ML LIQUID GT SCH (21:20)
[2022-12-27] MEDS: OSMOLITE 1.2 CAL 1,000 ML LIQUID GT PRN (21:23)
[2022-12-28] MEDS: POLYVINYL ALCOHOL OPHT DROPS 15 ML BOTTLE EACHEYE SCH ×6 (03:30→23:30)
[2022-12-28] MEDS: LEVOTHYROXINE SODIUM 125 MCG TABLET PO SCH (05:38)
[2022-12-28] MEDS: CALCIUM CARB/VITAMIN D 600-400 MG TABLET GT SCH ×2 (05:38→18:00)
[2022-12-28] MEDS: [UNRECOGNIZED DRUG - OTHER] GT SCH (05:38)
[2022-12-28] MEDS: FAMOTIDINE 20 MG TABLET GT SCH (05:38)
[2022-12-28] MEDS: CARBIDOPA/LEVODOPA 25-100MG TABLET GT SCH ×3 (05:38→21:49)
[2022-12-28] MEDS: HYDROGEN PEROXIDE 3% 118 ML BOTTLE TP SCH ×2 (07:18→19:20)
[2022-12-28 07:31] VITALS: TEMP 98.8
[2022-12-28] MEDS: [UNRECOGNIZED DRUG - OTHER] GT SCH (09:00)
[2022-12-28] MEDS: VITAMINS A AND D OINT 42 GM TUBE TP SCH (09:00)
[2022-12-28] MEDS: [UNRECOGNIZED DRUG - OTHER] GT SCH ×2 (09:00→21:47)
[2022-12-28] MEDS: COD LIVER OIL/ZINC OXIDE OINT 113 GM TUBE TP SCH ×2 (09:00→21:48)
[2022-12-28 10:14] VITALS: O2SAT 98
[2022-12-28 20:00] VITALS: TEMP 97.4
[2022-12-28 21:00] VITALS: O2SAT 98
[2022-12-28] MEDS: MINERAL OIL/PETROLAT OPHT OINT 3.5 GM TUBE EACHEYE SCH (21:47)
[2022-12-28] MEDS: PROTEIN SUPPLEMENT (PROSTAT) 30 ML LIQUID GT SCH (21:47)
[2022-12-28] MEDS: ACETAMINOPHEN 650 MG/20 ML UDC- SA PATIENTS-PAIN ONLY GT PRN (22:09)
[2022-12-28] MEDS: diphenhydrAMINE 25 MG/10 ML UDC GT PRN (22:09)
[2022-12-29] MEDS: POLYVINYL ALCOHOL OPHT DROPS 15 ML BOTTLE EACHEYE SCH ×6 (03:30→23:30)
[2022-12-29] MEDS: CALCIUM CARB/VITAMIN D 600-400 MG TABLET GT SCH ×2 (06:55→17:42)
[2022-12-29] MEDS: FAMOTIDINE 20 MG TABLET GT SCH (06:55)
[2022-12-29] MEDS: [UNRECOGNIZED DRUG - OTHER] GT SCH (06:55)
[2022-12-29] MEDS: LEVOTHYROXINE SODIUM 125 MCG TABLET PO SCH (06:55)
[2022-12-29] MEDS: CARBIDOPA/LEVODOPA 25-100MG TABLET GT SCH ×3 (06:55→21:52)
[2022-12-29 08:00] VITALS: TEMP 97.9
[2022-12-29] MEDS: HYDROGEN PEROXIDE 3% 118 ML BOTTLE TP SCH ×2 (08:50→21:23)
[2022-12-29] MEDS: VITAMINS A AND D OINT 42 GM TUBE TP SCH (09:23)
[2022-12-29] MEDS: COD LIVER OIL/ZINC OXIDE OINT 113 GM TUBE TP SCH ×2 (09:23→20:27)
[2022-12-29] MEDS: [UNRECOGNIZED DRUG - OTHER] GT SCH (09:29)
[2022-12-29] MEDS: [UNRECOGNIZED DRUG - OTHER] GT SCH ×2 (09:29→20:26)
[2022-12-29 14:15] VITALS: O2SAT 98
[2022-12-29 20:00] VITALS: TEMP 98.4
[2022-12-29] MEDS: MINERAL OIL/PETROLAT OPHT OINT 3.5 GM TUBE EACHEYE SCH (20:26)
[2022-12-29] MEDS: PROTEIN SUPPLEMENT (PROSTAT) 30 ML LIQUID GT SCH (20:27)
[2022-12-30] MEDS: OSMOLITE 1.2 CAL 1,000 ML LIQUID GT PRN ×2 (00:33→23:33)
[2022-12-30 02:06] VITALS: O2SAT 96
[2022-12-30] MEDS: POLYVINYL ALCOHOL OPHT DROPS 15 ML BOTTLE EACHEYE SCH ×6 (03:50→23:51)
[2022-12-30] MEDS: CALCIUM CARB/VITAMIN D 600-400 MG TABLET GT SCH ×2 (05:10→17:19)
[2022-12-30] MEDS: [UNRECOGNIZED DRUG - OTHER] GT SCH (05:10)
[2022-12-30] MEDS: CARBIDOPA/LEVODOPA 25-100MG TABLET GT SCH ×3 (05:10→22:52)
[2022-12-30] MEDS: LEVOTHYROXINE SODIUM 125 MCG TABLET PO SCH (05:10)
[2022-12-30] MEDS: FAMOTIDINE 20 MG TABLET GT SCH (05:41)
[2022-12-30] MEDS: HYDROGEN PEROXIDE 3% 118 ML BOTTLE TP SCH ×2 (07:20→21:45)
[2022-12-30 07:26] VITALS: TEMP 98.3
[2022-12-30] MEDS: [UNRECOGNIZED DRUG - OTHER] GT SCH (08:44)
[2022-12-30] MEDS: COD LIVER OIL/ZINC OXIDE OINT 113 GM TUBE TP SCH ×2 (08:44→21:33)
[2022-12-30] MEDS: [UNRECOGNIZED DRUG - OTHER] GT SCH ×2 (08:44→21:31)
[2022-12-30] MEDS: VITAMINS A AND D OINT 42 GM TUBE TP SCH (08:44)
[2022-12-30 10:40] VITALS: O2SAT 98
[2022-12-30 20:00] VITALS: TEMP 98.5
[2022-12-30] MEDS: MINERAL OIL/PETROLAT OPHT OINT 3.5 GM TUBE EACHEYE SCH (21:00)
[2022-12-30] MEDS: PROTEIN SUPPLEMENT (PROSTAT) 30 ML LIQUID GT SCH (21:32)
[2022-12-31 01:51] VITALS: O2SAT 97
[2022-12-31] MEDS: POLYVINYL ALCOHOL OPHT DROPS 15 ML BOTTLE EACHEYE SCH ×6 (03:43→23:30)
[2022-12-31] MEDS: CARBIDOPA/LEVODOPA 25-100MG TABLET GT SCH ×3 (05:37→21:42)
[2022-12-31] MEDS: LEVOTHYROXINE SODIUM 125 MCG TABLET PO SCH (05:37)
[2022-12-31] MEDS: FAMOTIDINE 20 MG TABLET GT SCH (05:38)
[2022-12-31] MEDS: [UNRECOGNIZED DRUG - OTHER] GT SCH (05:38)
[2022-12-31] MEDS: CALCIUM CARB/VITAMIN D 600-400 MG TABLET GT SCH ×2 (05:38→17:09)
[2022-12-31 07:28] VITALS: TEMP 97.8
[2022-12-31 08:08] VITALS: O2SAT 98
[2022-12-31] MEDS: HYDROGEN PEROXIDE 3% 118 ML BOTTLE TP SCH ×2 (08:08→19:20)
[2022-12-31] MEDS: COD LIVER OIL/ZINC OXIDE OINT 113 GM TUBE TP SCH ×2 (09:00→21:41)
[2022-12-31] MEDS: VITAMINS A AND D OINT 42 GM TUBE TP SCH (09:00)
[2022-12-31] MEDS: [UNRECOGNIZED DRUG - OTHER] GT SCH ×2 (09:00→21:41)
[2022-12-31] MEDS: [UNRECOGNIZED DRUG - OTHER] GT SCH (09:00)
[2022-12-31 13:25] VITALS: O2SAT 98
[2022-12-31] MEDS: diphenhydrAMINE 25 MG/10 ML UDC GT PRN (14:27)
[2022-12-31 19:16] VITALS: O2SAT 97
[2022-12-31 20:00] VITALS: TEMP 98.4
[2022-12-31] MEDS: PROTEIN SUPPLEMENT (PROSTAT) 30 ML LIQUID GT SCH (21:41)
[2022-12-31] MEDS: MINERAL OIL/PETROLAT OPHT OINT 3.5 GM TUBE EACHEYE SCH (21:41)
[2022-12-31] MEDS: OSMOLITE 1.2 CAL 1,000 ML LIQUID GT PRN (21:51)
[2023-01-01] MEDS: POLYVINYL ALCOHOL OPHT DROPS 15 ML BOTTLE EACHEYE SCH ×6 (03:30→23:30)
[2023-01-01] MEDS: [UNRECOGNIZED DRUG - OTHER] GT SCH (05:47)
[2023-01-01] MEDS: FAMOTIDINE 20 MG TABLET GT SCH (05:47)
[2023-01-01] MEDS: LEVOTHYROXINE SODIUM 125 MCG TABLET PO SCH (05:47)
[2023-01-01] MEDS: ALENDRONATE SODIUM 70 MG GT SCH (05:47)
[2023-01-01] MEDS: CALCIUM CARB/VITAMIN D 600-400 MG TABLET GT SCH ×2 (05:47→17:23)
[2023-01-01] MEDS: CARBIDOPA/LEVODOPA 25-100MG TABLET GT SCH ×3 (05:47→21:23)
[2023-01-01 08:00] VITALS: TEMP 97.5
[2023-01-01 08:45] VITALS: O2SAT 98
[2023-01-01] MEDS: [UNRECOGNIZED DRUG - OTHER] GT SCH (09:06)
[2023-01-01] MEDS: [UNRECOGNIZED DRUG - OTHER] GT SCH ×2 (09:06→21:23)
[2023-01-01] MEDS: COD LIVER OIL/ZINC OXIDE OINT 113 GM TUBE TP SCH ×2 (09:06→21:23)
[2023-01-01] MEDS: VITAMINS A AND D OINT 42 GM TUBE TP SCH (09:07)
[2023-01-01] MEDS: HYDROGEN PEROXIDE 3% 118 ML BOTTLE TP SCH ×2 (09:13→19:21)
[2023-01-01] MEDS: OSMOLITE 1.2 CAL 1,000 ML LIQUID GT PRN (19:13)
[2023-01-01 20:00] VITALS: TEMP 98.5
[2023-01-01] MEDS: MINERAL OIL/PETROLAT OPHT OINT 3.5 GM TUBE EACHEYE SCH (21:23)
[2023-01-01] MEDS: PROTEIN SUPPLEMENT (PROSTAT) 30 ML LIQUID GT SCH (21:23)
[2023-01-01 23:11] VITALS: O2SAT 97
[2023-01-02] MEDS: POLYVINYL ALCOHOL OPHT DROPS 15 ML BOTTLE EACHEYE SCH ×6 (03:30→23:23)
[2023-01-02] MEDS: CARBIDOPA/LEVODOPA 25-100MG TABLET GT SCH ×3 (05:36→22:58)
[2023-01-02] MEDS: LEVOTHYROXINE SODIUM 125 MCG TABLET PO SCH (05:36)
[2023-01-02] MEDS: CALCIUM CARB/VITAMIN D 600-400 MG TABLET GT SCH ×2 (05:36→18:05)
[2023-01-02] MEDS: FAMOTIDINE 20 MG TABLET GT SCH (05:36)
[2023-01-02] MEDS: [UNRECOGNIZED DRUG - OTHER] GT SCH (05:36)
[2023-01-02 08:00] VITALS: TEMP 97.8
[2023-01-02] MEDS: HYDROGEN PEROXIDE 3% 118 ML BOTTLE TP SCH ×2 (09:00→21:57)
[2023-01-02] MEDS: [UNRECOGNIZED DRUG - OTHER] GT SCH ×2 (09:23→20:46)
[2023-01-02] MEDS: COD LIVER OIL/ZINC OXIDE OINT 113 GM TUBE TP SCH ×2 (09:26→20:39)
[2023-01-02] MEDS: VITAMINS A AND D OINT 42 GM TUBE TP SCH (09:26)
[2023-01-02] MEDS: [UNRECOGNIZED DRUG - OTHER] GT SCH (09:26)
[2023-01-02 09:30] VITALS: O2SAT 98
[2023-01-02 19:30] VITALS: O2SAT 96
[2023-01-02 20:18] VITALS: TEMP 98.6
[2023-01-02] MEDS: MINERAL OIL/PETROLAT OPHT OINT 3.5 GM TUBE EACHEYE SCH (20:36)
[2023-01-02] MEDS: PROTEIN SUPPLEMENT (PROSTAT) 30 ML LIQUID GT SCH (20:37)
[2023-01-03] MEDS: POLYVINYL ALCOHOL OPHT DROPS 15 ML BOTTLE EACHEYE SCH ×6 (03:49→23:54)
[2023-01-03] MEDS: [UNRECOGNIZED DRUG - OTHER] GT SCH (05:11)
[2023-01-03] MEDS: CALCIUM CARB/VITAMIN D 600-400 MG TABLET GT SCH ×2 (05:11→17:07)
[2023-01-03] MEDS: CARBIDOPA/LEVODOPA 25-100MG TABLET GT SCH ×3 (05:12→21:54)
[2023-01-03] MEDS: LEVOTHYROXINE SODIUM 125 MCG TABLET PO SCH (05:12)
[2023-01-03] MEDS: FAMOTIDINE 20 MG TABLET GT SCH (06:07)
[2023-01-03 08:00] VITALS: TEMP 97.6
[2023-01-03] MEDS: HYDROGEN PEROXIDE 3% 118 ML BOTTLE TP SCH ×2 (09:00→19:07)
[2023-01-03] MEDS: [UNRECOGNIZED DRUG - OTHER] GT SCH ×2 (09:26→21:54)
[2023-01-03] MEDS: [UNRECOGNIZED DRUG - OTHER] GT SCH (09:45)
[2023-01-03] MEDS: VITAMINS A AND D OINT 42 GM TUBE TP SCH (09:45)
[2023-01-03] MEDS: COD LIVER OIL/ZINC OXIDE OINT 113 GM TUBE TP SCH ×2 (09:45→21:54)
[2023-01-03 10:40] VITALS: O2SAT 98
[2023-01-03] MEDS: OSMOLITE 1.2 CAL 1,000 ML LIQUID GT PRN (17:09)
[2023-01-03 19:47] VITALS: TEMP 97.5
[2023-01-03 20:55] VITALS: O2SAT 97
[2023-01-03] MEDS: PROTEIN SUPPLEMENT (PROSTAT) 30 ML LIQUID GT SCH (21:54)
[2023-01-03] MEDS: MINERAL OIL/PETROLAT OPHT OINT 3.5 GM TUBE EACHEYE SCH (21:54)
[2023-01-04] MEDS: POLYVINYL ALCOHOL OPHT DROPS 15 ML BOTTLE EACHEYE SCH ×6 (03:30→23:32)
[2023-01-04] MEDS: LEVOTHYROXINE SODIUM 125 MCG TABLET PO SCH (06:04)
[2023-01-04] MEDS: FAMOTIDINE 20 MG TABLET GT SCH (06:04)
[2023-01-04] MEDS: [UNRECOGNIZED DRUG - OTHER] GT SCH (06:04)
[2023-01-04] MEDS: CARBIDOPA/LEVODOPA 25-100MG TABLET GT SCH ×3 (06:04→21:27)
[2023-01-04] MEDS: CALCIUM CARB/VITAMIN D 600-400 MG TABLET GT SCH ×2 (06:04→17:33)
[2023-01-04 08:00] VITALS: TEMP 97.8
[2023-01-04] MEDS: HYDROGEN PEROXIDE 3% 118 ML BOTTLE TP SCH ×2 (08:07→19:07)
[2023-01-04] MEDS: [UNRECOGNIZED DRUG - OTHER] GT SCH (09:50)
[2023-01-04] MEDS: [UNRECOGNIZED DRUG - OTHER] GT SCH ×2 (09:50→21:26)
[2023-01-04] MEDS: COD LIVER OIL/ZINC OXIDE OINT 113 GM TUBE TP SCH ×2 (09:51→21:26)
[2023-01-04] MEDS: VITAMINS A AND D OINT 42 GM TUBE TP SCH (09:51)
[2023-01-04 10:50] VITALS: O2SAT 99
[2023-01-04 19:56] VITALS: O2SAT 97
[2023-01-04 20:00] VITALS: TEMP 98.4
[2023-01-04] MEDS: MINERAL OIL/PETROLAT OPHT OINT 3.5 GM TUBE EACHEYE SCH (21:25)
[2023-01-04] MEDS: PROTEIN SUPPLEMENT (PROSTAT) 30 ML LIQUID GT SCH (21:26)
[2023-01-04] MEDS: OSMOLITE 1.2 CAL 1,000 ML LIQUID GT PRN (21:38)
[2023-01-05] MEDS: POLYVINYL ALCOHOL OPHT DROPS 15 ML BOTTLE EACHEYE SCH ×5 (03:30→19:30)
[2023-01-05] MEDS: FAMOTIDINE 20 MG TABLET GT SCH (05:19)
[2023-01-05] MEDS: LEVOTHYROXINE SODIUM 125 MCG TABLET PO SCH (05:19)
[2023-01-05] MEDS: [UNRECOGNIZED DRUG - OTHER] GT SCH (05:19)
[2023-01-05] MEDS: CARBIDOPA/LEVODOPA 25-100MG TABLET GT SCH ×3 (05:19→21:34)
[2023-01-05] MEDS: CALCIUM CARB/VITAMIN D 600-400 MG TABLET GT SCH ×2 (05:19→17:40)
[2023-01-05 07:45] VITALS: TEMP 98.4
[2023-01-05] MEDS: HYDROGEN PEROXIDE 3% 118 ML BOTTLE TP SCH ×2 (09:34→19:08)
[2023-01-05] MEDS: [UNRECOGNIZED DRUG - OTHER] GT SCH (09:58)
[2023-01-05] MEDS: [UNRECOGNIZED DRUG - OTHER] GT SCH ×2 (09:58→21:33)
[2023-01-05] MEDS: VITAMINS A AND D OINT 42 GM TUBE TP SCH (09:59)
[2023-01-05] MEDS: COD LIVER OIL/ZINC OXIDE OINT 113 GM TUBE TP SCH ×2 (09:59→21:33)
[2023-01-05 10:45] VITALS: O2SAT 99
[2023-01-05 20:00] VITALS: TEMP 98
[2023-01-05 20:15] VITALS: O2SAT 97
[2023-01-05] MEDS: MINERAL OIL/PETROLAT OPHT OINT 3.5 GM TUBE EACHEYE SCH (21:33)
[2023-01-05] MEDS: PROTEIN SUPPLEMENT (PROSTAT) 30 ML LIQUID GT SCH (21:33)
[2023-01-05] MEDS: OSMOLITE 1.2 CAL 1,000 ML LIQUID GT PRN (21:47)
[2023-01-06] MEDS: POLYVINYL ALCOHOL OPHT DROPS 15 ML BOTTLE EACHEYE SCH ×6 (00:20→20:13)
[2023-01-06] MEDS: LEVOTHYROXINE SODIUM 125 MCG TABLET PO SCH (05:31)
[2023-01-06] MEDS: CARBIDOPA/LEVODOPA 25-100MG TABLET GT SCH ×3 (06:29→22:04)
[2023-01-06] MEDS: [UNRECOGNIZED DRUG - OTHER] GT SCH (06:29)
[2023-01-06] MEDS: CALCIUM CARB/VITAMIN D 600-400 MG TABLET GT SCH ×2 (06:29→17:23)
[2023-01-06] MEDS: FAMOTIDINE 20 MG TABLET GT SCH (06:29)
[2023-01-06] MEDS: HYDROGEN PEROXIDE 3% 118 ML BOTTLE TP SCH ×2 (07:09→21:17)
[2023-01-06 07:20] VITALS: TEMP 98.6
[2023-01-06] MEDS: [UNRECOGNIZED DRUG - OTHER] GT SCH (09:00)
[2023-01-06] MEDS: COD LIVER OIL/ZINC OXIDE OINT 113 GM TUBE TP SCH ×2 (09:00→20:14)
[2023-01-06] MEDS: VITAMINS A AND D OINT 42 GM TUBE TP SCH (09:00)
[2023-01-06] MEDS: [UNRECOGNIZED DRUG - OTHER] GT SCH ×2 (09:00→20:14)
[2023-01-06 10:22] VITALS: O2SAT 99
[2023-01-06 19:55] VITALS: O2SAT 97
[2023-01-06 20:00] VITALS: TEMP 98.1
[2023-01-06] MEDS: MINERAL OIL/PETROLAT OPHT OINT 3.5 GM TUBE EACHEYE SCH (20:13)
[2023-01-06] MEDS: PROTEIN SUPPLEMENT (PROSTAT) 30 ML LIQUID GT SCH (20:14)
[2023-01-07] MEDS: POLYVINYL ALCOHOL OPHT DROPS 15 ML BOTTLE EACHEYE SCH ×7 (00:19→23:30)
[2023-01-07] MEDS: OSMOLITE 1.2 CAL 1,000 ML LIQUID GT PRN (03:56)
[2023-01-07] MEDS: CALCIUM CARB/VITAMIN D 600-400 MG TABLET GT SCH ×2 (05:06→17:42)
[2023-01-07] MEDS: [UNRECOGNIZED DRUG - OTHER] GT SCH (05:06)
[2023-01-07] MEDS: FAMOTIDINE 20 MG TABLET GT SCH (05:06)
[2023-01-07] MEDS: CARBIDOPA/LEVODOPA 25-100MG TABLET GT SCH ×3 (05:06→21:34)
[2023-01-07] MEDS: LEVOTHYROXINE SODIUM 125 MCG TABLET PO SCH (05:06)
[2023-01-07 07:20] VITALS: TEMP 98.8
[2023-01-07] MEDS: HYDROGEN PEROXIDE 3% 118 ML BOTTLE TP SCH ×2 (07:37→21:00)
[2023-01-07] MEDS: COD LIVER OIL/ZINC OXIDE OINT 113 GM TUBE TP SCH ×2 (09:22→21:34)
[2023-01-07] MEDS: [UNRECOGNIZED DRUG - OTHER] GT SCH ×2 (09:22→21:33)
[2023-01-07] MEDS: [UNRECOGNIZED DRUG - OTHER] GT SCH (09:22)
[2023-01-07] MEDS: VITAMINS A AND D OINT 42 GM TUBE TP SCH (09:23)
[2023-01-07 19:59] VITALS: TEMP 98.1
[2023-01-07] MEDS: PROTEIN SUPPLEMENT (PROSTAT) 30 ML LIQUID GT SCH (21:33)
[2023-01-07] MEDS: MINERAL OIL/PETROLAT OPHT OINT 3.5 GM TUBE EACHEYE SCH (21:33)
[2023-01-08 00:07] VITALS: O2SAT 98
[2023-01-08] MEDS: OSMOLITE 1.2 CAL 1,000 ML LIQUID GT PRN (01:12)
[2023-01-08] MEDS: POLYVINYL ALCOHOL OPHT DROPS 15 ML BOTTLE EACHEYE SCH ×6 (03:30→23:30)
[2023-01-08] MEDS: ALENDRONATE SODIUM 70 MG GT SCH (05:22)
[2023-01-08] MEDS: CARBIDOPA/LEVODOPA 25-100MG TABLET GT SCH ×3 (05:22→21:48)
[2023-01-08] MEDS: LEVOTHYROXINE SODIUM 125 MCG TABLET PO SCH (05:22)
[2023-01-08] MEDS: CALCIUM CARB/VITAMIN D 600-400 MG TABLET GT SCH ×2 (05:22→17:21)
[2023-01-08] MEDS: [UNRECOGNIZED DRUG - OTHER] GT SCH (05:22)
[2023-01-08] MEDS: FAMOTIDINE 20 MG TABLET GT SCH (05:32)
[2023-01-08 07:32] VITALS: TEMP 98.7
[2023-01-08] MEDS: HYDROGEN PEROXIDE 3% 118 ML BOTTLE TP SCH ×2 (08:41→20:56)
[2023-01-08] MEDS: [UNRECOGNIZED DRUG - OTHER] GT SCH ×2 (09:22→21:47)
[2023-01-08] MEDS: VITAMINS A AND D OINT 42 GM TUBE TP SCH (09:22)
[2023-01-08] MEDS: COD LIVER OIL/ZINC OXIDE OINT 113 GM TUBE TP SCH ×2 (09:22→21:48)
[2023-01-08] MEDS: [UNRECOGNIZED DRUG - OTHER] GT SCH (09:22)
[2023-01-08 16:25] VITALS: O2SAT 98
[2023-01-08 19:45] VITALS: O2SAT 97
[2023-01-08 20:00] VITALS: TEMP 97.8
[2023-01-08] MEDS: MINERAL OIL/PETROLAT OPHT OINT 3.5 GM TUBE EACHEYE SCH (21:47)
[2023-01-08] MEDS: PROTEIN SUPPLEMENT (PROSTAT) 30 ML LIQUID GT SCH (21:48)
[2023-01-09] MEDS: POLYVINYL ALCOHOL OPHT DROPS 15 ML BOTTLE EACHEYE SCH ×6 (03:30→23:30)
[2023-01-09] MEDS: LEVOTHYROXINE SODIUM 125 MCG TABLET PO SCH (05:24)
[2023-01-09] MEDS: CALCIUM CARB/VITAMIN D 600-400 MG TABLET GT SCH ×2 (05:24→17:26)
[2023-01-09] MEDS: CARBIDOPA/LEVODOPA 25-100MG TABLET GT SCH ×3 (05:24→21:41)
[2023-01-09] MEDS: [UNRECOGNIZED DRUG - OTHER] GT SCH (05:24)
[2023-01-09] MEDS: FAMOTIDINE 20 MG TABLET GT SCH (05:51)
[2023-01-09] MEDS: OSMOLITE 1.2 CAL 1,000 ML LIQUID GT PRN (05:52)
[2023-01-09 07:13] VITALS: O2SAT 98
[2023-01-09 07:25] VITALS: TEMP 98.6
[2023-01-09] MEDS: [UNRECOGNIZED DRUG - OTHER] GT SCH (09:05)
[2023-01-09] MEDS: [UNRECOGNIZED DRUG - OTHER] GT SCH ×2 (09:05→21:41)
[2023-01-09] MEDS: COD LIVER OIL/ZINC OXIDE OINT 113 GM TUBE TP SCH ×2 (09:06→21:41)
[2023-01-09] MEDS: VITAMINS A AND D OINT 42 GM TUBE TP SCH (09:07)
[2023-01-09] MEDS: HYDROGEN PEROXIDE 3% 118 ML BOTTLE TP SCH ×2 (09:30→19:14)
[2023-01-09 16:47] VITALS: O2SAT 98
[2023-01-09 19:57] VITALS: TEMP 97.9
[2023-01-09 20:10] VITALS: O2SAT 98
[2023-01-09] MEDS: MINERAL OIL/PETROLAT OPHT OINT 3.5 GM TUBE EACHEYE SCH (21:41)
[2023-01-09] MEDS: PROTEIN SUPPLEMENT (PROSTAT) 30 ML LIQUID GT SCH (21:41)
[2023-01-10] MEDS: POLYVINYL ALCOHOL OPHT DROPS 15 ML BOTTLE EACHEYE SCH ×6 (04:28→23:30)
[2023-01-10] MEDS: CARBIDOPA/LEVODOPA 25-100MG TABLET GT SCH ×3 (05:22→21:42)
[2023-01-10] MEDS: [UNRECOGNIZED DRUG - OTHER] GT SCH (05:22)
[2023-01-10] MEDS: LEVOTHYROXINE SODIUM 125 MCG TABLET PO SCH (05:22)
[2023-01-10] MEDS: CALCIUM CARB/VITAMIN D 600-400 MG TABLET GT SCH ×2 (05:22→17:08)
[2023-01-10] MEDS: FAMOTIDINE 20 MG TABLET GT SCH (06:05)
[2023-01-10] MEDS: OSMOLITE 1.2 CAL 1,000 ML LIQUID GT PRN (06:06)
[2023-01-10 07:27] VITALS: TEMP 98.1
[2023-01-10] MEDS: [UNRECOGNIZED DRUG - OTHER] GT SCH (08:12)
[2023-01-10] MEDS: COD LIVER OIL/ZINC OXIDE OINT 113 GM TUBE TP SCH ×2 (08:12→21:42)
[2023-01-10] MEDS: [UNRECOGNIZED DRUG - OTHER] GT SCH ×2 (08:12→21:42)
[2023-01-10] MEDS: VITAMINS A AND D OINT 42 GM TUBE TP SCH (08:12)
[2023-01-10] MEDS: HYDROGEN PEROXIDE 3% 118 ML BOTTLE TP SCH ×2 (09:30→21:33)
[2023-01-10 10:40] VITALS: O2SAT 98
[2023-01-10 19:35] VITALS: O2SAT 97
[2023-01-10 20:00] VITALS: TEMP 96.4
[2023-01-10] MEDS: PROTEIN SUPPLEMENT (PROSTAT) 30 ML LIQUID GT SCH (21:42)
[2023-01-10] MEDS: MINERAL OIL/PETROLAT OPHT OINT 3.5 GM TUBE EACHEYE SCH (21:42)
[2023-01-10] MEDS: diphenhydrAMINE 25 MG/10 ML UDC GT PRN (21:44)
[2023-01-10] MEDS: LOPERAMIDE HCL 2 MG/15 ML GT PRN (21:44)
[2023-01-11] MEDS ORDERED: NYSTATIN CREAM 30 GM TUBE TOP SCH ×2 (02:00)
[2023-01-11] MEDS ORDERED: COD LIVER OIL/ZINC OXIDE OINT 113 GM TUBE TOP SCH ×2 (02:00)
[2023-01-11] MEDS: POLYVINYL ALCOHOL OPHT DROPS 15 ML BOTTLE EACHEYE SCH ×6 (03:30→23:30)
[2023-01-11] MEDS: [UNRECOGNIZED DRUG - OTHER] GT SCH (05:06)
[2023-01-11] MEDS: CARBIDOPA/LEVODOPA 25-100MG TABLET GT SCH ×3 (05:06→21:04)
[2023-01-11] MEDS: CALCIUM CARB/VITAMIN D 600-400 MG TABLET GT SCH ×2 (05:06→17:15)
[2023-01-11] MEDS: FAMOTIDINE 20 MG TABLET GT SCH (05:06)
[2023-01-11] MEDS: LEVOTHYROXINE SODIUM 125 MCG TABLET PO SCH (05:06)
[2023-01-11 07:08] VITALS: O2SAT 98
[2023-01-11] MEDS: HYDROGEN PEROXIDE 3% 118 ML BOTTLE TP SCH ×2 (07:14→19:18)
[2023-01-11 08:00] VITALS: TEMP 98.2
[2023-01-11] MEDS: [UNRECOGNIZED DRUG - OTHER] GT SCH ×2 (09:25→20:45)
[2023-01-11] MEDS: [UNRECOGNIZED DRUG - OTHER] GT SCH (09:26)
[2023-01-11] MEDS: VITAMINS A AND D OINT 42 GM TUBE TP SCH (09:27)
[2023-01-11] MEDS: COD LIVER OIL/ZINC OXIDE OINT 113 GM TUBE TP SCH ×2 (09:27→20:45)
[2023-01-11 09:56] VITALS: O2SAT 98
[2023-01-11] MEDS: COD LIVER OIL/ZINC OXIDE OINT 113 GM TUBE TOP SCH ×4 (09:58→20:45)
[2023-01-11] MEDS: NYSTATIN CREAM 30 GM TUBE TOP SCH ×4 (09:59→20:45)
[2023-01-11 11:40] VITALS: O2SAT 98
[2023-01-11 20:00] VITALS: TEMP 96.4; TEMP 98
[2023-01-11] MEDS: PROTEIN SUPPLEMENT (PROSTAT) 30 ML LIQUID GT SCH (20:45)
[2023-01-11] MEDS: MINERAL OIL/PETROLAT OPHT OINT 3.5 GM TUBE EACHEYE SCH (20:45)
[2023-01-11 22:07] VITALS: O2SAT 97
[2023-01-12] MEDS: POLYVINYL ALCOHOL OPHT DROPS 15 ML BOTTLE EACHEYE SCH ×6 (04:08→23:30)
[2023-01-12] MEDS: [UNRECOGNIZED DRUG - OTHER] GT SCH (05:41)
[2023-01-12] MEDS: FAMOTIDINE 20 MG TABLET GT SCH (05:41)
[2023-01-12] MEDS: CALCIUM CARB/VITAMIN D 600-400 MG TABLET GT SCH ×2 (05:41→17:45)
[2023-01-12] MEDS: LEVOTHYROXINE SODIUM 125 MCG TABLET PO SCH (05:41)
[2023-01-12] MEDS: OSMOLITE 1.2 CAL 1,000 ML LIQUID GT PRN (05:41)
[2023-01-12] MEDS: CARBIDOPA/LEVODOPA 25-100MG TABLET GT SCH ×3 (05:41→21:09)
[2023-01-12 07:30] VITALS: TEMP 98.5
[2023-01-12] MEDS: [UNRECOGNIZED DRUG - OTHER] GT SCH (08:41)
[2023-01-12] MEDS: COD LIVER OIL/ZINC OXIDE OINT 113 GM TUBE TOP SCH ×4 (08:44→21:09)
[2023-01-12] MEDS: [UNRECOGNIZED DRUG - OTHER] GT SCH ×2 (08:44→21:08)
[2023-01-12] MEDS: VITAMINS A AND D OINT 42 GM TUBE TP SCH (08:46)
[2023-01-12] MEDS: COD LIVER OIL/ZINC OXIDE OINT 113 GM TUBE TP SCH ×2 (08:46→21:09)
[2023-01-12] MEDS: NYSTATIN CREAM 30 GM TUBE TOP SCH ×4 (08:46→21:09)
[2023-01-12] MEDS: HYDROGEN PEROXIDE 3% 118 ML BOTTLE TP SCH ×2 (09:58→19:14)
[2023-01-12] MEDS: diphenhydrAMINE 25 MG/10 ML UDC GT PRN (11:11)
[2023-01-12 14:05] VITALS: O2SAT 98
[2023-01-12 19:55] VITALS: O2SAT 97
[2023-01-12 19:58] VITALS: TEMP 99.9
[2023-01-12] MEDS: MINERAL OIL/PETROLAT OPHT OINT 3.5 GM TUBE EACHEYE SCH (21:08)
[2023-01-12] MEDS: PROTEIN SUPPLEMENT (PROSTAT) 30 ML LIQUID GT SCH (21:09)
[2023-01-13] MEDS: POLYVINYL ALCOHOL OPHT DROPS 15 ML BOTTLE EACHEYE SCH ×6 (04:00→23:30)
[2023-01-13] MEDS: CALCIUM CARB/VITAMIN D 600-400 MG TABLET GT SCH ×2 (05:19→17:49)
[2023-01-13] MEDS: LEVOTHYROXINE SODIUM 125 MCG TABLET PO SCH (05:19)
[2023-01-13] MEDS: [UNRECOGNIZED DRUG - OTHER] GT SCH (05:19)
[2023-01-13] MEDS: CARBIDOPA/LEVODOPA 25-100MG TABLET GT SCH ×3 (05:19→21:01)
[2023-01-13] MEDS: FAMOTIDINE 20 MG TABLET GT SCH (05:46)
[2023-01-13 07:30] VITALS: TEMP 97.9
[2023-01-13] MEDS: HYDROGEN PEROXIDE 3% 118 ML BOTTLE TP SCH ×2 (08:25→19:09)
[2023-01-13] MEDS: [UNRECOGNIZED DRUG - OTHER] GT SCH (08:52)
[2023-01-13] MEDS: [UNRECOGNIZED DRUG - OTHER] GT SCH ×2 (08:52→21:00)
[2023-01-13] MEDS: COD LIVER OIL/ZINC OXIDE OINT 113 GM TUBE TOP SCH ×4 (08:54→21:00)
[2023-01-13] MEDS: NYSTATIN CREAM 30 GM TUBE TOP SCH ×4 (08:54→21:00)
[2023-01-13] MEDS: VITAMINS A AND D OINT 42 GM TUBE TP SCH (08:55)
[2023-01-13] MEDS: COD LIVER OIL/ZINC OXIDE OINT 113 GM TUBE TP SCH ×2 (08:55→21:00)
[2023-01-13] MEDS: OSMOLITE 1.2 CAL 1,000 ML LIQUID GT PRN (09:15)
[2023-01-13 16:02] VITALS: O2SAT 98
[2023-01-13 20:00] VITALS: TEMP 98
[2023-01-13] MEDS: PROTEIN SUPPLEMENT (PROSTAT) 30 ML LIQUID GT SCH (21:00)
[2023-01-13] MEDS: MINERAL OIL/PETROLAT OPHT OINT 3.5 GM TUBE EACHEYE SCH (21:00)
[2023-01-13 22:49] VITALS: O2SAT 97
[2023-01-14] MEDS: POLYVINYL ALCOHOL OPHT DROPS 15 ML BOTTLE EACHEYE SCH ×6 (04:16→23:28)
[2023-01-14] MEDS: CARBIDOPA/LEVODOPA 25-100MG TABLET GT SCH ×3 (05:10→21:35)
[2023-01-14] MEDS: CALCIUM CARB/VITAMIN D 600-400 MG TABLET GT SCH ×2 (05:10→17:04)
[2023-01-14] MEDS: LEVOTHYROXINE SODIUM 125 MCG TABLET PO SCH (05:10)
[2023-01-14] MEDS: [UNRECOGNIZED DRUG - OTHER] GT SCH (05:10)
[2023-01-14] MEDS: FAMOTIDINE 20 MG TABLET GT SCH (06:31)
[2023-01-14 07:27] VITALS: TEMP 98.2
[2023-01-14] MEDS: HYDROGEN PEROXIDE 3% 118 ML BOTTLE TP SCH ×2 (08:49→19:14)
[2023-01-14] MEDS: [UNRECOGNIZED DRUG - OTHER] GT SCH (09:52)
[2023-01-14] MEDS: COD LIVER OIL/ZINC OXIDE OINT 113 GM TUBE TOP SCH ×4 (09:52→21:35)
[2023-01-14] MEDS: [UNRECOGNIZED DRUG - OTHER] GT SCH ×2 (09:52→21:35)
[2023-01-14] MEDS: VITAMINS A AND D OINT 42 GM TUBE TP SCH (09:53)
[2023-01-14] MEDS: COD LIVER OIL/ZINC OXIDE OINT 113 GM TUBE TP SCH ×2 (09:53→21:35)
[2023-01-14] MEDS: NYSTATIN CREAM 30 GM TUBE TOP SCH ×4 (09:53→21:35)
[2023-01-14 10:45] VITALS: O2SAT 98
[2023-01-14 20:15] VITALS: TEMP 97.6
[2023-01-14 20:50] VITALS: O2SAT 98
[2023-01-14] MEDS: PROTEIN SUPPLEMENT (PROSTAT) 30 ML LIQUID GT SCH (21:35)
[2023-01-14] MEDS: MINERAL OIL/PETROLAT OPHT OINT 3.5 GM TUBE EACHEYE SCH (21:35)
[2023-01-15] MEDS: POLYVINYL ALCOHOL OPHT DROPS 15 ML BOTTLE EACHEYE SCH ×6 (03:30→23:30)
[2023-01-15] MEDS: OSMOLITE 1.2 CAL 1,000 ML LIQUID GT PRN (04:00)
[2023-01-15] MEDS: [UNRECOGNIZED DRUG - OTHER] GT SCH (05:45)
[2023-01-15] MEDS: LEVOTHYROXINE SODIUM 125 MCG TABLET PO SCH (05:45)
[2023-01-15] MEDS: ALENDRONATE SODIUM 70 MG GT SCH (05:45)
[2023-01-15] MEDS: CARBIDOPA/LEVODOPA 25-100MG TABLET GT SCH ×3 (05:45→21:40)
[2023-01-15] MEDS: FAMOTIDINE 20 MG TABLET GT SCH (05:45)
[2023-01-15] MEDS: CALCIUM CARB/VITAMIN D 600-400 MG TABLET GT SCH ×2 (05:45→17:17)
[2023-01-15] MEDS: HYDROGEN PEROXIDE 3% 118 ML BOTTLE TP SCH ×2 (07:46→19:20)
[2023-01-15 08:00] VITALS: TEMP 98
[2023-01-15 09:00] VITALS: O2SAT 98
[2023-01-15] MEDS: [UNRECOGNIZED DRUG - OTHER] GT SCH ×2 (09:19→21:39)
[2023-01-15] MEDS: COD LIVER OIL/ZINC OXIDE OINT 113 GM TUBE TOP SCH ×4 (09:20→21:40)
[2023-01-15] MEDS: COD LIVER OIL/ZINC OXIDE OINT 113 GM TUBE TP SCH ×2 (09:20→21:40)
[2023-01-15] MEDS: VITAMINS A AND D OINT 42 GM TUBE TP SCH (09:20)
[2023-01-15] MEDS: [UNRECOGNIZED DRUG - OTHER] GT SCH (09:20)
[2023-01-15] MEDS: NYSTATIN CREAM 30 GM TUBE TOP SCH ×4 (09:20→21:40)
[2023-01-15 20:00] VITALS: TEMP 98.2
[2023-01-15 20:48] VITALS: O2SAT 98
[2023-01-15] MEDS: MINERAL OIL/PETROLAT OPHT OINT 3.5 GM TUBE EACHEYE SCH (21:39)
[2023-01-15] MEDS: PROTEIN SUPPLEMENT (PROSTAT) 30 ML LIQUID GT SCH (21:40)
[2023-01-16] MEDS: POLYVINYL ALCOHOL OPHT DROPS 15 ML BOTTLE EACHEYE SCH ×6 (02:47→23:30)
[2023-01-16] MEDS: FAMOTIDINE 20 MG TABLET GT SCH (05:36)
[2023-01-16] MEDS: [UNRECOGNIZED DRUG - OTHER] GT SCH (05:36)
[2023-01-16] MEDS: LEVOTHYROXINE SODIUM 125 MCG TABLET PO SCH (05:36)
[2023-01-16] MEDS: CARBIDOPA/LEVODOPA 25-100MG TABLET GT SCH ×3 (05:36→21:39)
[2023-01-16] MEDS: CALCIUM CARB/VITAMIN D 600-400 MG TABLET GT SCH ×2 (05:36→18:17)
[2023-01-16 08:00] VITALS: TEMP 98
[2023-01-16 09:00] VITALS: O2SAT 98
[2023-01-16] MEDS: COD LIVER OIL/ZINC OXIDE OINT 113 GM TUBE TP SCH ×2 (09:00→21:39)
[2023-01-16] MEDS: VITAMINS A AND D OINT 42 GM TUBE TP SCH (09:00)
[2023-01-16] MEDS: HYDROGEN PEROXIDE 3% 118 ML BOTTLE TP SCH ×2 (09:00→21:02)
[2023-01-16] MEDS: COD LIVER OIL/ZINC OXIDE OINT 113 GM TUBE TOP SCH ×4 (09:00→21:38)
[2023-01-16] MEDS: NYSTATIN CREAM 30 GM TUBE TOP SCH ×4 (09:00→21:38)
[2023-01-16] MEDS: [UNRECOGNIZED DRUG - OTHER] GT SCH ×2 (09:13→21:38)
[2023-01-16] MEDS: [UNRECOGNIZED DRUG - OTHER] GT SCH (09:14)
[2023-01-16 20:00] VITALS: TEMP 97.4
[2023-01-16 20:15] VITALS: O2SAT 99
[2023-01-16] MEDS: MINERAL OIL/PETROLAT OPHT OINT 3.5 GM TUBE EACHEYE SCH (21:38)
[2023-01-16] MEDS: PROTEIN SUPPLEMENT (PROSTAT) 30 ML LIQUID GT SCH (21:38)
[2023-01-17] MEDS: POLYVINYL ALCOHOL OPHT DROPS 15 ML BOTTLE EACHEYE SCH ×6 (03:30→23:30)
[2023-01-17] MEDS: OSMOLITE 1.2 CAL 1,000 ML LIQUID GT PRN (04:21)
[2023-01-17] MEDS: CALCIUM CARB/VITAMIN D 600-400 MG TABLET GT SCH ×2 (05:47→17:09)
[2023-01-17] MEDS: [UNRECOGNIZED DRUG - OTHER] GT SCH (05:47)
[2023-01-17] MEDS: CARBIDOPA/LEVODOPA 25-100MG TABLET GT SCH ×3 (05:47→22:24)
[2023-01-17] MEDS: FAMOTIDINE 20 MG TABLET GT SCH (05:47)
[2023-01-17] MEDS: LEVOTHYROXINE SODIUM 125 MCG TABLET PO SCH (05:47)
[2023-01-17 08:00] VITALS: TEMP 98
[2023-01-17] MEDS: HYDROGEN PEROXIDE 3% 118 ML BOTTLE TP SCH ×2 (08:04→19:11)
[2023-01-17] MEDS: NYSTATIN CREAM 30 GM TUBE TOP SCH ×4 (09:58→20:47)
[2023-01-17] MEDS: COD LIVER OIL/ZINC OXIDE OINT 113 GM TUBE TOP SCH ×4 (09:58→20:47)
[2023-01-17] MEDS: VITAMINS A AND D OINT 42 GM TUBE TP SCH (09:58)
[2023-01-17] MEDS: COD LIVER OIL/ZINC OXIDE OINT 113 GM TUBE TP SCH ×2 (09:58→20:47)
[2023-01-17] MEDS: [UNRECOGNIZED DRUG - OTHER] GT SCH (09:58)
[2023-01-17] MEDS: [UNRECOGNIZED DRUG - OTHER] GT SCH ×2 (09:59→20:46)
[2023-01-17 10:00] VITALS: O2SAT 98
[2023-01-17 20:00] VITALS: TEMP 97.4
[2023-01-17 20:30] VITALS: O2SAT 98
[2023-01-17] MEDS: MINERAL OIL/PETROLAT OPHT OINT 3.5 GM TUBE EACHEYE SCH (20:46)
[2023-01-17] MEDS: PROTEIN SUPPLEMENT (PROSTAT) 30 ML LIQUID GT SCH (20:46)
[2023-01-18] MEDS: OSMOLITE 1.2 CAL 1,000 ML LIQUID GT PRN (02:55)
[2023-01-18] MEDS: POLYVINYL ALCOHOL OPHT DROPS 15 ML BOTTLE EACHEYE SCH ×6 (03:30→23:30)
[2023-01-18] MEDS: [UNRECOGNIZED DRUG - OTHER] GT SCH (05:30)
[2023-01-18] MEDS: FAMOTIDINE 20 MG TABLET GT SCH (05:30)
[2023-01-18] MEDS: CALCIUM CARB/VITAMIN D 600-400 MG TABLET GT SCH ×2 (05:30→18:14)
[2023-01-18] MEDS: CARBIDOPA/LEVODOPA 25-100MG TABLET GT SCH ×3 (05:30→22:56)
[2023-01-18] MEDS: LEVOTHYROXINE SODIUM 125 MCG TABLET PO SCH (05:30)
[2023-01-18 08:00] VITALS: TEMP 97.6
[2023-01-18 08:10] VITALS: O2SAT 98
[2023-01-18] MEDS: [UNRECOGNIZED DRUG - OTHER] GT SCH ×2 (08:24→20:19)
[2023-01-18] MEDS: COD LIVER OIL/ZINC OXIDE OINT 113 GM TUBE TOP SCH ×4 (08:26→20:19)
[2023-01-18] MEDS: NYSTATIN CREAM 30 GM TUBE TOP SCH ×4 (08:26→20:19)
[2023-01-18] MEDS: [UNRECOGNIZED DRUG - OTHER] GT SCH (08:26)
[2023-01-18] MEDS: COD LIVER OIL/ZINC OXIDE OINT 113 GM TUBE TP SCH ×2 (08:27→20:19)
[2023-01-18] MEDS: VITAMINS A AND D OINT 42 GM TUBE TP SCH (08:27)
[2023-01-18] MEDS: HYDROGEN PEROXIDE 3% 118 ML BOTTLE TP SCH ×2 (09:00→19:03)
[2023-01-18 15:29] VITALS: O2SAT 98
[2023-01-18] MEDS: diphenhydrAMINE 25 MG/10 ML UDC GT PRN (16:38)
[2023-01-18 20:00] VITALS: TEMP 97
[2023-01-18 20:05] VITALS: O2SAT 98
[2023-01-18] MEDS: PROTEIN SUPPLEMENT (PROSTAT) 30 ML LIQUID GT SCH (20:19)
[2023-01-18] MEDS: MINERAL OIL/PETROLAT OPHT OINT 3.5 GM TUBE EACHEYE SCH (20:19)
[2023-01-19] MEDS: POLYVINYL ALCOHOL OPHT DROPS 15 ML BOTTLE EACHEYE SCH ×6 (04:29→23:30)
[2023-01-19] MEDS: OSMOLITE 1.2 CAL 1,000 ML LIQUID GT PRN (04:33)
[2023-01-19] MEDS: [UNRECOGNIZED DRUG - OTHER] GT SCH (06:23)
[2023-01-19] MEDS: LEVOTHYROXINE SODIUM 125 MCG TABLET PO SCH (06:23)
[2023-01-19] MEDS: CALCIUM CARB/VITAMIN D 600-400 MG TABLET GT SCH ×2 (06:23→17:29)
[2023-01-19] MEDS: CARBIDOPA/LEVODOPA 25-100MG TABLET GT SCH ×3 (06:23→22:25)
[2023-01-19] MEDS: FAMOTIDINE 20 MG TABLET GT SCH (06:56)
[2023-01-19 07:55] VITALS: TEMP 98.4
[2023-01-19] MEDS: HYDROGEN PEROXIDE 3% 118 ML BOTTLE TP SCH ×2 (07:59→19:07)
[2023-01-19] MEDS: [UNRECOGNIZED DRUG - OTHER] GT SCH (09:13)
[2023-01-19] MEDS: [UNRECOGNIZED DRUG - OTHER] GT SCH ×2 (09:13→20:08)
[2023-01-19] MEDS: COD LIVER OIL/ZINC OXIDE OINT 113 GM TUBE TOP SCH ×4 (09:13→20:11)
[2023-01-19] MEDS: VITAMINS A AND D OINT 42 GM TUBE TP SCH (09:14)
[2023-01-19] MEDS: COD LIVER OIL/ZINC OXIDE OINT 113 GM TUBE TP SCH ×2 (09:14→20:11)
[2023-01-19] MEDS: NYSTATIN CREAM 30 GM TUBE TOP SCH ×4 (09:14→20:11)
[2023-01-19 10:40] VITALS: O2SAT 97
[2023-01-19 19:42] VITALS: TEMP 98.5
[2023-01-19] MEDS: MINERAL OIL/PETROLAT OPHT OINT 3.5 GM TUBE EACHEYE SCH (20:08)
[2023-01-19] MEDS: PROTEIN SUPPLEMENT (PROSTAT) 30 ML LIQUID GT SCH (20:10)
[2023-01-19 21:09] VITALS: O2SAT 98
[2023-01-20] MEDS: OSMOLITE 1.2 CAL 1,000 ML LIQUID GT PRN (03:23)
[2023-01-20] MEDS: POLYVINYL ALCOHOL OPHT DROPS 15 ML BOTTLE EACHEYE SCH ×6 (03:24→23:30)
[2023-01-20] MEDS: [UNRECOGNIZED DRUG - OTHER] GT SCH (05:03)
[2023-01-20] MEDS: CALCIUM CARB/VITAMIN D 600-400 MG TABLET GT SCH ×2 (05:03→17:59)
[2023-01-20] MEDS: CARBIDOPA/LEVODOPA 25-100MG TABLET GT SCH ×3 (05:03→21:31)
[2023-01-20] MEDS: LEVOTHYROXINE SODIUM 125 MCG TABLET PO SCH (05:03)
[2023-01-20] MEDS: FAMOTIDINE 20 MG TABLET GT SCH (05:54)
[2023-01-20] MEDS: HYDROGEN PEROXIDE 3% 118 ML BOTTLE TP SCH ×2 (07:11→19:14)
[2023-01-20 07:26] VITALS: TEMP 98.7
[2023-01-20] MEDS: [UNRECOGNIZED DRUG - OTHER] GT SCH ×2 (09:26→20:58)
[2023-01-20] MEDS: [UNRECOGNIZED DRUG - OTHER] GT SCH (09:26)
[2023-01-20] MEDS: COD LIVER OIL/ZINC OXIDE OINT 113 GM TUBE TOP SCH ×4 (09:26→20:58)
[2023-01-20] MEDS: NYSTATIN CREAM 30 GM TUBE TOP SCH ×4 (09:26→20:58)
[2023-01-20] MEDS: VITAMINS A AND D OINT 42 GM TUBE TP SCH (09:27)
[2023-01-20] MEDS: COD LIVER OIL/ZINC OXIDE OINT 113 GM TUBE TP SCH ×2 (09:27→20:58)
[2023-01-20 12:11] VITALS: O2SAT 97
[2023-01-20] MEDS: diphenhydrAMINE 25 MG/10 ML UDC GT PRN (16:30)
[2023-01-20 20:07] VITALS: TEMP 98.5
[2023-01-20] MEDS: PROTEIN SUPPLEMENT (PROSTAT) 30 ML LIQUID GT SCH (20:58)
[2023-01-20] MEDS: MINERAL OIL/PETROLAT OPHT OINT 3.5 GM TUBE EACHEYE SCH (20:58)
[2023-01-20 21:27] VITALS: O2SAT 98
[2023-01-21] MEDS: OSMOLITE 1.2 CAL 1,000 ML LIQUID GT PRN (03:27)
[2023-01-21] MEDS: POLYVINYL ALCOHOL OPHT DROPS 15 ML BOTTLE EACHEYE SCH ×6 (03:37→23:30)
[2023-01-21] MEDS: FAMOTIDINE 20 MG TABLET GT SCH (05:50)
[2023-01-21] MEDS: [UNRECOGNIZED DRUG - OTHER] GT SCH (05:50)
[2023-01-21] MEDS: CARBIDOPA/LEVODOPA 25-100MG TABLET GT SCH ×3 (05:50→21:35)
[2023-01-21] MEDS: CALCIUM CARB/VITAMIN D 600-400 MG TABLET GT SCH ×2 (05:50→17:48)
[2023-01-21] MEDS: LEVOTHYROXINE SODIUM 125 MCG TABLET PO SCH (05:50)
[2023-01-21 07:29] VITALS: TEMP 98.7
[2023-01-21 08:15] VITALS: O2SAT 98
[2023-01-21] MEDS: HYDROGEN PEROXIDE 3% 118 ML BOTTLE TP SCH ×2 (09:00→19:14)
[2023-01-21] MEDS: COD LIVER OIL/ZINC OXIDE OINT 113 GM TUBE TP SCH ×2 (09:24→21:35)
[2023-01-21] MEDS: [UNRECOGNIZED DRUG - OTHER] GT SCH (09:24)
[2023-01-21] MEDS: [UNRECOGNIZED DRUG - OTHER] GT SCH ×2 (09:24→21:34)
[2023-01-21] MEDS: COD LIVER OIL/ZINC OXIDE OINT 113 GM TUBE TOP SCH ×4 (09:24→21:35)
[2023-01-21] MEDS: NYSTATIN CREAM 30 GM TUBE TOP SCH ×4 (09:24→21:35)
[2023-01-21] MEDS: VITAMINS A AND D OINT 42 GM TUBE TP SCH (09:25)
[2023-01-21 18:11] VITALS: O2SAT 98
[2023-01-21 19:45] VITALS: O2SAT 98
[2023-01-21 20:25] VITALS: TEMP 98
[2023-01-21] MEDS: MINERAL OIL/PETROLAT OPHT OINT 3.5 GM TUBE EACHEYE SCH (21:34)
[2023-01-21] MEDS: PROTEIN SUPPLEMENT (PROSTAT) 30 ML LIQUID GT SCH (21:34)
[2023-01-22] MEDS: OSMOLITE 1.2 CAL 1,000 ML LIQUID GT PRN (01:00)
[2023-01-22] MEDS: POLYVINYL ALCOHOL OPHT DROPS 15 ML BOTTLE EACHEYE SCH ×5 (04:10→19:30)
[2023-01-22] MEDS: [UNRECOGNIZED DRUG - OTHER] GT SCH (06:03)
[2023-01-22] MEDS: CARBIDOPA/LEVODOPA 25-100MG TABLET GT SCH ×3 (06:03→21:22)
[2023-01-22] MEDS: LEVOTHYROXINE SODIUM 125 MCG TABLET PO SCH (06:03)
[2023-01-22] MEDS: ALENDRONATE SODIUM 70 MG GT SCH (06:03)
[2023-01-22] MEDS: CALCIUM CARB/VITAMIN D 600-400 MG TABLET GT SCH ×2 (06:03→17:06)
[2023-01-22 07:25] VITALS: TEMP 98.5
[2023-01-22] MEDS: [UNRECOGNIZED DRUG - OTHER] GT SCH (08:28)
[2023-01-22] MEDS: [UNRECOGNIZED DRUG - OTHER] GT SCH ×2 (08:28→21:20)
[2023-01-22] MEDS: NYSTATIN CREAM 30 GM TUBE TOP SCH ×4 (08:29→21:21)
[2023-01-22] MEDS: COD LIVER OIL/ZINC OXIDE OINT 113 GM TUBE TOP SCH ×4 (08:29→21:21)
[2023-01-22] MEDS: COD LIVER OIL/ZINC OXIDE OINT 113 GM TUBE TP SCH ×2 (08:29→21:21)
[2023-01-22] MEDS: VITAMINS A AND D OINT 42 GM TUBE TP SCH (08:29)
[2023-01-22] MEDS: HYDROGEN PEROXIDE 3% 118 ML BOTTLE TP SCH ×2 (09:00→19:16)
[2023-01-22 15:00] VITALS: O2SAT 98
[2023-01-22 20:00] VITALS: TEMP 96.7
[2023-01-22] MEDS: MINERAL OIL/PETROLAT OPHT OINT 3.5 GM TUBE EACHEYE SCH (21:19)
[2023-01-22] MEDS: PROTEIN SUPPLEMENT (PROSTAT) 30 ML LIQUID GT SCH (21:20)
[2023-01-23] MEDS: POLYVINYL ALCOHOL OPHT DROPS 15 ML BOTTLE EACHEYE SCH ×6 (00:16→19:30)
[2023-01-23] MEDS: OSMOLITE 1.2 CAL 1,000 ML LIQUID GT PRN (01:55)
[2023-01-23] MEDS: LEVOTHYROXINE SODIUM 125 MCG TABLET PO SCH (05:23)
[2023-01-23] MEDS: [UNRECOGNIZED DRUG - OTHER] GT SCH (05:23)
[2023-01-23] MEDS: CALCIUM CARB/VITAMIN D 600-400 MG TABLET GT SCH ×2 (05:23→18:22)
[2023-01-23] MEDS: FAMOTIDINE 20 MG TABLET GT SCH (05:23)
[2023-01-23] MEDS: CARBIDOPA/LEVODOPA 25-100MG TABLET GT SCH ×3 (05:23→22:10)
[2023-01-23 07:27] VITALS: O2SAT 98
[2023-01-23 07:28] VITALS: TEMP 98.7
[2023-01-23] MEDS: [UNRECOGNIZED DRUG - OTHER] GT SCH (08:30)
[2023-01-23] MEDS: [UNRECOGNIZED DRUG - OTHER] GT SCH ×2 (08:30→20:49)
[2023-01-23] MEDS: COD LIVER OIL/ZINC OXIDE OINT 113 GM TUBE TOP SCH ×4 (08:30→20:50)
[2023-01-23] MEDS: COD LIVER OIL/ZINC OXIDE OINT 113 GM TUBE TP SCH ×2 (08:30→20:50)
[2023-01-23] MEDS: NYSTATIN CREAM 30 GM TUBE TOP SCH ×4 (08:30→20:50)
[2023-01-23] MEDS: VITAMINS A AND D OINT 42 GM TUBE TP SCH (08:31)
[2023-01-23] MEDS: HYDROGEN PEROXIDE 3% 118 ML BOTTLE TP SCH ×2 (09:00→19:07)
[2023-01-23 13:11] VITALS: O2SAT 98
[2023-01-23 19:42] VITALS: TEMP 97.2
[2023-01-23 20:25] VITALS: O2SAT 98
[2023-01-23] MEDS: PROTEIN SUPPLEMENT (PROSTAT) 30 ML LIQUID GT SCH (20:49)
[2023-01-23] MEDS: MINERAL OIL/PETROLAT OPHT OINT 3.5 GM TUBE EACHEYE SCH (20:49)
[2023-01-24] MEDS: POLYVINYL ALCOHOL OPHT DROPS 15 ML BOTTLE EACHEYE SCH ×7 (00:22→23:31)
[2023-01-24] MEDS: OSMOLITE 1.2 CAL 1,000 ML LIQUID GT PRN (02:39)
[2023-01-24] MEDS: CALCIUM CARB/VITAMIN D 600-400 MG TABLET GT SCH ×2 (05:31→17:39)
[2023-01-24] MEDS: CARBIDOPA/LEVODOPA 25-100MG TABLET GT SCH ×3 (05:31→21:09)
[2023-01-24] MEDS: [UNRECOGNIZED DRUG - OTHER] GT SCH (05:31)
[2023-01-24] MEDS: FAMOTIDINE 20 MG TABLET GT SCH (05:32)
[2023-01-24] MEDS: LEVOTHYROXINE SODIUM 125 MCG TABLET PO SCH (05:32)
[2023-01-24 07:29] VITALS: TEMP 98.7
[2023-01-24] MEDS: [UNRECOGNIZED DRUG - OTHER] GT SCH ×2 (08:17→20:52)
[2023-01-24] MEDS: VITAMINS A AND D OINT 42 GM TUBE TP SCH (08:18)
[2023-01-24] MEDS: COD LIVER OIL/ZINC OXIDE OINT 113 GM TUBE TOP SCH ×2 (08:18)
[2023-01-24] MEDS: [UNRECOGNIZED DRUG - OTHER] GT SCH (08:18)
[2023-01-24] MEDS: COD LIVER OIL/ZINC OXIDE OINT 113 GM TUBE TP SCH ×2 (08:18→20:52)
[2023-01-24] MEDS: NYSTATIN CREAM 30 GM TUBE TOP SCH ×2 (08:18)
[2023-01-24] MEDS: HYDROGEN PEROXIDE 3% 118 ML BOTTLE TP SCH ×2 (08:41→19:22)
[2023-01-24 10:50] VITALS: O2SAT 98
[2023-01-24 19:54] VITALS: TEMP 96.5
[2023-01-24] MEDS: PROTEIN SUPPLEMENT (PROSTAT) 30 ML LIQUID GT SCH (20:52)
[2023-01-24] MEDS: MINERAL OIL/PETROLAT OPHT OINT 3.5 GM TUBE EACHEYE SCH (20:52)
[2023-01-24 20:56] VITALS: O2SAT 98
[2023-01-25] MEDS: OSMOLITE 1.2 CAL 1,000 ML LIQUID GT PRN (03:22)
[2023-01-25] MEDS: POLYVINYL ALCOHOL OPHT DROPS 15 ML BOTTLE EACHEYE SCH ×5 (03:30→19:30)
[2023-01-25] MEDS: CARBIDOPA/LEVODOPA 25-100MG TABLET GT SCH ×3 (05:27→21:25)
[2023-01-25] MEDS: LEVOTHYROXINE SODIUM 125 MCG TABLET PO SCH (05:27)
[2023-01-25] MEDS: [UNRECOGNIZED DRUG - OTHER] GT SCH (05:27)
[2023-01-25] MEDS: CALCIUM CARB/VITAMIN D 600-400 MG TABLET GT SCH ×2 (05:27→17:54)
[2023-01-25] MEDS: FAMOTIDINE 20 MG TABLET GT SCH (05:42)
[2023-01-25 07:30] VITALS: TEMP 97.6
[2023-01-25 08:40] VITALS: O2SAT 98
[2023-01-25] MEDS: [UNRECOGNIZED DRUG - OTHER] GT SCH ×2 (08:46→20:39)
[2023-01-25] MEDS: [UNRECOGNIZED DRUG - OTHER] GT SCH (08:46)
[2023-01-25] MEDS: VITAMINS A AND D OINT 42 GM TUBE TP SCH (08:47)
[2023-01-25] MEDS: COD LIVER OIL/ZINC OXIDE OINT 113 GM TUBE TP SCH ×2 (08:47→20:39)
[2023-01-25] MEDS: HYDROGEN PEROXIDE 3% 118 ML BOTTLE TP SCH ×2 (09:33→21:00)
[2023-01-25 20:00] VITALS: TEMP 98.2
[2023-01-25] MEDS: MINERAL OIL/PETROLAT OPHT OINT 3.5 GM TUBE EACHEYE SCH (20:39)
[2023-01-25] MEDS: PROTEIN SUPPLEMENT (PROSTAT) 30 ML LIQUID GT SCH (20:39)
[2023-01-25] MEDS: ACETAMINOPHEN 650 MG/20 ML UDC- SA PATIENTS-PAIN ONLY GT PRN (20:39)
[2023-01-26 00:22] VITALS: O2SAT 99
[2023-01-26] MEDS: POLYVINYL ALCOHOL OPHT DROPS 15 ML BOTTLE EACHEYE SCH ×7 (00:28→23:30)
[2023-01-26] MEDS: OSMOLITE 1.2 CAL 1,000 ML LIQUID GT PRN (04:16)
[2023-01-26] MEDS: diphenhydrAMINE 25 MG/10 ML UDC GT PRN ×2 (04:23→13:55)
[2023-01-26] MEDS: [UNRECOGNIZED DRUG - OTHER] GT SCH (05:01)
[2023-01-26] MEDS: CARBIDOPA/LEVODOPA 25-100MG TABLET GT SCH ×3 (05:01→21:03)
[2023-01-26] MEDS: LEVOTHYROXINE SODIUM 125 MCG TABLET PO SCH (05:01)
[2023-01-26] MEDS: CALCIUM CARB/VITAMIN D 600-400 MG TABLET GT SCH ×2 (05:01→17:29)
[2023-01-26] MEDS: FAMOTIDINE 20 MG TABLET GT SCH (05:30)
[2023-01-26 07:30] VITALS: TEMP 97.5
[2023-01-26] MEDS: [UNRECOGNIZED DRUG - OTHER] GT SCH ×2 (08:40→21:02)
[2023-01-26] MEDS: COD LIVER OIL/ZINC OXIDE OINT 113 GM TUBE TP SCH ×2 (08:40→20:50)
[2023-01-26] MEDS: [UNRECOGNIZED DRUG - OTHER] GT SCH (08:40)
[2023-01-26] MEDS: VITAMINS A AND D OINT 42 GM TUBE TP SCH (08:41)
[2023-01-26] MEDS: HYDROGEN PEROXIDE 3% 118 ML BOTTLE TP SCH ×2 (09:00→19:23)
[2023-01-26 12:35] VITALS: O2SAT 98
[2023-01-26 19:58] VITALS: TEMP 98.1
[2023-01-26] MEDS: PROTEIN SUPPLEMENT (PROSTAT) 30 ML LIQUID GT SCH (20:50)
[2023-01-26] MEDS: MINERAL OIL/PETROLAT OPHT OINT 3.5 GM TUBE EACHEYE SCH (20:52)
[2023-01-26 21:34] VITALS: O2SAT 99
[2023-01-27] MEDS: OSMOLITE 1.2 CAL 1,000 ML LIQUID GT PRN (01:04)
[2023-01-27] MEDS: POLYVINYL ALCOHOL OPHT DROPS 15 ML BOTTLE EACHEYE SCH ×6 (04:19→23:30)
[2023-01-27] MEDS: LEVOTHYROXINE SODIUM 125 MCG TABLET PO SCH (05:10)
[2023-01-27] MEDS: FAMOTIDINE 20 MG TABLET GT SCH (06:57)
[2023-01-27] MEDS: CALCIUM CARB/VITAMIN D 600-400 MG TABLET GT SCH ×2 (06:57→17:53)
[2023-01-27] MEDS: [UNRECOGNIZED DRUG - OTHER] GT SCH (06:57)
[2023-01-27] MEDS: CARBIDOPA/LEVODOPA 25-100MG TABLET GT SCH ×3 (06:58→22:18)
[2023-01-27 07:26] VITALS: TEMP 97.9
[2023-01-27] MEDS: HYDROGEN PEROXIDE 3% 118 ML BOTTLE TP SCH ×2 (09:32→21:07)
[2023-01-27] MEDS: VITAMINS A AND D OINT 42 GM TUBE TP SCH (09:48)
[2023-01-27] MEDS: COD LIVER OIL/ZINC OXIDE OINT 113 GM TUBE TP SCH ×2 (09:48→21:00)
[2023-01-27] MEDS: [UNRECOGNIZED DRUG - OTHER] GT SCH (09:48)
[2023-01-27] MEDS: [UNRECOGNIZED DRUG - OTHER] GT SCH ×2 (09:48→21:00)
[2023-01-27] MEDS: diphenhydrAMINE 25 MG/10 ML UDC GT PRN (09:50)
[2023-01-27 12:28] VITALS: O2SAT 98
[2023-01-27 19:45] VITALS: TEMP 98.2
[2023-01-27] MEDS: PROTEIN SUPPLEMENT (PROSTAT) 30 ML LIQUID GT SCH (21:00)
[2023-01-27] MEDS: MINERAL OIL/PETROLAT OPHT OINT 3.5 GM TUBE EACHEYE SCH (21:00)
[2023-01-28 00:20] VITALS: O2SAT 98
[2023-01-28] MEDS: POLYVINYL ALCOHOL OPHT DROPS 15 ML BOTTLE EACHEYE SCH ×6 (03:30→23:57)
[2023-01-28] MEDS: [UNRECOGNIZED DRUG - OTHER] GT SCH (05:03)
[2023-01-28] MEDS: CALCIUM CARB/VITAMIN D 600-400 MG TABLET GT SCH ×2 (05:03→17:41)
[2023-01-28] MEDS: LEVOTHYROXINE SODIUM 125 MCG TABLET PO SCH (05:03)
[2023-01-28] MEDS: CARBIDOPA/LEVODOPA 25-100MG TABLET GT SCH ×3 (05:03→21:13)
[2023-01-28] MEDS: OSMOLITE 1.2 CAL 1,000 ML LIQUID GT PRN (05:03)
[2023-01-28] MEDS: FAMOTIDINE 20 MG TABLET GT SCH (05:34)
[2023-01-28 07:25] VITALS: TEMP 98.4
[2023-01-28] MEDS: [UNRECOGNIZED DRUG - OTHER] GT SCH (08:14)
[2023-01-28] MEDS: HYDROGEN PEROXIDE 3% 118 ML BOTTLE TP SCH ×2 (09:35→19:04)
[2023-01-28] MEDS: VITAMINS A AND D OINT 42 GM TUBE TP SCH (09:51)
[2023-01-28] MEDS: [UNRECOGNIZED DRUG - OTHER] GT SCH ×2 (09:51→21:12)
[2023-01-28] MEDS: COD LIVER OIL/ZINC OXIDE OINT 113 GM TUBE TP SCH ×2 (09:51→21:12)
[2023-01-28 10:40] VITALS: O2SAT 99
[2023-01-28] MEDS: diphenhydrAMINE 25 MG/10 ML UDC GT PRN (18:10)
[2023-01-28 19:44] VITALS: TEMP 96.3
[2023-01-28 20:45] VITALS: O2SAT 99
[2023-01-28] MEDS: MINERAL OIL/PETROLAT OPHT OINT 3.5 GM TUBE EACHEYE SCH (21:10)
[2023-01-28] MEDS: PROTEIN SUPPLEMENT (PROSTAT) 30 ML LIQUID GT SCH (21:12)
[2023-01-29] MEDS: POLYVINYL ALCOHOL OPHT DROPS 15 ML BOTTLE EACHEYE SCH ×6 (03:30→23:30)
[2023-01-29] MEDS: ALENDRONATE SODIUM 70 MG GT SCH (05:11)
[2023-01-29] MEDS: CARBIDOPA/LEVODOPA 25-100MG TABLET GT SCH ×3 (05:11→21:56)
[2023-01-29] MEDS: CALCIUM CARB/VITAMIN D 600-400 MG TABLET GT SCH ×2 (05:11→18:13)
[2023-01-29] MEDS: OSMOLITE 1.2 CAL 1,000 ML LIQUID GT PRN (05:11)
[2023-01-29] MEDS: [UNRECOGNIZED DRUG - OTHER] GT SCH (05:11)
[2023-01-29] MEDS: LEVOTHYROXINE SODIUM 125 MCG TABLET PO SCH (05:11)
[2023-01-29] MEDS: FAMOTIDINE 20 MG TABLET GT SCH (07:05)
[2023-01-29] MEDS: HYDROGEN PEROXIDE 3% 118 ML BOTTLE TP SCH ×2 (07:15→19:07)
[2023-01-29 08:00] VITALS: TEMP 97.6
[2023-01-29] MEDS: [UNRECOGNIZED DRUG - OTHER] GT SCH (08:48)
[2023-01-29] MEDS: [UNRECOGNIZED DRUG - OTHER] GT SCH ×2 (08:48→21:55)
[2023-01-29] MEDS: COD LIVER OIL/ZINC OXIDE OINT 113 GM TUBE TP SCH ×2 (08:48→21:56)
[2023-01-29] MEDS: VITAMINS A AND D OINT 42 GM TUBE TP SCH (08:48)
[2023-01-29 09:41] VITALS: O2SAT 99
[2023-01-29 19:49] VITALS: TEMP 97.2
[2023-01-29 21:04] VITALS: O2SAT 99
[2023-01-29] MEDS: PROTEIN SUPPLEMENT (PROSTAT) 30 ML LIQUID GT SCH (21:55)
[2023-01-29] MEDS: MINERAL OIL/PETROLAT OPHT OINT 3.5 GM TUBE EACHEYE SCH (21:55)
[2023-01-30] MEDS: POLYVINYL ALCOHOL OPHT DROPS 15 ML BOTTLE EACHEYE SCH ×6 (03:30→23:30)
[2023-01-30] MEDS: [UNRECOGNIZED DRUG - OTHER] GT SCH (05:06)
[2023-01-30] MEDS: CALCIUM CARB/VITAMIN D 600-400 MG TABLET GT SCH ×2 (05:06→18:29)
[2023-01-30] MEDS: LEVOTHYROXINE SODIUM 125 MCG TABLET PO SCH (05:07)
[2023-01-30] MEDS: CARBIDOPA/LEVODOPA 25-100MG TABLET GT SCH ×3 (05:07→22:00)
[2023-01-30] MEDS: OSMOLITE 1.2 CAL 1,000 ML LIQUID GT PRN (05:11)
[2023-01-30] MEDS: FAMOTIDINE 20 MG TABLET GT SCH (06:04)
[2023-01-30 08:00] VITALS: TEMP 97.3
[2023-01-30 09:00] VITALS: O2SAT 99
[2023-01-30] MEDS: HYDROGEN PEROXIDE 3% 118 ML BOTTLE TP SCH ×2 (09:00→21:00)
[2023-01-30] MEDS: [UNRECOGNIZED DRUG - OTHER] GT SCH ×2 (09:10→20:43)
[2023-01-30] MEDS: VITAMINS A AND D OINT 42 GM TUBE TP SCH (09:11)
[2023-01-30] MEDS: COD LIVER OIL/ZINC OXIDE OINT 113 GM TUBE TP SCH ×2 (09:11→20:43)
[2023-01-30] MEDS: [UNRECOGNIZED DRUG - OTHER] GT SCH (09:11)
[2023-01-30] MEDS: CLOTRIMAZOLE 1% CREAM 30 GM TUBE TP SCH ×2 (11:36→20:43)
[2023-01-30 19:43] VITALS: TEMP 97.3
[2023-01-30] MEDS: MINERAL OIL/PETROLAT OPHT OINT 3.5 GM TUBE EACHEYE SCH (20:43)
[2023-01-30] MEDS: PROTEIN SUPPLEMENT (PROSTAT) 30 ML LIQUID GT SCH (20:43)
[2023-01-31] MEDS: POLYVINYL ALCOHOL OPHT DROPS 15 ML BOTTLE EACHEYE SCH ×6 (03:30→23:30)
[2023-01-31] MEDS: OSMOLITE 1.2 CAL 1,000 ML LIQUID GT PRN (03:30)
[2023-01-31] MEDS: LEVOTHYROXINE SODIUM 125 MCG TABLET PO SCH (05:37)
[2023-01-31] MEDS: CARBIDOPA/LEVODOPA 25-100MG TABLET GT SCH ×3 (05:37→20:56)
[2023-01-31] MEDS: CALCIUM CARB/VITAMIN D 600-400 MG TABLET GT SCH ×2 (05:37→17:37)
[2023-01-31] MEDS: FAMOTIDINE 20 MG TABLET GT SCH (05:37)
[2023-01-31] MEDS: [UNRECOGNIZED DRUG - OTHER] GT SCH (05:37)
[2023-01-31] MEDS: HYDROGEN PEROXIDE 3% 118 ML BOTTLE TP SCH ×2 (07:36→19:07)
[2023-01-31 08:00] VITALS: TEMP 97.9
[2023-01-31] MEDS: [UNRECOGNIZED DRUG - OTHER] GT SCH (09:21)
[2023-01-31] MEDS: [UNRECOGNIZED DRUG - OTHER] GT SCH ×2 (09:21→20:58)
[2023-01-31] MEDS: VITAMINS A AND D OINT 42 GM TUBE TP SCH (09:22)
[2023-01-31] MEDS: COD LIVER OIL/ZINC OXIDE OINT 113 GM TUBE TP SCH ×2 (09:22→20:56)
[2023-01-31] MEDS: CLOTRIMAZOLE 1% CREAM 30 GM TUBE TP SCH ×2 (09:22→20:56)
[2023-01-31] MEDS: diphenhydrAMINE 25 MG/10 ML UDC GT PRN ×2 (09:23→16:55)
[2023-01-31 10:16] VITALS: O2SAT 99
[2023-01-31 20:00] VITALS: TEMP 98
[2023-01-31 20:50] VITALS: O2SAT 99
[2023-01-31] MEDS: MINERAL OIL/PETROLAT OPHT OINT 3.5 GM TUBE EACHEYE SCH (20:52)
[2023-01-31] MEDS: PROTEIN SUPPLEMENT (PROSTAT) 30 ML LIQUID GT SCH (20:55)
[2023-02-01] MEDS: POLYVINYL ALCOHOL OPHT DROPS 15 ML BOTTLE EACHEYE SCH ×6 (04:14→23:30)
[2023-02-01] MEDS: FAMOTIDINE 20 MG TABLET GT SCH (05:37)
[2023-02-01] MEDS: LEVOTHYROXINE SODIUM 125 MCG TABLET PO SCH (05:37)
[2023-02-01] MEDS: CARBIDOPA/LEVODOPA 25-100MG TABLET GT SCH ×3 (05:37→22:40)
[2023-02-01] MEDS: CALCIUM CARB/VITAMIN D 600-400 MG TABLET GT SCH ×2 (05:37→17:06)
[2023-02-01] MEDS: [UNRECOGNIZED DRUG - OTHER] GT SCH (05:37)
[2023-02-01 08:10] VITALS: TEMP 97.7
[2023-02-01] MEDS: HYDROGEN PEROXIDE 3% 118 ML BOTTLE TP SCH ×2 (08:28→19:09)
[2023-02-01] MEDS: [UNRECOGNIZED DRUG - OTHER] GT SCH (09:50)
[2023-02-01] MEDS: VITAMINS A AND D OINT 42 GM TUBE TP SCH (09:50)
[2023-02-01] MEDS: CLOTRIMAZOLE 1% CREAM 30 GM TUBE TP SCH ×2 (09:50→20:36)
[2023-02-01] MEDS: [UNRECOGNIZED DRUG - OTHER] GT SCH ×2 (09:50→20:36)
[2023-02-01] MEDS: COD LIVER OIL/ZINC OXIDE OINT 113 GM TUBE TP SCH ×2 (09:50→20:36)
[2023-02-01] MEDS: diphenhydrAMINE 25 MG/10 ML UDC GT PRN (10:17)
[2023-02-01] MEDS: OSMOLITE 1.2 CAL 1,000 ML LIQUID GT PRN (10:17)
[2023-02-01 10:20] VITALS: O2SAT 99
[2023-02-01 20:00] VITALS: TEMP 97.7
[2023-02-01] MEDS: MINERAL OIL/PETROLAT OPHT OINT 3.5 GM TUBE EACHEYE SCH (20:35)
[2023-02-01] MEDS: PROTEIN SUPPLEMENT (PROSTAT) 30 ML LIQUID GT SCH (20:36)
[2023-02-01 20:45] VITALS: O2SAT 99
[2023-02-02] MEDS: POLYVINYL ALCOHOL OPHT DROPS 15 ML BOTTLE EACHEYE SCH ×5 (03:33→19:30)
[2023-02-02] MEDS: CALCIUM CARB/VITAMIN D 600-400 MG TABLET GT SCH ×2 (05:50→18:20)
[2023-02-02] MEDS: LEVOTHYROXINE SODIUM 125 MCG TABLET PO SCH (05:51)
[2023-02-02] MEDS: CARBIDOPA/LEVODOPA 25-100MG TABLET GT SCH ×3 (05:51→21:32)
[2023-02-02] MEDS: [UNRECOGNIZED DRUG - OTHER] GT SCH (05:51)
[2023-02-02] MEDS: FAMOTIDINE 20 MG TABLET GT SCH (05:51)
[2023-02-02 07:52] VITALS: TEMP 97.6
[2023-02-02] MEDS: HYDROGEN PEROXIDE 3% 118 ML BOTTLE TP SCH ×2 (09:00→19:04)
[2023-02-02] MEDS: COD LIVER OIL/ZINC OXIDE OINT 113 GM TUBE TP SCH ×2 (09:53→20:44)
[2023-02-02] MEDS: VITAMINS A AND D OINT 42 GM TUBE TP SCH (09:53)
[2023-02-02] MEDS: CLOTRIMAZOLE 1% CREAM 30 GM TUBE TP SCH ×2 (09:53→20:44)
[2023-02-02] MEDS: [UNRECOGNIZED DRUG - OTHER] GT SCH (09:53)
[2023-02-02] MEDS: [UNRECOGNIZED DRUG - OTHER] GT SCH ×2 (09:53→20:44)
[2023-02-02 10:40] VITALS: O2SAT 99
[2023-02-02 19:57] VITALS: TEMP 97.4
[2023-02-02 20:02] VITALS: TEMP 97.4
[2023-02-02] MEDS: MINERAL OIL/PETROLAT OPHT OINT 3.5 GM TUBE EACHEYE SCH (20:44)
[2023-02-02] MEDS: PROTEIN SUPPLEMENT (PROSTAT) 30 ML LIQUID GT SCH (20:44)
[2023-02-02 20:45] VITALS: O2SAT 99
[2023-02-03] MEDS: POLYVINYL ALCOHOL OPHT DROPS 15 ML BOTTLE EACHEYE SCH ×6 (00:06→19:30)
[2023-02-03] MEDS: OSMOLITE 1.2 CAL 1,000 ML LIQUID GT PRN (03:59)
[2023-02-03] MEDS: LEVOTHYROXINE SODIUM 125 MCG TABLET PO SCH (05:20)
[2023-02-03] MEDS: CARBIDOPA/LEVODOPA 25-100MG TABLET GT SCH ×3 (05:20→21:00)
[2023-02-03] MEDS: CALCIUM CARB/VITAMIN D 600-400 MG TABLET GT SCH ×2 (05:20→17:46)
[2023-02-03] MEDS: [UNRECOGNIZED DRUG - OTHER] GT SCH (05:20)
[2023-02-03] MEDS: FAMOTIDINE 20 MG TABLET GT SCH (05:30)
[2023-02-03] MEDS: HYDROGEN PEROXIDE 3% 118 ML BOTTLE TP SCH ×2 (07:17→21:38)
[2023-02-03 08:00] VITALS: TEMP 97.5
[2023-02-03] MEDS: CLOTRIMAZOLE 1% CREAM 30 GM TUBE TP SCH ×2 (09:00→21:00)
[2023-02-03] MEDS: [UNRECOGNIZED DRUG - OTHER] GT SCH (09:28)
[2023-02-03] MEDS: [UNRECOGNIZED DRUG - OTHER] GT SCH ×2 (09:28→20:59)
[2023-02-03] MEDS: VITAMINS A AND D OINT 42 GM TUBE TP SCH (09:32)
[2023-02-03] MEDS: COD LIVER OIL/ZINC OXIDE OINT 113 GM TUBE TP SCH ×2 (09:32→20:59)
[2023-02-03 12:49] VITALS: O2SAT 99
[2023-02-03 20:00] VITALS: TEMP 98.5
[2023-02-03] MEDS: MINERAL OIL/PETROLAT OPHT OINT 3.5 GM TUBE EACHEYE SCH (20:59)
[2023-02-03] MEDS: PROTEIN SUPPLEMENT (PROSTAT) 30 ML LIQUID GT SCH (20:59)
[2023-02-03] MEDS: diphenhydrAMINE 25 MG/10 ML UDC GT PRN (21:00)
[2023-02-04] MEDS: POLYVINYL ALCOHOL OPHT DROPS 15 ML BOTTLE EACHEYE SCH ×7 (00:11→23:25)
[2023-02-04] MEDS: OSMOLITE 1.2 CAL 1,000 ML LIQUID GT PRN (04:11)
[2023-02-04] MEDS: LEVOTHYROXINE SODIUM 125 MCG TABLET PO SCH (05:52)
[2023-02-04] MEDS: [UNRECOGNIZED DRUG - OTHER] GT SCH (05:52)
[2023-02-04] MEDS: CARBIDOPA/LEVODOPA 25-100MG TABLET GT SCH ×3 (05:52→21:28)
[2023-02-04] MEDS: CALCIUM CARB/VITAMIN D 600-400 MG TABLET GT SCH ×2 (05:52→18:20)
[2023-02-04] MEDS: FAMOTIDINE 20 MG TABLET GT SCH (05:52)
[2023-02-04] MEDS: HYDROGEN PEROXIDE 3% 118 ML BOTTLE TP SCH ×2 (07:22→21:59)
[2023-02-04 07:32] VITALS: TEMP 98
[2023-02-04] MEDS: VITAMINS A AND D OINT 42 GM TUBE TP SCH (09:00)
[2023-02-04] MEDS: CLOTRIMAZOLE 1% CREAM 30 GM TUBE TP SCH ×2 (09:50→21:28)
[2023-02-04] MEDS: COD LIVER OIL/ZINC OXIDE OINT 113 GM TUBE TP SCH ×2 (09:50→21:28)
[2023-02-04] MEDS: [UNRECOGNIZED DRUG - OTHER] GT SCH ×2 (09:50→21:28)
[2023-02-04] MEDS: [UNRECOGNIZED DRUG - OTHER] GT SCH (09:50)
[2023-02-04 13:23] VITALS: O2SAT 99
[2023-02-04 20:00] VITALS: TEMP 98.6
[2023-02-04] MEDS: PROTEIN SUPPLEMENT (PROSTAT) 30 ML LIQUID GT SCH (21:28)
[2023-02-04] MEDS: MINERAL OIL/PETROLAT OPHT OINT 3.5 GM TUBE EACHEYE SCH (21:28)
[2023-02-05] MEDS: POLYVINYL ALCOHOL OPHT DROPS 15 ML BOTTLE EACHEYE SCH ×6 (03:30→23:30)
[2023-02-05] MEDS: OSMOLITE 1.2 CAL 1,000 ML LIQUID GT PRN (03:51)
[2023-02-05] MEDS: LEVOTHYROXINE SODIUM 125 MCG TABLET PO SCH (05:47)
[2023-02-05] MEDS: ALENDRONATE SODIUM 70 MG GT SCH (05:47)
[2023-02-05] MEDS: CARBIDOPA/LEVODOPA 25-100MG TABLET GT SCH ×3 (05:47→21:49)
[2023-02-05] MEDS: CALCIUM CARB/VITAMIN D 600-400 MG TABLET GT SCH ×2 (05:47→17:14)
[2023-02-05] MEDS: [UNRECOGNIZED DRUG - OTHER] GT SCH (05:47)
[2023-02-05] MEDS: FAMOTIDINE 20 MG TABLET GT SCH (05:47)
[2023-02-05 07:28] VITALS: TEMP 98.8
[2023-02-05] MEDS: HYDROGEN PEROXIDE 3% 118 ML BOTTLE TP SCH ×2 (09:00→19:10)
[2023-02-05] MEDS: VITAMINS A AND D OINT 42 GM TUBE TP SCH (09:18)
[2023-02-05] MEDS: [UNRECOGNIZED DRUG - OTHER] GT SCH ×2 (09:18→21:49)
[2023-02-05] MEDS: CLOTRIMAZOLE 1% CREAM 30 GM TUBE TP SCH ×2 (09:18→21:49)
[2023-02-05] MEDS: [UNRECOGNIZED DRUG - OTHER] GT SCH (09:18)
[2023-02-05] MEDS: COD LIVER OIL/ZINC OXIDE OINT 113 GM TUBE TP SCH ×2 (09:18→21:49)
[2023-02-05] MEDS: LOPERAMIDE HCL 2 MG/15 ML GT PRN (09:19)
[2023-02-05 14:13] VITALS: O2SAT 98
[2023-02-05 20:03] VITALS: TEMP 98.6
[2023-02-05 20:25] VITALS: O2SAT 99
[2023-02-05] MEDS: PROTEIN SUPPLEMENT (PROSTAT) 30 ML LIQUID GT SCH (21:49)
[2023-02-05] MEDS: MINERAL OIL/PETROLAT OPHT OINT 3.5 GM TUBE EACHEYE SCH (21:49)
[2023-02-06] MEDS: POLYVINYL ALCOHOL OPHT DROPS 15 ML BOTTLE EACHEYE SCH ×6 (03:30→23:30)
[2023-02-06] MEDS: [UNRECOGNIZED DRUG - OTHER] GT SCH (05:54)
[2023-02-06] MEDS: FAMOTIDINE 20 MG TABLET GT SCH (05:54)
[2023-02-06] MEDS: CALCIUM CARB/VITAMIN D 600-400 MG TABLET GT SCH ×2 (05:54→18:03)
[2023-02-06] MEDS: LEVOTHYROXINE SODIUM 125 MCG TABLET PO SCH (05:54)
[2023-02-06] MEDS: CARBIDOPA/LEVODOPA 25-100MG TABLET GT SCH ×3 (05:54→21:07)
[2023-02-06 07:31] VITALS: TEMP 98.2
[2023-02-06] MEDS: HYDROGEN PEROXIDE 3% 118 ML BOTTLE TP SCH ×2 (08:12→19:11)
[2023-02-06 08:13] VITALS: O2SAT 98
[2023-02-06] MEDS: [UNRECOGNIZED DRUG - OTHER] GT SCH (09:56)
[2023-02-06] MEDS: [UNRECOGNIZED DRUG - OTHER] GT SCH ×2 (09:56→21:06)
[2023-02-06] MEDS: VITAMINS A AND D OINT 42 GM TUBE TP SCH (09:56)
[2023-02-06] MEDS: COD LIVER OIL/ZINC OXIDE OINT 113 GM TUBE TP SCH ×2 (09:56→21:06)
[2023-02-06] MEDS: CLOTRIMAZOLE 1% CREAM 30 GM TUBE TP SCH ×2 (09:56→21:07)
[2023-02-06 16:57] VITALS: O2SAT 98
[2023-02-06 20:59] VITALS: O2SAT 99
[2023-02-06 21:03] VITALS: TEMP 97.6
[2023-02-06] MEDS: MINERAL OIL/PETROLAT OPHT OINT 3.5 GM TUBE EACHEYE SCH (21:06)
[2023-02-06] MEDS: PROTEIN SUPPLEMENT (PROSTAT) 30 ML LIQUID GT SCH (21:06)
[2023-02-07] MEDS: POLYVINYL ALCOHOL OPHT DROPS 15 ML BOTTLE EACHEYE SCH ×5 (03:30→19:30)
[2023-02-07] MEDS: CARBIDOPA/LEVODOPA 25-100MG TABLET GT SCH ×3 (06:08→21:48)
[2023-02-07] MEDS: LEVOTHYROXINE SODIUM 125 MCG TABLET PO SCH (06:08)
[2023-02-07] MEDS: FAMOTIDINE 20 MG TABLET GT SCH (06:08)
[2023-02-07] MEDS: [UNRECOGNIZED DRUG - OTHER] GT SCH (06:08)
[2023-02-07] MEDS: CALCIUM CARB/VITAMIN D 600-400 MG TABLET GT SCH ×2 (06:08→17:32)
[2023-02-07 08:00] VITALS: TEMP 98
[2023-02-07] MEDS: CLOTRIMAZOLE 1% CREAM 30 GM TUBE TP SCH ×2 (08:24→21:45)
[2023-02-07] MEDS: VITAMINS A AND D OINT 42 GM TUBE TP SCH (08:24)
[2023-02-07] MEDS: [UNRECOGNIZED DRUG - OTHER] GT SCH ×2 (08:24→21:44)
[2023-02-07] MEDS: [UNRECOGNIZED DRUG - OTHER] GT SCH (08:24)
[2023-02-07] MEDS: COD LIVER OIL/ZINC OXIDE OINT 113 GM TUBE TP SCH ×2 (08:24→21:44)
[2023-02-07] MEDS: HYDROGEN PEROXIDE 3% 118 ML BOTTLE TP SCH ×2 (09:46→21:00)
[2023-02-07 10:50] VITALS: O2SAT 98
[2023-02-07 20:54] VITALS: TEMP 98.4
[2023-02-07 21:00] VITALS: O2SAT 99
[2023-02-07] MEDS: MINERAL OIL/PETROLAT OPHT OINT 3.5 GM TUBE EACHEYE SCH (21:44)
[2023-02-07] MEDS: PROTEIN SUPPLEMENT (PROSTAT) 30 ML LIQUID GT SCH (21:44)
[2023-02-07] MEDS: diphenhydrAMINE 25 MG/10 ML UDC GT PRN (21:51)
[2023-02-08] MEDS: POLYVINYL ALCOHOL OPHT DROPS 15 ML BOTTLE EACHEYE SCH ×7 (00:08→23:30)
[2023-02-08] MEDS: CARBIDOPA/LEVODOPA 25-100MG TABLET GT SCH ×3 (05:39→21:10)
[2023-02-08] MEDS: FAMOTIDINE 20 MG TABLET GT SCH (05:39)
[2023-02-08] MEDS: CALCIUM CARB/VITAMIN D 600-400 MG TABLET GT SCH ×2 (05:39→17:07)
[2023-02-08] MEDS: LEVOTHYROXINE SODIUM 125 MCG TABLET PO SCH (05:39)
[2023-02-08] MEDS: [UNRECOGNIZED DRUG - OTHER] GT SCH (05:39)
[2023-02-08 07:30] VITALS: TEMP 98.3
[2023-02-08] MEDS: HYDROGEN PEROXIDE 3% 118 ML BOTTLE TP SCH ×2 (07:31→19:23)
[2023-02-08] MEDS: COD LIVER OIL/ZINC OXIDE OINT 113 GM TUBE TP SCH ×2 (08:56→21:09)
[2023-02-08] MEDS: VITAMINS A AND D OINT 42 GM TUBE TP SCH (08:56)
[2023-02-08] MEDS: [UNRECOGNIZED DRUG - OTHER] GT SCH ×2 (08:56→21:08)
[2023-02-08] MEDS: [UNRECOGNIZED DRUG - OTHER] GT SCH (08:56)
[2023-02-08] MEDS: CLOTRIMAZOLE 1% CREAM 30 GM TUBE TP SCH ×2 (08:56→21:10)
[2023-02-08] MEDS: diphenhydrAMINE 25 MG/10 ML UDC GT PRN ×2 (09:06→17:08)
[2023-02-08] MEDS: OSMOLITE 1.2 CAL 1,000 ML LIQUID GT PRN (09:10)
[2023-02-08 09:55] VITALS: O2SAT 98
[2023-02-08 20:00] VITALS: TEMP 97.6
[2023-02-08 21:00] VITALS: O2SAT 99
[2023-02-08] MEDS: MINERAL OIL/PETROLAT OPHT OINT 3.5 GM TUBE EACHEYE SCH (21:08)
[2023-02-08] MEDS: PROTEIN SUPPLEMENT (PROSTAT) 30 ML LIQUID GT SCH (21:09)
[2023-02-09] MEDS: POLYVINYL ALCOHOL OPHT DROPS 15 ML BOTTLE EACHEYE SCH ×6 (04:21→23:30)
[2023-02-09] MEDS: CALCIUM CARB/VITAMIN D 600-400 MG TABLET GT SCH ×2 (06:32→17:38)
[2023-02-09] MEDS: [UNRECOGNIZED DRUG - OTHER] GT SCH (06:32)
[2023-02-09] MEDS: CARBIDOPA/LEVODOPA 25-100MG TABLET GT SCH ×3 (06:33→21:52)
[2023-02-09] MEDS: FAMOTIDINE 20 MG TABLET GT SCH (06:33)
[2023-02-09] MEDS: LEVOTHYROXINE SODIUM 125 MCG TABLET PO SCH (06:33)
[2023-02-09 08:15] VITALS: TEMP 97.7
[2023-02-09] MEDS: [UNRECOGNIZED DRUG - OTHER] GT SCH ×2 (09:09→21:56)
[2023-02-09] MEDS: [UNRECOGNIZED DRUG - OTHER] GT SCH (09:11)
[2023-02-09] MEDS: COD LIVER OIL/ZINC OXIDE OINT 113 GM TUBE TP SCH ×4 (09:13→21:52)
[2023-02-09] MEDS: VITAMINS A AND D OINT 42 GM TUBE TP SCH (09:13)
[2023-02-09] MEDS: HYDROGEN PEROXIDE 3% 118 ML BOTTLE TP SCH ×2 (09:47→19:11)
[2023-02-09 14:30] VITALS: O2SAT 98
[2023-02-09] MEDS: MINERAL OIL/PETROLAT OPHT OINT 3.5 GM TUBE EACHEYE SCH (21:51)
[2023-02-09] MEDS: PROTEIN SUPPLEMENT (PROSTAT) 30 ML LIQUID GT SCH (21:52)
[2023-02-09 21:53] VITALS: TEMP 97.7
[2023-02-10] VITALS (7 sets, daily range): TEMP 98.8; O2SAT 97–98
[2023-02-10] MEDS: POLYVINYL ALCOHOL OPHT DROPS 15 ML BOTTLE EACHEYE SCH ×6 (03:32→23:30)
[2023-02-10] MEDS: LEVOTHYROXINE SODIUM 125 MCG TABLET PO SCH (05:28)
[2023-02-10] MEDS: CARBIDOPA/LEVODOPA 25-100MG TABLET GT SCH ×3 (05:28→22:10)
[2023-02-10] MEDS: CALCIUM CARB/VITAMIN D 600-400 MG TABLET GT SCH ×2 (05:28→17:05)
[2023-02-10] MEDS: [UNRECOGNIZED DRUG - OTHER] GT SCH (05:28)
[2023-02-10] MEDS: OSMOLITE 1.2 CAL 1,000 ML LIQUID GT PRN (05:30)
[2023-02-10] MEDS: FAMOTIDINE 20 MG TABLET GT SCH (05:30)
[2023-02-10] MEDS: [UNRECOGNIZED DRUG - OTHER] GT SCH ×2 (08:12→20:36)
[2023-02-10] MEDS: VITAMINS A AND D OINT 42 GM TUBE TP SCH (08:13)
[2023-02-10] MEDS: COD LIVER OIL/ZINC OXIDE OINT 113 GM TUBE TP SCH ×4 (08:13→20:36)
[2023-02-10] MEDS: [UNRECOGNIZED DRUG - OTHER] GT SCH (08:13)
[2023-02-10] MEDS: HYDROGEN PEROXIDE 3% 118 ML BOTTLE TP SCH ×2 (09:00→19:16)
[2023-02-10] MEDS: MINERAL OIL/PETROLAT OPHT OINT 3.5 GM TUBE EACHEYE SCH (20:36)
[2023-02-10] MEDS: PROTEIN SUPPLEMENT (PROSTAT) 30 ML LIQUID GT SCH (20:36)
[2023-02-11] MEDS: POLYVINYL ALCOHOL OPHT DROPS 15 ML BOTTLE EACHEYE SCH ×6 (03:46→23:30)
[2023-02-11] MEDS: LEVOTHYROXINE SODIUM 125 MCG TABLET PO SCH (05:07)
[2023-02-11] MEDS: [UNRECOGNIZED DRUG - OTHER] GT SCH (05:07)
[2023-02-11] MEDS: CARBIDOPA/LEVODOPA 25-100MG TABLET GT SCH ×3 (05:07→22:50)
[2023-02-11] MEDS: CALCIUM CARB/VITAMIN D 600-400 MG TABLET GT SCH ×2 (05:07→17:28)
[2023-02-11] MEDS: OSMOLITE 1.2 CAL 1,000 ML LIQUID GT PRN (05:08)
[2023-02-11] MEDS: FAMOTIDINE 20 MG TABLET GT SCH (05:32)
[2023-02-11 07:25] VITALS: TEMP 98.8
[2023-02-11 08:10] VITALS: O2SAT 98
[2023-02-11] MEDS: [UNRECOGNIZED DRUG - OTHER] GT SCH (08:27)
[2023-02-11] MEDS: COD LIVER OIL/ZINC OXIDE OINT 113 GM TUBE TP SCH ×4 (08:27→21:00)
[2023-02-11] MEDS: VITAMINS A AND D OINT 42 GM TUBE TP SCH (08:27)
[2023-02-11] MEDS: [UNRECOGNIZED DRUG - OTHER] GT SCH ×2 (08:27→21:00)
[2023-02-11] MEDS: HYDROGEN PEROXIDE 3% 118 ML BOTTLE TP SCH ×2 (09:00→19:03)
[2023-02-11 14:55] VITALS: O2SAT 98
[2023-02-11 20:00] VITALS: TEMP 96.9
[2023-02-11 20:25] VITALS: O2SAT 98
[2023-02-11] MEDS: PROTEIN SUPPLEMENT (PROSTAT) 30 ML LIQUID GT SCH (21:00)
[2023-02-11] MEDS: MINERAL OIL/PETROLAT OPHT OINT 3.5 GM TUBE EACHEYE SCH (21:00)
[2023-02-12] MEDS: POLYVINYL ALCOHOL OPHT DROPS 15 ML BOTTLE EACHEYE SCH ×5 (04:00→19:30)
[2023-02-12] MEDS: ALENDRONATE SODIUM 70 MG GT SCH (05:45)
[2023-02-12] MEDS: CALCIUM CARB/VITAMIN D 600-400 MG TABLET GT SCH ×2 (06:33→17:32)
[2023-02-12] MEDS: FAMOTIDINE 20 MG TABLET GT SCH (06:34)
[2023-02-12] MEDS: LEVOTHYROXINE SODIUM 125 MCG TABLET PO SCH (06:34)
[2023-02-12] MEDS: [UNRECOGNIZED DRUG - OTHER] GT SCH (06:34)
[2023-02-12] MEDS: CARBIDOPA/LEVODOPA 25-100MG TABLET GT SCH ×3 (06:34→22:05)
[2023-02-12] MEDS: OSMOLITE 1.2 CAL 1,000 ML LIQUID GT PRN (07:09)
[2023-02-12 07:29] VITALS: TEMP 98
[2023-02-12] MEDS: HYDROGEN PEROXIDE 3% 118 ML BOTTLE TP SCH ×2 (09:00→20:18)
[2023-02-12] MEDS: [UNRECOGNIZED DRUG - OTHER] GT SCH (09:28)
[2023-02-12] MEDS: VITAMINS A AND D OINT 42 GM TUBE TP SCH (09:28)
[2023-02-12] MEDS: [UNRECOGNIZED DRUG - OTHER] GT SCH ×2 (09:28→20:42)
[2023-02-12] MEDS: COD LIVER OIL/ZINC OXIDE OINT 113 GM TUBE TP SCH ×4 (09:28→20:42)
[2023-02-12 10:40] VITALS: O2SAT 97
[2023-02-12 20:00] VITALS: TEMP 99
[2023-02-12] MEDS: PROTEIN SUPPLEMENT (PROSTAT) 30 ML LIQUID GT SCH (20:42)
[2023-02-12] MEDS: MINERAL OIL/PETROLAT OPHT OINT 3.5 GM TUBE EACHEYE SCH (20:42)
[2023-02-12 22:01] VITALS: O2SAT 98
[2023-02-13] MEDS: POLYVINYL ALCOHOL OPHT DROPS 15 ML BOTTLE EACHEYE SCH ×7 (00:23→23:30)
[2023-02-13] MEDS: CALCIUM CARB/VITAMIN D 600-400 MG TABLET GT SCH ×2 (05:09→17:15)
[2023-02-13] MEDS: LEVOTHYROXINE SODIUM 125 MCG TABLET PO SCH (05:09)
[2023-02-13] MEDS: [UNRECOGNIZED DRUG - OTHER] GT SCH (05:09)
[2023-02-13] MEDS: CARBIDOPA/LEVODOPA 25-100MG TABLET GT SCH ×3 (05:09→21:44)
[2023-02-13] MEDS: OSMOLITE 1.2 CAL 1,000 ML LIQUID GT PRN (05:10)
[2023-02-13] MEDS: FAMOTIDINE 20 MG TABLET GT SCH (05:51)
[2023-02-13 07:27] VITALS: TEMP 97.8
[2023-02-13] MEDS: HYDROGEN PEROXIDE 3% 118 ML BOTTLE TP SCH ×2 (09:00→21:57)
[2023-02-13] MEDS: [UNRECOGNIZED DRUG - OTHER] GT SCH (09:05)
[2023-02-13] MEDS: [UNRECOGNIZED DRUG - OTHER] GT SCH ×2 (09:05→20:58)
[2023-02-13] MEDS: COD LIVER OIL/ZINC OXIDE OINT 113 GM TUBE TP SCH ×4 (09:06→20:58)
[2023-02-13] MEDS: VITAMINS A AND D OINT 42 GM TUBE TP SCH (09:06)
[2023-02-13 10:20] VITALS: O2SAT 97
[2023-02-13 20:00] VITALS: TEMP 98.8
[2023-02-13] MEDS: PROTEIN SUPPLEMENT (PROSTAT) 30 ML LIQUID GT SCH (20:58)
[2023-02-13] MEDS: MINERAL OIL/PETROLAT OPHT OINT 3.5 GM TUBE EACHEYE SCH (20:58)
[2023-02-14 00:21] VITALS: O2SAT 98
[2023-02-14] MEDS: OSMOLITE 1.2 CAL 1,000 ML LIQUID GT PRN (03:09)
[2023-02-14] MEDS: POLYVINYL ALCOHOL OPHT DROPS 15 ML BOTTLE EACHEYE SCH ×6 (03:41→23:38)
[2023-02-14] MEDS: CALCIUM CARB/VITAMIN D 600-400 MG TABLET GT SCH ×2 (05:38→17:37)
[2023-02-14] MEDS: LEVOTHYROXINE SODIUM 125 MCG TABLET PO SCH (05:38)
[2023-02-14] MEDS: CARBIDOPA/LEVODOPA 25-100MG TABLET GT SCH ×3 (05:38→21:42)
[2023-02-14] MEDS: FAMOTIDINE 20 MG TABLET GT SCH (05:38)
[2023-02-14] MEDS: [UNRECOGNIZED DRUG - OTHER] GT SCH (05:38)
[2023-02-14] MEDS: HYDROGEN PEROXIDE 3% 118 ML BOTTLE TP SCH ×2 (07:18→19:12)
[2023-02-14 07:43] VITALS: TEMP 97.5
[2023-02-14] MEDS: [UNRECOGNIZED DRUG - OTHER] GT SCH ×2 (08:43→20:41)
[2023-02-14] MEDS: [UNRECOGNIZED DRUG - OTHER] GT SCH (08:43)
[2023-02-14] MEDS: COD LIVER OIL/ZINC OXIDE OINT 113 GM TUBE TP SCH ×4 (08:43→20:41)
[2023-02-14] MEDS: VITAMINS A AND D OINT 42 GM TUBE TP SCH (08:43)
[2023-02-14 09:00] VITALS: O2SAT 97
[2023-02-14] MEDS: diphenhydrAMINE 25 MG/10 ML UDC GT PRN (16:27)
[2023-02-14 20:00] VITALS: TEMP 98.4
[2023-02-14] MEDS: MINERAL OIL/PETROLAT OPHT OINT 3.5 GM TUBE EACHEYE SCH (20:41)
[2023-02-14] MEDS: PROTEIN SUPPLEMENT (PROSTAT) 30 ML LIQUID GT SCH (20:41)
[2023-02-14 20:55] VITALS: O2SAT 98
[2023-02-15] MEDS: OSMOLITE 1.2 CAL 1,000 ML LIQUID GT PRN (02:36)
[2023-02-15] MEDS: POLYVINYL ALCOHOL OPHT DROPS 15 ML BOTTLE EACHEYE SCH ×6 (03:39→23:30)
[2023-02-15] MEDS: FAMOTIDINE 20 MG TABLET GT SCH (05:33)
[2023-02-15] MEDS: [UNRECOGNIZED DRUG - OTHER] GT SCH (05:33)
[2023-02-15] MEDS: CARBIDOPA/LEVODOPA 25-100MG TABLET GT SCH ×3 (05:33→21:22)
[2023-02-15] MEDS: LEVOTHYROXINE SODIUM 125 MCG TABLET PO SCH (05:33)
[2023-02-15] MEDS: CALCIUM CARB/VITAMIN D 600-400 MG TABLET GT SCH ×2 (05:33→18:05)
[2023-02-15 07:22] VITALS: O2SAT 98
[2023-02-15 08:02] VITALS: TEMP 98.2
[2023-02-15] MEDS: [UNRECOGNIZED DRUG - OTHER] GT SCH ×2 (09:00→21:22)
[2023-02-15] MEDS: [UNRECOGNIZED DRUG - OTHER] GT SCH (09:00)
[2023-02-15] MEDS: VITAMINS A AND D OINT 42 GM TUBE TP SCH (09:00)
[2023-02-15] MEDS: COD LIVER OIL/ZINC OXIDE OINT 113 GM TUBE TP SCH ×4 (09:00→21:22)
[2023-02-15] MEDS: HYDROGEN PEROXIDE 3% 118 ML BOTTLE TP SCH ×2 (09:30→19:10)
[2023-02-15 13:20] VITALS: O2SAT 98
[2023-02-15 20:00] VITALS: TEMP 98
[2023-02-15 20:30] VITALS: O2SAT 98
[2023-02-15] MEDS: PROTEIN SUPPLEMENT (PROSTAT) 30 ML LIQUID GT SCH (21:22)
[2023-02-15] MEDS: MINERAL OIL/PETROLAT OPHT OINT 3.5 GM TUBE EACHEYE SCH (21:22)
[2023-02-16] MEDS: OSMOLITE 1.2 CAL 1,000 ML LIQUID GT PRN (01:49)
[2023-02-16] MEDS: POLYVINYL ALCOHOL OPHT DROPS 15 ML BOTTLE EACHEYE SCH ×6 (04:27→23:30)
[2023-02-16] MEDS: LEVOTHYROXINE SODIUM 125 MCG TABLET PO SCH (05:12)
[2023-02-16] MEDS: CALCIUM CARB/VITAMIN D 600-400 MG TABLET GT SCH ×2 (05:12→17:56)
[2023-02-16] MEDS: [UNRECOGNIZED DRUG - OTHER] GT SCH (05:12)
[2023-02-16] MEDS: CARBIDOPA/LEVODOPA 25-100MG TABLET GT SCH ×3 (05:12→21:12)
[2023-02-16] MEDS: FAMOTIDINE 20 MG TABLET GT SCH (06:03)
[2023-02-16] MEDS: HYDROGEN PEROXIDE 3% 118 ML BOTTLE TP SCH ×2 (07:28→19:08)
[2023-02-16 07:29] VITALS: O2SAT 98
[2023-02-16 08:03] VITALS: TEMP 97.7
[2023-02-16] MEDS: [UNRECOGNIZED DRUG - OTHER] GT SCH (08:31)
[2023-02-16] MEDS: COD LIVER OIL/ZINC OXIDE OINT 113 GM TUBE TP SCH ×4 (08:31→21:12)
[2023-02-16] MEDS: VITAMINS A AND D OINT 42 GM TUBE TP SCH (08:31)
[2023-02-16] MEDS: [UNRECOGNIZED DRUG - OTHER] GT SCH ×2 (08:31→21:12)
[2023-02-16 20:38] VITALS: TEMP 99
[2023-02-16 20:50] VITALS: O2SAT 98
[2023-02-16] MEDS: PROTEIN SUPPLEMENT (PROSTAT) 30 ML LIQUID GT SCH (21:12)
[2023-02-16] MEDS: MINERAL OIL/PETROLAT OPHT OINT 3.5 GM TUBE EACHEYE SCH (21:12)
[2023-02-17] MEDS: OSMOLITE 1.2 CAL 1,000 ML LIQUID GT PRN (03:13)
[2023-02-17] MEDS: diphenhydrAMINE 25 MG/10 ML UDC GT PRN ×2 (03:14→13:49)
[2023-02-17] MEDS: POLYVINYL ALCOHOL OPHT DROPS 15 ML BOTTLE EACHEYE SCH ×6 (03:44→23:30)
[2023-02-17] MEDS: LEVOTHYROXINE SODIUM 125 MCG TABLET PO SCH (05:42)
[2023-02-17] MEDS: CARBIDOPA/LEVODOPA 25-100MG TABLET GT SCH ×3 (05:42→22:00)
[2023-02-17] MEDS: FAMOTIDINE 20 MG TABLET GT SCH (05:42)
[2023-02-17] MEDS: [UNRECOGNIZED DRUG - OTHER] GT SCH (05:42)
[2023-02-17] MEDS: CALCIUM CARB/VITAMIN D 600-400 MG TABLET GT SCH ×2 (05:42→18:21)
[2023-02-17 07:28] VITALS: TEMP 98
[2023-02-17] MEDS: HYDROGEN PEROXIDE 3% 118 ML BOTTLE TP SCH ×2 (08:03→21:20)
[2023-02-17] MEDS: [UNRECOGNIZED DRUG - OTHER] GT SCH ×2 (09:48→20:38)
[2023-02-17] MEDS: [UNRECOGNIZED DRUG - OTHER] GT SCH (09:49)
[2023-02-17] MEDS: NEOMY/BACITRA/POLYMYXIN B OINT UD PACKET TP SCH ×2 (09:49→20:38)
[2023-02-17] MEDS: COD LIVER OIL/ZINC OXIDE OINT 113 GM TUBE TP SCH ×4 (09:49→20:38)
[2023-02-17] MEDS: VITAMINS A AND D OINT 42 GM TUBE TP SCH (09:50)
[2023-02-17 12:53] VITALS: O2SAT 98
[2023-02-17] MEDS: MINERAL OIL/PETROLAT OPHT OINT 3.5 GM TUBE EACHEYE SCH (20:38)
[2023-02-17] MEDS: PROTEIN SUPPLEMENT (PROSTAT) 30 ML LIQUID GT SCH (20:38)
[2023-02-17 20:42] VITALS: TEMP 98.3
[2023-02-17 23:52] VITALS: O2SAT 97
[2023-02-18] MEDS: OSMOLITE 1.2 CAL 1,000 ML LIQUID GT PRN (01:30)
[2023-02-18] MEDS: POLYVINYL ALCOHOL OPHT DROPS 15 ML BOTTLE EACHEYE SCH ×6 (03:44→23:43)
[2023-02-18] MEDS: LEVOTHYROXINE SODIUM 125 MCG TABLET PO SCH (05:34)
[2023-02-18] MEDS: CARBIDOPA/LEVODOPA 25-100MG TABLET GT SCH ×3 (05:34→22:03)
[2023-02-18] MEDS: FAMOTIDINE 20 MG TABLET GT SCH (05:34)
[2023-02-18] MEDS: CALCIUM CARB/VITAMIN D 600-400 MG TABLET GT SCH ×2 (05:34→17:09)
[2023-02-18] MEDS: [UNRECOGNIZED DRUG - OTHER] GT SCH (05:34)
[2023-02-18 07:00] VITALS: O2SAT 98
[2023-02-18 07:28] VITALS: TEMP 97.8
[2023-02-18] MEDS: [UNRECOGNIZED DRUG - OTHER] GT SCH (08:42)
[2023-02-18] MEDS: [UNRECOGNIZED DRUG - OTHER] GT SCH ×2 (08:42→20:44)
[2023-02-18] MEDS: VITAMINS A AND D OINT 42 GM TUBE TP SCH (08:43)
[2023-02-18] MEDS: NEOMY/BACITRA/POLYMYXIN B OINT UD PACKET TP SCH ×2 (08:43→20:45)
[2023-02-18] MEDS: COD LIVER OIL/ZINC OXIDE OINT 113 GM TUBE TP SCH ×4 (08:43→20:45)
[2023-02-18] MEDS: HYDROGEN PEROXIDE 3% 118 ML BOTTLE TP SCH ×2 (09:00→19:19)
[2023-02-18 20:31] VITALS: TEMP 98.5
[2023-02-18] MEDS: MINERAL OIL/PETROLAT OPHT OINT 3.5 GM TUBE EACHEYE SCH (20:44)
[2023-02-18] MEDS: PROTEIN SUPPLEMENT (PROSTAT) 30 ML LIQUID GT SCH (20:44)
[2023-02-18] MEDS: diphenhydrAMINE 25 MG/10 ML UDC GT PRN (20:52)
[2023-02-18 21:15] VITALS: O2SAT 97
[2023-02-19] MEDS: POLYVINYL ALCOHOL OPHT DROPS 15 ML BOTTLE EACHEYE SCH ×6 (03:30→23:30)
[2023-02-19] MEDS: CALCIUM CARB/VITAMIN D 600-400 MG TABLET GT SCH ×3 (06:17→21:12)
[2023-02-19] MEDS: CARBIDOPA/LEVODOPA 25-100MG TABLET GT SCH ×3 (06:17→21:10)
[2023-02-19] MEDS: [UNRECOGNIZED DRUG - OTHER] GT SCH (06:17)
[2023-02-19] MEDS: ALENDRONATE SODIUM 70 MG GT SCH (06:17)
[2023-02-19] MEDS: FAMOTIDINE 20 MG TABLET GT SCH (06:18)
[2023-02-19] MEDS: LEVOTHYROXINE SODIUM 125 MCG TABLET PO SCH (06:18)
[2023-02-19] MEDS: HYDROGEN PEROXIDE 3% 118 ML BOTTLE TP SCH ×2 (08:58→19:10)
[2023-02-19] MEDS: [UNRECOGNIZED DRUG - OTHER] GT SCH (09:00)
[2023-02-19] MEDS: TRIAMCINOLONE ACET 0.1% CREAM 15 GM TUBE TP SCH ×4 (09:00→21:10)
[2023-02-19] MEDS: VITAMINS A AND D OINT 42 GM TUBE TP SCH (09:00)
[2023-02-19] MEDS: COD LIVER OIL/ZINC OXIDE OINT 113 GM TUBE TP SCH ×2 (09:00→21:10)
[2023-02-19] MEDS: [UNRECOGNIZED DRUG - OTHER] GT SCH ×2 (09:00→21:10)
[2023-02-19 13:25] VITALS: O2SAT 98
[2023-02-19 20:00] VITALS: TEMP 98.2
[2023-02-19 20:40] VITALS: O2SAT 97
[2023-02-19] MEDS: MINERAL OIL/PETROLAT OPHT OINT 3.5 GM TUBE EACHEYE SCH (21:08)
[2023-02-19] MEDS: PROTEIN SUPPLEMENT (PROSTAT) 30 ML LIQUID GT SCH (21:10)
[2023-02-20] MEDS: POLYVINYL ALCOHOL OPHT DROPS 15 ML BOTTLE EACHEYE SCH ×6 (03:30→23:30)
[2023-02-20] MEDS: [UNRECOGNIZED DRUG - OTHER] GT SCH (05:47)
[2023-02-20] MEDS: LEVOTHYROXINE SODIUM 125 MCG TABLET PO SCH (05:47)
[2023-02-20] MEDS: CARBIDOPA/LEVODOPA 25-100MG TABLET GT SCH ×3 (05:47→22:11)
[2023-02-20] MEDS: FAMOTIDINE 20 MG TABLET GT SCH (05:47)
[2023-02-20 08:00] VITALS: TEMP 98.7
[2023-02-20] MEDS: [UNRECOGNIZED DRUG - OTHER] GT SCH (08:26)
[2023-02-20] MEDS: [UNRECOGNIZED DRUG - OTHER] GT SCH ×2 (08:26→20:16)
[2023-02-20] MEDS: COD LIVER OIL/ZINC OXIDE OINT 113 GM TUBE TP SCH ×2 (08:29→20:17)
[2023-02-20] MEDS: TRIAMCINOLONE ACET 0.1% CREAM 15 GM TUBE TP SCH ×4 (09:00→20:17)
[2023-02-20] MEDS: VITAMINS A AND D OINT 42 GM TUBE TP SCH (09:00)
[2023-02-20] MEDS: HYDROGEN PEROXIDE 3% 118 ML BOTTLE TP SCH ×2 (09:31→19:08)
[2023-02-20 09:43] VITALS: O2SAT 98
[2023-02-20] MEDS: diphenhydrAMINE 25 MG/10 ML UDC GT PRN (12:11)
[2023-02-20] MEDS: LOPERAMIDE HCL 2 MG/15 ML GT PRN (12:11)
[2023-02-20] MEDS: CALCIUM CARB/VITAMIN D 600-400 MG TABLET GT SCH (18:32)
[2023-02-20 20:00] VITALS: TEMP 98.5
[2023-02-20] MEDS: PROTEIN SUPPLEMENT (PROSTAT) 30 ML LIQUID GT SCH (20:16)
[2023-02-20] MEDS: MINERAL OIL/PETROLAT OPHT OINT 3.5 GM TUBE EACHEYE SCH (20:16)
[2023-02-20 20:50] VITALS: O2SAT 97
[2023-02-21] MEDS: POLYVINYL ALCOHOL OPHT DROPS 15 ML BOTTLE EACHEYE SCH ×6 (03:30→23:30)
[2023-02-21] MEDS: FAMOTIDINE 20 MG TABLET GT SCH (05:46)
[2023-02-21] MEDS: CARBIDOPA/LEVODOPA 25-100MG TABLET GT SCH ×3 (05:46→22:27)
[2023-02-21] MEDS: LEVOTHYROXINE SODIUM 125 MCG TABLET PO SCH (05:46)
[2023-02-21] MEDS: [UNRECOGNIZED DRUG - OTHER] GT SCH (05:46)
[2023-02-21] MEDS: CALCIUM CARB/VITAMIN D 600-400 MG TABLET GT SCH ×2 (05:46→17:14)
[2023-02-21 08:00] VITALS: TEMP 97.5
[2023-02-21] MEDS: [UNRECOGNIZED DRUG - OTHER] GT SCH ×2 (08:42→20:42)
[2023-02-21] MEDS: VITAMINS A AND D OINT 42 GM TUBE TP SCH (08:43)
[2023-02-21] MEDS: [UNRECOGNIZED DRUG - OTHER] GT SCH (08:47)
[2023-02-21] MEDS: COD LIVER OIL/ZINC OXIDE OINT 113 GM TUBE TP SCH ×2 (09:00→20:42)
[2023-02-21] MEDS: TRIAMCINOLONE ACET 0.1% CREAM 15 GM TUBE TP SCH ×4 (09:00→20:42)
[2023-02-21] MEDS: HYDROGEN PEROXIDE 3% 118 ML BOTTLE TP SCH ×2 (09:43→20:19)
[2023-02-21 10:55] VITALS: O2SAT 97
[2023-02-21 20:00] VITALS: TEMP 96.1
[2023-02-21] MEDS: MINERAL OIL/PETROLAT OPHT OINT 3.5 GM TUBE EACHEYE SCH (20:42)
[2023-02-21] MEDS: PROTEIN SUPPLEMENT (PROSTAT) 30 ML LIQUID GT SCH (20:42)
[2023-02-21 20:56] VITALS: O2SAT 97
[2023-02-22] MEDS: POLYVINYL ALCOHOL OPHT DROPS 15 ML BOTTLE EACHEYE SCH ×6 (03:30→23:33)
[2023-02-22] MEDS: CARBIDOPA/LEVODOPA 25-100MG TABLET GT SCH ×3 (06:38→22:00)
[2023-02-22] MEDS: LEVOTHYROXINE SODIUM 125 MCG TABLET PO SCH (06:38)
[2023-02-22] MEDS: [UNRECOGNIZED DRUG - OTHER] GT SCH (06:38)
[2023-02-22] MEDS: CALCIUM CARB/VITAMIN D 600-400 MG TABLET GT SCH ×2 (06:38→17:11)
[2023-02-22] MEDS: FAMOTIDINE 20 MG TABLET GT SCH (06:38)
[2023-02-22] MEDS: OSMOLITE 1.2 CAL 1,000 ML LIQUID GT PRN (07:13)
[2023-02-22] MEDS: HYDROGEN PEROXIDE 3% 118 ML BOTTLE TP SCH ×2 (07:25→21:37)
[2023-02-22 08:57] VITALS: TEMP 98
[2023-02-22] MEDS: [UNRECOGNIZED DRUG - OTHER] GT SCH (09:53)
[2023-02-22] MEDS: TRIAMCINOLONE ACET 0.1% CREAM 15 GM TUBE TP SCH ×4 (09:53→21:00)
[2023-02-22] MEDS: [UNRECOGNIZED DRUG - OTHER] GT SCH ×2 (09:53→21:00)
[2023-02-22] MEDS: COD LIVER OIL/ZINC OXIDE OINT 113 GM TUBE TP SCH ×2 (09:53→21:00)
[2023-02-22] MEDS: VITAMINS A AND D OINT 42 GM TUBE TP SCH (09:54)
[2023-02-22 10:36] VITALS: O2SAT 98
[2023-02-22] MEDS: LOPERAMIDE HCL 2 MG/15 ML GT PRN (11:18)
[2023-02-22] MEDS: diphenhydrAMINE 25 MG/10 ML UDC GT PRN (11:18)
[2023-02-22 20:00] VITALS: TEMP 96.8
[2023-02-22] MEDS: MINERAL OIL/PETROLAT OPHT OINT 3.5 GM TUBE EACHEYE SCH (21:00)
[2023-02-22] MEDS: PROTEIN SUPPLEMENT (PROSTAT) 30 ML LIQUID GT SCH (21:00)
[2023-02-22 21:37] VITALS: O2SAT 99
[2023-02-23] MEDS ORDERED: DIATR MEGLU/DIATRIZOATE SODIUM 30 ML BOTTLE ONE (01:10)
[2023-02-23] MEDS: POLYVINYL ALCOHOL OPHT DROPS 15 ML BOTTLE EACHEYE SCH ×3 (03:24→11:30)
[2023-02-23 08:07] VITALS: TEMP 98.8
[2023-02-23] MEDS: VITAMINS A AND D OINT 42 GM TUBE TP SCH (09:00)
[2023-02-23] MEDS: COD LIVER OIL/ZINC OXIDE OINT 113 GM TUBE TP SCH ×2 (09:00→21:42)
[2023-02-23] MEDS: [UNRECOGNIZED DRUG - OTHER] GT SCH ×2 (09:00→21:00)
[2023-02-23] MEDS: [UNRECOGNIZED DRUG - OTHER] GT SCH (09:00)
[2023-02-23] MEDS: TRIAMCINOLONE ACET 0.1% CREAM 15 GM TUBE TP SCH ×4 (09:00→21:43)
[2023-02-23] MEDS: HYDROGEN PEROXIDE 3% 118 ML BOTTLE TP SCH ×2 (09:17→19:11)
[2023-02-23 11:09] VITALS: O2SAT 98
[2023-02-23] MEDS: OSMOLITE 1.2 CAL 1,000 ML LIQUID GT PRN (13:24)
[2023-02-23] MEDS: CARBIDOPA/LEVODOPA 25-100MG TABLET GT SCH ×2 (14:00→21:43)
[2023-02-23 20:00] VITALS: TEMP 98.8
[2023-02-23 21:04] VITALS: O2SAT 99
[2023-02-23] MEDS: PROTEIN SUPPLEMENT (PROSTAT) 30 ML LIQUID GT SCH (21:41)
[2023-02-23] MEDS: MINERAL OIL/PETROLAT OPHT OINT 3.5 GM TUBE EACHEYE SCH (21:41)
[2023-02-24] MEDS: POLYVINYL ALCOHOL OPHT DROPS 15 ML BOTTLE EACHEYE SCH ×6 (00:19→23:30)
[2023-02-24] MEDS: diphenhydrAMINE 25 MG/10 ML UDC GT PRN (04:40)
[2023-02-24] MEDS: LOPERAMIDE HCL 2 MG/15 ML GT PRN (04:40)
[2023-02-24] MEDS: CALCIUM CARB/VITAMIN D 600-400 MG TABLET GT SCH ×2 (05:08→18:21)
[2023-02-24] MEDS: [UNRECOGNIZED DRUG - OTHER] GT SCH (05:08)
[2023-02-24] MEDS: LEVOTHYROXINE SODIUM 125 MCG TABLET PO SCH (05:09)
[2023-02-24] MEDS: FAMOTIDINE 20 MG TABLET GT SCH (05:59)
[2023-02-24] MEDS: CARBIDOPA/LEVODOPA 25-100MG TABLET GT SCH ×3 (05:59→21:34)
[2023-02-24] MEDS: HYDROGEN PEROXIDE 3% 118 ML BOTTLE TP SCH ×2 (07:09→20:53)
[2023-02-24 08:00] VITALS: TEMP 97.2
[2023-02-24] MEDS: [UNRECOGNIZED DRUG - OTHER] GT SCH (08:16)
[2023-02-24] MEDS: VITAMINS A AND D OINT 42 GM TUBE TP SCH (08:17)
[2023-02-24] MEDS: [UNRECOGNIZED DRUG - OTHER] GT SCH ×2 (08:17→21:00)
[2023-02-24] MEDS: TRIAMCINOLONE ACET 0.1% CREAM 15 GM TUBE TP SCH ×4 (08:17→21:34)
[2023-02-24] MEDS: COD LIVER OIL/ZINC OXIDE OINT 113 GM TUBE TP SCH ×2 (08:17→21:34)
[2023-02-24 10:40] VITALS: O2SAT 99
[2023-02-24] MEDS: OSMOLITE 1.2 CAL 1,000 ML LIQUID GT PRN (13:18)
[2023-02-24 19:45] VITALS: O2SAT 99
[2023-02-24 20:00] VITALS: TEMP 98.4
[2023-02-24] MEDS: MINERAL OIL/PETROLAT OPHT OINT 3.5 GM TUBE EACHEYE SCH (21:33)
[2023-02-24] MEDS: PROTEIN SUPPLEMENT (PROSTAT) 30 ML LIQUID GT SCH (21:34)
[2023-02-25] MEDS: POLYVINYL ALCOHOL OPHT DROPS 15 ML BOTTLE EACHEYE SCH ×6 (03:55→23:30)
[2023-02-25] MEDS: CALCIUM CARB/VITAMIN D 600-400 MG TABLET GT SCH ×2 (05:37→17:04)
[2023-02-25] MEDS: LEVOTHYROXINE SODIUM 125 MCG TABLET PO SCH (05:37)
[2023-02-25] MEDS: FAMOTIDINE 20 MG TABLET GT SCH (05:37)
[2023-02-25] MEDS: [UNRECOGNIZED DRUG - OTHER] GT SCH (05:37)
[2023-02-25] MEDS: CARBIDOPA/LEVODOPA 25-100MG TABLET GT SCH ×3 (05:37→21:46)
[2023-02-25] MEDS: HYDROGEN PEROXIDE 3% 118 ML BOTTLE TP SCH ×2 (07:35→19:16)
[2023-02-25] MEDS: TRIAMCINOLONE ACET 0.1% CREAM 15 GM TUBE TP SCH ×4 (08:44→21:46)
[2023-02-25] MEDS: VITAMINS A AND D OINT 42 GM TUBE TP SCH (08:44)
[2023-02-25] MEDS: COD LIVER OIL/ZINC OXIDE OINT 113 GM TUBE TP SCH ×2 (08:45→21:46)
[2023-02-25] MEDS: [UNRECOGNIZED DRUG - OTHER] GT SCH ×2 (08:46→21:00)
[2023-02-25] MEDS: [UNRECOGNIZED DRUG - OTHER] GT SCH (08:49)
[2023-02-25 10:20] VITALS: O2SAT 99
[2023-02-25] MEDS: OSMOLITE 1.2 CAL 1,000 ML LIQUID GT PRN (13:40)
[2023-02-25] MEDS: LOPERAMIDE HCL 2 MG/15 ML GT PRN (13:58)
[2023-02-25 17:32] VITALS: TEMP 98
[2023-02-25 20:00] VITALS: TEMP 98.2
[2023-02-25 20:50] VITALS: O2SAT 99
[2023-02-25] MEDS: MINERAL OIL/PETROLAT OPHT OINT 3.5 GM TUBE EACHEYE SCH (21:45)
[2023-02-25] MEDS: PROTEIN SUPPLEMENT (PROSTAT) 30 ML LIQUID GT SCH (21:45)
[2023-02-26] MEDS: POLYVINYL ALCOHOL OPHT DROPS 15 ML BOTTLE EACHEYE SCH ×6 (03:30→23:30)
[2023-02-26] MEDS: [UNRECOGNIZED DRUG - OTHER] GT SCH (06:04)
[2023-02-26] MEDS: CARBIDOPA/LEVODOPA 25-100MG TABLET GT SCH ×3 (06:04→22:09)
[2023-02-26] MEDS: FAMOTIDINE 20 MG TABLET GT SCH (06:04)
[2023-02-26] MEDS: ALENDRONATE SODIUM 70 MG GT SCH (06:04)
[2023-02-26] MEDS: CALCIUM CARB/VITAMIN D 600-400 MG TABLET GT SCH ×2 (06:04→17:14)
[2023-02-26] MEDS: LEVOTHYROXINE SODIUM 125 MCG TABLET PO SCH (06:04)
[2023-02-26] MEDS: HYDROGEN PEROXIDE 3% 118 ML BOTTLE TP SCH ×2 (07:26→19:03)
[2023-02-26 08:00] VITALS: TEMP 97.4
[2023-02-26] MEDS: [UNRECOGNIZED DRUG - OTHER] GT SCH ×2 (09:00→20:51)
[2023-02-26] MEDS: TRIAMCINOLONE ACET 0.1% CREAM 15 GM TUBE TP SCH ×4 (09:22→20:52)
[2023-02-26] MEDS: COD LIVER OIL/ZINC OXIDE OINT 113 GM TUBE TP SCH ×2 (09:22→20:52)
[2023-02-26] MEDS: VITAMINS A AND D OINT 42 GM TUBE TP SCH (09:22)
[2023-02-26] MEDS: [UNRECOGNIZED DRUG - OTHER] GT SCH (09:22)
[2023-02-26 10:40] VITALS: O2SAT 98
[2023-02-26] MEDS: OSMOLITE 1.2 CAL 1,000 ML LIQUID GT PRN (13:10)
[2023-02-26 20:00] VITALS: TEMP 97.2
[2023-02-26 20:45] VITALS: O2SAT 99
[2023-02-26] MEDS: MINERAL OIL/PETROLAT OPHT OINT 3.5 GM TUBE EACHEYE SCH (20:51)
[2023-02-26] MEDS: PROTEIN SUPPLEMENT (PROSTAT) 30 ML LIQUID GT SCH (20:51)
[2023-02-27] MEDS: POLYVINYL ALCOHOL OPHT DROPS 15 ML BOTTLE EACHEYE SCH ×6 (04:21→23:30)
[2023-02-27] MEDS: CALCIUM CARB/VITAMIN D 600-400 MG TABLET GT SCH ×2 (06:02→17:10)
[2023-02-27] MEDS: FAMOTIDINE 20 MG TABLET GT SCH (06:02)
[2023-02-27] MEDS: LEVOTHYROXINE SODIUM 125 MCG TABLET PO SCH (06:02)
[2023-02-27] MEDS: [UNRECOGNIZED DRUG - OTHER] GT SCH (06:02)
[2023-02-27] MEDS: CARBIDOPA/LEVODOPA 25-100MG TABLET GT SCH ×3 (06:02→21:06)
[2023-02-27 07:59] VITALS: TEMP 98.8
[2023-02-27 08:12] VITALS: O2SAT 98
[2023-02-27] MEDS: HYDROGEN PEROXIDE 3% 118 ML BOTTLE TP SCH ×2 (08:12→21:00)
[2023-02-27] MEDS: [UNRECOGNIZED DRUG - OTHER] GT SCH ×2 (08:50→21:04)
[2023-02-27] MEDS: COD LIVER OIL/ZINC OXIDE OINT 113 GM TUBE TP SCH ×2 (08:51→21:05)
[2023-02-27] MEDS: [UNRECOGNIZED DRUG - OTHER] GT SCH (08:51)
[2023-02-27] MEDS: TRIAMCINOLONE ACET 0.1% CREAM 15 GM TUBE TP SCH ×4 (08:51→21:06)
[2023-02-27] MEDS: VITAMINS A AND D OINT 42 GM TUBE TP SCH (08:51)
[2023-02-27 20:00] VITALS: TEMP 98.8
[2023-02-27 20:05] VITALS: O2SAT 98
[2023-02-27] MEDS: MINERAL OIL/PETROLAT OPHT OINT 3.5 GM TUBE EACHEYE SCH (21:04)
[2023-02-27] MEDS: PROTEIN SUPPLEMENT (PROSTAT) 30 ML LIQUID GT SCH (21:05)
[2023-02-28] MEDS: POLYVINYL ALCOHOL OPHT DROPS 15 ML BOTTLE EACHEYE SCH ×6 (03:30→23:30)
[2023-02-28] MEDS: FAMOTIDINE 20 MG TABLET GT SCH (05:47)
[2023-02-28] MEDS: LEVOTHYROXINE SODIUM 125 MCG TABLET PO SCH (05:47)
[2023-02-28] MEDS: CALCIUM CARB/VITAMIN D 600-400 MG TABLET GT SCH ×2 (05:47→17:05)
[2023-02-28] MEDS: [UNRECOGNIZED DRUG - OTHER] GT SCH (05:47)
[2023-02-28] MEDS: CARBIDOPA/LEVODOPA 25-100MG TABLET GT SCH ×3 (05:47→22:00)
[2023-02-28] MEDS: HYDROGEN PEROXIDE 3% 118 ML BOTTLE TP SCH ×3 (07:16→19:07)
[2023-02-28 08:03] VITALS: TEMP 97.8
[2023-02-28] MEDS: [UNRECOGNIZED DRUG - OTHER] GT SCH (08:23)
[2023-02-28] MEDS: VITAMINS A AND D OINT 42 GM TUBE TP SCH (08:23)
[2023-02-28] MEDS: [UNRECOGNIZED DRUG - OTHER] GT SCH ×2 (08:23→20:40)
[2023-02-28] MEDS: COD LIVER OIL/ZINC OXIDE OINT 113 GM TUBE TP SCH ×2 (08:23→20:40)
[2023-02-28] MEDS: TRIAMCINOLONE ACET 0.1% CREAM 15 GM TUBE TP SCH ×4 (08:23→20:40)
[2023-02-28 10:03] VITALS: O2SAT 98
[2023-02-28 20:00] VITALS: TEMP 98.6
[2023-02-28 20:20] VITALS: O2SAT 99
[2023-02-28] MEDS: MINERAL OIL/PETROLAT OPHT OINT 3.5 GM TUBE EACHEYE SCH (20:40)
[2023-02-28] MEDS: PROTEIN SUPPLEMENT (PROSTAT) 30 ML LIQUID GT SCH (20:40)
[2023-03-01] MEDS: POLYVINYL ALCOHOL OPHT DROPS 15 ML BOTTLE EACHEYE SCH ×5 (03:30→19:30)
[2023-03-01] MEDS: CALCIUM CARB/VITAMIN D 600-400 MG TABLET GT SCH ×2 (05:37→18:02)
[2023-03-01] MEDS: CARBIDOPA/LEVODOPA 25-100MG TABLET GT SCH ×3 (05:37→21:26)
[2023-03-01] MEDS: FAMOTIDINE 20 MG TABLET GT SCH (05:37)
[2023-03-01] MEDS: [UNRECOGNIZED DRUG - OTHER] GT SCH (05:37)
[2023-03-01] MEDS: LEVOTHYROXINE SODIUM 125 MCG TABLET PO SCH (05:37)
[2023-03-01 08:00] VITALS: TEMP 98.2
[2023-03-01] MEDS: HYDROGEN PEROXIDE 3% 118 ML BOTTLE TP SCH ×2 (08:17→19:12)
[2023-03-01] MEDS: COD LIVER OIL/ZINC OXIDE OINT 113 GM TUBE TP SCH ×2 (09:00→21:23)
[2023-03-01] MEDS: [UNRECOGNIZED DRUG - OTHER] GT SCH (09:00)
[2023-03-01] MEDS: [UNRECOGNIZED DRUG - OTHER] GT SCH ×2 (09:00→21:23)
[2023-03-01] MEDS: VITAMINS A AND D OINT 42 GM TUBE TP SCH (09:00)
[2023-03-01] MEDS: TRIAMCINOLONE ACET 0.1% CREAM 15 GM TUBE TP SCH ×4 (09:00→21:25)
[2023-03-01] MEDS: OSMOLITE 1.2 CAL 1,000 ML LIQUID GT PRN (10:19)
[2023-03-01 11:39] VITALS: O2SAT 98
[2023-03-01] MEDS: diphenhydrAMINE 25 MG/10 ML UDC GT PRN (15:02)
[2023-03-01 19:15] VITALS: TEMP 97.4
[2023-03-01 20:55] VITALS: O2SAT 99
[2023-03-01] MEDS: MINERAL OIL/PETROLAT OPHT OINT 3.5 GM TUBE EACHEYE SCH (21:23)
[2023-03-01] MEDS: PROTEIN SUPPLEMENT (PROSTAT) 30 ML LIQUID GT SCH (21:23)
[2023-03-02] MEDS: POLYVINYL ALCOHOL OPHT DROPS 15 ML BOTTLE EACHEYE SCH ×7 (00:05→23:30)
[2023-03-02] MEDS: LEVOTHYROXINE SODIUM 125 MCG TABLET PO SCH (05:21)
[2023-03-02] MEDS: CALCIUM CARB/VITAMIN D 600-400 MG TABLET GT SCH ×2 (05:21→17:01)
[2023-03-02] MEDS: [UNRECOGNIZED DRUG - OTHER] GT SCH (05:21)
[2023-03-02] MEDS: CARBIDOPA/LEVODOPA 25-100MG TABLET GT SCH ×3 (05:21→22:55)
[2023-03-02] MEDS: FAMOTIDINE 20 MG TABLET GT SCH (06:00)
[2023-03-02] MEDS: HYDROGEN PEROXIDE 3% 118 ML BOTTLE TP SCH ×2 (07:10→19:09)
[2023-03-02 07:40] VITALS: O2SAT 98
[2023-03-02 07:58] VITALS: TEMP 98.3
[2023-03-02] MEDS: COD LIVER OIL/ZINC OXIDE OINT 113 GM TUBE TP SCH ×2 (08:36→21:00)
[2023-03-02] MEDS: [UNRECOGNIZED DRUG - OTHER] GT SCH ×2 (08:36→21:00)
[2023-03-02] MEDS: [UNRECOGNIZED DRUG - OTHER] GT SCH (08:36)
[2023-03-02] MEDS: TRIAMCINOLONE ACET 0.1% CREAM 15 GM TUBE TP SCH ×4 (08:36→21:00)
[2023-03-02] MEDS: VITAMINS A AND D OINT 42 GM TUBE TP SCH (08:37)
[2023-03-02] MEDS: diphenhydrAMINE 25 MG/10 ML UDC GT PRN (17:01)
[2023-03-02 20:00] VITALS: TEMP 98.8
[2023-03-02 20:45] VITALS: O2SAT 99
[2023-03-02] MEDS: MINERAL OIL/PETROLAT OPHT OINT 3.5 GM TUBE EACHEYE SCH (21:00)
[2023-03-02] MEDS: PROTEIN SUPPLEMENT (PROSTAT) 30 ML LIQUID GT SCH (21:00)
[2023-03-03] MEDS: POLYVINYL ALCOHOL OPHT DROPS 15 ML BOTTLE EACHEYE SCH ×6 (03:30→23:43)
[2023-03-03] MEDS: [UNRECOGNIZED DRUG - OTHER] GT SCH (05:49)
[2023-03-03] MEDS: CALCIUM CARB/VITAMIN D 600-400 MG TABLET GT SCH ×2 (05:49→17:04)
[2023-03-03] MEDS: FAMOTIDINE 20 MG TABLET GT SCH (05:51)
[2023-03-03] MEDS: LEVOTHYROXINE SODIUM 125 MCG TABLET PO SCH (05:51)
[2023-03-03] MEDS: CARBIDOPA/LEVODOPA 25-100MG TABLET GT SCH ×3 (05:51→22:00)
[2023-03-03 07:23] VITALS: TEMP 98.8
[2023-03-03] MEDS: HYDROGEN PEROXIDE 3% 118 ML BOTTLE TP SCH ×2 (07:32→19:07)
[2023-03-03] MEDS: [UNRECOGNIZED DRUG - OTHER] GT SCH ×2 (08:46→20:33)
[2023-03-03] MEDS: COD LIVER OIL/ZINC OXIDE OINT 113 GM TUBE TP SCH ×2 (08:48→20:33)
[2023-03-03] MEDS: [UNRECOGNIZED DRUG - OTHER] GT SCH (08:48)
[2023-03-03] MEDS: TRIAMCINOLONE ACET 0.1% CREAM 15 GM TUBE TP SCH ×4 (08:49→20:34)
[2023-03-03] MEDS: VITAMINS A AND D OINT 42 GM TUBE TP SCH (08:49)
[2023-03-03 10:20] VITALS: O2SAT 98
[2023-03-03] MEDS: OSMOLITE 1.2 CAL 1,000 ML LIQUID GT PRN (11:21)
[2023-03-03] MEDS: PROTEIN SUPPLEMENT (PROSTAT) 30 ML LIQUID GT SCH (20:33)
[2023-03-03] MEDS: MINERAL OIL/PETROLAT OPHT OINT 3.5 GM TUBE EACHEYE SCH (20:33)
[2023-03-03 21:00] VITALS: O2SAT 99
[2023-03-04 02:07] VITALS: TEMP 97.8
[2023-03-04] MEDS: POLYVINYL ALCOHOL OPHT DROPS 15 ML BOTTLE EACHEYE SCH (02:59)
[2023-03-04] MEDS: FAMOTIDINE 20 MG TABLET GT SCH (05:40)
[2023-03-04] MEDS: CALCIUM CARB/VITAMIN D 600-400 MG TABLET GT SCH (05:40)
[2023-03-04] MEDS: LEVOTHYROXINE SODIUM 125 MCG TABLET PO SCH (05:40)
[2023-03-04] MEDS: [UNRECOGNIZED DRUG - OTHER] GT SCH (05:40)
[2023-03-04] MEDS: CARBIDOPA/LEVODOPA 25-100MG TABLET GT SCH (05:40)
== END 2023-03-02 23:59 | disposition still patient (30) | DRG 189 ==
LOC: SA → UNDOADMIN 03-05 06:43 → SA 03-05 06:43 → SA1 09-26 21:09 → SA 09-29 18:02
PROVIDERS: ADMIT Internal Medicine Pulmonary Disease; ATTEND Internal Medicine Pulmonary Disease
DX: J96.11 Chronic respiratory failure with hypoxia (principal); R53.2 Functional quadriplegia; D68.69 Other thrombophilia; J84.9 Interstitial pulmonary disease, unspecified; Z99.11 Dependence on respirator [ventilator] status; G93.49 Other encephalopathy; D68.59 Other primary thrombophilia; E87.0 Hyperosmolality and hypernatremia; G93.40 Encephalopathy, unspecified; J98.11 Atelectasis; E03.9 Hypothyroidism, unspecified; I27.20 Pulmonary hypertension, unspecified; Z86.11 Personal history of tuberculosis; Z86.73 Personal history of transient ischemic attack (TIA), and cerebral infarction without residual deficits; Z87.01 Personal history of pneumonia (recurrent); Z87.442 Personal history of urinary calculi; Z87.440 Personal history of urinary (tract) infections; Z93.0 Tracheostomy status; Z93.1 Gastrostomy status; R13.10 Dysphagia, unspecified; M81.0 Age-related osteoporosis without current pathological fracture; Z86.61 Personal history of infections of the central nervous system; F09 Unspecified mental disorder due to known physiological condition; Z20.822 Contact with and (suspected) exposure to COVID-19; E78.1 Pure hyperglyceridemia; G20.A1 Parkinson's disease without dyskinesia, without mention of fluctuations; B96.4 Proteus (mirabilis) (morganii) as the cause of diseases classified elsewhere; E11.65 Type 2 diabetes mellitus with hyperglycemia; E55.9 Vitamin D deficiency, unspecified; Z88.6 Allergy status to analgesic agent; K21.9 Gastro-esophageal reflux disease without esophagitis; L29.9 Pruritus, unspecified
CPT/HCPCS: 36415; 71045; 74018; 83735; 84100; 84443; 85025; 86140; 90686; 94640; A4663; A6209; A6213; C1758; J0696; J2185; J3590; Q9963; U0003

== ENCOUNTER 2022-08-06 12:43 | Outpatient (CLI) | payer OTHER | END 2022-08-06 23:59 | disposition home or self-care (01) | LOC: CT 12:43 | PROVIDERS: ATTEND Internal Medicine Pulmonary Disease | DX: R91.8 Other nonspecific abnormal finding of lung field (principal); J84.10 Pulmonary fibrosis, unspecified | CPT/HCPCS: 71250 ==